=== PATIENT | female | born 1985 | race Caucasian/White ===

== ENCOUNTER → 2016-11-29 | Outpatient (CLI) | payer OTHER ==
--- NOTE | 2016-11-29 14:08 | CT ---
EXAMINATION TYPE: CT brain wo con DATE OF EXAM: 11/29/2016 COMPARISON: NONE HISTORY: Memory loss CT DLP: 943.9 mGycm. Automated Exposure Control for Dose Reduction was Utilized. TECHNIQUE: CT scan of the head is performed without contrast. FINDINGS: There is no acute intracranial hemorrhage, mass effect, or midline shift identified. The ventricles and sulci are within normal limits in size. The globes are intact and the visualized sin uses are clear. There is subcutaneous calcifications. No midline shift. Calvarium intact. Changes of chronic sinusitis. IMPRESSION: 1. No acute intracranial hemorrhage, mass effect, or midline shift is seen. If symptoms persist consi michael MRI.
== END | disposition home or self-care (01) ==
LOC: EEVIPCON 13:00 → RADCTMAIN 13:05
PROVIDERS: ATTEND Internal Medicine
DX: R41.3 Other amnesia (principal)
CPT/HCPCS: 70450

== ENCOUNTER 2018-02-15 05:50 | Inpatient (IN) | payer OTHER ==
[2018-02-15] MEDS ORDERED: SODIUM CHLORIDE 0.9% 2,000 ML IV STA (06:12)
--- NOTE | 2018-02-15 06:13 | ED ---
General Adult HPI - General Chief complaint: Recheck/Abnormal Lab/Rx Stated complaint: Abnormal Labs Time Seen by Provider: 02/15/18 06:11 Source: patient, EMS Mode of arrival: EMS Limitations: altered mental status - History of Present Illness Initial comments: Radha is a pleasant 32-year-old female with a history of stroke and memory impairment. She has brought to the ED today via EMS from a longterm facility where she currently resides. Outpatient labs revealed significant lab abnormalities. Patient has no history of kidney disease, her most recent labs in our computer system was in November 2017. Patient had labs drawn yesterday which revealed with critical abnormalities including a BUN of greater than 130 and a creatinine of greater than 13. Patient reports she is feeling okay, she was sleeping comfortably when she was woken from her sleep and transferred to the emergency department for evaluation. Patient reports that she wears a diaper she's had multiple wet diapers throughout the day and she still making plenty of urine. believe she's been eating and drinking okay that she can't really recall anything she ate or drink in the past day she states that she has had her meals at her facility so she is certain she is getting plenty of food and water. - Related Data Home Medications Medication Instructions Recorded Confirmed HYDROcodone/APAP 10-325MG [[place] 1 tab PO Q4H PRN 10/18/14 02/15/18 10-325] Acetaminophen Tab [Tylenol] 650 mg PO Q6H 02/15/18 02/15/18 Clopidogrel [Plavix] 75 mg PO DAILY 02/15/18 02/15/18 Ergocalciferol (Vitamin D2) 50,000 unit PO Q28H 02/15/18 02/15/18 [Drisdol] FLUoxetine HCL [PROzac] 20 mg PO HS PRN 02/15/18 02/15/18 Ibuprofen [Motrin Ib] 400 mg PO Q12HR PRN 02/15/18 02/15/18 Levothyroxine Sodium [Synthroid] 25 mcg PO DAILY 02/15/18 02/15/18 Loperamide [Imodium] 2 mg PO Q8HR PRN 02/15/18 02/15/18 Loperamide [Imodium] 4 mg PO DAILY PRN 02/15/18 02/15/18 Magnesium Hydroxide [Milk of 2,400 mg PO Q72H PRN 02/15/18 02/15/18 Magnesia] Melatonin 5 mg PO HS PRN 02/15/18 02/15/18 Midodrine HCl 5 mg PO TID@0800,1200,1900 02/15/18 02/15/18 Multivitamins, Thera [Multivitamin 1 tab PO DAILY 02/15/18 02/15/18 (formulary)] Sennosides [Senokot] 8.6 mg PO BID 02/15/18 02/15/18 clonazePAM [KlonoPIN] 0.5 mg PO BID PRN 02/15/18 02/15/18 clonazePAM [KlonoPIN] 1.5 mg PO HS PRN 02/15/18 02/15/18 Allergies Allergy/AdvReac Type Severity Reaction Status Date / Time aspirin Allergy Unknown Verified 02/15/18 07:56 gabapentin [From Neurontin] Allergy Unknown Verified 02/15/18 07:56 ibuprofen [From Motrin] Allergy Unknown Verified 02/15/18 07:56 sertraline HCl [From Zoloft] Allergy Unknown Verified 02/15/18 07:56 zolpidem tartrate Allergy Unknown Verified 02/15/18 07:56 [From Ambien] Review of Systems ROS Statement: Those systems with pertinent positive or pertinent negative responses have been documented in the HPI. ROS Other: All systems not noted in ROS Statement are negative. Past Medical History Past Medical History: Liver Disease Additional Past Medical History / Comment(s): morbid obesity, pancreatitis, History of Any Multi-Drug Resistant Organisms: None Reported Past Surgical History: Cholecystectomy Past Psychological History: Anxiety, Depression, Panic Disorder Smoking Status: Never smoker Past Alcohol Use History: Heavy Past Drug Use History: None Reported - Past Family History Father History Unknown: Yes Family Medical History: Cancer Additional Family Medical History / Comment(s): lung General Exam - General Exam Comments Initial Comments: Physical Exam GENERAL: Patient is well-developed and well-nourished. Patient is nontoxic and well- hydrated and is in no distress. HENT: Normocephalic, Atraumatic. EYES: PERRL, EOMI PULMONARY: Unlabored respirations. No audible rales rhonchi or wheezing was noted. CARDIOVASCULAR: There is a regular rate and rhythm without any murmurs gallops or rubs. ABDOMEN: Soft and nontender with normal bowel sounds. SKIN: Skin is clear with no lesions or rashes and otherwise unremarkable. : Deferred NEUROLOGIC: Alert and oriented to person and able to identify that she is in the hospital, able to identify where she was somewhat confused about date MUSCULOSKELETAL: Normal extremities with adequate strength and full range of motion. No lower extremity swelling or edema. No calf tenderness. PSYCHIATRIC: As only confused with poor every denies suicidal homicidal ideation Limitations: no limitations Limitations: altered mental status Course Vital Signs 02/15/18 02/15/18 06:02 06:33 Temperature 98.0 F Pulse Rate 114 H 115 H Respiratory 16 96 H Rate Blood Pressure 133/81 O2 Sat by Pulse 98 Oximetry EKG Findings - EKG Comments: EKG Findings:: EKG obtained at 6:38 AM, rate is 111 rhythm is sinus tachycardia versus normal axis normal intervals no acute ST elevations or depressions no evidence of acute ischemia or infarction. No significant T-wave abnormalities are peaking of T waves to suggest hyperkalemia. Medical Decision Making - Medical Decision Making The patient was seen and evaluated, history was obtained from the patient and EMS as well as review of medical record Review of outpatient labs do reveal patient has acute kidney failure with a BUN greater than 150 and a creatinine of 13 Repeat labs and IV fluids were ordered EKG with no EKG changes concerning for hyperkalemia Labs do again results with critical acute renal failure as well as hyperkalemia IV fluids continue to infuse next line patient care was discussed with nephrology on-call Dr. Bravo who recommends need IV fluids, hyperkalemia protocol, renal ultrasound, Rosado catheterization and urinalysis Patient care was discussed with patient's primary care physician Dr. Knight who accepts the admission with a consult to nephrology for acute renal failure - Lab Data Result diagrams: 02/15/18 06:26 02/15/18 06:26 Lab Results 02/15/18 02/15/18 02/15/18 Range/Units 06:26 06:26 06:26 WBC 13.3 H (3.8-10.6) k/uL RBC 3.74 L (3.80-5.40) m/uL Hgb 10.7 L (11.4-16.0) gm/dL Hct 34.8 (34.0-46.0) % MCV 93.2 (80.0-100.0) fL MCH 28.6 (25.0-35.0) pg MCHC 30.7 L (31.0-37.0) g/dL RDW 14.7 (11.5-15.5) % Plt Count 324 (150-450) k/uL Neutrophils % 85 % Lymphocytes % 9 % Monocytes % 3 % Eosinophils % 1 % Basophils % 0 % Neutrophils # 11.3 H (1.3-7.7) k/uL Lymphocytes # 1.2 (1.0-4.8) k/uL Monocytes # 0.4 (0-1.0) k/uL Eosinophils # 0.1 (0-0.7) k/uL Basophils # 0.0 (0-0.2) k/uL Hypochromasia Slight PT 9.8 (9.0-12.0) sec INR 0.9 (<1.2) APTT 23.7 (22.0-30.0) sec Sodium 139 (137-145) mmol/L Potassium 7.0 H* (3.5-5.1) mmol/L Chloride 109 H (98-107) mmol/L Carbon Dioxide 10 L (22-30) mmol/L Anion Gap 20 mmol/L BUN 150 H* (7-17) mg/dL Creatinine 15.42 H* (0.52-1.04) mg/dL Est GFR (CKD-EPI)AfAm 3 (>60 ml/min/1.73 sqM) Est GFR (CKD-EPI)NonAf 3 (>60 ml/min/1.73 sqM) Glucose 104 H (74-99) mg/dL Calcium 8.4 (8.4-10.2) mg/dL Total Bilirubin 0.5 (0.2-1.3) mg/dL AST 8 L (14-36) U/L ALT 18 (9-52) U/L Alkaline Phosphatase 99 (38-126) U/L Total Protein 6.8 (6.3-8.2) g/dL Albumin 3.2 L (3.5-5.0) g/dL Disposition Clinical Impression: Acute renal failure, Hyperkalemia Disposition: ADMITTED IP TO THIS HOSP Condition: Serious Is patient prescribed a controlled substance at d/c from ED?: No Referrals: Roberto Knight MD [Primary Care Provider] - 1-2 days
[2018-02-15 06:34] LABS: Basophils % (A) 0 %; Eosinophils # (A) 0.1 k/uL (0-0.7); Eosinophils % (A) 1 %; HCT 34.8 % (34.0-46.0); HGB 10.7 gm/dL (11.4-16.0); Hypochromasia Slight; Lymphocytes # (A) 1.2 k/uL (1.0-4.8); Lymphocytes % (A) 9 %; MCH 28.6 pg (25.0-35.0); MCHC 30.7 g/dL (31.0-37.0); MCV 93.2 fL (80.0-100.0); Mean Platelet Volume 7.4; Monocytes # (A) 0.4 k/uL (0-1.0); Monocytes % (A) 3 %; Neutrophils # (A) 11.3 k/uL (1.3-7.7); Neutrophils % (A) 85 %; Platelet Count 324 k/uL (150-450); RBC 3.74 m/uL (3.80-5.40); RDW 14.7 % (11.5-15.5); WBC 13.3 k/uL (3.8-10.6)
[2018-02-15 06:45] LABS: INR 0.9 (<1.2); Partial Thromboplastin Time 23.7 sec (22.0-30.0); Prothrombin Time 9.8 sec (9.0-12.0)
[2018-02-15 06:51] LABS: Albumin 3.2 g/dL (3.5-5.0); Calcium 8.4 mg/dL (8.4-10.2); Total Bilirubin 0.5 mg/dL (0.2-1.3); Total Protein 6.8 g/dL (6.3-8.2)
[2018-02-15] MEDS ORDERED: DEXTROSE 50%-WATER 50 ML SYRINGE IVP ONE (07:10)
[2018-02-15] MEDS ORDERED: ALBUTEROL NEB (CONC) 2.5 MG/0.5 ML INHALATION ONE (07:10)
[2018-02-15] MEDS ORDERED: SODIUM BICARB 8.4% 50 ML SYR (1 MEQ/ML) IV ONE (07:10)
[2018-02-15] MEDS ORDERED: INSULIN REGULAR 100 UNIT/ML VIAL IV ONE (07:10)
[2018-02-15 08:23] LABS: Appearance,Urine Turbid (Clear); Bacteria,Urine Occasional /hpf; Bilirubin,Urine Negative (Negative); Blood,Urine Large (Negative); Color,Urine Light Yellow; Glucose,Urine (UA) Negative (Negative); Ketones,Urine Trace (Negative); Leukocyte Esterase,Urine Large (Negative); Nitrite,Urine Negative (Negative); PH, Urine 6.5 (5.0-8.0); Protein,Urine 1+ (Negative); RBC,Urine 81 /hpf (0-5); Squamous Epithelial Cell,Urine 3 /hpf (0-4); Urobilinogen,Urine <2.0 mg/dL (<2.0); WBC,Urine >182 /hpf (0-5)
[2018-02-15] MEDS: LORazepam 2 MG/ML INJ IV PRN (08:52)
--- NOTE | 2018-02-15 11:34 | US ---
EXAMINATION TYPE: US renals and bladder DATE OF EXAM: 02/15/2018 COMPARISON: CT CLINICAL HISTORY: Pain. EC patient with abnormal labs per order; patient stated recently was in a com a, but does not know duration; prior left renal stone(s) per CT; HT 5'4", WT 251lbs. US exam is limited to rt renal and bladder assessment as patient asked Sliding Joint Maker to stop pressing f or left renal US due to pain with probe pressure. Pain also noted by patient when scanning right williamn ey. EXAM MEASUREMENTS: Right Kidney: 8.0 x 5.2 x 3.7 cm Left Kidney: unable to measure; exam stopped per patient request Post Void Residual Volume: not assessed as Rosado Catheter is noted within bladder. Right Kidney: multiple shadowing stones seen in upper and mid pole with largest stone area in upper t o mid pole =1.8 x 1.8 x 1.0cm. Left Kidney: limitedly seen due to rib interference and patient request to stop US due to pain. Bladder: Rosado Catheter is seen within bladder IMPRESSION: MARKEDLY LIMITED EXAMINATION DEMONSTRATING RIGHT-SIDED NEPHROLITHIASIS.
[2018-02-15] MEDS: SODIUM POLYSTYRENE SULFONATE 15 GM/60 ML BOTTLE PO SCH ×3 (12:15→21:48)
--- NOTE | 2018-02-15 12:25 | P.NPCON ---
History of Present Illness - Reason for Consult Consult date: 02/15/18 acute renal failure - Chief Complaint Acute kidney injury, chronic kidney disease - History of Present Illness This is a 32-year-old female seen in consultation because of acute kidney injury with an admission creatinine of 13 and a potassium of 7. She is a custodial resident and was brought in because of the abnormal lab. She was interviewed in the emergency room in the presence of her mom. Supposedly she is a custodial after having been sick in 2015 approximately. She suffered from lifelong agoraphobia supposedly and never left home. This is according to her mother. She was fairly sick and had multiple taps and requiring dialysis she was admitted to [facility] at the time. She had recurrent ascites. At the time there was question off alcohol-induced cirrhosis. Supposedly at this time she was on dialysis for a month but came off of it. The cause of this ascites and cirrhosis is not clear though. Her hepatitis panels are negative. Her medications from the custodial include nonsteroidals but I'm not sure whether she received any. No history of nausea vomiting diarrhea. She does complain of left flank pain but her history is somewhat unreliable. No history of hematuria bladder problems incontinence. No history of taking any herbal medications. Previous workup included CT scans of the abdomen because of a high CEA 125 of 711 in 2015. A [facility] consultation and surgical consultation deemed it to be from possible pancreatitis and not from ovarian cancer is on normal computed tomography scan at the time. Ultrasound of the kidneys at the time were unremarkable. Ultrasound done this morning showed right kidney at 8 cm the left kidney was not visualized but patient was not very cooperative. There are multiple stones seen in the right kidney but no obvious hydronephrosis on either side as mentioned. Is an incomplete ultrasound though. A urinalysis is remarkable for greater than 182 WBCs, RBCs or 81 protein is 1+. Past Medical History Past Medical History: Liver Disease Additional Past Medical History / Comment(s): morbid obesity, pancreatitis, History of Any Multi-Drug Resistant Organisms: None Reported Past Surgical History: Cholecystectomy Past Psychological History: Anxiety, Depression, Panic Disorder Smoking Status: Never smoker Past Alcohol Use History: Heavy Past Drug Use History: None Reported - Past Family History Father History Unknown: Yes Family Medical History: Cancer Additional Family Medical History / Comment(s): lung Medications and Allergies Home Medications Medication Instructions Recorded Confirmed Type HYDROcodone/APAP 10-325MG [[place] 1 tab PO Q4H PRN 10/18/14 02/15/18 History 10-325] Acetaminophen Tab [Tylenol] 650 mg PO Q6H 02/15/18 02/15/18 History Clopidogrel [Plavix] 75 mg PO DAILY 02/15/18 02/15/18 History Ergocalciferol (Vitamin D2) 50,000 unit PO Q28H 02/15/18 02/15/18 History [Drisdol] FLUoxetine HCL [PROzac] 20 mg PO HS PRN 02/15/18 02/15/18 History Ibuprofen [Motrin Ib] 400 mg PO Q12HR PRN 02/15/18 02/15/18 History Levothyroxine Sodium [Synthroid] 25 mcg PO DAILY 02/15/18 02/15/18 History Loperamide [Imodium] 2 mg PO Q8HR PRN 02/15/18 02/15/18 History Loperamide [Imodium] 4 mg PO DAILY PRN 02/15/18 02/15/18 History Magnesium Hydroxide [Milk of 2,400 mg PO Q72H PRN 02/15/18 02/15/18 History Magnesia] Melatonin 5 mg PO HS PRN 02/15/18 02/15/18 History Midodrine HCl 5 mg PO TID@0800,1200,1900 02/15/18 02/15/18 History Multivitamins, Thera [Multivitamin 1 tab PO DAILY 02/15/18 02/15/18 History (formulary)] Sennosides [Senokot] 8.6 mg PO BID 02/15/18 02/15/18 History clonazePAM [KlonoPIN] 0.5 mg PO BID PRN 02/15/18 02/15/18 History clonazePAM [KlonoPIN] 1.5 mg PO HS PRN 02/15/18 02/15/18 History Allergies Allergy/AdvReac Type Severity Reaction Status Date / Time aspirin Allergy Unknown Verified 02/15/18 07:56 gabapentin [From Neurontin] Allergy Unknown Verified 02/15/18 07:56 ibuprofen [From Motrin] Allergy Unknown Verified 02/15/18 07:56 sertraline HCl [From Zoloft] Allergy Unknown Verified 02/15/18 07:56 zolpidem tartrate Allergy Unknown Verified 02/15/18 07:56 [From Beronica] Physical Exam Vitals: Vital Signs Temp Pulse Resp BP Pulse Ox 02/15/18 10:15 111 H 02/15/18 10:07 109 H 02/15/18 09:57 110 H 18 131/82 97 02/15/18 06:33 115 H 96 H 02/15/18 06:02 98.0 F 114 H 16 133/81 98 Intake and Output 02/14/18 02/15/18 02/15/18 22:59 06:59 14:59 Output Total 25 Balance -25 Output: Urine 25 Uretheral (Rosado) 25 Other: Weight 114.124 kg She is awake alert cooperative but has poor memory. HEENT exam no JVP neck is supple no facial asymmetry. Pupils are equal. Neck is supple Lungs are clear to auscultation good air entry bilaterally Heart sounds are unremarkable for any murmur rub gallop but she has tachycardia Abdomen is obese protuberant with a pannus. Nontender. Extremity exam was trace edema Scars of self-inflicted wounds on the right side and left side laterally on her mid thighs with healed scars. Neurologically awake alert. Poor memory. She has some contractures of her hands she has foot drop bilaterally she is fairly weak unable to lift her feet off of her bed. According to her mom her mental status is about baseline. No asterixis is noted. Results - Lab Results Most recent lab results Calcium 8.4 mg/dL (8.4-10.2) 02/15/18 06:26 02/15/18 06:26 02/15/18 09:50 Assessment and Plan Plan: Impression. 1. Acute kidney injury possibly from nonsteroidal. Creatinine is 15.4 to. She has a Rosado catheter draining small amount of urine. Urinalysis suggestive of possible acute interstitial nephritis from nonsteroidals. Ultrasound was in complete exam because of lack of cooperation from the patient there is stones on the right side and a previous computed tomography scan in 2014 stone on the left side. No mention of hydronephrosis though. 2. Chronic kidney disease Baseline creatinine is about 1.3 dated 10/15/2017. Etiology is possibly nephrosclerosis from the acute kidney injury that required dialysis possibly in 2014 and did not recover completely. Her creatinine has been 1.2 on 06/14/2016. Prior creatinine to that office 2 years previously on 10/24/2014 and was 0.6. Multiple stones also could cause chronic kidney disease 3. [facility] resident, mentally handicapped, generalized weakness bedridden. 4. Multiple kidney stones possibly causing amount of chronic kidney disease 5. Obesity. 6. Previous history of alcohol is him for probably one year and there is demonstration of ascites on multiple CT scans and ultrasounds in 2015 and mention of cirrhosis. 7. High CEA 125, was 711 in 2015 with normal computed tomography scan was seen by gynecology and was deemed to be from possible pancreatitis. Recommendation. 1. Will continue to hydrate her with normal saline and see how she responds. 2. Avoid any nephrotoxic medication. 3. Check urine eosinophils 4. Start prednisone 20 mg twice a day with resumption of acute interstitial nephritis. 5. We'll try to get another ultrasound or computed tomography scan when she is more calm her to ensure there is no hydronephrosis. 6. Urine culture and cover with Cipro 500 daily until culture results are known. Thank you for this consultation and will continue to follow closely
[2018-02-15 13:11] VITALS: BMI 39.7
[2018-02-15] MEDS: SODIUM CHLORIDE 0.9% 1,000 ML IV SCH ×3 (14:10→21:48)
[2018-02-15] MEDS: predniSONE 20 MG TAB PO SCH ×2 (14:12→21:48)
--- NOTE | 2018-02-15 14:52 | P.HPIM ---
History of Present Illness H&P Date: 02/15/18 Radha Christensen is a 32 -year-old female resident of skilled nursing who was sent to [facility] emergency room due to significantly abnormal labs, patient stated that she had some episodes of vomiting in the last week or so she had a blood test at the skilled nursing that revealed elevated creatinine of 13 and elevated BUN at 150 she was transferred to emergency room repeat labs in the emergency room revealed evidence of a BUN of 150 creatinine 15.4 and potassium level of 7.0 patient was admitted to telemetry floor nephrology consult was requested. Patient has a known history of previous history of stroke with residual left sided weakness she resides at a skilled nursing she has mild chronic renal failure with baseline creatinine of 1.4 There is also history of liver cirrhosis with ascites requiring previous episodes of paracentesis. Past Medical History Past Medical History: CVA/TIA, Myocardial Infarction ([place]) Additional Past Medical History / Comment(s): morbid obesity, pancreatitis, history of coma - 10/24/14 - until end of december after suffering from a stroke. Last Myocardial Infarction Date:: 10/2014 History of Any Multi-Drug Resistant Organisms: None Reported Past Surgical History: Cholecystectomy Past Anesthesia/Blood Transfusion Reactions: No Reported Reaction Past Psychological History: Anxiety, Depression, Panic Disorder Smoking Status: Never smoker Past Alcohol Use History: Heavy Additional Past Alcohol Use History / Comment(s): patient smoked in high school Past Drug Use History: None Reported - Past Family History Father History Unknown: Yes Family Medical History: Cancer Additional Family Medical History / Comment(s): lung Medications and Allergies Home Medications Medication Instructions Recorded Confirmed Type HYDROcodone/APAP 10-325MG [[place] 1 tab PO Q4H PRN 10/18/14 02/15/18 History 10-325] Acetaminophen Tab [Tylenol] 650 mg PO Q6H 02/15/18 02/15/18 History Clopidogrel [Plavix] 75 mg PO DAILY 02/15/18 02/15/18 History Ergocalciferol (Vitamin D2) 50,000 unit PO Q28H 02/15/18 02/15/18 History [Drisdol] FLUoxetine HCL [PROzac] 20 mg PO HS PRN 02/15/18 02/15/18 History Ibuprofen [Motrin Ib] 400 mg PO Q12HR PRN 02/15/18 02/15/18 History Levothyroxine Sodium [Synthroid] 25 mcg PO DAILY 02/15/18 02/15/18 History Loperamide [Imodium] 2 mg PO Q8HR PRN 02/15/18 02/15/18 History Loperamide [Imodium] 4 mg PO DAILY PRN 02/15/18 02/15/18 History Magnesium Hydroxide [Milk of 2,400 mg PO Q72H PRN 02/15/18 02/15/18 History Magnesia] Melatonin 5 mg PO HS PRN 02/15/18 02/15/18 History Midodrine HCl 5 mg PO TID@0800,1200,1900 02/15/18 02/15/18 History Multivitamins, Thera [Multivitamin 1 tab PO DAILY 02/15/18 02/15/18 History (formulary)] Sennosides [Senokot] 8.6 mg PO BID 02/15/18 02/15/18 History clonazePAM [KlonoPIN] 0.5 mg PO BID PRN 02/15/18 02/15/18 History clonazePAM [KlonoPIN] 1.5 mg PO HS PRN 02/15/18 02/15/18 History Allergies Allergy/AdvReac Type Severity Reaction Status Date / Time aspirin Allergy Unknown Verified 02/15/18 07:56 ibuprofen [From Motrin] Allergy Unknown Verified 02/15/18 07:56 sertraline HCl [From Zoloft] Allergy Unknown Verified 02/15/18 07:56 zolpidem tartrate Allergy Unknown Verified 02/15/18 07:56 [From Ambien] gabapentin [From Neurontin] AdvReac Severe Unknown Verified 02/15/18 13:13 Physical Exam Vitals: Vital Signs Temp Pulse Pulse Resp BP BP Pulse Ox 02/15/18 12:53 98.5 F 128 H 18 125/81 93 L 02/15/18 12:21 97.9 F 120 H 18 115/81 95 02/15/18 10:15 111 H 02/15/18 10:07 109 H 02/15/18 09:57 110 H 18 131/82 97 02/15/18 06:33 115 H 96 H 02/15/18 06:02 98.0 F 114 H 16 133/81 98 Intake and Output 02/14/18 02/15/18 02/15/18 22:59 06:59 14:59 Intake Total 2000 Output Total 150 Balance 1850 Intake: Intake, IV Titration 2000 Amount Sodium Chloride 0.9% 2, 2000 000 ml @ 999 mls/hr IV . Q2H1M STA Rx#:[id number] Oral 0 Tube Feeding 0 Blood Product 0 Other 0 Output: Urine 150 Uretheral (Rosado) 25 Other: Weight 114.124 kg 105 kg HEENT head normocephalic and atraumatic Neck is supple no JVD no goiter no lymphadenopathy Chest exam reveals a few scattered rhonchi no wheezing Cardiac exam reveals regular heart sounds S1 and S2 no gallops no murmurs there is tachycardia Abdomen is soft nontender no organomegaly with normal bowel sounds Extremity exam reveals no edema no cyanosis or clubbing Neurological examination reveals left-sided weakness with contracture the left hand and left foot Results CBC & Chem 7: 02/15/18 06:26 02/15/18 09:50 Labs: Abnormal Lab Results - Last 24 Hours (Table) 02/15/18 02/15/18 02/15/18 Range/Units 06:26 06:26 07:25 WBC 13.3 H (3.8-10.6) k/uL RBC 3.74 L (3.80-5.40) m/uL Hgb 10.7 L (11.4-16.0) gm/dL MCHC 30.7 L (31.0-37.0) g/dL Neutrophils # 11.3 H (1.3-7.7) k/uL Potassium 7.0 H* (3.5-5.1) mmol/L Chloride 109 H (98-107) mmol/L Carbon Dioxide 10 L (22-30) mmol/L BUN 150 H* (7-17) mg/dL Creatinine 15.42 H* (0.52-1.04) mg/dL Glucose 104 H (74-99) mg/dL AST 8 L (14-36) U/L Albumin 3.2 L (3.5-5.0) g/dL Urine Appearance Turbid H (Clear) Urine Protein 1+ H (Negative) Urine Ketones Trace H (Negative) Urine Blood Large H (Negative) Ur Leukocyte Esterase Large H (Negative) Urine RBC 81 H (0-5) /hpf Urine WBC >182 H (0-5) /hpf Urine WBC Clumps Many H (None) /hpf Urine Bacteria Occasional H (None) /hpf 02/15/18 Range/Units 09:50 WBC (3.8-10.6) k/uL RBC (3.80-5.40) m/uL Hgb (11.4-16.0) gm/dL MCHC (31.0-37.0) g/dL Neutrophils # (1.3-7.7) k/uL Potassium 5.7 H (3.5-5.1) mmol/L Chloride (98-107) mmol/L Carbon Dioxide (22-30) mmol/L BUN (7-17) mg/dL Creatinine (0.52-1.04) mg/dL Glucose (74-99) mg/dL AST (14-36) U/L Albumin (3.5-5.0) g/dL Urine Appearance (Clear) Urine Protein (Negative) Urine Ketones (Negative) Urine Blood (Negative) Ur Leukocyte Esterase (Negative) Urine RBC (0-5) /hpf Urine WBC (0-5) /hpf Urine WBC Clumps (None) /hpf Urine Bacteria (None) /hpf Thrombosis Risk Factor Assmnt - Choose All That Apply Any of the Below Risk Factors Present?: Yes Each Factor Represents 1 point: Obesity (BMI >25) Other Risk Factors: Yes Each Risk Factor Represents 2 Points: Patient confined to bed Thrombosis Risk Factor Assessment Total Risk Factor Score: 3 Thrombosis Risk Factor Assessment Level: Moderate Risk Assessment and Plan Plan: #1 acute renal failure #2 previous history of stroke #3 previous history of liver cirrhosis #4 anxiety disorder #5 underlying history of hypothyroidism #6 evidence of urinary tract infection on presentation #7 evidence of kidney stones on the right kidney on ultrasound done today however ultrasound was very limited it was stopped due to patient request due to pain there was no clear evidence of hydronephrosis At this time patient is admitted to telemetry floor she is receiving IV fluid She is also receiving Kayexalate for management of hyperkalemia Nephrology consult following we will recheck labs in a.m. Patient was started on empirically on oral prednisone she was also started on Cipro for management of urinary tract infection Will follow closely prognosis is guarded
[2018-02-15] MEDS: CIPROFLOXACIN HCL 500 MG TAB PO SCH (16:18)
[2018-02-15] MEDS: HYDROmorphone 0.5 MG/0.5 ML SYRINGE IVP PRN (16:37)
[2018-02-16] MEDS: HYDROcodone/APAP 10-325MG 1 EACH TAB PO PRN ×3 (02:03→18:11)
[2018-02-16] MEDS: SODIUM CHLORIDE 0.9% 1,000 ML IV SCH ×4 (04:55→21:46)
[2018-02-16] MEDS: predniSONE 20 MG TAB PO SCH ×2 (07:38→21:46)
[2018-02-16] MEDS: CIPROFLOXACIN HCL 500 MG TAB PO SCH (07:38)
[2018-02-16 08:49] LABS: Calcium 7.6 mg/dL (8.4-10.2)
[2018-02-16 08:58] LABS: HCT 30.3 % (34.0-46.0); Hypochromasia Marked; MCH 29.3 pg (25.0-35.0); MCHC 30.3 g/dL (31.0-37.0); MCV 96.7 fL (80.0-100.0); Mean Platelet Volume 7.3; Platelet Count 249 k/uL (150-450); RBC 3.14 m/uL (3.80-5.40); RDW 14.7 % (11.5-15.5); WBC 7.7 k/uL (3.8-10.6)
[2018-02-16] MEDS ORDERED: ENOXAPARIN 40 MG/0.4 ML SYRINGE SQ SCH (09:00)
[2018-02-16 09:07] LABS: HGB 9.2 gm/dL (11.4-16.0)
--- NOTE | 2018-02-16 09:17 | P.PN ---
Subjective Progress Note Date: 02/16/18 Principal diagnosis: This is a 32-year-old female seen in consultation because of acute kidney injury with an admission creatinine of 15 and a potassium of 7. She is a intermediate resident and was brought in because of the abnormal lab. Her acute kidney injury is deemed to be possibly from nonsteroidal use and or acute interstitial nephritis. Workup showed an Ultrasound done showed right kidney at 8 cm the left kidney was not visualized but patient was not very cooperative. There are multiple stones seen in the right kidney but no obvious hydronephrosis on either side as mentioned. Is an incomplete ultrasound though. A urinalysis is remarkable for greater than 182 WBCs, RBCs or 81 protein is 1+. She was started on IV fluids and prednisone 20 mg twice a day by mouth. This morning she is awake alert but has mild asterixis. She is able to tell me this is 2017 so she is off by year. Unable to tell me where she is. Her baseline mental has his somewhat unpredictable and she has had lifelong problems. History of present illness; She was interviewed in the emergency room in the presence of her mom. Supposedly she is a intermediate after having been sick in 2015 approximately. She suffered from lifelong agoraphobia supposedly and never left home. This is according to her mother. She was fairly sick and had multiple taps and requiring dialysis she was admitted to [facility] at the time. She had recurrent ascites. At the time there was question off alcohol-induced cirrhosis. Supposedly at this time she was on dialysis for a month but came off of it. The cause of this ascites and cirrhosis is not clear though. Her hepatitis panels were negative. Her medications from the intermediate include nonsteroidals but I'm not sure whether she received any. No history of nausea vomiting diarrhea. She does complain of left flank pain but her history is somewhat unreliable. No history of hematuria bladder problems incontinence. No history of taking any herbal medications. Previous workup included CT scans of the abdomen because of a high CEA 125 of 711 in 2014. A [employer] consultation and surgical consultation deemed it to be from possible pancreatitis and not from ovarian cancer is on normal computed tomography scan at the time. Ultrasound of the kidneys at the time were unremarkable. Objective - Vital Signs Vital signs: Vital Signs Temp 97.7 F 02/16/18 07:36 Pulse 80 02/16/18 07:36 Resp 18 02/16/18 07:46 BP 118/75 02/16/18 07:36 Pulse Ox 95 02/16/18 07:36 Intake & Output 02/15/18 02/16/18 02/16/18 18:59 06:59 18:59 Intake Total 2222 450 120 Output Total 150 325 Balance 2072 125 120 Weight 105 kg 105.5 kg Intake: Intake, IV Titration 2000 450 Amount Sodium Chloride 0.9% 1, 450 000 ml @ 150 mls/hr IV . Q6H40M WILDER Rx#:[id number] Sodium Chloride 0.9% 2, 2000 000 ml @ 999 mls/hr IV . Q2H1M STA Rx#:[id number] Oral 222 120 Tube Feeding 0 Blood Product 0 Other 0 Output: Urine 150 325 Uretheral (Rosado) 25 Other: Voiding Method Indwelling Catheter Indwelling Catheter Indwelling Catheter On examination she is arousable, responds. She is disoriented. HEENT exam no JVP neck is supple no facial asymmetry Heart sounds are unremarkable for any murmur rub gallop. Lungs are clear to auscultation fair air entry bilaterally Abdomen soft nontender obese. Extremity exam was no edema Neurologically was sleepy this morning but arousable and was able to talk but she is disoriented and has mild asterixis. - Labs CBC & Chem 7: 02/16/18 06:57 02/15/18 09:50 Labs: Abnormal Lab Results - Last 24 Hours (Table) 02/15/18 02/16/18 Range/Units 09:50 06:57 RBC 3.14 L (3.80-5.40) m/uL Hgb 9.2 L D (11.4-16.0) gm/dL Hct 30.3 L (34.0-46.0) % MCHC 30.3 L (31.0-37.0) g/dL Potassium 5.7 H (3.5-5.1) mmol/L Microbiology - Last 24 Hours (Table) 02/15/18 13:51 Urine Culture - Preliminary Urine,Catheterized Assessment and Plan Plan: Impression. 1. Acute kidney injury possibly from nonsteroidal. Creatinine is 15.4 . She has a Rosado catheter draining small amount of urine. Urinalysis suggestive of possible acute interstitial nephritis from nonsteroidals. Ultrasound was in complete exam because of lack of cooperation from the patient there is stones on the right side and a previous computed tomography scan in 2015 stone on the left side. No mention of hydronephrosis though. 2. Chronic kidney disease Baseline creatinine is about 1.3 dated 10/15/2017. Etiology is possibly nephrosclerosis from the acute kidney injury that required dialysis possibly in 2014 and did not recover completely. Her creatinine has been 1.2 on 06/14/2016. Prior creatinine to that office 2 years previously on 10/24/2014 and was 0.6. Multiple stones also could cause chronic kidney disease 3. detention resident, mentally handicapped, generalized weakness bedridden. 4. Multiple kidney stones possibly causing amount of chronic kidney disease 5. Obesity. 6. Previous history of alcohol is him for probably one year and there is demonstration of ascites on multiple CT scans and ultrasounds in 2015 and mention of cirrhosis. 7. High CEA 125, was 711 in 2015 with normal computed tomography scan was seen by gynecology and was deemed to be from possible pancreatitis. Recommendation. 1. She may require dialysis today. I'm waiting for the labs and this morning. It there is a trend towards improvement I will hold it off. In the meantime Will continue to hydrate her with normal saline and see how she responds. 2. Avoid any nephrotoxic medication. 3. Check urine eosinophils 4. Continue prednisone 20 mg twice a day 5. We'll try to get another ultrasound or computed tomography scan when she is more calm her to ensure there is no hydronephrosis. 6. Continue Cipro until results of urine cultures are available 7. Urine protein creatinine ratio Thank you for this consultation and will continue to follow closely
[2018-02-16] MEDS ORDERED: SODIUM BICARB 8.4% 50 ML SYR (1 MEQ/ML) IV ONE (09:50)
--- NOTE | 2018-02-16 10:37 | CT ---
EXAMINATION TYPE: CT abdomen pelvis wo con DATE OF EXAM: 02/16/2018 COMPARISON: Previous study dated 10/18/2014 HISTORY: Acute renal failure CT DLP: 1406 mGycm Automated exposure control for dose reduction was used. FINDINGS: There is atelectatic change at the lung bases. There is a tiny left pleural effusion. There is no pericardial fluid identified. The heart is mildly enlarged. Within the abdomen, the patient's ascites has resolved. The liver is mildly prominent measuring 19 cm . The spleen is upper limits of normal in size measuring 13 cm. The gallbladder has been removed. Both adrenal glands appear normal. There are innumerable bilateral nonobstructing renal calculi. The right kidney is small measuring 7.1 cm. The left kidney measures 9.6 cm in length. There is mild hydronephrosis on the left. There is a 1.2 x 0.8 cm calculus in the proximal left ureter. The pancreas is poorly visualized. There is no significant retroperitoneal, iliac or inguinal adenopathy. Both the uterus and ovaries are normal. There is a Rosado catheter within the bladder. There is no significant diverticular change and there is no radiographic evidence of diverticulitis. The appendix is normal. Small bowel loops are of normal caliber. There is no free fluid and no free air. No osseous lesion is seen. IMPRESSION: 1. 1.2 X 0.8 CM PROXIMAL LEFT URETERIC CALCULUS CAUSING MILD TO MODERATE HYDRONEPHROSIS ON THE LEFT. 2. ATROPHY OF THE RIGHT KIDNEY. 3. INNUMERABLE NONOBSTRUCTING CALCULI. 4. TINY LEFT PLEURAL EFFUSION. 5. TINY LEFT PLEURAL EFFUSION. 6. MILD CARDIOMEGALY. 7. HEPATOMEGALY AND BORDERLINE SPLENOMEGALY.
[2018-02-16 11:11] LABS: Glucose,Whole Blood 160 mg/dL (75-99)
[2018-02-16] MEDS: INSULIN ASPART 100 UNIT/ML 1 ML 10 ML VIAL SQ SCH ×3 (11:30→21:46)
[2018-02-16] MEDS: HYDROmorphone 0.5 MG/0.5 ML SYRINGE IVP PRN (13:49)
--- NOTE | 2018-02-16 13:57 | P.PN ---
Subjective Progress Note Date: 02/16/18 Radha Christensen is a 32 -year-old female resident of care home who was sent to [facility] emergency room due to significantly abnormal labs, patient stated that she had some episodes of vomiting in the last week or so she had a blood test at the care home that revealed elevated creatinine of 13 and elevated BUN at 150 she was transferred to emergency room repeat labs in the emergency room revealed evidence of a BUN of 150 creatinine 15.4 and potassium level of 7.0 patient was admitted to telemetry floor nephrology consult was requested. Patient has a known history of previous history of stroke with residual left sided weakness she resides at a care home she has mild chronic renal failure with baseline creatinine of 1.4 There is also history of liver cirrhosis with ascites requiring previous episodes of paracentesis. On 02/16/2018 patient is alert and oriented 3 in no apparent distress computed tomography scan of the abdomen and pelvis was done and revealed a proximal left ureteric calculus causing left sided hydronephrosis with evidence of atrophy of the right kidney. Urology consultation was requested Dr. Charles aware, at this time trying to obtain consent from legal guardian to proceed with cystoscopy and left ureteral stent placement, clinically patient is stable and she is alert and oriented in no apparent distress she is complaining of abdominal discomfort otherwise no complaints at this time Objective - Vital Signs Vital signs: Vital Signs Temp 97.7 F 02/16/18 07:36 Pulse 80 02/16/18 07:36 Resp 18 02/16/18 07:46 BP 118/75 02/16/18 07:36 Pulse Ox 95 02/16/18 07:36 Intake & Output 02/15/18 02/16/18 02/16/18 18:59 06:59 18:59 Intake Total 2222 450 2480 Output Total 150 325 375 Balance 2072 125 2105 Weight 105 kg 105.5 kg Intake: Intake, IV Titration 1999 450 2100 Amount Sodium Chloride 0.9% 1, 450 2100 000 ml @ 150 mls/hr IV . Q6H40M WILDER Rx#:[id number] Sodium Chloride 0.9% 2, 1999 000 ml @ 999 mls/hr IV . Q2H1M STA Rx#:[id number] Oral 222 380 Tube Feeding 0 Blood Product 0 Other 0 Output: Urine 150 325 375 Uretheral (Rosado) 25 Other: Voiding Method Indwelling Catheter Indwelling Catheter Indwelling Catheter - Exam HEENT head normocephalic and atraumatic Neck is supple no JVD no goiter no lymphadenopathy Chest exam reveals a few scattered rhonchi no wheezing Cardiac exam reveals regular heart sounds S1 and S2 no gallops no murmurs there is tachycardia Abdomen is soft nontender no organomegaly with normal bowel sounds Extremity exam reveals no edema no cyanosis or clubbing Neurological examination reveals left-sided weakness with contracture the left hand and left foot - Labs CBC & Chem 7: 02/16/18 06:57 02/16/18 06:57 Labs: Abnormal Lab Results - Last 24 Hours (Table) 02/16/18 02/16/18 02/16/18 Range/Units 06:57 06:57 06:57 RBC 3.14 L (3.80-5.40) m/uL Hgb 9.2 L D (11.4-16.0) gm/dL Hct 30.3 L (34.0-46.0) % MCHC 30.3 L (31.0-37.0) g/dL Potassium 6.0 H (3.5-5.1) mmol/L Chloride 114 H (98-107) mmol/L Carbon Dioxide 11 L (22-30) mmol/L BUN 139 H* (7-17) mg/dL Creatinine 13.35 H* (0.52-1.04) mg/dL Glucose 215 H (74-99) mg/dL POC Glucose (mg/dL) (75-99) mg/dL Calcium 7.6 L (8.4-10.2) mg/dL Phosphorus 8.8 H (2.5-4.5) mg/dL U Random Total Protein (<12) mg/dL 02/16/18 02/16/18 Range/Units 09:45 11:09 RBC (3.80-5.40) m/uL Hgb (11.4-16.0) gm/dL Hct (34.0-46.0) % MCHC (31.0-37.0) g/dL Potassium (3.5-5.1) mmol/L Chloride (98-107) mmol/L Carbon Dioxide (22-30) mmol/L BUN (7-17) mg/dL Creatinine (0.52-1.04) mg/dL Glucose (74-99) mg/dL POC Glucose (mg/dL) 160 H (75-99) mg/dL Calcium (8.4-10.2) mg/dL Phosphorus (2.5-4.5) mg/dL U Random Total Protein 106 H (<12) mg/dL Microbiology - Last 24 Hours (Table) 02/15/18 13:51 Urine Culture - Preliminary Urine,Catheterized Assessment and Plan Plan: #1 acute renal failure, with minimal improvement since yesterday, creatinine still elevated at 13.35 computed tomography scan of abdomen and pelvis reveals evidence of large left ureteral calculus with hydronephrosis urology consult requested Dr Charles is aware, at this time trying to locate patient legal guardian to obtain consent for cystoscopy with left ureteral stent placement #2 previous history of stroke #3 previous history of liver cirrhosis #4 anxiety disorder #5 underlying history of hypothyroidism #6 evidence of urinary tract infection on presentation #7 evidence of kidney stones on the right kidney on ultrasound done today however ultrasound was very limited it was stopped due to patient request due to pain there was no clear evidence of hydronephrosis At this time patient is admitted to telemetry floor she is receiving IV fluid She is also receiving Kayexalate for management of hyperkalemia Nephrology consult following we will recheck labs in a.m. Patient was started on empirically on oral prednisone she was also started on Cipro for management of urinary tract infection Will follow closely prognosis is guarded
[2018-02-16] MEDS: SODIUM BICARBONATE TAB 650 MG TAB PO SCH ×3 (14:40→21:46)
[2018-02-16 16:30] LABS: Glucose,Whole Blood 158 mg/dL (75-99)
[2018-02-16 16:36] LABS: Calcium 7.5 mg/dL (8.4-10.2)
[2018-02-16 16:45] LABS: Phosphorus 9.2 mg/dL (2.5-4.5)
[2018-02-16 16:46] LABS: Potassium 6.4 mmol/L (3.5-5.1)
[2018-02-16] MEDS ORDERED: DEXTROSE 50%-WATER 50 ML SYRINGE IVP STA (17:16)
[2018-02-16] MEDS ORDERED: FUROSEMIDE 10 MG/ML 10 ML VIAL IV STA (17:16)
[2018-02-16] MEDS ORDERED: INSULIN REGULAR 100 UNIT/ML VIAL IV ONE (17:17)
--- NOTE | 2018-02-16 19:29 | P.GSCN ---
History of Present Illness Consult date: 02/16/18 Reason for Consult: Left Hydronephrosis Requesting physician: Roberto Knight History of present illness: 32 yo WFwith no prior history of urolithiasis, admitted with renal failure. She was in renal failure several years ago, requiring dialysis. She was drowsy when I saw her earlier today and the history is thus somewhat incomplete. She also reportedly has a history of cirrhosis, for which she has undergone paracentesis. Review of Systems - Constitutional Denies chills, Denies fever - Gastrointestinal Denies nausea, Denies vomiting - Genitourinary Genitourinary: Reports flank pain Past Medical History Past Medical History: CVA/TIA, Myocardial Infarction ([place]) Additional Past Medical History / Comment(s): morbid obesity, pancreatitis, history of coma - 10/24/14 - until end of december after suffering from a stroke. Last Myocardial Infarction Date:: 10/2014 History of Any Multi-Drug Resistant Organisms: None Reported Past Surgical History: Cholecystectomy Past Anesthesia/Blood Transfusion Reactions: No Reported Reaction Past Psychological History: Anxiety, Depression, Panic Disorder Smoking Status: Never smoker Past Alcohol Use History: Heavy Additional Past Alcohol Use History / Comment(s): patient smoked in high school Past Drug Use History: None Reported - Past Family History Father History Unknown: Yes Family Medical History: Cancer Additional Family Medical History / Comment(s): lung Medications and Allergies Home Medications Medication Instructions Recorded Confirmed Type HYDROcodone/APAP 10-325MG [Keenes 1 tab PO Q4H PRN 10/18/14 02/15/18 History 10-325] Acetaminophen Tab [Tylenol] 650 mg PO Q6H 02/15/18 02/15/18 History Clopidogrel [Plavix] 75 mg PO DAILY 02/15/18 02/15/18 History Ergocalciferol (Vitamin D2) 50,000 unit PO Q28H 02/15/18 02/15/18 History [Drisdol] FLUoxetine HCL [PROzac] 20 mg PO HS PRN 02/15/18 02/15/18 History Ibuprofen [Motrin Ib] 400 mg PO Q12HR PRN 02/15/18 02/15/18 History Levothyroxine Sodium [Synthroid] 25 mcg PO DAILY 02/15/18 02/15/18 History Loperamide [Imodium] 2 mg PO Q8HR PRN 02/15/18 02/15/18 History Loperamide [Imodium] 4 mg PO DAILY PRN 02/15/18 02/15/18 History Magnesium Hydroxide [Milk of 2,400 mg PO Q72H PRN 02/15/18 02/15/18 History Magnesia] Melatonin 5 mg PO HS PRN 02/15/18 02/15/18 History Midodrine HCl 5 mg PO TID@0800,1200,1900 02/15/18 02/15/18 History Multivitamins, Thera [Multivitamin 1 tab PO DAILY 02/15/18 02/15/18 History (formulary)] Sennosides [Senokot] 8.6 mg PO BID 02/15/18 02/15/18 History clonazePAM [KlonoPIN] 0.5 mg PO BID PRN 02/15/18 02/15/18 History clonazePAM [KlonoPIN] 1.5 mg PO HS PRN 02/15/18 02/15/18 History Allergies Allergy/AdvReac Type Severity Reaction Status Date / Time aspirin Allergy Unknown Verified 02/15/18 07:56 ibuprofen [From Motrin] Allergy Unknown Verified 02/15/18 07:56 sertraline HCl [From Zoloft] Allergy Unknown Verified 02/15/18 07:56 zolpidem tartrate Allergy Unknown Verified 02/15/18 07:56 [From Ambien] gabapentin [From Neurontin] AdvReac Severe Unknown Verified 02/15/18 13:13 Surgical - Exam Vital Signs Temp Pulse Resp BP Pulse Ox 98.0 F 114 H 16 133/81 98 02/15/18 06:02 02/15/18 06:02 02/15/18 06:02 02/15/18 06:02 02/15/18 06:02 - General well developed, well nourished, no distress - Respiratory normal respiratory effort - Abdomen Abdomen: soft, non tender, no guarding, no rigid, no rebound - Psychiatric oriented to time, oriented to person, oriented to place, speech is normal, memory intact Results - Labs 02/16/18 06:57 02/16/18 15:39 Abnormal Lab Results - Last 24 Hours (Table) 02/16/18 02/16/18 02/16/18 Range/Units 06:57 06:57 06:57 RBC 3.14 L (3.80-5.40) m/uL Hgb 9.2 L D (11.4-16.0) gm/dL Hct 30.3 L (34.0-46.0) % MCHC 30.3 L (31.0-37.0) g/dL Potassium 6.0 H (3.5-5.1) mmol/L Chloride 114 H (98-107) mmol/L Carbon Dioxide 11 L (22-30) mmol/L BUN 139 H* (7-17) mg/dL Creatinine 13.35 H* (0.52-1.04) mg/dL Glucose 215 H (74-99) mg/dL POC Glucose (mg/dL) (75-99) mg/dL Calcium 7.6 L (8.4-10.2) mg/dL Phosphorus 8.8 H (2.5-4.5) mg/dL U Random Total Protein (<12) mg/dL 02/16/18 02/16/18 02/16/18 Range/Units 09:45 11:09 15:39 RBC (3.80-5.40) m/uL Hgb (11.4-16.0) gm/dL Hct (34.0-46.0) % MCHC (31.0-37.0) g/dL Potassium 6.4 H* (3.5-5.1) mmol/L Chloride 115 H (98-107) mmol/L Carbon Dioxide 13 L (22-30) mmol/L BUN 138 H* (7-17) mg/dL Creatinine 12.28 H* (0.52-1.04) mg/dL Glucose 158 H (74-99) mg/dL POC Glucose (mg/dL) 160 H (75-99) mg/dL Calcium 7.5 L (8.4-10.2) mg/dL Phosphorus 9.2 H* (2.5-4.5) mg/dL U Random Total Protein 106 H (<12) mg/dL 02/16/18 Range/Units 16:22 RBC (3.80-5.40) m/uL Hgb (11.4-16.0) gm/dL Hct (34.0-46.0) % MCHC (31.0-37.0) g/dL Potassium (3.5-5.1) mmol/L Chloride (98-107) mmol/L Carbon Dioxide (22-30) mmol/L BUN (7-17) mg/dL Creatinine (0.52-1.04) mg/dL Glucose (74-99) mg/dL POC Glucose (mg/dL) 158 H (75-99) mg/dL Calcium (8.4-10.2) mg/dL Phosphorus (2.5-4.5) mg/dL U Random Total Protein (<12) mg/dL Microbiology - Last 24 Hours (Table) 02/15/18 13:51 Urine Culture - Preliminary Urine,Catheterized Diabetes panel 02/16/18 02/16/18 Range/Units 06:57 15:39 Sodium 141 142 (137-145) mmol/L Potassium 6.0 H 6.4 H* (3.5-5.1) mmol/L Chloride 114 H 115 H (98-107) mmol/L Carbon Dioxide 11 L 13 L (22-30) mmol/L BUN 139 H* 138 H* (7-17) mg/dL Creatinine 13.35 H* 12.28 H* (0.52-1.04) mg/dL Glucose 215 H 158 H (74-99) mg/dL Calcium 7.6 L 7.5 L (8.4-10.2) mg/dL Calcium panel 02/16/18 02/16/18 02/16/18 Range/Units 06:57 06:57 15:39 Calcium 7.6 L 7.5 L (8.4-10.2) mg/dL Phosphorus 8.8 H 9.2 H* (2.5-4.5) mg/dL Pituitary panel 02/16/18 02/16/18 Range/Units 06:57 15:39 Sodium 141 142 (137-145) mmol/L Potassium 6.0 H 6.4 H* (3.5-5.1) mmol/L Chloride 114 H 115 H (98-107) mmol/L Carbon Dioxide 11 L 13 L (22-30) mmol/L BUN 139 H* 138 H* (7-17) mg/dL Creatinine 13.35 H* 12.28 H* (0.52-1.04) mg/dL Glucose 215 H 158 H (74-99) mg/dL Calcium 7.6 L 7.5 L (8.4-10.2) mg/dL Adrenal panel 02/16/18 02/16/18 Range/Units 06:57 15:39 Sodium 141 142 (137-145) mmol/L Potassium 6.0 H 6.4 H* (3.5-5.1) mmol/L Chloride 114 H 115 H (98-107) mmol/L Carbon Dioxide 11 L 13 L (22-30) mmol/L BUN 139 H* 138 H* (7-17) mg/dL Creatinine 13.35 H* 12.28 H* (0.52-1.04) mg/dL Glucose 215 H 158 H (74-99) mg/dL Calcium 7.6 L 7.5 L (8.4-10.2) mg/dL - Imaging CT scan - abdomen: report reviewed, image reviewed Assessment and Plan (1) Calculus of ureter Current Visit: Yes Status: Acute Code(s): N20.1 - CALCULUS OF URETER SNOMED Code(s): 14694824 (2) Hydronephrosis with renal and ureteral calculus obstruction Current Visit: Yes Status: Acute Code(s): N13.2 - HYDRONEPHROSIS WITH RENAL AND URETERAL CALCULOUS OBSTRUCTION SNOMED Code(s): 229897487 (3) UTI (urinary tract infection) Current Visit: Yes Status: Acute Code(s): N39.0 - URINARY TRACT INFECTION, SITE NOT SPECIFIED SNOMED Code(s): 25472189 Plan: The patient's right kidney is atrophic. Her left kidney is obstructed by a 12x8 mm calculus at the left UPJ. I was unable to reach her mother (guardian) earlier today for stent placement consent. I was finally able to reach her and discuss with her the rationale for left ureteral stent insertion. The obstructing calculus is likely at least partially responsible for the renal failure, though her baseline renal function is unknown. Additionally, she has hyperkalemia and a urine culture shows gram negative bacilli. I reviewed with her mother potential risks associated with stent insertion, including anesthesia , ureteral injury, and inability to successfully place a stent. I also explained that she will require elective removal of her calculus at a later date , once her infection has cleared and her condition has stabilized. Time with Patient: Greater than 30
[2018-02-16 20:00] LABS: Glucose,Whole Blood 201 mg/dL (75-99)
[2018-02-16] MEDS ORDERED: ONDANSETRON 4 MG/2 ML VIAL ONE (20:12)
[2018-02-16] MEDS ORDERED: MIDAZOLAM 2 MG/2 ML VIAL ONE (20:12)
[2018-02-16] MEDS ORDERED: GLYCOPYRROLATE 0.2 MG/ML 2 ML VIAL ONE (20:12)
[2018-02-16] MEDS ORDERED: LIDOCAINE 1% INJ 10MG/ML (20 ML MDV) ONE (20:12)
[2018-02-16] MEDS ORDERED: NEOSTIGMINE 1 MG/ML 10 ML VIAL ONE (20:12)
[2018-02-16] MEDS ORDERED: ROCURONIUM BROMIDE 10 MG/ML 10 ML VIAL IV ONE (20:12)
[2018-02-16] MEDS ORDERED: PROPOFOL 10 MG/ML 20 ML VIAL IV ONE (20:12)
[2018-02-16] MEDS ORDERED: fentaNYL (PF) 50 MCG/ML 2 ML AMP ONE (20:12)
[2018-02-16] MEDS ORDERED: SODIUM CHLORIDE 0.9% 1,000 ML IV ONE (20:15)
[2018-02-16 20:29] LABS: Calcium 7.7 mg/dL (8.4-10.2); Phosphorus 8.7 mg/dL (2.5-4.5); Potassium 5.6 mmol/L (3.5-5.1)
--- NOTE | 2018-02-16 20:49 | P.OP ---
Date of Procedure: 02/16/18 Preoperative Diagnosis: Left hydronephrosis secondary to left UPJ calculus Postoperative Diagnosis: Same, left pyonephrosis Procedure(s) Performed: Cystoscopy, left ureteral stent insertion Anesthesia: GUIA Surgeon: Mac Charles Estimated Blood Loss (ml): 0 IV fluids (ml): 300 Pathology: none sent Condition: stable Disposition: PACU Indications for Procedure: The patient is a 32-year-old white female with a complicated medical history. Her right kidney is atrophic. Her left kidney is obstructed by a 12x8 mm calculus at the left UPJ. The obstructing calculus is likely at least partially responsible for the renal failure, though her baseline renal function is unknown. Additionally, she has hyperkalemia and a urine culture shows gram negative bacilli. She now comes for left ureteral stent placement. Operative Findings: Several tiny calculi are seen on the bladder. The left UPJ calculus is not seen on fluoroscopy. Purulent urine drains from the left renal pelvis. Description of Procedure: The patient was taken to the operating room and placed in the dorsolithotomy position, with legs supported in Rocky stirrups. The external genitalia was prepped and draped sterilely. The 30 lens was used to introduce the 22-Martiniquais Stortz cystoscopic sheath through the urethra and into the bladder under direct vision. The bladder was examined in its entirety. Both ureteral orifices were of normal anatomic location and configuration. No tumors or foreign bodies were seen. There is evidence of patchy erythema, consistent with cystitis. An angle-tip 0.035 inch Glidewire was passed through the cystoscope. The left ureteral orifice was cannulated, and the Glidewire was slowly advanced beyond the calculus and into the renal pelvis. A 24 cm, 6-Martiniquais double-J ureteral stent was placed over the wire. Proper stent positioning was verified fluoroscopically and endoscopically. Purulent urine drained through the stent. With the beak of the cystoscope immediately adjacent to the distal end of the stent, was sent for culture and sensitivity. The cystoscope was removed, and the Rosado catheter was replaced. The patient tolerated the procedure well was taken to the recovery room in stable condition.
[2018-02-16 21:25] LABS: Glucose,Whole Blood 141 mg/dL (75-99)
[2018-02-17] MEDS: HYDROcodone/APAP 10-325MG 1 EACH TAB PO PRN ×5 (02:14→23:30)
[2018-02-17] MEDS: LORazepam 2 MG/ML INJ IV PRN (03:52)
[2018-02-17 05:43] LABS: Glucose,Whole Blood 225 mg/dL (75-99)
[2018-02-17] MEDS: SODIUM CHLORIDE 0.9% 1,000 ML IV SCH (06:27)
[2018-02-17 06:42] LABS: Basophils % (A) 0 %; Eosinophils % (A) 0 %; HCT 30.4 % (34.0-46.0); HGB 9.2 gm/dL (11.4-16.0); Hypochromasia Marked; Lymphocytes # (A) 0.4 k/uL (1.0-4.8); Lymphocytes % (A) 4 %; MCH 28.9 pg (25.0-35.0); MCHC 30.3 g/dL (31.0-37.0); MCV 95.4 fL (80.0-100.0); Mean Platelet Volume 7.2; Monocytes # (A) 0.2 k/uL (0-1.0); Monocytes % (A) 3 %; Neutrophils # (A) 8.1 k/uL (1.3-7.7); Neutrophils % (A) 92 %; Platelet Count 290 k/uL (150-450); RBC 3.19 m/uL (3.80-5.40); WBC 8.7 k/uL (3.8-10.6)
[2018-02-17] MEDS: INSULIN ASPART 100 UNIT/ML 1 ML 10 ML VIAL SQ SCH ×4 (06:50→23:25)
[2018-02-17 06:56] LABS: Albumin 2.7 g/dL (3.5-5.0); Calcium 7.4 mg/dL (8.4-10.2); Potassium 5.7 mmol/L (3.5-5.1); Total Bilirubin 0.4 mg/dL (0.2-1.3)
--- NOTE | 2018-02-17 08:26 | FL ---
Fluoroscopy HISTORY: Stent placement 30 seconds fluoroscopy time supplied to the referring clinician. 1 intraoperative C-arm image docume nts the procedure. See dictated report from urology.
--- NOTE | 2018-02-17 09:29 | P.PN ---
Progress Note - Text Progress Note Date: 02/17/18 Miss Christensen has no complaints this morning. She is awake and alert. She was tachycardic following the stent placement, but remains normotensive and afebrile She has had significant urine output overnight. The urine drained from the kidney at the time of stent placement was grossly purulent, and the urine remains cloudy. The preliminary urine culture results shows gram- negative bacilli. The serum creatinine level has improved to 9.8. She is currently receiving ciprofloxacin, but in antibiotic change may be required once the urine culture is completed.
[2018-02-17] MEDS: predniSONE 20 MG TAB PO SCH ×2 (10:05→21:22)
[2018-02-17] MEDS: CIPROFLOXACIN HCL 500 MG TAB PO SCH (10:05)
[2018-02-17] MEDS: ENOXAPARIN 30 MG/0.3 ML SYRINGE SQ SCH (10:05)
[2018-02-17] MEDS: SODIUM BICARBONATE TAB 650 MG TAB PO SCH ×4 (10:05→21:22)
[2018-02-17 11:20] LABS: Glucose,Whole Blood 246 mg/dL (75-99)
--- NOTE | 2018-02-17 11:34 | P.PN ---
Subjective Progress Note Date: 02/17/18 Radha Christensen is a 32 -year-old female resident of senior living who was sent to [facility] emergency room due to significantly abnormal labs, patient stated that she had some episodes of vomiting in the last week or so she had a blood test at the senior living that revealed elevated creatinine of 13 and elevated BUN at 150 she was transferred to emergency room repeat labs in the emergency room revealed evidence of a BUN of 150 creatinine 15.4 and potassium level of 7.0 patient was admitted to telemetry floor nephrology consult was requested. Patient has a known history of previous history of stroke with residual left sided weakness she resides at a senior living she has mild chronic renal failure with baseline creatinine of 1.4 There is also history of liver cirrhosis with ascites requiring previous episodes of paracentesis. On 02/16/2018 patient is alert and oriented 3 in no apparent distress computed tomography scan of the abdomen and pelvis was done and revealed a proximal left ureteric calculus causing left sided hydronephrosis with evidence of atrophy of the right kidney. Urology consultation was requested Dr. Charles aware, at this time trying to obtain consent from legal guardian to proceed with cystoscopy and left ureteral stent placement, clinically patient is stable and she is alert and oriented in no apparent distress she is complaining of abdominal discomfort otherwise no complaints at this time On 02/17/2018 patient is alert and oriented. Patient resting comfortably in bed with no complaints. Patient underwent cystoscopy with left ureteral stent insertion yesterday with Dr. Willson. Urine is currently growing gram- negative bacilli. Patient currently on Cipro. Creatinine 9.80, bun 119 and potassium 5.7 cm nephrology services are following. At this time patient denies chest pain or shortness of breath. Patient denies nausea vomiting or diarrhea. Patient does have Rosado catheter in place. Objective - Vital Signs Vital signs: Vital Signs Temp 97.9 F 02/17/18 08:20 Pulse 78 02/17/18 08:20 Resp 18 02/17/18 08:20 BP 113/74 02/17/18 08:20 Pulse Ox 95 02/17/18 08:20 Intake & Output 02/16/18 02/17/18 02/17/18 18:59 06:59 18:59 Intake Total 3230 400 240 Output Total 1125 3150 Balance 2105 -2750 240 Weight 109.5 kg Intake: IV 400 Intake, IV Titration 2850 Amount Sodium Chloride 0.9% 1, 2850 000 ml @ 150 mls/hr IV . Q6H40M [facility] Rx#:[id number] Oral 380 240 Output: Urine 1125 3150 Other: Voiding Method Indwelling Catheter Indwelling Catheter Indwelling Catheter - Exam HEENT head normocephalic and atraumatic Neck is supple no JVD no goiter no lymphadenopathy Chest exam reveals a few scattered rhonchi no wheezing Cardiac exam reveals regular heart sounds S1 and S2 no gallops no murmurs there is tachycardia Abdomen is soft nontender no organomegaly with normal bowel sounds Extremity exam reveals no edema no cyanosis or clubbing Neurological examination reveals left-sided weakness with contracture the left hand and left foot - Labs CBC & Chem 7: 02/17/18 06:08 02/17/18 06:08 Labs: Abnormal Lab Results - Last 24 Hours (Table) 02/16/18 02/16/18 02/16/18 Range/Units 15:39 16:22 19:46 RBC (3.80-5.40) m/uL Hgb (11.4-16.0) gm/dL Hct (34.0-46.0) % MCHC (31.0-37.0) g/dL Neutrophils # (1.3-7.7) k/uL Lymphocytes # (1.0-4.8) k/uL Potassium 6.4 H* 5.6 H (3.5-5.1) mmol/L Chloride 115 H 113 H (98-107) mmol/L Carbon Dioxide 13 L 13 L (22-30) mmol/L BUN 138 H* 139 H* (7-17) mg/dL Creatinine 12.28 H* 11.83 H* (0.52-1.04) mg/dL Glucose 158 H 192 H (74-99) mg/dL POC Glucose (mg/dL) 158 H (75-99) mg/dL Calcium 7.5 L 7.7 L (8.4-10.2) mg/dL Phosphorus 9.2 H* 8.7 H (2.5-4.5) mg/dL AST (14-36) U/L Total Protein (6.3-8.2) g/dL Albumin (3.5-5.0) g/dL 02/16/18 02/16/18 02/17/18 Range/Units 19:56 21:23 05:39 RBC (3.80-5.40) m/uL Hgb (11.4-16.0) gm/dL Hct (34.0-46.0) % MCHC (31.0-37.0) g/dL Neutrophils # (1.3-7.7) k/uL Lymphocytes # (1.0-4.8) k/uL Potassium (3.5-5.1) mmol/L Chloride (98-107) mmol/L Carbon Dioxide (22-30) mmol/L BUN (7-17) mg/dL Creatinine (0.52-1.04) mg/dL Glucose (74-99) mg/dL POC Glucose (mg/dL) 201 H 141 H 225 H (75-99) mg/dL Calcium (8.4-10.2) mg/dL Phosphorus (2.5-4.5) mg/dL AST (14-36) U/L Total Protein (6.3-8.2) g/dL Albumin (3.5-5.0) g/dL 02/17/18 02/17/18 02/17/18 Range/Units 06:08 06:08 11:17 RBC 3.19 L (3.80-5.40) m/uL Hgb 9.2 L (11.4-16.0) gm/dL Hct 30.4 L (34.0-46.0) % MCHC 30.3 L (31.0-37.0) g/dL Neutrophils # 8.1 H (1.3-7.7) k/uL Lymphocytes # 0.4 L (1.0-4.8) k/uL Potassium 5.7 H (3.5-5.1) mmol/L Chloride 116 H (98-107) mmol/L Carbon Dioxide 13 L (22-30) mmol/L BUN 119 H* (7-17) mg/dL Creatinine 9.80 H* (0.52-1.04) mg/dL Glucose 235 H (74-99) mg/dL POC Glucose (mg/dL) 246 H (75-99) mg/dL Calcium 7.4 L (8.4-10.2) mg/dL Phosphorus (2.5-4.5) mg/dL AST 7 L (14-36) U/L Total Protein 6.0 L (6.3-8.2) g/dL Albumin 2.7 L (3.5-5.0) g/dL Microbiology - Last 24 Hours (Table) 02/15/18 13:51 Urine Culture - Preliminary Urine,Catheterized Gram Neg Bacilli Assessment and Plan Assessment: #1 acute renal failure, with minimal improvement since yesterday, creatinine still elevated at 13.35 computed tomography scan of abdomen and pelvis reveals evidence of large left ureteral calculus with hydronephrosis. Patient is currently status post cystoscopy with left ureteral stent insertion with Dr. Reddy yesterday at 02/16/2018. Nephrology services are following. Creatinine 9.80 and bun 119 #2 previous history of stroke #3 previous history of liver cirrhosis #4 anxiety disorder #5 underlying history of hypothyroidism #6 evidence of urinary tract infection on presentation #7 evidence of kidney stones on the right kidney on ultrasound done today however ultrasound was very limited it was stopped due to patient request due to pain there was no clear evidence of hydronephrosis #8. Hyperglycemia due to steroids. Will order hemoglobin A1c. Patient currently on sliding scale coverage DVT prophylaxis Lovenox. GI prophylaxis Pepcid I performed an examination of the patient and discussed their management with the Nurse Practitioner. I have reviewed the Nurse Practitioner's notes and agree with the documented findings and plan of care
[2018-02-17 11:37] LABS: Hemoglobin A1C 6.2 % (4.0-6.0)
[2018-02-17] MEDS: DEXTROSE 5% IN WATER 1,000 ML with SODIUM BICARB (1 MEQ/ML) 150 ML IV SCH ×2 (12:27→17:43)
[2018-02-17] MEDS ORDERED: FLUoxetine HCL 20 MG CAP PO PRN (13:37)
[2018-02-17] MEDS ORDERED: SODIUM POLYSTYRENE SULFONATE 15 GM/60 ML BOTTLE PO STA (13:49)
[2018-02-17] MEDS: ACETAMINOPHEN TAB 325 MG TAB PO SCH ×2 (14:33→21:13)
--- NOTE | 2018-02-17 15:40 | P.CNOR ---
History of Present Illness - [facility] Consult date: 02/17/18 History of present illness: Patient reports left middle finger stiffness/contracture. Patient states that she was in a coma for 1 year and when she woke up she had a left middle finger contracture. There is no known injury. The patient is right-hand dominant. Review of Systems Constitutional: Reports as per HPI Past Medical History Past Medical History: CVA/TIA, Myocardial Infarction (VT) Additional Past Medical History / Comment(s): morbid obesity, pancreatitis, history of coma - 10/24/14 - until end of december after suffering from a stroke. Last Myocardial Infarction Date:: 10/2014 History of Any Multi-Drug Resistant Organisms: None Reported Past Surgical History: Cholecystectomy Past Anesthesia/Blood Transfusion Reactions: No Reported Reaction Past Psychological History: Anxiety, Depression, Panic Disorder Smoking Status: Never smoker Past Alcohol Use History: Heavy Additional Past Alcohol Use History / Comment(s): patient smoked in high school Past Drug Use History: None Reported - Past Family History Father History Unknown: Yes Family Medical History: Cancer Additional Family Medical History / Comment(s): lung Medications and Allergies Home Medications Medication Instructions Recorded Confirmed Type HYDROcodone/APAP 10-325MG [[place] 1 tab PO Q4H PRN 10/18/14 02/15/18 History 10-325] Acetaminophen Tab [Tylenol] 650 mg PO Q6H 02/15/18 02/15/18 History Clopidogrel [Plavix] 75 mg PO DAILY 02/15/18 02/15/18 History Ergocalciferol (Vitamin D2) 50,000 unit PO Q28H 02/15/18 02/15/18 History [Drisdol] FLUoxetine HCL [PROzac] 20 mg PO HS PRN 02/15/18 02/15/18 History Ibuprofen [Motrin Ib] 400 mg PO Q12HR PRN 02/15/18 02/15/18 History Levothyroxine Sodium [Synthroid] 25 mcg PO DAILY 02/15/18 02/15/18 History Loperamide [Imodium] 2 mg PO Q8HR PRN 02/15/18 02/15/18 History Loperamide [Imodium] 4 mg PO DAILY PRN 02/15/18 02/15/18 History Magnesium Hydroxide [Milk of 2,400 mg PO Q72H PRN 02/15/18 02/15/18 History Magnesia] Melatonin 5 mg PO HS PRN 02/15/18 02/15/18 History Midodrine HCl 5 mg PO TID@0800,1200,1900 02/15/18 02/15/18 History Multivitamins, Thera [Multivitamin 1 tab PO DAILY 02/15/18 02/15/18 History (formulary)] Sennosides [Senokot] 8.6 mg PO BID 02/15/18 02/15/18 History clonazePAM [KlonoPIN] 0.5 mg PO BID PRN 02/15/18 02/15/18 History clonazePAM [KlonoPIN] 1.5 mg PO HS PRN 02/15/18 02/15/18 History Allergies Allergy/AdvReac Type Severity Reaction Status Date / Time aspirin Allergy Unknown Verified 02/15/18 07:56 ibuprofen [From Motrin] Allergy Unknown Verified 02/15/18 07:56 sertraline HCl [From Zoloft] Allergy Unknown Verified 02/15/18 07:56 zolpidem tartrate Allergy Unknown Verified 02/15/18 07:56 [From Ambien] gabapentin [From Neurontin] AdvReac Severe Unknown Verified 02/15/18 13:13 Physical Examination Osteopathic Statement: *. No significant issues noted on an osteopathic structural exam other than those noted in the History and Physical/Consult. There is a fixed boutonniere contracture involving the left middle finger. There is a rigid flexion contracture at the PIP joint as well as a extensor contracture at the DIP joint. I am unable to forcibly extend the PIP joint. She is able to make a full fist and has good medical photographer strength. The distal neurovascular exam appears intact all digits. There is no ecchymosis or evidence for acute process. Results - Labs Labs: Abnormal Lab Results - Last 24 Hours (Table) 02/16/18 02/16/18 02/16/18 Range/Units 06:57 15:39 16:22 RBC (3.80-5.40) m/uL Hgb (11.4-16.0) gm/dL Hct (34.0-46.0) % MCHC (31.0-37.0) g/dL Neutrophils # (1.3-7.7) k/uL Lymphocytes # (1.0-4.8) k/uL Potassium 6.4 H* (3.5-5.1) mmol/L Chloride 115 H (98-107) mmol/L Carbon Dioxide 13 L (22-30) mmol/L BUN 138 H* (7-17) mg/dL Creatinine 12.28 H* (0.52-1.04) mg/dL Glucose 158 H (74-99) mg/dL POC Glucose (mg/dL) 158 H (75-99) mg/dL Hemoglobin A1c 6.2 H (4.0-6.0) % Calcium 7.5 L (8.4-10.2) mg/dL Phosphorus 9.2 H* (2.5-4.5) mg/dL AST (14-36) U/L Total Protein (6.3-8.2) g/dL Albumin (3.5-5.0) g/dL 02/16/18 02/16/18 02/16/18 Range/Units 19:46 19:56 21:23 RBC (3.80-5.40) m/uL Hgb (11.4-16.0) gm/dL Hct (34.0-46.0) % MCHC (31.0-37.0) g/dL Neutrophils # (1.3-7.7) k/uL Lymphocytes # (1.0-4.8) k/uL Potassium 5.6 H (3.5-5.1) mmol/L Chloride 113 H (98-107) mmol/L Carbon Dioxide 13 L (22-30) mmol/L BUN 139 H* (7-17) mg/dL Creatinine 11.83 H* (0.52-1.04) mg/dL Glucose 192 H (74-99) mg/dL POC Glucose (mg/dL) 201 H 141 H (75-99) mg/dL Hemoglobin A1c (4.0-6.0) % Calcium 7.7 L (8.4-10.2) mg/dL Phosphorus 8.7 H (2.5-4.5) mg/dL AST (14-36) U/L Total Protein (6.3-8.2) g/dL Albumin (3.5-5.0) g/dL 02/17/18 02/17/18 02/17/18 Range/Units 05:39 06:08 06:08 RBC 3.19 L (3.80-5.40) m/uL Hgb 9.2 L (11.4-16.0) gm/dL Hct 30.4 L (34.0-46.0) % MCHC 30.3 L (31.0-37.0) g/dL Neutrophils # 8.1 H (1.3-7.7) k/uL Lymphocytes # 0.4 L (1.0-4.8) k/uL Potassium 5.7 H (3.5-5.1) mmol/L Chloride 116 H (98-107) mmol/L Carbon Dioxide 13 L (22-30) mmol/L BUN 119 H* (7-17) mg/dL Creatinine 9.80 H* (0.52-1.04) mg/dL Glucose 235 H (74-99) mg/dL POC Glucose (mg/dL) 225 H (75-99) mg/dL Hemoglobin A1c (4.0-6.0) % Calcium 7.4 L (8.4-10.2) mg/dL Phosphorus (2.5-4.5) mg/dL AST 7 L (14-36) U/L Total Protein 6.0 L (6.3-8.2) g/dL Albumin 2.7 L (3.5-5.0) g/dL 02/17/18 Range/Units 11:17 RBC (3.80-5.40) m/uL Hgb (11.4-16.0) gm/dL Hct (34.0-46.0) % MCHC (31.0-37.0) g/dL Neutrophils # (1.3-7.7) k/uL Lymphocytes # (1.0-4.8) k/uL Potassium (3.5-5.1) mmol/L Chloride (98-107) mmol/L Carbon Dioxide (22-30) mmol/L BUN (7-17) mg/dL Creatinine (0.52-1.04) mg/dL Glucose (74-99) mg/dL POC Glucose (mg/dL) 246 H (75-99) mg/dL Hemoglobin A1c (4.0-6.0) % Calcium (8.4-10.2) mg/dL Phosphorus (2.5-4.5) mg/dL AST (14-36) U/L Total Protein (6.3-8.2) g/dL Albumin (3.5-5.0) g/dL Microbiology - Last 24 Hours (Table) 02/16/18 20:37 Urine Culture - Preliminary Urine,Suprapubic 02/15/18 13:51 Urine Culture - Preliminary Urine,Catheterized Gram Neg Bacilli H & H 02/15/18 02/16/18 02/17/18 Range/Units 06:26 06:57 06:08 Hgb 10.7 L 9.2 L D 9.2 L (11.4-16.0) gm/dL Hct 34.8 30.3 L 30.4 L (34.0-46.0) % Coagulation 02/15/18 Range/Units 06:26 INR 0.9 (<1.2) Result Diagrams: 02/17/18 06:08 02/17/18 06:08 Assessment and Plan Assessment: Left middle finger chronic boutonniere deformity Plan: 1. No acute surgical intervention is indicated 2. If patient wishes to pursue treatment I would recommend a follow-up with the hand surgeon on an outpatient basis Time with Patient: Less than 30
[2018-02-17 16:37] LABS: Glucose,Whole Blood 252 mg/dL (75-99)
--- NOTE | 2018-02-17 17:19 | PN ---
PROGRESS NOTE Patient is seen for followup for acute kidney injury. Her renal function has been improving slowly. Serum creatinine was as high as 15.42 on initial admission. It is down to 9.8. Patient has an indwelling Rosado catheter. [id number] urine output is documented at 4.2 L. She is maintained on IV fluids as well. Patient remains acidotic; therefore the fluids will be changed to IV bicarb. On examination this morning, blood pressure was 113/74, heart rate 78 per minute. Patient is afebrile. EXAMINATION OF THE HEART: S1, S2. EXAMINATION OF LUNGS: Bilateral breath sounds are heard. ABDOMEN: Soft, non-tender. Examination of lower extremities shows wasted lower extremities. No edema is noted. Patient has contracture in the middle finger on the left hand. She is moving her right upper extremity fairly well. Labs show sodium 143, potassium 5.7, chloride 116. CO2 is 13, BUN 119, serum creatinine 9.8, hemoglobin 9.2 g/dL. ASSESSMENT: 1. Acute kidney injury secondary to obstructive uropathy secondary to calculus, status post stent placement with good urine output and improving renal function. Patient has solitary functioning kidney. Her right kidney is atrophic. 2. Urinary tract infection with urine culture growing gram-negative bacilli. 3. Severe metabolic acidosis secondary to advanced renal failure. I will switch to IV bicarb. May continue with oral sodium bicarb as well. 4. Hyperkalemia associated with obstructive uropathy, advanced renal failure and acidosis. Expect improvement with initiation of IV bicarb. I will repeat another serum potassium this afternoon. 5. Hyperglycemia secondary to steroid, maintained on sliding scale. PLAN: Start the IV bicarb. Repeat potassium this evening. Continue IV fluids. Continue to avoid nephrotoxic agents. Monitor urine output. Repeat labs in a.m. MMODL / IJN: [id number] /
[2018-02-17 21:29] LABS: Glucose,Whole Blood 265 mg/dL (75-99)
[2018-02-17] MEDS: clonazePAM 0.5 MG TAB PO PRN (22:24)
[2018-02-18] MEDS: ACETAMINOPHEN TAB 325 MG TAB PO SCH ×4 (03:12→21:18)
[2018-02-18] MEDS: LEVOTHYROXINE 25 MCG TAB PO SCH (06:03)
[2018-02-18] MEDS: DEXTROSE 5% IN WATER 1,000 ML with SODIUM BICARB (1 MEQ/ML) 150 ML IV SCH ×3 (06:03→21:35)
[2018-02-18 06:24] LABS: Glucose,Whole Blood 238 mg/dL (75-99)
[2018-02-18] MEDS: INSULIN ASPART 100 UNIT/ML 1 ML 10 ML VIAL SQ SCH ×4 (06:47→21:17)
[2018-02-18 06:59] LABS: Basophils % (A) 0 %; Eosinophils % (A) 0 %; HCT 29.1 % (34.0-46.0); HGB 9.5 gm/dL (11.4-16.0); Lymphocytes # (A) 0.7 k/uL (1.0-4.8); Lymphocytes % (A) 12 %; MCH 29.6 pg (25.0-35.0); MCHC 32.7 g/dL (31.0-37.0); Mean Platelet Volume 6.9; Monocytes # (A) 0.3 k/uL (0-1.0); Monocytes % (A) 5 %; Neutrophils # (A) 4.8 k/uL (1.3-7.7); Neutrophils % (A) 82 %; Platelet Count 271 k/uL (150-450); RBC 3.22 m/uL (3.80-5.40); RDW 14.9 % (11.5-15.5); WBC 5.8 k/uL (3.8-10.6)
[2018-02-18 07:11] LABS: Calcium 7.1 mg/dL (8.4-10.2); Potassium 4.2 mmol/L (3.5-5.1); Total Bilirubin 0.4 mg/dL (0.2-1.3); Total Protein 6.1 g/dL (6.3-8.2)
[2018-02-18 07:14] LABS: MCV 90.4 fL (80.0-100.0)
[2018-02-18] MEDS: ENOXAPARIN 30 MG/0.3 ML SYRINGE SQ SCH (08:44)
[2018-02-18] MEDS: FAMOTIDINE 20 MG TAB PO SCH (08:44)
[2018-02-18] MEDS: CIPROFLOXACIN HCL 500 MG TAB PO SCH (08:44)
[2018-02-18] MEDS: predniSONE 20 MG TAB PO SCH ×2 (08:44→21:18)
[2018-02-18] MEDS: SODIUM BICARBONATE TAB 650 MG TAB PO SCH ×4 (08:44→21:18)
[2018-02-18] MEDS: CLOPIDOGREL 75 MG TAB PO SCH (08:44)
[2018-02-18 11:38] LABS: Glucose,Whole Blood 180 mg/dL (75-99)
--- NOTE | 2018-02-18 12:26 | P.PN ---
Subjective Progress Note Date: 02/18/18 Radha Christensen is a 32 -year-old female resident of [facility] who was sent to [facility] emergency room due to significantly abnormal labs, patient stated that she had some episodes of vomiting in the last week or so she had a blood test at the [facility] that revealed elevated creatinine of 13 and elevated BUN at 150 she was transferred to emergency room repeat labs in the emergency room revealed evidence of a BUN of 150 creatinine 15.4 and potassium level of 7.0 patient was admitted to telemetry floor nephrology consult was requested. Patient has a known history of previous history of stroke with residual left sided weakness she resides at a [facility] she has mild chronic renal failure with baseline creatinine of 1.4 There is also history of liver cirrhosis with ascites requiring previous episodes of paracentesis. On 02/16/2018 patient is alert and oriented 3 in no apparent distress computed tomography scan of the abdomen and pelvis was done and revealed a proximal left ureteric calculus causing left sided hydronephrosis with evidence of atrophy of the right kidney. Urology consultation was requested Dr. Charles aware, at this time trying to obtain consent from legal guardian to proceed with cystoscopy and left ureteral stent placement, clinically patient is stable and she is alert and oriented in no apparent distress she is complaining of abdominal discomfort otherwise no complaints at this time On 02/17/2018 patient is alert and oriented. Patient resting comfortably in bed with no complaints. Patient underwent cystoscopy with left ureteral stent insertion yesterday with Dr. Willson. Urine is currently growing gram- negative bacilli. Patient currently on Cipro. Creatinine 9.80, bun 119 and potassium 5.7 cm nephrology services are following. At this time patient denies chest pain or shortness of breath. Patient denies nausea vomiting or diarrhea. Patient does have Rosado catheter in place. On 02/18/2018 patient is currently resting in bed. Patient's creatinine improving to 5.10. Potassium also improving to 4.2. Patient remains on Cipro. Patient has good urine output the indwelling catheter. Patient denies chest pain or shortness of breath. Patient denies nausea vomiting or diarrhea. Patient denies any urinary burning or frequency. Objective - Vital Signs Vital signs: Vital Signs Temp 97.9 F 02/18/18 00:01 Pulse 60 02/18/18 03:43 Resp 16 02/18/18 03:43 BP 156/89 02/18/18 03:43 Pulse Ox 95 02/18/18 03:43 Intake & Output 02/17/18 02/18/18 02/18/18 18:59 06:59 18:59 Intake Total 1357 1050 Output Total 1999 4249 Balance -643 -3200 Weight 108 kg Intake: Intake, IV Titration 775 1050 Amount Dextrose 5% in Water 1, 75 1050 000 ml @ 150 mls/hr IV . Q7H40M [facility] with Sodium Bicarb (1 Meq/ml) 150 ml Rx#:[id number] Sodium Chloride 0.9% 1, 700 000 ml @ 150 mls/hr IV . Q6H40M [facility] Rx#:[id number] Oral 582 Output: Urine 1999 4249 Other: Voiding Method Indwelling Catheter Indwelling Catheter - Exam HEENT head normocephalic and atraumatic Neck is supple no JVD no goiter no lymphadenopathy Chest exam reveals a few scattered rhonchi no wheezing Cardiac exam reveals regular heart sounds S1 and S2 no gallops no murmurs there is tachycardia Abdomen is soft nontender no organomegaly with normal bowel sounds Extremity exam reveals no edema no cyanosis or clubbing Neurological examination reveals left-sided weakness with contracture the left hand and left foot - Labs CBC & Chem 7: 02/18/18 06:03 02/18/18 06:03 Labs: Abnormal Lab Results - Last 24 Hours (Table) 02/17/18 02/17/18 02/18/18 Range/Units 16:32 21:27 06:03 RBC 3.22 L (3.80-5.40) m/uL Hgb 9.5 L (11.4-16.0) gm/dL Hct 29.1 L (34.0-46.0) % Lymphocytes # 0.7 L (1.0-4.8) k/uL Chloride (98-107) mmol/L BUN (7-17) mg/dL Creatinine (0.52-1.04) mg/dL Glucose (74-99) mg/dL POC Glucose (mg/dL) 252 H 265 H (75-99) mg/dL Calcium (8.4-10.2) mg/dL AST (14-36) U/L Total Protein (6.3-8.2) g/dL Albumin (3.5-5.0) g/dL 02/18/18 02/18/18 02/18/18 Range/Units 06:03 06:23 11:37 RBC (3.80-5.40) m/uL Hgb (11.4-16.0) gm/dL Hct (34.0-46.0) % Lymphocytes # (1.0-4.8) k/uL Chloride 109 H (98-107) mmol/L BUN 88 H (7-17) mg/dL Creatinine 5.10 H (0.52-1.04) mg/dL Glucose 233 H (74-99) mg/dL POC Glucose (mg/dL) 238 H 180 H (75-99) mg/dL Calcium 7.1 L (8.4-10.2) mg/dL AST 6 L (14-36) U/L Total Protein 6.1 L (6.3-8.2) g/dL Albumin 3.0 L (3.5-5.0) g/dL Microbiology - Last 24 Hours (Table) 02/15/18 13:51 Urine Culture - Final Urine,Catheterized Proteus mirabilis 02/16/18 20:37 Urine Culture - Preliminary Urine,Suprapubic Assessment and Plan Assessment: #1 acute renal failure, with minimal improvement since yesterday, creatinine still elevated at 13.35 computed tomography scan of abdomen and pelvis reveals evidence of large left ureteral calculus with hydronephrosis. Patient is currently status post cystoscopy with left ureteral stent insertion with Dr. Charles yesterday at 02/16/2018. Nephrology services are following. Creatinine 5.10 and bun 88 #2 previous history of stroke #3 previous history of liver cirrhosis #4 anxiety disorder #5 underlying history of hypothyroidism. Synthroid resumed. TSH 0.907 #6 evidence of urinary tract infection on presentation #7 evidence of kidney stones on the right kidney on ultrasound done today however ultrasound was very limited it was stopped due to patient request due to pain there was no clear evidence of hydronephrosis #8. Hyperglycemia due to steroids. Patient currently on sliding scale coverage. Hemoglobin A1c 6.2 #9 left middle finger stiffness contracture. Patient seen by orthopedic services. No acute surgical intervention is indicated patient if she wishes to follow up with hand surgeon outpatient DVT prophylaxis Lovenox. GI prophylaxis Pepcid I performed an examination of the patient and discussed their management with the Nurse Practitioner. I have reviewed the Nurse Practitioner's notes and agree with the documented findings and plan of care
--- NOTE | 2018-02-18 14:03 | PN ---
PROGRESS NOTE Patient is seen for followup for acute kidney injury secondary to obstructive uropathy. She has an atrophic right kidney. Patient is status post stent in the left kidney for a calculus. She is currently doing much better. Serum creatinine is down to about 5.1 from 15.4 on initial admission. Patient was acidotic and she is currently maintained on IV bicarb. CO2 has improved to 23 today. Patient is eating fairly well. PHYSICAL EXAMINATION: Blood pressure was 156/89, heart rate 60 per minute. She is afebrile. Examination of the heart, S1, S2. Examination of the lungs, bilateral breath sounds are heard. Abdomen is soft, nontender. Examination of the lower extremities shows wasting of the lower extremities. There is significant weakness in the legs. The patient is moving her right upper extremity fairly well. She has contracture in the middle finger on the left hand. LABS: Show sodium 142, potassium 4.2, chloride 109, BUN 88, serum creatinine 5.1, hemoglobin 9.5 g/dL. ASSESSMENT: 1. Acute kidney injury secondary to obstructive uropathy, currently significantly improved. 2. Left ureteral calculus, status post stent placement. 3. Atrophic right kidney. 4. Urinary tract infection with urine culture growing gram-negative bacilli. 5. Severe metabolic acidosis secondary to renal failure, maintained on IV bicarb, currently improved. I will discontinue the IV bicarb tomorrow. 6. Hyperkalemia associated with advanced renal failure and obstructive uropathy, currently improved. PLAN: Continue IV bicarb for 1 more day. Repeat labs in a.m. Continue to avoid nephrotoxic agents. MMODL / IJN: [id number] /
[2018-02-18 16:51] LABS: Glucose,Whole Blood 322 mg/dL (75-99)
[2018-02-18] MEDS: HYDROcodone/APAP 10-325MG 1 EACH TAB PO PRN (17:11)
[2018-02-18 21:05] LABS: Glucose,Whole Blood 299 mg/dL (75-99)
[2018-02-19] MEDS ORDERED: HYDROcodone/APAP 10-325MG 1 EACH TAB ONE (00:30)
[2018-02-19 05:41] LABS: Glucose,Whole Blood 291 mg/dL (75-99)
[2018-02-19] MEDS: DEXTROSE 5% IN WATER 1,000 ML with SODIUM BICARB (1 MEQ/ML) 150 ML IV SCH ×2 (06:09→09:12)
[2018-02-19] MEDS: ACETAMINOPHEN TAB 325 MG TAB PO SCH ×4 (06:09→13:21)
[2018-02-19] MEDS: INSULIN ASPART 100 UNIT/ML 1 ML 10 ML VIAL SQ SCH ×4 (06:39→22:10)
[2018-02-19] MEDS: LEVOTHYROXINE 25 MCG TAB PO SCH (06:39)
[2018-02-19 07:39] LABS: Calcium 6.6 mg/dL (8.4-10.2); Potassium 3.2 mmol/L (3.5-5.1); Total Bilirubin 0.4 mg/dL (0.2-1.3)
--- NOTE | 2018-02-19 07:47 | P.PN ---
Progress Note - Text Progress Note Date: 02/19/18 Ms. Christensen's condition has improved significantly. Her Rosado catheter is draining clear yellow urine, and from my standpoint can be removed when no longer medically needed. Her serum creatinine level has decreased to 2.89 this morning. Her urine culture has shown a Proteus UTI. This raises the possibility that her calculi are infected. It would be my recommendation that she be discharged home on antibiotics when she is felt to be medically ready for discharge, and follow-up with me in 2 weeks. Once that has been documented that her infection is cleared, she will be scheduled to undergo cystoscopy, left ureteral stent removal, left ureteroscopy with holmium laser lithotripsy. However, if her calculi are infected, residual calculus fragments may result in a persistent infection in which case she may require a percutaneous procedure.
[2018-02-19 07:53] LABS: Basophils % (A) 0 %; Eosinophils % (A) 1 %; HCT 29.3 % (34.0-46.0); HGB 9.5 gm/dL (11.4-16.0); Lymphocytes # (A) 0.9 k/uL (1.0-4.8); Lymphocytes % (A) 18 %; MCH 29.3 pg (25.0-35.0); MCHC 32.5 g/dL (31.0-37.0); MCV 90.3 fL (80.0-100.0); Mean Platelet Volume 6.9; Monocytes # (A) 0.3 k/uL (0-1.0); Monocytes % (A) 5 %; Neutrophils # (A) 3.8 k/uL (1.3-7.7); Neutrophils % (A) 74 %; Platelet Count 263 k/uL (150-450); RBC 3.24 m/uL (3.80-5.40); RDW 14.9 % (11.5-15.5); WBC 5.1 k/uL (3.8-10.6)
[2018-02-19] MEDS ORDERED: POTASSIUM CHLORIDE ER 20 MEQ TAB.ER PO STA (08:59)
[2018-02-19] MEDS: HYDROcodone/APAP 10-325MG 1 EACH TAB PO PRN ×2 (09:00→16:00)
[2018-02-19] MEDS: CLOPIDOGREL 75 MG TAB PO SCH (09:00)
[2018-02-19] MEDS: CIPROFLOXACIN HCL 500 MG TAB PO SCH (09:01)
[2018-02-19] MEDS: ENOXAPARIN 30 MG/0.3 ML SYRINGE SQ SCH (09:01)
[2018-02-19] MEDS: predniSONE 20 MG TAB PO SCH (09:01)
[2018-02-19] MEDS: SODIUM BICARBONATE TAB 650 MG TAB PO SCH (09:01)
[2018-02-19] MEDS: clonazePAM 0.5 MG TAB PO PRN (09:01)
[2018-02-19] MEDS: FAMOTIDINE 20 MG TAB PO SCH (09:01)
[2018-02-19] MEDS: SODIUM CHLORIDE 0.9% 1,000 ML IV SCH ×2 (09:10→13:21)
--- NOTE | 2018-02-19 09:59 | P.PN ---
Subjective Progress Note Date: 02/19/18 Radha Christensen is a 32 -year-old female resident of [facility] who was sent to [facility] emergency room due to significantly abnormal labs, patient stated that she had some episodes of vomiting in the last week or so she had a blood test at the [facility] that revealed elevated creatinine of 13 and elevated BUN at 150 she was transferred to emergency room repeat labs in the emergency room revealed evidence of a BUN of 150 creatinine 15.4 and potassium level of 7.0 patient was admitted to telemetry floor nephrology consult was requested. Patient has a known history of previous history of stroke with residual left sided weakness she resides at a [facility] she has mild chronic renal failure with baseline creatinine of 1.4 There is also history of liver cirrhosis with ascites requiring previous episodes of paracentesis. On 02/16/2018 patient is alert and oriented 3 in no apparent distress computed tomography scan of the abdomen and pelvis was done and revealed a proximal left ureteric calculus causing left sided hydronephrosis with evidence of atrophy of the right kidney. Urology consultation was requested Dr. Charles aware, at this time trying to obtain consent from legal guardian to proceed with cystoscopy and left ureteral stent placement, clinically patient is stable and she is alert and oriented in no apparent distress she is complaining of abdominal discomfort otherwise no complaints at this time On 02/17/2018 patient is alert and oriented. Patient resting comfortably in bed with no complaints. Patient underwent cystoscopy with left ureteral stent insertion yesterday with Dr. Willson. Urine is currently growing gram- negative bacilli. Patient currently on Cipro. Creatinine 9.80, bun 119 and potassium 5.7 cm nephrology services are following. At this time patient denies chest pain or shortness of breath. Patient denies nausea vomiting or diarrhea. Patient does have Rosado catheter in place. On 02/18/2018 patient is currently resting in bed. Patient's creatinine improving to 5.10. Potassium also improving to 4.2. Patient remains on Cipro. Patient has good urine output the indwelling catheter. Patient denies chest pain or shortness of breath. Patient denies nausea vomiting or diarrhea. Patient denies any urinary burning or frequency. On 02/19/2018 patient was seen and examined on the telemetry floor she is alert and oriented 3 in no apparent distress kidney function improved significantly with BUN down to 62 and creatinine down to 2.89 potassium is low at 3.2 patient is feeling well and denies any complaints at this time she will be transferred off the telemetry floor to the general medical floor. Objective - Vital Signs Vital signs: Vital Signs Temp 98.1 F 02/19/18 08:00 Pulse 61 02/19/18 08:00 Resp 18 02/19/18 08:00 BP 128/80 02/19/18 08:00 Pulse Ox 93 L 02/19/18 08:00 Intake & Output 02/18/18 02/19/18 02/19/18 18:59 06:59 18:59 Intake Total 780 Output Total 1800 2300 1700 Balance -1020 -2300 -1700 Weight 106.5 kg Intake: Oral 780 Tube Feeding 0 Output: Urine 1800 2300 1700 Uretheral (Rosado) 2300 1700 Other: Voiding Method Indwelling Catheter Indwelling Catheter Indwelling Catheter - Exam HEENT head normocephalic and atraumatic Neck is supple no JVD no goiter no lymphadenopathy Chest exam reveals a few scattered rhonchi no wheezing Cardiac exam reveals regular heart sounds S1 and S2 no gallops no murmurs there is tachycardia Abdomen is soft nontender no organomegaly with normal bowel sounds Extremity exam reveals no edema no cyanosis or clubbing Neurological examination reveals left-sided weakness with contracture the left hand and left foot which is chronic - Labs CBC & Chem 7: 02/19/18 06:33 02/19/18 06:32 Labs: Abnormal Lab Results - Last 24 Hours (Table) 02/18/18 02/18/18 02/18/18 Range/Units 11:37 16:48 21:02 RBC (3.80-5.40) m/uL Hgb (11.4-16.0) gm/dL Hct (34.0-46.0) % Lymphocytes # (1.0-4.8) k/uL Potassium (3.5-5.1) mmol/L Carbon Dioxide (22-30) mmol/L BUN (7-17) mg/dL Creatinine (0.52-1.04) mg/dL Glucose (74-99) mg/dL POC Glucose (mg/dL) 180 H 322 H 299 H (75-99) mg/dL Calcium (8.4-10.2) mg/dL AST (14-36) U/L Total Protein (6.3-8.2) g/dL Albumin (3.5-5.0) g/dL 02/19/18 02/19/18 02/19/18 Range/Units 05:40 06:32 06:33 RBC 3.24 L (3.80-5.40) m/uL Hgb 9.5 L (11.4-16.0) gm/dL Hct 29.3 L (34.0-46.0) % Lymphocytes # 0.9 L (1.0-4.8) k/uL Potassium 3.2 L (3.5-5.1) mmol/L Carbon Dioxide 31 H (22-30) mmol/L BUN 62 H (7-17) mg/dL Creatinine 2.89 H (0.52-1.04) mg/dL Glucose 267 H (74-99) mg/dL POC Glucose (mg/dL) 291 H (75-99) mg/dL Calcium 6.6 L (8.4-10.2) mg/dL AST 8 L (14-36) U/L Total Protein 6.0 L (6.3-8.2) g/dL Albumin 3.0 L (3.5-5.0) g/dL Microbiology - Last 24 Hours (Table) 02/16/18 20:37 Urine Culture - Preliminary Urine,Suprapubic Gram Neg Bacilli Assessment and Plan Plan: #1 acute renal failure, with minimal improvement since yesterday, creatinine still elevated at 13.35 computed tomography scan of abdomen and pelvis reveals evidence of large left ureteral calculus with hydronephrosis. Patient is currently status post cystoscopy with left ureteral stent insertion with Dr. Charles yesterday at 02/16/2018. Nephrology services are following. Creatinine 2.89 and bun 62. Input from urology Dr. Charles reviewed #2 previous history of stroke #3 previous history of liver cirrhosis #4 anxiety disorder #5 underlying history of hypothyroidism. Synthroid resumed. TSH 0.907 #6 evidence of urinary tract infection on presentation #7 evidence of kidney stones on the right kidney on ultrasound done today however ultrasound was very limited it was stopped due to patient request due to pain there was no clear evidence of hydronephrosis #8. Hyperglycemia due to steroids. Patient currently on sliding scale coverage. Hemoglobin A1c 6.2 #9 left middle finger stiffness contracture. Patient seen by orthopedic services. No acute surgical intervention is indicated patient if she wishes to follow up with hand surgeon outpatient DVT prophylaxis Lovenox. GI prophylaxis Pepcid
[2018-02-19 11:38] LABS: Glucose,Whole Blood 184 mg/dL (75-99)
--- NOTE | 2018-02-19 12:22 | PN ---
PROGRESS NOTE Patient is seen for followup for acute kidney injury. Her renal function continues to improve significantly. Currently, the creatinine is down to 2.89 from 15.42 on admission. Patient has right atrophic kidney. She had slight hydronephrosis, some calculus and was seen by Urology and has had a ureteral stent placed. This morning, patient is complaining of some dizziness. She denies any nausea, vomiting or abdominal pain. PHYSICAL EXAMINATION: Blood pressure was 128/80, heart rate 61 per minute. She is afebrile. Examination of the heart, S1, S2. Examination of the lungs, bilateral breath sounds are heard. Abdomen is soft, nontender. Examination of the lower extremities shows no evidence of edema. Seeing loss of muscles noted in the lower extremities. The patient is also weak in her lower extremities as well as the left upper extremity. LABS: Show sodium 143, potassium 3.2, chloride 104, BUN 62, serum creatinine 2.89, hemoglobin 9.5 g/dL. ASSESSMENT: 1. Acute kidney injury, obstructive uropathy with solitary functioning kidney, status post left ureteral stent placement, currently significantly improved. 2. Metabolic acidosis secondary to advanced renal failure, now improved. 3. Hypokalemia associated with post obstructive diuresis and decreased oral intake as well as some degree of metabolic alkalosis. We will replace. 4. Volume depletion, currently improved. 5. Hypothyroidism, maintained on supplementation. PLAN: DC sodium bicarb, replace potassium. I will also discontinue the prednisone. MMODL / IJN: [id number] /
--- NOTE | 2018-02-19 15:57 | CDI ---
Documentation Clarification Form Date: 02/19/2018 3:48:12 PM From: Michelle Short RN, CCDS Admit Date: 02/15/2018 7:28:00 AM Patient Name: Radha Christensen Visit Number: [id number] ATTENTION: The Clinical Documentation Specialists (CDI) and [facility] Coding Staff appreciate your assistance in clarifying documentation. Please respond to the clarification below the line at the bottom and electronically sign. The CDI & [facility] Coding staff will review the response and follow-up if needed. Please note: Queries are made part of the Legal Health Record. If you have any questions, please contact the author of this message via ITS. Dr. Roberto Weber declining Hgb and Hct have been noted since admission and lacks specificity to accurately reflect your patients severity of condition and clarification is needed. History/Risk Factors: Acute renal failure secondary to obstructive uropathy this admission, hx of liver cirrhosis and ETOH, Clinical indicators: Hemoglobin:10.7/9.2/9.5 Hematocrit: 34.8/30.3/32.5 Treatment: Monitoring labs daily Plavix 75 mg Po QD Vitamin D2 50,000 units Q 28 hrs IVF Bolus 2L, followed by 150 cc/hr, followed by 75 cc/hr In order to capture the severity of condition, please identify thee significance of the noted low Hgb and Hct and etiology if known: Acute blood loss anemia Acute on chronic blood loss anemia Chronic blood loss anemia Iron deficiency anemia Drug induced anemia Nutritional anemia Anemia of chronic kidney disease Anemia of chronic disease Unable to determine Other, please specify (Last Revision: November 2016) unable to determine MTDD
[2018-02-19 17:12] LABS: Glucose,Whole Blood 175 mg/dL (75-99)
[2018-02-19 20:51] LABS: Glucose,Whole Blood 138 mg/dL (75-99)
[2018-02-20] MEDS: ACETAMINOPHEN TAB 325 MG TAB PO SCH ×4 (00:26→17:49)
[2018-02-20] MEDS: clonazePAM 0.5 MG TAB PO PRN ×3 (00:30→20:24)
[2018-02-20] MEDS: HYDROcodone/APAP 10-325MG 1 EACH TAB PO PRN ×2 (04:30→14:26)
[2018-02-20] MEDS: LEVOTHYROXINE 25 MCG TAB PO SCH (05:36)
[2018-02-20 07:36] LABS: Glucose,Whole Blood 133 mg/dL (75-99)
[2018-02-20 07:57] VITALS: RESP 18
[2018-02-20] MEDS: CLOPIDOGREL 75 MG TAB PO SCH (08:08)
[2018-02-20] MEDS: CIPROFLOXACIN HCL 500 MG TAB PO SCH (08:08)
[2018-02-20] MEDS: FAMOTIDINE 20 MG TAB PO SCH (08:08)
[2018-02-20] MEDS: ENOXAPARIN 30 MG/0.3 ML SYRINGE SQ SCH (08:09)
[2018-02-20] MEDS: INSULIN ASPART 100 UNIT/ML 1 ML 10 ML VIAL SQ SCH ×4 (08:09→20:51)
[2018-02-20 09:23] LABS: Basophils % (A) 0 %; Eosinophils # (A) 0.1 k/uL (0-0.7); Eosinophils % (A) 2 %; HCT 31.3 % (34.0-46.0); HGB 9.9 gm/dL (11.4-16.0); Hypochromasia Slight; Lymphocytes # (A) 1.9 k/uL (1.0-4.8); Lymphocytes % (A) 28 %; MCH 29.2 pg (25.0-35.0); MCHC 31.7 g/dL (31.0-37.0); MCV 92.2 fL (80.0-100.0); Monocytes # (A) 0.3 k/uL (0-1.0); Monocytes % (A) 4 %; Neutrophils # (A) 4.3 k/uL (1.3-7.7); Neutrophils % (A) 65 %; Platelet Count 245 k/uL (150-450); RBC 3.39 m/uL (3.80-5.40); RDW 14.7 % (11.5-15.5); WBC 6.6 k/uL (3.8-10.6)
[2018-02-20 09:44] LABS: Albumin 3.2 g/dL (3.5-5.0); Potassium 2.9 mmol/L (3.5-5.1); Total Bilirubin 0.4 mg/dL (0.2-1.3); Total Protein 6.2 g/dL (6.3-8.2)
[2018-02-20] MEDS: SODIUM CHLORIDE 0.9% 1,000 ML IV SCH (11:43)
[2018-02-20 12:26] LABS: Glucose,Whole Blood 138 mg/dL (75-99)
[2018-02-20] MEDS ORDERED: POTASSIUM CHLORIDE ER 20 MEQ TAB.ER PO STA (12:26)
[2018-02-20] MEDS ORDERED: POTASSIUM CHLORIDE 20 MEQ in WATER FOR INJECTION 1 100ML.BAG IVPB STA (12:26)
--- NOTE | 2018-02-20 13:28 | PN ---
PROGRESS NOTE The patient is seen for followup for acute kidney injury. Renal function continues to improve. Serum creatinine is down to 2.0 from 15.4 on initial admission. The patient's potassium is on the lower side. She has an indwelling Rosado catheter with good urine output. The patient had a left ureteral stent placed. PHYSICAL EXAMINATION: On examination this morning, blood pressure was 127/62, heart rate was 63 per minute. She is afebrile. EXAMINATION OF THE HEART: S1, S2. EXAMINATION OF THE LUNGS: Bilateral breath sounds are heard. Abdomen is soft, nontender. Examination of the lower extremities shows wasting of the muscles in lower extremities. There is no edema noted. LABS: Labs show sodium 145 and potassium 2.9, chloride 110, BUN 40, serum creatinine 2.0, hemoglobin 9.9 g/dL. ASSESSMENT: 1. Acute kidney injury, obstructive uropathy with atrophic right kidney and left ureteral stone, status post ureteral stent placement with improved renal function. 2. Hypokalemia, will replace aggressively and check a magnesium level as well. 3. Severe metabolic acidosis, now resolved, status post IV bicarb. PLAN: Replace potassium, continue with normal saline and repeat labs in a.m. Patient is stable for discharge from Nephrology standpoint. MMODL / IJN: [id number] /
--- NOTE | 2018-02-20 14:48 | P.PN ---
Subjective Progress Note Date: 02/20/18 Radha Christensen is a 32 -year-old female resident of [facility] who was sent to [facility] emergency room due to significantly abnormal labs, patient stated that she had some episodes of vomiting in the last week or so she had a blood test at the [facility] that revealed elevated creatinine of 13 and elevated BUN at 150 she was transferred to emergency room repeat labs in the emergency room revealed evidence of a BUN of 150 creatinine 15.4 and potassium level of 7.0 patient was admitted to telemetry floor nephrology consult was requested. Patient has a known history of previous history of stroke with residual left sided weakness she resides at a [facility] she has mild chronic renal failure with baseline creatinine of 1.4 There is also history of liver cirrhosis with ascites requiring previous episodes of paracentesis. On 02/16/2018 patient is alert and oriented 3 in no apparent distress computed tomography scan of the abdomen and pelvis was done and revealed a proximal left ureteric calculus causing left sided hydronephrosis with evidence of atrophy of the right kidney. Urology consultation was requested Dr. Charles aware, at this time trying to obtain consent from legal guardian to proceed with cystoscopy and left ureteral stent placement, clinically patient is stable and she is alert and oriented in no apparent distress she is complaining of abdominal discomfort otherwise no complaints at this time On 02/17/2018 patient is alert and oriented. Patient resting comfortably in bed with no complaints. Patient underwent cystoscopy with left ureteral stent insertion yesterday with Dr. Willson. Urine is currently growing gram- negative bacilli. Patient currently on Cipro. Creatinine 9.80, bun 119 and potassium 5.7 cm nephrology services are following. At this time patient denies chest pain or shortness of breath. Patient denies nausea vomiting or diarrhea. Patient does have Rosado catheter in place. On 02/18/2018 patient is currently resting in bed. Patient's creatinine improving to 5.10. Potassium also improving to 4.2. Patient remains on Cipro. Patient has good urine output the indwelling catheter. Patient denies chest pain or shortness of breath. Patient denies nausea vomiting or diarrhea. Patient denies any urinary burning or frequency. On 02/19/2018 patient was seen and examined on the telemetry floor she is alert and oriented 3 in no apparent distress kidney function improved significantly with BUN down to 62 and creatinine down to 2.89 potassium is low at 3.2 patient is feeling well and denies any complaints at this time she will be transferred off the telemetry floor to the general medical floor. On 02/20/2018 Patient is alert and oriented in no distress, she is afebrile there is no headache or dizziness no chest pain or shortness of breath no cough no nausea or vomiting no abdominal pain no burning was urination no frequency or urgency and no hematuria Objective - Vital Signs Vital signs: Vital Signs Temp 96.9 F L 02/20/18 07:00 Pulse 63 02/20/18 07:00 Resp 18 02/20/18 07:00 BP 127/62 02/20/18 07:00 Pulse Ox 96 02/20/18 07:00 Intake & Output 02/19/18 02/20/18 02/20/18 18:59 06:59 18:59 Output Total 6300 4700 Balance -6300 -4700 Weight 117 kg Output: Urine 6300 4700 Uretheral (Rosado) 5100 3400 Other: Voiding Method Indwelling Catheter Indwelling Catheter Indwelling Catheter # Bowel Movements 1 - Exam HEENT head normocephalic and atraumatic Neck is supple no JVD no goiter no lymphadenopathy Chest exam reveals a few scattered rhonchi no wheezing Cardiac exam reveals regular heart sounds S1 and S2 no gallops no murmurs there is tachycardia Abdomen is soft nontender no organomegaly with normal bowel sounds Extremity exam reveals no edema no cyanosis or clubbing Neurological examination reveals left-sided weakness with contracture the left hand and left foot which is chronic - Labs CBC & Chem 7: 02/20/18 08:46 02/20/18 08:46 Labs: Abnormal Lab Results - Last 24 Hours (Table) 02/19/18 02/19/18 02/20/18 Range/Units 17:04 20:45 07:30 RBC (3.80-5.40) m/uL Hgb (11.4-16.0) gm/dL Hct (34.0-46.0) % Potassium (3.5-5.1) mmol/L Chloride (98-107) mmol/L BUN (7-17) mg/dL Creatinine (0.52-1.04) mg/dL Glucose (74-99) mg/dL POC Glucose (mg/dL) 175 H 138 H 133 H (75-99) mg/dL Calcium (8.4-10.2) mg/dL Total Protein (6.3-8.2) g/dL Albumin (3.5-5.0) g/dL 02/20/18 02/20/18 02/20/18 Range/Units 08:46 08:46 12:24 RBC 3.39 L (3.80-5.40) m/uL Hgb 9.9 L (11.4-16.0) gm/dL Hct 31.3 L (34.0-46.0) % Potassium 2.9 L (3.5-5.1) mmol/L Chloride 110 H (98-107) mmol/L BUN 40 H (7-17) mg/dL Creatinine 2.04 H (0.52-1.04) mg/dL Glucose 120 H (74-99) mg/dL POC Glucose (mg/dL) 138 H (75-99) mg/dL Calcium 7.0 L (8.4-10.2) mg/dL Total Protein 6.2 L (6.3-8.2) g/dL Albumin 3.2 L (3.5-5.0) g/dL Microbiology - Last 24 Hours (Table) 02/16/18 20:37 Urine Culture - Final Urine,Suprapubic Providencia stuartii Escherichia coli Providencia stuartii#2 Proteus Species Assessment and Plan Plan: #1 acute renal failure, with minimal improvement since yesterday, creatinine still elevated at 13.35 computed tomography scan of abdomen and pelvis reveals evidence of large left ureteral calculus with hydronephrosis. Patient is currently status post cystoscopy with left ureteral stent insertion with Dr. Charles yesterday at 02/16/2018. Nephrology services are following. Creatinine 2.89 and bun 62. Input from urology Dr. Charles reviewed #2 previous history of stroke #3 previous history of liver cirrhosis #4 anxiety disorder #5 underlying history of hypothyroidism. Synthroid resumed. TSH 0.907 #6 evidence of urinary tract infection on presentation #7 evidence of kidney stones on the right kidney on ultrasound done today however ultrasound was very limited it was stopped due to patient request due to pain there was no clear evidence of hydronephrosis #8. Hyperglycemia due to steroids. Patient currently on sliding scale coverage. Hemoglobin A1c 6.2 #9 left middle finger stiffness contracture. Patient seen by orthopedic services. No acute surgical intervention is indicated patient if she wishes to follow up with hand surgeon outpatient. #10 hypokalemia correcting #11 Patient improving possible tranfer to [facility] tomorrow DVT prophylaxis Lovenox. GI prophylaxis Pepcid
[2018-02-20 17:04] LABS: Glucose,Whole Blood 132 mg/dL (75-99)
[2018-02-20 20:47] LABS: Glucose,Whole Blood 111 mg/dL (75-99)
[2018-02-21] MEDS: SODIUM CHLORIDE 0.9% 1,000 ML IV SCH ×2 (00:43→13:43)
[2018-02-21] MEDS: HYDROcodone/APAP 10-325MG 1 EACH TAB PO PRN ×2 (00:43→13:59)
[2018-02-21] MEDS: ACETAMINOPHEN TAB 325 MG TAB PO SCH ×4 (00:48→16:56)
[2018-02-21] MEDS: LEVOTHYROXINE 25 MCG TAB PO SCH (05:21)
[2018-02-21 07:13] LABS: Glucose,Whole Blood 106 mg/dL (75-99)
[2018-02-21] MEDS: INSULIN ASPART 100 UNIT/ML 1 ML 10 ML VIAL SQ SCH ×4 (07:16→21:10)
[2018-02-21] MEDS: ENOXAPARIN 30 MG/0.3 ML SYRINGE SQ SCH (08:24)
[2018-02-21] MEDS: CIPROFLOXACIN HCL 500 MG TAB PO SCH (08:24)
[2018-02-21] MEDS: FAMOTIDINE 20 MG TAB PO SCH (08:24)
[2018-02-21] MEDS: CLOPIDOGREL 75 MG TAB PO SCH (08:24)
[2018-02-21 08:36] LABS: Basophils % (A) 0 %; Eosinophils # (A) 0.2 k/uL (0-0.7); Eosinophils % (A) 2 %; HCT 30.6 % (34.0-46.0); HGB 9.7 gm/dL (11.4-16.0); Hypochromasia Slight; Lymphocytes # (A) 1.5 k/uL (1.0-4.8); Lymphocytes % (A) 18 %; MCH 29.4 pg (25.0-35.0); MCHC 31.7 g/dL (31.0-37.0); MCV 92.7 fL (80.0-100.0); Mean Platelet Volume 6.5; Monocytes # (A) 0.4 k/uL (0-1.0); Monocytes % (A) 4 %; Neutrophils # (A) 6.4 k/uL (1.3-7.7); Neutrophils % (A) 75 %; Platelet Count 244 k/uL (150-450); RDW 15.5 % (11.5-15.5); WBC 8.6 k/uL (3.8-10.6)
[2018-02-21 09:01] LABS: Albumin 3.1 g/dL (3.5-5.0); Calcium 7.1 mg/dL (8.4-10.2); Potassium 3.7 mmol/L (3.5-5.1); Total Bilirubin 0.7 mg/dL (0.2-1.3)
[2018-02-21 11:36] LABS: Glucose,Whole Blood 189 mg/dL (75-99)
--- NOTE | 2018-02-21 13:57 | P.PN ---
Subjective Progress Note Date: 02/21/18 Radha Christensen is a 32 -year-old female resident [facility] who was sent to [facility] emergency room due to significantly abnormal labs, patient stated that she had some episodes of vomiting in the last week or so she had a blood test [facility] that revealed elevated creatinine of 13 and elevated BUN at 150 she was transferred to emergency room repeat labs in the emergency room revealed evidence of a BUN of 150 creatinine 15.4 and potassium level of 7.0 patient was admitted to telemetry floor nephrology consult was requested. Patient has a known history of previous history of stroke with residual left sided weakness she resides at a [facility] she has mild chronic renal failure with baseline creatinine of 1.4 There is also history of liver cirrhosis with ascites requiring previous episodes of paracentesis. On 02/16/2018 patient is alert and oriented 3 in no apparent distress computed tomography scan of the abdomen and pelvis was done and revealed a proximal left ureteric calculus causing left sided hydronephrosis with evidence of atrophy of the right kidney. Urology consultation was requested Dr. Charles aware, at this time trying to obtain consent from legal guardian to proceed with cystoscopy and left ureteral stent placement, clinically patient is stable and she is alert and oriented in no apparent distress she is complaining of abdominal discomfort otherwise no complaints at this time On 02/17/2018 patient is alert and oriented. Patient resting comfortably in bed with no complaints. Patient underwent cystoscopy with left ureteral stent insertion yesterday with Dr. Willson. Urine is currently growing gram- negative bacilli. Patient currently on Cipro. Creatinine 9.80, bun 119 and potassium 5.7 cm nephrology services are following. At this time patient denies chest pain or shortness of breath. Patient denies nausea vomiting or diarrhea. Patient does have Rosado catheter in place. On 02/18/2018 patient is currently resting in bed. Patient's creatinine improving to 5.10. Potassium also improving to 4.2. Patient remains on Cipro. Patient has good urine output the indwelling catheter. Patient denies chest pain or shortness of breath. Patient denies nausea vomiting or diarrhea. Patient denies any urinary burning or frequency. On 02/19/2018 patient was seen and examined on the telemetry floor she is alert and oriented 3 in no apparent distress kidney function improved significantly with BUN down to 62 and creatinine down to 2.89 potassium is low at 3.2 patient is feeling well and denies any complaints at this time she will be transferred off the telemetry floor to the general medical floor. On 02/20/2018 Patient is alert and oriented in no distress, she is afebrile there is no headache or dizziness no chest pain or shortness of breath no cough no nausea or vomiting no abdominal pain no burning was urination no frequency or urgency and no hematuria On 02/21/2018 patient is alert and oriented. Per nursing staff patient is having increased diarrhea. C. diff sample has been ordered. Creatinine improving to 1.74. Rosado catheter remains in place. At this time patient denies chest pain or shortness of breath. Patient denies any nausea or vomiting. Patient denies any urinary burning or frequency Objective - Vital Signs Vital signs: Vital Signs Temp 96.6 F L 02/21/18 06:15 Pulse 80 02/21/18 06:15 Resp 18 02/21/18 06:15 BP 133/72 02/21/18 06:15 Pulse Ox 95 02/21/18 06:15 Intake & Output 02/20/18 02/21/18 02/21/18 18:59 06:59 18:59 Intake Total 700 600 Output Total 1550 Balance 700 -1550 600 Intake: IV 700 600 Potassium Chloride 20 meq 100 In Water For Injection 1 100ml.bag @ 50 mls/hr IVPB ONCE STA Rx#: [id number] Sodium Chloride 0.9% 1, 600 600 000 ml @ 75 mls/hr IV . [id number] [facility] Rx#:[id number] Output: Urine 1550 Other: Voiding Method Indwelling Catheter Indwelling Catheter Indwelling Catheter - Exam HEENT head normocephalic and atraumatic Neck is supple no JVD no goiter no lymphadenopathy Chest exam reveals a few scattered rhonchi no wheezing Cardiac exam reveals regular heart sounds S1 and S2 no gallops no murmurs there is tachycardia Abdomen is soft nontender no organomegaly with normal bowel sounds Extremity exam reveals no edema no cyanosis or clubbing Neurological examination reveals left-sided weakness with contracture the left hand and left foot - Labs CBC & Chem 7: 02/21/18 07:59 02/21/18 07:50 Labs: Abnormal Lab Results - Last 24 Hours (Table) 02/20/18 02/20/1819 Range/Units 16:59 20:46 07:10 RBC (3.80-5.40) m/uL Hgb (11.4-16.0) gm/dL Hct (34.0-46.0) % Chloride (98-107) mmol/L BUN (7-17) mg/dL Creatinine (0.52-1.04) mg/dL Glucose (74-99) mg/dL POC Glucose (mg/dL) 132 H 111 H 106 H (75-99) mg/dL Calcium (8.4-10.2) mg/dL Total Protein (6.3-8.2) g/dL Albumin (3.5-5.0) g/dL 02/21/18 02/21/18 02/21/18 Range/Units 07:50 07:59 11:34 RBC 3.30 L (3.80-5.40) m/uL Hgb 9.7 L (11.4-16.0) gm/dL Hct 30.6 L (34.0-46.0) % Chloride 113 H (98-107) mmol/L BUN 28 H (7-17) mg/dL Creatinine 1.74 H (0.52-1.04) mg/dL Glucose 113 H (74-99) mg/dL POC Glucose (mg/dL) 189 H (75-99) mg/dL Calcium 7.1 L (8.4-10.2) mg/dL Total Protein 6.0 L (6.3-8.2) g/dL Albumin 3.1 L (3.5-5.0) g/dL Assessment and Plan Assessment: #1 acute renal failure, with minimal improvement since yesterday, creatinine still elevated at 13.35 computed tomography scan of abdomen and pelvis reveals evidence of large left ureteral calculus with hydronephrosis. Patient is currently status post cystoscopy with left ureteral stent insertion with Dr. Charles yesterday at 02/16/2018. Nephrology services are following. Creatinine improving to 1.74 and bun 28. #2 previous history of stroke #3 previous history of liver cirrhosis #4 anxiety disorder #5 underlying history of hypothyroidism. Synthroid resumed. TSH 0.907 #6 evidence of urinary tract infection on presentation #7 evidence of kidney stones on the right kidney on ultrasound done today however ultrasound was very limited it was stopped due to patient request due to pain there was no clear evidence of hydronephrosis #8. Hyperglycemia due to steroids. Patient currently on sliding scale coverage. Hemoglobin A1c 6.2 #9 left middle finger stiffness contracture. Patient seen by orthopedic services. No acute surgical intervention is indicated patient if she wishes to follow up with hand surgeon outpatient #10 hypokalemia. Resolved. Potassium 3.7 #11 diarrhea. C. diff sample has been ordered DVT prophylaxis Lovenox. GI prophylaxis Pepcid Awaiting on stool sample for C. diff. Patient will most likely be discharged to medical [facility] in the next 24- 48 hours I performed an examination of the patient and discussed their management with the Nurse Practitioner. I have reviewed the Nurse Practitioner's notes and agree with the documented findings and plan of care
[2018-02-21 17:06] LABS: Glucose,Whole Blood 133 mg/dL (75-99)
--- NOTE | 2018-02-21 17:29 | PN ---
PROGRESS NOTE Patient is seen for followup for acute kidney injury. Her renal function has improved significantly, with creatinine down from about 15 to 1.74 today. The patient has atrophic right kidney and she had obstructive uropathy with a calculus and is status post left ureteral stent placement. She also had urine retention and currently has an indwelling Rosado catheter. PHYSICAL EXAMINATION: On examination today, patient is doing well. Her blood pressure was 133/72, heart rate 80 per minute. She is afebrile. EXAMINATION OF THE HEART: S1, S2. EXAMINATION OF LUNGS: Bilateral breath sounds are heard. ABDOMEN: Soft, non-tender. Examination of lower extremities shows wasting of the muscles in the lower extremities. No significant edema is noted. Patient does not move her lower extremities much. LABS: Sodium 143, potassium 3.7, chloride 113, BUN 28, serum creatinine 1.74, hemoglobin 9.7 g/dL. ASSESSMENT: 1. Acute kidney injury, mainly obstructive uropathy, with atrophic right kidney, status post left ureteral stent, currently significantly improved. 2. Urine retention with indwelling Rosado catheter. Patient is being followed by Urology. 3. Metabolic acidosis secondary to renal failure, currently resolved. 4. Hypokalemia, status post replacement. 5. Urinary tract infection with urine cultures growing providencia, Escherichia coli and proteus from suprapubic collection; however, catheterized specimen only grew proteus. Patient is maintained on antibiotics and doing well. PLAN: No changes from nephrology standpoint. Continue to encourage increased oral intake. Encourage increased oral intake. May decrease IV fluids if patient is eating well. MMODL / IJN: [id number] /
[2018-02-21 20:32] LABS: Glucose,Whole Blood 128 mg/dL (75-99)
[2018-02-22] MEDS: SODIUM CHLORIDE 0.9% 1,000 ML IV SCH (00:49)
[2018-02-22] MEDS: ACETAMINOPHEN TAB 325 MG TAB PO SCH ×3 (00:51→11:49)
[2018-02-22 01:02] VITALS: TEMP 98.4
[2018-02-22] MEDS: HYDROcodone/APAP 10-325MG 1 EACH TAB PO PRN ×2 (04:02→12:10)
[2018-02-22] MEDS: LEVOTHYROXINE 25 MCG TAB PO SCH (05:41)
[2018-02-22 07:16] LABS: Glucose,Whole Blood 115 mg/dL (75-99)
[2018-02-22 07:58] VITALS: BP 120/62; PULSE 68
[2018-02-22] MEDS: INSULIN ASPART 100 UNIT/ML 1 ML 10 ML VIAL SQ SCH ×2 (08:14→11:48)
[2018-02-22] MEDS: CLOPIDOGREL 75 MG TAB PO SCH (08:16)
[2018-02-22] MEDS: CIPROFLOXACIN HCL 500 MG TAB PO SCH (08:16)
[2018-02-22] MEDS: FAMOTIDINE 20 MG TAB PO SCH (08:16)
[2018-02-22 08:46] LABS: Calcium 7.1 mg/dL (8.4-10.2); Potassium 3.3 mmol/L (3.5-5.1); Total Bilirubin 0.6 mg/dL (0.2-1.3)
[2018-02-22 08:53] LABS: Anisocytosis Slight; Basophils % (A) 0 %; Eosinophils # (A) 0.2 k/uL (0-0.7); Eosinophils % (A) 2 %; HCT 31.9 % (34.0-46.0); HGB 9.7 gm/dL (11.4-16.0); Hypochromasia Slight; Lymphocytes # (A) 1.5 k/uL (1.0-4.8); Lymphocytes % (A) 18 %; MCH 28.7 pg (25.0-35.0); MCHC 30.4 g/dL (31.0-37.0); MCV 94.4 fL (80.0-100.0); Mean Platelet Volume 6.6; Monocytes # (A) 0.3 k/uL (0-1.0); Monocytes % (A) 3 %; Neutrophils # (A) 6.2 k/uL (1.3-7.7); Neutrophils % (A) 76 %; Platelet Count 206 k/uL (150-450); RBC 3.39 m/uL (3.80-5.40); RDW 16.1 % (11.5-15.5); WBC 8.2 k/uL (3.8-10.6)
[2018-02-22] MEDS ORDERED: ENOXAPARIN 40 MG/0.4 ML SYRINGE SQ SCH (09:00)
[2018-02-22] MEDS ORDERED: POTASSIUM CHLORIDE ER 20 MEQ TAB.ER PO STA (09:33)
--- NOTE | 2018-02-22 09:35 | P.PN ---
Subjective Patient is seen in follow for acute kidney injury. Patient was noted to have left-sided hydronephrosis and had a stent placed on admission. Creatinine down to 1.68 today. Admits to good urine output. Oral intake is good. No vomiting or diarrhea. Vital signs are stable. General: The patient appeared well nourished and normally developed. HEENT: Head exam is unremarkable. Neck is without jugular venous distension. LUNGS: Lungs are clear to auscultation and percussion. Breath sounds decreased. HEART: Rate and Rhythm are regular. First and second heart sounds normal. No murmurs, rubs or gallops. ABDOMEN: Abdominal exam reveals normal bowel sounds. Non-tender and non- distended. No evidence of peritonitis. EXTREMITITES: No clubbing, cyanosis, or edema. Objective - Vital Signs Vital signs: Vital Signs Temp 98.4 F 02/22/18 07:00 Pulse 68 02/22/18 07:00 Resp 18 02/22/18 07:00 BP 120/62 02/22/18 07:00 Pulse Ox 100 02/22/18 07:00 Intake & Output 02/21/18 02/22/18 02/22/18 18:59 06:59 18:59 Intake Total 600 550 Output Total 1100 Balance -500 550 Weight 117 kg Intake: IV 600 Sodium Chloride 0.9% 1, 600 000 ml @ 75 mls/hr IV . [id number] [facility] Rx#:[id number] Oral 550 Output: Urine 1100 Other: Voiding Method Incontinent Incontinent Incontinent # Voids 1 2 # Bowel Movements 1 - Labs CBC & Chem 7: 02/22/18 08:06 02/22/18 08:06 Labs: Abnormal Lab Results - Last 24 Hours (Table) 02/21/18 02/21/18 02/21/18 Range/Units 11:34 17:04 20:19 RBC (3.80-5.40) m/uL Hgb (11.4-16.0) gm/dL Hct (34.0-46.0) % MCHC (31.0-37.0) g/dL RDW (11.5-15.5) % Potassium (3.5-5.1) mmol/L Chloride (98-107) mmol/L Carbon Dioxide (22-30) mmol/L BUN (7-17) mg/dL Creatinine (0.52-1.04) mg/dL Glucose (74-99) mg/dL POC Glucose (mg/dL) 189 H 133 H 128 H (75-99) mg/dL Calcium (8.4-10.2) mg/dL Total Protein (6.3-8.2) g/dL Albumin (3.5-5.0) g/dL 02/22/18 02/22/18 02/22/18 Range/Units 07:13 08:06 08:06 RBC 3.39 L (3.80-5.40) m/uL Hgb 9.7 L (11.4-16.0) gm/dL Hct 31.9 L (34.0-46.0) % MCHC 30.4 L (31.0-37.0) g/dL RDW 16.1 H (11.5-15.5) % Potassium 3.3 L (3.5-5.1) mmol/L Chloride 113 H (98-107) mmol/L Carbon Dioxide 21 L (22-30) mmol/L BUN 20 H (7-17) mg/dL Creatinine 1.68 H (0.52-1.04) mg/dL Glucose 111 H (74-99) mg/dL POC Glucose (mg/dL) 115 H (75-99) mg/dL Calcium 7.1 L (8.4-10.2) mg/dL Total Protein 6.0 L (6.3-8.2) g/dL Albumin 3.0 L (3.5-5.0) g/dL Assessment and Plan Plan: Assessment: 1. Nonoliguric acute kidney injury secondary to obstructive uropathy. Creatinine down to 1.68 today. 2. Obstructive uropathy status post left ureteral stent placement. 3. Hypokalemia from poor oral intake and postobstructive diuresis. 4. Right renal atrophy. 5. UTI. Culture positive for Providencia, Proteus, and E. coli. Maintained on antibiotics. 5. Metabolic acidosis secondary to IV fluids and acute kidney injury. Plan: Maintain normal saline at 75 mL an hour. Replace potassium. 40 mEq today. Check magnesium level. Encouraged oral intake.
[2018-02-22] MEDS ORDERED: Potassium Replacement Protocol 1 EACH MISC MISCELLANE PRN (10:20)
[2018-02-22] MEDS ORDERED: POTASSIUM CHLORIDE ER 20 MEQ TAB.ER PO SCH (11:00)
--- NOTE | 2018-02-22 11:04 | P.DS ---
Providers Date of admission: 02/15/18 07:28 Expected date of discharge: 02/22/18 Attending physician: Roberto Knight Consults: 02/15/18 08:21 Consult Physician Stat Consulting Provider: Derrick Bravo Consult Reason/Comments: arf Do you want consulting provider notified?: Already Contacted 02/16/18 11:18 Consult Physician Urgent Consulting Provider: Mac Charles Consult Reason/Comments: left hydronephrosis Do you want consulting provider notified?: Yes 02/17/18 13:42 Consult Physician Routine Consulting Provider: Yonathan Tripp Consult Reason/Comments: left finger deformity Do you want consulting provider notified?: Yes Primary care physician: Robertoalex Knight [facility] Course: Discharge diagnosis #1 acute renal failure, with minimal improvement since yesterday, creatinine still elevated at 13.35 computed tomography scan of abdomen and pelvis reveals evidence of large left ureteral calculus with hydronephrosis. Patient is currently status post cystoscopy with left ureteral stent insertion with Dr. Charles yesterday at 02/16/2018. Creatinine 1.68 and bun 20. Patient stable for discharge from nephrology standpoint. Repeat CMP will be ordered for Saturday along with magnesium level. Patient will be DC'd on 7 more days and will follow-up with urology services in 2 weeks #2 previous history of stroke #3 previous history of liver cirrhosis #4 anxiety disorder #5 underlying history of hypothyroidism. Synthroid resumed. TSH 0.907 #6 evidence of urinary tract infection on presentation #7 evidence of kidney stones on the right kidney on ultrasound done today however ultrasound was very limited it was stopped due to patient request due to pain there was no clear evidence of hydronephrosis #8. Hyperglycemia due to steroids. Patient currently on sliding scale coverage. Hemoglobin A1c 6.2 #9 left middle finger stiffness contracture. Patient seen by orthopedic services. No acute surgical intervention is indicated patient if she wishes to follow up with hand surgeon outpatient #10 hypokalemia. Resolved. Potassium 3.3. Magnesium will be checked. Patient CMP will be checked on Saturday #11 diarrhea. C. diff sample has been ordered. C. diff negative Hospital course Radha Christensen is a 32 -year-old female resident of care home who was sent to [facility] emergency room due to significantly abnormal labs, patient stated that she had some episodes of vomiting in the last week or so she had a blood test at the care home that revealed elevated creatinine of 13 and elevated BUN at 150 she was transferred to emergency room repeat labs in the emergency room revealed evidence of a BUN of 150 creatinine 15.4 and potassium level of 7.0 patient was admitted to telemetry floor nephrology consult was requested. Patient has a known history of previous history of stroke with residual left sided weakness she resides at a care home she has mild chronic renal failure with baseline creatinine of 1.4 There is also history of liver cirrhosis with ascites requiring previous episodes of paracentesis. On 02/16/2018 patient is alert and oriented 3 in no apparent distress computed tomography scan of the abdomen and pelvis was done and revealed a proximal left ureteric calculus causing left sided hydronephrosis with evidence of atrophy of the right kidney. Urology consultation was requested Dr. Charles aware, at this time trying to obtain consent from legal guardian to proceed with cystoscopy and left ureteral stent placement, clinically patient is stable and she is alert and oriented in no apparent distress she is complaining of abdominal discomfort otherwise no complaints at this time On 02/17/2018 patient is alert and oriented. Patient resting comfortably in bed with no complaints. Patient underwent cystoscopy with left ureteral stent insertion yesterday with Dr. Willson. Urine is currently growing gram- negative bacilli. Patient currently on Cipro. Creatinine 9.80, bun 119 and potassium 5.7 cm nephrology services are following. At this time patient denies chest pain or shortness of breath. Patient denies nausea vomiting or diarrhea. Patient does have Rosado catheter in place. On 02/18/2018 patient is currently resting in bed. Patient's creatinine improving to 5.10. Potassium also improving to 4.2. Patient remains on Cipro. Patient has good urine output the indwelling catheter. Patient denies chest pain or shortness of breath. Patient denies nausea vomiting or diarrhea. Patient denies any urinary burning or frequency. On 02/19/2018 patient was seen and examined on the telemetry floor she is alert and oriented 3 in no apparent distress kidney function improved significantly with BUN down to 62 and creatinine down to 2.89 potassium is low at 3.2 patient is feeling well and denies any complaints at this time she will be transferred off the telemetry floor to the general medical floor. On 02/20/2018 Patient is alert and oriented in no distress, she is afebrile there is no headache or dizziness no chest pain or shortness of breath no cough no nausea or vomiting no abdominal pain no burning was urination no frequency or urgency and no hematuria On 02/21/2018 patient is alert and oriented. Per nursing staff patient is having increased diarrhea. C. diff sample has been ordered. Creatinine improving to 1.74. Rosado catheter remains in place. At this time patient denies chest pain or shortness of breath. Patient denies any nausea or vomiting. Patient denies any urinary burning or frequency On 02/22/2018 patient is alert and oriented. She has been cleared from consulting providers to be discharged back to [facility]. C. diff sample negative. Creatinine continuing to improve. Blood catheter has been removed. Neurology orders. Patient will be DC'd on Cipro for 10 more days. Patient will follow-up with urology services in 2 weeks. CMP, CBC and magnesium level ordered for 2 days. At this time patient denies chest pain or shortness breath. Patient denies nausea vomiting or diarrhea. Denies any urinary burning or frequency. I performed an examination of the patient and discussed their management with the Nurse Practitioner. I have reviewed the Nurse Practitioner's notes and agree with the documented findings and plan of care Patient Condition at Discharge: Stable Plan - Discharge Summary Discharge Rx Participant: No New Discharge Prescriptions: New Ciprofloxacin HCl [Cipro] 500 mg PO DAILY #20 tab Continue Magnesium Hydroxide [Milk of Magnesia] 2,400 mg PO Q72H PRN PRN Reason: Constipation Melatonin 5 mg PO HS PRN PRN Reason: Insomnia Loperamide [Imodium] 4 mg PO DAILY PRN PRN Reason: first loose stool Loperamide [Imodium] 2 mg PO Q8HR PRN PRN Reason: Diarrhea Sennosides [Senokot] 8.6 mg PO BID clonazePAM [KlonoPIN] 0.5 mg PO BID PRN PRN Reason: Anxiety FLUoxetine HCL [PROzac] 20 mg PO HS PRN PRN Reason: depression Multivitamins, Thera [Multivitamin (formulary)] 1 tab PO DAILY Levothyroxine Sodium [Synthroid] 25 mcg PO DAILY clonazePAM [KlonoPIN] 1.5 mg PO HS PRN PRN Reason: Anxiety Ergocalciferol (Vitamin D2) [Drisdol] 50,000 unit PO Q28H Clopidogrel [Plavix] 75 mg PO DAILY Acetaminophen Tab [Tylenol] 650 mg PO Q6H HYDROcodone/APAP 10-325MG [Acme 10-325] 1 tab PO Q4H PRN #18 tab PRN Reason: Pain Discontinued Ibuprofen [Motrin Ib] 400 mg PO Q12HR PRN PRN Reason: Pain Midodrine HCl 5 mg PO TID@0800,1200,1900 Discharge Medication List Acetaminophen Tab [Tylenol] 650 mg PO Q6H 02/15/18 [History] Clopidogrel [Plavix] 75 mg PO DAILY 02/15/18 [History] Ergocalciferol (Vitamin D2) [Drisdol] 50,000 unit PO Q28H 02/15/18 [History] FLUoxetine HCL [PROzac] 20 mg PO HS PRN 02/15/18 [History] Levothyroxine Sodium [Synthroid] 25 mcg PO DAILY 02/15/18 [History] Loperamide [Imodium] 2 mg PO Q8HR PRN 02/15/18 [History] Loperamide [Imodium] 4 mg PO DAILY PRN 02/15/18 [History] Magnesium Hydroxide [Milk of Magnesia] 2,400 mg PO Q72H PRN 02/15/18 [History] Melatonin 5 mg PO HS PRN 02/15/18 [History] Multivitamins, Thera [Multivitamin (formulary)] 1 tab PO DAILY 02/15/18 [History ] Sennosides [Senokot] 8.6 mg PO BID 02/15/18 [History] clonazePAM [KlonoPIN] 0.5 mg PO BID PRN 02/15/18 [History] clonazePAM [KlonoPIN] 1.5 mg PO HS PRN 02/15/18 [History] Ciprofloxacin HCl [Cipro] 500 mg PO DAILY #20 tab 02/22/18 [Rx] HYDROcodone/APAP 10-325MG [Acme 10-325] 1 tab PO Q4H PRN #18 tab 02/22/18 [Rx] Follow up Appointment(s)/Referral(s): Mac Charles MD [STAFF PHYSICIAN] - 1 Week Roberto Knight MD [Primary Care Provider] - 1-2 days Ambulatory/Diagnostic Orders: Complete Blood Count w/diff [LAB.AMB] Time Frame: 2 Days, Location: None Selected Comprehensive Metabolic Panel [LAB.AMB] Time Frame: 2 Days, Location: None Selected Magnesium [LAB.AMB] Time Frame: 2 Days, Location: None Selected Activity/Diet/Wound Care/Special Instructions: ECF She will be transferred back to [facility] where she is a long-term resident. Patient will be followed by Dr. Dr. Knight Diet renal Activity as tolerated BMP, CBC and magnesium level ordered for 02/24/2018 Patient will be DC'd on Cipro antibiotic for 2 more days Per urology services patient will be scheduled for an outpatient cystoscopy with left ureteral stent removal left ureteroscopy and Candida M laser lithotripsy. Patient to follow-up in 2 weeks with urology services Discharge Disposition: TRANSFER TO SNF/ECF
[2018-02-22 12:03] LABS: Glucose,Whole Blood 124 mg/dL (75-99)
[2018-03-07] MEDS ORDERED: ERGOCALCIFEROL 50,000 UNIT CAP PO SCH (12:00)
== END 2018-02-22 14:27 | DRG 660 ==
LOC: EC 05:50 → 3SCARD 07:28 → 4MS4W 02-19 19:32
PROVIDERS: ADMIT Internal Medicine; ATTEND Internal Medicine
PROC: 0T778DZ Dilation of Left Ureter with Intraluminal Device, Via Natural or Artificial Opening Endoscopic (ICD-10-PCS; principal; 2018-02-16 19:15)
DX: N13.6 Pyonephrosis (principal); E87.2 Acidosis; I69.354 Hemiplegia and hemiparesis following cerebral infarction affecting left non-dominant side; N17.9 Acute kidney failure, unspecified; B96.20 Unspecified Escherichia coli [E. coli] as the cause of diseases classified elsewhere; B96.4 Proteus (mirabilis) (morganii) as the cause of diseases classified elsewhere; E03.9 Hypothyroidism, unspecified; E86.9 Volume depletion, unspecified; E87.5 Hyperkalemia; E87.6 Hypokalemia; F32.9 Major depressive disorder, single episode, unspecified; F40.00 Agoraphobia, unspecified; F41.0 Panic disorder [episodic paroxysmal anxiety]; I25.2 Old myocardial infarction; M20.029 Boutonniere deformity of unspecified finger(s); M20.022 Boutonniere deformity of left finger(s); N18.2 Chronic kidney disease, stage 2 (mild); N26.1 Atrophy of kidney (terminal); T38.0X5A Adverse effect of glucocorticoids and synthetic analogues, initial encounter; R73.9 Hyperglycemia, unspecified; E66.01 Morbid (severe) obesity due to excess calories; R19.7 Diarrhea, unspecified; R27.8 Other lack of coordination; T39.395A Adverse effect of other nonsteroidal anti-inflammatory drugs [NSAID], initial encounter; T50.995A Adverse effect of other drugs, medicaments and biological substances, initial encounter; T50.2X5A Adverse effect of carbonic-anhydrase inhibitors, benzothiadiazides and other diuretics, initial encounter; B96.89 Other specified bacterial agents as the cause of diseases classified elsewhere; Z79.02 Long term (current) use of antithrombotics/antiplatelets; Z79.890 Hormone replacement therapy; Z79.899 Other long term (current) drug therapy; Z87.891 Personal history of nicotine dependence; Z90.49 Acquired absence of other specified parts of digestive tract; Z88.6 Allergy status to analgesic agent; Z88.8 Allergy status to other drugs, medicaments and biological substances; Z87.442 Personal history of urinary calculi; Z80.1 Family history of malignant neoplasm of trachea, bronchus and lung
CPT/HCPCS: 36415; 51702; 74176; 76770; 80048; 80053; 81001; 82570; 83036; 84100; 84132; 84156; 84443; 85025; 85027; 85610; 85730; 86304; 87077; 87086; 87186; 87205; 87324; 93005; 96361; 96374; 96375; 99285

== ENCOUNTER 2018-07-15 15:00 | Inpatient (IN) | payer OTHER ==
[2018-07-15] MEDS ORDERED: SODIUM CHLORIDE 0.9% 500 ML 500 ML IV STA (16:39)
--- NOTE | 2018-07-15 16:58 | ED ---
General Adult HPI - General Chief complaint: Recheck/Abnormal Lab/Rx Time Seen by Provider: 07/15/18 15:30 Source: EMS, RN notes reviewed Mode of arrival: EMS - History of Present Illness Initial comments: This is a 33-year-old female who presents to the emergency department from [facility]. Patient was sent in because her potassium and creatinine were elevated and according to the report the patient was weak. 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 Patient does not know any of her medical problems. Patient is aware that it's July 2018 but has no self awareness. No one is with the patient to give any further history at this time we have no further history I will be repeating labs. Patient currently has no complaints whatsoever. Patient denied chest pain. Patient denied a headache. Patient denies any numbness weakness. Patient denies any shortness of breath or difficulty breathing. Patient denies abdominal pain. - Related Data Home Medications Medication Instructions Recorded Confirmed Acetaminophen Tab [Tylenol] 650 mg PO Q6H PRN 02/15/18 07/15/18 Clopidogrel [Plavix] 75 mg PO DAILY 02/15/18 07/15/18 Ergocalciferol (Vitamin D2) 50,000 unit PO Q30D 02/15/18 07/15/18 [Drisdol] FLUoxetine HCL [PROzac] 20 mg PO DAILY 02/15/18 07/15/18 Levothyroxine Sodium [Synthroid] 25 mcg PO DAILY 02/15/18 07/15/18 Magnesium Hydroxide [Milk of 2,400 mg PO Q72H PRN 02/15/18 07/15/18 Magnesia] Melatonin 5 mg PO HS 02/15/18 07/15/18 Multivitamins, Thera [Multivitamin 1 tab PO DAILY 02/15/18 07/15/18 (formulary)] Sennosides [Senokot] 8.6 mg PO BID 02/15/18 07/15/18 Magnesium Oxide [Mag-Ox] 400 mg PO BID@0800,1600 07/15/18 07/15/18 Previous Rx's Medication Instructions Recorded Ertapenem [INVanz] 0.5 gm IVPB DAILY 7 Days #7 vial 07/22/18 HYDROcodone/APAP 7.5-325MG [[place] 1 tab PO Q8H PRN 14 Days #42 tab 07/22/18 7.5-325] clonazePAM [KlonoPIN] 0.5 mg PO HS 14 Days #14 tablet 07/22/18 Allergies Allergy/AdvReac Type Severity Reaction Status Date / Time aspirin Allergy Unknown Verified 07/17/18 10:32 ibuprofen [From Motrin] Allergy Unknown Verified 07/17/18 10:32 sertraline HCl [From Zoloft] Allergy Unknown Verified 07/17/18 10:32 zolpidem tartrate Allergy Unknown Verified 07/17/18 10:32 [From Ambien] gabapentin [From Neurontin] AdvReac Severe Unknown Verified 07/17/18 10:32 Review of Systems ROS Statement: Those systems with pertinent positive or pertinent negative responses have been documented in the HPI. ROS Other: All systems not noted in ROS Statement are negative. Past Medical History Past Medical History: CVA/TIA, Myocardial Infarction ([place]) Additional Past Medical History / Comment(s): morbid obesity, pancreatitis, history of coma - 10/24/14 - until end of december after suffering from a stroke. Last Myocardial Infarction Date:: 10/2014 History of Any Multi-Drug Resistant Organisms: ESBL Date of last positivie culture/infection: 02/16/17 MDRO Source:: urine Past Surgical History: Cholecystectomy Past Anesthesia/Blood Transfusion Reactions: No Reported Reaction Past Psychological History: Anxiety, Depression, Panic Disorder Smoking Status: Never smoker Past Alcohol Use History: Heavy Past Drug Use History: None Reported - Past Family History Father History Unknown: Yes Family Medical History: Cancer Additional Family Medical History / Comment(s): lung General Exam - General Exam Comments Initial Comments: GENERAL: Patient is well-developed and well-nourished. Patient is nontoxic and well- hydrated and is in no acute distress. ENT: Neck is soft and supple. No significant lymphadenopathy is noted. Oropharynx is clear. Moist mucous membranes. Neck has full range of motion without eliciting any pain. EYES: The sclera were anicteric and conjunctiva were pink and moist. Extraocular movements were intact and pupils were equal round and reactive to light. Eyelids were unremarkable. PULMONARY: Unlabored respirations. Good breath sounds bilaterally. No audible rales rhonchi or wheezing was noted. CARDIOVASCULAR: There is a regular rate and rhythm without any murmurs gallops or rubs. ABDOMEN: Soft and nontender with normal bowel sounds. No palpable organomegaly was noted. There is no palpable pulsatile mass. SKIN: Skin is clear with no lesions or rashes and otherwise unremarkable. NEUROLOGIC: Patient is alert and oriented x3 but is not oriented to her situational why she is here currently.. Cranial nerves II through XII are grossly intact. Normal speech, volume and content. Symmetrical smile. Bilateral manager department are normal however leg strength is weak with lifting the leg and plantar and dorsiflexion but equally bilaterally MUSCULOSKELETAL: Normal extremities with adequate strength and full range of motion. No lower extremity swelling or edema. No calf tenderness. LYMPHATICS: No significant lymphadenopathy is noted Course Vital Signs 07/15/18 07/15/18 07/15/18 16:37 17:41 19:00 Temperature 98.6 F Pulse Rate 97 103 H 103 H Respiratory 18 18 18 Rate Blood Pressure 162/111 152/103 138/93 O2 Sat by Pulse 96 97 97 Oximetry 07/15/18 07/15/18 19:27 21:53 Temperature Pulse Rate 100 64 Respiratory 18 18 Rate Blood Pressure 138/93 135/86 O2 Sat by Pulse 97 98 Oximetry Medical Decision Making - Medical Decision Making EKG shows normal sinus rhythm at 97 bpm MS interval is 190 QRS is 94 QT interval 36 QTC is 490. Patient's EKG shows no ST segment elevation or depression or T wave abnormalities are noted. Patient's potassium was 7.8 slightly give the patient calcium chloride, D50 1 amp, insulin regular 10 units, 2 A of bicarb, and Kayexalate. I spoke with Dr. Smith he wanted the patient started on the bicarb drip and have potassium repeated 3 hours. I wrote these orders. I consulted Dr. Bennett because it was placed the patient in ICU he accepted the patient. I spoke with Dr. Knight he agreed to admit the patient. I wrote admitting orders. I continue the bicarb on the floor. - Lab Data Result diagrams: 07/23/18 09:43 07/23/18 09:43 Lab Results 07/15/18 07/15/18 07/15/18 Range/Units 15:28 15:28 15:28 WBC 8.8 (3.8-10.6) k/uL RBC 4.09 (3.80-5.40) m/uL Hgb 11.3 L (11.4-16.0) gm/dL Hct 35.3 (34.0-46.0) % MCV 86.2 D (80.0-100.0) fL MCH 27.7 (25.0-35.0) pg MCHC 32.2 (31.0-37.0) g/dL RDW 15.8 H (11.5-15.5) % Plt Count 233 (150-450) k/uL Neutrophils % 82 % Lymphocytes % 11 % Monocytes % 5 % Eosinophils % 1 % Basophils % 0 % Neutrophils # 7.2 (1.3-7.7) k/uL Lymphocytes # 0.9 L (1.0-4.8) k/uL Monocytes # 0.4 (0-1.0) k/uL Eosinophils # 0.1 (0-0.7) k/uL Basophils # 0.0 (0-0.2) k/uL Hypochromasia Slight PT (9.0-12.0) sec INR (<1.2) APTT (22.0-30.0) sec Sodium 135 L (137-145) mmol/L Potassium 7.8 H* (3.5-5.1) mmol/L Chloride 101 (98-107) mmol/L Carbon Dioxide 14 L (22-30) mmol/L Anion Gap 20 mmol/L BUN 198 H* (7-17) mg/dL Creatinine 17.72 H* (0.52-1.04) mg/dL Est GFR (CKD-EPI)AfAm 3 (>60 ml/min/1.73 sqM) Est GFR (CKD-EPI)NonAf 2 (>60 ml/min/1.73 sqM) Glucose 121 H (74-99) mg/dL POC Glucose (mg/dL) (75-99) mg/dL POC Glu Complex Care Nurse ID Plasma Lactic Acid Montrell 0.5 L (0.7-2.0) mmol/L Calcium 7.7 L (8.4-10.2) mg/dL Total Bilirubin 0.4 (0.2-1.3) mg/dL AST 8 L (14-36) U/L ALT <6 L (9-52) U/L Alkaline Phosphatase 103 (38-126) U/L Troponin I (0.000-0.034) ng/mL Total Protein 7.1 (6.3-8.2) g/dL Albumin 3.3 L (3.5-5.0) g/dL 07/15/18 07/15/18 07/15/18 Range/Units 15:28 15:28 18:04 WBC (3.8-10.6) k/uL RBC (3.80-5.40) m/uL Hgb (11.4-16.0) gm/dL Hct (34.0-46.0) % MCV (80.0-100.0) fL MCH (25.0-35.0) pg MCHC (31.0-37.0) g/dL RDW (11.5-15.5) % Plt Count (150-450) k/uL Neutrophils % % Lymphocytes % % Monocytes % % Eosinophils % % Basophils % % Neutrophils # (1.3-7.7) k/uL Lymphocytes # (1.0-4.8) k/uL Monocytes # (0-1.0) k/uL Eosinophils # (0-0.7) k/uL Basophils # (0-0.2) k/uL Hypochromasia PT 11.0 (9.0-12.0) sec INR 1.0 (<1.2) APTT 31.5 H (22.0-30.0) sec Sodium (137-145) mmol/L Potassium (3.5-5.1) mmol/L Chloride (98-107) mmol/L Carbon Dioxide (22-30) mmol/L Anion Gap mmol/L BUN (7-17) mg/dL Creatinine (0.52-1.04) mg/dL Est GFR (CKD-EPI)AfAm (>60 ml/min/1.73 sqM) Est GFR (CKD-EPI)NonAf (>60 ml/min/1.73 sqM) Glucose (74-99) mg/dL POC Glucose (mg/dL) 124 H (75-99) mg/dL POC Glu Complex Care Nurse ID Duron, Marisela, A Plasma Lactic Acid Montrell (0.7-2.0) mmol/L Calcium (8.4-10.2) mg/dL Total Bilirubin (0.2-1.3) mg/dL AST (14-36) U/L ALT (9-52) U/L Alkaline Phosphatase (38-126) U/L Troponin I 0.014 (0.000-0.034) ng/mL Total Protein (6.3-8.2) g/dL Albumin (3.5-5.0) g/dL Critical Care Time Critical Care Time: Yes Total Critical Care Time: 35 Disposition Clinical Impression: Hyperkalemia, Acute renal failure, Urinary tract infection Disposition: ADMITTED IP TO THIS HOSP Condition: Stable Time of Disposition: 18:51
[2018-07-15 17:05] LABS: Basophils % (A) 0 %; Eosinophils # (A) 0.1 k/uL (0-0.7); Eosinophils % (A) 1 %; HCT 35.3 % (34.0-46.0); HGB 11.3 gm/dL (11.4-16.0); Hypochromasia Slight; Lymphocytes # (A) 0.9 k/uL (1.0-4.8); Lymphocytes % (A) 11 %; MCH 27.7 pg (25.0-35.0); MCHC 32.2 g/dL (31.0-37.0); Mean Platelet Volume 7.2; Monocytes # (A) 0.4 k/uL (0-1.0); Monocytes % (A) 5 %; Neutrophils # (A) 7.2 k/uL (1.3-7.7); Neutrophils % (A) 82 %; Platelet Count 233 k/uL (150-450); RBC 4.09 m/uL (3.80-5.40); RDW 15.8 % (11.5-15.5); WBC 8.8 k/uL (3.8-10.6)
[2018-07-15 17:06] LABS: ALT <6 U/L (9-52); AST 8 U/L (14-36); Albumin 3.3 g/dL (3.5-5.0); Alkaline Phosphatase 103 U/L (38-126); Anion Gap 20 mmol/L; Calcium 7.7 mg/dL (8.4-10.2); Carbon Dioxide 14 mmol/L (22-30); Chloride 101 mmol/L (98-107); Glucose 121 mg/dL (74-99); Sodium 135 mmol/L (137-145); Total Bilirubin 0.4 mg/dL (0.2-1.3); Total Protein 7.1 g/dL (6.3-8.2)
[2018-07-15 17:08] LABS: Partial Thromboplastin Time 31.5 sec (22.0-30.0)
[2018-07-15 17:09] LABS: MCV 86.2 fL (80.0-100.0)
--- NOTE | 2018-07-15 17:10 | XR ---
EXAMINATION: XR chest 2V DATE AND TIME: 07/15/2018 4:56 PM CLINICAL INDICATION: PHH; Weakness TECHNIQUE: Departmental protocol COMPARISON: 10/18/2014 FINDINGS: The overlying soft tissues are prominent, limiting visualization. Also limiting visualization of the fact that the hemidiaphragms are both elevated, particularly on the right, consistent with relatively low lung inflation at the moment of x-ray inflation on both the frontal and the lateral radiographs. The visualized inflated lungs are clear. The pleural spaces are negative. The cardiac silhouette is not enlarged. The remainder of the mediastinal silhouette is unremarkable. The skeletal structures and soft tissues are negative for acute findings. IMPRESSION: Negative as seen, but limited evaluation.
[2018-07-15 17:12] LABS: African American GFR (CKD) 3 (>60 ml/min/1.73 sqM)
[2018-07-15 17:19] LABS: Potassium 7.8 mmol/L (3.5-5.1)
[2018-07-15 17:20] LABS: Blood Urea Nitrogen 198 mg/dL (7-17)
[2018-07-15] MEDS ORDERED: CALCIUM CHLORIDE 100 MG/ML 10 ML SYRINGE IVP STA (17:23)
[2018-07-15] MEDS ORDERED: SODIUM BICARB 8.4% 50 ML SYR (1 MEQ/ML) IV STA ×4 (17:23→21:09)
[2018-07-15] MEDS ORDERED: INSULIN REGULAR 100 UNIT/ML VIAL IV ONE ×2 (17:23→21:02)
[2018-07-15] MEDS ORDERED: DEXTROSE 50% SYRINGE 50 ML IVP STA ×2 (17:24→21:02)
[2018-07-15] MEDS ORDERED: SODIUM POLYSTYRENE SULFONATE 15 GM/60 ML BOTTLE PO STA (17:24)
[2018-07-15] MEDS ORDERED: IPRATROPIUM-ALBUTEROL 3 ML NEB INHALATION STA (17:24)
[2018-07-15] MEDS ORDERED: SODIUM CHLORIDE 0.9% 1,000 ML IV ONE (17:44)
[2018-07-15 18:07] LABS: Glucose,Whole Blood 124 mg/dL (75-99)
[2018-07-15] MEDS ORDERED: CALCIUM GLUCONATE 1 GM in SODIUM CHLORIDE 0.9% 100 ML IVPB ONE ×2 (18:45→21:30)
[2018-07-15] MEDS ORDERED: NALOXONE 0.4 MG/ML 1 ML VIAL IV PRN (19:00)
[2018-07-15 19:23] LABS: Appearance,Urine Turbid (Clear); Bacteria,Urine Few /hpf; Bilirubin,Urine Negative (Negative); Blood,Urine Moderate (Negative); Budding Yeast,Urine Many /hpf; Color,Urine Yellow; Glucose,Urine (UA) 2+ (Negative); Ketones,Urine Trace (Negative); Leukocyte Esterase,Urine Large (Negative); Nitrite,Urine Negative (Negative); Protein,Urine 3+ (Negative); RBC,Urine >182 /hpf (0-5); Specific Gravity,Urine 1.022 (1.001-1.035); Urobilinogen,Urine <2.0 mg/dL (<2.0); WBC,Urine >182 /hpf (0-5)
[2018-07-15 19:33] LABS: Glucose,Whole Blood 168 mg/dL (75-99)
[2018-07-15] MEDS: DEXTROSE 5% IN WATER 1,000 ML with SODIUM BICARB (1 MEQ/ML) 150 ML IV SCH (19:53)
[2018-07-16] MEDS: DEXTROSE 5% IN WATER 1,000 ML with SODIUM BICARB (1 MEQ/ML) 150 ML IV SCH (02:59)
[2018-07-16 06:06] LABS: Anisocytosis Slight; Basophils % (A) 0 %; Eosinophils % (A) 0 %; Lymphocytes # (A) 0.6 k/uL (1.0-4.8); Lymphocytes % (A) 8 %; MCH 27.1 pg (25.0-35.0); MCHC 31.9 g/dL (31.0-37.0); MCV 85.1 fL (80.0-100.0); Mean Platelet Volume 7.6; Monocytes # (A) 0.3 k/uL (0-1.0); Monocytes % (A) 5 %; Neutrophils # (A) 5.7 k/uL (1.3-7.7); Neutrophils % (A) 85 %; Platelet Count 156 k/uL (150-450); RBC 3.18 m/uL (3.80-5.40); RDW 16.2 % (11.5-15.5); WBC 6.7 k/uL (3.8-10.6)
[2018-07-16 06:17] LABS: HGB 8.6 gm/dL (11.4-16.0)
--- NOTE | 2018-07-16 06:39 | CONS ---
CONSULTATION PULMONARY CRITICAL CARE CONSULTATION: DATE OF CONSULTATION: 07/15/2018 This is a 33-year-old female who presents to the emergency department from one of the local nursing homes. She apparently was sent in because her potassium and creatinine were elevated and she was apparently very weak. The patient was evaluated in emergency room by Dr. Bradford. The patient was apparently found to have significant electrolyte disturbances. This included hyperkalemia and renal failure. The patient is resting down in the emergency room. She was a bit tearful when we first came to see her. She was wanting something for pain. The patient really other than pain had no other major complaints. She denied any shortness of breath, cough, wheezing, phlegm production, abdominal pain, nausea, vomiting, diarrhea, etc. The patient was apparently evaluated by Dr. Felder. The patient was given D50 and some insulin for her hyperkalemia along with a D5W IV with 3 amps of sodium bicarbonate at 125 mL an hour. She was also given some IV Rocephin. She received 1.5 L of saline in the emergency room and she is currently just on room air. The patient appears not to have any major distress other than complaining of back pain. HOME MEDICATIONS: Her home medications or medications in the long term include Tylenol, Plavix, vitamin D2, Prozac, Synthroid, milk of magnesia, melatonin, multivitamins, Senokot, Hines, Mag-Ox, and Klonopin. ALLERGIES: Her allergies include ASPIRIN, IBUPROFEN, ZOLOFT, AMBIEN, and GABAPENTIN. MEDICAL HISTORY: Her medical history includes CVA and apparently myocardial infarction. She also has a history of morbid obesity, pancreatitis, previous history of coma back in 2014. Her myocardial infarction was in 2015 as well. She also apparently has a previous history of extended-spectrum beta-lactamase producing organisms. This apparently was found in the urine back in 2018. SURGICAL HISTORY: Surgical history includes cholecystectomy. She also apparently suffers from anxiety, depression, and panic disorder. SOCIAL HISTORY: Social history is negative for tobacco. She apparently is a heavy drinker and does not use illicit drugs. FAMILY HISTORY: Family history is positive for lung cancer. REVIEW OF SYSTEMS: CONSTITUTIONAL: Negative. NEUROLOGIC: Negative. HEENT: Negative. CARDIOVASCULAR: Negative. PULMONARY: Negative GI: Negative. : Negative. RHEUMATOLOGIC: Back pain. IMMUNOLOGIC: Negative. ENDOCRINOLOGIC: Negative. DERMATOLOGIC: Negative. PHYSICAL EXAMINATION: VITAL SIGNS: Current vital signs are reviewed. Temperature 98.6, heart rate 100, respiratory rate 18, blood pressure 138/93. Mean 108 and room air saturation 97%. GENERAL: She appears in no acute distress. She was complaining of some back pain. HEENT: Examination is grossly unremarkable. There is no supplemental oxygen. NECK: Supple. Full range of motion. No adenopathy or thyromegaly. Neck veins are flat. CARDIOVASCULAR: Examination reveals mild tachycardia. Heart rate about 100. S1, S2 normal. There is no murmur. LUNGS: Clear. Breath sounds equal. ABDOMEN: Obese. Bowel sounds are heard. EXTREMITIES: Are intact. Minimal edema. SKIN: Without rash. NEUROLOGIC: Examination seems to be relatively normal. She does move all 4 extremities. She is alert and awake and able to answer questions. LAB DATA: Lab data is reviewed. White count 8.8, hemoglobin 11.3, hematocrit 35.3, and platelet count 233,000. PT/INR normal. PTT is 31.5. Sodium 135, potassium 7.8, chloride 101, carbon dioxide 14. Anion gap is 20. BUN and creatinine were and 198 and 17.72. Her glucose was 168. Lactic acid 0.5. Calcium 7.7. AST 8, ALT less than 6. Albumin 3.3. Urine is turbid with 3+ protein and 2+ glucose. There is moderate blood in her urine. Her leukocyte esterase was large positive. There was greater than 182 RBCs and greater than 182 WBCs. There was few bacteria and many WBC clumps. There was many budding yeast as well. Her repeat potassium was 6.8. An EKG was done. It did not show any acute abnormalities. X-RAY: Chest x-ray was done. It showed no acute abnormalities. MEDICATIONS: Medications are reviewed. Currently, she has received calcium gluconate, Rocephin, the dextrose IV with sodium bicarbonate, multiple IV pushes of dextrose and insulin, updrafts, Narcan, and Kayexalate. ASSESSMENT: 1. Acute renal failure with profound hyperkalemia. 2. Anion gap metabolic acidosis. 3. Previous history of cerebrovascular accident/transient ischemic attack. 4. History of myocardial infarction. 5. Morbid obesity. 6. Pancreatitis. 7. Previous history of coma. 8. Previous history of urinary tract infection with extended-spectrum beta-lactamase producing organisms. 9. Rule out acute cystitis. 10.History of cholecystitis. 11.Mild anemia. 12.Hypoalbuminemia. PLAN: The patient will be admitted to the ICU for monitoring. Hemodialysis catheter will be placed by Vascular Surgery. They may do emergent hemodialysis according to Dr. Felder. The patient's labs are reviewed. We will continue to monitor her renal function and her potassium level. It is coming down from 7.8 to 6.8. The renal failure may be acute. Additional recommendations and suggestions are forthcoming. She is being treated for urinary tract infection with Rocephin. Additional recommendations and suggestions are forthcoming. Prognosis is guarded. MMODL / IJN: [id number] /
[2018-07-16 06:48] LABS: Glucose,Whole Blood 173 mg/dL (75-99)
[2018-07-16 06:59] LABS: Calcium 6.9 mg/dL (8.4-10.2); Phosphorus 4.6 mg/dL (2.5-4.5); Potassium 4.4 mmol/L (3.5-5.1)
[2018-07-16] MEDS: HYDROcodone/APAP 7.5-325MG 1 EACH TAB PO PRN ×3 (08:28→18:08)
[2018-07-16] MEDS: LEVOTHYROXINE 25 MCG TAB PO SCH (08:31)
[2018-07-16] MEDS: FLUoxetine HCL 20 MG CAP PO SCH (08:31)
--- NOTE | 2018-07-16 09:18 | PN ---
PROGRESS NOTE DATE OF SERVICE: 07/16/2018 This is a 33-year-old female who I saw last night in the emergency department. She resides in one of the local nursing homes. She apparently was sent in because potassium and creatinine were elevated on lab draw. She also was complaining of weakness and pain. She was evaluated initially in the emergency room by Dr. Bradford and he called me because he noted that her potassium was quite high and also that her creatinine was very high. For that reason, she was admitted to the ICU for further monitoring. Dr. Eason was consulted last night. Hemodialysis catheter was placed and she had emergent hemodialysis last night. Currently, she is resting comfortably. She is on room air. Her IV is a 0.9 at KVO. She is also getting D5W with 3 amps of sodium bicarbonate at 125 mL an hour. Nephrology was obviously consulted last night. Dr. Felder gave her multiple rounds of dextrose and insulin for her hyperkalemia. This morning, she is not complaining of any pain. She was placed back on her Casa which she was taking at the alf. She has had a previous CVA. She has a very poor memory. She does not even remember who she sees there. PHYSICAL EXAMINATION: VITAL SIGNS: Current vital signs are reviewed. Temperature is 98.6, heart rate 85, respiratory rate 18, blood pressure 140/64, mean 89 and room air saturations are 96%. GENERAL: She appears in no acute distress. HEENT: Examination is grossly unremarkable. NECK: Supple. Full range of motion. No adenopathy or thyromegaly. Neck veins are flat. CARDIOVASCULAR: Examination reveals regular rhythm and rate. S1, S2 normal. No S3, S4, or murmur. LUNGS: Are clear. Breath sounds equal. ABDOMEN: Soft. Bowel sounds are heard. EXTREMITIES: Are intact. No cyanosis, clubbing, or edema. SKIN: Without rash. NEUROLOGIC: Examination is brief but nonfocal. She does move all 4 extremities well. LABS: Labs are reviewed. White count 6.7, hemoglobin 8.6, hematocrit 27.0, platelet count 156,000. Sodium 136, potassium 4.4 down from 6.8, chloride 99, CO2 is 25. Anion gap is 12. BUN and creatinine were 110 and 9.68. The rest of the labs look okay. X-RAY: No chest x-ray from today. MEDICATIONS: Medications are reviewed. Active medications include Rocephin for what appears to be a urinary tract infection, her dextrose IV with sodium bicarbonate, Casa, and Narcan. ASSESSMENT: 1. Acute renal failure with profound hyperkalemia. 2. Anion gap metabolic acidosis, improved. 3. Previous history of cerebrovascular accident/transient ischemic attack with poor memory. 4. History of myocardial infarction. 5. Morbid obesity. 6. History of pancreatitis. 7. Previous history of coma. 8. Previous history of urinary tract infection with extended spectrum beta lactamase producing organisms. 9. Probable acute urinary tract infection. 10.History of cholecystitis. 11.Mild anemia. 12.Hypoalbuminemia. PLAN: The patient seems to be much more stable. She is on Rocephin for possible urinary tract infection. Her anion gap is now normal. Her potassium is 4.4. She was dialyzed last night. She remains on dextrose with sodium bicarbonate. She is not requiring any supplemental oxygen. Additional recommendations and suggestions are forthcoming. Later today, she can be transferred out of the ICU. Additional recommendations are for forthcoming. MMODL / IJN: [id number] /
--- NOTE | 2018-07-16 10:00 | PCN ---
PROCEDURE NOTE PREOPERATIVE DIAGNOSIS: Acute chronic renal failure with high potassium and creatinine. PROCEDURE: Ultrasound-guided triple-lumen dialysis catheter placed in the right femoral approach. Patient was seen in the intensive care unit. Right groin was prepped and draped in a sterile manner. 1% lidocaine was infiltrated, ultrasound-guided micropuncture introduced in the right common femoral vein, micropuncture guidewire was passed and 4- Bengali dilator was advanced on top of the guidewire. Then we passed a regular guidewire and then dilator advanced on the top of the guidewire, then we placed a triple-lumen dialysis catheter on top of the guidewire. The guidewire was removed. There was no resistance noted. Flushed with heparin saline and hep-locked and secured with 3-0 nylon. Dressing applied. Patient tolerated the procedure well. MMODL / IJN: [id number] /
--- NOTE | 2018-07-16 10:15 | CONS ---
CONSULTATION The patient came to the emergency room with history of high potassium, potassium is 7.8, and is 198 and is 17.72. I was consulted for urgently placement of dialysis catheter. MEDICAL HISTORY: The patient's medical history is history of obesity, history of ND in the past. PHYSICAL EXAMINATION: On examination, patient was seen in the intensive care unit. Neck is supple. Chest is clear. Abdomen is protuberant. Vascular Examination: Femoral pulses are present. PLAN: Placement of the dialysis catheter. Risks and complications discussed. MMODL / IJN: [id number] /
[2018-07-16 12:11] LABS: Glucose,Whole Blood 130 mg/dL (75-99)
[2018-07-16 12:34] LABS: Hepatitis B Core IgM Non-Reactive (Non-Reactive); Hepatitis B Surface AB- Quant 3.5 mIU/mL
--- NOTE | 2018-07-16 12:53 | P.HPIM ---
History of Present Illness H&P Date: 07/16/18 This is a 33-year-old patient who presented to the hospital with abnormal lab values. Patient's creatinine elevated at 17.72 and bun 198. Potassium also elevated at 6.8. Patient is currently a resident at [facility] due to previous history of stroke. Patient also was admitted back in February for similar occurrence in which was found to have hydronephrosis. Patient underwent cystoscopy and left ureteral stent placement. Patient has been noncompliant with follow-up appointments to nephrology and urology services. Patient denies any specific complaints. Patient denies any recent illness. Patient denies nausea vomiting. Did discuss with [facility] staff patient has not been febrile. Per [facility] staff does not believe that patient had any signs of decreased urine output. Additional medical history includes CVA in which she was on life-support in 2014, myocardial infarction, anxiety, depression, panic disorder and previous EtOH. Emergent hemodialysis catheter was placed per vascular surgery. Patient received emergent hemodialysis. Creatinine improving to 9.68 and bun 110. Potassium also improved to 4.4. Patient admitted to the intensive care unit. At this time patient remains alert and oriented 3. Patient does have poor memory. Patient denies any abdominal pain. Vitals remained stable. Nephrology, critical care and urology consult placed. At this time patient denies any chest pain or shortness of breath. Patient denies nausea vomiting or diarrhea. Patient denies any urinary burning or frequency. Rosado catheter is in place. Review of Systems Reviewed in electronic record Past Medical History Past Medical History: CVA/TIA, Myocardial Infarction ([place]) Additional Past Medical History / Comment(s): morbid obesity, pancreatitis, history of coma - 10/24/14 - until end of december after suffering from a stroke. Last Myocardial Infarction Date:: 10/2014 History of Any Multi-Drug Resistant Organisms: ESBL Date of last positivie culture/infection: 02/16/17 MDRO Source:: urine Past Surgical History: Cholecystectomy Past Anesthesia/Blood Transfusion Reactions: No Reported Reaction Past Psychological History: Anxiety, Depression, Panic Disorder Smoking Status: Never smoker Past Alcohol Use History: Heavy Additional Past Alcohol Use History / Comment(s): patient smoked in high school Past Drug Use History: None Reported - Past Family History Father History Unknown: Yes Family Medical History: Cancer Additional Family Medical History / Comment(s): lung Medications and Allergies Home Medications Medication Instructions Recorded Confirmed Type Acetaminophen Tab [Tylenol] 650 mg PO Q6H PRN 02/15/18 07/15/18 History Clopidogrel [Plavix] 75 mg PO DAILY 02/15/18 07/15/18 History Ergocalciferol (Vitamin D2) 50,000 unit PO Q30D 02/15/18 07/15/18 History [Drisdol] FLUoxetine HCL [PROzac] 20 mg PO DAILY 02/15/18 07/15/18 History Levothyroxine Sodium [Synthroid] 25 mcg PO DAILY 02/15/18 07/15/18 History Magnesium Hydroxide [Milk of 2,400 mg PO Q72H PRN 02/15/18 07/15/18 History Magnesia] Melatonin 5 mg PO HS 02/15/18 07/15/18 History Multivitamins, Thera [Multivitamin 1 tab PO DAILY 02/15/18 07/15/18 History (formulary)] Sennosides [Senokot] 8.6 mg PO BID 02/15/18 07/15/18 History HYDROcodone/APAP 7.5-325MG [Gregory 1 tab PO Q8H PRN 07/15/18 07/15/18 History 7.5-325] Magnesium Oxide [Mag-Ox] 400 mg PO BID@0800,1600 07/15/18 07/15/18 History clonazePAM [KlonoPIN] 0.5 mg PO HS 07/15/18 07/15/18 History Allergies Allergy/AdvReac Type Severity Reaction Status Date / Time aspirin Allergy Unknown Verified 07/15/18 16:46 ibuprofen [From Motrin] Allergy Unknown Verified 07/15/18 16:46 sertraline HCl [From Zoloft] Allergy Unknown Verified 07/15/18 16:46 zolpidem tartrate Allergy Unknown Verified 07/15/18 16:46 [From Ambien] gabapentin [From Neurontin] AdvReac Severe Unknown Verified 07/15/18 16:46 Physical Exam Vitals: Vital Signs Temp Pulse Resp BP Pulse Ox 07/16/18 07:01 85 18 140/64 96 07/16/18 06:00 98 15 138/92 97 07/16/18 05:00 115 H 15 117/76 99 07/16/18 04:00 98.6 F 95 17 127/67 94 L 07/16/18 03:00 93 14 88/43 07/16/18 02:30 108 H 20 85/49 07/16/18 02:00 103 H 14 93/65 93 L 07/16/18 01:30 103 H 15 118/74 94 L 07/16/18 01:00 101 H 10 L 97/46 93 L 07/16/18 00:30 106 H 16 117/84 95 07/16/18 00:00 98.4 F 110 H 22 138/90 94 L 07/15/18 23:44 110 H 15 144/84 95 07/15/18 23:30 105 H 14 140/86 07/15/18 23:00 99 15 126/72 07/15/18 22:38 130/101 07/15/18 21:53 64 18 135/86 98 07/15/18 19:27 100 18 138/93 97 07/15/18 19:00 103 H 18 138/93 97 07/15/18 17:41 103 H 18 152/103 97 07/15/18 16:37 98.6 F 97 18 162/111 96 Intake and Output 07/15/18 07/16/18 07/16/18 22:59 06:59 14:59 Intake Total 300 1250 145 Output Total 100 250 Balance 200 1000 145 Intake: IV 300 1250 145 0.9 75 375 20 Calcium Gluconate 1 gm In 100 Sodium Chloride 0.9% 100 ml @ 100 mls/hr IVPB ONCE ONE Rx#:[id number] Dextrose 5% in Water 1, 125 875 125 000 ml @ 125 mls/hr IV . Q9H12M WILDER with Sodium Bicarb (1 Meq/ml) 150 ml Rx#:[id number] Output: Urine 100 250 Uretheral (Rosado) 100 200 Other: Voiding Method Indwelling Catheter Weight 113.398 kg 110.4 kg Head normocephalic Neck supple Lungs clear to auscultation bilaterally no wheezing or crackles Heart regular rate and rhythm S1-S2, no rub or gallop Abdomen is soft nontender nondistended positive bowel sounds no hepatosplenomegaly Extremities no edema Neuro alert and orientated to 3. Memory impairment Results CBC & Chem 7: 07/16/18 05:50 07/16/18 05:50 Labs: Abnormal Lab Results - Last 24 Hours (Table) 07/15/18 07/15/18 07/15/18 Range/Units 15:28 15:28 15:28 RBC (3.80-5.40) m/uL Hgb 11.3 L (11.4-16.0) gm/dL Hct (34.0-46.0) % RDW 15.8 H (11.5-15.5) % Lymphocytes # 0.9 L (1.0-4.8) k/uL APTT (22.0-30.0) sec Sodium 135 L (137-145) mmol/L Potassium 7.8 H* (3.5-5.1) mmol/L Carbon Dioxide 14 L (22-30) mmol/L BUN 198 H* (7-17) mg/dL Creatinine 17.72 H* (0.52-1.04) mg/dL Glucose 121 H (74-99) mg/dL POC Glucose (mg/dL) (75-99) mg/dL Plasma Lactic Acid Montrell 0.5 L (0.7-2.0) mmol/L Calcium 7.7 L (8.4-10.2) mg/dL Phosphorus (2.5-4.5) mg/dL Magnesium (1.6-2.3) mg/dL AST 8 L (14-36) U/L ALT <6 L (9-52) U/L Albumin 3.3 L (3.5-5.0) g/dL Urine Appearance (Clear) Urine Protein (Negative) Urine Glucose (UA) (Negative) Urine Ketones (Negative) Urine Blood (Negative) Ur Leukocyte Esterase (Negative) Urine RBC (0-5) /hpf Urine WBC (0-5) /hpf Urine WBC Clumps (None) /hpf Urine Bacteria (None) /hpf Urine Yeast (Budding) (None) /hpf 07/15/18 07/15/18 07/15/18 Range/Units 15:28 18:04 19:08 RBC (3.80-5.40) m/uL Hgb (11.4-16.0) gm/dL Hct (34.0-46.0) % RDW (11.5-15.5) % Lymphocytes # (1.0-4.8) k/uL APTT 31.5 H (22.0-30.0) sec Sodium (137-145) mmol/L Potassium (3.5-5.1) mmol/L Carbon Dioxide (22-30) mmol/L BUN (7-17) mg/dL Creatinine (0.52-1.04) mg/dL Glucose (74-99) mg/dL POC Glucose (mg/dL) 124 H (75-99) mg/dL Plasma Lactic Acid Montrell (0.7-2.0) mmol/L Calcium (8.4-10.2) mg/dL Phosphorus (2.5-4.5) mg/dL Magnesium (1.6-2.3) mg/dL AST (14-36) U/L ALT (9-52) U/L Albumin (3.5-5.0) g/dL Urine Appearance Turbid H (Clear) Urine Protein 3+ H (Negative) Urine Glucose (UA) 2+ H (Negative) Urine Ketones Trace H (Negative) Urine Blood Moderate H (Negative) Ur Leukocyte Esterase Large H (Negative) Urine RBC >182 H (0-5) /hpf Urine WBC >182 H (0-5) /hpf Urine WBC Clumps Many H (None) /hpf Urine Bacteria Few H (None) /hpf Urine Yeast (Budding) Many H (None) /hpf 07/15/18 07/15/18 07/16/18 Range/Units 19:25 19:40 05:50 RBC 3.18 L (3.80-5.40) m/uL Hgb 8.6 L D (11.4-16.0) gm/dL Hct 27.0 L (34.0-46.0) % RDW 16.2 H (11.5-15.5) % Lymphocytes # 0.6 L (1.0-4.8) k/uL APTT (22.0-30.0) sec Sodium (137-145) mmol/L Potassium 6.8 H* (3.5-5.1) mmol/L Carbon Dioxide (22-30) mmol/L BUN (7-17) mg/dL Creatinine (0.52-1.04) mg/dL Glucose (74-99) mg/dL POC Glucose (mg/dL) 168 H (75-99) mg/dL Plasma Lactic Acid Montrell (0.7-2.0) mmol/L Calcium (8.4-10.2) mg/dL Phosphorus (2.5-4.5) mg/dL Magnesium (1.6-2.3) mg/dL AST (14-36) U/L ALT (9-52) U/L Albumin (3.5-5.0) g/dL Urine Appearance (Clear) Urine Protein (Negative) Urine Glucose (UA) (Negative) Urine Ketones (Negative) Urine Blood (Negative) Ur Leukocyte Esterase (Negative) Urine RBC (0-5) /hpf Urine WBC (0-5) /hpf Urine WBC Clumps (None) /hpf Urine Bacteria (None) /hpf Urine Yeast (Budding) (None) /hpf 07/16/18 07/16/18 07/16/18 Range/Units 05:50 06:47 12:09 RBC (3.80-5.40) m/uL Hgb (11.4-16.0) gm/dL Hct (34.0-46.0) % RDW (11.5-15.5) % Lymphocytes # (1.0-4.8) k/uL APTT (22.0-30.0) sec Sodium 136 L (137-145) mmol/L Potassium (3.5-5.1) mmol/L Carbon Dioxide (22-30) mmol/L BUN 110 H* (7-17) mg/dL Creatinine 9.68 H* (0.52-1.04) mg/dL Glucose 177 H (74-99) mg/dL POC Glucose (mg/dL) 173 H 130 H (75-99) mg/dL Plasma Lactic Acid Montrell (0.7-2.0) mmol/L Calcium 6.9 L (8.4-10.2) mg/dL Phosphorus 4.6 H (2.5-4.5) mg/dL Magnesium 4.0 H (1.6-2.3) mg/dL AST (14-36) U/L ALT (9-52) U/L Albumin (3.5-5.0) g/dL Urine Appearance (Clear) Urine Protein (Negative) Urine Glucose (UA) (Negative) Urine Ketones (Negative) Urine Blood (Negative) Ur Leukocyte Esterase (Negative) Urine RBC (0-5) /hpf Urine WBC (0-5) /hpf Urine WBC Clumps (None) /hpf Urine Bacteria (None) /hpf Urine Yeast (Budding) (None) /hpf Assessment and Plan Assessment: 1. Acute kidney injury with hyperkalemia. Emergent hemodialysis performed. Nephrology services have been consulted. Creatinine improving to 9.68 and bun 110. Potassium 4.4. 2. Previous history of hydronephrosis with cystoscopy and stent placement. Patient has been noncompliant with follow-up appointments. Urology services have been consulted 3. Anemia likely secondary to kidney disease. We'll continue to monitor nephrology services are following 4. Urinary tract infection. Urine culture ordered. Patient on Rocephin 5. Metabolic acidosis. Patient remains on dextrose with sodium bicarb 6. History of CVA with poor memory 7. History of myocardial infarction 8. History of pancreatitis 9. History of chronic pain. Patient maintained on Gregory 10. History of anxiety depression and panic disorder DVT prophylaxis SCDs. GI prophylaxis Protonix. Patient currently admitted to the intensive care unit Emergent dialysis performed labs are improving Critical care, nephrology neurology service is consulted Time with Patient: Greater than 30 (Greater than 60% of the total time spent in counseling and coordination of care. I performed an examination of the patient and discussed their management with the Nurse Practitioner. I have reviewed the Nurse Practitioner's notes and agree with the documented findings and plan of care)
--- NOTE | 2018-07-16 13:03 | P.GSCN ---
History of Present Illness Consult date: 07/16/18 Reason for Consult: Acute renal failure History of present illness: The patient is a 33-year-old female who was noted to have a potassium of over 7 and a creatinine over 17 on a routine blood study performed yesterday. She was taken to the emergency room where she was noted to have a BUN of 198, creatinine of 17.72, bicarb 14 and potassium of 6.8. Emergency hemodialysis was performed last night. BUN/creatinine this morning were 110/9.18. Bicarb is 25 and potassium is 4.4. The patient is making urine which is grossly purulent. She h as been afebrile. The patient has an extremely poor memory and is unable to divide any pertinent history. She denied any fever or chills prior to being admitted and has remained afebrile since admission. She does complain of some low back pain and minimal left flank pain. She has had diarrhea and apparently this is somewhat chronic. The patient has a history of acute renal failure which occurred in 02/2018. She was discovered to have left hydronephrosis secondary to an obstructive calculus present within the left kidney. The right kidney was atrophic. She was seen by Dr. Charles at that time and a left double-J catheter was placed. She has not been seen back in follow-up since then but does have an appointment to see him next week. Creatinine was 1.76 on 06/17/2018. Urine culture in 03/01 grew Providencia stuartii, E. coli and Proteus mirabilis. No other cultures have been performed since then. Review of Systems - Constitutional Denies chills, Denies fever - Gastrointestinal Reports diarrhea, Denies abdominal pain - Genitourinary Genitourinary: Reports dysuria, Denies hematuria Past Medical History Past Medical History: CVA/TIA, Myocardial Infarction ([place]) Additional Past Medical History / Comment(s): morbid obesity, pancreatitis, history of coma - 10/24/14 - until end of december after suffering from a stroke. Left renal calculus Last Myocardial Infarction Date:: 10/2014 History of Any Multi-Drug Resistant Organisms: ESBL Year Discovered:: 02/16/17 MDRO Source:: urine Past Surgical History: Cholecystectomy Additional Past Surgical History / Comment(s): Cystoscopy with placement of left double-J catheter 02/16/2018 Past Anesthesia/Blood Transfusion Reactions: No Reported Reaction Past Psychological History: Anxiety, Depression, Panic Disorder Smoking Status: Never smoker Past Alcohol Use History: Heavy Additional Past Alcohol Use History / Comment(s): patient smoked in high school Past Drug Use History: None Reported - Past Family History Father History Unknown: Yes Family Medical History: Cancer Additional Family Medical History / Comment(s): lung Medications and Allergies Home Medications Medication Instructions Recorded Confirmed Type Acetaminophen Tab [Tylenol] 650 mg PO Q6H PRN 02/15/18 07/15/18 History Clopidogrel [Plavix] 75 mg PO DAILY 02/15/18 07/15/18 History Ergocalciferol (Vitamin D2) 50,000 unit PO Q30D 02/15/18 07/15/18 History [Drisdol] FLUoxetine HCL [PROzac] 20 mg PO DAILY 02/15/18 07/15/18 History Levothyroxine Sodium [Synthroid] 25 mcg PO DAILY 02/15/18 07/15/18 History Magnesium Hydroxide [Milk of 2,400 mg PO Q72H PRN 02/15/18 07/15/18 History Magnesia] Melatonin 5 mg PO HS 02/15/18 07/15/18 History Multivitamins, Thera [Multivitamin 1 tab PO DAILY 02/15/18 07/15/18 History (formulary)] Sennosides [Senokot] 8.6 mg PO BID 02/15/18 07/15/18 History HYDROcodone/APAP 7.5-325MG [[place] 1 tab PO Q8H PRN 07/15/18 07/15/18 History 7.5-325] Magnesium Oxide [Mag-Ox] 400 mg PO BID@0800,1600 07/15/18 07/15/18 History clonazePAM [KlonoPIN] 0.5 mg PO HS 07/15/18 07/15/18 History Allergies Allergy/AdvReac Type Severity Reaction Status Date / Time aspirin Allergy Unknown Verified 07/15/18 16:46 ibuprofen [From Motrin] Allergy Unknown Verified 07/15/18 16:46 sertraline HCl [From Zoloft] Allergy Unknown Verified 07/15/18 16:46 zolpidem tartrate Allergy Unknown Verified 07/15/18 16:46 [From Ambien] gabapentin [From Neurontin] AdvReac Severe Unknown Verified 07/15/18 16:46 Surgical - Exam Vital Signs Temp Pulse Resp BP Pulse Ox 98.6 F 97 18 162/111 96 07/15/18 16:37 07/15/18 16:37 07/15/18 16:37 07/15/18 16:37 07/15/18 16:37 - General well developed, no distress, obese - ENT no hearing loss - Neck no masses, no lymphadectomy - Respiratory normal respiratory effort - Abdomen Abdomen: soft, tender (Minimal tenderness left flank), no organomegaly - Genitourinary other (Rosado catheter is draining grossly purulent urine) Results - Labs 07/16/18 05:50 07/16/18 05:50 Abnormal Lab Results - Last 24 Hours (Table) 07/15/18 07/15/18 07/15/18 Range/Units 15:28 15:28 15:28 RBC (3.80-5.40) m/uL Hgb 11.3 L (11.4-16.0) gm/dL Hct (34.0-46.0) % RDW 15.8 H (11.5-15.5) % Lymphocytes # 0.9 L (1.0-4.8) k/uL APTT (22.0-30.0) sec Sodium 135 L (137-145) mmol/L Potassium 7.8 H* (3.5-5.1) mmol/L Carbon Dioxide 14 L (22-30) mmol/L BUN 198 H* (7-17) mg/dL Creatinine 17.72 H* (0.52-1.04) mg/dL Glucose 121 H (74-99) mg/dL POC Glucose (mg/dL) (75-99) mg/dL Plasma Lactic Acid [place] 0.5 L (0.7-2.0) mmol/L Calcium 7.7 L (8.4-10.2) mg/dL Phosphorus (2.5-4.5) mg/dL Magnesium (1.6-2.3) mg/dL AST 8 L (14-36) U/L ALT <6 L (9-52) U/L Albumin 3.3 L (3.5-5.0) g/dL Urine Appearance (Clear) Urine Protein (Negative) Urine Glucose (UA) (Negative) Urine Ketones (Negative) Urine Blood (Negative) Ur Leukocyte Esterase (Negative) Urine RBC (0-5) /hpf Urine WBC (0-5) /hpf Urine WBC Clumps (None) /hpf Urine Bacteria (None) /hpf Urine Yeast (Budding) (None) /hpf 07/15/18 07/15/18 07/15/18 Range/Units 15:28 18:04 19:08 RBC (3.80-5.40) m/uL Hgb (11.4-16.0) gm/dL Hct (34.0-46.0) % RDW (11.5-15.5) % Lymphocytes # (1.0-4.8) k/uL APTT 31.5 H (22.0-30.0) sec Sodium (137-145) mmol/L Potassium (3.5-5.1) mmol/L Carbon Dioxide (22-30) mmol/L BUN (7-17) mg/dL Creatinine (0.52-1.04) mg/dL Glucose (74-99) mg/dL POC Glucose (mg/dL) 124 H (75-99) mg/dL Plasma Lactic Acid [place] (0.7-2.0) mmol/L Calcium (8.4-10.2) mg/dL Phosphorus (2.5-4.5) mg/dL Magnesium (1.6-2.3) mg/dL AST (14-36) U/L ALT (9-52) U/L Albumin (3.5-5.0) g/dL Urine Appearance Turbid H (Clear) Urine Protein 3+ H (Negative) Urine Glucose (UA) 2+ H (Negative) Urine Ketones Trace H (Negative) Urine Blood Moderate H (Negative) Ur Leukocyte Esterase Large H (Negative) Urine RBC >182 H (0-5) /hpf Urine WBC >182 H (0-5) /hpf Urine WBC Clumps Many H (None) /hpf Urine Bacteria Few H (None) /hpf Urine Yeast (Budding) Many H (None) /hpf 07/15/18 07/15/18 07/16/18 Range/Units 19:25 19:40 05:50 RBC 3.18 L (3.80-5.40) m/uL Hgb 8.6 L D (11.4-16.0) gm/dL Hct 27.0 L (34.0-46.0) % RDW 16.2 H (11.5-15.5) % Lymphocytes # 0.6 L (1.0-4.8) k/uL APTT (22.0-30.0) sec Sodium (137-145) mmol/L Potassium 6.8 H* (3.5-5.1) mmol/L Carbon Dioxide (22-30) mmol/L BUN (7-17) mg/dL Creatinine (0.52-1.04) mg/dL Glucose (74-99) mg/dL POC Glucose (mg/dL) 168 H (75-99) mg/dL Plasma Lactic Acid [place] (0.7-2.0) mmol/L Calcium (8.4-10.2) mg/dL Phosphorus (2.5-4.5) mg/dL Magnesium (1.6-2.3) mg/dL AST (14-36) U/L ALT (9-52) U/L Albumin (3.5-5.0) g/dL Urine Appearance (Clear) Urine Protein (Negative) Urine Glucose (UA) (Negative) Urine Ketones (Negative) Urine Blood (Negative) Ur Leukocyte Esterase (Negative) Urine RBC (0-5) /hpf Urine WBC (0-5) /hpf Urine WBC Clumps (None) /hpf Urine Bacteria (None) /hpf Urine Yeast (Budding) (None) /hpf 07/16/18 07/16/18 07/16/18 Range/Units 05:50 06:47 12:09 RBC (3.80-5.40) m/uL Hgb (11.4-16.0) gm/dL Hct (34.0-46.0) % RDW (11.5-15.5) % Lymphocytes # (1.0-4.8) k/uL APTT (22.0-30.0) sec Sodium 136 L (137-145) mmol/L Potassium (3.5-5.1) mmol/L Carbon Dioxide (22-30) mmol/L BUN 110 H* (7-17) mg/dL Creatinine 9.68 H* (0.52-1.04) mg/dL Glucose 177 H (74-99) mg/dL POC Glucose (mg/dL) 173 H 130 H (75-99) mg/dL Plasma Lactic Acid [place] (0.7-2.0) mmol/L Calcium 6.9 L (8.4-10.2) mg/dL Phosphorus 4.6 H (2.5-4.5) mg/dL Magnesium 4.0 H (1.6-2.3) mg/dL AST (14-36) U/L ALT (9-52) U/L Albumin (3.5-5.0) g/dL Urine Appearance (Clear) Urine Protein (Negative) Urine Glucose (UA) (Negative) Urine Ketones (Negative) Urine Blood (Negative) Ur Leukocyte Esterase (Negative) Urine RBC (0-5) /hpf Urine WBC (0-5) /hpf Urine WBC Clumps (None) /hpf Urine Bacteria (None) /hpf Urine Yeast (Budding) (None) /hpf Diabetes panel 07/15/18 07/15/18 07/16/18 Range/Units 15:28 19:40 05:50 Sodium 135 L 136 L (137-145) mmol/L Potassium 7.8 H* 6.8 H* 4.4 (3.5-5.1) mmol/L Chloride 101 99 (98-107) mmol/L Carbon Dioxide 14 L 25 (22-30) mmol/L BUN 198 H* 110 H* (7-17) mg/dL Creatinine 17.72 H* 9.68 H* (0.52-1.04) mg/dL Glucose 121 H 177 H (74-99) mg/dL Calcium 7.7 L 6.9 L (8.4-10.2) mg/dL AST 8 L (14-36) U/L ALT <6 L (9-52) U/L Alkaline Phosphatase 103 (38-126) U/L Total Protein 7.1 (6.3-8.2) g/dL Albumin 3.3 L (3.5-5.0) g/dL Calcium panel 07/15/18 07/16/18 Range/Units 15:28 05:50 Calcium 7.7 L 6.9 L (8.4-10.2) mg/dL Phosphorus 4.6 H (2.5-4.5) mg/dL Albumin 3.3 L (3.5-5.0) g/dL Pituitary panel 07/15/18 07/15/1807/16/19 Range/Units 15:28 19:40 05:50 Sodium 135 L 136 L (137-145) mmol/L Potassium 7.8 H* 6.8 H* 4.4 (3.5-5.1) mmol/L Chloride 101 99 (98-107) mmol/L Carbon Dioxide 14 L 25 (22-30) mmol/L BUN 198 H* 110 H* (7-17) mg/dL Creatinine 17.72 H* 9.68 H* (0.52-1.04) mg/dL Glucose 121 H 177 H (74-99) mg/dL Calcium 7.7 L 6.9 L (8.4-10.2) mg/dL Adrenal panel 07/15/18 07/15/18 07/16/18 Range/Units 15:28 19:40 05:50 Sodium 135 L 136 L (137-145) mmol/L Potassium 7.8 H* 6.8 H* 4.4 (3.5-5.1) mmol/L Chloride 101 99 (98-107) mmol/L Carbon Dioxide 14 L 25 (22-30) mmol/L BUN 198 H* 110 H* (7-17) mg/dL Creatinine 17.72 H* 9.68 H* (0.52-1.04) mg/dL Glucose 121 H 177 H (74-99) mg/dL Calcium 7.7 L 6.9 L (8.4-10.2) mg/dL Total Bilirubin 0.4 (0.2-1.3) mg/dL AST 8 L (14-36) U/L ALT <6 L (9-52) U/L Alkaline Phosphatase 103 (38-126) U/L Total Protein 7.1 (6.3-8.2) g/dL Albumin 3.3 L (3.5-5.0) g/dL Assessment and Plan (1) Acute renal failure Narrative/Plan: The source of the patient's acute renal failure is not clear. It is possible that a portion of this is prerenal and related to her current diarrhea. The patient has a left double-J catheter which has been present since February and it is also possible that the double-J catheter has become occluded. The patient is making urine at this time. She is no longer hyperkalemic and her metabolic acidosis has been corrected. Computed tomography scan of the abdomen and pelvis without IV contrast will be obtained. If there is left hydronephrosis present then exchange of the left double-J catheter will be set up for tomorrow to be performed by . She is currently on ceftriaxone which will be continued pending results of a urine culture. Current Visit: Yes Status: Acute Code(s): N17.9 - ACUTE KIDNEY FAILURE, UNSP ECIFIED SNOMED Code(s): 94202698
--- NOTE | 2018-07-16 14:53 | CT ---
EXAMINATION TYPE: CT abdomen pelvis wo con DATE OF EXAM: 07/16/2018 HISTORY: acute renal failure. Left renal calculus. CT DLP: 1363.4 mGycm. Automated Exposure Control for Dose Reduction was Utilized. TECHNIQUE: CT scan of the abdomen and pelvis is performed without oral or IV contrast. COMPARISON: CT abdomen and pelvis February 16, 2018 FINDINGS: Within the limitations of a non-contrast study, the following observations are made. Exam noted suboptimal due to patient's large body habitus. LUNG BASES: There is patchy bibasilar linear atelectasis. LIVER/GB: Cholecystectomy clips are redemonstrated. PANCREAS: No significant abnormality is seen. SPLEEN: No significant abnormality is seen. ADRENALS: No significant abnormality is seen. KIDNEYS: Left kidney shows new double J ureter stent. There are innumerable hyperdense calculi centra lly in the left kidney collecting system with progression from prior CT felt present. Right kidney is asymmetrically atrophic similar to prior with innumerable central calculi. There is poor cortical me dullary differentiation the left kidney fairly similar to prior. Difficult to assess for hydronephros is without contrast. Rosado catheter is seen within decompressed bladder which is suboptimally evaluat ed. No significant left-sided hydroureter is seen. No calculi along course of left ureter stent ident ified. No right-sided hydronephrosis or obstructing ureter calculi. BOWEL: No suspicious bowel dilatation. GENITAL ORGANS: Anteverted uterus extends to the right of midline. LYMPH NODES: No greater than 1cm abdominal or pelvic lymph nodes are appreciated. OSSEOUS STRUCTURES: Facet arthropathy lower lumbar spine. OTHER: No significant additional abnormality is seen. IMPRESSION: New left double-J ureter stent presumed preventing left-sided hydronephrosis. No ureter c alculi along course of stent clearly seen. Innumerable bilateral renal calculi with right renal atrop hy redemonstrated.
--- NOTE | 2018-07-16 19:09 | CONS ---
CONSULTATION REASON FOR CONSULTATION: Renal failure. HISTORY OF PRESENT ILLNESS: Patient is a 33-year-old female who has an atrophic right kidney, and she has had a previous history of acute kidney injury from obstructive uropathy with serum creatinine as high as 15 mg/dL in February of 2018. At that time, a double-J catheter was placed by Urology and renal function had improved, with serum creatinine going down to 1.4 to 1.7 mg/dL in April and June of 2018. At this time patient was readmitted with a serum creatinine of 17.72. She had a potassium of 7.8 on admission. Patient received dialysis yesterday. Her potassium has improved to 4.4. Creatinine is down 9.6. Patient states that she did not use any new medications prior to this admission. She feels she may have been voiding but is not sure. Blood pressure has not been significantly low. Urology consult is in place. Urine output was about 100 mL for the last 3 hours. PAST MEDICAL HISTORY: 1. History of nephrolithiasis and obstructive uropathy with a solitary functioning kidney with right renal atrophy. 2. Previous history of UTI. 3. History of CVA/TIA. 4. History of ME. 5. Anxiety. 6. Depression. PAST SURGICAL HISTORY: 1. Cholecystectomy. 2. Cystoscopy. 3. Double-J catheter placement. SOCIAL HISTORY: Negative for smoking. Patient does have a history of significant alcohol use. No other drug abuse. MEDICATIONS: Medications prior to admission include: 1. Tylenol. 2. Plavix. 3. Vitamin D2. 4. Prozac. 5. Synthroid. 6. Milk of Magnesia. 7. [place]. 8. Mag-Ox. 9. Klonopin. 10.Senokot. ALLERGIES: ALLERGIES include: 1. IBUPROFEN. 2. ASPIRIN. 3. ZOLOFT. 4. AMBIEN. 5. GABAPENTIN. PHYSICAL EXAMINATION: Patient is currently comfortable, awake. She is not in any acute distress. Blood pressure was this morning 127/52, heart rate 89 per minute. She is afebrile. EXAMINATION OF THE HEART: S1 and S2. EXAMINATION OF LUNGS: Bilateral breath sounds are heard. ABDOMEN: Soft, obese, non-tender. Examination of lower extremities shows no significant edema. EVENT HOST exam shows patient is able to move all 4 extremities. LABS: Sodium 136, potassium 4.4 this morning, chloride 99, BUN 110, serum creatinine 9.68, phosphorus 4.6, magnesium 4.0, hemoglobin 8.6 g/dL. ASSESSMENT: 1. Acute kidney injury; appears to be obstructive uropathy, status post one treatment of hemodialysis yesterday. Potassium is improved. Patient also has had an increase in urine output. I will hold off on dialysis today. We will consult Urology and obtain imaging of the abdomen. Patient may need urological surgery or exchange of the catheter. If her potassium is elevated again and if the renal function does not improve, patient will need urological intervention. 2. Hyperkalemia associated with severe acute kidney injury and possibly obstructive uropathy, currently improved post dialysis. 3. History of urinary tract infection. 4. Nephrolithiasis. 5. Hypothyroidism. 6. Morbid obesity. 7. Anemia. No active bleeding noted. Check iron studies. PLAN: Continue IV fluids. Hold hemodialysis today. Repeat labs in a.m. If there is no improvement in renal function or if the urine output remains low, patient will need to proceed with urological intervention. Thank you for this consultation. Will continue to follow the patient with you during her hospitalization. MMODL / IJN: [id number] /
[2018-07-16] MEDS: SODIUM CHLORIDE 0.9% 1,000 ML IV SCH (20:05)
[2018-07-16 22:53] LABS: Iron Saturation 26.92 (12.00-45.00)
[2018-07-16] MEDS: ACETAMINOPHEN TAB 325 MG TAB PO PRN (22:54)
[2018-07-17] MEDS: SENNOSIDES 8.6 MG TAB PO SCH ×3 (00:10→21:26)
[2018-07-17] MEDS: MELATONIN 5 MG TABLET PO SCH ×3 (00:10→21:26)
[2018-07-17] MEDS: clonazePAM 0.5 MG TAB PO SCH ×2 (00:46→21:26)
[2018-07-17] MEDS: HYDROcodone/APAP 7.5-325MG 1 EACH TAB PO PRN ×3 (01:45→21:26)
[2018-07-17] MEDS: ACETAMINOPHEN TAB 325 MG TAB PO PRN (05:21)
[2018-07-17] MEDS: LEVOTHYROXINE 25 MCG TAB PO SCH (05:21)
[2018-07-17] MEDS: SODIUM CHLORIDE 0.9% 1,000 ML IV SCH ×3 (05:22→17:45)
[2018-07-17 05:59] LABS: Anisocytosis Slight; Basophils % (A) 0 %; Eosinophils # (A) 0.1 k/uL (0-0.7); Eosinophils % (A) 1 %; HCT 27.8 % (34.0-46.0); Hypochromasia Slight; Lymphocytes # (A) 0.9 k/uL (1.0-4.8); Lymphocytes % (A) 14 %; MCH 27.4 pg (25.0-35.0); MCHC 32.3 g/dL (31.0-37.0); Mean Platelet Volume 7.4; Monocytes # (A) 0.4 k/uL (0-1.0); Monocytes % (A) 6 %; Neutrophils # (A) 4.9 k/uL (1.3-7.7); Neutrophils % (A) 75 %; Platelet Count 171 k/uL (150-450); RBC 3.26 m/uL (3.80-5.40); RDW 16.2 % (11.5-15.5); WBC 6.5 k/uL (3.8-10.6)
[2018-07-17 06:21] LABS: Potassium 4.8 mmol/L (3.5-5.1)
[2018-07-17 06:22] LABS: Calcium 6.7 mg/dL (8.4-10.2); Magnesium 3.7 mg/dL (1.6-2.3)
[2018-07-17 07:05] LABS: Glucose,Whole Blood 105 mg/dL (75-99)
--- NOTE | 2018-07-17 08:35 | XR ---
EXAMINATION TYPE: XR chest 1V portable DATE OF EXAM: 07/17/2018 COMPARISON: 07/15/2018 HISTORY: Pain TECHNIQUE: Single frontal view of the chest is obtained. FINDINGS: Limited inspiration demonstrates no focal air space opacity, pleural effusion, or pneumoth orax seen. The cardiac silhouette size is within normal limits. The osseous structures are intact. IMPRESSION: No acute process.
[2018-07-17] MEDS ORDERED: LACTATED RINGERS 1,000 ML IV ONE (09:38)
--- NOTE | 2018-07-17 10:20 | PN ---
PROGRESS NOTE DATE OF SERVICE: 07/17/2018 This is a 33-year-old female seen in the emergency room 2 nights ago. She comes in from one of the nursing homes locally. She was sent in because of abnormal labs. She had a very high potassium and creatinine. She was complaining of weakness and pain. She was seen by Dr. Bradford. She did have a hemodialysis catheter placed. She underwent one round of hemodialysis. She is bed-bound. She is not receiving any supplemental oxygen. Her IV is saline at 125. I have asked the nurses to turn it down to 75 mL an hour. She has been seen by Dr. Eason and Dr. Felder in Nephrology as well as more recently Urology. Currently, the patient seemed relatively stable. Respiratory status is stable. Hemodynamically, she has been stable. The patient was seen by Urology. The patient has a left double-J catheter, which has been present since February and it is possible that the double-J catheter is occluded. The patient apparently will be seen by Dr. Charles today. I believe he inserted the catheter. At this point, no procedures are planned as the patient does not appear to have any hydronephrosis. Microbiologic studies are thus far pending or negative. PHYSICAL EXAMINATION: VITAL SIGNS: Current vital signs are reviewed. Temperature 97.7, heart rate 97, respiratory rate 17, blood pressure 108/60, mean 76, room air saturation 98%. GENERAL: Appears in no acute distress. HEENT: Examination is grossly unremarkable. Mucous membranes are moist. No oral lesions. NECK: Supple. Full range of motion. No adenopathy or thyromegaly. Neck veins are flat. CARDIOVASCULAR: Examination reveals regular rhythm and rate. S1, S2 normal. No S3, S4, or murmur. LUNGS: Reveal mostly clear breath sounds. She does not really take deep breaths. No wheezes, rhonchi, or crackles appreciated. ABDOMEN: Soft. Bowel sounds are intact. Abdomen is obese. EXTREMITIES: Are intact. She does have footdrop bilaterally. Lower extremity musculature is somewhat atrophied. No cyanosis, clubbing, or significant edema. SKIN: Without rash. NEUROLOGIC: Examination is nonfocal, although she does have significant weakness of her extremities, lower greater than upper. LABORATORY DATA: Laboratory data is reviewed. White count 6.5, hemoglobin 9, hematocrit 27.8, platelet count 171,000. Sodium, potassium, chloride, CO2 all normal. Anion gap is 13. BUN and creatinine were 108 and 9.90 compared to 110 and 9.68 yesterday. Rest of the labs are reviewed. X-RAY: The patient had a chest x-ray. Chest x-ray showed small lung volumes, probably from not taking a deep breath and lying mostly flat in bed, but I do not see anything acute going on in the chest. MEDICATIONS: Medications are reviewed. She is currently on Tylenol, Rocephin, Klonopin, Prozac, [place], levothyroxine, melatonin, Narcan, Protonix, Senokot, and IV of saline which has been turned down from 125 to 75. ASSESSMENT: 1. Acute renal failure with profound hyperkalemia, improved, status post one round of hemodialysis. 2. Anion gap metabolic acidosis, improved. 3. Previous history of cerebrovascular accident/transient ischemic attack with poor memory. 4. History of myocardial infarction. 5. Morbid obesity. 6. History of pancreatitis. 7. Previous history of coma. 8. Previous history of urinary tract infection with ESBL producing organism. 9. Probable acute urinary tract infection although microbiology thus far has been negative. 10.History of cholecystitis. 11.Mild anemia. 12.Hypoalbuminemia. 13.Profound muscle weakness more lower than upper extremity with general medical debility. PLAN: The patient will be seen by Dr. Charles today. From my perspective, she is stable. She can be moved out to the floor. No additional recommendations are made. Hemodynamic status and respiratory status is stable. Microbiologic studies are thus far negative. We will continue to follow. Overall prognosis is very guarded. She is bed bound. She is at high risk for all sorts of different complications. MMODL / IJN: [id number] /
[2018-07-17] MEDS: PANTOPRAZOLE 40 MG TABLET PO SCH (10:29)
[2018-07-17] MEDS: FLUoxetine HCL 20 MG CAP PO SCH (10:29)
[2018-07-17] MEDS ORDERED: ONDANSETRON 4 MG/2 ML VIAL IVP ONE (11:17)
[2018-07-17] MEDS ORDERED: MIDAZOLAM (PF) 2 MG/2 ML VIAL IVP ONE (11:18)
[2018-07-17] MEDS ORDERED: DEXAMETHASONE SOD PHOSPHATE 10 MG/ML 1 ML VIAL IV ONE (11:18)
[2018-07-17] MEDS ORDERED: PROPOFOL 10 MG/ML 20 ML VIAL IV ONE (11:50)
[2018-07-17] MEDS ORDERED: MIDAZOLAM 2 MG/2 ML VIAL ONE (11:50)
[2018-07-17] MEDS ORDERED: fentaNYL (PF) 50 MCG/ML 2 ML AMP ONE (11:50)
[2018-07-17] MEDS ORDERED: KETAMINE 10 MG/ML 20 ML VIAL ONE (11:50)
--- NOTE | 2018-07-17 12:40 | P.OP ---
Date of Procedure: 07/17/18 Preoperative Diagnosis: Renal failure, possible left hydronephrosis Postoperative Diagnosis: Same Procedure(s) Performed: Cystoscopy, left ureteral stent change Anesthesia: MAC Surgeon: Mac Charles Estimated Blood Loss (ml): 0 IV fluids (ml): 500 Pathology: none sent Condition: stable Disposition: PACU Indications for Procedure: The patient is a 33-year-old white female with a complicated medical history. Her right kidney is atrophic. She was hospitalized in February 2018, and a computed tomography scan showed that the left kidney was obstructed by a 12x8 mm calculus at the left UPJ. The obstructing calculus was felt to be at least partially responsible for the renal failure. She underwent left ureteral stent insertion, and her renal function improved. She is now admitted with renal failure. Operative Findings: Occluded left ureteral stent Description of Procedure: The patient was taken to the operating room and placed in the dorsolithotomy position, with legs supported in [place] stirrups. The external genitalia was prepped and draped sterilely. The 30 lens was used to introduce the 22-Lithuanian Stortz cystoscopic sheath through the urethra and into the bladder under direct vision. The bladder was examined suboptimally, as the bladder capacity appeared to be very small. No tumors or foreign bodies were seen. The distal end of the left ureteral stent was grasped with grasping forceps and removed along with the cystoscope. An attempt was made to pass the 0.035 inch Glidewire through the stent, but it was occluded. Therefore, the cystoscope was replaced into the bladder. The stent was removed, allowing visualization of the left ureteral orifice, and a 0.035 inch Glidewire was passed through the cystoscope. The left ureteral orifice was cannulated, and the Glidewire was slowly advanced up to the renal pelvis. A 24 cm, 6-Lithuanian double-J ureteral stent was placed over the wire. Proper stent positioning was verified fluoroscopically and endoscopically. The cystoscope was removed, and a Rosado catheter was replaced into the bladder. The patient tolerated the procedure well was taken to the recovery room in stable condition.
[2018-07-17] MEDS: HYDROmorphone 1 MG/ML 1 ML SYRINGE IVP ONE ×2 (13:03→13:16)
--- NOTE | 2018-07-17 13:56 | FL ---
EXAMINATION TYPE: FL guidance operating room DATE OF EXAM: 07/17/2018 HISTORY: Flouroscopy time 6 seconds of fluoroscopy provided. IMPRESSION: 1. Fluoroscopy time.
--- NOTE | 2018-07-17 14:29 | P.PN ---
Subjective Patient is seen in follow-up for acute kidney injury. On admission her creatinine was 17.7 and potassium level of 7.8. Patient was emergently hemo dialyzed on July 15. Patient has history of atrophic right kidney. Patient had developed obstructive uropathy in February 2018 and at that time a double-J catheter was placed on the left. Patient underwent exchange of the catheter this morning. She has good urine output. She is awake and alert. Denies chest pain or shortness of breath. Vital signs are stable. General: The patient appeared well nourished and normally developed. HEENT: Head exam is unremarkable. Neck is without jugular venous distension. LUNGS: Lungs are clear to auscultation and percussion. Breath sounds decreased. HEART: Rate and Rhythm are regular. First and second heart sounds normal. No murmurs, rubs or gallops. ABDOMEN: Abdominal exam reveals normal bowel sounds. Non-tender and non- distended. No evidence of peritonitis. EXTREMITITES: No clubbing, cyanosis, or edema. Objective - Vital Signs Vital signs: Vital Signs Temp 97.8 F 07/17/18 12:47 Pulse 84 07/17/18 13:17 Resp 18 07/17/18 13:17 BP 146/89 07/17/18 13:17 Pulse Ox 100 07/17/18 13:17 Intake & Output 07/16/18 07/17/18 07/17/18 18:59 06:59 18:59 Intake Total 1520 1500 900 Output Total 665 845 170 Balance 855 655 730 Weight 111.9 kg Intake: IV 1520 1500 900 0.9 1145 1500 150 Dextrose 5% in Water 1, 375 000 ml @ 125 mls/hr IV . Q9H12M WILDER with Sodium Bicarb (1 Meq/ml) 150 ml Rx#:[id number] Output: Urine 665 845 170 Uretheral (Rosado) 300 300 Other: Voiding Method Indwelling Catheter Indwelling Catheter Indwelling Catheter - Labs CBC & Chem 7: 07/17/18 05:47 07/17/18 05:47 Labs: Abnormal Lab Results - Last 24 Hours (Table) 07/15/18 07/15/18 07/17/18 Range/Units 19:40 19:40 05:47 RBC 3.26 L (3.80-5.40) m/uL Hgb 9.0 L (11.4-16.0) gm/dL Hct 27.8 L (34.0-46.0) % RDW 16.2 H (11.5-15.5) % Lymphocytes # 0.9 L (1.0-4.8) k/uL BUN (7-17) mg/dL Creatinine (0.52-1.04) mg/dL Glucose (74-99) mg/dL POC Glucose (mg/dL) (75-99) mg/dL Calcium (8.4-10.2) mg/dL Phosphorus (2.5-4.5) mg/dL Magnesium (1.6-2.3) mg/dL Iron 35 L 37 L (50-170) ug/dL TIBC 130 L (228-460) ug/dL 07/17/18 07/17/18 Range/Units 05:47 07:01 RBC (3.80-5.40) m/uL Hgb (11.4-16.0) gm/dL Hct (34.0-46.0) % RDW (11.5-15.5) % Lymphocytes # (1.0-4.8) k/uL BUN 108 H* (7-17) mg/dL Creatinine 9.90 H* (0.52-1.04) mg/dL Glucose 100 H (74-99) mg/dL POC Glucose (mg/dL) 105 H (75-99) mg/dL Calcium 6.7 L (8.4-10.2) mg/dL Phosphorus 6.0 H (2.5-4.5) mg/dL Magnesium 3.7 H (1.6-2.3) mg/dL Iron (50-170) ug/dL TIBC (228-460) ug/dL Assessment and Plan Plan: Assessment: 1. Acute kidney injury secondary to obstructive uropathy status post 1 treatment of hemodialysis on July 15. Creatinine was over 17 on admission. It is 9.9 today. 2. Status post exchange of left ureteral stent this morning. 3. Hyperkalemia secondary to acute kidney injury and metabolic acidosis. Improved. 4. Atrophic right kidney. 5. Anemia. Rule out iron deficiency. 6. Pyuria. 7. Morbid obesity. Plan: I will decrease the rate of normal saline to 75 mL an hour. Encouraged oral intake. Check urine culture. Continue to monitor renal function and urine output. Hold off on hemodialysis today. Will continue to assess on day-to-day basis. Check iron studies.
--- NOTE | 2018-07-17 16:05 | P.PN ---
Subjective Progress Note Date: 07/17/18 This is a 33-year-old patient who presented to the hospital with abnormal lab values. Patient's creatinine elevated at 17.72 and bun 198. Potassium also elevated at 6.8. Patient is currently a resident at [facility] due to previous history of stroke. Patient also was admitted back in February for similar occurrence in which was found to have hydronephrosis. Patient underwent cystoscopy and left ureteral stent placement. Patient has been noncompliant with follow-up appointments to nephrology and urology services. Patient denies any specific complaints. Patient denies any recent illness. Patient denies nausea vomiting. Did discuss with longterm staff patient has not been feb rile. Per longterm staff does not believe that patient had any signs of decreased urine output. Additional medical history includes CVA in which she was on life-support in 2014, myocardial infarction, anxiety, depression, panic disorder and previous EtOH. Emergent hemodialysis catheter was placed per vascular surgery. Patient received emergent hemodialysis. Creatinine improving to 9.68 and bun 110. Potassium also improved to 4.4. Patient admitted to the intensive care unit. At this time patient remains alert and oriented 3. Patient does have poor memory. Patient denies any abdominal pain. Vitals remained stable. Nephrology, critical care and urology consult placed. At this time patient denies any chest pain or shortness of breath. Patient denies nausea vomiting or diarrhea. Patient denies any urinary burning or frequency. Rosado catheter is in place. On 07/17/2018 patient has been moved out of the intensive care unit. Patient is alert and oriented 3. Patient is status post cystoscopy with left ureteral stent change per urology services. At this time patient is resting comfortably in bed. Patient denies any significant pain. Patient denies chest pain or s hortness of breath. Patient denies nausea vomiting or diarrhea. Denies any urinary burning or frequency. Rosado catheter noted to have bloody urine output continue to monito.r Objective - Vital Signs Vital signs: Vital Signs Temp 97.6 F 07/17/18 13:37 Pulse 69 07/17/18 13:37 Resp 15 07/17/18 13:37 BP 140/94 07/17/18 14:25 Pulse Ox 96 07/17/18 13:37 Intake & Output 07/16/18 07/17/18 07/17/18 18:59 06:59 18:59 Intake Total 1520 1500 900 Output Total 665 845 170 Balance 855 655 730 Weight 111.9 kg Intake: IV 1520 1500 900 0.9 1145 1500 150 Dextrose 5% in Water 1, 375 000 ml @ 125 mls/hr IV . Q9H12M WILDER with Sodium Bicarb (1 Meq/ml) 150 ml Rx#:[id number] Output: Urine 665 845 170 Uretheral (Rosado) 300 300 Other: Voiding Method Indwelling Catheter Indwelling Catheter Indwelling Catheter - Exam Head normocephalic Neck supple Lungs clear to auscultation bilaterally no wheezing or crackles Heart regular rate and rhythm S1-S2, no rub or gallop Abdomen is soft nontender nondistended positive bowel sounds no hepatosplenomegaly Extremities no edema Neuro alert and orientated to 3 - Labs CBC & Chem 7: 07/17/18 05:47 07/17/18 05:47 Labs: Abnormal Lab Results - Last 24 Hours (Table) 07/15/18 07/15/18 07/17/18 Range/Units 19:40 19:40 05:47 RBC 3.26 L (3.80-5.40) m/uL Hgb 9.0 L (11.4-16.0) gm/dL Hct 27.8 L (34.0-46.0) % RDW 16.2 H (11.5-15.5) % Lymphocytes # 0.9 L (1.0-4.8) k/uL BUN (7-17) mg/dL Creatinine (0.52-1.04) mg/dL Glucose (74-99) mg/dL POC Glucose (mg/dL) (75-99) mg/dL Calcium (8.4-10.2) mg/dL Phosphorus (2.5-4.5) mg/dL Magnesium (1.6-2.3) mg/dL Iron 35 L 37 L (50-170) ug/dL TIBC 130 L (228-460) ug/dL 07/17/18 07/17/18 Range/Units 05:47 07:01 RBC (3.80-5.40) m/uL Hgb (11.4-16.0) gm/dL Hct (34.0-46.0) % RDW (11.5-15.5) % Lymphocytes # (1.0-4.8) k/uL BUN 108 H* (7-17) mg/dL Creatinine 9.90 H* (0.52-1.04) mg/dL Glucose 100 H (74-99) mg/dL POC Glucose (mg/dL) 105 H (75-99) mg/dL Calcium 6.7 L (8.4-10.2) mg/dL Phosphorus 6.0 H (2.5-4.5) mg/dL Magnesium 3.7 H (1.6-2.3) mg/dL Iron (50-170) ug/dL TIBC (228-460) ug/dL Assessment and Plan Assessment: 1. Acute on chronic kidney disease with hyperkalemia. Emergent hemodialysis performed. Nephrology services have been consulted. Creatinine improving to 9.68 and bun 110. Potassium 4.4. 2. Hydronephrosis due to occluded left ureteral stent. Status post cystoscopy with left ureteral stent change per urology services. 3. Anemia likely secondary to chronic kidney disease stage stage III. We'll continue to monitor nephrology services are following 4. Urinary tract infection. Urine culture ordered. Patient on Rocephin 5. Metabolic acidosis. Patient remains on dextrose with sodium bicarb 6. History of CVA with poor memory 7. History of myocardial infarction 8. History of pancreatitis 9. History of chronic pain. Patient maintained on [place] 10. History of anxiety depression and panic disorder DVT prophylaxis heparin. GI prophylaxis Protonix. I performed an examination of the patient and discussed their management with the Nurse Practitioner. I have reviewed the Nurse Practitioner's notes and agree with the documented findings and plan of care
[2018-07-17 17:18] LABS: Glucose,Whole Blood 154 mg/dL (75-99)
[2018-07-17 19:12] LABS: Iron Saturation 26.85 (12.00-45.00)
[2018-07-17 20:19] LABS: Glucose,Whole Blood 160 mg/dL (75-99)
[2018-07-18] MEDS: HYDROmorphone 0.5 MG/0.5 ML SYRINGE IVP PRN ×2 (04:23→10:15)
[2018-07-18] MEDS: LEVOTHYROXINE 25 MCG TAB PO SCH (05:41)
[2018-07-18] MEDS: HEPARIN SODIUM,PORCINE 5,000 UNIT/ML 1 ML VIAL SQ SCH ×2 (07:22→21:48)
[2018-07-18] MEDS: FLUoxetine HCL 20 MG CAP PO SCH (07:22)
[2018-07-18] MEDS: PANTOPRAZOLE 40 MG TABLET PO SCH (07:22)
[2018-07-18] MEDS: SENNOSIDES 8.6 MG TAB PO SCH ×2 (07:23→22:10)
[2018-07-18] MEDS: SODIUM CHLORIDE 0.9% 1,000 ML IV SCH ×2 (07:25→21:50)
[2018-07-18] MEDS: HYDROcodone/APAP 7.5-325MG 1 EACH TAB PO PRN ×2 (07:27→15:49)
[2018-07-18 07:37] LABS: Glucose,Whole Blood 218 mg/dL (75-99)
--- NOTE | 2018-07-18 09:41 | P.PN ---
Subjective Patient is seen in follow-up for acute kidney injury. On admission her creatinine was 17.7 and potassium level of 7.8. Patient was emergently hemo dialyzed on July 15. Patient has history of atrophic right kidney. Patient had developed obstructive uropathy in February 2018 and at that time a double-J catheter was placed on the left. Patient underwent exchange of the catheter on July 17. She has good urine output. She is awake and alert. Denies chest pain or shortness of breath. Vital signs are stable. General: The patient appeared well nourished and normally developed. HEENT: Head exam is unremarkable. Neck is without jugular venous distension. LUNGS: Lungs are clear to auscultation and percussion. Breath sounds decreased. HEART: Rate and Rhythm are regular. First and second heart sounds normal. No murmurs, rubs or gallops. ABDOMEN: Abdominal exam reveals normal bowel sounds. Non-tender and non- distended. No evidence of peritonitis. EXTREMITITES: No clubbing, cyanosis, or edema. Objective - Vital Signs Vital signs: Vital Signs Temp 98.2 F 07/18/18 06:05 Pulse 66 07/18/18 06:05 Resp 18 07/18/18 06:05 BP 127/76 07/18/18 06:05 Pulse Ox 98 07/18/18 06:05 Intake & Output 07/17/18 07/18/18 07/18/18 18:59 06:59 18:59 Intake Total 900 250 Output Total 670 2300 Balance 230 -2050 Intake: IV 900 0.9 150 Oral 250 Output: Urine 670 2300 Other: Voiding Method Indwelling Catheter Indwelling Catheter Indwelling Catheter # Bowel Movements 1 - Labs CBC & Chem 7: 07/17/18 05:47 07/17/18 05:47 Labs: Abnormal Lab Results - Last 24 Hours (Table) 07/17/18 07/17/18 07/17/18 Range/Units 05:47 17:16 20:17 POC Glucose (mg/dL) 154 H 160 H (75-99) mg/dL Iron 40 L (50-170) ug/dL TIBC 149 L (228-460) ug/dL Ferritin 619.6 H (10.0-291.0) ng/mL 07/18/18 Range/Units 07:03 POC Glucose (mg/dL) 218 H (75-99) mg/dL Iron (50-170) ug/dL TIBC (228-460) ug/dL Ferritin (10.0-291.0) ng/mL Microbiology - Last 24 Hours (Table) 07/17/18 15:47 Urine Culture - Preliminary Urine,Catheterized Assessment and Plan Plan: Assessment: 1. Acute kidney injury secondary to obstructive uropathy status post 1 treatment of hemodialysis on July 15. Creatinine was over 17 on admission. 2. Status post exchange of left ureteral stent on July 17. 3. Hyperkalemia secondary to acute kidney injury and metabolic acidosis. Improved. 4. Atrophic right kidney. 5. Pyuria. Urine culture pending. 6. Morbid obesity. Plan: Maintain normal saline at 75 mL an hour. Encouraged oral intake. Follow-up urine culture. Continue to monitor renal function and urine output. Hold off on hemodialysis today. Will continue to assess on day-to-day basis. Morning labs pending.
[2018-07-18 11:26] LABS: Basophils % (A) 0 %; Eosinophils % (A) 1 %; HCT 28.4 % (34.0-46.0); HGB 8.8 gm/dL (11.4-16.0); Hypochromasia Slight; Lymphocytes # (A) 0.9 k/uL (1.0-4.8); Lymphocytes % (A) 16 %; MCH 26.9 pg (25.0-35.0); MCHC 31.1 g/dL (31.0-37.0); MCV 86.4 fL (80.0-100.0); Mean Platelet Volume 7.3; Monocytes # (A) 0.4 k/uL (0-1.0); Monocytes % (A) 6 %; Neutrophils # (A) 4.3 k/uL (1.3-7.7); Neutrophils % (A) 76 %; Platelet Count 208 k/uL (150-450); RBC 3.29 m/uL (3.80-5.40); WBC 5.7 k/uL (3.8-10.6)
[2018-07-18 11:43] LABS: Calcium 7.2 mg/dL (8.4-10.2); Phosphorus 5.9 mg/dL (2.5-4.5); Potassium 4.1 mmol/L (3.5-5.1)
[2018-07-18 12:03] LABS: Glucose,Whole Blood 172 mg/dL (75-99)
--- NOTE | 2018-07-18 12:03 | P.PN ---
Subjective Progress Note Date: 07/18/18 This is a 33-year-old patient who presented to the hospital with abnormal lab values. Patient's creatinine elevated at 17.72 and bun 198. Potassium also elevated at 6.8. Patient is currently a resident at [facility] due to previous history of stroke. Patient also was admitted back in February for similar occurrence in which was found to have hydronephrosis. Patient underwent cystoscopy and left ureteral stent placement. Patient has been noncompliant with follow-up appointments to nephrology and urology services. Patient denies any specific complaints. Patient denies any recent illness. Patient denies nausea vomiting. Did discuss with [facility] staff patient has not been feb rile. Per [facility] staff does not believe that patient had any signs of decreased urine output. Additional medical history includes CVA in which she was on life-support in 2014, myocardial infarction, anxiety, depression, panic disorder and previous EtOH. Emergent hemodialysis catheter was placed per vascular surgery. Patient received emergent hemodialysis. Creatinine improving to 9.68 and bun 110. Potassium also improved to 4.4. Patient admitted to the intensive care unit. At this time patient remains alert and oriented 3. Patient does have poor memory. Patient denies any abdominal pain. Vitals remained stable. Nephrology, critical care and urology consult placed. At this time patient denies any chest pain or shortness of breath. Patient denies nausea vomiting or diarrhea. Patient denies any urinary burning or frequency. Rosado catheter is in place. On 07/17/2018 patient has been moved out of the intensive care unit. Patient is alert and oriented 3. Patient is status post cystoscopy with left ureteral stent change per urology services. At this time patient is resting comfortably in bed. Patient denies any significant pain. Patient denies chest pain or s hortness of breath. Patient denies nausea vomiting or diarrhea. Denies any urinary burning or frequency. Rosado catheter noted to have bloody urine output continue to monito. On 07/18/2018 patient is currently resting comfortably bed. Patient is alert and oriented 3. Creatinine is continuing to trend down. hemodialysis currently on hold. Per nephrology will continue to assess on a day-to-day basis. Urine output has significantly improved. At this time patient denies chest pain or shortness of breath. Patient denies nausea vomiting or diarrhea. Patient denies any urinary burning or frequency. Objective - Vital Signs Vital signs: Vital Signs Temp 98.2 F 07/18/18 06:05 Pulse 66 07/18/18 06:05 Resp 18 07/18/18 06:05 BP 127/76 07/18/18 06:05 Pulse Ox 98 07/18/18 06:05 Intake & Output 07/17/18 07/18/18 07/18/18 18:59 06:59 18:59 Intake Total 900 250 Output Total 670 2300 2100 Balance Intake: IV 900 0.9 150 Oral 250 Output: Urine 670 2300 2100 Other: Voiding Method Indwelling Catheter Indwelling Catheter Indwelling Catheter # Bowel Movements 1 - Exam Head normocephalic Neck supple Lungs clear to auscultation bilaterally no wheezing or crackles Heart regular rate and rhythm S1-S2, no rub or gallop Abdomen is soft nontender nondistended positive bowel sounds no hepatosplen omegaly Extremities no edema Neuro alert and orientated to 3 - Labs CBC & Chem 7: 07/18/18 10:52 07/18/18 10:52 Labs: Abnormal Lab Results - Last 24 Hours (Table) 07/17/18 07/17/18 07/17/18 Range/Units 05:47 17:16 20:17 RBC (3.80-5.40) m/uL Hgb (11.4-16.0) gm/dL Hct (34.0-46.0) % RDW (11.5-15.5) % Lymphocytes # (1.0-4.8) k/uL BUN (7-17) mg/dL Creatinine (0.52-1.04) mg/dL Glucose (74-99) mg/dL POC Glucose (mg/dL) 154 H 160 H (75-99) mg/dL Calcium (8.4-10.2) mg/dL Phosphorus (2.5-4.5) mg/dL Magnesium (1.6-2.3) mg/dL Iron 40 L (50-170) ug/dL TIBC 149 L (228-460) ug/dL Ferritin 619.6 H (10.0-291.0) ng/mL 07/18/18 07/18/18 07/18/18 Range/Units 07:03 10:52 10:52 RBC 3.29 L (3.80-5.40) m/uL Hgb 8.8 L (11.4-16.0) gm/dL Hct 28.4 L (34.0-46.0) % RDW 16.0 H (11.5-15.5) % Lymphocytes # 0.9 L (1.0-4.8) k/uL BUN 95 H (7-17) mg/dL Creatinine 7.89 H* (0.52-1.04) mg/dL Glucose 200 H (74-99) mg/dL POC Glucose (mg/dL) 218 H (75-99) mg/dL Calcium 7.2 L (8.4-10.2) mg/dL Phosphorus 5.9 H (2.5-4.5) mg/dL Magnesium 3.0 H (1.6-2.3) mg/dL Iron (50-170) ug/dL TIBC (228-460) ug/dL Ferritin (10.0-291.0) ng/mL Microbiology - Last 24 Hours (Table) 07/17/18 15:47 Urine Culture - Preliminary Urine,Catheterized Assessment and Plan Assessment: 1. Acute on chronic kidney disease with hyperkalemia secondary to obstructive uropathy. Emergent hemodialysis performed. Nephrology services have been consulted. Creatinine improving. per nephrology continue to monitor renal function and hold off on hemodialysis. Continue to assess on a day-to-day basis 2. Status post cystoscopy with left ureteral stent change per urology services. 3. Anemia likely secondary to chronic kidney disease stage stage III. We'll continue to monitor nephrology services are following 4. Urinary tract infection. Urine culture ordered. Patient on Rocephin 5. Metabolic acidosis. Resolved 6. History of CVA with poor memory 7. History of myocardial infarction 8. History of pancreatitis 9. History of chronic pain. Patient maintained on [place] 10. History of anxiety depression and panic disorder 11. Atrophic right kidney 12. Elevated blood sugars. Patient started on sliding scale insulin. Hemoglobin A1c. Patient may require medications upon discharge. DVT prophylaxis heparin. GI prophylaxis Protonix. I performed an examination of the patient and discussed their management with the Nurse Practitioner. I have reviewed the Nurse Practitioner's notes and agree with the documented findings and plan of care
[2018-07-18] MEDS: INSULIN ASPART (NovoLOG) 100 UNIT/ML VIAL SQ SCH ×3 (12:05→21:49)
[2018-07-18 13:14] LABS: Hepatitis B Virus DNA DETECTED (Not detected); Hepatitis B Virus DNA, Quant 120 IU/mL (<10); Log HBV IU/mL 2.08 (<1.00)
[2018-07-18 16:58] LABS: Glucose,Whole Blood 132 mg/dL (75-99)
[2018-07-18 18:46] LABS: Hemoglobin A1C 6.8 % (4.0-6.0)
[2018-07-18] MEDS: clonazePAM 0.5 MG TAB PO SCH (21:48)
[2018-07-18] MEDS: MELATONIN 5 MG TABLET PO SCH (21:49)
[2018-07-18 21:59] LABS: Glucose,Whole Blood 148 mg/dL (75-99)
[2018-07-19] MEDS: HYDROcodone/APAP 7.5-325MG 1 EACH TAB PO PRN ×3 (02:23→20:36)
[2018-07-19] MEDS: LEVOTHYROXINE 25 MCG TAB PO SCH (06:11)
[2018-07-19 06:53] LABS: Anisocytosis Slight; Basophils % (A) 0 %; Eosinophils # (A) 0.1 k/uL (0-0.7); Eosinophils % (A) 2 %; HCT 25.5 % (34.0-46.0); HGB 8.1 gm/dL (11.4-16.0); Hypochromasia Moderate; Lymphocytes # (A) 1.3 k/uL (1.0-4.8); Lymphocytes % (A) 25 %; MCHC 31.9 g/dL (31.0-37.0); MCV 87.7 fL (80.0-100.0); Mean Platelet Volume 7.4; Monocytes # (A) 0.4 k/uL (0-1.0); Monocytes % (A) 7 %; Neutrophils # (A) 3.3 k/uL (1.3-7.7); Neutrophils % (A) 62 %; Platelet Count 167 k/uL (150-450); RBC 2.91 m/uL (3.80-5.40); RDW 16.4 % (11.5-15.5); WBC 5.3 k/uL (3.8-10.6)
[2018-07-19 07:07] LABS: Magnesium 2.5 mg/dL (1.6-2.3); Phosphorus 5.2 mg/dL (2.5-4.5); Potassium 3.9 mmol/L (3.5-5.1)
[2018-07-19 07:20] LABS: Glucose,Whole Blood 101 mg/dL (75-99)
[2018-07-19] MEDS: INSULIN ASPART (NovoLOG) 100 UNIT/ML VIAL SQ SCH ×4 (07:24→20:38)
[2018-07-19] MEDS: SENNOSIDES 8.6 MG TAB PO SCH ×2 (07:24→20:37)
[2018-07-19] MEDS: CLOPIDOGREL 75 MG TAB PO SCH (07:36)
[2018-07-19] MEDS: HEPARIN SODIUM,PORCINE 5,000 UNIT/ML 1 ML VIAL SQ SCH ×2 (07:36→20:38)
[2018-07-19] MEDS: FLUoxetine HCL 20 MG CAP PO SCH (07:36)
[2018-07-19] MEDS: PANTOPRAZOLE 40 MG TABLET PO SCH (07:36)
[2018-07-19] MEDS: SODIUM CHLORIDE 0.9% 1,000 ML IV SCH ×2 (07:37→23:07)
--- NOTE | 2018-07-19 09:21 | P.PN ---
Progress Note - Text Progress Note Date: 07/19/18 Radha is resting comfortably. She denies pain. Her serum creatinine level has decreased to 6.38. Once she is stable, I would like to perform cystoscopy, left ureteral stent removal, left ureteroscopy with laser lithotripsy to reduce the risk of her failing to follow up and end up with stent related complications.
--- NOTE | 2018-07-19 10:37 | P.PN ---
Subjective Patient is seen in follow-up for acute kidney injury. On admission her creatinine was 17.7 and potassium level of 7.8. Patient was emergently hemo dialyzed on July 15. Patient has history of atrophic right kidney. Patient had developed obstructive uropathy in February 2018 and at that time a double-J catheter was placed on the left. Patient underwent exchange of the catheter on July 17. She has good urine output. She is awake and alert. Denies chest pain or shortness of breath. Renal function is gradually improving. Creatinine 6.3 today. Patient has no active complaints at this time. Vital signs are stable. General: The patient appeared well nourished and normally developed. HEENT: Head exam is unremarkable. Neck is without jugular venous distension. LUNGS: Lungs are clear to auscultation and percussion. Breath sounds decreased. HEART: Rate and Rhythm are regular. First and second heart sounds normal. No murmurs, rubs or gallops. ABDOMEN: Abdominal exam reveals normal bowel sounds. Non-tender and non- distended. Obese. EXTREMITITES: No clubbing, cyanosis, or edema. Objective - Vital Signs Vital signs: Vital Signs Temp 98.8 F 07/19/18 07:00 Pulse 85 07/19/18 07:00 Resp 16 07/19/18 07:00 BP 119/73 07/19/18 07:00 Pulse Ox 93 L 07/19/18 07:00 Intake & Output 07/18/18 07/19/18 07/19/18 18:59 06:59 18:59 Intake Total 800 320 Output Total 3550 3602 Balance -3550 -2802 320 Intake: Intake, IV Titration 600 Amount Sodium [place]lor[place] 0.9% 1, 600 000 ml @ 75 mls/hr IV . [id number] [facility] Rx#:[id number] Oral 200 320 Output: Urine 3550 3600 Uretheral (Rosado) 3600 Stool 2 Other: Voiding Method Indwelling Catheter Indwelling Catheter Indwelling Catheter - Labs CBC & Chem 7: 07/19/18 05:56 07/19/18 05:56 Labs: Abnormal Lab Results - Last 24 Hours (Table) 07/16/18 07/18/18 07/18/18 Range/Units 05:50 10:52 10:52 RBC 3.29 L (3.80-5.40) m/uL Hgb 8.8 L (11.4-16.0) gm/dL Hct 28.4 L (34.0-46.0) % RDW 16.0 H (11.5-15.5) % Lymphocytes # 0.9 L (1.0-4.8) k/uL Ch[place] (98-107) mmol/L Carbon Dioxide (22-30) mmol/L BUN 95 H (7-17) mg/dL Creatinine 7.89 H* (0.52-1.04) mg/dL Glucose 200 H (74-99) mg/dL POC Glucose (mg/dL) (75-99) mg/dL Hemoglobin A1c (4.0-6.0) % Calcium 7.2 L (8.4-10.2) mg/dL Phosphorus 5.9 H (2.5-4.5) mg/dL Magnesium 3.0 H (1.6-2.3) mg/dL Hepatitis B DNA, Quant 120 H (<10) IU/mL Hep B DNA Qnt log IU/mL 2.08 H (<1.00) Hep B DNA Interpret DETECTED H (Not detected) 07/18/18 07/18/18 07/18/18 Range/Units 10:52 11:55 16:56 RBC (3.80-5.40) m/uL Hgb (11.4-16.0) gm/dL Hct (34.0-46.0) % RDW (11.5-15.5) % Lymphocytes # (1.0-4.8) k/uL [place] (98-107) mmol/L Carbon Dioxide (22-30) mmol/L BUN (7-17) mg/dL Creatinine (0.52-1.04) mg/dL Glucose (74-99) mg/dL POC Glucose (mg/dL) 172 H 132 H (75-99) mg/dL Hemoglobin A1c 6.8 H (4.0-6.0) % Calcium (8.4-10.2) mg/dL Phosphorus (2.5-4.5) mg/dL Magnesium (1.6-2.3) mg/dL Hepatitis B DNA, Quant (<10) IU/mL Hep B DNA Qnt log IU/mL (<1.00) Hep B DNA Interpret (Not detected) 07/18/18 07/19/18 07/19/18 Range/Units 21:49 05:56 05:56 RBC 2.91 L (3.80-5.40) m/uL Hgb 8.1 L (11.4-16.0) gm/dL Hct 25.5 L (34.0-46.0) % RDW 16.4 H (11.5-15.5) % Lymphocytes # (1.0-4.8) k/uL Ch[place] 110 H (98-107) mmol/L Carbon Dioxide 21 L (22-30) mmol/L BUN 77 H (7-17) mg/dL Creatinine 6.38 H (0.52-1.04) mg/dL Glucose 107 H (74-99) mg/dL POC Glucose (mg/dL) 148 H (75-99) mg/dL Hemoglobin A1c (4.0-6.0) % Calcium 7.0 L (8.4-10.2) mg/dL Phosphorus 5.2 H (2.5-4.5) mg/dL Magnesium 2.5 H (1.6-2.3) mg/dL Hepatitis B DNA, Quant (<10) IU/mL Hep B DNA Qnt log IU/mL (<1.00) Hep B DNA Interpret (Not detected) 07/19/18 Range/Units 07:16 RBC (3.80-5.40) m/uL Hgb (11.4-16.0) gm/dL Hct (34.0-46.0) % RDW (11.5-15.5) % Lymphocytes # (1.0-4.8) k/uL [place] (98-107) mmol/L Carbon Dioxide (22-30) mmol/L BUN (7-17) mg/dL Creatinine (0.52-1.04) mg/dL Glucose (74-99) mg/dL POC Glucose (mg/dL) 101 H (75-99) mg/dL Hemoglobin A1c (4.0-6.0) % Calcium (8.4-10.2) mg/dL Phosphorus (2.5-4.5) mg/dL Magnesium (1.6-2.3) mg/dL Hepatitis B DNA, Quant (<10) IU/mL Hep B DNA Qnt log IU/mL (<1.00) Hep B DNA Interpret (Not detected) Microbiology - Last 24 Hours (Table) 07/17/18 15:47 Urine Culture - Preliminary Urine,Catheterized Gram Neg Bacilli Assessment and Plan Plan: Assessment: 1. Acute kidney injury secondary to obstructive uropathy status post 1 treatme nt of hemodialysis on July 15. Creatinine was over 17 on admission. Renal function is slowly improving. Creatinine 6.3 today. Urine output over 7 L which is due to postobstructive diuresis. 2. Status post exchange of left ureteral stent on July 17. 3. Hyperkalemia secondary to acute kidney injury and metabolic acidosis. Improved. 4. Atrophic right kidney. 5. UTI. Urine culture positive for gram-negative bacilli. Maintained on antibiotics. 6. Morbid obesity. 7. Hyperphosphatemia secondary to acute kidney injury. Improving. Plan: Maintain normal saline at 75 mL an hour. Encouraged oral intake. Follow-up urine culture. Continue to monitor renal function and urine output. Hold off on hemodialysis today. Will continue to assess on day-to-day basis. Repeat electrolytes in the morning.
[2018-07-19 11:53] LABS: Glucose,Whole Blood 222 mg/dL (75-99)
--- NOTE | 2018-07-19 15:34 | P.PN ---
Subjective Progress Note Date: 07/19/18 This is a 33-year-old patient who presented to the hospital with abnormal lab values. Patient's creatinine elevated at 17.72 and bun 198. Potassium also elevated at 6.8. Patient is currently a resident at [facility] due to previous history of stroke. Patient also was admitted back in February for similar occurrence in which was found to have hydronephrosis. Patient underwent cystoscopy and left ureteral stent placement. Patient has been noncompliant with follow-up appointments to nephrology and urology services. Patient denies any specific complaints. Patient denies any recent illness. Patient denies nausea vomiting. Did discuss with [facility] staff patient has not been feb rile. Per [facility] staff does not believe that patient had any signs of decreased urine output. Additional medical history includes CVA in which she was on life-support in 2014, myocardial infarction, anxiety, depression, panic disorder and previous EtOH. Emergent hemodialysis catheter was placed per vascular surgery. Patient received emergent hemodialysis. Creatinine improving to 9.68 and bun 110. Potassium also improved to 4.4. Patient admitted to the intensive care unit. At this time patient remains alert and oriented 3. Patient does have poor memory. Patient denies any abdominal pain. Vitals remained stable. Nephrology, critical care and urology consult placed. At this time patient denies any chest pain or shortness of breath. Patient denies nausea vomiting or diarrhea. Patient denies any urinary burning or frequency. Rosado catheter is in place. On 07/17/2018 patient has been moved out of the intensive care unit. Patient is alert and oriented 3. Patient is status post cystoscopy with left ureteral stent change per urology services. At this time patient is resting comfortably in bed. Patient denies any significant pain. Patient denies chest pain or s hortness of breath. Patient denies nausea vomiting or diarrhea. Denies any urinary burning or frequency. Rosado catheter noted to have bloody urine output continue to monito. On 07/18/2018 patient is currently resting comfortably bed. Patient is alert and oriented 3. Creatinine is continuing to trend down. hemodialysis currently on hold. Per nephrology will continue to assess on a day-to-day basis. Urine output has significantly improved. At this time patient denies chest pain or shortness of breath. Patient denies nausea vomiting or diarrhea. Patient denies any urinary burning or frequency. On 07/19/2018 patient was seen and examined on the medical floor she is alert and oriented 3 she is feeling anxious otherwise she denies any complaints there is no fever or chills no headache or dizziness no chest pain no shortness of breath no cough no nausea or vomiting no abdominal pain no diarrhea and no urinary symptoms, hemoglobin is down to 8.1 creatinine improving currently at 6.38 patient is off dialysis at this time Objective - Vital Signs Vital signs: Vital Signs Temp 98.8 F 07/19/18 07:00 Pulse 85 07/19/18 07:00 Resp 16 07/19/18 07:00 BP 119/73 07/19/18 07:00 Pulse Ox 93 L 07/19/18 07:00 Intake & Output 07/18/18 07/19/18 07/19/18 18:59 06:59 18:59 Intake Total 800 520 Output Total 3550 3602 1800 Balance -3550 -2802 -1280 Intake: Intake, IV Titration 600 Amount Sodium Chloride 0.9% 1, 600 000 ml @ 75 mls/hr IV . [id number] [facility] Rx#:[id number] Oral 200 520 Output: Urine 3550 3600 1800 Uretheral (Rosado) 3600 Stool 2 Other: Voiding Method Indwelling Catheter Indwelling Catheter Indwelling Catheter - Exam In general patient is alert and oriented 3 in no apparent distress Head normocephalic and atraumatic Neck supple no JVD no goiter Lungs clear to auscultation bilaterally no wheezing or crackles Heart regular rate and rhythm S1-S2, no rub or gallop Abdomen is soft nontender nondistended positive bowel sounds no hepatosplenomegaly Extremities no edema no cyanosis or clubbing - Labs CBC & Chem 7: 07/19/18 05:56 07/19/18 05:56 Labs: Abnormal Lab Results - Last 24 Hours (Table) 07/18/18 07/18/18 07/18/18 Range/Units 10:52 16:56 21:49 RBC (3.80-5.40) m/uL Hgb (11.4-16.0) gm/dL Hct (34.0-46.0) % RDW (11.5-15.5) % Chloride (98-107) mmol/L Carbon Dioxide (22-30) mmol/L BUN (7-17) mg/dL Creatinine (0.52-1.04) mg/dL Glucose (74-99) mg/dL POC Glucose (mg/dL) 132 H 148 H (75-99) mg/dL Hemoglobin A1c 6.8 H (4.0-6.0) % Calcium (8.4-10.2) mg/dL Phosphorus (2.5-4.5) mg/dL Magnesium (1.6-2.3) mg/dL 07/19/18 07/19/18 07/19/18 Range/Units 05:56 05:56 07:16 RBC 2.91 L (3.80-5.40) m/uL Hgb 8.1 L (11.4-16.0) gm/dL Hct 25.5 L (34.0-46.0) % RDW 16.4 H (11.5-15.5) % Chloride 110 H (98-107) mmol/L Carbon Dioxide 21 L (22-30) mmol/L BUN 77 H (7-17) mg/dL Creatinine 6.38 H (0.52-1.04) mg/dL Glucose 107 H (74-99) mg/dL POC Glucose (mg/dL) 101 H (75-99) mg/dL Hemoglobin A1c (4.0-6.0) % Calcium 7.0 L (8.4-10.2) mg/dL Phosphorus 5.2 H (2.5-4.5) mg/dL Magnesium 2.5 H (1.6-2.3) mg/dL 07/19/18 Range/Units 11:47 RBC (3.80-5.40) m/uL Hgb (11.4-16.0) gm/dL Hct (34.0-46.0) % RDW (11.5-15.5) % Chloride (98-107) mmol/L Carbon Dioxide (22-30) mmol/L BUN (7-17) mg/dL Creatinine (0.52-1.04) mg/dL Glucose (74-99) mg/dL POC Glucose (mg/dL) 222 H (75-99) mg/dL Hemoglobin A1c (4.0-6.0) % Calcium (8.4-10.2) mg/dL Phosphorus (2.5-4.5) mg/dL Magnesium (1.6-2.3) mg/dL Microbiology - Last 24 Hours (Table) 07/17/18 15:47 Urine Culture - Preliminary Urine,Catheterized Gram Neg Bacilli Assessment and Plan Plan: 1. Acute on chronic kidney disease with hyperkalemia secondary to obstructive uropathy. Emergent hemodialysis performed. Nephrology services have been consulted. Creatinine improving. per nephrology continue to monitor renal function and hold off on hemodialysis. Continue to assess on a day-to-day basis 2. Status post cystoscopy with left ureteral stent change per urology services. 3. Anemia likely secondary to chronic kidney disease stage stage III. We'll continue to monitor nephrology services are following 4. Urinary tract infection. Urine culture ordered. Patient on Rocephin 5. Metabolic acidosis. Resolved 6. History of CVA with poor memory 7. History of myocardial infarction 8. History of pancreatitis 9. History of chronic pain. Patient maintained on [place] 10. History of anxiety depression and panic disorder 11. Atrophic right kidney 12. Elevated blood sugars. Patient started on sliding scale insulin. Hemoglobin A1c. Patient may require medications upon discharge. DVT prophylaxis heparin. GI prophylaxis Protonix.
[2018-07-19 17:32] LABS: Glucose,Whole Blood 126 mg/dL (75-99)
[2018-07-19 19:58] LABS: Glucose,Whole Blood 159 mg/dL (75-99)
[2018-07-19] MEDS: clonazePAM 0.5 MG TAB PO SCH (20:36)
[2018-07-19] MEDS: MELATONIN 5 MG TABLET PO SCH (20:36)
[2018-07-20] MEDS: LEVOTHYROXINE 25 MCG TAB PO SCH (04:56)
[2018-07-20] MEDS: HYDROcodone/APAP 7.5-325MG 1 EACH TAB PO PRN ×2 (04:56→13:38)
[2018-07-20 07:29] LABS: Glucose,Whole Blood 111 mg/dL (75-99)
[2018-07-20] MEDS: HYDROmorphone 0.5 MG/0.5 ML SYRINGE IVP PRN ×2 (07:37→14:55)
[2018-07-20] MEDS: INSULIN ASPART (NovoLOG) 100 UNIT/ML VIAL SQ SCH ×4 (07:43→20:54)
[2018-07-20] MEDS: PANTOPRAZOLE 40 MG TABLET PO SCH (07:43)
[2018-07-20] MEDS: CLOPIDOGREL 75 MG TAB PO SCH (07:43)
[2018-07-20] MEDS: FLUoxetine HCL 20 MG CAP PO SCH (07:43)
[2018-07-20] MEDS: SENNOSIDES 8.6 MG TAB PO SCH ×2 (07:43→20:55)
[2018-07-20] MEDS: HEPARIN SODIUM,PORCINE 5,000 UNIT/ML 1 ML VIAL SQ SCH ×2 (07:43→20:55)
--- NOTE | 2018-07-20 08:29 | P.PN ---
Subjective Patient is seen in follow-up for acute kidney injury. On admission her creatinine was 17.7 and potassium level of 7.8. Patient was emergently hemo dialyzed on July 15. Patient has history of atrophic right kidney. Patient had developed obstructive uropathy in February 2018 and at that time a double-J catheter was placed on the left. Patient underwent exchange of the catheter on July 17. She has good urine output. She is awake and alert. Denies chest pain or shortness of breath. Renal function is gradually improving. Creatinine 6.38 as of yesterday. Patient has no active complaints at this time. Vital signs are stable. General: The patient appeared well nourished and normally developed. HEENT: Head exam is unremarkable. Neck is without jugular venous distension. LUNGS: Lungs are clear to auscultation and percussion. Breath sounds decreased. HEART: Rate and Rhythm are regular. First and second heart sounds normal. No murmurs, rubs or gallops. ABDOMEN: Abdominal exam reveals normal bowel sounds. Non-tender and non- distended. Obese. EXTREMITITES: No clubbing, cyanosis, or edema. Objective - Vital Signs Vital signs: Vital Signs Temp 98.3 F 07/20/18 07:00 Pulse 79 07/20/18 07:00 Resp 16 07/20/18 07:00 BP 122/82 07/20/18 07:00 Pulse Ox 98 07/20/18 07:00 Intake & Output 07/19/18 07/20/18 07/20/18 18:59 06:59 18:59 Intake Total 520 900 Output Total 1800 3500 Balance -1280 -2600 Intake: Intake, IV Titration 650 Amount Sodium Chloride 0.9% 1, 600 000 ml @ 75 mls/hr IV . [id number] [facility] Rx#:[id number] cefTRIAXone 2 gm In 50 Sodium Chloride 0.9% 50 ml @ 100 mls/hr IVPB HS [facility] Rx#:[id number] Oral 520 250 Output: Urine 1800 3500 Other: Voiding Method Indwelling Catheter Indwelling Catheter Indwelling Catheter - Labs CBC & Chem 7: 07/19/18 05:56 07/19/18 05:56 Labs: Abnormal Lab Results - Last 24 Hours (Table) 07/19/18 07/19/18 07/19/18 Range/Units 11:47 17:30 19:57 POC Glucose (mg/dL) 222 H 126 H 159 H (75-99) mg/dL 07/20/18 Range/Units 07:28 POC Glucose (mg/dL) 111 H (75-99) mg/dL Microbiology - Last 24 Hours (Table) 07/17/18 15:47 Urine Culture - Preliminary Urine,Catheterized Escherichia coli Assessment and Plan Plan: Assessment: 1. Acute kidney injury secondary to obstructive uropathy status post 1 treatment of hemodialysis on July 15. Creatinine was over 17 on admission. Renal function is slowly improving. Creatinine 6.38 as of yesterday. 2. Status post exchange of left ureteral stent on July 17. 3. Hyperkalemia secondary to acute kidney injury and metabolic acidosis. Improved. 4. Atrophic right kidney. 5. UTI. Urine culture positive for E. coli. Maintained on antibiotics. 6. Morbid obesity. 7. Hyperphosphatemia secondary to acute kidney injury. Improving. Plan: Maintain normal saline at 75 mL an hour. Encouraged oral intake. Continue to monitor renal function and urine output. Hold off on hemodialysis today. Will continue to assess on day-to-day basis. Repeat electrolytes in the morning.
[2018-07-20 08:35] LABS: Calcium 7.4 mg/dL (8.4-10.2); Potassium 4.2 mmol/L (3.5-5.1); Total Bilirubin 0.2 mg/dL (0.2-1.3); Total Protein 6.3 g/dL (6.3-8.2)
[2018-07-20] MEDS ORDERED: ERTAPENEM 1 GM in SODIUM CHLORIDE 0.9% 50 ML IVPB SCH (11:15)
[2018-07-20 11:28] LABS: Glucose,Whole Blood 223 mg/dL (75-99)
[2018-07-20] MEDS: SODIUM CHLORIDE 0.9% 1,000 ML IV SCH (11:48)
--- NOTE | 2018-07-20 13:09 | P.PN ---
Subjective Progress Note Date: 07/20/18 This is a 33-year-old patient who presented to the hospital with abnormal lab values. Patient's creatinine elevated at 17.72 and bun 198. Potassium also elevated at 6.8. Patient is currently a resident at [facility] due to previous history of stroke. Patient also was admitted back in February for similar occurrence in which was found to have hydronephrosis. Patient underwent cystoscopy and left ureteral stent placement. Patient has been noncompliant with follow-up appointments to nephrology and urology services. Patient denies any specific complaints. Patient denies any recent illness. Patient denies nausea vomiting. Did discuss with group home staff patient has not been feb rile. Per group home staff does not believe that patient had any signs of decreased urine output. Additional medical history includes CVA in which she was on life-support in 2014, myocardial infarction, anxiety, depression, panic disorder and previous EtOH. Emergent hemodialysis catheter was placed per vascular surgery. Patient received emergent hemodialysis. Creatinine improving to 9.68 and bun 110. Potassium also improved to 4.4. Patient admitted to the intensive care unit. At this time patient remains alert and oriented 3. Patient does have poor memory. Patient denies any abdominal pain. Vitals remained stable. Nephrology, critical care and urology consult placed. At this time patient denies any chest pain or shortness of breath. Patient denies nausea vomiting or diarrhea. Patient denies any urinary burning or frequency. Rosado catheter is in place. On 07/17/2018 patient has been moved out of the intensive care unit. Patient is alert and oriented 3. Patient is status post cystoscopy with left ureteral stent change per urology services. At this time patient is resting comfortably in bed. Patient denies any significant pain. Patient denies chest pain or s hortness of breath. Patient denies nausea vomiting or diarrhea. Denies any urinary burning or frequency. Rosado catheter noted to have bloody urine output continue to monito. On 07/18/2018 patient is currently resting comfortably bed. Patient is alert and oriented 3. Creatinine is continuing to trend down. hemodialysis currently on hold. Per nephrology will continue to assess on a day-to-day basis. Urine output has significantly improved. At this time patient denies chest pain or shortness of breath. Patient denies nausea vomiting or diarrhea. Patient denies any urinary burning or frequency. On 07/19/2018 patient was seen and examined on the medical floor she is alert and oriented 3 she is feeling anxious otherwise she denies any complaints there is no fever or chills no headache or dizziness no chest pain no shortness of breath no cough no nausea or vomiting no abdominal pain no diarrhea and no urinary symptoms, hemoglobin is down to 8.1 creatinine improving currently at 6.38 patient is off dialysis at this time On 07/20/2018 patient is alert and oriented 3 in no apparent distress, she is complaining of anxiety otherwise no complaints, lab results are improving BUN is down to 59 creatinine down to 4.74, urine culture positive for E. coli more than 100,000 colonies ESBL. Rocephin is discontinued and patient was started on ertapenem Objective - Vital Signs Vital signs: Vital Signs Temp 98.3 F 07/20/18 07:00 Pulse 79 07/20/18 07:00 Resp 16 07/20/18 07:00 BP 122/82 07/20/18 07:00 Pulse Ox 98 07/20/18 07:00 Intake & Output 07/19/18 07/20/18 07/20/18 18:59 06:59 18:59 Intake Total 520 900 Output Total 1800 3500 1000 Balance -1280 -2600 -1000 Intake: Intake, IV Titration 650 Amount Sodium Chloride 0.9% 1, 600 000 ml @ 75 mls/hr IV . [id number] [facility] Rx#:[id number] cefTRIAXone 2 gm In 50 Sodium Chloride 0.9% 50 ml @ 100 mls/hr IVPB HS [facility] Rx#:[id number] Oral 520 250 Output: Urine 1800 3500 1000 Other: Voiding Method Indwelling Catheter Indwelling Catheter Indwelling Catheter - Exam In general patient is alert and oriented 3 in no apparent distress Head normocephalic and atraumatic Neck supple no JVD no goiter Lungs clear to auscultation bilaterally no wheezing or crackles Heart regular rate and rhythm S1-S2, no rub or gallop Abdomen is soft nontender nondistended positive bowel sounds no hepatosplenomegaly Extremities no edema no cyanosis or clubbing - Labs CBC & Chem 7: 07/19/18 05:56 07/20/18 07:41 Labs: Abnormal Lab Results - Last 24 Hours (Table) 07/19/18 07/19/18 07/19/18 Range/Units 11:47 17:30 19:57 Chloride (98-107) mmol/L Carbon Dioxide (22-30) mmol/L BUN (7-17) mg/dL Creatinine (0.52-1.04) mg/dL Glucose (74-99) mg/dL POC Glucose (mg/dL) 222 H 126 H 159 H (75-99) mg/dL Calcium (8.4-10.2) mg/dL AST (14-36) U/L Albumin (3.5-5.0) g/dL 07/20/18 07/20/18 Range/Units 07:28 07:41 Chloride 113 H (98-107) mmol/L Carbon Dioxide 21 L (22-30) mmol/L BUN 59 H (7-17) mg/dL Creatinine 4.74 H (0.52-1.04) mg/dL Glucose 113 H (74-99) mg/dL POC Glucose (mg/dL) 111 H (75-99) mg/dL Calcium 7.4 L (8.4-10.2) mg/dL AST 10 L (14-36) U/L Albumin 3.0 L (3.5-5.0) g/dL Microbiology - Last 24 Hours (Table) 07/17/18 15:47 Urine Culture - Preliminary Urine,Catheterized Escherichia coli Assessment and Plan Plan: 1. Acute on chronic kidney disease with hyperkalemia secondary to obstructive uropathy. Emergent hemodialysis performed. Nephrology services have been consulted. Creatinine improving. per nephrology continue to monitor renal function and hold off on hemodialysis. Continue to assess on a day-to-day basis 2. Status post cystoscopy with left ureteral stent change per urology services. 3. Anemia likely secondary to chronic kidney disease stage stage III. We'll continue to monitor nephrology services are following 4. Urinary tract infection. Urine culture ordered. Patient on Rocephin 5. Metabolic acidosis. Resolved 6. History of CVA with poor memory 7. History of myocardial infarction 8. History of pancreatitis 9. History of chronic pain. Patient maintained on [place] 10. History of anxiety depression and panic disorder 11. Atrophic right kidney 12. Elevated blood sugars. Patient started on sliding scale insulin. Hemoglobin A1c. Patient may require medications upon discharge. DVT prophylaxis heparin. GI prophylaxis Protonix.
[2018-07-20 17:04] LABS: Glucose,Whole Blood 172 mg/dL (75-99)
[2018-07-20 20:10] LABS: Glucose,Whole Blood 144 mg/dL (75-99)
[2018-07-20] MEDS: MELATONIN 5 MG TABLET PO SCH (20:55)
[2018-07-20] MEDS: clonazePAM 0.5 MG TAB PO SCH (20:55)
[2018-07-21] MEDS: SODIUM CHLORIDE 0.9% 1,000 ML IV SCH ×2 (00:33→13:41)
[2018-07-21] MEDS: LEVOTHYROXINE 25 MCG TAB PO SCH (05:54)
[2018-07-21] MEDS: HYDROcodone/APAP 7.5-325MG 1 EACH TAB PO PRN ×3 (05:54→21:05)
[2018-07-21] MEDS: FLUoxetine HCL 20 MG CAP PO SCH (07:23)
[2018-07-21] MEDS: INSULIN ASPART (NovoLOG) 100 UNIT/ML VIAL SQ SCH ×4 (07:23→21:05)
[2018-07-21] MEDS: HEPARIN SODIUM,PORCINE 5,000 UNIT/ML 1 ML VIAL SQ SCH ×2 (07:24→20:30)
[2018-07-21] MEDS: CLOPIDOGREL 75 MG TAB PO SCH (07:24)
[2018-07-21] MEDS: ERTAPENEM 0.5 GM in SODIUM CHLORIDE 0.9% 50 ML IVPB SCH (07:24)
[2018-07-21] MEDS: PANTOPRAZOLE 40 MG TABLET PO SCH (07:24)
[2018-07-21] MEDS: SENNOSIDES 8.6 MG TAB PO SCH ×3 (07:24→20:30)
[2018-07-21 07:30] LABS: Glucose,Whole Blood 130 mg/dL (75-99)
[2018-07-21 08:47] LABS: Basophils % (A) 0 %; Eosinophils # (A) 0.2 k/uL (0-0.7); Eosinophils % (A) 3 %; HCT 27.5 % (34.0-46.0); HGB 8.5 gm/dL (11.4-16.0); Hypochromasia Moderate; Lymphocytes # (A) 1.4 k/uL (1.0-4.8); Lymphocytes % (A) 22 %; MCH 27.3 pg (25.0-35.0); Mean Platelet Volume 6.6; Monocytes # (A) 0.3 k/uL (0-1.0); Monocytes % (A) 5 %; Neutrophils # (A) 4.3 k/uL (1.3-7.7); Neutrophils % (A) 69 %; Platelet Count 175 k/uL (150-450); RBC 3.13 m/uL (3.80-5.40); RDW 15.9 % (11.5-15.5); WBC 6.3 k/uL (3.8-10.6)
[2018-07-21 08:55] LABS: Calcium 8.2 mg/dL (8.4-10.2); Magnesium 1.8 mg/dL (1.6-2.3); Potassium 4.4 mmol/L (3.5-5.1); Total Bilirubin 0.2 mg/dL (0.2-1.3); Total Protein 6.6 g/dL (6.3-8.2)
--- NOTE | 2018-07-21 11:15 | P.PN ---
Subjective Progress Note Date: 07/21/18 This is a 33-year-old patient who presented to the hospital with abnormal lab values. Patient's creatinine elevated at 17.72 and bun 198. Potassium also elevated at 6.8. Patient is currently a resident at [facility] due to previous history of stroke. Patient also was admitted back in February for similar occurrence in which was found to have hydronephrosis. Patient underwent cystoscopy and left ureteral stent placement. Patient has been noncompliant with follow-up appointments to nephrology and urology services. Patient denies any specific complaints. Patient denies any recent illness. Patient denies nausea vomiting. Did discuss with [facility] staff patient has not been feb rile. Per [facility] staff does not believe that patient had any signs of decreased urine output. Additional medical history includes CVA in which she was on life-support in 2014, myocardial infarction, anxiety, depression, panic disorder and previous EtOH. Emergent hemodialysis catheter was placed per vascular surgery. Patient received emergent hemodialysis. Creatinine improving to 9.68 and bun 110. Potassium also improved to 4.4. Patient admitted to the intensive care unit. At this time patient remains alert and oriented 3. Patient does have poor memory. Patient denies any abdominal pain. Vitals remained stable. Nephrology, critical care and urology consult placed. At this time patient denies any chest pain or shortness of breath. Patient denies nausea vomiting or diarrhea. Patient denies any urinary burning or frequency. Rosado catheter is in place. On 07/17/2018 patient has been moved out of the intensive care unit. Patient is alert and oriented 3. Patient is status post cystoscopy with left ureteral stent change per urology services. At this time patient is resting comfortably in bed. Patient denies any significant pain. Patient denies chest pain or s hortness of breath. Patient denies nausea vomiting or diarrhea. Denies any urinary burning or frequency. Rosado catheter noted to have bloody urine output continue to monito. On 07/18/2018 patient is currently resting comfortably bed. Patient is alert and oriented 3. Creatinine is continuing to trend down. hemodialysis currently on hold. Per nephrology will continue to assess on a day-to-day basis. Urine output has significantly improved. At this time patient denies chest pain or shortness of breath. Patient denies nausea vomiting or diarrhea. Patient denies any urinary burning or frequency. On 07/19/2018 patient was seen and examined on the medical floor she is alert and oriented 3 she is feeling anxious otherwise she denies any complaints there is no fever or chills no headache or dizziness no chest pain no shortness of breath no cough no nausea or vomiting no abdominal pain no diarrhea and no urinary symptoms, hemoglobin is down to 8.1 creatinine improving currently at 6.38 patient is off dialysis at this time On 07/20/2018 patient is alert and oriented 3 in no apparent distress, she is complaining of anxiety otherwise no complaints, lab results are improving BUN is down to 59 creatinine down to 4.74, urine culture positive for E. coli more than 100,000 colonies ESBL. Rocephin is discontinued and patient was started on ertapenem On 07/21/2018 patient's alert and oriented 3. Creatinine better continue to trend down. Patient remains on Invanz for antibiotic. This time patient denies any chest pain or shortness breath. Patient denies nausea vomiting or diarrhea. Patient denies any urinary burning or frequency Objective - Vital Signs Vital signs: Vital Signs Temp 98.7 F 07/21/18 05:00 Pulse 83 07/21/18 05:00 Resp 20 07/21/18 05:00 BP 115/75 07/21/18 05:00 Pulse Ox 96 07/21/18 05:00 Intake & Output 07/20/18 07/21/18 07/21/18 18:59 06:59 18:59 Intake Total 740 300 Output Total 2400 3800 Balance -1660 -3500 Intake: Oral 740 300 Output: Urine 2400 3800 Uretheral (Rosado) 2400 Other: Voiding Method Indwelling Catheter Indwelling Catheter Indwelling Catheter # Bowel Movements 1 - Exam Head normocephalic Neck supple Lungs clear to auscultation bilaterally no wheezing or crackles Heart regular rate and rhythm S1-S2, no rub or gallop Abdomen is soft nontender nondistended positive bowel sounds no hepatosplenomegaly Extremities no edema Neuro alert and orientated to 3 - Labs CBC & Chem 7: 07/21/18 07:50 07/21/18 07:50 Labs: Abnormal Lab Results - Last 24 Hours (Table) 07/20/18 07/20/18 07/20/18 Range/Units 11:21 16:54 20:00 RBC (3.80-5.40) m/uL Hgb (11.4-16.0) gm/dL Hct (34.0-46.0) % RDW (11.5-15.5) % Chloride (98-107) mmol/L Carbon Dioxide (22-30) mmol/L BUN (7-17) mg/dL Creatinine (0.52-1.04) mg/dL Glucose (74-99) mg/dL POC Glucose (mg/dL) 223 H 172 H 144 H (75-99) mg/dL Calcium (8.4-10.2) mg/dL AST (14-36) U/L ALT (9-52) U/L Albumin (3.5-5.0) g/dL 07/21/18 07/21/18 07/21/18 Range/Units 07:20 07:50 07:50 RBC 3.13 L (3.80-5.40) m/uL Hgb 8.5 L (11.4-16.0) gm/dL Hct 27.5 L (34.0-46.0) % RDW 15.9 H (11.5-15.5) % Chloride 115 H (98-107) mmol/L Carbon Dioxide 19 L (22-30) mmol/L BUN 50 H (7-17) mg/dL Creatinine 3.59 H (0.52-1.04) mg/dL Glucose 129 H (74-99) mg/dL POC Glucose (mg/dL) 130 H (75-99) mg/dL Calcium 8.2 L (8.4-10.2) mg/dL AST 12 L (14-36) U/L ALT 8 L (9-52) U/L Albumin 3.0 L (3.5-5.0) g/dL Microbiology - Last 24 Hours (Table) 07/17/18 15:47 Urine Culture - Final Urine,Catheterized Escherichia coli Proteus mirabilis Assessment and Plan Assessment: 1. Acute on chronic kidney disease with hyperkalemia secondary to obstructive uropathy. Emergent hemodialysis performed. Nephrology services have been consulted. Creatinine improving. per nephrology continue to monitor renal function and hold off on hemodialysis. Creatinine improving to 3.59 and bun 50 2. Status post cystoscopy with left ureteral stent change per urology services. 3. Anemia likely secondary to chronic kidney disease stage stage III. We'll continue to monitor nephrology services are following 4. Urinary tract infection. Urine positive for ESBL. Patient currently maintained on Invanz 5. Metabolic acidosis. Resolved 6. History of CVA with poor memory 7. History of myocardial infarction 8. History of pancreatitis 9. History of chronic pain. Patient maintained on [place] 10. History of anxiety depression and panic disorder 11. Atrophic right kidney 12. Elevated blood sugars. Patient started on sliding scale insulin. A1c 6.8 DVT prophylaxis heparin. GI prophylaxis Protonix. I performed an examination of the patient and discussed their management with the Nurse Practitioner. I have reviewed the Nurse Practitioner's notes and agree with the documented findings and plan of care
[2018-07-21 12:30] LABS: Glucose,Whole Blood 126 mg/dL (75-99)
--- NOTE | 2018-07-21 16:11 | PN ---
PROGRESS NOTE Patient is seen for followup for acute kidney injury, which is mainly obstructive uropathy. Renal function continues to improve. She is status post left ureteral stent change for left hydronephrosis. The patient has had good urine output. She denies any significant complaints. PHYSICAL EXAMINATION: This morning, blood pressure is 115/75, heart rate of 83 per minute. She is afebrile. Examination of the heart S1, S2. Examination of the lungs, bilateral breath sounds are heard. Abdomen is soft, nontender. Morbidly obese. Examination of lower extremities shows no evidence of edema. Patient not able to move her lower extremities. LAB: Show sodium 143, showed potassium 4.4, BUN 50, serum creatinine 3.59, hemoglobin 8.5 g/dL. ASSESSMENT: 1. Acute kidney injury, obstructive uropathy, currently improving, status post left ureteral stent change. 2. Right renal atrophy. 3. Chronic kidney disease with baseline creatinine as low as 1.5 mg/dL in April of 2018 secondary to obstructive uropathy and solitary functioning kidney. 4. Severe metabolic acidosis on initial admission associated with advanced renal failure, currently improving. 5. Urinary tract infection with urine culture growing Escherichia coli and Proteus. The patient is maintained on antibiotics in the form of Ertapenem. PLAN: Continue antibiotics. Encourage increased oral intake. The patient is stable for discharge from Nephrology standpoint. Needs to follow up with Urology as outpatient. MMODL / IJN: [id number] /
[2018-07-21 16:56] LABS: Glucose,Whole Blood 174 mg/dL (75-99)
[2018-07-21] MEDS: MELATONIN 5 MG TABLET PO SCH (20:30)
[2018-07-21] MEDS: clonazePAM 0.5 MG TAB PO SCH (20:30)
[2018-07-21 20:43] LABS: Glucose,Whole Blood 136 mg/dL (75-99)
[2018-07-22] MEDS: SODIUM CHLORIDE 0.9% 1,000 ML IV SCH ×2 (03:40→17:35)
[2018-07-22] MEDS: LEVOTHYROXINE 25 MCG TAB PO SCH (06:08)
[2018-07-22] MEDS: HYDROcodone/APAP 7.5-325MG 1 EACH TAB PO PRN ×2 (06:08→15:00)
[2018-07-22 07:18] LABS: Glucose,Whole Blood 118 mg/dL (75-99)
[2018-07-22] MEDS: HEPARIN SODIUM,PORCINE 5,000 UNIT/ML 1 ML VIAL SQ SCH ×2 (07:18→19:55)
[2018-07-22] MEDS: ERTAPENEM 0.5 GM in SODIUM CHLORIDE 0.9% 50 ML IVPB SCH (07:18)
[2018-07-22] MEDS: CLOPIDOGREL 75 MG TAB PO SCH (07:19)
[2018-07-22] MEDS: FLUoxetine HCL 20 MG CAP PO SCH (07:19)
[2018-07-22] MEDS: PANTOPRAZOLE 40 MG TABLET PO SCH (07:19)
[2018-07-22] MEDS: SENNOSIDES 8.6 MG TAB PO SCH ×2 (07:19→19:55)
[2018-07-22] MEDS: INSULIN ASPART (NovoLOG) 100 UNIT/ML VIAL SQ SCH ×4 (07:21→21:56)
[2018-07-22 09:40] VITALS: BMI 42.3
[2018-07-22 11:23] LABS: Anisocytosis Slight; Basophils % (A) 1 %; Eosinophils # (A) 0.2 k/uL (0-0.7); Eosinophils % (A) 4 %; HCT 26.7 % (34.0-46.0); HGB 8.4 gm/dL (11.4-16.0); Hypochromasia Marked; Lymphocytes # (A) 1.7 k/uL (1.0-4.8); Lymphocytes % (A) 29 %; MCH 27.9 pg (25.0-35.0); MCHC 31.4 g/dL (31.0-37.0); MCV 88.8 fL (80.0-100.0); Mean Platelet Volume 7.3; Monocytes # (A) 0.2 k/uL (0-1.0); Monocytes % (A) 4 %; Neutrophils # (A) 3.5 k/uL (1.3-7.7); Neutrophils % (A) 61 %; Platelet Count 146 k/uL (150-450); RBC 3.01 m/uL (3.80-5.40); WBC 5.8 k/uL (3.8-10.6)
[2018-07-22 11:49] LABS: Albumin 3.1 g/dL (3.5-5.0); Calcium 8.2 mg/dL (8.4-10.2); Potassium 4.3 mmol/L (3.5-5.1); Total Bilirubin 0.2 mg/dL (0.2-1.3); Total Protein 6.4 g/dL (6.3-8.2)
[2018-07-22 11:59] LABS: Glucose,Whole Blood 146 mg/dL (75-99)
--- NOTE | 2018-07-22 13:29 | P.DS ---
Providers Date of admission: 07/15/18 19:00 Expected date of discharge: 07/22/18 Attending physician: Roberto Knight Consults: 07/15/18 19:00 Consult Physician Urgent Consulting Provider: Ray Solano Consult Reason/Comments: Critical care management Do you want consulting provider notified?: Yes Consult Physician Urgent Consulting Provider: Donnie Felder Consult Reason/Comments: Renal failure Do you want consulting provider notified?: Yes 07/15/18 20:54 Consult Physician Stat Consulting Provider: Antonio Eason Consult Reason/Comments: Vascular access for dialysis Do you want consulting provider notified?: Yes 07/16/18 08:51 Consult Physician Urgent Consulting Provider: Gordon Rod Consult Reason/Comments: EVETTE previous history of Hydronephrosis Do you want consulting provider notified?: Yes Primary care physician: Roberto Knight [facility] Course: Discharge diagnosis 1. Acute on chronic kidney disease with hyperkalemia secondary to obstructive uropathy. Emergent hemodialysis performed. Nephrology services have been consulted. Creatinine improving. per nephrology continue to monitor renal function and hold off on hemodialysis. Creatinine improving to 3.11 and bun 40. Per nephrology services she is stable for discharge from nephrology standpoint. Patient to follow-up outpatient with urology services 2. Status post cystoscopy with left ureteral stent change per urology services. 3. Anemia likely secondary to chronic kidney disease stage stage III. We'll continue to monitor nephrology services are following 4. Urinary tract infection. Urine positive for ESBL. Patient currently maintained on Invanz. Line in place. Patient will be DC'd with Invanz for 1 week 5. Metabolic acidosis. Resolved 6. History of CVA with poor memory 7. History of myocardial infarction 8. History of pancreatitis 9. History of chronic pain. Patient maintained on [place] 10. History of anxiety depression and panic disorder 11. Atrophic right kidney 12. Elevated blood sugars. Patient started on sliding scale insulin. A1c 6.8 Hospital course This is a 33-year-old patient who presented to the hospital with abnormal lab values. Patient's creatinine elevated at 17.72 and bun 198. Potassium also elevated at 6.8. Patient is currently a resident at [facility] due to previous history of stroke. Patient also was admitted back in February for similar occurrence in which was found to have hydronephrosis. Patient underwent cystoscopy and left ureteral stent placement. Patient has been noncompliant with follow-up appointments to nephrology and urology services. Patient denies any specific complaints. Patient denies any recent illness. Patient denies nausea vomiting. Did discuss with senior living staff patient has not been febrile. Per senior living staff does not believe that patient had any signs of decreased urine output. Additional medical history includes CVA in which she was on life-support in 2014, myocardial infarction, anxiety, depression, panic disorder and previous EtOH. Emergent hemodialysis catheter was placed per vascular surgery. Patient received emergent hemodialysis. Creatinine improving to 9.68 and bun 110. Potassium also improved to 4.4. Patient admitted to the intensive care unit. At this time patient remains alert and oriented 3. Patient does have poor memory. Patient denies any abdominal pain. Vitals remained stable. Nephrology, critical care and urology consult placed. At this time patient denies any chest pain or shortness of breath. Patient denies nausea vomiting or diarrhea. Patient denies any urinary burning or frequency. Rosado catheter is in place. On 07/17/2018 patient has been moved out of the intensive care unit. Patient is alert and oriented 3. Patient is status post cystoscopy with left ureteral stent change per urology services. At this time patient is resting comfortably in bed. Patient denies any significant pain. Patient denies chest pain or shortness of breath. Patient denies nausea vomiting or diarrhea. Denies any urinary burning or frequency. Rosado catheter noted to have bloody urine output continue to monito. On 07/18/2018 patient is currently resting comfortably bed. Patient is alert and oriented 3. Creatinine is continuing to trend down. hemodialysis currently on hold. Per nephrology will continue to assess on a day-to-day basis. Urine output has significantly improved. At this time patient denies chest pain or shortness of breath. Patient denies nausea vomiting or diarrhea. Patient denies any urinary burning or frequency. On 07/19/2018 patient was seen and examined on the medical floor she is alert and oriented 3 she is feeling anxious otherwise she denies any complaints there is no fever or chills no headache or dizziness no chest pain no shortness of breath no cough no nausea or vomiting no abdominal pain no diarrhea and no urinary symptoms, hemoglobin is down to 8.1 creatinine improving currently at 6.38 patient is off dialysis at this time On 07/20/2018 patient is alert and oriented 3 in no apparent distress, she is complaining of anxiety otherwise no complaints, lab results are improving BUN is down to 59 creatinine down to 4.74, urine culture positive for E. coli more than 100,000 colonies ESBL. Rocephin is discontinued and patient was started on ertapenem On 07/21/2018 patient's alert and oriented 3. Creatinine better continue to trend down. Patient remains on Invanz for antibiotic. This time patient denies any chest pain or shortness breath. Patient denies nausea vomiting or diarrhea. Patient denies any urinary burning or frequency On 07/22/2018 patient's alert and oriented 3. Creatinine continued to trend down. Patient has been cleared for discharge from nephrology standpoint. Rosado catheter has been removed. Dr. Eason to remove hemodialysis catheter prior to discharge. Patient will be discharged on Invanz for [address] in [address]. Patient returning to [facility] in which she resides. CMP to be drawn on 07/23/2018. Patient to follow-up outpatient with urology services. At this time patient denies chest pain or shortness of breath. Patient denies nausea vomiting or diarrhea. Patient denies any urinary burning or frequency I performed an examination of the patient and discussed their management with the Nurse Practitioner. I have reviewed the Nurse Practitioner's notes and agree with the documented findings and plan of care Patient Condition at Discharge: Stable Plan - Discharge Summary New Discharge Prescriptions: New Ertapenem [INVanz] 0.5 gm IVPB DAILY 7 Days #7 vial Continue Magnesium Hydroxide [Milk of Magnesia] 2,400 mg PO Q72H PRN PRN Reason: Constipation Melatonin 5 mg PO HS Sennosides [Senokot] 8.6 mg PO BID FLUoxetine HCL [PROzac] 20 mg PO DAILY Multivitamins, Thera [Multivitamin (formulary)] 1 tab PO DAILY Levothyroxine Sodium [Synthroid] 25 mcg PO DAILY Ergocalciferol (Vitamin D2) [Drisdol] 50,000 unit PO Q30D Clopidogrel [Plavix] 75 mg PO DAILY Acetaminophen Tab [Tylenol] 650 mg PO Q6H PRN PRN Reason: Pain Magnesium Oxide [Mag-Ox] 400 mg PO BID@0800,1600 clonazePAM [KlonoPIN] 0.5 mg PO HS 14 Days #14 tablet HYDROcodone/APAP 7.5-325MG [[place] 7.5-325] 1 tab PO Q8H PRN 14 Days #42 tab PRN Reason: Pain Discharge Medication List Acetaminophen Tab [Tylenol] 650 mg PO Q6H PRN 02/15/18 [History] Clopidogrel [Plavix] 75 mg PO DAILY 02/15/18 [History] Ergocalciferol (Vitamin D2) [Drisdol] 50,000 unit PO Q30D 02/15/18 [History] FLUoxetine HCL [PROzac] 20 mg PO DAILY 02/15/18 [History] Levothyroxine Sodium [Synthroid] 25 mcg PO DAILY 02/15/18 [History] Magnesium Hydroxide [Milk of Magnesia] 2,400 mg PO Q72H PRN 02/15/18 [History] Melatonin 5 mg PO HS 02/15/18 [History] Multivitamins, Thera [Multivitamin (formulary)] 1 tab PO DAILY 02/15/18 [History] Sennosides [Senokot] 8.6 mg PO BID 02/15/18 [History] Magnesium Oxide [Mag-Ox] 400 mg PO BID@0800,1600 07/15/18 [History] Ertapenem [INVanz] 0.5 gm IVPB DAILY 7 Days #7 vial 07/22/18 [Rx] HYDROcodone/APAP 7.5-325MG [[place] 7.5-325] 1 tab PO Q8H PRN 14 Days #42 tab 07/22/18 [Rx] clonazePAM [KlonoPIN] 0.5 mg PO HS 14 Days #14 tablet 07/22/18 [Rx] Follow up Appointment(s)/Referral(s): Mac Charles MD [STAFF PHYSICIAN] - 1 Week Roberto Knight MD [Primary Care Provider] - 1-2 days Melony Overton MD [STAFF PHYSICIAN] - 1 Week Activity/Diet/Wound Care/Special Instructions: CMP and CBC within 2 days of arrival been a [place] CMP weekly Activity as tolerated Diet renal low potassium and low phosphorus Discharge Disposition: TRANSFER TO SNF/ECF
[2018-07-22 14:46] VITALS: RESP 16
--- NOTE | 2018-07-22 16:44 | PN ---
PROGRESS NOTE Patient is seen for followup for acute kidney injury obstructive uropathy. She is status post left ureteral stent change and her creatinine continues to improve. Patient denies any significant complaints. She is maintained on IV fluids, which can be discontinued, as she has had good oral intake. On examination this morning, blood pressure is 106/67, heart rate 70 per minute. She is afebrile. LOWER EXTREMITIES: Examination shows no evidence of edema in bilateral lower extremities. ABDOMEN: Soft, nontender. HEART: Heart sounds are heard. LUNGS: No crackles or wheezing. 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 She has some wasting in the legs. Strength in upper extremities is normal. Labs show sodium 142, potassium 4.3, chloride 114, CO2 is 19, BUN 40, creatinine 3.11, hemoglobin 8.4 g/dL. ASSESSMENT: 1. Acute kidney injury, obstructive uropathy; continues to improve. 2. Urinary tract infection with Escherichia coli, maintained on antibiotics. 3. Severe metabolic acidosis on initial admission, currently improved. 4. Right renal atrophy. PLAN: Follow up with Urology. Discontinue IV fluids. Patient is stable for discharge from nephrology standpoint. MMODL / IJN: [id number] /
[2018-07-22 17:14] LABS: Glucose,Whole Blood 164 mg/dL (75-99)
[2018-07-22] MEDS: MELATONIN 5 MG TABLET PO SCH (19:55)
[2018-07-22] MEDS: clonazePAM 0.5 MG TAB PO SCH (19:55)
[2018-07-22 20:45] LABS: Glucose,Whole Blood 160 mg/dL (75-99)
[2018-07-23] MEDS: LEVOTHYROXINE 25 MCG TAB PO SCH (05:01)
[2018-07-23] MEDS: HYDROcodone/APAP 7.5-325MG 1 EACH TAB PO PRN (05:02)
[2018-07-23 06:20] VITALS: BP 103/56; PULSE 79; TEMP 97.5
[2018-07-23 07:23] LABS: Glucose,Whole Blood 130 mg/dL (75-99)
[2018-07-23] MEDS: PANTOPRAZOLE 40 MG TABLET PO SCH (07:28)
[2018-07-23] MEDS: FLUoxetine HCL 20 MG CAP PO SCH (07:28)
[2018-07-23] MEDS: CLOPIDOGREL 75 MG TAB PO SCH (07:28)
[2018-07-23] MEDS: SENNOSIDES 8.6 MG TAB PO SCH (07:28)
[2018-07-23] MEDS: ERTAPENEM 0.5 GM in SODIUM CHLORIDE 0.9% 50 ML IVPB SCH (07:29)
[2018-07-23] MEDS: INSULIN ASPART (NovoLOG) 100 UNIT/ML VIAL SQ SCH (07:29)
[2018-07-23] MEDS: HEPARIN SODIUM,PORCINE 5,000 UNIT/ML 1 ML VIAL SQ SCH (07:29)
[2018-07-23] MEDS: SODIUM CHLORIDE 0.9% 1,000 ML IV SCH (07:30)
[2018-07-23 10:09] LABS: Anisocytosis Slight; Basophils % (A) 0 %; Eosinophils # (A) 0.2 k/uL (0-0.7); Eosinophils % (A) 4 %; HGB 7.9 gm/dL (11.4-16.0); Hypochromasia Moderate; Lymphocytes # (A) 1.5 k/uL (1.0-4.8); Lymphocytes % (A) 28 %; MCH 27.5 pg (25.0-35.0); MCHC 30.6 g/dL (31.0-37.0); Mean Platelet Volume 7.3; Monocytes # (A) 0.2 k/uL (0-1.0); Monocytes % (A) 4 %; Neutrophils # (A) 3.3 k/uL (1.3-7.7); Neutrophils % (A) 62 %; Platelet Count 139 k/uL (150-450); RBC 2.89 m/uL (3.80-5.40); WBC 5.4 k/uL (3.8-10.6)
[2018-07-23 10:20] LABS: Albumin 3.1 g/dL (3.5-5.0); Calcium 8.2 mg/dL (8.4-10.2); Potassium 4.5 mmol/L (3.5-5.1); Total Bilirubin 0.4 mg/dL (0.2-1.3); Total Protein 6.3 g/dL (6.3-8.2)
[2018-07-23] MEDS ORDERED: SODIUM FERRIC GLUCONAT-SUCROSE 125 MG in SODIUM CHLORIDE 0.9% 100 ML IVPB ONE (11:00)
== END 2018-07-23 11:28 | DRG 660 ==
LOC: EC 15:00 → 2SICU 19:00 → 4MS4W 07-17 10:38 → 4SSUR 07-18 14:32 → 4MS4W 07-20 07:05
PROVIDERS: ADMIT Internal Medicine; ATTEND Internal Medicine
PROC: 06HM33Z Insertion of Infusion Device into Right Femoral Vein, Percutaneous Approach (ICD-10-PCS; 2018-07-15)
PROC: 5A1D70Z Performance of Urinary Filtration, Intermittent, Less than 6 Hours Per Day (ICD-10-PCS; 2018-07-15)
PROC: 0T778DZ Dilation of Left Ureter with Intraluminal Device, Via Natural or Artificial Opening Endoscopic (ICD-10-PCS; 2018-07-17)
PROC: 0TP98DZ Removal of Intraluminal Device from Ureter, Via Natural or Artificial Opening Endoscopic (ICD-10-PCS; principal; 2018-07-17 12:00)
DX: N17.9 Acute kidney failure, unspecified (principal); Z68.41 Body mass index [BMI] 40.0-44.9, adult; E87.2 Acidosis; B96.20 Unspecified Escherichia coli [E. coli] as the cause of diseases classified elsewhere; D63.1 Anemia in chronic kidney disease; E03.9 Hypothyroidism, unspecified; E66.01 Morbid (severe) obesity due to excess calories; E83.39 Other disorders of phosphorus metabolism; E87.5 Hyperkalemia; E88.09 Other disorders of plasma-protein metabolism, not elsewhere classified; F32.9 Major depressive disorder, single episode, unspecified; F41.0 Panic disorder [episodic paroxysmal anxiety]; I25.2 Old myocardial infarction; N13.6 Pyonephrosis; N18.3 Chronic kidney disease, stage 3 (moderate); N26.1 Atrophy of kidney (terminal); Z74.01 Bed confinement status; Z79.02 Long term (current) use of antithrombotics/antiplatelets; Z79.890 Hormone replacement therapy; Z79.899 Other long term (current) drug therapy; Z80.1 Family history of malignant neoplasm of trachea, bronchus and lung; Z86.73 Personal history of transient ischemic attack (TIA), and cerebral infarction without residual deficits; Z87.440 Personal history of urinary (tract) infections; Z87.442 Personal history of urinary calculi; Z87.891 Personal history of nicotine dependence; Z90.49 Acquired absence of other specified parts of digestive tract; Z91.19 Patient's noncompliance with other medical treatment and regimen; Z79.891 Long term (current) use of opiate analgesic; Z88.6 Allergy status to analgesic agent; Z88.8 Allergy status to other drugs, medicaments and biological substances; G89.29 Other chronic pain; R73.9 Hyperglycemia, unspecified; Z16.12 Extended spectrum beta lactamase (ESBL) resistance
CPT/HCPCS: 36410; 36415; 51702; 71045; 71046; 74176; 76937; 80048; 80053; 81001; 81025; 82728; 83036; 83540; 83550; 83605; 83735; 84100; 84132; 84484; 84703; 85025; 85610; 85730; 86704; 86705; 86706; 87077; 87086; 87186; 87340; 87517; 93005; 96361; 96365; 96367; 96375; 96376; 99291

== ENCOUNTER 2018-12-18 13:53 | Inpatient (IN) | payer OTHER ==
[2018-12-18] MEDS ORDERED: SODIUM CHLORIDE 0.9% 500 ML 500 ML IV STA (14:40)
--- NOTE | 2018-12-18 14:46 | ED ---
Recheck HPI - General Chief Complaint: Recheck/Abnormal Lab/Rx Stated Complaint: Abnormal Labs Time Seen by Provider: 12/18/18 14:00 Source: patient, EMS Mode of arrival: EMS Limitations: physical limitation - History of Present Illness Initial Comments: Patient is a 33-year-old female presenting to emergency Department via EMS due to abnormal labs. Patient's physician is Dr. Knihgt and told her to come in because of her renal function. Patient currently lives at [facility]. Patient has chronic renal failure which has gotten worse in the last week. Patient is not currently on dialysis. She has some mild low back pain and took a [place] prior to arriving to the ER today and states her back feels better. Patient has no other complaints right now. Patient denies fever, chills, chest pain, shortness of breath, abdominal pain, vomiting, diarrhea, urinary complaints. Upon arrival to the ER, vital signs are stable. - Related Data Home Medications Medication Instructions Recorded Confirmed Clopidogrel [Plavix] 75 mg PO DAILY 02/15/18 12/18/18 Ergocalciferol (Vitamin D2) 50,000 unit PO Q30D 02/15/18 12/18/18 [Drisdol] FLUoxetine HCL [PROzac] 20 mg PO DAILY 02/15/18 12/18/18 Levothyroxine Sodium [Synthroid] 25 mcg PO DAILY 02/15/18 12/18/18 Melatonin 5 mg PO HS 02/15/18 12/18/18 Multivitamins, Thera [Multivitamin 1 tab PO DAILY 02/15/18 12/18/18 (formulary)] Sennosides [Senokot] 8.6 mg PO BID 02/15/18 12/18/18 Magnesium Oxide [Mag-Ox] 400 mg PO BID 07/15/18 12/18/18 Acetaminophen Tab [Tylenol Tab] 650 mg PO Q6H PRN 09/03/18 12/18/18 HYDROcodone/APAP 7.5-325MG [[place] 1 tab PO Q8HR PRN 09/03/18 12/18/18 7.5-325] Magnesium Hydroxide [Milk of 30 ml PO DAILY PRN 09/03/18 12/18/18 Magnesia] Miconazole Nitrate [Miconazole 1 applic TOPICAL BID PRN 09/03/18 12/18/18 Nitrate 2%] Polyethylene Glycol 3350 [Miralax] 17 gm PO DAILY PRN 09/03/18 12/18/18 Potassium Citrate [Urocit-K] 15 meq PO TID@0800,1200,1800 09/22/18 12/18/18 clonazePAM [KlonoPIN] 0.5 mg PO HS@2100 12/18/18 12/18/18 guaiFENesin [guaiFENesin Oral 200 mg PO Q6H PRN 12/18/18 12/18/18 Solution] Allergies Allergy/AdvReac Type Severity Reaction Status Date / Time aspirin Allergy Unknown Verified 12/18/18 18:26 ibuprofen [From Motrin] Allergy Unknown Verified 12/18/18 18:26 sertraline HCl [From Zoloft] Allergy Unknown Verified 12/18/18 18:26 zolpidem tartrate Allergy Unknown Verified 12/18/18 18:26 [From Ambien] gabapentin [From Neurontin] AdvReac Severe SEVERE Verified 12/18/18 18:26 AGITATION Review of Systems ROS Statement: Those systems with pertinent positive or pertinent negative responses have been documented in the HPI. ROS Other: All systems not noted in ROS Statement are negative. Past Medical History Past Medical History: CVA/TIA, Myocardial Infarction ([place]) Additional Past Medical History / Comment(s): morbid obesity, pancreatitis, history of coma - 10/24/14 - until end december after suffering from a stroke. Last Myocardial Infarction Date:: 10/2014 History of Any Multi-Drug Resistant Organisms: ESBL Date of last positivie culture/infection: 09/05/18 ESBL E.coli MDRO Source:: Urine Past Surgical History: Cholecystectomy Additional Past Surgical History / Comment(s): Cystoscopy with placement of left double-J catheter 02/16/2018 Past Anesthesia/Blood Transfusion Reactions: No Reported Reaction Past Psychological History: Anxiety, Depression, Panic Disorder Smoking Status: Never smoker Past Alcohol Use History: Heavy Past Drug Use History: None Reported - Past Family History Father History Unknown: Yes Family Medical History: Cancer Additional Family Medical History / Comment(s): lung General Exam - General Exam Comments Initial Comments: GENERAL: Well-appearing, well-nourished and in no acute distress. Obese. HEAD: Atraumatic, normocephalic. EYES: Pupils equal round and reactive to light, extraocular movements intact, sclera anicteric, conjunctiva are normal. ENT: Nares patent, oropharynx clear without exudates. Moist mucous membranes. NECK: Normal range of motion, supple without lymphadenopathy or JVD. LUNGS: Breath sounds clear to auscultation bilaterally and equal. No wheezes rales or rhonchi. HEART: Regular rate and rhythm without murmurs, rubs or gallops. ABDOMEN: Soft, nontender, normoactive bowel sounds. No guarding, no rebound. No masses appreciated. EXTREMITIES: Patient has a brace on left hand as well as left ankle. No pitting or edema. No clubbing or cyanosis. NEUROLOGICAL: Cranial nerves II through XII grossly intact. Normal speech PSYCH: Normal mood, normal affect. SKIN: Warm, Dry, normal turgor, no rashes or lesions noted. Limitations: physical limitation Course Vital Signs 12/18/18 12/18/18 12/18/18 13:59 16:00 18:00 Temperature 98.7 F Pulse Rate 87 88 91 Respiratory 18 16 16 Rate Blood Pressure 119/76 121/75 125/80 O2 Sat by Pulse 98 98 98 Oximetry Medical Decision Making - Medical Decision Making Patient is a 33-year-old female presenting with acute on chronic renal failure. Patient was sent to ER by Dr. Knight. Patient currently has no complaints. Patient's vital signs are stable. Exam is unremarkable. Labs reveal hemoglobin 9.3, potassium 5.4, BUN/creatinine are 51/4.26. This is slightly elevated from her norm. Glucose is normal. UA shows 2+ protein, trace glucose trace blood, large amount of wbc's. Urine culture is pending at this time. Patient will be started on fluids and antibiotic for UTI. Patient will be admitted for acute on chronic renal failure. Case is discussed with Dr. Gustafson who spoke with Dr. Knight and he will be accepting. Patient is agreement with this plan of care. - Lab Data Result diagrams: 12/18/18 15:00 12/18/18 15:00 Lab Results 12/18/18 12/18/18 12/18/18 Range/Units 15:00 15:00 15:53 WBC 7.0 (3.8-10.6) k/uL RBC 3.44 L (3.80-5.40) m/uL Hgb 9.3 L D (11.4-16.0) gm/dL Hct 29.4 L (34.0-46.0) % MCV 85.4 D (80.0-100.0) fL MCH 27.0 (25.0-35.0) pg MCHC 31.7 (31.0-37.0) g/dL RDW 14.1 (11.5-15.5) % Plt Count 310 (150-450) k/uL Neutrophils % 73 % Lymphocytes % 17 % Monocytes % 6 % Eosinophils % 2 % Basophils % 0 % Neutrophils # 5.1 (1.3-7.7) k/uL Lymphocytes # 1.2 (1.0-4.8) k/uL Monocytes # 0.5 (0-1.0) k/uL Eosinophils # 0.2 (0-0.7) k/uL Basophils # 0.0 (0-0.2) k/uL Hypochromasia Moderate Sodium 139 (137-145) mmol/L Potassium 5.4 H (3.5-5.1) mmol/L Chloride 103 (98-107) mmol/L Carbon Dioxide 27 (22-30) mmol/L Anion Gap 9 mmol/L BUN 51 H (7-17) mg/dL Creatinine 4.26 H (0.52-1.04) mg/dL Est GFR (CKD-EPI)AfAm 15 (>60 ml/min/1.73 sqM) Est GFR (CKD-EPI)NonAf 13 (>60 ml/min/1.73 sqM) Glucose 116 H (74-99) mg/dL Calcium 8.4 (8.4-10.2) mg/dL Total Bilirubin 0.2 (0.2-1.3) mg/dL AST 10 L (14-36) U/L ALT 6 L (9-52) U/L Alkaline Phosphatase 73 (38-126) U/L Total Protein 7.2 (6.3-8.2) g/dL Albumin 3.5 (3.5-5.0) g/dL Urine Color Light Yellow Urine Appearance Cloudy H (Clear) Urine pH 8.0 (5.0-8.0) Ur Specific [place] 1.009 (1.001-1.035) Urine Protein 2+ H (Negative) Urine Glucose (UA) Trace H (Negative) Urine Ketones Negative (Negative) Urine Blood Trace H (Negative) Urine Nitrite Negative (Negative) Urine Bilirubin Negative (Negative) Urine Urobilinogen <2.0 (<2.0) mg/dL Ur Leukocyte Esterase Large H (Negative) Urine RBC 3 (0-5) /hpf Urine WBC 163 H (0-5) /hpf Urine WBC Clumps Few H (None) /hpf Ur Squamous Epith Cells 1 (0-4) /hpf Urine Bacteria Rare H (None) /hpf Disposition Clinical Impression: Acute renal failure, Hyperkalemia, UTI (urinary tract infection) Disposition: ADMITTED IP TO THIS HOSP Is patient prescribed a controlled substance at d/c from ED?: No Decision Date: 12/18/18 Decision Time: 17:21
[2018-12-18 15:28] LABS: Albumin 3.5 g/dL (3.5-5.0); Basophils % (A) 0 %; Calcium 8.4 mg/dL (8.4-10.2); Eosinophils # (A) 0.2 k/uL (0-0.7); Eosinophils % (A) 2 %; HCT 29.4 % (34.0-46.0); Hypochromasia Moderate; Lymphocytes # (A) 1.2 k/uL (1.0-4.8); Lymphocytes % (A) 17 %; MCHC 31.7 g/dL (31.0-37.0); Mean Platelet Volume 5.4; Monocytes # (A) 0.5 k/uL (0-1.0); Monocytes % (A) 6 %; Neutrophils # (A) 5.1 k/uL (1.3-7.7); Neutrophils % (A) 73 %; Platelet Count 310 k/uL (150-450); Potassium 5.4 mmol/L (3.5-5.1); RBC 3.44 m/uL (3.80-5.40); RDW 14.1 % (11.5-15.5); Total Bilirubin 0.2 mg/dL (0.2-1.3); Total Protein 7.2 g/dL (6.3-8.2)
[2018-12-18 15:33] LABS: HGB 9.3 gm/dL (11.4-16.0); MCV 85.4 fL (80.0-100.0)
[2018-12-18 16:09] LABS: Appearance,Urine Cloudy (Clear); Bacteria,Urine Rare /hpf; Bilirubin,Urine Negative (Negative); Blood,Urine Trace (Negative); Color,Urine Light Yellow; Glucose,Urine (UA) Trace (Negative); Ketones,Urine Negative (Negative); Leukocyte Esterase,Urine Large (Negative); Nitrite,Urine Negative (Negative); Protein,Urine 2+ (Negative); RBC,Urine 3 /hpf (0-5); Specific Gravity,Urine 1.009 (1.001-1.035); Squamous Epithelial Cell,Urine 1 /hpf (0-4); Urobilinogen,Urine <2.0 mg/dL (<2.0)
[2018-12-18] MEDS ORDERED: NALOXONE 0.4 MG/ML 1 ML VIAL IV PRN (17:21)
[2018-12-18] MEDS ORDERED: HYDROcodone/APAP 5-325MG 1 EACH TAB PO PRN (17:21)
[2018-12-18] MEDS: SODIUM CHLORIDE 0.9% 1,000 ML IV SCH (19:48)
[2018-12-18] MEDS ORDERED: MICONAZOLE NITRATE 2% CREAM 14 GM TUBE TOPICAL PRN (21:06)
[2018-12-18] MEDS ORDERED: ACETAMINOPHEN TAB 325 MG TAB PO PRN (21:06)
[2018-12-18] MEDS ORDERED: guaiFENesin SYRUP 100MG/5ML 200 MG/10 ML CUP PO PRN (21:06)
[2018-12-18] MEDS ORDERED: MAGNESIUM HYDROXIDE 2,400 MG/10 ML CUP PO PRN (21:06)
[2018-12-18] MEDS ORDERED: POLYETHYLENE GLYCOL 3350 17 GM POWD.PACK PO PRN (21:06)
[2018-12-18] MEDS: MELATONIN 5 MG TABLET PO SCH (21:25)
[2018-12-18] MEDS: clonazePAM 0.5 MG TAB PO SCH (21:25)
[2018-12-19] MEDS: HYDROcodone/APAP 7.5-325MG 1 EACH TAB PO PRN ×4 (01:46→23:20)
[2018-12-19] MEDS: LEVOTHYROXINE 25 MCG TAB PO SCH (05:59)
[2018-12-19 07:53] LABS: Basophils % (A) 0 %; Eosinophils # (A) 0.1 k/uL (0-0.7); Eosinophils % (A) 2 %; HCT 28.6 % (34.0-46.0); HGB 8.8 gm/dL (11.4-16.0); Hypochromasia Marked; Lymphocytes # (A) 1.5 k/uL (1.0-4.8); Lymphocytes % (A) 23 %; MCH 26.6 pg (25.0-35.0); MCHC 30.8 g/dL (31.0-37.0); MCV 86.4 fL (80.0-100.0); Mean Platelet Volume 5.6; Monocytes # (A) 0.4 k/uL (0-1.0); Monocytes % (A) 6 %; Neutrophils # (A) 4.3 k/uL (1.3-7.7); Neutrophils % (A) 66 %; Platelet Count 282 k/uL (150-450); RBC 3.31 m/uL (3.80-5.40); WBC 6.5 k/uL (3.8-10.6)
[2018-12-19 08:02] LABS: Magnesium 3.2 mg/dL (1.6-2.3); Potassium 5.2 mmol/L (3.5-5.1)
[2018-12-19] MEDS: SENNOSIDES 8.6 MG TAB PO SCH ×2 (08:37→20:25)
[2018-12-19] MEDS: MULTIVITAMINS, THERA 1 EACH TAB PO SCH (08:39)
[2018-12-19] MEDS: CLOPIDOGREL 75 MG TAB PO SCH (08:39)
[2018-12-19] MEDS: FLUoxetine HCL 20 MG CAP PO SCH (08:39)
[2018-12-19 08:45] LABS: Albumin 3.2 g/dL (3.5-5.0); Calcium 8.3 mg/dL (8.4-10.2); Potassium 5.2 mmol/L (3.5-5.1); Total Bilirubin 0.3 mg/dL (0.2-1.3)
--- NOTE | 2018-12-19 10:39 | P.HPIM ---
History of Present Illness H&P Date: 12/19/18 This is a 33-year-old female patient well-known to my services presented to the ER with abnormal kidney enzymes. Patient's creatinine at arrival 4.26 bun 51. Patient has known past medical history of chronic kidney disease secondary to obstructive uropathy with frequent acute episodes. Patient has also history of left ureteral stent placement and atrophic right kidney. Patient reports that she has been feeling well with no complaints. Patient reports that she has been urinating regularly. Patient denies any burning with urination. Patient denies any nausea vomiting or diarrhea. Patient denies any fevers. UA positive for urinary tract infection. Urine culture ordered patient started on Rocephin. Additional medical history includes CVA, myocardial infarction, pancreatitis, chronic pain, anemia of chronic disease, anxiety and depression. At this time urology and nephrology service is consulted. Patient maintained on normal saline at 60. Creatinine is trending down. Patient denies chest pain or shortness of breath. Patient denies nausea vomiting or diarrhea. Patient de nies any urinary burning or frequency Review of Systems Please refer to HPI otherwise unremarkable Past Medical History Past Medical History: CVA/TIA, Myocardial Infarction ([place]) Additional Past Medical History / Comment(s): morbid obesity, pancreatitis, history of coma - 10/24/14 - until end of december after suffering from a stroke. Last Myocardial Infarction Date:: 10/2014 History of Any Multi-Drug Resistant Organisms: ESBL Date of last positivie culture/infection: 09/05/18 ESBL E.coli MDRO Source:: Urine Past Surgical History: Cholecystectomy Additional Past Surgical History / Comment(s): Cystoscopy with placement of left double-J catheter 02/16/2018 Past Anesthesia/Blood Transfusion Reactions: No Reported Reaction Past Psychological History: Anxiety, Depression, Panic Disorder Smoking Status: Never smoker Past Alcohol Use History: Heavy Past Drug Use History: None Reported - Past Family History Father History Unknown: Yes Family Medical History: Cancer Additional Family Medical History / Comment(s): lung Medications and Allergies Home Medications Medication Instructions Recorded Confirmed Type Clopidogrel [Plavix] 75 mg PO DAILY 02/15/18 12/18/18 History Ergocalciferol (Vitamin D2) 50,000 unit PO Q30D 02/15/18 12/18/18 History [Drisdol] FLUoxetine HCL [PROzac] 20 mg PO DAILY 02/15/18 12/18/18 History Levothyroxine Sodium [Synthroid] 25 mcg PO DAILY 02/15/18 12/18/18 History Melatonin 5 mg PO HS 02/15/18 12/18/18 History Multivitamins, Thera [Multivitamin 1 tab PO DAILY 02/15/18 12/18/18 History (formulary)] Sennosides [Senokot] 8.6 mg PO BID 02/15/18 12/18/18 History Magnesium Oxide [Mag-Ox] 400 mg PO BID 07/15/18 12/18/18 History Acetaminophen Tab [Tylenol Tab] 650 mg PO Q6H PRN 09/03/18 12/18/18 History HYDROcodone/APAP 7.5-325MG [[place] 1 tab PO Q8HR PRN 09/03/18 12/18/18 History 7.5-325] Magnesium Hydroxide [Milk of 30 ml PO DAILY PRN 09/03/18 12/18/18 History Magnesia] Miconazole Nitrate [Miconazole 1 applic TOPICAL BID PRN 09/03/18 12/18/18 History Nitrate 2%] Polyethylene Glycol 3350 [Miralax] 17 gm PO DAILY PRN 09/03/18 12/18/18 History Potassium Citrate [Urocit-K] 15 meq PO TID@0800,1200,1800 09/22/18 12/18/18 History clonazePAM [KlonoPIN] 0.5 mg PO HS@2100 12/18/18 12/18/18 History guaiFENesin [guaiFENesin Oral 200 mg PO Q6H PRN 12/18/18 12/18/18 History Solution] Allergies Allergy/AdvReac Type Severity Reaction Status Date / Time aspirin Allergy Unknown Verified 12/18/18 18:26 ibuprofen [From Motrin] Allergy Unknown Verified 12/18/18 18:26 sertraline HCl [From Zoloft] Allergy Unknown Verified 12/18/18 18:26 zolpidem tartrate Allergy Unknown Verified 12/18/18 18:26 [From Ambien] gabapentin [From Neurontin] AdvReac Severe SEVERE Verified 12/18/18 18:26 AGITATION Physical Exam Vitals: Vital Signs Temp Pulse Pulse Resp BP BP Pulse Ox 12/19/18 07:00 98.6 F 80 17 116/76 80 L 12/19/18 01:14 98.4 F 92 15 118/70 95 12/18/18 19:40 98.8 F 97 14 121/84 98 12/18/18 18:00 91 16 125/80 98 12/18/18 16:00 88 16 121/75 98 12/18/18 13:59 98.7 F 87 18 119/76 98 Intake and Output 12/18/18 12/19/18 12/19/18 22:59 06:59 14:59 Intake Total 180 750 Balance 180 750 Intake: Intake, IV Titration 180 600 Amount Sodium Chloride 0.9% 1, 180 600 000 ml @ 60 mls/hr IV . [id number] [facility] Rx#:[id number] Oral 150 Other: Voiding Method Diaper Diaper Incontinent Incontinent # Voids 1 1 Head normocephalic Neck supple Lungs clear to auscultation bilaterally no wheezing or crackles Heart regular rate and rhythm S1-S2, no rub or gallop Abdomen is soft nontender nondistended positive bowel sounds no hepatosplenomeg corrie Extremities no edema. Patient flaccid to bilateral lower extremities. Neuro alert and orientated to 3 Results CBC & Chem 7: 12/19/18 06:37 12/19/18 06:37 Labs: Abnormal Lab Results - Last 24 Hours (Table) 12/18/18 12/18/18 12/18/18 Range/Units 15:00 15:00 15:53 RBC 3.44 L (3.80-5.40) m/uL Hgb 9.3 L D (11.4-16.0) gm/dL Hct 29.4 L (34.0-46.0) % MCHC (31.0-37.0) g/dL Potassium 5.4 H (3.5-5.1) mmol/L BUN 51 H (7-17) mg/dL Creatinine 4.26 H (0.52-1.04) mg/dL Glucose 116 H (74-99) mg/dL Calcium (8.4-10.2) mg/dL Magnesium (1.6-2.3) mg/dL AST 10 L (14-36) U/L ALT 6 L (9-52) U/L Albumin (3.5-5.0) g/dL Urine Appearance Cloudy H (Clear) Urine Protein 2+ H (Negative) Urine Glucose (UA) Trace H (Negative) Urine Blood Trace H (Negative) Ur Leukocyte Esterase Large H (Negative) Urine WBC 163 H (0-5) /hpf Urine WBC Clumps Few H (None) /hpf Urine Bacteria Rare H (None) /hpf 12/19/18 12/19/18 12/19/18 Range/Units 06:37 06:37 06:37 RBC 3.31 L (3.80-5.40) m/uL Hgb 8.8 L (11.4-16.0) gm/dL Hct 28.6 L (34.0-46.0) % MCHC 30.8 L (31.0-37.0) g/dL Potassium 5.2 H 5.2 H (3.5-5.1) mmol/L BUN 49 H (7-17) mg/dL Creatinine 4.10 H (0.52-1.04) mg/dL Glucose 114 H (74-99) mg/dL Calcium 8.3 L (8.4-10.2) mg/dL Magnesium 3.2 H (1.6-2.3) mg/dL AST 12 L (14-36) U/L ALT (9-52) U/L Albumin 3.2 L (3.5-5.0) g/dL Urine Appearance (Clear) Urine Protein (Negative) Urine Glucose (UA) (Negative) Urine Blood (Negative) Ur Leukocyte Esterase (Negative) Urine WBC (0-5) /hpf Urine WBC Clumps (None) /hpf Urine Bacteria (None) /hpf Microbiology - Last 24 Hours (Table) 12/18/18 15:53 Urine Culture - Preliminary Urine,Voided Thrombosis Risk Factor Assmnt - Choose All That Apply Any of the Below Risk Factors Present?: Yes Each Factor Represents 1 point: Obesity (BMI >25) Other Risk Factors: Yes Each Risk Factor Represents 2 Points: Patient confined to bed Other congenital or acquired thrombophilia - If yes, enter type in comment: No Thrombosis Risk Factor Assessment Total Risk Factor Score: 3 Thrombosis Risk Factor Assessment Level: Moderate Risk Assessment and Plan Assessment: 1. Acute on chronic kidney disease with hyperkalemia. Creatinine elevated at 4.26 and bun 51. Potassium 5.2. Nephrology services have been consulted. Normal saline at 60 2. History of obstructive uropathy status post cystoscopy with left. O bstructive placement. Neurology services have been consulted 3. Urinary tract infection. Patient started on Rocephin. Urine culture ordered 4. History of CVA with memory impairment 5. Anemia likely secondary to chronic kidney disease stage III 6. History of myocardial infarction 7. History of pancreatitis 8. History of chronic pain maintained on [place] 9. History of anxiety depression and panic disorder 10. Atrophic right kidney DVT prophylaxis heparin. GI prophylaxis Pepcid Time with Patient: Greater than 30 (Greater than 60% of the total time spent in counseling and coordination of care. I performed an examination of the patient and discussed their management with the Nurse Practitioner. I have reviewed the Nurse Practitioner's notes and agree with the documented findings and plan of care)
[2018-12-19] MEDS: SODIUM CHLORIDE 0.9% 1,000 ML IV SCH (12:17)
--- NOTE | 2018-12-19 19:41 | P.GSCN ---
History of Present Illness Consult date: 12/19/18 Reason for Consult: Hydronephrosis History of present illness: The patient is a 33-year-old female with chronic kidney disease who was directed to come to the emergency room for admission due to abnormal renal function studies. When seen in the emergency room on 12/18 her BUN/creatinine was 51/4.26. Her bicarbonate was 27. Potassium was 5.2. BUN/creatinine this morning was 49/4.10. The patient is unable to provide any pertinent history due to impaired memory. Her history is from review of her previous admissions and our office records. She was originally discovered to have acute renal failure in February of this year. Creatinine at that time was 15.42. She has an atrophic right kidney and her left kidney was hydronephrotic secondary to an obstructive 8x12 mm calculus. She underwent placement of a left double-J catheter performed by . Renal function improved and her creatinine was 1.45 later in February. She apparently did not follow up with and was admitted in 07/30 due to acute renal failure with a creatinine of 17.72. She was treated with emergency hemodialysis and underwent replacement of the double-J catheter on 07/17. Her creatinine fell to 1.45 later in July. It was intended that left ureteroscopy and lithotripsy be performed for removal of the calculus and this was scheduled once in early September and again in late September but both surgeries were eventually canceled. The patient refused to come to the office on 10/09 for a follow-up visit. Her guardian was appraised of the risks of wors ening of her renal failure including the need for dialysis if the obstructive calculus was not removed and the stent remained in place over a long period of time. Her creatinine has varied since then and was as high as 4.99 on 11/30. She apparently has had no recent gross hematuria. She denies abdominal pain but does have low back pain. Review of Systems - Constitutional Denies chills, Denies fever - Gastrointestinal Reports as per HPI - Genitourinary Genitourinary: Denies dysuria, Denies hematuria - Neurological Reports memory loss Past Medical History Past Medical History: CVA/TIA, Myocardial Infarction ([place]) Additional Past Medical History / Comment(s): morbid obesity, pancreatitis, history of coma - 10/24/14 - until end of december after suffering from a stroke. Last Myocardial Infarction Date:: 10/2014 History of Any Multi-Drug Resistant Organisms: ESBL Year Discovered:: 09/05/18 ESBL E.coli MDRO Source:: Urine Past Surgical History: Cholecystectomy Additional Past Surgical History / Comment(s): Cystoscopy with placement of left double-J catheter 02/16/2018, Exchange of left double 07/17/2018 Past Anesthesia/Blood Transfusion Reactions: No Reported Reaction Past Psychological History: Anxiety, Depression, Panic Disorder Smoking Status: Never smoker Past Alcohol Use History: Heavy Past Drug Use History: None Reported - Past Family History Father History Unknown: Yes Family Medical History: Cancer Additional Family Medical History / Comment(s): lung Medications and Allergies Home Medications Medication Instructions Recorded Confirmed Type Clopidogrel [Plavix] 75 mg PO DAILY 02/15/18 12/18/18 History Ergocalciferol (Vitamin D2) 50,000 unit PO Q30D 02/15/18 12/18/18 History [Drisdol] FLUoxetine HCL [PROzac] 20 mg PO DAILY 02/15/18 12/18/18 History Levothyroxine Sodium [Synthroid] 25 mcg PO DAILY 02/15/18 12/18/18 History Melatonin 5 mg PO HS 02/15/18 12/18/18 History Multivitamins, Thera [Multivitamin 1 tab PO DAILY 02/15/18 12/18/18 History (formulary)] Sennosides [Senokot] 8.6 mg PO BID 02/15/18 12/18/18 History Magnesium Oxide [Mag-Ox] 400 mg PO BID 07/15/18 12/18/18 History Acetaminophen Tab [Tylenol Tab] 650 mg PO Q6H PRN 09/03/18 12/18/18 History HYDROcodone/APAP 7.5-325MG [[place] 1 tab PO Q8HR PRN 09/03/18 12/18/18 History 7.5-325] Magnesium Hydroxide [Milk of 30 ml PO DAILY PRN 09/03/18 12/18/18 History Magnesia] Miconazole Nitrate [Miconazole 1 applic TOPICAL BID PRN 09/03/18 12/18/18 History Nitrate 2%] Polyethylene Glycol 3350 [Miralax] 17 gm PO DAILY PRN 09/03/18 12/18/18 History Potassium Citrate [Urocit-K] 15 meq PO TID@0800,1200,1800 09/22/18 12/18/18 History clonazePAM [KlonoPIN] 0.5 mg PO HS@2100 12/18/18 12/18/18 History guaiFENesin [guaiFENesin Oral 200 mg PO Q6H PRN 12/18/18 12/18/18 History Solution] Allergies Allergy/AdvReac Type Severity Reaction Status Date / Time aspirin Allergy Unknown Verified 12/18/18 18:26 ibuprofen [From Motrin] Allergy Unknown Verified 12/18/18 18:26 sertraline HCl [From Zoloft] Allergy Unknown Verified 12/18/18 18:26 zolpidem tartrate Allergy Unknown Verified 12/18/18 18:26 [From Ambien] gabapentin [From Neurontin] AdvReac Severe SEVERE Verified 12/18/18 18:26 AGITATION Surgical - Exam Vital Signs Temp Pulse Resp BP Pulse Ox 98.7 F 87 18 119/76 98 12/18/18 13:59 12/18/18 13:59 12/18/18 13:59 12/18/18 13:59 12/18/18 13:59 - General well developed, no distress, obese - Neck no masses, no lymphadectomy - Respiratory normal respiratory effort - Abdomen Abdomen: soft, non tender, no organomegaly Results - Labs 12/19/18 06:37 12/19/18 06:37 Abnormal Lab Results - Last 24 Hours (Table) 12/19/18 12/19/18 12/19/18 Range/Units 06:37 06:37 06:37 RBC 3.31 L (3.80-5.40) m/uL Hgb 8.8 L (11.4-16.0) gm/dL Hct 28.6 L (34.0-46.0) % MCHC 30.8 L (31.0-37.0) g/dL Potassium 5.2 H 5.2 H (3.5-5.1) mmol/L BUN 49 H (7-17) mg/dL Creatinine 4.10 H (0.52-1.04) mg/dL Glucose 114 H (74-99) mg/dL Calcium 8.3 L (8.4-10.2) mg/dL Magnesium 3.2 H (1.6-2.3) mg/dL AST 12 L (14-36) U/L Albumin 3.2 L (3.5-5.0) g/dL Microbiology - Last 24 Hours (Table) 12/18/18 15:53 Urine Culture - Preliminary Urine,Voided Diabetes panel 12/19/18 12/19/18 Range/Units 06:37 06:37 Sodium 140 (137-145) mmol/L Potassium 5.2 H 5.2 H (3.5-5.1) mmol/L Chloride 105 (98-107) mmol/L Carbon Dioxide 22 (22-30) mmol/L BUN 49 H (7-17) mg/dL Creatinine 4.10 H (0.52-1.04) mg/dL Glucose 114 H (74-99) mg/dL Calcium 8.3 L (8.4-10.2) mg/dL AST 12 L (14-36) U/L ALT 10 (9-52) U/L Alkaline Phosphatase 68 (38-126) U/L Total Protein 7.0 (6.3-8.2) g/dL Albumin 3.2 L (3.5-5.0) g/dL Thyroid panel 12/19/18 Range/Units 06:37 TSH 0.575 (0.465-4.680) mIU/L Calcium panel 12/19/18 Range/Units 06:37 Calcium 8.3 L (8.4-10.2) mg/dL Albumin 3.2 L (3.5-5.0) g/dL Pituitary panel 12/19/18 12/19/18 Range/Units 06:37 06:37 Sodium 140 (137-145) mmol/L Potassium 5.2 H 5.2 H (3.5-5.1) mmol/L Chloride 105 (98-107) mmol/L Carbon Dioxide 22 (22-30) mmol/L BUN 49 H (7-17) mg/dL Creatinine 4.10 H (0.52-1.04) mg/dL Glucose 114 H (74-99) mg/dL Calcium 8.3 L (8.4-10.2) mg/dL TSH 0.575 (0.465-4.680) mIU/L Adrenal panel 12/19/18 12/19/18 Range/Units 06:37 06:37 Sodium 140 (137-145) mmol/L Potassium 5.2 H 5.2 H (3.5-5.1) mmol/L Chloride 105 (98-107) mmol/L Carbon Dioxide 22 (22-30) mmol/L BUN 49 H (7-17) mg/dL Creatinine 4.10 H (0.52-1.04) mg/dL Glucose 114 H (74-99) mg/dL Calcium 8.3 L (8.4-10.2) mg/dL Total Bilirubin 0.3 (0.2-1.3) mg/dL AST 12 L (14-36) U/L ALT 10 (9-52) U/L Alkaline Phosphatase 68 (38-126) U/L Total Protein 7.0 (6.3-8.2) g/dL Albumin 3.2 L (3.5-5.0) g/dL
[2018-12-19] MEDS: HEPARIN SODIUM,PORCINE 5,000 UNIT/ML 1 ML VIAL SQ SCH (20:25)
[2018-12-19] MEDS: ACETAMINOPHEN TAB 325 MG TAB PO PRN (20:25)
[2018-12-19] MEDS: MELATONIN 5 MG TABLET PO SCH (20:25)
[2018-12-19] MEDS: clonazePAM 0.5 MG TAB PO SCH (20:25)
--- NOTE | 2018-12-19 20:59 | CONS ---
CONSULTATION REASON FOR CONSULT: Renal failure. HISTORY OF PRESENT ILLNESS: Patient is a 33-year-old female with history of chronic kidney disease and solitary functioning kidney with previous history of obstructive uropathy and need for left ureteral stent on her last admission. The patient has an atrophic left kidney. She was admitted to the hospital with worsening labs. The patient is not sure if she had any urinary symptoms. Her blood pressure is not significantly low, systolic around 116- 120 mmHg. Patient's serum creatinine was 4.2 mg/dL on admission. It was at 5 on 12/16/2018, and we have a previous creatinine at 2.4 on 11/25/2018. The patient is not sure if she had any further intervention done after July of 2018 on her left kidney. She does follow up with Urology. Currently patient is maintained on IV fluids. Her UA is suggestive of underlying UTI and patient is maintained on antibiotics. She is incontinent. PAST MEDICAL HISTORY: 1. Chronic kidney disease, stage IV, with previous creatinine at 2.4 on 11/25/2018 with a solitary functioning kidney and right renal atrophy with previous history of obstructive uropathy and left ureteral stent placement. We will check imaging of the kidneys and consult Urology. 2. Urinary tract infection. Culture is pending. Maintained on empiric antibiotics. 3. Acute kidney injury, rule out obstructive uropathy. 4. Hyperkalemia associated with acute kidney injury, somewhat improved. 5. Anemia of chronic disease, rule out iron deficiency. PLAN: Check ultrasound of the kidneys. Continue IV fluids. Continue empiric antibiotics. Check postvoid residual. Based on the findings of renal imaging, we will consult Urology if needed. Thank you for this consultation. We will continue to follow the patient with you during her hospitalization. MMODL / IJN: [id number] /
--- NOTE | 2018-12-19 22:14 | US ---
EXAMINATION TYPE: US kidneys/renal and bladder DATE OF EXAM: 12/19/2018 COMPARISON: CT, US CLINICAL HISTORY: Rf. LUQ pain per patient; renal stones; atrophic right kidney EXAM MEASUREMENTS: US exam is technically limited due to overlying bowel gas, and patient's limited r camilo of body positions. Right Kidney: 8.9 x 4.6 x 4.5 cm Left Kidney: 10.3 x 6.6 x 6.4 cm Post Void Residual Volume: not assessed on patient with limited mobility Right Kidney: smaller sized kidney and limitedly seen for above reasons Left Kidney: multiple renal stones noted Bladder: multiple shadowing stones noted within bladder Bilateral Jets seen: no jets were seen as bladder is not fully distended and patient c/o pain here with probe pressure. IMPRESSION: There is right renal atrophy. Left kidney shows multiple nonobstructing calculi. There ar e multiple shadowing areas in the urinary bladder consistent with bladder calculi or debris. We could not demonstrate ureteral jets..
[2018-12-20] MEDS: LEVOTHYROXINE 25 MCG TAB PO SCH (05:20)
[2018-12-20] MEDS: SODIUM CHLORIDE 0.9% 1,000 ML IV SCH ×2 (05:22→20:06)
[2018-12-20 07:52] LABS: Basophils % (A) 0 %; Eosinophils # (A) 0.1 k/uL (0-0.7); Eosinophils % (A) 3 %; HCT 28.3 % (34.0-46.0); HGB 8.8 gm/dL (11.4-16.0); Hypochromasia Slight; Lymphocytes # (A) 1.3 k/uL (1.0-4.8); Lymphocytes % (A) 28 %; MCH 26.7 pg (25.0-35.0); MCHC 31.3 g/dL (31.0-37.0); MCV 85.5 fL (80.0-100.0); Mean Platelet Volume 6.3; Monocytes # (A) 0.3 k/uL (0-1.0); Monocytes % (A) 6 %; Neutrophils % (A) 62 %; Platelet Count 253 k/uL (150-450); RDW 14.5 % (11.5-15.5); WBC 4.8 k/uL (3.8-10.6)
[2018-12-20 08:04] LABS: Albumin 3.3 g/dL (3.5-5.0); Calcium 8.6 mg/dL (8.4-10.2); Potassium 4.4 mmol/L (3.5-5.1); Total Bilirubin 0.1 mg/dL (0.2-1.3)
[2018-12-20] MEDS: CLOPIDOGREL 75 MG TAB PO SCH (08:40)
[2018-12-20] MEDS: FAMOTIDINE 20 MG TAB PO SCH (08:40)
[2018-12-20] MEDS: HYDROcodone/APAP 7.5-325MG 1 EACH TAB PO PRN ×3 (08:40→23:46)
[2018-12-20] MEDS: FLUoxetine HCL 20 MG CAP PO SCH (08:40)
[2018-12-20] MEDS: HEPARIN SODIUM,PORCINE 5,000 UNIT/ML 1 ML VIAL SQ SCH ×2 (08:40→20:04)
[2018-12-20] MEDS: SENNOSIDES 8.6 MG TAB PO SCH ×2 (08:40→20:04)
[2018-12-20] MEDS: MULTIVITAMINS, THERA 1 EACH TAB PO SCH (08:40)
--- NOTE | 2018-12-20 09:59 | P.CONS ---
History of Present Illness - Reason for Consult Consult date: 12/19/18 Urinary tract infection Requesting physician: Roberto Knight - Chief Complaint Abnormal labs - History of Present Illness Patient is a 33-year-old female with complicated renal history in this patient who did have a admission to hospital February 2018 patient did have renal failure she did have elevated creatinine of 15 and she was noticed to have a atrophic right kidney and left-sided hydronephrosis secondary to acalculous patient did have a left double-J catheter placement with apparent improvement in her kidney function unfortunately the patient seems to be not following up with urology as scheduled and did have another admission in July 2018 with acute re nal failure patient did have emergent hemodialysis and did have replacement of the double-J catheter with subsequent improvement her kidney function she was supposed to follow-up with urology for lithotripsy however the patient has not Had appointment patient now has been admitted to the hospital by the primary care physician as she was noticed to have elevated BUN/creatinine on the outpatient testing, patient noticed to have a BUN of 51 and creatinine 4.26 the patient white count has been normal at 7.0 and the patient is afebrile, the patient did have a positive UA which was cloudy with large leukocyte estrace 160 WBC the patient was started on Rocephin infection was consulted for further r ecommendation regarding antibiotic therapy, when asked specifically for the patient and his symptoms the patient says she did not recall however denies any headache denies having any URI symptoms no nausea no vomiting she did complain of some pain in her left flank area to be more frontal aching pain about 45-10 and no radiation but denies any burning or frequency of urine overall the patient not a good historian so most of patient has been obtained from review of chart Review of Systems Positive point has been mentioned in the HPI rest of the systems are negative Past Medical History Past Medical History: CVA/TIA, Myocardial Infarction ([place]) Additional Past Medical History / Comment(s): morbid obesity, pancreatitis, history of coma - 10/24/14 - until end december after suffering from a stroke. Last Myocardial Infarction Date:: 10/2014 History of Any Multi-Drug Resistant Organisms: ESBL Year Discovered:: 09/05/18 ESBL E.coli MDRO Source:: Urine Past Surgical History: Cholecystectomy Additional Past Surgical History / Comment(s): Cystoscopy with placement of left double-J catheter 02/16/2018 Past Anesthesia/Blood Transfusion Reactions: No Reported Reaction Past Psychological History: Anxiety, Depression, Panic Disorder Smoking Status: Never smoker Past Alcohol Use History: Heavy Past Drug Use History: None Reported - Past Family History Father History Unknown: Yes Family Medical History: Cancer Additional Family Medical History / Comment(s): lung Medications and Allergies Home Medications Medication Instructions Recorded Confirmed Type Clopidogrel [Plavix] 75 mg PO DAILY 02/15/18 12/18/18 History Ergocalciferol (Vitamin D2) 50,000 unit PO Q30D 02/15/18 12/18/18 History [Drisdol] FLUoxetine HCL [PROzac] 20 mg PO DAILY 02/15/18 12/18/18 History Levothyroxine Sodium [Synthroid] 25 mcg PO DAILY 02/15/18 12/18/18 History Melatonin 5 mg PO HS 02/15/18 12/18/18 History Multivitamins, Thera [Multivitamin 1 tab PO DAILY 02/15/18 12/18/18 History (formulary)] Sennosides [Senokot] 8.6 mg PO BID 02/15/18 12/18/18 History Magnesium Oxide [Mag-Ox] 400 mg PO BID 07/15/18 12/18/18 History Acetaminophen Tab [Tylenol Tab] 650 mg PO Q6H PRN 09/03/18 12/18/18 History HYDROcodone/APAP 7.5-325MG [[place] 1 tab PO Q8HR PRN 09/03/18 12/18/18 History 7.5-325] Magnesium Hydroxide [Milk of 30 ml PO DAILY PRN 09/03/18 12/18/18 History Magnesia] Miconazole Nitrate [Miconazole 1 applic TOPICAL BID PRN 09/03/18 12/18/18 His tory Nitrate 2%] Polyethylene Glycol 3350 [Miralax] 17 gm PO DAILY PRN 09/03/18 12/18/18 History Potassium Citrate [Urocit-K] 15 meq PO TID@0800,1200,1800 09/22/18 12/18/18 History clonazePAM [KlonoPIN] 0.5 mg PO HS@2100 12/18/18 12/18/18 History guaiFENesin [guaiFENesin Oral 200 mg PO Q6H PRN 12/18/18 12/18/18 History Solution] Allergies Allergy/AdvReac Type Severity Reaction Status Date / Time aspirin Allergy Unknown Verified 12/18/18 18:26 ibuprofen [From Motrin] Allergy Unknown Verified 12/18/18 18:26 sertraline HCl [From Zoloft] Allergy Unknown Verified 12/18/18 18:26 zolpidem tartrate Allergy Unknown Verified 12/18/18 18:26 [From Ambien] gabapentin [From Neurontin] AdvReac Severe SEVERE Verified 12/18/18 18:26 AGITATION Physical Exam Vitals: Vital Signs Temp Pulse Pulse Resp BP BP Pulse Ox 12/19/18 14:56 98.0 F 84 18 120/81 94 L 12/19/18 07:00 98.6 F 80 17 116/76 80 L 12/19/18 01:14 98.4 F 92 15 118/70 95 12/18/18 19:40 98.8 F 97 14 121/84 98 12/18/18 18:00 91 16 125/80 98 12/18/18 16:00 88 16 121/75 98 Intake and Output 12/19/18 12/19/18 12/19/18 06:59 14:59 22:59 Intake Total 750 Balance 750 Intake: Intake, IV Titration 600 Amount Sodium Chloride 0.9% 1, 600 000 ml @ 60 mls/hr IV . [id number] [facility] Rx#:[id number] Oral 150 Other: Voiding Method Diaper Diaper Incontinent Incontinent # Voids 1 GENERAL DESCRIPTION: Middle-aged female lying in bed, no distress. No tachypnea or accessory muscle of respiration use. HEENT: Shows Pallor , no scleral icterus. Oral mucous membrane is dry. No pharyngeal erythema or thrush NECK: Trachea central, no thyromegaly. LUNGS: Unlabored breathing. Clear to auscultation anteriorly. No wheeze or crackle. HEART: S1, S2, regular rate and rhythm. No loud murmur ABDOMEN: Soft, no tenderness , guarding or rigidity, no organomegaly EXTREMITIES: No edema of feet. SKIN: No rash, no masses palpable. NEUROLOGICAL: The patient is awake, alert, oriented x3, mood and affect normal. Results CBC & Chem 7: 12/20/18 07:02 12/20/18 07:10 Labs: Abnormal Lab Results - Last 24 Hours (Table) 12/18/18 12/18/18 12/18/18 Range/Units 15:00 15:00 15:53 RBC 3.44 L (3.80-5.40) m/uL Hgb 9.3 L D (11.4-16.0) gm/dL Hct 29.4 L (34.0-46.0) % MCHC (31.0-37.0) g/dL Potassium 5.4 H (3.5-5.1) mmol/L BUN 51 H (7-17) mg/dL Creatinine 4.26 H (0.52-1.04) mg/dL Glucose 116 H (74-99) mg/dL Calcium (8.4-10.2) mg/dL Magnesium (1.6-2.3) mg/dL AST 10 L (14-36) U/L ALT 6 L (9-52) U/L Albumin (3.5-5.0) g/dL Urine Appearance Cloudy H (Clear) Urine Protein 2+ H (Negative) Urine Glucose (UA) Trace H (Negative) Urine Blood Trace H (Negative) Ur Leukocyte Esterase Large H (Negative) Urine WBC 163 H (0-5) /hpf Urine WBC Clumps Few H (None) /hpf Urine Bacteria Rare H (None) /hpf 12/19/18 12/19/18 12/19/18 Range/Units 06:37 06:37 06:37 RBC 3.31 L (3.80-5.40) m/uL Hgb 8.8 L (11.4-16.0) gm/dL Hct 28.6 L (34.0-46.0) % MCHC 30.8 L (31.0-37.0) g/dL Potassium 5.2 H 5.2 H (3.5-5.1) mmol/L BUN 49 H (7-17) mg/dL Creatinine 4.10 H (0.52-1.04) mg/dL Glucose 114 H (74-99) mg/dL Calcium 8.3 L (8.4-10.2) mg/dL Magnesium 3.2 H (1.6-2.3) mg/dL AST 12 L (14-36) U/L ALT (9-52) U/L Albumin 3.2 L (3.5-5.0) g/dL Urine Appearance (Clear) Urine Protein (Negative) Urine Glucose (UA) (Negative) Urine Blood (Negative) Ur Leukocyte Esterase (Negative) Urine WBC (0-5) /hpf Urine WBC Clumps (None) /hpf Urine Bacteria (None) /hpf Microbiology - Last 24 Hours (Table) 12/18/18 15:53 Urine Culture - Preliminary Urine,Voided Assessment and Plan Assessment: 1-patient admitted hospital with abnormal lab in this patient did have a complicated renal history with left hydronephrosis secondary to large left ureteropelvic junction stone and left double-J catheter placement 2 last one was in July 2018 did have a positive UA but no significant urine symptoms or any systemic symptoms only concerning factor will be the obstructed kidney with left double-J catheter in place (1) UTI (urinary tract infection) Current Visit: Yes Status: Acute Code(s): N39.0 - URINARY TRACT INFECTION, SITE NOT SPECIFIED SNOMED Code(s): 50862731 Plan: 1-Rocephin 1 g IV daily while waiting for the culture finalized 2-gentle IV fluid We will follow on clinical condition and cultures to further adjust medication if needed Thank you for this consultation will follow this patient with you Time with Patient: Greater than 30
--- NOTE | 2018-12-20 10:05 | P.PN ---
Progress Note - Text Progress Note Date: 12/20/18 The patient is afebrile. Her main complaint is low back pain which has been chronic. She denies any dysuria. Urine culture is growing a gram-negative demetrius which could reflect simple cystitis. Potassium is 4.4. Bicarb is 23. BUN/creatinine continue to improve with hydration and are 43/4.04. Renal ultrasound showed an atrophic right kidney which is chronic. It also described calculi in the left kidney and bladder but this could be a reflections from her double-J catheter. No gross hydronephrosis was noted. At least at this time there is no urgent need to proceed with left ureteroscopy with lithotripsy. If the patient does have a urinary tract infection this would need to be treated prior to considering surgery.
[2018-12-20] MEDS: ERTAPENEM 1 GM in SODIUM CHLORIDE 0.9% 50 ML IVPB SCH (12:35)
--- NOTE | 2018-12-20 13:41 | PN ---
PROGRESS NOTE DATE OF SERVICE: 12/20/2018 REASON FOR FOLLOWUP: Complicated urinary tract infection. INTERVAL HISTORY: The patient is currently afebrile. Patient is breathing comfortably. The patient denies having any chest pain. No shortness of breath or cough. No nausea, vomiting. Left-sided abdominal pain has improved and no diarrhea. PHYSICAL EXAMINATION: Blood pressure 145/87 with a pulse of 76, temperature 97.9. She is 100% on room air. General description is a middle-aged female lying in bed in no distress. Respiratory system: Unlabored breathing, clear to auscultation anteriorly. Heart S1, S2. Regular rate and rhythm. Abdomen soft, no tenderness. Extremities: No edema of the feet. LABS: Hemoglobin 8.8, white count 4.8 with a BUN of 43, creatinine 4.04. Urine showing gram- negative bacilli. DIAGNOSTIC IMPRESSION AND PLAN: Patient admitted to hospital with elevated creatinine in this patient who did have a previous history of complicated UTI with ureteral stent placement and multiple renal stones. Review of the microbiological today shows previous infection with ESBL. Discontinue Rocephin and start the patient on Invanz while waiting for the culture to finalize and continue supportive care. MMODL / IJN: [id number] /
--- NOTE | 2018-12-20 13:56 | P.PN ---
Subjective Progress Note Date: 12/20/18 This is a 33-year-old female patient well-known to my services presented to the ER with abnormal kidney enzymes. Patient's creatinine at arrival 4.26 bun 51. Patient has known past medical history of chronic kidney disease secondary to obstructive uropathy with frequent acute episodes. Patient has also history of left ureteral stent placement and atrophic right kidney. Patient reports that she has been feeling well with no complaints. Patient reports that she has been urinating regularly. Patient denies any burning with urination. Patient denies any nausea vomiting or diarrhea. Patient denies any fevers. UA positive for urinary tract infection. Urine culture ordered patient started on Rocephin. Additional medical history includes CVA, myocardial infarction, pancreatitis, chronic pain, anemia of chronic disease, anxiety and depression. At this time urology and nephrology service is consulted. Patient maintained on normal saline at 60. Creatinine is trending down. Patient denies chest pain or shortness of breath. Patient denies nausea vomiting or diarrhea. Patient denies any urinary burning or frequency On 12/20/2018 patient was seen and examined on the medical floor she is alert and oriented 3 in no apparent distress she is still complaining of some pain in her lower back mostly to the left side otherwise she denies any pain there is no fever or chills no headache or dizziness no chest pain no shortness of breath no cough no nausea or vomiting no abdominal pain no diarrhea no burning with urination no frequency or urgency and no hematuria Objective - Vital Signs Vital signs: Vital Signs Temp 97.9 F 12/20/18 07:00 Pulse 76 12/20/18 07:00 Resp 16 12/20/18 07:00 BP 145/87 12/20/18 07:00 Pulse Ox 100 12/20/18 07:00 Intake & Output 12/19/18 12/20/18 12/20/18 18:59 06:59 18:59 Intake Total 222 1300 1080 Balance 222 1300 1080 Intake: Intake, IV Titration 760 Amount Sodium Chloride 0.9% 1, 760 000 ml @ 60 mls/hr IV . [id number] [facility] Rx#:[id number] Oral 286 [id number] Other: Voiding Method Diaper Incontinent # Voids 3 - Exam In general patient is alert and oriented 3 in no apparent distress HEENT head normocephalic and atraumatic Neck is supple no JVD no goiter no lymphadenopathy Lungs clear to auscultation bilaterally no wheezing or crackles Heart regular rate and rhythm S1-S2, no rub or gallop Abdomen is soft nontender nondistended positive bowel sounds no hepatosplenomegaly Extremities no edema. Patient flaccid to bilateral lower extremities. Neuro no gross focal neurological deficit - Labs CBC & Chem 7: 12/20/18 07:02 12/20/18 07:10 Labs: Abnormal Lab Results - Last 24 Hours (Table) 12/20/18 12/20/18 Range/Units 07:02 07:10 RBC 3.30 L (3.80-5.40) m/uL Hgb 8.8 L (11.4-16.0) gm/dL Hct 28.3 L (34.0-46.0) % Chloride 108 H (98-107) mmol/L BUN 43 H (7-17) mg/dL Creatinine 4.04 H (0.52-1.04) mg/dL Glucose 124 H (74-99) mg/dL Total Bilirubin 0.1 L (0.2-1.3) mg/dL AST 9 L (14-36) U/L Albumin 3.3 L (3.5-5.0) g/dL Microbiology - Last 24 Hours (Table) 12/18/18 15:53 Urine Culture - Preliminary Urine,Voided Gram Neg Bacilli Assessment and Plan Plan: 1. Acute on chronic kidney disease with hyperkalemia. Creatinine elevated at 4.26 and bun 51. Potassium 5.2. Nephrology services have been consulted. Normal saline at 60 2. History of obstructive uropathy status post cystoscopy with left. Obstructive placement. Neurology services have been consulted 3. Urinary tract infection. Patient started on Rocephin. Urine culture ordered 4. History of CVA with memory impairment 5. Anemia likely secondary to chronic kidney disease stage III 6. History of myocardial infarction 7. History of pancreatitis 8. History of chronic pain maintained on [place] 9. History of anxiety depression and panic disorder 10. Atrophic right kidney DVT prophylaxis heparin. GI prophylaxis Pepcid Input from Dr. Rod reviewed continue IV antibiotics Recheck labs and follow-up in a.m.
--- NOTE | 2018-12-20 17:17 | PN ---
PROGRESS NOTE The patient is seen for followup for acute kidney injury. The patient has a solitary functioning kidney which is the left kidney and has had a history of previous obstructive uropathy with left ureteral stone, status post left ureteral stent placement in July of this year. The patient did not follow up with Urology as outpatient. She was supposed to have the ureteral stent exchanged. She is admitted with a creatinine of about 4.2. It had been lowest at about 1.8 mg/dL all the way back in September of 2018. Admission creatinine was about 5.0, it is at 4.0 now. The patient has an underlying urinary tract infection and she is maintained on antibiotics. No significant complaints today. PHYSICAL EXAMINATION: Blood pressure was 145/87, heart rate 76 per minute, patient is afebrile. Examination of the heart S1, S2. Examination of the lungs, bilateral breath sounds are heard. Abdomen is soft, non-tender and obese. Examination of lower extremities shows no significant edema. LABS: Show sodium 141, potassium 4.4, BUN 43, serum creatinine 4.04, hemoglobin 8.8 g/dL. ASSESSMENT: 1. Acute kidney injury associated with underlying urine infection maintained on IV fluids and IV antibiotics. Renal function has not changed much although creatinine is down slightly. The patient remains nonoliguric. There was no evidence of hydronephrosis on the ultrasound. At this time urology would like to wait for treatment of underlying urinary tract infection before stent exchange. 2. History of obstructive uropathy on the left side. 3. Right renal atrophy. 4. History of nephrolithiasis. 5. Urinary tract infection with urine culture growing gram-negative bacilli, maintained on antibiotics. 6. Anemia of chronic disease. We will start patient on Aranesp. No active bleeding noted at this time. 7. Chronic kidney disease mineral bone disorder maintained on PhosLo and Rocaltrol. PLAN: Add Aranesp. Check phosphorus levels. Continue with the Rocaltrol. Continue antibiotics. Repeat labs in a.m. MMODL / IJN: [id number] /
[2018-12-20] MEDS: ACETAMINOPHEN TAB 325 MG TAB PO PRN (20:04)
[2018-12-20] MEDS: MELATONIN 5 MG TABLET PO SCH (20:04)
[2018-12-20] MEDS: clonazePAM 0.5 MG TAB PO SCH (20:04)
[2018-12-21] MEDS: LEVOTHYROXINE 25 MCG TAB PO SCH (05:18)
[2018-12-21] MEDS: HEPARIN SODIUM,PORCINE 5,000 UNIT/ML 1 ML VIAL SQ SCH ×2 (06:55→20:10)
[2018-12-21] MEDS: FLUoxetine HCL 20 MG CAP PO SCH (06:55)
[2018-12-21] MEDS: FAMOTIDINE 20 MG TAB PO SCH (06:55)
[2018-12-21] MEDS: SENNOSIDES 8.6 MG TAB PO SCH ×2 (06:55→20:09)
[2018-12-21] MEDS: MULTIVITAMINS, THERA 1 EACH TAB PO SCH (06:55)
[2018-12-21] MEDS: CLOPIDOGREL 75 MG TAB PO SCH (06:55)
[2018-12-21] MEDS: ERTAPENEM 1 GM in SODIUM CHLORIDE 0.9% 50 ML IVPB SCH (06:55)
[2018-12-21 07:28] LABS: Basophils % (A) 0 %; Eosinophils # (A) 0.1 k/uL (0-0.7); Eosinophils % (A) 3 %; HCT 26.1 % (34.0-46.0); HGB 8.1 gm/dL (11.4-16.0); Hypochromasia Slight; Lymphocytes # (A) 1.2 k/uL (1.0-4.8); Lymphocytes % (A) 26 %; MCH 26.6 pg (25.0-35.0); MCHC 31.2 g/dL (31.0-37.0); MCV 85.2 fL (80.0-100.0); Mean Platelet Volume 6.1; Monocytes # (A) 0.3 k/uL (0-1.0); Monocytes % (A) 6 %; Neutrophils # (A) 2.9 k/uL (1.3-7.7); Neutrophils % (A) 63 %; Platelet Count 239 k/uL (150-450); RBC 3.06 m/uL (3.80-5.40); RDW 14.7 % (11.5-15.5); WBC 4.6 k/uL (3.8-10.6)
[2018-12-21 07:43] LABS: Albumin 2.9 g/dL (3.5-5.0); Calcium 8.3 mg/dL (8.4-10.2); Potassium 4.5 mmol/L (3.5-5.1); Total Bilirubin 0.2 mg/dL (0.2-1.3); Total Protein 6.3 g/dL (6.3-8.2)
--- NOTE | 2018-12-21 09:09 | P.PN ---
Progress Note - Text Progress Note Date: 12/21/18 The patient is afebrile. She denies any complaint other than her chronic low back pain. She has no dysuria. BUN/creatinine continued to improve and are 40/3.75. Urine culture is growing Providencia stuartii which was resistant to a variety of antibiotics. The patient's urinary tract infection should be treated prior to consideration of left ureteroscopy with lithotripsy. This will most likely need to be set up as an outpatient by .
--- NOTE | 2018-12-21 10:33 | PN ---
PROGRESS NOTE The patient is seen for followup for acute kidney injury on top of chronic kidney disease. She has an underlying urinary tract infection. Patient is maintained on IV fluids. Serum creatinine is slowly improving. It is down to 3.75 from 5.0 on 12/16/2018. The patient will need left ureteral stent exchange down the road. PHYSICAL EXAMINATION: Blood pressure is 148/72, heart rate 64 per minute. She is afebrile. Examination of the heart S1, S2. Examination of the lungs, decreased breath sounds bases. ABDOMEN: Soft, obese, nontender. Examination of lower extremities shows no evidence of edema. LABS: Show sodium 141, potassium 4.5, chloride 110, BUN of 40, creatinine 3.75, calcium 8.3. UA shows 2+ protein. ASSESSMENT: 1. Acute kidney injury associated with underlying infection currently improving continue with IV fluids. 2. Chronic kidney disease with solitary functioning kidney with right renal atrophy and history of left obstructive uropathy with left ureteral stent which needs to be changed. 3. Urinary tract infection with urine culture growing Providencia stuartii, maintained on Ertapenem. PLAN: Continue IV fluids. Continue antibiotics. Follow up with Urology post discharge. MMODL / IJN: [id number] /
[2018-12-21] MEDS: HYDROcodone/APAP 7.5-325MG 1 EACH TAB PO PRN ×2 (11:30→20:09)
--- NOTE | 2018-12-21 11:47 | P.PN ---
Subjective Progress Note Date: 12/21/18 This is a 33-year-old female patient well-known to my services presented to the ER with abnormal kidney enzymes. Patient's creatinine at arrival 4.26 bun 51. Patient has known past medical history of chronic kidney disease secondary to obstructive uropathy with frequent acute episodes. Patient has also history of left ureteral stent placement and atrophic right kidney. Patient reports that she has been feeling well with no complaints. Patient reports that she has been urinating regularly. Patient denies any burning with urination. Patient denies any nausea vomiting or diarrhea. Patient denies any fevers. UA positive for urinary tract infection. Urine culture ordered patient started on Rocephin. Additional medical history includes CVA, myocardial infarction, pancreatitis, chronic pain, anemia of chronic disease, anxiety and depression. At this time urology and nephrology service is consulted. Patient maintained on normal saline at 60. Creatinine is trending down. Patient denies chest pain or shortness of breath. Patient denies nausea vomiting or diarrhea. Patient denies any urinary burning or frequency On 12/20/2018 patient was seen and examined on the medical floor she is alert and oriented 3 in no apparent distress she is still complaining of some pain in her lower back mostly to the left side otherwise she denies any pain there is no fever or chills no headache or dizziness no chest pain no shortness of breath no cough no nausea or vomiting no abdominal pain no diarrhea no burning with urination no frequency or urgency and no hematuria On 12/21/2018 patient was seen and examined on the medical floor she is alert and oriented 3 she is complaining of mild lower back pain otherwise she denies any complaints at this time, there is no fever or chills no headache or dizziness no chest pain no shortness of breath no cough no nausea or vomiting no abdominal pain no diarrhea no burning was urination no frequency or urgency and no hematuria. Telemetry findings reviewed patient in normal sinus rhythm without any arrhythmia telemetry monitoring discontinued. Urine culture is now available, and is positive forProvidencia Stuartii antibiotics were switched to Ertapenem. Objective - Vital Signs Vital signs: Vital Signs Temp 97.8 F 12/21/18 07:00 Pulse 64 12/21/18 07:00 Resp 16 12/21/18 07:00 BP 106/71 12/21/18 07:00 Pulse Ox 96 12/21/18 07:00 Intake & Output 12/20/18 12/21/18 12/21/18 18:59 06:59 18:59 Intake Total 1080 720 540 Output Total 750 1800 Balance 1756 -94 -7234 Intake: Intake, IV Titration 180 Amount Sodium Chloride 0.9% 1, 180 000 ml @ 60 mls/hr IV . [id number] [facility] Rx#:[id number] Oral 1080 540 540 Output: Urine 750 1800 Other: # Voids 3 - Exam In general patient is alert and oriented 3 in no apparent distress HEENT head normocephalic and atraumatic Neck is supple no JVD no goiter no lymphadenopathy Lungs clear to auscultation bilaterally no wheezing or crackles Heart regular rate and rhythm S1-S2, no rub or gallop Abdomen is soft nontender nondistended positive bowel sounds no hepatosplenomegaly Extremities no edema. Patient flaccid to bilateral lower extremities. Neuro no gross focal neurological deficit - Labs CBC & Chem 7: 12/21/18 06:47 12/21/18 06:47 Labs: Abnormal Lab Results - Last 24 Hours (Table) 12/21/18 12/21/18 Range/Units 06:47 06:47 RBC 3.06 L (3.80-5.40) m/uL Hgb 8.1 L (11.4-16.0) gm/dL Hct 26.1 L (34.0-46.0) % Chloride 110 H (98-107) mmol/L BUN 40 H (7-17) mg/dL Creatinine 3.75 H (0.52-1.04) mg/dL Glucose 118 H (74-99) mg/dL Calcium 8.3 L (8.4-10.2) mg/dL AST 8 L (14-36) U/L ALT 6 L (9-52) U/L Albumin 2.9 L (3.5-5.0) g/dL Microbiology - Last 24 Hours (Table) 12/18/18 15:53 Urine Culture - Final Urine,Voided Providencia stuartii Assessment and Plan Plan: 1. Acute on chronic kidney disease with hyperkalemia. Creatinine elevated at 3.75 and bun 40. Potassium 4.5. Nephrology services have been consulted. Normal saline at 60 2. History of obstructive uropathy status post cystoscopy with left. Obstructive placement. Neurology services have been consulted 3. Urinary tract infection. Patient started on Rocephin. Urine culture was positive for providencia stuarti, antibiotics were switched to ertapenem 4. History of CVA with memory impairment 5. Anemia likely secondary to chronic kidney disease stage III 6. History of myocardial infarction 7. History of pancreatitis 8. History of chronic pain maintained on [place] 9. History of anxiety depression and panic disorder 10. Atrophic right kidney 11. Telemetry findings reviewed so far patient has been in normal sinus rhythm without any arrhythmia will discontinue telemetry monitoring at this time. DVT prophylaxis heparin. GI prophylaxis Pepcid Input from Dr. Rod reviewed continue IV antibiotics Recheck labs and follow-up in a.m.
[2018-12-21] MEDS: SODIUM CHLORIDE 0.9% 1,000 ML IV SCH (13:41)
--- NOTE | 2018-12-21 18:54 | PN ---
PROGRESS NOTE DATE OF SERVICE: 12/21/2018 REASON FOR FOLLOWUP: Urinary tract infection. INTERVAL HISTORY: The patient is currently afebrile. The patient is breathing comfortably. The patient denies having any chest pain. No cough. The patient's left flank pain seems to have slightly improved. No nausea, no vomiting and no diarrhea. PHYSICAL EXAMINATION: Blood pressure 136/71 with a pulse of 64, temperature 97.8. She is 96% on room air. General description is a middle-aged female lying in bed in no distress. Respiratory system: Unlabored breathing, clear to auscultation anteriorly. Heart S1, S2. Regular rate and rhythm. Abdomen soft, no tenderness. LABS: Hemoglobin 8.1, white count 4.6, BUN of 40, and creatinine 3.75. Urine with multidrug resistant Providencia sensitive to Fortaz and ( ) as well as Zosyn. DIAGNOSTIC IMPRESSION AND PLAN: Patient with multidrug resistant urinary tract infection with organism did show multi- drug resistant pattern. She has clinically responded to Invanz which will be continued, however, dose will be adjusted down to 5 mg daily. The patient will need a med line for continuation of IV antibiotic in the outpatient setting. Continue supportive care. MMODL / IJN: [id number] /
[2018-12-21] MEDS: clonazePAM 0.5 MG TAB PO SCH (20:09)
[2018-12-21] MEDS: MELATONIN 5 MG TABLET PO SCH (20:09)
[2018-12-21] MEDS: ACETAMINOPHEN TAB 325 MG TAB PO PRN (22:42)
[2018-12-22] MEDS: HYDROcodone/APAP 7.5-325MG 1 EACH TAB PO PRN ×3 (03:15→19:09)
[2018-12-22] MEDS: LEVOTHYROXINE 25 MCG TAB PO SCH (03:16)
[2018-12-22] MEDS: SODIUM CHLORIDE 0.9% 1,000 ML IV SCH (03:17)
[2018-12-22 06:53] LABS: Basophils % (A) 0 %; Eosinophils # (A) 0.2 k/uL (0-0.7); Eosinophils % (A) 3 %; HCT 27.3 % (34.0-46.0); HGB 8.4 gm/dL (11.4-16.0); Hypochromasia Slight; Lymphocytes # (A) 1.4 k/uL (1.0-4.8); Lymphocytes % (A) 28 %; MCH 26.2 pg (25.0-35.0); MCHC 30.9 g/dL (31.0-37.0); MCV 84.8 fL (80.0-100.0); Mean Platelet Volume 6.1; Monocytes # (A) 0.2 k/uL (0-1.0); Monocytes % (A) 5 %; Neutrophils # (A) 3.1 k/uL (1.3-7.7); Neutrophils % (A) 63 %; Platelet Count 245 k/uL (150-450); RBC 3.22 m/uL (3.80-5.40); RDW 14.9 % (11.5-15.5)
[2018-12-22 07:08] LABS: Albumin 3.1 g/dL (3.5-5.0); Calcium 8.6 mg/dL (8.4-10.2); Potassium 4.7 mmol/L (3.5-5.1); Total Bilirubin 0.2 mg/dL (0.2-1.3); Total Protein 6.5 g/dL (6.3-8.2)
[2018-12-22] MEDS: SENNOSIDES 8.6 MG TAB PO SCH ×2 (07:56→20:01)
[2018-12-22] MEDS: FAMOTIDINE 20 MG TAB PO SCH (07:56)
[2018-12-22] MEDS: FLUoxetine HCL 20 MG CAP PO SCH (07:56)
[2018-12-22] MEDS: ERTAPENEM 0.5 GM in SODIUM CHLORIDE 0.9% 50 ML IVPB SCH (07:56)
[2018-12-22] MEDS: HEPARIN SODIUM,PORCINE 5,000 UNIT/ML 1 ML VIAL SQ SCH ×2 (07:56→19:56)
[2018-12-22] MEDS: CLOPIDOGREL 75 MG TAB PO SCH (07:56)
[2018-12-22] MEDS: MULTIVITAMINS, THERA 1 EACH TAB PO SCH (07:56)
--- NOTE | 2018-12-22 10:54 | P.PN ---
<Eula Rader P - Last Filed: 12/22/18 10:49> Subjective Progress Note Date: 12/22/18 his is a 33-year-old female patient well-known to my services presented to the ER with abnormal kidney enzymes. Patient's creatinine at arrival 4.26 bun 51. Patient has known past medical history of chronic kidney disease secondary to obstructive uropathy with frequent acute episodes. Patient has also history of left ureteral stent placement and atrophic right kidney. Patient reports that she has been feeling well with no complaints. Patient reports that she has been urinating regularly. Patient denies any burning with urination. Patient denies any nausea vomiting or diarrhea. Patient denies any fevers. UA positive for urinary tract infection. Urine culture ordered patient started on Rocephin. Additional medical history includes CVA, myocardial infarction, pancreatitis, chronic pain, anemia of chronic disease, anxiety and depression. At this time urology and nephrology service is consulted. Patient maintained on normal saline at 60. Creatinine is trending down. Patient denies chest pain or shortness of breath. Patient denies nausea vomiting or diarrhea. Patient denies any urinary burning or frequency On 12/20/2018 patient was seen and examined on the medical floor she is alert and oriented 3 in no apparent distress she is still complaining of some pain in her lower back mostly to the left side otherwise she denies any pain there is no fever or chills no headache or dizziness no chest pain no shortness of breath no cough no nausea or vomiting no abdominal pain no diarrhea no burning with urination no frequency or urgency and no hematuria On 12/21/2018 patient was seen and examined on the medical floor she is alert and oriented 3 she is complaining of mild lower back pain otherwise she denies any complaints at this time, there is no fever or chills no headache or dizziness no chest pain no shortness of breath no cough no nausea or vomiting no abdominal pain no diarrhea no burning was urination no frequency or urgency and no hematuria. Telemetry findings reviewed patient in normal sinus rhythm without any arrhythmia telemetry monitoring discontinued. Urine culture is now available, and is positive forProvidencia Stuartii antibiotics were switched to Ertapenem. On 12/22/2018 patient is alert and oriented 3. Patient will likely need IV antibiotics upon discharge per ID. Patient remains on Invanz. Patient denies chest pain or shortness of breath. Patient denies nausea vomiting or diarrhea. Patient denies any urinary burning or frequency creatinine is trending down to 3.44. Objective - Vital Signs Vital signs: Vital Signs Temp 97.9 F 12/22/18 07:00 Pulse 74 12/22/18 07:00 Resp 17 12/22/18 07:00 BP 138/85 12/22/18 07:00 Pulse Ox 97 12/22/18 02:20 Intake & Output 12/21/18 12/22/18 12/22/18 18:59 06:59 18:59 Intake Total 540 1080 Output Total 2700 1500 Balance -2160 -420 Intake: Oral 540 1080 Output: Urine 2700 1500 - Exam In general patient is alert and oriented 3 in no apparent distress HEENT head normocephalic and atraumatic Neck is supple no JVD no goiter no lymphadenopathy Lungs clear to auscultation bilaterally no wheezing or crackles Heart regular rate and rhythm S1-S2, no rub or gallop Abdomen is soft nontender nondistended positive bowel sounds no hepatosplenomegaly Extremities no edema. Patient flaccid to bilateral lower extremities. Neuro no gross focal neurological deficit - Labs CBC & Chem 7: 12/22/18 06:39 12/22/18 06:39 Labs: Abnormal Lab Results - Last 24 Hours (Table) 12/22/18 12/22/18 Range/Units 06:39 06:39 RBC 3.22 L (3.80-5.40) m/uL Hgb 8.4 L (11.4-16.0) gm/dL Hct 27.3 L (34.0-46.0) % MCHC 30.9 L (31.0-37.0) g/dL Chloride 108 H (98-107) mmol/L Carbon Dioxide 21 L (22-30) mmol/L BUN 44 H (7-17) mg/dL Creatinine 3.55 H (0.52-1.04) mg/dL Glucose 190 H (74-99) mg/dL AST 9 L (14-36) U/L ALT 6 L (9-52) U/L Albumin 3.1 L (3.5-5.0) g/dL Assessment and Plan Assessment: 1. Acute on chronic kidney disease with hyperkalemia. Creatinine elevated at 3.75 and bun 40. Potassium 4.5. Nephrology services have been consulted. Normal saline at 60 2. History of obstructive uropathy status post cystoscopy with left ureteral stent placement. Per urology services the patient's urinary tract infection should be treated prior to consideration of left ureterscopy with lithotripsy. This will likely need to be arranged outpatient 3. Urinary tract infection. Patient started on Rocephin. Urine culture was positive for providencia stuarti, antibiotics were switched to ertapenem 4. History of CVA with memory impairment 5. Anemia likely secondary to chronic kidney disease stage III 6. History of myocardial infarction 7. History of pancreatitis 8. History of chronic pain maintained on [place] 9. History of anxiety depression and panic disorder 10. Atrophic right kidney 11. Telemetry findings reviewed so far patient has been in normal sinus rhythm without any arrhythmia will discontinue telemetry monitoring at this time. DVT prophylaxis heparin. GI prophylaxis Pepcid Input from Dr. Rod reviewed continue IV antibiotics Recheck labs and follow-up in a.m. I performed an examination of the patient and discussed their management with the Nurse Practitioner. I have reviewed the Nurse Practitioner's notes and agree with the documented findings and plan of care <Roberto Knight - Last Filed: 12/25/18 10:01> Objective - Vital Signs Vital signs: Vital Signs Temp 98.2 F 12/25/18 07:13 Pulse 61 12/25/18 07:45 Resp 18 12/25/18 07:45 BP 102/65 12/25/18 07:13 Pulse Ox 96 12/25/18 07:13 Intake & Output 12/24/18 12/25/18 12/25/18 18:59 06:59 18:59 Intake Total 450 1340 Output Total 650 2200 1800 Balance -200 -860 -1800 Intake: Intake, IV Titration 50 900 Amount Ertapenem 0.5 gm In 50 Sodium Chloride 0.9% 50 ml @ 100 mls/hr IVPB DAILY [facility] Rx#:[id number] Sodium Chloride 0.9% 1, 900 000 ml @ 75 mls/hr IV . [id number] [facility] Rx#:[id number] Oral 400 440 Output: Urine 650 2200 1800 Other: Voiding Method Diaper Incontinent Incontinent Incontinent # Voids 2 2 - Labs CBC & Chem 7: 12/25/18 06:57 12/25/18 06:57 Labs: Abnormal Lab Results - Last 24 Hours (Table) 12/24/18 12/24/18 12/24/18 Range/Units 11:59 16:50 20:07 RBC (3.80-5.40) m/uL Hgb (11.4-16.0) gm/dL Hct (34.0-46.0) % MCHC (31.0-37.0) g/dL Chloride (98-107) mmol/L Carbon Dioxide (22-30) mmol/L BUN (7-17) mg/dL Creatinine (0.52-1.04) mg/dL Glucose (74-99) mg/dL POC Glucose (mg/dL) 139 H 100 H 136 H (75-99) mg/dL AST (14-36) U/L Albumin (3.5-5.0) g/dL 12/25/18 12/25/18 12/25/18 Range/Units 06:54 06:57 06:57 RBC 3.32 L (3.80-5.40) m/uL Hgb 8.5 L (11.4-16.0) gm/dL Hct 28.3 L (34.0-46.0) % MCHC 30.1 L (31.0-37.0) g/dL Chloride 111 H (98-107) mmol/L Carbon Dioxide 19 L (22-30) mmol/L BUN 50 H (7-17) mg/dL Creatinine 3.24 H (0.52-1.04) mg/dL Glucose 144 H (74-99) mg/dL POC Glucose (mg/dL) 156 H (75-99) mg/dL AST 13 L (14-36) U/L Albumin 3.2 L (3.5-5.0) g/dL
--- NOTE | 2018-12-22 14:17 | PN ---
PROGRESS NOTE Patient is seen for followup for acute kidney injury which is mainly associated with underlying UTI and a prerenal component. Patient has a solitary functioning kidney, which is her left kidney. She has right renal atrophy. Patient has had left ureteral stone and left ureteral stents placed previously. Currently she is being treated for UTI and is maintained on IV fluids, renal function has been improving. PHYSICAL EXAMINATION: Blood pressure is 138/85, heart rate 74 per minute, she is afebrile. Examination of the heart S1, S2. Examination of the lungs, decreased breath sounds at bases. Abdomen is soft, nontender, obese. Examination of the lower extremities showed no evidence of edema. [employer] exam grossly intact. LABS: Show sodium 139, potassium 4.7, BUN 44, creatinine 3.5, hemoglobin 8.4 g/dL. ASSESSMENT: 1. Acute kidney injury associated with underlying urinary tract infection as well as mild volume depletion currently improved, patient is maintained on IV fluids, which can be discontinued. 2. Urinary tract infection with urine culture growing Providencia stuartii, maintained on antibiotics. 3. History of left ureteral stone, obstructive uropathy, status post stent placement in July of 2018. Patient did not follow up for a stent exchange since then and she will need her left ureteral stent exchange down the road once the infection is treated. 4. History of right renal atrophy. 5. Hypothyroidism maintained on supplementation. PLAN: Discontinue IV fluids, encourage increased oral intake. Continue to avoid nephrotoxic agents. MMODL / IJN: [id number] /
[2018-12-22 17:47] LABS: Hemoglobin A1C 6.9 % (4.0-6.0)
--- NOTE | 2018-12-22 18:12 | P.PN ---
Progress Note - Text Progress Note Date: 12/22/18 Ms. Christensen is afebrile. She denies any pain. Her WBC count is normal. The urine culture shows a Providencia UTI, sensitive only to IV antibiotics. Given that she is asymptomatic, this would not normally require treatment. However, she is now agreeable to undergoing removal of her left ureteral stent along with ureteroscopy and laser lithotripsy of any left renal calculi. I will attempt to schedule this while she is receiving IV antibiotics.
[2018-12-22] MEDS: clonazePAM 0.5 MG TAB PO SCH (20:01)
[2018-12-22] MEDS: MELATONIN 5 MG TABLET PO SCH (20:01)
--- NOTE | 2018-12-22 22:19 | PN ---
PROGRESS NOTE DATE OF SERVICE: 12/22/2018 REASON FOR FOLLOWUP: Complicated urinary tract infection. INTERVAL HISTORY: The patient is currently afebrile. The patient is breathing comfortably. The patient denies having any chest pain or cough. No nausea, no vomiting, no abdominal pain or pain to the left flank area. No diarrhea. PHYSICAL EXAMINATION: Blood pressure 127/85 with a pulse of 76, temperature 97.6. She is 97% on room air. General description is a middle-aged female lying in bed in no distress. RESPIRATORY SYSTEM: Unlabored breathing. Clear to auscultation anteriorly. HEART: S1, S2. Regular rate and rhythm. ABDOMEN: Soft. No tenderness. EXTREMITIES: No edema of the feet. LABS: Hemoglobin 8.4, white count 5.0, BUN of 44, creatinine 3.55. DIAGNOSTIC IMPRESSION AND PLAN: Patient with [id number] providencia urinary tract infection with multi-drug resistance. Patient is currently covered with Invanz; to continue. She will get a midline to finish her antibiotic therapy. Continue with supportive care. MMODL / IJN: [id number] /
[2018-12-23] MEDS: HYDROcodone/APAP 7.5-325MG 1 EACH TAB PO PRN ×3 (02:18→19:40)
[2018-12-23] MEDS: LEVOTHYROXINE 25 MCG TAB PO SCH (05:52)
[2018-12-23 06:57] LABS: Albumin 3.4 g/dL (3.5-5.0); Calcium 8.9 mg/dL (8.4-10.2); Total Bilirubin 0.2 mg/dL (0.2-1.3)
[2018-12-23 07:06] LABS: Basophils % (A) 1 %; Eosinophils # (A) 0.2 k/uL (0-0.7); Eosinophils % (A) 3 %; HCT 27.5 % (34.0-46.0); HGB 8.9 gm/dL (11.4-16.0); Hypochromasia Marked; Lymphocytes # (A) 1.3 k/uL (1.0-4.8); Lymphocytes % (A) 26 %; MCH 27.7 pg (25.0-35.0); MCHC 32.4 g/dL (31.0-37.0); MCV 85.5 fL (80.0-100.0); Mean Platelet Volume 5.7; Monocytes # (A) 0.3 k/uL (0-1.0); Monocytes % (A) 5 %; Neutrophils # (A) 3.2 k/uL (1.3-7.7); Neutrophils % (A) 63 %; Platelet Count 261 k/uL (150-450); RBC 3.22 m/uL (3.80-5.40); RDW 14.5 % (11.5-15.5)
[2018-12-23] MEDS: ERTAPENEM 0.5 GM in SODIUM CHLORIDE 0.9% 50 ML IVPB SCH (08:02)
[2018-12-23] MEDS: MULTIVITAMINS, THERA 1 EACH TAB PO SCH (08:03)
[2018-12-23] MEDS: FAMOTIDINE 20 MG TAB PO SCH (08:03)
[2018-12-23] MEDS: HEPARIN SODIUM,PORCINE 5,000 UNIT/ML 1 ML VIAL SQ SCH ×2 (08:03→19:41)
[2018-12-23] MEDS: CLOPIDOGREL 75 MG TAB PO SCH (08:03)
[2018-12-23] MEDS: FLUoxetine HCL 20 MG CAP PO SCH (08:03)
[2018-12-23] MEDS: SENNOSIDES 8.6 MG TAB PO SCH ×2 (08:03→19:40)
[2018-12-23] MEDS: ACETAMINOPHEN TAB 325 MG TAB PO PRN (08:04)
--- NOTE | 2018-12-23 09:37 | P.PN ---
<Eula Rader P - Last Filed: 12/23/18 09:34> Subjective Progress Note Date: 12/23/18 his is a 33-year-old female patient well-known to my services presented to the ER with abnormal kidney enzymes. Patient's creatinine at arrival 4.26 bun 51. Patient has known past medical history of chronic kidney disease secondary to obstructive uropathy with frequent acute episodes. Patient has also history of left ureteral stent placement and atrophic right kidney. Patient reports that she has been feeling well with no complaints. Patient reports that she has been urinating regularly. Patient denies any burning with urination. Patient denies any nausea vomiting or diarrhea. Patient denies any fevers. UA positive for urinary tract infection. Urine culture ordered patient started on Rocephin. Additional medical history includes CVA, myocardial infarction, pancreatitis, chronic pain, anemia of chronic disease, anxiety and depression. At this time urology and nephrology service is consulted. Patient maintained on normal saline at 60. Creatinine is trending down. Patient denies chest pain or shortness of breath. Patient denies nausea vomiting or diarrhea. Patient denies any urinary burning or frequency On 12/20/2018 patient was seen and examined on the medical floor she is alert and oriented 3 in no apparent distress she is still complaining of some pain in her lower back mostly to the left side otherwise she denies any pain there is no fever or chills no headache or dizziness no chest pain no shortness of breath no cough no nausea or vomiting no abdominal pain no diarrhea no burning with urination no frequency or urgency and no hematuria On 12/21/2018 patient was seen and examined on the medical floor she is alert and oriented 3 she is complaining of mild lower back pain otherwise she denies any complaints at this time, there is no fever or chills no headache or dizziness no chest pain no shortness of breath no cough no nausea or vomiting no abdominal pain no diarrhea no burning was urination no frequency or urgency and no hematuria. Telemetry findings reviewed patient in normal sinus rhythm without any arrhythmia telemetry monitoring discontinued. Urine culture is now available, and is positive forProvidencia Stuartii antibiotics were switched to Ertapenem. On 12/22/2018 patient is alert and oriented 3. Patient will likely need IV antibiotics upon discharge per ID. Patient remains on Invanz. Patient denies chest pain or shortness of breath. Patient denies nausea vomiting or diarrhea. Patient denies any urinary burning or frequency creatinine is trending down to 3.44. On 12/23/2018 patient is alert and oriented 3. Midline has been ordered for IV antibiotics. At this time patient denies chest pain or shortness of breath. Patient denies nausea vomiting or diarrhea. Patient denies any urinary burning or frequency. Per urology possible inpatient procedure. Objective - Vital Signs Vital signs: Vital Signs Temp 97.7 F 12/23/18 07:00 Pulse 61 12/23/18 07:00 Resp 17 12/23/18 07:00 BP 93/59 12/23/18 07:00 Pulse Ox 96 12/23/18 07:00 Intake & Output 12/22/18 12/23/18 12/23/18 18:59 06:59 18:59 Intake Total 1360 960 Output Total 2250 1200 Balance -890 -240 Intake: Intake, IV Titration 480 Amount Sodium Chloride 0.9% 1, 480 000 ml @ 60 mls/hr IV . [id number] [facility] Rx#:[id number] Oral 880 960 Output: Urine 2250 1200 Other: Voiding Method Diaper Diaper Incontinent Incontinent # Voids 3 1 - Exam In general patient is alert and oriented 3 in no apparent distress HEENT head normocephalic and atraumatic Neck is supple no JVD no goiter no lymphadenopathy Lungs clear to auscultation bilaterally no wheezing or crackles Heart regular rate and rhythm S1-S2, no rub or gallop Abdomen is soft nontender nondistended positive bowel sounds no hepatosplenomegaly Extremities no edema. Patient flaccid to bilateral lower extremities. Neuro no gross focal neurological deficit - Labs CBC & Chem 7: 12/23/18 06:25 12/23/18 06:25 Labs: Abnormal Lab Results - Last 24 Hours (Table) 12/22/18 12/23/18 12/23/18 Range/Units 06:39 06:25 06:25 RBC 3.22 L (3.80-5.40) m/uL Hgb 8.9 L (11.4-16.0) gm/dL Hct 27.5 L (34.0-46.0) % Chloride 109 H (98-107) mmol/L Carbon Dioxide 20 L (22-30) mmol/L BUN 44 H (7-17) mg/dL Creatinine 3.58 H (0.52-1.04) mg/dL Glucose 139 H (74-99) mg/dL Hemoglobin A1c 6.9 H (4.0-6.0) % AST 12 L (14-36) U/L ALT 8 L (9-52) U/L Albumin 3.4 L (3.5-5.0) g/dL Assessment and Plan Assessment: 1. Acute on chronic kidney disease with hyperkalemia. Creatinine elevated at 3.75 and bun 40. Potassium 4.5. Nephrology services have been consulted 2. History of obstructive uropathy status post cystoscopy with left ureteral stent placement. Per urology services the patient's urinary tract infection should be treated prior to consideration of left ureterscopy with lithotripsy. T 3. Urinary tract infection. Patient started on Rocephin. Urine culture was positive for providencia stuarti, antibiotics were switched to ertapenem. Midline to be placed for ID recommendation 4. History of CVA with memory impairment 5. Anemia likely secondary to chronic kidney disease stage III 6. History of myocardial infarction 7. History of pancreatitis 8. History of chronic pain maintained on [place] 9. History of anxiety depression and panic disorder 10. Atrophic right kidney 11. Telemetry findings reviewed so far patient has been in normal sinus rhythm without any arrhythmia will discontinue telemetry monitoring at this time. DVT prophylaxis heparin. GI prophylaxis Pepcid Input from Dr. Rod reviewed continue IV antibiotics Recheck labs and follow-up in a.m. I performed an examination of the patient and discussed their management with the Nurse Practitioner. I have reviewed the Nurse Practitioner's notes and agree with the documented findings and plan of care <Roberto Knight - Last Filed: 12/25/18 09:46> Objective - Vital Signs Vital signs: Vital Signs Temp 98.2 F 12/25/18 07:13 Pulse 61 12/25/18 07:45 Resp 18 12/25/18 07:45 BP 102/65 12/25/18 07:13 Pulse Ox 96 12/25/18 07:13 Intake & Output 12/24/18 12/25/18 12/25/18 18:59 06:59 18:59 Intake Total 450 1340 Output Total 650 2200 1800 Balance -200 -860 -1800 Intake: Intake, IV Titration 50 900 Amount Ertapenem 0.5 gm In 50 Sodium Chloride 0.9% 50 ml @ 100 mls/hr IVPB DAILY [facility] Rx#:[id number] Sodium Chloride 0.9% 1, 900 000 ml @ 75 mls/hr IV . [id number] [facility] Rx#:[id number] Oral 400 440 Output: Urine 650 2200 1800 Other: Voiding Method Diaper Incontinent Incontinent Incontinent # Voids 2 2 - Labs CBC & Chem 7: 12/25/18 06:57 12/25/18 06:57 Labs: Abnormal Lab Results - Last 24 Hours (Table) 12/24/18 12/24/18 12/24/18 Range/Units 11:59 16:50 20:07 RBC (3.80-5.40) m/uL Hgb (11.4-16.0) gm/dL Hct (34.0-46.0) % MCHC (31.0-37.0) g/dL Chloride (98-107) mmol/L Carbon Dioxide (22-30) mmol/L BUN (7-17) mg/dL Creatinine (0.52-1.04) mg/dL Glucose (74-99) mg/dL POC Glucose (mg/dL) 139 H 100 H 136 H (75-99) mg/dL AST (14-36) U/L Albumin (3.5-5.0) g/dL 12/25/18 12/25/18 12/25/18 Range/Units 06:54 06:57 06:57 RBC 3.32 L (3.80-5.40) m/uL Hgb 8.5 L (11.4-16.0) gm/dL Hct 28.3 L (34.0-46.0) % MCHC 30.1 L (31.0-37.0) g/dL Chloride 111 H (98-107) mmol/L Carbon Dioxide 19 L (22-30) mmol/L BUN 50 H (7-17) mg/dL Creatinine 3.24 H (0.52-1.04) mg/dL Glucose 144 H (74-99) mg/dL POC Glucose (mg/dL) 156 H (75-99) mg/dL AST 13 L (14-36) U/L Albumin 3.2 L (3.5-5.0) g/dL Assessment and Plan Assessment: patient is resting comfortably in bed with no complaints
--- NOTE | 2018-12-23 13:59 | PN ---
PROGRESS NOTE Patient is seen for followup for acute kidney injury and chronic kidney disease. She is currently being treated for urinary tract infection. Renal function has improved. Serum creatinine is down from about 5 to 3.5 mg/dL. IV fluids were discontinued. Patient has good oral intake. She is being treated for UTI and there are plans for left ureteral stent exchange down the road, possibly as outpatient. PHYSICAL EXAMINATION: On examination today, blood pressure is 105/70 and then 93/59 later on this morning, heart rate 61 per minute. She is afebrile. Examination of the heart S1, S2. Examination of the lungs, bilateral breath sounds are heard. Abdomen is soft, obese. Examination of the lower extremities shows no evidence of edema. Patient has contractures in the left hand. LABS: Show sodium 140, potassium 5.0, BUN 44, creatinine 2.5, hemoglobin 8.9 g/dL. ASSESSMENT: 1. Acute kidney injury associated with underlying infection and volume depletion, currently improved. 2. History of obstructive uropathy on the left side, status post left ureteral stent placements which needs to be removed. The patient is being followed by Urology. 3. Chronic kidney disease with atrophic right kidney and history of left nephrolithiasis, NKF stage IV with previous creatinine at 2.4 mg/dL on 11/25/2018. 4. A solitary functioning kidney with atrophic right kidney. 5. History of nephrolithiasis. PLAN: Encourage increased oral intake. Patient will need followup as outpatient. MMODL / IJN: [id number] /
[2018-12-23] MEDS: MELATONIN 5 MG TABLET PO SCH (19:40)
[2018-12-23] MEDS: clonazePAM 0.5 MG TAB PO SCH (19:41)
--- NOTE | 2018-12-23 23:38 | PN ---
PROGRESS NOTE DATE OF SERVICE: 12/23/2018 REASON FOR FOLLOWUP: Complicated urinary tract infection. INTERVAL HISTORY: The patient is currently afebrile. The patient is breathing comfortably. The patient denies having any chest pain or cough. No nausea, no vomiting, no abdominal pain or any diarrhea. PHYSICAL EXAMINATION: Blood pressure is 119/81 with a pulse of 87, temperature 98.6. She is 97% on room air. General description is a middle-aged female lying in bed in no distress. RESPIRATORY SYSTEM: Unlabored breathing. Clear to auscultation anteriorly. HEART: S1, S2. Regular rate and rhythm. ABDOMEN: Soft. No tenderness. LABS: White count is currently normal. Creatinine is slightly improved. DIAGNOSTIC IMPRESSION AND PLAN: Patient with a complicated urinary tract infection in this patient who did have a left ureteral stent. The patient's urine cultures have shown providencia, which is a resistant bacteria. Patient is currently covered with Invanz; to continue. Waiting for removal of the left ureteral stent while the patient is on antibiotics. Continue with supportive care. MMODL / IJN: [id number] /
[2018-12-24] MEDS: HYDROcodone/APAP 7.5-325MG 1 EACH TAB PO PRN ×3 (03:17→17:39)
[2018-12-24] MEDS: LEVOTHYROXINE 25 MCG TAB PO SCH (06:04)
[2018-12-24 07:23] LABS: Basophils % (A) 0 %; Eosinophils # (A) 0.2 k/uL (0-0.7); Eosinophils % (A) 3 %; HCT 29.5 % (34.0-46.0); Hypochromasia Slight; Lymphocytes # (A) 1.8 k/uL (1.0-4.8); Lymphocytes % (A) 29 %; MCH 25.8 pg (25.0-35.0); MCHC 30.5 g/dL (31.0-37.0); MCV 84.8 fL (80.0-100.0); Mean Platelet Volume 6.8; Monocytes # (A) 0.3 k/uL (0-1.0); Monocytes % (A) 5 %; Neutrophils # (A) 3.9 k/uL (1.3-7.7); Neutrophils % (A) 62 %; Platelet Count 258 k/uL (150-450); RBC 3.48 m/uL (3.80-5.40); RDW 15.2 % (11.5-15.5); WBC 6.3 k/uL (3.8-10.6)
[2018-12-24 07:39] LABS: Albumin 3.4 g/dL (3.5-5.0); Calcium 8.8 mg/dL (8.4-10.2); Potassium 4.6 mmol/L (3.5-5.1); Total Bilirubin 0.2 mg/dL (0.2-1.3); Total Protein 7.1 g/dL (6.3-8.2)
[2018-12-24] MEDS: MULTIVITAMINS, THERA 1 EACH TAB PO SCH (09:01)
[2018-12-24] MEDS: FAMOTIDINE 20 MG TAB PO SCH (09:01)
[2018-12-24] MEDS: CLOPIDOGREL 75 MG TAB PO SCH (09:01)
[2018-12-24] MEDS: ERTAPENEM 0.5 GM in SODIUM CHLORIDE 0.9% 50 ML IVPB SCH (09:01)
[2018-12-24] MEDS: SENNOSIDES 8.6 MG TAB PO SCH ×2 (09:01→20:13)
[2018-12-24] MEDS: FLUoxetine HCL 20 MG CAP PO SCH (09:01)
[2018-12-24] MEDS: HEPARIN SODIUM,PORCINE 5,000 UNIT/ML 1 ML VIAL SQ SCH ×2 (09:02→20:13)
--- NOTE | 2018-12-24 10:22 | P.PN ---
<Eula Rader P - Last Filed: 12/24/18 10:18> Subjective Progress Note Date: 12/24/18 his is a 33-year-old female patient well-known to my services presented to the ER with abnormal kidney enzymes. Patient's creatinine at arrival 4.26 bun 51. Patient has known past medical history of chronic kidney disease secondary to obstructive uropathy with frequent acute episodes. Patient has also history of left ureteral stent placement and atrophic right kidney. Patient reports that she has been feeling well with no complaints. Patient reports that she has been urinating regularly. Patient denies any burning with urination. Patient denies any nausea vomiting or diarrhea. Patient denies any fevers. UA positive for urinary tract infection. Urine culture ordered patient started on Rocephin. Additional medical history includes CVA, myocardial infarction, pancreatitis, chronic pain, anemia of chronic disease, anxiety and depression. At this time urology and nephrology service is consulted. Patient maintained on normal saline at 60. Creatinine is trending down. Patient denies chest pain or shortness of breath. Patient denies nausea vomiting or diarrhea. Patient denies any urinary burning or frequency On 12/20/2018 patient was seen and examined on the medical floor she is alert and oriented 3 in no apparent distress she is still complaining of some pain in her lower back mostly to the left side otherwise she denies any pain there is no fever or chills no headache or dizziness no chest pain no shortness of breath no cough no nausea or vomiting no abdominal pain no diarrhea no burning with urination no frequency or urgency and no hematuria On 12/21/2018 patient was seen and examined on the medical floor she is alert and oriented 3 she is complaining of mild lower back pain otherwise she denies any complaints at this time, there is no fever or chills no headache or dizziness no chest pain no shortness of breath no cough no nausea or vomiting no abdominal pain no diarrhea no burning was urination no frequency or urgency and no hematuria. Telemetry findings reviewed patient in normal sinus rhythm without any arrhythmia telemetry monitoring discontinued. Urine culture is now available, and is positive forProvidencia Stuartii antibiotics were switched to Ertapenem. On 12/22/2018 patient is alert and oriented 3. Patient will likely need IV antibiotics upon discharge per ID. Patient remains on Invanz. Patient denies chest pain or shortness of breath. Patient denies nausea vomiting or diarrhea. Patient denies any urinary burning or frequency creatinine is trending down to 3.44. On 12/23/2018 patient is alert and oriented 3. Midline has been ordered for IV antibiotics. At this time patient denies chest pain or shortness of breath. Patient denies nausea vomiting or diarrhea. Patient denies any urinary burning or frequency. Per urology possible inpatient procedure. On 12/25/2018 patient alert and oriented 3. Midline placed for IV antibiotics. Creatinine increasing to 3.6-147 awaiting urology decision in regards to possible procedure. Patient denies chest pain or shortness of breath. Patient denies nausea vomiting or diarrhea. Patient currently on senna for constipation. Objective - Vital Signs Vital signs: Vital Signs Temp 98.2 F 12/24/18 07:00 Pulse 72 12/24/18 08:05 Resp 17 12/24/18 08:05 BP 102/69 12/24/18 07:00 Pulse Ox 96 12/24/18 07:00 Intake & Output 12/23/18 12/24/18 12/24/18 18:59 06:59 18:59 Intake Total 236 Output Total 1000 Balance 236 -1000 Intake: Oral 236 Output: Urine 1000 Other: Voiding Method Diaper Diaper Incontinent Incontinent # Voids 2 2 - Exam In general patient is alert and oriented 3 in no apparent distress HEENT head normocephalic and atraumatic Neck is supple no JVD no goiter no lymphadenopathy Lungs clear to auscultation bilaterally no wheezing or crackles Heart regular rate and rhythm S1-S2, no rub or gallop Abdomen is soft nontender nondistended positive bowel sounds no hepatosplenomegaly Extremities no edema. Patient flaccid to bilateral lower extremities. Neuro no gross focal neurological deficit - Labs CBC & Chem 7: 12/24/18 07:02 12/24/18 07:02 Labs: Abnormal Lab Results - Last 24 Hours (Table) 12/24/18 12/24/18 Range/Units 07:02 07:02 RBC 3.48 L (3.80-5.40) m/uL Hgb 9.0 L (11.4-16.0) gm/dL Hct 29.5 L (34.0-46.0) % MCHC 30.5 L (31.0-37.0) g/dL Chloride 108 H (98-107) mmol/L BUN 47 H (7-17) mg/dL Creatinine 3.62 H (0.52-1.04) mg/dL Glucose 139 H (74-99) mg/dL AST 13 L (14-36) U/L Albumin 3.4 L (3.5-5.0) g/dL Assessment and Plan Assessment: 1. Acute on chronic kidney disease with hyperkalemia. Creatinine elevated at 3.75 and bun 40. Potassium 4.5. Nephrology services following 2. History of obstructive uropathy status post cystoscopy with left ureteral stent placement. Per urology services the patient's urinary tract infection should be treated prior to consideration of left ureterscopy with lithotripsy. Per urology services possible left ureteral stent removal along with ureterscopy and laser lithotripsy of any left renal calcui inpatient 3. Urinary tract infection. Patient started on Rocephin. Urine culture was positive for providencia stuarti, antibiotics were switched to ertapenem. Midline placed for IV antibiotics 4. History of CVA with memory impairment 5. Anemia likely secondary to chronic kidney disease stage III 6. History of myocardial infarction 7. History of pancreatitis 8. History of chronic pain maintained on [place] 9. History of anxiety depression and panic disorder 10. Atrophic right kidney 11. Telemetry findings reviewed so far patient has been in normal sinus rhythm without any arrhythmia will discontinue telemetry monitoring at this time. DVT prophylaxis heparin. GI prophylaxis Pepcid Input from Dr. Rod reviewed continue IV antibiotics Recheck labs and follow-up in a.m. I performed an examination of the patient and discussed their management with the Nurse Practitioner. I have reviewed the Nurse Practitioner's notes and ag ree with the documented findings and plan of care <Roberto Knight - Last Filed: 12/25/18 09:32> Objective - Vital Signs Vital signs: Vital Signs Temp 98.2 F 12/25/18 07:13 Pulse 61 12/25/18 07:13 Resp 18 12/25/18 07:13 BP 102/65 12/25/18 07:13 Pulse Ox 96 12/25/18 07:13 Intake & Output 12/24/18 12/25/18 12/25/18 18:59 06:59 18:59 Intake Total 450 1340 Output Total 650 2200 Balance -200 -860 Intake: Intake, IV Titration 50 900 Amount Ertapenem 0.5 gm In 50 Sodium Chloride 0.9% 50 ml @ 100 mls/hr IVPB DAILY [facility] Rx#:[id number] Sodium Chloride 0.9% 1, 900 000 ml @ 75 mls/hr IV . [id number] [facility] Rx#:[id number] Oral 400 440 Output: Urine 650 2200 Other: Voiding Method Diaper Incontinent Incontinent # Voids 2 - Labs CBC & Chem 7: 12/25/18 06:57 12/25/18 06:57 Labs: Abnormal Lab Results - Last 24 Hours (Table) 12/24/18 12/24/18 12/24/18 Range/Units 11:59 16:50 20:07 RBC (3.80-5.40) m/uL Hgb (11.4-16.0) gm/dL Hct (34.0-46.0) % MCHC (31.0-37.0) g/dL Chloride (98-107) mmol/L Carbon Dioxide (22-30) mmol/L BUN (7-17) mg/dL Creatinine (0.52-1.04) mg/dL Glucose (74-99) mg/dL POC Glucose (mg/dL) 139 H 100 H 136 H (75-99) mg/dL AST (14-36) U/L Albumin (3.5-5.0) g/dL 12/25/18 12/25/18 12/25/18 Range/Units 06:54 06:57 06:57 RBC 3.32 L (3.80-5.40) m/uL Hgb 8.5 L (11.4-16.0) gm/dL Hct 28.3 L (34.0-46.0) % MCHC 30.1 L (31.0-37.0) g/dL Chloride 111 H (98-107) mmol/L Carbon Dioxide 19 L (22-30) mmol/L BUN 50 H (7-17) mg/dL Creatinine 3.24 H (0.52-1.04) mg/dL Glucose 144 H (74-99) mg/dL POC Glucose (mg/dL) 156 H (75-99) mg/dL AST 13 L (14-36) U/L Albumin 3.2 L (3.5-5.0) g/dL Assessment and Plan Assessment: Patient having pain to left index finger due to chronic contracture. Baclofen to be added
[2018-12-24] MEDS: INSULIN ASPART (NovoLOG) 100 UNIT/ML VIAL SQ SCH ×3 (11:59→20:12)
[2018-12-24 12:02] LABS: Glucose,Whole Blood 139 mg/dL (75-99)
--- NOTE | 2018-12-24 14:57 | PN ---
PROGRESS NOTE DATE OF SERVICE: 12/24/2018 REASON FOR FOLLOWUP: Complicated urinary tract infection. INTERVAL HISTORY: The patient is currently afebrile. The patient is breathing comfortably. The patient denies having any chest pain or cough. No nausea, no vomiting, no abdominal pain, no diarrhea. PHYSICAL EXAMINATION: Blood pressure 132/69 with a pulse of 72, temperature 98.2. She is 93% on room air. General description is a middle-aged female lying in bed in no distress. RESPIRATORY SYSTEM: Unlabored breathing. Clear to auscultation anteriorly. HEART: S1, S2. Regular rate and rhythm. ABDOMEN: Soft. No tenderness. LABS: White count is 6.3. Creatinine is 3.62. DIAGNOSTIC IMPRESSION AND PLAN: Patient with positive urine cultures with Providencia. This patient did have underlying complicated UTI with stent to the left kidney, possible exchange of the same during this admission. Continue with Invanz. Monitor clinical course closely. Continue supportive care. MMODL / IJN: [id number] /
--- NOTE | 2018-12-24 15:12 | PN ---
PROGRESS NOTE Patient is seen for followup for acute kidney injury on top of chronic kidney disease. Currently patient is being treated for underlying urinary tract infection. She has improved renal function staying stable with creatinine 3.5-3.6 mg/dL, which is down from about 5.0 on 12/16/2018. IV fluids have been discontinued. The patient has had good oral intake. She needs a left ureteral stent exchange, which will be done by Urology possibly as outpatient. PHYSICAL EXAMINATION: On examination today, blood pressure is 102/69, heart rate is 72 per minute she is afebrile examination of the heart S1, S2. Examination of the lungs, decreased breath sounds at the bases. Abdomen is soft. Morbidly obese. Examination of the lower extremities shows no significant edema. LABS: Show odium of 140, potassium 4.6, chloride 108, BUN 47, creatinine 3.6, hemoglobin 9.0 g/dL. ASSESSMENT: 1. Acute kidney injury, prerenal and secondary to underlying urinary tract infection, currently improved. 2. Solitary kidney with atrophic left kidney. 3. Urinary tract infection. Urine culture growing procidentia stuartii. 4. History of obstructive uropathy with left ureteral stent being followed by Urology for stent exchange. PLAN: Continue to encourage increased oral intake. Follow up as outpatient for CKD. MMODL / IJN: [id number] /
[2018-12-24 16:52] LABS: Glucose,Whole Blood 100 mg/dL (75-99)
[2018-12-24] MEDS: BACLOFEN 10 MG TAB PO PRN (17:39)
[2018-12-24] MEDS: SODIUM CHLORIDE 0.9% 1,000 ML IV SCH ×2 (17:39→20:14)
[2018-12-24 20:08] LABS: Glucose,Whole Blood 136 mg/dL (75-99)
[2018-12-24] MEDS: clonazePAM 0.5 MG TAB PO SCH (20:13)
[2018-12-24] MEDS: MELATONIN 5 MG TABLET PO SCH (20:13)
[2018-12-25] MEDS: HYDROcodone/APAP 7.5-325MG 1 EACH TAB PO PRN ×3 (03:03→18:25)
[2018-12-25] MEDS: BACLOFEN 10 MG TAB PO PRN ×2 (03:03→15:42)
[2018-12-25] MEDS: SODIUM CHLORIDE 0.9% 1,000 ML IV SCH (05:58)
[2018-12-25] MEDS: LEVOTHYROXINE 25 MCG TAB PO SCH (05:58)
[2018-12-25 06:57] LABS: Glucose,Whole Blood 156 mg/dL (75-99)
[2018-12-25 07:27] LABS: Basophils % (A) 1 %; Eosinophils # (A) 0.2 k/uL (0-0.7); Eosinophils % (A) 3 %; HCT 28.3 % (34.0-46.0); HGB 8.5 gm/dL (11.4-16.0); Hypochromasia Slight; Lymphocytes # (A) 1.7 k/uL (1.0-4.8); Lymphocytes % (A) 29 %; MCH 25.6 pg (25.0-35.0); MCHC 30.1 g/dL (31.0-37.0); MCV 85.2 fL (80.0-100.0); Mean Platelet Volume 6.2; Monocytes # (A) 0.3 k/uL (0-1.0); Monocytes % (A) 4 %; Neutrophils # (A) 3.7 k/uL (1.3-7.7); Neutrophils % (A) 62 %; Platelet Count 235 k/uL (150-450); RBC 3.32 m/uL (3.80-5.40); RDW 15.5 % (11.5-15.5); WBC 5.9 k/uL (3.8-10.6)
[2018-12-25 07:39] LABS: Albumin 3.2 g/dL (3.5-5.0); Calcium 8.5 mg/dL (8.4-10.2); Potassium 4.5 mmol/L (3.5-5.1); Total Bilirubin 0.2 mg/dL (0.2-1.3); Total Protein 6.7 g/dL (6.3-8.2)
[2018-12-25] MEDS: INSULIN ASPART (NovoLOG) 100 UNIT/ML VIAL SQ SCH ×4 (09:01→20:29)
[2018-12-25] MEDS: MULTIVITAMINS, THERA 1 EACH TAB PO SCH (09:04)
[2018-12-25] MEDS: HEPARIN SODIUM,PORCINE 5,000 UNIT/ML 1 ML VIAL SQ SCH ×2 (09:04→20:29)
[2018-12-25] MEDS: FAMOTIDINE 20 MG TAB PO SCH (09:04)
[2018-12-25] MEDS: SENNOSIDES 8.6 MG TAB PO SCH ×2 (09:04→20:29)
[2018-12-25] MEDS: FLUoxetine HCL 20 MG CAP PO SCH (09:05)
[2018-12-25] MEDS: ERTAPENEM 0.5 GM in SODIUM CHLORIDE 0.9% 50 ML IVPB SCH (10:06)
--- NOTE | 2018-12-25 10:25 | P.PN ---
Subjective Progress Note Date: 12/25/18 his is a 33-year-old female patient well-known to my services presented to the ER with abnormal kidney enzymes. Patient's creatinine at arrival 4.26 bun 51. Patient has known past medical history of chronic kidney disease secondary to obstructive uropathy with frequent acute episodes. Patient has also history of left ureteral stent placement and atrophic right kidney. Patient reports that she has been feeling well with no complaints. Patient reports that she has been urinating regularly. Patient denies any burning with urination. Patient denies any nausea vomiting or diarrhea. Patient denies any fevers. UA positive for urinary tract infection. Urine culture ordered patient started on Rocephin. Additional medical history includes CVA, myocardial infarction, pancreatitis, chronic pain, anemia of chronic disease, anxiety and depression. At this time urology and nephrology service is consulted. Patient maintained on normal saline at 60. Creatinine is trending down. Patient denies chest pain or shortness of breath. Patient denies nausea vomiting or diarrhea. Patient denies any urinary burning or frequency On 12/20/2018 patient was seen and examined on the medical floor she is alert and oriented 3 in no apparent distress she is still complaining of some pain in her lower back mostly to the left side otherwise she denies any pain there is no fever or chills no headache or dizziness no chest pain no shortness of breath no cough no nausea or vomiting no abdominal pain no diarrhea no burning with urination no frequency or urgency and no hematuria On 12/21/2018 patient was seen and examined on the medical floor she is alert and oriented 3 she is complaining of mild lower back pain otherwise she denies any complaints at this time, there is no fever or chills no headache or dizziness no chest pain no shortness of breath no cough no nausea or vomiting no abdominal pain no diarrhea no burning was urination no frequency or urgency and no hematuria. Telemetry findings reviewed patient in normal sinus rhythm without any arrhythmia telemetry monitoring discontinued. Urine culture is now available, and is positive forProvidencia Stuartii antibiotics were switched to Ertapenem. On 12/22/2018 patient is alert and oriented 3. Patient will likely need IV antibiotics upon discharge per ID. Patient remains on Invanz. Patient denies chest pain or shortness of breath. Patient denies nausea vomiting or diarrhea. Patient denies any urinary burning or frequency creatinine is trending down to 3.44. On 12/23/2018 patient is alert and oriented 3. Midline has been ordered for IV antibiotics. At this time patient denies chest pain or shortness of breath. Patient denies nausea vomiting or diarrhea. Patient denies any urinary burning or frequency. Per urology possible inpatient procedure. On 12/24/2018 patient alert and oriented 3. Midline placed for IV antibiotics. Creatinine increasing to 3.6-147 awaiting urology decision in regards to possible procedure. Patient denies chest pain or shortness of breath. Patient denies nausea vomiting or diarrhea. Patient currently on senna for constipation. On 12/25/2018 patient is alert and oriented 3. Antibiotics continued via midline. Creatinine 2.24 from 3.62, per nursing staff patient is boarded for procedure at 1500 tomorrow. Plavix has been held since 12/24/18. Patient is pain or shortness of breath. Patient is diarrhea. Remains on senna for constipation. No bowel movement reported. Objective - Vital Signs Vital signs: Vital Signs Temp 98.2 F 12/25/18 07:13 Pulse 61 12/25/18 07:45 Resp 18 12/25/18 07:45 BP 102/65 12/25/18 07:13 Pulse Ox 96 12/25/18 07:13 Intake & Output 12/24/18 12/25/18 12/25/18 18:59 06:59 18:59 Intake Total 450 1340 Output Total 650 2200 1800 Balance -200 -860 -1800 Intake: Intake, IV Titration 50 900 Amount Ertapenem 0.5 gm In 50 Sodium Chloride 0.9% 50 ml @ 100 mls/hr IVPB DAILY [facility] Rx#:[id number] Sodium Chloride 0.9% 1, 900 000 ml @ 75 mls/hr IV . [id number] [facility] Rx#:[id number] Oral 400 440 Output: Urine 650 2200 1800 Other: Voiding Method Diaper Incontinent Incontinent Incontinent # Voids 2 2 - Exam In general patient is alert and oriented 3 in no apparent distress HEENT head normocephalic and atraumatic Neck is supple no JVD no goiter no lymphadenopathy Lungs clear to auscultation bilaterally no wheezing or crackles Heart regular rate and rhythm S1-S2, no rub or gallop Abdomen is soft nontender nondistended positive bowel sounds no hepatosplenomegaly Extremities no edema. Patient flaccid to bilateral lower extremities. Neuro no gross focal neurological deficit - Labs CBC & Chem 7: 12/25/18 06:57 12/25/18 06:57 Labs: Abnormal Lab Results - Last 24 Hours (Table) 12/24/18 12/24/18 12/24/18 Range/Units 11:59 16:50 20:07 RBC (3.80-5.40) m/uL Hgb (11.4-16.0) gm/dL Hct (34.0-46.0) % MCHC (31.0-37.0) g/dL Chloride (98-107) mmol/L Carbon Dioxide (22-30) mmol/L BUN (7-17) mg/dL Creatinine (0.52-1.04) mg/dL Glucose (74-99) mg/dL POC Glucose (mg/dL) 139 H 100 H 136 H (75-99) mg/dL AST (14-36) U/L Albumin (3.5-5.0) g/dL 12/25/18 12/25/18 12/25/18 Range/Units 06:54 06:57 06:57 RBC 3.32 L (3.80-5.40) m/uL Hgb 8.5 L (11.4-16.0) gm/dL Hct 28.3 L (34.0-46.0) % MCHC 30.1 L (31.0-37.0) g/dL Chloride 111 H (98-107) mmol/L Carbon Dioxide 19 L (22-30) mmol/L BUN 50 H (7-17) mg/dL Creatinine 3.24 H (0.52-1.04) mg/dL Glucose 144 H (74-99) mg/dL POC Glucose (mg/dL) 156 H (75-99) mg/dL AST 13 L (14-36) U/L Albumin 3.2 L (3.5-5.0) g/dL Assessment and Plan Assessment: 1. Acute on chronic kidney disease with hyperkalemia. Creatinine elevated at 3.75 and bun 40. Potassium 4.5. Creatinine trending down 3.24, though, BUN 50. Normal saline at 75 mL. Nephrology services following 2. History of obstructive uropathy status post cystoscopy with left ureteral stent placement. Per urology services the patient's urinary tract infection should be treated prior to consideration of left ureterscopy with lithotripsy. Per urology services possible left ureteral stent removal along with ureterscopy and laser lithotripsy of any left renal calcui inpatient. Per nursing staff patient is boarded for procedure tomorrow at 1500. Plavix has been held since yesterday 3. Urinary tract infection. Patient started on Rocephin. Urine culture was positive for providencia stuarti, antibiotics were switched to ertapenem. Midline placed for IV antibiotics 4. History of CVA with memory impairment 5. Anemia likely secondary to chronic kidney disease stage III 6. History of myocardial infarction 7. History of pancreatitis 8. History of chronic pain maintained on [place] 9. History of anxiety depression and panic disorder 10. Atrophic right kidney 11. Telemetry findings reviewed so far patient has been in normal sinus rhythm without any arrhythmia will discontinue telemetry monitoring at this time. 12. 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 There is a rigid flexion contracture at the PIP joint as well as a extensor contracture at the DIP joint. This was evaluated by Ortho, in February 2018, who was unable to forcibly extend the PIP joint. Recommended following up with a hand surgeon outpatient, however patient is not interested at this time. Patient does complain of extensive pain in her finger. Baclofen was added. Patient reports some improvement with pain. DVT prophylaxis heparin. GI prophylaxis Pepcid Input from Dr. Rod reviewed continue IV antibiotics Recheck labs and follow-up in a.m. I performed an examination of the patient and discussed their management with the Nurse Practitioner. I have reviewed the Nurse Practitioner's notes and agree with the documented findings and plan of care
--- NOTE | 2018-12-25 10:44 | P.PN ---
Progress Note - Text Progress Note Date: 12/25/18 The patient's serum creatinine level today is 3.24. She remains afebrile. She is receiving ertapenem for her UTI. She is scheduled to undergo surgery tomorrow, consisting of cystoscopy, left ureteral stent removal, left ureteroscopy with laser lithotripsy. The ureteral stent will be replaced if necessary, though I am hopeful he can remain out. Potential risks include anesthesia, bleeding, infection, and ureteral injury.
[2018-12-25 11:30] LABS: Glucose,Whole Blood 100 mg/dL (75-99)
[2018-12-25] MEDS: ACETAMINOPHEN TAB 325 MG TAB PO PRN (15:43)
[2018-12-25 16:45] LABS: Glucose,Whole Blood 138 mg/dL (75-99)
--- NOTE | 2018-12-25 17:26 | PN ---
PROGRESS NOTE Patient is seen for followup for CKD and acute kidney injury. Her renal function has improved. Creatinine is down to 3.24. Patient was maintained on IV fluids. She is currently being treated for urinary tract infection. Patient is scheduled for cystoscopy and left ureteral stent removal tomorrow. She has atrophic right kidney with history of obstructive uropathy involving the left kidney and is currently due for stent exchange. PHYSICAL EXAMINATION: On examination today, blood pressure was 102/65, heart rate 61 per minute. Patient is afebrile. EXAMINATION OF THE HEART: S1 and S2. EXAMINATION OF LUNGS: Bilateral breath sounds are heard. ABDOMEN: Soft, non-tender. Abdomen is obese. Examination of lower extremities shows no significant edema. LABS: Sodium 141, potassium 4.5, chloride 111, BUN 50, creatinine 3.24, hemoglobin 8.5 g/dL. ASSESSMENT: 1. Acute kidney injury associated with underlying infection and prerenal state with some degree of volume depletion, currently improved post IV fluids. IV fluids are discontinued. Patient is scheduled for stent exchange tomorrow. She has history of obstructive uropathy and left ureteral stent placement on her last admission in July. No significant hydronephrosis noted on the current ultrasound. 2. Urinary tract infection with urine culture growing Providencia stuartii, status post antibiotics. PLAN: Discontinue IV fluids after the cystoscopy. Continue to encourage increased oral intake. Repeat labs in a.m. MMODL / IJN: [id number] /
[2018-12-25 20:06] LABS: Glucose,Whole Blood 155 mg/dL (75-99)
[2018-12-25] MEDS: MELATONIN 5 MG TABLET PO SCH (20:29)
[2018-12-25] MEDS: clonazePAM 0.5 MG TAB PO SCH (20:29)
--- NOTE | 2018-12-25 23:55 | PN ---
PROGRESS NOTE DATE OF SERVICE: 12/25/2018 REASON FOR FOLLOWUP: Complicated urinary tract infection. INTERVAL HISTORY: The patient is currently afebrile. The patient is breathing comfortably. The patient denies having any chest pain or cough. No nausea, no vomiting, no abdominal pain or diarrhea. PHYSICAL EXAMINATION: Blood pressure 125/70 with a pulse of 61, temperature 98.4. She is 93% on room air. General description is a middle-aged female lying in bed in no distress. RESPIRATORY SYSTEM: Unlabored breathing. Clear to auscultation anteriorly. HEART: S1, S2. Regular rate and rhythm. ABDOMEN: Soft. No tenderness. LABS: Hemoglobin 8.5, white count of 5.9, BUN of 50, creatinine 3.24. DIAGNOSTIC IMPRESSION AND PLAN: Patient with providencia-positive urine culture in this patient who did have a complicated urinary history with a left ureteral stent. The patient would benefit from a change of the stent while the patient is on antibiotic therapy. The patient is currently on Invanz; to continue while monitoring clinical course closely. Continue with supportive care. MMODL / IJN: [id number] /
[2018-12-26] MEDS: HYDROcodone/APAP 7.5-325MG 1 EACH TAB PO PRN ×3 (05:55→22:13)
[2018-12-26] MEDS: LEVOTHYROXINE 25 MCG TAB PO SCH (05:56)
--- NOTE | 2018-12-26 06:20 | CONS ---
CONSULTATION DATE OF SERVICE: 12/19/2018 This is re-dictation of the consult as it was not complete. The patient is a 33-year-old female with history of chronic kidney disease and solitary functioning kidney with previous obstructive uropathy and need for left ureteral stent on her last admission in July of 2018. Patient has an atrophic left kidney. She was admitted to the hospital with worsening labs. Patient is not sure if she had any significant symptoms. Blood pressure was not significantly low. The patient's serum creatinine was 4.2 mg/dL on admission. She was scheduled to have stents exchanged. However, the patient did not follow up as outpatient. She is currently maintained on antibiotics. Her UA is suggestive of UTI. She remains incontinent. PAST MEDICAL HISTORY: Significant for CKD, history of UTIs, obstructive uropathy with atrophic right kidney, left hydronephrosis, history of CVA, history of AL, morbid obesity. PAST SURGICAL HISTORY: Cholecystectomy, cystoscopy with left ureteral stent placement in July of 2018 as well as February of 2018. history of prolonged hospitalization and coma in 2014. SOCIAL HISTORY: Negative for smoking, drug abuse or alcohol abuse. MEDICATIONS: Medications at home prior to admission included Plavix, vitamin D2, Prozac, Synthroid, melatonin, Senokot, Mag-Ox, [place], magnesium, potassium, Klonopin. ALLERGIES: Allergies include IBUPROFEN, ASPIRIN, ZOLOFT, AMBIEN, NEURONTIN. PHYSICAL EXAMINATION: On examination, patient is comfortable, awake. She is not in any acute distress. The patient is not able to give a detailed history. Blood pressure was 120/81, heart rate about 70 per minute. Patient is afebrile. EXAMINATION OF THE HEART: S1 and S2. EXAMINATION OF THE LUNGS: Bilateral breath sounds are heard. Abdomen is soft, nontender. Examination of lower extremities shows no significant edema. Contracture is noted in the left upper extremity, mainly in the hand. LABS: Labs show sodium 140, potassium 5.2, BUN 49, creatinine 4.1 mg/dL, hemoglobin 8.8 g/dL. UA shows 2+ protein, trace glucose, large leukocyte esterase, WBCs 163, WBC clumps were noted. ASSESSMENT: 1. Acute kidney injury, rule out obstructive uropathy with previous history of ureteral stent placement July of 2018. Previous creatinine 2.4 on 11/25/2018. The patient has a solitary kidney with right renal atrophy. We will check imaging of the kidneys and consult Urology. 2. Urinary tract infection. Culture is pending. Patient is maintained on empiric antibiotics. 3. Hyperkalemia associated with acute kidney injury. 4. Anemia of chronic disease, rule out iron deficiency. PLAN: Check ultrasound of the kidneys. Continue IV fluids. Continue empiric antibiotics. Consult Urology. Check post-void residual and repeat labs in a.m. Continue to avoid nephrotoxic agents. MMODL / IJN: [id number] /
[2018-12-26 07:02] LABS: Glucose,Whole Blood 237 mg/dL (75-99)
[2018-12-26] MEDS: INSULIN ASPART (NovoLOG) 100 UNIT/ML VIAL SQ SCH ×4 (08:03→21:49)
[2018-12-26 08:41] LABS: Basophils # (A) 0.1 k/uL (0-0.2); Basophils % (A) 1 %; Eosinophils # (A) 0.2 k/uL (0-0.7); Eosinophils % (A) 3 %; HCT 27.5 % (34.0-46.0); HGB 8.4 gm/dL (11.4-16.0); Hypochromasia Slight; Lymphocytes # (A) 1.3 k/uL (1.0-4.8); Lymphocytes % (A) 24 %; MCH 26.3 pg (25.0-35.0); MCHC 30.7 g/dL (31.0-37.0); MCV 85.8 fL (80.0-100.0); Mean Platelet Volume 6.6; Monocytes # (A) 0.2 k/uL (0-1.0); Monocytes % (A) 4 %; Neutrophils # (A) 3.7 k/uL (1.3-7.7); Neutrophils % (A) 67 %; Platelet Count 233 k/uL (150-450); RDW 15.8 % (11.5-15.5); WBC 5.6 k/uL (3.8-10.6)
[2018-12-26] MEDS: FAMOTIDINE 20 MG TAB PO SCH (08:53)
[2018-12-26] MEDS: SENNOSIDES 8.6 MG TAB PO SCH ×2 (08:53→21:49)
[2018-12-26] MEDS: MULTIVITAMINS, THERA 1 EACH TAB PO SCH (08:53)
[2018-12-26] MEDS: HEPARIN SODIUM,PORCINE 5,000 UNIT/ML 1 ML VIAL SQ SCH ×2 (08:53→21:49)
[2018-12-26 08:56] LABS: Albumin 3.1 g/dL (3.5-5.0); Calcium 8.2 mg/dL (8.4-10.2); Potassium 4.1 mmol/L (3.5-5.1); Total Bilirubin 0.1 mg/dL (0.2-1.3); Total Protein 6.5 g/dL (6.3-8.2)
[2018-12-26] MEDS ORDERED: ERGOCALCIFEROL 50,000 UNIT CAP PO SCH (09:00)
[2018-12-26] MEDS ORDERED: LACTULOSE 20 GM/30 ML CUP PO ONE (09:49)
[2018-12-26] MEDS: FLUoxetine HCL 20 MG CAP PO SCH (09:50)
[2018-12-26] MEDS: SODIUM CHLORIDE 0.9% 1,000 ML IV SCH ×2 (09:51→17:59)
[2018-12-26] MEDS: ERTAPENEM 0.5 GM in SODIUM CHLORIDE 0.9% 50 ML IVPB SCH (09:52)
--- NOTE | 2018-12-26 09:54 | P.PN ---
Subjective Progress Note Date: 12/26/18 his is a 33-year-old female patient well-known to my services presented to the ER with abnormal kidney enzymes. Patient's creatinine at arrival 4.26 bun 51. Patient has known past medical history of chronic kidney disease secondary to obstructive uropathy with frequent acute episodes. Patient has also history of left ureteral stent placement and atrophic right kidney. Patient reports that she has been feeling well with no complaints. Patient reports that she has been urinating regularly. Patient denies any burning with urination. Patient denies any nausea vomiting or diarrhea. Patient denies any fevers. UA positive for urinary tract infection. Urine culture ordered patient started on Rocephin. Additional medical history includes CVA, myocardial infarction, pancreatitis, chronic pain, anemia of chronic disease, anxiety and depression. At this time urology and nephrology service is consulted. Patient maintained on normal saline at 60. Creatinine is trending down. Patient denies chest pain or shortness of breath. Patient denies nausea vomiting or diarrhea. Patient denies any urinary burning or frequency On 12/20/2018 patient was seen and examined on the medical floor she is alert and oriented 3 in no apparent distress she is still complaining of some pain in her lower back mostly to the left side otherwise she denies any pain there is no fever or chills no headache or dizziness no chest pain no shortness of breath no cough no nausea or vomiting no abdominal pain no diarrhea no burning with urination no frequency or urgency and no hematuria On 12/21/2018 patient was seen and examined on the medical floor she is alert and oriented 3 she is complaining of mild lower back pain otherwise she denies any complaints at this time, there is no fever or chills no headache or dizziness no chest pain no shortness of breath no cough no nausea or vomiting no abdominal pain no diarrhea no burning was urination no frequency or urgency and no hematuria. Telemetry findings reviewed patient in normal sinus rhythm without any arrhythmia telemetry monitoring discontinued. Urine culture is now available, and is positive forProvidencia Stuartii antibiotics were switched to Ertapenem. On 12/22/2018 patient is alert and oriented 3. Patient will likely need IV antibiotics upon discharge per ID. Patient remains on Invanz. Patient denies chest pain or shortness of breath. Patient denies nausea vomiting or diarrhea. Patient denies any urinary burning or frequency creatinine is trending down to 3.44. On 12/23/2018 patient is alert and oriented 3. Midline has been ordered for IV antibiotics. At this time patient denies chest pain or shortness of breath. Patient denies nausea vomiting or diarrhea. Patient denies any urinary burning or frequency. Per urology possible inpatient procedure. On 12/24/2018 patient alert and oriented 3. Midline placed for IV antibiotics. Creatinine increasing to 3.6-147 awaiting urology decision in regards to possible procedure. Patient denies chest pain or shortness of breath. Patient denies nausea vomiting or diarrhea. Patient currently on senna for constipation. On 12/25/2018 patient is alert and oriented 3. Antibiotics continued via midline. Creatinine 3.24 from 3.62, per nursing staff patient is boarded for procedure at 1500 tomorrow. Plavix has been held since 12/24/18. Patient is pain or shortness of breath. Patient is diarrhea. Remains on senna for constipation. No bowel movement reported. On 12/26/2018 patient's alert and oriented 3. Creatinine improving to 3.00 and bun 44. Patient remains on IV fluids. Plans for cystoscopy with left ureteral stent removal today per Dr. Willson. Lactulose has been ordered for patient's constipation. Patient denies chest pain or shortness breath. Patient denies nausea vomiting or diarrhea patient denies any urinary burning or frequency Objective - Vital Signs Vital signs: Vital Signs Temp 98.1 F 12/26/18 07:32 Pulse 72 12/26/18 07:32 Resp 18 12/26/18 07:32 BP 100/67 12/26/18 07:32 Pulse Ox 96 12/26/18 07:32 Intake & Output 12/25/18 12/26/18 12/26/18 18:59 06:59 18:59 Intake Total 200 Output Total 4349 2074 Balance -4349 Intake: Oral 200 Output: Urine 4349 2074 Other: Voiding Method Incontinent Incontinent Incontinent # Voids 2 - Exam In general patient is alert and oriented 3 in no apparent distress HEENT head normocephalic and atraumatic Neck is supple no JVD no goiter no lymphadenopathy Lungs clear to auscultation bilaterally no wheezing or crackles Heart regular rate and rhythm S1-S2, no rub or gallop Abdomen is soft nontender nondistended positive bowel sounds no hepatosplenomegaly Extremities no edema. Patient flaccid to bilateral lower extremities. Neuro no gross focal neurological deficit - Labs CBC & Chem 7: 12/26/18 07:18 12/26/18 07:18 Labs: Abnormal Lab Results - Last 24 Hours (Table) 12/25/18 12/25/18 12/25/18 Range/Units 11:28 16:44 20:04 RBC (3.80-5.40) m/uL Hgb (11.4-16.0) gm/dL Hct (34.0-46.0) % MCHC (31.0-37.0) g/dL RDW (11.5-15.5) % Chloride (98-107) mmol/L Carbon Dioxide (22-30) mmol/L BUN (7-17) mg/dL Creatinine (0.52-1.04) mg/dL Glucose (74-99) mg/dL POC Glucose (mg/dL) 100 H 138 H 155 H (75-99) mg/dL Calcium (8.4-10.2) mg/dL Total Bilirubin (0.2-1.3) mg/dL Albumin (3.5-5.0) g/dL 12/26/18 12/26/18 12/26/18 Range/Units 06:57 07:18 07:18 RBC 3.20 L (3.80-5.40) m/uL Hgb 8.4 L (11.4-16.0) gm/dL Hct 27.5 L (34.0-46.0) % MCHC 30.7 L (31.0-37.0) g/dL RDW 15.8 H (11.5-15.5) % Chloride 112 H (98-107) mmol/L Carbon Dioxide 18 L (22-30) mmol/L BUN 44 H (7-17) mg/dL Creatinine 3.00 H (0.52-1.04) mg/dL Glucose 227 H (74-99) mg/dL POC Glucose (mg/dL) 237 H (75-99) mg/dL Calcium 8.2 L (8.4-10.2) mg/dL Total Bilirubin 0.1 L (0.2-1.3) mg/dL Albumin 3.1 L (3.5-5.0) g/dL Assessment and Plan Assessment: 1. Acute on chronic kidney disease with hyperkalemia. Creatinine elevated at 3.75 and bun 40. Potassium 4.5. Creatinine trending down 3.24, though, BUN 50. Normal saline at 75 mL. Nephrology services following 2. History of obstructive uropathy status post cystoscopy with left ureteral stent placement. Per urology services the patient's urinary tract infection s hould be treated prior to consideration of left ureterscopy with lithotripsy. Per urology services possible left ureteral stent removal along with ureterscopy and laser lithotripsy of any left renal calcui inpatient. Plavix has been held since yesterday. Plans for cystoscopy with left ureteral stent removal today 12/26/[address] Willson. 3. Urinary tract infection. Patient started on Rocephin. Urine culture was positive for providencia stuarti, antibiotics were switched to ertapenem. Midline placed for IV antibiotics 4. History of CVA with memory impairment 5. Anemia likely secondary to chronic kidney disease stage III 6. History of myocardial infarction 7. History of pancreatitis 8. History of chronic pain maintained on Unity 9. History of anxiety depression and panic disorder 10. Atrophic right kidney 11. Telemetry findings reviewed so far patient has been in normal sinus rhythm without any arrhythmia will discontinue telemetry monitoring at this time. 12. 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 There is a rigid flexion contracture at the PIP joint as well as a extensor contracture at the DIP joint. This was evaluated by Ortho, in February 2018, who was unable to forcibly extend the PIP joint. Recommended following up with a hand surgeon outpatient, however patient is not interested at this time. Patient does com plain of extensive pain in her finger. Baclofen was added. Patient reports some improvement with pain. 13. Constipation. Patient remains on Senna. Lactulose added DVT prophylaxis heparin. GI prophylaxis Pepcid I performed an examination of the patient and discussed their management with jose beaulieu Nurse Practitioner. I have reviewed the Nurse Practitioner's notes and agree with the documented findings and plan of care
--- NOTE | 2018-12-26 11:12 | P.PN ---
Subjective Patient is seen in follow-up for acute kidney injury on chronic kidney disease. Renal function has been gradually improving. Creatinine 3.0 today. She is maintained on normal saline at 75 mL an hour. She is currently being treated for urinary tract infection. She is scheduled for cystoscopy, left ureteroscopy and stent removal today. She has been voiding. Vital signs are stable. General: The patient appeared well nourished and normally developed. HEENT: Head exam is unremarkable. Neck is without jugular venous distension. LUNGS: Lungs are clear to auscultation and percussion. Breath sounds decreased. HEART: Rate and Rhythm are regular. First and second heart sounds normal. No murmurs, rubs or gallops. ABDOMEN: Abdominal exam reveals normal bowel sounds. Non-tender and non- distended. No evidence of peritonitis. EXTREMITITES: No clubbing, cyanosis, or edema. Objective - Vital Signs Vital signs: Vital Signs Temp 98.1 F 12/26/18 07:32 Pulse 72 12/26/18 07:32 Resp 18 12/26/18 07:32 BP 100/67 12/26/18 07:32 Pulse Ox 96 12/26/18 07:32 Intake & Output 12/25/18 12/26/18 12/26/18 18:59 06:59 18:59 Intake Total 200 Output Total 4350 2075 150 Balance -4350 -1875 -150 Intake: Oral 200 Output: Urine 4350 2075 150 Other: Voiding Method Incontinent Incontinent Incontinent # Voids 2 - Labs CBC & Chem 7: 12/26/18 07:18 12/26/18 07:18 Labs: Abnormal Lab Results - Last 24 Hours (Table) 12/25/18 12/25/18 12/25/18 Range/Units 11:28 16:44 20:04 RBC (3.80-5.40) m/uL Hgb (11.4-16.0) gm/dL Hct (34.0-46.0) % MCHC (31.0-37.0) g/dL RDW (11.5-15.5) % Chloride (98-107) mmol/L Carbon Dioxide (22-30) mmol/L BUN (7-17) mg/dL Creatinine (0.52-1.04) mg/dL Glucose (74-99) mg/dL POC Glucose (mg/dL) 100 H 138 H 155 H (75-99) mg/dL Calcium (8.4-10.2) mg/dL Total Bilirubin (0.2-1.3) mg/dL Albumin (3.5-5.0) g/dL 12/26/18 12/26/18 12/26/18 Range/Units 06:57 07:18 07:18 RBC 3.20 L (3.80-5.40) m/uL Hgb 8.4 L (11.4-16.0) gm/dL Hct 27.5 L (34.0-46.0) % MCHC 30.7 L (31.0-37.0) g/dL RDW 15.8 H (11.5-15.5) % Chloride 112 H (98-107) mmol/L Carbon Dioxide 18 L (22-30) mmol/L BUN 44 H (7-17) mg/dL Creatinine 3.00 H (0.52-1.04) mg/dL Glucose 227 H (74-99) mg/dL POC Glucose (mg/dL) 237 H (75-99) mg/dL Calcium 8.2 L (8.4-10.2) mg/dL Total Bilirubin 0.1 L (0.2-1.3) mg/dL Albumin 3.1 L (3.5-5.0) g/dL Assessment and Plan Plan: Assessment: 1. Acute kidney injury mostly prerenal secondary to infection. Improving with IV hydration. Creatinine 3.0 today. 2. Chronic kidney disease stage III with baseline creatinine near 2 secondary to obstructive uropathy and solitary functioning kidney. 3. Right renal atrophy. 4. UTI urine culture positive for Providencia. Maintained on IV antibiotics. 5. Metabolic acidosis secondary to acute kidney injury and IV fluids. 6. Anemia of chronic kidney disease. Rule out iron deficiency. 7. History of obstructive uropathy with left ureteral stent. Scheduled for cystoscopy today. Plan: Maintain normal saline at 75 mL an hour. Check iron studies. Add oral sodium bicarbonate. Repeat electrolytes in the morning.
[2018-12-26 11:51] LABS: Glucose,Whole Blood 112 mg/dL (75-99)
--- NOTE | 2018-12-26 13:59 | PN ---
PROGRESS NOTE DATE OF SERVICE: 12/26/2018 REASON FOR FOLLOWUP VISIT: Complicated urinary tract infection. INTERVAL HISTORY: The patient is currently afebrile. The patient is breathing comfortably. Denies having any chest pain. No cough. No nausea, vomiting, abdominal pain, or any diarrhea. She is scheduled for a stent replacement this afternoon. PHYSICAL EXAMINATION: Blood pressure 100/57, pulse of 72, temperature 98.1, she is 96% on room air. General description is a middle-aged female, lying in bed in no distress. RESPIRATORY SYSTEM: Unlabored breathing, clear to auscultation anteriorly. HEART: S1, S2. Regular rate and rhythm. ABDOMEN: Soft, no tenderness. LABS: Hemoglobin 8.4, white count of 5.3, BUN of 44, creatinine 3.0. DIAGNOSTIC IMPRESSION AND PLAN: Patient with a complicated urinary tract infection with Providencia, resistant pathogen and this patient did have a stent placement today. Will continue perioperatively with Invanz and monitor clinical course closely. Continue supportive care. MMODL / IJN: [id number] /
[2018-12-26 14:28] VITALS: BMI 42.9
[2018-12-26] MEDS ORDERED: IV FLUID CONTINUATION 1,000 ML IV ONE (14:40)
[2018-12-26 15:03] LABS: Glucose,Whole Blood 100 mg/dL (75-99)
[2018-12-26] MEDS ORDERED: MIDAZOLAM 2 MG/2 ML VIAL ONE (15:28)
[2018-12-26] MEDS ORDERED: GLYCOPYRROLATE 0.2 MG/ML 2 ML VIAL ONE (15:28)
[2018-12-26] MEDS ORDERED: fentaNYL (PF) 50 MCG/ML 2 ML AMP ONE (15:28)
[2018-12-26] MEDS ORDERED: PROPOFOL 10 MG/ML 20 ML VIAL IV ONE (15:28)
[2018-12-26] MEDS ORDERED: NEOSTIGMINE 1 MG/ML 10 ML VIAL ONE (15:28)
[2018-12-26] MEDS ORDERED: ROCURONIUM BROMIDE 10 MG/ML 10 ML VIAL IV ONE (15:28)
[2018-12-26 16:11] LABS: % Iron Saturation 23.24 (12.00-45.00); Ferritin 179.7 ng/mL (10.0-291.0)
--- NOTE | 2018-12-26 16:49 | P.OP ---
Date of Procedure: 12/26/18 Preoperative Diagnosis: Left renal calculi Postoperative Diagnosis: Same Procedure(s) Performed: Cystoscopy, left ureteroscopy, left ureteral stent change Anesthesia: GUIA Surgeon: Mac Charles Estimated Blood Loss (ml): 5 IV fluids (ml): 400 Pathology: none sent Condition: stable Disposition: PACU Indications for Procedure: The patient is a 33-year-old female with chronic kidney disease. She was originally discovered to have acute renal failure in February 2018. Creatinine at that time was 15.42. She has an atrophic right kidney and her left kidney was hydronephrotic secondary to an obstructive 8x12 mm calculus. She underwent placement of a left double-J catheter. Renal function improved and her creatinine was 1.45 later in February. She did not follow up and was admitted in July 2018 due to acute renal failure with a creatinine of 17.72. She was treated with emergency hemodialysis and underwent replacement of the double-J catheter on 07/17/18. Her creatinine fell to 1.45 later in July. It was intended that left ureteroscopy and lithotripsy be performed for removal of the calculus and this was scheduled once in early September and again in late September but both surgeries were eventually canceled. The patient refused to come to the office on 10/09 for a follow-up visit. She was recently admitted with renal failure. Operative Findings: Occluded left ureteral stent. Left pyonephrosis. Description of Procedure: The patient was taken to the operating room and placed in the dorsolithotomy position, with legs supported in Rocky stirrups. The external genitalia was prepped and draped sterilely. The 30 lens was used to introduce the 22-Togolese Stortz cystoscopic sheath through the urethra and into the bladder under direct vision. The bladder was examined in its entirety. No tumors or foreign bodies were seen. The distal end of the left ureteral stent was grasped and removed along with the cystoscope. A 0.038 inch Glidewire was passed through the stent, but this met resistance within the midportion of the stent due to occlusion. The cystoscope was reinserted into the bladder, and the Glidewire was passed through the left ureteral orifice alongside the stent and up to the left renal pelvis. The stent was removed, and an 11/13-Togolese ureteral access catheter was passed over the wire, up to the proximal ureter. Purulent urine was noted to drain through the ureteral access catheter sheath. The Olympus flexible ureteroscope was passed through the ureteral access catheter sheath, but visualization was poor due to fluffy debris within the left renal pelvis. No calculi were seen. The ureteroscope was removed. The Glidewire was passed through the ureteral access catheter sheath, which was removed, and the Glidewire was backloaded into the cystoscope, which was passed into the bladder. A 24 cm, 6-Togolese double-J ureteral stent was placed over the wire. Proper stent positioning was verified fluoroscopically and endoscopically. The bladder was emptied and the cystoscope removed. The patient tolerated the procedure well was taken to the recovery room in stable condition.
[2018-12-26] MEDS: SODIUM BICARBONATE TAB 650 MG TAB PO SCH ×2 (17:34→21:49)
[2018-12-26 18:12] LABS: Glucose,Whole Blood 108 mg/dL (75-99)
[2018-12-26 21:27] LABS: Glucose,Whole Blood 134 mg/dL (75-99)
[2018-12-26] MEDS: clonazePAM 0.5 MG TAB PO SCH (21:49)
[2018-12-26] MEDS: MELATONIN 5 MG TABLET PO SCH (21:49)
[2018-12-26] MEDS: BACLOFEN 10 MG TAB PO PRN (21:50)
[2018-12-27] MEDS: BACLOFEN 10 MG TAB PO PRN ×2 (04:50→22:19)
[2018-12-27] MEDS: SODIUM CHLORIDE 0.9% 1,000 ML IV SCH (04:52)
[2018-12-27] MEDS: LEVOTHYROXINE 25 MCG TAB PO SCH (06:01)
[2018-12-27] MEDS: HYDROcodone/APAP 7.5-325MG 1 EACH TAB PO PRN ×3 (06:01→21:02)
[2018-12-27 07:00] LABS: Glucose,Whole Blood 186 mg/dL (75-99)
[2018-12-27 07:36] LABS: Anisocytosis Slight; Basophils % (A) 1 %; Eosinophils # (A) 0.1 k/uL (0-0.7); Eosinophils % (A) 2 %; HCT 28.1 % (34.0-46.0); HGB 8.5 gm/dL (11.4-16.0); Hypochromasia Moderate; Lymphocytes # (A) 1.6 k/uL (1.0-4.8); Lymphocytes % (A) 28 %; MCH 26.3 pg (25.0-35.0); MCHC 30.2 g/dL (31.0-37.0); MCV 86.9 fL (80.0-100.0); Mean Platelet Volume 6.4; Monocytes # (A) 0.3 k/uL (0-1.0); Monocytes % (A) 5 %; Neutrophils # (A) 3.7 k/uL (1.3-7.7); Neutrophils % (A) 64 %; Platelet Count 228 k/uL (150-450); RBC 3.23 m/uL (3.80-5.40); RDW 16.3 % (11.5-15.5); WBC 5.8 k/uL (3.8-10.6)
[2018-12-27 08:02] LABS: Albumin 3.1 g/dL (3.5-5.0); Calcium 8.4 mg/dL (8.4-10.2); Magnesium 2.2 mg/dL (1.6-2.3); Potassium 4.1 mmol/L (3.5-5.1); Total Bilirubin 0.2 mg/dL (0.2-1.3); Total Protein 6.5 g/dL (6.3-8.2)
[2018-12-27] MEDS: ERTAPENEM 0.5 GM in SODIUM CHLORIDE 0.9% 50 ML IVPB SCH (08:21)
[2018-12-27] MEDS: MULTIVITAMINS, THERA 1 EACH TAB PO SCH (08:21)
[2018-12-27] MEDS: HEPARIN SODIUM,PORCINE 5,000 UNIT/ML 1 ML VIAL SQ SCH ×2 (08:21→21:03)
[2018-12-27] MEDS: SENNOSIDES 8.6 MG TAB PO SCH ×2 (08:21→21:02)
[2018-12-27] MEDS: SODIUM BICARBONATE TAB 650 MG TAB PO SCH ×2 (08:21→21:02)
[2018-12-27] MEDS: FAMOTIDINE 20 MG TAB PO SCH (08:21)
[2018-12-27] MEDS: FLUoxetine HCL 20 MG CAP PO SCH (08:21)
[2018-12-27] MEDS: INSULIN ASPART (NovoLOG) 100 UNIT/ML VIAL SQ SCH ×4 (08:22→21:03)
--- NOTE | 2018-12-27 09:11 | P.PN ---
Subjective Progress Note Date: 12/27/18 Principal diagnosis: This is a 33-year-old female, seen in consultation because of acute kidney injury and chronic kidney disease. She is known with coma supposedly for. Of 1 year in 2014 and mostly bedridden. Additionally she has had obstructive nephropathy with the left kidney hydronephrosis with an obstructive calculus but she has not followed up except for having stents placed and has not had lithotripsy done in the past. This was in February 2018. She had transient h emodialysis in the past. She has had in the past acute kidney injury with creatinine of 17 had emergency hemodialysis and then underwent double-J catheter placement on 07/17/2018 creatinine came down to 1.45 in July 2018. She was supposed to have ureteroscopy and lithotripsy for removal of catheter in September but did not keep her appointments multiple times She has an atrophic right kidney at 8.9 cm by a ultrasound and a 10.3 cm left kidney with multiple nonobstructive kidney stones currently. This admission was 4 acute renal failure. On 12/26/2018 yesterday she underwent surgery and cystoscopy left ureteroscopy and left ureteral stent change. No stone was noted presumably she has passed the stone Currently she is feeling fairly well denies any complaints at all. She is eating well no nausea vomiting diarrhea abdominal pain fever chills cough abdominal pain. No back pain. Objective - Vital Signs Vital signs: Vital Signs Temp 97.6 F 12/27/18 07:00 Pulse 60 12/27/18 07:00 Resp 12 12/27/18 07:00 BP 116/75 12/27/18 07:00 Pulse Ox 95 12/27/18 07:00 Intake & Output 12/26/18 12/27/18 12/27/18 18:59 06:59 18:59 Intake Total 500 400 Output Total 580 1050 Balance -80 -650 Weight 113.398 kg Intake: IV 500 Intake, IV Titration 150 Amount Sodium Chloride 0.9% 1, 150 000 ml @ 75 mls/hr IV . [id number] WILDER Rx#:[id number] Oral 250 Output: Urine 575 1050 Estimated Blood Loss 5 Other: Voiding Method Incontinent # Voids 1 On examination she is an obese female of stated age She is comfortable lying in bed HEENT exam no JVP neck is supple no facial asymmetry Lungs are clear to auscultation good air entry bilaterally Heart sounds are unremarkable for any murmur rub gallop Abdomen soft nontender Extremity examination no edema She has bilateral foot drops. Neurologically awake alert oriented but has generalized weakness in all her muscles - Labs CBC & Chem 7: 12/27/18 06:40 12/27/18 06:40 Labs: Abnormal Lab Results - Last 24 Hours (Table) 12/26/18 12/26/18 12/26/18 Range/Units 07:18 07:18 11:35 RBC (3.80-5.40) m/uL Hgb (11.4-16.0) gm/dL Hct (34.0-46.0) % MCHC (31.0-37.0) g/dL RDW (11.5-15.5) % Chloride 112 H (98-107) mmol/L Carbon Dioxide 18 L (22-30) mmol/L BUN 44 H (7-17) mg/dL Creatinine 3.00 H (0.52-1.04) mg/dL Glucose 227 H (74-99) mg/dL POC Glucose (mg/dL) 112 H (75-99) mg/dL Calcium 8.2 L (8.4-10.2) mg/dL Iron 43 L (50-170) ug/dL TIBC 185 L (228-460) ug/dL Total Bilirubin 0.1 L (0.2-1.3) mg/dL Albumin 3.1 L (3.5-5.0) g/dL 12/26/18 12/26/18 12/26/18 Range/Units 14:57 18:11 21:16 RBC (3.80-5.40) m/uL Hgb (11.4-16.0) gm/dL Hct (34.0-46.0) % MCHC (31.0-37.0) g/dL RDW (11.5-15.5) % Chloride (98-107) mmol/L Carbon Dioxide (22-30) mmol/L BUN (7-17) mg/dL Creatinine (0.52-1.04) mg/dL Glucose (74-99) mg/dL POC Glucose (mg/dL) 100 H 108 H 134 H (75-99) mg/dL Calcium (8.4-10.2) mg/dL Iron (50-170) ug/dL TIBC (228-460) ug/dL Total Bilirubin (0.2-1.3) mg/dL Albumin (3.5-5.0) g/dL 12/27/18 12/27/18 12/27/18 Range/Units 06:40 06:40 06:58 RBC 3.23 L (3.80-5.40) m/uL Hgb 8.5 L (11.4-16.0) gm/dL Hct 28.1 L (34.0-46.0) % MCHC 30.2 L (31.0-37.0) g/dL RDW 16.3 H (11.5-15.5) % Chloride 114 H (98-107) mmol/L Carbon Dioxide 18 L (22-30) mmol/L BUN 37 H (7-17) mg/dL Creatinine 2.95 H (0.52-1.04) mg/dL Glucose 172 H (74-99) mg/dL POC Glucose (mg/dL) 186 H (75-99) mg/dL Calcium (8.4-10.2) mg/dL Iron (50-170) ug/dL TIBC (228-460) ug/dL Total Bilirubin (0.2-1.3) mg/dL Albumin 3.1 L (3.5-5.0) g/dL Assessment and Plan Assessment: 1. Acute kidney injury secondary to combination volume depletion, urinary tract infection. Creatinine peaked at 5.07 dated 12/16/2018 has improved to 2.95 this morning. She is on IV fluids and antibiotics. 2. Chronic kidney disease secondary to an atrophied right kidney, possibly from previous stones and left hydronephrosis in the past but none during this admission. Baseline creatinine is fluctuating, at its best it is is 1.98 as of 08/26/2018. 3. History of frequent hydronephrosis and status post placement of multiple stents in the left kidney. Last stent was on 12/26/2018 yesterday. In the past has had obstructive nephropathy and has not followed up might have resulted in chronic kidney disease. 4. Urine tract infection with probable dementia on Invanz 5. Metabolic acidosis secondary to acute kidney injury and chronic kidney disea se on sodium bicarb orally) 18 stable. 6. Anemia of chronic kidney disease with hemoglobin 8.5 stable. Iron saturation is 23% dated 12/26/2018. 7. History of CVA and prolonged coma for 1 year in 2015 Recommendation 1. Maintain IV fluids for another 24 hours. 2. Maintain oral bicarbonate expected to slowly improve. 3. Maintain IV antibiotics per infectious disease 4. Start darbepoetin 40 g darbepoetin 40 g every 7 days
[2018-12-27] MEDS ORDERED: DARBEPOETIN ALFA 40 MCG/0.4 ML SYRINGE SQ SCH (09:15)
--- NOTE | 2018-12-27 11:00 | P.PN ---
Progress Note - Text Progress Note Date: 12/27/18 Ms. Christensen reports minimal discomfort. She states that her condition is essentially unchanged. I explained to her that her ureteral stent was noted to be occluded, and that purulence was seen within the left renal pelvis. Therefore, the planned procedure (laser lithotripsy) could not be performed. I hope to reschedule the procedure within the next month, as I am confident in that timeframe that the stent will be functioning well. I explained to her that it will be necessary to obtain a preoperative urine culture, and that outpatient IV antibiotics may be required to sterilize the urine preoperatively. Please notify me if I can be of any further assistance during this hospitalization.
[2018-12-27 11:49] LABS: Glucose,Whole Blood 148 mg/dL (75-99)
--- NOTE | 2018-12-27 14:03 | P.PN ---
Subjective Progress Note Date: 12/27/18 This is a 33-year-old female patient well-known to my services presented to the ER with abnormal kidney enzymes. Patient's creatinine at arrival 4.26 bun 51. Patient has known past medical history of chronic kidney disease secondary to obstructive uropathy with frequent acute episodes. Patient has also history of left ureteral stent placement and atrophic right kidney. Patient reports that she has been feeling well with no complaints. Patient reports that she has been urinating regularly. Patient denies any burning with urination. Patient denies any nausea vomiting or diarrhea. Patient denies any fevers. UA positive for urinary tract infection. Urine culture ordered patient started on Rocephin. Additional medical history includes CVA, myocardial infarction, pancreatitis, chronic pain, anemia of chronic disease, anxiety and depression. At this time urology and nephrology service is consulted. Patient maintained on normal saline at 60. Creatinine is trending down. Patient denies chest pain or shortness of breath. Patient denies nausea vomiting or diarrhea. Patient denies any urinary burning or frequency On 12/20/2018 patient was seen and examined on the medical floor she is alert and oriented 3 in no apparent distress she is still complaining of some pain in her lower back mostly to the left side otherwise she denies any pain there is no fever or chills no headache or dizziness no chest pain no shortness of breath no cough no nausea or vomiting no abdominal pain no diarrhea no burning with urination no frequency or urgency and no hematuria On 12/21/2018 patient was seen and examined on the medical floor she is alert and oriented 3 she is complaining of mild lower back pain otherwise she denies any complaints at this time, there is no fever or chills no headache or dizziness no chest pain no shortness of breath no cough no nausea or vomiting no abdominal pain no diarrhea no burning was urination no frequency or urgency and no hematuria. Telemetry findings reviewed patient in normal sinus rhythm without any arrhythmia telemetry monitoring discontinued. Urine culture is now available, and is positive forProvidencia Stuartii antibiotics were switched to Ertapenem. On 12/22/2018 patient is alert and oriented 3. Patient will likely need IV antibiotics upon discharge per ID. Patient remains on Invanz. Patient denies chest pain or shortness of breath. Patient denies nausea vomiting or diarrhea. Patient denies any urinary burning or frequency creatinine is trending down to 3.44. On 12/23/2018 patient is alert and oriented 3. Midline has been ordered for IV antibiotics. At this time patient denies chest pain or shortness of breath. Patient denies nausea vomiting or diarrhea. Patient denies any urinary burning or frequency. Per urology possible inpatient procedure. On 12/24/2018 patient alert and oriented 3. Midline placed for IV antibiotics. Creatinine increasing to 3.6-147 awaiting urology decision in regards to possib le procedure. Patient denies chest pain or shortness of breath. Patient denies nausea vomiting or diarrhea. Patient currently on senna for constipation. On 12/25/2018 patient is alert and oriented 3. Antibiotics continued via midline. Creatinine 3.24 from 3.62, per nursing staff patient is boarded for procedure at 1500 tomorrow. Plavix has been held since 12/24/18. Patient is pain or shortness of breath. Patient is diarrhea. Remains on senna for constipation. No bowel movement reported. On 12/26/2018 patient's alert and oriented 3. Creatinine improving to 3.00 and bun 44. Patient remains on IV fluids. Plans for cystoscopy with left ureteral stent removal today per Dr. Willson. Lactulose has been ordered for patient's constipation. Patient denies chest pain or shortness breath. Patient denies nausea vomiting or diarrhea patient denies any urinary burning or frequency On 12/27/2018 patient was seen and examined on the medical floor she is alert and oriented 3 in no apparent distress she is complaining of some discomfort in her lower back otherwise she denies any complaints, creatinine is down to 2.95 today. There is no fever or chills no headache or dizziness no chest pain no shortness of breath no cough no nausea or vomiting no abdominal pain no diarrhea no burning was urination no frequency or urgency no hematuria Objective - Vital Signs Vital signs: Vital Signs Temp 97.6 F 12/27/18 07:00 Pulse 60 12/27/18 07:00 Resp 12 12/27/18 07:00 BP 116/75 12/27/18 07:00 Pulse Ox 95 12/27/18 07:00 Intake & Output 12/26/18 12/27/18 12/27/18 18:59 06:59 18:59 Intake Total 500 400 240 Output Total 580 1050 1200 Balance -80 -650 -960 Weight 113.398 kg Intake: IV 500 Intake, IV Titration 150 Amount Sodium Chloride 0.9% 1, 150 000 ml @ 75 mls/hr IV . [id number] COUNTS INCLUDE 234 BEDS AT THE [facility] Rx#:[id number] Oral 250 240 Output: Urine 575 1050 1200 Estimated Blood Loss 5 Other: Voiding Method Incontinent Incontinent # Voids 1 - Exam In general patient is alert and oriented 3 in no apparent distress HEENT head normocephalic and atraumatic Neck is supple no JVD no goiter no lymphadenopathy Lungs clear to auscultation bilaterally no wheezing or crackles Heart regular rate and rhythm S1-S2, no rub or gallop Abdomen is soft nontender nondistended positive bowel sounds no hepatosplenomegaly Extremities no edema. Patient flaccid to bilateral lower extremities. Neuro no gross focal neurological deficit - Labs CBC & Chem 7: 12/27/18 06:40 12/27/18 06:40 Labs: Abnormal Lab Results - Last 24 Hours (Table) 12/26/18 12/26/18 12/26/18 Range/Units 07:18 14:57 18:11 RBC (3.80-5.40) m/uL Hgb (11.4-16.0) gm/dL Hct (34.0-46.0) % MCHC (31.0-37.0) g/dL RDW (11.5-15.5) % Chloride (98-107) mmol/L Carbon Dioxide (22-30) mmol/L BUN (7-17) mg/dL Creatinine (0.52-1.04) mg/dL Glucose (74-99) mg/dL POC Glucose (mg/dL) 100 H 108 H (75-99) mg/dL Iron 43 L (50-170) ug/dL TIBC 185 L (228-460) ug/dL Albumin (3.5-5.0) g/dL 12/26/18 12/27/18 12/27/18 Range/Units 21:16 06:40 06:40 RBC 3.23 L (3.80-5.40) m/uL Hgb 8.5 L (11.4-16.0) gm/dL Hct 28.1 L (34.0-46.0) % MCHC 30.2 L (31.0-37.0) g/dL RDW 16.3 H (11.5-15.5) % Chloride 114 H (98-107) mmol/L Carbon Dioxide 18 L (22-30) mmol/L BUN 37 H (7-17) mg/dL Creatinine 2.95 H (0.52-1.04) mg/dL Glucose 172 H (74-99) mg/dL POC Glucose (mg/dL) 134 H (75-99) mg/dL Iron (50-170) ug/dL TIBC (228-460) ug/dL Albumin 3.1 L (3.5-5.0) g/dL 12/27/18 12/27/18 Range/Units 06:58 11:47 RBC (3.80-5.40) m/uL Hgb (11.4-16.0) gm/dL Hct (34.0-46.0) % MCHC (31.0-37.0) g/dL RDW (11.5-15.5) % Chloride (98-107) mmol/L Carbon Dioxide (22-30) mmol/L BUN (7-17) mg/dL Creatinine (0.52-1.04) mg/dL Glucose (74-99) mg/dL POC Glucose (mg/dL) 186 H 148 H (75-99) mg/dL Iron (50-170) ug/dL TIBC (228-460) ug/dL Albumin (3.5-5.0) g/dL Assessment and Plan Plan: 1. Acute on chronic kidney disease with hyperkalemia. Creatinine elevated at 3.75 and bun 40. Potassium 4.5. Creatinine trending down 3.24, though, BUN 50. Normal saline at 75 mL. Nephrology services following 2. History of obstructive uropathy status post cystoscopy with left ureteral stent placement. Per urology services the patient's urinary tract infection sh ould be treated prior to consideration of left ureterscopy with lithotripsy. Per urology services possible left ureteral stent removal along with ureterscopy and laser lithotripsy of any left renal calcui inpatient. Plavix has been held since yesterday. Patient underwent cystoscopy with left ureteral stent removal on 12/26/[address] Willson. 3. Urinary tract infection. Patient started on Rocephin. Urine culture was positive for providencia stuarti, antibiotics were switched to ertapenem. Midline placed for IV antibiotics 4. History of CVA with memory impairment 5. Anemia likely secondary to chronic kidney disease stage III 6. History of myocardial infarction 7. History of pancreatitis 8. History of chronic pain maintained on [place] 9. History of anxiety depression and panic disorder 10. Atrophic right kidney 11. Telemetry findings reviewed so far patient has been in normal sinus rhythm without any arrhythmia will discontinue telemetry monitoring at this time. 12. 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 There is a rigid flexion contracture at the PIP joint as well as a extensor contracture at the DIP joint. This was evaluated by Ortho, in February 2018, who was unable to forcibly extend the PIP joint. Recommended following up with a hand surgeon outpatient, however patient is not interested at this time. Patient does complain of extensive pain in her finger. Baclofen was added. Patient reports some improvement with pain. 13. Constipation. Patient remains on Senna. Lactulose added DVT prophylaxis heparin. GI prophylaxis Pepcid
--- NOTE | 2018-12-27 15:14 | FL ---
EXAMINATION TYPE: FL guidance operating room DATE OF EXAM: 12/26/2018 CLINICAL HISTORY: Ureteral stent placement TECHNIQUE: Fluoroscopy. COMPARISON: None. FINDINGS: Fluoroscopic guidance was provided during pain relief procedure performed by Dr. Charles. A total of 38 seconds of fluoroscopic time was utilized during the procedure and 1 spot images are ac quired. Images acquired shows ureteral stent placed. IMPRESSION: As Above.
[2018-12-27 16:59] LABS: Glucose,Whole Blood 124 mg/dL (75-99)
[2018-12-27 20:23] LABS: Glucose,Whole Blood 169 mg/dL (75-99)
[2018-12-27] MEDS: MELATONIN 5 MG TABLET PO SCH (21:02)
[2018-12-27] MEDS: clonazePAM 0.5 MG TAB PO SCH (21:02)
[2018-12-28] MEDS: SODIUM CHLORIDE 0.9% 1,000 ML IV SCH ×3 (05:37→20:22)
[2018-12-28] MEDS: BACLOFEN 10 MG TAB PO PRN ×3 (05:59→20:23)
[2018-12-28] MEDS: LEVOTHYROXINE 25 MCG TAB PO SCH (05:59)
[2018-12-28 06:22] LABS: Anisocytosis Slight; Basophils % (A) 0 %; Eosinophils # (A) 0.1 k/uL (0-0.7); Eosinophils % (A) 3 %; HCT 28.5 % (34.0-46.0); HGB 8.9 gm/dL (11.4-16.0); Hypochromasia Slight; Lymphocytes # (A) 1.4 k/uL (1.0-4.8); Lymphocytes % (A) 27 %; MCH 26.9 pg (25.0-35.0); MCHC 31.2 g/dL (31.0-37.0); Mean Platelet Volume 6.3; Monocytes # (A) 0.3 k/uL (0-1.0); Monocytes % (A) 5 %; Neutrophils # (A) 3.4 k/uL (1.3-7.7); Neutrophils % (A) 64 %; Platelet Count 208 k/uL (150-450); RBC 3.31 m/uL (3.80-5.40); RDW 16.9 % (11.5-15.5); WBC 5.3 k/uL (3.8-10.6)
[2018-12-28 06:31] LABS: ALT 15 U/L (9-52); AST 14 U/L (14-36); African American GFR (CKD) 26 (>60 ml/min/1.73 sqM); Albumin 3.2 g/dL (3.5-5.0); Alkaline Phosphatase 56 U/L (38-126); Anion Gap 7 mmol/L; Blood Urea Nitrogen 40 mg/dL (7-17); Calcium 8.4 mg/dL (8.4-10.2); Carbon Dioxide 19 mmol/L (22-30); Chloride 115 mmol/L (98-107); Glucose 134 mg/dL (74-99); Potassium 4.4 mmol/L (3.5-5.1); Sodium 141 mmol/L (137-145); Total Bilirubin <0.1 mg/dL (0.2-1.3); Total Protein 6.5 g/dL (6.3-8.2)
[2018-12-28 07:01] LABS: Glucose,Whole Blood 149 mg/dL (75-99)
[2018-12-28] MEDS: FAMOTIDINE 20 MG TAB PO SCH (08:09)
[2018-12-28] MEDS: SENNOSIDES 8.6 MG TAB PO SCH ×2 (08:09→20:24)
[2018-12-28] MEDS: FLUoxetine HCL 20 MG CAP PO SCH (08:09)
[2018-12-28] MEDS: SODIUM BICARBONATE TAB 650 MG TAB PO SCH ×2 (08:09→20:50)
[2018-12-28] MEDS: INSULIN ASPART (NovoLOG) 100 UNIT/ML VIAL SQ SCH ×4 (08:10→20:23)
[2018-12-28] MEDS: ERTAPENEM 0.5 GM in SODIUM CHLORIDE 0.9% 50 ML IVPB SCH (08:10)
[2018-12-28] MEDS: HEPARIN SODIUM,PORCINE 5,000 UNIT/ML 1 ML VIAL SQ SCH ×2 (08:10→20:23)
[2018-12-28] MEDS: HYDROcodone/APAP 7.5-325MG 1 EACH TAB PO PRN ×3 (08:11→23:08)
[2018-12-28] MEDS: MULTIVITAMINS, THERA 1 EACH TAB PO SCH (08:11)
--- NOTE | 2018-12-28 08:48 | P.PN ---
Subjective Progress Note Date: 12/28/18 Principal diagnosis: This is a 33-year-old female, seen in consultation because of acute kidney injury and chronic kidney disease. Acute kidney injury secondary to combination volume depletion, urinary tract infection. Creatinine peaked at 5.07 dated 12/16/2018 has improved to 2. 72 this morning. She is on IV fluids and antibiotics. She is known with coma supposedly for 1 year in 2014 and mostly bedridden. Additionally more recently in February 2018, she has had obstructive nephropathy with the left kidney hydronephrosis with an obstructive calculus but she has not followed up except for having stents placed and has not had lithotripsy done. She has had in the past acute kidney injury with creatinine of 17 had emergency hemodialysis and then underwent double-J catheter placement on 07/17/2018 creatinine came down to 1.45 in July 2018. She was supposed to have ureteroscopy and lithotripsy for removal of catheter in September but did not keep her appointments multiple times She has an atrophic right kidney at 8.9 cm by a ultrasound and a 10.3 cm left kidney with multiple nonobstructive kidney stones currently. This admission was for acute renal failure. On 12/26/2018 she underwent surgery and cystoscopy left ureteroscopy and left ureteral stent change. No stone was noted presumably she has passed the stone Currently she complains of pain in her left hand and she is wearing a splint. Otherwise is feeling fairly well denies any complaints at all. She is eating well no nausea vomiting diarrhea abdominal pain fever chills cough abdominal pain. No back pain. Objective - Vital Signs Vital signs: Vital Signs Temp 97.6 F 12/28/18 07:00 Pulse 72 12/28/18 07:00 Resp 12 12/28/18 07:00 BP 112/68 12/28/18 07:00 Pulse Ox 97 12/28/18 07:00 Intake & Output 12/27/18 12/28/18 12/28/18 18:59 06:59 18:59 Intake Total 240 1800 Output Total 2400 1900 Balance -2160 -100 Intake: Oral 240 1800 Output: Urine 2400 1900 Other: Voiding Method Incontinent Incontinent # Voids 500 Examination she is obese, awake alert oriented comfortable lying in bed HEENT exam no JVP neck is supple no facial asymmetry Lungs are clear to auscultation fair air entry bilaterally Heart sounds are unremarkable for any murmur rub gallop Abdomen soft nontender no masses felt Extremity exam was no edema Neuro logically awake alert oriented she has generalized weakness - Labs CBC & Chem 7: 12/28/18 05:59 12/28/18 05:59 Labs: Abnormal Lab Results - Last 24 Hours (Table) 12/27/18 12/27/18 12/27/18 Range/Units 11:47 16:56 20:22 RBC (3.80-5.40) m/uL Hgb (11.4-16.0) gm/dL Hct (34.0-46.0) % RDW (11.5-15.5) % Chloride (98-107) mmol/L Carbon Dioxide (22-30) mmol/L BUN (7-17) mg/dL Creatinine (0.52-1.04) mg/dL Glucose (74-99) mg/dL POC Glucose (mg/dL) 148 H 124 H 169 H (75-99) mg/dL Total Bilirubin (0.2-1.3) mg/dL Albumin (3.5-5.0) g/dL 12/28/18 12/28/18 12/28/18 Range/Units 05:59 05:59 06:59 RBC 3.31 L (3.80-5.40) m/uL Hgb 8.9 L (11.4-16.0) gm/dL Hct 28.5 L (34.0-46.0) % RDW 16.9 H (11.5-15.5) % Chloride 115 H (98-107) mmol/L Carbon Dioxide 19 L (22-30) mmol/L BUN 40 H (7-17) mg/dL Creatinine 2.72 H (0.52-1.04) mg/dL Glucose 134 H (74-99) mg/dL POC Glucose (mg/dL) 149 H (75-99) mg/dL Total Bilirubin <0.1 L (0.2-1.3) mg/dL Albumin 3.2 L (3.5-5.0) g/dL Assessment and Plan Assessment: 1. Acute kidney injury secondary to combination volume depletion, urinary tract infection. Creatinine peaked at 5.07 dated 12/16/2018 has improved to 2.72 this morning. She is on IV fluids and antibiotics. 2. Chronic kidney disease secondary to an atrophied right kidney, possibly from previous stones and left hydronephrosis in the past but none during this admission. Baseline creatinine is fluctuating, at its best it is is 1.98 as of 08/26/2018. 3. History of frequent hydronephrosis and status post placement of multiple stents in the left kidney. Last stent was on 12/26/2018 day before yesterday. In the past has had obstructive nephropathy and has not followed up might have resulted in chronic kidney disease. 4. Urine tract infection with providentia on Invanz 5. Metabolic acidosis secondary to acute kidney injury and chronic kidney disease on sodium bicarb orally) 19 stable. 6. Anemia of chronic kidney disease with hemoglobin 8.5 stable. Iron saturation is 23% dated 12/26/2018. 7. History of CVA and prolonged coma for 1 year in 2015 Recommendation 1. Maintain IV fluids for another 24 hours. 2. Maintain oral bicarbonate expected to slowly improve. 3. Maintain IV antibiotics per infectious disease 4. Continue darbepoetin 40 g every 7 days
--- NOTE | 2018-12-28 10:17 | P.PN ---
Subjective Progress Note Date: 12/28/18 This is a 33-year-old female patient well-known to my services presented to the ER with abnormal kidney enzymes. Patient's creatinine at arrival 4.26 bun 51. Patient has known past medical history of chronic kidney disease secondary to obstructive uropathy with frequent acute episodes. Patient has also history of left ureteral stent placement and atrophic right kidney. Patient reports that she has been feeling well with no complaints. Patient reports that she has been urinating regularly. Patient denies any burning with urination. Patient denies any nausea vomiting or diarrhea. Patient denies any fevers. UA positive for urinary tract infection. Urine culture ordered patient started on Rocephin. Additional medical history includes CVA, myocardial infarction, pancreatitis, chronic pain, anemia of chronic disease, anxiety and depression. At this time urology and nephrology service is consulted. Patient maintained on normal saline at 60. Creatinine is trending down. Patient denies chest pain or shortness of breath. Patient denies nausea vomiting or diarrhea. Patient denies any urinary burning or frequency On 12/20/2018 patient was seen and examined on the medical floor she is alert and oriented 3 in no apparent distress she is still complaining of some pain in her lower back mostly to the left side otherwise she denies any pain there is no fever or chills no headache or dizziness no chest pain no shortness of breath no cough no nausea or vomiting no abdominal pain no diarrhea no burning with urination no frequency or urgency and no hematuria On 12/21/2018 patient was seen and examined on the medical floor she is alert and oriented 3 she is complaining of mild lower back pain otherwise she denies any complaints at this time, there is no fever or chills no headache or dizziness no chest pain no shortness of breath no cough no nausea or vomiting no abdominal pain no diarrhea no burning was urination no frequency or urgency and no hematuria. Telemetry findings reviewed patient in normal sinus rhythm without any arrhythmia telemetry monitoring discontinued. Urine culture is now available, and is positive forProvidencia Stuartii antibiotics were switched to Ertapenem. On 12/22/2018 patient is alert and oriented 3. Patient will likely need IV antibiotics upon discharge per ID. Patient remains on Invanz. Patient denies chest pain or shortness of breath. Patient denies nausea vomiting or diarrhea. Patient denies any urinary burning or frequency creatinine is trending down to 3.44. On 12/23/2018 patient is alert and oriented 3. Midline has been ordered for IV antibiotics. At this time patient denies chest pain or shortness of breath. Patient denies nausea vomiting or diarrhea. Patient denies any urinary burning or frequency. Per urology possible inpatient procedure. On 12/24/2018 patient alert and oriented 3. Midline placed for IV antibiotics. Creatinine increasing to 3.6-147 awaiting urology decision in regards to possib le procedure. Patient denies chest pain or shortness of breath. Patient denies nausea vomiting or diarrhea. Patient currently on senna for constipation. On 12/25/2018 patient is alert and oriented 3. Antibiotics continued via midline. Creatinine 3.24 from 3.62, per nursing staff patient is boarded for procedure at 1500 tomorrow. Plavix has been held since 12/24/18. Patient is pain or shortness of breath. Patient is diarrhea. Remains on senna for constipation. No bowel movement reported. On 12/26/2018 patient's alert and oriented 3. Creatinine improving to 3.00 and bun 44. Patient remains on IV fluids. Plans for cystoscopy with left ureteral stent removal today per Dr. Willson. Lactulose has been ordered for patient's constipation. Patient denies chest pain or shortness breath. Patient denies nausea vomiting or diarrhea patient denies any urinary burning or frequency On 12/27/2018 patient was seen and examined on the medical floor she is alert and oriented 3 in no apparent distress she is complaining of some discomfort in her lower back otherwise she denies any complaints, creatinine is down to 2.95 today. There is no fever or chills no headache or dizziness no chest pain no shortness of breath no cough no nausea or vomiting no abdominal pain no diarrhea no burning was urination no frequency or urgency no hematuria On 12/28/2018 patient is clinically stable she is still complaining of pain in her lower back otherwise she denies any complaints there is no fever or chills no headache or dizziness no chest pain no shortness of breath no cough no nausea or vomiting no abdominal pain no diarrhea no burning was urination no frequency or urgency and no hematuria kidney function is improving gradually. Objective - Vital Signs Vital signs: Vital Signs Temp 97.6 F 12/28/18 07:00 Pulse 72 12/28/18 07:00 Resp 12 12/28/18 07:00 BP 112/68 12/28/18 07:00 Pulse Ox 97 12/28/18 07:00 Intake & Output 12/27/18 12/28/18 12/28/18 18:59 06:59 18:59 Intake Total 240 1800 Output Total 2400 1900 Balance -2160 -100 Intake: Oral 240 1800 Output: Urine 2400 1900 Other: Voiding Method Incontinent Incontinent # Voids 500 - Exam In general patient is alert and oriented 3 in no apparent distress HEENT head normocephalic and atraumatic Neck is supple no JVD no goiter no lymphadenopathy Lungs clear to auscultation bilaterally no wheezing or crackles Heart regular rate and rhythm S1-S2, no rub or gallop Abdomen is soft nontender nondistended positive bowel sounds no hepatosplenomegaly Extremities no edema. Patient flaccid to bilateral lower extremities. Neuro no gross focal neurological deficit - Labs CBC & Chem 7: 12/28/18 05:59 12/28/18 05:59 Labs: Abnormal Lab Results - Last 24 Hours (Table) 12/27/18 12/27/18 12/27/18 Range/Units 11:47 16:56 20:22 RBC (3.80-5.40) m/uL Hgb (11.4-16.0) gm/dL Hct (34.0-46.0) % RDW (11.5-15.5) % Chloride (98-107) mmol/L Carbon Dioxide (22-30) mmol/L BUN (7-17) mg/dL Creatinine (0.52-1.04) mg/dL Glucose (74-99) mg/dL POC Glucose (mg/dL) 148 H 124 H 169 H (75-99) mg/dL Total Bilirubin (0.2-1.3) mg/dL Albumin (3.5-5.0) g/dL 12/28/18 12/28/18 12/28/18 Range/Units 05:59 05:59 06:59 RBC 3.31 L (3.80-5.40) m/uL Hgb 8.9 L (11.4-16.0) gm/dL Hct 28.5 L (34.0-46.0) % RDW 16.9 H (11.5-15.5) % Chloride 115 H (98-107) mmol/L Carbon Dioxide 19 L (22-30) mmol/L BUN 40 H (7-17) mg/dL Creatinine 2.72 H (0.52-1.04) mg/dL Glucose 134 H (74-99) mg/dL POC Glucose (mg/dL) 149 H (75-99) mg/dL Total Bilirubin <0.1 L (0.2-1.3) mg/dL Albumin 3.2 L (3.5-5.0) g/dL Assessment and Plan Plan: 1. Acute on chronic kidney disease with hyperkalemia. Creatinine elevated at 3.75 and bun 40. Potassium 4.5. Creatinine trending down 3.24, though, BUN 50. Normal saline at 75 mL. Nephrology services following 2. History of obstructive uropathy status post cystoscopy with left ureteral stent placement. Per urology services the patient's urinary tract infection should be treated prior to consideration of left ureterscopy with lithotripsy. Per urology services possible left ureteral stent removal along with ureterscopy and laser lithotripsy of any left renal calcui inpatient. Plavix has been held since yesterday. Patient underwent cystoscopy with left ureteral stent removal on 12/26/[address] Willson. 3. Urinary tract infection. Patient started on Rocephin. Urine culture was positive for providencia stuarti, antibiotics were switched to ertapenem. Midline placed for IV antibiotics 4. History of CVA with memory impairment 5. Anemia likely secondary to chronic kidney disease stage III 6. History of myocardial infarction 7. History of pancreatitis 8. History of chronic pain maintained on [place] 9. History of anxiety depression and panic disorder 10. Atrophic right kidney 11. Telemetry findings reviewed so far patient has been in normal sinus rhythm without any arrhythmia will discontinue telemetry monitoring at this time. 12. 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 There is a rigid flexion contracture at the PIP joint as well as a extensor contracture at the DIP joint. This was evaluated by Ortho, in February 2018, who was unable to forcibly extend the PIP joint. Recommended following up with a hand surgeon outpatient, however patient is not interested at this time. Patient does complain of extensive pain in her finger. Baclofen was added. Patient reports some improvement with pain. 13. Constipation. Patient remains on Senna. Lactulose added DVT prophylaxis heparin. GI prophylaxis Pepcid. Patient is clinically stable, kidney function is improving gradually Possible discharge back to care home in a.m. tomorrow
[2018-12-28 11:53] LABS: Glucose,Whole Blood 127 mg/dL (75-99)
[2018-12-28 17:01] LABS: Glucose,Whole Blood 122 mg/dL (75-99)
[2018-12-28] MEDS: MELATONIN 5 MG TABLET PO SCH (20:23)
[2018-12-28] MEDS: clonazePAM 0.5 MG TAB PO SCH (20:24)
[2018-12-28 20:53] LABS: Glucose,Whole Blood 169 mg/dL (75-99)
[2018-12-29] MEDS: LEVOTHYROXINE 25 MCG TAB PO SCH (05:50)
--- NOTE | 2018-12-29 06:13 | PN ---
PROGRESS NOTE DATE OF SERVICE: 12/28/2018 REASON FOR FOLLOWUP: Complicated urinary tract infection. INTERVAL HISTORY: The patient is currently afebrile. Patient is breathing comfortably. The patient is status post successful exchange of left ureteral stent by Urology on Saturday. The patient tolerated the procedure. The patient currently denies having any chest pain, shortness of breath or cough. No abdominal pain. No diarrhea. No urinary symptoms. PHYSICAL EXAMINATION: Blood pressure 124/72 with a pulse of 73, temperature of 98. She is 96% on room air. General description is a middle-aged female lying in bed in no distress. RESPIRATORY SYSTEM: Unlabored breathing, clear to auscultation anteriorly. HEART: S1, S2. Regular rate and rhythm. ABDOMEN: Soft, no tenderness. LABS: Creatinine is down to 2.72, white count is normal. DIAGNOSTIC IMPRESSION AND PLAN: Patient with gram-negative urinary tract infection that is complicated in this patient who did have an underlying stent infected that has been exchanged. We will repeat a UA and cultures. If did show overall improvement and no evidence of any infection, no further antibiotic will be recommended. If still positive, she may need a Midline for outpatient IV antibiotic. MMODL / IJN: [id number] /
[2018-12-29 06:53] LABS: Glucose,Whole Blood 191 mg/dL (75-99)
[2018-12-29] MEDS: SODIUM BICARBONATE TAB 650 MG TAB PO SCH (07:57)
[2018-12-29] MEDS: HYDROcodone/APAP 7.5-325MG 1 EACH TAB PO PRN ×2 (07:57→14:57)
[2018-12-29] MEDS: MULTIVITAMINS, THERA 1 EACH TAB PO SCH (07:57)
[2018-12-29] MEDS: SENNOSIDES 8.6 MG TAB PO SCH (07:57)
[2018-12-29] MEDS: INSULIN ASPART (NovoLOG) 100 UNIT/ML VIAL SQ SCH ×2 (07:58→11:47)
[2018-12-29] MEDS: HEPARIN SODIUM,PORCINE 5,000 UNIT/ML 1 ML VIAL SQ SCH (07:58)
[2018-12-29] MEDS: FAMOTIDINE 20 MG TAB PO SCH (07:58)
[2018-12-29] MEDS: FLUoxetine HCL 20 MG CAP PO SCH (07:58)
[2018-12-29 08:19] VITALS: BP 112/64; PULSE 71; RESP 18; TEMP 97.7
[2018-12-29] MEDS: ERTAPENEM 0.5 GM in SODIUM CHLORIDE 0.9% 50 ML IVPB SCH (09:07)
[2018-12-29 09:42] LABS: Anisocytosis Slight; Basophils % (A) 0 %; Eosinophils # (A) 0.2 k/uL (0-0.7); Eosinophils % (A) 3 %; HCT 28.8 % (34.0-46.0); Hypochromasia Marked; Lymphocytes # (A) 1.4 k/uL (1.0-4.8); Lymphocytes % (A) 23 %; MCH 27.6 pg (25.0-35.0); MCHC 31.1 g/dL (31.0-37.0); MCV 88.6 fL (80.0-100.0); Mean Platelet Volume 5.9; Monocytes # (A) 0.3 k/uL (0-1.0); Monocytes % (A) 5 %; Neutrophils # (A) 4.2 k/uL (1.3-7.7); Neutrophils % (A) 69 %; Platelet Count 197 k/uL (150-450); RBC 3.25 m/uL (3.80-5.40); WBC 6.2 k/uL (3.8-10.6)
[2018-12-29 09:57] LABS: Albumin 3.2 g/dL (3.5-5.0); Calcium 8.4 mg/dL (8.4-10.2); Potassium 4.3 mmol/L (3.5-5.1); Total Bilirubin 0.2 mg/dL (0.2-1.3); Total Protein 6.6 g/dL (6.3-8.2)
[2018-12-29 11:40] LABS: Glucose,Whole Blood 120 mg/dL (75-99)
--- NOTE | 2018-12-29 14:18 | P.DS ---
Providers Date of admission: 12/20/18 15:17 Expected date of discharge: 12/29/18 Attending physician: Roberto Knight Consults: 12/18/18 17:29 Consult Physician Routine Consulting Provider: Melony Overton Consult Reason/Comments: arf Do you want consulting provider notified?: Yes 12/19/18 08:13 Consult Physician Routine Consulting Provider: Gordon Rod Consult Reason/Comments: established patient, history of hydronephrosis Do you want consulting provider notified?: Yes 12/19/18 14:47 Consult Physician Routine Consulting Provider: Bhupendra Cloud Consult Reason/Comments: Reoccurring urinary tract infection Do you want consulting provider notified?: Yes Primary care physician: Roberto Knight [facility] Course: Discharge diagnosis 1. Acute on chronic kidney disease with hyperkalemia. Creatinine elevated at 3.75 and bun 40. Potassium 4.5. Creatinine trending down 3.24, though, BUN 50. Normal saline at 75 mL. Nephrology services following. 2. History of obstructive uropathy status post cystoscopy with left ureteral stent placement. Per urology services the patient's urinary tract infection should be treated prior to consideration of left ureterscopy with lithotripsy. Per urology services possible left ureteral stent removal along with ureterscopy and laser lithotripsy of any left renal calcui inpatient. Plavix has been held since yesterday. Patient underwent cystoscopy with left ureteral stent removal on 12/26/[address] Willson. Per urology services laser lithotripsy cannot be performed planning to reschedule procedure within the next month. 3. Urinary tract infection. Patient started on Rocephin. Urine culture was positive for providencia stuarti, antibiotics were switched to ertapenem. Midline placed for IV antibiotics. Discussed case with Dr. Cloud per infectious disease patient will be DC'd on Invanz for 1 week 4. History of CVA with memory impairment 5. Anemia likely secondary to chronic kidney disease stage III 6. History of myocardial infarction 7. History of pancreatitis 8. History of chronic pain maintained on [place] 9. History of anxiety depression and panic disorder 10. Atrophic right kidney 11. Telemetry findings reviewed so far patient has been in normal sinus rhythm without any arrhythmia will discontinue telemetry monitoring at this time. 12. 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 There is a rigid flexion contracture at the PIP joint as well as a extensor contracture at the DIP joint. This was evaluated by Ortho, in February 2018, who was unable to forcibly extend the PIP joint. Recommended following up with a hand surgeon outpatient, however patient is not interested at this time. Patient does complain of extensive pain in her finger. Baclofen was added. Patient reports some improvement with pain. 13. Constipation. Patient remains on Senna. Lactulose added. Resolved Hospital course This is a 33-year-old female patient well-known to my services presented to the ER with abnormal kidney enzymes. Patient's creatinine at arrival 4.26 bun 51. Patient has known past medical history of chronic kidney disease secondary to obstructive uropathy with frequent acute episodes. Patient has also history of left ureteral stent placement and atrophic right kidney. Patient reports that she has been feeling well with no complaints. Patient reports that she has been urinating regularly. Patient denies any burning with urination. Patient denies any nausea vomiting or diarrhea. Patient denies any fevers. UA positive for urinary tract infection. Urine culture ordered patient started on Rocephin. Additional medical history includes CVA, myocardial infarction, pancreatitis, chronic pain, anemia of chronic disease, anxiety and depression. At this time urology and nephrology service is consulted. Patient maintained on normal saline at 60. Creatinine is trending down. Patient denies chest pain or shortness of breath. Patient denies nausea vomiting or diarrhea. Patient denies any urinary burning or frequency On 12/20/2018 patient was seen and examined on the medical floor she is alert and oriented 3 in no apparent distress she is still complaining of some pain in her lower back mostly to the left side otherwise she denies any pain there is no fever or chills no headache or dizziness no chest pain no shortness of breath no cough no nausea or vomiting no abdominal pain no diarrhea no burning with urination no frequency or urgency and no hematuria On 12/21/2018 patient was seen and examined on the medical floor she is alert and oriented 3 she is complaining of mild lower back pain otherwise she denies any complaints at this time, there is no fever or chills no headache or dizziness no chest pain no shortness of breath no cough no nausea or vomiting no abdominal pain no diarrhea no burning was urination no frequency or urgency and no hematuria. Telemetry findings reviewed patient in normal sinus rhythm without any arrhythmia telemetry monitoring discontinued. Urine culture is now available, and is positive forProvidencia Stuartii antibiotics were switched to Ertapenem. On 12/22/2018 patient is alert and oriented 3. Patient will likely need IV antibiotics upon discharge per ID. Patient remains on Invanz. Patient denies chest pain or shortness of breath. Patient denies nausea vomiting or diarrhea. Patient denies any urinary burning or frequency creatinine is trending down to 3.44. On 12/23/2018 patient is alert and oriented 3. Midline has been ordered for IV antibiotics. At this time patient denies chest pain or shortness of breath. Patient denies nausea vomiting or diarrhea. Patient denies any urinary burning or frequency. Per urology possible inpatient procedure. On 12/24/2018 patient alert and oriented 3. Midline placed for IV antibiotics. Creatinine increasing to 3.6-147 awaiting urology decision in regards to possible procedure. Patient denies chest pain or shortness of breath. Patient denies nausea vomiting or diarrhea. Patient currently on senna for constipation. On 12/25/2018 patient is alert and oriented 3. Antibiotics continued via midline. Creatinine 3.24 from 3.62, per nursing staff patient is boarded for procedure at 1500 tomorrow. Plavix has been held since 12/24/18. Patient is pain or shortness of breath. Patient is diarrhea. Remains on senna for constipation. No bowel movement reported. On 12/26/2018 patient's alert and oriented 3. Creatinine improving to 3.00 and bun 44. Patient remains on IV fluids. Plans for cystoscopy with left ureteral stent removal today per Dr. Willson. Lactulose has been ordered for patient's constipation. Patient denies chest pain or shortness breath. Patient denies nausea vomiting or diarrhea patient denies any urinary burning or frequency On 12/27/2018 patient was seen and examined on the medical floor she is alert and oriented 3 in no apparent distress she is complaining of some discomfort in her lower back otherwise she denies any complaints, creatinine is down to 2.95 today. There is no fever or chills no headache or dizziness no chest pain no shortness of breath no cough no nausea or vomiting no abdominal pain no diarrhea no burning was urination no frequency or urgency no hematuria On 12/28/2018 patient is clinically stable she is still complaining of pain in her lower back otherwise she denies any complaints there is no fever or chills no headache or dizziness no chest pain no shortness of breath no cough no nausea or vomiting no abdominal pain no diarrhea no burning was urination no frequency or urgency and no hematuria kidney function is improving gradually. On 12/29/2018 patient's alert and oriented 3. Patient's creatinine improving to 2.50 and bun 36. Patient will be DC'd back to [facility]. Patient will be DC'd on Invanz for 1 week discussed case [address] Dr[address] Cloud per infectious disease. Patient denies chest pain or shortness of breath. Patient denies nausea vomiting or diarrhea. Patient denies any urinary burning or frequency I performed an examination of the patient and discussed their management with the Nurse Practitioner. I have reviewed the Nurse Practitioner's notes and agree with the documented findings and plan of care Patient Condition at Discharge: Stable Plan - Discharge Summary Discharge Rx Participant: Yes New Discharge Prescriptions: New Ertapenem [INVanz] 0.5 gm IVPB Q24H 7 Days #7 bag Darbepoetin Kurtis [Aranesp] 40 mcg SQ Q7D syringe Baclofen 10 mg PO HS PRN 14 Days #14 tab PRN Reason: Muscle Spasm INSULIN ASPART (NovoLOG) [NovoLOG (formulary)] 0 unit SQ ACHS vial Sodium Bicarbonate Tab 650 mg PO BID tab Continue Melatonin 5 mg PO HS Sennosides [Senokot] 8.6 mg PO BID FLUoxetine HCL [PROzac] 20 mg PO DAILY Multivitamins, Thera [Multivitamin (formulary)] 1 tab PO DAILY Levothyroxine Sodium [Synthroid] 25 mcg PO DAILY Ergocalciferol (Vitamin D2) [Drisdol] 50,000 unit PO Q30D Clopidogrel [Plavix] 75 mg PO DAILY Acetaminophen Tab [Tylenol] 650 mg PO Q6H PRN PRN Reason: Pain Magnesium Hydroxide [Milk of Magnesia] 30 ml PO DAILY PRN PRN Reason: Constipation Polyethylene Glycol 3350 [Miralax] 17 gm PO DAILY PRN PRN Reason: Constipation Miconazole Nitrate [Miconazole Nitrate 2%] 1 applic TOPICAL BID PRN PRN Reason: REDNESS/IRRITATION guaiFENesin [guaiFENesin Oral Solution] 200 mg PO Q6H PRN PRN Reason: Cough clonazePAM [KlonoPIN] 0.5 mg PO HS@2100 14 Days #14 tab HYDROcodone/APAP 7.5-325MG [[place] 7.5-325] 1 tab PO Q8HR PRN 14 Days #42 tab PRN Reason: Pain Discontinued Magnesium Oxide [Mag-Ox] 400 mg PO BID Potassium Citrate [Urocit-K] 15 meq PO TID@0800,1200,1800 Discharge Medication List Clopidogrel [Plavix] 75 mg PO DAILY 02/15/18 [History] Ergocalciferol (Vitamin D2) [Drisdol] 50,000 unit PO Q30D 02/15/18 [History] FLUoxetine HCL [PROzac] 20 mg PO DAILY 02/15/18 [History] Levothyroxine Sodium [Synthroid] 25 mcg PO DAILY 02/15/18 [History] Melatonin 5 mg PO HS 02/15/18 [History] Multivitamins, Thera [Multivitamin (formulary)] 1 tab PO DAILY 02/15/18 [History] Sennosides [Senokot] 8.6 mg PO BID 02/15/18 [History] Acetaminophen Tab [Tylenol] 650 mg PO Q6H PRN 09/03/18 [History] Magnesium Hydroxide [Milk of Magnesia] 30 ml PO DAILY PRN 09/03/18 [History] Miconazole Nitrate [Miconazole Nitrate 2%] 1 applic TOPICAL BID PRN 09/03/18 [History] Polyethylene Glycol 3350 [Miralax] 17 gm PO DAILY PRN 09/03/18 [History] guaiFENesin [guaiFENesin Oral Solution] 200 mg PO Q6H PRN 12/18/18 [History] Baclofen 10 mg PO HS PRN 14 Days #14 tab 12/29/18 [Rx] Darbepoetin Kurtis [Aranesp] 40 mcg SQ Q7D syringe 12/29/18 [Rx] Ertapenem [INVanz] 0.5 gm IVPB Q24H 7 Days #7 bag 12/29/18 [Rx] HYDROcodone/APAP 7.5-325MG [[place] 7.5-325] 1 tab PO Q8HR PRN 14 Days #42 tab 12/29/18 [Rx] INSULIN ASPART (NovoLOG) [NovoLOG (formulary)] 0 unit SQ ACHS vial 12/29/18 [Rx] Sodium Bicarbonate Tab 650 mg PO BID tab 12/29/18 [Rx] clonazePAM [KlonoPIN] 0.5 mg PO HS@2100 14 Days #14 tab 12/29/18 [Rx] Follow up Appointment(s)/Referral(s): Roberto Knight MD [Primary Care Provider] - 1-2 days Mac Charles MD [STAFF PHYSICIAN] - 1 Week Donnie Felder DO [STAFF PHYSICIAN] - 1 Week Activity/Diet/Wound Care/Special Instructions: Activity as tolerated Diet heart healthy Discharge Disposition: TRANSFER TO SNF/ECF
--- NOTE | 2018-12-29 15:58 | PN ---
PROGRESS NOTE DATE OF SERVICE: 12/29/2018 REASON FOR FOLLOWUP: Urinary tract infection, complicated. INTERVAL HISTORY: The patient is currently afebrile. The patient is breathing comfortably. The patient denies having any chest pain or cough. No nausea or vomiting. No abdominal pain or diarrhea. PHYSICAL EXAMINATION: Blood pressure 124/64 with a pulse of 71, temperature 97.7. She is 98% on room air. General description is a middle-aged female lying in bed in no distress. RESPIRATORY SYSTEM: Unlabored breathing. Clear to auscultation anteriorly. HEART: S1, S2. Regular rate and rhythm. ABDOMEN: Soft. No tenderness. LABS: Hemoglobin 9, white count 6.2 with a BUN of 36, creatinine 2.50. DIAGNOSTIC IMPRESSION AND PLAN: Patient with a complicated urinary tract infection in this patient whose urine cultures did show [id number] providencia. Patient is on Invanz, responding to treatment. To continue for about a week. We did request another UA last night, which has not been done. MMODL / IJN: [id number] /
== END 2018-12-29 16:05 | DRG 660 ==
LOC: EC 13:53 → 4SSUR 17:29 → OBSVTOIN 12-20 15:17
PROVIDERS: ADMIT Internal Medicine; ATTEND Internal Medicine
PROC: 05HF33Z Insertion of Infusion Device into Left Cephalic Vein, Percutaneous Approach (ICD-10-PCS; 2018-12-23)
PROC: 0T778DZ Dilation of Left Ureter with Intraluminal Device, Via Natural or Artificial Opening Endoscopic (ICD-10-PCS; principal; 2018-12-26 09:00)
PROC: 0TP98DZ Removal of Intraluminal Device from Ureter, Via Natural or Artificial Opening Endoscopic (ICD-10-PCS; 2018-12-26 09:00)
DX: T83.593A Infection and inflammatory reaction due to other urinary stents, initial encounter (principal); N17.9 Acute kidney failure, unspecified; N39.0 Urinary tract infection, site not specified; Z68.41 Body mass index [BMI] 40.0-44.9, adult; Z16.24 Resistance to multiple antibiotics; E87.2 Acidosis; N13.8 Other obstructive and reflux uropathy; N18.4 Chronic kidney disease, stage 4 (severe); E66.01 Morbid (severe) obesity due to excess calories; E87.5 Hyperkalemia; E83.9 Disorder of mineral metabolism, unspecified; N26.1 Atrophy of kidney (terminal); N20.0 Calculus of kidney; B96.89 Other specified bacterial agents as the cause of diseases classified elsewhere; D63.1 Anemia in chronic kidney disease; I69.311 Memory deficit following cerebral infarction; R40.2142 Coma scale, eyes open, spontaneous, at arrival to emergency department; R40.2252 Coma scale, best verbal response, oriented, at arrival to emergency department; R40.2362 Coma scale, best motor response, obeys commands, at arrival to emergency department; F32.9 Major depressive disorder, single episode, unspecified; F41.0 Panic disorder [episodic paroxysmal anxiety]; F41.9 Anxiety disorder, unspecified; E03.9 Hypothyroidism, unspecified; E86.9 Volume depletion, unspecified; K59.00 Constipation, unspecified; M79.642 Pain in left hand; R19.7 Diarrhea, unspecified; G89.29 Other chronic pain; M54.5 Low back pain; R32 Unspecified urinary incontinence; M20.022 Boutonniere deformity of left finger(s); I25.2 Old myocardial infarction; Z79.02 Long term (current) use of antithrombotics/antiplatelets; Z79.890 Hormone replacement therapy; Z79.899 Other long term (current) drug therapy; Z71.3 Dietary counseling and surveillance; Z87.440 Personal history of urinary (tract) infections; Z87.442 Personal history of urinary calculi; Z86.19 Personal history of other infectious and parasitic diseases; Z87.19 Personal history of other diseases of the digestive system; Z90.49 Acquired absence of other specified parts of digestive tract; Z98.890 Other specified postprocedural states; Z74.01 Bed confinement status; Z88.6 Allergy status to analgesic agent; Z88.8 Allergy status to other drugs, medicaments and biological substances; Z80.1 Family history of malignant neoplasm of trachea, bronchus and lung; Y83.1 Surgical operation with implant of artificial internal device as the cause of abnormal reaction of the patient, or of later complication, without mention of misadventure at the time of the procedure
CPT/HCPCS: 36410; 36415; 76770; 76937; 80053; 81001; 81025; 82728; 83036; 83540; 83550; 83735; 84132; 84443; 85025; 86850; 86900; 86901; 87077; 87086; 87186; 96360; 99284

== ENCOUNTER 2019-01-29 07:30 | Day surgery (SDC) | payer OTHER ==
[2019-01-23 11:21] VITALS: BMI 38.9
--- NOTE | 2019-01-25 17:36 | P.GSHP ---
History of Present Illness H&P Date: 01/25/19 Chief Complaint: Left renal calculi The patient is a 33-year-old female with chronic kidney disease was originally discovered to have acute renal failure in February 2018. Creatinine at that time was 15.42. She has an atrophic right kidney and her left kidney was hydronephro tic secondary to an obstructive 8x12 mm calculus. She underwent placement of a left double-J catheter. Renal function improved and her creatinine decreased to 1.45. She failed to keep her follow-up appointment and was admitted in July 2018 due to acute renal failure with a creatinine of 17.72. She was treated with emergency hemodialysis and underwent replacement of the double-J catheter on 07/17/18. Her creatinine fell to 1.45 later in July. It was intended that left ureteroscopy and lithotripsy be performed for removal of the calculus and this was scheduled once in early September and again in late September but both surgeries were eventually canceled. The patient refused to come to the office on 10/09 for a follow-up visit. Her guardian was appraised of the risks of worsening of her renal failure including the need for dialysis if the obstructive calculus was not removed and the stent remained in place over a long period of time. Her creatinine has varied since then and was as high as 4.99 on 11/30. She underwent left ureteral stent change on 12/26/2018. Ureteroscopy was performed, but lithotripsy was not intended due to the fact that purulence was noted within the left renal pelvis. A recent urine culture has shown Proteus and Pseudomonas, for which she is being treated with meropenem. She now comes for cystoscopy, left ureteral stent removal, left ureteroscopy with Hol mium laser lithotripsy. - Constitutional Constitutional: Denies chills, Denies fever - Genitourinary (Female) Genitourinary: Denies flank pain Past Medical History Past Medical History: CVA/TIA, Diabetes Mellitus, Myocardial Infarction (ND), Renal Disease, Skin Disorder Additional Past Medical History / Comment(s): morbid obesity, pancreatitis, hx of coma - 10/24/14 until 12/2014 after stroke, affected lt side, weakness, contractures. Hx Anemia, Respiratory failure post procedure. Kidney failure, calculus of kidneys, UTI's - starting AB Rx today, nephrosis, Incontinant. Alert, bed bound. c/o pain hands, lower back.Excoriation under breasts occ. Last Myocardial Infarction Date:: 10/2014 History of Any Multi-Drug Resistant Organisms: ESBL, Other MDRO Date of last positivie culture/infection: 09/25/18 ESBL E.coli MDRO Source:: Urine Past Surgical History: Cholecystectomy Additional Past Surgical History / Comment(s): Cystoscopy with placement of left double-J catheter 02/16/2018 Past Anesthesia/Blood Transfusion Reactions: No Reported Reaction Smoking Status: Former smoker - Past Family History Father History Unknown: Yes Family Medical History: Cancer Additional Family Medical History / Comment(s): lung Medications and Allergies Home Medications Medication Instructions Recorded Confirmed Type Clopidogrel [Plavix] 75 mg PO DAILY 02/15/18 01/23/19 History Ergocalciferol (Vitamin D2) 50,000 unit PO Q30D 02/15/18 01/23/19 History [Drisdol] FLUoxetine HCL [PROzac] 20 mg PO DAILY 02/15/18 01/23/19 History Levothyroxine Sodium [Synthroid] 25 mcg PO DAILY 02/15/18 01/23/19 History Melatonin 5 mg PO HS 02/15/18 01/23/19 History Multivitamins, Thera [Multivitamin 1 tab PO DAILY 02/15/18 01/23/19 History (formulary)] Sennosides [Senokot] 8.6 mg PO BID 02/15/18 01/23/19 History Acetaminophen Tab [Tylenol] 650 mg PO Q6H PRN 09/03/18 01/23/19 History Magnesium Hydroxide [Milk of 30 ml PO DAILY PRN 09/03/18 01/23/19 History Magnesia] Miconazole Nitrate [Miconazole 1 applic TOPICAL BID PRN 09/03/18 01/23/19 History Nitrate 2%] Polyethylene Glycol 3350 [Miralax] 17 gm PO DAILY PRN 09/03/18 01/23/19 History guaiFENesin [guaiFENesin Oral 200 mg PO Q6H PRN 12/18/18 01/23/19 History Solution] Baclofen 10 mg PO HS PRN 14 Days #14 tab 12/29/18 01/23/19 Rx Darbepoetin Kurtis [Aranesp] 40 mcg SQ Q7D syringe 12/29/18 01/23/19 Rx HYDROcodone/APAP 7.5-325MG [[place] 1 tab PO Q8HR PRN 14 Days #42 tab 12/29/18 01/23/19 Rx 7.5-325] Sodium Bicarbonate Tab 650 mg PO BID tab 12/29/18 01/23/19 Rx clonazePAM [KlonoPIN] 0.5 mg PO HS@2100 14 Days #14 tab 12/29/18 01/23/19 Rx INSULIN ASPART (NovoLOG) [NovoLOG 3 unit SQ ACHS 01/23/19 01/23/19 History (formulary)] Meropenem [Merrem] 1 gm IVPB Q12H 01/23/19 01/23/19 History Allergies Allergy/AdvReac Type Severity Reaction Status Date / Time aspirin Allergy Unknown Verified 01/23/19 10:56 ibuprofen [From Motrin] Allergy AVOIDS D/T Verified 01/23/19 10:56 KIDNEY FUNCTION sertraline HCl [From Zoloft] Allergy Unknown Verified 01/23/19 10:56 zolpidem tartrate Allergy Unknown Verified 01/23/19 10:56 [From Ambien] gabapentin [From Neurontin] AdvReac Severe SEVERE Verified 01/23/19 10:56 AGITATION Surgical - Exam - General well developed, well nourished, no distress - Respiratory normal respiratory effort - Abdomen Abdomen: soft, non tender, no guarding, no rigid, no rebound Results - Imaging CT scan - abdomen: report reviewed, image reviewed Assessment and Plan (1) Calculus of kidney Status: Acute Code(s): N20.0 - CALCULUS OF KIDNEY SNOMED Code(s): 97065012 Plan: Cystoscopy, left ureteral stent removal, left ureteroscopy with holmium laser lithotripsy. Risks include anesthesia, bleeding, infection, and ureteral injury.
[2019-01-29] MEDS ORDERED: SCOPOLAMINE 1.5MG/72HR PATCH TRANSDERM ONE (08:00)
[2019-01-29] MEDS ORDERED: DEXAMETHASONE SOD PHOSPHATE 10 MG/ML 1 ML VIAL IV ONE (08:00)
[2019-01-29] MEDS ORDERED: MIDAZOLAM 2 MG/2 ML VIAL IV PRN (08:00)
[2019-01-29] MEDS ORDERED: LIDOCAINE 1% 20 ML VIAL (10MG/ML) FOR IV START INTRADERMA PRN (08:00)
[2019-01-29] MEDS ORDERED: ONDANSETRON 4 MG/2 ML VIAL IVP ONE (08:00)
[2019-01-29] MEDS ORDERED: HYDROmorphone 0.5 MG/0.5 ML SYRINGE IVP PRN (08:00)
[2019-01-29] MEDS ORDERED: LACTATED RINGERS 1,000 ML IV SCH (08:00)
--- NOTE | 2019-01-29 08:18 | XR ---
EXAMINATION TYPE: XR KUB DATE OF EXAM: 01/29/2019 7:55 AM CLINICAL HISTORY: Preoperative examination. Left ureteral calculus. TECHNIQUE: Single supine KUB image of the abdomen is obtained. COMPARISON: None. FINDINGS: Left ureteral stent is seen. Exam is slightly suboptimal secondary to patient body habitus. No discrete calculus is seen. Numerous phleboliths in the pelvis. Cholecystectomy clips. No dilated large or small bowel. IMPRESSION: Left ureteral stent. No discrete calculi although the exam is slightly limited by patient body habitus.
[2019-01-29] MEDS ORDERED: fentaNYL (PF) 50 MCG/ML 2 ML AMP ONE (09:31)
[2019-01-29] MEDS ORDERED: MIDAZOLAM 2 MG/2 ML VIAL ONE (09:31)
[2019-01-29] MEDS ORDERED: PROPOFOL 10 MG/ML 20 ML VIAL IV ONE (09:31)
[2019-01-29] MEDS ORDERED: LIDOCAINE 1% INJ 10MG/ML (20 ML MDV) ONE (09:31)
[2019-01-29] MEDS ORDERED: SUCCINYLCHOLINE CHLORIDE 100 MG/5 ML SYR IV ONE (09:31)
[2019-01-29 11:19] VITALS: TEMP 96.8
--- NOTE | 2019-01-29 11:23 | P.OP ---
Date of Procedure: 01/29/19 Preoperative Diagnosis: Left renal calculi Postoperative Diagnosis: Same Procedure(s) Performed: Cystoscopy, left ureteral stent removal, left ureteroscopy with stone basket retrieval Anesthesia: HORTENCIA Surgeon: Mac Charles Estimated Blood Loss (ml): 10 IV fluids (ml): 600 Pathology: other (calculus fragments, sent for chemical analysis.) Condition: stable Disposition: PACU Indications for Procedure: The patient is a 33-year-old female with chronic kidney disease was originally discovered to have acute renal failure in February 2018. Creatinine at that time was 15.42. She has an atrophic right kidney and her left kidney was hydronephrotic secondary to an obstructive 8x12 mm calculus. She underwent placement of a left double-J catheter. Renal function improved and her creatinine decreased to 1.45. She failed to keep her follow-up appointment and was admitted in July 2018 due to acute renal failure with a creatinine of 17.72. She was treated with emergency hemodialysis and underwent replacement of the double-J catheter on 07/17/18. Her creatinine fell to 1.45 later in July. It was intended that left ureteroscopy and lithotripsy be performed for removal of the calculus and this was scheduled once in early September and again in late Sep us but both surgeries were eventually canceled. The patient refused to come to the office on 10/09 for a follow-up visit. Her guardian was appraised of the risks of worsening of her renal failure including the need for dialysis if the obstructive calculus was not removed and the stent remained in place over a long period of time. Her creatinine has varied since then and was as high as 4.99 on 11/30. She underwent left ureteral stent change on 12/26/2018. Ureteroscopy was performed, but lithotripsy was not intended due to the fact that purulence was noted within the left renal pelvis. A recent urine culture has shown Proteus and Pseudomonas, for which she is being treated with meropenem. She now comes for cystoscopy, left ureteral stent removal, left ureteroscopy with removal of renal calculi. Operative Findings: Considerable mucus is seen within a bifid left renal pelvis. Multiple small calculi were removed via stone basketing. Description of Procedure: The patient was taken to the operating room and placed in the dorsolithotomy position, with legs supported in Rocky stirrups. The external genitalia was prepped and draped sterilely. The 30 lens was used to introduce the 22-Yemeni Stortz cystoscopic sheath through the urethra and into the bladder under direct vision. The bladder was examined in its entirety. The right ureteral orifices appeared normal. No tumors or foreign bodies were seen. the left ureteral stent was grasped with grasping forceps and removed along with the cystoscope. A 0.038 inch Glidewire was passed through the stent and up to the left renal pelvis. An 11/13-Yemeni ureteral access catheter was passed over the wire, up to the proximal ureter. The mini flexible ureteroscope was advanced through the ureteral access catheter sheath and into the left renal pelvis. Considerable mucus was seen within the renal pelvis. This was removed via aspiration with a syringe. Visualization was then improved. 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 Within several calyces there were multiple small calculi, which were removed via stone basketing using a 1.9-Yemeni nitinol basket. This was done until there were only a couple tiny residual calculi. In total, at least 15 calculi were removed. Slight mucosal bleeding was seen within several calyces, but there was otherwise no evidence of trauma. The ureteroscope was withdrawn along with the ureteral access catheter sheath. The patient tolerated the procedure well and was taken to the recovery room in stable condition. MUSIC ROCKS Report: Procedure Acuity: Elective Stone Size and Location: Multiple renal calculi, none exceeding 3 mm in size. Ureteral Dilation: No Ureteral Access Sheath Used: Yes Stone Sent for Analysis: Yes All Stones/Fragments Were Removed with a Basket: Yes Complications: No Preoperative Antibiotics Given: Yes Stent Placed: No If Stent Placed, Was String Left Attached: N/A Discharge Medications: None
[2019-01-29 11:33] VITALS: RESP 16
[2019-01-29 11:36] LABS: Glucose,Whole Blood 140 mg/dL (75-99)
--- NOTE | 2019-01-29 11:57 | FL ---
Fluoroscopy HISTORY: Pain 7 seconds fluoroscopy time supplied to the referring clinician. 1 intraoperative C-arm images docume nt the procedure. See dictated report from urology.
[2019-01-29 12:44] VITALS: BP 126/76; PULSE 81
== END 2019-01-29 13:25 ==
LOC: OR 07:30
PROVIDERS: ATTEND Urology
DX: N20.0 Calculus of kidney (principal); N17.9 Acute kidney failure, unspecified; N26.1 Atrophy of kidney (terminal); E11.22 Type 2 diabetes mellitus with diabetic chronic kidney disease; N18.9 Chronic kidney disease, unspecified; I69.351 Hemiplegia and hemiparesis following cerebral infarction affecting right dominant side; I25.2 Old myocardial infarction; E66.01 Morbid (severe) obesity due to excess calories; Z68.38 Body mass index [BMI] 38.0-38.9, adult; K85.90 Acute pancreatitis without necrosis or infection, unspecified; D64.9 Anemia, unspecified; J95.821 Acute postprocedural respiratory failure; N39.0 Urinary tract infection, site not specified; R32 Unspecified urinary incontinence; Z74.01 Bed confinement status; Z98.84 Bariatric surgery status; Z86.19 Personal history of other infectious and parasitic diseases; Z90.49 Acquired absence of other specified parts of digestive tract; Z87.891 Personal history of nicotine dependence; Z79.02 Long term (current) use of antithrombotics/antiplatelets; Z79.890 Hormone replacement therapy; Z79.4 Long term (current) use of insulin; Z79.899 Other long term (current) drug therapy; Z88.6 Allergy status to analgesic agent; Z88.8 Allergy status to other drugs, medicaments and biological substances
CPT/HCPCS: 84703; 82365; 74018; 52310; C1769; J2250; J1100; J0690; J2405; J2001; J3010; J0330; J2704; J1170

== ENCOUNTER 2020-07-24 15:13 | Emergency (ER) | payer OTHER ==
--- NOTE | 2020-07-24 15:32 | ED ---
General Adult HPI - General Chief complaint: Abdominal Pain Stated complaint: generalized edema Time Seen by Provider: 07/24/20 15:28 Source: patient, EMS Mode of arrival: EMS Limitations: no limitations - History of Present Illness Initial comments: Patient [facility] the ED by ambulance [facility] her [facility] for evaluation. Per patient, the [facility] staff has noticed that she has developed left hand and right flank edema over the past week or so, and they wanted her evaluated. Patient admits to having mild pain to her left hand and right flank regions as well. Patient also admits to having bilateral lower leg pain. Patient has an indwelling Rosado catheter, and she is reportedly currently being treated for UTI. Patient denies trauma or injury, fever or chills, headache, focal numbness/weakness/neuro deficit, chest pain or pressure, dyspnea, cough or cold symptoms, palpitations, dizziness, abdominal pain, nausea or vomiting, diarrhea or constipation, bloody or melanotic stool, hematuria, decreased urine output, back pain, or any other symptoms or complaints. - Related Data Home Medications Medication Instructions Recorded Confirmed Clopidogrel [Plavix] 75 mg PO DAILY 02/15/18 01/23/19 Ergocalciferol (Vitamin D2) 50,000 unit PO Q30D 02/15/18 01/23/19 [Drisdol (50,000 Iu)] FLUoxetine HCL [PROzac] 20 mg PO DAILY 02/15/18 01/23/19 Levothyroxine Sodium [Synthroid] 25 mcg PO DAILY 02/15/18 01/23/19 Melatonin 5 mg PO HS 02/15/18 01/23/19 Multivitamins, Thera [Multivitamin 1 tab PO DAILY 02/15/18 01/23/19 (formulary)] Sennosides [Senokot] 8.6 mg PO BID 02/15/18 01/23/19 Acetaminophen Tab [Tylenol] 650 mg PO Q6H PRN 09/03/18 01/23/19 Magnesium Hydroxide [Milk of 30 ml PO DAILY PRN 09/03/18 01/23/19 Magnesia] Miconazole Nitrate [Miconazole 1 applic TOPICAL BID PRN 09/03/18 01/23/19 Nitrate 2%] polyethylene glycoL 3350 [Miralax] 17 gm PO DAILY PRN 09/03/18 01/23/19 guaiFENesin [guaiFENesin Oral 200 mg PO Q6H PRN 12/18/18 01/23/19 Solution] INSULIN ASPART (NovoLOG) [NovoLOG 3 unit SQ ACHS 01/23/19 01/23/19 (formulary)] Meropenem [Merrem] 1 gm IVPB Q12H 01/23/19 01/23/19 Previous Rx's Medication Instructions Recorded Baclofen 10 mg PO HS PRN 14 Days #14 tab 12/29/18 Darbepoetin Kurtis [Aranesp] 40 mcg SQ Q7D syringe 12/29/18 HYDROcodone/APAP 7.5-325MG [[place] 1 tab PO Q8HR PRN 14 Days #42 tab 12/29/18 7.5-325] Sodium Bicarbonate Tab 650 mg PO BID tab 12/29/18 clonazePAM [KlonoPIN] 0.5 mg PO HS@2100 14 Days #14 tab 12/29/18 Allergies Allergy/AdvReac Type Severity Reaction Status Date / Time aspirin Allergy Rash/Hives Verified 07/24/20 15:29 ibuprofen [From Motrin] Allergy AVOIDS D/T Verified 01/29/19 08:15 KIDNEY FUNCTION sertraline HCl [From Zoloft] Allergy Unknown Verified 01/29/19 08:15 zolpidem tartrate Allergy Unknown Verified 01/29/19 08:15 [From Ambien] gabapentin [From Neurontin] AdvReac Severe SEVERE Verified 01/29/19 08:15 AGITATION Review of Systems ROS Statement: Those systems with pertinent positive or pertinent negative responses have been documented in the HPI. ROS Other: All systems not noted in ROS Statement are negative. Past Medical History Past Medical History: CVA/TIA, Deep Vein Thrombosis (DVT), Myocardial Infarction (OR) Additional Past Medical History / Comment(s): morbid obesity, pancreatitis, history of coma - 10/24/14 - until end of december after suffering from a stroke. Last Myocardial Infarction Date:: 10/2014 History of Any Multi-Drug Resistant Organisms: ESBL, Other MDRO Date of last positivie culture/infection: 07/16/20 ESBL E.coli MDRO Source:: Urine-ESBL Past Surgical History: Cholecystectomy Additional Past Surgical History / Comment(s): Cystoscopy with placement of left double-J catheter 02/16/2018, Gastric bypass 2016 Past Anesthesia/Blood Transfusion Reactions: No Reported Reaction Past Psychological History: Anxiety, Depression, Panic Disorder Smoking Status: Never smoker Past Alcohol Use History: Heavy Past Drug Use History: None Reported - Past Family History Father History Unknown: Yes Family Medical History: Cancer Additional Family Medical History / Comment(s): lung General Exam Limitations: no limitations General appearance: alert, in no apparent distress, other (Patient is morbidly obese) Head exam: Present: atraumatic, normocephalic Eye exam: Present: normal appearance, EOMI ENT exam: Present: mucous membranes moist Neck exam: Present: other (Trachea is in midline) Respiratory exam: Present: normal lung sounds bilaterally. Absent: respiratory distress, wheezes, rales, rhonchi, stridor Cardiovascular Exam: Present: regular rate, normal rhythm, normal heart sounds, other (Normal radial pulses bilaterally) GI/Abdominal exam: Present: soft, other (Pitting edema is noted to right flank panniculus; patient is morbidly obese). Absent: tenderness, guarding Extremities exam: Present: other (Right upper arm PICC line is in place; patient is noted to have left hand edema and mild left forearm tenderness; patient has mild bilateral calf tenderness without any lower extremity swelling or edema appreciated) Back exam: Absent: tenderness, CVA tenderness (R), CVA tenderness (L) Neurological exam: Present: alert, oriented X3. Absent: motor sensory deficit Psychiatric exam: Present: normal affect, normal mood Skin exam: Present: warm, dry, intact, normal color Course Vital Signs 07/24/20 15:21 Temperature 98.7 F Pulse Rate 78 Respiratory 18 Rate Blood Pressure 131/81 O2 Sat by Pulse 98 Oximetry - Reevaluation(s) Reevaluation #1: 07/24/20 18:21 Case and lower extremity venous duplex ultrasound reports were discussed with Dr. Etienne (vascular surgery). He states that chronic DVTs do not need to be treated with anticoagulation. 07/24/20 18:27 Patient denies development of any new symptoms while in the ED. Patient remains alert and breathing comfortably in normal room air oxygen saturation. Patient is aware of her test results, and she feels comfortable being discharged [facility] to her [facility] at this time. Patient was counseled about peripheral edema, UTIs, chronic DVTs and chronic renal insufficiency. Patient was clearly explained return and follow-up instructions, she feels comfortable this plan. Patient was instructed to follow up closely with her primary care provider. EKG Findings - EKG Comments: EKG Findings:: Normal sinus rhythm, no ectopy, ventricular rate of 82 bpm, normal HI and QRS intervals, normal QT interval, rightward axis, no ST or T-wave abnormality Medical Decision Making - Medical Decision Making Patient has no evidence of acute DVT or acute finding on her CT abdomen/pelvis. Patient's chest x-ray does not show evidence of heart failure. I suspect that the patient's peripheral edema is likely secondary to her hypoalbuminemia. Patient's UA specimen was obtained from her indwelling Rosado catheter, and it may represent UTI, however, the patient is currently being treated for a bladder infection with IV antibiotics through her PICC line. I do not suspect an emergent medical condition at this time. Will discharge patient back to her [facility] at this time. - Lab Data Result diagrams: 07/24/20 15:51 07/24/20 15:51 Lab Results 07/24/20 07/24/20 07/24/20 Range/Units 15:51 15:51 15:51 WBC 5.4 (3.8-10.6) k/uL RBC 4.93 (3.80-5.40) m/uL Hgb 13.9 (11.4-16.0) gm/dL Hct 45.3 (34.0-46.0) % MCV 91.9 (80.0-100.0) fL MCH 28.3 (25.0-35.0) pg MCHC 30.8 L (31.0-37.0) g/dL RDW 16.4 H (11.5-15.5) % Plt Count 140 L (150-450) k/uL MPV 7.5 Neutrophils % 68 % Lymphocytes % 21 % Monocytes % 6 % Eosinophils % 4 % Basophils % 0 % Neutrophils # 3.7 (1.3-7.7) k/uL Lymphocytes # 1.2 (1.0-4.8) k/uL Monocytes # 0.3 (0-1.0) k/uL Eosinophils # 0.2 (0-0.7) k/uL Basophils # 0.0 (0-0.2) k/uL Hypochromasia Moderate Anisocytosis Slight PT 9.8 (9.0-12.0) sec INR 0.9 (<1.2) APTT 21.0 L (22.0-30.0) sec Sodium (137-145) mmol/L Potassium (3.5-5.1) mmol/L Chloride (98-107) mmol/L Carbon Dioxide (22-30) mmol/L Anion Gap mmol/L BUN (7-17) mg/dL Creatinine (0.52-1.04) mg/dL Est GFR (CKD-EPI)AfAm (>60 ml/min/1.73 sqM) Est GFR (CKD-EPI)NonAf (>60 ml/min/1.73 sqM) Glucose (74-99) mg/dL Calcium (8.4-10.2) mg/dL Magnesium (1.6-2.3) mg/dL Total Bilirubin (0.2-1.3) mg/dL AST (14-36) U/L ALT (4-34) U/L Alkaline Phosphatase (38-126) U/L Troponin I (0.000-0.034) ng/mL Total Protein (6.3-8.2) g/dL Albumin (3.5-5.0) g/dL Amylase (30-110) U/L Lipase (23-300) U/L Urine Color Light Yellow Urine Appearance Clear (Clear) Urine pH 7.0 (5.0-8.0) Ur Specific [place] 1.020 (1.001-1.035) Urine Protein 3+ H (Negative) Urine Glucose (UA) 2+ H (Negative) Urine Ketones Negative (Negative) Urine Blood 2 (Negative) Urine Nitrite Negative (Negative) Urine Bilirubin Negative (Negative) Urine Urobilinogen <0.2 (<2.0) mg/dL Ur Leukocyte Esterase Large (Negative) Urine RBC 22 H (0-5) /hpf Urine WBC 115 H (0-5) /hpf Urine WBC Clumps Moderate H (None) /hpf Ur Squamous Epith Cells 1 (0-4) /hpf Urine Bacteria Rare H (None) /hpf Urine Mucus Rare H (None) /hpf 07/24/20 07/24/20 Range/Units 15:51 15:51 WBC (3.8-10.6) k/uL RBC (3.80-5.40) m/uL Hgb (11.4-16.0) gm/dL Hct (34.0-46.0) % MCV (80.0-100.0) fL MCH (25.0-35.0) pg MCHC (31.0-37.0) g/dL RDW (11.5-15.5) % Plt Count (150-450) k/uL MPV Neutrophils % % Lymphocytes % % Monocytes % % Eosinophils % % Basophils % % Neutrophils # (1.3-7.7) k/uL Lymphocytes # (1.0-4.8) k/uL Monocytes # (0-1.0) k/uL Eosinophils # (0-0.7) k/uL Basophils # (0-0.2) k/uL Hypochromasia Anisocytosis PT (9.0-12.0) sec INR (<1.2) APTT (22.0-30.0) sec Sodium 139 (137-145) mmol/L Potassium 4.2 (3.5-5.1) mmol/L Chloride 107 (98-107) mmol/L Carbon Dioxide 28 (22-30) mmol/L Anion Gap 4 mmol/L BUN 35 H (7-17) mg/dL Creatinine 2.27 H (0.52-1.04) mg/dL Est GFR (CKD-EPI)AfAm 31 (>60 ml/min/1.73 sqM) Est GFR (CKD-EPI)NonAf 27 (>60 ml/min/1.73 sqM) Glucose 138 H (74-99) mg/dL Calcium 8.2 L (8.4-10.2) mg/dL Magnesium 1.9 (1.6-2.3) mg/dL Total Bilirubin 0.2 (0.2-1.3) mg/dL AST 19 (14-36) U/L ALT 26 (4-34) U/L Alkaline Phosphatase 69 (38-126) U/L Troponin I <0.012 (0.000-0.034) ng/mL Total Protein 5.3 L (6.3-8.2) g/dL Albumin 2.7 L (3.5-5.0) g/dL Amylase <30 L (30-110) U/L Lipase 47 (23-300) U/L Urine Color Urine Appearance (Clear) Urine pH (5.0-8.0) Ur Specific [place] (1.001-1.035) Urine Protein (Negative) Urine Glucose (UA) (Negative) Urine Ketones (Negative) Urine Blood (Negative) Urine Nitrite (Negative) Urine Bilirubin (Negative) Urine Urobilinogen (<2.0) mg/dL Ur Leukocyte Esterase (Negative) Urine RBC (0-5) /hpf Urine WBC (0-5) /hpf Urine WBC Clumps (None) /hpf Ur Squamous Epith Cells (0-4) /hpf Urine Bacteria (None) /hpf Urine Mucus (None) /hpf - Radiology Data Radiology results: report reviewed (Chest x-ray: There is possible new small left pleural effusion or infiltrate left lung base compared to old exam, no heart failure) Noncontrast CT abdomen/pelvis: There is some patchy atelectasis at the lung bases without change. There is extensive subcutaneous edema around the abdomen which is new compared to old exam. Right renal atrophy with calcifications and cystic changes. Right renal cysts are increased compared to old exam. Nonobstructing left renal calculi. There is decrease in left renal calculi compared to old exam. Left upper extremity venous duplex ultrasound: No evidence of acute deep venous thrombosis in the left arm. Bilateral lower extremity venous duplex ultrasounds: There is no acute deep vein thrombosis. There is evidence for extensive chronic deep vein thrombosis in both legs. Disposition Clinical Impression: Peripheral edema, Chronic renal insufficiency, Hypoalbuminemia, Chronic deep vein thrombosis of lower extremity Narrative: Possible UTI Disposition: HOME SELF-CARE Condition: Stable Instructions (If sedation given, give patient instructions): Urinary Tract Infection in Women (ED), Chronic Kidney Disease (ED), Edema (ED) Additional Instructions: Return to the ER immediately should you develop new or worsening pain, a fever, chest pain, shortness of breath, feeling dizzy or faint, vomiting, or new or worsening symptoms. Follow up closely with your primary care provider. Is patient prescribed a controlled substance at d/c from ED?: No Referrals: Roberto Knight MD [Primary Care Provider] - 1-2 days Time of Disposition: 18:29
[2020-07-24 16:03] LABS: Anisocytosis Slight; Basophils % (A) 0 %; Eosinophils # (A) 0.2 k/uL (0-0.7); Eosinophils % (A) 4 %; HCT 45.3 % (34.0-46.0); HGB 13.9 gm/dL (11.4-16.0); Hypochromasia Moderate; Lymphocytes # (A) 1.2 k/uL (1.0-4.8); Lymphocytes % (A) 21 %; MCH 28.3 pg (25.0-35.0); MCHC 30.8 g/dL (31.0-37.0); MCV 91.9 fL (80.0-100.0); Mean Platelet Volume 7.5; Monocytes # (A) 0.3 k/uL (0-1.0); Monocytes % (A) 6 %; Neutrophils # (A) 3.7 k/uL (1.3-7.7); Neutrophils % (A) 68 %; Platelet Count 140 k/uL (150-450); RBC 4.93 m/uL (3.80-5.40); RDW 16.4 % (11.5-15.5); WBC 5.4 k/uL (3.8-10.6)
[2020-07-24 16:08] LABS: Color,Urine Light Yellow
[2020-07-24 16:09] LABS: Appearance,Urine Clear (Clear); Bilirubin,Urine Negative (Negative); Blood,Urine 2 (Negative); Glucose,Urine (UA) 2+ (Negative); Ketones,Urine Negative (Negative); Leukocyte Esterase,Urine Large (Negative); Nitrite,Urine Negative (Negative); Protein,Urine 3+ (Negative); Urobilinogen,Urine <0.2 mg/dL (<2.0)
[2020-07-24 16:11] LABS: Bacteria,Urine Rare /hpf; Mucus,Urine Rare /hpf; RBC,Urine 22 /hpf (0-5); Squamous Epithelial Cell,Urine 1 /hpf (0-4); WBC,Urine 115 /hpf (0-5)
[2020-07-24 16:16] LABS: ALT 26 U/L (4-34); AST 19 U/L (14-36); African American GFR (CKD) 31 (>60 ml/min/1.73 sqM); Albumin 2.7 g/dL (3.5-5.0); Alkaline Phosphatase 69 U/L (38-126); Amylase <30 U/L (30-110); Anion Gap 4 mmol/L; Blood Urea Nitrogen 35 mg/dL (7-17); Calcium 8.2 mg/dL (8.4-10.2); Carbon Dioxide 28 mmol/L (22-30); Chloride 107 mmol/L (98-107); Glucose 138 mg/dL (74-99); Lipase 47 U/L (23-300); Magnesium 1.9 mg/dL (1.6-2.3); Non-African American GFR(CKD) 27 (>60 ml/min/1.73 sqM); Potassium 4.2 mmol/L (3.5-5.1); Sodium 139 mmol/L (137-145); Total Bilirubin 0.2 mg/dL (0.2-1.3); Total Protein 5.3 g/dL (6.3-8.2)
[2020-07-24 16:18] LABS: INR 0.9 (<1.2); Prothrombin Time 9.8 sec (9.0-12.0)
--- NOTE | 2020-07-24 16:28 | XR ---
EXAMINATION TYPE: XR chest 1V portable DATE OF EXAM: 07/24/2020 COMPARISON: 07/17/2018 HISTORY: Edema. TECHNIQUE: FINDINGS: There is no heart failure nor confluent pneumonic infiltrate. There appears to be some blun ting left costophrenic angle. Exam limited by patient's size. Bony thorax is intact. IMPRESSION: There is possible new small left pleural effusion or infiltrate left lung base compared t o old exam. No heart failure.
--- NOTE | 2020-07-24 17:27 | CT ---
EXAMINATION TYPE: CT abdomen pelvis wo con DATE OF EXAM: 07/24/2020 COMPARISON: 07/16/2018 HISTORY: Generalized swelling and pain per patient. CT DLP: 2524.2 mGycm Automated exposure control for dose reduction was used. There is some mild linear infiltrate and atelectasis at the lung bases. Heart appears slightly enlarg ed. There is no pericardial effusion. There are clips from cholecystectomy. Liver and spleen are intact. There is no evidence of pancreatic mass. The stomach is intact. There is no adrenal mass. There is small deformed right kidney with cortical thinning and calcificati on. Left kidney shows multiple small calculi up to 2 mm. There is no hydronephrosis. Ureters are not dilated. There is Rosado catheter in the urinary bladder. There is subcutaneous edema around the abdom en. There is no mesenteric edema. There is no ascites or free air. There is no bowel obstruction. Uterus is anteverted. Appendix appears normal. The lumbar vertebra have normal alignment. There is no compre ssion fracture. The bony pelvis is intact. Hip joints are intact. IMPRESSION: There is some patchy atelectasis at the lung bases without change. There is extensive subcutaneous ed margaret around the abdomen which is new compared to old exam. Right renal atrophy with calcifications and cystic changes. Right renal cysts are increased compared to old exam. Nonobstructing left renal calculi. There is decrease in the left renal calculi compared to old exam.
--- NOTE | 2020-07-24 18:01 | US ---
EXAMINATION TYPE: US venous doppler duplex UE LT DATE OF EXAM: 07/24/2020 COMPARISON: NONE CLINICAL HISTORY: left hand edema. SIDE PERFORMED: Left Left Arm: Negative for DVT IMPRESSION: No evidence of deep vein thrombosis in the left arm.
--- NOTE | 2020-07-24 18:02 | US ---
EXAMINATION TYPE: US venous doppler duplex LE DATE OF EXAM: 07/24/2020 5:46 PM COMPARISON: NONE CLINICAL HISTORY: bilateral lower leg pain. SIDE PERFORMED: Bilateral TECHNIQUE: The lower extremity deep venous system is examined utilizing real time linear array sonog caleb with graded compression, doppler sonography and color-flow sonography. VESSELS IMAGED: Common Femoral Vein Deep Femoral Vein Greater Saphenous Vein * Femoral Vein Very limited exam due to body habitus, edema, small caliber veins, and calcified arteries. Right Leg: Positive for chronic appearing DVT Left Leg: Positive for chronic appearing DVT Unable to visualize distal FV or pop veins bilaterally. The vessels imaged in upper leg have small ca liber, thickened fuchs, thready flow , and stranding, all compatible with chronic DVT. IMPRESSION: There is no acute deep vein thrombosis. There is evidence for extensive chronic deep vein thrombosis in both legs.
[2020-07-24] MEDS ORDERED: MORPHINE SULFATE 4 MG/ML SYRINGE IVP STA (18:03)
[2020-07-24 19:02] VITALS: BP 148/88; PULSE 75; RESP 16; TEMP 98.1
== END 2020-07-24 19:18 | disposition home or self-care (01) ==
LOC: EC 15:13
DX: R60.0 Localized edema (principal); N18.9 Chronic kidney disease, unspecified; E88.09 Other disorders of plasma-protein metabolism, not elsewhere classified; I82.503 Chronic embolism and thrombosis of unspecified deep veins of lower extremity, bilateral; E66.01 Morbid (severe) obesity due to excess calories; I25.2 Old myocardial infarction; Z79.02 Long term (current) use of antithrombotics/antiplatelets; Z86.73 Personal history of transient ischemic attack (TIA), and cerebral infarction without residual deficits; Z88.6 Allergy status to analgesic agent; Z88.8 Allergy status to other drugs, medicaments and biological substances; Z98.84 Bariatric surgery status; Z68.42 Body mass index [BMI] 45.0-49.9, adult
CPT/HCPCS: 99285; 96374; 36415; 93005; 80053; 82150; 83690; 83735; 84484; 85025; 85610; 85730; 81001; 87086; 71045; 93970; 93971; 74176; J2270

== ENCOUNTER 2020-07-28 | Inpatient (IN) | payer OTHER | END 2020-07-29 15:26 | DRG 699 | PROVIDERS: ADMIT Internal Medicine | DX: T83.518A Infection and inflammatory reaction due to other urinary catheter, initial encounter (principal); N17.9 Acute kidney failure, unspecified; Z16.12 Extended spectrum beta lactamase (ESBL) resistance; E46 Unspecified protein-calorie malnutrition; E87.2 Acidosis; I69.354 Hemiplegia and hemiparesis following cerebral infarction affecting left non-dominant side; I82.503 Chronic embolism and thrombosis of unspecified deep veins of lower extremity, bilateral; Z68.42 Body mass index [BMI] 45.0-49.9, adult; E66.01 Morbid (severe) obesity due to excess calories; D63.1 Anemia in chronic kidney disease; E11.22 Type 2 diabetes mellitus with diabetic chronic kidney disease; Y84.6 Urinary catheterization as the cause of abnormal reaction of the patient, or of later complication, without mention of misadventure at the time of the procedure; N18.32 Chronic kidney disease, stage 3b; Z74.01 Bed confinement status; B96.20 Unspecified Escherichia coli [E. coli] as the cause of diseases classified elsewhere; E03.9 Hypothyroidism, unspecified; F32.9 Major depressive disorder, single episode, unspecified; F41.0 Panic disorder [episodic paroxysmal anxiety]; I12.9 Hypertensive chronic kidney disease with stage 1 through stage 4 chronic kidney disease, or unspecified chronic kidney disease; I25.2 Old myocardial infarction; Z79.02 Long term (current) use of antithrombotics/antiplatelets; Z79.4 Long term (current) use of insulin; Z20.822 Contact with and (suspected) exposure to COVID-19; Z79.890 Hormone replacement therapy; Z79.899 Other long term (current) drug therapy; Z86.19 Personal history of other infectious and parasitic diseases; Z87.440 Personal history of urinary (tract) infections; Z87.891 Personal history of nicotine dependence; Z98.84 Bariatric surgery status; Z90.49 Acquired absence of other specified parts of digestive tract; Z88.6 Allergy status to analgesic agent; Z88.8 Allergy status to other drugs, medicaments and biological substances; Z80.1 Family history of malignant neoplasm of trachea, bronchus and lung | CPT/HCPCS: 36415; 71045; 71250; 74176; 76770; 80048; 80053; 80061; 81001; 82105; 82150; 82272; 83605; 83690; 83735; 83880; 84443; 84484; 85025; 85610; 85613; 85730; 86146; 86147; 87040; 87086; 87635; 93005; 93306; 93970; 96374; 99285 ==

== ENCOUNTER 2020-09-29 05:27 | Inpatient (IN) | payer OTHER ==
--- NOTE | 2020-09-29 06:32 | ED ---
General Adult HPI - General Source: patient, EMS, RN notes reviewed Mode of arrival: EMS Limitations: no limitations <Zeke Foster - Last Filed: 09/29/20 06:50> <Hill German - Last Filed: 10/02/20 16:35> - General Chief complaint: Recheck/Abnormal Lab/Rx Stated complaint: low hemoglobin Time Seen by Provider: 09/29/20 06:11 - History of Present Illness Initial comments: This is a 35-year-old female presents emergency Department with chief complaint of anemia. Patient was sent in by [facility] for reported hemoglobin of 6.0. Patient does have history of anemia patient had issues with the pain is in the p ast she is currently on Eliquis. Patient states she has no active bleeding but states that she just ended her period and for one month. Nursing staff informed the patient had issues with this causing her anemia in the past. No chest pain or shortness breath no other complaints. (Zeke Foster) - Related Data Home Medications Medication Instructions Recorded Confirmed Ergocalciferol (Vitamin D2) 50,000 unit PO QMONTHLY 02/15/18 09/29/20 [Drisdol (50,000 Iu)] FLUoxetine HCL [PROzac] 20 mg PO DAILY@0800 02/15/18 09/29/20 Levothyroxine Sodium [Synthroid] 25 mcg PO HS@199902/15/18 09/29/20 Melatonin 5 mg PO HS@199902/15/18 09/29/20 Multivitamins, Thera [Multivitamin 1 tab PO DAILY@0800 02/15/18 09/29/20 (formulary)] Acetaminophen Tab [Tylenol] 650 mg PO Q6H PRN 09/03/18 09/29/20 Baclofen 10 mg PO HS@199907/25/20 09/29/20 Carvedilol [Coreg] 3.125 mg PO BID@0800,1600 07/25/20 09/29/20 Insulin Aspart [NovoLOG] See Protocol SQ ACHS@07,11,16,20 07/25/20 09/29/20 Insulin Glargine,Hum.rec.anlog 14 unit SQ HS@199907/25/20 09/29/20 [Lantus Solostar Pen] Sennosides/Docusate Sodium [Senna 2 tab PO HS@199907/25/20 09/29/20 Plus 8.6-50 mg Softgel] amLODIPine [Norvasc] 5 mg PO DAILY@0800 07/25/20 09/29/20 Apixaban [Eliquis] 5 mg PO BID@0800,1600 09/29/20 09/29/20 Atorvastatin [Lipitor] 20 mg PO HS@199909/29/20 09/29/20 Furosemide [Lasix] 20 mg PO DAILY@0800 09/29/20 09/29/20 Sodium Bicarbonate Tab 650 mg PO BID@0800,1600 09/29/20 09/29/20 clonazePAM [KlonoPIN] 0.5 mg PO HS@199909/29/20 09/29/20 Previous Rx's Medication Instructions Recorded HYDROcodone/APAP 7.5-325MG [[place] 1 tab PO Q12HR PRN 3 Days #6 tab 07/29/20 7.5-325] traMADol HCl [Ultram] 50 mg PO TID@0500,1300,2100 3 Days 07/29/20 #9 tab Allergies Allergy/AdvReac Type Severity Reaction Status Date / Time aspirin Allergy Rash/Hives Verified 09/29/20 07:34 sertraline HCl [From Zoloft] Allergy Unknown Verified 09/29/20 07:34 zolpidem tartrate Allergy Unknown Verified 09/29/20 07:34 [From Ambien] gabapentin [From Neurontin] AdvReac Severe SEVERE Verified 09/29/20 07:34 AGITATION ibuprofen [From Motrin] AdvReac AVOIDS D/T Verified 09/29/20 07:34 KIDNEY FUNCTION Review of Systems ROS Other: All systems not noted in ROS Statement are negative. <Zeke Foster - Last Filed: 09/29/20 06:50> ROS Other: All systems not noted in ROS Statement are negative. <Hill German - Last Filed: 10/02/20 16:35> ROS Statement: Those systems with pertinent positive or pertinent negative responses have been documented in the HPI. Past Medical History Past Medical History: CVA/TIA, Deep Vein Thrombosis (DVT), Myocardial Infarction ([place]) Additional Past Medical History / Comment(s): morbid obesity, pancreatitis, history of coma - 10/24/14 - until end december after suffering from a stroke. Last Myocardial Infarction Date:: 10/2014 History of Any Multi-Drug Resistant Organisms: ESBL, Other MDRO Date of last positivie culture/infection: 07/16/20 ESBL E.coli MDRO Source:: Urine-ESBL Past Surgical History: Cholecystectomy Additional Past Surgical History / Comment(s): Cystoscopy with placement of left double-J catheter 02/16/2018, Gastric bypass 2016 Past Anesthesia/Blood Transfusion Reactions: No Reported Reaction Past Psychological History: Anxiety, Depression, Panic Disorder Smoking Status: Never smoker Past Alcohol Use History: None Reported Past Drug Use History: Marijuana - Past Family History Father History Unknown: Yes Family Medical History: Cancer Additional Family Medical History / Comment(s): lung <Zeke Foster - Last Filed: 09/29/20 06:50> General Exam Limitations: no limitations General appearance: alert, in no apparent distress Head exam: Present: atraumatic, normocephalic, normal inspection Neck exam: Present: normal inspection, full ROM. Absent: tenderness, meningism us, lymphadenopathy Respiratory exam: Present: normal lung sounds bilaterally. Absent: respiratory distress, wheezes, rales, rhonchi, stridor Cardiovascular Exam: Present: regular rate, normal rhythm, normal heart sounds. Absent: systolic murmur, diastolic murmur, rubs, gallop, clicks GI/Abdominal exam: Present: soft, normal bowel sounds. Absent: distended, tenderness, guarding, rebound, rigid <Zeke Foster - Last Filed: 09/29/20 06:50> Course Vital Signs 09/29/20 09/29/20 09/29/20 05:29 06:27 07:42 Temperature 98.2 F 98.2 F Pulse Rate 92 88 82 Respiratory 18 18 16 Rate Blood Pressure 136/72 135/82 143/84 O2 Sat by Pulse 90 L 100 100 Oximetry 09/29/20 09/29/20 09/29/20 09:01 09:11 09:41 Temperature 98.2 F 98.5 F 98.3 F Pulse Rate 87 90 91 Respiratory 16 16 16 Rate Blood Pressure 151/82 138/80 108/93 O2 Sat by Pulse 99 100 99 Oximetry 09/29/20 09/29/20 09/29/20 11:43 14:26 15:16 Temperature 98.3 F Pulse Rate 79 87 79 Respiratory 16 18 22 Rate Blood Pressure 128/76 120/75 124/79 O2 Sat by Pulse 100 99 99 Oximetry Medical Decision Making - Lab Data Result diagrams: 09/29/20 06:21 09/29/20 06:21 <Zeke Foster - Last Filed: 09/29/20 06:50> - Lab Data Result diagrams: 10/02/20 09:24 10/02/20 09:24 <Hill German - Last Filed: 10/02/20 16:35> - Medical Decision Making 35-year-old female with chronic anemia hemoglobin 6.6. Patient had excessive bl eeding from and she'll cycle while being on Eliquis. Patient we transfuse 1 unit will be admitted to Dr. Barnes service for further evaluation treatment. (Zeke Foster) I saw this patient in conjunction with the physician assistant professor of education. I performed independent history and physical exam. Agree with case management. (Hill German) - Lab Data Lab Results 09/29/20 09/29/20 09/29/20 Range/Units 06:21 06:21 06:21 WBC 6.1 (3.8-10.6) k/uL RBC 2.39 L (3.80-5.40) m/uL Hgb 6.6 L* D (11.4-16.0) gm/dL Hct 21.1 L (34.0-46.0) % MCV 88.4 (80.0-100.0) fL MCH 27.8 (25.0-35.0) pg MCHC 31.4 (31.0-37.0) g/dL RDW 16.6 H (11.5-15.5) % Plt Count 181 (150-450) k/uL MPV 8.5 Neutrophils % 68 % Lymphocytes % 21 % Monocytes % 6 % Eosinophils % 3 % Basophils % 0 % Neutrophils # 4.1 (1.3-7.7) k/uL Lymphocytes # 1.3 (1.0-4.8) k/uL Monocytes # 0.4 (0-1.0) k/uL Eosinophils # 0.2 (0-0.7) k/uL Basophils # 0.0 (0-0.2) k/uL Hypochromasia Marked Poikilocytosis Moderate Anisocytosis Slight ESR (0-20) mm/hr Retic Count (0.5-2.0) % Haptoglobin (31.2-198.0) mg/dL PT 9.5 (9.0-12.0) sec INR 0.9 (<1.2) APTT 23.9 (22.0-30.0) sec Sodium 133 L (137-145) mmol/L Potassium 4.1 (3.5-5.1) mmol/L Chloride 104 (98-107) mmol/L Carbon Dioxide 23 (22-30) mmol/L Anion Gap 6 mmol/L BUN 25 H (7-17) mg/dL Creatinine 2.04 H (0.52-1.04) mg/dL Est GFR (CKD-EPI)AfAm 36 (>60 ml/min/1.73 sqM) Est GFR (CKD-EPI)NonAf 31 (>60 ml/min/1.73 sqM) Glucose 229 H (74-99) mg/dL Calcium 7.9 L (8.4-10.2) mg/dL Iron (50-170) ug/dL TIBC (228-460) ug/dL % Saturation (12.00-45.00) Ferritin (10.0-291.0) ng/mL Total Bilirubin 0.1 L (0.2-1.3) mg/dL AST 20 (14-36) U/L ALT 7 (4-34) U/L Alkaline Phosphatase 73 (38-126) U/L Lactate Dehydrogenase (313-618) U/L Total Protein 5.7 L (6.3-8.2) g/dL Albumin 2.9 L (3.5-5.0) g/dL Rheumatoid Factor (0-15) IU/mL Blood Type Blood Type Recheck Bld Type Recheck Status Antibody Screen Crossmatch Spec Expiration Date 09/29/20 09/29/20 09/29/20 Range/Units 06:21 06:21 06:21 WBC (3.8-10.6) k/uL RBC (3.80-5.40) m/uL Hgb (11.4-16.0) gm/dL Hct (34.0-46.0) % MCV (80.0-100.0) fL MCH (25.0-35.0) pg MCHC (31.0-37.0) g/dL RDW (11.5-15.5) % Plt Count (150-450) k/uL MPV Neutrophils % % Lymphocytes % % Monocytes % % Eosinophils % % Basophils % % Neutrophils # (1.3-7.7) k/uL Lymphocytes # (1.0-4.8) k/uL Monocytes # (0-1.0) k/uL Eosinophils # (0-0.7) k/uL Basophils # (0-0.2) k/uL Hypochromasia Poikilocytosis Anisocytosis ESR 91 H (0-20) mm/hr Retic Count 3.1 H (0.5-2.0) % Haptoglobin (31.2-198.0) mg/dL PT (9.0-12.0) sec INR (<1.2) APTT (22.0-30.0) sec Sodium (137-145) mmol/L Potassium (3.5-5.1) mmol/L Chloride (98-107) mmol/L Carbon Dioxide (22-30) mmol/L Anion Gap mmol/L BUN (7-17) mg/dL Creatinine (0.52-1.04) mg/dL Est GFR (CKD-EPI)AfAm (>60 ml/min/1.73 sqM) Est GFR (CKD-EPI)NonAf (>60 ml/min/1.73 sqM) Glucose (74-99) mg/dL Calcium (8.4-10.2) mg/dL Iron 17 L (50-170) ug/dL TIBC 306 (228-460) ug/dL % Saturation 5.56 L (12.00-45.00) Ferritin 6.2 L (10.0-291.0) ng/mL Total Bilirubin (0.2-1.3) mg/dL AST (14-36) U/L ALT (4-34) U/L Alkaline Phosphatase (38-126) U/L Lactate Dehydrogenase 345 (313-618) U/L Total Protein (6.3-8.2) g/dL Albumin (3.5-5.0) g/dL Rheumatoid Factor 6 (0-15) IU/mL Blood Type A Positive Blood Type Recheck A Pos Bld Type Recheck Status No Antibody Screen NEGATIVE Crossmatch See Detail Spec Expiration Date 10/02/2020 - 232009/29/20 Range/Units 06:21 WBC (3.8-10.6) k/uL RBC (3.80-5.40) m/uL Hgb (11.4-16.0) gm/dL Hct (34.0-46.0) % MCV (80.0-100.0) fL MCH (25.0-35.0) pg MCHC (31.0-37.0) g/dL RDW (11.5-15.5) % Plt Count (150-450) k/uL MPV Neutrophils % % Lymphocytes % % Monocytes % % Eosinophils % % Basophils % % Neutrophils # (1.3-7.7) k/uL Lymphocytes # (1.0-4.8) k/uL Monocytes # (0-1.0) k/uL Eosinophils # (0-0.7) k/uL Basophils # (0-0.2) k/uL Hypochromasia Poikilocytosis Anisocytosis ESR (0-20) mm/hr Retic Count (0.5-2.0) % Haptoglobin 198.0 (31.2-198.0) mg/dL PT (9.0-12.0) sec INR (<1.2) APTT (22.0-30.0) sec Sodium (137-145) mmol/L Potassium (3.5-5.1) mmol/L Chloride (98-107) mmol/L Carbon Dioxide (22-30) mmol/L Anion Gap mmol/L BUN (7-17) mg/dL Creatinine (0.52-1.04) mg/dL Est GFR (CKD-EPI)AfAm (>60 ml/min/1.73 sqM) Est GFR (CKD-EPI)NonAf (>60 ml/min/1.73 sqM) Glucose (74-99) mg/dL Calcium (8.4-10.2) mg/dL Iron (50-170) ug/dL TIBC (228-460) ug/dL % Saturation (12.00-45.00) Ferritin (10.0-291.0) ng/mL Total Bilirubin (0.2-1.3) mg/dL AST (14-36) U/L ALT (4-34) U/L Alkaline Phosphatase (38-126) U/L Lactate Dehydrogenase (313-618) U/L Total Protein (6.3-8.2) g/dL Albumin (3.5-5.0) g/dL Rheumatoid Factor (0-15) IU/mL Blood Type Blood Type Recheck Bld Type Recheck Status Antibody Screen Crossmatch Spec Expiration Date Critical Care Time Critical Care Time: Yes Total Critical Care Time: 35 <Zeke Foster - Last Filed: 09/29/20 06:50> Disposition <Zeke Foster - Last Filed: 09/29/20 06:50> <Hill German - Last Filed: 10/02/20 16:35> Clinical Impression: Anemia Disposition: ADMITTED IP TO THIS [facility] Condition: Fair
[2020-09-29 06:39] LABS: Anisocytosis Slight; Basophils % (A) 0 %; Eosinophils # (A) 0.2 k/uL (0-0.7); Eosinophils % (A) 3 %; HCT 21.1 % (34.0-46.0); Hypochromasia Marked; Lymphocytes # (A) 1.3 k/uL (1.0-4.8); Lymphocytes % (A) 21 %; MCH 27.8 pg (25.0-35.0); MCHC 31.4 g/dL (31.0-37.0); MCV 88.4 fL (80.0-100.0); Mean Platelet Volume 8.5; Monocytes # (A) 0.4 k/uL (0-1.0); Monocytes % (A) 6 %; Neutrophils # (A) 4.1 k/uL (1.3-7.7); Neutrophils % (A) 68 %; Platelet Count 181 k/uL (150-450); Poikilocytosis Moderate; RBC 2.39 m/uL (3.80-5.40); RDW 16.6 % (11.5-15.5); WBC 6.1 k/uL (3.8-10.6)
[2020-09-29 06:45] LABS: INR 0.9 (<1.2); Partial Thromboplastin Time 23.9 sec (22.0-30.0); Prothrombin Time 9.5 sec (9.0-12.0)
[2020-09-29 06:48] LABS: Albumin 2.9 g/dL (3.5-5.0); Calcium 7.9 mg/dL (8.4-10.2); Potassium 4.1 mmol/L (3.5-5.1); Total Bilirubin 0.1 mg/dL (0.2-1.3); Total Protein 5.7 g/dL (6.3-8.2)
[2020-09-29 06:49] LABS: HGB 6.6 gm/dL (11.4-16.0)
[2020-09-29] MEDS ORDERED: NALOXONE 0.4 MG/ML 1 ML VIAL IV PRN (06:52)
[2020-09-29] MEDS ORDERED: ACETAMINOPHEN TAB 325 MG TAB PO PRN (07:44)
[2020-09-29] MEDS: SODIUM BICARBONATE TAB 650 MG TAB PO SCH ×2 (08:37→17:29)
[2020-09-29] MEDS: FUROSEMIDE 20 MG TAB PO SCH (08:37)
[2020-09-29] MEDS: amLODIPine 5 MG TAB PO SCH (08:38)
[2020-09-29] MEDS: carvediloL 3.125 MG TAB PO SCH ×2 (08:38→17:29)
[2020-09-29] MEDS: FLUoxetine HCL 20 MG CAP PO SCH (08:38)
[2020-09-29] MEDS: MULTIVITAMINS, THERA 1 EACH TAB PO SCH (08:38)
[2020-09-29] MEDS ORDERED: clonazePAM 0.5 MG TAB PO STA (08:41)
[2020-09-29] MEDS: HYDROcodone/APAP 7.5-325MG 1 EACH TAB PO PRN ×2 (08:47→22:46)
[2020-09-29] MEDS: traMADol 50 MG TAB PO SCH ×2 (14:28→20:45)
[2020-09-29] MEDS: ACETAMINOPHEN TAB 325 MG TAB PO PRN (17:31)
--- NOTE | 2020-09-29 17:31 | P.OBCN ---
History of Present Illness Consult date: 09/29/20 Reason for consult: other (Anemia, history of vaginal bleeding) History of present illness: The patient is a 35-year-old 0 para 0 who presented to the hospital [facility] with a diagnosis of anemia. She was found hemoglobin of 6.6. She reportedly has a history of approximately 1 month of heavy vaginal bleeding which has resolved as of admission. Historically she feels as if she's had a history of very irregular cycles have always been somewhat heavy but is a very poor historian. She does carry a diagnosis of previous DVT, [place], and possible stroke and has been on a blood thinner for some time. In the hospital, she has received 1 unit of blood in transfusion which she has tolerated well. Obstetrical history: 0 para 0 with no history of sexual activity since she was a teenager. She is therefore not using any particular form of contraception at this time. Gynecologic history: Unremarkable the patient is a poor historian. She has not seen a tamping machine operator in many years reportedly. She denies any history of infections to include STDs. As noted above, her cycles have been very irregular throughout the course of her menstrual history. Review of Systems Review of systems is Confined to history of present illness. Past Medical History Past Medical History: CVA/TIA, Deep Vein Thrombosis (DVT), Myocardial Infarction ([place]) Additional Past Medical History / Comment(s): morbid obesity, pancreatitis, history of coma - 10/24/14 - until end of december after suffering from a stroke. Last Myocardial Infarction Date:: 10/2014 History of Any Multi-Drug Resistant Organisms: ESBL, Other MDRO Year Discovered:: 07/16/20 ESBL E.coli MDRO Source:: Urine-ESBL Past Surgical History: Cholecystectomy Additional Past Surgical History / Comment(s): Cystoscopy with placement of left double-J catheter 02/16/2018, Gastric bypass 2016 Past Anesthesia/Blood Transfusion Reactions: No Reported Reaction Past Psychological History: Anxiety, Depression, Panic Disorder Smoking Status: Never smoker Past Alcohol Use History: None Reported Past Drug Use History: Marijuana - Past Family History Father History Unknown: Yes Family Medical History: Cancer Additional Family Medical History / Comment(s): lung Medications and Allergies Home Medications Medication Instructions Recorded Confirmed Type Ergocalciferol (Vitamin D2) 50,000 unit PO QMONTHLY 02/15/18 09/29/20 History [Drisdol (50,000 Iu)] FLUoxetine HCL [PROzac] 20 mg PO DAILY@0800 02/15/18 09/29/20 History Levothyroxine Sodium [Synthroid] 25 mcg PO HS@199902/15/18 09/29/20 History Melatonin 5 mg PO HS@199902/15/18 09/29/20 History Multivitamins, Thera [Multivitamin 1 tab PO DAILY@0800 02/15/18 09/29/20 History (formulary)] Acetaminophen Tab [Tylenol] 650 mg PO Q6H PRN 09/03/18 09/29/20 History Baclofen 10 mg PO HS@199907/25/20 09/29/20 History Carvedilol [Coreg] 3.125 mg PO BID@0800,1600 07/25/20 09/29/20 History Insulin Aspart [NovoLOG] See Protocol SQ ACHS@07,11,16,20 07/25/20 09/29/20 History Insulin Glargine,Hum.rec.anlog 14 unit SQ HS@199907/25/20 09/29/20 History [Lantus Solostar] Sennosides/Docusate Sodium [Senna 2 tab PO HS@199907/25/20 09/29/20 History Plus 8.6-50 mg Softgel] amLODIPine [Norvasc] 5 mg PO DAILY@0800 07/25/20 09/29/20 History HYDROcodone/APAP 7.5-325MG [[place] 1 tab PO Q12HR PRN 3 Days #6 tab 07/29/20 09/29/20 Rx 7.5-325] traMADol HCl [Ultram] 50 mg PO TID@0500,1300,2100 3 Days 07/29/20 09/29/20 Rx #9 tab Apixaban [Eliquis] 5 mg PO BID@0800,1600 09/29/20 09/29/20 History Atorvastatin [Lipitor] 20 mg PO HS@199909/29/20 09/29/20 History Furosemide [Lasix] 20 mg PO DAILY@0800 09/29/20 09/29/20 History Sodium Bicarbonate Tab 650 mg PO BID@0800,1600 09/29/20 09/29/20 History clonazePAM [KlonoPIN] 0.5 mg PO HS@199909/29/20 09/29/20 History Allergies Allergy/AdvReac Type Severity Reaction Status Date / Time aspirin Allergy Rash/Hives Verified 09/29/20 07:34 sertraline HCl [From Zoloft] Allergy Unknown Verified 09/29/20 07:34 zolpidem tartrate Allergy Unknown Verified 09/29/20 07:34 [From Ambien] gabapentin [From Neurontin] AdvReac Severe SEVERE Verified 09/29/20 07:34 AGITATION ibuprofen [From Motrin] AdvReac AVOIDS D/T Verified 09/29/20 07:34 KIDNEY FUNCTION Exam Vital Signs Temp Pulse Resp BP Pulse Ox 09/29/20 15:16 79 22 124/79 99 09/29/20 14:26 87 18 120/75 99 09/29/20 11:43 98.3 F 79 16 128/76 100 09/29/20 09:41 98.3 F 91 16 108/93 99 09/29/20 09:11 98.5 F 90 16 138/80 100 09/29/20 09:01 98.2 F 87 16 151/82 99 09/29/20 07:42 98.2 F 82 16 143/84 100 09/29/20 06:27 88 18 135/82 100 09/29/20 05:29 98.2 F 92 18 136/72 90 L Intake and Output 09/29/20 09/29/20 09/29/20 06:59 14:59 22:59 Intake Total 310 Output Total 200 Balance 310 -200 Intake: Blood Product 310 Rc As-1 Unit 310 [id number] Output: Urine 200 Uretheral ([place]) 200 Other: Weight 128.82 kg In general, this is a moderately obese white female in no acute distress. She is alert and oriented but does have some difficulty answering questions regarding history and time lines. Her heart has a regular rhythm and rate without murmur. Her lungs are clear to auscultation bilaterally in all [place]. Her abdomen is obese, soft, nontender, without masses. Her extremities are without any cyanosis, clubbing, or edema and are nontender to palpation bilate rally. Pelvic examination is declined by the patient as is the option of pelvic ultrasound. Results Result Diagrams: 09/29/20 06:21 09/29/20 06:21 Abnormal Lab Results - Last 24 Hours (Table) 09/29/20 09/29/20 09/29/20 Range/Units 06:21 06:21 06:21 RBC 2.39 L (3.80-5.40) m/uL Hgb 6.6 L* D (11.4-16.0) gm/dL Hct 21.1 L (34.0-46.0) % RDW 16.6 H (11.5-15.5) % Sodium 133 L (137-145) mmol/L BUN 25 H (7-17) mg/dL Creatinine 2.04 H (0.52-1.04) mg/dL Glucose 229 H (74-99) mg/dL Calcium 7.9 L (8.4-10.2) mg/dL Total Bilirubin 0.1 L (0.2-1.3) mg/dL Total Protein 5.7 L (6.3-8.2) g/dL Albumin 2.9 L (3.5-5.0) g/dL Crossmatch See Detail Assessment and Plan (1) Anemia Current Visit: Yes Status: Acute Code(s): D64.9 - ANEMIA, UNSPECIFIED SNOMED Code(s): 487132236 Plan: The patient's appearance, habitus, and history are consistent with the diagnosis of polycystic ovarian syndrome. The usual treatment for this would be to use a oral contraceptive pill. This is, however, contraindicated given her history of DVT with stroke and heart attack. She would be a candidate for progestational products potentially to include either a mini pill or a new progestational pill by the name of Slynd which is a cyclic progestational product in nature. She additionally would be a candidate for a progestational IUD. The use of blood thinners under the circumstances is somewhat productive to controlling vaginal bleeding but is clearly necessary. As she is not currently bleeding and declines any examination or ultrasound, I would recommend she follow up as an outpatient or replaced on one of the above products. I will otherwise sign off the case at this time.
[2020-09-29 17:51] LABS: Reticulocyte % 3.1 % (0.5-2.0)
--- NOTE | 2020-09-29 19:00 | P.HPIM ---
History of Present Illness H&P Date: 09/29/20 Radha Christensen, is a 35-year-old female with multiple medical problems [facility], patient was noticed to have a hemoglobin of 6.5, she was sent to emergency room for further evaluation and treatment Patient has a known history of anemia, she had a known history of irregular vaginal bleeding contributing to her anemia, patient also has a known history of DVT, CVA and myocardial infarction, she is maintained on Eliquis 5 mg by mouth [facility] a day [facility]. Patient was evaluated in the emergency room her vital exam revealed a temperature of 98.5 pulse 90 respirations 16 blood pressure 138/80 pulse ox 100% on room air laboratory data revealed a white blood count of 6.1 hemoglobin 6.6 platelet count 181 sodium 133 potassium 4.1 BUN 25 creatinine 2.04 glucose 229 patient was admitted to medical floor 1 unit of red blood cell transfusion was ordered. Eliquis was held consultation for hematology and gynecology were initiated. On review of systems patient is alert and oriented x 3 in no distress, she denies any complaints there is no fever or chills no headache or dizziness no chest pain no shortness of breath no palpitation no cough no nausea or vomiting no abdominal pain no diarrhea no blood in the stools no burning with urination no frequency or urgency and no hematuria, there is no weakness or numbness in any of the extremities no change in vision speech . Past Medical History Past Medical History: CVA/TIA, Deep Vein Thrombosis (DVT), Myocardial Infarction ([place]) Additional Past Medical History / Comment(s): morbid obesity, pancreatitis, history of coma - 10/24/14 - until end of december after suffering from a stroke. Last Myocardial Infarction Date:: 10/2014 History of Any Multi-Drug Resistant Organisms: ESBL, Other MDRO Date of last positivie culture/infection: 07/16/20 ESBL E.coli MDRO Source:: Urine-ESBL Past Surgical History: Cholecystectomy Additional Past Surgical History / Comment(s): Cystoscopy with placement of left double-J catheter 02/16/2018, Gastric bypass 2016 Past Anesthesia/Blood Transfusion Reactions: No Reported Reaction Past Psychological History: Anxiety, Depression, Panic Disorder Smoking Status: Never smoker Past Alcohol Use History: None Reported Past Drug Use History: Marijuana - Past Family History Father History Unknown: Yes Family Medical History: Cancer Additional Family Medical History / Comment(s): lung Medications and Allergies Home Medications Medication Instructions Recorded Confirmed Type Ergocalciferol (Vitamin D2) 50,000 unit PO QMONTHLY 02/15/18 09/29/20 History [Drisdol (50,000 Iu)] FLUoxetine HCL [PROzac] 20 mg PO DAILY@0800 02/15/18 09/29/20 History Levothyroxine Sodium [Synthroid] 25 mcg PO HS@199902/15/18 09/29/20 History Melatonin 5 mg PO HS@199902/15/18 09/29/20 History Multivitamins, Thera [Multivitamin 1 tab PO DAILY@0800 02/15/18 09/29/20 History (formulary)] Acetaminophen Tab [Tylenol] 650 mg PO Q6H PRN 09/03/18 09/29/20 History Baclofen 10 mg PO HS@199907/25/20 09/29/20 History Carvedilol [Coreg] 3.125 mg PO BID@0800,1600 07/25/20 09/29/20 History Insulin Aspart [NovoLOG] See Protocol SQ ACHS@07,11,16,20 07/25/20 09/29/20 History Insulin Glargine,Hum.rec.anlog 14 unit SQ HS@199907/25/20 09/29/20 History [Lantus Solostar] Sennosides/Docusate Sodium [Senna 2 tab PO HS@199907/25/20 09/29/20 History Plus 8.6-50 mg Softgel] amLODIPine [Norvasc] 5 mg PO DAILY@0800 07/25/20 09/29/20 History HYDROcodone/APAP 7.5-325MG [[place] 1 tab PO Q12HR PRN 3 Days #6 tab 07/29/20 09/29/20 Rx 7.5-325] traMADol HCl [Ultram] 50 mg PO TID@0500,1300,2100 3 Days 07/29/20 09/29/20 Rx #9 tab Apixaban [Eliquis] 5 mg PO BID@0800,1600 09/29/20 09/29/20 History Atorvastatin [Lipitor] 20 mg PO HS@199909/29/20 09/29/20 History Furosemide [Lasix] 20 mg PO DAILY@0800 09/29/20 09/29/20 History Sodium Bicarbonate Tab 650 mg PO BID@0800,1600 09/29/20 09/29/20 History clonazePAM [KlonoPIN] 0.5 mg PO HS@2000 09/29/20 09/29/20 History Allergies Allergy/AdvReac Type Severity Reaction Status Date / Time aspirin Allergy Rash/Hives Verified 09/29/20 07:34 sertraline HCl [From Zoloft] Allergy Unknown Verified 09/29/20 07:34 zolpidem tartrate Allergy Unknown Verified 09/29/20 07:34 [From Ambien] gabapentin [From Neurontin] AdvReac Severe SEVERE Verified 09/29/20 07:34 AGITATION ibuprofen [From Motrin] AdvReac AVOIDS D/T Verified 09/29/20 07:34 KIDNEY FUNCTION Physical Exam Vitals: Vital Signs Temp Pulse Resp BP Pulse Ox 09/29/20 09:41 98.3 F 91 16 108/93 99 09/29/20 09:11 98.5 F 90 16 138/80 100 09/29/20 09:01 98.2 F 87 16 151/82 99 09/29/20 07:42 98.2 F 82 16 143/84 100 09/29/20 06:27 88 18 135/82 100 09/29/20 05:29 98.2 F 92 18 136/72 90 L Intake and Output 09/28/20 09/29/20 09/29/20 22:59 06:59 14:59 Intake Total 0 Balance 0 Intake: Blood Product 0 Rc As-1 Unit 0 [id number] Other: Weight 128.82 kg In general patient is alert and oriented x 3 in no distress HEENT head normocephalic and atraumatic Neck is supple no JVD no goiter no lymphadenopathy no carotid bruit Chest examination is clear to auscultation no crackles no wheezing Cardiac exam reveals regular heart sounds S1 and S2 no gallops no murmurs Abdomen is soft nontender no organomegaly with normal bowel sounds Extremity exam reveals no edema no cyanosis or clubbing Neurological examination reveals no gross focal deficits Results CBC & Chem 7: 09/29/20 06:21 09/29/20 06:21 Labs: Abnormal Lab Results - Last 24 Hours (Table) 09/29/20 09/29/20 09/29/20 Range/Units 06:21 06:21 06:21 RBC 2.39 L (3.80-5.40) m/uL Hgb 6.6 L* D (11.4-16.0) gm/dL Hct 21.1 L (34.0-46.0) % RDW 16.6 H (11.5-15.5) % Sodium 133 L (137-145) mmol/L BUN 25 H (7-17) mg/dL Creatinine 2.04 H (0.52-1.04) mg/dL Glucose 229 H (74-99) mg/dL Calcium 7.9 L (8.4-10.2) mg/dL Total Bilirubin 0.1 L (0.2-1.3) mg/dL Total Protein 5.7 L (6.3-8.2) g/dL Albumin 2.9 L (3.5-5.0) g/dL Crossmatch See Detail Assessment and Plan Plan: Severe anemia at this time will give 1 unit of red blood cell transfusion Irregular vaginal bleeding gynecology consultation was requested Underlying history of of DVT Underlying history of CVA and myocardial infarction At this time patient is admitted to medical floor 1 unit of red blood cell was ordered Consultation for hematology to assess anemia and need for anticoagulation was requested Consultation for gynecology to assess irregular vaginal bleeding Will follow closely
[2020-09-29 20:42] LABS: Glucose,Whole Blood 265 mg/dL (75-99)
[2020-09-29] MEDS: BACLOFEN 10 MG TAB PO SCH (20:45)
[2020-09-29] MEDS: SENNOSIDES-DOCUSATE SODIUM 1 EACH TAB PO SCH (20:45)
[2020-09-29] MEDS: ATORVASTATIN 20 MG TAB PO SCH (20:45)
[2020-09-29] MEDS: LEVOTHYROXINE 25 MCG TAB PO SCH (20:45)
[2020-09-29] MEDS: clonazePAM 0.5 MG TAB PO SCH (20:45)
[2020-09-29] MEDS: MELATONIN 5 MG TABLET PO SCH (20:45)
[2020-09-29] MEDS: INSULIN DETEMIR (LEVEMIR) 100 UNIT/ML SYR SQ SCH (20:46)
[2020-09-30] MEDS: traMADol 50 MG TAB PO SCH ×3 (04:07→20:31)
[2020-09-30 07:58] LABS: Basophils % (A) 0 %; Eosinophils # (A) 0.2 k/uL (0-0.7); Eosinophils % (A) 3 %; HCT 26.3 % (34.0-46.0); Hypochromasia Marked; Lymphocytes # (A) 1.3 k/uL (1.0-4.8); Lymphocytes % (A) 22 %; MCH 28.2 pg (25.0-35.0); MCHC 31.5 g/dL (31.0-37.0); MCV 89.5 fL (80.0-100.0); Mean Platelet Volume 8.3; Monocytes # (A) 0.3 k/uL (0-1.0); Monocytes % (A) 5 %; Neutrophils % (A) 68 %; Platelet Count 197 k/uL (150-450); Poikilocytosis Marked; RBC 2.94 m/uL (3.80-5.40); RDW 15.7 % (11.5-15.5); WBC 5.9 k/uL (3.8-10.6)
[2020-09-30 08:06] LABS: HGB 8.3 gm/dL (11.4-16.0)
[2020-09-30 08:12] LABS: ALT 7 U/L (4-34); AST 13 U/L (14-36); African American GFR (CKD) 31 (>60 ml/min/1.73 sqM); Alkaline Phosphatase 69 U/L (38-126); Anion Gap 6 mmol/L; Blood Urea Nitrogen 30 mg/dL (7-17); Carbon Dioxide 26 mmol/L (22-30); Chloride 106 mmol/L (98-107); Glucose 211 mg/dL (74-99); Non-African American GFR(CKD) 27 (>60 ml/min/1.73 sqM); Potassium 4.3 mmol/L (3.5-5.1); Sodium 138 mmol/L (137-145); Total Bilirubin <0.1 mg/dL (0.2-1.3); Total Protein 5.7 g/dL (6.3-8.2)
[2020-09-30] MEDS: FLUoxetine HCL 20 MG CAP PO SCH (08:34)
[2020-09-30] MEDS: MULTIVITAMINS, THERA 1 EACH TAB PO SCH (08:34)
[2020-09-30] MEDS: ACETAMINOPHEN TAB 325 MG TAB PO PRN ×2 (08:34→17:40)
[2020-09-30] MEDS: amLODIPine 5 MG TAB PO SCH (08:34)
[2020-09-30] MEDS: FUROSEMIDE 20 MG TAB PO SCH (08:34)
[2020-09-30] MEDS: carvediloL 3.125 MG TAB PO SCH ×2 (08:34→17:40)
[2020-09-30] MEDS: SODIUM BICARBONATE TAB 650 MG TAB PO SCH ×2 (08:34→17:40)
--- NOTE | 2020-09-30 09:53 | P.PN ---
Subjective Progress Note Date: 09/30/20 Radha Christensen, is a 35-year-old female with multiple medical problems who currently resides [facility] the [facility], patient was noticed to have a hemoglobin of 6.5, she was sent to emergency room for further evaluation and treatment Patient has a known history of anemia, she had a known history of irregular v aginal bleeding contributing to her anemia, patient also has a known history of DVT, CVA and myocardial infarction, she is maintained on Eliquis 5 mg by mouth twice a day at the long term. Patient was evaluated in the emergency room her vital exam revealed a temperature of 98.5 pulse 90 respirations 16 blood pressure 138/80 pulse ox 100% on room air laboratory data revealed a white blood count of 6.1 hemoglobin 6.6 platelet count 181 sodium 133 potassium 4.1 BUN 25 creatinine 2.04 glucose 229 patient was admitted to medical floor 1 unit of red blood cell transfusion was ordered. Eliquis was held consultation for hematology and gynecology were initiated. On review of systems patient is alert and oriented x 3 in no distress, she denies any complaints there is no fever or chills no headache or dizziness no chest pain no shortness of breath no palpitation no cough no nausea or vomiting no abdominal pain no diarrhea no blood in the stools no burning with urination no frequency or urgency and no hematuria, there is no weakness or numbness in any of the extremities no change in vision speech . On 09/30/2020 patient's alert and oriented 3. Hemoglobin 8.3. No further episodes of bleeding. Patient denies any blood in stool. Patient was evaluated by FOOD VENDOR. Per FOOD VENDOR history consistent with diagnosis of polycystic ovarian syndrome and patient may be a candidate for progesterone only product to aid in menstrual cycles. Awaiting hematology input regards to eliquis. This time patient denies chest pain or shortness of breath. Patient denies any urinary burning or frequency. Patient denies any urinary burning or frequency Objective - Vital Signs Vital signs: Vital Signs Temp 98.2 F 09/30/20 08:29 Pulse 75 09/30/20 08:29 Resp 16 09/30/20 08:29 BP 131/85 09/30/20 08:29 Pulse Ox 100 09/30/20 08:29 Intake & Output 09/29/20 09/30/20 09/30/20 18:59 06:59 18:59 Intake Total 310 Output Total 200 2400 Balance 110 -2400 Weight 128.82 kg 127.5 kg Intake: Blood Product 310 Rc As-1 Unit 310 [id number] Output: Urine 200 2400 Uretheral (Rosado) 200 Other: Voiding Method Indwelling Catheter - Exam In general patient is alert and oriented x 3 in no distress HEENT head normocephalic and atraumatic Neck is supple no JVD no goiter no lymphadenopathy no carotid bruit Chest examination is clear to auscultation no crackles no wheezing Cardiac exam reveals regular heart sounds S1 and S2 no gallops no murmurs Abdomen is soft nontender no organomegaly with normal bowel sounds Extremity exam reveals no edema no cyanosis or clubbing Neurological examination reveals no gross focal deficits - Labs CBC & Chem 7: 09/30/20 07:39 09/30/20 07:39 Labs: Abnormal Lab Results - Last 24 Hours (Table) 09/29/20 09/29/20 09/29/20 Range/Units 06:21 06:21 20:39 RBC (3.80-5.40) m/uL Hgb (11.4-16.0) gm/dL Hct (34.0-46.0) % RDW (11.5-15.5) % ESR 91 H (0-20) mm/hr Retic Count 3.1 H (0.5-2.0) % BUN (7-17) mg/dL Creatinine (0.52-1.04) mg/dL Glucose (74-99) mg/dL POC Glucose (mg/dL) 265 H (75-99) mg/dL Calcium (8.4-10.2) mg/dL Total Bilirubin (0.2-1.3) mg/dL AST (14-36) U/L Total Protein (6.3-8.2) g/dL Albumin (3.5-5.0) g/dL Crossmatch See Detail 09/30/20 09/30/20 Range/Units 07:39 07:39 RBC 2.94 L (3.80-5.40) m/uL Hgb 8.3 L D (11.4-16.0) gm/dL Hct 26.3 L (34.0-46.0) % RDW 15.7 H (11.5-15.5) % ESR (0-20) mm/hr Retic Count (0.5-2.0) % BUN 30 H (7-17) mg/dL Creatinine 2.27 H (0.52-1.04) mg/dL Glucose 211 H (74-99) mg/dL POC Glucose (mg/dL) (75-99) mg/dL Calcium 8.0 L (8.4-10.2) mg/dL Total Bilirubin <0.1 L (0.2-1.3) mg/dL AST 13 L (14-36) U/L Total Protein 5.7 L (6.3-8.2) g/dL Albumin 3.0 L (3.5-5.0) g/dL Crossmatch Assessment and Plan Plan: Severe anemia at this time will give 1 unit of red blood cell transfusion Irregular vaginal bleeding gynecology consultation was requested. Per FOOD VENDOR history consistent with diagnosis of polycystic ovarian syndrome and patient may be a candidate for progesterone only product to aid in menstrual cycles. Underlying history of of DVT Underlying history of CVA and myocardial infarction History of diabetes mellitus type 2 History of hypothyroidism Essential hypertension History of anxiety History of hyperlipidemia At this time patient is admitted to medical floor 1 unit of red blood cell was ordered Consultation for hematology to assess anemia and need for anticoagulation was requested Consultation for gynecology to assess irregular vaginal bleeding Will follow closely
[2020-09-30] MEDS: HYDROcodone/APAP 7.5-325MG 1 EACH TAB PO PRN ×2 (10:33→22:34)
[2020-09-30 10:56] LABS: Protein, Total 5.6 g/dL (6.2-8.2)
--- NOTE | 2020-09-30 12:55 | US ---
EXAMINATION TYPE: US venous doppler duplex [place] DATE OF EXAM: 09/30/2020 12:33 PM COMPARISON: US 07/26/2020 CLINICAL HISTORY: clarification on chronic thrombus, last study poor. Pt states history of DVT SIDE PERFORMED: Bilateral TECHNIQUE: The lower extremity deep venous system is examined utilizing real time linear array sonog caleb with graded compression, doppler sonography and color-flow sonography. VESSELS IMAGED: Common Femoral Vein Deep Femoral Vein Greater Saphenous Vein * Femoral Vein Popliteal Vein Small Saphenous Vein * Proximal Calf Veins (* superficial vessels) Very limited exam similar to multiple prior ultrasounds, pt immobile, large body habitus, pt states h/o OR and stroke, veins small in caliber and pt unable to tolerate compressions Right Leg: Visualized portions appear negative for acute thrombus/ veins small in caliber making vis ualization of chronic thrombus difficult/ pt unable to tolerate compressions from mid fem vein to pop liteal veins/ only proximal popliteal vein visualized with color flow Left Leg: Visualized portions appear negative for acute thrombus/ veins small in caliber making visu alization of chronic thrombus difficult/ pt unable to tolerate compression distal fem vein/ pt immobi le, unable to move left leg to visualize popliteal veins IMPRESSION: 1. Markedly limited exam as discussed above. Visualized portions of the venous system demonstrate no diagnostic evidence of DVT. See above.
[2020-09-30 15:25] LABS: % Iron Saturation 5.56 (12.00-45.00); Ferritin 6.2 ng/mL (10.0-291.0)
[2020-09-30 16:46] LABS: Glucose,Whole Blood 325 mg/dL (75-99)
[2020-09-30 20:15] LABS: Glucose,Whole Blood 372 mg/dL (75-99)
[2020-09-30] MEDS: ATORVASTATIN 20 MG TAB PO SCH (20:31)
[2020-09-30] MEDS: MELATONIN 5 MG TABLET PO SCH (20:31)
[2020-09-30] MEDS: INSULIN ASPART (NovoLOG) 100 UNIT/ML VIAL SQ SCH (20:32)
[2020-09-30] MEDS: SENNOSIDES-DOCUSATE SODIUM 1 EACH TAB PO SCH (20:32)
[2020-09-30] MEDS: INSULIN DETEMIR (LEVEMIR) 100 UNIT/ML SYR SQ SCH (20:33)
[2020-09-30] MEDS: BACLOFEN 10 MG TAB PO SCH (20:33)
[2020-09-30] MEDS: LEVOTHYROXINE 25 MCG TAB PO SCH (20:33)
[2020-09-30] MEDS: clonazePAM 0.5 MG TAB PO SCH (20:33)
--- NOTE | 2020-09-30 20:41 | P.CONS ---
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 coli, she was started on IV ertapenem 1 g every 24. Worsening bilateral lower extremity swelling and doppler reveals extensive DVT, although appearing potentially chronic. She admits to having blood clots in 2016, poor historian and does not remember if she has been on blood thinners. She was recently hospitalized for possible dvt, study of venous doppler was suboptimal due to patient tolerance and unable to truly see if thrombus present. CLinically given her whole history and presentation (edema, pain, ?hx dvts) it was felt to continue treatment with anticoagulation, however she now presents with symptomatic anemia. At this time eliquis should be held, TRACK MECHANIC and GI evaluation, repeat venous doppler for attempt of improved study Review of Systems All systems: negative Constitutional: Reports as per HPI Past Medical History Past Medical History: CVA/TIA, Deep Vein Thrombosis (DVT), Myocardial Infarction ([place]) Additional Past Medical History / Comment(s): morbid obesity, pancreatitis, history of coma - 10/24/14 - until end of december after suffering from a stroke. Last Myocardial Infarction Date:: 10/2014 History of Any Multi-Drug Resistant Organisms: ESBL, Other MDRO Year Discovered:: 07/16/20 ESBL E.coli MDRO Source:: Urine-ESBL Past Surgical History: Cholecystectomy Additional Past Surgical History / Comment(s): Cystoscopy with placement of left double-J catheter 02/16/2018, Gastric bypass 2016 Past Anesthesia/Blood Transfusion Reactions: No Reported Reaction Past Psychological History: Anxiety, Depression, Panic Disorder Smoking Status: Never smoker Past Alcohol Use History: None Reported Past Drug Use History: Marijuana - Past Family History Father History Unknown: Yes Family Medical History: Cancer Additional Family Medical History / Comment(s): lung Medications and Allergies Home Medications Medication Instructions Recorded Confirmed Type Ergocalciferol (Vitamin D2) 50,000 unit PO QMONTHLY 02/15/18 09/29/20 History [Drisdol (50,000 Iu)] FLUoxetine HCL [PROzac] 20 mg PO DAILY@0800 02/15/18 09/29/20 History Levothyroxine Sodium [Synthroid] 25 mcg PO HS@199902/15/18 09/29/20 History Melatonin 5 mg PO HS@199902/15/18 09/29/20 History Multivitamins, Thera [Multivitamin 1 tab PO DAILY@0800 02/15/18 09/29/20 History (formulary)] Acetaminophen Tab [Tylenol] 650 mg PO Q6H PRN 09/03/18 09/29/20 History Baclofen 10 mg PO HS@199907/25/20 09/29/20 History Carvedilol [Coreg] 3.125 mg PO BID@0800,1600 07/25/20 09/29/20 History Insulin Aspart [NovoLOG] See Protocol SQ ACHS@07,11,16,20 07/25/20 09/29/20 History Insulin Glargine,Hum.rec.anlog 14 unit SQ HS@199907/25/20 09/29/20 History [Lantus Solostar Pen] Sennosides/Docusate Sodium [Senna 2 tab PO HS@199907/25/20 09/29/20 History Plus 8.6-50 mg Softgel] amLODIPine [Norvasc] 5 mg PO DAILY@0800 07/25/20 09/29/20 History HYDROcodone/APAP 7.5-325MG [[place] 1 tab PO Q12HR PRN 3 Days #6 tab 07/29/20 09/29/20 Rx 7.5-325] traMADol HCl [Ultram] 50 mg PO TID@0500,1300,2100 3 Days 07/29/20 09/29/20 Rx #9 tab Apixaban [Eliquis] 5 mg PO BID@0800,1600 09/29/20 09/29/20 History Atorvastatin [Lipitor] 20 mg PO HS@199909/29/20 09/29/20 History Furosemide [Lasix] 20 mg PO DAILY@0800 09/29/20 09/29/20 History Sodium Bicarbonate Tab 650 mg PO BID@0800,1600 09/29/20 09/29/20 History clonazePAM [KlonoPIN] 0.5 mg PO HS@199909/29/20 09/29/20 History Allergies Allergy/AdvReac Type Severity Reaction Status Date / Time aspirin Allergy Rash/Hives Verified 09/29/20 07:34 sertraline HCl [From Zoloft] Allergy Unknown Verified 09/29/20 07:34 zolpidem tartrate Allergy Unknown Verified 09/29/20 07:34 [From Ambien] gabapentin [From Neurontin] AdvReac Severe SEVERE Verified 09/29/20 07:34 AGITATION ibuprofen [From Motrin] AdvReac AVOIDS D/T Verified 09/29/20 07:34 KIDNEY FUNCTION Physical Exam Vitals: Vital Signs Temp Pulse Resp BP Pulse Ox 09/29/20 15:16 79 22 124/79 99 09/29/20 14:26 87 18 120/75 99 09/29/20 11:43 98.3 F 79 16 128/76 100 09/29/20 09:41 98.3 F 91 16 108/93 99 09/29/20 09:11 98.5 F 90 16 138/80 100 09/29/20 09:01 98.2 F 87 16 151/82 99 09/29/20 07:42 98.2 F 82 16 143/84 100 09/29/20 06:27 88 18 135/82 100 09/29/20 05:29 98.2 F 92 18 136/72 90 L Intake and Output 09/29/20 09/29/20 09/29/20 06:59 14:59 22:59 Intake Total 310 Output Total 200 Balance 310 -200 Intake: Blood Product 310 Rc As-1 Unit 310 [id number] Output: Urine 200 Uretheral ([place]) 200 Other: Weight 128.82 kg Constitutional General appearance: cooperative, morbidly obese - EENT Eyes: Reports anicteric sclerae, Reports normal apperance ENT: Reports normal oropharynx - Neck Neck: Denies lymphadenopathy - Respiratory Respiratory: bilateral: CTA - Cardiovascular Rhythm: regular Heart sounds: normal: S1, S2 leg Peripheral Edema: bilateral: 2+, Pitting - Gastrointestinal obese, large pannus, VERY tender to any palpation, unable to appreciate any masses General gastrointestinal: Reports distended, Reports normal bowel sounds, Reports soft - Integumentary Integumentary: Reports pale - Neurologic Neurologic: CNII-XII intact - Musculoskeletal Musculoskeletal: Reports generalized weakness Results CBC & Chem 7: 09/30/20 07:39 09/30/20 07:39 Labs: Abnormal Lab Results - Last 24 Hours (Table) 09/29/20 09/29/20 09/29/20 Range/Units 06:21 06:21 06:21 RBC 2.39 L (3.80-5.40) m/uL Hgb 6.6 L* D (11.4-16.0) gm/dL Hct 21.1 L (34.0-46.0) % RDW 16.6 H (11.5-15.5) % Sodium 133 L (137-145) mmol/L BUN 25 H (7-17) mg/dL Creatinine 2.04 H (0.52-1.04) mg/dL Glucose 229 H (74-99) mg/dL Calcium 7.9 L (8.4-10.2) mg/dL Total Bilirubin 0.1 L (0.2-1.3) mg/dL Total Protein 5.7 L (6.3-8.2) g/dL Albumin 2.9 L (3.5-5.0) g/dL Crossmatch See Detail Venous US: report reviewed Assessment and Plan Plan: Assessment and Plan (1) UTI (urinary tract infection) Current Visit: Yes Status: Acute Code(s): N39.0 - URINARY TRACT INFECTION, SITE NOT SPECIFIED SNOMED Code(s): 53698522 (2) Chronic deep vein thrombosis of lower extremity in which she was treated with Eliquis at last visit in July Current Visit: No Status: Acute Code(s): I82.509 - CHRONIC EMBOLISM AND THOMBOS UNSP DEEP VN UNSP LOW EXTRM SNOMED Code(s): 124313413732418 (3) Chronic renal insufficiency Current Visit: No Status: Acute Code(s): N18.9 - CHRONIC KIDNEY DISEASE, UNSPECIFIED SNOMED Code(s): 736345168 Plan: - She has not followed up in office to monitor cbc or repeat venous doppler therefore will repeat while inpatient, given last study could not confirm chronic or presence of DVT, she was treated based on clinical presentation, sedetary lifestyle and probable chronic dvt in [place]. However now with acute blood loss anemia, will need to re-evaluate. - Await TRACK MECHANIC and GI evaluations - Await work-up for anemia, additional labs due to CKD (unknown stage) - Hold ELiquis - Transfuse less than 7 physician Attest: I have completed the full history and physical and developed the above impression and plan, agree with dictation, dictated as a scribe
[2020-10-01] MEDS: traMADol 50 MG TAB PO SCH ×3 (04:49→20:46)
[2020-10-01 06:19] LABS: Glucose,Whole Blood 208 mg/dL (75-99)
[2020-10-01] MEDS: INSULIN ASPART (NovoLOG) 100 UNIT/ML VIAL SQ SCH ×4 (06:33→20:47)
[2020-10-01] MEDS: amLODIPine 5 MG TAB PO SCH (09:19)
[2020-10-01] MEDS: carvediloL 3.125 MG TAB PO SCH ×2 (09:19→17:18)
[2020-10-01] MEDS: MULTIVITAMINS, THERA 1 EACH TAB PO SCH (09:19)
[2020-10-01] MEDS: FUROSEMIDE 20 MG TAB PO SCH (09:19)
[2020-10-01] MEDS: SODIUM BICARBONATE TAB 650 MG TAB PO SCH ×2 (09:19→17:18)
[2020-10-01] MEDS: FLUoxetine HCL 20 MG CAP PO SCH (09:20)
[2020-10-01 11:39] LABS: Glucose,Whole Blood 351 mg/dL (75-99)
[2020-10-01 11:54] LABS: Anisocytosis Slight; Basophils % (A) 0 %; Eosinophils # (A) 0.2 k/uL (0-0.7); Eosinophils % (A) 3 %; HCT 25.8 % (34.0-46.0); HGB 8.1 gm/dL (11.4-16.0); Hypochromasia Marked; Lymphocytes # (A) 1.1 k/uL (1.0-4.8); Lymphocytes % (A) 19 %; MCH 28.5 pg (25.0-35.0); MCHC 31.6 g/dL (31.0-37.0); MCV 90.4 fL (80.0-100.0); Mean Platelet Volume 8.1; Monocytes # (A) 0.3 k/uL (0-1.0); Monocytes % (A) 5 %; Neutrophils # (A) 4.2 k/uL (1.3-7.7); Neutrophils % (A) 71 %; Platelet Count 205 k/uL (150-450); Poikilocytosis Marked; RBC 2.85 m/uL (3.80-5.40); RDW 16.1 % (11.5-15.5); WBC 5.9 k/uL (3.8-10.6)
[2020-10-01 12:05] LABS: ALT 6 U/L (4-34); AST 14 U/L (14-36); African American GFR (CKD) 31 (>60 ml/min/1.73 sqM); Albumin 2.8 g/dL (3.5-5.0); Alkaline Phosphatase 65 U/L (38-126); Anion Gap 6 mmol/L; Blood Urea Nitrogen 35 mg/dL (7-17); Calcium 7.8 mg/dL (8.4-10.2); Carbon Dioxide 23 mmol/L (22-30); Chloride 106 mmol/L (98-107); Glucose 348 mg/dL (74-99); Non-African American GFR(CKD) 27 (>60 ml/min/1.73 sqM); Potassium 4.6 mmol/L (3.5-5.1); Sodium 135 mmol/L (137-145); Total Bilirubin <0.1 mg/dL (0.2-1.3); Total Protein 5.4 g/dL (6.3-8.2)
[2020-10-01] MEDS: HYDROcodone/APAP 7.5-325MG 1 EACH TAB PO PRN (15:20)
[2020-10-01 16:34] LABS: Glucose,Whole Blood 205 mg/dL (75-99)
--- NOTE | 2020-10-01 16:54 | P.PN ---
Subjective Progress Note Date: 10/01/20 Radha Christensen, is a 35-year-old female with multiple medical problems who currently resides at the [facility], patient was noticed to have a hemoglobin of 6.5, she was sent to emergency room for further evaluation and treatment Patient has a known history of anemia, she had a known history of irregular v aginal bleeding contributing to her anemia, patient also has a known history of DVT, CVA and myocardial infarction, she is maintained on Eliquis 5 mg by mouth twice a day at the [facility]. Patient was evaluated in the emergency room her vital exam revealed a temperature of 98.5 pulse 90 respirations 16 blood pressure 138/80 pulse ox 100% on room air laboratory data revealed a white blood count of 6.1 hemoglobin 6.6 platelet count 181 sodium 133 potassium 4.1 BUN 25 creatinine 2.04 glucose 229 patient was admitted to medical floor 1 unit of red blood cell transfusion was ordered. Eliquis was held consultation for hematology and gynecology were initiated. On review of systems patient is alert and oriented x 3 in no distress, she denies any complaints there is no fever or chills no headache or dizziness no chest pain no shortness of breath no palpitation no cough no nausea or vomiting no abdominal pain no diarrhea no blood in the stools no burning with urination no frequency or urgency and no hematuria, there is no weakness or numbness in any of the extremities no change in vision speech . On 09/30/2020 patient's alert and oriented 3. Hemoglobin 8.3. No further episodes of bleeding. Patient denies any blood in stool. Patient was evaluated by [facility] SALVAGER. Per [facility]VAG[facility] history consistent with diagnosis of polycystic ovarian syndrome and patient may be a candidate for progesterone only product to aid in menstrual cycles. Awaiting hematology input regards to eliquis. This time patient denies chest pain or shortness of breath. Patient denies any urinary burning or frequency. Patient denies any urinary burning or frequency On 10/01/2020 Patient was seen and examined on the medical floor, he is alert and oriented x 3 in no distress, he denies any complaints there is no fever or chills no headache or dizziness no chest pain no shortness of breath no palpitation no cough no nausea or vomiting no abdominal pain no diarrhea no blood in the stools no burning with urination no frequency or urgency and no hematuria, there is no weakness or numbness in any of the extremities no change in vision speech or gait. At this time we are still awaiting further recommendation from hematology in regard to anemia, also we are waiting for recommendation in regard to anticoagulation. Objective - Vital Signs Vital signs: Vital Signs Temp 98.0 F 10/01/20 09:18 Pulse 88 10/01/20 09:18 Resp 16 10/01/20 09:18 BP 117/78 10/01/20 09:18 Pulse Ox 100 10/01/20 09:18 Intake & Output 09/30/20 10/01/20 10/01/20 18:59 06:59 18:59 Intake Total 480 480 Output Total 750 1050 Balance -270 -1050 480 Weight 129 kg Intake: Oral 480 480 Output: Urine 750 1050 Other: Voiding Method External Catheter # Voids 1 - Exam In general patient is alert and oriented x 3 in no distress HEENT head normocephalic and atraumatic Neck is supple no JVD no goiter no lymphadenopathy no carotid bruit Chest examination is clear to auscultation no crackles no wheezing Cardiac exam reveals regular heart sounds S1 and S2 no gallops no murmurs Abdomen is soft nontender no organomegaly with normal bowel sounds Extremity exam reveals no edema no cyanosis or clubbing Neurological examination reveals no gross focal deficits - Labs CBC & Chem 7: 10/01/20 10:46 10/01/20 10:46 Labs: Abnormal Lab Results - Last 24 Hours (Table) 09/29/20 09/30/20 09/30/20 Range/Units 06:21 16:44 20:13 POC Glucose (mg/dL) 325 H 372 H (75-99) mg/dL Iron 17 L (50-170) ug/dL % Saturation 5.56 L (12.00-45.00) Ferritin 6.2 L (10.0-291.0) ng/mL 10/01/20 Range/Units 06:18 POC Glucose (mg/dL) 208 H (75-99) mg/dL Iron (50-170) ug/dL % Saturation (12.00-45.00) Ferritin (10.0-291.0) ng/mL Assessment and Plan Plan: Severe anemia at this time will give 1 unit of red blood cell transfusion Irregular vaginal bleeding gynecology consultation was requested. Per Y[facility] SALVAGER history consistent with diagnosis of polycystic ovarian syndrome and patient may be a candidate for progesterone only product to aid in menstrual cycles. Underlying history of of DVT Underlying history of CVA and myocardial infarction History of diabetes mellitus type 2 History of hypothyroidism Essential hypertension History of anxiety History of hyperlipidemia At this time patient is admitted to medical floor 1 unit of red blood cell was ordered Consultation for hematology to assess anemia and need for anticoagulation was requested Consultation for gynecology to assess irregular vaginal bleeding Will follow closely
[2020-10-01 20:21] LABS: Glucose,Whole Blood 275 mg/dL (75-99)
[2020-10-01] MEDS: SENNOSIDES-DOCUSATE SODIUM 1 EACH TAB PO SCH (20:42)
[2020-10-01] MEDS: MELATONIN 5 MG TABLET PO SCH (20:46)
[2020-10-01] MEDS: ATORVASTATIN 20 MG TAB PO SCH (20:46)
[2020-10-01] MEDS: BACLOFEN 10 MG TAB PO SCH (20:46)
[2020-10-01] MEDS: clonazePAM 0.5 MG TAB PO SCH (20:46)
[2020-10-01] MEDS: LEVOTHYROXINE 25 MCG TAB PO SCH (20:46)
[2020-10-01] MEDS: INSULIN DETEMIR (LEVEMIR) 100 UNIT/ML SYR SQ SCH (20:47)
[2020-10-02] MEDS: HYDROcodone/APAP 7.5-325MG 1 EACH TAB PO PRN ×2 (03:15→15:54)
[2020-10-02 06:10] LABS: Glucose,Whole Blood 244 mg/dL (75-99)
[2020-10-02] MEDS: INSULIN ASPART (NovoLOG) 100 UNIT/ML VIAL SQ SCH ×4 (06:15→22:16)
[2020-10-02] MEDS: traMADol 50 MG TAB PO SCH ×3 (06:15→21:28)
[2020-10-02] MEDS: carvediloL 3.125 MG TAB PO SCH ×2 (09:29→16:54)
[2020-10-02] MEDS: MULTIVITAMINS, THERA 1 EACH TAB PO SCH (09:29)
[2020-10-02] MEDS: amLODIPine 5 MG TAB PO SCH (09:29)
[2020-10-02] MEDS: FUROSEMIDE 20 MG TAB PO SCH (09:29)
[2020-10-02] MEDS: FLUoxetine HCL 20 MG CAP PO SCH (09:29)
[2020-10-02] MEDS: SODIUM BICARBONATE TAB 650 MG TAB PO SCH ×2 (09:29→16:54)
[2020-10-02 10:16] LABS: Basophils % (A) 0 %; Eosinophils # (A) 0.2 k/uL (0-0.7); Eosinophils % (A) 3 %; HCT 29.4 % (34.0-46.0); Hypochromasia Marked; Lymphocytes # (A) 1.3 k/uL (1.0-4.8); Lymphocytes % (A) 21 %; MCH 27.9 pg (25.0-35.0); MCHC 30.7 g/dL (31.0-37.0); MCV 90.9 fL (80.0-100.0); Mean Platelet Volume 8.4; Monocytes # (A) 0.4 k/uL (0-1.0); Monocytes % (A) 6 %; Neutrophils # (A) 4.3 k/uL (1.3-7.7); Neutrophils % (A) 68 %; Platelet Count 223 k/uL (150-450); Poikilocytosis Moderate; RBC 3.24 m/uL (3.80-5.40); RDW 15.9 % (11.5-15.5); WBC 6.3 k/uL (3.8-10.6)
--- NOTE | 2020-10-02 10:18 | P.PN ---
Subjective Progress Note Date: 10/02/20 Radha Christensen, is a 35-year-old female with multiple medical problems who currently resides at the [facility], patient was noticed to have a hemoglobin of 6.5, she was sent to emergency room for further evaluation and treatment Patient has a known history of anemia, she had a known history of irregular v aginal bleeding contributing to her anemia, patient also has a known history of DVT, CVA and myocardial infarction, she is maintained on Eliquis 5 mg by mouth twice a day at the [facility]. Patient was evaluated in the emergency room her vital exam revealed a temperature of 98.5 pulse 90 respirations 16 blood pressure 138/80 pulse ox 100% on room air laboratory data revealed a white blood count of 6.1 hemoglobin 6.6 platelet count 181 sodium 133 potassium 4.1 BUN 25 creatinine 2.04 glucose 229 patient was admitted to medical floor 1 unit of red blood cell transfusion was ordered. Eliquis was held consultation for hematology and gynecology were initiated. On review of systems patient is alert and oriented x 3 in no distress, she denies any complaints there is no fever or chills no headache or dizziness no chest pain no shortness of breath no palpitation no cough no nausea or vomiting no abdominal pain no diarrhea no blood in the stools no burning with urination no frequency or urgency and no hematuria, there is no weakness or numbness in any of the extremities no change in vision speech . On 09/30/2020 patient's alert and oriented 3. Hemoglobin 8.3. No further episodes of bleeding. Patient denies any blood in stool. Patient was evaluated by BOBBIN HAULER. Per BOBBIN HAULER history consistent with diagnosis of polycystic ovarian syndrome and patient may be a candidate for progesterone only product to aid in menstrual cycles. Awaiting hematology input regards to eliquis. This time patient denies chest pain or shortness of breath. Patient denies any urinary burning or frequency. Patient denies any urinary burning or frequency On 10/01/2020 Patient was seen and examined on the medical floor, he is alert and oriented x 3 in no distress, he denies any complaints there is no fever or chills no headache or dizziness no chest pain no shortness of breath no palpitation no cough no nausea or vomiting no abdominal pain no diarrhea no blood in the stools no burning with urination no frequency or urgency and no hematuria, there is no weakness or numbness in any of the extremities no change in vision speech or gait. At this time we are still awaiting further recommendation from hematology in regard to anemia, also we are waiting for recommendation in regard to anticoagulation. On 10/02/2020 patient's alert and oriented 3. Hemoglobin 9.0. Repeat venous Doppler completed per hematology ordered uric awaiting hematology recommendation in regards to anticoagulation. At this time patient denies chest pain or shortness of breath. Patient denies nausea vomiting or diarrhea. Patient denies any urinary burning or frequency Objective - Vital Signs Vital signs: Vital Signs Temp 98.0 F 10/02/20 08:58 Pulse 93 10/02/20 08:58 Resp 16 10/02/20 08:58 BP 118/77 10/02/20 08:58 Pulse Ox 98 10/02/20 08:58 Intake & Output 10/01/20 10/02/20 10/02/20 18:59 06:59 18:59 Intake Total 1080 120 Output Total 2100 900 Balance -1020 -900 120 Weight 129.5 kg Intake: Oral 1080 120 Output: Urine 2100 900 Other: Voiding Method External Catheter - Exam In general patient is alert and oriented x 3 in no distress HEENT head normocephalic and atraumatic Neck is supple no JVD no goiter no lymphadenopathy no carotid bruit Chest examination is clear to auscultation no crackles no wheezing Cardiac exam reveals regular heart sounds S1 and S2 no gallops no murmurs Abdomen is soft nontender no organomegaly with normal bowel sounds Extremity exam reveals no edema no cyanosis or clubbing Neurological examination reveals no gross focal deficits - Labs CBC & Chem 7: 10/02/20 09:24 10/01/20 10:46 Labs: Abnormal Lab Results - Last 24 Hours (Table) 10/01/20 10/01/20 10/01/20 Range/Units 10:46 10:46 11:37 RBC 2.85 L (3.80-5.40) m/uL Hgb 8.1 L (11.4-16.0) gm/dL Hct 25.8 L (34.0-46.0) % MCHC (31.0-37.0) g/dL RDW 16.1 H (11.5-15.5) % Sodium 135 L (137-145) mmol/L BUN 35 H (7-17) mg/dL Creatinine 2.30 H (0.52-1.04) mg/dL Glucose 348 H (74-99) mg/dL POC Glucose (mg/dL) 351 H (75-99) mg/dL Calcium 7.8 L (8.4-10.2) mg/dL Total Bilirubin <0.1 L (0.2-1.3) mg/dL Total Protein 5.4 L (6.3-8.2) g/dL Albumin 2.8 L (3.5-5.0) g/dL 10/01/20 10/01/20 10/02/20 Range/Units 16:33 20:19 06:00 RBC (3.80-5.40) m/uL Hgb (11.4-16.0) gm/dL Hct (34.0-46.0) % MCHC (31.0-37.0) g/dL RDW (11.5-15.5) % Sodium (137-145) mmol/L BUN (7-17) mg/dL Creatinine (0.52-1.04) mg/dL Glucose (74-99) mg/dL POC Glucose (mg/dL) 205 H 275 H 244 H (75-99) mg/dL Calcium (8.4-10.2) mg/dL Total Bilirubin (0.2-1.3) mg/dL Total Protein (6.3-8.2) g/dL Albumin (3.5-5.0) g/dL 10/02/20 Range/Units 09:24 RBC 3.24 L (3.80-5.40) m/uL Hgb 9.0 L (11.4-16.0) gm/dL Hct 29.4 L (34.0-46.0) % MCHC 30.7 L (31.0-37.0) g/dL RDW 15.9 H (11.5-15.5) % Sodium (137-145) mmol/L BUN (7-17) mg/dL Creatinine (0.52-1.04) mg/dL Glucose (74-99) mg/dL POC Glucose (mg/dL) (75-99) mg/dL Calcium (8.4-10.2) mg/dL Total Bilirubin (0.2-1.3) mg/dL Total Protein (6.3-8.2) g/dL Albumin (3.5-5.0) g/dL Assessment and Plan Plan: Severe anemia at this time will give 1 unit of red blood cell transfusion Irregular vaginal bleeding gynecology consultation was requested. Per BOBBIN HAULER history consistent with diagnosis of polycystic ovarian syndrome and patient may be a candidate for progesterone only product to aid in menstrual cycles. Underlying history of of DVT Underlying history of CVA and myocardial infarction History of diabetes mellitus type 2 History of hypothyroidism Essential hypertension History of anxiety History of hyperlipidemia At this time patient is admitted to medical floor 1 unit of red blood cell was ordered Consultation for hematology to assess anemia and need for anticoagulation was requested Consultation for gynecology to assess irregular vaginal bleeding Will follow closely
[2020-10-02 10:38] LABS: Albumin 3.3 g/dL (3.5-5.0); Calcium 8.3 mg/dL (8.4-10.2); Potassium 4.3 mmol/L (3.5-5.1); Total Bilirubin 0.1 mg/dL (0.2-1.3); Total Protein 6.2 g/dL (6.3-8.2)
[2020-10-02 11:51] LABS: Glucose,Whole Blood 186 mg/dL (75-99)
[2020-10-02 12:58] LABS: Free Kappa Lt Chain Qnt, Serum 7.24 mg/dL (0.33-1.94)
--- NOTE | 2020-10-02 13:52 | P.PN ---
Subjective Progress Note Date: 10/02/20 She states that her vaginal bleeding present at the time of admission had stopped. However she appears to have started her regular menstrual cycle today. She denies any change in bowel habits. No obvious blood in the stool or urine. Generalized weakness persists. Objective - Vital Signs Vital signs: Vital Signs Temp 98.0 F 10/02/20 08:58 Pulse 80 10/02/20 12:02 Resp 16 10/02/20 12:02 BP 126/78 10/02/20 12:02 Pulse Ox 100 10/02/20 12:02 Intake & Output 10/01/20 10/02/20 10/02/20 18:59 06:59 18:59 Intake Total 1080 240 Output Total 2100 900 1200 Balance -1020 900 -960 Weight 129.5 kg Intake: Oral 1080 240 Output: Urine 2100 900 1200 Other: Voiding Method External Catheter - Constitutional General appearance: Present: no acute distress - EENT Eyes: Present: EOMI ENT: Present: hearing grossly normal, normal oropharynx - Respiratory Respiratory: bilateral: CTA - Cardiovascular Rhythm: regular Heart sounds: normal: S1, S2 - Gastrointestinal General gastrointestinal: Present: soft - Integumentary Integumentary: Present: normal - Neurologic Neurologic: Present: CNII-XII intact - Musculoskeletal Musculoskeletal: Present: generalized weakness - Psychiatric Psychiatric: Present: A&O x's 3 - Labs CBC & Chem 7: 10/02/20 09:24 10/02/20 09:24 Labs: Abnormal Lab Results - Last 24 Hours (Table) 09/30/20 10/01/20 10/01/20 Range/Units 07:39 16:33 20:19 RBC (3.80-5.40) m/uL Hgb (11.4-16.0) gm/dL Hct (34.0-46.0) % MCHC (31.0-37.0) g/dL RDW (11.5-15.5) % BUN (7-17) mg/dL Creatinine (0.52-1.04) mg/dL Glucose (74-99) mg/dL POC Glucose (mg/dL) 205 H 275 H (75-99) mg/dL Calcium (8.4-10.2) mg/dL Total Bilirubin (0.2-1.3) mg/dL Total Protein (6.3-8.2) g/dL Albumin (3.5-5.0) g/dL [place] LC, Quant 7.24 H (0.33-1.94) mg/dL Free [place] LC, Quant 4.01 H (0.57-2.63) mg/dL 10/02/20 10/02/20 10/02/20 Range/Units 06:00 09:24 09:24 RBC 3.24 L (3.80-5.40) m/uL Hgb 9.0 L (11.4-16.0) gm/dL Hct 29.4 L (34.0-46.0) % MCHC 30.7 L (31.0-37.0) g/dL RDW 15.9 H (11.5-15.5) % BUN 38 H (7-17) mg/dL Creatinine 2.41 H (0.52-1.04) mg/dL Glucose 218 H (74-99) mg/dL POC Glucose (mg/dL) 244 H (75-99) mg/dL Calcium 8.3 L (8.4-10.2) mg/dL Total Bilirubin 0.1 L (0.2-1.3) mg/dL Total Protein 6.2 L (6.3-8.2) g/dL Albumin 3.3 L (3.5-5.0) g/dL [place] LC, Quant (0.33-1.94) mg/dL Free [place] LC, Quant (0.57-2.63) mg/dL 10/02/20 Range/Units 11:49 RBC (3.80-5.40) m/uL Hgb (11.4-16.0) gm/dL Hct (34.0-46.0) % MCHC (31.0-37.0) g/dL RDW (11.5-15.5) % BUN (7-17) mg/dL Creatinine (0.52-1.04) mg/dL Glucose (74-99) mg/dL POC Glucose (mg/dL) 186 H (75-99) mg/dL Calcium (8.4-10.2) mg/dL Total Bilirubin (0.2-1.3) mg/dL Total Protein (6.3-8.2) g/dL Albumin (3.5-5.0) g/dL [place] LC, Quant (0.33-1.94) mg/dL Free [place] LC, Quant (0.57-2.63) mg/dL Assessment and Plan (1) Anemia Narrative/Plan: The patient has iron deficiency anemia due to blood loss. Hemoglobin remains stable at 9. - At this time the main source of her anemia appears to be most likely dysfunctional uterine bleeding. This is likely exacerbated by the use of an ticoagulation. The patient has been seen by gynecology, and has been recommended hormonal manipulation to try to control her uterine blood loss. However hormonal manipulation even with progestin only formulations still increase her risk of recurrent thrombosis. This is especially given her other ongoing risk factors including markedly decreased mobility and obesity. - At this time hemoglobin is in a safe range. Continue to monitor especially in view of her starting a new menstrual cycle, and transfuse to keep better than 7 - Ongoing monitoring and aggressive iron supplementation as needed - The case was discussed in detail with the admitting service. It was decided to seed with surgical consult for GI workup to rule out any other source of iron deficiency. Giving that is negative, in my opinion the best approach would be to start her on hormonal manipulation, and anticoagulation simultaneously, so that there would counteract each other's possible adverse effects, and lead to good control of the patient's uterine blood loss as well as ensure decrease risk of recurrent thrombosis. 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 These prior events could not be confirmed definitely as they occurred at different outside hospitals, and records are not available. During her recent prior admission Dopplers appeared to show chronic thrombosis in her lower extremities. Anticoagulation had to be placed on hold this admission because of her severe anemia. Repeat Dopplers this admission did not definitely show any thrombosis but are not reliable as they were severely limited because of the patient's body habitus and inability to ensure adequate compression. - In any case, assuming that the patient has had thrombosis in the past, she remains at high risk for recurrence because of her obesity, immobility and need for hormonal manipulation to control her uterine blood losses. Obviously resumption of anticoagulation on its own would place her at high risk for developing recurrent severe anemia. Thus the plan as noted above to utilize hormonal manipulation with the lowest possible risk of thrombosis, in conjunction with anticoagulation. - Risk versus benefit discussed in detail with the patient. - Plan discussed in detail with the admitting service Current Visit: Yes Status: Acute Code(s): Z86.718 - PERSONAL HISTORY OF OTHER VENOUS THROMBOSIS AND EMBOLISM SNOMED Code(s): 905836349
[2020-10-02] MEDS: SODIUM FERRIC GLUCONAT-SUCROSE 125 MG in SODIUM CHLORIDE 0.9% 100 ML IVPB SCH (15:54)
[2020-10-02 16:17] LABS: Glucose,Whole Blood 257 mg/dL (75-99)
[2020-10-02 20:21] LABS: Glucose,Whole Blood 272 mg/dL (75-99)
[2020-10-02] MEDS: ATORVASTATIN 20 MG TAB PO SCH (21:28)
[2020-10-02] MEDS: BACLOFEN 10 MG TAB PO SCH (21:28)
[2020-10-02] MEDS: LEVOTHYROXINE 25 MCG TAB PO SCH (21:28)
[2020-10-02] MEDS: MELATONIN 5 MG TABLET PO SCH (21:28)
[2020-10-02] MEDS: clonazePAM 0.5 MG TAB PO SCH (21:29)
[2020-10-02] MEDS: SENNOSIDES-DOCUSATE SODIUM 1 EACH TAB PO SCH (21:29)
[2020-10-02 21:58] LABS: Glucose,Whole Blood 316 mg/dL (75-99)
[2020-10-02] MEDS: INSULIN DETEMIR (LEVEMIR) 100 UNIT/ML SYR SQ SCH (22:17)
[2020-10-03] MEDS: HYDROcodone/APAP 7.5-325MG 1 EACH TAB PO PRN ×2 (03:42→16:35)
[2020-10-03] MEDS: traMADol 50 MG TAB PO SCH ×3 (05:12→21:06)
[2020-10-03 06:29] LABS: Anisocytosis Slight; Basophils % (A) 0 %; Eosinophils # (A) 0.2 k/uL (0-0.7); Eosinophils % (A) 3 %; HCT 27.1 % (34.0-46.0); HGB 8.6 gm/dL (11.4-16.0); Hypochromasia Marked; Lymphocytes # (A) 1.3 k/uL (1.0-4.8); Lymphocytes % (A) 21 %; MCH 28.2 pg (25.0-35.0); MCHC 31.6 g/dL (31.0-37.0); MCV 89.3 fL (80.0-100.0); Mean Platelet Volume 8.4; Monocytes # (A) 0.3 k/uL (0-1.0); Monocytes % (A) 5 %; Neutrophils # (A) 4.5 k/uL (1.3-7.7); Neutrophils % (A) 70 %; Platelet Count 226 k/uL (150-450); Poikilocytosis Marked; RBC 3.03 m/uL (3.80-5.40); RDW 16.6 % (11.5-15.5); WBC 6.4 k/uL (3.8-10.6)
[2020-10-03 06:48] LABS: ALT 6 U/L (4-34); AST 13 U/L (14-36); African American GFR (CKD) 30 (>60 ml/min/1.73 sqM); Alkaline Phosphatase 68 U/L (38-126); Anion Gap 7 mmol/L; Blood Urea Nitrogen 38 mg/dL (7-17); Calcium 8.1 mg/dL (8.4-10.2); Carbon Dioxide 22 mmol/L (22-30); Chloride 107 mmol/L (98-107); Glucose 276 mg/dL (74-99); Non-African American GFR(CKD) 26 (>60 ml/min/1.73 sqM); Potassium 4.2 mmol/L (3.5-5.1); Sodium 136 mmol/L (137-145); Total Bilirubin <0.1 mg/dL (0.2-1.3); Total Protein 5.7 g/dL (6.3-8.2)
[2020-10-03 07:25] LABS: Glucose,Whole Blood 254 mg/dL (75-99)
[2020-10-03] MEDS: carvediloL 3.125 MG TAB PO SCH ×2 (08:22→18:25)
[2020-10-03] MEDS: ACETAMINOPHEN TAB 325 MG TAB PO PRN (08:22)
[2020-10-03] MEDS: FLUoxetine HCL 20 MG CAP PO SCH (08:22)
[2020-10-03] MEDS: SODIUM BICARBONATE TAB 650 MG TAB PO SCH ×2 (08:22→18:25)
[2020-10-03] MEDS: amLODIPine 5 MG TAB PO SCH (08:22)
[2020-10-03] MEDS: FUROSEMIDE 20 MG TAB PO SCH (08:22)
[2020-10-03] MEDS: INSULIN ASPART (NovoLOG) 100 UNIT/ML VIAL SQ SCH ×4 (08:22→21:08)
[2020-10-03] MEDS: MULTIVITAMINS, THERA 1 EACH TAB PO SCH (08:22)
[2020-10-03] MEDS: SODIUM FERRIC GLUCONAT-SUCROSE 125 MG in SODIUM CHLORIDE 0.9% 100 ML IVPB SCH (10:33)
[2020-10-03 11:34] LABS: Glucose,Whole Blood 178 mg/dL (75-99)
--- NOTE | 2020-10-03 12:09 | P.GSCN ---
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 Patient presented to the hospital with anemia. She had reported hemoglobin of 6.0 outpatient. Patient reports having vaginal bleeding that lasted for one month. She states that this is new for her. Patient has been seen by MANAGER INTERN service and hematology. Patient did require blood transfusion during this admission. On admission hemoglobin was 6.6 and hemoglobin is now 8.6. Iron level has also low at 17. Surgical consult was placed for endoscopy and workup for iron deficiency anemia. Patient denies having any blood in her stools or black stools. She denies any abdominal pain. She denies any family history of colon cancer. Her anticoagulation is currently on hold. PAST MEDICAL HISTORY: See list. PAST SURGICAL HISTORY: See list. MEDICATIONS: See list. ALLERGIES: See list. SOCIAL HISTORY: No illicit drug use. REVIEW OF SYSTEMS: CONSTITUTIONAL: Denies fever or chills. HEENT: Denies blurred vision, vision changes, or eye pain. Denies hemoptysis CARDIOVASCULAR: Denies chest pain or pressure. RESPIRATORY: No shortness of breath. GASTROINTESTINAL: See HPI for pertinent findings HEMATOLOGIC: Denies bleeding disorders. GENITOURINARY: Denies any blood in urine or increased urinary frequency. SKIN: Denies pruitis. Denies rash. PHYSICAL EXAM: VITAL SIGNS: Reviewed GENERAL: Well-developed in no acute distress. HEENT: No sclera icterus. Extraocular movements grossly intact. Moist buccal mucosa. Head is atraumatic, normocephalic. No nasal drainage. ABDOMEN: Soft. Obese. Nondistended. Nontender NEUROLOGIC: Alert and oriented. Cranial nerves II through XII grossly intact. LABORATORY DATA: WBC is 6.4 hemoglobin 8.6 platelets 226 sodium 136 potassium 4.2 creatinine 2.35 Iron 17 TIBC 306 and saturation 5.56 ferritin 6.2 IMAGING: ASSESSMENT: 1. Anemia with iron deficiency 2. Vaginal bleeding seen by MANAGER INTERN service PLAN: -Patient scheduled for EGD and colonoscopy tomorrow 10/04/[address] Velazquez -Fortino Dunbar prep -Patient can have clear liquids today and then nothing by mouth after midnight Thank you for this consultation Physician Surgical Garment Fitter note has been reviewed by physician. Signing provider agrees with the documented findings, assessment, and plan of care. Past Medical History Past Medical History: CVA/TIA, Deep Vein Thrombosis (DVT), Myocardial Infarction ([place]) Additional Past Medical History / Comment(s): morbid obesity, pancreatitis, history of coma - 10/24/14 - until end december after suffering from a stroke. Last Myocardial Infarction Date:: 10/2014 History of Any Multi-Drug Resistant Organisms: ESBL, Other MDRO Year Discovered:: 07/16/20 ESBL E.coli MDRO Source:: Urine-ESBL Past Surgical History: Cholecystectomy Additional Past Surgical History / Comment(s): Cystoscopy with placement of left double-J catheter 02/16/2018, Gastric bypass 2015 Past Anesthesia/Blood Transfusion Reactions: No Reported Reaction Past Psychological History: Anxiety, Depression, Panic Disorder Smoking Status: Never smoker Past Alcohol Use History: None Reported Past Drug Use History: Marijuana - Past Family History Father History Unknown: Yes Family Medical History: Cancer Additional Family Medical History / Comment(s): lung Medications and Allergies Home Medications Medication Instructions Recorded Confirmed Type Ergocalciferol (Vitamin D2) 50,000 unit PO QMONTHLY 02/15/18 09/29/20 History [Drisdol (50,000 Iu)] FLUoxetine HCL [PROzac] 20 mg PO DAILY@0800 02/15/18 09/29/20 History Levothyroxine Sodium [Synthroid] 25 mcg PO HS@199902/15/18 09/29/20 History Melatonin 5 mg PO HS@199902/15/18 09/29/20 History Multivitamins, Thera [Multivitamin 1 tab PO DAILY@0800 02/15/18 09/29/20 History (formulary)] Acetaminophen Tab [Tylenol] 650 mg PO Q6H PRN 09/03/18 09/29/20 History Baclofen 10 mg PO HS@199907/25/20 09/29/20 History Carvedilol [Coreg] 3.125 mg PO BID@0800,1600 07/25/20 09/29/20 History Insulin Aspart [NovoLOG] See Protocol SQ ACHS@07,11,16,20 07/25/20 09/29/20 History Insulin Glargine,Hum.rec.anlog 14 unit SQ HS@199907/25/20 09/29/20 History [Lantus Solostar Pen] Sennosides/Docusate Sodium [Senna 2 tab PO HS@199907/25/20 09/29/20 History Plus 8.6-50 mg Softgel] amLODIPine [Norvasc] 5 mg PO DAILY@0800 07/25/20 09/29/20 History HYDROcodone/APAP 7.5-325MG [[place] 1 tab PO Q12HR PRN 3 Days #6 tab 07/29/20 09/29/20 Rx 7.5-325] traMADol HCl [Ultram] 50 mg PO TID@0500,1300,2100 3 Days 07/29/20 09/29/20 Rx #9 tab Apixaban [Eliquis] 5 mg PO BID@0800,1600 09/29/20 09/29/20 History Atorvastatin [Lipitor] 20 mg PO HS@199909/29/20 09/29/20 History Furosemide [Lasix] 20 mg PO DAILY@0800 09/29/20 09/29/20 History Sodium Bicarbonate Tab 650 mg PO BID@0800,1600 09/29/20 09/29/20 History clonazePAM [KlonoPIN] 0.5 mg PO HS@199909/29/20 09/29/20 History Allergies Allergy/AdvReac Type Severity Reaction Status Date / Time aspirin Allergy Rash/Hives Verified 09/29/20 07:34 sertraline HCl [From Zoloft] Allergy Unknown Verified 09/29/20 07:34 zolpidem tartrate Allergy Unknown Verified 09/29/20 07:34 [From Ambien] gabapentin [From Neurontin] AdvReac Severe SEVERE Verified 09/29/20 07:34 AGITATION ibuprofen [From Motrin] AdvReac AVOIDS D/T Verified 09/29/20 07:34 KIDNEY FUNCTION Surgical - Exam Vital Signs Temp Pulse Resp BP Pulse Ox 98.2 F 92 18 136/72 90 L 09/29/20 05:29 09/29/20 05:29 09/29/20 05:29 09/29/20 05:29 09/29/20 05:29 Results - Labs 10/03/20 06:10 10/03/20 06:10 Abnormal Lab Results - Last 24 Hours (Table) 09/30/20 10/02/20 10/02/20 Range/Units 07:39 16:16 20:20 RBC (3.80-5.40) m/uL Hgb (11.4-16.0) gm/dL Hct (34.0-46.0) % RDW (11.5-15.5) % Sodium (137-145) mmol/L BUN (7-17) mg/dL Creatinine (0.52-1.04) mg/dL Glucose (74-99) mg/dL POC Glucose (mg/dL) 257 H 272 H (75-99) mg/dL Calcium (8.4-10.2) mg/dL Total Bilirubin (0.2-1.3) mg/dL AST (14-36) U/L Total Protein (6.3-8.2) g/dL Albumin (3.5-5.0) g/dL Free [place] LC, Quant 7.24 H (0.33-1.94) mg/dL Free [place] LC, Quant 4.01 H (0.57-2.63) mg/dL 10/02/20 10/03/20 10/03/20 Range/Units 21:57 06:10 06:10 RBC 3.03 L (3.80-5.40) m/uL Hgb 8.6 L (11.4-16.0) gm/dL Hct 27.1 L (34.0-46.0) % RDW 16.6 H (11.5-15.5) % Sodium 136 L (137-145) mmol/L BUN 38 H (7-17) mg/dL Creatinine 2.35 H (0.52-1.04) mg/dL Glucose 276 H (74-99) mg/dL POC Glucose (mg/dL) 316 H (75-99) mg/dL Calcium 8.1 L (8.4-10.2) mg/dL Total Bilirubin <0.1 L (0.2-1.3) mg/dL AST 13 L (14-36) U/L Total Protein 5.7 L (6.3-8.2) g/dL Albumin 3.0 L (3.5-5.0) g/dL Free [place] LC, Quant (0.33-1.94) mg/dL Free Lambda LC, Quant (0.57-2.63) mg/dL 10/03/20 10/03/20 Range/Units 07:24 11:33 RBC (3.80-5.40) m/uL Hgb (11.4-16.0) gm/dL Hct (34.0-46.0) % RDW (11.5-15.5) % Sodium (137-145) mmol/L BUN (7-17) mg/dL Creatinine (0.52-1.04) mg/dL Glucose (74-99) mg/dL POC Glucose (mg/dL) 254 H 178 H (75-99) mg/dL Calcium (8.4-10.2) mg/dL Total Bilirubin (0.2-1.3) mg/dL AST (14-36) U/L Total Protein (6.3-8.2) g/dL Albumin (3.5-5.0) g/dL Free [place] LC, Quant (0.33-1.94) mg/dL Free [place] LC, Quant (0.57-2.63) mg/dL Diabetes panel 10/03/20 Range/Units 06:10 Sodium 136 L (137-145) mmol/L Potassium 4.2 (3.5-5.1) mmol/L Chloride 107 (98-107) mmol/L Carbon Dioxide 22 (22-30) mmol/L BUN 38 H (7-17) mg/dL Creatinine 2.35 H (0.52-1.04) mg/dL Glucose 276 H (74-99) mg/dL Calcium 8.1 L (8.4-10.2) mg/dL AST 13 L (14-36) U/L ALT 6 (4-34) U/L Alkaline Phosphatase 68 (38-126) U/L Total Protein 5.7 L (6.3-8.2) g/dL Albumin 3.0 L (3.5-5.0) g/dL Calcium panel 10/03/20 Range/Units 06:10 Calcium 8.1 L (8.4-10.2) mg/dL Albumin 3.0 L (3.5-5.0) g/dL Pituitary panel 10/03/20 Range/Units 06:10 Sodium 136 L (137-145) mmol/L Potassium 4.2 (3.5-5.1) mmol/L Chloride 107 (98-107) mmol/L Carbon Dioxide 22 (22-30) mmol/L BUN 38 H (7-17) mg/dL Creatinine 2.35 H (0.52-1.04) mg/dL Glucose 276 H (74-99) mg/dL Calcium 8.1 L (8.4-10.2) mg/dL Adrenal panel 10/03/20 Range/Units 06:10 Sodium 136 L (137-145) mmol/L Potassium 4.2 (3.5-5.1) mmol/L Chloride 107 (98-107) mmol/L Carbon Dioxide 22 (22-30) mmol/L BUN 38 H (7-17) mg/dL Creatinine 2.35 H (0.52-1.04) mg/dL Glucose 276 H (74-99) mg/dL Calcium 8.1 L (8.4-10.2) mg/dL Total Bilirubin <0.1 L (0.2-1.3) mg/dL AST 13 L (14-36) U/L ALT 6 (4-34) U/L Alkaline Phosphatase 68 (38-126) U/L Total Protein 5.7 L (6.3-8.2) g/dL Albumin 3.0 L (3.5-5.0) g/dL <Evert Velazquez - Last Filed: 10/03/20 12:13> History of Present Illness History of present illness: As above. We'll proceed with upper and lower endoscopy tomorrow. Surgical - Exam Vital Signs Temp Pulse Resp BP Pulse Ox 98.2 F 92 18 136/72 90 L 09/29/20 05:29 09/29/20 05:29 09/29/20 05:29 09/29/20 05:29 09/29/20 05:29 Results - Labs 10/03/20 06:10 10/03/20 06:10 Abnormal Lab Results - Last 24 Hours (Table) 09/30/20 10/02/20 10/02/20 Range/Units 07:39 16:16 20:20 RBC (3.80-5.40) m/uL Hgb (11.4-16.0) gm/dL Hct (34.0-46.0) % RDW (11.5-15.5) % Sodium (137-145) mmol/L BUN (7-17) mg/dL Creatinine (0.52-1.04) mg/dL Glucose (74-99) mg/dL POC Glucose (mg/dL) 257 H 272 H (75-99) mg/dL Calcium (8.4-10.2) mg/dL Total Bilirubin (0.2-1.3) mg/dL AST (14-36) U/L Total Protein (6.3-8.2) g/dL Albumin (3.5-5.0) g/dL Free [place] LC, Quant 7.24 H (0.33-1.94) mg/dL Free [place] LC, Quant 4.01 H (0.57-2.63) mg/dL 10/02/20 10/03/20 10/03/20 Range/Units 21:57 06:10 06:10 RBC 3.03 L (3.80-5.40) m/uL Hgb 8.6 L (11.4-16.0) gm/dL Hct 27.1 L (34.0-46.0) % RDW 16.6 H (11.5-15.5) % Sodium 136 L (137-145) mmol/L BUN 38 H (7-17) mg/dL Creatinine 2.35 H (0.52-1.04) mg/dL Glucose 276 H (74-99) mg/dL POC Glucose (mg/dL) 316 H (75-99) mg/dL Calcium 8.1 L (8.4-10.2) mg/dL Total Bilirubin <0.1 L (0.2-1.3) mg/dL AST 13 L (14-36) U/L Total Protein 5.7 L (6.3-8.2) g/dL Albumin 3.0 L (3.5-5.0) g/dL Free [place] LC, Quant (0.33-1.94) mg/dL Free [place] LC, Quant (0.57-2.63) mg/dL 10/03/20 10/03/20 Range/Units 07:24 11:33 RBC (3.80-5.40) m/uL Hgb (11.4-16.0) gm/dL Hct (34.0-46.0) % RDW (11.5-15.5) % Sodium (137-145) mmol/L BUN (7-17) mg/dL Creatinine (0.52-1.04) mg/dL Glucose (74-99) mg/dL POC Glucose (mg/dL) 254 H 178 H (75-99) mg/dL Calcium (8.4-10.2) mg/dL Total Bilirubin (0.2-1.3) mg/dL AST (14-36) U/L Total Protein (6.3-8.2) g/dL Albumin (3.5-5.0) g/dL Free [place] LC, Quant (0.33-1.94) mg/dL Free [place]ambda LC, Quant (0.57-2.63) mg/dL Diabetes panel 10/03/20 Range/Units 06:10 Sodium 136 L (137-145) mmol/L Potassium 4.2 (3.5-5.1) mmol/L Chloride 107 (98-107) mmol/L Carbon Dioxide 22 (22-30) mmol/L BUN 38 H (7-17) mg/dL Creatinine 2.35 H (0.52-1.04) mg/dL Glucose 276 H (74-99) mg/dL Calcium 8.1 L (8.4-10.2) mg/dL AST 13 L (14-36) U/L ALT 6 (4-34) U/L Alkaline Phosphatase 68 (38-126) U/L Total Protein 5.7 L (6.3-8.2) g/dL Albumin 3.0 L (3.5-5.0) g/dL Calcium panel 10/03/20 Range/Units 06:10 Calcium 8.1 L (8.4-10.2) mg/dL Albumin 3.0 L (3.5-5.0) g/dL Pituitary panel 10/03/20 Range/Units 06:10 Sodium 136 L (137-145) mmol/L Potassium 4.2 (3.5-5.1) mmol/L Chloride 107 (98-107) mmol/L Carbon Dioxide 22 (22-30) mmol/L BUN 38 H (7-17) mg/dL Creatinine 2.35 H (0.52-1.04) mg/dL Glucose 276 H (74-99) mg/dL Calcium 8.1 L (8.4-10.2) mg/dL Adrenal panel 10/03/20 Range/Units 06:10 Sodium 136 L (137-145) mmol/L Potassium 4.2 (3.5-5.1) mmol/L Chloride 107 (98-107) mmol/L Carbon Dioxide 22 (22-30) mmol/L BUN 38 H (7-17) mg/dL Creatinine 2.35 H (0.52-1.04) mg/dL Glucose 276 H (74-99) mg/dL Calcium 8.1 L (8.4-10.2) mg/dL Total Bilirubin <0.1 L (0.2-1.3) mg/dL AST 13 L (14-36) U/L ALT 6 (4-34) U/L Alkaline Phosphatase 68 (38-126) U/L Total Protein 5.7 L (6.3-8.2) g/dL Albumin 3.0 L (3.5-5.0) g/dL
[2020-10-03] MEDS ORDERED: PEG 3350-NA SULF,BICARB,CL/KCL 4,000 ML BOTTLE PO ONE (12:15)
[2020-10-03 12:40] LABS: Albumin 2.72 g/dL (3.80-4.90)
--- NOTE | 2020-10-03 15:59 | P.PN ---
Subjective Progress Note Date: 10/03/20 Principal diagnosis: DVT, anticoagulation, bleeding In follow-up today patient is receiving iron, she denies any side effects. She denies any current bleeding. She is going to be having endoscopy tomorrow. Objective - Vital Signs Vital signs: Vital Signs Temp 98.2 F 10/03/20 14:00 Pulse 91 10/03/20 14:00 Resp 17 10/03/20 14:00 BP 144/79 10/03/20 14:00 Pulse Ox 100 10/03/20 14:00 Intake & Output 10/02/20 10/03/20 10/03/20 18:59 06:59 18:59 Intake Total 480 250 Output Total 1200 650 Balance -720 250 -650 Weight 125.5 kg Intake: Oral 480 250 Output: Urine 1200 650 Other: Voiding Method External Catheter External Catheter # Voids 4 - Constitutional General appearance: Present: cooperative, morbidly obese, no acute distress - EENT Eyes: Present: anicteric sclerae, EOMI ENT: Present: hearing grossly normal - Respiratory Respiratory: bilateral: CTA - Cardiovascular Rhythm: regular Heart sounds: normal: S1, S2 Abnormal Heart Sounds: Absent: systolic murmur, diastolic murmur, rub, S3 Ga llop, S4 Gallop, click, other - Peripheral edema leg Peripheral Edema: bilateral: Trace - Gastrointestinal General gastrointestinal: Present: normal bowel sounds, soft - Neurologic Neurologic: Present: CNII-XII intact - Musculoskeletal Musculoskeletal: Present: generalized weakness, strength equal bilaterally - Psychiatric Psychiatric: Present: A&O x's 3 - Labs CBC & Chem 7: 10/03/20 06:10 10/03/20 06:10 Labs: Abnormal Lab Results - Last 24 Hours (Table) 09/30/20 10/02/20 10/02/20 Range/Units 07:39 16:16 20:20 RBC (3.80-5.40) m/uL Hgb (11.4-16.0) gm/dL Hct (34.0-46.0) % RDW (11.5-15.5) % Sodium (137-145) mmol/L BUN (7-17) mg/dL Creatinine (0.52-1.04) mg/dL Glucose (74-99) mg/dL POC Glucose (mg/dL) 257 H 272 H (75-99) mg/dL Calcium (8.4-10.2) mg/dL Total Bilirubin (0.2-1.3) mg/dL AST (14-36) U/L Total Protein (6.3-8.2) g/dL Albumin (3.5-5.0) g/dL Albumin (PEP) 2.72 L (3.80-4.90) g/dL 10/02/20 10/03/20 10/03/20 Range/Units 21:57 06:10 06:10 RBC 3.03 L (3.80-5.40) m/uL Hgb 8.6 L (11.4-16.0) gm/dL Hct 27.1 L (34.0-46.0) % RDW 16.6 H (11.5-15.5) % Sodium 136 L (137-145) mmol/L BUN 38 H (7-17) mg/dL Creatinine 2.35 H (0.52-1.04) mg/dL Glucose 276 H (74-99) mg/dL POC Glucose (mg/dL) 316 H (75-99) mg/dL Calcium 8.1 L (8.4-10.2) mg/dL Total Bilirubin <0.1 L (0.2-1.3) mg/dL AST 13 L (14-36) U/L Total Protein 5.7 L (6.3-8.2) g/dL Albumin 3.0 L (3.5-5.0) g/dL Albumin (PEP) (3.80-4.90) g/dL 10/03/20 10/03/20 Range/Units 07:24 11:33 RBC (3.80-5.40) m/uL Hgb (11.4-16.0) gm/dL Hct (34.0-46.0) % RDW (11.5-15.5) % Sodium (137-145) mmol/L BUN (7-17) mg/dL Creatinine (0.52-1.04) mg/dL Glucose (74-99) mg/dL POC Glucose (mg/dL) 254 H 178 H (75-99) mg/dL Calcium (8.4-10.2) mg/dL Total Bilirubin (0.2-1.3) mg/dL AST (14-36) U/L Total Protein (6.3-8.2) g/dL Albumin (3.5-5.0) g/dL Albumin (PEP) (3.80-4.90) g/dL Assessment and Plan (1) Iron deficiency anemia Current Visit: Yes Status: Chronic Priority: Medium Code(s): D50.9 - IRON DEFICIENCY ANEMIA, UNSPECIFIED SNOMED Code(s): 90394486 (2) DVT (deep venous thrombosis) Current Visit: Yes Status: Chronic Priority: Medium Code(s): I82.409 - ACUTE EMBOLISM AND THOMBOS UNSP DEEP VN UNSP LOWER EXTREMITY SNOMED Code(s): 221624740 Plan: Patient has a history of blood clots. She was on eliquis coming into the hospital. This had to be held secondary to bleeding. Patient does have iron d eficient anemia. Patient is receiving parenteral iron without complaints at this time. Continue to completion of scheduled doses Patient is going to have endoscopy upper and lower tomorrow. Pending findings Going to have to work with CUTTING DEPARTMENT SUPERVISOR re treatment. Hormonal therapy-to reduce vaginal bleeding-with anticoagulation-history of DVT, increased risk of DVT on hormonal therapy.
[2020-10-03 16:48] LABS: Glucose,Whole Blood 178 mg/dL (75-99)
[2020-10-03] MEDS ORDERED: SODIUM CHLORIDE 0.9% 1,000 ML IV STA (17:24)
--- NOTE | 2020-10-03 17:27 | P.PN ---
Subjective Progress Note Date: 10/03/20 Radha Christensen, is a 35-year-old female with multiple medical problems who currently resides at the skilled nursing, patient was noticed to have a hemoglobin of 6.5, she was sent to emergency room for further evaluation and treatment Patient has a known history of anemia, she had a known history of irregular v aginal bleeding contributing to her anemia, patient also has a known history of DVT, CVA and myocardial infarction, she is maintained on Eliquis 5 mg by mouth twice a day at the skilled nursing. Patient was evaluated in the emergency room her vital exam revealed a temperature of 98.5 pulse 90 respirations 16 blood pressure 138/80 pulse ox 100% on room air laboratory data revealed a white blood count of 6.1 hemoglobin 6.6 platelet count 181 sodium 133 potassium 4.1 BUN 25 creatinine 2.04 glucose 229 patient was admitted to medical floor 1 unit of red blood cell transfusion was ordered. Eliquis was held consultation for hematology and gynecology were initiated. On review of systems patient is alert and oriented x 3 in no distress, she denies any complaints there is no fever or chills no headache or dizziness no chest pain no shortness of breath no palpitation no cough no nausea or vomiting no abdominal pain no diarrhea no blood in the stools no burning with urination no frequency or urgency and no hematuria, there is no weakness or numbness in any of the extremities no change in vision speech . On 09/30/2020 patient's alert and oriented 3. Hemoglobin 8.3. No further episodes of bleeding. Patient denies any blood in stool. Patient was evaluated by ENGRAVER WOOD. Per ENGRAVER WOOD history consistent with diagnosis of polycystic ovarian syndrome and patient may be a candidate for progesterone only product to aid in menstrual cycles. Awaiting hematology input regards to eliquis. This time patient denies chest pain or shortness of breath. Patient denies any urinary burning or frequency. Patient denies any urinary burning or frequency On 10/01/2020 Patient was seen and examined on the medical floor, he is alert and oriented x 3 in no distress, he denies any complaints there is no fever or chills no headache or dizziness no chest pain no shortness of breath no palpitation no cough no nausea or vomiting no abdominal pain no diarrhea no blood in the stools no burning with urination no frequency or urgency and no hematuria, there is no weakness or numbness in any of the extremities no change in vision speech or gait. At this time we are still awaiting further recommendation from hematology in regard to anemia, also we are waiting for recommendation in regard to anticoagulation. On 10/02/2020 patient's alert and oriented 3. Hemoglobin 9.0. Repeat venous Doppler completed per hematology ordered uric awaiting hematology recommendation in regards to anticoagulation. At this time patient denies chest pain or shortness of breath. Patient denies nausea vomiting or diarrhea. Patient denies any urinary burning or frequency. On 10/03/2020 patient was seen and examined on the medical floor she is alert and oriented 3 in no apparent distress she is complaining of generalized weakness otherwise she denies any complaints he is having some vaginal bleeding recommendation by hematology is to proceed with EGD and colonoscopy which is scheduled for tomorrow. Kidney function has worsened significantly since admission creatinine on presentation was 2.04 it went up to 2.41 yesterday she was started on IV fluid normal saline at 75 mL/h Objective - Vital Signs Vital signs: Vital Signs Temp 98.2 F 10/03/20 14:00 Pulse 91 10/03/20 14:00 Resp 17 10/03/20 14:00 BP 144/79 10/03/20 14:00 Pulse Ox 100 10/03/20 14:00 Intake & Output 10/02/20 10/03/20 10/03/20 18:59 06:59 18:59 Intake Total 480 250 Output Total 1200 1050 Balance -720 250 -1050 Weight 125.5 kg Intake: Oral 480 250 Output: Urine 1200 1050 Other: Voiding Method External Catheter External Catheter # Voids 4 - Exam In general patient is alert and oriented x 3 in no distress HEENT head normocephalic and atraumatic Neck is supple no JVD no goiter no lymphadenopathy no carotid bruit Chest examination is clear to auscultation no crackles no wheezing Cardiac exam reveals regular heart sounds S1 and S2 no gallops no murmurs Abdomen is soft nontender no organomegaly with normal bowel sounds Extremity exam reveals no edema no cyanosis or clubbing Neurological examination reveals no gross focal deficits - Labs CBC & Chem 7: 10/03/20 06:10 10/03/20 06:10 Labs: Abnormal Lab Results - Last 24 Hours (Table) 09/30/20 10/02/20 10/02/20 Range/Units 07:39 20:20 21:57 RBC (3.80-5.40) m/uL Hgb (11.4-16.0) gm/dL Hct (34.0-46.0) % RDW (11.5-15.5) % Sodium (137-145) mmol/L BUN (7-17) mg/dL Creatinine (0.52-1.04) mg/dL Glucose (74-99) mg/dL POC Glucose (mg/dL) 272 H 316 H (75-99) mg/dL Calcium (8.4-10.2) mg/dL Total Bilirubin (0.2-1.3) mg/dL AST (14-36) U/L Total Protein (6.3-8.2) g/dL Albumin (3.5-5.0) g/dL Albumin (PEP) 2.72 L (3.80-4.90) g/dL 10/03/20 10/03/20 10/03/20 Range/Units 06:10 06:10 07:24 RBC 3.03 L (3.80-5.40) m/uL Hgb 8.6 L (11.4-16.0) gm/dL Hct 27.1 L (34.0-46.0) % RDW 16.6 H (11.5-15.5) % Sodium 136 L (137-145) mmol/L BUN 38 H (7-17) mg/dL Creatinine 2.35 H (0.52-1.04) mg/dL Glucose 276 H (74-99) mg/dL POC Glucose (mg/dL) 254 H (75-99) mg/dL Calcium 8.1 L (8.4-10.2) mg/dL Total Bilirubin <0.1 L (0.2-1.3) mg/dL AST 13 L (14-36) U/L Total Protein 5.7 L (6.3-8.2) g/dL Albumin 3.0 L (3.5-5.0) g/dL Albumin (PEP) (3.80-4.90) g/dL 10/03/20 10/03/20 Range/Units 11:33 16:37 RBC (3.80-5.40) m/uL Hgb (11.4-16.0) gm/dL Hct (34.0-46.0) % RDW (11.5-15.5) % Sodium (137-145) mmol/L BUN (7-17) mg/dL Creatinine (0.52-1.04) mg/dL Glucose (74-99) mg/dL POC Glucose (mg/dL) 178 H 178 H (75-99) mg/dL Calcium (8.4-10.2) mg/dL Total Bilirubin (0.2-1.3) mg/dL AST (14-36) U/L Total Protein (6.3-8.2) g/dL Albumin (3.5-5.0) g/dL Albumin (PEP) (3.80-4.90) g/dL Assessment and Plan Plan: Severe anemia at this time will give 1 unit of red blood cell transfusion Irregular vaginal bleeding gynecology consultation was requested. Per ENGRAVER WOOD history consistent with diagnosis of polycystic ovarian syndrome and patient may be a candidate for progesterone only product to aid in menstrual cycles. Underlying history of of DVT Underlying history of CVA and myocardial infarction History of diabetes mellitus type 2 History of hypothyroidism Essential hypertension History of anxiety History of hyperlipidemia Acute kidney injury on top of chronic kidney disease stage III at this time patient is maintained on normal saline at 75 mL an hour At this time patient is admitted to medical floor 1 unit of red blood cell was ordered Consultation for hematology to assess anemia and need for anticoagulation was requested Consultation for gynecology to assess irregular vaginal bleeding Will follow closely
[2020-10-03 20:52] LABS: Glucose,Whole Blood 181 mg/dL (75-99)
[2020-10-03] MEDS: clonazePAM 0.5 MG TAB PO SCH (21:07)
[2020-10-03] MEDS: SENNOSIDES-DOCUSATE SODIUM 1 EACH TAB PO SCH (21:07)
[2020-10-03] MEDS: ATORVASTATIN 20 MG TAB PO SCH (21:07)
[2020-10-03] MEDS: BACLOFEN 10 MG TAB PO SCH (21:07)
[2020-10-03] MEDS: MELATONIN 5 MG TABLET PO SCH (21:07)
[2020-10-03] MEDS: INSULIN DETEMIR (LEVEMIR) 100 UNIT/ML SYR SQ SCH (21:08)
[2020-10-03] MEDS: LEVOTHYROXINE 25 MCG TAB PO SCH (21:08)
[2020-10-04] MEDS: traMADol 50 MG TAB PO SCH ×3 (04:30→21:00)
[2020-10-04 06:52] LABS: Glucose,Whole Blood 122 mg/dL (75-99)
[2020-10-04] MEDS: carvediloL 3.125 MG TAB PO SCH ×2 (07:46→18:12)
[2020-10-04] MEDS: HYDROcodone/APAP 7.5-325MG 1 EACH TAB PO PRN ×2 (07:46→18:42)
[2020-10-04] MEDS: amLODIPine 5 MG TAB PO SCH (07:46)
[2020-10-04 07:49] LABS: Anisocytosis Slight; Basophils % (A) 0 %; Eosinophils # (A) 0.2 k/uL (0-0.7); Eosinophils % (A) 3 %; HCT 25.5 % (34.0-46.0); Hypochromasia Marked; Lymphocytes # (A) 1.1 k/uL (1.0-4.8); Lymphocytes % (A) 19 %; MCHC 31.3 g/dL (31.0-37.0); MCV 89.5 fL (80.0-100.0); Mean Platelet Volume 8.2; Monocytes # (A) 0.3 k/uL (0-1.0); Monocytes % (A) 5 %; Neutrophils # (A) 4.3 k/uL (1.3-7.7); Neutrophils % (A) 72 %; Platelet Count 198 k/uL (150-450); Poikilocytosis Moderate; RBC 2.85 m/uL (3.80-5.40); RDW 16.7 % (11.5-15.5); WBC 5.9 k/uL (3.8-10.6)
[2020-10-04 07:56] LABS: African American GFR (CKD) 35 (>60 ml/min/1.73 sqM); Anion Gap 6 mmol/L; Blood Urea Nitrogen 29 mg/dL (7-17); Calcium 8.3 mg/dL (8.4-10.2); Carbon Dioxide 28 mmol/L (22-30); Chloride 107 mmol/L (98-107); Glucose 122 mg/dL (74-99); Non-African American GFR(CKD) 30 (>60 ml/min/1.73 sqM); Potassium 3.7 mmol/L (3.5-5.1); Sodium 141 mmol/L (137-145)
[2020-10-04] MEDS ORDERED: MAGNESIUM CITRATE 296 ML BOTTLE PO ONE (09:05)
[2020-10-04] MEDS: INSULIN ASPART (NovoLOG) 100 UNIT/ML VIAL SQ SCH ×4 (09:07→21:01)
[2020-10-04] MEDS: FLUoxetine HCL 20 MG CAP PO SCH (09:07)
[2020-10-04] MEDS: FUROSEMIDE 20 MG TAB PO SCH (09:08)
[2020-10-04] MEDS: SODIUM BICARBONATE TAB 650 MG TAB PO SCH ×2 (09:08→18:12)
[2020-10-04] MEDS: MULTIVITAMINS, THERA 1 EACH TAB PO SCH (09:08)
[2020-10-04] MEDS: SODIUM FERRIC GLUCONAT-SUCROSE 125 MG in SODIUM CHLORIDE 0.9% 100 ML IVPB SCH (09:36)
[2020-10-04 11:05] LABS: Glucose,Whole Blood 149 mg/dL (75-99)
--- NOTE | 2020-10-04 13:52 | P.PN ---
<AbbieTosha - Last Filed: 10/04/20 13:47> Subjective Progress Note Date: 10/04/20 CHIEF COMPLAINT: Anemia HISTORY OF PRESENT ILLNESS: Patient initially scheduled for EGD and colonoscopy for further evaluation of her anemia today. Unfortunately patient had poor bowel prep. EGD and colonoscopy was canceled and will be rescheduled for tomorrow. Patient has no rectal bleeding reported. Reports no blood in her sto ols. Her vaginal bleeding has restarted. Per nursing staff she did pass a blood clot vaginally. Patient denies any abdominal pain. Denies any nausea or vomiting. Afebrile. WBC 5.9 hemoglobin 8.0 platelets 198 creatinine 2.07 PHYSICAL EXAM: VITAL SIGNS: Reviewed. GENERAL: Well-developed in no acute distress. HEENT: No sclera icterus. Extraocular movements grossly intact. Moist buccal mucosa. Head is atraumatic, normocephalic. ABDOMEN: Soft. Obese. Nondistended. Minimal lower abdominal tenderness with palpation NEUROLOGIC: Alert and oriented. Cranial nerves II through XII grossly intact. ASSESSMENT: 1. Anemia with iron deficiency 2. Vaginal bleeding seen by SPRING ENCASER service PLAN: -Patient rescheduled for EGD and colonoscopy for tomorrow 10/05/2020 due to poor bowel prep -Patient given a bottle of citrate of mag -Keep patient nothing by mouth after midnight Physician Parts Sales Associate note has been reviewed by physician. Signing provider agrees with the documented findings, assessment, and plan of care. Objective - Vital Signs Vital signs: Vital Signs Temp 97.6 F 10/04/20 07:49 Pulse 100 10/04/20 07:49 Resp 18 10/04/20 07:49 BP 158/95 10/04/20 07:49 Pulse Ox 98 10/04/20 07:49 Intake & Output 10/03/20 10/04/20 10/04/20 18:59 06:59 18:59 Output Total 1050 Balance -1050 Weight 126 kg Output: Urine 1050 Other: Voiding Method External Catheter Diaper Diaper # Voids 3 # Bowel Movements 2 1 - Labs CBC & Chem 7: 10/04/20 07:07 10/04/20 07:07 Labs: Abnormal Lab Results - Last 24 Hours (Table) 10/03/20 10/03/20 10/04/20 Range/Units 16:37 20:50 06:51 RBC (3.80-5.40) m/uL Hgb (11.4-16.0) gm/dL Hct (34.0-46.0) % RDW (11.5-15.5) % BUN (7-17) mg/dL Creatinine (0.52-1.04) mg/dL Glucose (74-99) mg/dL POC Glucose (mg/dL) 178 H 181 H 122 H (75-99) mg/dL Calcium (8.4-10.2) mg/dL 10/04/20 10/04/20 10/04/20 Range/Units 07:07 07:07 11:03 RBC 2.85 L (3.80-5.40) m/uL Hgb 8.0 L (11.4-16.0) gm/dL Hct 25.5 L (34.0-46.0) % RDW 16.7 H (11.5-15.5) % BUN 29 H (7-17) mg/dL Creatinine 2.07 H (0.52-1.04) mg/dL Glucose 122 H (74-99) mg/dL POC Glucose (mg/dL) 149 H (75-99) mg/dL Calcium 8.3 L (8.4-10.2) mg/dL <Evert Velazquez - Last Filed: 10/04/20 16:05> Subjective As above. Patient drank the bowel prep appropriately however still having around stools. Will give additional prep today. Monitor for completeness of prep. Rescheduled for upper and lower endoscopy tomorrow. Spoke with Dr. Davenport. He will be performing the procedure and is agreeable. Patient is also agreeable with that change and plan. Objective - Vital Signs Vital signs: Vital Signs Temp 98 F 10/04/20 14:00 Pulse 98 10/04/20 14:00 Resp 18 10/04/20 14:00 BP 119/72 10/04/20 14:00 Pulse Ox 96 10/04/20 14:00 Intake & Output 10/03/20 10/04/20 10/04/20 18:59 06:59 18:59 Output Total 1050 Balance -1050 Weight 126 kg Output: Urine 1050 Other: Voiding Method External Catheter Diaper Diaper # Voids 3 # Bowel Movements 2 1 - Labs CBC & Chem 7: 10/04/20 07:07 10/04/20 07:07 Labs: Abnormal Lab Results - Last 24 Hours (Table) 10/03/20 10/03/20 10/04/20 Range/Units 16:37 20:50 06:51 RBC (3.80-5.40) m/uL Hgb (11.4-16.0) gm/dL Hct (34.0-46.0) % RDW (11.5-15.5) % BUN (7-17) mg/dL Creatinine (0.52-1.04) mg/dL Glucose (74-99) mg/dL POC Glucose (mg/dL) 178 H 181 H 122 H (75-99) mg/dL Calcium (8.4-10.2) mg/dL 10/04/20 10/04/20 10/04/20 Range/Units 07:07 07:07 11:03 RBC 2.85 L (3.80-5.40) m/uL Hgb 8.0 L (11.4-16.0) gm/dL Hct 25.5 L (34.0-46.0) % RDW 16.7 H (11.5-15.5) % BUN 29 H (7-17) mg/dL Creatinine 2.07 H (0.52-1.04) mg/dL Glucose 122 H (74-99) mg/dL POC Glucose (mg/dL) 149 H (75-99) mg/dL Calcium 8.3 L (8.4-10.2) mg/dL
--- NOTE | 2020-10-04 16:21 | P.PN ---
Subjective Progress Note Date: 10/04/20 Principal diagnosis: Hx of DVT on anticoagulation, bleeding. Hormonal control In follow-up today patient is receiving iron, she denies any side effects. She denies any current bleeding. Poor prep, endoscopy tomorrow. Objective - Vital Signs Vital signs: Vital Signs Temp 98 F 10/04/20 14:00 Pulse 98 10/04/20 14:00 Resp 18 10/04/20 14:00 BP 119/72 10/04/20 14:00 Pulse Ox 96 10/04/20 14:00 Intake & Output 10/03/20 10/04/20 10/04/20 18:59 06:59 18:59 Output Total 1050 Balance -1050 Weight 126 kg Output: Urine 1050 Other: Voiding Method External Catheter Diaper Diaper # Voids 3 # Bowel Movements 2 1 - Constitutional General appearance: Present: cooperative, morbidly obese, no acute distress - EENT Eyes: Present: anicteric sclerae - Respiratory Respiratory: bilateral: CTA - Cardiovascular Rhythm: regular Heart sounds: normal: S1, S2 Abnormal Heart Sounds: Absent: systolic murmur, diastolic murmur, rub, S3 Ga llop, S4 Gallop, click, other - Peripheral edema leg Peripheral Edema: bilateral: None - Gastrointestinal General gastrointestinal: Present: normal bowel sounds, soft - Musculoskeletal Musculoskeletal: Present: generalized weakness - Psychiatric Psychiatric: Present: A&O x's 3 - Labs CBC & Chem 7: 10/04/20 07:07 10/04/20 07:07 Labs: Abnormal Lab Results - Last 24 Hours (Table) 10/03/20 10/03/20 10/04/20 Range/Units 16:37 20:50 06:51 RBC (3.80-5.40) m/uL Hgb (11.4-16.0) gm/dL Hct (34.0-46.0) % RDW (11.5-15.5) % BUN (7-17) mg/dL Creatinine (0.52-1.04) mg/dL Glucose (74-99) mg/dL POC Glucose (mg/dL) 178 H 181 H 122 H (75-99) mg/dL Calcium (8.4-10.2) mg/dL 10/04/20 10/04/20 10/04/20 Range/Units 07:07 07:07 11:03 RBC 2.85 L (3.80-5.40) m/uL Hgb 8.0 L (11.4-16.0) gm/dL Hct 25.5 L (34.0-46.0) % RDW 16.7 H (11.5-15.5) % BUN 29 H (7-17) mg/dL Creatinine 2.07 H (0.52-1.04) mg/dL Glucose 122 H (74-99) mg/dL POC Glucose (mg/dL) 149 H (75-99) mg/dL Calcium 8.3 L (8.4-10.2) mg/dL Assessment and Plan (1) Iron deficiency anemia Current Visit: Yes Status: Chronic Priority: Medium Code(s): D50.9 - IRON DEFICIENCY ANEMIA, UNSPECIFIED SNOMED Code(s): 14114148 (2) DVT (deep venous thrombosis) Current Visit: Yes Status: Chronic Priority: Medium Code(s): I82.409 - ACUTE EMBOLISM AND THOMBOS UNSP DEEP VN UNSP LOWER EXTREMITY SNOMED Code(s): 811331250 Plan: Patient has a history of blood clots. She was on eliquis coming into the hospital. This had to be held secondary to bleeding. Patient has iron deficient anemia. Patient is receiving parenteral iron without complaints at this time. Continue to completion of scheduled doses. Endoscopy upper and lower tomorrow. Pending findings Going to have to work with E LEARNING COORDINATOR re treatment. Hormonal therapy-to reduce vaginal bleeding-with anticoagulation-history of DVT, increased risk of DVT on hormonal therapy.
[2020-10-04 16:49] LABS: Glucose,Whole Blood 168 mg/dL (75-99)
[2020-10-04 20:58] LABS: Glucose,Whole Blood 157 mg/dL (75-99)
[2020-10-04] MEDS: ATORVASTATIN 20 MG TAB PO SCH (20:59)
[2020-10-04] MEDS: LEVOTHYROXINE 25 MCG TAB PO SCH (21:00)
[2020-10-04] MEDS: clonazePAM 0.5 MG TAB PO SCH (21:00)
[2020-10-04] MEDS: INSULIN DETEMIR (LEVEMIR) 100 UNIT/ML SYR SQ SCH (21:01)
[2020-10-04] MEDS: BACLOFEN 10 MG TAB PO SCH (21:01)
[2020-10-04] MEDS: LACTATED RINGERS 1,000 ML IV SCH (21:02)
[2020-10-04] MEDS: SENNOSIDES-DOCUSATE SODIUM 1 EACH TAB PO SCH (21:02)
[2020-10-04] MEDS: MELATONIN 5 MG TABLET PO SCH (21:05)
[2020-10-05] MEDS: traMADol 50 MG TAB PO SCH ×3 (05:40→21:17)
[2020-10-05 06:08] LABS: Anisocytosis Slight; HCT 25.6 % (34.0-46.0); HGB 8.1 gm/dL (11.4-16.0); Hypochromasia Marked; MCH 28.4 pg (25.0-35.0); MCHC 31.5 g/dL (31.0-37.0); Mean Platelet Volume 7.3; Platelet Count 205 k/uL (150-450); Poikilocytosis Moderate; RBC 2.85 m/uL (3.80-5.40); RDW 17.5 % (11.5-15.5); WBC 6.2 k/uL (3.8-10.6)
[2020-10-05 06:34] LABS: African American GFR (CKD) 35 (>60 ml/min/1.73 sqM); Anion Gap 3 mmol/L; Blood Urea Nitrogen 24 mg/dL (7-17); Calcium 8.7 mg/dL (8.4-10.2); Carbon Dioxide 28 mmol/L (22-30); Chloride 107 mmol/L (98-107); Glucose 114 mg/dL (74-99); Non-African American GFR(CKD) 30 (>60 ml/min/1.73 sqM); Potassium 3.6 mmol/L (3.5-5.1); Sodium 138 mmol/L (137-145)
[2020-10-05 06:41] LABS: Glucose,Whole Blood 124 mg/dL (75-99)
[2020-10-05] MEDS: FLUoxetine HCL 20 MG CAP PO SCH (07:15)
[2020-10-05] MEDS: carvediloL 3.125 MG TAB PO SCH ×2 (07:15→15:29)
[2020-10-05] MEDS: HYDROcodone/APAP 7.5-325MG 1 EACH TAB PO PRN ×2 (07:16→19:50)
[2020-10-05] MEDS: INSULIN ASPART (NovoLOG) 100 UNIT/ML VIAL SQ SCH ×4 (07:16→19:56)
[2020-10-05] MEDS: MULTIVITAMINS, THERA 1 EACH TAB PO SCH (07:16)
[2020-10-05] MEDS: FUROSEMIDE 20 MG TAB PO SCH (07:16)
[2020-10-05] MEDS: amLODIPine 5 MG TAB PO SCH (07:16)
[2020-10-05] MEDS: SODIUM BICARBONATE TAB 650 MG TAB PO SCH ×2 (07:16→15:29)
[2020-10-05 11:34] LABS: Glucose,Whole Blood 153 mg/dL (75-99)
[2020-10-05] MEDS: SODIUM FERRIC GLUCONAT-SUCROSE 125 MG in SODIUM CHLORIDE 0.9% 100 ML IVPB SCH (12:11)
--- NOTE | 2020-10-05 12:25 | P.PN ---
Subjective Progress Note Date: 10/05/20 Radha Christensen, is a 35-year-old female with multiple medical problems who currently resides at the [facility], patient was noticed to have a hemoglobin of 6.5, she was sent to emergency room for further evaluation and treatment Patient has a known history of anemia, she had a known history of irregular v aginal bleeding contributing to her anemia, patient also has a known history of DVT, CVA and myocardial infarction, she is maintained on Eliquis 5 mg by mouth twice a day at the half-way. Patient was evaluated in the emergency room her vital exam revealed a temperature of 98.5 pulse 90 respirations 16 blood pressure 138/80 pulse ox 100% on room air laboratory data revealed a white blood count of 6.1 hemoglobin 6.6 platelet count 181 sodium 133 potassium 4.1 BUN 25 creatinine 2.04 glucose 229 patient was admitted to medical floor 1 unit of red blood cell transfusion was ordered. Eliquis was held consultation for hematology and gynecology were initiated. On review of systems patient is alert and oriented x 3 in no distress, she denies any complaints there is no fever or chills no headache or dizziness no chest pain no shortness of breath no palpitation no cough no nausea or vomiting no abdominal pain no diarrhea no blood in the stools no burning with urination no frequency or urgency and no hematuria, there is no weakness or numbness in any of the extremities no change in vision speech . On 09/30/2020 patient's alert and oriented 3. Hemoglobin 8.3. No further episodes of bleeding. Patient denies any blood in stool. Patient was evaluated by INFORMATION TECHNOLOGY ADMINISTRATOR. Per INFORMATION TECHNOLOGY ADMINISTRATOR history consistent with diagnosis of polycystic ovarian syndrome and patient may be a candidate for progesterone only product to aid in menstrual cycles. Awaiting hematology input regards to eliquis. This time patient denies chest pain or shortness of breath. Patient denies any urinary burning or frequency. Patient denies any urinary burning or frequency On 10/01/2020 Patient was seen and examined on the medical floor, he is alert and oriented x 3 in no distress, he denies any complaints there is no fever or chills no headache or dizziness no chest pain no shortness of breath no palpitation no cough no nausea or vomiting no abdominal pain no diarrhea no blood in the stools no burning with urination no frequency or urgency and no hematuria, there is no weakness or numbness in any of the extremities no change in vision speech or gait. At this time we are still awaiting further recommendation from hematology in regard to anemia, also we are waiting for recommendation in regard to anticoagulation. On 10/02/2020 patient's alert and oriented 3. Hemoglobin 9.0. Repeat venous Doppler completed per hematology ordered uric awaiting hematology recommendation in regards to anticoagulation. At this time patient denies chest pain or shortness of breath. Patient denies nausea vomiting or diarrhea. Patient denies any urinary burning or frequency. On 10/03/2020 patient was seen and examined on the medical floor she is alert and oriented 3 in no apparent distress she is complaining of generalized weakness otherwise she denies any complaints he is having some vaginal bleeding recommendation by hematology is to proceed with EGD and colonoscopy which is scheduled for tomorrow. Kidney function has worsened significantly since admission creatinine on presentation was 2.04 it went up to 2.41 yesterday she was started on IV fluid normal saline at 75 mL/h On 10/05/2020 patient's alert and oriented 3. Plans for EGD and colonoscopy today. Creatinine improving to 2.09 bun 24. Hemoglobin 8.1. 3 days of IV iron has been ordered. At this time patient denies chest pain or shortness breath. Denies nausea vomiting or diarrhea. Patient denies any urinary burning or frequency Objective - Vital Signs Vital signs: Vital Signs Temp 98.1 F 10/05/20 06:51 Pulse 90 10/05/20 06:51 Resp 18 10/05/20 06:51 BP 138/71 10/05/20 06:51 Pulse Ox 98 10/05/20 09:39 Intake & Output 10/04/20 10/05/20 10/05/20 18:59 06:59 18:59 Weight 108.5 kg Other: Voiding Method Diaper Diaper Diaper Incontinent Incontinent # Voids 7 4 # Bowel Movements 7 3 - Exam In general patient is alert and oriented x 3 in no distress HEENT head normocephalic and atraumatic Neck is supple no JVD no goiter no lymphadenopathy no carotid bruit Chest examination is clear to auscultation no crackles no wheezing Cardiac exam reveals regular heart sounds S1 and S2 no gallops no murmurs Abdomen is soft nontender no organomegaly with normal bowel sounds Extremity exam reveals no edema no cyanosis or clubbing Neurological examination reveals no gross focal deficits - Labs CBC & Chem 7: 10/05/20 05:46 10/05/20 05:46 Labs: Abnormal Lab Results - Last 24 Hours (Table) 10/04/20 10/04/20 10/05/20 Range/Units 16:48 20:44 05:46 RBC 2.85 L (3.80-5.40) m/uL Hgb 8.1 L (11.4-16.0) gm/dL Hct 25.6 L (34.0-46.0) % RDW 17.5 H (11.5-15.5) % BUN (7-17) mg/dL Creatinine (0.52-1.04) mg/dL Glucose (74-99) mg/dL POC Glucose (mg/dL) 168 H 157 H (75-99) mg/dL 10/05/20 10/05/20 10/05/20 Range/Units 05:46 06:37 11:32 RBC (3.80-5.40) m/uL Hgb (11.4-16.0) gm/dL Hct (34.0-46.0) % RDW (11.5-15.5) % BUN 24 H (7-17) mg/dL Creatinine 2.09 H (0.52-1.04) mg/dL Glucose 114 H (74-99) mg/dL POC Glucose (mg/dL) 124 H 153 H (75-99) mg/dL Assessment and Plan Plan: Severe anemia at this time will give 1 unit of red blood cell transfusion Irregular vaginal bleeding gynecology consultation was requested. Per INFORMATION TECHNOLOGY ADMINISTRATOR history consistent with diagnosis of polycystic ovarian syndrome and patient may be a candidate for progesterone only product to aid in menstrual cycles. Underlying history of of DVT Underlying history of CVA and myocardial infarction History of diabetes mellitus type 2 History of hypothyroidism Essential hypertension History of anxiety History of hyperlipidemia Acute kidney injury on top of chronic kidney disease stage III at this time patient is maintained on normal saline at 75 mL an hour At this time patient is admitted to medical floor 1 unit of red blood cell was ordered Consultation for hematology to assess anemia and need for anticoagulation was requested Consultation for gynecology to assess irregular vaginal bleeding Plans for EGD and colonoscopy today 10/05/2020 3 days of IV iron ordered Will follow closely
[2020-10-05] MEDS: ACETAMINOPHEN TAB 325 MG TAB PO PRN (13:46)
[2020-10-05] MEDS ORDERED: PEG 3350-NA SULF,BICARB,CL/KCL 4,000 ML BOTTLE PO ONE (14:39)
--- NOTE | 2020-10-05 14:39 | P.PN ---
Subjective Progress Note Date: 10/05/20 CHIEF COMPLAINT: Anemia HISTORY OF PRESENT ILLNESS: Patient scheduled for EGD and colonoscopy for further evaluation of her anemia again today. Patient did not complete the citrate mag. Her stools are still not clear. And she has not had a bowel movement today. Patient reports no blood in her stools. Patient denies any abdominal pain. Denies any nausea or vomiting. She is receiving IV iron for h er anemia. Afebrile. WBC 6.2 hemoglobin 8.1 platelets 205 creatinine 2.09 PHYSICAL EXAM: VITAL SIGNS: Reviewed. GENERAL: Well-developed in no acute distress. HEENT: No sclera icterus. Extraocular movements grossly intact. Moist buccal mucosa. Head is atraumatic, normocephalic. ABDOMEN: Soft. Obese. Nondistended. NEUROLOGIC: Alert and oriented. Cranial nerves II through XII grossly intact. ASSESSMENT: 1. Anemia with iron deficiency 2. Vaginal bleeding seen by ORACLE FUSION MIDDLEWARE ARCHITECT service PLAN: -Patient rescheduled again for EGD and colonoscopy for tomorrow 10/06/2020 due to poor bowel prep -Start clear liquid diet -Nothing by mouth after midnight -Give an additional 2 L of [employer] Physician Internet Sales Manager note has been reviewed by physician. Signing provider agrees with the documented findings, assessment, and plan of care. Objective - Vital Signs Vital signs: Vital Signs Temp 98.1 F 10/05/20 06:51 Pulse 90 10/05/20 06:51 Resp 16 10/05/20 12:17 BP 138/71 10/05/20 06:51 Pulse Ox 98 10/05/20 09:39 Intake & Output 10/04/20 10/05/20 10/05/20 18:59 06:59 18:59 Weight 108.5 kg Other: Voiding Method Diaper Diaper Diaper Incontinent Incontinent # Voids 7 4 # Bowel Movements 7 3 - Labs CBC & Chem 7: 10/05/20 05:46 10/05/20 05:46 Labs: Abnormal Lab Results - Last 24 Hours (Table) 10/04/20 10/04/20 10/05/20 Range/Units 16:48 20:44 05:46 RBC 2.85 L (3.80-5.40) m/uL Hgb 8.1 L (11.4-16.0) gm/dL Hct 25.6 L (34.0-46.0) % RDW 17.5 H (11.5-15.5) % BUN (7-17) mg/dL Creatinine (0.52-1.04) mg/dL Glucose (74-99) mg/dL POC Glucose (mg/dL) 168 H 157 H (75-99) mg/dL 10/05/20 10/05/20 10/05/20 Range/Units 05:46 06:37 11:32 RBC (3.80-5.40) m/uL Hgb (11.4-16.0) gm/dL Hct (34.0-46.0) % RDW (11.5-15.5) % BUN 24 H (7-17) mg/dL Creatinine 2.09 H (0.52-1.04) mg/dL Glucose 114 H (74-99) mg/dL POC Glucose (mg/dL) 124 H 153 H (75-99) mg/dL
[2020-10-05] MEDS: LACTATED RINGERS 1,000 ML IV SCH (15:31)
[2020-10-05 16:47] LABS: Glucose,Whole Blood 160 mg/dL (75-99)
[2020-10-05] MEDS: ATORVASTATIN 20 MG TAB PO SCH (19:50)
[2020-10-05] MEDS: LEVOTHYROXINE 25 MCG TAB PO SCH (19:50)
[2020-10-05] MEDS: MELATONIN 5 MG TABLET PO SCH (19:50)
[2020-10-05] MEDS: BACLOFEN 10 MG TAB PO SCH (19:50)
[2020-10-05] MEDS: clonazePAM 0.5 MG TAB PO SCH (19:51)
[2020-10-05] MEDS: SENNOSIDES-DOCUSATE SODIUM 1 EACH TAB PO SCH (19:52)
[2020-10-05 19:53] LABS: Glucose,Whole Blood 208 mg/dL (75-99)
[2020-10-05] MEDS: INSULIN DETEMIR (LEVEMIR) 100 UNIT/ML SYR SQ SCH (19:56)
[2020-10-06] MEDS: traMADol 50 MG TAB PO SCH ×3 (05:00→22:27)
[2020-10-06 06:18] LABS: Anisocytosis Slight; HCT 25.5 % (34.0-46.0); Hypochromasia Marked; MCH 28.3 pg (25.0-35.0); MCHC 31.5 g/dL (31.0-37.0); MCV 89.9 fL (80.0-100.0); Mean Platelet Volume 8.1; Platelet Count 213 k/uL (150-450); Poikilocytosis Marked; RBC 2.84 m/uL (3.80-5.40); RDW 18.1 % (11.5-15.5); WBC 5.6 k/uL (3.8-10.6)
[2020-10-06 06:26] LABS: African American GFR (CKD) 35 (>60 ml/min/1.73 sqM); Anion Gap 7 mmol/L; Blood Urea Nitrogen 20 mg/dL (7-17); Calcium 8.7 mg/dL (8.4-10.2); Carbon Dioxide 27 mmol/L (22-30); Chloride 105 mmol/L (98-107); Glucose 103 mg/dL (74-99); Non-African American GFR(CKD) 30 (>60 ml/min/1.73 sqM); Potassium 3.7 mmol/L (3.5-5.1); Sodium 139 mmol/L (137-145)
--- NOTE | 2020-10-06 06:36 | P.PN ---
Subjective Progress Note Date: 10/04/20 Radha Christensen, is a 35-year-old female with multiple medical problems who [facility], patient was noticed to have a hemoglobin of 6.5, she was sent to emergency room for further evaluation and treatment Patient has a known history of anemia, she had a known history of irregular v aginal bleeding contributing to her anemia, patient also has a known history of DVT, CVA and myocardial infarction, she is maintained on Eliquis 5 mg by mouth twice a day at the senior living. Patient was evaluated in the emergency room her vital exam revealed a temperature of 98.5 pulse 90 respirations 16 blood pressure 138/80 pulse ox 100% on room air laboratory data revealed a white blood count of 6.1 hemoglobin 6.6 platelet count 181 sodium 133 potassium 4.1 BUN 25 creatinine 2.04 glucose 229 patient was admitted to medical floor 1 unit of red blood cell transfusion was ordered. Eliquis was held consultation for hematology and gynecology were initiated. On review of systems patient is alert and oriented x 3 in no distress, she denies any complaints there is no fever or chills no headache or dizziness no chest pain no shortness of breath no palpitation no cough no nausea or vomiting no abdominal pain no diarrhea no blood in the stools no burning with urination no frequency or urgency and no hematuria, there is no weakness or numbness in any of the extremities no change in vision speech . On 09/30/2020 patient's alert and oriented 3. Hemoglobin 8.3. No further episodes of bleeding. Patient denies any blood in stool. Patient was evaluated by INVENTORY MANAGEMENT SPECIALIST. Per INVENTORY MANAGEMENT SPECIALIST history consistent with diagnosis of polycystic ovarian syndrome and patient may be a candidate for progesterone only product to aid in menstrual cycles. Awaiting hematology input regards to eliquis. This time patient denies chest pain or shortness of breath. Patient denies any urinary burning or frequency. Patient denies any urinary burning or frequency On 10/01/2020 Patient was seen and examined on the medical floor, he is alert and oriented x 3 in no distress, he denies any complaints there is no fever or chills no headache or dizziness no chest pain no shortness of breath no palpitation no cough no nausea or vomiting no abdominal pain no diarrhea no blood in the stools no burning with urination no frequency or urgency and no hematuria, there is no weakness or numbness in any of the extremities no change in vision speech or gait. At this time we are still awaiting further recommendation from hematology in regard to anemia, also we are waiting for recommendation in regard to anticoagulation. On 10/02/2020 patient's alert and oriented 3. Hemoglobin 9.0. Repeat venous Doppler completed per hematology ordered uric awaiting hematology recommendation in regards to anticoagulation. At this time patient denies chest pain or shortness of breath. Patient denies nausea vomiting or diarrhea. Patient denies any urinary burning or frequency. On 10/03/2020 patient was seen and examined on the medical floor she is alert and oriented 3 in no apparent distress she is complaining of generalized weakness otherwise she denies any complaints she is having some vaginal bleeding recommendation by hematology is to proceed with EGD and colonoscopy which is scheduled for tomorrow. Kidney function has worsened significantly since admission creatinine on presentation was 2.04 it went up to 2.41 yesterday she was started on IV fluid normal saline at 75 mL/h On 10/04/2020 patient was seen and examined on the medical floor she is alert and oriented 3 in no apparent distress she is complaining of generalized weakness otherwise she denies any complaints she is having some vaginal blee ding. EGD and colonoscopy rescheduled for tomorrow due to poor prep. Objective - Vital Signs Vital signs: Vital Signs Temp 98 F 10/04/20 14:00 Pulse 98 10/04/20 14:00 Resp 18 10/04/20 14:00 BP 119/72 10/04/20 14:00 Pulse Ox 96 10/04/20 14:00 Intake & Output 10/03/20 10/04/20 10/04/20 18:59 06:59 18:59 Output Total 1050 Balance -1050 Weight 126 kg Output: Urine 1050 Other: Voiding Method External Catheter Diaper Diaper # Voids 3 # Bowel Movements 2 1 - Exam In general patient is alert and oriented x 3 in no distress HEENT head normocephalic and atraumatic Neck is supple no JVD no goiter no lymphadenopathy no carotid bruit Chest examination is clear to auscultation no crackles no wheezing Cardiac exam reveals regular heart sounds S1 and S2 no gallops no murmurs Abdomen is soft nontender no organomegaly with normal bowel sounds Extremity exam reveals no edema no cyanosis or clubbing Neurological examination reveals no gross focal deficits - Labs CBC & Chem 7: 10/06/20 05:42 10/06/20 05:42 Labs: Abnormal Lab Results - Last 24 Hours (Table) 10/03/20 10/04/20 10/04/20 Range/Units 20:50 06:51 07:07 RBC 2.85 L (3.80-5.40) m/uL Hgb 8.0 L (11.4-16.0) gm/dL Hct 25.5 L (34.0-46.0) % RDW 16.7 H (11.5-15.5) % BUN (7-17) mg/dL Creatinine (0.52-1.04) mg/dL Glucose (74-99) mg/dL POC Glucose (mg/dL) 181 H 122 H (75-99) mg/dL Calcium (8.4-10.2) mg/dL 10/04/20 10/04/20 10/04/20 Range/Units 07:07 11:03 16:48 RBC (3.80-5.40) m/uL Hgb (11.4-16.0) gm/dL Hct (34.0-46.0) % RDW (11.5-15.5) % BUN 29 H (7-17) mg/dL Creatinine 2.07 H (0.52-1.04) mg/dL Glucose 122 H (74-99) mg/dL POC Glucose (mg/dL) 149 H 168 H (75-99) mg/dL Calcium 8.3 L (8.4-10.2) mg/dL Assessment and Plan Plan: Severe anemia at this time will give 1 unit of red blood cell transfusion Irregular vaginal bleeding gynecology consultation was requested. Per INVENTORY MANAGEMENT SPECIALIST history consistent with diagnosis of polycystic ovarian syndrome and patient may be a candidate for progesterone only product to aid in menstrual cycles. Underlying history of of DVT Underlying history of CVA and myocardial infarction History of diabetes mellitus type 2 History of hypothyroidism Essential hypertension History of anxiety History of hyperlipidemia Acute kidney injury on top of chronic kidney disease stage III at this time patient is maintained on normal saline at 75 mL an hour At this time patient is admitted to medical floor 1 unit of red blood cell was ordered Consultation for hematology to assess anemia and need for anticoagulation was requested Consultation for gynecology to assess irregular vaginal bleeding Will follow closely
[2020-10-06 06:45] LABS: Glucose,Whole Blood 119 mg/dL (75-99)
[2020-10-06] MEDS: SODIUM BICARBONATE TAB 650 MG TAB PO SCH ×2 (07:43→16:01)
[2020-10-06] MEDS: FLUoxetine HCL 20 MG CAP PO SCH (07:43)
[2020-10-06] MEDS: HYDROcodone/APAP 7.5-325MG 1 EACH TAB PO PRN ×2 (07:43→20:11)
[2020-10-06] MEDS: amLODIPine 5 MG TAB PO SCH (07:43)
[2020-10-06] MEDS: carvediloL 3.125 MG TAB PO SCH ×2 (07:45→16:01)
[2020-10-06] MEDS: MULTIVITAMINS, THERA 1 EACH TAB PO SCH (07:46)
[2020-10-06] MEDS: FUROSEMIDE 20 MG TAB PO SCH (07:46)
[2020-10-06] MEDS: SODIUM FERRIC GLUCONAT-SUCROSE 125 MG in SODIUM CHLORIDE 0.9% 100 ML IVPB SCH (09:13)
[2020-10-06] MEDS: INSULIN ASPART (NovoLOG) 100 UNIT/ML VIAL SQ SCH ×4 (10:43→20:11)
[2020-10-06 11:37] LABS: Glucose,Whole Blood 150 mg/dL (75-99)
[2020-10-06] MEDS ORDERED: LIDOCAINE 1% INJ 10MG/ML (20 ML MDV) ONE (12:41)
[2020-10-06] MEDS ORDERED: PROPOFOL 10 MG/ML 20 ML VIAL IV ONE (12:41)
[2020-10-06] MEDS ORDERED: IV FLUID CONTINUATION 300 ML IV ONE (12:47)
--- NOTE | 2020-10-06 13:04 | P.OP ---
Date of Procedure: 10/06/20 Preoperative Diagnosis: Anemia Postoperative Diagnosis: Antral gastritis Procedure(s) Performed: EGD Colonoscopy Anesthesia: MAC Surgeon: Allen Davenport Pathology: other (Antrum) Condition: stable Disposition: PACU Description of Procedure: The patient's placed on the endoscopy table in the lateral position. She received IV sedation. The gastric oropharynx passed in the esophagus into the stomach. Scope was then placed through the pylorus. The first and second portion duodenum appeared normal. Scope was then brought back the antrum this. Mildly inflamed. A biopsies performed. Scope was unretroflexed and remainder stomach appeared normal. There is known 70 blood in the upper GI tract. The GE junction was at 40 cm the distal esophagus appeared normal. The proximal esophagus appeared normal. Scope was withdrawn for patient. Next digital rectal exam was performed there was a large amount liquid stool in the rectum. The flexible colonoscope was then placed patient anus passed with colon. Scope was passed beyond the distal transverse colon. This was withdrawn. Descending and sigmoid colon appeared normal however the mucosa was covered in liquid stool was hard to see any lesions. Scope back the rectum this appeared normal. Scope was brought patient. There is known to any blood in the lower GI tract. It is unclear where source of patient's anemia is. There does not appear to be any evidence of GI bleed.
[2020-10-06 14:48] VITALS: BMI 46.1
[2020-10-06 16:34] LABS: Glucose,Whole Blood 240 mg/dL (75-99)
--- NOTE | 2020-10-06 18:20 | P.PN ---
Subjective Progress Note Date: 10/06/20 Radha Christensen, is a 35-year-old female with multiple medical problems who currently resides at the intermediate, patient was noticed to have a hemoglobin of 6.5, she was sent to emergency room for further evaluation and treatment Patient has a known history of anemia, she had a known history of irregular v aginal bleeding contributing to her anemia, patient also has a known history of DVT, CVA and myocardial infarction, she is maintained on Eliquis 5 mg by mouth twice a day at the intermediate. Patient was evaluated in the emergency room her vital exam revealed a temperature of 98.5 pulse 90 respirations 16 blood pressure 138/80 pulse ox 100% on room air laboratory data revealed a white blood count of 6.1 hemoglobin 6.6 platelet count 181 sodium 133 potassium 4.1 BUN 25 creatinine 2.04 glucose 229 patient was admitted to medical floor 1 unit of red blood cell transfusion was ordered. Eliquis was held consultation for hematology and gynecology were initiated. On review of systems patient is alert and oriented x 3 in no distress, she denies any complaints there is no fever or chills no headache or dizziness no chest pain no shortness of breath no palpitation no cough no nausea or vomiting no abdominal pain no diarrhea no blood in the stools no burning with urination no frequency or urgency and no hematuria, there is no weakness or numbness in any of the extremities no change in vision speech . On 09/30/2020 patient's alert and oriented 3. Hemoglobin 8.3. No further episodes of bleeding. Patient denies any blood in stool. Patient was evaluated by [employer]. Per [employer] history consistent with diagnosis of polycystic ovarian syndrome and patient may be a candidate for progesterone only product to aid in menstrual cycles. Awaiting hematology input regards to eliquis. This time patient denies chest pain or shortness of breath. Patient denies any urinary burning or frequency. Patient denies any urinary burning or frequency On 10/01/2020 Patient was seen and examined on the medical floor, he is alert and oriented x 3 in no distress, he denies any complaints there is no fever or chills no headache or dizziness no chest pain no shortness of breath no palpitation no cough no nausea or vomiting no abdominal pain no diarrhea no blood in the stools no burning with urination no frequency or urgency and no hematuria, there is no weakness or numbness in any of the extremities no change in vision speech or gait. At this time we are still awaiting further recommendation from hematology in regard to anemia, also we are waiting for recommendation in regard to anticoagulation. On 10/02/2020 patient's alert and oriented 3. Hemoglobin 9.0. Repeat venous Doppler completed per hematology ordered uric awaiting hematology recommendation in regards to anticoagulation. At this time patient denies chest pain or shortness of breath. Patient denies nausea vomiting or diarrhea. Patient denies any urinary burning or frequency. On 10/03/2020 patient was seen and examined on the medical floor she is alert and oriented 3 in no apparent distress she is complaining of generalized weakness otherwise she denies any complaints she is having some vaginal bleeding recommendation by hematology is to proceed with EGD and colonoscopy which is scheduled for tomorrow. Kidney function has worsened significantly since admission creatinine on presentation was 2.04 it went up to 2.41 yesterday she was started on IV fluid normal saline at 75 mL/h On 10/04/2020 patient was seen and examined on the medical floor she is alert and oriented 3 in no apparent distress she is complaining of generalized weakness otherwise she denies any complaints she is having some vaginal blee ding. EGD and colonoscopy rescheduled for tomorrow due to poor prep. On 10/05/2020 patient's alert and oriented 3. Plans for EGD and colonoscopy today. Creatinine improving to 2.09 bun 24. Hemoglobin 8.1. 3 days of IV iron has been ordered. At this time patient denies chest pain or shortness breath. Denies nausea vomiting or diarrhea. Patient denies any urinary burning or frequency On 10/06/2020 patient was seen and examined on the medical floor she is scheduled for EGD today, her hemoglobin this morning is 8.0 will continue to monitor Objective - Vital Signs Vital signs: Vital Signs Temp 98.3 F 10/06/20 00:43 Pulse 89 10/06/20 00:43 Resp 18 10/06/20 00:43 BP 112/77 10/06/20 00:43 Pulse Ox 97 10/06/20 00:43 Intake & Output 10/05/20 10/05/20 10/06/20 06:59 18:59 06:59 Weight 108.5 kg 122 kg Other: Voiding Method Diaper Diaper Diaper Incontinent Incontinent Incontinent # Voids 4 2 2 # Bowel Movements 3 1 - Exam In general patient is alert and oriented x 3 in no distress HEENT head normocephalic and atraumatic Neck is supple no JVD no goiter no lymphadenopathy no carotid bruit Chest examination is clear to auscultation no crackles no wheezing Cardiac exam reveals regular heart sounds S1 and S2 no gallops no murmurs Abdomen is soft nontender no organomegaly with normal bowel sounds Extremity exam reveals no edema no cyanosis or clubbing Neurological examination reveals no gross focal deficits - Labs CBC & Chem 7: 10/06/20 05:42 10/06/20 05:42 Labs: Abnormal Lab Results - Last 24 Hours (Table) 10/05/20 10/05/20 10/05/20 Range/Units 11:32 16:44 19:50 RBC (3.80-5.40) m/uL Hgb (11.4-16.0) gm/dL Hct (34.0-46.0) % RDW (11.5-15.5) % BUN (7-17) mg/dL Creatinine (0.52-1.04) mg/dL Glucose (74-99) mg/dL POC Glucose (mg/dL) 153 H 160 H 208 H (75-99) mg/dL 10/06/20 10/06/20 10/06/20 Range/Units 05:42 05:42 06:43 RBC 2.84 L (3.80-5.40) m/uL Hgb 8.0 L (11.4-16.0) gm/dL Hct 25.5 L (34.0-46.0) % RDW 18.1 H (11.5-15.5) % BUN 20 H (7-17) mg/dL Creatinine 2.09 H (0.52-1.04) mg/dL Glucose 103 H (74-99) mg/dL POC Glucose (mg/dL) 119 H (75-99) mg/dL Assessment and Plan Plan: Severe anemia at this time will give 1 unit of red blood cell transfusion Irregular vaginal bleeding gynecology consultation was requested. Per [employer] history consistent with diagnosis of polycystic ovarian syndrome and patient may be a candidate for progesterone only product to aid in menstrual cycles. Underlying history of of DVT Underlying history of CVA and myocardial infarction History of diabetes mellitus type 2 History of hypothyroidism Essential hypertension History of anxiety History of hyperlipidemia Acute kidney injury on top of chronic kidney disease stage III at this time patient is maintained on normal saline at 75 mL an hour At this time patient is admitted to medical floor 1 unit of red blood cell was ordered Consultation for hematology to assess anemia and need for anticoagulation was requested Consultation for gynecology to assess irregular vaginal bleeding Will follow closely
[2020-10-06] MEDS: LACTATED RINGERS 1,000 ML IV SCH (18:32)
[2020-10-06 19:56] LABS: Glucose,Whole Blood 191 mg/dL (75-99)
[2020-10-06] MEDS: SENNOSIDES-DOCUSATE SODIUM 1 EACH TAB PO SCH (20:08)
[2020-10-06] MEDS: clonazePAM 0.5 MG TAB PO SCH (20:11)
[2020-10-06] MEDS: INSULIN DETEMIR (LEVEMIR) 100 UNIT/ML SYR SQ SCH (20:11)
[2020-10-06] MEDS: BACLOFEN 10 MG TAB PO SCH (20:11)
[2020-10-06] MEDS: ATORVASTATIN 20 MG TAB PO SCH (20:11)
[2020-10-06] MEDS: MELATONIN 5 MG TABLET PO SCH (20:11)
[2020-10-06] MEDS: LEVOTHYROXINE 25 MCG TAB PO SCH (20:11)
[2020-10-07] MEDS: ACETAMINOPHEN TAB 325 MG TAB PO PRN (01:27)
[2020-10-07] MEDS: traMADol 50 MG TAB PO SCH ×2 (04:56→12:36)
[2020-10-07 07:10] LABS: Glucose,Whole Blood 236 mg/dL (75-99)
[2020-10-07] MEDS: amLODIPine 5 MG TAB PO SCH (08:07)
[2020-10-07] MEDS: HYDROcodone/APAP 7.5-325MG 1 EACH TAB PO PRN (08:07)
[2020-10-07] MEDS: carvediloL 3.125 MG TAB PO SCH (08:07)
[2020-10-07] MEDS: MULTIVITAMINS, THERA 1 EACH TAB PO SCH (08:08)
[2020-10-07] MEDS: SODIUM BICARBONATE TAB 650 MG TAB PO SCH (08:08)
[2020-10-07] MEDS: FUROSEMIDE 20 MG TAB PO SCH (08:08)
[2020-10-07] MEDS: INSULIN ASPART (NovoLOG) 100 UNIT/ML VIAL SQ SCH ×2 (08:08→12:36)
[2020-10-07] MEDS: FLUoxetine HCL 20 MG CAP PO SCH (08:08)
[2020-10-07 08:26] VITALS: RESP 16
[2020-10-07 09:32] LABS: Anisocytosis Slight; Basophils % (A) 0 %; Eosinophils # (A) 0.1 k/uL (0-0.7); Eosinophils % (A) 2 %; HCT 25.5 % (34.0-46.0); HGB 7.7 gm/dL (11.4-16.0); Hypochromasia Marked; Lymphocytes # (A) 0.8 k/uL (1.0-4.8); Lymphocytes % (A) 17 %; MCH 28.5 pg (25.0-35.0); MCHC 30.4 g/dL (31.0-37.0); MCV 93.8 fL (80.0-100.0); Macrocytosis Slight; Mean Platelet Volume 8.4; Monocytes # (A) 0.3 k/uL (0-1.0); Monocytes % (A) 6 %; Neutrophils # (A) 3.7 k/uL (1.3-7.7); Neutrophils % (A) 73 %; Platelet Count 185 k/uL (150-450); Poikilocytosis Moderate; RBC 2.71 m/uL (3.80-5.40); RDW 18.4 % (11.5-15.5)
[2020-10-07 09:41] LABS: ALT 9 U/L (4-34); AST 18 U/L (14-36); African American GFR (CKD) 31 (>60 ml/min/1.73 sqM); Albumin 2.8 g/dL (3.5-5.0); Albumin/Globulin Ratio 1.2; Alkaline Phosphatase 84 U/L (38-126); Anion Gap 6 mmol/L; Blood Urea Nitrogen 24 mg/dL (7-17); Calcium 8.2 mg/dL (8.4-10.2); Carbon Dioxide 27 mmol/L (22-30); Chloride 104 mmol/L (98-107); Globulin 2.4 g/dL; Glucose 278 mg/dL (74-99); Non-African American GFR(CKD) 27 (>60 ml/min/1.73 sqM); Potassium 3.9 mmol/L (3.5-5.1); Sodium 137 mmol/L (137-145); Total Bilirubin <0.1 mg/dL (0.2-1.3); Total Protein 5.2 g/dL (6.3-8.2)
[2020-10-07] MEDS: SODIUM FERRIC GLUCONAT-SUCROSE 125 MG in SODIUM CHLORIDE 0.9% 100 ML IVPB SCH (10:09)
--- NOTE | 2020-10-07 10:38 | P.DS ---
Providers Date of admission: 10/03/20 11:53 Expected date of discharge: 10/07/20 Attending physician: Roberto Knight Consults: 09/29/20 10:33 Consult Physician Routine Consulting Provider: Atif Fowler Consult Reason/Comments: anemia Do you want consulting provider notified?: Yes Consult Physician Routine Consulting Provider: Regla Merrill Consult Reason/Comments: vaginal bleeding Do you want consulting provider notified?: Yes 10/02/20 13:42 Consult Physician Routine Consulting Provider: Evert Velazquez Consult Reason/Comments: Needs endoscopic w/u for iron def anemia Do you want consulting provider notified?: Yes 10/03/20 10:07 Consult Physician Routine Consulting Provider: Evert Velazquez Consult Reason/Comments: EGD, per hematology recomendation Do you want consulting provider notified?: Yes 10/07/20 09:58 Consult Physician Routine Consulting Provider: Melony Overton Consult Reason/Comments: anemia and Chronic renal disease Do you want consulting provider notified?: Yes Primary care physician: Roberto Knight [facility] Course: Discharge diagnosis Severe anemia at this time will give 1 unit of red blood cell transfusion Irregular vaginal bleeding gynecology consultation was requested. Per COMMUNITY AIDE history consistent with diagnosis of polycystic ovarian syndrome and patient may be a candidate for progesterone only product to aid in menstrual cycles. Underlying history of of DVT Underlying history of CVA and myocardial infarction History of diabetes mellitus type 2 History of hypothyroidism Essential hypertension History of anxiety History of hyperlipidemia Acute kidney injury on top of chronic kidney disease stage III at this time patient is maintained on normal saline at 75 mL an hour Hospital course elizabeth Christensen, is a 35-year-old female with multiple medical problems who currently resides at the halfway, patient was noticed to have a hemoglobin of 6.5, she was sent to emergency room for further evaluation and treatment Patient has a known history of anemia, she had a known history of irregular vaginal bleeding contributing to her anemia, patient also has a known history of DVT, CVA and myocardial infarction, she is maintained on Eliquis 5 mg by mouth twice a day at the halfway. Patient was evaluated in the emergency room her vital exam revealed a temperature of 98.5 pulse 90 respirations 16 blood pressure 138/80 pulse ox 100% on room air laboratory data revealed a white blood count of 6.1 hemoglobin 6.6 platelet count 181 sodium 133 potassium 4.1 BUN 25 creatinine 2.04 glucose 229 patient was admitted to medical floor 1 unit of red blood cell transfusion was ordered. Eliquis was held consultation for hematology and gynecology were initiated. On review of systems patient is alert and oriented x 3 in no distress, she denies any complaints there is no fever or chills no headache or dizziness no chest pain no shortness of breath no palpitation no cough no nausea or vomiting no abdominal pain no diarrhea no blood in the stools no burning with urination no frequency or urgency and no hematuria, there is no weakness or numbness in any of the extremities no change in vision speech . On 09/30/2020 patient's alert and oriented 3. Hemoglobin 8.3. No further episodes of bleeding. Patient denies any blood in stool. Patient was evaluated by COMMUNITY AIDE. Per COMMUNITY AIDE history consistent with diagnosis of polycystic ovarian syndrome and patient may be a candidate for progesterone only product to aid in menstrual cycles. Awaiting hematology input regards to eliquis. This time patient denies chest pain or shortness of breath. Patient denies any urinary burning or frequency. Patient denies any urinary burning or frequency On 10/01/2020 Patient was seen and examined on the medical floor, he is alert and oriented x 3 in no distress, he denies any complaints there is no fever or chills no headache or dizziness no chest pain no shortness of breath no palpitation no cough no nausea or vomiting no abdominal pain no diarrhea no blood in the stools no burning with urination no frequency or urgency and no hematuria, there is no weakness or numbness in any of the extremities no change in vision speech or gait. At this time we are still awaiting further recommendation from hematology in regard to anemia, also we are waiting for recommendation in regard to anticoagulation. On 10/02/2020 patient's alert and oriented 3. Hemoglobin 9.0. Repeat venous Doppler completed per hematology ordered uric awaiting hematology recommendation in regards to anticoagulation. At this time patient denies chest pain or shortness of breath. Patient denies nausea vomiting or diarrhea. Patient denies any urinary burning or frequency. On 10/03/2020 patient was seen and examined on the medical floor she is alert and oriented 3 in no apparent distress she is complaining of generalized weakness otherwise she denies any complaints she is having some vaginal bleeding recommendation by hematology is to proceed with EGD and colonoscopy which is scheduled for tomorrow. Kidney function has worsened significantly since admission creatinine on presentation was 2.04 it went up to 2.41 yesterday she was started on IV fluid normal saline at 75 mL/h On 10/04/2020 patient was seen and examined on the medical floor she is alert and oriented 3 in no apparent distress she is complaining of generalized weakness otherwise she denies any complaints she is having some vaginal bleeding. EGD and colonoscopy rescheduled for tomorrow due to poor prep. On 10/05/2020 patient's alert and oriented 3. Plans for EGD and colonoscopy today. Creatinine improving to 2.09 bun 24. Hemoglobin 8.1. 3 days of IV iron has been ordered. At this time patient denies chest pain or shortness breath. Denies nausea vomiting or diarrhea. Patient denies any urinary burning or frequency On 10/06/2020 patient was seen and examined on the medical floor she is scheduled for EGD today, her hemoglobin this morning is 8.0 will continue to monitor On 10/07/2020 patient's alert and oriented 3. Patient underwent EGD yesterday with findings of no signs of GI bleed. Patient was supposed to also have colonoscopy but patient refused colonoscopy prep so only EGD could be performed. Patient was evaluated by COMMUNITY AIDE and recommendations were made for patient to be started on progesterone only control to help with irregular periods. Patient will be discharged on minipill Genevieve which is a progesterone only control this was discussed with pharmacy in regards to dosing. Patient will need close follow-up with COMMUNITY AIDE services for further plan of care in regards to irregular periods and requirement of anticoagulation history of clots. Patient was evaluated by oncology services in regards to necessity of anticoagulation and was stated by oncology services the recommendation is to continue anticoagulation due to history of DVT and increase risk of developing clots due to immobility. Patient will need close follow-up with oncology services in regards to further evaluation of anticoagulation. Hemoglobin today 7.7. Patient will receive 1 dose of Procrit prior to discharge along with final dose of IV iron. Per nursing staff patient has had no further episodes of vaginal bleeding. So at this time patient will be DC'd on progesterone only control along with restarting eliquis per COMMUNITY AIDE and oncology services recommendation. Again patient will need close follow-up with these consults outpatient and this was discussed with patient. Patient Condition at Discharge: Stable Plan - Discharge Summary Discharge Rx Participant: No New Discharge Prescriptions: New Norethindrone [Chani] 0.35 mg PO DAILY 30 Days #30 tablet Darbepoetin Kurtis [Aranesp] 12.5 mcg SQ Q7D each Continue Melatonin 5 mg PO HS@1999 FLUoxetine HCL [PROzac] 20 mg PO DAILY@0800 Multivitamins, Thera [Multivitamin (formulary)] 1 tab PO DAILY@0800 Levothyroxine Sodium [Synthroid] 25 mcg PO HS@1999 Ergocalciferol (Vitamin D2) [Drisdol (50,000 Iu)] 50,000 unit PO QMONTHLY Acetaminophen Tab [Tylenol] 650 mg PO Q6H PRN PRN Reason: Pain Sennosides/Docusate Sodium [Senna Plus 8.6-50 mg Softgel] 2 tab PO HS@1999 Carvedilol [Coreg] 3.125 mg PO BID@0800,1600 Insulin Glargine,Hum.rec.anlog [Lantus Solostar Pen] 14 unit SQ HS@1999 HYDROcodone/APAP 7.5-325MG [[place] 7.5-325] 1 tab PO Q12HR PRN 3 Days #6 tab PRN Reason: Pain traMADol HCl [Ultram] 50 mg PO TID@0500,1300,2100 3 Days #9 tab Furosemide [Lasix] 20 mg PO DAILY@0800 clonazePAM [KlonoPIN] 0.5 mg PO HS@1999 Apixaban [Eliquis] 5 mg PO BID@0800,1600 Sodium Bicarbonate Tab 650 mg PO BID@0800,1600 Insulin Aspart [NovoLOG] See Protocol SQ ACHS@07,11,16,20 amLODIPine [Norvasc] 5 mg PO DAILY@0800 Baclofen 10 mg PO HS@1999 Atorvastatin [Lipitor] 20 mg PO HS@1999 Discharge Medication List Ergocalciferol (Vitamin D2) [Drisdol (50,000 Iu)] 50,000 unit PO QMONTHLY 02/15/18 [History] FLUoxetine HCL [PROzac] 20 mg PO DAILY@0800 02/15/18 [History] Levothyroxine Sodium [Synthroid] 25 mcg PO HS@199902/15/18 [History] Melatonin 5 mg PO HS@199902/15/18 [History] Multivitamins, Thera [Multivitamin (formulary)] 1 tab PO DAILY@0800 02/15/18 [History] Acetaminophen Tab [Tylenol] 650 mg PO Q6H PRN 09/03/18 [History] Baclofen 10 mg PO HS@199907/25/20 [History] Carvedilol [Coreg] 3.125 mg PO BID@0800,1600 07/25/20 [History] Insulin Aspart [NovoLOG] See Protocol SQ ACHS@07,11,16,20 07/25/20 [History] Insulin Glargine,Hum.rec.anlog [Lantus Solostar Pen] 14 unit SQ HS@199907/25/20 [History] Sennosides/Docusate Sodium [Senna Plus 8.6-50 mg Softgel] 2 tab PO HS@199907/25/20 [History] amLODIPine [Norvasc] 5 mg PO DAILY@0800 07/25/20 [History] HYDROcodone/APAP 7.5-325MG [[place] 7.5-325] 1 tab PO Q12HR PRN 3 Days #6 tab 07/29/20 [Rx] traMADol HCl [Ultram] 50 mg PO TID@0500,1300,2100 3 Days #9 tab 07/29/20 [Rx] Apixaban [Eliquis] 5 mg PO BID@0800,1600 09/29/20 [History] Atorvastatin [Lipitor] 20 mg PO HS@199909/29/20 [History] Furosemide [Lasix] 20 mg PO DAILY@0800 09/29/20 [History] Sodium Bicarbonate Tab 650 mg PO BID@0800,1600 09/29/20 [History] clonazePAM [KlonoPIN] 0.5 mg PO HS@199909/29/20 [History] Darbepoetin Kurtis [Aranesp] 12.5 mcg SQ Q7D each 10/07/20 [Rx] Norethindrone [Chani] 0.35 mg PO DAILY 30 Days #30 tablet 10/07/20 [Rx] Follow up Appointment(s)/Referral(s): Asha Jolly, [NON-STAFF] - As Needed Roberto Knight MD [Primary Care Provider] - 1-2 days Atif Fowler MD [STAFF PHYSICIAN] - 2 Weeks Caleb Beal MD [STAFF PHYSICIAN] - 1 Week Activity/Diet/Wound Care/Special Instructions: Diabetic consistent carb Activity as tolerated Repeat CBC and CMP on monday 10/09 She to follow-up with COMMUNITY AIDE for progesterone only control and abnormal periods Patient to follow-up with hematology services for anticoagulation Discharge Disposition: TRANSFER TO SNF/ECF
--- NOTE | 2020-10-07 10:38 | P.NPCON ---
History of Present Illness - Reason for Consult acute renal failure, chronic renal failure - History of Present Illness Reason for consultation: Acute kidney injury on chronic kidney disease History of present illness: A sign patient is a 35-year-old female seen in renal consultation for acute kidney injury on chronic kidney disease. Patient has chronic kidney disease stage IIIB with baseline creatinine near 2 secondary to nonrecovered ATN and obstructive uropathy. Patient presented to the hospital from extended care facility with anemia. Hemoglobin was 6 and she did receive blood transfusion this admission. She underwent EGD and colonoscopy which revealed no active bleeding. Hemoglobin today was 7.7. She denies use of nonsteroidals. Has been voiding. Currently has hematuria as she is on her menstruation cycle. No chest pain or shortness of breath. No edema. Oral intake is good. No vomiting or diarrhea. She is unsure of family history. She does a history of diabetes. Vital signs are stable. General: The patient appeared well nourished and normally developed. HEENT: Head exam is unremarkable. Neck is without jugular venous distension. LUNGS: Breath sounds decreased. HEART: Rate and Rhythm are regular. ABDOMEN: Soft, obese. EXTREMITITES: No edema. Past Medical History Past Medical History: CVA/TIA, Deep Vein Thrombosis (DVT), Myocardial Infarction ([place]) Additional Past Medical History / Comment(s): morbid obesity, pancreatitis, history of coma - 10/24/14 - until end december after suffering from a stroke. Last Myocardial Infarction Date:: 10/2014 History of Any Multi-Drug Resistant Organisms: ESBL, Other MDRO Date of last positivie culture/infection: 07/16/20 ESBL E.coli MDRO Source:: Urine-ESBL Past Surgical History: Cholecystectomy Additional Past Surgical History / Comment(s): Cystoscopy with placement of left double-J catheter 02/16/2018, Gastric bypass 2016 Past Anesthesia/Blood Transfusion Reactions: No Reported Reaction Past Psychological History: Anxiety, Depression, Panic Disorder Smoking Status: Never smoker Past Alcohol Use History: None Reported Past Drug Use History: Marijuana - Past Family History Father History Unknown: Yes Family Medical History: Cancer Additional Family Medical History / Comment(s): lung Medications and Allergies Home Medications Medication Instructions Recorded Confirmed Type Ergocalciferol (Vitamin D2) 50,000 unit PO QMONTHLY 02/15/18 09/29/20 History [Drisdol (50,000 Iu)] FLUoxetine HCL [PROzac] 20 mg PO DAILY@0800 02/15/18 09/29/20 History Levothyroxine Sodium [Synthroid] 25 mcg PO HS@199902/15/18 09/29/20 History Melatonin 5 mg PO HS@199902/15/18 09/29/20 History Multivitamins, Thera [Multivitamin 1 tab PO DAILY@0800 02/15/18 09/29/20 History (formulary)] Acetaminophen Tab [Tylenol] 650 mg PO Q6H PRN 09/03/18 09/29/20 History Baclofen 10 mg PO HS@199907/25/20 09/29/20 History Carvedilol [Coreg] 3.125 mg PO BID@0800,1600 07/25/20 09/29/20 History Insulin Aspart [NovoLOG] See Protocol SQ ACHS@07,11,16,20 07/25/20 09/29/20 History Insulin Glargine,Hum.rec.anlog 14 unit SQ HS@199907/25/20 09/29/20 History [Lantus Solostar Pen] Sennosides/Docusate Sodium [Senna 2 tab PO HS@199907/25/20 09/29/20 History Plus 8.6-50 mg Softgel] amLODIPine [Norvasc] 5 mg PO DAILY@0800 07/25/20 09/29/20 History HYDROcodone/APAP 7.5-325MG [[place] 1 tab PO Q12HR PRN 3 Days #6 tab 07/29/20 09/29/20 Rx 7.5-325] traMADol HCl [Ultram] 50 mg PO TID@0500,1300,2100 3 Days 07/29/20 09/29/20 Rx #9 tab Apixaban [Eliquis] 5 mg PO BID@0800,1600 09/29/20 09/29/20 History Atorvastatin [Lipitor] 20 mg PO HS@199909/29/20 09/29/20 History Furosemide [Lasix] 20 mg PO DAILY@0800 09/29/20 09/29/20 History Sodium Bicarbonate Tab 650 mg PO BID@0800,1600 09/29/20 09/29/20 History clonazePAM [KlonoPIN] 0.5 mg PO HS@199909/29/20 09/29/20 History Darbepoetin Kurtis [Aranesp] 12.5 mcg SQ Q7D each 10/07/20 Rx Norethindrone [Chani] 0.35 mg PO DAILY 30 Days #30 tablet 10/07/20 Rx Allergies Allergy/AdvReac Type Severity Reaction Status Date / Time aspirin Allergy Rash/Hives Verified 09/29/20 07:34 sertraline HCl [From Zoloft] Allergy Unknown Verified 09/29/20 07:34 zolpidem tartrate Allergy Unknown Verified 09/29/20 07:34 [From Ambien] gabapentin [From Neurontin] AdvReac Severe SEVERE Verified 09/29/20 07:34 AGITATION ibuprofen [From Motrin] AdvReac AVOIDS D/T Verified 09/29/20 07:34 KIDNEY FUNCTION Physical Exam Vitals: Vital Signs Temp Pulse Resp BP Pulse Ox 10/07/20 08:00 97.6 F 94 16 140/80 100 10/07/20 04:00 98.3 F 92 18 133/75 100 10/06/20 19:18 98.3 F 89 17 96/63 100 10/06/20 13:58 98.6 F 97 18 132/84 90 L Intake and Output 10/06/20 10/07/20 10/07/20 22:59 06:59 14:59 Intake Total 236 Balance 236 Intake: Oral 236 Other: # Voids 2 3 # Bowel Movements 1 Weight 121.5 kg Results - Lab Results Most recent lab results Calcium 8.2 mg/dL (8.4-10.2) L 10/07/20 08:52 10/07/20 08:52 10/07/20 08:52 Assessment and Plan Plan: Assessment: 1. Acute kidney injury secondary to ATN secondary to anemia. Creatinine 2.3 today. Rule out obstruction. 2. Chronic kidney disease stage IIIB secondary to nonrecovered ATN and obstructive uropathy with baseline creatinine near 2. Also has component of diabetic kidney disease as has proteinuria. 3. Acute blood loss anemia status post blood transfusion and endoscopy with no active bleeding found. Receiving IV iron. Also on Aranesp. 4. Diabetes mellitus. 5. History of nephrolithiasis with left ureteral stent placement and removal in 2019. 6. Hypertension with chronic kidney disease. Plan: Check urinalysis and renal ultrasound. Check bladder scan to rule out urinary retention. Increase dose of Aranesp. Avoid nephrotoxins. Repeat labs in the morning. Thank you for the consultation. I will continue to follow the patient with you during her hospital stay.
[2020-10-07] MEDS ORDERED: DARBEPOETIN ALFA 40 MCG/0.4 ML SYRINGE SQ SCH (11:00)
[2020-10-07] MEDS ORDERED: DARBEPOETIN ALFA 25 MCG/0.42 ML SYRINGE SQ SCH (11:00)
--- NOTE | 2020-10-07 11:34 | P.PN ---
Subjective Progress Note Date: 10/07/20 CHIEF COMPLAINT: Anemia HISTORY OF PRESENT ILLNESS: Patient is status post EGD and colonoscopy. Results show antral gastritis. Patient had poor bowel prep. No evidence of any active bleeding. Patient denies abdominal pain. Still has some vaginal bleeding. Patient has received IV iron. WBC 5.0 hemoglobin 7.7 creatinine 2.30 PHYSICAL EXAM: VITAL SIGNS: Reviewed. GENERAL: Well-developed in no acute distress. HEENT: No sclera icterus. Extraocular movements grossly intact. Moist buccal mucosa. Head is atraumatic, normocephalic. ABDOMEN: Soft. Obese. Nondistended. NEUROLOGIC: Alert and oriented. Cranial nerves II through XII grossly intact. ASSESSMENT: 1. Anemia with iron deficiency no evidence of source of bleeding on EGD or colonoscopy. Colonoscopy did have poor bowel prep. 2. Vaginal bleeding seen by [employer] OPERATOR service PLAN: -Patient is stable from surgical standpoint for discharge when cleared medically Physician Ginning Operator note has been reviewed by physician. Signing provider agrees with the documented findings, assessment, and plan of care. Objective - Vital Signs Vital signs: Vital Signs Temp 97.6 F 10/07/20 08:00 Pulse 94 10/07/20 08:00 Resp 16 10/07/20 08:00 BP 140/80 10/07/20 08:00 Pulse Ox 100 10/07/20 08:00 Intake & Output 10/06/20 10/07/20 10/07/20 18:59 06:59 18:59 Intake Total 340 236 Balance 340 236 Weight 122 kg 121.5 kg Intake: Intake, IV Titration 340 Amount Lactated Ringers 1,000 ml 240 @ 20 mls/hr IV .Q24H WILDER Rx#:[id number] Sodium Ferric Gluconat- 100 Sucrose 125 mg In Sodium Chloride 0.9% 100 ml @ 100 mls/hr IVPB DAILY WILDER Rx#:[id number] Oral 236 Other: Voiding Method Diaper # Voids 2 3 # Bowel Movements 4 1 - Labs CBC & Chem 7: 10/07/20 08:52 10/07/20 08:52 Labs: Abnormal Lab Results - Last 24 Hours (Table) 10/06/20 10/06/20 10/06/20 Range/Units 11:36 16:32 19:55 RBC (3.80-5.40) m/uL Hgb (11.4-16.0) gm/dL Hct (34.0-46.0) % MCHC (31.0-37.0) g/dL RDW (11.5-15.5) % Lymphocytes # (1.0-4.8) k/uL BUN (7-17) mg/dL Creatinine (0.52-1.04) mg/dL Glucose (74-99) mg/dL POC Glucose (mg/dL) 150 H 240 H 191 H (75-99) mg/dL Calcium (8.4-10.2) mg/dL Total Bilirubin (0.2-1.3) mg/dL Total Protein (6.3-8.2) g/dL Albumin (3.5-5.0) g/dL 10/07/20 10/07/20 10/07/20 Range/Units 07:08 08:52 08:52 RBC 2.71 L (3.80-5.40) m/uL Hgb 7.7 L (11.4-16.0) gm/dL Hct 25.5 L (34.0-46.0) % MCHC 30.4 L (31.0-37.0) g/dL RDW 18.4 H (11.5-15.5) % Lymphocytes # 0.8 L (1.0-4.8) k/uL BUN 24 H (7-17) mg/dL Creatinine 2.30 H (0.52-1.04) mg/dL Glucose 278 H (74-99) mg/dL POC Glucose (mg/dL) 236 H (75-99) mg/dL Calcium 8.2 L (8.4-10.2) mg/dL Total Bilirubin <0.1 L (0.2-1.3) mg/dL Total Protein 5.2 L (6.3-8.2) g/dL Albumin 2.8 L (3.5-5.0) g/dL
--- NOTE | 2020-10-07 11:48 | US ---
EXAMINATION TYPE: US kidneys/renal and bladder DATE OF EXAM: 10/07/2020 COMPARISON: 07/26/2020 CLINICAL HISTORY: ashley. abnormal labs. no pain per patient. Patient states one kidney is under devel oped. External bladder catheter. EXAM MEASUREMENTS: Right Kidney: 7.0 x 4.4 x 4.8 cm- estimated Left Kidney: 9.8 x 4.8 x 4.9 cm Extremely limited exam due to patient body habitus and patient unable to turn RLD or LLD Right Kidney: Very limited visualization. Echogenic in appearance. Possible hypoechoic area upper p ole, prominent column of aguilar vs fluid vs other etiology = 2.1 x 1.2 x1.4 cm Left Kidney: Possible small echogenic foci with out shadowing. Spleen not visualized for comparison. Bladder: anechoic, thickened wall Let Jets seen IMPRESSION: 1. Right kidney atrophic. Correlate for chronic medical renal disease. Bladder wall is thickened elisabeth elate for cystitis. There is a nodular density measuring 1.2 cm within the right kidney which does no t meet the criteria of a simple cyst. Appears to correspond to the findings seen by recent CT scan sherman alexander. 2. Bilateral nonobstructing renal calculi.
[2020-10-07 11:56] LABS: Glucose,Whole Blood 206 mg/dL (75-99)
[2020-10-07 14:14] VITALS: BP 112/68; PULSE 82; TEMP 98.1
[2020-10-07] MEDS ORDERED: APIXABAN 5 MG TAB PO SCH (16:00)
== END 2020-10-07 14:55 | DRG 760 ==
LOC: EC 05:27 → 3SCARD 06:53 → 4SSUR 10-02 21:15 → OBSVTOIN 10-03 11:53
PROVIDERS: ADMIT Internal Medicine; ATTEND Internal Medicine
PROC: 30233N1 Transfusion of Nonautologous Red Blood Cells into Peripheral Vein, Percutaneous Approach (ICD-10-PCS; 2020-10-03)
PROC: 0DJD8ZZ Inspection of Lower Intestinal Tract, Via Natural or Artificial Opening Endoscopic (ICD-10-PCS; principal; 2020-10-06 08:00)
PROC: 0DB78ZX Excision of Stomach, Pylorus, Via Natural or Artificial Opening Endoscopic, Diagnostic (ICD-10-PCS; 2020-10-06 08:00)
DX: E28.2 Polycystic ovarian syndrome (principal); N17.0 Acute kidney failure with tubular necrosis; I82.509 Chronic embolism and thrombosis of unspecified deep veins of unspecified lower extremity; Z68.42 Body mass index [BMI] 45.0-49.9, adult; D62 Acute posthemorrhagic anemia; N39.0 Urinary tract infection, site not specified; K86.1 Other chronic pancreatitis; N93.9 Abnormal uterine and vaginal bleeding, unspecified; D53.9 Nutritional anemia, unspecified; B96.20 Unspecified Escherichia coli [E. coli] as the cause of diseases classified elsewhere; E66.9 Obesity, unspecified; N13.9 Obstructive and reflux uropathy, unspecified; N18.32 Chronic kidney disease, stage 3b; N92.6 Irregular menstruation, unspecified; Z98.84 Bariatric surgery status; E66.01 Morbid (severe) obesity due to excess calories; I25.2 Old myocardial infarction; I12.9 Hypertensive chronic kidney disease with stage 1 through stage 4 chronic kidney disease, or unspecified chronic kidney disease; E11.22 Type 2 diabetes mellitus with diabetic chronic kidney disease; F32.9 Major depressive disorder, single episode, unspecified; E03.9 Hypothyroidism, unspecified; K29.60 Other gastritis without bleeding; E78.5 Hyperlipidemia, unspecified; F41.0 Panic disorder [episodic paroxysmal anxiety]; Z53.20 Procedure and treatment not carried out because of patient's decision for unspecified reasons; Z87.442 Personal history of urinary calculi; Z79.01 Long term (current) use of anticoagulants; Z79.890 Hormone replacement therapy; Z79.899 Other long term (current) drug therapy; Z86.73 Personal history of transient ischemic attack (TIA), and cerebral infarction without residual deficits; Z87.440 Personal history of urinary (tract) infections; Z88.6 Allergy status to analgesic agent; Z88.8 Allergy status to other drugs, medicaments and biological substances; Z90.49 Acquired absence of other specified parts of digestive tract
CPT/HCPCS: 36410; 36415; 43239; 45378; 76770; 76937; 80048; 80053; 81025; 82668; 82728; 82784; 83010; 83540; 83550; 83615; 83883; 84165; 85025; 85027; 85045; 85610; 85652; 85730; 86038; 86334; 86431; 86850; 86900; 86901; 86920; 88305; 93970; 94760; 99285

== ENCOUNTER 2021-01-26 16:06 | Inpatient (IN) | payer OTHER ==
[2021-01-26] MEDS ORDERED: SODIUM CHLORIDE 0.9% 1,000 ML IV STA (16:15)
[2021-01-26] MEDS ORDERED: Kcentra PER PHARMACY 1 EACH MISC MISCELLANE PRN (16:21)
[2021-01-26] MEDS ORDERED: EMPTY BAG 1 BAG with HUMAN PROTHROMBIN COMPLX 2,172 UNIT IV ONE (16:30)
[2021-01-26 16:35] LABS: Anisocytosis Slight; Basophils % (A) 0 %; Eosinophils # (A) 0.2 k/uL (0-0.7); Eosinophils % (A) 3 %; Hypochromasia Marked; Lymphocytes # (A) 1.1 k/uL (1.0-4.8); Lymphocytes % (A) 17 %; MCH 22.8 pg (25.0-35.0); MCHC 28.9 g/dL (31.0-37.0); MCV 79.1 fL (80.0-100.0); Mean Platelet Volume 9.1; Microcytosis Slight; Monocytes # (A) 0.4 k/uL (0-1.0); Monocytes % (A) 5 %; Neutrophils # (A) 4.8 k/uL (1.3-7.7); Neutrophils % (A) 73 %; Platelet Count 178 k/uL (150-450); Poikilocytosis Moderate; RBC 1.86 m/uL (3.80-5.40); RDW 17.3 % (11.5-15.5); WBC 6.6 k/uL (3.8-10.6)
[2021-01-26 16:46] LABS: AST 9 U/L (14-36); African American GFR (CKD) 23 (>60 ml/min/1.73 sqM); Albumin 3.1 g/dL (3.5-5.0); Alkaline Phosphatase 70 U/L (38-126); Blood Urea Nitrogen 28 mg/dL (7-17); Calcium 7.7 mg/dL (8.4-10.2); Carbon Dioxide 27 mmol/L (22-30); Glucose 203 mg/dL (74-99); Non-African American GFR(CKD) 20 (>60 ml/min/1.73 sqM); Total Bilirubin <0.1 mg/dL (0.2-1.3); Total Protein 5.7 g/dL (6.3-8.2)
[2021-01-26 16:48] LABS: HCT 14.7 % (34.0-46.0); HGB 4.2 gm/dL (11.4-16.0)
[2021-01-26] MEDS ORDERED: HYDROmorphone 0.5 MG/0.5 ML SYRINGE IVP STA (16:55)
[2021-01-26] MEDS ORDERED: HUMAN PROTHROMBIN COMPLX 500 UNIT/16 ML VIAL IV ONE (16:55)
--- NOTE | 2021-01-26 17:00 | ED ---
General Adult HPI - General Chief complaint: Recheck/Abnormal Lab/Rx Stated complaint: Low Hemoglobin Time Seen by Provider: 01/26/21 16:15 Source: patient, EMS, RN notes reviewed, old records reviewed Mode of arrival: EMS Limitations: no limitations - History of Present Illness Initial comments: This is a 35-year-old female presents emergency Department because of low hemoglobin. According to the paramedics patient has had vaginal bleeding for 2 months and she has had this occur in the past which she became anemic. Patient is a very poor historian and is not capable of answering most questions. Patient does however deny any pain. Patient states she doesn't even know if she is continuing to have vaginal bleeding however the report we received from EMS as she continues to have vaginal bleeding and has done so for the last 2 months. They also stated that at some point in time she had a D&C or uterine ablation are not sure what they don't know who did it or where it was done. Patient's hemoglobin was reported to be 4.0. Patient herself denies any complaints. Patient is on a blood thinner eliquis but she doesn't know why she is on it. There's been no report of any fever or chills is been no report of any difficulty breathing. - Related Data Home Medications Medication Instructions Recorded Confirmed Ergocalciferol (Vitamin D2) 50,000 unit PO QMONTHLY 02/15/18 01/26/21 [Drisdol (50,000 Iu)] FLUoxetine HCL [PROzac] 20 mg PO DAILY@0800 02/15/18 01/26/21 Levothyroxine Sodium [Synthroid] 25 mcg PO HS@199902/15/18 01/26/21 Multivitamins, Thera [Multivitamin 1 tab PO DAILY@0800 02/15/18 01/26/21 (formulary)] Acetaminophen Tab [Tylenol] 650 mg PO Q6H PRN 09/03/18 01/26/21 Baclofen 10 mg PO HS@199907/25/20 01/26/21 Carvedilol [Coreg] 3.125 mg PO BID@0800,1600 07/25/20 01/26/21 Insulin Aspart [NovoLOG] See Protocol SQ ACHS@07,11,16,20 07/25/20 01/26/21 Insulin Glargine,Hum.rec.anlog 24 unit SQ HS@199907/25/20 01/26/21 [Lantus Solostar Pen] Sennosides/Docusate Sodium [Senna 2 tab PO HS@199907/25/20 01/26/21 Plus 8.6-50 mg Softgel] amLODIPine [Norvasc] 5 mg PO DAILY@0800 07/25/20 01/26/21 Apixaban [Eliquis] 5 mg PO BID@0800,1600 09/29/20 01/26/21 Atorvastatin [Lipitor] 20 mg PO HS@199909/29/20 01/26/21 Furosemide [Lasix] 20 mg PO DAILY@0800 09/29/20 01/26/21 Sodium Bicarbonate Tab 650 mg PO BID@0800,1600 09/29/20 01/26/21 clonazePAM [KlonoPIN] 0.5 mg PO HS@199909/29/20 01/26/21 Darbepoetin Kurtis [Aranesp] 25 mcg SQ MO@2200 01/26/21 01/26/21 Norethindrone [Chani] 0.35 mg PO DAILY@1400 01/26/21 01/26/21 clomiPRAMINE [Anafranil] 50 mg PO HS@199901/26/21 01/26/21 traMADol HCl [Ultram] 50 mg PO Q8H PRN 01/26/21 01/26/21 Previous Rx's Medication Instructions Recorded HYDROcodone/APAP 7.5-325MG [[place] 1 tab PO Q12HR PRN 3 Days #6 tab 07/29/20 7.5-325] traMADol HCl [Ultram] 50 mg PO TID@0500,1300,2100 3 Days 07/29/20 #9 tab Allergies Allergy/AdvReac Type Severity Reaction Status Date / Time aspirin Allergy Rash/Hives Verified 01/26/21 16:54 sertraline HCl [From Zoloft] Allergy Unknown Verified 01/26/21 16:54 zolpidem tartrate Allergy Unknown Verified 01/26/21 16:54 [From Ambien] gabapentin [From Neurontin] AdvReac Severe SEVERE Verified 01/26/21 16:54 AGITATION ibuprofen [From Motrin] AdvReac AVOIDS D/T Verified 01/26/21 16:54 KIDNEY FUNCTION Review of Systems ROS Statement: Those systems with pertinent positive or pertinent negative responses have been documented in the HPI. ROS Other: All systems not noted in ROS Statement are negative. Past Medical History Past Medical History: CVA/TIA, Deep Vein Thrombosis (DVT), Myocardial Infarction ([place]) Additional Past Medical History / Comment(s): morbid obesity, pancreatitis, history of coma - 10/24/14 - until end december after suffering from a stroke. Last Myocardial Infarction Date:: 10/2014 History of Any Multi-Drug Resistant Organisms: ESBL, Other MDRO Date of last positivie culture/infection: 07/16/20 ESBL E.coli MDRO Source:: Urine-ESBL Past Surgical History: Cholecystectomy Additional Past Surgical History / Comment(s): Cystoscopy with placement of left double-J catheter 02/16/2018, Gastric bypass 2015 Past Anesthesia/Blood Transfusion Reactions: No Reported Reaction Past Psychological History: Anxiety, Depression, Panic Disorder Smoking Status: Never smoker Past Alcohol Use History: None Reported Past Drug Use History: Marijuana - Past Family History Father History Unknown: Yes Family Medical History: Cancer Additional Family Medical History / Comment(s): lung General Exam - General Exam Comments Initial Comments: GENERAL: Patient is well-developed and well-nourished. Patient is nontoxic and well- hydrated and is in mild distress. ENT: Neck is soft and supple. No significant lymphadenopathy is noted. Oropharynx is clear. Moist mucous membranes. Neck has full range of motion without eliciting any pain. EYES: The sclera were anicteric and conjunctiva were pink and moist. Extraocular movements were intact and pupils were equal round and reactive to light. Eyelids were unremarkable. PULMONARY: Unlabored respirations. Good breath sounds bilaterally. No audible rales rhonchi or wheezing was noted. CARDIOVASCULAR: There is a regular rate and rhythm without any murmurs gallops or rubs. ABDOMEN: Soft and nontender with normal bowel sounds. SKIN: Patient's skin is very pale NEUROLOGIC: Patient is alert and oriented x3. Cranial nerves II through XII are grossly intact. Motor and sensory are also intact. Normal speech, volume and content. Symmetrical smile. MUSCULOSKELETAL: Normal extremities with adequate strength and full range of motion. LYMPHATICS: No significant lymphadenopathy is noted PSYCHIATRIC: Normal psychiatric evaluation. Limitations: no limitations Course Vital Signs 01/26/21 01/26/2121 16:15 18:29 18:37 Temperature 97 F L 98.2 F 98.1 F Pulse Rate 96 94 95 Respiratory 18 16 17 Rate Blood Pressure 107/67 111/76 125/62 O2 Sat by Pulse 100 100 100 Oximetry 01/26/21 01/26/21 01/26/21 18:39 19:02 19:43 Temperature 98.5 F 98.8 F Pulse Rate 97 95 95 Respiratory 18 17 15 Rate Blood Pressure 112/78 109/78 115/75 O2 Sat by Pulse 100 100 100 Oximetry Medical Decision Making - Medical Decision Making EKG shows normal sinus rhythm at 87 bpm SC interval 190 QRS is 92 QT interval 392 QTC is 471. Patient's EKG shows no ST segment elevation or depression. Patient's hemoglobin is 4.2 cm 2 units of packed red blood cells. I wanted to do a pelvic exam with the patient she absolutely refused. Had a female PA go into the room to ask if she could do the pelvic examination she absolutely refused. I spoke with Dr. Knight he wanted the patient admitted though he did not believe she needs to go to the ICU secondary to the fact that this is a long-standing chronic problem. Dr. Knight did however want SOCIAL WORK SUPERVISOR consult. Patient also received [facility] to reverse her eliquis - Lab Data Result diagrams: 01/26/21 16:23 01/26/21 16:23 Lab Results 01/26/21 01/26/21 01/26/21 Range/Units 16:20 16:23 16:23 WBC 6.6 (3.8-10.6) k/uL RBC 1.86 L (3.80-5.40) m/uL Hgb 4.2 L* (11.4-16.0) gm/dL Hct 14.7 L* (34.0-46.0) % MCV 79.1 L (80.0-100.0) fL MCH 22.8 L (25.0-35.0) pg MCHC 28.9 L (31.0-37.0) g/dL RDW 17.3 H (11.5-15.5) % Plt Count 178 (150-450) k/uL MPV 9.1 Neutrophils % 73 % Lymphocytes % 17 % Monocytes % 5 % Eosinophils % 3 % Basophils % 0 % Neutrophils # 4.8 (1.3-7.7) k/uL Lymphocytes # 1.1 (1.0-4.8) k/uL Monocytes # 0.4 (0-1.0) k/uL Eosinophils # 0.2 (0-0.7) k/uL Basophils # 0.0 (0-0.2) k/uL Hypochromasia Marked Poikilocytosis Moderate Anisocytosis Slight Microcytosis Slight PT 11.1 (9.0-12.0) sec INR 1.0 (<1.2) APTT 22.5 (22.0-30.0) sec Sodium (137-145) mmol/L Potassium (3.5-5.1) mmol/L Chloride (98-107) mmol/L Carbon Dioxide (22-30) mmol/L Anion Gap mmol/L BUN (7-17) mg/dL Creatinine (0.52-1.04) mg/dL Est GFR (CKD-EPI)AfAm (>60 ml/min/1.73 sqM) Est GFR (CKD-EPI)NonAf (>60 ml/min/1.73 sqM) Glucose (74-99) mg/dL Calcium (8.4-10.2) mg/dL Total Bilirubin (0.2-1.3) mg/dL AST (14-36) U/L ALT (4-34) U/L Alkaline Phosphatase (38-126) U/L Troponin I (0.000-0.034) ng/mL Total Protein (6.3-8.2) g/dL Albumin (3.5-5.0) g/dL Blood Type A Positive Blood Type Recheck A Pos Bld Type Recheck Status No Antibody Screen NEGATIVE Crossmatch See Detail Spec Expiration Date 01/29/2021 - 231901/26/21 01/26/21 Range/Units 16:23 16:23 WBC (3.8-10.6) k/uL RBC (3.80-5.40) m/uL Hgb (11.4-16.0) gm/dL Hct (34.0-46.0) % MCV (80.0-100.0) fL MCH (25.0-35.0) pg MCHC (31.0-37.0) g/dL RDW (11.5-15.5) % Plt Count (150-450) k/uL MPV Neutrophils % % Lymphocytes % % Monocytes % % Eosinophils % % Basophils % % Neutrophils # (1.3-7.7) k/uL Lymphocytes # (1.0-4.8) k/uL Monocytes # (0-1.0) k/uL Eosinophils # (0-0.7) k/uL Basophils # (0-0.2) k/uL Hypochromasia Poikilocytosis Anisocytosis Microcytosis PT (9.0-12.0) sec INR (<1.2) APTT (22.0-30.0) sec Sodium 133 L (137-145) mmol/L Potassium 3.5 (3.5-5.1) mmol/L Chloride 100 (98-107) mmol/L Carbon Dioxide 27 (22-30) mmol/L Anion Gap 6 mmol/L BUN 28 H (7-17) mg/dL Creatinine 2.92 H (0.52-1.04) mg/dL Est GFR (CKD-EPI)AfAm 23 (>60 ml/min/1.73 sqM) Est GFR (CKD-EPI)NonAf 20 (>60 ml/min/1.73 sqM) Glucose 203 H (74-99) mg/dL Calcium 7.7 L (8.4-10.2) mg/dL Total Bilirubin <0.1 L (0.2-1.3) mg/dL AST 9 L (14-36) U/L ALT 7 (4-34) U/L Alkaline Phosphatase 70 (38-126) U/L Troponin I <0.012 (0.000-0.034) ng/mL Total Protein 5.7 L (6.3-8.2) g/dL Albumin 3.1 L (3.5-5.0) g/dL Blood Type Blood Type Recheck Bld Type Recheck Status Antibody Screen Crossmatch Spec Expiration Date Critical Care Time Critical Care Time: Yes Total Critical Care Time: 35 Disposition Clinical Impression: Anemia, Vaginal bleeding Disposition: ADMITTED IP TO THIS HOSP Referrals: Moncho Suarez DO [Primary Care Provider] - 1-2 days Time of Disposition: 20:05
[2021-01-26 17:02] LABS: Partial Thromboplastin Time 22.5 sec (22.0-30.0); Prothrombin Time 11.1 sec (9.0-12.0)
[2021-01-26 17:11] LABS: Potassium 3.5 mmol/L (3.5-5.1)
[2021-01-26 17:12] LABS: Anion Gap 6 mmol/L; Chloride 100 mmol/L (98-107); Sodium 133 mmol/L (137-145)
[2021-01-26 17:36] LABS: ALT 7 U/L (4-34)
--- NOTE | 2021-01-26 18:23 | XR ---
EXAMINATION: XR chest 2V DATE AND TIME: 01/26/2021 6:05 PM CLINICAL INDICATION: PHH; Difficulty breathing TECHNIQUE: Departmental protocol COMPARISON: None FINDINGS: Overlying soft tissues are prominent in the upper extremities or in the [id number]. These are limi ting radiographic factors. The lungs appear to be clear. The pleural spaces are negative. The cardiac silhouette is not enlarged. The remainder of the mediastinal silhouette is unremarkable. The skeletal structures and soft tissues are negative for acute findings. IMPRESSION: No definite acute radiographic process.
--- NOTE | 2021-01-26 18:26 | XR ---
PROCEDURE: XR Hip RT and AP Pelvis - 5V DATE AND TIME: 01/26/2021 6:05 PM CLINICAL INDICATION: Pain after fall TECHNIQUE: Department protocol COMPARISON: None FINDINGS: Overlying soft tissues are prominent and a board is also present, limiting visualization. T here is no evident fracture or malalignment. The soft tissues are unremarkable. IMPRESSION: No definite acute radiographic process.
[2021-01-26] MEDS ORDERED: SODIUM CHLORIDE 0.9% 1,000 ML IV ONE (20:08)
[2021-01-27 02:49] LABS: INR 0.9 (<1.2); Partial Thromboplastin Time 22.3 sec (22.0-30.0); Prothrombin Time 9.9 sec (9.0-12.0)
[2021-01-27 02:56] LABS: Anisocytosis Slight; Basophils % (A) 0 %; Eosinophils # (A) 0.2 k/uL (0-0.7); Eosinophils % (A) 3 %; Hypochromasia Marked; Lymphocytes # (A) 1.4 k/uL (1.0-4.8); Lymphocytes % (A) 19 %; MCH 29.8 pg (25.0-35.0); MCHC 35.5 g/dL (31.0-37.0); MCV 84.1 fL (80.0-100.0); Mean Platelet Volume 8.1; Monocytes # (A) 0.4 k/uL (0-1.0); Monocytes % (A) 5 %; Neutrophils # (A) 5.2 k/uL (1.3-7.7); Neutrophils % (A) 70 %; Platelet Count 169 k/uL (150-450); Poikilocytosis Marked; RBC 2.19 m/uL (3.80-5.40); RDW 17.9 % (11.5-15.5); WBC 7.4 k/uL (3.8-10.6)
[2021-01-27 02:59] LABS: HCT 18.5 % (34.0-46.0); HGB 6.5 gm/dL (11.4-16.0)
[2021-01-27 07:51] LABS: Anisocytosis Slight; Basophils % (A) 0 %; Eosinophils # (A) 0.2 k/uL (0-0.7); Eosinophils % (A) 3 %; HCT 21.9 % (34.0-46.0); Hypochromasia Marked; Lymphocytes # (A) 1.1 k/uL (1.0-4.8); Lymphocytes % (A) 18 %; MCH 26.4 pg (25.0-35.0); MCHC 31.1 g/dL (31.0-37.0); MCV 84.9 fL (80.0-100.0); Mean Platelet Volume 9.5; Monocytes # (A) 0.3 k/uL (0-1.0); Monocytes % (A) 5 %; Neutrophils # (A) 4.4 k/uL (1.3-7.7); Neutrophils % (A) 71 %; Platelet Count 183 k/uL (150-450); Poikilocytosis Marked; RBC 2.58 m/uL (3.80-5.40); RDW 17.4 % (11.5-15.5); WBC 6.3 k/uL (3.8-10.6)
[2021-01-27 07:56] LABS: HGB 6.8 gm/dL (11.4-16.0)
[2021-01-27] MEDS ORDERED: HYDROcodone/APAP 7.5-325MG 1 EACH TAB PO STA (08:19)
[2021-01-27] MEDS ORDERED: LORazepam 0.5 MG TAB PO STA (08:20)
[2021-01-27] MEDS ORDERED: clonazePAM 0.5 MG TAB PO STA (08:56)
[2021-01-27 12:01] LABS: Glucose,Whole Blood 225 mg/dL (75-99)
[2021-01-27] MEDS ORDERED: ACETAMINOPHEN TAB 325 MG TAB PO PRN (12:54)
[2021-01-27] MEDS ORDERED: NON FORMULARY DRUG (Norethindrone [Camila] 0.35 MG Tablet) PO SCH (14:00)
--- NOTE | 2021-01-27 14:34 | P.OBCN ---
History of Present Illness Consult date: 01/27/21 Requesting physician: Dennis Stacy Reason for consult: other (Vaginal bleeding and anemia) History of present illness: This is a 35-year-old 0 woman who is admitted from [facility] to the emergency room for vaginal bleeding and severe anemia. She reports a two-month history of ongoing vaginal bleeding and was found on evaluation to have a hemoglobin of 4.2. She has been transfused 2 units of packed red blood cells and her hemoglobin is currently 6.8. The patient states she has "poor memory" but does know she's been having problems with vaginal bleeding for several months. Prior to that she had very irregular if not absent periods. She was admitted in September of this year and at that time was also found to have vaginal bleeding and anemia. She was started on a progesterone only oral contraceptive pill which she has continued throughout this time. She reports she had possibly a D&C procedure at some point in the last year but she does not remember at what hospital or who her physician is. She has a court appointed medical power of contracts attorney. Past medical history is significant for DVT, VA and CVA. She is currently anticoagulated on eliquis. Currently K states that she is feeling fine. She denies headaches, visual changes, lightheadedness, nausea, vomiting, abdominal pain, pelvic pain, recent falls, chronic constipation or diarrhea. She is chronically incontinent. He declines any type of pelvic examination at this time. Inspection of her incontinence garment is saturated with urine as well as blood there are no formed clots noted. Review of Systems Constitutional: Reports as per HPI, Denies fatigue Cardiovascular: Denies chest pain, Denies shortness of breath Respiratory: Denies cough Gastrointestinal: Denies abdominal pain, Denies BRBPR, Denies diarrhea, Denies melena, Denies nausea, Denies vomiting Genitourinary: Reports as per HPI, Reports abnormal vaginal bleeding Menstruation: Reports as per HPI Integumentary: Denies rash Neurological: Denies headaches Psychiatric: Reports anxiety, Reports memory loss Endocrine: Reports high blood sugars Hematologic/Lymphatic: Reports easy bleeding, Reports easy bruising Past Medical History Past Medical History: CVA/TIA, Deep Vein Thrombosis (DVT), Myocardial Infarction ([place]) Additional Past Medical History / Comment(s): morbid obesity, pancreatitis, history of coma - 10/24/14 - until end of december after suffering from a stroke. Last Myocardial Infarction Date:: 10/2014 History of Any Multi-Drug Resistant Organisms: ESBL, Other MDRO Year Discovered:: 07/16/20 ESBL E.coli MDRO Source:: Urine-ESBL Past Surgical History: Cholecystectomy Additional Past Surgical History / Comment(s): Cystoscopy with placement of left double-J catheter 02/16/2018, Gastric bypass 2016 Past Anesthesia/Blood Transfusion Reactions: No Reported Reaction Past Psychological History: Anxiety, Depression, Panic Disorder Smoking Status: Never smoker Past Alcohol Use History: None Reported Past Drug Use History: Marijuana - Past Family History Father History Unknown: Yes Family Medical History: Cancer Additional Family Medical History / Comment(s): lung Medications and Allergies Home Medications Medication Instructions Recorded Confirmed Type Ergocalciferol (Vitamin D2) 50,000 unit PO QMONTHLY 02/15/18 01/26/21 History [Drisdol (50,000 Iu)] FLUoxetine HCL [PROzac] 20 mg PO DAILY@0800 02/15/18 01/26/21 History Levothyroxine Sodium [Synthroid] 25 mcg PO HS@199902/15/18 01/26/21 History Multivitamins, Thera [Multivitamin 1 tab PO DAILY@0800 02/15/18 01/26/21 History (formulary)] Acetaminophen Tab [Tylenol] 650 mg PO Q6H PRN 09/03/18 01/26/21 History Baclofen 10 mg PO HS@199907/25/20 01/26/21 History Carvedilol [Coreg] 3.125 mg PO BID@0800,1600 07/25/20 01/26/21 History Insulin Aspart [NovoLOG] See Protocol SQ ACHS@07,11,16,20 07/25/20 01/26/21 History Insulin Glargine,Hum.rec.anlog 24 unit SQ HS@199907/25/20 01/26/21 History [Lantus Solostar Pen] Sennosides/Docusate Sodium [Senna 2 tab PO HS@199907/25/20 01/26/21 History Plus 8.6-50 mg Softgel] amLODIPine [Norvasc] 5 mg PO DAILY@0800 07/25/20 01/26/21 History HYDROcodone/APAP 7.5-325MG [[place] 1 tab PO Q12HR PRN 3 Days #6 tab 07/29/20 01/26/21 Rx 7.5-325] traMADol HCl [Ultram] 50 mg PO TID@0500,1300,2100 3 Days 07/29/20 01/26/21 Rx #9 tab Apixaban [Eliquis] 5 mg PO BID@0800,1600 09/29/20 01/26/21 History Atorvastatin [Lipitor] 20 mg PO HS@199909/29/20 01/26/21 History Furosemide [Lasix] 20 mg PO DAILY@0800 09/29/20 01/26/21 History Sodium Bicarbonate Tab 650 mg PO BID@0800,1600 09/29/20 01/26/21 History clonazePAM [KlonoPIN] 0.5 mg PO HS@199909/29/20 01/26/21 History Darbepoetin Kurtis [Aranesp] 25 mcg SQ MO@2200 01/26/21 01/26/21 History Norethindrone [Chani] 0.35 mg PO DAILY@1400 01/26/21 01/26/21 History clomiPRAMINE [Anafranil] 50 mg PO HS@199901/26/21 01/26/21 History traMADol HCl [Ultram] 50 mg PO Q8H PRN 01/26/21 01/26/21 History Allergies Allergy/AdvReac Type Severity Reaction Status Date / Time aspirin Allergy Rash/Hives Verified 01/26/21 16:54 sertraline HCl [From Zoloft] Allergy Unknown Verified 01/26/21 16:54 zolpidem tartrate Allergy Unknown Verified 01/26/21 16:54 [From Ambien] gabapentin [From Neurontin] AdvReac Severe SEVERE Verified 01/26/21 16:54 AGITATION ibuprofen [From Motrin] AdvReac AVOIDS D/T Verified 01/26/21 16:54 KIDNEY FUNCTION Exam Vital Signs Temp Pulse Resp BP Pulse Ox 01/27/21 10:25 98.5 F 01/27/21 10:04 91 16 134/69 100 01/27/21 08:41 100 01/27/21 05:59 85 16 110/75 95 01/26/21 23:50 97.9 F 87 16 125/62 100 01/26/21 21:41 87 16 125/62 100 01/26/21 21:32 98.2 F 84 16 128/74 100 01/26/21 19:43 95 15 115/75 100 01/26/21 19:02 98.8 F 95 17 109/78 100 01/26/21 18:39 98.5 F 97 18 112/78 100 01/26/21 18:37 98.1 F 95 17 125/62 100 01/26/21 18:29 98.2 F 94 16 111/76 100 01/26/21 16:15 97 F L 96 18 107/67 100 Intake and Output 01/26/21 01/27/21 01/27/21 22:59 06:59 14:59 Intake Total 310 0 Balance 310 0 Intake: Blood Product 310 0 Rc As-1 Unit 310 [id number] Rc As-1 Unit 0 0 [id number] Other: Weight 117.934 kg Radha declines all physical examination today. She does appear to be in no acute distress and is otherwise cooperative. Results Result Diagrams: 01/27/21 07:23 01/26/21 16:23 Abnormal Lab Results - Last 24 Hours (Table) 01/26/21 01/26/21 01/26/21 Range/Units 16:20 16:23 16:23 RBC 1.86 L (3.80-5.40) m/uL Hgb 4.2 L* (11.4-16.0) gm/dL Hct 14.7 L* (34.0-46.0) % MCV 79.1 L (80.0-100.0) fL MCH 22.8 L (25.0-35.0) pg MCHC 28.9 L (31.0-37.0) g/dL RDW 17.3 H (11.5-15.5) % Sodium 133 L (137-145) mmol/L BUN 28 H (7-17) mg/dL Creatinine 2.92 H (0.52-1.04) mg/dL Glucose 203 H (74-99) mg/dL POC Glucose (mg/dL) (75-99) mg/dL Calcium 7.7 L (8.4-10.2) mg/dL Total Bilirubin <0.1 L (0.2-1.3) mg/dL AST 9 L (14-36) U/L Total Protein 5.7 L (6.3-8.2) g/dL Albumin 3.1 L (3.5-5.0) g/dL Crossmatch See Detail 01/27/21 01/27/21 01/27/21 Range/Units 02:08 07:23 11:59 RBC 2.19 L 2.58 L (3.80-5.40) m/uL Hgb 6.5 L* D 6.8 L* (11.4-16.0) gm/dL Hct 18.5 L* 21.9 L (34.0-46.0) % MCV (80.0-100.0) fL MCH (25.0-35.0) pg MCHC (31.0-37.0) g/dL RDW 17.9 H 17.4 H (11.5-15.5) % Sodium (137-145) mmol/L BUN (7-17) mg/dL Creatinine (0.52-1.04) mg/dL Glucose (74-99) mg/dL POC Glucose (mg/dL) 225 H (75-99) mg/dL Calcium (8.4-10.2) mg/dL Total Bilirubin (0.2-1.3) mg/dL AST (14-36) U/L Total Protein (6.3-8.2) g/dL Albumin (3.5-5.0) g/dL Crossmatch Assessment and Plan Assessment: This is a 35-year-old 0 woman who is admitted with acute anemia and vagi nal bleeding along with multiple comorbidities. She is of course a strain however it sounds as though she's had vaginal bleeding for the past 2 months despite some type of hormone therapy. She is currently on Eliqius for history of DVT, VA and CVA in the past. This is difficult situation. Her vaginal bleeding significantly exacerbated by her anticoagulation. Transexamic acid and estradiol may increase risk for thrombotic events however they can be very effective in the management of acute vaginal bleeding. She is also possible candidate for levonorgestrel IUD or endometrial ablation. The patient describes having a D&C at some point this year however not have any records of this. I recommend a pelvic ultrasound at this time. I would like to obtain records from her long-term care facility regarding exactly what hormonal medication she is on the timing in nature of her gynecologic procedures in this past year. In the meantime I recommend starting progesterone only oral contraceptive pill and discontinuation of anticoagulation at the discretion of the medical team. My clinical assessment is limited by the patient's refusal for pelvic examination however I respect her wishes. (1) Anemia Current Visit: Yes Status: Acute Code(s): D64.9 - ANEMIA, UNSPECIFIED SNOMED Code(s): 069145896 (2) Anticoagulated Current Visit: No Status: Acute Code(s): Z79.01 - RETIREMENT (CURRENT) USE OF ANTICOAGULANTS SNOMED Code(s): 318100466 (3) Vaginal bleeding Current Visit: Yes Status: Acute Code(s): N93.9 - ABNORMAL UTERINE AND VAGINAL BLEEDING, UNSPECIFIED SNOMED Code(s): 517043120
[2021-01-27] MEDS: traMADol 50 MG TAB PO SCH ×2 (15:50→21:06)
[2021-01-27] MEDS: FUROSEMIDE 20 MG TAB PO SCH (15:50)
[2021-01-27] MEDS: SODIUM BICARBONATE TAB 650 MG TAB PO SCH (15:51)
[2021-01-27] MEDS: carvediloL 3.125 MG TAB PO SCH ×2 (15:51)
[2021-01-27 16:57] LABS: Glucose,Whole Blood 262 mg/dL (75-99)
--- NOTE | 2021-01-27 17:15 | P.HPIM ---
History of Present Illness H&P Date: 01/27/21 Chief Complaint: Low hemoglobin This is a pleasant 35-year-old patient who is a resident of [facility]. Patient is a long-term resident. Patient has a known history of irregular vaginal bleeding and she was here in September of this year was diagnosed with polycystic ovarian syndrome.. Patient's had multiple DVTs in the past. Also getting a gastric bypass surgery patient had a stroke and myocardial infarction. This has also resulted in cognitive impairment. Patient has poor short-term memory. Patient is putting much bedbound. She has contracture of the left hand and foot drop on the right leg. Also has history of hyperlipidemia anxiety hypertension hypothyroid diabetes. She is on eliquis. Patient continues to have intermittent bleeding for last 2 months. Hemoglobin the ER was 4.2. Was given 2 units of blood. This morning hemoglobin was 6.8. I did order a unit of blood. Consultation to [facility] was done. Patient denies any respiratory symptoms. Appetite is fair. Patient was givenK-centra in the ER Patient has a legal guardian Chandrika Review of systems: GEN.: None EYES: None HEENT: None NECK: None RESPIRATORY: None CARDIOVASCULAR: None GASTROINTESTINAL: None GENITOURINARY: Vaginal bleeding MUSCULOSKELETAL: Left hand and lower back pain LYMPHATICS: None HEMATOLOGICAL: None PSYCHIATRY: Forgetful NEUROLOGICAL: Contracture of the left hand and right foot drop Past medical history to include: Stroke resulting in decreased memory (contracture, following, in 2015 following surgery, DVT, ND, gastric bypass in 2016, anxiety depression, muscle spasms, irregular menstrual bleeding, hypertension, hypothyroid chronic pain in the hands nor back Social history: Patient is a long-term resident of [facility], no smoking. Did smoke marijuana in high school. Pretty much bedbound. Has a legal guardian Chandrika Family history: Lung cancer Physical examination: VITAL SIGNS: 97, 96, 18, 107/67, 100% on 3 L upon presentation,] GENERAL: BMI 44.6, laying in bed, awake comfortable. EYES: Pupils equal. Conjunctiva palel. HEENT: External appearance of nose and ears normal, oral cavity grossly normal. NECK: JVD unable to assess masses not palpable. HEART: Heart sounds are muffled; no edema. LUNGS: Respiratory rate normal; distant breath sounds. ABDOMEN: Soft, nontender, liver spleen not palpable, no masses palpable. PSYCH: Able to answer simple questions. Has trouble recalling stuff from the past.l. NEUROLOGICAL: [Cranial nerves grossly intact; no facial asymmetry, contracture of the left hand. Foot drop right foot LYMPHATICS: No lymph nodes palpable in the axilla and neck INVESTIGATIONS, reviewed in the clinical context: White count 6.6 hemoglobin 4.2 platelets 178 potassium 3.5 BUN 28 creatinine 2.92 Coronavirus [PCR]: Not detected EKG tracing personally reviewed by me-normal sinus rhythm nonspecific T-wave changes Chest x-ray film personally reviewed by me-cardiomegaly. Lungs clear Previous studies: Ultrasound kidneys [September 2020]: Right kidney atrophic bilateral nonobstructing renal calculi 2-D echocardiogram [July 2020] EF 50-55% Assessment and plan: -Persistent intermittent vaginal bleeding. Patient is on nonethidrone. Consultation to [facility]. -Acute severe blood loss anemia from vaginal bleeding Patient received 2 units of blood yesterday evening. 13 of blood ordered this morning. -Chronic medical debility, patient is not ambulatory -Morbid obesity BMI 44.6 -Chronic left hand contracture -Chronic right foot drop -Chronic multiple DVTs On eliquis 5 mg twice a day. Currently on hold -Hyperlipidemia Lipitor 20 mg daily at bedtime -Muscle spasm Baclofen 10 mg daily at bedtime -Essential hypertension Coreg 3.125 mg twice a day -Diabetes mellitus type 2, chronic low insulin On Lantus,. Follow Accu-Cheks -Chronic pain in the left hand and lower back. Patient on Paris 7.5 every 12 when necessary -Anxiety depression Patient on Klonopin 0.5 mg daily at bedtime Prozac 20 mg daily -Bilateral nonobstructing renal calculi, currently asymptomatic -Chronic kidney disease stage III from obstructive uropathy with a history of left ureteral stent. -Right renal atrophy Patient was seen by Dr. Rojo from [facility]. Pelvic ultrasound was ordered. She'll also review her previous records. Patient has received 3 units of blood. Anticoagulation temporally has been held. Patient will be better served in the long run with the IUD/endometrial ablation. Home medications resumed. Follow Accu-Cheks. Care was discussed with the patient. Past Medical History Past Medical History: CVA/TIA, Deep Vein Thrombosis (DVT), Myocardial Infarction (ND) Additional Past Medical History / Comment(s): morbid obesity, pancreatitis, history of coma - 10/24/14 - until end of december after suffering from a stroke. Last Myocardial Infarction Date:: 10/2014 History of Any Multi-Drug Resistant Organisms: ESBL, Other MDRO Date of last positivie culture/infection: 07/16/20 ESBL E.coli MDRO Source:: Urine-ESBL Past Surgical History: Cholecystectomy Additional Past Surgical History / Comment(s): Cystoscopy with placement of left double-J catheter 02/16/2018, Gastric bypass 2016 Past Anesthesia/Blood Transfusion Reactions: No Reported Reaction Past Psychological History: Anxiety, Depression, Panic Disorder Smoking Status: Never smoker Past Alcohol Use History: None Reported Past Drug Use History: Marijuana - Past Family History Father History Unknown: Yes Family Medical History: Cancer Additional Family Medical History / Comment(s): lung Medications and Allergies Home Medications Medication Instructions Recorded Confirmed Type Ergocalciferol (Vitamin D2) 50,000 unit PO QMONTHLY 02/15/18 01/26/21 History [Drisdol (50,000 Iu)] FLUoxetine HCL [PROzac] 20 mg PO DAILY@0800 02/15/18 01/26/21 History Levothyroxine Sodium [Synthroid] 25 mcg PO HS@199902/15/18 01/26/21 History Multivitamins, Thera [Multivitamin 1 tab PO DAILY@0800 02/15/18 01/26/21 History (formulary)] Acetaminophen Tab [Tylenol] 650 mg PO Q6H PRN 09/03/18 01/26/21 History Baclofen 10 mg PO HS@199907/25/20 01/26/21 History Carvedilol [Coreg] 3.125 mg PO BID@0800,1600 07/25/20 01/26/21 History Insulin Aspart [NovoLOG] See Protocol SQ ACHS@07,11,16,20 07/25/20 01/26/21 History Insulin Glargine,Hum.rec.anlog 24 unit SQ HS@199907/25/20 01/26/21 History [Lantus Solostar Pen] Sennosides/Docusate Sodium [Senna 2 tab PO HS@199907/25/20 01/26/21 History Plus 8.6-50 mg Softgel] amLODIPine [Norvasc] 5 mg PO DAILY@0800 07/25/20 01/26/21 History HYDROcodone/APAP 7.5-325MG [Paris 1 tab PO Q12HR PRN 3 Days #6 tab 07/29/20 01/26/21 Rx 7.5-325] traMADol HCl [Ultram] 50 mg PO TID@0500,1300,2100 3 Days 07/29/20 01/26/21 Rx #9 tab Apixaban [Eliquis] 5 mg PO BID@0800,1600 09/29/20 01/26/21 History Atorvastatin [Lipitor] 20 mg PO HS@199909/29/20 01/26/21 History Furosemide [Lasix] 20 mg PO DAILY@0800 09/29/20 01/26/21 History Sodium Bicarbonate Tab 650 mg PO BID@0800,1600 09/29/20 01/26/21 History clonazePAM [KlonoPIN] 0.5 mg PO HS@199909/29/20 01/26/21 History Darbepoetin Kurtis [Aranesp] 25 mcg SQ MO@2200 01/26/21 01/26/21 History Norethindrone [Chani] 0.35 mg PO DAILY@1400 01/26/21 01/26/21 History clomiPRAMINE [Anafranil] 50 mg PO HS@199901/26/21 01/26/21 History traMADol HCl [Ultram] 50 mg PO Q8H PRN 01/26/21 01/26/21 History Allergies Allergy/AdvReac Type Severity Reaction Status Date / Time aspirin Allergy Rash/Hives Verified 01/26/21 16:54 sertraline HCl [From Zoloft] Allergy Unknown Verified 01/26/21 16:54 zolpidem tartrate Allergy Unknown Verified 01/26/21 16:54 [From Ambien] gabapentin [From Neurontin] AdvReac Severe SEVERE Verified 01/26/21 16:54 AGITATION ibuprofen [From Motrin] AdvReac AVOIDS D/T Verified 01/26/21 16:54 KIDNEY FUNCTION Physical Exam Vitals: Vital Signs Temp Pulse Resp BP Pulse Ox 01/27/21 10:25 98.5 F 01/27/21 10:04 91 16 134/69 100 01/27/21 08:41 100 01/27/21 05:59 85 16 110/75 95 01/26/21 23:50 97.9 F 87 16 125/62 100 01/26/21 21:41 87 16 125/62 100 01/26/21 21:32 98.2 F 84 16 128/74 100 01/26/21 19:43 95 15 115/75 100 01/26/21 19:02 98.8 F 95 17 109/78 100 01/26/21 18:39 98.5 F 97 18 112/78 100 01/26/21 18:37 98.1 F 95 17 125/62 100 01/26/21 18:29 98.2 F 94 16 111/76 100 Intake and Output 01/27/21 01/27/21 01/27/21 06:59 14:59 22:59 Intake Total 0 Balance 0 Intake: Blood Product 0 Rc As-1 Unit 0 [id number] Other: # Voids 2 Results CBC & Chem 7: 01/27/21 07:23 01/26/21 16:23 Labs: Abnormal Lab Results - Last 24 Hours (Table) 01/26/21 01/26/21 01/27/21 Range/Units 16:20 16:23 02:08 RBC 2.19 L (3.80-5.40) m/uL Hgb 6.5 L* D (11.4-16.0) gm/dL Hct 18.5 L* (34.0-46.0) % RDW 17.9 H (11.5-15.5) % Sodium 133 L (137-145) mmol/L BUN 28 H (7-17) mg/dL Creatinine 2.92 H (0.52-1.04) mg/dL Glucose 203 H (74-99) mg/dL POC Glucose (mg/dL) (75-99) mg/dL Calcium 7.7 L (8.4-10.2) mg/dL Total Bilirubin <0.1 L (0.2-1.3) mg/dL AST 9 L (14-36) U/L Total Protein 5.7 L (6.3-8.2) g/dL Albumin 3.1 L (3.5-5.0) g/dL Crossmatch See Detail 01/27/21 01/27/21 Range/Units 07:23 11:59 RBC 2.58 L (3.80-5.40) m/uL Hgb 6.8 L* (11.4-16.0) gm/dL Hct 21.9 L (34.0-46.0) % RDW 17.4 H (11.5-15.5) % Sodium (137-145) mmol/L BUN (7-17) mg/dL Creatinine (0.52-1.04) mg/dL Glucose (74-99) mg/dL POC Glucose (mg/dL) 225 H (75-99) mg/dL Calcium (8.4-10.2) mg/dL Total Bilirubin (0.2-1.3) mg/dL AST (14-36) U/L Total Protein (6.3-8.2) g/dL Albumin (3.5-5.0) g/dL Crossmatch
[2021-01-27] MEDS: clonazePAM 0.5 MG TAB PO SCH (17:44)
[2021-01-27] MEDS: INSULIN ASPART (NovoLOG) 100 UNIT/ML VIAL SQ SCH ×2 (17:44→21:08)
[2021-01-27] MEDS: BACLOFEN 10 MG TAB PO SCH (17:44)
[2021-01-27] MEDS: HYDROcodone/APAP 7.5-325MG 1 EACH TAB PO PRN (19:51)
[2021-01-27 20:26] LABS: Glucose,Whole Blood 227 mg/dL (75-99)
[2021-01-27] MEDS: ATORVASTATIN 20 MG TAB PO SCH (21:05)
[2021-01-27] MEDS: SENNOSIDES-DOCUSATE SODIUM 1 EACH TAB PO SCH (21:06)
[2021-01-27] MEDS: INSULIN DETEMIR (LEVEMIR) 100 UNIT/ML SYR SQ SCH (21:06)
[2021-01-27] MEDS: LEVOTHYROXINE 25 MCG TAB PO SCH (21:06)
[2021-01-28 00:29] LABS: Anisocytosis Slight; HCT 22.9 % (34.0-46.0); HGB 7.3 gm/dL (11.4-16.0); Hypochromasia Marked; MCH 27.5 pg (25.0-35.0); MCHC 31.8 g/dL (31.0-37.0); MCV 86.5 fL (80.0-100.0); Mean Platelet Volume 8.6; Platelet Count 182 k/uL (150-450); Poikilocytosis Moderate; RBC 2.65 m/uL (3.80-5.40); RDW 16.8 % (11.5-15.5); WBC 7.1 k/uL (3.8-10.6)
[2021-01-28] MEDS: traMADol 50 MG TAB PO SCH ×3 (04:23→20:28)
[2021-01-28 06:24] LABS: Glucose,Whole Blood 180 mg/dL (75-99)
[2021-01-28] MEDS: INSULIN ASPART (NovoLOG) 100 UNIT/ML VIAL SQ SCH ×4 (06:30→20:27)
[2021-01-28 07:37] LABS: Anisocytosis Slight; Basophils % (A) 0 %; Eosinophils # (A) 0.2 k/uL (0-0.7); Eosinophils % (A) 3 %; HCT 23.4 % (34.0-46.0); HGB 7.3 gm/dL (11.4-16.0); Hypochromasia Marked; Lymphocytes # (A) 1.1 k/uL (1.0-4.8); Lymphocytes % (A) 16 %; MCHC 31.3 g/dL (31.0-37.0); MCV 86.2 fL (80.0-100.0); Mean Platelet Volume 9.1; Monocytes # (A) 0.4 k/uL (0-1.0); Monocytes % (A) 5 %; Neutrophils # (A) 4.9 k/uL (1.3-7.7); Neutrophils % (A) 74 %; Platelet Count 183 k/uL (150-450); Poikilocytosis Moderate; RBC 2.72 m/uL (3.80-5.40); RDW 17.2 % (11.5-15.5); WBC 6.7 k/uL (3.8-10.6)
[2021-01-28] MEDS: MULTIVITAMINS, THERA 1 EACH TAB PO SCH (08:39)
[2021-01-28] MEDS: carvediloL 3.125 MG TAB PO SCH ×2 (08:39→16:57)
[2021-01-28] MEDS: SODIUM BICARBONATE TAB 650 MG TAB PO SCH ×2 (08:39→16:57)
[2021-01-28] MEDS: FLUoxetine HCL 20 MG CAP PO SCH (08:39)
[2021-01-28] MEDS: HYDROcodone/APAP 7.5-325MG 1 EACH TAB PO PRN ×2 (08:40→19:06)
[2021-01-28] MEDS: FUROSEMIDE 20 MG TAB PO SCH (08:42)
--- NOTE | 2021-01-28 10:35 | P.PN ---
Subjective Progress Note Date: 01/28/21 Principal diagnosis: Vaginal bleeding and anemia The patient reports she slept well overnight. She complains of low back pain and right ankle pain. Per RN report, she has had a small to moderate sized dark clots on her period pad when the patient is moved. Rosado catheter is in place overnight. She received a third unit of packed red blood cells yesterday afternoon. Objective - Vital Signs Vital signs: Vital Signs Temp 98.2 F 01/28/21 04:00 Pulse 75 01/28/21 04:00 Resp 16 01/28/21 04:00 BP 120/71 01/28/21 04:00 Pulse Ox 98 01/28/21 04:00 Intake & Output 01/27/21 01/28/21 01/28/21 18:59 06:59 18:59 Intake Total 180 310 Output Total 1780 Balance 180 -1470 Weight 117.934 kg Intake: Oral 180 Blood Product 0 310 Rc As-1 Unit 0 310 [id number] Output: Urine 1780 Other: Voiding Method Indwelling Catheter # Voids 2 - Exam Patient is resting comfortably in bed. She appears pale. The abdomen is soft with large overhanging pannus. With nurse assistance the patient is moved to allow for better visualization of the perineal area. She does have a approximately home size dark clot at the introitus. There is no active bright red bleeding noted. Her legs have decreased mobility and flexion at the knees. - Labs CBC & Chem 7: 01/28/21 06:57 01/26/21 16:23 Labs: Abnormal Lab Results - Last 24 Hours (Table) 01/26/21 01/27/21 01/27/21 Range/Units 16:20 11:59 16:55 RBC (3.80-5.40) m/uL Hgb (11.4-16.0) gm/dL Hct (34.0-46.0) % RDW (11.5-15.5) % POC Glucose (mg/dL) 225 H 262 H (75-99) mg/dL Crossmatch See Detail 01/27/21 01/28/21 01/28/21 Range/Units 20:25 00:04 06:21 RBC 2.65 L (3.80-5.40) m/uL Hgb 7.3 L (11.4-16.0) gm/dL Hct 22.9 L (34.0-46.0) % RDW 16.8 H (11.5-15.5) % POC Glucose (mg/dL) 227 H 180 H (75-99) mg/dL Crossmatch 01/28/21 Range/Units 06:57 RBC 2.72 L (3.80-5.40) m/uL Hgb 7.3 L (11.4-16.0) gm/dL Hct 23.4 L (34.0-46.0) % RDW 17.2 H (11.5-15.5) % POC Glucose (mg/dL) (75-99) mg/dL Crossmatch Assessment and Plan (1) Anemia Current Visit: Yes Status: Acute Code(s): D64.9 - ANEMIA, UNSPECIFIED SNOMED Code(s): 985390415 (2) Anticoagulated Current Visit: No Status: Acute Code(s): Z79.01 - [facility]FP (CURRENT) USE OF ANTICOAGULANTS SNOMED Code(s): 605473074 (3) Vaginal bleeding Current Visit: Yes Status: Acute Code(s): N93.9 - ABNORMAL UTERINE AND VAGINAL BLEEDING, UNSPECIFIED SNOMED Code(s): 370174239 Plan: Stable hemoglobin status post a total of 3 units packed red blood cells. She has received 2 doses of oral progesterone and her anticoagulation has been held however she continues to pass large clots vaginally. I believe the best course of action is 4 D&C with endometrial ablation. I did review this procedure in detail with daily who does agree to proceed. We discussed the procedure would go, the anticipated improvement in her bleeding and possible risks. Risks reviewed with her include ongoing bleeding, additional transfusion, infection, injury to the uterus or other pelvic organs, injury to the lower extremities with surgical positioning, anesthesia complications. The patient does have a medical power of compliance attorney who has been contacted for consent. The operating room has been contacted regarding the procedure. She is nothing by mouth.
--- NOTE | 2021-01-28 11:16 | HP ---
HISTORY AND PHYSICAL DATE OF PROCEDURE: 01/28/2021. HISTORY: The patient is seen today in rounds. [employer] and [employer] are down preventing electronic medical record charting. Briefly, the patient is a 35-year-old female who was admitted with heavy vaginal bleeding and severe anemia. She was started on Provera 10 mg and has received two doses. Her admission hemoglobin was 4.2. She was transfused two units of packed red blood cells on January 27 which increased her hemoglobin to 6.8. She then received an additional unit yesterday for hemoglobin of 7.3. Labs this morning are stable with an unchanged hemoglobin of 7.3. Her vital signs are stable. She continues, however, to have vaginal bleeding with the passage of palm sized clots. The patient has a Rosado catheter in place and she has no hematuria. The blood appears to be coming from the vagina. Secondary to the patient's mobility issues and body habitus, adequate pelvic examination at the bedside is impossible. Pelvic ultrasound shows uterus measuring 9.0 x 5.2 x 4.4 cm with an endometrial stripe of 6 mm. There is debris and fluid in the endometrium. Right ovary measures 4.1 x 4.4 x 2.8 with a 2.5 cm hemorrhagic cyst. Left ovary is normal. There is no free fluid in the cul-de-sac. The plan at this time is for diagnostic hysteroscopy with dilation and curettage and NovaSure endometrial ablation. The patient is counseled regarding this procedure, potential risks and anticipated improvement in her bleeding. She does have a medical power of deputy county attorney who also will be contacted to discuss risks, benefits, and alternatives to the procedure. Alternatives to the procedure would be to continue to hold her anticoagulation and proceed with 24-48 hours more of ongoing high-dose oral progesterone. The patient herself prefers to have the surgical procedure. I do believe ultimately this is the best long-term solution for her. The risks include bleeding, infection, uterine perforation with injury to other pelvic structures, failure of the ablation with ongoing bleeding in the future. This also may make any future pregnancies complicated and should not be relied upon as a contraceptive method. The operating room has been contacted. She has been n.p.o. since midnight and will proceed once we have a clearance from the medical power of deputy county attorney. MMLEX / ANANDN: [id number] /
[2021-01-28 11:43] LABS: Glucose,Whole Blood 155 mg/dL (75-99)
[2021-01-28] MEDS ORDERED: SODIUM CHLORIDE 0.9% 1,000 ML IV ONE (13:21)
[2021-01-28] MEDS ORDERED: MIDAZOLAM 2 MG/2 ML VIAL ONE (13:49)
[2021-01-28] MEDS ORDERED: fentaNYL (PF) 50 MCG/ML 2 ML AMP ONE (13:49)
[2021-01-28] MEDS ORDERED: ONDANSETRON 4 MG/2 ML VIAL ONE (13:49)
[2021-01-28] MEDS ORDERED: PROPOFOL 10 MG/ML 20 ML VIAL IV ONE (13:49)
[2021-01-28] MEDS ORDERED: SUCCINYLCHOLINE CHLORIDE 100 MG/5 ML SYR IV ONE (13:49)
[2021-01-28] MEDS ORDERED: LIDOCAINE 1% INJ 10MG/ML (20 ML MDV) ONE (13:49)
[2021-01-28 13:50] LABS: Glucose,Whole Blood 147 mg/dL (75-99)
[2021-01-28] MEDS ORDERED: LIDOCAINE 1%-EPI 1:100,000 20 ML VIAL SQ ONE ×3 (14:07→14:18)
--- NOTE | 2021-01-28 14:56 | P.OP ---
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 Diagnostic hysteroscopy Sharp dilation and curette Anesthesia: HORTENCIA Surgeon: Jen Rojo Estimated Blood Loss (ml): 25 IV fluids (ml): 800 Urine output (ml): 400 Pathology: other (Endometrial curettings) Condition: stable Disposition: PACU Indications for Procedure: Ongoing vaginal bleeding with acute blood loss anemia. Operative Findings: On exam under anesthetic the uterus felt bulky and enlarged approximately 8 week size. The cervix appeared grossly normal, free of any obvious cervical lesions. Cervical os with extruding dark clot. Uterus was sounded to only 6 cm, inconsistent with overall findings on bimanual exam. On hysteroscopy it is unclear whether there is a false passage created in the uterus with instrumentation versus an abnormal endometrial cavity consistent with possible Asherman's. fundal area or bilateral tubal ostia not definitively visualized. My impression is an abnormal endometrial metriaL cavity consistent with history of previous endometrial instrumentation creating an Asherman's syndrome. Less likely possibility that the endometrial cavity was not entered and a false passage created with current instrumentation. The vaginal possibility is significant tissue pathology in the uterus such as a malignancy. I therefore did not perform an ablation as the cavity was not normal and there is a possibility for tissue pathology. Description of Procedure: The patient was taken to the operating room where general anesthetic was administered without incident. She was then extremely carefully positioned in the dorsal lithotomy position with attention to contractures of her feet. She was prepped and draped in the usual fashion. Rosado catheter was R Rohan in place. Exam under anesthetic was undertaken and the uterus felt approximately 8 week size bulky and in the midline. There was hard stool palpable in the rectum. Speculum was placed in the vagina and the cervix was visualized. A small amount of organized very dark clot was expressed from the vaginal canal. Cervix was grasped anteriorly with a single-tooth tenaculum and a paracervical block with lidocaine plus epinephrine was placed. The uterus was sounded only to 6 cm and the tissue felt firm. This is inconsistent with fundal height on bimanual examination. The cervical canal was extremely carefully and gently dilated with Hegar dilators to allow for passage of the diagnostic hysteroscope. The hysteroscope was then very slowly inserted and under direct visualization the above findings were noted. It is my impression that I was in the endometrial cavity but there is was either abnormal tissue versus Asherman's syndrome. I did not achieve an adequate fundal or bilateral tubal ostia view. There was no evidence of uterine perforation I felt it was appropriate to proceed with gentle sharp banjo curet in order to obtain a tissue diagnosis. The hysteroscope was then removed and the smallest sharp banjo curet was inserted into the cavity. Circumferential curettage was undertaken and a adequate tissue specimen was obtained. Following instrumentation of the uterus the cervix was observed and no active bleeding was noted. All instruments were then removed from the vagina. The patient was awoken from general anesthetic and carefully repositioned. She was transported to the recovery room in good condition. All counts reported as correct to me by the operating room staff.
[2021-01-28 15:03] LABS: Glucose,Whole Blood 163 mg/dL (75-99)
[2021-01-28 16:31] LABS: Glucose,Whole Blood 185 mg/dL (75-99)
--- NOTE | 2021-01-28 18:13 | P.PN ---
Progress Note - Text Progress Note Date: 01/28/21 Chief Complaint: Low hemoglobin This is a pleasant 35-year-old patient who is a resident of [facility]. Patient is a long-term resident. Patient has a known history of irregular vaginal bleeding and she was here in September of this year was diagnosed with polycystic ovarian syndrome.. Patient's had multiple DVTs in the past. Also getting a gastric bypass surgery patient had a stroke and myocardial infarction. This has also resulted in cognitive impairment. Patient has poor short-term memory. Patient is putting much bedbound. She has contracture of the left hand and foot drop on the right leg. Also has history of hyperlipidemia anxiety hypertension hypothyroid diabetes. She is on eliquis. Patient continues to have intermittent bleeding for last 2 months. Hemoglobin the ER was 4.2. Was given 2 units of blood. This morning hemoglobin was 6.8. I did order a unit of blood. Consultation to SPINNING B[employer] PERSON was done. Patient denies any respiratory symptoms. Appetite is fair. Patient was givenK-centra in the ER Patient has a legal guardian Chandrika January 28: Patient taken to the OR today. Deep D&C was carried out. Possible Asherman syndrome. No abdominal pain. Tired. Hemoglobin 7.3. Review of systems: Was done for constitutional, cardiovascular, GI, pulmonary. relevant finding as above Active Medications Acetaminophen (Acetaminophen Tab 325 Mg Tab) 650 mg PO Q6H PRN PRN Reason: Mild Pain Hydrocodone Bitart/Acetaminophen (Hydrocodone/Apap 7.5-325mg 1 Each Tab) 1 each PO Q12HR PRN PRN Reason: Severe Pain Last Admin: 01/28/21 08:40 Dose: 1 each Documented by: Atorvastatin Calcium (Atorvastatin 20 Mg Tab) 20 mg PO HS@1999 [facility] Last Admin: 01/27/21 21:05 Dose: 20 mg Documented by: Baclofen (Baclofen 10 Mg Tab) 10 mg PO HS@1999 [facility] Last Admin: 01/27/21 17:44 Dose: 10 mg Documented by: Carvedilol (Carvedilol 3.125 Mg Tab) 3.125 mg PO BID@0800,1600 [facility] Last Admin: 01/28/21 16:57 Dose: 3.125 mg Documented by: Clomipramine HCl (Clomipramine 50 Mg Cap) 50 mg PO HS@1999 [facility] Last Admin: 01/27/21 21:59 Dose: 50 mg Documented by: Clonazepam (Clonazepam 0.5 Mg Tab) 0.5 mg PO HS@1999 [facility] Last Admin: 01/27/21 17:44 Dose: 0.5 mg Documented by: Darbepoetin Kurtis (Darbepoetin Kurtis 25 Mcg/0.42 Ml Syringe) 25 mcg SQ MO@2200 [facility] Ergocalciferol (Ergocalciferol 1,250 Mcg (50,000 Iu) Capsule) 1,250 mcg PO QMONTHLY [facility] Fluoxetine HCl (Fluoxetine Hcl 20 Mg Cap) 20 mg PO DAILY@0800 [facility] Last Admin: 01/28/21 08:39 Dose: 20 mg Documented by: Furosemide (Furosemide 20 Mg Tab) 20 mg PO DAILY@0800 [facility] Last Admin: 01/28/21 08:42 Dose: 20 mg Documented by: Insulin Aspart (Insulin Aspart (Novolog) 100 Unit/Ml Vial) 0 unit SQ [facility]; Protocol Last Admin: 01/28/21 16:57 Dose: 3 unit Documented by: Insulin Detemir (Insulin Detemir (Levemir) 100 Unit/Ml Syr) 24 unit SQ HS@1999 [facility] Last Admin: 01/27/21 21:06 Dose: 24 unit Documented by: Levothyroxine Sodium (Levothyroxine 25 Mcg Tab) 25 mcg PO HS@1999 [facility] Last Admin: 01/27/21 21:06 Dose: 25 mcg Documented by: Medroxyprogesterone Acetate (Medroxyprogesterone 2.5 Mg Tab) 10 mg PO BID [facility] Last Admin: 01/28/21 08:41 Dose: 10 mg Documented by: Multivitamins (Multivitamins, Thera 1 Each Tab) 1 each PO DAILY@0800 [facility] Last Admin: 01/28/21 08:39 Dose: 1 each Documented by: Senna/Docusate Sodium (Sennosides-Docusate Sodium 1 Each Tab) 2 each PO HS@1999 [facility] Last Admin: 01/27/21 21:06 Dose: Not Given Documented by: Sodium Bicarbonate (Sodium Bicarbonate Tab 650 Mg Tab) 650 mg PO BID@0800,1600 [facility] Last Admin: 01/28/21 16:57 Dose: 650 mg Documented by: Tramadol HCl (Tramadol 50 Mg Tab) 50 mg PO Q8H PRN PRN Reason: Moderate Breakthrough Pain Tramadol HCl (Tramadol 50 Mg Tab) 50 mg PO TID@0500,1300,2100 [facility] Last Admin: 01/28/21 16:45 Dose: Not Given Documented by: Past medical history to include: Stroke resulting in decreased memory (contracture, following, in 2015 following surgery, DVT, [place], gastric bypass in 2016, anxiety depression, muscle spasms, irregular menstrual bleeding, hypertension, hypothyroid chronic pain in the hands nor back Social history: Patient is a long-term resident of [facility], no smoking. Did smoke marijuana in high school. Pretty much bedbound. Has a legal guardian Chandrika Family history: Lung cancer Physical examination: VITAL SIGNS: 98, 96, 16, 104/70, 92% room air GENERAL: laying in bed, awake comfortable. EYES: Pupils equal. Conjunctiva palel. HEENT: External appearance of nose and ears normal, oral cavity grossly normal. NECK: JVD unable to assess masses not palpable. HEART: Heart sounds are muffled; no edema. LUNGS: Respiratory rate normal; distant breath sounds. ABDOMEN: Soft, nontender, liver spleen not palpable, no masses palpable. PSYCH: Able to answer simple questions. Has trouble recalling stuff from the past.l. NEUROLOGICAL: [Cranial nerves grossly intact; no facial asymmetry, contracture of the left hand. Foot drop right foot LYMPHATICS: No lymph nodes palpable in the axilla and neck INVESTIGATIONS, reviewed in the clinical context: January 28: Hemoglobin 7.3 White count 6.6 hemoglobin 4.2 platelets 178 potassium 3.5 BUN 28 creatinine 2.92 Coronavirus [PCR]: Not detected EKG tracing personally reviewed by me-normal sinus rhythm nonspecific T-wave changes Chest x-ray film personally reviewed by me-cardiomegaly. Lungs clear Previous studies: Ultrasound kidneys [September 2020]: Right kidney atrophic bilateral nonobstructing renal calculi 2-D echocardiogram [July 2020] EF 50-55% Assessment and plan: -Persistent intermittent vaginal bleeding. Patient is on nonethidrone. Deep DNC. Done today. 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 -Chronic medical debility, patient is not ambulatory -Morbid obesity BMI 44.6 -Chronic left hand contracture -Chronic right foot drop -Chronic multiple DVTs On eliquis 5 mg twice a day. Currently on hold -Hyperlipidemia Lipitor 20 mg daily at bedtime -Muscle spasm Baclofen 10 mg daily at bedtime -Essential hypertension Coreg 3.125 mg twice a day -Diabetes mellitus type 2, chronic low insulin On Lantus,. Follow Accu-Cheks -Chronic pain in the left hand and lower back. Patient on [place] 7.5 every 12 when necessary -Anxiety depression Patient on Klonopin 0.5 mg daily at bedtime Prozac 20 mg daily -Bilateral nonobstructing renal calculi, currently asymptomatic -Chronic kidney disease stage III from obstructive uropathy with a history of left ureteral stent. -Right renal atrophy Status post deep DNC today. Hemoglobin stable. Continue current medication treatment plan. Discussed with patient.
[2021-01-28 20:10] LABS: Glucose,Whole Blood 292 mg/dL (75-99)
[2021-01-28] MEDS: BACLOFEN 10 MG TAB PO SCH (20:26)
[2021-01-28] MEDS: ATORVASTATIN 20 MG TAB PO SCH (20:26)
[2021-01-28] MEDS: INSULIN DETEMIR (LEVEMIR) 100 UNIT/ML SYR SQ SCH (20:26)
[2021-01-28] MEDS: clonazePAM 0.5 MG TAB PO SCH (20:26)
[2021-01-28] MEDS: SENNOSIDES-DOCUSATE SODIUM 1 EACH TAB PO SCH (20:27)
[2021-01-28] MEDS: LEVOTHYROXINE 25 MCG TAB PO SCH (20:27)
[2021-01-29 06:14] LABS: Glucose,Whole Blood 189 mg/dL (75-99)
[2021-01-29] MEDS: INSULIN ASPART (NovoLOG) 100 UNIT/ML VIAL SQ SCH ×4 (06:24→21:13)
[2021-01-29] MEDS: traMADol 50 MG TAB PO SCH ×3 (06:24→21:14)
[2021-01-29] MEDS: HYDROcodone/APAP 7.5-325MG 1 EACH TAB PO PRN ×2 (08:43→21:16)
[2021-01-29] MEDS: FUROSEMIDE 20 MG TAB PO SCH (08:44)
[2021-01-29] MEDS: carvediloL 3.125 MG TAB PO SCH ×2 (08:45→17:19)
[2021-01-29] MEDS: MULTIVITAMINS, THERA 1 EACH TAB PO SCH (08:45)
[2021-01-29] MEDS: FLUoxetine HCL 20 MG CAP PO SCH (08:45)
[2021-01-29] MEDS: SODIUM BICARBONATE TAB 650 MG TAB PO SCH ×2 (08:45→17:18)
[2021-01-29 08:48] LABS: Anisocytosis Slight; Basophils % (A) 0 %; Eosinophils # (A) 0.2 k/uL (0-0.7); Eosinophils % (A) 4 %; HCT 22.8 % (34.0-46.0); Hypochromasia Marked; Lymphocytes # (A) 1.2 k/uL (1.0-4.8); Lymphocytes % (A) 18 %; MCH 27.3 pg (25.0-35.0); MCHC 30.3 g/dL (31.0-37.0); MCV 90.1 fL (80.0-100.0); Mean Platelet Volume 9.5; Monocytes # (A) 0.4 k/uL (0-1.0); Monocytes % (A) 5 %; Neutrophils # (A) 4.8 k/uL (1.3-7.7); Neutrophils % (A) 70 %; Platelet Count 188 k/uL (150-450); Poikilocytosis Moderate; RBC 2.53 m/uL (3.80-5.40); RDW 17.5 % (11.5-15.5); WBC 6.8 k/uL (3.8-10.6)
[2021-01-29 08:50] LABS: HGB 6.9 gm/dL (11.4-16.0)
--- NOTE | 2021-01-29 10:59 | P.PN ---
Subjective Progress Note Date: 01/29/21 Principal diagnosis: Vaginal bleeding and anemia Radha is resting comfortably. She reports no pain. Per nursing report she has had no vaginal bleeding since her procedure yesterday. She has not yet been restarted on her anticoagulation. Findings at the time of the procedure were discussed in detail with Radha including that we're unable to perform the ablation secondary to the abnormal shape of her endometrial cavity possibly secondary to history of previous intrauterine procedures creating guarding or Asherman's like findings. Objective - Vital Signs Vital signs: Vital Signs Temp 98.2 F 01/29/21 04:00 Pulse 97 01/29/21 04:00 Resp 18 01/29/21 04:00 BP 127/73 01/29/21 04:00 Pulse Ox 96 01/29/21 04:00 Intake & Output 01/28/21 01/29/21 01/29/21 18:59 06:59 18:59 Intake Total 718 500 480 Output Total 75 1200 575 Balance 643 -700 -95 Weight 117.934 kg 105.6 kg Intake: IV 600 Oral 118 500 480 Output: Urine 50 1200 575 Uretheral (Rosado) 600 Estimated Blood Loss 25 Other: Voiding Method Indwelling Catheter Indwelling Catheter - Exam This is a comfortable-appearing obese female in no acute distress. Targeted physical exam is performed. Her abdomen is soft and obese with pannus, no rebound no guarding or other pain. Examination of her period pad is dry with no bleeding. She is a Rosado catheter in place. - Labs CBC & Chem 7: 01/29/21 08:05 01/26/21 16:23 Labs: Abnormal Lab Results - Last 24 Hours (Table) 01/28/21 01/28/21 01/28/21 Range/Units 11:41 13:49 14:57 RBC (3.80-5.40) m/uL Hgb (11.4-16.0) gm/dL Hct (34.0-46.0) % MCHC (31.0-37.0) g/dL RDW (11.5-15.5) % POC Glucose (mg/dL) 155 H 147 H 163 H (75-99) mg/dL 01/28/21 01/28/21 01/29/21 Range/Units 16:29 20:06 06:12 RBC (3.80-5.40) m/uL Hgb (11.4-16.0) gm/dL Hct (34.0-46.0) % MCHC (31.0-37.0) g/dL RDW (11.5-15.5) % POC Glucose (mg/dL) 185 H 292 H 189 H (75-99) mg/dL 01/29/21 Range/Units 08:05 RBC 2.53 L (3.80-5.40) m/uL Hgb 6.9 L* (11.4-16.0) gm/dL Hct 22.8 L (34.0-46.0) % MCHC 30.3 L (31.0-37.0) g/dL RDW 17.5 H (11.5-15.5) % POC Glucose (mg/dL) (75-99) mg/dL Assessment and Plan (1) Anemia Current Visit: Yes Status: Acute Code(s): D64.9 - ANEMIA, UNSPECIFIED SNOMED Code(s): 888071415 (2) Anticoagulated Current Visit: No Status: Acute Code(s): Z79.01 - SPECIAL EFFECTS ARTIST (CURRENT) USE OF ANTICOAGULANTS SNOMED Code(s): 885569145 (3) Vaginal bleeding Current Visit: Yes Status: Acute Code(s): N93.9 - ABNORMAL UTERINE AND VAGINAL BLEEDING, UNSPECIFIED SNOMED Code(s): 884806586 Plan: This is a 35-year-old 0 woman who is postop day 1 status post diagnostic hysteroscopy and D&C. Hospital day 3 for vaginal bleeding, acute anemia and multiple comorbidities. She's had no further vaginal bleeding since the time of her procedure. Her hemoglobin is stable at 6.9. I will defer to the medical team for restart of her anticoagulation however I strongly encourage conse rvative approach to this is as I believe that that is a significant contributing factor to her vaginal bleeding and severe anemia. She should continue on her oral progesterone in the outpatient setting. She may follow up with me as an outpatient as well as with any significant increase in her vaginal bleeding. I reviewed all this with Bettina in detail today and all questions were answered.
[2021-01-29 11:39] LABS: Glucose,Whole Blood 226 mg/dL (75-99)
[2021-01-29 16:19] LABS: Glucose,Whole Blood 242 mg/dL (75-99)
--- NOTE | 2021-01-29 16:42 | P.PN ---
Progress Note - Text Progress Note Date: 01/29/21 Chief Complaint: Low hemoglobin This is a pleasant 35-year-old patient who is a resident of [facility]. Patient is a long-term resident. Patient has a known history of irregular vaginal bleeding and she was here in September of this year was diagnosed with polycystic ovarian syndrome.. Patient's had multiple DVTs in the past. Also getting a gastric bypass surgery patient had a stroke and myocardial infarction. This has also resulted in cognitive impairment. Patient has poor short-term memory. Patient is putting much bedbound. She has contracture of the left hand and foot drop on the right leg. Also has history of hyperlipidemia anxiety hypertension hypothyroid diabetes. She is on eliquis. Patient continues to have intermittent bleeding for last 2 months. Hemoglobin the ER was 4.2. Was given 2 units of blood. This morning hemoglobin was 6.8. I did order a unit of blood. Consultation to [employer] was done. Patient denies any respiratory symptoms. Appetite is fair. Patient was givenK-centra in the ER Patient has a legal guardian Chandrika January 28: Patient taken to the OR today. Deep D&C was carried out. Possible Asherman syndrome. No abdominal pain. Tired. Hemoglobin 7.3. January 29: Hemoglobin 6.9. 1 unit of blood ordered. Consult hematology opinion in terms of anticoagulation versus persistent vaginal bleeding. Gill filter will only be a temporary solution I think. Review of systems: Was done for constitutional, cardiovascular, GI, pulmonary. relevant finding as above Active Medications Acetaminophen (Acetaminophen Tab 325 Mg Tab) 650 mg PO Q6H PRN PRN Reason: Mild Pain Hydrocodone Bitart/Acetaminophen (Hydrocodone/Apap 7.5-325mg 1 Each Tab) 1 each PO Q12HR PRN PRN Reason: Severe Pain Last Admin: 01/29/21 08:43 Dose: 1 each Documented by: Atorvastatin Calcium (Atorvastatin 20 Mg Tab) 20 mg PO HS@1999 [facility] Last Admin: 01/28/21 20:26 Dose: 20 mg Documented by: Baclofen (Baclofen 10 Mg Tab) 10 mg PO HS@1999 [facility] Last Admin: 01/28/21 20:26 Dose: 10 mg Documented by: Carvedilol (Carvedilol 3.125 Mg Tab) 3.125 mg PO BID@0800,1600 [facility] Last Admin: 01/29/21 08:45 Dose: 3.125 mg Documented by: Clomipramine HCl (Clomipramine 50 Mg Cap) 50 mg PO HS@1999 [facility] Last Admin: 01/28/21 20:26 Dose: 50 mg Documented by: Clonazepam (Clonazepam 0.5 Mg Tab) 0.5 mg PO HS@1999 [facility] Last Admin: 01/28/21 20:26 Dose: 0.5 mg Documented by: Darbepoetin Kurtis (Darbepoetin Kurtis 25 Mcg/0.42 Ml Syringe) 25 mcg SQ MO@2199 [facility] Ergocalciferol (Ergocalciferol 1,250 Mcg (50,000 Iu) Capsule) 1,250 mcg PO QMONTHLY [facility] Fluoxetine HCl (Fluoxetine Hcl 20 Mg Cap) 20 mg PO DAILY@08 [facility] Last Admin: 01/29/21 08:45 Dose: 20 mg Documented by: Furosemide (Furosemide 20 Mg Tab) 20 mg PO DAILY@0800 [facility] Last Admin: 01/29/21 08:44 Dose: 20 mg Documented by: Insulin Aspart (Insulin Aspart (Novolog) 100 Unit/Ml Vial) 0 unit SQ [facility]; Protocol Last Admin: 01/29/21 13:34 Dose: 5 unit Documented by: Insulin Detemir (Insulin Detemir (Levemir) 100 Unit/Ml Syr) 24 unit SQ HS@1999 [facility] Last Admin: 01/28/21 20:26 Dose: 24 unit Documented by: Levothyroxine Sodium (Levothyroxine 25 Mcg Tab) 25 mcg PO HS@1999 [facility] Last Admin: 01/28/21 20:27 Dose: 25 mcg Documented by: Medroxyprogesterone Acetate (Medroxyprogesterone 2.5 Mg Tab) 10 mg PO BID [facility] Last Admin: 01/29/21 10:51 Dose: 10 mg Documented by: Multivitamins (Multivitamins, Thera 1 Each Tab) 1 each PO DAILY@0800 [facility] Last Admin: 01/29/21 08:45 Dose: 1 each Documented by: Senna/Docusate Sodium (Sennosides-Docusate Sodium 1 Each Tab) 2 each PO HS@1999 [facility] Last Admin: 01/28/21 20:27 Dose: 2 each Documented by: Sodium Bicarbonate (Sodium Bicarbonate Tab 650 Mg Tab) 650 mg PO BID@0800,1600 [facility] Last Admin: 01/29/21 08:45 Dose: 650 mg Documented by: Tramadol HCl (Tramadol 50 Mg Tab) 50 mg PO Q8H PRN PRN Reason: Moderate Breakthrough Pain Tramadol HCl (Tramadol 50 Mg Tab) 50 mg PO TID@0500,1300,2100 [facility] Last Admin: 01/29/21 13:34 Dose: 50 mg Documented by: Past medical history to include: Stroke resulting in decreased memory (contracture, following, in 2015 following surgery, DVT, [place], gastric bypass in 2016, anxiety depression, muscle spasms, irregular menstrual bleeding, hypertension, hypothyroid chronic pain in the hands nor back Social history: Patient is a long-term resident of [facility], no smoking. Did smoke marijuana in high school. Pretty much bedbound. Has a legal guardian Chandrika Family history: Lung cancer Physical examination: VITAL SIGNS: 98, 95, 18, 130/72, 100% on 2 L GENERAL: laying in bed, awake comfortable. EYES: Pupils equal. Conjunctiva palel. HEENT: External appearance of nose and ears normal, oral cavity grossly normal. NECK: JVD unable to assess masses not palpable. HEART: Heart sounds are muffled; no edema. LUNGS: Respiratory rate normal; distant breath sounds. ABDOMEN: Soft, nontender, liver spleen not palpable, no masses palpable. PSYCH: Able to answer simple questions. Has trouble recalling stuff from the past.l. NEUROLOGICAL: [Cranial nerves grossly intact; no facial asymmetry, contracture of the left hand. Foot drop right foot INVESTIGATIONS, reviewed in the clinical context: January 29: Hemoglobin 6.9 January 28: Hemoglobin 7.3 White count 6.6 hemoglobin 4.2 platelets 178 potassium 3.5 BUN 28 creatinine 2.92 Coronavirus [PCR]: Not detected EKG tracing personally reviewed by me-normal sinus rhythm nonspecific T-wave changes Chest x-ray film personally reviewed by me-cardiomegaly. Lungs clear Previous studies: Ultrasound kidneys [September 2020]: Right kidney atrophic bilateral nonobstructing renal calculi 2-D echocardiogram [July 2020] EF 50-55% Assessment and plan: -Persistent intermittent vaginal bleeding. Patient is on nonethidrone. Deep DNC. Done today. 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 On another unit of blood ordered today. -Chronic medical debility, patient is not ambulatory -Morbid obesity BMI 44.6 -Chronic left hand contracture -Chronic right foot drop -Chronic multiple DVTs On eliquis 5 mg twice a day. Currently on hold -Hyperlipidemia Lipitor 20 mg daily at bedtime -Muscle spasm Baclofen 10 mg daily at bedtime -Essential hypertension Coreg 3.125 mg twice a day -Diabetes mellitus type 2, chronic low insulin On Lantus,. Follow Accu-Cheks -Chronic pain in the left hand and lower back. Patient on [place] 7.5 every 12 when necessary -Anxiety depression Patient on Klonopin 0.5 mg daily at bedtime Prozac 20 mg daily -Bilateral nonobstructing renal calculi, currently asymptomatic -Chronic kidney disease stage III from obstructive uropathy with a history of left ureteral stent. -Right renal atrophy Hemoglobin 6.9. Transfuse another unit of blood. Consult hematology. Dilemma off holding anticoagulation versus vaginal bleeding. Endometrial ablation not easy given the Asherman syndrome. Other options would be hysterectomy. Gill filter is only a temporary solution.
[2021-01-29] MEDS: traMADol 50 MG TAB PO PRN (17:34)
[2021-01-29 20:34] LABS: Glucose,Whole Blood 256 mg/dL (75-99)
[2021-01-29] MEDS: clonazePAM 0.5 MG TAB PO SCH (21:12)
[2021-01-29] MEDS: ATORVASTATIN 20 MG TAB PO SCH (21:12)
[2021-01-29] MEDS: BACLOFEN 10 MG TAB PO SCH (21:12)
[2021-01-29] MEDS: SENNOSIDES-DOCUSATE SODIUM 1 EACH TAB PO SCH (21:13)
[2021-01-29] MEDS: LEVOTHYROXINE 25 MCG TAB PO SCH (21:13)
[2021-01-29] MEDS: INSULIN DETEMIR (LEVEMIR) 100 UNIT/ML SYR SQ SCH (22:36)
[2021-01-30 06:03] LABS: Glucose,Whole Blood 259 mg/dL (75-99)
[2021-01-30] MEDS: traMADol 50 MG TAB PO SCH ×3 (06:42→20:53)
[2021-01-30] MEDS: INSULIN ASPART (NovoLOG) 100 UNIT/ML VIAL SQ SCH ×4 (06:43→20:52)
[2021-01-30 07:41] LABS: Anisocytosis Slight; Basophils % (A) 0 %; Eosinophils # (A) 0.3 k/uL (0-0.7); Eosinophils % (A) 5 %; HCT 25.3 % (34.0-46.0); HGB 7.7 gm/dL (11.4-16.0); Hypochromasia Marked; Lymphocytes # (A) 1.4 k/uL (1.0-4.8); Lymphocytes % (A) 24 %; MCH 27.4 pg (25.0-35.0); MCHC 30.4 g/dL (31.0-37.0); MCV 90.1 fL (80.0-100.0); Mean Platelet Volume 8.8; Monocytes # (A) 0.3 k/uL (0-1.0); Monocytes % (A) 6 %; Neutrophils # (A) 3.6 k/uL (1.3-7.7); Neutrophils % (A) 62 %; Platelet Count 177 k/uL (150-450); Poikilocytosis Moderate; RBC 2.81 m/uL (3.80-5.40); RDW 17.6 % (11.5-15.5); WBC 5.7 k/uL (3.8-10.6)
[2021-01-30 07:52] LABS: Calcium 7.5 mg/dL (8.4-10.2); Potassium 3.6 mmol/L (3.5-5.1)
[2021-01-30] MEDS: FLUoxetine HCL 20 MG CAP PO SCH (09:18)
[2021-01-30] MEDS: medroxyPROGESTERone 10 MG TABLET PO SCH ×2 (09:18→20:54)
[2021-01-30] MEDS: carvediloL 3.125 MG TAB PO SCH ×2 (09:18→16:53)
[2021-01-30] MEDS: FUROSEMIDE 20 MG TAB PO SCH (09:18)
[2021-01-30] MEDS: MULTIVITAMINS, THERA 1 EACH TAB PO SCH (09:18)
[2021-01-30] MEDS: SODIUM BICARBONATE TAB 650 MG TAB PO SCH ×2 (09:18→16:53)
[2021-01-30 12:09] LABS: Glucose,Whole Blood 258 mg/dL (75-99)
--- NOTE | 2021-01-30 13:03 | P.PN ---
Subjective Progress Note Date: 01/30/21 Principal diagnosis: Vaginal bleeding, anemia Radha reports she is feeling very well overnight. She very much like to be discharged home. She is having no pelvic pain. Per RN report she's had very scant vaginal bleeding on her incontinence garment throughout the night. Objective - Vital Signs Vital signs: Vital Signs Temp 97.8 F 01/30/21 09:15 Pulse 89 01/30/21 09:15 Resp 16 01/30/21 09:15 BP 109/71 01/30/21 09:15 Pulse Ox 97 01/30/21 09:15 Intake & Output 01/29/21 01/30/21 01/30/21 18:59 06:59 18:59 Intake Total 1200 1270 180 Output Total 1775 1750 Balance -575 -480 180 Weight 108.5 kg Intake: Oral 1200 960 180 Blood Product 0 310 Rc As-1 Unit 0 310 [id number] Output: Urine 1775 1750 Uretheral (Rosado) 800 350 Other: Voiding Method Indwelling Catheter Indwelling Catheter Indwelling Catheter - Exam Radha is resting comfortably in bed. Abdomen is soft and nontender. Incontinence garment is completely dry with no evidence of blood. Her Rosado catheter has been removed. - Labs CBC & Chem 7: 01/30/21 06:35 01/30/21 06:35 Labs: Abnormal Lab Results - Last 24 Hours (Table) 01/26/21 01/29/21 01/29/21 Range/Units 16:20 16:17 20:32 RBC (3.80-5.40) m/uL Hgb (11.4-16.0) gm/dL Hct (34.0-46.0) % MCHC (31.0-37.0) g/dL RDW (11.5-15.5) % BUN (7-17) mg/dL Creatinine (0.52-1.04) mg/dL Glucose (74-99) mg/dL POC Glucose (mg/dL) 242 H 256 H (75-99) mg/dL Calcium (8.4-10.2) mg/dL Crossmatch See Detail 01/30/21 01/30/21 01/30/21 Range/Units 06:01 06:35 06:35 RBC 2.81 L (3.80-5.40) m/uL Hgb 7.7 L (11.4-16.0) gm/dL Hct 25.3 L (34.0-46.0) % MCHC 30.4 L (31.0-37.0) g/dL RDW 17.6 H (11.5-15.5) % BUN 25 H (7-17) mg/dL Creatinine 2.72 H (0.52-1.04) mg/dL Glucose 210 H (74-99) mg/dL POC Glucose (mg/dL) 259 H (75-99) mg/dL Calcium 7.5 L (8.4-10.2) mg/dL Crossmatch 01/30/21 Range/Units 12:07 RBC (3.80-5.40) m/uL Hgb (11.4-16.0) gm/dL Hct (34.0-46.0) % MCHC (31.0-37.0) g/dL RDW (11.5-15.5) % BUN (7-17) mg/dL Creatinine (0.52-1.04) mg/dL Glucose (74-99) mg/dL POC Glucose (mg/dL) 258 H (75-99) mg/dL Calcium (8.4-10.2) mg/dL Crossmatch Assessment and Plan (1) Anemia Current Visit: Yes Status: Acute Code(s): D64.9 - ANEMIA, UNSPECIFIED [facility] Code(s): 406878096 (2) Anticoagulated Current Visit: No Status: Acute Code(s): Z79.01 - BUS CLEANER (CURRENT) USE OF ANTICOAGULANTS SNOMED Code(s): 562388287 (3) Vaginal bleeding Current Visit: Yes Status: Acute Code(s): N93.9 - ABNORMAL UTERINE AND VAGINAL BLEEDING, UNSPECIFIED SNOMED Code(s): 821116154 Plan: Postop day 2 status post diagnostic hysteroscopy and D&C. She has had no additional vaginal bleeding. Did receive 1 additional unit packed red blood cells yesterday. Hemoglobin is currently stable at 7.7. Recommend continuing oral Provera while inpatient and resume norethindrone in the outpatient setting.
[2021-01-30] MEDS: ENOXAPARIN 30 MG/0.3 ML SYRINGE SQ SCH (13:44)
[2021-01-30] MEDS: HYDROcodone/APAP 7.5-325MG 1 EACH TAB PO PRN (13:44)
[2021-01-30] MEDS: SODIUM FERRIC GLUCONAT-SUCROSE 125 MG in SODIUM CHLORIDE 0.9% 100 ML IVPB SCH (13:45)
--- NOTE | 2021-01-30 15:19 | P.CONS ---
History of Present Illness - Reason for Consult Consult date: 01/30/21 anticoagulation recs, bleeding Requesting physician: Dennis Stacy - Chief Complaint vaginal bleeding, anemia - History of Present Illness Ms. Christensen is a very pleasant 35 yo female we have been asked to see for recommendations regarding anticoagulation with recurrent bleeding episodes. Pt has Hx DVTs, CVA, also, she is bedbound which further increases her risk for ramon ous thromboembolism. She was seen in consult in July and Nov. Iron deficiency noted, no paraproteinemia. Pt denies any other bleeding. Her vaginal bleeding has stopped since procedure with Deck Worker over the weekend. Review of Systems 10 point ROS is neg except as stated in HPI Past Medical History Past Medical History: CVA/TIA, Deep Vein Thrombosis (DVT), Myocardial Infarction (DE) Additional Past Medical History / Comment(s): morbid obesity, pancreatitis, history of coma - 10/24/14 - until end of december after suffering from a stroke. Last Myocardial Infarction Date:: 10/2014 History of Any Multi-Drug Resistant Organisms: ESBL, Other MDRO Year Discovered:: 07/16/20 ESBL E.coli MDRO Source:: Urine-ESBL Past Surgical History: Cholecystectomy Additional Past Surgical History / Comment(s): Cystoscopy with placement of left double-J catheter 02/16/2018, Gastric bypass 2016 Past Anesthesia/Blood Transfusion Reactions: No Reported Reaction Past Psychological History: Anxiety, Depression, Panic Disorder Smoking Status: Never smoker Past Alcohol Use History: None Reported Additional Past Alcohol Use History / Comment(s): patient smoked in high school Past Drug Use History: Marijuana - Past Family History Father History Unknown: Yes Family Medical History: Cancer Additional Family Medical History / Comment(s): lung Medications and Allergies Home Medications Medication Instructions Recorded Confirmed Type Ergocalciferol (Vitamin D2) 50,000 unit PO QMONTHLY 02/15/18 01/26/21 History [Drisdol (50,000 Iu)] FLUoxetine HCL [PROzac] 20 mg PO DAILY@0800 02/15/18 01/26/21 History Levothyroxine Sodium [Synthroid] 25 mcg PO HS@199902/15/18 01/26/21 History Multivitamins, Thera [Multivitamin 1 tab PO DAILY@0800 02/15/18 01/26/21 History (formulary)] Acetaminophen Tab [Tylenol] 650 mg PO Q6H PRN 09/03/18 01/26/21 History Baclofen 10 mg PO HS@199907/25/20 01/26/21 History Carvedilol [Coreg] 3.125 mg PO BID@0800,1600 07/25/20 01/26/21 History Insulin Aspart [NovoLOG] See Protocol SQ ACHS@07,11,16,20 07/25/20 01/26/21 History Insulin Glargine,Hum.rec.anlog 24 unit SQ HS@199907/25/20 01/26/21 History [Lantus Solostar Pen] Sennosides/Docusate Sodium [Senna 2 tab PO HS@199907/25/20 01/26/21 History Plus 8.6-50 mg Softgel] amLODIPine [Norvasc] 5 mg PO DAILY@0800 07/25/20 01/26/21 History HYDROcodone/APAP 7.5-325MG [[place] 1 tab PO Q12HR PRN 3 Days #6 tab 07/29/20 01/26/21 Rx 7.5-325] traMADol HCl [Ultram] 50 mg PO TID@0500,1300,2100 3 Days 07/29/20 01/26/21 Rx #9 tab Apixaban [Eliquis] 5 mg PO BID@0800,1600 09/29/20 01/26/21 History Atorvastatin [Lipitor] 20 mg PO HS@199909/29/20 01/26/21 History Furosemide [Lasix] 20 mg PO DAILY@0800 09/29/20 01/26/21 History Sodium Bicarbonate Tab 650 mg PO BID@0800,1600 09/29/20 01/26/21 History clonazePAM [KlonoPIN] 0.5 mg PO HS@199909/29/20 01/26/21 History Darbepoetin Kurtis [Aranesp] 25 mcg SQ MO@2200 01/26/21 01/26/21 History Norethindrone [Chani] 0.35 mg PO DAILY@1400 01/26/21 01/26/21 History clomiPRAMINE [Anafranil] 50 mg PO HS@199901/26/21 01/26/21 History traMADol HCl [Ultram] 50 mg PO Q8H PRN 01/26/21 01/26/21 History Allergies Allergy/AdvReac Type Severity Reaction Status Date / Time aspirin Allergy Rash/Hives Verified 01/26/21 16:54 sertraline HCl [From Zoloft] Allergy Unknown Verified 01/26/21 16:54 zolpidem tartrate Allergy Unknown Verified 01/26/21 16:54 [From Ambien] gabapentin [From Neurontin] AdvReac Severe SEVERE Verified 01/26/21 16:54 AGITATION ibuprofen [From Motrin] AdvReac AVOIDS D/T Verified 01/26/21 16:54 KIDNEY FUNCTION Physical Exam Vitals: Vital Signs Temp Pulse Pulse Resp BP BP Pulse Ox 01/30/21 09:15 97.8 F 89 16 109/71 97 01/30/21 07:32 100 01/30/21 04:00 97.8 F 94 18 143/84 98 01/30/21 02:00 94 18 01/30/21 00:00 98.2 F 94 18 122/78 100 01/29/21 20:24 98 128/72 01/29/21 20:00 98.1 F 96 18 137/72 100 01/29/21 18:04 98.2 F 95 18 120/74 01/29/21 17:34 98 F 100 16 138/81 01/29/21 17:24 98 F 100 16 135/72 01/29/21 16:00 98.2 F 84 18 120/70 96 01/29/21 14:00 16 Intake and Output 01/29/21 01/30/21 01/30/21 22:59 06:59 14:59 Intake Total 550 960 180 Output Total 400 1750 Balance 150 -790 180 Intake: Oral 240 960 180 Blood Product 310 Rc As-1 Unit 310 [id number] Output: Urine 400 1750 Uretheral (Rosado) 350 Other: Voiding Method Indwelling Catheter Indwelling Catheter Indwelling Catheter Weight 108.5 kg - Constitutional General appearance: cooperative, morbidly obese, no acute distress - EENT Eyes: anicteric sclerae, EOMI ENT: hearing grossly normal, normal oropharynx - Respiratory Respiratory: bilateral: CTA - Cardiovascular Rhythm: regular Heart sounds: normal: S1, S2 Abnormal Heart Sounds: no systolic murmur, no diastolic murmur, no rub, no S3 Gallop, no S4 Gallop, no click, no other leg Peripheral Edema: bilateral: Trace - Gastrointestinal General gastrointestinal: no absent bowel sounds, no decreased bowel sounds, no distended, no hepatomegaly, no hyperactive bowel sounds, normal bowel sounds, no organomegaly, no rigid, no scaphoid, soft, no splenomegaly, no tenderness, no umbilical hernia, no ventral hernia - Musculoskeletal Musculoskeletal: generalized weakness - Psychiatric Psychiatric: A&O x's 3, appropriate affect Results CBC & Chem 7: 01/30/21 06:35 01/30/21 06:35 Labs: Abnormal Lab Results - Last 24 Hours (Table) 01/26/21 01/29/21 01/29/21 Range/Units 16:20 16:17 20:32 RBC (3.80-5.40) m/uL Hgb (11.4-16.0) gm/dL Hct (34.0-46.0) % MCHC (31.0-37.0) g/dL RDW (11.5-15.5) % BUN (7-17) mg/dL Creatinine (0.52-1.04) mg/dL Glucose (74-99) mg/dL POC Glucose (mg/dL) 242 H 256 H (75-99) mg/dL Calcium (8.4-10.2) mg/dL Crossmatch See Detail 01/30/21 01/30/21 01/30/21 Range/Units 06:01 06:35 06:35 RBC 2.81 L (3.80-5.40) m/uL Hgb 7.7 L (11.4-16.0) gm/dL Hct 25.3 L (34.0-46.0) % MCHC 30.4 L (31.0-37.0) g/dL RDW 17.6 H (11.5-15.5) % BUN 25 H (7-17) mg/dL Creatinine 2.72 H (0.52-1.04) mg/dL Glucose 210 H (74-99) mg/dL POC Glucose (mg/dL) 259 H (75-99) mg/dL Calcium 7.5 L (8.4-10.2) mg/dL Crossmatch 01/30/21 Range/Units 12:07 RBC (3.80-5.40) m/uL Hgb (11.4-16.0) gm/dL Hct (34.0-46.0) % MCHC (31.0-37.0) g/dL RDW (11.5-15.5) % BUN (7-17) mg/dL Creatinine (0.52-1.04) mg/dL Glucose (74-99) mg/dL POC Glucose (mg/dL) 258 H (75-99) mg/dL Calcium (8.4-10.2) mg/dL Crossmatch Assessment and Plan (1) Vaginal bleeding Narrative/Plan: Recurrent. Reviewed Deck Worker notes. Pending pathology. Transfuse for Hgb< 7. Current Visit: Yes Status: Acute Priority: High Code(s): N93.9 - ABNORMAL UTERINE AND VAGINAL BLEEDING, UNSPECIFIED SNOMED Code(s): 111171605 (2) Anticoagulated Narrative/Plan: Eliquis on hold for acute vaginal bleeding. Prophylactic dose of lovenox ordered Current Visit: Yes Status: Chronic Priority: High Code(s): Z79.01 - SENIOR LIVING (CURRENT) USE OF ANTICOAGULANTS SNOMED Code(s): 453308736 (3) DVT (deep venous thrombosis) Current Visit: No Status: Chronic Priority: Medium Code(s): I82.409 - ACUTE EMBOLISM AND THOMBOS UNSP DEEP VN UNSP LOWER EXTREMITY SNOMED Code(s): 711499574 (4) Iron deficiency anemia Narrative/Plan: Recent labs reviewed. Low iron sat and ferritin low normal. IV iron x 4 ordered. Current Visit: No Status: Chronic Priority: Medium Code(s): D50.9 - IRON DEFICIENCY ANEMIA, UNSPECIFIED SNOMED Code(s): 30307024 Plan: Lovenox prophylaxis dose started today as pt denies any vaginal bleeding since behavioral health director intervention. Once biopsy returned will make final rec for anticoagulation. Anemia work up from 01/26 shows iron deficiency-IV iron ordered
[2021-01-30 16:49] LABS: Glucose,Whole Blood 210 mg/dL (75-99)
[2021-01-30 19:59] LABS: Glucose,Whole Blood 306 mg/dL (75-99)
[2021-01-30] MEDS: clonazePAM 0.5 MG TAB PO SCH (20:52)
[2021-01-30] MEDS: SENNOSIDES-DOCUSATE SODIUM 1 EACH TAB PO SCH (20:52)
[2021-01-30] MEDS: ATORVASTATIN 20 MG TAB PO SCH (20:52)
[2021-01-30] MEDS: LEVOTHYROXINE 25 MCG TAB PO SCH (20:52)
[2021-01-30] MEDS: BACLOFEN 10 MG TAB PO SCH (20:53)
[2021-01-30] MEDS: INSULIN DETEMIR (LEVEMIR) 100 UNIT/ML SYR SQ SCH (20:54)
[2021-01-30] MEDS ORDERED: DARBEPOETIN ALFA 25 MCG/0.42 ML SYRINGE SQ SCH (22:00)
[2021-01-30 22:23] VITALS: RESP 18
--- NOTE | 2021-01-30 22:28 | P.PN ---
Subjective Progress Note Date: 01/30/21 01/30/2021 Patient evaluated today resting in bed. She states that the bleeding has stopped. Her main complaints today were lower back pain which is chronic and positional, rating a 4/10 and she gets relief with repositioning, she is also complaining of pain to her left hand which is chronic as well due to contractures. She was evaluated by oncology today who are recommending to wait for biopsy results to determine anticoagulation. Meanwhile, vascular was consulted for possible jumana filter placement if patient is not a candidate for anticoagulation going forward. Labs today WBC 5.7, Hgb 7.7, platelets 17.6, sodium 137, potassium 3.6, BUN 25, creatinine 2.72, glucose in the 200-300 range, calcium 7.5. Vital signs today, afebrile, heart rate 96, blood pressure 131/78, 100% on room air. She is on bag 1 of 4 of IV iron daily. She is also being followed by [facility], endometrium pathology pending. Patient has not had a BM since admission. ROS Constitutional: Denied any fatigue denied any fever. Cardio vascular: denied any chest pain, palpitations Gastrointestinal denied any nausea vomiting Pulmonary: Denied any shortness of breath cough Neurologic denied any new focal deficits All inpatient medications were reviewed and appropriate changes in these medications as dictated in the interval history and assessment and plan. PHYSICAL EXAMINATION: GENERAL: The patient is alert and oriented x3, not in any acute distress. Well developed, well nourished. Obese HEENT: Pupils are round and equally reacting to light. EOMI. No scleral icterus. No conjunctival pallor. Normocephalic, atraumatic. No pharyngeal erythema. No thyromegaly. CARDIOVASCULAR: S1 and S2 present. No murmurs, rubs, or gallops. PULMONARY: Chest is clear to auscultation, no wheezing or crackles. ABDOMEN: Soft, nontender, nondistended, normoactive bowel sounds. No palpable organomegaly. MUSCULOSKELETAL: No joint swelling or deformity. EXTREMITIES: No cyanosis, clubbing, mild peripheral edema NEUROLOGICAL: Gross neurological examination did not reveal any focal deficits. SKIN: No rashes. 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 Iron deficiency anemia Chronic medical debility Morbid Obesity Chronic left hand contracture Chronic right foot drop Chronic DVT; multiple, eliquis currently O/H Hyperlipidemia Muscle Spasm Essential hypertension Diabetes Mellitus type 2, uncontrolled with hyperglycemia Chronic pain; left hand and lower back Anxiety, Depression Chronic kidney disease stage 3 History of obstructive uropathy with left ureteral stent placement Bilateral nonobstructing renal calculi, currently asymptomatic Right renal atrophy GI Prophylaxis; DVT Prophylaxis; eliquis O/H, on lovenox Plan Pathology pending Monitor CBC/platelets, transfuse as needed Vascular consult for possible jumana filter placement Continue oral provera; switch to norethindrone outpatient Continue supportive care AM labs Objective - Vital Signs Vital signs: Vital Signs Temp 97.8 F 01/30/21 12:00 Pulse 87 01/30/21 12:00 Resp 18 01/30/21 12:00 BP 136/73 01/30/21 12:00 Pulse Ox 100 01/30/21 12:00 Intake & Output 01/29/21 01/30/21 01/30/21 18:59 06:59 18:59 Intake Total 1200 1270 420 Output Total 1775 1750 Balance -575 -480 420 Weight 108.5 kg Intake: Oral 1200 960 420 Blood Product 0 310 Rc As-1 Unit 0 310 [id number] Output: Urine 1775 1750 Uretheral (Rosado) 800 350 Other: Voiding Method Indwelling Catheter Indwelling Catheter Indwelling Catheter - Labs CBC & Chem 7: 01/30/21 06:35 01/30/21 06:35 Labs: Abnormal Lab Results - Last 24 Hours (Table) 01/26/21 01/29/21 01/29/21 Range/Units 16:20 16:17 20:32 RBC (3.80-5.40) m/uL Hgb (11.4-16.0) gm/dL Hct (34.0-46.0) % MCHC (31.0-37.0) g/dL RDW (11.5-15.5) % BUN (7-17) mg/dL Creatinine (0.52-1.04) mg/dL Glucose (74-99) mg/dL POC Glucose (mg/dL) 242 H 256 H (75-99) mg/dL Calcium (8.4-10.2) mg/dL Crossmatch See Detail 01/30/21 01/30/21 01/30/21 Range/Units 06:01 06:35 06:35 RBC 2.81 L (3.80-5.40) m/uL Hgb 7.7 L (11.4-16.0) gm/dL Hct 25.3 L (34.0-46.0) % MCHC 30.4 L (31.0-37.0) g/dL RDW 17.6 H (11.5-15.5) % BUN 25 H (7-17) mg/dL Creatinine 2.72 H (0.52-1.04) mg/dL Glucose 210 H (74-99) mg/dL POC Glucose (mg/dL) 259 H (75-99) mg/dL Calcium 7.5 L (8.4-10.2) mg/dL Crossmatch 01/30/21 Range/Units 12:07 RBC (3.80-5.40) m/uL Hgb (11.4-16.0) gm/dL Hct (34.0-46.0) % MCHC (31.0-37.0) g/dL RDW (11.5-15.5) % BUN (7-17) mg/dL Creatinine (0.52-1.04) mg/dL Glucose (74-99) mg/dL POC Glucose (mg/dL) 258 H (75-99) mg/dL Calcium (8.4-10.2) mg/dL Crossmatch
[2021-01-30] MEDS: traMADol 50 MG TAB PO PRN (23:04)
[2021-01-31] MEDS: HYDROcodone/APAP 7.5-325MG 1 EACH TAB PO PRN ×2 (02:31→16:09)
[2021-01-31] MEDS: traMADol 50 MG TAB PO SCH ×2 (04:57→12:18)
[2021-01-31 06:22] LABS: Glucose,Whole Blood 231 mg/dL (75-99)
[2021-01-31] MEDS: INSULIN ASPART (NovoLOG) 100 UNIT/ML VIAL SQ SCH ×6 (06:35→16:58)
[2021-01-31] MEDS: carvediloL 3.125 MG TAB PO SCH ×2 (07:56→16:09)
[2021-01-31] MEDS: medroxyPROGESTERone 10 MG TABLET PO SCH (07:56)
[2021-01-31] MEDS: FUROSEMIDE 20 MG TAB PO SCH (07:56)
[2021-01-31] MEDS: SODIUM BICARBONATE TAB 650 MG TAB PO SCH ×2 (07:56→16:09)
[2021-01-31] MEDS: MULTIVITAMINS, THERA 1 EACH TAB PO SCH (07:56)
[2021-01-31] MEDS: FLUoxetine HCL 20 MG CAP PO SCH (07:56)
[2021-01-31] MEDS: ENOXAPARIN 30 MG/0.3 ML SYRINGE SQ SCH (07:56)
[2021-01-31] MEDS: traMADol 50 MG TAB PO PRN (08:02)
[2021-01-31 08:49] LABS: Anisocytosis Slight; Basophils % (A) 0 %; Eosinophils # (A) 0.4 k/uL (0-0.7); Eosinophils % (A) 6 %; HCT 27.2 % (34.0-46.0); HGB 8.5 gm/dL (11.4-16.0); Hypochromasia Marked; Lymphocytes # (A) 1.5 k/uL (1.0-4.8); Lymphocytes % (A) 25 %; MCH 27.6 pg (25.0-35.0); MCHC 31.3 g/dL (31.0-37.0); MCV 88.3 fL (80.0-100.0); Monocytes # (A) 0.4 k/uL (0-1.0); Monocytes % (A) 6 %; Neutrophils # (A) 3.7 k/uL (1.3-7.7); Neutrophils % (A) 62 %; Platelet Count 194 k/uL (150-450); Poikilocytosis Moderate; RBC 3.08 m/uL (3.80-5.40); RDW 17.5 % (11.5-15.5)
[2021-01-31 09:12] LABS: Calcium 7.6 mg/dL (8.4-10.2); Potassium 3.4 mmol/L (3.5-5.1)
[2021-01-31] MEDS: SODIUM FERRIC GLUCONAT-SUCROSE 125 MG in SODIUM CHLORIDE 0.9% 100 ML IVPB SCH (09:31)
--- NOTE | 2021-01-31 09:34 | P.PN ---
Subjective Progress Note Date: 01/31/21 Principal diagnosis: Vaginal bleeding and anemia Post operative day 3 status post diagnostic hysteroscopy and D&C, hospital day 4. Radha reports no ongoing vaginal bleeding since the time of her procedure. She denies pelvic pain. She has last had a bowel movement 5 days ago. She is complaining of significant pain in her left hand due to chronic contractures. She did receive a single dose of prophylactic Lovenox and continues on Provera. Hemoglobin is improved today Objective - Vital Signs Vital signs: Vital Signs Temp 98.6 F 01/31/21 07:54 Pulse 94 01/31/21 07:54 Resp 18 01/31/21 07:54 BP 131/79 01/31/21 07:54 Pulse Ox 99 01/31/21 07:54 Intake & Output 01/30/21 01/31/21 01/31/21 18:59 06:59 18:59 Intake Total 660 485 128 Balance 660 485 128 Intake: IV 10 Invasive Line 3 10 Intake, IV Titration 485 Amount Sodium Ferric Gluconat- 485 Sucrose 125 mg In Sodium Chloride 0.9% 100 ml @ 100 mls/hr IVPB DAILY [facility] Rx#:[id number] Oral 660 118 Other: Voiding Method Indwelling Catheter Diaper Diaper # Voids 3 1 - Exam Radha is resting comfortably in bed. Sourav obese, soft and nontender. Examination of incontinence garment is negative for any blood. - Labs CBC & Chem 7: 01/31/21 07:46 01/31/21 07:46 Labs: Abnormal Lab Results - Last 24 Hours (Table) 01/30/21 01/30/21 01/30/21 Range/Units 12:07 16:48 19:58 RBC (3.80-5.40) m/uL Hgb (11.4-16.0) gm/dL Hct (34.0-46.0) % RDW (11.5-15.5) % Sodium (137-145) mmol/L Potassium (3.5-5.1) mmol/L BUN (7-17) mg/dL Creatinine (0.52-1.04) mg/dL Glucose (74-99) mg/dL POC Glucose (mg/dL) 258 H 210 H 306 H (75-99) mg/dL Calcium (8.4-10.2) mg/dL 01/31/21 01/31/21 01/31/21 Range/Units 06:21 07:46 07:46 RBC 3.08 L (3.80-5.40) m/uL Hgb 8.5 L (11.4-16.0) gm/dL Hct 27.2 L (34.0-46.0) % RDW 17.5 H (11.5-15.5) % Sodium 136 L (137-145) mmol/L Potassium 3.4 L (3.5-5.1) mmol/L BUN 24 H (7-17) mg/dL Creatinine 2.87 H (0.52-1.04) mg/dL Glucose 183 H (74-99) mg/dL POC Glucose (mg/dL) 231 H (75-99) mg/dL Calcium 7.6 L (8.4-10.2) mg/dL Assessment and Plan (1) Anemia Current Visit: Yes Status: Acute Code(s): D64.9 - ANEMIA, UNSPECIFIED SNOM ED Code(s): 700432041 (2) Anticoagulated Current Visit: Yes Status: Chronic Priority: High Code(s): Z79.01 - GENERAL PRODUCTION MANAGER (CURRENT) USE OF ANTICOAGULANTS SNOMED Code(s): 552486810 (3) Vaginal bleeding Current Visit: Yes Status: Acute Priority: High Code(s): N93.9 - ABNORMAL UTERINE AND VAGINAL BLEEDING, UNSPECIFIED SNOMED Code(s): 749726401 Plan: Postop day 3 status post diagnostic hysteroscopy and D&C, pathology report pending. Cautious resumption of anticoagulation. Continue oral progesterone. Patient may require some bowel management as she has last had a bowel movement 5 days ago. She also requests better pain control for her chronic left hand contractures as well as melatonin for sleep.
[2021-01-31 12:02] LABS: Glucose,Whole Blood 171 mg/dL (75-99)
[2021-01-31] MEDS ORDERED: Potassium Replacement Protocol 1 EACH MISC MISCELLANE PRN (12:27)
--- NOTE | 2021-01-31 12:54 | P.DS ---
Providers Date of admission: 01/26/21 20:08 Attending physician: Dennis Stacy Consults: 01/26/21 20:08 Consult Physician Urgent Consulting Provider: Regla Merrill Consult Reason/Comments: Chronic vaginal bleeding Do you want consulting provider notified?: Yes 01/29/21 16:40 Consult Physician Routine Consulting Provider: Atif Fowler Consult Reason/Comments: Anticoagulation with bleeding risk Do you want consulting provider notified?: Yes 01/30/21 15:32 Consult Physician Routine Consulting Provider: Antonio Eason Consult Reason/Comments: Evaluate for Mccarr filter placement Do you want consulting provider notified?: Yes Primary care physician: [facility] Course: Final Diagnosis Persistent intermittent vaginal bleeding; s/p D&C, pathology pending, currently no bleeding Acute severe blood loss anemia secondary to above, s/p 4 units PRBC - currently hgb 7.7 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 previous instrumentation Iron deficiency anemia Chronic medical debility Morbid Obesity Chronic left hand contracture Chronic right foot drop Chronic DVT; multiple, eliquis currently O/H Hyperlipidemia Muscle Spasm Essential hypertension Diabetes Mellitus type 2, uncontrolled with hyperglycemia Chronic pain; left hand and lower back Anxiety, Depression Chronic kidney disease stage 3 History of obstructive uropathy with left ureteral stent placement Bilateral nonobstructing renal calculi, currently asymptomatic Right renal atrophy Discharge Disposition Patient cleared medically by consultations for discharge today. Eliquis remains on hold, patient will D/C on lovenox and daily and will need to follow up after pathology is finalized for decision on resuming eliquis. Labs in 2 days. Hospital Course This is a pleasant 35 year old female who presents to the hospital from [facility] where she resides with complaints of persistant vaginal bleeding. Hemglobin was found to be 4.2 and patient subsequently received 4 units of PRBCs. Patient is a past medical history significant for CVA/TIA, myocardial infarction, DVT. Patient was also in a coma from October to December 2014 after suffering from a stroke, chronic kidney disease, diabetes mellitus typw2, DVT, hypertension, anxiety, depression. Patient was consulted to [facility] who performed a D&C 01/28/2021 for dysfunctional uterine bleeding and anemia. Procedure revealed abnormal tissue versus Asherman syndrome with no evidence of uterine perforation and biopsies taken. Patient was also consulted to hematology services for anticoagulation recommendations. Patient was noted to be iron deficient in the past and was started on IV sodium ferric gluconate infusions, she received 2 bags and was switched to oral iron BID on discharge. Patient also with complaints of chronic pain her left hand due to muscle contractures as well as lower back which is chronic. Patient was requesting an increase in norco dosing, however she will be DC'd on same tramadal and norco dosing and can follow up with Primary care about this after discharge. Patient had an indwelling catheter placed this admission, and was removed. She has had no difficulties with voiding post removal. Patient has had no more vaginal bleeding post procedure. She is cleared to follow up with consultations and she would also like to be discharged. 01/31/2021 Patient evaluated today she is awake alert and oriented. Lungs are clear, she remains on 2L NC with an oxygen saturation of 99%. Abdomen is soft, nontender, no distended. S1 S2 auscultated. Blood pressure today 133/72, afebrile, heart rate 84. Labs today include a hemoglobin of 8.5, sodium 136, potassium 3.4, BUN 24, creatinine 2.87. Please see medication reconciliation for a list of current medications. Thank you for allowing us to participate in the care of this patient. Patient Condition at Discharge: Fair Plan - Discharge Summary Discharge Rx Participant: No New Discharge Prescriptions: New Enoxaparin [Lovenox] 40 mg SQ DAILY each polyethylene glycoL 3350 [Miralax] 17 gm PO DAILY #30 packet Melatonin 5 mg PO HS tablet Ferrous Sulfate [Feosol] 325 mg PO BID #60 tab Continue FLUoxetine HCL [PROzac] 20 mg PO DAILY@0800 Multivitamins, Thera [Multivitamin (formulary)] 1 tab PO DAILY@0800 Levothyroxine Sodium [Synthroid] 25 mcg PO HS@2000 Ergocalciferol (Vitamin D2) [Drisdol (50,000 Iu)] 50,000 unit PO QMONTHLY Acetaminophen Tab [Tylenol] 650 mg PO Q6H PRN PRN Reason: Pain Sennosides/Docusate Sodium [Senna Plus 8.6-50 mg Softgel] 2 tab PO HS@2000 Carvedilol [Coreg] 3.125 mg PO BID@0800,1600 Insulin Glargine,Hum.rec.anlog [Lantus Solostar Pen] 24 unit SQ HS@2000 Furosemide [Lasix] 20 mg PO DAILY@0800 clonazePAM [KlonoPIN] 0.5 mg PO HS@1999 Sodium Bicarbonate Tab 650 mg PO BID@0800,1600 traMADol HCl [Ultram] 50 mg PO TID@0500,1300,2100 3 Days #9 tab Insulin Aspart [NovoLOG] See Protocol SQ ACHS@07,11,16,20 amLODIPine [Norvasc] 5 mg PO DAILY@0800 Baclofen 10 mg PO HS@1999 Atorvastatin [Lipitor] 20 mg PO HS@1999 Norethindrone [Chani] 0.35 mg PO DAILY@1400 clomiPRAMINE [Anafranil] 50 mg PO HS@1999 Darbepoetin Kurtis [Aranesp] 25 mcg SQ MO@2200 HYDROcodone/APAP 7.5-325MG [[place] 7.5-325] 1 tab PO Q12HR PRN 3 Days #6 tab PRN Reason: Pain Discontinued Apixaban [Eliquis] 5 mg PO BID@0800,1600 traMADol HCl [Ultram] 50 mg PO Q8H PRN PRN Reason: Breakthrough Pain Discharge Medication List Ergocalciferol (Vitamin D2) [Drisdol (50,000 Iu)] 50,000 unit PO QMONTHLY 02/15/18 [History] FLUoxetine HCL [PROzac] 20 mg PO DAILY@0800 02/15/18 [History] Levothyroxine Sodium [Synthroid] 25 mcg PO HS@199902/15/18 [History] Multivitamins, Thera [Multivitamin (formulary)] 1 tab PO DAILY@0800 02/15/18 [History] Acetaminophen Tab [Tylenol] 650 mg PO Q6H PRN 09/03/18 [History] Baclofen 10 mg PO HS@199907/25/20 [History] Carvedilol [Coreg] 3.125 mg PO BID@0800,1600 07/25/20 [History] Insulin Aspart [NovoLOG] See Protocol SQ ACHS@07,11,16,20 07/25/20 [History] Insulin Glargine,Hum.rec.anlog [Lantus Solostar Pen] 24 unit SQ HS@199907/25/20 [History] Sennosides/Docusate Sodium [Senna Plus 8.6-50 mg Softgel] 2 tab PO HS@199907/25/20 [History] amLODIPine [Norvasc] 5 mg PO DAILY@0800 07/25/20 [History] Atorvastatin [Lipitor] 20 mg PO HS@199909/29/20 [History] Furosemide [Lasix] 20 mg PO DAILY@0800 09/29/20 [History] Sodium Bicarbonate Tab 650 mg PO BID@0800,1600 09/29/20 [History] clonazePAM [KlonoPIN] 0.5 mg PO HS@199909/29/20 [History] Darbepoetin Kurtis [Aranesp] 25 mcg SQ MO@2200 01/26/21 [History] Norethindrone [Chani] 0.35 mg PO DAILY@1400 01/26/21 [History] clomiPRAMINE [Anafranil] 50 mg PO HS@199901/26/21 [History] Enoxaparin [Lovenox] 40 mg SQ DAILY each 01/31/21 [Rx] Ferrous Sulfate [Feosol] 325 mg PO BID #60 tab 01/31/21 [Rx] HYDROcodone/APAP 7.5-325MG [[place] 7.5-325] 1 tab PO Q12HR PRN 3 Days #6 tab 01/31/21 [Rx] Melatonin 5 mg PO HS tablet 01/31/21 [Rx] polyethylene glycoL 3350 [Miralax] 17 gm PO DAILY #30 packet 01/31/21 [Rx] traMADol HCl [Ultram] 50 mg PO TID@0500,1300,2100 3 Days #9 tab 01/31/21 [Rx] Follow up Appointment(s)/Referral(s): Jen Rojo MD [STAFF PHYSICIAN] - 1 Week Atif Fowler MD [STAFF PHYSICIAN] - 1 Week Moncho Suarez DO [Primary Care Provider] - 1-2 days Ambulatory/Diagnostic Orders: Basic Metabolic Panel [LAB.AMB] Time Frame: 2 Days, Location: None Selected Complete Blood Count w/diff [LAB.AMB] Time Frame: 2 Days, Location: None Selected Activity/Diet/Wound Care/Special Instructions: Continue on Lovenox daily until pathology is finalized. Follow up with consultations to determine if patient is eligible resume on eliquis Discharge Disposition: TRANSFER TO SNF/ECF
[2021-01-31] MEDS: POTASSIUM CHLORIDE ER 20 MEQ TAB.ER PO SCH ×2 (13:05→13:06)
[2021-01-31 15:49] VITALS: BP 128/78; PULSE 79; TEMP 97.8
[2021-01-31 16:48] LABS: Glucose,Whole Blood 230 mg/dL (75-99)
--- NOTE | 2021-01-31 18:46 | P.PN ---
Subjective Progress Note Date: 01/31/21 Principal diagnosis: anemia In f/u today pt cont to deny any vaginal bleeding, no other bleeding. She feels good and is looking forward to DC. She has been tolerating the IV iron well Objective - Vital Signs Vital signs: Vital Signs Temp 98.6 F 01/31/21 07:54 Pulse 94 01/31/21 07:54 Resp 18 01/31/21 07:54 BP 131/79 01/31/21 07:54 Pulse Ox 99 01/31/21 07:54 Intake & Output 01/30/21 01/31/21 01/31/21 18:59 06:59 18:59 Intake Total 660 485 128 Balance 660 485 128 Intake: IV 10 Invasive Line 3 10 Intake, IV Titration 485 Amount Sodium Ferric Gluconat- 485 Sucrose 125 mg In Sodium Chloride 0.9% 100 ml @ 100 mls/hr IVPB DAILY [facility] Rx#:[id number] Oral 660 118 Other: Voiding Method Indwelling Catheter Diaper Diaper # Voids 3 1 - Constitutional General appearance: Present: cooperative, morbidly obese - EENT Eyes: Present: anicteric sclerae, EOMI ENT: Present: hearing grossly normal - Respiratory Details: resp even and unlabored - Musculoskeletal Musculoskeletal: Present: generalized weakness - Psychiatric Psychiatric: Present: A&O x's 3, appropriate affect, intact judgment & insight - Labs CBC & Chem 7: 01/31/21 07:46 01/31/21 07:46 Labs: Abnormal Lab Results - Last 24 Hours (Table) 01/30/21 01/30/21 01/30/21 Range/Units 12:07 16:48 19:58 RBC (3.80-5.40) m/uL Hgb (11.4-16.0) gm/dL Hct (34.0-46.0) % RDW (11.5-15.5) % Sodium (137-145) mmol/L Potassium (3.5-5.1) mmol/L BUN (7-17) mg/dL Creatinine (0.52-1.04) mg/dL Glucose (74-99) mg/dL POC Glucose (mg/dL) 258 H 210 H 306 H (75-99) mg/dL Calcium (8.4-10.2) mg/dL 01/31/21 01/31/21 01/31/21 Range/Units 06:21 07:46 07:46 RBC 3.08 L (3.80-5.40) m/uL Hgb 8.5 L (11.4-16.0) gm/dL Hct 27.2 L (34.0-46.0) % RDW 17.5 H (11.5-15.5) % Sodium 136 L (137-145) mmol/L Potassium 3.4 L (3.5-5.1) mmol/L BUN 24 H (7-17) mg/dL Creatinine 2.87 H (0.52-1.04) mg/dL Glucose 183 H (74-99) mg/dL POC Glucose (mg/dL) 231 H (75-99) mg/dL Calcium 7.6 L (8.4-10.2) mg/dL Assessment and Plan (1) Vaginal bleeding Narrative/Plan: Recurrent. 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 Pending pathology. Transfuse for Hgb< 7. Status: Acute Priority: High Code(s): N93.9 - ABNORMAL UTERINE AND VAGINAL BLEEDING, UNSPECIFIED SNOMED Code(s): 599023240 (2) Anticoagulated Narrative/Plan: Eliquis on hold for acute vaginal bleeding. Prophylactic dose of lovenox ordered. 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 Low iron sat and ferritin low normal. IV iron x 4 ordered, I think pt received 2 or 3 doses before DC. Status: Chronic Priority: Medium Code(s): D50.9 - IRON DEFICIENCY ANEMIA, UNSPECIFIED SNOMED Code(s): 57250225 Plan: Lovenox prophylaxis dose started yesterday. Dose should be 40mg, changed order today. Briefly discussed with IM-going to discharge on 40mg SQ lovenox for now. Once biopsy returned will make final rec for anticoagulation. Anemia work up from 01/26 showed iron deficiency-IV iron being given
[2021-01-31] MEDS ORDERED: INSULIN DETEMIR (LEVEMIR) 100 UNIT/ML SYR SQ SCH (20:00)
[2021-01-31] MEDS ORDERED: MELATONIN 5 MG TABLET PO SCH (21:00)
[2021-02-01] MEDS ORDERED: ENOXAPARIN 40 MG/0.4 ML SYRINGE SQ SCH (09:00)
[2021-02-10] MEDS ORDERED: ERGOCALCIFEROL 1,250 MCG (50,000 IU) CAPSULE PO SCH (09:00)
== END 2021-01-31 18:36 | DRG 744 ==
LOC: EC 16:06 → 3SCARD 20:08
PROVIDERS: ADMIT Hospitalist; ATTEND Hospitalist
PROC: 30233N1 Transfusion of Nonautologous Red Blood Cells into Peripheral Vein, Percutaneous Approach (ICD-10-PCS; 2021-01-26)
PROC: 0UDB7ZX Extraction of Endometrium, Via Natural or Artificial Opening, Diagnostic (ICD-10-PCS; principal; 2021-01-28 13:00)
PROC: 0UJD8ZZ Inspection of Uterus and Cervix, Via Natural or Artificial Opening Endoscopic (ICD-10-PCS; principal; 2021-01-28 13:00)
DX: N93.8 Other specified abnormal uterine and vaginal bleeding (principal); D62 Acute posthemorrhagic anemia; Z68.41 Body mass index [BMI] 40.0-44.9, adult; E11.22 Type 2 diabetes mellitus with diabetic chronic kidney disease; E11.65 Type 2 diabetes mellitus with hyperglycemia; E66.01 Morbid (severe) obesity due to excess calories; N18.30 Chronic kidney disease, stage 3 unspecified; Z79.4 Long term (current) use of insulin; Z20.822 Contact with and (suspected) exposure to COVID-19; I12.9 Hypertensive chronic kidney disease with stage 1 through stage 4 chronic kidney disease, or unspecified chronic kidney disease; N85.6 Intrauterine synechiae; E28.2 Polycystic ovarian syndrome; M24.542 Contracture, left hand; E03.9 Hypothyroidism, unspecified; M21.371 Foot drop, right foot; E78.5 Hyperlipidemia, unspecified; N20.0 Calculus of kidney; N13.9 Obstructive and reflux uropathy, unspecified; M62.838 Other muscle spasm; M25.571 Pain in right ankle and joints of right foot; M79.642 Pain in left hand; R41.89 Other symptoms and signs involving cognitive functions and awareness; G89.29 Other chronic pain; M54.50 Low back pain, unspecified; F32.A Depression, unspecified; F41.9 Anxiety disorder, unspecified; F41.0 Panic disorder [episodic paroxysmal anxiety]; I25.2 Old myocardial infarction; R32 Unspecified urinary incontinence; Z79.890 Hormone replacement therapy; Z79.3 Long term (current) use of hormonal contraceptives; Z79.899 Other long term (current) drug therapy; Z86.718 Personal history of other venous thrombosis and embolism; Z86.73 Personal history of transient ischemic attack (TIA), and cerebral infarction without residual deficits; Z87.19 Personal history of other diseases of the digestive system; Z90.49 Acquired absence of other specified parts of digestive tract; Z86.19 Personal history of other infectious and parasitic diseases; Z98.84 Bariatric surgery status; Z87.442 Personal history of urinary calculi; Z87.891 Personal history of nicotine dependence; Z74.01 Bed confinement status; Z98.890 Other specified postprocedural states; Z88.6 Allergy status to analgesic agent; Z88.8 Allergy status to other drugs, medicaments and biological substances; Z80.1 Family history of malignant neoplasm of trachea, bronchus and lung
CPT/HCPCS: 36415; 71046; 73502; 80048; 80053; 81025; 84484; 85025; 85027; 85610; 85730; 86850; 86900; 86901; 86920; 87635; 88305; 93005; 94760; 96374; 96375; 99291

== ENCOUNTER 2022-02-05 23:58 | Emergency (ER) | payer OTHER ==
[2022-02-06 00:06] VITALS: RESP 20; TEMP 97.9
[2022-02-06] MEDS ORDERED: KETOROLAC 15 MG/ML 1 ML VIAL IM STA (00:08)
--- NOTE | 2022-02-06 00:53 | XR ---
EXAMINATION TYPE: XR knee limited bilateral DATE OF EXAM: 02/06/2022 COMPARISON: NONE HISTORY: Fall. Pain TECHNIQUE: 2 views each knee FINDINGS: There is some deformity of the lateral tibial condyle the right knee. Lateral tibial platea u fracture is possible. The left knee appears to be anatomic. Exam is limited by only frontal projections. No definite fractu re seen of the left knee. IMPRESSION: There is possible fracture of the lateral tibial plateau of the right knee. Additional vi ews recommended for confirmation. No evidence of a fracture of the left knee. Limited exam.
[2022-02-06] MEDS ORDERED: MORPHINE SULFATE 4 MG/ML SYRINGE IM STA (00:58)
--- NOTE | 2022-02-06 01:51 | CT ---
EXAMINATION TYPE: CT knee RT wo con DATE OF EXAM: 02/06/2022 COMPARISON: None HISTORY: fall CT DLP: 314.2 mGycm Automated exposure control for dose reduction was used. Images obtained from the mid femur to the mid tibia without contrast. There is osteopenia. There is a knee joint effusion. The patella is intact. The distal femur is intac t. The tibial condyles show no displaced fracture. The fibula is intact. No evidence of a soft tissue mass. There is subcutaneous edema around the knee. IMPRESSION: Knee joint effusion and osteopenia. Subcutaneous edema. Exam fails to demonstrate evidence of a knee joint fracture. The tibial condyles show no evidence of depressed fracture.
--- NOTE | 2022-02-06 02:02 | CT ---
EXAMINATION TYPE: CT knee LT wo con DATE OF EXAM: 02/06/2022 COMPARISON: None HISTORY: fall CT DLP: 314.2 mGycm Automated exposure control for dose reduction was used. Images of the left knee were obtained from the mid femur to the mid tibia with no contrast. There is osteopenia. There is evidence of a nondisplaced fracture of the posterior cortex of the dist al femoral metaphysis extending into the intercondylar distal femur. There is mild knee joint effusio n. The proximal tibia and fibula appear intact. The knee joint spaces are slightly narrowed medially. The patella is intact. There is mild subcutaneous edema around the lower thigh. IMPRESSION: Nondisplaced hairline fracture of the distal femur involving the intercondylar distal femur. Knee joint effusion.
--- NOTE | 2022-02-06 02:15 | ED ---
General Adult HPI - General Chief complaint: Fall Stated complaint: Knee Pain Time Seen by Provider: 02/06/22 00:00 Source: patient, EMS Mode of arrival: EMS Limitations: no limitations - History of Present Illness Initial comments: This is a 36-year-old female with an extensive past medical history who is bedbound and is at a nursing facility presents emergency department via EMS after she reportedly rolled off of her bed, landing on the ground. The patient stated that she did not remember what happened and stated that she rolled off the bed, landing on her bilateral knees. The patient stated that she is unable to move her legs and has been like this since 2017 including being bed ridden. The patient cannot tell me why she was like this but stated that she had bilateral knee pain. The patient denied hitting her head and denied losing consciousness. The patient was however resting in bed comfortably however when she moved she was screaming in pain. The patient was redirectable however and denied any other acute pain or trauma. - Related Data Home Medications Medication Instructions Recorded Confirmed Ergocalciferol (Vitamin D2) 50,000 unit PO QMONTHLY 02/15/18 01/26/21 [Drisdol (50,000 Iu)] FLUoxetine HCL [PROzac] 20 mg PO DAILY@0800 02/15/18 01/26/21 Levothyroxine Sodium [Synthroid] 25 mcg PO HS@199902/15/18 01/26/21 Multivitamins, Thera [Multivitamin 1 tab PO DAILY@0800 02/15/18 01/26/21 (formulary)] Acetaminophen Tab [Tylenol] 650 mg PO Q6H PRN 09/03/18 01/26/21 Baclofen 10 mg PO HS@199907/25/20 01/26/21 Insulin Aspart [NovoLOG] See Protocol SQ ACHS@07,11,16,20 07/25/20 01/26/21 Insulin Glargine,Hum.rec.anlog 24 unit SQ HS@199907/25/20 01/26/21 [Lantus Solostar Pen] Sennosides/Docusate Sodium [Senna 2 tab PO HS@199907/25/20 01/26/21 Plus 8.6-50 mg Softgel] amLODIPine [Norvasc] 5 mg PO DAILY@0800 07/25/20 01/26/21 carvediloL [Coreg] 3.125 mg PO BID@0800,1600 07/25/20 01/26/21 Atorvastatin [Lipitor] 20 mg PO HS@199909/29/20 01/26/21 Furosemide [Lasix] 20 mg PO DAILY@0800 09/29/20 01/26/21 Sodium Bicarbonate Tab 650 mg PO BID@0800,1600 09/29/20 01/26/21 clonazePAM [KlonoPIN] 0.5 mg PO HS@199909/29/20 01/26/21 Darbepoetin Kurtis [Aranesp] 25 mcg SQ MO@2200 01/26/21 01/26/21 Norethindrone [Chani] 0.35 mg PO DAILY@1400 01/26/21 01/26/21 clomiPRAMINE [Anafranil] 50 mg PO HS@199901/26/21 01/26/21 Previous Rx's Medication Instructions Recorded Enoxaparin [Lovenox] 40 mg SQ DAILY each 01/31/21 Ferrous Sulfate [Feosol] 325 mg PO BID #60 tab 01/31/21 HYDROcodone/APAP 7.5-325MG [[place] 1 tab PO Q12HR PRN 3 Days #6 tab 01/31/21 7.5-325] Melatonin 5 mg PO HS tablet 01/31/21 polyethylene glycoL 3350 [Miralax] 17 gm PO DAILY #30 packet 01/31/21 traMADol HCl [Ultram] 50 mg PO TID@0500,1300,2100 3 Days 01/31/21 #9 tab Allergies Allergy/AdvReac Type Severity Reaction Status Date / Time aspirin Allergy Rash/Hives Verified 01/26/21 16:54 sertraline HCl [From Zoloft] Allergy Unknown Verified 01/26/21 16:54 zolpidem tartrate Allergy Unknown Verified 01/26/21 16:54 [From Ambien] gabapentin [From Neurontin] AdvReac Severe SEVERE Verified 01/26/21 16:54 AGITATION ibuprofen [From Motrin] AdvReac AVOIDS D/T Verified 01/26/21 16:54 KIDNEY FUNCTION Review of Systems ROS Statement: Those systems with pertinent positive or pertinent negative responses have been documented in the HPI. ROS Other: All systems not noted in ROS Statement are negative. Past Medical History Past Medical History: CVA/TIA, Deep Vein Thrombosis (DVT), Myocardial Infarction ([place]) Additional Past Medical History / Comment(s): morbid obesity, pancreatitis, history of coma - 10/24/14 - until end december after suffering from a stroke. Last Myocardial Infarction Date:: 10/2014 History of Any Multi-Drug Resistant Organisms: ESBL, Other MDRO Date of last positivie culture/infection: 07/16/20 ESBL E.coli MDRO Source:: Urine-ESBL Past Surgical History: Cholecystectomy Additional Past Surgical History / Comment(s): Cystoscopy with placement of left double-J catheter 02/16/2018, Gastric bypass 2016 Past Anesthesia/Blood Transfusion Reactions: No Reported Reaction Past Psychological History: Anxiety, Depression, Panic Disorder Smoking Status: Never smoker Past Alcohol Use History: None Reported Additional Past Alcohol Use History / Comment(s): patient smoked in high school Past Drug Use History: Marijuana - Past Family History Father History Unknown: Yes Family Medical History: Cancer Additional Family Medical History / Comment(s): lung General Exam Limitations: no limitations, physical limitation General appearance: alert, in no apparent distress Head exam: Present: atraumatic, normocephalic, normal inspection Eye exam: Present: normal appearance, PERRL Pupils: Present: normal accommodation ENT exam: Present: normal exam, normal oropharynx, mucous membranes moist Neck exam: Present: normal inspection, full ROM Respiratory exam: Present: normal lung sounds bilaterally Cardiovascular Exam: Present: regular rate, normal rhythm, normal heart sounds GI/Abdominal exam: Present: soft, normal bowel sounds Extremities exam: Present: normal inspection, full ROM, tenderness (Bilateral superficial anterior knee pain), normal capillary refill Back exam: Present: normal inspection, full ROM Neurological exam: Present: alert, oriented X3, CN II-XII intact Psychiatric exam: Present: normal affect, normal mood Skin exam: Present: warm, dry Course Vital Signs 02/06/22 02/06/22 02/06/22 00:03 01:39 03:01 Temperature 97.9 F Pulse Rate 120 H 112 H 111 H Respiratory 20 20 20 Rate Blood Pressure 122/76 112/79 105/81 O2 Sat by Pulse 92 L 100 100 Oximetry Medical Decision Making - Medical Decision Making Was pt. sent in by a medical professional or institution? @ -Sent by [facility] Did you speak to anyone other than the patient for history? @ -EMS Did you review nursing and triage notes? @ -Nursing notes were reviewed. Were old charts reviewed? @ -Previous admissions and nursing notes were reviewed Differential Diagnosis? @ -Lower extremity fractures, contusions, strain EKG interpreted by me (3pts min.)? @ -[none] X-rays interpreted by me (1pt min.)? @ -An x-ray of the bilateral knees were obtained and were interpreted by myself showing a possible fracture of the lateral tibial plateau the right knee. Additional views recommended however the patient could not move her legs at all secondary to her baseline since 2017. There is no evidence of a fracture of the left knee. Due to the limited exam and the possible setting of a fracture, CT scans were obtained. CT interpreted by me (1pt min.)? @ -Computed tomography scan of the right knee was obtained and was interpreted by myself showing knee joint effusion and osteopenia. There was no fracture noted. The tibial condyles show no evidence of depressed fracture. CT of the left knee was obtained and was interpreted by myself and showed a nondisplaced hairline fracture of the distal femur involving the intercondylar distal femur. U/S interpreted by me (1pt. min.)? @ -[none] What testing was considered but not performed? (CT, X-rays, U/S, labs)? Why? @None What meds were considered but not given? Why? @ -[none] Did you discuss the management of the patient with other professionals? @ -No Did you reconcile home meds? @ -[none] Was smoking cessation discussed for >3mins.? @ -[none] Was critical care preformed (if so, how long)? @ -[none] Were there social determinants of health that impacted care today? How? (Homelessness, low income, unemployed, alcoholism, drug addiction, transportation, low edu. Level, literacy, decrease access to med. care, usp, rehab)? @ -Patient is bed bound, extensive past medical history Was there de-escalation of care discussed even if they declined? (Discuss DNR or withdrawal of care, Hospice)? @ -No What co-morbidities impacted this encounter? (DM, HTN, Smoking, COPD, CAD, Cance r, CVA, Hep., AIDS, mental health diagnosis, sleep apnea, morbid obesity)? @ -Patient is bed bound, extensive past medical history including decreased range of motion of the bilateral lower extremities Was patient admitted / discharged? @ -The patient was seen and evaluated emergency department. Physical exam, the patient was resting in bed without any acute distress. Vital signs admission were stable. Anytime the patient was moved however she did have bilateral knee pain. X-rays were obtained and were questionable for fractures and were limited in the evaluation. CT scans of the bilateral knees were obtained and did show a distal fracture of the left femur and because the patient was bed bound and did not move her legs at baseline, the patient was placed in a knee immobilize of the left leg. The patient received 1 dose of pain medications and remained stable. The patient was deemed stable for discharge back to the facility. The patient was advised to follow-up with the with exertion. The patient was also advised report back to the emergency department if her pain became acutely worse. The patient was agreeable to this and was discharged back to the nursing facility in stable condition. Undiagnosed new problem with uncertain prognosis? @ -[none] Drug Therapy requiring intensive monitoring for toxicity (Heparin, Nitro, Insulin, Cardizem)? @ -[none] Were any procedures done? @ -[none] Diagnosis/symptom? @ -Right distal femur hairline fracture Acute, or Chronic, or Acute on Chronic? @ -Acute Uncomplicated (without systemic symptoms) or Complicated (systemic symptoms)? @ -Uncomplicated Side effects of treatment? @ -[none] Exacerbation, Progression, or Severe Exacerbation] @ -[no] Poses a threat to life or bodily function? @ -[no] Disposition Clinical Impression: Femoral distal fracture Disposition: HOME SELF-CARE Condition: Stable Instructions (If sedation given, give patient instructions): Leg Fracture (ED) Is patient prescribed a controlled substance at d/c from ED?: No Referrals: Moncho Suarez DO [Primary Care Provider] - 1-2 days Archana Osorio DO [Doctor of Osteopathic Medicine] - 1-2 days Time of Disposition: 02:10
[2022-02-06 03:02] VITALS: BP 105/81; PULSE 111
== END 2022-02-06 03:01 | disposition home or self-care (01) ==
LOC: EC 23:58
DX: S72.492A Other fracture of lower end of left femur, initial encounter for closed fracture (principal); Z86.73 Personal history of transient ischemic attack (TIA), and cerebral infarction without residual deficits; Z86.718 Personal history of other venous thrombosis and embolism; I25.2 Old myocardial infarction; F41.9 Anxiety disorder, unspecified; F32.A Depression, unspecified; F12.90 Cannabis use, unspecified, uncomplicated; Z88.6 Allergy status to analgesic agent; Z88.2 Allergy status to sulfonamides; Z88.8 Allergy status to other drugs, medicaments and biological substances; Z79.4 Long term (current) use of insulin; Z79.899 Other long term (current) drug therapy; W06.XXXA Fall from bed, initial encounter
CPT/HCPCS: 73560; 73700 ×2; 99285; 96372 ×2; L1830; J2270; J1885

== ENCOUNTER 2022-02-06 08:49 | Inpatient (IN) | payer OTHER ==
[2022-02-06] MEDS ORDERED: SODIUM CHLORIDE 0.9% 500 ML 500 ML IV ONE (09:26)
--- NOTE | 2022-02-06 09:44 | ED ---
Altered Mental Status HPI - General Chief Complaint: Altered Mental Status Stated Complaint: AMS,Fall Time Seen by Provider: 02/06/22 09:05 Source: EMS, old records reviewed Mode of arrival: EMS - History of Present Illness Initial Comments: 36-year-old female past medical history of stroke with right sided deificits, cognitive delay, gastric bypass, DVT on anticoagulation who presents to the emergency room for altered mental status. Patient had a fall from bed at her extended care facility yesterday where she landed on her bilateral knees. She denied hitting her head. She had an x-ray and CT done of her knee which demonstrated nondisplaced hairline fracture of the distal femur involving the intercondylar distal femur. She was placed in a knee immobilizer, given 30 mg IM Toradol and 4 mg IM morphine at 1 AM. She was then transferred back to her facility. Nurse's morning states that it was difficult to arouse her. I reviewed the patient's medical record which demonstrated that she got 5 mg of baclofen at 5 AM, 5 mg of baclofen at 1 PM, and 10 mg of baclofen at 8 PM. Patient was not discharged back on any medications. Nurse reports that the patient did hit her head when she fell. Patient's is delayed in her answering however does answer questions appropriately. No reported fevers. Patient wears oxygen - 2L at all times since she had covid. No other alleviating, precipitating or modifying factors - Related Data Home Medications Medication Instructions Recorded Confirmed FLUoxetine HCL [PROzac] 20 mg PO DAILY 02/15/18 02/06/22 Levothyroxine Sodium [Synthroid] 25 mcg PO HS@199902/15/18 02/06/22 Multivitamins, Thera [Multivitamin 1 tab PO DAILY 02/15/18 02/06/22 (formulary)] Acetaminophen Tab [Tylenol] 650 mg PO Q6H PRN 09/03/18 02/06/22 Baclofen 10 mg PO HS@199907/25/20 02/06/22 Insulin Glargine,Hum.rec.anlog 27 unit SQ HS@199907/25/20 02/06/22 [Lantus Solostar Pen] Sennosides/Docusate Sodium [Senna 2 cap PO HS@199907/25/20 02/06/22 Plus 8.6-50 mg Softgel] amLODIPine [Norvasc] 5 mg PO DAILY 07/25/20 02/06/22 carvediloL [Coreg] 3.125 mg PO BID 07/25/20 02/06/22 Atorvastatin [Lipitor] 20 mg PO HS@199909/29/20 02/06/22 clonazePAM [KlonoPIN] 0.5 mg PO HS@199909/29/20 02/06/22 Darbepoetin Kurtis [Aranesp] 25 mcg SQ MO@2200 01/26/21 02/06/22 Norethindrone [Chani] 0.35 mg PO DAILY 01/26/21 02/06/22 clomiPRAMINE [Anafranil] 50 mg PO HS 01/26/21 02/06/22 Acetaminophen Tab [Tylenol Tab] 500 mg PO TID@0800,1200,1800 02/06/22 02/06/22 Apixaban [Eliquis] 5 mg PO BID 02/06/22 02/06/22 Baclofen 5 mg PO BID@0500,1300 02/06/22 02/06/22 Ergocalciferol [Vitamin D2 (1250 1,250 mcg PO Q14D 02/06/22 02/06/22 Mcg = 97875 Iu)] HYDROcodone/APAP 7.5-325MG [[place] 1 tab PO Q8H PRN 02/06/22 02/06/22 7.5-325] Magnesium Hydroxide [Milk of 2,400 mg PO Q72H PRN 02/06/22 02/06/22 Magnesia] Melatonin 5 mg PO HS@199902/06/22 02/06/22 Na Phos,M-B/Na Phos,Di-Ba [Fleet 133 ml RECTAL DAILY PRN 02/06/22 02/06/22 Adult] Sodium Bicarbonate 650 mg PO BID 02/06/22 02/06/22 bisacodyL [Dulcolax] 10 mg RECTAL DAILY PRN 02/06/22 02/06/22 glipiZIDE XL [Glucotrol XL] 2.5 mg PO DAILY@0700 02/06/22 02/06/22 polyethylene glycoL 3350 [Miralax] 17 gm PO DAILY 02/06/22 02/06/22 Previous Rx's Medication Instructions Recorded Ferrous Sulfate [Feosol] 325 mg PO BID #60 tab 01/31/21 Allergies Allergy/AdvReac Type Severity Reaction Status Date / Time aspirin Allergy Rash/Hives Verified 02/06/22 10:50 sertraline HCl [From Zoloft] Allergy Unknown Verified 02/06/22 10:50 zolpidem tartrate Allergy Unknown Verified 02/06/22 10:50 [From Ambien] gabapentin [From Neurontin] AdvReac Severe SEVERE Verified 02/06/22 10:50 AGITATION ibuprofen [From Motrin] AdvReac AVOIDS D/T Verified 02/06/22 10:50 KIDNEY FUNCTION Review of Systems ROS Statement: Those systems with pertinent positive or pertinent negative responses have been documented in the HPI. ROS Other: All systems not noted in ROS Statement are negative. Past Medical History Past Medical History: CVA/TIA, Deep Vein Thrombosis (DVT), Myocardial Infarction ([place]) Additional Past Medical History / Comment(s): morbid obesity, pancreatitis, history of coma - 10/24/14 - until end december after suffering from a stroke. Last Myocardial Infarction Date:: 10/2014 History of Any Multi-Drug Resistant Organisms: ESBL, Other MDRO Date of last positivie culture/infection: 07/16/20 ESBL E.coli MDRO Source:: Urine-ESBL Past Surgical History: Cholecystectomy Additional Past Surgical History / Comment(s): Cystoscopy with placement of left double-J catheter 02/16/2018, Gastric bypass 2016 Past Anesthesia/Blood Transfusion Reactions: No Reported Reaction Past Psychological History: Anxiety, Depression, Panic Disorder Smoking Status: Never smoker Past Alcohol Use History: None Reported Past Drug Use History: Marijuana - Past Family History Father History Unknown: Yes Family Medical History: Cancer Additional Family Medical History / Comment(s): lung General Exam Limitations: altered mental status General appearance: in no apparent distress, lethargic Head exam: Present: atraumatic, normocephalic, normal inspection Eye exam: Present: normal appearance, PERRL, EOMI. Absent: scleral icterus, conjunctival injection, periorbital swelling ENT exam: Present: mucous membranes dry Respiratory exam: Present: normal lung sounds bilaterally. Absent: respiratory distress, wheezes, rales, rhonchi, stridor Cardiovascular Exam: Present: regular rate, normal rhythm, normal heart sounds. Absent: systolic murmur, diastolic murmur, rubs, gallop, clicks GI/Abdominal exam: Present: soft, normal bowel sounds. Absent: distended, tenderness, guarding, rebound, rigid Extremities exam: Present: other (knee immobilizer left knee) Neurological exam: Present: altered, CN II-XII intact Skin exam: Present: warm, dry, intact, normal color. Absent: rash Course Vital Signs 02/06/22 02/06/22 02/06/22 09:00 12:25 15:00 Temperature 98.2 F 98.3 F Pulse Rate 83 85 Pulse Rate [ 110 H Pulse Oximetery ] Respiratory 16 18 20 Rate Blood Pressure 107/76 105/72 Blood Pressure 107/72 [Right Arm] O2 Sat by Pulse 98 100 Oximetry 02/06/22 02/06/22 15:07 16:59 Temperature Pulse Rate 96 110 H Pulse Rate [ Pulse Oximetery ] Respiratory 18 18 Rate Blood Pressure 128/70 122/82 Blood Pressure [Right Arm] O2 Sat by Pulse 100 97 Oximetry Procedures - ABG Interpretation Ph: 7.29 PCO2: 53 PO2: 104 Bicarbonate: 25.8 Interpretation: metabolic acidosis Medical Decision Making - Medical Decision Making Upon arrival patient was placed into room 19. A thorough history and physical exam was performed. She is able to answer most questions appropriately however appears fatigued. IV access is established and laboratory studies are conducted. I did send the patient for a CT of her head as it is reported the patient did hit her head yesterday. Laboratory studies are reviewed. Hemoglobin 7.9. Creatinine 3.47. He urine does demonstrate positive nitrites a nd many bacteria. This is a straight cath specimen. I did review the patient's previous microbiology which demonstrates ESBL UTI. Patient is sensitive to Zosyn and therefore blood cultures were obtained and Zosyn is initiated. CT demonstrates no acute process. Recommended admission due to multifactorial encephalopathy for which the patient was agreeable. Spoke with Dr. Rosen who agreed to admit the patient - Lab Data Result diagrams: 02/14/22 10:37 02/14/22 10:37 Lab Results 02/06/22 02/06/22 02/06/22 Range/Units 09:52 09:52 09:52 WBC 8.8 (3.8-10.6) k/uL RBC 2.92 L (3.80-5.40) m/uL Hgb 7.9 L (11.4-16.0) gm/dL Hct 26.0 L (34.0-46.0) % MCV 89.2 (80.0-100.0) fL MCH 26.9 (25.0-35.0) pg MCHC 30.2 L (31.0-37.0) g/dL RDW 15.5 (11.5-15.5) % Plt Count 373 (150-450) k/uL Plt Count Comment MPV 8.1 Immature Gran % (Auto) % Absolute Nucleated RBC (0.00-0.00) X 10*3/uL Neutrophils % 84 % Lymphocytes % 10 % Monocytes % 5 % Eosinophils % 1 % Basophils % 0 % Immature Gran # (0.00-0.04) X 10*3/uL Neutrophils # 7.3 (1.3-7.7) k/uL Lymphocytes # 0.9 L (1.0-4.8) k/uL Monocytes # 0.4 (0-1.0) k/uL Eosinophils # 0.0 (0-0.7) k/uL Basophils # 0.0 (0-0.2) k/uL NRBC/100 WBC Diff (0.0-0.0) /100 WBCS Hypochromasia Marked Poikilocytosis Slight PT 10.4 (9.0-12.0) sec INR 1.0 (<1.2) APTT 30.4 H (22.0-30.0) sec D-Dimer (<0.60) mg/L FEU Sample Site ABG pH (7.35-7.45) ABG pCO2 (35-45) mmHg ABG pO2 (83-108) mmHg ABG HCO3 (21-25) mmol/L ABG Total CO2 (19-24) mmol/L ABG O2 Saturation (94-97) % ABG Base Excess mmol/L Rocky Test VBG pH (7.31-7.41) VBG pCO2 (37-51) mmHg VBG HCO3 (24-28) mmol/L FiO2 % Sodium 136 L (137-145) mmol/L Potassium 4.5 (3.5-5.1) mmol/L Chloride 103 (98-107) mmol/L Carbon Dioxide 26 (22-30) mmol/L Anion Gap 7 mmol/L BUN 39 H (7-17) mg/dL Creatinine 3.47 H (0.52-1.04) mg/dL Est GFR (CKD-EPI)AfAm 19 (>60 ml/min/1.73 sqM) Est GFR (CKD-EPI)NonAf 16 (>60 ml/min/1.73 sqM) BUN/Creatinine Ratio (12.00-20.00) Ratio Glucose 191 H (74-99) mg/dL POC Glucose (mg/dL) (70-110) mg/dL POC Glu Tractor Crane Engineer ID Calcium 8.0 L (8.4-10.2) mg/dL Magnesium (1.5-2.4) mg/dL Total Bilirubin 0.1 L (0.2-1.3) mg/dL AST 15 (14-36) U/L ALT 18 (4-34) U/L Alkaline Phosphatase 114 (38-126) U/L Ammonia (<30) umol/L Troponin I (0.000-0.034) ng/mL NT-Pro-B Natriuret Pep pg/mL Total Protein 6.2 L (6.3-8.2) g/dL Albumin 2.8 L (3.5-5.0) g/dL Globulin (1.6-3.3) g/dL Albumin/Globulin Ratio (1.60-3.17) g/dL Procalcitonin (0.02-0.09) ng/mL Urine Color Urine Appearance (Clear) Urine pH (5.0-8.0) Ur Specific [place] (1.001-1.035) Urine Protein (Negative) Urine Glucose (UA) (Negative) Urine Ketones (Negative) Urine Blood (Negative) Urine Nitrite (Negative) Urine Bilirubin (Negative) Urine Urobilinogen (<2.0) mg/dL Ur Leukocyte Esterase (Negative) Urine RBC (0-5) /hpf Urine WBC (0-5) /hpf Urine WBC Clumps (None) /hpf Ur Squamous Epith Cells (0-4) /hpf Urine Bacteria (None) /hpf Urine Mucus (None) /hpf Influenza Type A (PCR) (Not Detectd) Influenza Type B (PCR) (Not Detectd) RSV (PCR) (Not Detectd) SARS-CoV-2 (PCR) (Not Detectd) Blood Type Blood Type Recheck Bld Type Recheck Status Antibody Screen Crossmatch Spec Expiration Date 02/06/22 02/06/22 02/06/22 Range/Units 09:52 09:52 09:52 WBC (3.8-10.6) k/uL RBC (3.80-5.40) m/uL Hgb (11.4-16.0) gm/dL Hct (34.0-46.0) % MCV (80.0-100.0) fL MCH (25.0-35.0) pg MCHC (31.0-37.0) g/dL RDW (11.5-15.5) % Plt Count (150-450) k/uL Plt Count Comment MPV Immature Gran % (Auto) % Absolute Nucleated RBC (0.00-0.00) X 10*3/uL Neutrophils % % Lymphocytes % % Monocytes % % Eosinophils % % Basophils % % Immature Gran # (0.00-0.04) X 10*3/uL Neutrophils # (1.3-7.7) k/uL Lymphocytes # (1.0-4.8) k/uL Monocytes # (0-1.0) k/uL Eosinophils # (0-0.7) k/uL Basophils # (0-0.2) k/uL NRBC/100 WBC Diff (0.0-0.0) /100 WBCS Hypochromasia Poikilocytosis PT (9.0-12.0) sec INR (<1.2) APTT (22.0-30.0) sec D-Dimer (<0.60) mg/L FEU Sample Site ABG pH (7.35-7.45) ABG pCO2 (35-45) mmHg ABG pO2 (83-108) mmHg ABG HCO3 (21-25) mmol/L ABG Total CO2 (19-24) mmol/L ABG O2 Saturation (94-97) % ABG Base Excess mmol/L Rocky Test VBG pH 7.24 L (7.31-7.41) VBG pCO2 62 H (37-51) mmHg VBG HCO3 25 (24-28) mmol/L FiO2 % Sodium (137-145) mmol/L Potassium (3.5-5.1) mmol/L Chloride (98-107) mmol/L Carbon Dioxide (22-30) mmol/L Anion Gap mmol/L BUN (7-17) mg/dL Creatinine (0.52-1.04) mg/dL Est GFR (CKD-EPI)AfAm (>60 ml/min/1.73 sqM) Est GFR (CKD-EPI)NonAf (>60 ml/min/1.73 sqM) BUN/Creatinine Ratio (12.00-20.00) Ratio Glucose (74-99) mg/dL POC Glucose (mg/dL) (70-110) mg/dL POC Glu Tractor Crane Engineer ID Calcium (8.4-10.2) mg/dL Magnesium (1.5-2.4) mg/dL Total Bilirubin (0.2-1.3) mg/dL AST (14-36) U/L ALT (4-34) U/L Alkaline Phosphatase (38-126) U/L Ammonia <9 (<30) umol/L Troponin I <0.012 (0.000-0.034) ng/mL NT-Pro-B Natriuret Pep pg/mL Total Protein (6.3-8.2) g/dL Albumin (3.5-5.0) g/dL Globulin (1.6-3.3) g/dL Albumin/Globulin Ratio (1.60-3.17) g/dL Procalcitonin (0.02-0.09) ng/mL Urine Color Urine Appearance (Clear) Urine pH (5.0-8.0) Ur Specific [place] (1.001-1.035) Urine Protein (Negative) Urine Glucose (UA) (Negative) Urine Ketones (Negative) Urine Blood (Negative) Urine Nitrite (Negative) Urine Bilirubin (Negative) Urine Urobilinogen (<2.0) mg/dL Ur Leukocyte Esterase (Negative) Urine RBC (0-5) /hpf Urine WBC (0-5) /hpf Urine WBC Clumps (None) /hpf Ur Squamous Epith Cells (0-4) /hpf Urine Bacteria (None) /hpf Urine Mucus (None) /hpf Influenza Type A (PCR) (Not Detectd) Influenza Type B (PCR) (Not Detectd) RSV (PCR) (Not Detectd) SARS-CoV-2 (PCR) (Not Detectd) Blood Type Blood Type Recheck Bld Type Recheck Status Antibody Screen Crossmatch Spec Expiration Date 02/06/22 02/06/22 02/06/22 Range/Units 11:29 11:51 12:39 WBC (3.8-10.6) k/uL RBC (3.80-5.40) m/uL Hgb (11.4-16.0) gm/dL Hct (34.0-46.0) % MCV (80.0-100.0) fL MCH (25.0-35.0) pg MCHC (31.0-37.0) g/dL RDW (11.5-15.5) % Plt Count (150-450) k/uL Plt Count Comment MPV Immature Gran % (Auto) % Absolute Nucleated RBC (0.00-0.00) X 10*3/uL Neutrophils % % Lymphocytes % % Monocytes % % Eosinophils % % Basophils % % Immature Gran # (0.00-0.04) X 10*3/uL Neutrophils # (1.3-7.7) k/uL Lymphocytes # (1.0-4.8) k/uL Monocytes # (0-1.0) k/uL Eosinophils # (0-0.7) k/uL Basophils # (0-0.2) k/uL NRBC/100 WBC Diff (0.0-0.0) /100 WBCS Hypochromasia Poikilocytosis PT (9.0-12.0) sec INR (<1.2) APTT (22.0-30.0) sec D-Dimer (<0.60) mg/L FEU Sample Site Right Radial ABG pH 7.30 L (7.35-7.45) ABG pCO2 53 H (35-45) mmHg ABG pO2 104 (83-108) mmHg ABG HCO3 26 H (21-25) mmol/L ABG Total CO2 27 H (19-24) mmol/L ABG O2 Saturation 98.9 H (94-97) % ABG Base Excess -0.7 mmol/L Rocky Test Yes VBG pH (7.31-7.41) VBG pCO2 (37-51) mmHg VBG HCO3 (24-28) mmol/L FiO2 28 % Sodium (137-145) mmol/L Potassium (3.5-5.1) mmol/L Chloride (98-107) mmol/L Carbon Dioxide (22-30) mmol/L Anion Gap mmol/L BUN (7-17) mg/dL Creatinine (0.52-1.04) mg/dL Est GFR (CKD-EPI)AfAm (>60 ml/min/1.73 sqM) Est GFR (CKD-EPI)NonAf (>60 ml/min/1.73 sqM) BUN/Creatinine Ratio (12.00-20.00) Ratio Glucose (74-99) mg/dL POC Glucose (mg/dL) 156 H (70-110) mg/dL POC Glu Tractor Crane Engineer ID Rubens Mahajan Calcium (8.4-10.2) mg/dL Magnesium (1.5-2.4) mg/dL Total Bilirubin (0.2-1.3) mg/dL AST (14-36) U/L ALT (4-34) U/L Alkaline Phosphatase (38-126) U/L Ammonia (<30) umol/L Troponin I (0.000-0.034) ng/mL NT-Pro-B Natriuret Pep pg/mL Total Protein (6.3-8.2) g/dL Albumin (3.5-5.0) g/dL Globulin (1.6-3.3) g/dL Albumin/Globulin Ratio (1.60-3.17) g/dL Procalcitonin (0.02-0.09) ng/mL Urine Color Light Yellow Urine Appearance Cloudy H (Clear) Urine pH 6.0 (5.0-8.0) Ur Specific [place] 1.014 (1.001-1.035) Urine Protein 2+ H (Negative) Urine Glucose (UA) Trace H (Negative) Urine Ketones Negative (Negative) Urine Blood Small H (Negative) Urine Nitrite Positive H (Negative) Urine Bilirubin Negative (Negative) Urine Urobilinogen <2.0 (<2.0) mg/dL Ur Leukocyte Esterase Large H (Negative) Urine RBC 1 (0-5) /hpf Urine WBC 25 H (0-5) /hpf Urine WBC Clumps Few H (None) /hpf Ur Squamous Epith Cells 1 (0-4) /hpf Urine Bacteria Many H (None) /hpf Urine Mucus Rare H (None) /hpf Influenza Type A (PCR) (Not Detectd) Influenza Type B (PCR) (Not Detectd) RSV (PCR) (Not Detectd) SARS-CoV-2 (PCR) (Not Detectd) Blood Type Blood Type Recheck Bld Type Recheck Status Antibody Screen Crossmatch Spec Expiration Date 02/06/22 02/07/22 02/07/22 Range/Units 20:16 06:16 06:16 WBC 9.98 (3.8-10.6) k/uL RBC 2.59 L (3.80-5.40) m/uL Hgb 6.8 L* (11.4-16.0) gm/dL Hct 23.1 L (34.0-46.0) % MCV 89.2 (80.0-100.0) fL MCH 26.3 L (25.0-35.0) pg MCHC 29.4 L (31.0-37.0) g/dL RDW 15.2 H (11.5-15.5) % Plt Count 316 (150-450) k/uL Plt Count Comment Adequate MPV 9.3 L Immature Gran % (Auto) 0.9 % Absolute Nucleated RBC 0 (0.00-0.00) X 10*3/uL Neutrophils % 77.9 % Lymphocytes % 10.8 % Monocytes % 7.1 % Eosinophils % 3.0 % Basophils % 0.3 % Immature Gran # 0.09 H (0.00-0.04) X 10*3/uL Neutrophils # 7.77 H (1.3-7.7) k/uL Lymphocytes # 1.08 (1.0-4.8) k/uL Monocytes # 0.71 (0-1.0) k/uL Eosinophils # 0.30 (0-0.7) k/uL Basophils # 0.03 (0-0.2) k/uL NRBC/100 WBC Diff 0 (0.0-0.0) /100 WBCS Hypochromasia Poikilocytosis PT (9.0-12.0) sec INR (<1.2) APTT (22.0-30.0) sec D-Dimer (<0.60) mg/L FEU Sample Site ABG pH (7.35-7.45) ABG pCO2 (35-45) mmHg ABG pO2 (83-108) mmHg ABG HCO3 (21-25) mmol/L ABG Total CO2 (19-24) mmol/L ABG O2 Saturation (94-97) % ABG Base Excess mmol/L Rocky Test VBG pH (7.31-7.41) VBG pCO2 (37-51) mmHg VBG HCO3 (24-28) mmol/L FiO2 % Sodium 136 (137-145) mmol/L Potassium 4.1 (3.5-5.1) mmol/L Chloride 104 (98-107) mmol/L Carbon Dioxide 19.3 L (22-30) mmol/L Anion Gap 12.20 mmol/L BUN 37.2 H (7-17) mg/dL Creatinine 3.2 H (0.52-1.04) mg/dL Est GFR (CKD-EPI)AfAm 20.6 L (>60 ml/min/1.73 sqM) Est GFR (CKD-EPI)NonAf 17.8 L (>60 ml/min/1.73 sqM) BUN/Creatinine Ratio 11.63 L (12.00-20.00) Ratio Glucose 104 (74-99) mg/dL POC Glucose (mg/dL) 114 H (70-110) mg/dL POC Glu Tractor Crane Engineer ID Demetria Vela Calcium 7.9 L (8.4-10.2) mg/dL Magnesium (1.5-2.4) mg/dL Total Bilirubin (0.2-1.3) mg/dL AST (14-36) U/L ALT (4-34) U/L Alkaline Phosphatase (38-126) U/L Ammonia (<30) umol/L Troponin I (0.000-0.034) ng/mL NT-Pro-B Natriuret Pep pg/mL Total Protein (6.3-8.2) g/dL Albumin (3.5-5.0) g/dL Globulin (1.6-3.3) g/dL Albumin/Globulin Ratio (1.60-3.17) g/dL Procalcitonin (0.02-0.09) ng/mL Urine Color Urine Appearance (Clear) Urine pH (5.0-8.0) Ur Specific [place] (1.001-1.035) Urine Protein (Negative) Urine Glucose (UA) (Negative) Urine Ketones (Negative) Urine Blood (Negative) Urine Nitrite (Negative) Urine Bilirubin (Negative) Urine Urobilinogen (<2.0) mg/dL Ur Leukocyte Esterase (Negative) Urine RBC (0-5) /hpf Urine WBC (0-5) /hpf Urine WBC Clumps (None) /hpf Ur Squamous Epith Cells (0-4) /hpf Urine Bacteria (None) /hpf Urine Mucus (None) /hpf Influenza Type A (PCR) (Not Detectd) Influenza Type B (PCR) (Not Detectd) RSV (PCR) (Not Detectd) SARS-CoV-2 (PCR) (Not Detectd) Blood Type Blood Type Recheck Bld Type Recheck Status Antibody Screen Crossmatch Spec Expiration Date 02/07/22 02/07/22 02/07/22 Range/Units 07:32 12:19 12:38 WBC (3.8-10.6) k/uL RBC (3.80-5.40) m/uL Hgb (11.4-16.0) gm/dL Hct (34.0-46.0) % MCV (80.0-100.0) fL MCH (25.0-35.0) pg MCHC (31.0-37.0) g/dL RDW (11.5-15.5) % Plt Count (150-450) k/uL Plt Count Comment MPV Immature Gran % (Auto) % Absolute Nucleated RBC (0.00-0.00) X 10*3/uL Neutrophils % % Lymphocytes % % Monocytes % % Eosinophils % % Basophils % % Immature Gran # (0.00-0.04) X 10*3/uL Neutrophils # (1.3-7.7) k/uL Lymphocytes # (1.0-4.8) k/uL Monocytes # (0-1.0) k/uL Eosinophils # (0-0.7) k/uL Basophils # (0-0.2) k/uL NRBC/100 WBC Diff (0.0-0.0) /100 WBCS Hypochromasia Poikilocytosis PT (9.0-12.0) sec INR (<1.2) APTT (22.0-30.0) sec D-Dimer (<0.60) mg/L FEU Sample Site ABG pH (7.35-7.45) ABG pCO2 (35-45) mmHg ABG pO2 (83-108) mmHg ABG HCO3 (21-25) mmol/L ABG Total CO2 (19-24) mmol/L ABG O2 Saturation (94-97) % ABG Base Excess mmol/L Rocky Test VBG pH (7.31-7.41) VBG pCO2 (37-51) mmHg VBG HCO3 (24-28) mmol/L FiO2 % Sodium (137-145) mmol/L Potassium (3.5-5.1) mmol/L Chloride (98-107) mmol/L Carbon Dioxide (22-30) mmol/L Anion Gap mmol/L BUN (7-17) mg/dL Creatinine (0.52-1.04) mg/dL Est GFR (CKD-EPI)AfAm (>60 ml/min/1.73 sqM) Est GFR (CKD-EPI)NonAf (>60 ml/min/1.73 sqM) BUN/Creatinine Ratio (12.00-20.00) Ratio Glucose (74-99) mg/dL POC Glucose (mg/dL) 106 209 H (70-110) mg/dL POC Glu Tractor Crane Engineer ID MartygavinoDomingodiallo Domingo Dotydiallo Calcium (8.4-10.2) mg/dL Magnesium (1.5-2.4) mg/dL Total Bilirubin (0.2-1.3) mg/dL AST (14-36) U/L ALT (4-34) U/L Alkaline Phosphatase (38-126) U/L Ammonia (<30) umol/L Troponin I (0.000-0.034) ng/mL NT-Pro-B Natriuret Pep pg/mL Total Protein (6.3-8.2) g/dL Albumin (3.5-5.0) g/dL Globulin (1.6-3.3) g/dL Albumin/Globulin Ratio (1.60-3.17) g/dL Procalcitonin (0.02-0.09) ng/mL Urine Color Urine Appearance (Clear) Urine pH (5.0-8.0) Ur Specific [place] (1.001-1.035) Urine Protein (Negative) Urine Glucose (UA) (Negative) Urine Ketones (Negative) Urine Blood (Negative) Urine Nitrite (Negative) Urine Bilirubin (Negative) Urine Urobilinogen (<2.0) mg/dL Ur Leukocyte Esterase (Negative) Urine RBC (0-5) /hpf Urine WBC (0-5) /hpf Urine WBC Clumps (None) /hpf Ur Squamous Epith Cells (0-4) /hpf Urine Bacteria (None) /hpf Urine Mucus (None) /hpf Influenza Type A (PCR) (Not Detectd) Influenza Type B (PCR) (Not Detectd) RSV (PCR) (Not Detectd) SARS-CoV-2 (PCR) (Not Detectd) Blood Type A Positive Blood Type Recheck A Pos Bld Type Recheck Status No Antibody Screen NEGATIVE Crossmatch See Detail Spec Expiration Date 02/10/2022 - 233702/07/22 02/07/22 02/07/22 Range/Units 16:52 20:10 20:14 WBC 9.3 (3.8-10.6) k/uL RBC 3.02 L (3.80-5.40) m/uL Hgb 8.3 L (11.4-16.0) gm/dL Hct 27.0 L (34.0-46.0) % MCV 89.4 (80.0-100.0) fL MCH 27.4 (25.0-35.0) pg MCHC 30.6 L (31.0-37.0) g/dL RDW 15.4 (11.5-15.5) % Plt Count 351 (150-450) k/uL Plt Count Comment MPV 7.8 Immature Gran % (Auto) % Absolute Nucleated RBC (0.00-0.00) X 10*3/uL Neutrophils % 83 % Lymphocytes % 9 % Monocytes % 5 % Eosinophils % 3 % Basophils % 0 % Immature Gran # (0.00-0.04) X 10*3/uL Neutrophils # 7.7 (1.3-7.7) k/uL Lymphocytes # 0.8 L (1.0-4.8) k/uL Monocytes # 0.5 (0-1.0) k/uL Eosinophils # 0.2 (0-0.7) k/uL Basophils # 0.0 (0-0.2) k/uL NRBC/100 WBC Diff (0.0-0.0) /100 WBCS Hypochromasia Marked Poikilocytosis Moderate PT (9.0-12.0) sec INR (<1.2) APTT (22.0-30.0) sec D-Dimer (<0.60) mg/L FEU Sample Site ABG pH (7.35-7.45) ABG pCO2 (35-45) mmHg ABG pO2 (83-108) mmHg ABG HCO3 (21-25) mmol/L ABG Total CO2 (19-24) mmol/L ABG O2 Saturation (94-97) % ABG Base Excess mmol/L Rocky Test VBG pH (7.31-7.41) VBG pCO2 (37-51) mmHg VBG HCO3 (24-28) mmol/L FiO2 % Sodium (137-145) mmol/L Potassium (3.5-5.1) mmol/L Chloride (98-107) mmol/L Carbon Dioxide (22-30) mmol/L Anion Gap mmol/L BUN (7-17) mg/dL Creatinine (0.52-1.04) mg/dL Est GFR (CKD-EPI)AfAm (>60 ml/min/1.73 sqM) Est GFR (CKD-EPI)NonAf (>60 ml/min/1.73 sqM) BUN/Creatinine Ratio (12.00-20.00) Ratio Glucose (74-99) mg/dL POC Glucose (mg/dL) 182 H 226 H (70-110) mg/dL POC Glu [employer] ELSIE Fergusongavino BunnyDemetria Badillo Calcium (8.4-10.2) mg/dL Magnesium (1.5-2.4) mg/dL Total Bilirubin (0.2-1.3) mg/dL AST (14-36) U/L ALT (4-34) U/L Alkaline Phosphatase (38-126) U/L Ammonia (<30) umol/L Troponin I (0.000-0.034) ng/mL NT-Pro-B Natriuret Pep pg/mL Total Protein (6.3-8.2) g/dL Albumin (3.5-5.0) g/dL Globulin (1.6-3.3) g/dL Albumin/Globulin Ratio (1.60-3.17) g/dL Procalcitonin (0.02-0.09) ng/mL Urine Color Urine Appearance (Clear) Urine pH (5.0-8.0) Ur Specific [place] (1.001-1.035) Urine Protein (Negative) Urine Glucose (UA) (Negative) Urine Ketones (Negative) Urine Blood (Negative) Urine Nitrite (Negative) Urine Bilirubin (Negative) Urine Urobilinogen (<2.0) mg/dL Ur Leukocyte Esterase (Negative) Urine RBC (0-5) /hpf Urine WBC (0-5) /hpf Urine WBC Clumps (None) /hpf Ur Squamous Epith Cells (0-4) /hpf Urine Bacteria (None) /hpf Urine Mucus (None) /hpf Influenza Type A (PCR) (Not Detectd) Influenza Type B (PCR) (Not Detectd) RSV (PCR) (Not Detectd) SARS-CoV-2 (PCR) (Not Detectd) Blood Type Blood Type Recheck Bld Type Recheck Status Antibody Screen Crossmatch Spec Expiration Date 02/08/22 02/08/22 02/08/22 Range/Units 06:38 07:30 08:02 WBC (3.8-10.6) k/uL RBC (3.80-5.40) m/uL Hgb (11.4-16.0) gm/dL Hct (34.0-46.0) % MCV (80.0-100.0) fL MCH (25.0-35.0) pg MCHC (31.0-37.0) g/dL RDW (11.5-15.5) % Plt Count (150-450) k/uL Plt Count Comment MPV Immature Gran % (Auto) % Absolute Nucleated RBC (0.00-0.00) X 10*3/uL Neutrophils % % Lymphocytes % % Monocytes % % Eosinophils % % Basophils % % Immature Gran # (0.00-0.04) X 10*3/uL Neutrophils # (1.3-7.7) k/uL Lymphocytes # (1.0-4.8) k/uL Monocytes # (0-1.0) k/uL Eosinophils # (0-0.7) k/uL Basophils # (0-0.2) k/uL NRBC/100 WBC Diff (0.0-0.0) /100 WBCS Hypochromasia Poikilocytosis PT (9.0-12.0) sec INR (<1.2) APTT (22.0-30.0) sec D-Dimer 3.37 H (<0.60) mg/L FEU Sample Site ABG pH (7.35-7.45) ABG pCO2 (35-45) mmHg ABG pO2 (83-108) mmHg ABG HCO3 (21-25) mmol/L ABG Total CO2 (19-24) mmol/L ABG O2 Saturation (94-97) % ABG Base Excess mmol/L Rocky Test VBG pH (7.31-7.41) VBG pCO2 (37-51) mmHg VBG HCO3 (24-28) mmol/L FiO2 % Sodium (137-145) mmol/L Potassium (3.5-5.1) mmol/L Chloride (98-107) mmol/L Carbon Dioxide (22-30) mmol/L Anion Gap mmol/L BUN (7-17) mg/dL Creatinine (0.52-1.04) mg/dL Est GFR (CKD-EPI)AfAm (>60 ml/min/1.73 sqM) Est GFR (CKD-EPI)NonAf (>60 ml/min/1.73 sqM) BUN/Creatinine Ratio (12.00-20.00) Ratio Glucose (74-99) mg/dL POC Glucose (mg/dL) 152 H 148 H (70-110) mg/dL POC Glu Tractor Crane Engineer ID Demetria Vela [place] Calcium (8.4-10.2) mg/dL Magnesium (1.5-2.4) mg/dL Total Bilirubin (0.2-1.3) mg/dL AST (14-36) U/L ALT (4-34) U/L Alkaline Phosphatase (38-126) U/L Ammonia (<30) umol/L Troponin I (0.000-0.034) ng/mL NT-Pro-B Natriuret Pep pg/mL Total Protein (6.3-8.2) g/dL Albumin (3.5-5.0) g/dL Globulin (1.6-3.3) g/dL Albumin/Globulin Ratio (1.60-3.17) g/dL Procalcitonin (0.02-0.09) ng/mL Urine Color Urine Appearance (Clear) Urine pH (5.0-8.0) Ur Specific [place] (1.001-1.035) Urine Protein (Negative) Urine Glucose (UA) (Negative) Urine Ketones (Negative) Urine Blood (Negative) Urine Nitrite (Negative) Urine Bilirubin (Negative) Urine Urobilinogen (<2.0) mg/dL Ur Leukocyte Esterase (Negative) Urine RBC (0-5) /hpf Urine WBC (0-5) /hpf Urine WBC Clumps (None) /hpf Ur Squamous Epith Cells (0-4) /hpf Urine Bacteria (None) /hpf Urine Mucus (None) /hpf Influenza Type A (PCR) (Not Detectd) Influenza Type B (PCR) (Not Detectd) RSV (PCR) (Not Detectd) SARS-CoV-2 (PCR) (Not Detectd) Blood Type Blood Type Recheck Bld Type Recheck Status Antibody Screen Crossmatch Spec Expiration Date 02/08/22 02/08/22 02/08/22 Range/Units 08:02 08:02 08:47 WBC 9.0 (3.8-10.6) k/uL RBC 2.96 L (3.80-5.40) m/uL Hgb 8.1 L (11.4-16.0) gm/dL Hct 26.3 L (34.0-46.0) % MCV 88.8 (80.0-100.0) fL MCH 27.2 (25.0-35.0) pg MCHC 30.7 L (31.0-37.0) g/dL RDW 15.7 H (11.5-15.5) % Plt Count 349 (150-450) k/uL Plt Count Comment MPV 8.1 Immature Gran % (Auto) % Absolute Nucleated RBC (0.00-0.00) X 10*3/uL Neutrophils % 84 % Lymphocytes % 7 % Monocytes % 5 % Eosinophils % 2 % Basophils % 0 % Immature Gran # (0.00-0.04) X 10*3/uL Neutrophils # 7.6 (1.3-7.7) k/uL Lymphocytes # 0.7 L (1.0-4.8) k/uL Monocytes # 0.5 (0-1.0) k/uL Eosinophils # 0.2 (0-0.7) k/uL Basophils # 0.0 (0-0.2) k/uL NRBC/100 WBC Diff (0.0-0.0) /100 WBCS Hypochromasia Marked Poikilocytosis Moderate PT (9.0-12.0) sec INR (<1.2) APTT (22.0-30.0) sec D-Dimer (<0.60) mg/L FEU Sample Site ABG pH (7.35-7.45) ABG pCO2 (35-45) mmHg ABG pO2 (83-108) mmHg ABG HCO3 (21-25) mmol/L ABG Total CO2 (19-24) mmol/L ABG O2 Saturation (94-97) % ABG Base Excess mmol/L Rocky Test VBG pH (7.31-7.41) VBG pCO2 (37-51) mmHg VBG HCO3 (24-28) mmol/L FiO2 % Sodium 137 (137-145) mmol/L Potassium 4.2 (3.5-5.1) mmol/L Chloride 111 H (98-107) mmol/L Carbon Dioxide 19 L (22-30) mmol/L Anion Gap 7 mmol/L BUN 36 H (7-17) mg/dL Creatinine 3.19 H (0.52-1.04) mg/dL Est GFR (CKD-EPI)AfAm 21 (>60 ml/min/1.73 sqM) Est GFR (CKD-EPI)NonAf 18 (>60 ml/min/1.73 sqM) BUN/Creatinine Ratio (12.00-20.00) Ratio Glucose 145 H (74-99) mg/dL POC Glucose (mg/dL) (70-110) mg/dL POC Glu Tractor Crane Engineer ID Calcium 7.8 L (8.4-10.2) mg/dL Magnesium (1.5-2.4) mg/dL Total Bilirubin (0.2-1.3) mg/dL AST (14-36) U/L ALT (4-34) U/L Alkaline Phosphatase (38-126) U/L Ammonia (<30) umol/L Troponin I (0.000-0.034) ng/mL NT-Pro-B Natriuret Pep pg/mL Total Protein (6.3-8.2) g/dL Albumin (3.5-5.0) g/dL Globulin (1.6-3.3) g/dL Albumin/Globulin Ratio (1.60-3.17) g/dL Procalcitonin (0.02-0.09) ng/mL Urine Color Urine Appearance (Clear) Urine pH (5.0-8.0) Ur Specific [place] (1.001-1.035) Urine Protein (Negative) Urine Glucose (UA) (Negative) Urine Ketones (Negative) Urine Blood (Negative) Urine Nitrite (Negative) Urine Bilirubin (Negative) Urine Urobilinogen (<2.0) mg/dL Ur Leukocyte Esterase (Negative) Urine RBC (0-5) /hpf Urine WBC (0-5) /hpf Urine WBC Clumps (None) /hpf Ur Squamous Epith Cells (0-4) /hpf Urine Bacteria (None) /hpf Urine Mucus (None) /hpf Influenza Type A (PCR) Not Detected (Not Detectd) Influenza Type B (PCR) Not Detected (Not Detectd) RSV (PCR) Not Detected (Not Detectd) SARS-CoV-2 (PCR) Not Detected (Not Detectd) Blood Type Blood Type Recheck Bld Type Recheck Status Antibody Screen Crossmatch Spec Expiration Date 02/08/22 02/08/22 02/08/22 Range/Units 11:28 11:28 12:03 WBC (3.8-10.6) k/uL RBC (3.80-5.40) m/uL Hgb (11.4-16.0) gm/dL Hct (34.0-46.0) % MCV (80.0-100.0) fL MCH (25.0-35.0) pg MCHC (31.0-37.0) g/dL RDW (11.5-15.5) % Plt Count (150-450) k/uL Plt Count Comment MPV Immature Gran % (Auto) % Absolute Nucleated RBC (0.00-0.00) X 10*3/uL Neutrophils % % Lymphocytes % % Monocytes % % Eosinophils % % Basophils % % Immature Gran # (0.00-0.04) X 10*3/uL Neutrophils # (1.3-7.7) k/uL Lymphocytes # (1.0-4.8) k/uL Monocytes # (0-1.0) k/uL Eosinophils # (0-0.7) k/uL Basophils # (0-0.2) k/uL NRBC/100 WBC Diff (0.0-0.0) /100 WBCS Hypochromasia Poikilocytosis PT (9.0-12.0) sec INR (<1.2) APTT (22.0-30.0) sec D-Dimer (<0.60) mg/L FEU Sample Site ABG pH (7.35-7.45) ABG pCO2 (35-45) mmHg ABG pO2 (83-108) mmHg ABG HCO3 (21-25) mmol/L ABG Total CO2 (19-24) mmol/L ABG O2 Saturation (94-97) % ABG Base Excess mmol/L Rocky Test VBG pH (7.31-7.41) VBG pCO2 (37-51) mmHg VBG HCO3 (24-28) mmol/L FiO2 % Sodium (137-145) mmol/L Potassium (3.5-5.1) mmol/L Chloride (98-107) mmol/L Carbon Dioxide (22-30) mmol/L Anion Gap mmol/L BUN (7-17) mg/dL Creatinine (0.52-1.04) mg/dL Est GFR (CKD-EPI)AfAm (>60 ml/min/1.73 sqM) Est GFR (CKD-EPI)NonAf (>60 ml/min/1.73 sqM) BUN/Creatinine Ratio (12.00-20.00) Ratio Glucose (74-99) mg/dL POC Glucose (mg/dL) 182 H (70-110) mg/dL POC Glu Tractor Crane Engineer ID Sophia Doty Calcium (8.4-10.2) mg/dL Magnesium (1.5-2.4) mg/dL Total Bilirubin (0.2-1.3) mg/dL AST (14-36) U/L ALT (4-34) U/L Alkaline Phosphatase (38-126) U/L Ammonia (<30) umol/L Troponin I (0.000-0.034) ng/mL NT-Pro-B Natriuret Pep 4190 pg/mL Total Protein (6.3-8.2) g/dL Albumin (3.5-5.0) g/dL Globulin (1.6-3.3) g/dL Albumin/Globulin Ratio (1.60-3.17) g/dL Procalcitonin 1.02 H (0.02-0.09) ng/mL Urine Color Urine Appearance (Clear) Urine pH (5.0-8.0) Ur Specific [place] (1.001-1.035) Urine Protein (Negative) Urine Glucose (UA) (Negative) Urine Ketones (Negative) Urine Blood (Negative) Urine Nitrite (Negative) Urine Bilirubin (Negative) Urine Urobilinogen (<2.0) mg/dL Ur Leukocyte Esterase (Negative) Urine RBC (0-5) /hpf Urine WBC (0-5) /hpf Urine WBC Clumps (None) /hpf Ur Squamous Epith Cells (0-4) /hpf Urine Bacteria (None) /hpf Urine Mucus (None) /hpf Influenza Type A (PCR) (Not Detectd) Influenza Type B (PCR) (Not Detectd) RSV (PCR) (Not Detectd) SARS-CoV-2 (PCR) (Not Detectd) Blood Type Blood Type Recheck Bld Type Recheck Status Antibody Screen Crossmatch Spec Expiration Date 02/08/22 02/08/22 02/09/22 Range/Units 17:14 19:26 04:44 WBC 8.59 (3.8-10.6) k/uL RBC 2.58 L (3.80-5.40) m/uL Hgb 7.0 L (11.4-16.0) gm/dL Hct 22.6 L (34.0-46.0) % MCV 87.6 (80.0-100.0) fL MCH 27.1 (25.0-35.0) pg MCHC 31.0 L (31.0-37.0) g/dL RDW 15.5 H (11.5-15.5) % Plt Count 296 (150-450) k/uL Plt Count Comment MPV 9.5 Immature Gran % (Auto) 1.6 % Absolute Nucleated RBC 0.02 H (0.00-0.00) X 10*3/uL Neutrophils % 72.7 % Lymphocytes % 12.8 % Monocytes % 8.6 % Eosinophils % 4.0 % Basophils % 0.3 % Immature Gran # 0.14 H (0.00-0.04) X 10*3/uL Neutrophils # 6.24 (1.3-7.7) k/uL Lymphocytes # 1.10 (1.0-4.8) k/uL Monocytes # 0.74 (0-1.0) k/uL Eosinophils # 0.34 (0-0.7) k/uL Basophils # 0.03 (0-0.2) k/uL NRBC/100 WBC Diff 0.2 H (0.0-0.0) /100 WBCS Hypochromasia Poikilocytosis PT (9.0-12.0) sec INR (<1.2) APTT (22.0-30.0) sec D-Dimer (<0.60) mg/L FEU Sample Site ABG pH (7.35-7.45) ABG pCO2 (35-45) mmHg ABG pO2 (83-108) mmHg ABG HCO3 (21-25) mmol/L ABG Total CO2 (19-24) mmol/L ABG O2 Saturation (94-97) % ABG Base Excess mmol/L Rocky Test VBG pH (7.31-7.41) VBG pCO2 (37-51) mmHg VBG HCO3 (24-28) mmol/L FiO2 % Sodium (137-145) mmol/L Potassium (3.5-5.1) mmol/L Chloride (98-107) mmol/L Carbon Dioxide (22-30) mmol/L Anion Gap mmol/L BUN (7-17) mg/dL Creatinine (0.52-1.04) mg/dL Est GFR (CKD-EPI)AfAm (>60 ml/min/1.73 sqM) Est GFR (CKD-EPI)NonAf (>60 ml/min/1.73 sqM) BUN/Creatinine Ratio (12.00-20.00) Ratio Glucose (74-99) mg/dL POC Glucose (mg/dL) 178 H 210 H (70-110) mg/dL POC Glu Tractor Crane Engineer ID Sophia Doty [place] Calcium (8.4-10.2) mg/dL Magnesium (1.5-2.4) mg/dL Total Bilirubin (0.2-1.3) mg/dL AST (14-36) U/L ALT (4-34) U/L Alkaline Phosphatase (38-126) U/L Ammonia (<30) umol/L Troponin I (0.000-0.034) ng/mL NT-Pro-B Natriuret Pep pg/mL Total Protein (6.3-8.2) g/dL Albumin (3.5-5.0) g/dL Globulin (1.6-3.3) g/dL Albumin/Globulin Ratio (1.60-3.17) g/dL Procalcitonin (0.02-0.09) ng/mL Urine Color Urine Appearance (Clear) Urine pH (5.0-8.0) Ur Specific [place] (1.001-1.035) Urine Protein (Negative) Urine Glucose (UA) (Negative) Urine Ketones (Negative) Urine Blood (Negative) Urine Nitrite (Negative) Urine Bilirubin (Negative) Urine Urobilinogen (<2.0) mg/dL Ur Leukocyte Esterase (Negative) Urine RBC (0-5) /hpf Urine WBC (0-5) /hpf Urine WBC Clumps (None) /hpf Ur Squamous Epith Cells (0-4) /hpf Urine Bacteria (None) /hpf Urine Mucus (None) /hpf Influenza Type A (PCR) (Not Detectd) Influenza Type B (PCR) (Not Detectd) RSV (PCR) (Not Detectd) SARS-CoV-2 (PCR) (Not Detectd) Blood Type Blood Type Recheck Bld Type Recheck Status Antibody Screen Crossmatch Spec Expiration Date 02/09/22 02/09/22 Range/Units 04:44 06:11 WBC (3.8-10.6) k/uL RBC (3.80-5.40) m/uL Hgb (11.4-16.0) gm/dL Hct (34.0-46.0) % MCV (80.0-100.0) fL MCH (25.0-35.0) pg MCHC (31.0-37.0) g/dL RDW (11.5-15.5) % Plt Count (150-450) k/uL Plt Count Comment MPV Immature Gran % (Auto) % Absolute Nucleated RBC (0.00-0.00) X 10*3/uL Neutrophils % % Lymphocytes % % Monocytes % % Eosinophils % % Basophils % % Immature Gran # (0.00-0.04) X 10*3/uL Neutrophils # (1.3-7.7) k/uL Lymphocytes # (1.0-4.8) k/uL Monocytes # (0-1.0) k/uL Eosinophils # (0-0.7) k/uL Basophils # (0-0.2) k/uL NRBC/100 WBC Diff (0.0-0.0) /100 WBCS Hypochromasia Poikilocytosis PT (9.0-12.0) sec INR (<1.2) APTT (22.0-30.0) sec D-Dimer (<0.60) mg/L FEU Sample Site ABG pH (7.35-7.45) ABG pCO2 (35-45) mmHg ABG pO2 (83-108) mmHg ABG HCO3 (21-25) mmol/L ABG Total CO2 (19-24) mmol/L ABG O2 Saturation (94-97) % ABG Base Excess mmol/L Rocky Test VBG pH (7.31-7.41) VBG pCO2 (37-51) mmHg VBG HCO3 (24-28) mmol/L FiO2 % Sodium 139 (137-145) mmol/L Potassium 4.4 (3.5-5.1) mmol/L Chloride 106 (98-107) mmol/L Carbon Dioxide 20.8 (22-30) mmol/L Anion Gap 12.20 mmol/L BUN 37.9 H (7-17) mg/dL Creatinine 3.5 H (0.52-1.04) mg/dL Est GFR (CKD-EPI)AfAm 18.5 L (>60 ml/min/1.73 sqM) Est GFR (CKD-EPI)NonAf 15.9 L (>60 ml/min/1.73 sqM) BUN/Creatinine Ratio 10.83 L (12.00-20.00) Ratio Glucose 138 H (74-99) mg/dL POC Glucose (mg/dL) 133 H (70-110) mg/dL POC Glu Tractor Crane Engineer ID Gianna Heart Calcium 8.1 L (8.4-10.2) mg/dL Magnesium 1.9 (1.5-2.4) mg/dL Total Bilirubin <0.15 L (0.2-1.3) mg/dL AST 13 (14-36) U/L ALT 15 (4-34) U/L Alkaline Phosphatase 93 (38-126) U/L Ammonia (<30) umol/L Troponin I (0.000-0.034) ng/mL NT-Pro-B Natriuret Pep pg/mL Total Protein 5.6 L (6.3-8.2) g/dL Albumin 2.5 L (3.5-5.0) g/dL Globulin 3.1 (1.6-3.3) g/dL Albumin/Globulin Ratio 0.81 L (1.60-3.17) g/dL Procalcitonin (0.02-0.09) ng/mL Urine Color Urine Appearance (Clear) Urine pH (5.0-8.0) Ur Specific [place] (1.001-1.035) Urine Protein (Negative) Urine Glucose (UA) (Negative) Urine Ketones (Negative) Urine Blood (Negative) Urine Nitrite (Negative) Urine Bilirubin (Negative) Urine Urobilinogen (<2.0) mg/dL Ur Leukocyte Esterase (Negative) Urine RBC (0-5) /hpf Urine WBC (0-5) /hpf Urine WBC Clumps (None) /hpf Ur Squamous Epith Cells (0-4) /hpf Urine Bacteria (None) /hpf Urine Mucus (None) /hpf Influenza Type A (PCR) (Not Detectd) Influenza Type B (PCR) (Not Detectd) RSV (PCR) (Not Detectd) SARS-CoV-2 (PCR) (Not Detectd) Blood Type Blood Type Recheck Bld Type Recheck Status Antibody Screen Crossmatch Spec Expiration Date - EKG Data EKG Comments: EKG interpreted by myself. Demonstrates a sinus rhythm with a rate of 91. AK interval 191. QRS 88. QTC of 434. No acute ST segment elevations or depressions Disposition Clinical Impression: CKD (chronic kidney disease), Encephalopathy acute Disposition: ADMITTED IP TO THIS HOSP Condition: Stable Is patient prescribed a controlled substance at d/c from ED?: No Time of Disposition: 12:27 Decision to Admit Reason: Admit from EC Decision Date: 02/06/22 Decision Time: 12:27
[2022-02-06 10:01] LABS: VBG PH 7.24 (7.31-7.41)
[2022-02-06 10:11] LABS: Basophils % (A) 0 %; Eosinophils % (A) 1 %; HGB 7.9 gm/dL (11.4-16.0); Hypochromasia Marked; Lymphocytes # (A) 0.9 k/uL (1.0-4.8); Lymphocytes % (A) 10 %; MCH 26.9 pg (25.0-35.0); MCHC 30.2 g/dL (31.0-37.0); MCV 89.2 fL (80.0-100.0); Mean Platelet Volume 8.1; Monocytes # (A) 0.4 k/uL (0-1.0); Monocytes % (A) 5 %; Neutrophils # (A) 7.3 k/uL (1.3-7.7); Neutrophils % (A) 84 %; Platelet Count 373 k/uL (150-450); Poikilocytosis Slight; RBC 2.92 m/uL (3.80-5.40); RDW 15.5 % (11.5-15.5); WBC 8.8 k/uL (3.8-10.6)
[2022-02-06 10:14] LABS: Prothrombin Time 10.4 sec (9.0-12.0)
[2022-02-06 10:15] LABS: Partial Thromboplastin Time 30.4 sec (22.0-30.0)
[2022-02-06 10:17] LABS: Albumin 2.8 g/dL (3.5-5.0); Potassium 4.5 mmol/L (3.5-5.1); Total Bilirubin 0.1 mg/dL (0.2-1.3); Total Protein 6.2 g/dL (6.3-8.2)
--- NOTE | 2022-02-06 11:11 | XR ---
EXAMINATION TYPE: XR chest 2V DATE OF EXAM: 02/06/2022 11:08 AM COMPARISON: Chest radiographs from 01/26/2021 TECHNIQUE: XR chest 2V Frontal and lateral views of the chest. CLINICAL INDICATION:Female, 36 years old with history of altered mental status; FINDINGS: Lungs/Pleura: Low lung volumes. There is no evidence of pleural effusion, focal consolidation, or pne umothorax. Pulmonary vascularity: Unremarkable. Heart/mediastinum: Cardiomediastinal silhouette is enlarged and stable. Musculoskeletal: No acute osseous pathology. IMPRESSION: Low lung volumes with persistent cardiomegaly. No acute process.
--- NOTE | 2022-02-06 11:14 | CT ---
EXAMINATION TYPE: CT brain wo con CT DLP: 1157.9 mGycm, Automated exposure control for dose reduction was used. DATE OF EXAM: 02/06/2022 11:07 AM COMPARISON: Prior CT Brain from 11/29/2016. CLINICAL INDICATION:Female, 36 years old with history of Altered mental status, fall on anticoagulati on, Altered mental status, fell on anticoagulants TECHNIQUE: Brain: Multiple axial CT images of the brain were obtained without IV contrast. Coronal and sagittal reformats reviewed. FINDINGS: Brain: Extra-axial spaces: No abnormal extra-axial fluid collections. Ventricular system: Within normal limits Cerebral parenchyma: No acute intraparenchymal hemorrhage or mass effect. The jiménez-white junction is well differentiated. Cerebellum: Unremarkable. Mass effect: No evidence of midline shift. Intracranial vasculature: unremarkable Soft tissues: Nodularity demonstrated within the vertex soft tissues likely representing epidermal in clusion cysts. Calvarium/osseous structures: No depressed skull fracture. Paranasal sinuses and mastoid air cells: Mild scattered paranasal sinus disease. Visualized orbits: Orbital contents are intact. IMPRESSION: No acute intracranial process. No significant change from prior examination.
[2022-02-06 11:39] LABS: Glucose,Whole Blood 156 mg/dL (70-110)
[2022-02-06] MEDS ORDERED: NALOXONE 0.4 MG/ML 1 ML VIAL IV PRN (12:28)
[2022-02-06 12:31] LABS: Appearance,Urine Cloudy (Clear); Bacteria,Urine Many /hpf; Bilirubin,Urine Negative (Negative); Blood,Urine Small (Negative); Color,Urine Light Yellow; Glucose,Urine (UA) Trace (Negative); Ketones,Urine Negative (Negative); Leukocyte Esterase,Urine Large (Negative); Mucus,Urine Rare /hpf; Nitrite,Urine Positive (Negative); Protein,Urine 2+ (Negative); RBC,Urine 1 /hpf (0-5); Specific Gravity,Urine 1.014 (1.001-1.035); Squamous Epithelial Cell,Urine 1 /hpf (0-4); Urobilinogen,Urine <2.0 mg/dL (<2.0); WBC,Urine 25 /hpf (0-5)
[2022-02-06 12:44] LABS: ABG Base Excess -0.7 mmol/L; ABG HCO3 26 mmol/L (21-25); ABG Oxygen Saturation 98.9 % (94-97); ABG PCO2 53 mmHg (35-45); ABG PO2 104 mmHg (83-108); ABG TCO2 27 mmol/L (19-24); Allen Test Performed? Yes
[2022-02-06] MEDS ORDERED: PIPERACILLIN-TAZOBACTAM 3.375 GM in SODIUM CHLORIDE 0.9% 100 ML IVPB STA (12:55)
[2022-02-06] MEDS: SODIUM CHLORIDE 0.9% 1,000 ML IV SCH (13:15)
[2022-02-06] MEDS: carvediloL 3.125 MG TAB PO SCH (16:58)
[2022-02-06] MEDS: HYDROcodone/APAP 5-325MG 1 EACH TAB PO PRN (18:06)
[2022-02-06 20:16] LABS: Glucose,Whole Blood 114 mg/dL (70-110)
[2022-02-06] MEDS: clonazePAM 0.5 MG TAB PO SCH (20:17)
[2022-02-06] MEDS: LEVOTHYROXINE 25 MCG TAB PO SCH (20:17)
[2022-02-06] MEDS: APIXABAN 5 MG TAB PO SCH (20:17)
[2022-02-06] MEDS: SODIUM BICARBONATE TAB 650 MG TAB PO SCH (20:17)
[2022-02-06] MEDS: INSULIN DETEMIR (LEVEMIR) 100 UNIT/ML SYR SQ SCH (21:53)
--- NOTE | 2022-02-06 23:02 | P.HPIM ---
History of Present Illness H&P Date: 02/06/22 Chief Complaint: Altered mental status Patient is a 36-year-old female with a known history of CVA with right-sided weakness, cognitive impairment, history of gastric bypass surgery, history of DVT on anticoagulation was sent to ER from [facility] due to altered mental status. Patient had a fall from bed at [facility] yesterday and landed on her bilateral knees. Denied any hitting her head. Patient had x-ray and knee CT done in the ER yesterday showed nondisplaced hairline fracture of the distal femur involving the intercondylar distal femur. She was placed on knee immobilizer and was given Toradol and morphine at 1 AM and was sent back to [facility]. Today morning patient was found to be nonresponsive and difficult to arouse. Patient also received baclofen 5 mg at 5 AM and another 5 mg at 1 PM and also 10 mg at 8 PM. Patient was not discharged back on any medications. Patient has been very lethargic and delayed in answering questions appropriately. Otherwise patient did not have any fever. Patient has been on oxygen at 2 L via nasal cannula since her COVID infection. Does have history of ESBL urinary tract infection. Patient does have CKD with baseline creatinine level around 3.0. Laboratory test showed WBC 8.8 hemoglobin 7.9 and platelets 373 ABG showed pH 7.3 PCO2 53 and PO2 104 Sodium 136 potassium 4.5 chloride 103 bicarb is 26 BUN 39 and creatinine 3.47 Blood sugar is 191 Liver enzymes are not elevated. Albumin 2.8 and troponin x1 negative ammonia level is less than 9 Urinalysis showed cloudy with 2+ protein trace glucose nitrite positive and large leukocyte esterase and elevated WBCs. Review of Systems Review of systems could not be obtained from the patient. ROS unobtainable: due to mental status Past Medical History Past Medical History: CVA/TIA, Deep Vein Thrombosis (DVT), Myocardial Infarction ([place]) Additional Past Medical History / Comment(s): morbid obesity, pancreatitis, history of coma - 10/24/14 - until end of december after suffering from a stroke. Last Myocardial Infarction Date:: 10/2014 History of Any Multi-Drug Resistant Organisms: ESBL, Other MDRO Date of last positivie culture/infection: 07/16/20 ESBL E.coli MDRO Source:: Urine-ESBL Past Surgical History: Cholecystectomy Additional Past Surgical History / Comment(s): Cystoscopy with placement of left double-J catheter 02/16/2018, Gastric bypass 2016 Past Anesthesia/Blood Transfusion Reactions: No Reported Reaction Past Psychological History: Anxiety, Depression, Panic Disorder Smoking Status: Never smoker Past Alcohol Use History: None Reported Additional Past Alcohol Use History / Comment(s): patient smoked in high school Past Drug Use History: Marijuana - Past Family History Father History Unknown: Yes Family Medical History: Cancer Additional Family Medical History / Comment(s): lung Medications and Allergies Home Medications Medication Instructions Recorded Confirmed Type FLUoxetine HCL [PROzac] 20 mg PO DAILY 02/15/18 02/06/22 History Levothyroxine Sodium [Synthroid] 25 mcg PO HS@199902/15/18 02/06/22 History Multivitamins, Thera [Multivitamin 1 tab PO DAILY 02/15/18 02/06/22 History (formulary)] Acetaminophen Tab [Tylenol] 650 mg PO Q6H PRN 09/03/18 02/06/22 History Baclofen 10 mg PO HS@199907/25/20 02/06/22 History Insulin Glargine,Hum.rec.anlog 27 unit SQ HS@199907/25/20 02/06/22 History [Lantus Solostar Pen] Sennosides/Docusate Sodium [Senna 2 cap PO HS@199907/25/20 02/06/22 History Plus 8.6-50 mg Softgel] amLODIPine [Norvasc] 5 mg PO DAILY 07/25/20 02/06/22 History carvediloL [Coreg] 3.125 mg PO BID 07/25/20 02/06/22 History Atorvastatin [Lipitor] 20 mg PO HS@199909/29/20 02/06/22 History clonazePAM [KlonoPIN] 0.5 mg PO HS@199909/29/20 02/06/22 History Darbepoetin Kurtis [Aranesp] 25 mcg SQ MO@219901/26/21 02/06/22 History Norethindrone [Chani] 0.35 mg PO DAILY 01/26/21 02/06/22 History clomiPRAMINE [Anafranil] 50 mg PO HS 01/26/21 02/06/22 History Ferrous Sulfate [Feosol] 325 mg PO BID #60 tab 01/31/21 02/06/22 Rx Acetaminophen Tab [Tylenol Tab] 500 mg PO TID@0800,1200,1800 02/06/22 02/06/22 History Apixaban [Eliquis] 5 mg PO BID 02/06/22 02/06/22 History Baclofen 5 mg PO BID@0500,1300 02/06/22 02/06/22 History Ergocalciferol [Vitamin D2 (1250 1,250 mcg PO Q14D 02/06/22 02/06/22 History Mcg = 63228 Iu)] HYDROcodone/APAP 7.5-325MG [[place] 1 tab PO Q8H PRN 02/06/22 02/06/22 History 7.5-325] Magnesium Hydroxide [Milk of 2,400 mg PO Q72H PRN 02/06/22 02/06/22 History Magnesia] Melatonin 5 mg PO HS@2000 02/06/22 02/06/22 History Na Phos,M-B/Na Phos,Di-Ba [Fleet 133 ml RECTAL DAILY PRN 02/06/22 02/06/22 History Adult] Sodium Bicarbonate 650 mg PO BID 02/06/22 02/06/22 History bisacodyL [Dulcolax] 10 mg RECTAL DAILY PRN 02/06/22 02/06/22 History glipiZIDE XL [Glucotrol XL] 2.5 mg PO DAILY@0700 02/06/22 02/06/22 History polyethylene glycoL 3350 [Miralax] 17 gm PO DAILY 02/06/22 02/06/22 History Allergies Allergy/AdvReac Type Severity Reaction Status Date / Time aspirin Allergy Rash/Hives Verified 02/06/22 10:50 sertraline HCl [From Zoloft] Allergy Unknown Verified 02/06/22 10:50 zolpidem tartrate Allergy Unknown Verified 02/06/22 10:50 [From Ambien] gabapentin [From Neurontin] AdvReac Severe SEVERE Verified 02/06/22 10:50 AGITATION ibuprofen [From Motrin] AdvReac AVOIDS D/T Verified 02/06/22 10:50 KIDNEY FUNCTION Physical Exam Vitals: Vital Signs Temp Pulse Pulse Resp BP BP Pulse Ox 02/06/22 20:08 98.1 F 110 H 18 137/76 93 L 02/06/22 16:59 110 H 18 122/82 97 02/06/22 15:07 96 18 128/70 100 02/06/22 15:00 98.3 F 110 H 20 107/72 02/06/22 12:25 85 18 105/72 100 02/06/22 09:00 98.2 F 83 16 107/76 98 Intake and Output 02/06/22 02/06/22 02/06/22 06:59 14:59 22:59 Other: Weight 110.495 kg 110.495 kg PHYSICAL EXAMINATION: Patient is lying in the bed comfortably, patient is unarousable. obese. HEENT: Normocephalic. Neck is supple. Pupils reactive. Nostrils clear. Oral cavity is moist. Neck reveals no JVD, carotid bruits, or thyromegaly. CHEST EXAMINATION: Trachea is central. Symmetrical expansion. Bibasilar dim inished sounds. No wheezing or rhonchi.. CARDIAC: Normal S1, S2 with no gallops. No murmurs ABDOMEN: Soft. Bowel sounds present. Nontender. No organomegaly. No abdominal bruits. Extremities: reveal no edema. No clubbing or cyanosis Neurologically awake, alert, oriented x0. skin: No rash or skin lesions. Psychiatric: Could not be assessed. Musculoskeletal: No joint swelling or deformity. Left knee immobilizer in place. Results CBC & Chem 7: 02/06/22 09:52 02/06/22 09:52 Labs: Abnormal Lab Results - Last 24 Hours (Table) 02/06/22 02/06/22 02/06/22 Range/Units 09:52 09:52 09:52 RBC 2.92 L (3.80-5.40) m/uL Hgb 7.9 L (11.4-16.0) gm/dL Hct 26.0 L (34.0-46.0) % MCHC 30.2 L (31.0-37.0) g/dL Lymphocytes # 0.9 L (1.0-4.8) k/uL APTT 30.4 H (22.0-30.0) sec ABG pH (7.35-7.45) ABG pCO2 (35-45) mmHg ABG HCO3 (21-25) mmol/L ABG Total CO2 (19-24) mmol/L ABG O2 Saturation (94-97) % VBG pH (7.31-7.41) VBG pCO2 (37-51) mmHg Sodium 136 L (137-145) mmol/L BUN 39 H (7-17) mg/dL Creatinine 3.47 H (0.52-1.04) mg/dL Glucose 191 H (74-99) mg/dL POC Glucose (mg/dL) (70-110) mg/dL Calcium 8.0 L (8.4-10.2) mg/dL Total Bilirubin 0.1 L (0.2-1.3) mg/dL Total Protein 6.2 L (6.3-8.2) g/dL Albumin 2.8 L (3.5-5.0) g/dL Urine Appearance (Clear) Urine Protein (Negative) Urine Glucose (UA) (Negative) Urine Blood (Negative) Urine Nitrite (Negative) Ur Leukocyte Esterase (Negative) Urine WBC (0-5) /hpf Urine WBC Clumps (None) /hpf Urine Bacteria (None) /hpf Urine Mucus (None) /hpf 02/06/22 02/06/22 02/06/22 Range/Units 09:52 11:29 11:51 RBC (3.80-5.40) m/uL Hgb (11.4-16.0) gm/dL Hct (34.0-46.0) % MCHC (31.0-37.0) g/dL Lymphocytes # (1.0-4.8) k/uL APTT (22.0-30.0) sec ABG pH (7.35-7.45) ABG pCO2 (35-45) mmHg ABG HCO3 (21-25) mmol/L ABG Total CO2 (19-24) mmol/L ABG O2 Saturation (94-97) % VBG pH 7.24 L (7.31-7.41) VBG pCO2 62 H (37-51) mmHg Sodium (137-145) mmol/L BUN (7-17) mg/dL Creatinine (0.52-1.04) mg/dL Glucose (74-99) mg/dL POC Glucose (mg/dL) 156 H (70-110) mg/dL Calcium (8.4-10.2) mg/dL Total Bilirubin (0.2-1.3) mg/dL Total Protein (6.3-8.2) g/dL Albumin (3.5-5.0) g/dL Urine Appearance Cloudy H (Clear) Urine Protein 2+ H (Negative) Urine Glucose (UA) Trace H (Negative) Urine Blood Small H (Negative) Urine Nitrite Positive H (Negative) Ur Leukocyte Esterase Large H (Negative) Urine WBC 25 H (0-5) /hpf Urine WBC Clumps Few H (None) /hpf Urine Bacteria Many H (None) /hpf Urine Mucus Rare H (None) /hpf 02/06/22 02/06/22 Range/Units 12:39 20:16 RBC (3.80-5.40) m/uL Hgb (11.4-16.0) gm/dL Hct (34.0-46.0) % MCHC (31.0-37.0) g/dL Lymphocytes # (1.0-4.8) k/uL APTT (22.0-30.0) sec ABG pH 7.30 L (7.35-7.45) ABG pCO2 53 H (35-45) mmHg ABG HCO3 26 H (21-25) mmol/L ABG Total CO2 27 H (19-24) mmol/L ABG O2 Saturation 98.9 H (94-97) % VBG pH (7.31-7.41) VBG pCO2 (37-51) mmHg Sodium (137-145) mmol/L BUN (7-17) mg/dL Creatinine (0.52-1.04) mg/dL Glucose (74-99) mg/dL POC Glucose (mg/dL) 114 H (70-110) mg/dL Calcium (8.4-10.2) mg/dL Total Bilirubin (0.2-1.3) mg/dL Total Protein (6.3-8.2) g/dL Albumin (3.5-5.0) g/dL Urine Appearance (Clear) Urine Protein (Negative) Urine Glucose (UA) (Negative) Urine Blood (Negative) Urine Nitrite (Negative) Ur Leukocyte Esterase (Negative) Urine WBC (0-5) /hpf Urine WBC Clumps (None) /hpf Urine Bacteria (None) /hpf Urine Mucus (None) /hpf Microbiology - Last 24 Hours (Table) 02/06/22 11:51 Urine Culture - Preliminary Urine,Catheterized Thrombosis Risk Factor Assmnt - Choose All That Apply Each Factor Represents 1 point: Medical pt on bed rest, Obesity (BMI >25) Other congenital or acquired thrombophilia - If yes, enter type in comment: No Thrombosis Risk Factor Assessment Total Risk Factor Score: 2 Thrombosis Risk Factor Assessment Level: Low Risk Assessment and Plan Assessment: Altered mental status possible metabolic and toxic neuropathy.Patient received multiple dose of baclofen and morphine 4 mg x 1 Acute urinary tract infection with prior history of ESBL Nondisplaced hairline fracture of the distal femur involving the intracondylar distal femur. Status post fall from her bed and landed on her knees. Status post knee immobilizer.Was seen in the ER and sent back to [facility] Morbid obesity History of CVA with right-sided weakness Gastric bypass surgery in 2016 Anxiety/depression and panic disorder History of DVT on anticoagulation with Eliquis Normocytic anemia/anemia of chronic disease with hemoglobin 7.9 Acute on CKD stage IV with baseline creatinine around 3.0 DVT prophylaxis patient is already on Eliquis Plan: Patient will be continued on IV hydration with normal saline and limit narcotic pain medications. Patient was given a dose of Zosyn in the ER. Follow-up urine culture report and continue with ceftriaxone and ID consultation due to prior history of ESBL. Continue with home medications and follow-up closely. Time with Patient: Greater than 30
[2022-02-07] MEDS: HYDROcodone/APAP 5-325MG 1 EACH TAB PO PRN ×3 (00:19→12:42)
[2022-02-07] MEDS: ACETAMINOPHEN TAB 325 MG TAB PO PRN (03:35)
[2022-02-07] MEDS: SODIUM CHLORIDE 0.9% 1,000 ML IV SCH ×2 (05:00→17:29)
[2022-02-07] MEDS: carvediloL 3.125 MG TAB PO SCH ×2 (06:29→17:26)
[2022-02-07 07:33] LABS: Glucose,Whole Blood 106 mg/dL (70-110)
[2022-02-07] MEDS: SODIUM BICARBONATE TAB 650 MG TAB PO SCH ×2 (08:43→20:12)
[2022-02-07] MEDS: amLODIPine 5 MG TAB PO SCH (08:44)
[2022-02-07] MEDS: APIXABAN 5 MG TAB PO SCH ×2 (08:44→20:12)
[2022-02-07 09:25] LABS: African American GFR (CKD) 20.6 (60.0-200.0); Anion Gap 12.2 mmol/L (10.00-18.00); BUN/Creat Ratio 11.63 Ratio (12.00-20.00); Blood Urea Nitrogen 37.2 mg/dL (9.0-27.0); Calcium 7.9 mg/dL (8.7-10.3); Carbon Dioxide 19.3 mmol/L (20.0-27.5); Non-African American GFR(CKD) 17.8 (60.0-200.0); Potassium 4.1 mmol/L (3.5-5.5)
[2022-02-07 11:55] LABS: Basophils # (A) 0.03 X 10*3/uL (0.00-0.10); Basophils % (A) 0.3 %; HCT 23.1 % (37.2-46.3); HGB 6.8 g/dL (12.0-15.0); Immature Grans, Automated 0.9 %; Lymphocytes # (A) 1.08 X 10*3/uL (0.90-5.00); Lymphocytes % (A) 10.8 %; MCH 26.3 pg (27.0-32.0); MCHC 29.4 g/dL (32.0-37.0); MCV 89.2 fL (80.0-97.0); Mean Platelet Volume 9.3 fL (9.5-12.2); Monocytes # (A) 0.71 X 10*3/uL (0.20-1.00); Monocytes % (A) 7.1 %; NRBC Per 100 WBC 0 /100 WBCS (0.0-0.0); Neutrophils # (A) 7.77 X 10*3/uL (1.80-7.70); Neutrophils % (A) 77.9 %; Platelet Count 316 X 10*3/uL (140-440); RBC 2.59 X 10*6/uL (4.10-5.20); RDW 15.2 % (11.5-14.5); WBC 9.98 X 10*3/uL (4.50-10.00)
[2022-02-07 12:21] LABS: Glucose,Whole Blood 209 mg/dL (70-110)
[2022-02-07] MEDS ORDERED: ERTAPENEM 1 GM in SODIUM CHLORIDE 0.9% 50 ML IVPB SCH (15:45)
[2022-02-07 16:54] LABS: Glucose,Whole Blood 182 mg/dL (70-110)
[2022-02-07] MEDS: BACLOFEN 10 MG TAB PO SCH ×2 (17:26→20:12)
[2022-02-07] MEDS: INSULIN ASPART (NovoLOG) 100 UNIT/ML VIAL SQ SCH ×2 (17:30→20:39)
[2022-02-07] MEDS: ERTAPENEM 0.5 GM in SODIUM CHLORIDE 0.9% 50 ML IVPB SCH (17:30)
[2022-02-07] MEDS: HYDROcodone/APAP 7.5-325MG 1 EACH TAB PO PRN (18:52)
[2022-02-07] MEDS: INSULIN DETEMIR (LEVEMIR) 100 UNIT/ML SYR SQ SCH (20:11)
[2022-02-07 20:12] LABS: Glucose,Whole Blood 226 mg/dL (70-110)
[2022-02-07] MEDS: clonazePAM 0.5 MG TAB PO SCH (20:12)
[2022-02-07] MEDS: LEVOTHYROXINE 25 MCG TAB PO SCH (20:12)
[2022-02-07] MEDS: ATORVASTATIN 20 MG TAB PO SCH (20:12)
[2022-02-07 20:30] LABS: Basophils % (A) 0 %; Eosinophils # (A) 0.2 k/uL (0-0.7); Eosinophils % (A) 3 %; HGB 8.3 gm/dL (11.4-16.0); Hypochromasia Marked; Lymphocytes # (A) 0.8 k/uL (1.0-4.8); Lymphocytes % (A) 9 %; MCH 27.4 pg (25.0-35.0); MCHC 30.6 g/dL (31.0-37.0); MCV 89.4 fL (80.0-100.0); Mean Platelet Volume 7.8; Monocytes # (A) 0.5 k/uL (0-1.0); Monocytes % (A) 5 %; Neutrophils # (A) 7.7 k/uL (1.3-7.7); Neutrophils % (A) 83 %; Platelet Count 351 k/uL (150-450); Poikilocytosis Moderate; RBC 3.02 m/uL (3.80-5.40); RDW 15.4 % (11.5-15.5); WBC 9.3 k/uL (3.8-10.6)
--- NOTE | 2022-02-07 23:16 | P.CONS ---
History of Present Illness - Reason for Consult Consult date: 02/07/22 History of ESBL, UTI Requesting physician: Selina Rosen - Chief Complaint mental status changes and fall x 1 day - History of Present Illness Patient is a 36-year-old female with a past medical history significant for cognitive impairment CVA with right-sided weakness and a history of gastric bypass surgery patient was sent to the ER from the [facility] for evaluation of mental status changes apparently the patient did have a fall landed on her bilateral knee area patient has been complaining of pain especially to the left lower extremity area patient did have x-rays and CT done in the ER with evidence of nondisplaced hairline fracture of the distal femur involving the condylar distal femur patient on presentation to the hospital was afebrile and no fever has been recorded subsequently patient did have a low hemoglobin normal white count did have elevated BUN and creatinine and a positive UA with concerning for possible UTI and history of ESBL E. coli UTI in the past patient was started on Rocephin infectious disease was consulted for further management of antibiotic therapy patient did have a chest x-ray low lung volumes no acute process patient has been complaining of some difficulty urination and decreased urine output but no suprapubic or flank pain nausea but no vomiting Review of Systems Positive point has been mentioned in the HPI rest of the systems are negative Past Medical History Past Medical History: CVA/TIA, Deep Vein Thrombosis (DVT), Myocardial Infarction ([place]) Additional Past Medical History / Comment(s): morbid obesity, pancreatitis, history of coma - 10/24/14 - until end december after suffering from a stroke. Last Myocardial Infarction Date:: 10/2014 History of Any Multi-Drug Resistant Organisms: ESBL, Other MDRO Year Discovered:: 07/16/20 ESBL E.coli MDRO Source:: Urine-ESBL Past Surgical History: Cholecystectomy Additional Past Surgical History / Comment(s): Cystoscopy with placement of left double-J catheter 02/16/2018, Gastric bypass 2016 Past Anesthesia/Blood Transfusion Reactions: No Reported Reaction Past Psychological History: Anxiety, Depression, Panic Disorder Smoking Status: Never smoker Past Alcohol Use History: None Reported Additional Past Alcohol Use History / Comment(s): patient smoked in high school Past Drug Use History: Marijuana - Past Family History Father History Unknown: Yes Family Medical History: Cancer Additional Family Medical History / Comment(s): lung Medications and Allergies Home Medications Medication Instructions Recorded Confirmed Type FLUoxetine HCL [PROzac] 20 mg PO DAILY 02/15/18 02/06/22 History Levothyroxine Sodium [Synthroid] 25 mcg PO HS@199902/15/18 02/06/22 History Multivitamins, Thera [Multivitamin 1 tab PO DAILY 02/15/18 02/06/22 History (formulary)] Acetaminophen Tab [Tylenol] 650 mg PO Q6H PRN 09/03/18 02/06/22 History Baclofen 10 mg PO HS@199907/25/20 02/06/22 History Insulin Glargine,Hum.rec.anlog 27 unit SQ HS@199907/25/20 02/06/22 History [Lantus Solostar Pen] Sennosides/Docusate Sodium [Senna 2 cap PO HS@199907/25/20 02/06/22 History Plus 8.6-50 mg Softgel] amLODIPine [Norvasc] 5 mg PO DAILY 07/25/20 02/06/22 History carvediloL [Coreg] 3.125 mg PO BID 07/25/20 02/06/22 History Atorvastatin [Lipitor] 20 mg PO HS@199909/29/20 02/06/22 History clonazePAM [KlonoPIN] 0.5 mg PO HS@199909/29/20 02/06/22 History Darbepoetin Kurtis [Aranesp] 25 mcg SQ MO@2200 01/26/21 02/06/22 History Norethindrone [Chani] 0.35 mg PO DAILY 01/26/21 02/06/22 History clomiPRAMINE [Anafranil] 50 mg PO HS 01/26/21 02/06/22 History Ferrous Sulfate [Feosol] 325 mg PO BID #60 tab 01/31/21 02/06/22 Rx Acetaminophen Tab [Tylenol Tab] 500 mg PO TID@0800,1200,1800 02/06/22 02/06/22 History Apixaban [Eliquis] 5 mg PO BID 02/06/22 02/06/22 History Baclofen 5 mg PO BID@0500,1300 02/06/22 02/06/22 History Ergocalciferol [Vitamin D2 (1250 1,250 mcg PO Q14D 02/06/22 02/06/22 History Mcg = 45405 Iu)] HYDROcodone/APAP 7.5-325MG [[place] 1 tab PO Q8H PRN 02/06/22 02/06/22 History 7.5-325] Magnesium Hydroxide [Milk of 2,400 mg PO Q72H PRN 02/06/22 02/06/22 History Magnesia] Melatonin 5 mg PO HS@199902/06/22 02/06/22 History Na Phos,M-B/Na Phos,Di-Ba [Fleet 133 ml RECTAL DAILY PRN 02/06/22 02/06/22 History Adult] Sodium Bicarbonate 650 mg PO BID 02/06/22 02/06/22 History bisacodyL [Dulcolax] 10 mg RECTAL DAILY PRN 02/06/22 02/06/22 History glipiZIDE XL [Glucotrol XL] 2.5 mg PO DAILY@0700 02/06/22 02/06/22 History polyethylene glycoL 3350 [Miralax] 17 gm PO DAILY 02/06/22 02/06/22 History Allergies Allergy/AdvReac Type Severity Reaction Status Date / Time aspirin Allergy Rash/Hives Verified 02/06/22 10:50 sertraline HCl [From Zoloft] Allergy Unknown Verified 02/06/22 10:50 zolpidem tartrate Allergy Unknown Verified 02/06/22 10:50 [From Ambien] gabapentin [From Neurontin] AdvReac Severe SEVERE Verified 02/06/22 10:50 AGITATION ibuprofen [From Motrin] AdvReac AVOIDS D/T Verified 02/06/22 10:50 KIDNEY FUNCTION Physical Exam Vitals: Vital Signs Temp Pulse Pulse Resp BP BP Pulse Ox 02/07/22 07:34 96 02/07/22 06:58 99 F 112 H 19 111/74 97 02/07/22 06:32 98.1 F 111 H 16 109/67 96 02/07/22 02:00 18 02/07/22 01:23 98.2 F 125 H 19 123/68 92 L 02/06/22 20:08 98.1 F 110 H 18 137/76 93 L 02/06/22 20:00 110 H 02/06/22 16:59 110 H 18 122/82 97 02/06/22 15:07 96 18 128/70 100 02/06/22 15:00 98.3 F 110 H 20 107/72 02/06/22 12:25 85 18 105/72 100 Intake and Output 02/06/22 02/07/22 02/07/22 22:59 06:59 14:59 Intake Total 180 Output Total 300 Balance -300 180 Intake: Oral 180 Output: Urine 300 Other: Voiding Method External Catheter External Catheter External Catheter # Voids 2 # Bowel Movements 1 Weight 110.495 kg GENERAL DESCRIPTION: Middle-aged female lying in bed, no distress. No tachypnea or accessory muscle of respiration use. HEENT: Shows Pallor , no scleral icterus. Oral mucous membrane is dry. No pharyngeal erythema or thrush NECK: Trachea central, no thyromegaly. LUNGS: Unlabored breathing. Clear to auscultation anteriorly. No wheeze or crackle. HEART: S1, S2, regular rate and rhythm. No loud murmur ABDOMEN: Soft, no tenderness , guarding or rigidity, no organomegaly EXTREMITIES: No edema of feet. SKIN: No rash, no masses palpable. NEUROLOGICAL: The patient is awake, alert, oriented x3, mood and affect normal. Results CBC & Chem 7: 02/16/22 06:35 02/16/22 06:35 Labs: Abnormal Lab Results - Last 24 Hours (Table) 02/06/22 02/06/22 02/06/22 Range/Units 11:29 11:51 12:39 ABG pH 7.30 L (7.35-7.45) ABG pCO2 53 H (35-45) mmHg ABG HCO3 26 H (21-25) mmol/L ABG Total CO2 27 H (19-24) mmol/L ABG O2 Saturation 98.9 H (94-97) % Carbon Dioxide (20.0-27.5) mmol/L BUN (9.0-27.0) mg/dL Creatinine (0.6-1.5) mg/dL Est GFR (CKD-EPI)AfAm (60.0-200.0) Est GFR (CKD-EPI)NonAf (60.0-200.0) BUN/Creatinine Ratio (12.00-20.00) Ratio POC Glucose (mg/dL) 156 H (70-110) mg/dL Calcium (8.7-10.3) mg/dL Urine Appearance Cloudy H (Clear) Urine Protein 2+ H (Negative) Urine Glucose (UA) Trace H (Negative) Urine Blood Small H (Negative) Urine Nitrite Positive H (Negative) Ur Leukocyte Esterase Large H (Negative) Urine WBC 25 H (0-5) /hpf Urine WBC Clumps Few H (None) /hpf Urine Bacteria Many H (None) /hpf Urine Mucus Rare H (None) /hpf 02/06/22 02/07/22 Range/Units 20:16 06:16 ABG pH (7.35-7.45) ABG pCO2 (35-45) mmHg ABG HCO3 (21-25) mmol/L ABG Total CO2 (19-24) mmol/L ABG O2 Saturation (94-97) % Carbon Dioxide 19.3 L (20.0-27.5) mmol/L BUN 37.2 H (9.0-27.0) mg/dL Creatinine 3.2 H (0.6-1.5) mg/dL Est GFR (CKD-EPI)AfAm 20.6 L (60.0-200.0) Est GFR (CKD-EPI)NonAf 17.8 L (60.0-200.0) BUN/Creatinine Ratio 11.63 L (12.00-20.00) Ratio POC Glucose (mg/dL) 114 H (70-110) mg/dL Calcium 7.9 L (8.7-10.3) mg/dL Urine Appearance (Clear) Urine Protein (Negative) Urine Glucose (UA) (Negative) Urine Blood (Negative) Urine Nitrite (Negative) Ur Leukocyte Esterase (Negative) Urine WBC (0-5) /hpf Urine WBC Clumps (None) /hpf Urine Bacteria (None) /hpf Urine Mucus (None) /hpf Microbiology - Last 24 Hours (Table) 02/06/22 11:51 Urine Culture - Preliminary Urine,Catheterized Assessment and Plan (1) UTI (urinary tract infection) Current Visit: No Status: Acute Code(s): N39.0 - URINARY TRACT INFECTION, SITE NOT SPECIFIED SNOMED Code(s): 37568342 Plan: 1patient is in the hospital with mental status changes weakness and a fall which is likely multifactorial in this patient who did have a positive UA some urinary symptoms concerning for symptomatic UTI likely from enteric gram- negative pathogen however the patient do have a history of ESBL E. coli infec tion and will need to cover for ESBL until the cultures are finalized. 2patient did have elevated BUN and creatinine rule out obstructive uropathy. 3discontinue Rocephin. 4we will start the patient on Invanz while waiting for the culture to finalize. 5check ultrasound of the kidneys and bladder area to rule out obstructive uropathy. We will follow on clinical condition and cultures to further adjust medication if needed Thank you for this consultation will follow this patient along with you Time with Patient: Greater than 30
[2022-02-08] MEDS: HYDROcodone/APAP 7.5-325MG 1 EACH TAB PO PRN ×3 (03:04→20:12)
[2022-02-08] MEDS: BACLOFEN 10 MG TAB PO SCH ×4 (06:37→20:12)
[2022-02-08 06:40] LABS: Glucose,Whole Blood 152 mg/dL (70-110)
[2022-02-08] MEDS: carvediloL 3.125 MG TAB PO SCH ×2 (07:07→18:14)
[2022-02-08] MEDS: INSULIN ASPART (NovoLOG) 100 UNIT/ML VIAL SQ SCH ×4 (07:11→20:11)
[2022-02-08 07:32] LABS: Glucose,Whole Blood 148 mg/dL (70-110)
[2022-02-08] MEDS: SODIUM CHLORIDE 0.9% 1,000 ML IV SCH (08:23)
--- NOTE | 2022-02-08 08:36 | P.PN ---
Subjective Progress Note Date: 02/07/22 Patient is a 36-year-old female with a known history of CVA with right-sided weakness, cognitive impairment, history of gastric bypass surgery, history of DVT on anticoagulation was sent to ER from [facility] due to altered mental status. Patient had a fall from bed at [facility] yesterday and landed on her bilateral knees. Denied any hitting her head. Patient had x-ray and knee CT done in the ER yesterday showed nondisplaced hairline fracture of the distal femur involving the intercondylar distal femur. She was placed on knee immobilizer and was given Toradol and morphine at 1 AM and was sent back to [facility]. Today morning patient was found to be nonresponsive and difficult to arouse. Patient also received baclofen 5 mg at 5 AM and another 5 mg at 1 PM and also 10 mg at 8 PM. Patient was not discharged back on any medications. Patient has been very lethargic and delayed in answering questions appropriately. Otherwise patient did not have any fever. Patient has been on oxygen at 2 L via nasal cannula since her COVID infection. Does have history of ESBL urinary tract infection. Patient does have CKD with baseline creatinine level around 3.0. Laboratory test showed WBC 8.8 hemoglobin 7.9 and platelets 373 ABG showed pH 7.3 PCO2 53 and PO2 104 Sodium 136 potassium 4.5 chloride 103 bicarb is 26 BUN 39 and creatinine 3.47 Blood sugar is 191 Liver enzymes are not elevated. Albumin 2.8 and troponin x1 negative ammonia level is less than 9 Urinalysis showed cloudy with 2+ protein trace glucose nitrite positive and large leukocyte esterase and elevated WBCs. 02/07/2022 Patient is currently lying alert. Awake alert and oriented. Otherwise patient is screaming with pain. Requesting her [place] and baclofen to be restarted. No complaints of nausea or vomiting. Tolerating oral diet. Antibiotics changed to Invanz due to prior history of ESBL urinary tract infection. Patient is also on left lower extremity immobilizer due to HiLINE fracture. Patient has been afebrile. But tachycardic. Pulse ox 93% on 2 L oxygen via nasal cannula. Laboratory data showed WBC 9.3 hemoglobin 8.3 and platelets 351 and blood sugar is 226 ID is on board. Current medications reviewed. Objective - Vital Signs Vital signs: Vital Signs Temp 98.2 F 02/08/22 07:07 Pulse 128 H 02/08/22 07:07 Resp 24 02/08/22 07:07 BP 125/77 02/08/22 07:07 Pulse Ox 100 02/08/22 07:07 FiO2 Intake & Output 02/07/22 02/08/22 02/08/22 18:59 06:59 18:59 Intake Total 670 500 Output Total 500 900 350 Balance 170 -400 -350 Intake: Oral 360 500 Blood Product 310 Rc As-1 Unit 310 [id number] Output: Urine 500 900 350 Other: Voiding Method External Catheter External Catheter # Bowel Movements 2 - Exam PHYSICAL EXAMINATION: Patient is lying in the bed comfortably, no acute distress, awake alert and oriented.. Screaming with pain. HEENT: Normocephalic. Neck is supple. Pupils reactive. Nostrils clear. Oral cavity is moist. Neck reveals no JVD, carotid bruits, or thyromegaly. CHEST EXAMINATION: Trachea is central. Symmetrical expansion. Lung guadalupe clear to auscultation and percussion. CARDIAC: Normal S1, S2 with no gallops. No murmurs ABDOMEN: Soft. Bowel sounds present. Nontender. No organomegaly. No abdominal bruits. Extremities: reveal no edema. Left lower extremity immobilizer in place. Right foot drop. No clubbing or cyanosis Neurologically awake, alert, oriented x3 . Right-sided weakness.: No rash or skin lesions. Psychiatric: Coperative. Musculoskeletal: No joint swelling or deformity. - Labs CBC & Chem 7: 02/07/22 20:14 02/07/22 06:16 Labs: Abnormal Lab Results - Last 24 Hours (Table) 02/07/22 02/07/22 02/07/22 Range/Units 06:16 06:16 12:19 RBC 2.59 L (4.10-5.20) X 10*6/uL Hgb 6.8 L* (12.0-15.0) g/dL Hct 23.1 L (37.2-46.3) % MCH 26.3 L (27.0-32.0) pg MCHC 29.4 L (32.0-37.0) g/dL RDW 15.2 H (11.5-14.5) % MPV 9.3 L (9.5-12.2) fL Immature Gran # 0.09 H (0.00-0.04) X 10*3/uL Neutrophils # 7.77 H (1.80-7.70) X 10*3/uL Lymphocytes # (1.0-4.8) k/uL Carbon Dioxide 19.3 L (20.0-27.5) mmol/L BUN 37.2 H (9.0-27.0) mg/dL Creatinine 3.2 H (0.6-1.5) mg/dL Est GFR (CKD-EPI)AfAm 20.6 L (60.0-200.0) Est GFR (CKD-EPI)NonAf 17.8 L (60.0-200.0) BUN/Creatinine Ratio 11.63 L (12.00-20.00) Ratio POC Glucose (mg/dL) 209 H (70-110) mg/dL Calcium 7.9 L (8.7-10.3) mg/dL Crossmatch 02/07/22 02/07/22 02/07/22 Range/Units 12:38 16:52 20:10 RBC (4.10-5.20) X 10*6/uL Hgb (12.0-15.0) g/dL Hct (37.2-46.3) % MCH (27.0-32.0) pg MCHC (32.0-37.0) g/dL RDW (11.5-14.5) % MPV (9.5-12.2) fL Immature Gran # (0.00-0.04) X 10*3/uL Neutrophils # (1.80-7.70) X 10*3/uL Lymphocytes # (1.0-4.8) k/uL Carbon Dioxide (20.0-27.5) mmol/L BUN (9.0-27.0) mg/dL Creatinine (0.6-1.5) mg/dL Est GFR (CKD-EPI)AfAm (60.0-200.0) Est GFR (CKD-EPI)NonAf (60.0-200.0) BUN/Creatinine Ratio (12.00-20.00) Ratio POC Glucose (mg/dL) 182 H 226 H (70-110) mg/dL Calcium (8.7-10.3) mg/dL Crossmatch See Detail 02/07/22 02/08/22 02/08/22 Range/Units 20:14 06:38 07:30 RBC 3.02 L (4.10-5.20) X 10*6/uL Hgb 8.3 L (12.0-15.0) g/dL Hct 27.0 L (37.2-46.3) % MCH (27.0-32.0) pg MCHC 30.6 L (32.0-37.0) g/dL RDW (11.5-14.5) % MPV (9.5-12.2) fL Immature Gran # (0.00-0.04) X 10*3/uL Neutrophils # (1.80-7.70) X 10*3/uL Lymphocytes # 0.8 L (1.0-4.8) k/uL Carbon Dioxide (20.0-27.5) mmol/L BUN (9.0-27.0) mg/dL Creatinine (0.6-1.5) mg/dL Est GFR (CKD-EPI)AfAm (60.0-200.0) Est GFR (CKD-EPI)NonAf (60.0-200.0) BUN/Creatinine Ratio (12.00-20.00) Ratio POC Glucose (mg/dL) 152 H 148 H (70-110) mg/dL Calcium (8.7-10.3) mg/dL Crossmatch Microbiology - Last 24 Hours (Table) 02/06/22 11:51 Urine Culture - Preliminary Urine,Catheterized Gram Neg Bacilli 02/06/22 13:00 Blood Culture - Preliminary Blood No Growth after 24 hours Assessment and Plan Assessment: Altered mental status possible metabolic and toxic neuropathy.Patient received multiple dose of baclofen and morphine 4 mg x 1. improved, Acute urinary tract infection with prior history of ESBL Nondisplaced hairline fracture of the distal femur involving the intracondylar distal femur. Status post fall from her bed and landed on her knees. Status post knee immobilizer.Was seen in the ER and sent back to [facility] Morbid obesity History of CVA with right-sided weakness Gastric bypass surgery in 2016 Anxiety/depression and panic disorder History of DVT on anticoagulation with Eliquis Normocytic anemia/anemia of chronic disease with hemoglobin 7.9 Acute on CKD stage IV with baseline creatinine around 3.0 DVT prophylaxis patient is already on Eliquis Plan: Patient will be continued on IV hydration with normal saline and limit narcotic pain medications. Patient was given a dose of Zosyn in the ER. Patient was started on Invanz due to prior history of ESBL E. coli. ID is on board. With [place] and baclofen as per her home regimen. Avoid IV pain medications.. Continue with home medications and follow-up closely. Time with Patient: Greater than 30
--- NOTE | 2022-02-08 08:51 | US ---
EXAMINATION TYPE: US kidneys/renal and bladder DATE OF EXAM: 02/08/2022 COMPARISON: NONE CLINICAL HISTORY: uti and bacteremia. uti exam limited due to body habitus and unable to roll. Patien t states right kidney isn't functioning. EXAM MEASUREMENTS: Right Kidney: limited 9.1 x 6.3 x 4.9 cm Left Kidney: Atrophic limited 6.1 x 2.3 x 3.5 cm Right Kidney: No hydronephrosis or masses seen Left Kidney: No hydronephrosis or masses seen Bladder: Anechoic Bilateral Jets seen: Left only IMPRESSION: 1. Left kidney appears small and atrophic. Left ureteral jet is identified. 2. Limited evaluation of the right kidney. No obvious abnormality. 3. Evaluation is limited due to body habitus and patient's physical condition.
[2022-02-08] MEDS: ACETAMINOPHEN TAB 325 MG TAB PO PRN (08:56)
[2022-02-08] MEDS: amLODIPine 5 MG TAB PO SCH (08:56)
[2022-02-08] MEDS: APIXABAN 5 MG TAB PO SCH ×2 (08:56→20:12)
[2022-02-08] MEDS: SODIUM BICARBONATE TAB 650 MG TAB PO SCH ×2 (08:56→20:12)
--- NOTE | 2022-02-08 09:18 | XR ---
EXAMINATION TYPE: XR chest 1V DATE OF EXAM: 02/08/2022 COMPARISON: 02/06/2022 INDICATION: Short of breath TECHNIQUE: Single frontal view of the chest is obtained. FINDINGS: The heart size is mildly prominent. The pulmonary vasculature is normal. Diffuse increased lung markings are present, worsening over the interval. Correlate for pulmonary jaky ma. Pneumonia could be considered. Degree of inspiration is limited. IMPRESSION: 1. Worsening diffuse bilateral lung infiltrates. Correlate for pulmonary edema and pneumonia.
[2022-02-08 09:50] LABS: Basophils % (A) 0 %; Eosinophils # (A) 0.2 k/uL (0-0.7); Eosinophils % (A) 2 %; HCT 26.3 % (34.0-46.0); HGB 8.1 gm/dL (11.4-16.0); Hypochromasia Marked; Lymphocytes # (A) 0.7 k/uL (1.0-4.8); Lymphocytes % (A) 7 %; MCH 27.2 pg (25.0-35.0); MCHC 30.7 g/dL (31.0-37.0); MCV 88.8 fL (80.0-100.0); Mean Platelet Volume 8.1; Monocytes # (A) 0.5 k/uL (0-1.0); Monocytes % (A) 5 %; Neutrophils # (A) 7.6 k/uL (1.3-7.7); Neutrophils % (A) 84 %; Platelet Count 349 k/uL (150-450); Poikilocytosis Moderate; RBC 2.96 m/uL (3.80-5.40); RDW 15.7 % (11.5-15.5)
[2022-02-08 10:01] LABS: African American GFR (CKD) 21 (>60 ml/min/1.73 sqM); Anion Gap 7 mmol/L; Blood Urea Nitrogen 36 mg/dL (7-17); Calcium 7.8 mg/dL (8.4-10.2); Carbon Dioxide 19 mmol/L (22-30); Chloride 111 mmol/L (98-107); Glucose 145 mg/dL (74-99); Non-African American GFR(CKD) 18 (>60 ml/min/1.73 sqM); Potassium 4.2 mmol/L (3.5-5.1); Sodium 137 mmol/L (137-145)
[2022-02-08 12:05] LABS: Glucose,Whole Blood 182 mg/dL (70-110)
--- NOTE | 2022-02-08 15:23 | P.CNPUL ---
History of Present Illness Consult date: 02/08/22 Requesting physician: Selina Rosen Reason for consult: dyspnea, hypoxemia, pneumonia, abnormal CXR/CT Chief complaint: Shortness of breath. History of present illness: Pulmonary consult dated 02/08/2022. 6-year-old female initially seen in the emergency department on February 06, for following, and mental status changes. The patient has a previous history of CVA, right-sided deficits, cognitive delay, gastric bypass, and DVT. The [facility] a local [facility], and she has been there since 2017. She apparently fell, and had an x-ray and computed tomography scan done, of her right knee, which showed a nondisplaced hairline fracture of the distal femur involving the intercondylar distal femur. She was placed in a knee immobilizer, given Toradol and morphine. She was then transferred back to the facility. She apparently was found to be poorly responsive by the nurse at the facility, and for that reason was transported back. We are asked to see her, because appare ntly she developed shortness of breath, and required oxygen therapy, and a higher rate than she normally getting. She's usually getting 2 L at the [facility], and currently she is on 6 L high flow oxygen, with excellent saturations. The patient is on saline at 75 mL an hour. She is seen today in room 628. White count 9, hemoglobin 8.1, hematocrit 26.3, and platelet count normal. D- dimer was 3.37. Sodium 137, potassium 4.2, chlorides 111, CO2 19, BUN 36, and creatinine 3.19. Interestingly, her N-terminal proBNP is 4190. Testing for an infection such as influenza, respiratory syncytial virus, and coronavirus, all negative. Arterial blood gases, at the day of admission, show pO2 of 104, pCO2 of 53 and pH of 7.3. In addition, she has gram-negative bacilli in her urine, and is currently on ertapenem. Initial chest x-ray on the , shows cardiomegaly, and low lung volumes, without an acute process. Follow-up chest x-ray shows diffuse bilateral infiltrates, which could be consistent with pneumonia or fluid overload. Review of Systems REVIEW OF SYSTEMS: CONSTITUTIONAL: [Negative.] NEUROLOGIC: [ Negative.] HEENT: [ Negative.] CARDIAC: Shortness of breath. PULMONARY: Shortness of breath. GI: [Negative.] : [Negative.] RHEUMATOLOGIC: [ Negative.] IMMUNOLOGIC: [ Negative.] ENDOCRINE: [Negative. ] DERMATOLOGIC: [Negative.] Past Medical History Past Medical History: CVA/TIA, Deep Vein Thrombosis (DVT), Myocardial Infarction ([place]) Additional Past Medical History / Comment(s): morbid obesity, pancreatitis, history of coma - 10/24/14 - until end december after suffering from a stroke. Last Myocardial Infarction Date:: 10/2014 History of Any Multi-Drug Resistant Organisms: ESBL, Other MDRO Date of last positivie culture/infection: 07/16/20 ESBL E.coli MDRO Source:: Urine-ESBL Past Surgical History: Cholecystectomy Additional Past Surgical History / Comment(s): Cystoscopy with placement of left double-J catheter 02/16/2018, Gastric bypass 2015 Past Anesthesia/Blood Transfusion Reactions: No Reported Reaction Past Psychological History: Anxiety, Depression, Panic Disorder Smoking Status: Never smoker Past Alcohol Use History: None Reported Additional Past Alcohol Use History / Comment(s): patient smoked in high school Past Drug Use History: Marijuana - Past Family History Father History Unknown: Yes Family Medical History: Cancer Additional Family Medical History / Comment(s): lung Medications and Allergies Home Medications Medication Instructions Recorded Confirmed Type FLUoxetine HCL [PROzac] 20 mg PO DAILY 02/15/18 02/06/22 History Levothyroxine Sodium [Synthroid] 25 mcg PO HS@199902/15/18 02/06/22 History Multivitamins, Thera [Multivitamin 1 tab PO DAILY 02/15/18 02/06/22 History (formulary)] Acetaminophen Tab [Tylenol] 650 mg PO Q6H PRN 09/03/18 02/06/22 History Baclofen 10 mg PO HS@199907/25/20 02/06/22 History Insulin Glargine,Hum.rec.anlog 27 unit SQ HS@199907/25/20 02/06/22 History [Lantus Solostar Pen] Sennosides/Docusate Sodium [Senna 2 cap PO HS@199907/25/20 02/06/22 History Plus 8.6-50 mg Softgel] amLODIPine [Norvasc] 5 mg PO DAILY 07/25/20 02/06/22 History carvediloL [Coreg] 3.125 mg PO BID 07/25/20 02/06/22 History Atorvastatin [Lipitor] 20 mg PO HS@199909/29/20 02/06/22 History clonazePAM [KlonoPIN] 0.5 mg PO HS@199909/29/20 02/06/22 History Darbepoetin Kurtis [Aranesp] 25 mcg SQ MO@2200 01/26/21 02/06/22 History Norethindrone [Chani] 0.35 mg PO DAILY 01/26/21 02/06/22 History clomiPRAMINE [Anafranil] 50 mg PO HS 01/26/21 02/06/22 History Ferrous Sulfate [Feosol] 325 mg PO BID #60 tab 01/31/21 02/06/22 Rx Acetaminophen Tab [Tylenol Tab] 500 mg PO TID@0800,1200,1800 02/06/22 02/06/22 History Apixaban [Eliquis] 5 mg PO BID 02/06/22 02/06/22 History Baclofen 5 mg PO BID@0500,1300 02/06/22 02/06/22 History Ergocalciferol [Vitamin D2 (1250 1,250 mcg PO Q14D 02/06/22 02/06/22 History Mcg = 25713 Iu)] HYDROcodone/APAP 7.5-325MG [[place] 1 tab PO Q8H PRN 02/06/22 02/06/22 History 7.5-325] Magnesium Hydroxide [Milk of 2,400 mg PO Q72H PRN 02/06/22 02/06/22 History Magnesia] Melatonin 5 mg PO HS@199902/06/22 02/06/22 History Na Phos,M-B/Na Phos,Di-Ba [Fleet 133 ml RECTAL DAILY PRN 02/06/22 02/06/22 History Adult] Sodium Bicarbonate 650 mg PO BID 02/06/22 02/06/22 History bisacodyL [Dulcolax] 10 mg RECTAL DAILY PRN 02/06/22 02/06/22 History glipiZIDE XL [Glucotrol XL] 2.5 mg PO DAILY@0700 02/06/22 02/06/22 History polyethylene glycoL 3350 [Miralax] 17 gm PO DAILY 02/06/22 02/06/22 History Allergies Allergy/AdvReac Type Severity Reaction Status Date / Time aspirin Allergy Rash/Hives Verified 02/06/22 10:50 sertraline HCl [From Zoloft] Allergy Unknown Verified 02/06/22 10:50 zolpidem tartrate Allergy Unknown Verified 02/06/22 10:50 [From Ambien] gabapentin [From Neurontin] AdvReac Severe SEVERE Verified 02/06/22 10:50 AGITATION ibuprofen [From Motrin] AdvReac AVOIDS D/T Verified 02/06/22 10:50 KIDNEY FUNCTION Physical Exam Osteopathic Statement: *. No significant issues noted on an osteopathic structural exam other than those noted in the History and Physical/Consult. Vitals: Vital Signs Temp Pulse Pulse Resp BP BP Pulse Ox 02/08/22 08:38 128 H 24 02/08/22 07:07 98.2 F 128 H 24 125/77 100 02/08/22 07:02 98 02/08/22 06:59 130 H 30 H 100 02/08/22 06:46 127 H 32 H 117/69 02/08/22 02:40 97.5 F L 76 17 150/85 98 02/08/22 01:41 16 02/07/22 20:00 16 02/07/22 19:35 99.2 F 81 18 142/82 98 02/07/22 17:34 98.1 F 123 H 16 154/80 96 Intake and Output 02/08/22 02/08/22 02/08/22 06:59 14:59 22:59 Intake Total 180 Output Total 900 350 Balance -900 -170 Intake: Oral 180 Output: Urine 900 350 Other: Voiding Method External Catheter External Catheter # Bowel Movements 2 No acute distress, oriented 3. No conversational dyspnea or use of accessory muscles. Currently on 6 L of oxygen. HEENT examination is grossly unremarkable. Neck supple. Full range of motion. No adenopathy thyromegaly or neck vein dist ention. Cardiovascular examination reveals regular rhythm rate. S1-S2 normal. No S3 or S4. No discernible murmur noted. Heart rate 105 bpm. Lungs reveal scattered bilateral rhonchi. No wheezes. No crackles. Breath sounds are equal bilaterally. 6 L saturation is 100%. Abdomen soft bowel sounds are heard. No masses or tenderness. Extremities are intact. No cyanosis clubbing or edema. Skin is without rash or lesion. Neurologic examination is brief but nonfocal. Results - Laboratory Findings CBC and BMP: 02/08/22 08:02 02/08/22 08:02 ABG ABG pH 7.30 (7.35-7.45) L 02/06/22 12:39 ABG pCO2 53 mmHg (35-45) H 02/06/22 12:39 ABG pO2 104 mmHg (83-108) 02/06/22 12:39 ABG O2 Saturation 98.9 % (94-97) H 02/06/22 12:39 PT/INR, D-dimer PT 10.4 sec (9.0-12.0) 02/06/22 09:52 INR 1.0 (<1.2) 02/06/22 09:52 D-Dimer 3.37 mg/L FEU (<0.60) H 02/08/22 08:02 Abnormal lab findings: Abnormal Labs 02/06/22 02/06/22 02/06/22 09:52 09:52 09:52 RBC 2.92 L Hgb 7.9 L Hct 26.0 L MCH MCHC 30.2 L RDW MPV Immature Gran # Neutrophils # Lymphocytes # 0.9 L APTT 30.4 H D-Dimer ABG pH ABG pCO2 ABG HCO3 ABG Total CO2 ABG O2 Saturation VBG pH VBG pCO2 Sodium 136 L Chloride Carbon Dioxide BUN 39 H Creatinine 3.47 H Est GFR (CKD-EPI)AfAm Est GFR (CKD-EPI)NonAf BUN/Creatinine Ratio Glucose 191 H POC Glucose (mg/dL) Calcium 8.0 L Total Bilirubin 0.1 L Total Protein 6.2 L Albumin 2.8 L Urine Appearance Urine Protein Urine Glucose (UA) Urine Blood Urine Nitrite Ur Leukocyte Esterase Urine WBC Urine WBC Clumps Urine Bacteria Urine Mucus Crossmatch 02/06/22 02/06/22 02/06/22 09:52 11:29 11:51 RBC Hgb Hct MCH MCHC RDW MPV Immature Gran # Neutrophils # Lymphocytes # APTT D-Dimer ABG pH ABG pCO2 ABG HCO3 ABG Total CO2 ABG O2 Saturation VBG pH 7.24 L VBG pCO2 62 H Sodium Chloride Carbon Dioxide BUN Creatinine Est GFR (CKD-EPI)AfAm Est GFR (CKD-EPI)NonAf BUN/Creatinine Ratio Glucose POC Glucose (mg/dL) 156 H Calcium Total Bilirubin Total Protein Albumin Urine Appearance Cloudy H Urine Protein 2+ H Urine Glucose (UA) Trace H Urine Blood Small H Urine Nitrite Positive H Ur Leukocyte Esterase Large H Urine WBC 25 H Urine WBC Clumps Few H Urine Bacteria Many H Urine Mucus Rare H Crossmatch 02/06/22 02/06/22 02/07/22 12:39 20:16 06:16 RBC 2.59 L Hgb 6.8 L* Hct 23.1 L MCH 26.3 L MCHC 29.4 L RDW 15.2 H MPV 9.3 L Immature Gran # 0.09 H Neutrophils # 7.77 H Lymphocytes # APTT D-Dimer ABG pH 7.30 L ABG pCO2 53 H ABG HCO3 26 H ABG Total CO2 27 H ABG O2 Saturation 98.9 H VBG pH VBG pCO2 Sodium Chloride Carbon Dioxide BUN Creatinine Est GFR (CKD-EPI)AfAm Est GFR (CKD-EPI)NonAf BUN/Creatinine Ratio Glucose POC Glucose (mg/dL) 114 H Calcium Total Bilirubin Total Protein Albumin Urine Appearance Urine Protein Urine Glucose (UA) Urine Blood Urine Nitrite Ur Leukocyte Esterase Urine WBC Urine WBC Clumps Urine Bacteria Urine Mucus Crossmatch 02/07/22 02/07/22 02/07/22 06:16 12:19 12:38 RBC Hgb Hct MCH MCHC RDW MPV Immature Gran # Neutrophils # Lymphocytes # APTT D-Dimer ABG pH ABG pCO2 ABG HCO3 ABG Total CO2 ABG O2 Saturation VBG pH VBG pCO2 Sodium Chloride Carbon Dioxide 19.3 L BUN 37.2 H Creatinine 3.2 H Est GFR (CKD-EPI)AfAm 20.6 L Est GFR (CKD-EPI)NonAf 17.8 L BUN/Creatinine Ratio 11.63 L Glucose POC Glucose (mg/dL) 209 H Calcium 7.9 L Total Bilirubin Total Protein Albumin Urine Appearance Urine Protein Urine Glucose (UA) Urine Blood Urine Nitrite Ur Leukocyte Esterase Urine WBC Urine WBC Clumps Urine Bacteria Urine Mucus Crossmatch See Detail 02/07/22 02/07/22 02/07/22 16:52 20:10 20:14 RBC 3.02 L Hgb 8.3 L Hct 27.0 L MCH MCHC 30.6 L RDW MPV Immature Gran # Neutrophils # Lymphocytes # 0.8 L APTT D-Dimer ABG pH ABG pCO2 ABG HCO3 ABG Total CO2 ABG O2 Saturation VBG pH VBG pCO2 Sodium Chloride Carbon Dioxide BUN Creatinine Est GFR (CKD-EPI)AfAm Est GFR (CKD-EPI)NonAf BUN/Creatinine Ratio Glucose POC Glucose (mg/dL) 182 H 226 H Calcium Total Bilirubin Total Protein Albumin Urine Appearance Urine Protein Urine Glucose (UA) Urine Blood Urine Nitrite Ur Leukocyte Esterase Urine WBC Urine WBC Clumps Urine Bacteria Urine Mucus Crossmatch 02/08/22 02/08/22 02/08/22 06:38 07:30 08:02 RBC Hgb Hct MCH MCHC RDW MPV Immature Gran # Neutrophils # Lymphocytes # APTT D-Dimer 3.37 H ABG pH ABG pCO2 ABG HCO3 ABG Total CO2 ABG O2 Saturation VBG pH VBG pCO2 Sodium Chloride Carbon Dioxide BUN Creatinine Est GFR (CKD-EPI)AfAm Est GFR (CKD-EPI)NonAf BUN/Creatinine Ratio Glucose POC Glucose (mg/dL) 152 H 148 H Calcium Total Bilirubin Total Protein Albumin Urine Appearance Urine Protein Urine Glucose (UA) Urine Blood Urine Nitrite Ur Leukocyte Esterase Urine WBC Urine WBC Clumps Urine Bacteria Urine Mucus Crossmatch 02/08/22 02/08/22 02/08/22 08:02 08:02 12:03 RBC 2.96 L Hgb 8.1 L Hct 26.3 L MCH MCHC 30.7 L RDW 15.7 H MPV Immature Gran # Neutrophils # Lymphocytes # 0.7 L APTT D-Dimer ABG pH ABG pCO2 ABG HCO3 ABG Total CO2 ABG O2 Saturation VBG pH VBG pCO2 Sodium Chloride 111 H Carbon Dioxide 19 L BUN 36 H Creatinine 3.19 H Est GFR (CKD-EPI)AfAm Est GFR (CKD-EPI)NonAf BUN/Creatinine Ratio Glucose 145 H POC Glucose (mg/dL) 182 H Calcium 7.8 L Total Bilirubin Total Protein Albumin Urine Appearance Urine Protein Urine Glucose (UA) Urine Blood Urine Nitrite Ur Leukocyte Esterase Urine WBC Urine WBC Clumps Urine Bacteria Urine Mucus Crossmatch - Diagnostic Findings Chest x-ray: image reviewed Assessment and Plan Assessment: Acute hypoxemic respiratory failure, likely on the basis of either pneumonia, and/or CHF. Alveolar hypoventilation, likely secondary to narcotics. History of CVA. History of deep vein thromboses. Prior history of myocardial infarction. S/P gastric bypass, 2016. History of pancreatitis. Prior history of urinary tract infections with extended spectrum beta-lactamase producing Escherichia coli. History of anxiety/depression. History of hypothyroidism. History of diabetes mellitus. Multiple other medical problems and comorbidities. Plan: Plan dated 02/08/2022. The patient continues on ertapenem for a gram-negative bacilli in her urine. She does have a prior history of multiple drug resistant organisms, including extended spectrum beta-lactamase producing E. coli. The patient's getting mark ine at 75 mL an hour, and oxygen at 6 L, with high flow nasal cannula. Labs, x- rays, and medications are all reviewed. The N-terminal proBNP that we ordered today was elevated at 4190. The pro-calcitonin level is pending. We will continue to follow make recommendations along the way. The patient appears to be relatively stable at this time. Time with Patient: Greater than 30
--- NOTE | 2022-02-08 15:53 | P.PN ---
Subjective Progress Note Date: 02/08/22 Principal diagnosis: fall and sob When seen this afternoon patient stated that she is feeling better. Denied having pain except in the left leg. No fevers, no chest pain or shortness of breath. The last night she was hypoxic on 2 L, was switched to 6 L nasal cannula. Objective - Vital Signs Vital signs: Vital Signs Temp 98.2 F 02/08/22 07:07 Pulse 128 H 02/08/22 08:38 Resp 24 02/08/22 08:38 BP 125/77 02/08/22 07:07 Pulse Ox 100 02/08/22 07:07 FiO2 Intake & Output 02/07/22 02/08/22 02/08/22 18:59 06:59 18:59 Intake Total 670 500 180 Output Total 500 900 350 Balance 170 -400 -170 Intake: Oral 360 500 180 Blood Product 310 Rc As-1 Unit 310 [id number] Output: Urine 500 900 350 Other: Voiding Method External Catheter External Catheter External Catheter # Bowel Movements 2 - Exam Constitutional: No acute distress, conversant, pleasant Eyes:Anicteric sclerae, moist conjunctiva, no lid-lag, PERRLA, ENMT: Oropharynx clear, no erythema, exudates Neck: Supple, FROM, no masses, or JVD, No carotid bruits, No thyromegaly Lungs: Clear to auscultation, Clear to percussion, Normal respiratory effort, no accessory muscle use Cardiovascular: Heart regular in rate and rhythm, No murmurs, gallops, or rubs, No peripheral edema Abdominal: Soft, Nontender, no guarding, rebound or rigidity, Normoactive bowel sounds, No hepatomegaly, No splenomegaly, No palpable mass Skin: Normal temperature, tone, texture, turgor, no induration, No subcutaneous nodules, No rash, lesions, No ulcers Extremities: No digital cyanosis, No clubbing, Pedal pulses intact and symmetrical, Radial pulses intact and symmetrical, No calf tenderness Psychiatric: Alert and oriented to person, place and time, appropriate affect, intact judgement Neuro: Gen. weakness - Labs CBC & Chem 7: 02/08/22 08:02 02/08/22 08:02 Labs: Abnormal Lab Results - Last 24 Hours (Table) 02/07/22 02/07/22 02/07/22 Range/Units 12:38 16:52 20:10 RBC (3.80-5.40) m/uL Hgb (11.4-16.0) gm/dL Hct (34.0-46.0) % MCHC (31.0-37.0) g/dL RDW (11.5-15.5) % Lymphocytes # (1.0-4.8) k/uL D-Dimer (<0.60) mg/L FEU Chloride (98-107) mmol/L Carbon Dioxide (22-30) mmol/L BUN (7-17) mg/dL Creatinine (0.52-1.04) mg/dL Glucose (74-99) mg/dL POC Glucose (mg/dL) 182 H 226 H (70-110) mg/dL Calcium (8.4-10.2) mg/dL Crossmatch See Detail 02/07/22 02/08/22 02/08/22 Range/Units 20:14 06:38 07:30 RBC 3.02 L (3.80-5.40) m/uL Hgb 8.3 L (11.4-16.0) gm/dL Hct 27.0 L (34.0-46.0) % MCHC 30.6 L (31.0-37.0) g/dL RDW (11.5-15.5) % Lymphocytes # 0.8 L (1.0-4.8) k/uL D-Dimer (<0.60) mg/L FEU Chloride (98-107) mmol/L Carbon Dioxide (22-30) mmol/L BUN (7-17) mg/dL Creatinine (0.52-1.04) mg/dL Glucose (74-99) mg/dL POC Glucose (mg/dL) 152 H 148 H (70-110) mg/dL Calcium (8.4-10.2) mg/dL Crossmatch 02/08/22 02/08/22 02/08/22 Range/Units 08:02 08:02 08:02 RBC 2.96 L (3.80-5.40) m/uL Hgb 8.1 L (11.4-16.0) gm/dL Hct 26.3 L (34.0-46.0) % MCHC 30.7 L (31.0-37.0) g/dL RDW 15.7 H (11.5-15.5) % Lymphocytes # 0.7 L (1.0-4.8) k/uL D-Dimer 3.37 H (<0.60) mg/L FEU Chloride 111 H (98-107) mmol/L Carbon Dioxide 19 L (22-30) mmol/L BUN 36 H (7-17) mg/dL Creatinine 3.19 H (0.52-1.04) mg/dL Glucose 145 H (74-99) mg/dL POC Glucose (mg/dL) (70-110) mg/dL Calcium 7.8 L (8.4-10.2) mg/dL Crossmatch 02/08/22 Range/Units 12:03 RBC (3.80-5.40) m/uL Hgb (11.4-16.0) gm/dL Hct (34.0-46.0) % MCHC (31.0-37.0) g/dL RDW (11.5-15.5) % Lymphocytes # (1.0-4.8) k/uL D-Dimer (<0.60) mg/L FEU Chloride (98-107) mmol/L Carbon Dioxide (22-30) mmol/L BUN (7-17) mg/dL Creatinine (0.52-1.04) mg/dL Glucose (74-99) mg/dL POC Glucose (mg/dL) 182 H (70-110) mg/dL Calcium (8.4-10.2) mg/dL Crossmatch Microbiology - Last 24 Hours (Table) 02/06/22 13:00 Blood Culture - Preliminary Blood No Growth after 48 hours 02/06/22 11:51 Urine Culture - Preliminary Urine,Catheterized Gram Neg Bacilli Assessment and Plan Plan: Unresponsiveness likely metabolic and toxic encephalopathy versus hypoxia Continue to monitor Improved, mental status back to baseline Patient received multiple dose of baclofen and morphine 4 mg x 1. Acute urinary tract infection with prior history of ESBL Continue ertapenem Follow-up urine cultures Acute hypoxemic respiratory failure, likely on the basis of either pneumonia, and/or CHF. Alveolar hypoventilation, likely secondary to narcotics. Patient was seen by pulmonary service, pulmonary embolism unlikely due to treatment with anti-coagulation Continue O2 Discontinue IV fluids as BNP is high Check pro calcitonin Acute on chronic anemia She is status post 1 unit packed cells on 02/07 Follow-up hemoglobin Nondisplaced hairline fracture of the distal femur involving the intracondylar distal femur. Status post fall from her bed and landed on her knees. Status post knee immobilizer. Morbid obesity History of CVA with right-sided weakness Gastric bypass surgery in 2016 Anxiety/depression and panic disorder History of DVT on anticoagulation with Eliquis Normocytic anemia/anemia of chronic disease with hemoglobin 7.9 Acute on CKD stage IV with baseline creatinine around 3.0 DVT prophylaxis patient is already on Eliquis All stable Resume meds
[2022-02-08] MEDS: ERTAPENEM 0.5 GM in SODIUM CHLORIDE 0.9% 50 ML IVPB SCH (16:05)
[2022-02-08 17:15] LABS: Glucose,Whole Blood 178 mg/dL (70-110)
[2022-02-08 19:28] LABS: Glucose,Whole Blood 210 mg/dL (70-110)
[2022-02-08] MEDS: INSULIN DETEMIR (LEVEMIR) 100 UNIT/ML SYR SQ SCH (20:11)
[2022-02-08] MEDS: clonazePAM 0.5 MG TAB PO SCH (20:12)
[2022-02-08] MEDS: LEVOTHYROXINE 25 MCG TAB PO SCH (20:12)
[2022-02-08] MEDS: ATORVASTATIN 20 MG TAB PO SCH (20:12)
--- NOTE | 2022-02-08 20:39 | P.PN ---
Subjective Progress Note Date: 02/08/22 Principal diagnosis: Urinary tract infection Patient is a 36-year-old female with a past medical history significant for cognitive impairment CVA with right-sided weakness and a history of gastric bypass surgery patient was sent to the ER from the [facility] for evaluation of mental status changes, patient did have a positive UA concerning for possible symptomatic urinary tract infection with a previous history of ESBL E. coli. On today's evaluation her that is 02/08/2022, the patient denies having any fever or chills, patient is complaining of pain to the left lower extremity and wants more pain medication no chest pain shortness breath or cough no abdominal pain or diarrhea Objective - Vital Signs Vital signs: Vital Signs Temp 98.2 F 02/08/22 07:07 Pulse 128 H 02/08/22 08:38 Resp 24 02/08/22 08:38 BP 125/77 02/08/22 07:07 Pulse Ox 100 02/08/22 07:07 FiO2 Intake & Output 02/07/22 02/08/22 02/08/22 18:59 06:59 18:59 Intake Total 670 500 180 Output Total 500 900 350 Balance 170 -400 -170 Intake: Oral 360 500 180 Blood Product 310 Rc As-1 Unit 310 [id number] Output: Urine 500 900 350 Other: Voiding Method External Catheter External Catheter External Catheter # Bowel Movements 2 - Exam GENERAL DESCRIPTION: A middle-age female lying in bed in no distress RESPIRATORY SYSTEM: Unlabored breathing , decreased breath sounds at bases HEART: S1 S2 regular rate and rhythm , ABDOMEN: Soft , no tenderness EXTREMITIES: No edema feet - Labs CBC & Chem 7: 02/08/22 08:02 02/08/22 08:02 Labs: Abnormal Lab Results - Last 24 Hours (Table) 02/07/22 02/07/22 02/07/22 Range/Units 06:16 12:19 12:38 RBC 2.59 L (4.10-5.20) X 10*6/uL Hgb 6.8 L* (12.0-15.0) g/dL Hct 23.1 L (37.2-46.3) % MCH 26.3 L (27.0-32.0) pg MCHC 29.4 L (32.0-37.0) g/dL RDW 15.2 H (11.5-14.5) % MPV 9.3 L (9.5-12.2) fL Immature Gran # 0.09 H (0.00-0.04) X 10*3/uL Neutrophils # 7.77 H (1.80-7.70) X 10*3/uL Lymphocytes # (1.0-4.8) k/uL D-Dimer (<0.60) mg/L FEU Chloride (98-107) mmol/L Carbon Dioxide (22-30) mmol/L BUN (7-17) mg/dL Creatinine (0.52-1.04) mg/dL Glucose (74-99) mg/dL POC Glucose (mg/dL) 209 H (70-110) mg/dL Calcium (8.4-10.2) mg/dL Crossmatch See Detail 02/07/22 02/07/22 02/07/22 Range/Units 16:52 20:10 20:14 RBC 3.02 L (4.10-5.20) X 10*6/uL Hgb 8.3 L (12.0-15.0) g/dL Hct 27.0 L (37.2-46.3) % MCH (27.0-32.0) pg MCHC 30.6 L (32.0-37.0) g/dL RDW (11.5-14.5) % MPV (9.5-12.2) fL Immature Gran # (0.00-0.04) X 10*3/uL Neutrophils # (1.80-7.70) X 10*3/uL Lymphocytes # 0.8 L (1.0-4.8) k/uL D-Dimer (<0.60) mg/L FEU Chloride (98-107) mmol/L Carbon Dioxide (22-30) mmol/L BUN (7-17) mg/dL Creatinine (0.52-1.04) mg/dL Glucose (74-99) mg/dL POC Glucose (mg/dL) 182 H 226 H (70-110) mg/dL Calcium (8.4-10.2) mg/dL Crossmatch 02/08/22 02/08/22 02/08/22 Range/Units 06:38 07:30 08:02 RBC (4.10-5.20) X 10*6/uL Hgb (12.0-15.0) g/dL Hct (37.2-46.3) % MCH (27.0-32.0) pg MCHC (32.0-37.0) g/dL RDW (11.5-14.5) % MPV (9.5-12.2) fL Immature Gran # (0.00-0.04) X 10*3/uL Neutrophils # (1.80-7.70) X 10*3/uL Lymphocytes # (1.0-4.8) k/uL D-Dimer 3.37 H (<0.60) mg/L FEU Chloride (98-107) mmol/L Carbon Dioxide (22-30) mmol/L BUN (7-17) mg/dL Creatinine (0.52-1.04) mg/dL Glucose (74-99) mg/dL POC Glucose (mg/dL) 152 H 148 H (70-110) mg/dL Calcium (8.4-10.2) mg/dL Crossmatch 02/08/22 02/08/22 Range/Units 08:02 08:02 RBC 2.96 L (4.10-5.20) X 10*6/uL Hgb 8.1 L (12.0-15.0) g/dL Hct 26.3 L (37.2-46.3) % MCH (27.0-32.0) pg MCHC 30.7 L (32.0-37.0) g/dL RDW 15.7 H (11.5-14.5) % MPV (9.5-12.2) fL Immature Gran # (0.00-0.04) X 10*3/uL Neutrophils # (1.80-7.70) X 10*3/uL Lymphocytes # 0.7 L (1.0-4.8) k/uL D-Dimer (<0.60) mg/L FEU Chloride 111 H (98-107) mmol/L Carbon Dioxide 19 L (22-30) mmol/L BUN 36 H (7-17) mg/dL Creatinine 3.19 H (0.52-1.04) mg/dL Glucose 145 H (74-99) mg/dL POC Glucose (mg/dL) (70-110) mg/dL Calcium 7.8 L (8.4-10.2) mg/dL Crossmatch Microbiology - Last 24 Hours (Table) 02/06/22 11:51 Urine Culture - Preliminary Urine,Catheterized Gram Neg Bacilli 02/06/22 13:00 Blood Culture - Preliminary Blood No Growth after 24 hours Assessment and Plan (1) UTI (urinary tract infection) Current Visit: No Status: Acute Code(s): N39.0 - URINARY TRACT INFECTION, SITE NOT SPECIFIED SNOMED Code(s): 21522701 Plan: 1patient is in the hospital with mental status changes weakness and a fall which is likely multifactorial in this patient who did have a positive UA some urinary symptoms concerning for symptomatic UTI likely from enteric gram- negative pathogen however the patient do have a history of ESBL E. coli infection and will need to cover for ESBL until the cultures are finalized. 2patient did have elevated BUN and creatinine ultrasound didn't show any obstructive uropathy. 3patient to continue with Invanz while waiting for the culture to finalize. Time with Patient: Less than 30
[2022-02-09] MEDS: ACETAMINOPHEN TAB 325 MG TAB PO PRN ×2 (00:33→16:27)
[2022-02-09] MEDS: BACLOFEN 10 MG TAB PO SCH ×3 (04:06→20:57)
[2022-02-09] MEDS: HYDROcodone/APAP 7.5-325MG 1 EACH TAB PO PRN ×3 (04:06→18:13)
[2022-02-09 06:13] LABS: Glucose,Whole Blood 133 mg/dL (70-110)
[2022-02-09] MEDS: INSULIN ASPART (NovoLOG) 100 UNIT/ML VIAL SQ SCH ×4 (06:37→20:56)
[2022-02-09] MEDS: carvediloL 3.125 MG TAB PO SCH (06:58)
[2022-02-09 08:30] LABS: Basophils # (A) 0.03 X 10*3/uL (0.00-0.10); Basophils % (A) 0.3 %; Eosinophils # (A) 0.34 X 10*3/uL (0.04-0.35); HCT 22.6 % (37.2-46.3); Immature Grans, Automated 1.6 %; Lymphocytes % (A) 12.8 %; MCH 27.1 pg (27.0-32.0); MCV 87.6 fL (80.0-97.0); Mean Platelet Volume 9.5 fL (9.5-12.2); Monocytes # (A) 0.74 X 10*3/uL (0.20-1.00); Monocytes % (A) 8.6 %; NRBC Per 100 WBC 0.2 /100 WBCS (0.0-0.0); Neutrophils # (A) 6.24 X 10*3/uL (1.80-7.70); Neutrophils % (A) 72.7 %; Platelet Count 296 X 10*3/uL (140-440); RBC 2.58 X 10*6/uL (4.10-5.20); RDW 15.5 % (11.5-14.5); WBC 8.59 X 10*3/uL (4.50-10.00)
[2022-02-09] MEDS: APIXABAN 5 MG TAB PO SCH ×2 (08:32→20:57)
[2022-02-09] MEDS: amLODIPine 5 MG TAB PO SCH (08:32)
[2022-02-09] MEDS: SODIUM BICARBONATE TAB 650 MG TAB PO SCH ×2 (08:33→20:57)
[2022-02-09 08:54] LABS: ALT 15 U/L (8-44); AST 13 U/L (13-35); African American GFR (CKD) 18.5 (60.0-200.0); Albumin 2.5 g/dL (3.8-4.9); Albumin/Globulin Ratio 0.81 (1.60-3.17); Alkaline Phosphatase 93 U/L (41-126); BUN/Creat Ratio 10.83 Ratio (12.00-20.00); Blood Urea Nitrogen 37.9 mg/dL (9.0-27.0); Calcium 8.1 mg/dL (8.7-10.3); Carbon Dioxide 20.8 mmol/L (20.0-27.5); Chloride 106 mmol/L (96-109); Globulin 3.1 g/dL (1.6-3.3); Glucose 138 mg/dL (70-110); Magnesium 1.9 mg/dL (1.5-2.4); Non-African American GFR(CKD) 15.9 (60.0-200.0); Potassium 4.4 mmol/L (3.5-5.5); Sodium 139 mmol/L (135-145); Total Bilirubin <0.15 mg/dL (0.30-1.20); Total Protein 5.6 g/dL (6.2-8.2)
[2022-02-09] MEDS ORDERED: MORPHINE SULFATE 2 MG/ML SYRINGE IVP STA (10:02)
--- NOTE | 2022-02-09 10:47 | P.CRDCN ---
History of Present Illness Consult date: 02/09/22 History of present illness: History of Present Illness: The patient is a 36-year-old female with known history of CVA with left-sided weakness, chronic kidney disease, diabetes, hypertension and gastric bypass with questionable myocardial infarction at the same time a CVA who presented to the hospital for a fall and a fractured the left lower extremity subsequently was transferred back to her facilities and was brought back because of change of mental status. Cardiology consultation was requested secondary to elevation of her NT proBNP. The patient had mild dyspnea earlier, resolved, she is supine without dyspnea. She denies any chest discomfort today, she had mild respirophasic chest pain earlier. She denies any dizziness, palpitations or syncope. She has issues with short-term memory and cannot recall all the events. She has a prior history of chronic peripheral edema, unchanged. Her mentation is much better. On February 06 after a fall she had hairline nondisplaced fracture of the left distal femur and she was placed in a knee immobilizer. She is in sinus mechanism with no evidence of atrial fibrillation. She has a prior elevated NT proBNP. Her echocardiogram in July 2020 showed an ejection fraction of 50-55% with mild mitral and tricuspid regurgitation and no evidence of pulmonary hypertension. Her chest x-ray showed bilateral lung infiltrate. The patient has no history of malignant arrhythmia or recent anginal pain. Her coronary risk factors are positive for diabetes, hypertension, hyperlipidemia. She has been anticoagulated because of a history of DVT. Medications: Glucotrol, Klonopin, Coreg 3.125 mg twice a day, Norvasc 5 mg daily, insulin, Lipitor 20 g daily, Prozac, [place],Eliquis 5 mg twice a day Review of Systems: Respiratory: She has mild dyspnea on exertion but no recent wheezing GI: No nausea or vomiting . No history of peptic ulcer disease. No recent GI bleed. : No hematuria or dysuria, she has a history of chronic kidney disease. Nervous System: She has a prior history of stroke with left-sided weakness. Physical Examination: 36-year-old female, alert, in no apparent distress, supine no dyspnea ,Blood pressure 129/70, Heart rate 105, afebrile Head: Normocephalic. Eyes: Sclerae nonicteric. Neck: Good carotid upstroke, no bruit, no jugular venous distention. Lungs: Clear to auscultation, anteriorly. Heart: Regular rate and rhythm, S1-S2, no S3, no rub. No murmur. Abdomen: Soft nontender, positive bowel sounds no organomegaly. Extremities: 1+ edema, intact distal pulses, left-sided weakness, left leg in a brace. Labs: Hemoglobin 7.9, white blood cell 8.8, BUN 39, creatinine 3.47. Troponin less than 0.012. Her hemoglobin on the was 6.8 up to 7 today. Her BUN and creatinine are 37 and 3.5 today. Her NT proBNP is 4190 with Procalcitonin of 1.02. EKG: Sinus mechanism with no acute ST segment changes Impression: 1. Change in mental status, improved probably secondary to narcotics 2. Acute hypoxemia, improving probable pneumonia. The elevation of her NT proBNP could be related to her chronic kidney disease, on her lung examination and clinically she does not appear to be in acute CHF. 3. History of CVA with residual weakness 4. Prior history of DVT 5. History of diabetes 6. History of hypertension 7. History of hyperlipidemia 8. Status post gastric bypass 9. Severe anemia 10. Chronic kidney disease Plan: 1. I don't see indications for diuresis at this time 2. Obtain an echocardiogram with Doppler 3. Transfusion as clinically indicated 4. Obtain an echocardiogram with Doppler 5. Follow her renal functions 6. Depending on her progress further recommendations will be made. Thank you for this consult we will follow with you. Past Medical History Past Medical History: CVA/TIA, Deep Vein Thrombosis (DVT), Myocardial Infarction ([place]) Additional Past Medical History / Comment(s): morbid obesity, pancreatitis, history of coma - 10/24/14 - until end of december after suffering from a stroke. Last Myocardial Infarction Date:: 10/2014 History of Any Multi-Drug Resistant Organisms: ESBL, Other MDRO Date of last positivie culture/infection: 07/16/20 ESBL E.coli MDRO Source:: Urine-ESBL Past Surgical History: Cholecystectomy Additional Past Surgical History / Comment(s): Cystoscopy with placement of left double-J catheter 02/16/2018, Gastric bypass 2016 Past Anesthesia/Blood Transfusion Reactions: No Reported Reaction Past Psychological History: Anxiety, Depression, Panic Disorder Smoking Status: Never smoker Past Alcohol Use History: None Reported Additional Past Alcohol Use History / Comment(s): patient smoked in high school Past Drug Use History: Marijuana - Past Family History Father History Unknown: Yes Family Medical History: Cancer Additional Family Medical History / Comment(s): lung Medications and Allergies Home Medications Medication Instructions Recorded Confirmed Type FLUoxetine HCL [PROzac] 20 mg PO DAILY 02/15/18 02/06/22 History Levothyroxine Sodium [Synthroid] 25 mcg PO HS@199902/15/18 02/06/22 History Multivitamins, Thera [Multivitamin 1 tab PO DAILY 02/15/18 02/06/22 History (formulary)] Acetaminophen Tab [Tylenol] 650 mg PO Q6H PRN 09/03/18 02/06/22 History Baclofen 10 mg PO HS@199907/25/20 02/06/22 History Insulin Glargine,Hum.rec.anlog 27 unit SQ HS@199907/25/20 02/06/22 History [Lantus Solostar Pen] Sennosides/Docusate Sodium [Senna 2 cap PO HS@199907/25/20 02/06/22 History Plus 8.6-50 mg Softgel] amLODIPine [Norvasc] 5 mg PO DAILY 07/25/20 02/06/22 History carvediloL [Coreg] 3.125 mg PO BID 07/25/20 02/06/22 History Atorvastatin [Lipitor] 20 mg PO HS@199909/29/20 02/06/22 History clonazePAM [KlonoPIN] 0.5 mg PO HS@199909/29/20 02/06/22 History Darbepoetin Kurtis [Aranesp] 25 mcg SQ MO@2200 01/26/21 02/06/22 History Norethindrone [Chani] 0.35 mg PO DAILY 01/26/21 02/06/22 History clomiPRAMINE [Anafranil] 50 mg PO HS 01/26/21 02/06/22 History Ferrous Sulfate [Feosol] 325 mg PO BID #60 tab 01/31/21 02/06/22 Rx Acetaminophen Tab [Tylenol Tab] 500 mg PO TID@0800,1200,1800 02/06/22 02/06/22 History Apixaban [Eliquis] 5 mg PO BID 02/06/22 02/06/22 History Baclofen 5 mg PO BID@0500,1300 02/06/22 02/06/22 History Ergocalciferol [Vitamin D2 (1250 1,250 mcg PO Q14D 02/06/22 02/06/22 History Mcg = 33652 Iu)] HYDROcodone/APAP 7.5-325MG [[place] 1 tab PO Q8H PRN 02/06/22 02/06/22 History 7.5-325] Magnesium Hydroxide [Milk of 2,400 mg PO Q72H PRN 02/06/22 02/06/22 History Magnesia] Melatonin 5 mg PO HS@2000 02/06/22 02/06/22 History Na Phos,M-B/Na Phos,Di-Ba [Fleet 133 ml RECTAL DAILY PRN 02/06/22 02/06/22 History Adult] Sodium Bicarbonate 650 mg PO BID 02/06/22 02/06/22 History bisacodyL [Dulcolax] 10 mg RECTAL DAILY PRN 02/06/22 02/06/22 History glipiZIDE XL [Glucotrol XL] 2.5 mg PO DAILY@0700 02/06/22 02/06/22 History polyethylene glycoL 3350 [Miralax] 17 gm PO DAILY 02/06/22 02/06/22 History Allergies Allergy/AdvReac Type Severity Reaction Status Date / Time aspirin Allergy Rash/Hives Verified 02/06/22 10:50 sertraline HCl [From Zoloft] Allergy Unknown Verified 02/06/22 10:50 zolpidem tartrate Allergy Unknown Verified 02/06/22 10:50 [From Ambien] gabapentin [From Neurontin] AdvReac Severe SEVERE Verified 02/06/22 10:50 AGITATION ibuprofen [From Motrin] AdvReac AVOIDS D/T Verified 02/06/22 10:50 KIDNEY FUNCTION Physical Exam Vitals: Vital Signs Temp Pulse Resp BP Pulse Ox 02/09/22 09:00 100 02/09/22 06:45 98.0 F 115 H 16 129/78 97 02/09/22 02:00 98.3 F 121 H 18 123/86 97 02/08/22 20:00 116 H 19 02/08/22 19:31 98.4 F 116 H 19 154/74 99 02/08/22 18:14 112 H 131/81 02/08/22 14:00 112 H 20 02/08/22 13:41 98.1 F 112 H 20 108/71 100 Intake and Output 02/08/22 02/09/22 02/09/22 22:59 06:59 14:59 Intake Total 180 50 Output Total 600 500 Balance -420 -500 50 Intake: Oral 180 50 Output: Urine 600 500 Other: Voiding Method External Catheter # Bowel Movements 1 Results 02/09/22 04:44 02/09/22 04:44 Cardiac Enzymes 02/09/22 Range/Units 04:44 AST 13 (13-35) U/L CBC 02/09/22 Range/Units 04:44 WBC 8.59 (4.50-10.00) X 10*3/uL RBC 2.58 L (4.10-5.20) X 10*6/uL Hgb 7.0 L (12.0-15.0) g/dL Hct 22.6 L (37.2-46.3) % Plt Count 296 (140-440) X 10*3/uL Comprehensive Metabolic Panel 02/09/22 Range/Units 04:44 Sodium 139 (135-145) mmol/L Potassium 4.4 (3.5-5.5) mmol/L Chloride 106 (96-109) mmol/L Carbon Dioxide 20.8 (20.0-27.5) mmol/L BUN 37.9 H (9.0-27.0) mg/dL Creatinine 3.5 H (0.6-1.5) mg/dL Glucose 138 H (70-110) mg/dL Calcium 8.1 L (8.7-10.3) mg/dL AST 13 (13-35) U/L ALT 15 (8-44) U/L Alkaline Phosphatase 93 (41-126) U/L Total Protein 5.6 L (6.2-8.2) g/dL Albumin 2.5 L (3.8-4.9) g/dL Current Medications Generic Name Dose Route Start Last Admin Trade Name Freq PRN Reason Stop Dose Admin Acetaminophen 650 mg 02/07/22 03:27 02/09/22 00:33 Acetaminophen Tab 325 Mg Tab PO 650 mg Q6HR PRN Administration Fever and/ or Pain Hydrocodone Bitart/Acetaminophen 1 each 02/07/22 16:22 02/09/22 04:06 Hydrocodone/Apap 7.5-325mg 1 Each Tab PO 1 each Q8H PRN Administration Pain Amlodipine Besylate 5 mg 02/07/22 09:00 02/09/22 08:32 Amlodipine 5 Mg Tab PO 5 mg DAILY WILDER Administration Apixaban 5 mg 02/06/22 21:00 02/09/22 08:32 Apixaban 5 Mg Tab PO 5 mg BID WILDER Administration Protocol Atorvastatin Calcium 20 mg 02/07/22 20:00 02/08/22 20:12 Atorvastatin 20 Mg Tab PO 20 mg HS@1999 WILDER Administration Baclofen 5 mg 02/08/22 05:00 02/09/22 04:06 Baclofen 10 Mg Tab PO 5 mg BID@0500,1300 WILDER Administration Baclofen 10 mg 02/07/22 20:00 02/08/22 20:12 Baclofen 10 Mg Tab PO 10 mg HS@1999 WILDER Administration Carvedilol 3.125 mg 02/06/22 17:30 02/09/22 06:58 Carvedilol 3.125 Mg Tab PO 3.125 mg BID-W/MEALS WILDER Administration Clonazepam 0.5 mg 02/06/22 20:00 02/08/22 20:12 Clonazepam 0.5 Mg Tab PO 0.5 mg HS@1999 WILDER Administration Ertapenem 0.5 gm/ Sodium 50 mls @ 100 mls/hr 02/07/22 16:00 02/08/22 16:05 Chloride IVPB 100 mls/hr Q24H WILDER Administration Insulin Aspart 0 unit 02/07/22 17:30 02/09/22 06:37 Insulin Aspart (Novolog) 100 Unit/Ml Vial SQ Not Given ACHS [facility] Protocol Insulin Detemir 27 unit 02/06/22 20:00 02/08/22 20:11 Insulin Detemir (Levemir) 100 Unit/Ml Syr SQ 27 unit HS@1999 WILDER Administration Levothyroxine Sodium 25 mcg 02/06/22 20:00 02/08/22 20:12 Levothyroxine 25 Mcg Tab PO 25 mcg HS@1999 WILDER Administration Naloxone HCl 0.2 mg 02/06/22 12:28 Naloxone 0.4 Mg/Ml 1 Ml Vial IV Q2M PRN Opioid Reversal Sodium Bicarbonate 650 mg 02/06/22 21:00 02/09/22 08:33 Sodium Bicarbonate Tab 650 Mg Tab PO 650 mg BID WILDER Administration Intake and Output 02/08/22 02/09/22 02/09/22 22:59 06:59 14:59 Intake Total 180 50 Output Total 600 500 Balance -420 -500 50 Intake: Oral 180 50 Output: Urine 600 500 Other: Voiding Method External Catheter # Bowel Movements 1 02/09/22 04:44 02/09/22 04:44
[2022-02-09] MEDS ORDERED: MORPHINE SULFATE 2 MG/ML SYRINGE ONE (10:49)
--- NOTE | 2022-02-09 11:02 | P.PN ---
Subjective Progress Note Date: 02/09/22 Principal diagnosis: fall and sob Patient continues to have severe pain in both her legs left side more than right. Any movement of her legs will trigger pain. She denied having shortness of breath or chest pain. She still hypoxic however requiring 6 L of nasal cannula. No fevers or chills. No nausea or vomiting. Objective - Vital Signs Vital signs: Vital Signs Temp 98.0 F 02/09/22 06:45 Pulse 115 H 02/09/22 06:45 Resp 16 02/09/22 06:45 BP 129/78 02/09/22 06:45 Pulse Ox 100 02/09/22 09:00 FiO2 Intake & Output 02/08/22 02/09/22 02/09/22 18:59 06:59 18:59 Intake Total 540 50 Output Total 350 1100 Balance 190 -1100 50 Intake: Oral 540 50 Output: Urine 350 1100 Other: Voiding Method External Catheter External Catheter # Bowel Movements 1 - Exam Constitutional: No acute distress, conversant, pleasant Eyes:Anicteric sclerae, moist conjunctiva, no lid-lag, PERRLA, ENMT: Oropharynx clear, no erythema, exudates Neck: Supple, FROM, no masses, or JVD, No carotid bruits, No thyromegaly Lungs: Clear to auscultation, Clear to percussion, Normal respiratory effort, no accessory muscle use Cardiovascular: Heart regular in rate and rhythm, No murmurs, gallops, or rubs, No peripheral edema Abdominal: Soft, Nontender, no guarding, rebound or rigidity, Normoactive bowel sounds, No hepatomegaly, No splenomegaly, No palpable mass Skin: Normal temperature, tone, texture, turgor, no induration, No subcutaneous nodules, No rash, lesions, No ulcers Extremities: Severe pain with range of motion of the lower extremities. No digital cyanosis, No clubbing, Pedal pulses intact and symmetrical, Radial pulses intact and symmetrical, No calf tenderness Psychiatric: Alert and oriented to person, place and time, appropriate affect, intact judgement Neuro: Gen. weakness - Labs CBC & Chem 7: 02/09/22 04:44 02/09/22 04:44 Labs: Abnormal Lab Results - Last 24 Hours (Table) 02/07/22 02/08/22 02/08/22 Range/Units 12:38 11:28 12:03 RBC (4.10-5.20) X 10*6/uL Hgb (12.0-15.0) g/dL Hct (37.2-46.3) % MCHC (32.0-37.0) g/dL RDW (11.5-14.5) % Absolute Nucleated RBC (0.00-0.00) X 10*3/uL Immature Gran # (0.00-0.04) X 10*3/uL NRBC/100 WBC Diff (0.0-0.0) /100 WBCS BUN (9.0-27.0) mg/dL Creatinine (0.6-1.5) mg/dL Est GFR (CKD-EPI)AfAm (60.0-200.0) Est GFR (CKD-EPI)NonAf (60.0-200.0) BUN/Creatinine Ratio (12.00-20.00) Ratio Glucose (70-110) mg/dL POC Glucose (mg/dL) 182 H (70-110) mg/dL Calcium (8.7-10.3) mg/dL Total Bilirubin (0.30-1.20) mg/dL Total Protein (6.2-8.2) g/dL Albumin (3.8-4.9) g/dL Albumin/Globulin Ratio (1.60-3.17) g/dL Procalcitonin 1.02 H (0.02-0.09) ng/mL Crossmatch See Detail 02/08/22 02/08/22 02/09/22 Range/Units 17:14 19:26 04:44 RBC 2.58 L (4.10-5.20) X 10*6/uL Hgb 7.0 L (12.0-15.0) g/dL Hct 22.6 L (37.2-46.3) % MCHC 31.0 L (32.0-37.0) g/dL RDW 15.5 H (11.5-14.5) % Absolute Nucleated RBC 0.02 H (0.00-0.00) X 10*3/uL Immature Gran # 0.14 H (0.00-0.04) X 10*3/uL NRBC/100 WBC Diff 0.2 H (0.0-0.0) /100 WBCS BUN (9.0-27.0) mg/dL Creatinine (0.6-1.5) mg/dL Est GFR (CKD-EPI)AfAm (60.0-200.0) Est GFR (CKD-EPI)NonAf (60.0-200.0) BUN/Creatinine Ratio (12.00-20.00) Ratio Glucose (70-110) mg/dL POC Glucose (mg/dL) 178 H 210 H (70-110) mg/dL Calcium (8.7-10.3) mg/dL Total Bilirubin (0.30-1.20) mg/dL Total Protein (6.2-8.2) g/dL Albumin (3.8-4.9) g/dL Albumin/Globulin Ratio (1.60-3.17) g/dL Procalcitonin (0.02-0.09) ng/mL Crossmatch 02/09/22 02/09/22 Range/Units 04:44 06:11 RBC (4.10-5.20) X 10*6/uL Hgb (12.0-15.0) g/dL Hct (37.2-46.3) % MCHC (32.0-37.0) g/dL RDW (11.5-14.5) % Absolute Nucleated RBC (0.00-0.00) X 10*3/uL Immature Gran # (0.00-0.04) X 10*3/uL NRBC/100 WBC Diff (0.0-0.0) /100 WBCS BUN 37.9 H (9.0-27.0) mg/dL Creatinine 3.5 H (0.6-1.5) mg/dL Est GFR (CKD-EPI)AfAm 18.5 L (60.0-200.0) Est GFR (CKD-EPI)NonAf 15.9 L (60.0-200.0) BUN/Creatinine Ratio 10.83 L (12.00-20.00) Ratio Glucose 138 H (70-110) mg/dL POC Glucose (mg/dL) 133 H (70-110) mg/dL Calcium 8.1 L (8.7-10.3) mg/dL Total Bilirubin <0.15 L (0.30-1.20) mg/dL Total Protein 5.6 L (6.2-8.2) g/dL Albumin 2.5 L (3.8-4.9) g/dL Albumin/Globulin Ratio 0.81 L (1.60-3.17) g/dL Procalcitonin (0.02-0.09) ng/mL Crossmatch Microbiology - Last 24 Hours (Table) 02/06/22 11:51 Urine Culture - Final Urine,Catheterized Escherichia coli 02/06/22 13:00 Blood Culture - Preliminary Blood No Growth after 48 hours Assessment and Plan Plan: Unresponsiveness likely metabolic and toxic encephalopathy versus hypoxia Continue to monitor Improved, mental status back to baseline Patient received multiple dose of baclofen and morphine 4 mg x 1. Acute urinary tract infection with prior history of ESBL Continue ertapenem Urine cultures growing E. coli ESBL Acute hypoxemic respiratory failure, likely on the basis of either pneumonia, and/or CHF. Alveolar hypoventilation, likely secondary to narcotics. Patient was seen by pulmonary service, pulmonary embolism unlikely due to treatment with anti-coagulation Continue O2 Discontinue IV fluids as BNP is high Pro calcitonin elevated, she is covered with ertapenem Acute on chronic anemia She is status post 1 unit packed cells on 02/07 Hemoglobin continues to decline, will order CT of the left lower extremity to r/ u internal bleeding. Nondisplaced hairline fracture of the distal femur involving the intracondylar distal femur. Status post fall from her bed and landed on her knees. Status post knee immobilizer. Consult ortho Check X rays of bilateral lower extremities to r/u other fractures Morbid obesity History of CVA with right-sided weakness Gastric bypass surgery in 2016 Anxiety/depression and panic disorder History of DVT on anticoagulation with Eliquis Normocytic anemia/anemia of chronic disease with hemoglobin 7.9 Acute on CKD stage IV with baseline creatinine around 3.0 DVT prophylaxis patient is already on Eliquis All stable Resume meds
[2022-02-09 12:08] LABS: Glucose,Whole Blood 157 mg/dL (70-110)
--- NOTE | 2022-02-09 14:30 | P.PN ---
Subjective Progress Note Date: 02/09/22 Principal diagnosis: Dyspnea, hypoxemia, pneumonia, ESBL UTI 36-year-old female initially seen in the emergency department on February 06, for following, and mental status changes. The patient has a previous history of CVA, right-sided deficits, cognitive delay, gastric bypass, and DVT. The patient resides at a local [facility], and she has been there since 2017. She apparently fell, and had an x-ray and computed tomography scan done, of her right knee, which showed a nondisplaced hairline fracture of the distal femur involving the intercondylar distal femur. She was placed in a knee immobilizer, given Toradol and morphine. She was then transferred back to the facility. She apparently was found to be poorly responsive by the nurse at the facility, and for that reason was transported back. We are asked to see her, because apparently she developed shortness of breath, and required oxygen therapy, and a higher rate than she normally getting. She's usually getting 2 L at the f[facility], and currently she is on 6 L high flow oxygen, with excellent saturations. The patient is on saline at 75 mL an hour. She is seen today in room 628. White count 9, hemoglobin 8.1, hematocrit 26.3, and platelet count normal. D- dimer was 3.37. Sodium 137, potassium 4.2, chlorides 111, CO2 19, BUN 36, and creatinine 3.19. Interestingly, her N-terminal proBNP is 4190. Testing for an infection such as influenza, respiratory syncytial virus, and coronavirus, all negative. Arterial blood gases, at the day of admission, show pO2 of 104, pCO2 of 53 and pH of 7.3. In addition, she has gram-negative bacilli in her urine, and is currently on ertapenem. Initial chest x-ray on the , shows cardiomegaly, and low lung volumes, without an acute process. Follow-up chest x-ray shows diffuse bilateral infiltrates, which could be consistent with pneumonia or fluid overload. I'm reevaluating this patient today on 02/09/2022 on a general medical floor. She is currently sitting up in bed, on 4 L nasal cannula, in no acute distress. Patient is telling me that she is less short of breath this morning. Denies any cough, fever, orthopnea, chest pain. Vital signs remain stable, however, patient is slightly tachycardic this morning it 115 bpm. Heart rhythm is regular. Urine sample was positive for ESBL on 02/06/2022. She is covered with ertapenem, and infectious disease is following. Procalcitonin yesterday was elevated at 1.02. CBC from today is stable showing some anemia with a hemoglobin of 7, hematocrit 22.6, WBC count 8.6, platelets 296,000. She did receive a unit of PRBCs on 02/07/2022, and there are no overt signs of bleeding. Chest x-ray from yesterday 02/08/2022 shows worsening diffuse bilateral lung infiltrates. Her BNP from yesterday was 4190. Fluid balance over the last 24 hours is -900 ml. Objective - Vital Signs Vital signs: Vital Signs Temp 98.0 F 02/09/22 06:45 Pulse 115 H 02/09/22 08:00 Resp 16 02/09/22 06:45 BP 129/78 02/09/22 06:45 Pulse Ox 100 02/09/22 09:00 FiO2 Intake & Output 02/08/22 02/09/22 02/09/22 18:59 06:59 18:59 Intake Total 540 168 Output Total 350 1100 Balance 190 -1100 168 Intake: Oral 540 168 Output: Urine 350 1100 Other: Voiding Method External Catheter External Catheter External Catheter # Bowel Movements 1 - Exam No acute distress, oriented 3. No conversational dyspnea or use of accessory muscles. Currently on 4 L of oxygen. HEENT examination is grossly unremarkable. Neck supple. Full range of motion. No adenopathy thyromegaly or neck vein distention. Cardiovascular examination reveals regular rhythm rate. S1-S2 normal. No S3 or S4. No discernible murmur noted. Heart rate 115 bpm. Lungs reveal scattered bilateral rhonchi. No wheezes. No crackles. Breath sounds are equal bilaterally. . Abdomen soft bowel sounds are heard. No masses or tenderness. Extremities are intact. No cyanosis clubbing or edema. Skin is without rash or lesion. Neurologic examination is brief but nonfocal. - Labs CBC & Chem 7: 02/09/22 04:44 02/09/22 04:44 Labs: Abnormal Lab Results - Last 24 Hours (Table) 02/08/22 02/08/22 02/08/22 Range/Units 11:28 17:14 19:26 RBC (4.10-5.20) X 10*6/uL Hgb (12.0-15.0) g/dL Hct (37.2-46.3) % MCHC (32.0-37.0) g/dL RDW (11.5-14.5) % Absolute Nucleated RBC (0.00-0.00) X 10*3/uL Immature Gran # (0.00-0.04) X 10*3/uL NRBC/100 WBC Diff (0.0-0.0) /100 WBCS BUN (9.0-27.0) mg/dL Creatinine (0.6-1.5) mg/dL Est GFR (CKD-EPI)AfAm (60.0-200.0) Est GFR (CKD-EPI)NonAf (60.0-200.0) BUN/Creatinine Ratio (12.00-20.00) Ratio Glucose (70-110) mg/dL POC Glucose (mg/dL) 178 H 210 H (70-110) mg/dL Calcium (8.7-10.3) mg/dL Total Bilirubin (0.30-1.20) mg/dL Total Protein (6.2-8.2) g/dL Albumin (3.8-4.9) g/dL Albumin/Globulin Ratio (1.60-3.17) g/dL Procalcitonin 1.02 H (0.02-0.09) ng/mL 02/09/22 02/09/22 02/09/22 Range/Units 04:44 04:44 06:11 RBC 2.58 L (4.10-5.20) X 10*6/uL Hgb 7.0 L (12.0-15.0) g/dL Hct 22.6 L (37.2-46.3) % MCHC 31.0 L (32.0-37.0) g/dL RDW 15.5 H (11.5-14.5) % Absolute Nucleated RBC 0.02 H (0.00-0.00) X 10*3/uL Immature Gran # 0.14 H (0.00-0.04) X 10*3/uL NRBC/100 WBC Diff 0.2 H (0.0-0.0) /100 WBCS BUN 37.9 H (9.0-27.0) mg/dL Creatinine 3.5 H (0.6-1.5) mg/dL Est GFR (CKD-EPI)AfAm 18.5 L (60.0-200.0) Est GFR (CKD-EPI)NonAf 15.9 L (60.0-200.0) BUN/Creatinine Ratio 10.83 L (12.00-20.00) Ratio Glucose 138 H (70-110) mg/dL POC Glucose (mg/dL) 133 H (70-110) mg/dL Calcium 8.1 L (8.7-10.3) mg/dL Total Bilirubin <0.15 L (0.30-1.20) mg/dL Total Protein 5.6 L (6.2-8.2) g/dL Albumin 2.5 L (3.8-4.9) g/dL Albumin/Globulin Ratio 0.81 L (1.60-3.17) g/dL Procalcitonin (0.02-0.09) ng/mL 02/09/22 Range/Units 12:06 RBC (4.10-5.20) X 10*6/uL Hgb (12.0-15.0) g/dL Hct (37.2-46.3) % MCHC (32.0-37.0) g/dL RDW (11.5-14.5) % Absolute Nucleated RBC (0.00-0.00) X 10*3/uL Immature Gran # (0.00-0.04) X 10*3/uL NRBC/100 WBC Diff (0.0-0.0) /100 WBCS BUN (9.0-27.0) mg/dL Creatinine (0.6-1.5) mg/dL Est GFR (CKD-EPI)AfAm (60.0-200.0) Est GFR (CKD-EPI)NonAf (60.0-200.0) BUN/Creatinine Ratio (12.00-20.00) Ratio Glucose (70-110) mg/dL POC Glucose (mg/dL) 157 H (70-110) mg/dL Calcium (8.7-10.3) mg/dL Total Bilirubin (0.30-1.20) mg/dL Total Protein (6.2-8.2) g/dL Albumin (3.8-4.9) g/dL Albumin/Globulin Ratio (1.60-3.17) g/dL Procalcitonin (0.02-0.09) ng/mL Microbiology - Last 24 Hours (Table) 02/06/22 11:51 Urine Culture - Final Urine,Catheterized Escherichia coli 02/06/22 13:00 Blood Culture - Preliminary Blood No Growth after 48 hours Assessment and Plan Assessment: Acute hypoxemic respiratory failure, likely on the basis of either pneumonia, and/or CHF. Alveolar hypoventilation, likely secondary to narcotics. Urinary tract infection with ESBL. Covered on ertapenem Chronic anemia status post- PRBC transfusion History of CVA. History of deep vein thromboses. Prior history of myocardial infarction. S/P gastric bypass, 2016. History of pancreatitis. History of anxiety/depression. History of hypothyroidism. History of diabetes mellitus. Multiple other medical problems and comorbidities. Plan: Patient's medications, labs, x-ray were reviewed. Continue ertapenem for ESBL coverage Continue supplemental oxygen to maintain oxygen saturation 92% or greater BMP was elevated we'll consult cardiology for suspected heart failure. We will continue to follow I have personally seen and examined the patient, performed the documentation and the assessment and plan as written. Number of minutes spent on the visit: 10. Time with Patient: Less than 30
[2022-02-09] MEDS: ERTAPENEM 0.5 GM in SODIUM CHLORIDE 0.9% 50 ML IVPB SCH (15:53)
--- NOTE | 2022-02-09 16:15 | P.PN ---
Subjective Progress Note Date: 02/09/22 Principal diagnosis: Urinary tract infection Patient is a 36-year-old female with a past medical history significant for cognitive impairment CVA with right-sided weakness and a history of gastric bypass surgery patient was sent to the ER from the [facility] for evaluation of mental status changes, patient did have a positive UA concerning for possible symptomatic urinary tract infection with a previous history of ESBL E. coli. On today's evaluation her that is 02/09/2022, the patient remains to be afebrile, patient is still complaining of pain to the left lower extremity: Patient denies chest pain shortness breath or cough no abdominal pain or diarr hea Objective - Vital Signs Vital signs: Vital Signs Temp 98.0 F 02/09/22 06:45 Pulse 115 H 02/09/22 08:00 Resp 16 02/09/22 06:45 BP 129/78 02/09/22 06:45 Pulse Ox 100 02/09/22 09:00 FiO2 Intake & Output 02/08/22 02/09/22 02/09/22 18:59 06:59 18:59 Intake Total 540 50 Output Total 350 1100 Balance 190 -1100 50 Intake: Oral 540 50 Output: Urine 350 1100 Other: Voiding Method External Catheter External Catheter External Catheter # Bowel Movements 1 - Exam GENERAL DESCRIPTION: A middle-age female lying in bed in no distress RESPIRATORY SYSTEM: Unlabored breathing , decreased breath sounds at bases HEART: S1 S2 regular rate and rhythm , ABDOMEN: Soft , no tenderness EXTREMITIES: No edema feet - Labs CBC & Chem 7: 02/09/22 04:44 02/09/22 04:44 Labs: Abnormal Lab Results - Last 24 Hours (Table) 02/07/22 02/08/22 02/08/22 Range/Units 12:38 11:28 12:03 RBC (4.10-5.20) X 10*6/uL Hgb (12.0-15.0) g/dL Hct (37.2-46.3) % MCHC (32.0-37.0) g/dL RDW (11.5-14.5) % Absolute Nucleated RBC (0.00-0.00) X 10*3/uL Immature Gran # (0.00-0.04) X 10*3/uL NRBC/100 WBC Diff (0.0-0.0) /100 WBCS BUN (9.0-27.0) mg/dL Creatinine (0.6-1.5) mg/dL Est GFR (CKD-EPI)AfAm (60.0-200.0) Est GFR (CKD-EPI)NonAf (60.0-200.0) BUN/Creatinine Ratio (12.00-20.00) Ratio Glucose (70-110) mg/dL POC Glucose (mg/dL) 182 H (70-110) mg/dL Calcium (8.7-10.3) mg/dL Total Bilirubin (0.30-1.20) mg/dL Total Protein (6.2-8.2) g/dL Albumin (3.8-4.9) g/dL Albumin/Globulin Ratio (1.60-3.17) g/dL Procalcitonin 1.02 H (0.02-0.09) ng/mL Crossmatch See Detail 02/08/22 02/08/22 02/09/22 Range/Units 17:14 19:26 04:44 RBC 2.58 L (4.10-5.20) X 10*6/uL Hgb 7.0 L (12.0-15.0) g/dL Hct 22.6 L (37.2-46.3) % MCHC 31.0 L (32.0-37.0) g/dL RDW 15.5 H (11.5-14.5) % Absolute Nucleated RBC 0.02 H (0.00-0.00) X 10*3/uL Immature Gran # 0.14 H (0.00-0.04) X 10*3/uL NRBC/100 WBC Diff 0.2 H (0.0-0.0) /100 WBCS BUN (9.0-27.0) mg/dL Creatinine (0.6-1.5) mg/dL Est GFR (CKD-EPI)AfAm (60.0-200.0) Est GFR (CKD-EPI)NonAf (60.0-200.0) BUN/Creatinine Ratio (12.00-20.00) Ratio Glucose (70-110) mg/dL POC Glucose (mg/dL) 178 H 210 H (70-110) mg/dL Calcium (8.7-10.3) mg/dL Total Bilirubin (0.30-1.20) mg/dL Total Protein (6.2-8.2) g/dL Albumin (3.8-4.9) g/dL Albumin/Globulin Ratio (1.60-3.17) g/dL Procalcitonin (0.02-0.09) ng/mL Crossmatch 02/09/22 02/09/22 Range/Units 04:44 06:11 RBC (4.10-5.20) X 10*6/uL Hgb (12.0-15.0) g/dL Hct (37.2-46.3) % MCHC (32.0-37.0) g/dL RDW (11.5-14.5) % Absolute Nucleated RBC (0.00-0.00) X 10*3/uL Immature Gran # (0.00-0.04) X 10*3/uL NRBC/100 WBC Diff (0.0-0.0) /100 WBCS BUN 37.9 H (9.0-27.0) mg/dL Creatinine 3.5 H (0.6-1.5) mg/dL Est GFR (CKD-EPI)AfAm 18.5 L (60.0-200.0) Est GFR (CKD-EPI)NonAf 15.9 L (60.0-200.0) BUN/Creatinine Ratio 10.83 L (12.00-20.00) Ratio Glucose 138 H (70-110) mg/dL POC Glucose (mg/dL) 133 H (70-110) mg/dL Calcium 8.1 L (8.7-10.3) mg/dL Total Bilirubin <0.15 L (0.30-1.20) mg/dL Total Protein 5.6 L (6.2-8.2) g/dL Albumin 2.5 L (3.8-4.9) g/dL Albumin/Globulin Ratio 0.81 L (1.60-3.17) g/dL Procalcitonin (0.02-0.09) ng/mL Crossmatch Microbiology - Last 24 Hours (Table) 02/06/22 11:51 Urine Culture - Final Urine,Catheterized Escherichia coli 02/06/22 13:00 Blood Culture - Preliminary Blood No Growth after 48 hours Assessment and Plan (1) UTI (urinary tract infection) Current Visit: No Status: Acute Code(s): N39.0 - URINARY TRACT INFECTION, SITE NOT SPECIFIED SNOMED Code(s): 80722160 Plan: 1patient is in the hospital with mental status changes weakness and a fall which is likely multifactorial in this patient who did have a positive UA some urinary symptoms concerning for symptomatic UTI likely from enteric gram- negative pathogen however the patient do have a history of ESBL E. coli infection and will need to cover for ESBL until the cultures are finalized. 2patient did have elevated BUN and creatinine ultrasound didn't show any obstructive uropathy. 3patient urine has been finalized with ESBL E. coli patient is covered with Invanz and monitor clinical course closely Time with Patient: Less than 30
[2022-02-09 17:15] LABS: Glucose,Whole Blood 250 mg/dL (70-110)
[2022-02-09] MEDS: carvediloL 6.25 MG TAB PO SCH (17:33)
--- NOTE | 2022-02-09 17:33 | CA ---
Transthoracic Echo Report Name: Radha Chrsitensen Age: 36 Gender: F : 1985 Exam Date: 02/09/2022 13:26 Exam Location: [facility] Ht (in): 68 Wt (lb): 243 Ordering Physician: Boom Cruz DO Attending/Referring Phys: Graphic Editor Latoya Solano RDCS Procedure CPT: Indications: HTN Cardiac Hx: Technical Quality: Very technically difficult study Contrast 1: Lumason Total Dose (mL): 4 Contrast 2: Total Dose (mL): MEASUREMENTS (Male / Female) Normal Values 2D ECHO LV Diastolic Diameter PLAX 5.0 cm 4.2 - 5.9 / 3.9 - 5.3 cm LV Systolic Diameter PLAX 4.4 cm IVS Diastolic Thickness 1.2 cm 0.6 - 1.0 / 0.6 - 0.9 cm LVPW Diastolic Thickness 1.5 cm 0.6 - 1.0 / 0.6 - 0.9 cm LV Relative Wall Thickness 0.5 RV Internal Dim ED PLAX 3.5 cm M-MODE Aortic Root Diameter MM 2.8 cm LA Systolic Diameter MM 3.1 cm LA Ao Ratio MM 1.1 MV E Point Septal Separation 1.0 cm AV Cusp Separation MM 2.2 cm FINDINGS Left Ventricle Mild LVH. Left ventricular cavity size normal. Left ventricular ejection fraction is estimated at 50-55 %. Right Ventricle Normal right ventricular size and function. Right ventricular systolic pressure within normal limits. Right Atrium Normal right atrial size. Left Atrium Normal left atrial size. Mitral Valve Mitral valve thickened. Mild mitral regurgitation. Aortic Valve Trileaflet aortic valve. Tricuspid Valve Structurally normal tricuspid valve. Mild tricuspid regurgitation. Pulmonic Valve Pulmonic valve not well visualized. Pericardium Normal pericardium. Aorta Normal size aortic root and proximal ascending aorta. CONCLUSIONS Lumason ECHO contrast used for improved visualization of the endocardial borders (inadequate visualization of two or more contiguous segments). 1. The ventricle systolic function borderline normal 2. Mild mitral and tricuspid regurgitation Previewed by: Dr. Robert Joseph MD (Electronically Signed) Final Date: 09 February 2022 17:32
[2022-02-09 20:05] LABS: Glucose,Whole Blood 249 mg/dL (70-110)
[2022-02-09] MEDS: INSULIN DETEMIR (LEVEMIR) 100 UNIT/ML SYR SQ SCH (20:55)
[2022-02-09] MEDS: ATORVASTATIN 20 MG TAB PO SCH (20:56)
[2022-02-09] MEDS: clonazePAM 0.5 MG TAB PO SCH (20:56)
[2022-02-09] MEDS: LEVOTHYROXINE 25 MCG TAB PO SCH (20:57)
[2022-02-10] MEDS: HYDROcodone/APAP 7.5-325MG 1 EACH TAB PO PRN ×5 (00:07→23:01)
[2022-02-10] MEDS: BACLOFEN 10 MG TAB PO SCH ×3 (05:56→20:59)
[2022-02-10 06:31] LABS: African American GFR (CKD) 20 (>60 ml/min/1.73 sqM); Anion Gap 5 mmol/L; Blood Urea Nitrogen 40 mg/dL (7-17); Calcium 7.9 mg/dL (8.4-10.2); Carbon Dioxide 24 mmol/L (22-30); Chloride 110 mmol/L (98-107); Glucose 156 mg/dL (74-99); Magnesium 1.9 mg/dL (1.6-2.3); Non-African American GFR(CKD) 18 (>60 ml/min/1.73 sqM); Potassium 4.4 mmol/L (3.5-5.1); Sodium 139 mmol/L (137-145)
--- NOTE | 2022-02-10 07:36 | P.CNOR ---
History of Present Illness - HPI Consult date: 02/09/22 Consult reason: other (Hairline fracture of the left distal femur) History of present illness: History of Presenting Illness Patient is a pleasant 36-year-old female who presented to the ER from her facility for altered mental status change. Patient was seen on 02/05/2022 in the ER for a recent fall at her facility. Patient states that her left ankle had given out and she had fallen onto her bilateral knees. She had an x-ray and CT done at that visit of her left knee which demonstrated a nondisplaced hairline fracture of the left distal femur involving the intercondylar distal femur. Patient was provided a knee immobilizer to the left lower extremity, and returned to [facility]. Patient does have a history of a stroke. As a result of this patient has short-term memory loss. Our services were consulted during this hospital visit for the nondisplaced hairline fracture of the left distal femur. Patient denies any numbness tingling to bilateral lower extremities. She does report 4/10 pain at this time. Patient states she has had generalized pain since the fall. She has been working with physical therapy, nonweightbearing on left lower extremity. She states that she has been tolerating that activity the best she can. TTP over the left knee and ankle. There is slight bruising over the right knee. CT of the right knee during last ER visit was negative for fracture or displacement. Overall patient states she has noticed improvement in her pain and activity since the fall. Patient reports that her pain is managed on current regimen. She does state she has very sensitive sensation to her skin and was anxious during physical assessment. Patient has been afebrile, denies nausea/vomiting, or chest pain. Review of Systems Pertinent positives and negatives as discussed in HPI, a complete review of sy stems was performed and all other systems are negative. Physical Examination General: The patient is awake and alert, in no acute distress Skin: Skin is warm and dry with no obvious rashes or lesions. Hairy patches absent, no dorsal skin dimples, no cafe au lait spots, and no surgical incisions. Eye: Pupils are equal, round and reactive to light, extra-ocular movements are intact; there is normal conjunctiva bilaterally. Neck: The neck is supple, there is no tenderness and ROM intact. Cardiovascular: There is a regular rate and rhythm. No murmur, rub or gallop is appreciated. Respiratory: Lungs are clear to auscultation, respirations are non-labored, breath sounds are equal. Gastrointestinal: Soft, non-distended, non-tender abdomen. Back: There is no tenderness to palpation in the midline, paralumbar, parathoracic or buttocks region. There is no obvious deformity. Musculoskeletal: ROM limited secondary to pain and stiffness from surgical procedure. Shoulder abduction 5/5, elbow flexors 5/5, wrist dorsiflexors 5/5. finger abductor 5/5, funds development director 5/5, hip flexor 4/5, knee flexor 4/5, ankle dorsiflexor 4/5, ankle plantarflexion 4/5 and extensor hallucis 4/5. Neurological: CN 2-12 intact. There are no obvious motor or sensory deficits. Movement and coordination equal and intact. Sensory exam to light touch intact C5-T1 and intact from L2-S1. Reflexes 2/4 in bilateral upper and lower extremities. Negative Hoffmans, babinski, and clonus signs. Psychiatric: Cooperative, appropriate mood & affect, Short-term memory loss. Assessment and Plan Patient is a 36 neutral female who presents with a nondisplaced healing fracture left distal femur involving the intercondylar distal femur. There is no emergent need further surgical intervention at this time. Patient is to continue with knee immobilizer to the left lower extremity. Continue to work with physical therapy, NWB of the left lower extremity. We will continue to follow. 1. Nondisplaced hairline fracture of the left distal femur involving the intercondylar distal femur 2. Right Knee pain -No surgical intervention at this time -Continue with knee immobilizer to LLE -PT/OT- NWB on the LLE -Pain management -Ice and Elevate I reviewed and discussed this case with my attending Dr. Trevino, whom has reviewed this chart and films and is in agreement with assessment and plan of care as outlined above. I have personally seen and examined the patient, performed the documentation and the assessment and plan as written. Number of minutes spent on the visit: 20m. Past Medical History Past Medical History: CVA/TIA, Deep Vein Thrombosis (DVT), Myocardial Infarction ([place]) Additional Past Medical History / Comment(s): morbid obesity, pancreatitis, history of coma - 10/24/14 - until end of december after suffering from a stroke. Last Myocardial Infarction Date:: 10/2014 History of Any Multi-Drug Resistant Organisms: ESBL, Other MDRO Year Discovered:: 07/16/20 ESBL E.coli MDRO Source:: Urine-ESBL Past Surgical History: Cholecystectomy Additional Past Surgical History / Comment(s): Cystoscopy with placement of left double-J catheter 02/16/2018, Gastric bypass 2016 Past Anesthesia/Blood Transfusion Reactions: No Reported Reaction Past Psychological History: Anxiety, Depression, Panic Disorder Smoking Status: Never smoker Past Alcohol Use History: None Reported Additional Past Alcohol Use History / Comment(s): patient smoked in high school Past Drug Use History: Marijuana - Past Family History Father History Unknown: Yes Family Medical History: Cancer Additional Family Medical History / Comment(s): lung Medications and Allergies Home Medications Medication Instructions Recorded Confirmed Type FLUoxetine HCL [PROzac] 20 mg PO DAILY 02/15/18 02/06/22 History Levothyroxine Sodium [Synthroid] 25 mcg PO HS@199902/15/18 02/06/22 History Multivitamins, Thera [Multivitamin 1 tab PO DAILY 02/15/18 02/06/22 History (formulary)] Acetaminophen Tab [Tylenol] 650 mg PO Q6H PRN 09/03/18 02/06/22 History Baclofen 10 mg PO HS@199907/25/20 02/06/22 History Insulin Glargine,Hum.rec.anlog 27 unit SQ HS@199907/25/20 02/06/22 History [Lantus Solostar Pen] Sennosides/Docusate Sodium [Senna 2 cap PO HS@199907/25/20 02/06/22 History Plus 8.6-50 mg Softgel] amLODIPine [Norvasc] 5 mg PO DAILY 07/25/20 02/06/22 History carvediloL [Coreg] 3.125 mg PO BID 07/25/20 02/06/22 History Atorvastatin [Lipitor] 20 mg PO HS@199909/29/20 02/06/22 History clonazePAM [KlonoPIN] 0.5 mg PO HS@199909/29/20 02/06/22 History Darbepoetin Kurtis [Aranesp] 25 mcg SQ MO@2200 01/26/21 02/06/22 History Norethindrone [Chani] 0.35 mg PO DAILY 01/26/21 02/06/22 History clomiPRAMINE [Anafranil] 50 mg PO HS 01/26/21 02/06/22 History Ferrous Sulfate [Feosol] 325 mg PO BID #60 tab 01/31/21 02/06/22 Rx Acetaminophen Tab [Tylenol Tab] 500 mg PO TID@0800,1200,1800 02/06/22 02/06/22 History Apixaban [Eliquis] 5 mg PO BID 02/06/22 02/06/22 History Baclofen 5 mg PO BID@0500,1300 02/06/22 02/06/22 History Ergocalciferol [Vitamin D2 (1250 1,250 mcg PO Q14D 02/06/22 02/06/22 History Mcg = 36506 Iu)] HYDROcodone/APAP 7.5-325MG [[place] 1 tab PO Q8H PRN 02/06/22 02/06/22 History 7.5-325] Magnesium Hydroxide [Milk of 2,400 mg PO Q72H PRN 02/06/22 02/06/22 History Magnesia] Melatonin 5 mg PO HS@2000 02/06/22 02/06/22 History Na Phos,M-B/Na Phos,Di-Ba [Fleet 133 ml RECTAL DAILY PRN 02/06/22 02/06/22 History Adult] Sodium Bicarbonate 650 mg PO BID 02/06/22 02/06/22 History bisacodyL [Dulcolax] 10 mg RECTAL DAILY PRN 02/06/22 02/06/22 History glipiZIDE XL [Glucotrol XL] 2.5 mg PO DAILY@0700 02/06/22 02/06/22 History polyethylene glycoL 3350 [Miralax] 17 gm PO DAILY 02/06/22 02/06/22 History Allergies Allergy/AdvReac Type Severity Reaction Status Date / Time aspirin Allergy Rash/Hives Verified 02/06/22 10:50 sertraline HCl [From Zoloft] Allergy Unknown Verified 02/06/22 10:50 zolpidem tartrate Allergy Unknown Verified 02/06/22 10:50 [From Ambien] gabapentin [From Neurontin] AdvReac Severe SEVERE Verified 02/06/22 10:50 AGITATION ibuprofen [From Motrin] AdvReac AVOIDS D/T Verified 02/06/22 10:50 KIDNEY FUNCTION Results - Labs Labs: Abnormal Lab Results - Last 24 Hours (Table) 02/08/22 02/08/22 02/09/22 Range/Units 11:28 19:26 04:44 RBC 2.58 L (4.10-5.20) X 10*6/uL Hgb 7.0 L (12.0-15.0) g/dL Hct 22.6 L (37.2-46.3) % MCHC 31.0 L (32.0-37.0) g/dL RDW 15.5 H (11.5-14.5) % Absolute Nucleated RBC 0.02 H (0.00-0.00) X 10*3/uL Immature Gran # 0.14 H (0.00-0.04) X 10*3/uL NRBC/100 WBC Diff 0.2 H (0.0-0.0) /100 WBCS BUN (9.0-27.0) mg/dL Creatinine (0.6-1.5) mg/dL Est GFR (CKD-EPI)AfAm (60.0-200.0) Est GFR (CKD-EPI)NonAf (60.0-200.0) BUN/Creatinine Ratio (12.00-20.00) Ratio Glucose (70-110) mg/dL POC Glucose (mg/dL) 210 H (70-110) mg/dL Calcium (8.7-10.3) mg/dL Total Bilirubin (0.30-1.20) mg/dL Total Protein (6.2-8.2) g/dL Albumin (3.8-4.9) g/dL Albumin/Globulin Ratio (1.60-3.17) g/dL Procalcitonin 1.02 H (0.02-0.09) ng/mL 02/09/22 02/09/22 02/09/22 Range/Units 04:44 06:11 12:06 RBC (4.10-5.20) X 10*6/uL Hgb (12.0-15.0) g/dL Hct (37.2-46.3) % MCHC (32.0-37.0) g/dL RDW (11.5-14.5) % Absolute Nucleated RBC (0.00-0.00) X 10*3/uL Immature Gran # (0.00-0.04) X 10*3/uL NRBC/100 WBC Diff (0.0-0.0) /100 WBCS BUN 37.9 H (9.0-27.0) mg/dL Creatinine 3.5 H (0.6-1.5) mg/dL Est GFR (CKD-EPI)AfAm 18.5 L (60.0-200.0) Est GFR (CKD-EPI)NonAf 15.9 L (60.0-200.0) BUN/Creatinine Ratio 10.83 L (12.00-20.00) Ratio Glucose 138 H (70-110) mg/dL POC Glucose (mg/dL) 133 H 157 H (70-110) mg/dL Calcium 8.1 L (8.7-10.3) mg/dL Total Bilirubin <0.15 L (0.30-1.20) mg/dL Total Protein 5.6 L (6.2-8.2) g/dL Albumin 2.5 L (3.8-4.9) g/dL Albumin/Globulin Ratio 0.81 L (1.60-3.17) g/dL Procalcitonin (0.02-0.09) ng/mL 02/09/22 Range/Units 17:06 RBC (4.10-5.20) X 10*6/uL Hgb (12.0-15.0) g/dL Hct (37.2-46.3) % MCHC (32.0-37.0) g/dL RDW (11.5-14.5) % Absolute Nucleated RBC (0.00-0.00) X 10*3/uL Immature Gran # (0.00-0.04) X 10*3/uL NRBC/100 WBC Diff (0.0-0.0) /100 WBCS BUN (9.0-27.0) mg/dL Creatinine (0.6-1.5) mg/dL Est GFR (CKD-EPI)AfAm (60.0-200.0) Est GFR (CKD-EPI)NonAf (60.0-200.0) BUN/Creatinine Ratio (12.00-20.00) Ratio Glucose (70-110) mg/dL POC Glucose (mg/dL) 250 H (70-110) mg/dL Calcium (8.7-10.3) mg/dL Total Bilirubin (0.30-1.20) mg/dL Total Protein (6.2-8.2) g/dL Albumin (3.8-4.9) g/dL Albumin/Globulin Ratio (1.60-3.17) g/dL Procalcitonin (0.02-0.09) ng/mL Microbiology - Last 24 Hours (Table) 02/06/22 13:00 Blood Culture - Preliminary Blood No Growth after 72 hours 02/06/22 11:51 Urine Culture - Final Urine,Catheterized Escherichia coli H & H 02/06/22 02/07/22 02/07/22 Range/Units 09:52 06:16 20:14 Hgb 7.9 L 6.8 L* 8.3 L (11.4-16.0) gm/dL Hct 26.0 L 23.1 L 27.0 L (34.0-46.0) % 02/08/22 02/09/22 Range/Units 08:02 04:44 Hgb 8.1 L 7.0 L (11.4-16.0) gm/dL Hct 26.3 L 22.6 L (34.0-46.0) % Coagulation 02/06/22 Range/Units 09:52 INR 1.0 (<1.2) Result Diagrams: 02/09/22 04:44 02/10/22 06:02
[2022-02-10 07:53] LABS: Glucose,Whole Blood 180 mg/dL (70-110)
[2022-02-10] MEDS: INSULIN ASPART (NovoLOG) 100 UNIT/ML VIAL SQ SCH ×4 (08:38→20:59)
[2022-02-10] MEDS: APIXABAN 5 MG TAB PO SCH (08:38)
[2022-02-10] MEDS: SODIUM BICARBONATE TAB 650 MG TAB PO SCH ×2 (08:38→20:59)
[2022-02-10] MEDS: carvediloL 6.25 MG TAB PO SCH ×2 (08:38→16:57)
--- NOTE | 2022-02-10 08:57 | P.PN ---
Subjective Progress Note Date: 02/10/22 Principal diagnosis: Change in mental status The patient is an unfortunate 36-year-old female patient with a past medical history significant for history of stroke with residual weakness as well as history of DVT as well as diabetes and hypertension and dyslipidemia as well as multiple comorbid conditions was admitted to the hospital with change in mental status and she was diagnosed was possibly pneumonia. We consulted to see the patient mainly because of elevated NT proBNP. We felt that the patient was not in failure. We performed an echocardiogram and that showed preserved the front of the systolic function was no significant valvular abnormalities. February 102021 The patient was seen this morning. She remains asymptomatic in terms of chest pain. She remains he was medically stable besides sinus tachycardia which she has been experiencing pain in both legs. I am going to monitor the heart rate for additional 24 hours and consider increasing the dose of carvedilol if she remains tachycardic. Objective - Vital Signs Vital signs: Vital Signs Temp 97.9 F 02/10/22 07:11 Pulse 125 H 02/10/22 07:11 Resp 16 02/10/22 07:11 BP 112/70 02/10/22 07:11 Pulse Ox 94 L 02/10/22 07:11 FiO2 Intake & Output 02/09/22 02/10/22 02/10/22 18:59 06:59 18:59 Intake Total 288 500 Output Total 500 300 Balance -212 200 Intake: Oral 288 500 Output: Urine 500 300 Other: Voiding Method External Catheter External Catheter - Constitutional General appearance: Present: no acute distress - Respiratory Respiratory: bilateral: CTA - Cardiovascular Rhythm: regular - Labs CBC & Chem 7: 02/09/22 04:44 02/10/22 06:02 Labs: Abnormal Lab Results - Last 24 Hours (Table) 02/09/22 02/09/22 02/09/22 Range/Units 12:06 17:06 20:04 Chloride (98-107) mmol/L BUN (7-17) mg/dL Creatinine (0.52-1.04) mg/dL Glucose (74-99) mg/dL POC Glucose (mg/dL) 157 H 250 H 249 H (70-110) mg/dL Calcium (8.4-10.2) mg/dL 02/10/22 02/10/22 Range/Units 06:02 07:33 Chloride 110 H (98-107) mmol/L BUN 40 H (7-17) mg/dL Creatinine 3.21 H (0.52-1.04) mg/dL Glucose 156 H (74-99) mg/dL POC Glucose (mg/dL) 180 H (70-110) mg/dL Calcium 7.9 L (8.4-10.2) mg/dL Microbiology - Last 24 Hours (Table) 02/06/22 13:00 Blood Culture - Preliminary Blood No Growth after 72 hours Assessment and Plan Assessment: Assessment Change in mental status History of stroke Multiple comorbid conditions Chronic pain Elevated NT proBNP Plan Continue the current medical regimen Consider increasing the dose of carvedilol if she remains tachycardic
--- NOTE | 2022-02-10 09:39 | XR ---
EXAMINATION TYPE: XR chest 1V portable DATE OF EXAM: 02/10/2022 9:27 AM COMPARISON: Chest radiographs from 01/30/2022 TECHNIQUE: XR chest 1V portable Frontal view of the chest. CLINICAL INDICATION:Female, 36 years old with history of hypoxia; FINDINGS: Lungs/Pleura: Diffuse hazy appearance of lung are mildly improved from prior. There is no evidence of pleural effusion, focal consolidation, or pneumothorax. Pulmonary vascularity: Unremarkable. Heart/mediastinum: Cardiomediastinal silhouette is enlarged and stable. Musculoskeletal: No acute osseous pathology. IMPRESSION: Similar airspace opacities. Findings suggestive of pulmonary edema versus diffuse atypical pneumonia disease.
[2022-02-10 10:03] LABS: Basophils # (A) 0.03 X 10*3/uL (0.00-0.10); Basophils % (A) 0.3 %; Eosinophils # (A) 0.26 X 10*3/uL (0.04-0.35); Eosinophils % (A) 2.6 %; HGB 6.9 g/dL (12.0-15.0); Immature Grans, Automated 1.6 %; Lymphocytes # (A) 0.95 X 10*3/uL (0.90-5.00); Lymphocytes % (A) 9.4 %; MCH 26.6 pg (27.0-32.0); MCV 88.8 fL (80.0-97.0); Mean Platelet Volume 9.3 fL (9.5-12.2); Monocytes # (A) 0.74 X 10*3/uL (0.20-1.00); Monocytes % (A) 7.3 %; NRBC Per 100 WBC 0.2 /100 WBCS (0.0-0.0); Neutrophils # (A) 8.01 X 10*3/uL (1.80-7.70); Neutrophils % (A) 78.8 %; Platelet Count 291 X 10*3/uL (140-440); RBC 2.59 X 10*6/uL (4.10-5.20); RDW 15.8 % (11.5-14.5); WBC 10.15 X 10*3/uL (4.50-10.00)
--- NOTE | 2022-02-10 10:44 | P.PN ---
Subjective Progress Note Date: 02/10/22 Principal diagnosis: Fall from standing Bilateral lower extremity weakness Hairline fracture of the left distal femur Patient seen and examined this morning. Patient is resting in bed. Immobilizer is present to the left lower extremity. Patient denies any numbness tingling to bilateral lower extremities. She states her pain is managed on current regimen. Patient is to continue with physical therapy, nonweightbearing on left lower extremity. She denies any fevers/chills, nausea/vomiting, or chest pain. Objective - Vital Signs Vital signs: Vital Signs Temp 99.4 F 02/10/22 02:00 Pulse 127 H 02/10/22 02:00 Resp 16 02/10/22 02:00 BP 134/81 02/10/22 02:00 Pulse Ox 94 L 02/10/22 02:00 FiO2 Intake & Output 02/09/22 02/10/22 02/10/22 18:59 06:59 18:59 Intake Total 288 500 Output Total 500 300 Balance -212 200 Intake: Oral 288 500 Output: Urine 500 300 Other: Voiding Method External Catheter External Catheter - Exam Physical Examination General: The patient is awake and alert, in no acute distress Skin: Skin is warm and dry with no obvious rashes or lesions. Slight bruising to right knee. Eye: Pupils are equal, round and reactive to light, extra-ocular movements are intact; there is normal conjunctiva bilaterally. Neck: The neck is supple, there is no tenderness and ROM intact. Cardiovascular: There is a regular rate and rhythm. No murmur, rub or gallop is appreciated. Respiratory: Lungs are clear to auscultation, respirations are non-labored, breath sounds are equal. Gastrointestinal: Soft, non-distended, non-tender abdomen. Back: There is no tenderness to palpation in the midline, paralumbar, parathoracic or buttocks region. There is no obvious deformity . Musculoskeletal: ROM limited secondary to pain and stiffness from surgical procedure. Muscle strength in all major muscle groups of bilateral upper extremi ties 5/5, bilateral lower extremities 4/5. Neurological: CN 2-12 intact. There are no obvious motor or sensory deficits. Movement and coordination equal and intact. Sensory exam to light touch intact C5-T1 and intact from L2-S1. Reflexes 2/4 in bilateral upper and lower extremities. Negative Hoffmans, babinski, and clonus signs. Psychiatric: Cooperative, appropriate mood & affect, normal judgment. - Labs CBC & Chem 7: 02/10/22 06:02 02/10/22 06:02 Labs: Abnormal Lab Results - Last 24 Hours (Table) 02/09/22 02/09/22 02/09/22 Range/Units 04:44 04:44 12:06 RBC 2.58 L (4.10-5.20) X 10*6/uL Hgb 7.0 L (12.0-15.0) g/dL Hct 22.6 L (37.2-46.3) % MCHC 31.0 L (32.0-37.0) g/dL RDW 15.5 H (11.5-14.5) % Absolute Nucleated RBC 0.02 H (0.00-0.00) X 10*3/uL Immature Gran # 0.14 H (0.00-0.04) X 10*3/uL NRBC/100 WBC Diff 0.2 H (0.0-0.0) /100 WBCS Chloride (98-107) mmol/L BUN 37.9 H (9.0-27.0) mg/dL Creatinine 3.5 H (0.6-1.5) mg/dL Est GFR (CKD-EPI)AfAm 18.5 L (60.0-200.0) Est GFR (CKD-EPI)NonAf 15.9 L (60.0-200.0) BUN/Creatinine Ratio 10.83 L (12.00-20.00) Ratio Glucose 138 H (70-110) mg/dL POC Glucose (mg/dL) 157 H (70-110) mg/dL Calcium 8.1 L (8.7-10.3) mg/dL Total Bilirubin <0.15 L (0.30-1.20) mg/dL Total Protein 5.6 L (6.2-8.2) g/dL Albumin 2.5 L (3.8-4.9) g/dL Albumin/Globulin Ratio 0.81 L (1.60-3.17) g/dL 02/09/22 02/09/22 02/10/22 Range/Units 17:06 20:04 06:02 RBC (4.10-5.20) X 10*6/uL Hgb (12.0-15.0) g/dL Hct (37.2-46.3) % MCHC (32.0-37.0) g/dL RDW (11.5-14.5) % Absolute Nucleated RBC (0.00-0.00) X 10*3/uL Immature Gran # (0.00-0.04) X 10*3/uL NRBC/100 WBC Diff (0.0-0.0) /100 WBCS Chloride 110 H (98-107) mmol/L BUN 40 H (9.0-27.0) mg/dL Creatinine 3.21 H (0.6-1.5) mg/dL Est GFR (CKD-EPI)AfAm (60.0-200.0) Est GFR (CKD-EPI)NonAf (60.0-200.0) BUN/Creatinine Ratio (12.00-20.00) Ratio Glucose 156 H (70-110) mg/dL POC Glucose (mg/dL) 250 H 249 H (70-110) mg/dL Calcium 7.9 L (8.7-10.3) mg/dL Total Bilirubin (0.30-1.20) mg/dL Total Protein (6.2-8.2) g/dL Albumin (3.8-4.9) g/dL Albumin/Globulin Ratio (1.60-3.17) g/dL Microbiology - Last 24 Hours (Table) 02/06/22 13:00 Blood Culture - Preliminary Blood No Growth after 72 hours Assessment and Plan Assessment: 1. Nondisplaced hairline fracture of the left distal femur involving the intercondylar distal femur 2. Bilateral knee pain 3. Bilateral lower extremity weakness Plan: -No surgical intervention at this time -Continue with knee immobilizer to LLE -PT/OT- NWB on the LLE -Pain management -Ice and Elevate I reviewed and discussed this case with my attending Dr. Trevino, whom has r eviewed this chart and films and is in agreement with assessment and plan of care as outlined above. I have personally seen and examined the patient, performed the documentation and the assessment and plan as written. Number of minutes spent on the visit: 20m.
[2022-02-10 11:26] LABS: Glucose,Whole Blood 114 mg/dL (70-110)
--- NOTE | 2022-02-10 11:46 | P.PN ---
Subjective Progress Note Date: 02/10/22 Principal diagnosis: Shortness of breath. 36-year-old female initially seen in the emergency department on February 06, for following, and mental status changes. The patient has a previous history of CVA, right-sided deficits, cognitive delay, gastric bypass, and DVT. The eric ent resides at a local [facility], and she has been there since 2017. She apparently fell, and had an x-ray and computed tomography scan done, of her right knee, which showed a nondisplaced hairline fracture of the distal femur involving the intercondylar distal femur. She was placed in a knee immobilizer, given Toradol and morphine. She was then transferred back to the facility. She apparently was found to be poorly responsive by the nurse at the facility, and for that reason was transported back. We are asked to see her, because apparently she developed shortness of breath, and required oxygen therapy, and a higher rate than she normally getting. She's usually getting 2 L at the [facility], and currently she is on 6 L high flow oxygen, with excellent saturations. The patient is on saline at 75 mL an hour. She is seen today in room 628. White count 9, hemoglobin 8.1, hematocrit 26.3, and platelet count normal. D- dimer was 3.37. Sodium 137, potassium 4.2, chlorides 111, CO2 19, BUN 36, and creatinine 3.19. Interestingly, her N-terminal proBNP is 4190. Testing for an infection such as influenza, respiratory syncytial virus, and coronavirus, all negative. Arterial blood gases, at the day of admission, show pO2 of 104, pCO2 of 53 and pH of 7.3. In addition, she has gram-negative bacilli in her urine, and is currently on ertapenem. Initial chest x-ray on the , shows cardiomegaly, and low lung volumes, without an acute process. Follow-up chest x-ray shows diffuse bilateral infiltrates, which could be consistent with pneumonia or fluid overload. I'm reevaluating this patient today on 02/09/2022 on a general medical floor. She is currently sitting up in bed, on 4 L nasal cannula, in no acute distress. Patient is telling me that she is less short of breath this morning. Denies any cough, fever, orthopnea, chest pain. Vital signs remain stable, however, patient is slightly tachycardic this morning it 115 bpm. Heart rhythm is regular. Urine sample was positive for ESBL on 02/06/2022. She is covered with ertapenem, and infectious disease is following. Procalcitonin yesterday was elevated at 1.02. CBC from today is stable showing some anemia with a hemoglobin of 7, hematocrit 22.6, WBC count 8.6, platelets 296,000. She did receive a unit of PRBCs on 02/07/2022, and there are no overt signs of bleeding. Chest x-ray from yesterday 02/08/2022 shows worsening diffuse bilateral lung infiltrates. Her BNP from yesterday was 4190. Fluid balance over the last 24 hours is -900 ml. Progress note dated 02/10/2022. The patient is seen today in room 527. The patient appears very stable, from the respiratory standpoint. She's on 4 L of oxygen. She's getting saline at 75 mL an hour. We did order a chest x-ray for the morning. White count 10.2, hemoglobin 6.9, hematocrit 23, and platelet count 291,000. Sodium 139, potassium 4.4, chlorides 110, CO2 24, BUN 40, and creatinine 3.21. Urine was positive for ESBL Escherichia coli. Objective - Vital Signs Vital signs: Vital Signs Temp 97.9 F 02/10/22 07:11 Pulse 125 H 02/10/22 07:11 Resp 16 02/10/22 07:11 BP 112/70 02/10/22 07:11 Pulse Ox 94 L 02/10/22 07:11 FiO2 Intake & Output 02/09/22 02/10/22 02/10/22 18:59 06:59 18:59 Intake Total 288 500 Output Total 500 300 Balance -212 200 Intake: Oral 288 500 Output: Urine 500 300 Other: Voiding Method External Catheter External Catheter External Catheter - Exam No acute distress, oriented 3. No respiratory distress. No audible wheezing or use of accessory muscles. HEENT examination is grossly unremarkable. Neck supple. Full range of motion. No adenopathy thyromegaly or neck vein distention. Cardiovascular examination reveals regular rhythm rate. S1-S2 normal. No S3 or S4. No discernible murmur noted. Heart rate 90 bpm. Lungs reveal mostly clear breath sounds. Scattered rhonchi are noted. A few scattered crackles are appreciated. Breath sounds are equal bilaterally. 4 L saturation is 94%. Abdomen soft bowel sounds are heard. No masses or tenderness. Extremities are intact. No cyanosis clubbing or edema. Skin is without rash or lesion. Neurologic examination is brief but nonfocal. - Labs CBC & Chem 7: 02/10/22 06:02 02/10/22 06:02 Labs: Abnormal Lab Results - Last 24 Hours (Table) 02/09/22 02/09/22 02/09/22 Range/Units 12:06 17:06 20:04 WBC (4.50-10.00) X 10*3/uL RBC (4.10-5.20) X 10*6/uL Hgb (12.0-15.0) g/dL Hct (37.2-46.3) % MCH (27.0-32.0) pg MCHC (32.0-37.0) g/dL RDW (11.5-14.5) % MPV (9.5-12.2) fL Absolute Nucleated RBC (0.00-0.00) X 10*3/uL Immature Gran # (0.00-0.04) X 10*3/uL Neutrophils # (1.80-7.70) X 10*3/uL NRBC/100 WBC Diff (0.0-0.0) /100 WBCS Chloride (98-107) mmol/L BUN (7-17) mg/dL Creatinine (0.52-1.04) mg/dL Glucose (74-99) mg/dL POC Glucose (mg/dL) 157 H 250 H 249 H (70-110) mg/dL Calcium (8.4-10.2) mg/dL 02/10/22 02/10/22 02/10/22 Range/Units 06:02 06:02 07:33 WBC 10.15 H (4.50-10.00) X 10*3/uL RBC 2.59 L (4.10-5.20) X 10*6/uL Hgb 6.9 L* (12.0-15.0) g/dL Hct 23.0 L (37.2-46.3) % MCH 26.6 L (27.0-32.0) pg MCHC 30.0 L (32.0-37.0) g/dL RDW 15.8 H (11.5-14.5) % MPV 9.3 L (9.5-12.2) fL Absolute Nucleated RBC 0.02 H (0.00-0.00) X 10*3/uL Immature Gran # 0.16 H (0.00-0.04) X 10*3/uL Neutrophils # 8.01 H (1.80-7.70) X 10*3/uL NRBC/100 WBC Diff 0.2 H (0.0-0.0) /100 WBCS Chloride 110 H (98-107) mmol/L BUN 40 H (7-17) mg/dL Creatinine 3.21 H (0.52-1.04) mg/dL Glucose 156 H (74-99) mg/dL POC Glucose (mg/dL) 180 H (70-110) mg/dL Calcium 7.9 L (8.4-10.2) mg/dL 02/10/22 Range/Units 11:23 WBC (4.50-10.00) X 10*3/uL RBC (4.10-5.20) X 10*6/uL Hgb (12.0-15.0) g/dL Hct (37.2-46.3) % MCH (27.0-32.0) pg MCHC (32.0-37.0) g/dL RDW (11.5-14.5) % MPV (9.5-12.2) fL Absolute Nucleated RBC (0.00-0.00) X 10*3/uL Immature Gran # (0.00-0.04) X 10*3/uL Neutrophils # (1.80-7.70) X 10*3/uL NRBC/100 WBC Diff (0.0-0.0) /100 WBCS Chloride (98-107) mmol/L BUN (7-17) mg/dL Creatinine (0.52-1.04) mg/dL Glucose (74-99) mg/dL POC Glucose (mg/dL) 114 H (70-110) mg/dL Calcium (8.4-10.2) mg/dL Microbiology - Last 24 Hours (Table) 02/06/22 13:00 Blood Culture - Preliminary Blood No Growth after 72 hours Assessment and Plan Assessment: Acute hypoxemic respiratory failure, likely on the basis of either pneumonia, and/or CHF. Alveolar hypoventilation, likely secondary to narcotics. History of CVA. History of deep vein thromboses. Prior history of myocardial infarction. S/P gastric bypass, 2016. History of pancreatitis. Prior history of urinary tract infections with extended spectrum beta-lactamase producing Escherichia coli. History of anxiety/depression. History of hypothyroidism. History of diabetes mellitus. Multiple other medical problems and comorbidities. Plan: Plan dated 02/08/2022. The patient continues on ertapenem for a gram-negative bacilli in her urine. She does have a prior history of multiple drug resistant organisms, including extended spectrum beta-lactamase producing E. coli. The patient's getting saline at 75 mL an hour, and oxygen at 6 L, with high flow nasal cannula. Labs, x-rays, and medications are all reviewed. The N-terminal proBNP that we ordered today was elevated at 4190. The pro-calcitonin level is pending. We will continue to follow make recommendations along the way. The patient appears to be relatively stable at this time. Plan dated 02/10/2022. We have ordered a chest x-ray for the morning. The patient's respiratory status seems to be stable. She did have evidence of Escherichia coli in the urine, and for that she is on ertapenem. We will continue to follow make recommendations where appropriate. Labs, x-rays, and medications are reviewed. Prognosis is guarded. Time with Patient: Less than 30
--- NOTE | 2022-02-10 11:53 | P.PN ---
Subjective Progress Note Date: 02/10/22 Principal diagnosis: fall and sob Patient is still having severe pain in the left lower extremity. She declined doing x-rays of the left and right lower extremities to rule out other fractures. Her rationale was that she was in severe pain and is scared to do any movements to the lower extremities. Breathing is still the same. She is down to 4 L currently. No fevers or chills. No nausea or vomiting. Objective - Vital Signs Vital signs: Vital Signs Temp 97.9 F 02/10/22 07:11 Pulse 125 H 02/10/22 07:11 Resp 16 02/10/22 07:11 BP 112/70 02/10/22 07:11 Pulse Ox 94 L 02/10/22 07:11 FiO2 Intake & Output 02/09/22 02/10/22 02/10/22 18:59 06:59 18:59 Intake Total 288 500 Output Total 500 300 Balance -212 200 Intake: Oral 288 500 Output: Urine 500 300 Other: Voiding Method External Catheter External Catheter External Catheter - Exam Constitutional: No acute distress, conversant, pleasant Eyes:Anicteric sclerae, moist conjunctiva, no lid-lag, PERRLA, ENMT: Oropharynx clear, no erythema, exudates Neck: Supple, FROM, no masses, or JVD, No carotid bruits, No thyromegaly Lungs: Clear to auscultation, Clear to percussion, Normal respiratory effort, no accessory muscle use Cardiovascular: Heart regular in rate and rhythm, No murmurs, gallops, or rubs, No peripheral edema Abdominal: Soft, Nontender, no guarding, rebound or rigidity, Normoactive bowel sounds, No hepatomegaly, No splenomegaly, No palpable mass Skin: Normal temperature, tone, texture, turgor, no induration, No subcutaneous nodules, No rash, lesions, No ulcers Extremities: Severe pain with range of motion of the lower extremities. No digital cyanosis, No clubbing, Pedal pulses intact and symmetrical, Radial pulses intact and symmetrical, No calf tenderness Psychiatric: Alert and oriented to person, place and time, appropriate affect, intact judgement Neuro: Gen. weakness - Labs CBC & Chem 7: 02/10/22 06:02 02/10/22 06:02 Labs: Abnormal Lab Results - Last 24 Hours (Table) 02/07/22 02/09/22 02/09/22 Range/Units 12:38 12:06 17:06 WBC (4.50-10.00) X 10*3/uL RBC (4.10-5.20) X 10*6/uL Hgb (12.0-15.0) g/dL Hct (37.2-46.3) % MCH (27.0-32.0) pg MCHC (32.0-37.0) g/dL RDW (11.5-14.5) % MPV (9.5-12.2) fL Absolute Nucleated RBC (0.00-0.00) X 10*3/uL Immature Gran # (0.00-0.04) X 10*3/uL Neutrophils # (1.80-7.70) X 10*3/uL NRBC/100 WBC Diff (0.0-0.0) /100 WBCS Chloride (98-107) mmol/L BUN (7-17) mg/dL Creatinine (0.52-1.04) mg/dL Glucose (74-99) mg/dL POC Glucose (mg/dL) 157 H 250 H (70-110) mg/dL Calcium (8.4-10.2) mg/dL Crossmatch See Detail 02/09/22 02/10/22 02/10/22 Range/Units 20:04 06:02 06:02 WBC 10.15 H (4.50-10.00) X 10*3/uL RBC 2.59 L (4.10-5.20) X 10*6/uL Hgb 6.9 L* (12.0-15.0) g/dL Hct 23.0 L (37.2-46.3) % MCH 26.6 L (27.0-32.0) pg MCHC 30.0 L (32.0-37.0) g/dL RDW 15.8 H (11.5-14.5) % MPV 9.3 L (9.5-12.2) fL Absolute Nucleated RBC 0.02 H (0.00-0.00) X 10*3/uL Immature Gran # 0.16 H (0.00-0.04) X 10*3/uL Neutrophils # 8.01 H (1.80-7.70) X 10*3/uL NRBC/100 WBC Diff 0.2 H (0.0-0.0) /100 WBCS Chloride 110 H (98-107) mmol/L BUN 40 H (7-17) mg/dL Creatinine 3.21 H (0.52-1.04) mg/dL Glucose 156 H (74-99) mg/dL POC Glucose (mg/dL) 249 H (70-110) mg/dL Calcium 7.9 L (8.4-10.2) mg/dL Crossmatch 02/10/22 02/10/22 Range/Units 07:33 11:23 WBC (4.50-10.00) X 10*3/uL RBC (4.10-5.20) X 10*6/uL Hgb (12.0-15.0) g/dL Hct (37.2-46.3) % MCH (27.0-32.0) pg MCHC (32.0-37.0) g/dL RDW (11.5-14.5) % MPV (9.5-12.2) fL Absolute Nucleated RBC (0.00-0.00) X 10*3/uL Immature Gran # (0.00-0.04) X 10*3/uL Neutrophils # (1.80-7.70) X 10*3/uL NRBC/100 WBC Diff (0.0-0.0) /100 WBCS Chloride (98-107) mmol/L BUN (7-17) mg/dL Creatinine (0.52-1.04) mg/dL Glucose (74-99) mg/dL POC Glucose (mg/dL) 180 H 114 H (70-110) mg/dL Calcium (8.4-10.2) mg/dL Crossmatch Microbiology - Last 24 Hours (Table) 02/06/22 13:00 Blood Culture - Preliminary Blood No Growth after 72 hours Assessment and Plan Plan: Unresponsiveness likely metabolic and toxic encephalopathy versus hypoxia Continue to monitor Improved, mental status back to baseline Patient received multiple dose of baclofen and morphine 4 mg x 1. Acute urinary tract infection with prior history of ESBL Continue ertapenem Urine cultures growing E. coli ESBL Acute hypoxemic respiratory failure, likely on the basis of either pneumonia, and/or CHF. Alveolar hypoventilation, likely secondary to narcotics. Patient was seen by pulmonary service, pulmonary embolism unlikely because she was on anti-coagulation Continue O2 Discontinue IV fluids as BNP is high Pro calcitonin elevated, she is covered with ertapenem Acute on chronic anemia Hold eliquis She is status post 1 unit packed cells on 02/07, will transfuse another unit on 02/10 Hemoglobin continues to decline, CT of the left lower extremity to r/u internal bleeding ordered but she declined it. Nondisplaced hairline fracture of the distal femur involving the intracondylar distal femur. Status post fall from her bed and landed on her knees. Status post knee immobilizer. Ortho following X rays of bilateral lower extremities to r/u other fractures ordered but she declined. Morbid obesity History of CVA with right-sided weakness Gastric bypass surgery in 2016 Anxiety/depression and panic disorder History of DVT on anticoagulation with Eliquis Normocytic anemia/anemia of chronic disease with hemoglobin 7.9 Acute on CKD stage IV with baseline creatinine around 3.0 DVT prophylaxis patient is already on Eliquis All stable Resume meds Patient continues to be severely apprehensive in regards to ambulation of the lower extremities, she was encouraged to accept some level of pain. She is currently on narcotics for pain control.
--- NOTE | 2022-02-10 13:44 | P.PN ---
Subjective Progress Note Date: 02/10/22 Principal diagnosis: Urinary tract infection Patient is a 36-year-old female with a past medical history significant for cognitive impairment CVA with right-sided weakness and a history of gastric bypass surgery patient was sent to the ER from the [facility] for evaluation of mental status changes, patient did have a positive UA concerning for possible symptomatic urinary tract infection with a previous history of ESBL E. coli. On today's evaluation her that is 02/10/2022, the patient denies any fever or chills, patient is breathing comfortably on nasal oxygen denies any chest pain shortness without cough no abdominal pain pain to the left leg is currently controlled Objective - Vital Signs Vital signs: Vital Signs Temp 98.4 F 02/10/22 12:20 Pulse 71 02/10/22 12:20 Resp 16 02/10/22 12:20 BP 120/77 02/10/22 12:20 Pulse Ox 95 02/10/22 12:20 FiO2 Intake & Output 02/09/22 02/10/22 02/10/22 18:59 06:59 18:59 Intake Total 288 500 Output Total 500 300 Balance -212 200 Intake: Oral 288 500 Output: Urine 500 300 Other: Voiding Method External Catheter External Catheter External Catheter - Exam GENERAL DESCRIPTION: A middle-age female lying in bed in no distress RESPIRATORY SYSTEM: Unlabored breathing , decreased breath sounds at bases HEART: S1 S2 regular rate and rhythm , ABDOMEN: Soft , no tenderness EXTREMITIES: No edema feet - Labs CBC & Chem 7: 02/10/22 06:02 02/10/22 06:02 Labs: Abnormal Lab Results - Last 24 Hours (Table) 02/07/22 02/09/22 02/09/22 Range/Units 12:38 17:06 20:04 WBC (4.50-10.00) X 10*3/uL RBC (4.10-5.20) X 10*6/uL Hgb (12.0-15.0) g/dL Hct (37.2-46.3) % MCH (27.0-32.0) pg MCHC (32.0-37.0) g/dL RDW (11.5-14.5) % MPV (9.5-12.2) fL Absolute Nucleated RBC (0.00-0.00) X 10*3/uL Immature Gran # (0.00-0.04) X 10*3/uL Neutrophils # (1.80-7.70) X 10*3/uL NRBC/100 WBC Diff (0.0-0.0) /100 WBCS Chloride (98-107) mmol/L BUN (7-17) mg/dL Creatinine (0.52-1.04) mg/dL Glucose (74-99) mg/dL POC Glucose (mg/dL) 250 H 249 H (70-110) mg/dL Calcium (8.4-10.2) mg/dL Crossmatch See Detail 02/10/22 02/10/22 02/10/22 Range/Units 06:02 06:02 07:33 WBC 10.15 H (4.50-10.00) X 10*3/uL RBC 2.59 L (4.10-5.20) X 10*6/uL Hgb 6.9 L* (12.0-15.0) g/dL Hct 23.0 L (37.2-46.3) % MCH 26.6 L (27.0-32.0) pg MCHC 30.0 L (32.0-37.0) g/dL RDW 15.8 H (11.5-14.5) % MPV 9.3 L (9.5-12.2) fL Absolute Nucleated RBC 0.02 H (0.00-0.00) X 10*3/uL Immature Gran # 0.16 H (0.00-0.04) X 10*3/uL Neutrophils # 8.01 H (1.80-7.70) X 10*3/uL NRBC/100 WBC Diff 0.2 H (0.0-0.0) /100 WBCS Chloride 110 H (98-107) mmol/L BUN 40 H (7-17) mg/dL Creatinine 3.21 H (0.52-1.04) mg/dL Glucose 156 H (74-99) mg/dL POC Glucose (mg/dL) 180 H (70-110) mg/dL Calcium 7.9 L (8.4-10.2) mg/dL Crossmatch 02/10/22 Range/Units 11:23 WBC (4.50-10.00) X 10*3/uL RBC (4.10-5.20) X 10*6/uL Hgb (12.0-15.0) g/dL Hct (37.2-46.3) % MCH (27.0-32.0) pg MCHC (32.0-37.0) g/dL RDW (11.5-14.5) % MPV (9.5-12.2) fL Absolute Nucleated RBC (0.00-0.00) X 10*3/uL Immature Gran # (0.00-0.04) X 10*3/uL Neutrophils # (1.80-7.70) X 10*3/uL NRBC/100 WBC Diff (0.0-0.0) /100 WBCS Chloride (98-107) mmol/L BUN (7-17) mg/dL Creatinine (0.52-1.04) mg/dL Glucose (74-99) mg/dL POC Glucose (mg/dL) 114 H (70-110) mg/dL Calcium (8.4-10.2) mg/dL Crossmatch Microbiology - Last 24 Hours (Table) 02/06/22 13:00 Blood Culture - Preliminary Blood No Growth after 72 hours Assessment and Plan (1) UTI (urinary tract infection) Current Visit: No Status: Acute Code(s): N39.0 - URINARY TRACT INFECTION, SITE NOT SPECIFIED SNOMED Code(s): 24031404 Plan: 1patient is in the hospital with mental status changes weakness and a fall which is likely multifactorial in this patient who did have a positive UA some urinary symptoms concerning for symptomatic UTI likely from enteric gram- negative pathogen however the patient do have a history of ESBL E. coli infection and will need to cover for ESBL until the cultures are finalized. 2patient did have elevated BUN and creatinine ultrasound didn't show any obstructive uropathy. 3patient urine has been finalized with ESBL E. coli patient currently being treated with Invanz 500 mg daily the dose adjusted to the kidney function and continue supportive care Time with Patient: Less than 30
[2022-02-10] MEDS ORDERED: FUROSEMIDE 10 MG/ML 2 ML VIAL IV ONE (15:10)
[2022-02-10] MEDS: ERTAPENEM 0.5 GM in SODIUM CHLORIDE 0.9% 50 ML IVPB SCH (16:57)
[2022-02-10 17:38] LABS: Glucose,Whole Blood 212 mg/dL (70-110)
[2022-02-10 20:50] LABS: Glucose,Whole Blood 221 mg/dL (70-110)
[2022-02-10] MEDS: clonazePAM 0.5 MG TAB PO SCH (20:59)
[2022-02-10] MEDS: ATORVASTATIN 20 MG TAB PO SCH (20:59)
[2022-02-10] MEDS: INSULIN DETEMIR (LEVEMIR) 100 UNIT/ML SYR SQ SCH (20:59)
[2022-02-10] MEDS: LEVOTHYROXINE 25 MCG TAB PO SCH (21:01)
[2022-02-11] MEDS: MELATONIN 5 MG TABLET PO PRN ×2 (01:06→21:03)
[2022-02-11] MEDS: BACLOFEN 10 MG TAB PO SCH ×3 (05:02→20:55)
[2022-02-11] MEDS: HYDROcodone/APAP 7.5-325MG 1 EACH TAB PO PRN ×4 (05:02→23:03)
--- NOTE | 2022-02-11 07:57 | XR ---
EXAMINATION TYPE: XR chest 1V portable DATE OF EXAM: 02/11/2022 7:03 AM COMPARISON: Chest radiograph from one day prior. TECHNIQUE: XR chest 1V portable Portable AP radiograph of the chest. CLINICAL INDICATION:Female, 36 years old with history of Dyspnea, hypoxemia; FINDINGS: Lungs/Pleura: Improved aeration of lungs on today's exam with persistent airspace opacities scattered throughout the lungs. No evidence of pneumothorax or large pleural effusion. Pulmonary vascularity: Unremarkable. Heart/mediastinum: Cardiomediastinal silhouette is unremarkable. Musculoskeletal: No acute osseous pathology. IMPRESSION: Improved aeration of the lungs with persistent multifocal airspace opacities.
[2022-02-11 08:01] LABS: Anisocytosis Slight; Basophils % (A) 0 %; Eosinophils # (A) 0.3 k/uL (0-0.7); Eosinophils % (A) 4 %; HGB 8.2 gm/dL (11.4-16.0); Hypochromasia Marked; Lymphocytes # (A) 0.8 k/uL (1.0-4.8); Lymphocytes % (A) 10 %; MCH 27.9 pg (25.0-35.0); MCHC 31.4 g/dL (31.0-37.0); MCV 88.9 fL (80.0-100.0); Mean Platelet Volume 7.9; Monocytes # (A) 0.4 k/uL (0-1.0); Monocytes % (A) 5 %; Neutrophils # (A) 6.6 k/uL (1.3-7.7); Neutrophils % (A) 79 %; Platelet Count 337 k/uL (150-450); Poikilocytosis Moderate; RBC 2.93 m/uL (3.80-5.40); RDW 16.5 % (11.5-15.5); WBC 8.3 k/uL (3.8-10.6)
[2022-02-11 08:14] LABS: African American GFR (CKD) 21 (>60 ml/min/1.73 sqM); Anion Gap 6 mmol/L; Blood Urea Nitrogen 41 mg/dL (7-17); Calcium 7.9 mg/dL (8.4-10.2); Carbon Dioxide 24 mmol/L (22-30); Chloride 109 mmol/L (98-107); Glucose 175 mg/dL (74-99); Magnesium 1.8 mg/dL (1.6-2.3); Non-African American GFR(CKD) 18 (>60 ml/min/1.73 sqM); Potassium 4.5 mmol/L (3.5-5.1); Sodium 139 mmol/L (137-145)
[2022-02-11 08:18] LABS: Glucose,Whole Blood 184 mg/dL (70-110)
[2022-02-11] MEDS: SODIUM BICARBONATE TAB 650 MG TAB PO SCH ×2 (08:38→20:55)
[2022-02-11] MEDS: carvediloL 6.25 MG TAB PO SCH (08:38)
[2022-02-11] MEDS: INSULIN ASPART (NovoLOG) 100 UNIT/ML VIAL SQ SCH ×4 (08:38→21:03)
--- NOTE | 2022-02-11 10:37 | P.PN ---
Subjective Progress Note Date: 02/11/22 Principal diagnosis: Change in mental status The patient is an unfortunate 36-year-old female patient with a past medical history significant for history of stroke with residual weakness as well as history of DVT as well as diabetes and hypertension and dyslipidemia as well as multiple comorbid conditions was admitted to the hospital with change in mental status and she was diagnosed was possibly pneumonia. We consulted to see the patient mainly because of elevated NT proBNP. We felt that the patient was not in failure. We performed an echocardiogram and that showed preserved the front of the systolic function was no significant valvular abnormalities. February 102021 The patient was seen this morning. She remains asymptomatic in terms of chest pain. She remains he was medically stable besides sinus tachycardia which she has been experiencing pain in both legs. I am going to monitor the heart rate for additional 24 hours and consider increasing the dose of carvedilol if she remains tachycardic. 02/11/2022 The patient was seen and evaluated this morning. She remains tachycardic with a resting heart rate above 100 bpm. I'm going to increase the dose of carvedilol. Continue monitor the blood pressure. Follow-up with the patient and continue adjusting the dose of beta maurice if needs to Objective - Vital Signs Vital signs: Vital Signs Temp 98.3 F 02/11/22 09:00 Pulse 119 H 02/11/22 09:00 Resp 20 02/11/22 09:00 BP 120/77 02/11/22 09:00 Pulse Ox 95 02/11/22 09:00 FiO2 Intake & Output 02/10/22 02/11/22 02/11/22 18:59 06:59 18:59 Intake Total 310 Output Total 800 600 700 Balance -490 -600 -700 Intake: Blood Product 310 Rc As-1 Unit 310 [id number] Output: Urine 800 600 700 Other: Voiding Method External Catheter External Catheter - Constitutional General appearance: Present: no acute distress - Respiratory Respiratory: bilateral: diminished - Cardiovascular Rhythm: regular - Labs CBC & Chem 7: 02/11/22 07:17 02/11/22 07:17 Labs: Abnormal Lab Results - Last 24 Hours (Table) 02/07/22 02/10/22 02/10/22 Range/Units 12:38 06:02 11:23 WBC 10.15 H (4.50-10.00) X 10*3/uL RBC 2.59 L (4.10-5.20) X 10*6/uL Hgb 6.9 L* (12.0-15.0) g/dL Hct 23.0 L (37.2-46.3) % MCH 26.6 L (27.0-32.0) pg MCHC 30.0 L (32.0-37.0) g/dL RDW 15.8 H (11.5-14.5) % MPV 9.3 L (9.5-12.2) fL Absolute Nucleated RBC 0.02 H (0.00-0.00) X 10*3/uL Immature Gran # 0.16 H (0.00-0.04) X 10*3/uL Neutrophils # 8.01 H (1.80-7.70) X 10*3/uL Lymphocytes # (1.0-4.8) k/uL NRBC/100 WBC Diff 0.2 H (0.0-0.0) /100 WBCS Chloride (98-107) mmol/L BUN (7-17) mg/dL Creatinine (0.52-1.04) mg/dL Glucose (74-99) mg/dL POC Glucose (mg/dL) 114 H (70-110) mg/dL Calcium (8.4-10.2) mg/dL Crossmatch See Detail 02/10/22 02/10/22 02/11/22 Range/Units 17:19 20:45 07:17 WBC (4.50-10.00) X 10*3/uL RBC 2.93 L (4.10-5.20) X 10*6/uL Hgb 8.2 L (12.0-15.0) g/dL Hct 26.0 L (37.2-46.3) % MCH (27.0-32.0) pg MCHC (32.0-37.0) g/dL RDW 16.5 H (11.5-14.5) % MPV (9.5-12.2) fL Absolute Nucleated RBC (0.00-0.00) X 10*3/uL Immature Gran # (0.00-0.04) X 10*3/uL Neutrophils # (1.80-7.70) X 10*3/uL Lymphocytes # 0.8 L (1.0-4.8) k/uL NRBC/100 WBC Diff (0.0-0.0) /100 WBCS Chloride (98-107) mmol/L BUN (7-17) mg/dL Creatinine (0.52-1.04) mg/dL Glucose (74-99) mg/dL POC Glucose (mg/dL) 212 H 221 H (70-110) mg/dL Calcium (8.4-10.2) mg/dL Crossmatch 02/11/22 02/11/22 Range/Units 07:17 08:16 WBC (4.50-10.00) X 10*3/uL RBC (4.10-5.20) X 10*6/uL Hgb (12.0-15.0) g/dL Hct (37.2-46.3) % MCH (27.0-32.0) pg MCHC (32.0-37.0) g/dL RDW (11.5-14.5) % MPV (9.5-12.2) fL Absolute Nucleated RBC (0.00-0.00) X 10*3/uL Immature Gran # (0.00-0.04) X 10*3/uL Neutrophils # (1.80-7.70) X 10*3/uL Lymphocytes # (1.0-4.8) k/uL NRBC/100 WBC Diff (0.0-0.0) /100 WBCS Chloride 109 H (98-107) mmol/L BUN 41 H (7-17) mg/dL Creatinine 3.18 H (0.52-1.04) mg/dL Glucose 175 H (74-99) mg/dL POC Glucose (mg/dL) 184 H (70-110) mg/dL Calcium 7.9 L (8.4-10.2) mg/dL Crossmatch Microbiology - Last 24 Hours (Table) 02/06/22 13:00 Blood Culture - Preliminary Blood No Growth after 96 hours Assessment and Plan Assessment: Assessment Change in mental status History of stroke Multiple comorbid conditions Chronic pain Elevated NT proBNP Plan Continue the current medical regimen Increase the dose of carvedilol
--- NOTE | 2022-02-11 10:59 | P.PN ---
Subjective Progress Note Date: 02/11/22 Principal diagnosis: Shortness of breath. 36-year-old female initially seen in the emergency department on February 06, for following, and mental status changes. The patient has a previous history of CVA, right-sided deficits, cognitive delay, gastric bypass, and DVT. The eric ent resides at a local care home, and she has been there since 2017. She apparently fell, and had an x-ray and computed tomography scan done, of her right knee, which showed a nondisplaced hairline fracture of the distal femur involving the intercondylar distal femur. She was placed in a knee immobilizer, given Toradol and morphine. She was then transferred back to the facility. She apparently was found to be poorly responsive by the nurse at the facility, and for that reason was transported back. We are asked to see her, because apparently she developed shortness of breath, and required oxygen therapy, and a higher rate than she normally getting. She's usually getting 2 L at the care home, and currently she is on 6 L high flow oxygen, with excellent saturations. The patient is on saline at 75 mL an hour. She is seen today in room 628. White count 9, hemoglobin 8.1, hematocrit 26.3, and platelet count normal. D- dimer was 3.37. Sodium 137, potassium 4.2, chlorides 111, CO2 19, BUN 36, and creatinine 3.19. Interestingly, her N-terminal proBNP is 4190. Testing for an infection such as influenza, respiratory syncytial virus, and coronavirus, all negative. Arterial blood gases, at the day of admission, show pO2 of 104, pCO2 of 53 and pH of 7.3. In addition, she has gram-negative bacilli in her urine, and is currently on ertapenem. Initial chest x-ray on the , shows cardiomegaly, and low lung volumes, without an acute process. Follow-up chest x-ray shows diffuse bilateral infiltrates, which could be consistent with pneumonia or fluid overload. I'm reevaluating this patient today on 02/09/2022 on a general medical floor. She is currently sitting up in bed, on 4 L nasal cannula, in no acute distress. Patient is telling me that she is less short of breath this morning. Denies any cough, fever, orthopnea, chest pain. Vital signs remain stable, however, patient is slightly tachycardic this morning it 115 bpm. Heart rhythm is regular. Urine sample was positive for ESBL on 02/06/2022. She is covered with ertapenem, and infectious disease is following. Procalcitonin yesterday was elevated at 1.02. CBC from today is stable showing some anemia with a hemoglobin of 7, hematocrit 22.6, WBC count 8.6, platelets 296,000. She did receive a unit of PRBCs on 02/07/2022, and there are no overt signs of bleeding. Chest x-ray from yesterday 02/08/2022 shows worsening diffuse bilateral lung infiltrates. Her BNP from yesterday was 4190. Fluid balance over the last 24 hours is -900 ml. Progress note dated 02/10/2022. The patient is seen today in room 527. The patient appears very stable, from the respiratory standpoint. She's on 4 L of oxygen. She's getting saline at 75 mL an hour. We did order a chest x-ray for the morning. White count 10.2, hemoglobin 6.9, hematocrit 23, and platelet count 291,000. Sodium 139, potassium 4.4, chlorides 110, CO2 24, BUN 40, and creatinine 3.21. Urine was positive for ESBL Escherichia coli. Progress note dated 02/11/2022. The patient is seen again today in room 27. She's currently on 5 L of oxygen. She feels very comfortable. She is on saline at 20 mL an hour. Her only complaint today is that her shins hurt. She's not having any respiratory complaints, including wheezing, cough, phlegm production, or shortness of breath. She continues on ertapenem, ESBL E. coli urinary tract infection. White count 8.3, hemoglobin 8.2, hematocrit 26, and platelet count 337,000. Sodium 139, potassium 4.5, chlorides 109, CO2 24, BUN 41, creatinine 3.18. Chest x-ray shows improved findings, as it relates to her airspace opacities. Objective - Vital Signs Vital signs: Vital Signs Temp 98.3 F 02/11/22 09:00 Pulse 119 H 02/11/22 09:00 Resp 20 02/11/22 09:00 BP 120/77 02/11/22 09:00 Pulse Ox 97 02/11/22 10:51 FiO2 Intake & Output 02/10/22 02/11/22 02/11/22 18:59 06:59 18:59 Intake Total 310 Output Total 800 600 700 Balance -490 -600 -700 Intake: Blood Product 310 Rc As-1 Unit 310 [id number] Output: Urine 800 600 700 Other: Voiding Method External Catheter External Catheter External Catheter - Exam No acute distress, oriented 3. No respiratory distress. No audible wheezing or use of accessory muscles. HEENT examination is grossly unremarkable. Neck supple. Full range of motion. No adenopathy thyromegaly or neck vein distention. Cardiovascular examination reveals regular rhythm rate. S1-S2 normal. No S3 or S4. No discernible murmur noted. Heart rate 88 bpm. Lungs reveal mostly clear breath sounds. Scattered rhonchi are noted. A few scattered crackles are appreciated. Breath sounds are equal bilaterally. 5 L saturation is 97 %. Abdomen soft bowel sounds are heard. No masses or tenderness. Extremities are intact. No cyanosis clubbing or edema. Skin is without rash or lesion. Neurologic examination is brief but nonfocal. - Labs CBC & Chem 7: 02/11/22 07:17 02/11/22 07:17 Labs: Abnormal Lab Results - Last 24 Hours (Table) 02/07/22 02/10/22 02/10/22 Range/Units 12:38 11:23 17:19 RBC (3.80-5.40) m/uL Hgb (11.4-16.0) gm/dL Hct (34.0-46.0) % RDW (11.5-15.5) % Lymphocytes # (1.0-4.8) k/uL Chloride (98-107) mmol/L BUN (7-17) mg/dL Creatinine (0.52-1.04) mg/dL Glucose (74-99) mg/dL POC Glucose (mg/dL) 114 H 212 H (70-110) mg/dL Calcium (8.4-10.2) mg/dL Crossmatch See Detail 02/10/22 02/11/22 02/11/22 Range/Units 20:45 07:17 07:17 RBC 2.93 L (3.80-5.40) m/uL Hgb 8.2 L (11.4-16.0) gm/dL Hct 26.0 L (34.0-46.0) % RDW 16.5 H (11.5-15.5) % Lymphocytes # 0.8 L (1.0-4.8) k/uL Chloride 109 H (98-107) mmol/L BUN 41 H (7-17) mg/dL Creatinine 3.18 H (0.52-1.04) mg/dL Glucose 175 H (74-99) mg/dL POC Glucose (mg/dL) 221 H (70-110) mg/dL Calcium 7.9 L (8.4-10.2) mg/dL Crossmatch 02/11/22 Range/Units 08:16 RBC (3.80-5.40) m/uL Hgb (11.4-16.0) gm/dL Hct (34.0-46.0) % RDW (11.5-15.5) % Lymphocytes # (1.0-4.8) k/uL Chloride (98-107) mmol/L BUN (7-17) mg/dL Creatinine (0.52-1.04) mg/dL Glucose (74-99) mg/dL POC Glucose (mg/dL) 184 H (70-110) mg/dL Calcium (8.4-10.2) mg/dL Crossmatch Microbiology - Last 24 Hours (Table) 02/06/22 13:00 Blood Culture - Preliminary Blood No Growth after 96 hours Assessment and Plan Assessment: Acute hypoxemic respiratory failure, likely on the basis of either pneumonia, and/or CHF. Alveolar hypoventilation, likely secondary to narcotics. History of CVA. History of deep vein thromboses. Prior history of myocardial infarction. S/P gastric bypass, 2016. History of pancreatitis. Prior history of urinary tract infections with extended spectrum beta-lactamase producing Escherichia coli. History of anxiety/depression. History of hypothyroidism. History of diabetes mellitus. Multiple other medical problems and comorbidities. Plan: Plan dated 02/08/2022. The patient continues on ertapenem for a gram-negative bacilli in her urine. She does have a prior history of multiple drug resistant organisms, including extended spectrum beta-lactamase producing E. coli. The patient's getting saline at 75 mL an hour, and oxygen at 6 L, with high flow nasal cannula. Labs, x-rays, and medications are all reviewed. The N-terminal proBNP that we ordered today was elevated at 4190. The pro-calcitonin level is pending. We will continue to follow make recommendations along the way. The patient appears to be relatively stable at this time. Plan dated 02/10/2022. We have ordered a chest x-ray for the morning. The patient's respiratory status seems to be stable. She did have evidence of Escherichia coli in the urine, and for that she is on ertapenem. We will continue to follow make recommendations where appropriate. Labs, x-rays, and medications are reviewed. Prognosis is guarded. Plan dated 02/11/2022. The patient appears to be doing relatively well. She is on 5 L. Saturations are excellent, and her oxygen can be titrated down. Labs, x-rays, and medications are reviewed. The patient denies any respiratory issues whatsoever. Her only complaint today is at her shins hurt. She was seen by cardiology today, and they recommended her current medical regimen, and increasing the dose of Coreg. We will continue to follow and make recommendations along the way. Prognosis is guarded. Time with Patient: Less than 30
[2022-02-11 12:19] LABS: Glucose,Whole Blood 193 mg/dL (70-110)
--- NOTE | 2022-02-11 13:26 | P.PN ---
Subjective Progress Note Date: 02/11/22 Principal diagnosis: Urinary tract infection Patient is a 36-year-old female with a past medical history significant for cognitive impairment CVA with right-sided weakness and a history of gastric bypass surgery patient was sent to the ER from the [facility] for evaluation of mental status changes, patient did have a positive UA concerning for possible symptomatic urinary tract infection with a previous history of ESBL E. coli. On today's evaluation her that is 02/11/2022, the patient remains to be afebrile, patient is breathing comfortably on 5 L nasal oxygen, the patient denies any chest pain shortness of breath did have a occasional dry cough, no abdominal pain , patient is complaining of pain to bilateral knee area today Objective - Vital Signs Vital signs: Vital Signs Temp 98.3 F 02/11/22 09:00 Pulse 119 H 02/11/22 09:00 Resp 20 02/11/22 09:00 BP 120/77 02/11/22 09:00 Pulse Ox 97 02/11/22 10:51 FiO2 Intake & Output 02/10/22 02/11/22 02/11/22 18:59 06:59 18:59 Intake Total 310 Output Total 800 600 700 Balance -490 -600 -700 Intake: Blood Product 310 Rc As-1 Unit 310 [id number] Output: Urine 800 600 700 Other: Voiding Method External Catheter External Catheter External Catheter - Exam GENERAL DESCRIPTION: A middle-age female lying in bed in no distress RESPIRATORY SYSTEM: Unlabored breathing , decreased breath sounds at bases HEART: S1 S2 regular rate and rhythm , ABDOMEN: Soft , no tenderness EXTREMITIES: No edema feet - Labs CBC & Chem 7: 02/11/22 07:17 02/11/22 07:17 Labs: Abnormal Lab Results - Last 24 Hours (Table) 02/07/22 02/10/22 02/10/22 Range/Units 12:38 17:19 20:45 RBC (3.80-5.40) m/uL Hgb (11.4-16.0) gm/dL Hct (34.0-46.0) % RDW (11.5-15.5) % Lymphocytes # (1.0-4.8) k/uL Chloride (98-107) mmol/L BUN (7-17) mg/dL Creatinine (0.52-1.04) mg/dL Glucose (74-99) mg/dL POC Glucose (mg/dL) 212 H 221 H (70-110) mg/dL Calcium (8.4-10.2) mg/dL Crossmatch See Detail 02/11/22 02/11/22 02/11/22 Range/Units 07:17 07:17 08:16 RBC 2.93 L (3.80-5.40) m/uL Hgb 8.2 L (11.4-16.0) gm/dL Hct 26.0 L (34.0-46.0) % RDW 16.5 H (11.5-15.5) % Lymphocytes # 0.8 L (1.0-4.8) k/uL Chloride 109 H (98-107) mmol/L BUN 41 H (7-17) mg/dL Creatinine 3.18 H (0.52-1.04) mg/dL Glucose 175 H (74-99) mg/dL POC Glucose (mg/dL) 184 H (70-110) mg/dL Calcium 7.9 L (8.4-10.2) mg/dL Crossmatch 02/11/22 Range/Units 12:18 RBC (3.80-5.40) m/uL Hgb (11.4-16.0) gm/dL Hct (34.0-46.0) % RDW (11.5-15.5) % Lymphocytes # (1.0-4.8) k/uL Chloride (98-107) mmol/L BUN (7-17) mg/dL Creatinine (0.52-1.04) mg/dL Glucose (74-99) mg/dL POC Glucose (mg/dL) 193 H (70-110) mg/dL Calcium (8.4-10.2) mg/dL Crossmatch Microbiology - Last 24 Hours (Table) 02/06/22 13:00 Blood Culture - Preliminary Blood No Growth after 96 hours Assessment and Plan (1) UTI (urinary tract infection) Current Visit: No Status: Acute Code(s): N39.0 - URINARY TRACT INFECTION, SITE NOT SPECIFIED SNOMED Code(s): 94204332 Plan: 1patient is in the hospital with mental status changes weakness and a fall which is likely multifactorial in this patient who did have a positive UA some urinary symptoms concerning for symptomatic UTI likely from enteric gram-negat umesh pathogen however the patient do have a history of ESBL E. coli infection and will need to cover for ESBL until the cultures are finalized. 2patient did have elevated BUN and creatinine ultrasound didn't show any obstructive uropathy. 3patient urine has been finalized with ESBL E. coli patient currently being treated with Invanz 500 mg daily the dose adjusted to the kidney function 4-patient also have evidence of hypoxemia need for supplemental oxygen with bilateral opacities questionable fluid related versus component of pneumonia as pro calcitonin was mildly elevated, try to obtain a sputum if possible Time with Patient: Less than 30
--- NOTE | 2022-02-11 14:42 | P.PN ---
Subjective Progress Note Date: 02/11/22 Principal diagnosis: fall and sob Patient is still having severe pain in the left lower extremity. She was prescribed some chest tightness morning. Denies shortness of breath. No fevers or chills. No nausea or vomiting. Has history of severe anxieties and depression, this is currently worse. Objective - Vital Signs Vital signs: Vital Signs Temp 98.3 F 02/11/22 09:00 Pulse 119 H 02/11/22 09:00 Resp 20 02/11/22 09:00 BP 120/77 02/11/22 09:00 Pulse Ox 97 02/11/22 10:51 FiO2 Intake & Output 02/10/22 02/11/22 02/11/22 18:59 06:59 18:59 Intake Total 310 Output Total 800 600 700 Balance -490 -600 -700 Intake: Blood Product 310 Rc As-1 Unit 310 [id number] Output: Urine 800 600 700 Other: Voiding Method External Catheter External Catheter External Catheter - Exam Constitutional: No acute distress, conversant, pleasant Eyes:Anicteric sclerae, moist conjunctiva, no lid-lag, PERRLA, ENMT: Oropharynx clear, no erythema, exudates Neck: Supple, FROM, no masses, or JVD, No carotid bruits, No thyromegaly Lungs: Clear to auscultation, Clear to percussion, Normal respiratory effort, no accessory muscle use Cardiovascular: Heart regular in rate and rhythm, No murmurs, gallops, or rubs, No peripheral edema Abdominal: Soft, Nontender, no guarding, rebound or rigidity, Normoactive bowel sounds, No hepatomegaly, No splenomegaly, No palpable mass Skin: Normal temperature, tone, texture, turgor, no induration, No subcutaneous nodules, No rash, lesions, No ulcers Extremities: Severe pain with range of motion of the lower extremities. No digital cyanosis, No clubbing, Pedal pulses intact and symmetrical, Radial pulses intact and symmetrical, No calf tenderness Psychiatric: Alert and oriented to person, place and time, appropriate affect, intact judgement Neuro: Gen. weakness - Labs CBC & Chem 7: 02/11/22 07:17 02/11/22 07:17 Labs: Abnormal Lab Results - Last 24 Hours (Table) 02/07/22 02/10/22 02/10/22 Range/Units 12:38 17:19 20:45 RBC (3.80-5.40) m/uL Hgb (11.4-16.0) gm/dL Hct (34.0-46.0) % RDW (11.5-15.5) % Lymphocytes # (1.0-4.8) k/uL Chloride (98-107) mmol/L BUN (7-17) mg/dL Creatinine (0.52-1.04) mg/dL Glucose (74-99) mg/dL POC Glucose (mg/dL) 212 H 221 H (70-110) mg/dL Calcium (8.4-10.2) mg/dL Crossmatch See Detail 02/11/22 02/11/22 02/11/22 Range/Units 07:17 07:17 08:16 RBC 2.93 L (3.80-5.40) m/uL Hgb 8.2 L (11.4-16.0) gm/dL Hct 26.0 L (34.0-46.0) % RDW 16.5 H (11.5-15.5) % Lymphocytes # 0.8 L (1.0-4.8) k/uL Chloride 109 H (98-107) mmol/L BUN 41 H (7-17) mg/dL Creatinine 3.18 H (0.52-1.04) mg/dL Glucose 175 H (74-99) mg/dL POC Glucose (mg/dL) 184 H (70-110) mg/dL Calcium 7.9 L (8.4-10.2) mg/dL Crossmatch 02/11/22 Range/Units 12:18 RBC (3.80-5.40) m/uL Hgb (11.4-16.0) gm/dL Hct (34.0-46.0) % RDW (11.5-15.5) % Lymphocytes # (1.0-4.8) k/uL Chloride (98-107) mmol/L BUN (7-17) mg/dL Creatinine (0.52-1.04) mg/dL Glucose (74-99) mg/dL POC Glucose (mg/dL) 193 H (70-110) mg/dL Calcium (8.4-10.2) mg/dL Crossmatch Microbiology - Last 24 Hours (Table) 02/06/22 13:00 Blood Culture - Preliminary Blood No Growth after 96 hours Assessment and Plan Plan: Unresponsiveness likely metabolic and toxic encephalopathy versus hypoxia Continue to monitor Improved, mental status back to baseline Patient received multiple dose of baclofen and morphine 4 mg x 1. Acute urinary tract infection with prior history of ESBL Continue ertapenem Urine cultures growing E. coli ESBL Acute hypoxemic respiratory failure, likely on the basis of either pneumonia, and/or CHF. Alveolar hypoventilation, likely secondary to narcotics. Patient was seen by pulmonary service, pulmonary embolism unlikely because she was on anti-coagulation Continue O2 Discontinue IV fluids as BNP is high Pro calcitonin elevated, she is covered with ertapenem ID following Acute on chronic anemia could be secondary to internal bleeding from the fracture, declined computed tomography scan Hold eliquis She is status post 1 unit packed cells on 02/07, another unit on 02/10 Hemoglobin stabilized Nondisplaced hairline fracture of the distal femur involving the intracondylar d istal femur. Status post fall from her bed and landed on her knees. Status post knee immobilizer. Ortho following X rays of bilateral lower extremities to r/u other fractures ordered but she declined. Add Lyrica for pain control, continues to be on [place] and baclofen. Morbid obesity History of CVA with right-sided weakness Gastric bypass surgery in 2016 Anxiety/depression and panic disorder History of DVT on anticoagulation with Eliquis Normocytic anemia/anemia of chronic disease with hemoglobin 7.9 Acute on CKD stage IV with baseline creatinine around 3.0 DVT prophylaxis hold AC due to anemia, lower extremities too painful for SCDs All stable Resume meds
[2022-02-11] MEDS: ERTAPENEM 0.5 GM in SODIUM CHLORIDE 0.9% 50 ML IVPB SCH (16:17)
[2022-02-11 17:58] LABS: Glucose,Whole Blood 176 mg/dL (70-110)
[2022-02-11] MEDS: carvediloL 12.5 MG TAB PO SCH (17:59)
[2022-02-11 20:17] LABS: Glucose,Whole Blood 194 mg/dL (70-110)
[2022-02-11] MEDS: clonazePAM 0.5 MG TAB PO SCH (20:55)
[2022-02-11] MEDS: ATORVASTATIN 20 MG TAB PO SCH (20:55)
[2022-02-11] MEDS: PREGABALIN 50 MG CAP PO SCH (20:55)
[2022-02-11] MEDS: LEVOTHYROXINE 25 MCG TAB PO SCH (20:55)
[2022-02-11] MEDS: INSULIN DETEMIR (LEVEMIR) 100 UNIT/ML SYR SQ SCH (21:03)
[2022-02-12] MEDS: HYDROcodone/APAP 7.5-325MG 1 EACH TAB PO PRN ×3 (06:14→18:25)
[2022-02-12] MEDS: BACLOFEN 10 MG TAB PO SCH ×3 (06:14→21:30)
[2022-02-12 06:34] LABS: Anisocytosis Slight; Basophils % (A) 1 %; Eosinophils # (A) 0.2 k/uL (0-0.7); Eosinophils % (A) 3 %; HCT 28.2 % (34.0-46.0); HGB 8.3 gm/dL (11.4-16.0); Hypochromasia Marked; Lymphocytes # (A) 0.7 k/uL (1.0-4.8); Lymphocytes % (A) 9 %; MCH 27.5 pg (25.0-35.0); MCHC 29.5 g/dL (31.0-37.0); MCV 93.3 fL (80.0-100.0); Mean Platelet Volume 8.1; Monocytes # (A) 0.4 k/uL (0-1.0); Monocytes % (A) 5 %; Neutrophils # (A) 6.5 k/uL (1.3-7.7); Neutrophils % (A) 80 %; Platelet Count 321 k/uL (150-450); Poikilocytosis Moderate; RBC 3.02 m/uL (3.80-5.40); RDW 16.2 % (11.5-15.5); WBC 8.1 k/uL (3.8-10.6)
[2022-02-12 06:49] LABS: Glucose,Whole Blood 185 mg/dL (70-110)
[2022-02-12] MEDS: INSULIN ASPART (NovoLOG) 100 UNIT/ML VIAL SQ SCH ×4 (08:24→21:31)
[2022-02-12] MEDS: SODIUM BICARBONATE TAB 650 MG TAB PO SCH ×2 (08:24→21:31)
[2022-02-12] MEDS: PREGABALIN 50 MG CAP PO SCH ×2 (08:24→21:31)
--- NOTE | 2022-02-12 09:18 | P.PN ---
Subjective Progress Note Date: 02/12/22 HISTORY OF PRESENT ILLNESS: The patient is an unfortunate 36-year-old female patient with a past medical history significant for history of stroke with residual weakness as well as history of DVT as well as diabetes and hypertension and dyslipidemia as well as multiple comorbid conditions was admitted to the hospital with change in mental status and she was diagnosed was possibly pneumonia. We consulted to see the patient mainly because of elevated NT proBNP. We felt that the patient was not in failure. We performed an echocardiogram and that showed preserved the front of the systolic function was no significant valvular abnormalities. February 102021 The patient was seen this morning. She remains asymptomatic in terms of chest pain. She remains he was medically stable besides sinus tachycardia which she has been experiencing pain in both legs. I am going to monitor the heart rate for additional 24 hours and consider increasing the dose of carvedilol if she remains tachycardic. 02/11/2022 The patient was seen and evaluated this morning. She remains tachycardic with a resting heart rate above 100 bpm. I'm going to increase the dose of carvedilol. Continue monitor the blood pressure. Follow-up with the patient and continue adjusting the dose of beta maurice if needs to 02/12/2022 Patient examined this morning at the bedside. Patient is lethargic this morning. Appears comfortable. Denies chest pain or pressure. Denies SOB. Blood pressure and heart rate remain elevated. PHYSICAL EXAM: VITAL SIGNS: Reviewed. GENERAL: Well-developed in no acute distress. NECK: Supple. No JVD or thyromegaly LUNGS: Respirations even and unlabored. Lungs essentially clear to auscultation bilaterally. HEART: Regular rate and rhythm. S1 and S2 heard. EXTREMITIES: Normal range of motion. No clubbing or cyanosis. Peripheral pul ses intact. No lower extremity edema ASSESSMENT: Change in mental status History of stroke Multiple comorbid conditions Chronic pain Elevated NT proBNP PLAN: Discontinue Coreg Begin metoprolol succinate 50mg daily Continue to monitor blood pressure and heart rate We will follow on an as needed basis Please call with questions or concerns Nurse practitioner note has been reviewed by physician. Signing provider agrees with the documented findings, assessment, and plan of care. Objective - Vital Signs Vital signs: Vital Signs Temp 98.2 F 02/12/22 07:21 Pulse 120 H 02/12/22 07:21 Resp 23 02/12/22 07:21 BP 162/52 02/12/22 07:21 Pulse Ox 93 L 02/12/22 07:21 FiO2 Intake & Output 02/11/22 02/12/22 02/12/22 18:59 06:59 18:59 Intake Total 50 Output Total 700 900 Balance -650 -900 Intake: Intake, IV Titration 50 Amount Ertapenem 0.5 gm In 50 Sodium Chloride 0.9% 50 ml @ 100 mls/hr IVPB Q24H [facility] Rx#:[id number] Output: Urine 700 900 Other: Voiding Method External Catheter External Catheter - Labs CBC & Chem 7: 02/12/22 05:56 02/11/22 07:17 Labs: Abnormal Lab Results - Last 24 Hours (Table) 02/11/22 02/11/22 02/11/22 Range/Units 07:17 07:17 08:16 RBC 2.93 L (3.80-5.40) m/uL Hgb 8.2 L (11.4-16.0) gm/dL Hct 26.0 L (34.0-46.0) % MCHC (31.0-37.0) g/dL RDW 16.5 H (11.5-15.5) % Lymphocytes # 0.8 L (1.0-4.8) k/uL Chloride 109 H (98-107) mmol/L BUN 41 H (7-17) mg/dL Creatinine 3.18 H (0.52-1.04) mg/dL Glucose 175 H (74-99) mg/dL POC Glucose (mg/dL) 184 H (70-110) mg/dL Calcium 7.9 L (8.4-10.2) mg/dL 02/11/22 02/11/22 02/11/22 Range/Units 12:18 17:56 20:14 RBC (3.80-5.40) m/uL Hgb (11.4-16.0) gm/dL Hct (34.0-46.0) % MCHC (31.0-37.0) g/dL RDW (11.5-15.5) % Lymphocytes # (1.0-4.8) k/uL Chloride (98-107) mmol/L BUN (7-17) mg/dL Creatinine (0.52-1.04) mg/dL Glucose (74-99) mg/dL POC Glucose (mg/dL) 193 H 176 H 194 H (70-110) mg/dL Calcium (8.4-10.2) mg/dL 02/12/22 02/12/22 Range/Units 05:56 06:47 RBC 3.02 L (3.80-5.40) m/uL Hgb 8.3 L (11.4-16.0) gm/dL Hct 28.2 L (34.0-46.0) % MCHC 29.5 L (31.0-37.0) g/dL RDW 16.2 H (11.5-15.5) % Lymphocytes # 0.7 L (1.0-4.8) k/uL Chloride (98-107) mmol/L BUN (7-17) mg/dL Creatinine (0.52-1.04) mg/dL Glucose (74-99) mg/dL POC Glucose (mg/dL) 185 H (70-110) mg/dL Calcium (8.4-10.2) mg/dL Microbiology - Last 24 Hours (Table) 02/06/22 13:00 Blood Culture - Preliminary Blood No Growth after 120 hours
--- NOTE | 2022-02-12 09:29 | P.PN ---
Subjective Progress Note Date: 02/12/22 Principal diagnosis: Left intercondylar distal femur fracture, nondisplaced. Patient seen and examined at bedside today. She is resting comfortably in bed with her knee immobilizer intact. She is less awake and alert today than prior encounters. She opens her eyes to verbal stimulus but will not answer any of my questions. Objective - Vital Signs Vital signs: Vital Signs Temp 98.2 F 02/12/22 07:21 Pulse 120 H 02/12/22 07:21 Resp 23 02/12/22 07:21 BP 162/52 02/12/22 07:21 Pulse Ox 93 L 02/12/22 07:21 FiO2 Intake & Output 02/11/22 02/12/22 02/12/22 18:59 06:59 18:59 Intake Total 50 Output Total 700 900 Balance -650 -900 Intake: Intake, IV Titration 50 Amount Ertapenem 0.5 gm In 50 Sodium Chloride 0.9% 50 ml @ 100 mls/hr IVPB Q24H [facility] Rx#:[id number] Output: Urine 700 900 Other: Voiding Method External Catheter External Catheter - Exam Left lower extremity: 2+/ 4 DP and PT pulses. Cap refill is less than 3 seconds. No bruising or erythema present around the knee. Compartments are soft and compressible. Knee immobilizer is intact. Remainder of physical exam limited due to patients mental status - Labs CBC & Chem 7: 02/12/22 05:56 02/11/22 07:17 Labs: Abnormal Lab Results - Last 24 Hours (Table) 02/11/22 02/11/22 02/11/22 Range/Units 12:18 17:56 20:14 RBC (3.80-5.40) m/uL Hgb (11.4-16.0) gm/dL Hct (34.0-46.0) % MCHC (31.0-37.0) g/dL RDW (11.5-15.5) % Lymphocytes # (1.0-4.8) k/uL POC Glucose (mg/dL) 193 H 176 H 194 H (70-110) mg/dL 02/12/22 02/12/22 Range/Units 05:56 06:47 RBC 3.02 L (3.80-5.40) m/uL Hgb 8.3 L (11.4-16.0) gm/dL Hct 28.2 L (34.0-46.0) % MCHC 29.5 L (31.0-37.0) g/dL RDW 16.2 H (11.5-15.5) % Lymphocytes # 0.7 L (1.0-4.8) k/uL POC Glucose (mg/dL) 185 H (70-110) mg/dL Microbiology - Last 24 Hours (Table) 02/06/22 13:00 Blood Culture - Preliminary Blood No Growth after 120 hours Assessment and Plan Assessment: 1.) Left non displaced unicortical intercondylar distal femur fracture 2.) Multiple medical comorbidities Plan: 1.) Non-weight bearing left lower extremity with knee immobilizer 2.) PT/OT. Okay to move foot/ankle in knee immobilizer 3.) Ice and elevate lower extremity 4.) Currently DVT PPX is being held per IM due to a Hgb of 8.2. Strongly recommend resuming DVT prophylaxis if no other medical contraindactions are pr esent due to patients history of prior DVT, current femur fracture, and patients overall immobility. 5.) Ortho stable for DC, F/U outpatient in 2 weeks. -Parveen Trevino DO Orthopedic Surgeon Time with Patient: Less than 30
[2022-02-12] MEDS: METOPROLOL SUCCINATE (ER) 50 MG TAB.ER.24H PO SCH (09:32)
[2022-02-12 09:57] LABS: African American GFR (CKD) 19.1 (60.0-200.0); Albumin 2.6 g/dL (3.8-4.9); Albumin/Globulin Ratio 0.87 (1.60-3.17); Anion Gap 10.1 mmol/L (10.00-18.00); BUN/Creat Ratio 12.74 Ratio (12.00-20.00); Blood Urea Nitrogen 43.3 mg/dL (9.0-27.0); Calcium 8.5 mg/dL (8.7-10.3); Carbon Dioxide 21.9 mmol/L (20.0-27.5); Magnesium 1.9 mg/dL (1.5-2.4); Non-African American GFR(CKD) 16.5 (60.0-200.0); Potassium 4.9 mmol/L (3.5-5.5); Total Bilirubin 0.2 mg/dL (0.30-1.20); Total Protein 5.6 g/dL (6.2-8.2)
[2022-02-12] MEDS: carvediloL 12.5 MG TAB PO SCH (10:48)
[2022-02-12 11:19] LABS: Glucose,Whole Blood 159 mg/dL (70-110)
[2022-02-12] MEDS: SODIUM CHLORIDE 0.9% 1,000 ML IV SCH (12:58)
--- NOTE | 2022-02-12 13:19 | P.PN ---
Subjective Progress Note Date: 02/12/22 Principal diagnosis: Dyspnea, hypoxemia, pneumonia, ESBL UTI 36-year-old female initially seen in the emergency department on February 06, for following, and mental status changes. The patient has a previous history of CVA, right-sided deficits, cognitive delay, gastric bypass, and DVT. The [facility] a [facility], and she has been there since 2017. She apparently fell, and had an x-ray and computed tomography scan done, of her right knee, which showed a nondisplaced hairline fracture of the distal femur involving the intercondylar distal femur. She was placed in a knee immobilizer, given Toradol and morphine. She was then transferred back to the facility. She apparently was found to be poorly responsive by the nurse at the facility, and for that reason was transported back. We are asked to see her, because apparently she developed shortness of breath, and required oxygen therapy, and a higher rate than she normally getting. She's usually getting 2 L at the [facility], and currently she is on 6 L high flow oxygen, with excellent saturations. The patient is on saline at 75 mL an hour. She is seen today in room 628. White count 9, hemoglobin 8.1, hematocrit 26.3, and platelet count normal. D- dimer was 3.37. Sodium 137, potassium 4.2, chlorides 111, CO2 19, BUN 36, and creatinine 3.19. Interestingly, her N-terminal proBNP is 4190. Testing for an infection such as influenza, respiratory syncytial virus, and coronavirus, all negative. Arterial blood gases, at the day of admission, show pO2 of 104, pCO2 of 53 and pH of 7.3. In addition, she has gram-negative bacilli in her urine, and is currently on ertapenem. Initial chest x-ray on the , shows cardiomegaly, and low lung volumes, without an acute process. Follow-up chest x-ray shows diffuse bilateral infiltrates, which could be consistent with pneumonia or fluid overload. I'm reevaluating this patient today on 02/09/2022 on a general medical floor. She is currently sitting up in bed, on 4 L nasal cannula, in no acute distress. Patient is telling me that she is less short of breath this morning. Denies any cough, fever, orthopnea, chest pain. Vital signs remain stable, however, patient is slightly tachycardic this morning it 115 bpm. Heart rhythm is regular. Urine sample was positive for ESBL on 02/06/2022. She is covered with ertapenem, and infectious disease is following. Procalcitonin yesterday was elevated at 1.02. CBC from today is stable showing some anemia with a hemoglobin of 7, hematocrit 22.6, WBC count 8.6, platelets 296,000. She did receive a unit of PRBCs on 02/07/2022, and there are no overt signs of bleeding. Chest x-ray from yesterday 02/08/2022 shows worsening diffuse bilateral lung infiltrates. Her BNP from yesterday was 4190. Fluid balance over the last 24 hours is -900 ml. Progress note dated 02/10/2022. The patient is seen today in room 527. The patient appears very stable, from the respiratory standpoint. She's on 4 L of oxygen. She's getting saline at 75 mL an hour. We did order a chest x-ray for the morning. White count 10.2, hemoglobin 6.9, hematocrit 23, and platelet count 291,000. Sodium 139, potassium 4.4, chlorides 110, CO2 24, BUN 40, and creatinine 3.21. Urine was positive for ESBL Escherichia coli. Progress note dated 02/11/2022. The patient is seen again today in room 27. She's currently on 5 L of oxygen. She feels very comfortable. She is on saline at 20 mL an hour. Her only complaint today is that her shins hurt. She's not having any respiratory complaints, including wheezing, cough, phlegm production, or shortness of breath. She continues on ertapenem, ESBL E. coli urinary tract infection. White count 8.3, hemoglobin 8.2, hematocrit 26, and platelet count 337,000. Sodium 139, potassium 4.5, chlorides 109, CO2 24, BUN 41, creatinine 3.18. Chest x-ray shows improved findings, as it relates to her airspace opacities. I'm reevaluating this patient today on 04/02/2022 on a general medical floor. She appears fairly comfortable resting in bed, on 5 L nasal cannula. denies any significant shortness of breath, cough, chest pain, fevers.most recent chest x- ray from 02/11/2022 showed improved aeration of the lungs with some persistent multifocal airspace opacities. she is tachycardic with a heart rate of 120 bpm, heart rhythm is regular. blood pressures remains stable and has not required any vasopressors or fluid boluses. CBC from today did show some anemia that he see count 8.1, hemoglobin 8.3, hematocrit 28, platelets 321,000. she has received 2 PRBC transfusions this admission, with the most recent transfusion on 02/10/2022. no overt signs of bleeding. she remains on ertapenem for ESBL coverage in the urine. she remains afebrile. she is not receiving any IV fluids. Objective - Vital Signs Vital signs: Vital Signs Temp 98.2 F 02/12/22 07:21 Pulse 120 H 02/12/22 08:00 Resp 23 02/12/22 08:00 BP 162/52 02/12/22 07:21 Pulse Ox 97 02/12/22 12:20 FiO2 5 02/12/22 12:20 Intake & Output 02/11/22 02/12/22 02/12/22 18:59 06:59 18:59 Intake Total 50 25 Output Total 700 900 Balance -650 -900 25 Intake: Intake, IV Titration 50 Amount Ertapenem 0.5 gm In 50 Sodium Chloride 0.9% 50 ml @ 100 mls/hr IVPB Q24H [facility] Rx#:[id number] Oral 25 Output: Urine 700 900 Other: Voiding Method External Catheter External Catheter External Catheter - Exam No acute distress, oriented 3. No conversational dyspnea or use of accessory muscles. Currently on 5 L of oxygen. HEENT examination is grossly unremarkable. Neck supple. Full range of motion. No adenopathy thyromegaly or neck vein distention. Cardiovascular examination reveals regular rhythm rate. S1-S2 normal. No S3 or S4. No discernible murmur noted. Heart rate 120 bpm. Lungs reveal scattered bilateral rhonchi. No wheezes. No crackles. Breath tony nds are equal bilaterally. . Abdomen soft bowel sounds are heard. No masses or tenderness. Extremities are intact. No cyanosis clubbing or edema. Skin is without rash or lesion. Neurologic examination is brief but nonfocal. - Labs CBC & Chem 7: 02/12/22 05:56 02/12/22 05:56 Labs: Abnormal Lab Results - Last 24 Hours (Table) 02/11/22 02/11/22 02/12/22 Range/Units 17:56 20:14 05:56 RBC (3.80-5.40) m/uL Hgb (11.4-16.0) gm/dL Hct (34.0-46.0) % MCHC (31.0-37.0) g/dL RDW (11.5-15.5) % Lymphocytes # (1.0-4.8) k/uL BUN (9.0-27.0) mg/dL Creatinine (0.6-1.5) mg/dL Est GFR (CKD-EPI)AfAm (60.0-200.0) Est GFR (CKD-EPI)NonAf (60.0-200.0) Glucose (70-110) mg/dL POC Glucose (mg/dL) 176 H 194 H (70-110) mg/dL Calcium (8.7-10.3) mg/dL Total Bilirubin (0.30-1.20) mg/dL Total Protein (6.2-8.2) g/dL Albumin (3.8-4.9) g/dL Albumin/Globulin Ratio (1.60-3.17) g/dL Procalcitonin 0.54 H (0.02-0.09) ng/mL 02/12/22 02/12/22 02/12/22 Range/Units 05:56 05:56 06:47 RBC 3.02 L (3.80-5.40) m/uL Hgb 8.3 L (11.4-16.0) gm/dL Hct 28.2 L (34.0-46.0) % MCHC 29.5 L (31.0-37.0) g/dL RDW 16.2 H (11.5-15.5) % Lymphocytes # 0.7 L (1.0-4.8) k/uL BUN 43.3 H (9.0-27.0) mg/dL Creatinine 3.4 H (0.6-1.5) mg/dL Est GFR (CKD-EPI)AfAm 19.1 L (60.0-200.0) Est GFR (CKD-EPI)NonAf 16.5 L (60.0-200.0) Glucose 175 H (70-110) mg/dL POC Glucose (mg/dL) 185 H (70-110) mg/dL Calcium 8.5 L (8.7-10.3) mg/dL Total Bilirubin 0.20 L (0.30-1.20) mg/dL Total Protein 5.6 L (6.2-8.2) g/dL Albumin 2.6 L (3.8-4.9) g/dL Albumin/Globulin Ratio 0.87 L (1.60-3.17) g/dL Procalcitonin (0.02-0.09) ng/mL 02/12/22 Range/Units 11:17 RBC (3.80-5.40) m/uL Hgb (11.4-16.0) gm/dL Hct (34.0-46.0) % MCHC (31.0-37.0) g/dL RDW (11.5-15.5) % Lymphocytes # (1.0-4.8) k/uL BUN (9.0-27.0) mg/dL Creatinine (0.6-1.5) mg/dL Est GFR (CKD-EPI)AfAm (60.0-200.0) Est GFR (CKD-EPI)NonAf (60.0-200.0) Glucose (70-110) mg/dL POC Glucose (mg/dL) 159 H (70-110) mg/dL Calcium (8.7-10.3) mg/dL Total Bilirubin (0.30-1.20) mg/dL Total Protein (6.2-8.2) g/dL Albumin (3.8-4.9) g/dL Albumin/Globulin Ratio (1.60-3.17) g/dL Procalcitonin (0.02-0.09) ng/mL Microbiology - Last 24 Hours (Table) 02/06/22 13:00 Blood Culture - Preliminary Blood No Growth after 120 hours Assessment and Plan Assessment: Acute hypoxemic respiratory failure, likely on the basis of either pneumonia, and/or CHF. Alveolar hypoventilation, likely secondary to narcotics. Urinary tract infection with ESBL. Covered on ertapenem Chronic anemia status post- PRBC transfusion History of CVA. History of deep vein thromboses. Prior history of myocardial infarction. S/P gastric bypass, 2016. History of pancreatitis. History of anxiety/depression. History of hypothyroidism. History of diabetes mellitus. Multiple other medical problems and comorbidities. Plan: Patient's medications, labs, x-ray were reviewed. Continue ertapenem for ESBL coverage Continue supplemental oxygen to maintain oxygen saturation 92% or greater Increase his activity as tolerated We will continue to follow I have personally seen and examined the patient, performed the documentation and the assessment and plan as written. Number of minutes spent on the visit: 10.
[2022-02-12 15:01] LABS: Amorphous Sediment,Urine Rare /hpf; Appearance,Urine Cloudy (Clear); Bilirubin,Urine Negative (Negative); Blood,Urine Small (Negative); Color,Urine Light Yellow; Glucose,Urine (UA) 1+ (Negative); Ketones,Urine Negative (Negative); Leukocyte Esterase,Urine Large (Negative); Nitrite,Urine Negative (Negative); Protein,Urine 2+ (Negative); RBC,Urine 8 /hpf (0-5); Specific Gravity,Urine 1.015 (1.001-1.035); Squamous Epithelial Cell,Urine 1 /hpf (0-4); Urobilinogen,Urine <2.0 mg/dL (<2.0); WBC,Urine >182 /hpf (0-5)
--- NOTE | 2022-02-12 15:04 | P.PN ---
Subjective Progress Note Date: 02/12/22 Principal diagnosis: Urinary tract infection Patient is a 36-year-old female with a past medical history significant for cognitive impairment CVA with right-sided weakness and a history of gastric bypass surgery patient was sent to the ER from the [facility] for evaluation of mental status changes, patient did have a positive UA concerning for possible symptomatic urinary tract infection with a previous history of ESBL E. coli. On today's evaluation her that is 02/12/2022, the patient continues to be afebrile, patient is breathing comfortably on 5 L nasal oxygen, the patient denies any chest pain shortness of breath, occasional dry cough no nausea no vomiting no abdominal pain that he has been completing a pain to the left lower extremity Objective - Vital Signs Vital signs: Vital Signs Temp 98.6 F 02/12/22 13:45 Pulse 111 H 02/12/22 13:45 Resp 23 02/12/22 13:45 BP 112/73 02/12/22 13:45 Pulse Ox 93 L 02/12/22 13:45 FiO2 5 02/12/22 12:20 Intake & Output 02/11/22 02/12/22 02/12/22 18:59 06:59 18:59 Intake Total 50 25 Output Total 700 900 150 Balance -650 -900 -125 Intake: Intake, IV Titration 50 Amount Ertapenem 0.5 gm In 50 Sodium Chloride 0.9% 50 ml @ 100 mls/hr IVPB Q24H [facility] Rx#:[id number] Oral 25 Output: Urine 700 900 150 Other: Voiding Method External Catheter External Catheter External Catheter - Exam GENERAL DESCRIPTION: A middle-age female lying in bed in no distress RESPIRATORY SYSTEM: Unlabored breathing , decreased breath sounds at bases HEART: S1 S2 regular rate and rhythm , ABDOMEN: Soft , no tenderness EXTREMITIES: No edema feet - Labs CBC & Chem 7: 02/12/22 05:56 02/12/22 05:56 Labs: Abnormal Lab Results - Last 24 Hours (Table) 02/11/22 02/11/22 02/12/22 Range/Units 17:56 20:14 05:56 RBC (3.80-5.40) m/uL Hgb (11.4-16.0) gm/dL Hct (34.0-46.0) % MCHC (31.0-37.0) g/dL RDW (11.5-15.5) % Lymphocytes # (1.0-4.8) k/uL BUN (9.0-27.0) mg/dL Creatinine (0.6-1.5) mg/dL Est GFR (CKD-EPI)AfAm (60.0-200.0) Est GFR (CKD-EPI)NonAf (60.0-200.0) Glucose (70-110) mg/dL POC Glucose (mg/dL) 176 H 194 H (70-110) mg/dL Calcium (8.7-10.3) mg/dL Total Bilirubin (0.30-1.20) mg/dL Total Protein (6.2-8.2) g/dL Albumin (3.8-4.9) g/dL Albumin/Globulin Ratio (1.60-3.17) g/dL Procalcitonin 0.54 H (0.02-0.09) ng/mL Urine Appearance (Clear) Urine Protein (Negative) Urine Glucose (UA) (Negative) Urine Blood (Negative) Ur Leukocyte Esterase (Negative) Urine RBC (0-5) /hpf Urine WBC (0-5) /hpf Urine WBC Clumps (None) /hpf Amorphous Sediment (None) /hpf 02/12/22 02/12/22 02/12/22 Range/Units 05:56 05:56 06:47 RBC 3.02 L (3.80-5.40) m/uL Hgb 8.3 L (11.4-16.0) gm/dL Hct 28.2 L (34.0-46.0) % MCHC 29.5 L (31.0-37.0) g/dL RDW 16.2 H (11.5-15.5) % Lymphocytes # 0.7 L (1.0-4.8) k/uL BUN 43.3 H (9.0-27.0) mg/dL Creatinine 3.4 H (0.6-1.5) mg/dL Est GFR (CKD-EPI)AfAm 19.1 L (60.0-200.0) Est GFR (CKD-EPI)NonAf 16.5 L (60.0-200.0) Glucose 175 H (70-110) mg/dL POC Glucose (mg/dL) 185 H (70-110) mg/dL Calcium 8.5 L (8.7-10.3) mg/dL Total Bilirubin 0.20 L (0.30-1.20) mg/dL Total Protein 5.6 L (6.2-8.2) g/dL Albumin 2.6 L (3.8-4.9) g/dL Albumin/Globulin Ratio 0.87 L (1.60-3.17) g/dL Procalcitonin (0.02-0.09) ng/mL Urine Appearance (Clear) Urine Protein (Negative) Urine Glucose (UA) (Negative) Urine Blood (Negative) Ur Leukocyte Esterase (Negative) Urine RBC (0-5) /hpf Urine WBC (0-5) /hpf Urine WBC Clumps (None) /hpf Amorphous Sediment (None) /hpf 02/12/22 02/12/22 Range/Units 11:17 14:35 RBC (3.80-5.40) m/uL Hgb (11.4-16.0) gm/dL Hct (34.0-46.0) % MCHC (31.0-37.0) g/dL RDW (11.5-15.5) % Lymphocytes # (1.0-4.8) k/uL BUN (9.0-27.0) mg/dL Creatinine (0.6-1.5) mg/dL Est GFR (CKD-EPI)AfAm (60.0-200.0) Est GFR (CKD-EPI)NonAf (60.0-200.0) Glucose (70-110) mg/dL POC Glucose (mg/dL) 159 H (70-110) mg/dL Calcium (8.7-10.3) mg/dL Total Bilirubin (0.30-1.20) mg/dL Total Protein (6.2-8.2) g/dL Albumin (3.8-4.9) g/dL Albumin/Globulin Ratio (1.60-3.17) g/dL Procalcitonin (0.02-0.09) ng/mL Urine Appearance Cloudy H (Clear) Urine Protein 2+ H (Negative) Urine Glucose (UA) 1+ H (Negative) Urine Blood Small H (Negative) Ur Leukocyte Esterase Large H (Negative) Urine RBC 8 H (0-5) /hpf Urine WBC >182 H (0-5) /hpf Urine WBC Clumps Moderate H (None) /hpf Amorphous Sediment Rare H (None) /hpf Microbiology - Last 24 Hours (Table) 02/06/22 13:00 Blood Culture - Preliminary Blood No Growth after 120 hours Assessment and Plan (1) UTI (urinary tract infection) Current Visit: No Status: Acute Code(s): N39.0 - URINARY TRACT INFECTION, SITE NOT SPECIFIED SNOMED Code(s): 45938306 Plan: 1patient is in the hospital with mental status changes weakness and a fall which is likely multifactorial in this patient who did have a positive UA some urinary symptoms concerning for symptomatic UTI likely from enteric gram- negative pathogen however the patient do have a history of ESBL E. coli infection and will need to cover for ESBL until the cultures are finalized. 2patient did have elevated BUN and creatinine ultrasound didn't show any obstructive uropathy. 3patient urine has been finalized with ESBL E. coli patient repeat UA still positive we will continue with the Invanz may need IV antibiotic on discharge Time with Patient: Less than 30
[2022-02-12] MEDS: ERTAPENEM 0.5 GM in SODIUM CHLORIDE 0.9% 50 ML IVPB SCH (15:34)
[2022-02-12 17:10] LABS: Glucose,Whole Blood 209 mg/dL (70-110)
[2022-02-12 20:12] LABS: Glucose,Whole Blood 241 mg/dL (70-110)
[2022-02-12] MEDS: ATORVASTATIN 20 MG TAB PO SCH (21:30)
[2022-02-12] MEDS: LEVOTHYROXINE 25 MCG TAB PO SCH (21:31)
[2022-02-12] MEDS: clonazePAM 0.5 MG TAB PO SCH (21:31)
[2022-02-12] MEDS: MELATONIN 5 MG TABLET PO PRN (21:31)
[2022-02-12] MEDS: INSULIN DETEMIR (LEVEMIR) 100 UNIT/ML SYR SQ SCH (21:31)
--- NOTE | 2022-02-12 21:45 | P.PN ---
Progress Note - Text Progress Note Date: 02/12/22 Patient is a 36-year-old female with a known history of CVA with right-sided weakness, cognitive impairment, history of gastric bypass surgery, history of DVT on anticoagulation was sent to ER from [facility] due to altered mental status. Patient had a fall from bed at [facility] yesterday and landed on her bilateral knees. Denied any hitting her head. Patient had x-ray and knee CT done in the ER yesterday showed nondisplaced hairline fracture of the distal femur involving the intercondylar distal femur. She was placed on knee immobilizer and was given Toradol and morphine at 1 AM and was sent back to [facility]. Today morning patient was found to be nonresponsive and difficult to arouse. Patient also received baclofen 5 mg at 5 AM and another 5 mg at 1 PM and also 10 mg at 8 PM. Patient was not discharged back on any medications. Patient has been very lethargic and delayed in answering questions appropriately. Otherwise patient did not have any fever. Patient has been on oxygen at 2 L via nasal cannula since her COVID infection. Does have history of ESBL urinary tract infection. Patient does have CKD with baseline creatinine level around 3.0. Laboratory test showed WBC 8.8 hemoglobin 7.9 and platelets 373 ABG showed pH 7.3 PCO2 53 and PO2 104 Sodium 136 potassium 4.5 chloride 103 bicarb is 26 BUN 39 and creatinine 3.47 Blood sugar is 191 Liver enzymes are not elevated. Albumin 2.8 and troponin x1 negative ammonia level is less than 9 Urinalysis showed cloudy with 2+ protein trace glucose nitrite positive and large leukocyte esterase and elevated WBCs. 02/07/2022 Patient is currently lying alert. Awake alert and oriented. Otherwise patient is screaming with pain. Requesting her [place] and baclofen to be restarted. No complaints of nausea or vomiting. Tolerating oral diet. Antibiotics changed to Invanz due to prior history of ESBL urinary tract infection. Patient is also on left lower extremity immobilizer due to HiLINE fracture. Patient has been afebrile. But tachycardic. Pulse ox 93% on 2 L oxygen via nasal cannula. Laboratory data showed WBC 9.3 hemoglobin 8.3 and platelets 351 and blood sugar is 226 ID is on board. February 08 through 02/11/2022 patient covered by [facility]. 02/12/2022: I assumed care of the patient today. [36-year-old patient who is a resident of [facility] - long- term resident. known history of irregular vaginal bleeding - polycystic ovarian syndrome.. multiple DVTs in the past. Following gastric bypass surgery patient had a stroke and myocardial infarction. - resulted in cognitive impairment. poor short-term memory. - bedbound. contracture of the left hand and foot drop on the right leg. history of hyperlipidemia anxiety hypertension hypothyroid diabetes. Patient has a legal guardian Chandrika] Patient on 5 L of nasal cannula which is her baseline. Lethargic but does awaken to answer questions appropriately. Did lose her IV. Midline ordered. Encouraged to take oral fluids. On IV ertapenem. Because of somnolence. Discontinue Daytime baclofen. Resume home dose of Prozac. Also Lyrica that was started in the setting of renal failure were discontinued the same for now Active Medications Acetaminophen (Acetaminophen Tab 325 Mg Tab) 650 mg PO Q6HR PRN PRN Reason: Fever and/ or MILD Pain Last Admin: 02/09/22 16:27 Dose: 650 mg Hydrocodone Bitart/Acetaminophen (Hydrocodone/Apap 7.5-325mg 1 Each Tab) 1 each PO Q6HR PRN PRN Reason: MODERATE TO SEVERE Pain Last Admin: 02/12/22 18:25 Dose: 1 each Atorvastatin Calcium (Atorvastatin 20 Mg Tab) 20 mg PO HS@1999 [facility] Last Admin: 02/11/22 20:55 Dose: 20 mg Baclofen (Baclofen 10 Mg Tab) 5 mg PO BID@0500,1300 [facility] Last Admin: 02/12/22 12:57 Dose: 5 mg Baclofen (Baclofen 10 Mg Tab) 10 mg PO HS@1999 [facility] Last Admin: 02/11/22 20:55 Dose: 10 mg Clonazepam (Clonazepam 0.5 Mg Tab) 0.5 mg PO HS@1999 [facility] Last Admin: 02/11/22 20:55 Dose: 0.5 mg Ertapenem 0.5 gm/ Sodium (Chloride) 50 mls @ 100 mls/hr IVPB Q24H [facility] Last Admin: 02/12/22 15:34 Dose: 100 mls/hr Sodium Chloride (Saline 0.9%) 1,000 mls @ 75 mls/hr IV .[id number] [facility] Last Admin: 02/12/22 12:58 Dose: 75 mls/hr Insulin Aspart (Insulin Aspart (Novolog) 100 Unit/Ml Vial) 0 unit SQ [facility]; Protocol Last Admin: 02/12/22 17:49 Dose: 4 unit Insulin Detemir (Insulin Detemir (Levemir) 100 Unit/Ml Syr) 27 unit SQ HS@1999 [facility] Last Admin: 02/11/22 21:03 Dose: 27 unit Levothyroxine Sodium (Levothyroxine 25 Mcg Tab) 25 mcg PO HS@1999 [facility] Last Admin: 02/11/22 20:55 Dose: 25 mcg Melatonin (Melatonin 5 Mg Tablet) 5 mg PO HS PRN PRN Reason: Insomnia Last Admin: 02/11/22 21:03 Dose: 5 mg Metoprolol Succinate (Metoprolol Succinate (Er) 50 Mg Tab.Er.24h) 50 mg PO DAILY [facility] Last Admin: 02/12/22 09:32 Dose: 50 mg Naloxone HCl (Naloxone 0.4 Mg/Ml 1 Ml Vial) 0.2 mg IV Q2M PRN PRN Reason: Opioid Reversal Pregabalin (Pregabalin 50 Mg Cap) 50 mg PO BID [facility] Last Admin: 02/12/22 08:24 Dose: 50 mg Sodium Bicarbonate (Sodium Bicarbonate Tab 650 Mg Tab) 650 mg PO BID [facility] Last Admin: 02/12/22 08:24 Dose: 650 mg Past medical history to include: Stroke resulting in decreased memory (contracture, following, in 2015 following surgery, DVT, [place], gastric bypass in 2016, anxiety depression, muscle spasms, irregular menstrual bleeding, hypertension, hypothyroid chronic pain in the hands nor back Social history: Patient is a long-term resident of [facility], no smoking. Did smoke marijuana in high school. Pretty much bedbound. Has a legal guardian Chandrika Physical examination: VITAL SIGNS: 98.6, 111, 23, 112/73, 93% on 5 L GENERAL: laying in bed, lethargic but arousable EYES: Pupils equal. Conjunctiva pale. HEENT: External appearance of nose and ears normal, oral cavity grossly normal. NECK: JVD unable to assess masses not palpable. HEART: Heart sounds are muffled; no edema. LUNGS: Respiratory rate normal; distant breath sounds. ABDOMEN: Soft, nontender, liver spleen not palpable, no masses palpable. PSYCH: Able to answer simple questions. Poor recall. NEUROLOGICAL: [Cranial nerves grossly intact; no facial asymmetry, contracture of the left hand. 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 We'll stop daytime dose of baclofen. Also discontinued Lyrica in the setting of chronic kidney disease-this was started last night.. -Acute UTI with cystitis from ESBL IV ertapenem -Chronic hypoxic respiratory failure from obesity ventilation syndrome. Patient is on 5 L oxygen at home. -Chronic medical debility, patient is not ambulatory - obesity BMI 37 -Chronic left hand contracture, right foot drop -Chronic multiple DVTs Outpatient eliquis 5 mg twice a day. -Hyperlipidemia Lipitor 20 mg daily at bedtime -Muscle spasm Baclofen 10 mg daily at bedtime and 5 mg twice a day -Essential hypertension Toprol-XL -Diabetes mellitus type 2, chronic low insulin On Lantus,. Follow Accu-Cheks -Chronic pain in the left hand and lower back. [place] 7.5 every 12 when necessary -Anxiety depression Patient on Klonopin 0.5 mg daily at bedtime Prozac 20 mg daily-outpatient -Bilateral nonobstructing renal calculi,-asymptomatic -Chronic kidney disease stage 4 from obstructive uropathy with a history of left ureteral stent. Follow renal function -Right renal atrophy IV hydration, midline placement. DC daytime dose of baclofen and DC Lyrica. Discussed with the nurse.
[2022-02-13] MEDS: HYDROcodone/APAP 7.5-325MG 1 EACH TAB PO PRN ×4 (00:08→19:25)
[2022-02-13 07:20] LABS: Glucose,Whole Blood 211 mg/dL (70-110)
[2022-02-13] MEDS: INSULIN ASPART (NovoLOG) 100 UNIT/ML VIAL SQ SCH ×3 (08:08→19:19)
[2022-02-13] MEDS: SODIUM BICARBONATE TAB 650 MG TAB PO SCH ×2 (08:09→20:37)
[2022-02-13] MEDS: METOPROLOL SUCCINATE (ER) 50 MG TAB.ER.24H PO SCH (08:09)
[2022-02-13] MEDS: FLUoxetine HCL 20 MG CAP PO SCH (08:09)
--- NOTE | 2022-02-13 08:58 | P.PN ---
Subjective Progress Note Date: 02/13/22 36-year-old female initially seen in the emergency department on February 06, for following, and mental status changes. The patient has a previous history of CVA, right-sided deficits, cognitive delay, gastric bypass, and DVT. The patient [facility] at a local detention, and she has been there since 2016. She apparently fell, and had an x-ray and computed tomography scan done, of her right knee, which showed a nondisplaced hairline fracture of the distal femur involving the intercondylar distal femur. She was placed in a knee immobilizer, given Toradol and morphine. She was then transferred back to the facility. She apparently was found to be poorly responsive by the nurse at the facility, and for that reason was transported back. We are asked to see her, because apparently she developed shortness of breath, and required oxygen therapy, and a higher rate than she normally getting. She's usually getting 2 L at the detention, and currently she is on 6 L high flow oxygen, with excellent saturations. The patient is on saline at 75 mL an hour. She is seen today in room 628. White count 9, hemoglobin 8.1, hematocrit 26.3, and platelet count normal. D- dimer was 3.37. Sodium 137, potassium 4.2, chlorides 111, CO2 19, BUN 36, and creatinine 3.19. Interestingly, her N-terminal proBNP is 4190. Testing for an infection such as influenza, respiratory syncytial virus, and coronavirus, all negative. Arterial blood gases, at the day of admission, show pO2 of 104, pCO2 of 53 and pH of 7.3. In addition, she has gram-negative bacilli in her urine, and is currently on ertapenem. Initial chest x-ray on the , shows cardiomegaly, and low lung volumes, without an acute process. Follow-up chest x-ray shows diffuse bilateral infiltrates, which could be consistent with pneumonia or fluid overload. I'm reevaluating this patient today on 02/09/2022 on a general medical floor. She is currently sitting up in bed, on 4 L nasal cannula, in no acute distress. Patient is telling me that she is less short of breath this morning. Denies any cough, fever, orthopnea, chest pain. Vital signs remain stable, however, patient is slightly tachycardic this morning it 115 bpm. Heart rhythm is regular. Urine sample was positive for ESBL on 02/06/2022. She is covered with ertapenem, and infectious disease is following. Procalcitonin yesterday was elevated at 1.02. CBC from today is stable showing some anemia with a hemoglobin of 7, hematocrit 22.6, WBC count 8.6, platelets 296,000. She did receive a unit of PRBCs on 02/07/2022, and there are no overt signs of bleeding. Chest x-ray from yesterday 02/08/2022 shows worsening diffuse bilateral lung infiltrates. Her BNP from yesterday was 4190. Fluid balance over the last 24 hours is -900 ml. Progress note dated 02/10/2022. The patient is seen today in room 527. The patient appears very stable, from the respiratory standpoint. She's on 4 L of oxygen. She's getting saline at 75 mL an hour. We did order a chest x-ray for the morning. White count 10.2, hemoglobin 6.9, hematocrit 23, and platelet count 291,000. Sodium 139, potassium 4.4, chlorides 110, CO2 24, BUN 40, and creatinine 3.21. Urine was positive for ESBL Escherichia coli. Progress note dated 02/11/2022. The patient is seen again today in room 27. She's currently on 5 L of oxygen. She feels very comfortable. She is on saline at 20 mL an hour. Her only complaint today is that her shins hurt. She's not having any respiratory complaints, including wheezing, cough, phlegm production, or shortness of breath. She continues on ertapenem, ESBL E. coli urinary tract infection. White count 8.3, hemoglobin 8.2, hematocrit 26, and platelet count 337,000. Sodium 139, potassium 4.5, chlorides 109, CO2 24, BUN 41, creatinine 3.18. Ches t x-ray shows improved findings, as it relates to her airspace opacities. I'm reevaluating this patient today on 04/02/2022 on a general medical floor. She appears fairly comfortable resting in bed, on 5 L nasal cannula. denies any significant shortness of breath, cough, chest pain, fevers.most recent chest x- ray from 02/11/2022 showed improved aeration of the lungs with some persistent multifocal airspace opacities. she is tachycardic with a heart rate of 120 bpm, heart rhythm is regular. blood pressures remains stable and has not required any vasopressors or fluid boluses. CBC from today did show some anemia that he see count 8.1, hemoglobin 8.3, hematocrit 28, platelets 321,000. she has received 2 PRBC transfusions this admission, with the most recent transfusion on 02/10/2022. no overt signs of bleeding. she remains on ertapenem for ESBL coverage in the urine. she remains afebrile. she is not receiving any IV fluids. The patient is seen today 02/13/2022 in follow-up on the regular medical floor. She is currently sitting up in bed. Awake and alert in no acute distress. She is maintaining good O2 saturations in the 90s on 5 L/m per nasal cannula. She has normal saline at 75 ML's per hour. She denies any shortness of breath, cough or congestion. No pulmonary complaints. She is still having some ongoing issues with lower extremity discomfort. She remains on ertapenem for ESBL UTI. Blood sugar 211. Objective - Vital Signs Vital signs: Vital Signs Temp 97.4 F L 02/13/22 07:13 Pulse 109 H 02/13/22 08:14 Resp 20 02/13/22 07:13 BP 122/81 02/13/22 08:14 Pulse Ox 93 L 02/13/22 07:13 FiO2 5 02/12/22 12:20 Intake & Output 02/12/22 02/13/22 02/13/22 18:59 06:59 18:59 Intake Total 205 1200 Output Total 325 Balance -120 1200 Intake: Oral 205 1200 Output: Urine 325 Other: Voiding Method External Catheter External Catheter # Voids 1 1 - Exam Alert, pleasant 36-year-old female. No acute distress, oriented 3. No conversational dyspnea or use of accessory muscles. Currently on 5 L of oxygen. HEENT examination is grossly unremarkable. Neck supple. Full range of motion. No adenopathy thyromegaly or neck vein distention. Cardiovascular examination reveals regular rhythm rate. S1-S2 normal. No S3 or S4. No discernible murmur noted. Lungs reveal few scattered bilateral rhonchi. No wheezes. No crackles. Breath sounds are equal bilaterally. . Abdomen soft bowel sounds are heard. No masses or tenderness. Extremities are intact. No cyanosis clubbing or edema. Skin is without rash or lesion. Neurologic examination is brief but nonfocal. - Labs CBC & Chem 7: 02/12/22 05:56 02/12/22 05:56 Labs: Abnormal Lab Results - Last 24 Hours (Table) 02/12/22 02/12/22 02/12/22 Range/Units 05:56 05:56 11:17 BUN 43.3 H (9.0-27.0) mg/dL Creatinine 3.4 H (0.6-1.5) mg/dL Est GFR (CKD-EPI)AfAm 19.1 L (60.0-200.0) Est GFR (CKD-EPI)NonAf 16.5 L (60.0-200.0) Glucose 175 H (70-110) mg/dL POC Glucose (mg/dL) 159 H (70-110) mg/dL Calcium 8.5 L (8.7-10.3) mg/dL Total Bilirubin 0.20 L (0.30-1.20) mg/dL Total Protein 5.6 L (6.2-8.2) g/dL Albumin 2.6 L (3.8-4.9) g/dL Albumin/Globulin Ratio 0.87 L (1.60-3.17) g/dL Procalcitonin 0.54 H (0.02-0.09) ng/mL Urine Appearance (Clear) Urine Protein (Negative) Urine Glucose (UA) (Negative) Urine Blood (Negative) Ur Leukocyte Esterase (Negative) Urine RBC (0-5) /hpf Urine WBC (0-5) /hpf Urine WBC Clumps (None) /hpf Amorphous Sediment (None) /hpf 02/12/22 02/12/22 02/12/22 Range/Units 14:35 17:08 20:10 BUN (9.0-27.0) mg/dL Creatinine (0.6-1.5) mg/dL Est GFR (CKD-EPI)AfAm (60.0-200.0) Est GFR (CKD-EPI)NonAf (60.0-200.0) Glucose (70-110) mg/dL POC Glucose (mg/dL) 209 H 241 H (70-110) mg/dL Calcium (8.7-10.3) mg/dL Total Bilirubin (0.30-1.20) mg/dL Total Protein (6.2-8.2) g/dL Albumin (3.8-4.9) g/dL Albumin/Globulin Ratio (1.60-3.17) g/dL Procalcitonin (0.02-0.09) ng/mL Urine Appearance Cloudy H (Clear) Urine Protein 2+ H (Negative) Urine Glucose (UA) 1+ H (Negative) Urine Blood Small H (Negative) Ur Leukocyte Esterase Large H (Negative) Urine RBC 8 H (0-5) /hpf Urine WBC >182 H (0-5) /hpf Urine WBC Clumps Moderate H (None) /hpf Amorphous Sediment Rare H (None) /hpf 02/13/22 Range/Units 07:18 BUN (9.0-27.0) mg/dL Creatinine (0.6-1.5) mg/dL Est GFR (CKD-EPI)AfAm (60.0-200.0) Est GFR (CKD-EPI)NonAf (60.0-200.0) Glucose (70-110) mg/dL POC Glucose (mg/dL) 211 H (70-110) mg/dL Calcium (8.7-10.3) mg/dL Total Bilirubin (0.30-1.20) mg/dL Total Protein (6.2-8.2) g/dL Albumin (3.8-4.9) g/dL Albumin/Globulin Ratio (1.60-3.17) g/dL Procalcitonin (0.02-0.09) ng/mL Urine Appearance (Clear) Urine Protein (Negative) Urine Glucose (UA) (Negative) Urine Blood (Negative) Ur Leukocyte Esterase (Negative) Urine RBC (0-5) /hpf Urine WBC (0-5) /hpf Urine WBC Clumps (None) /hpf Amorphous Sediment (None) /hpf Microbiology - Last 24 Hours (Table) 02/12/22 14:35 Urine Culture - Preliminary Urine,Voided 02/06/22 13:00 Blood Culture - Final Blood No Growth after 144 hours Assessment and Plan Assessment: Acute hypoxemic respiratory failure, likely on the basis of either pneumonia, and/or CHF. Pro-calcitonin 1.02. ProBNP 4190. Alveolar hypoventilation, likely secondary to narcotics. Urinary tract infection with ESBL. Covered on ertapenem Chronic anemia status post- PRBC transfusion. Most recent hemoglobin 8.3 History of CVA. History of deep vein thromboses. Prior history of myocardial infarction. S/P gastric bypass, 2016. History of pancreatitis. History of anxiety/depression. History of hypothyroidism. History of diabetes mellitus. Multiple other medical problems and comorbidities. Plan: The patient was seen and evaluated Currently stable and on 5 L nasal cannula Titrate the FiO2 as tolerated Cleared for discharge from the pulmonary standpoint I have personally seen and examined the patient, performed the documentation and the assessment and plan as written. Number of minutes spent on the visit: 10.
[2022-02-13 11:23] LABS: Glucose,Whole Blood 191 mg/dL (70-110)
[2022-02-13] MEDS: SODIUM CHLORIDE 0.9% 1,000 ML IV SCH ×2 (12:46→16:59)
[2022-02-13] MEDS: ERTAPENEM 0.5 GM in SODIUM CHLORIDE 0.9% 50 ML IVPB SCH (16:56)
[2022-02-13 17:30] LABS: Glucose,Whole Blood 227 mg/dL (70-110)
--- NOTE | 2022-02-13 18:08 | P.PN ---
Progress Note - Text Progress Note Date: 02/13/22 Patient is a 36-year-old female with a known history of CVA with right-sided weakness, cognitive impairment, history of gastric bypass surgery, history of DVT on anticoagulation was sent to ER from [facility] due to altered mental status. Patient had a fall from bed at [facility] yesterday and landed on her bilateral knees. Denied any hitting her head. Patient had x-ray and knee CT done in the ER yesterday showed nondisplaced hairline fracture of the distal femur involving the intercondylar distal femur. She was placed on knee immobilizer and was given Toradol and morphine at 1 AM and was sent back to [facility]. Today morning patient was found to be nonresponsive and difficult to arouse. Patient also received baclofen 5 mg at 5 AM and another 5 mg at 1 PM and also 10 mg at 8 PM. Patient was not discharged back on any medications. Patient has been very lethargic and delayed in answering questions appropriately. Otherwise patient did not have any fever. Patient has been on oxygen at 2 L via nasal cannula since her COVID infection. Does have history of ESBL urinary tract infection. Patient does have CKD with baseline creatinine level around 3.0. Laboratory test showed WBC 8.8 hemoglobin 7.9 and platelets 373 ABG showed pH 7.3 PCO2 53 and PO2 104 Sodium 136 potassium 4.5 chloride 103 bicarb is 26 BUN 39 and creatinine 3.47 Blood sugar is 191 Liver enzymes are not elevated. Albumin 2.8 and troponin x1 negative ammonia level is less than 9 Urinalysis showed cloudy with 2+ protein trace glucose nitrite positive and large leukocyte esterase and elevated WBCs. 02/07/2022 Patient is currently lying alert. Awake alert and oriented. Otherwise patient is screaming with pain. Requesting her [place] and baclofen to be restarted. No complaints of nausea or vomiting. Tolerating oral diet. Antibiotics changed to Invanz due to prior history of ESBL urinary tract infection. Patient is also on left lower extremity immobilizer due to HiLINE fracture. Patient has been afebrile. But tachycardic. Pulse ox 93% on 2 L oxygen via nasal cannula. Laboratory data showed WBC 9.3 hemoglobin 8.3 and platelets 351 and blood sugar is 226 ID is on board. February 08 through 02/11/2022 patient covered by [facility]. 02/12/2022: I assumed care of the patient today. [36-year-old patient who is a resident of [facility], [facility] - long- term resident. known history of irregular vaginal bleeding - polycystic ovarian syndrome.. multiple DVTs in the past. Following gastric bypass surgery patient had a stroke and myocardial infarction. - resulted in cognitive impairment. poor short-term memory. - bedbound. contracture of the left hand and foot drop on the right leg. history of hyperlipidemia anxiety hypertension hypothyroid diabetes. Patient has a legal guardian Chandrika] Patient on 5 L of nasal cannula which is her baseline. Lethargic but does awaken to answer questions appropriately. Did lose her IV. Midline ordered. Encouraged to take oral fluids. On IV ertapenem. Because of somnolence. Discontinue Daytime baclofen. Resume home dose of Prozac. Also Lyrica that was started in the setting of renal failure were discontinued the same for now 02/13/2022: Patient responded really well to yesterday's medication changes. Fully awake. Able to on a full conversation. Discussed with the patient between pain management and drowsiness. She understands. Patient be going home with 7 days of ertapenem. Oral intake improved Active Medications Acetaminophen (Acetaminophen Tab 325 Mg Tab) 650 mg PO Q6HR PRN PRN Reason: Fever and/ or MILD Pain Last Admin: 02/09/22 16:27 Dose: 650 mg Hydrocodone Bitart/Acetaminophen (Hydrocodone/Apap 7.5-325mg 1 Each Tab) 1 each PO Q6HR PRN PRN Reason: MODERATE TO SEVERE Pain Last Admin: 02/13/22 13:12 Dose: 1 each Atorvastatin Calcium (Atorvastatin 20 Mg Tab) 20 mg PO HS@1999 [facility] Last Admin: 02/12/22 21:30 Dose: 20 mg Baclofen (Baclofen 10 Mg Tab) 10 mg PO HS@1999 [facility] Last Admin: 02/12/22 21:30 Dose: 10 mg Clonazepam (Clonazepam 0.5 Mg Tab) 0.5 mg PO HS@1999 [facility] Last Admin: 02/12/22 21:31 Dose: 0.5 mg Fluoxetine HCl (Fluoxetine Hcl 20 Mg Cap) 20 mg PO DAILY [facility] Last Admin: 02/13/22 08:09 Dose: 20 mg Ertapenem 0.5 gm/ Sodium (Chloride) 50 mls @ 100 mls/hr IVPB Q24H [facility] Last Admin: 02/13/22 16:56 Dose: 100 mls/hr Sodium Chloride (Saline 0.9%) 1,000 mls @ 75 mls/hr IV .[id number] [facility] Last Admin: 02/13/22 16:59 Dose: Not Given Insulin Aspart (Insulin Aspart (Novolog) 100 Unit/Ml Vial) 0 unit SQ ACHS [facility]; Protocol Last Admin: 02/13/22 12:43 Dose: 2 unit Insulin Detemir (Insulin Detemir (Levemir) 100 Unit/Ml Syr) 27 unit SQ HS@1999 [facility] Last Admin: 02/12/22 21:31 Dose: 27 unit Levothyroxine Sodium (Levothyroxine 25 Mcg Tab) 25 mcg PO HS@1999 [facility] Last Admin: 02/12/22 21:31 Dose: 25 mcg Melatonin (Melatonin 5 Mg Tablet) 5 mg PO HS PRN PRN Reason: Insomnia Last Admin: 02/12/22 21:31 Dose: 5 mg Metoprolol Succinate (Metoprolol Succinate (Er) 50 Mg Tab.Er.24h) 50 mg PO DAILY [facility] Last Admin: 02/13/22 08:09 Dose: 50 mg Naloxone HCl (Naloxone 0.4 Mg/Ml 1 Ml Vial) 0.2 mg IV Q2M PRN PRN Reason: Opioid Reversal Sodium Bicarbonate (Sodium Bicarbonate Tab 650 Mg Tab) 650 mg PO BID [facility] Last Admin: 02/13/22 08:09 Dose: 650 mg Past medical history to include: Stroke resulting in decreased memory (contracture, following, in 2015 following surgery, DVT, [place], gastric bypass in 2016, anxiety depression, muscle spasms, irregular menstrual bleeding, hypertension, hypothyroid chronic pain in the hands nor back Social history: Patient is a long-term resident of [facility] on, no smoking. Did smoke marijuana in high school. Pretty much bedbound. Has a legal guardian Chandrika Physical examination: VITAL SIGNS: 97.9, 109, 20, 107/73, 94% on 5 L GENERAL: Propped up in bed, awake, conversing EYES: Pupils equal. Conjunctiva pale. HEENT: External appearance of nose and ears normal, oral cavity grossly normal. NECK: JVD unable to assess masses not palpable. HEART: Heart sounds are muffled; no edema. LUNGS: Respiratory rate normal; distant breath sounds. ABDOMEN: Soft, nontender, liver spleen not palpable, no masses palpable. PSYCH: Answering questions appropriately. NEUROLOGICAL: [Cranial nerves grossly intact; no facial asymmetry, contracture of the left hand. Foot drop right foot Assessment plan: -Altered mental status change-metabolic and toxic neuropathy.mainly drug- induced: Improved Daytime dose of baclofen discontinued. Lyrica that was started in discontinued. -Acute UTI with cystitis from ESBL IV ertapenem for 7 days -Chronic hypoxic respiratory failure from obesity ventilation syndrome. Patient is on 5 L oxygen at home. -Chronic medical debility, patient is not ambulatory - obesity BMI 37 -Chronic left hand contracture, right foot drop -Chronic multiple DVTs Outpatient eliquis 5 mg twice a day. -Hyperlipidemia Lipitor 20 mg daily at bedtime -Muscle spasm Baclofen 10 mg daily at bedtime and 5 mg twice a day -Essential hypertension Toprol-XL -Diabetes mellitus type 2, chronic low insulin On Lantus,. Follow Accu-Cheks -Chronic pain in the left hand and lower back. [place] 7.5 every 12 when necessary -Anxiety depression Patient on Klonopin 0.5 mg daily at bedtime Prozac 20 mg daily-outpatient -Bilateral nonobstructing renal calculi,-asymptomatic -Chronic kidney disease stage 4 from obstructive uropathy with a history of left ureteral stent. Follow renal function -Right renal atrophy Pending PICC line. 7 days of ertapenem on discharge. Discussed with the patient at length. Discussed with ID.
[2022-02-13 20:06] LABS: Glucose,Whole Blood 241 mg/dL (70-110)
[2022-02-13] MEDS: BACLOFEN 10 MG TAB PO SCH (20:37)
[2022-02-13] MEDS: LEVOTHYROXINE 25 MCG TAB PO SCH (20:37)
[2022-02-13] MEDS: ATORVASTATIN 20 MG TAB PO SCH (20:37)
[2022-02-13] MEDS: INSULIN DETEMIR (LEVEMIR) 100 UNIT/ML SYR SQ SCH (20:37)
[2022-02-13] MEDS: clonazePAM 0.5 MG TAB PO SCH (20:37)
[2022-02-13] MEDS: MELATONIN 5 MG TABLET PO PRN (23:11)
[2022-02-14 00:06] LABS: Glucose,Whole Blood 204 mg/dL (70-110)
[2022-02-14] MEDS: INSULIN ASPART (NovoLOG) 100 UNIT/ML VIAL SQ SCH ×5 (00:32→21:15)
[2022-02-14] MEDS: HYDROcodone/APAP 7.5-325MG 1 EACH TAB PO PRN ×3 (00:33→21:04)
[2022-02-14] MEDS: SODIUM CHLORIDE 0.9% 1,000 ML IV SCH (05:23)
[2022-02-14 07:17] LABS: Glucose,Whole Blood 180 mg/dL (70-110)
[2022-02-14] MEDS: METOPROLOL SUCCINATE (ER) 50 MG TAB.ER.24H PO SCH (08:34)
[2022-02-14] MEDS: SODIUM BICARBONATE TAB 650 MG TAB PO SCH ×2 (08:34→21:14)
[2022-02-14] MEDS: FLUoxetine HCL 20 MG CAP PO SCH (08:34)
[2022-02-14] MEDS: ACETAMINOPHEN TAB 325 MG TAB PO PRN (08:37)
[2022-02-14 10:01] LABS: Glucose,Whole Blood 196 mg/dL (70-110)
[2022-02-14 11:05] LABS: African American GFR (CKD) 19 (>60 ml/min/1.73 sqM); Anion Gap 7 mmol/L; Blood Urea Nitrogen 50 mg/dL (7-17); Calcium 8.5 mg/dL (8.4-10.2); Carbon Dioxide 23 mmol/L (22-30); Chloride 113 mmol/L (98-107); Glucose 169 mg/dL (74-99); Non-African American GFR(CKD) 17 (>60 ml/min/1.73 sqM); Potassium 5.5 mmol/L (3.5-5.1); Sodium 143 mmol/L (137-145)
[2022-02-14 11:25] LABS: INR 0.9 (<1.2); Partial Thromboplastin Time 27.1 sec (22.0-30.0); Prothrombin Time 9.8 sec (9.0-12.0)
[2022-02-14 11:39] LABS: Glucose,Whole Blood 177 mg/dL (70-110)
--- NOTE | 2022-02-14 12:01 | XR ---
EXAMINATION TYPE: XR chest 1V portable DATE OF EXAM: 02/14/2022 Comparison: 02/11/2022 Clinical History: 36-year-old female SOB Findings: Low lung volumes. Heart mildly enlarged. Patchy and confluent bilateral airspace opacity, progressed from 02/11/2022. No sizable pleural effusion. Impression: Hypoventilatory changes, cardiomegaly, and worsening diffuse bilateral airspace disease. Correlated a s to etiology including possible pulmonary edema.
[2022-02-14 12:11] LABS: Anisocytosis Slight; Basophils # (A) 0.1 k/uL (0-0.2); Basophils % (A) 1 %; Eosinophils # (A) 0.2 k/uL (0-0.7); Eosinophils % (A) 2 %; HCT 31.3 % (34.0-46.0); HGB 9.3 gm/dL (11.4-16.0); Hypochromasia Marked; Lymphocytes % (A) 9 %; MCH 28.2 pg (25.0-35.0); MCHC 29.6 g/dL (31.0-37.0); MCV 95.1 fL (80.0-100.0); Mean Platelet Volume 8.7; Monocytes # (A) 0.4 k/uL (0-1.0); Monocytes % (A) 4 %; Neutrophils # (A) 8.9 k/uL (1.3-7.7); Neutrophils % (A) 84 %; Platelet Count 373 k/uL (150-450); Poikilocytosis Slight; RDW 16.4 % (11.5-15.5); WBC 10.6 k/uL (3.8-10.6)
[2022-02-14 12:27] LABS: Glucose,Whole Blood 173 mg/dL (70-110)
[2022-02-14 13:00] VITALS: BMI 37.0
--- NOTE | 2022-02-14 13:53 | P.PN ---
Subjective Progress Note Date: 02/14/22 36-year-old female initially seen in the emergency department on February 06, for following, and mental status changes. The patient has a previous history of CVA, right-sided deficits, cognitive delay, gastric bypass, and DVT. The patient resides at a local fdc, and she has been there since 2016. She apparently fell, and had an x-ray and computed tomography scan done, of her right knee, which showed a nondisplaced hairline fracture of the distal femur involving the intercondylar distal femur. She was placed in a knee immobilizer, given Toradol and morphine. She was then transferred back to the facility. She apparently was found to be poorly responsive by the nurse at the facility, and for that reason was transported back. We are asked to see her, because apparently she developed shortness of breath, and required oxygen therapy, and a higher rate than she normally getting. She's usually getting 2 L at the fdc, and currently she is on 6 L high flow oxygen, with excellent saturations. The patient is on saline at 75 mL an hour. She is seen today in room 628. White count 9, hemoglobin 8.1, hematocrit 26.3, and platelet count normal. D- dimer was 3.37. Sodium 137, potassium 4.2, chlorides 111, CO2 19, BUN 36, and creatinine 3.19. Interestingly, her N-terminal proBNP is 4190. Testing for an infection such as influenza, respiratory syncytial virus, and coronavirus, all negative. Arterial blood gases, at the day of admission, show pO2 of 104, pCO2 of 53 and pH of 7.3. In addition, she has gram-negative bacilli in her urine, and is currently on ertapenem. Initial chest x-ray on the , shows cardiomegaly, and low lung volumes, without an acute process. Follow-up chest x-ray shows diffuse bilateral infiltrates, which could be consistent with pneumo sandra or fluid overload. I'm reevaluating this patient today on 02/09/2022 on a general medical floor. She is currently sitting up in bed, on 4 L nasal cannula, in no acute distress. Patient is telling me that she is less short of breath this morning. Denies any cough, fever, orthopnea, chest pain. Vital signs remain stable, however, patient is slightly tachycardic this morning it 115 bpm. Heart rhythm is regular. Urine sample was positive for ESBL on 02/06/2022. She is covered with ertapenem, and infectious disease is following. Procalcitonin yesterday was elevated at 1.02. CBC from today is stable showing some anemia with a hemoglobin of 7, hematocrit 22.6, WBC count 8.6, platelets 296,000. She did receive a unit of PRBCs on 02/07/2022, and there are no overt signs of bleeding. Chest x-ray from yesterday 02/08/2022 shows worsening diffuse bilateral lung infiltrates. Her BNP from yesterday was 4190. Fluid balance over the last 24 hours is -900 ml. Progress note dated 02/10/2022. The patient is seen today in room 527. The patient appears very stable, from the respiratory standpoint. She's on 4 L of oxygen. She's getting saline at 75 mL an hour. We did order a chest x-ray for the morning. White count 10.2, hemoglobin 6.9, hematocrit 23, and platelet count 291,000. Sodium 139, potassium 4.4, chlorides 110, CO2 24, BUN 40, and creatinine 3.21. Urine was positive for ESBL Escherichia coli. Progress note dated 02/11/2022. The patient is seen again today in room 27. She's currently on 5 L of oxygen. She feels very comfortable. She is on saline at 20 mL an hour. Her only complaint today is that her shins hurt. She's not having any respiratory compla ints, including wheezing, cough, phlegm production, or shortness of breath. She continues on ertapenem, ESBL E. coli urinary tract infection. White count 8.3, hemoglobin 8.2, hematocrit 26, and platelet count 337,000. Sodium 139, potassium 4.5, chlorides 109, CO2 24, BUN 41, creatinine 3.18. Chest x-ray shows improved findings, as it relates to her airspace opacities. I'm reevaluating this patient today on 04/02/2022 on a general medical floor. She appears fairly comfortable resting in bed, on 5 L nasal cannula. denies any significant shortness of breath, cough, chest pain, fevers.most recent chest x- ray from 02/11/2022 showed improved aeration of the lungs with some persistent multifocal airspace opacities. she is tachycardic with a heart rate of 120 bpm, heart rhythm is regular. blood pressures remains stable and has not required any vasopressors or fluid boluses. CBC from today did show some anemia that he see count 8.1, hemoglobin 8.3, hematocrit 28, platelets 321,000. she has received 2 PRBC transfusions this admission, with the most recent transfusion on 02/10/2022. no overt signs of bleeding. she remains on ertapenem for ESBL coverage in the urine. she remains afebrile. she is not receiving any IV fluids. The patient is seen today 02/13/2022 in follow-up on the regular medical floor. She is currently sitting up in bed. Awake and alert in no acute distress. She is maintaining good O2 saturations in the 90s on 5 L/m per nasal cannula. She has normal saline at 75 ML's per hour. She denies any shortness of breath, cough or congestion. No pulmonary complaints. She is still having some ongoing issues with lower extremity discomfort. She remains on ertapenem for ESBL UTI. Blood sugar 211. On 02/14/2022, I'm seeing this patient for a follow-up. The patient got A team ed twice a day and ultimately the patient got transferred to the intensive care unit because of hypoxic respiratory failure. Currently she is on 100% nonrebreather facemask and her pulse ox is around 96%. Chest x-ray showing smaller lung volumes and evidence of pulmonary edema and diffuse but the pulmonary infiltrates. Note that this 36-year-old female patient has multiple medical problems and comorbidities. She has been in a fdc since 2017. She apparently had a fall and the CAT scan of the lower extremity was done and it showed a nondisplaced hairline fracture of the distal femur involving the intercondylar distal femur on the left and the patient was given a knee immobilizer. The patient was also given a combination of Toradol and morphine for pain control. She presented to us because of altered mentation. Her proBNP level was elevated at time of admission. The vital screening including influenza, RSV and Covid 19 were all negative. She did have a component of hypercapnic respiratory failure at the time of admission the patient was also diagnosed having a gram-negative UTI which ultimately turned out to be E. coli and this was an ESBL producing organism and the patient was started on IV Invanz. She was on 4 L of O2 by nasal cannula and she decompensated earlier today. The patient's echocardiogram from a recent evaluation showed a preserved LV function and ejection fraction was 50-55%. This is an echocardiogram that was done on 02/09/2022. As far the blood work, the patient's d-dimer is elevated at 5.4 and this could be nonspecific finding and it could be related to infection/sepsis. The BUN is at 50 with a creatinine of 3.3 as the patient has evidence of chronic kidney disease and this is consistent with a component of mild acute on top of chronic kidney failure. WBC count of 10.6 with a hemoglobin of 9.3 and a platelet count of 373. In terms of treatment, the patient is on IV fluids and currently this is running at 75 mL an hour of normal saline. The patient is also on IV Invanz. The patient is on her routine outpa tient medications including oral bicarb. Objective - Vital Signs Vital signs: Vital Signs Temp 98.2 F 02/14/22 12:30 Pulse 110 H 02/14/22 12:45 Resp 24 02/14/22 12:45 BP 113/68 02/14/22 12:45 Pulse Ox 99 02/14/22 12:45 FiO2 50 02/14/22 10:23 Intake & Output 02/13/22 02/14/22 02/14/22 18:59 06:59 18:59 Intake Total 950 Output Total 1000 500 Balance -50 -500 Weight 110.495 kg Intake: Intake, IV Titration 950 Amount Ertapenem 0.5 gm In 50 Sodium Chloride 0.9% 50 ml @ 100 mls/hr IVPB Q24H [facility] Rx#:[id number] Sodium Chloride 0.9% 1, 900 000 ml @ 75 mls/hr IV . [id number] [facility] Rx#:[id number] Output: Urine 1000 500 Other: Voiding Method External Catheter External Catheter External Catheter # Voids 1 - Exam Alert, pleasant 36-year-old female. No acute distress, oriented 1. No conversational dyspnea or use of accessory muscles. Currently on 100 NRB . HEENT examination is grossly unremarkable. Neck supple. Full range of motion. No adenopathy thyromegaly or neck vein distention. Cardiovascular examination reveals regular rhythm rate. S1-S2 normal. No S3 or S4. No discernible murmur noted. Lungs reveal few scattered bilateral rhonchi. No wheezes. No crackles. Breath sounds are equal bilaterally. . Abdomen soft bowel sounds are heard. No masses or tenderness. Extremities are intact. No cyanosis clubbing or edema.the patient has evidence of foot drop bilaterally along with muscle atrophy, increased edema in the left lower extremity is placed in a immobilizer Skin is without rash or lesion. Neurologic examination is brief but nonfocal. - Labs CBC & Chem 7: 02/14/22 10:37 02/14/22 10:37 Labs: Abnormal Lab Results - Last 24 Hours (Table) 02/13/22 02/13/22 02/14/22 Range/Units 17:28 20:05 00:03 RBC (3.80-5.40) m/uL Hgb (11.4-16.0) gm/dL Hct (34.0-46.0) % MCHC (31.0-37.0) g/dL RDW (11.5-15.5) % Neutrophils # (1.3-7.7) k/uL D-Dimer (<0.60) mg/L FEU Potassium (3.5-5.1) mmol/L Chloride (98-107) mmol/L BUN (7-17) mg/dL Creatinine (0.52-1.04) mg/dL Glucose (74-99) mg/dL POC Glucose (mg/dL) 227 H 241 H 204 H (70-110) mg/dL 02/14/22 02/14/22 02/14/22 Range/Units 07:10 09:59 10:37 RBC 3.30 L (3.80-5.40) m/uL Hgb 9.3 L (11.4-16.0) gm/dL Hct 31.3 L (34.0-46.0) % MCHC 29.6 L (31.0-37.0) g/dL RDW 16.4 H (11.5-15.5) % Neutrophils # 8.9 H (1.3-7.7) k/uL D-Dimer (<0.60) mg/L FEU Potassium (3.5-5.1) mmol/L Chloride (98-107) mmol/L BUN (7-17) mg/dL Creatinine (0.52-1.04) mg/dL Glucose (74-99) mg/dL POC Glucose (mg/dL) 180 H 196 H (70-110) mg/dL 02/14/22 02/14/22 02/14/22 Range/Units 10:37 10:37 11:19 RBC (3.80-5.40) m/uL Hgb (11.4-16.0) gm/dL Hct (34.0-46.0) % MCHC (31.0-37.0) g/dL RDW (11.5-15.5) % Neutrophils # (1.3-7.7) k/uL D-Dimer 5.40 H (<0.60) mg/L FEU Potassium 5.5 H (3.5-5.1) mmol/L Chloride 113 H (98-107) mmol/L BUN 50 H (7-17) mg/dL Creatinine 3.35 H (0.52-1.04) mg/dL Glucose 169 H (74-99) mg/dL POC Glucose (mg/dL) 177 H (70-110) mg/dL 02/14/22 Range/Units 12:25 RBC (3.80-5.40) m/uL Hgb (11.4-16.0) gm/dL Hct (34.0-46.0) % MCHC (31.0-37.0) g/dL RDW (11.5-15.5) % Neutrophils # (1.3-7.7) k/uL D-Dimer (<0.60) mg/L FEU Potassium (3.5-5.1) mmol/L Chloride (98-107) mmol/L BUN (7-17) mg/dL Creatinine (0.52-1.04) mg/dL Glucose (74-99) mg/dL POC Glucose (mg/dL) 173 H (70-110) mg/dL Microbiology - Last 24 Hours (Table) 02/12/22 14:35 Urine Culture - Final Urine,Voided Assessment and Plan Plan: Acute hypoxemic respiratory failure, likely on the basis of either pneumonia, and/or CHF. Pro-calcitonin 1.02. ProBNP 4190.the patient had an acute decompensation and the patient is currently on 100% nonrebreather facemask and the patient is showing diffuse bilateral pulmonary infiltrates consistent with pulmonary edema although noncardiogenic causes cannot be completely ruled out including ARDS. Pulmonary embolism cannot be completely ruled out as the patient was taken anticoagulation on outpatient basis and this was stopped . no signs of any GI bleeding at this point in time. Urinary tract infection with ESBL. Covered on ertapenem Chronic anemia status post- PRBC transfusion. Most recent hemoglobin 8.3 History of CVA. History of deep vein thromboses. Prior history of myocardial infarction. S/P gastric bypass, 2016. History of pancreatitis. History of anxiety/depression. History of hypothyroidism. History of diabetes mellitus. Multiple other medical problems and comorbidities. Plan: Start the patient on Lasix 80 mg IV every 12 hours and change IV fluids to KVO Check Doppler of the lower extremity Restart anticoagulation with Eliquis 2.5 mg twice a day Wean down FiO2 as tolerated to maintain a saturation above 90% Obtain a blood gas Full CODE STATUS
[2022-02-14 14:28] LABS: ABG HCO3 25 mmol/L (21-25); ABG Oxygen Saturation 98.4 % (94-97); ABG PCO2 68 mmHg (35-45); ABG PO2 111 mmHg (83-108); ABG TCO2 27 mmol/L (19-24); Allen Test Performed? Yes
[2022-02-14 14:30] LABS: ABG PH 7.17 (7.35-7.45)
[2022-02-14] MEDS: APIXABAN 2.5 MG TABLET PO SCH ×2 (14:34→23:42)
--- NOTE | 2022-02-14 14:44 | P.PN ---
Progress Note - Text Progress Note Date: 02/14/22 Patient is a 36-year-old female with a known history of CVA with right-sided weakness, cognitive impairment, history of gastric bypass surgery, history of DVT on anticoagulation was sent to ER from [facility] due to altered mental status. Patient had a fall from bed at [facility] yesterday and landed on her bilateral knees. Denied any hitting her head. Patient had x-ray and knee CT done in the ER yesterday showed nondisplaced hairline fracture of the distal femur involving the intercondylar distal femur. She was placed on knee immobilizer and was given Toradol and morphine at 1 AM and was sent back to [facility]. Today morning patient was found to be nonresponsive and difficult to arouse. Patient also received baclofen 5 mg at 5 AM and another 5 mg at 1 PM and also 10 mg at 8 PM. Patient was not discharged back on any medications. Patient has been very lethargic and delayed in answering questions appropriately. Otherwise patient did not have any fever. Patient has been on oxygen at 2 L via nasal cannula since her COVID infection. Does have history of ESBL urinary tract infection. Patient does have CKD with baseline creatinine level around 3.0. Laboratory test showed WBC 8.8 hemoglobin 7.9 and platelets 373 ABG showed pH 7.3 PCO2 53 and PO2 104 Sodium 136 potassium 4.5 chloride 103 bicarb is 26 BUN 39 and creatinine 3.47 Blood sugar is 191 Liver enzymes are not elevated. Albumin 2.8 and troponin x1 negative ammonia level is less than 9 Urinalysis showed cloudy with 2+ protein trace glucose nitrite positive and large leukocyte esterase and elevated WBCs. 02/07/2022 Patient is currently lying alert. Awake alert and oriented. Otherwise patient is screaming with pain. Requesting her [place] and baclofen to be restarted. No complaints of nausea or vomiting. Tolerating oral diet. Antibiotics changed to Invanz due to prior history of ESBL urinary tract infection. Patient is also on left lower extremity immobilizer due to HiLINE fracture. Patient has been afebrile. But tachycardic. Pulse ox 93% on 2 L oxygen via nasal cannula. Laboratory data showed WBC 9.3 hemoglobin 8.3 and platelets 351 and blood sugar is 226 ID is on board. February 08 through 02/11/2022 patient covered by [place] [facility] physicians. 02/12/2022: I assumed care of the patient today. [36-year-old patient who is a resident of [facility], [facility] - long- term resident. known history of irregular vaginal bleeding - polycystic ovarian syndrome.. multiple DVTs in the past. Following gastric bypass surgery patient had a stroke and myocardial infarction. - resulted in cognitive impairment. poor short-term memory. - bedbound. contracture of the left hand and foot drop on the right leg. history of hyperlipidemia anxiety hypertension hypothyroid diabetes. Patient has a legal guardian Chandrika] Patient on 5 L of nasal cannula which is her baseline. Lethargic but does awaken to answer questions appropriately. Did lose her IV. Midline ordered. Encouraged to take oral fluids. On IV ertapenem. Because of somnolence. Discontinue Daytime baclofen. Resume home dose of Prozac. Also Lyrica that was started in the setting of renal failure were discontinued the same for now 02/13/2022: Patient responded really well to yesterday's medication changes. Fully awake. Able to on a full conversation. Discussed with the patient between pain management and drowsiness. She understands. Patient be going home with 7 days of ertapenem. Oral intake improved 02/14/2022: This morning patient episode of desaturating palpitations anxiety. Don't eat a breakfast. Patient's pulse ox was 96% made the patient breathing to a bag. Anxiety settled down. Patient was on 6 L of nasal cannula. Late in the afternoon patient again desaturated. Was moved to ICU. Active Medications Acetaminophen (Acetaminophen Tab 325 Mg Tab) 650 mg PO Q6HR PRN PRN Reason: Fever and/ or MILD Pain Last Admin: 02/14/22 08:37 Dose: 650 mg Hydrocodone Bitart/Acetaminophen (Hydrocodone/Apap 7.5-325mg 1 Each Tab) 1 each PO Q6HR PRN PRN Reason: MODERATE TO SEVERE Pain Last Admin: 02/14/22 06:29 Dose: 1 each Apixaban (Apixaban 2.5 Mg Tablet) 2.5 mg PO BID [facility]; Protocol Last Admin: 02/14/22 14:34 Dose: 2.5 mg Atorvastatin Calcium (Atorvastatin 20 Mg Tab) 20 mg PO HS@2000 [facility] Last Admin: 02/13/22 20:37 Dose: 20 mg Baclofen (Baclofen 10 Mg Tab) 10 mg PO HS@1999 [facility] Last Admin: 02/13/22 20:37 Dose: 10 mg Clonazepam (Clonazepam 0.5 Mg Tab) 0.5 mg PO HS@1999 [facility] Last Admin: 02/13/22 20:37 Dose: 0.5 mg Fluoxetine HCl (Fluoxetine Hcl 20 Mg Cap) 20 mg PO DAILY [facility] Last Admin: 02/14/22 08:34 Dose: 20 mg Furosemide (Furosemide 10 Mg/Ml 10 Ml Vial) 80 mg IV Q12HR [facility] Ertapenem 0.5 gm/ Sodium (Chloride) 50 mls @ 100 mls/hr IVPB Q24H [facility] Last Admin: 02/13/22 16:56 Dose: 100 mls/hr Insulin Aspart (Insulin Aspart (Novolog) 100 Unit/Ml Vial) 0 unit SQ [facility]; Protocol Last Admin: 02/14/22 13:54 Dose: 2 unit Insulin Detemir (Insulin Detemir (Levemir) 100 Unit/Ml Syr) 27 unit SQ HS@1999 [facility] Last Admin: 02/13/22 20:37 Dose: 27 unit Levothyroxine Sodium (Levothyroxine 25 Mcg Tab) 25 mcg PO HS@1999 [facility] Last Admin: 02/13/22 20:37 Dose: 25 mcg Melatonin (Melatonin 5 Mg Tablet) 5 mg PO HS PRN PRN Reason: Insomnia Last Admin: 02/13/22 23:11 Dose: 5 mg Metoprolol Succinate (Metoprolol Succinate (Er) 50 Mg Tab.Er.24h) 50 mg PO DAILY [facility] Last Admin: 02/14/22 08:34 Dose: 50 mg Naloxone HCl (Naloxone 0.4 Mg/Ml 1 Ml Vial) 0.2 mg IV Q2M PRN PRN Reason: Opioid Reversal Sodium Bicarbonate (Sodium Bicarbonate Tab 650 Mg Tab) 650 mg PO BID [facility] Last Admin: 02/14/22 08:34 Dose: 650 mg Past medical history to include: Stroke resulting in decreased memory (contracture, following, in 2015 following surgery, DVT, MD, gastric bypass in 2016, anxiety depression, muscle spasms, irregular menstrual bleeding, hypertension, hypothyroid chronic pain in the hands nor back Social history: Patient is a long-term resident of [facility], no smoking. Did smoke marijuana in high school. Pretty much bedbound. Has a legal guardian Chandrika Physical examination: VITAL SIGNS: 98.2, 108, 20, 122/80, 92% on 6 L GENERAL: Propped up in bed, awake, anxious EYES: Pupils equal. Conjunctiva pale. HEENT: External appearance of nose and ears normal, oral cavity grossly normal. NECK: JVD unable to assess masses not palpable. HEART: Heart sounds are muffled; no edema. LUNGS: Respiratory rate increased; distant breath sounds. ABDOMEN: Soft, nontender, liver spleen not palpable, no masses palpable. PSYCH: Answering questions appropriately. NEUROLOGICAL: [Cranial nerves grossly intact; no facial asymmetry, contracture of the left hand. Foot drop right foot Assessment plan: -Altered mental status change-metabolic and toxic neuropathy.mainly drug- induced: Improved Daytime dose of baclofen discontinued. Lyrica that was started in discontinued. -Acute UTI with cystitis from ESBL IV ertapenem for 7 days -Chronic hypoxic respiratory failure from obesity ventilation syndrome. Patient is on 5 L oxygen at home. -Chronic medical debility, patient is not ambulatory - obesity BMI 37 -Chronic left hand contracture, right foot drop -Chronic multiple DVTs Outpatient eliquis 5 mg twice a day. -Hyperlipidemia Lipitor 20 mg daily at bedtime -Muscle spasm Baclofen 10 mg daily at bedtime and 5 mg twice a day -Essential hypertension Toprol-XL -Diabetes mellitus type 2, chronic low insulin On Lantus,. Follow Accu-Cheks -Chronic pain in the left hand and lower back. [place] 7.5 every 12 when necessary -Anxiety depression Patient on Klonopin 0.5 mg daily at bedtime Prozac 20 mg daily-outpatient -Bilateral nonobstructing renal calculi,-asymptomatic -Chronic kidney disease stage 4 from obstructive uropathy with a history of left ureteral stent. Follow renal function -Right renal atrophy Patient had an episode of acute respiratory distress this afternoon. Moved to ICU. Being followed by Dr. Ortiz. Other medications to continue.
[2022-02-14] MEDS: ERTAPENEM 0.5 GM in SODIUM CHLORIDE 0.9% 50 ML IVPB SCH (15:29)
--- NOTE | 2022-02-14 16:06 | US ---
EXAMINATION TYPE: US venous doppler duplex LE BI DATE OF EXAM: 02/14/2022 3:43 PM COMPARISON: 09/30/2020 CLINICAL HISTORY: rule/out DVT. edema SIDE PERFORMED: Bilateral TECHNIQUE: The lower extremity deep venous system is examined utilizing real time linear array sonog caleb with graded compression, doppler sonography and color-flow sonography. VESSELS IMAGED: Common Femoral Vein Deep Femoral Vein Greater Saphenous Vein * Femoral Vein Popliteal Vein Small Saphenous Vein * Proximal Calf Veins (* superficial vessels) Extremely limited exam, similar to prior exams. Patient immobile, large body habitus. Veins small i n caliber and patient unable to tolerate compressions Right Leg: Small veins, making it difficult to exclude chronic thrombosis as on prior exams. Patient unable to tolerate compressions femoral vein mid/distal. Only popliteal vein proximal/mid visualized with color flow Left Leg: Small veins, making it difficult to exclude chronic thrombosis as on prior exams. Patient unable to tolerate compressions femoral vein mid/distal. Unable to evaluate popliteal vein, patient i mmobile and unable to move into adequate position IMPRESSION: 1. Limited examination. 2. No definite acute lower extremity deep venous thrombosis. 3. Vasculature appears small caliber, chronic thrombosis is not entirely excluded.
[2022-02-14] MEDS ORDERED: FUROSEMIDE 10 MG/ML 10 ML VIAL IV STA (16:59)
[2022-02-14] MEDS: DEXMEDETOMIDINE/0.9% NACL(PMX) 400 MCG in EMPTY BAG 1 BAG IV SCH ×2 (17:30→22:46)
[2022-02-14 17:41] LABS: Glucose,Whole Blood 138 mg/dL (70-110)
[2022-02-14] MEDS ORDERED: HALOPERIDOL LACTATE 5 MG/ML 1 ML VIAL ONE (19:17)
[2022-02-14] MEDS ORDERED: HALOPERIDOL LACTATE 5 MG/ML 1 ML VIAL IVP STA (19:36)
[2022-02-14 20:15] LABS: Glucose,Whole Blood 152 mg/dL (70-110)
[2022-02-14] MEDS: INSULIN DETEMIR (LEVEMIR) 100 UNIT/ML SYR SQ SCH (20:54)
[2022-02-14] MEDS: FUROSEMIDE 10 MG/ML 10 ML VIAL IV SCH (20:54)
[2022-02-14] MEDS: BACLOFEN 10 MG TAB PO SCH (20:55)
[2022-02-14] MEDS: clonazePAM 0.5 MG TAB PO SCH (21:13)
[2022-02-14] MEDS: LEVOTHYROXINE 25 MCG TAB PO SCH (21:14)
[2022-02-14] MEDS: MELATONIN 5 MG TABLET PO PRN (21:14)
[2022-02-14] MEDS: ATORVASTATIN 20 MG TAB PO SCH (21:14)
[2022-02-14] MEDS: NOREPINEPHRINE 4 MG in SODIUM CHLORIDE 0.9% 250 ML IV SCH (22:40)
[2022-02-15] MEDS: DEXMEDETOMIDINE/0.9% NACL(PMX) 400 MCG in EMPTY BAG 1 BAG IV SCH ×6 (04:26→22:26)
[2022-02-15 06:19] LABS: Anisocytosis Slight; Basophils % (A) 0 %; Eosinophils # (A) 0.1 k/uL (0-0.7); Eosinophils % (A) 2 %; HCT 26.4 % (34.0-46.0); Hypochromasia Marked; Lymphocytes # (A) 0.9 k/uL (1.0-4.8); Lymphocytes % (A) 13 %; MCH 27.3 pg (25.0-35.0); MCHC 29.6 g/dL (31.0-37.0); MCV 92.4 fL (80.0-100.0); Mean Platelet Volume 8.2; Monocytes # (A) 0.4 k/uL (0-1.0); Monocytes % (A) 5 %; Neutrophils # (A) 5.6 k/uL (1.3-7.7); Neutrophils % (A) 78 %; Platelet Count 310 k/uL (150-450); Poikilocytosis Moderate; RBC 2.86 m/uL (3.80-5.40); RDW 16.5 % (11.5-15.5); WBC 7.2 k/uL (3.8-10.6)
[2022-02-15 06:31] LABS: HGB 7.8 gm/dL (11.4-16.0)
[2022-02-15 07:03] LABS: Calcium 8.3 mg/dL (8.4-10.2); Potassium 4.9 mmol/L (3.5-5.1)
[2022-02-15 07:37] LABS: ABG Base Excess -2.9 mmol/L; ABG HCO3 24 mmol/L (21-25); ABG Oxygen Saturation 97.4 % (94-97); ABG PCO2 51 mmHg (35-45); ABG PH 7.28 (7.35-7.45); ABG PO2 81 mmHg (83-108); ABG TCO2 25 mmol/L (19-24)
--- NOTE | 2022-02-15 07:44 | P.PN ---
Subjective Progress Note Date: 02/15/22 36-year-old female initially seen in the emergency department on February 06, for following, and mental status changes. The patient has a previous history of CVA, right-sided deficits, cognitive delay, gastric bypass, and DVT. The patient resides at a local intermediate, and she has been there since 2016. She apparently fell, and had an x-ray and computed tomography scan done, of her right knee, which showed a nondisplaced hairline fracture of the distal femur involving the intercondylar distal femur. She was placed in a knee immobilizer, given Toradol and morphine. She was then transferred back to the facility. She apparently was found to be poorly responsive by the nurse at the facility, and for that reason was transported back. We are asked to see her, because apparently she developed shortness of breath, and required oxygen therapy, and a higher rate than she normally getting. She's usually getting 2 L at the intermediate, and currently she is on 6 L high flow oxygen, with excellent saturations. The patient is on saline at 75 mL an hour. She is seen today in room 628. White count 9, hemoglobin 8.1, hematocrit 26.3, and platelet count normal. D- dimer was 3.37. Sodium 137, potassium 4.2, chlorides 111, CO2 19, BUN 36, and creatinine 3.19. Interestingly, her N-terminal proBNP is 4190. Testing for an infection such as influenza, respiratory syncytial virus, and coronavirus, all negative. Arterial blood gases, at the day of admission, show pO2 of 104, pCO2 of 53 and pH of 7.3. In addition, she has gram-negative bacilli in her urine, and is currently on ertapenem. Initial chest x-ray on the , shows cardiomegaly, and low lung volumes, without an acute process. Follow-up chest x-ray shows diffuse bilateral infiltrates, which could be consistent with pneumo sandra or fluid overload. I'm reevaluating this patient today on 02/09/2022 on a general medical floor. She is currently sitting up in bed, on 4 L nasal cannula, in no acute distress. Patient is telling me that she is less short of breath this morning. Denies any cough, fever, orthopnea, chest pain. Vital signs remain stable, however, patient is slightly tachycardic this morning it 115 bpm. Heart rhythm is regular. Urine sample was positive for ESBL on 02/06/2022. She is covered with ertapenem, and infectious disease is following. Procalcitonin yesterday was elevated at 1.02. CBC from today is stable showing some anemia with a hemoglobin of 7, hematocrit 22.6, WBC count 8.6, platelets 296,000. She did receive a unit of PRBCs on 02/07/2022, and there are no overt signs of bleeding. Chest x-ray from yesterday 02/08/2022 shows worsening diffuse bilateral lung infiltrates. Her BNP from yesterday was 4190. Fluid balance over the last 24 hours is -900 ml. Progress note dated 02/10/2022. The patient is seen today in room 527. The patient appears very stable, from the respiratory standpoint. She's on 4 L of oxygen. She's getting saline at 75 mL an hour. We did order a chest x-ray for the morning. White count 10.2, hemoglobin 6.9, hematocrit 23, and platelet count 291,000. Sodium 139, potassium 4.4, chlorides 110, CO2 24, BUN 40, and creatinine 3.21. Urine was positive for ESBL Escherichia coli. Progress note dated 02/11/2022. The patient is seen again today in room 27. She's currently on 5 L of oxygen. She feels very comfortable. She is on saline at 20 mL an hour. Her only complaint today is that her shins hurt. She's not having any respiratory compla ints, including wheezing, cough, phlegm production, or shortness of breath. She continues on ertapenem, ESBL E. coli urinary tract infection. White count 8.3, hemoglobin 8.2, hematocrit 26, and platelet count 337,000. Sodium 139, potassium 4.5, chlorides 109, CO2 24, BUN 41, creatinine 3.18. Chest x-ray shows improved findings, as it relates to her airspace opacities. I'm reevaluating this patient today on 04/02/2022 on a general medical floor. She appears fairly comfortable resting in bed, on 5 L nasal cannula. denies any significant shortness of breath, cough, chest pain, fevers.most recent chest x- ray from 02/11/2022 showed improved aeration of the lungs with some persistent multifocal airspace opacities. she is tachycardic with a heart rate of 120 bpm, heart rhythm is regular. blood pressures remains stable and has not required any vasopressors or fluid boluses. CBC from today did show some anemia that he see count 8.1, hemoglobin 8.3, hematocrit 28, platelets 321,000. she has received 2 PRBC transfusions this admission, with the most recent transfusion on 02/10/2022. no overt signs of bleeding. she remains on ertapenem for ESBL coverage in the urine. she remains afebrile. she is not receiving any IV fluids. The patient is seen today 02/13/2022 in follow-up on the regular medical floor. She is currently sitting up in bed. Awake and alert in no acute distress. She is maintaining good O2 saturations in the 90s on 5 L/m per nasal cannula. She has normal saline at 75 ML's per hour. She denies any shortness of breath, cough or congestion. No pulmonary complaints. She is still having some ongoing issues with lower extremity discomfort. She remains on ertapenem for ESBL UTI. Blood sugar 211. On 02/14/2022, I'm seeing this patient for a follow-up. The patient got A team ed twice a day and ultimately the patient got transferred to the intensive care unit because of hypoxic respiratory failure. Currently she is on 100% nonrebreather facemask and her pulse ox is around 96%. Chest x-ray showing smaller lung volumes and evidence of pulmonary edema and diffuse but the pulmonary infiltrates. Note that this 36-year-old female patient has multiple medical problems and comorbidities. She has been in a intermediate since 2017. She apparently had a fall and the CAT scan of the lower extremity was done and it showed a nondisplaced hairline fracture of the distal femur involving the intercondylar distal femur on the left and the patient was given a knee immobilizer. The patient was also given a combination of Toradol and morphine for pain control. She presented to us because of altered mentation. Her proBNP level was elevated at time of admission. The vital screening including influenza, RSV and Covid 19 were all negative. She did have a component of hypercapnic respiratory failure at the time of admission the patient was also diagnosed having a gram-negative UTI which ultimately turned out to be E. coli and this was an ESBL producing organism and the patient was started on IV Invanz. She was on 4 L of O2 by nasal cannula and she decompensated earlier today. The patient's echocardiogram from a recent evaluation showed a preserved LV function and ejection fraction was 50-55%. This is an echocardiogram that was done on 02/09/2022. As far the blood work, the patient's d-dimer is elevated at 5.4 and this could be nonspecific finding and it could be related to infection/sepsis. The BUN is at 50 with a creatinine of 3.3 as the patient has evidence of chronic kidney disease and this is consistent with a component of mild acute on top of chronic kidney failure. WBC count of 10.6 with a hemoglobin of 9.3 and a platelet count of 373. In terms of treatment, the patient is on IV fluids and currently this is running at 75 mL an hour of normal saline. The patient is also on IV Invanz. The patient is on her routine outpa tient medications including oral bicarb. On 02/15/2022, I'm seeing the patient for a follow-up. Patient got transferred to the intensive care unit because of an acute on top of chronic hypoxic/hyper capnic respiratory failure. She was severely acidotic with a pH of 7.1. Her chest x-ray showed evidence of diffuse bilateral pulmonary infiltrates along with smaller lung volumes. At that point, the patient was kept on antibiotics and she was started on diuretics with Lasix 80 mg IV every 12 hours. Rosado catheter was also inserted. She is producing adequate amount of urine output in order of 50-70 mL an hour. Currently she is also on Precedex. Noted the patient was requiring BiPAP and she got very agitated while on BiPAP and she was unable to tolerate. BiPAP was switched to high flow oxygen which is currently running at 60 L with an FiO2 of 55%. As far as her agitation, she was offered Precedex which is running at 0.0 0.7 mcg/kg/m. I also wanted to give her Haldol and she received a total of 2 mg IV push. On today's evaluation, she is calm and comfortable. She is resting comfortably in bed with a pulse ox of 93%. Repeat blood gas from this morning shows improvement in her acid base status. PH is at 7.27 with a pCO2 of 51 and pO2 of 80. There is also interval improvement in her chest x-ray findings some limited improvement in her diffuse bilateral pulmonary infiltrates. She is awake and she is following simple commands. The echoes at 7.2 with a hemoglobin 7.8 and a platelet count of 310. Serum bicarb is at 22 with a sodium level of 143 with a potassium level of 4.9. Cultures are negative except for E. coli in the urine and this was an ESBL producing E. coli and the patient is still on IV Invanz. Still has an immobilizer in the left lower extremity. She was restarted on Eliquis and Doppler of the lower extremities were done yesterday and was inconclusive for an acute DVT. Possibility of chronic ecchymosis cannot be completely excluded in the left lower extremity. The patient was unable to tolerate compression of the femoral vein and unable to evaluate the popliteal vein. Examination of the right eye was also difficult. Objective - Vital Signs Vital signs: Vital Signs Temp 982 F H 02/15/22 04:00 Pulse 71 02/15/22 07:15 Resp 18 02/15/22 07:15 BP 101/52 02/15/22 07:15 Pulse Ox 96 02/15/22 07:37 FiO2 50 02/15/22 07:37 Intake & Output 02/14/22 02/15/22 02/15/22 18:59 06:59 18:59 Intake Total 80.497 903.899 10 Output Total 600 1165 50 Balance -519.503 -261.101 -40 Weight 110.495 kg 120.6 kg Intake: IV 130 10 Sodium Chloride 0.9% 1, 130 10 000 ml @ 75 mls/hr IV . [id number] [facility] Rx#:[id number] Intake, IV Titration 80.497 323.899 Amount Dexmedetomidine/0.9% NaCl 10.497 165.327 (Pmx) 400 mcg In Empty Bag 1 bag @ 0.2 MCG/KG/HR 5.525 mls/hr IV .[id number] [facility] Rx#:[id number] Norepinephrine 4 mg In 158.572 Sodium Chloride 0.9% 250 ml @ 0.03 MCG/KG/MIN 12. 63 mls/hr IV .[id number] [facility] Rx#:[id number] Sodium Chloride 0.9% 1, 70 000 ml @ 75 mls/hr IV . [id number] [facility] Rx#:[id number] Oral 450 Output: Urine 600 1165 50 Other: Voiding Method Indwelling Catheter Indwelling Catheter - Exam Alert, pleasant 36-year-old female. No acute distress, oriented 1. No conversational dyspnea or use of accessory muscles. Currently on Airvo 60, fio2 55% HEENT examination is grossly unremarkable. Neck supple. Full range of motion. No adenopathy thyromegaly or neck vein distention. Cardiovascular examination reveals regular rhythm rate. S1-S2 normal. No S3 or S4. No discernible murmur noted. Lungs reveal few scattered bilateral rhonchi. No wheezes. No crackles. Breath sounds are equal bilaterally. . Abdomen soft bowel sounds are heard. No masses or tenderness. Extremities are intact. No cyanosis clubbing or edema.the patient has evidence of foot drop bilaterally along with muscle atrophy, increased edema in the left lower extremity is placed in a immobilizer Skin is without rash or lesion. Neurologic examination is brief but nonfocal. - Labs CBC & Chem 7: 02/15/22 05:49 02/15/22 05:49 Labs: Abnormal Lab Results - Last 24 Hours (Table) 02/14/22 02/14/22 02/14/22 Range/Units 09:59 10:37 10:37 RBC 3.30 L (3.80-5.40) m/uL Hgb 9.3 L (11.4-16.0) gm/dL Hct 31.3 L (34.0-46.0) % MCHC 29.6 L (31.0-37.0) g/dL RDW 16.4 H (11.5-15.5) % Neutrophils # 8.9 H (1.3-7.7) k/uL Lymphocytes # (1.0-4.8) k/uL D-Dimer (<0.60) mg/L FEU ABG pH (7.35-7.45) ABG pCO2 (35-45) mmHg ABG pO2 (83-108) mmHg ABG Total CO2 (19-24) mmol/L ABG O2 Saturation (94-97) % Potassium 5.5 H (3.5-5.1) mmol/L Chloride 113 H (98-107) mmol/L BUN 50 H (7-17) mg/dL Creatinine 3.35 H (0.52-1.04) mg/dL Glucose 169 H (74-99) mg/dL POC Glucose (mg/dL) 196 H (70-110) mg/dL Calcium (8.4-10.2) mg/dL 02/14/22 02/14/22 02/14/22 Range/Units 10:37 11:19 12:25 RBC (3.80-5.40) m/uL Hgb (11.4-16.0) gm/dL Hct (34.0-46.0) % MCHC (31.0-37.0) g/dL RDW (11.5-15.5) % Neutrophils # (1.3-7.7) k/uL Lymphocytes # (1.0-4.8) k/uL D-Dimer 5.40 H (<0.60) mg/L FEU ABG pH (7.35-7.45) ABG pCO2 (35-45) mmHg ABG pO2 (83-108) mmHg ABG Total CO2 (19-24) mmol/L ABG O2 Saturation (94-97) % Potassium (3.5-5.1) mmol/L Chloride (98-107) mmol/L BUN (7-17) mg/dL Creatinine (0.52-1.04) mg/dL Glucose (74-99) mg/dL POC Glucose (mg/dL) 177 H 173 H (70-110) mg/dL Calcium (8.4-10.2) mg/dL 02/14/22 02/14/22 02/14/22 Range/Units 14:26 17:40 20:13 RBC (3.80-5.40) m/uL Hgb (11.4-16.0) gm/dL Hct (34.0-46.0) % MCHC (31.0-37.0) g/dL RDW (11.5-15.5) % Neutrophils # (1.3-7.7) k/uL Lymphocytes # (1.0-4.8) k/uL D-Dimer (<0.60) mg/L FEU ABG pH 7.17 L* (7.35-7.45) ABG pCO2 68 H (35-45) mmHg ABG pO2 111 H (83-108) mmHg ABG Total CO2 27 H (19-24) mmol/L ABG O2 Saturation 98.4 H (94-97) % Potassium (3.5-5.1) mmol/L Chloride (98-107) mmol/L BUN (7-17) mg/dL Creatinine (0.52-1.04) mg/dL Glucose (74-99) mg/dL POC Glucose (mg/dL) 138 H 152 H (70-110) mg/dL Calcium (8.4-10.2) mg/dL 02/15/22 02/15/22 Range/Units 05:49 05:49 RBC 2.86 L (3.80-5.40) m/uL Hgb 7.8 L D (11.4-16.0) gm/dL Hct 26.4 L (34.0-46.0) % MCHC 29.6 L (31.0-37.0) g/dL RDW 16.5 H (11.5-15.5) % Neutrophils # (1.3-7.7) k/uL Lymphocytes # 0.9 L (1.0-4.8) k/uL D-Dimer (<0.60) mg/L FEU ABG pH (7.35-7.45) ABG pCO2 (35-45) mmHg ABG pO2 (83-108) mmHg ABG Total CO2 (19-24) mmol/L ABG O2 Saturation (94-97) % Potassium (3.5-5.1) mmol/L Chloride 110 H (98-107) mmol/L BUN 54 H (7-17) mg/dL Creatinine 3.51 H (0.52-1.04) mg/dL Glucose 145 H (74-99) mg/dL POC Glucose (mg/dL) (70-110) mg/dL Calcium 8.3 L (8.4-10.2) mg/dL Assessment and Plan Plan: Acute hypoxemic respiratory failure, likely on the basis of either pneumonia, and/or CHF. Pro-calcitonin 1.02. ProBNP 4190.the patient had an acute decompensation and the patient is currently on 100% nonrebreather facemask and the patient is showing diffuse bilateral pulmonary infiltrates consistent with pulmonary edema although noncardiogenic causes cannot be completely ruled out including ARDS. Pulmonary embolism cannot be completely ruled out as the patient was taken anticoagulation on outpatient basis and this was stopped . The patient was initially placed on a BiPAP as the patient was found to have an acute on top of chronic hypoxic and hypercapnic respiratory failure with severe aspirate acidosis. She was unable to tolerate the BiPAP despite putting him on Precedex pH she was switched to Airvo and currently she is at 60 L with an FiO2 of 55. There is interval improvement in the chest x-ray finding in the blood gas from today. No significant agitation. 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 Covered on ertapenem Chronic anemia status post- PRBC transfusion. Most recent hemoglobin 7.8 History of CVA. History of deep vein thromboses. Prior history of myocardial infarction. S/P gastric bypass, 2016. History of pancreatitis. History of anxiety/depression. History of hypothyroidism. History of diabetes mellitus. Multiple other medical problems and comorbidities. Plan: Continue the patient on Lasix 80 mg IV every 12 hours and change IV fluids to K VO Check Doppler of the lower extremity was noted and the patient was restarted back on anticoagulation with Eliquis Keep the Rosado catheter in place Wean down the oxygen flow Wean down Precedex Continue IV Invanz We'll continue to follow. Condition is critical. Code status is full
--- NOTE | 2022-02-15 07:52 | P.PN ---
Subjective Progress Note Date: 02/13/22 Principal diagnosis: Urinary tract infection Patient is a 36-year-old female with a past medical history significant for cognitive impairment CVA with right-sided weakness and a history of gastric bypass surgery patient was sent to the ER from the [facility] for evaluation of mental status changes, patient did have a positive UA concerning for possible symptomatic urinary tract infection with a previous history of ESBL E. coli. On today's evaluation her that is 02/13/2022, the patient remains to be afebrile, patient is breathing comfortably on 5 L nasal oxygen, the patient denies any chest pain or shortness of breath, the patient did have occasional dry cough no nausea no vomiting no abdominal pain that he has been completing a pain to the left lower extremity Objective - Vital Signs Vital signs: Vital Signs Temp 97.4 F L 02/13/22 07:13 Pulse 109 H 02/13/22 08:14 Resp 20 02/13/22 07:13 BP 122/81 02/13/22 08:14 Pulse Ox 93 L 02/13/22 07:13 FiO2 5 02/12/22 12:20 Intake & Output 02/12/22 02/13/22 02/13/22 18:59 06:59 18:59 Intake Total 205 1200 Output Total 325 Balance -120 1200 Intake: Oral 205 1200 Output: Urine 325 Other: Voiding Method External Catheter External Catheter External Catheter # Voids 1 1 - Exam GENERAL DESCRIPTION: A middle-age female lying in bed in no distress RESPIRATORY SYSTEM: Unlabored breathing , decreased breath sounds at bases HEART: S1 S2 regular rate and rhythm , ABDOMEN: Soft , no tenderness EXTREMITIES: No edema feet - Labs CBC & Chem 7: 02/15/22 05:49 02/15/22 05:49 Labs: Abnormal Lab Results - Last 24 Hours (Table) 02/12/22 02/12/22 02/12/22 Range/Units 11:17 14:35 17:08 POC Glucose (mg/dL) 159 H 209 H (70-110) mg/dL Urine Appearance Cloudy H (Clear) Urine Protein 2+ H (Negative) Urine Glucose (UA) 1+ H (Negative) Urine Blood Small H (Negative) Ur Leukocyte Esterase Large H (Negative) Urine RBC 8 H (0-5) /hpf Urine WBC >182 H (0-5) /hpf Urine WBC Clumps Moderate H (None) /hpf Amorphous Sediment Rare H (None) /hpf 02/12/22 02/13/22 Range/Units 20:10 07:18 POC Glucose (mg/dL) 241 H 211 H (70-110) mg/dL Urine Appearance (Clear) Urine Protein (Negative) Urine Glucose (UA) (Negative) Urine Blood (Negative) Ur Leukocyte Esterase (Negative) Urine RBC (0-5) /hpf Urine WBC (0-5) /hpf Urine WBC Clumps (None) /hpf Amorphous Sediment (None) /hpf Microbiology - Last 24 Hours (Table) 02/12/22 14:35 Urine Culture - Preliminary Urine,Voided 02/06/22 13:00 Blood Culture - Final Blood No Growth after 144 hours Assessment and Plan (1) UTI (urinary tract infection) Current Visit: No Status: Acute Code(s): N39.0 - URINARY TRACT INFECTION, SITE NOT SPECIFIED SNOMED Code(s): 99405544 Plan: 1patient is in the hospital with mental status changes weakness and a fall which is likely multifactorial in this patient who did have a positive UA some urinary symptoms concerning for symptomatic UTI likely from enteric gram- negative pathogen however the patient do have a history of ESBL E. coli infection and will need to cover for ESBL until the cultures are finalized. 2patient did have elevated BUN and creatinine ultrasound didn't show any obstructive uropathy. 3patient urine has been finalized with ESBL E. coli patient repeat UA still positive 4-patient to continue with the Invanz 7 days on discharge this was discussed with the admitting physician Time with Patient: Less than 30
--- NOTE | 2022-02-15 07:58 | P.PN ---
Subjective Progress Note Date: 02/14/22 Principal diagnosis: Urinary tract infection Patient is a 36-year-old female with a past medical history significant for cognitive impairment CVA with right-sided weakness and a history of gastric bypass surgery patient was sent to the ER from the [facility] for evaluation of mental status changes, patient did have a positive UA concerning for possible symptomatic urinary tract infection with a previous history of ESBL E. coli. On today's evaluation her that is 02/14/2022, the patient continues to be afebrile, patient did have worsening of respiratory status and is requiring more supplemental oxygen patient however denies any chest pain or shortness of breath occasional cough no nausea no vomiting no abdominal pain that he has been complaining of pain to the left lower extremity and wants more pain medication Objective - Vital Signs Vital signs: Vital Signs Temp 98.2 F 02/14/22 12:30 Pulse 110 H 02/14/22 12:45 Resp 24 02/14/22 12:45 BP 113/68 02/14/22 12:45 Pulse Ox 99 02/14/22 12:45 FiO2 100 02/14/22 14:33 Intake & Output 02/13/22 02/14/22 02/14/22 18:59 06:59 18:59 Intake Total 950 Output Total 1000 500 Balance -50 -500 Weight 110.495 kg Intake: Intake, IV Titration 950 Amount Ertapenem 0.5 gm In 50 Sodium Chloride 0.9% 50 ml @ 100 mls/hr IVPB Q24H [facility] Rx#:[id number] Sodium Chloride 0.9% 1, 900 000 ml @ 75 mls/hr IV . [id number] [facility] Rx#:[id number] Output: Urine 1000 500 Other: Voiding Method External Catheter External Catheter External Catheter # Voids 1 - Exam GENERAL DESCRIPTION: A middle-age female lying in bed in no distress RESPIRATORY SYSTEM: Unlabored breathing , decreased breath sounds at bases HEART: S1 S2 regular rate and rhythm , ABDOMEN: Soft , no tenderness EXTREMITIES: No edema feet - Labs CBC & Chem 7: 02/15/22 05:49 02/15/22 05:49 Labs: Abnormal Lab Results - Last 24 Hours (Table) 02/13/22 02/13/22 02/14/22 Range/Units 17:28 20:05 00:03 RBC (3.80-5.40) m/uL Hgb (11.4-16.0) gm/dL Hct (34.0-46.0) % MCHC (31.0-37.0) g/dL RDW (11.5-15.5) % Neutrophils # (1.3-7.7) k/uL D-Dimer (<0.60) mg/L FEU ABG pH (7.35-7.45) ABG pCO2 (35-45) mmHg ABG pO2 (83-108) mmHg ABG Total CO2 (19-24) mmol/L ABG O2 Saturation (94-97) % Potassium (3.5-5.1) mmol/L Chloride (98-107) mmol/L BUN (7-17) mg/dL Creatinine (0.52-1.04) mg/dL Glucose (74-99) mg/dL POC Glucose (mg/dL) 227 H 241 H 204 H (70-110) mg/dL 02/14/22 02/14/22 02/14/22 Range/Units 07:10 09:59 10:37 RBC 3.30 L (3.80-5.40) m/uL Hgb 9.3 L (11.4-16.0) gm/dL Hct 31.3 L (34.0-46.0) % MCHC 29.6 L (31.0-37.0) g/dL RDW 16.4 H (11.5-15.5) % Neutrophils # 8.9 H (1.3-7.7) k/uL D-Dimer (<0.60) mg/L FEU ABG pH (7.35-7.45) ABG pCO2 (35-45) mmHg ABG pO2 (83-108) mmHg ABG Total CO2 (19-24) mmol/L ABG O2 Saturation (94-97) % Potassium (3.5-5.1) mmol/L Chloride (98-107) mmol/L BUN (7-17) mg/dL Creatinine (0.52-1.04) mg/dL Glucose (74-99) mg/dL POC Glucose (mg/dL) 180 H 196 H (70-110) mg/dL 02/14/22 02/14/22 02/14/22 Range/Units 10:37 10:37 11:19 RBC (3.80-5.40) m/uL Hgb (11.4-16.0) gm/dL Hct (34.0-46.0) % MCHC (31.0-37.0) g/dL RDW (11.5-15.5) % Neutrophils # (1.3-7.7) k/uL D-Dimer 5.40 H (<0.60) mg/L FEU ABG pH (7.35-7.45) ABG pCO2 (35-45) mmHg ABG pO2 (83-108) mmHg ABG Total CO2 (19-24) mmol/L ABG O2 Saturation (94-97) % Potassium 5.5 H (3.5-5.1) mmol/L Chloride 113 H (98-107) mmol/L BUN 50 H (7-17) mg/dL Creatinine 3.35 H (0.52-1.04) mg/dL Glucose 169 H (74-99) mg/dL POC Glucose (mg/dL) 177 H (70-110) mg/dL 02/14/22 02/14/22 Range/Units 12:25 14:26 RBC (3.80-5.40) m/uL Hgb (11.4-16.0) gm/dL Hct (34.0-46.0) % MCHC (31.0-37.0) g/dL RDW (11.5-15.5) % Neutrophils # (1.3-7.7) k/uL D-Dimer (<0.60) mg/L FEU ABG pH 7.17 L* (7.35-7.45) ABG pCO2 68 H (35-45) mmHg ABG pO2 111 H (83-108) mmHg ABG Total CO2 27 H (19-24) mmol/L ABG O2 Saturation 98.4 H (94-97) % Potassium (3.5-5.1) mmol/L Chloride (98-107) mmol/L BUN (7-17) mg/dL Creatinine (0.52-1.04) mg/dL Glucose (74-99) mg/dL POC Glucose (mg/dL) 173 H (70-110) mg/dL Microbiology - Last 24 Hours (Table) 02/12/22 14:35 Urine Culture - Final Urine,Voided Assessment and Plan (1) UTI (urinary tract infection) Current Visit: No Status: Acute Code(s): N39.0 - URINARY TRACT INFECTION, SITE NOT SPECIFIED SNOMED Code(s): 60065230 Plan: 1patient is in the hospital with mental status changes weakness and a fall which is likely multifactorial in this patient who did have a positive UA some urinary symptoms concerning for symptomatic UTI likely from enteric gram-neg ative pathogen however the patient do have a history of ESBL E. coli infection and will need to cover for ESBL until the cultures are finalized. 2patient did have elevated BUN and creatinine ultrasound didn't show any obstructive uropathy. 3patient urine has been finalized with ESBL E. coli patient repeat UA still positive , patient is currently covered with a Invanz and will be continued 4-patient with worsening of respiratory status questionable fluid related, clinically not behaving as pneumonia this patient significant cough, no fever no white count and procalcitonin was 052 on 02/12/2022, pulmonary service is following the patient closely Time with Patient: Less than 30
[2022-02-15] MEDS: NOREPINEPHRINE 4 MG in SODIUM CHLORIDE 0.9% 250 ML IV SCH (08:00)
[2022-02-15 08:07] LABS: Glucose,Whole Blood 157 mg/dL (70-110)
[2022-02-15] MEDS: METOPROLOL SUCCINATE (ER) 50 MG TAB.ER.24H PO SCH (08:58)
[2022-02-15] MEDS: FLUoxetine HCL 20 MG CAP PO SCH (08:58)
[2022-02-15] MEDS: APIXABAN 2.5 MG TABLET PO SCH ×2 (08:58→20:47)
[2022-02-15] MEDS: SODIUM BICARBONATE TAB 650 MG TAB PO SCH ×2 (08:59→20:47)
[2022-02-15] MEDS: HYDROcodone/APAP 7.5-325MG 1 EACH TAB PO PRN ×3 (08:59→20:46)
[2022-02-15] MEDS: INSULIN ASPART (NovoLOG) 100 UNIT/ML VIAL SQ SCH ×4 (08:59→20:47)
[2022-02-15] MEDS: FUROSEMIDE 10 MG/ML 10 ML VIAL IV SCH ×2 (09:00→20:52)
--- NOTE | 2022-02-15 09:32 | XR ---
EXAMINATION TYPE: XR chest 1V portable DATE OF EXAM: 02/15/2022 COMPARISON: 02/14/2022 HISTORY: Shortness of breath TECHNIQUE: Single frontal view of the chest is obtained. FINDINGS: Reduced inspiration with cardiomegaly but no pneumothorax. Tiny pleural effusion suggested . Surgical clips in the abdomen there remains diffuse interstitial mixed alveolar pattern bilaterally . IMPRESSION: 1. Diffuse bilateral airspace disease. Differential diagnosis would include diffuse pneumonia or pulm onary edema.
[2022-02-15] MEDS: HALOPERIDOL LACTATE 5 MG/ML 1 ML VIAL IVP PRN (10:00)
[2022-02-15 11:24] LABS: Glucose,Whole Blood 178 mg/dL (70-110)
--- NOTE | 2022-02-15 14:15 | P.PN ---
Progress Note - Text Progress Note Date: 02/15/22 Patient is a 36-year-old female with a known history of CVA with right-sided weakness, cognitive impairment, history of gastric bypass surgery, history of DVT on anticoagulation was sent to ER from [facility] due to altered mental status. Patient had a fall from bed at [facility] yesterday and landed on her bilateral knees. Denied any hitting her head. Patient had x-ray and knee CT done in the ER yesterday showed nondisplaced hairline fracture of the distal femur involving the intercondylar distal femur. She was placed on knee immobilizer and was given Toradol and morphine at 1 AM and was sent back to [facility]. Today morning patient was found to be nonresponsive and difficult to arouse. Patient also received baclofen 5 mg at 5 AM and another 5 mg at 1 PM and also 10 mg at 8 PM. Patient was not discharged back on any medications. Patient has been very lethargic and delayed in answering questions appropriately. Otherwise patient did not have any fever. Patient has been on oxygen at 2 L via nasal cannula since her COVID infection. Does have history of ESBL urinary tract infection. Patient does have CKD with baseline creatinine level around 3.0. Laboratory test showed WBC 8.8 hemoglobin 7.9 and platelets 373 ABG showed pH 7.3 PCO2 53 and PO2 104 Sodium 136 potassium 4.5 chloride 103 bicarb is 26 BUN 39 and creatinine 3.47 Blood sugar is 191 Liver enzymes are not elevated. Albumin 2.8 and troponin x1 negative ammonia level is less than 9 Urinalysis showed cloudy with 2+ protein trace glucose nitrite positive and large leukocyte esterase and elevated WBCs. 02/07/2022 Patient is currently lying alert. Awake alert and oriented. Otherwise patient is screaming with pain. Requesting her Shields and baclofen to be restarted. No complaints of nausea or vomiting. Tolerating oral diet. Antibiotics changed to Invanz due to prior history of ESBL urinary tract infection. Patient is also on left lower extremity immobilizer due to HiLINE fracture. Patient has been afebrile. But tachycardic. Pulse ox 93% on 2 L oxygen via nasal cannula. Laboratory data showed WBC 9.3 hemoglobin 8.3 and platelets 351 and blood sugar is 226 ID is on board. February 08 through 02/11/2022 patient covered by [facility]. 02/12/2022: I assumed care of the patient today. [36-year-old patient who is a resident of [facility], [facility] - long- term resident. known history of irregular vaginal bleeding - polycystic ovarian syndrome.. multiple DVTs in the past. Following gastric bypass surgery patient had a stroke and myocardial infarction. - resulted in cognitive impairment. poor short-term memory. - bedbound. contracture of the left hand and foot drop on the right leg. history of hyperlipidemia anxiety hypertension hypothyroid diabetes. Patient has a legal guardian Chandrika] Patient on 5 L of nasal cannula which is her baseline. Lethargic but does awaken to answer questions appropriately. Did lose her IV. Midline ordered. Encouraged to take oral fluids. On IV ertapenem. Because of somnolence. Discontinue Daytime baclofen. Resume home dose of Prozac. Also Lyrica that was started in the setting of renal failure were discontinued the same for now 02/13/2022: Patient responded really well to yesterday's medication changes. Fully awake. Able to on a full conversation. Discussed with the patient between pain management and drowsiness. She understands. Patient be going home with 7 days of ertapenem. Oral intake improved 02/14/2022: This morning patient episode of desaturating palpitations anxiety. Don't eat a breakfast. Patient's pulse ox was 96% made the patient breathing to a bag. Anxiety settled down. Patient was on 6 L of nasal cannula. Late in the afternoon patient again desaturated. Was moved to ICU. 02/15/2022: ICU: Patient currently on AIRVO. 45/50. Short of breath. [place] to have CHF versus infiltrate. On IV Lasix. IV Norepinephrine and IV Precedex. Also on IV ertapenem. Active Medications Acetaminophen (Acetaminophen Tab 325 Mg Tab) 650 mg PO Q6HR PRN PRN Reason: Fever and/ or MILD Pain Last Admin: 02/14/22 08:37 Dose: 650 mg Hydrocodone Bitart/Acetaminophen (Hydrocodone/Apap 7.5-325mg 1 Each Tab) 1 each PO Q6HR PRN PRN Reason: MODERATE TO SEVERE Pain Last Admin: 02/15/22 08:59 Dose: 1 each Apixaban (Apixaban 2.5 Mg Tablet) 2.5 mg PO BID [facility]; Protocol Last Admin: 02/15/22 08:58 Dose: 2.5 mg Atorvastatin Calcium (Atorvastatin 20 Mg Tab) 20 mg PO HS@1999 [facility] Last Admin: 02/14/22 21:14 Dose: 20 mg Baclofen (Baclofen 10 Mg Tab) 10 mg PO HS@1999 [facility] Last Admin: 02/14/22 20:55 Dose: 10 mg Clonazepam (Clonazepam 0.5 Mg Tab) 0.5 mg PO HS@1999 [facility] Last Admin: 02/14/22 21:13 Dose: 0.5 mg Fluoxetine HCl (Fluoxetine Hcl 20 Mg Cap) 20 mg PO DAILY [facility] Last Admin: 02/15/22 08:58 Dose: 20 mg Furosemide (Furosemide 10 Mg/Ml 10 Ml Vial) 80 mg IV Q12HR [facility] Last Admin: 02/15/22 09:00 Dose: 80 mg Haloperidol Lactate (Haloperidol Lactate 5 Mg/Ml 1 Ml Vial) 1 mg IVP Q8HR PRN PRN Reason: Agitation or Acute Psychosis Last Admin: 02/15/22 10:00 Dose: 1 mg Ertapenem 0.5 gm/ Sodium (Chloride) 50 mls @ 100 mls/hr IVPB Q24H [facility] Last Admin: 02/14/22 15:29 Dose: 100 mls/hr Dexmedetomidine HCl 400 mcg/ (IV Solution) 100 mls @ 5.525 mls/hr IV .Q18H6M [facility]; Protocol Last Admin: 02/15/22 13:53 Dose: 1 mcg/kg/hr, 27.624 mls/hr Norepinephrine Bitartrate 4 mg (/ Sodium Chloride) 254 mls @ 12.63 mls/hr IV .Q20H7M [facility]; Protocol Last Titration: 02/15/22 12:00 Dose: 0 mcg/kg/min, 0 mls/hr Insulin Aspart (Insulin Aspart (Novolog) 100 Unit/Ml Vial) 0 unit SQ [facility]; Protocol Last Admin: 02/15/22 12:00 Dose: 2 unit Insulin Detemir (Insulin Detemir (Levemir) 100 Unit/Ml Syr) 27 unit SQ @1999 [facility] Last Admin: 02/14/22 20:54 Dose: 27 unit Levothyroxine Sodium (Levothyroxine 25 Mcg Tab) 25 mcg PO HS@1999 [facility] Last Admin: 02/14/22 21:14 Dose: 25 mcg Melatonin (Melatonin 5 Mg Tablet) 5 mg PO HS PRN PRN Reason: Insomnia Last Admin: 02/14/22 21:14 Dose: 5 mg Metoprolol Succinate (Metoprolol Succinate (Er) 50 Mg Tab.Er.24h) 50 mg PO DAILY [facility] Last Admin: 02/15/22 08:58 Dose: 50 mg Naloxone HCl (Naloxone 0.4 Mg/Ml 1 Ml Vial) 0.2 mg IV Q2M PRN PRN Reason: Opioid Reversal Sodium Bicarbonate (Sodium Bicarbonate Tab 650 Mg Tab) 650 mg PO BID [facility] Last Admin: 02/15/22 08:59 Dose: 650 mg Past medical history to include: Stroke resulting in decreased memory (contracture, following, in 2015 following surgery, DVT, [place], gastric bypass in 2016, anxiety depression, muscle spasms, irregular menstrual bleeding, hypertension, hypothyroid chronic pain in the hands nor back Social history: Patient is a long-term resident of [facility], no smoking. Did smoke marijuana in high school. Pretty much bedbound. Has a legal guardian Chandrika Physical examination: VITAL SIGNS: 98.3, 78, 19, 108/47, 91% on AIRVO GENERAL: Propped up in bed, awake, anxious EYES: Pupils equal. Conjunctiva pale. HEENT: External appearance of nose and ears normal, oral cavity grossly normal. NECK: JVD unable to assess masses not palpable. HEART: Heart sounds are muffled; no edema. LUNGS: Respiratory rate increased; distant breath sounds. ABDOMEN: Soft, nontender, liver spleen not palpable, no masses palpable. PSYCH: Answering questions appropriately. NEUROLOGICAL: [Cranial nerves grossly intact; no facial asymmetry, contracture of the left hand. Foot drop right foot INVESTIGATIONS, reviewed in the clinical context: Chest x-ray film personally reviewed by me-venous prominence 02/15/2022: White count 7.2 hemoglobin 7.8 platelets 310. Potassium 4.9 BUN 54 creatinine 3.51 Venous Doppler: Negative for DVT Assessment plan: -Acute hypoxic respiratory failure from pulmonary edema versus pneumonia Currently on AIRVO 45/50 -Probable pneumonia Continue antibiotic -Altered mental status change-metabolic and toxic neuropathy.mainly drug- induced: Improved Daytime dose of baclofen discontinued. Lyrica that was started in the hospital discontinued. -Acute UTI with cystitis from ESBL IV ertapenem for 7 days -Chronic hypoxic respiratory failure from obesity ventilation syndrome. Patient is on 5 L oxygen at home. -Chronic medical debility, patient is not ambulatory - obesity BMI 37 -Chronic left hand contracture, right foot drop -Chronic multiple DVTs Outpatient eliquis 5 mg twice a day. -Hyperlipidemia Lipitor 20 mg daily at bedtime -Muscle spasm Baclofen 10 mg daily at bedtime and 5 mg twice a day -Essential hypertension Toprol-XL -Diabetes mellitus type 2, chronic low insulin On Lantus,. Follow Accu-Cheks -Chronic pain in the left hand and lower back. Shields 7.5 every 12 when necessary -Anxiety depression Patient on Klonopin 0.5 mg daily at bedtime Prozac 20 mg daily-outpatient -Bilateral nonobstructing renal calculi,-asymptomatic -Chronic kidney disease stage 4 from obstructive uropathy with a history of left ureteral stent. Follow renal function -Right renal atrophy ICU. AIRVO. IV ertapenem. IV levo fed. IV Lasix. Follow labs closely. Procalcitonin.
--- NOTE | 2022-02-15 15:13 | P.PN ---
Subjective Progress Note Date: 02/15/22 Principal diagnosis: Urinary tract infection Patient is a 36-year-old female with a past medical history significant for cognitive impairment CVA with right-sided weakness and a history of gastric bypass surgery patient was sent to the ER from the [facility] for evaluation of mental status changes, patient did have a positive UA concerning for possible symptomatic urinary tract infection with a previous history of ESBL E. coli. On today's evaluation her that is 02/15/2022, the patient denies any fever or chills, patient did have worsening of respiratory status and is requiring more supplemental oxygen for the patient has been transferred to the ICU patient was not able to tolerate BiPAP currently on high flow nasal cannula oxygen patient denies having any chest pain or any worsening cough no nausea no vomiting no abdominal pain or diarrhea Objective - Vital Signs Vital signs: Vital Signs Temp 98.0 F 02/15/22 08:00 Pulse 76 02/15/22 10:15 Resp 22 02/15/22 10:15 BP 109/57 02/15/22 10:15 Pulse Ox 91 L 02/15/22 10:15 FiO2 50 02/15/22 10:36 Intake & Output 02/14/22 02/15/22 02/15/22 18:59 06:59 18:59 Intake Total 80.497 903.899 447.083 Output Total 600 1165 750 Balance -519.503 -261.101 -302.917 Weight 110.495 kg 120.6 kg Intake: IV 130 60 Invasive Line 5 10 Sodium Chloride 0.9% 1, 130 50 000 ml @ 75 mls/hr IV . [id number] [facility] Rx#:[id number] Intake, IV Titration 80.497 323.899 147.083 Amount Dexmedetomidine/0.9% NaCl 10.497 165.327 121.823 (Pmx) 400 mcg In Empty Bag 1 bag @ 0.2 MCG/KG/HR 5.525 mls/hr IV .Q18H6M [facility] Rx#:[id number] Norepinephrine 4 mg In 158.572 25.26 Sodium Chloride 0.9% 250 ml @ 0.03 MCG/KG/MIN 12. 63 mls/hr IV .Q20H7M [facility] Rx#:[id number] Sodium Chloride 0.9% 1, 70 000 ml @ 75 mls/hr IV . [id number] [facility] Rx#:[id number] Oral 450 240 Output: Urine 600 1165 750 Other: Voiding Method Indwelling Catheter Indwelling Catheter Indwelling Catheter - Exam GENERAL DESCRIPTION: A middle-age female lying in bed in no distress RESPIRATORY SYSTEM: Unlabored breathing , decreased breath sounds at bases HEART: S1 S2 regular rate and rhythm , ABDOMEN: Soft , no tenderness EXTREMITIES: No edema feet - Labs CBC & Chem 7: 02/15/22 05:49 02/15/22 05:49 Labs: Abnormal Lab Results - Last 24 Hours (Table) 02/14/22 02/14/22 02/14/22 Range/Units 14:26 17:40 20:13 RBC (3.80-5.40) m/uL Hgb (11.4-16.0) gm/dL Hct (34.0-46.0) % MCHC (31.0-37.0) g/dL RDW (11.5-15.5) % Lymphocytes # (1.0-4.8) k/uL ABG pH 7.17 L* (7.35-7.45) ABG pCO2 68 H (35-45) mmHg ABG pO2 111 H (83-108) mmHg ABG Total CO2 27 H (19-24) mmol/L ABG O2 Saturation 98.4 H (94-97) % Chloride (98-107) mmol/L BUN (7-17) mg/dL Creatinine (0.52-1.04) mg/dL Glucose (74-99) mg/dL POC Glucose (mg/dL) 138 H 152 H (70-110) mg/dL Calcium (8.4-10.2) mg/dL 02/15/22 02/15/22 02/15/22 Range/Units 05:49 05:49 07:33 RBC 2.86 L (3.80-5.40) m/uL Hgb 7.8 L D (11.4-16.0) gm/dL Hct 26.4 L (34.0-46.0) % MCHC 29.6 L (31.0-37.0) g/dL RDW 16.5 H (11.5-15.5) % Lymphocytes # 0.9 L (1.0-4.8) k/uL ABG pH 7.28 L (7.35-7.45) ABG pCO2 51 H (35-45) mmHg ABG pO2 81 L (83-108) mmHg ABG Total CO2 25 H (19-24) mmol/L ABG O2 Saturation 97.4 H (94-97) % Chloride 110 H (98-107) mmol/L BUN 54 H (7-17) mg/dL Creatinine 3.51 H (0.52-1.04) mg/dL Glucose 145 H (74-99) mg/dL POC Glucose (mg/dL) (70-110) mg/dL Calcium 8.3 L (8.4-10.2) mg/dL 02/15/22 02/15/22 Range/Units 08:05 11:22 RBC (3.80-5.40) m/uL Hgb (11.4-16.0) gm/dL Hct (34.0-46.0) % MCHC (31.0-37.0) g/dL RDW (11.5-15.5) % Lymphocytes # (1.0-4.8) k/uL ABG pH (7.35-7.45) ABG pCO2 (35-45) mmHg ABG pO2 (83-108) mmHg ABG Total CO2 (19-24) mmol/L ABG O2 Saturation (94-97) % Chloride (98-107) mmol/L BUN (7-17) mg/dL Creatinine (0.52-1.04) mg/dL Glucose (74-99) mg/dL POC Glucose (mg/dL) 157 H 178 H (70-110) mg/dL Calcium (8.4-10.2) mg/dL Assessment and Plan (1) UTI (urinary tract infection) Current Visit: No Status: Acute Code(s): N39.0 - URINARY TRACT INFECTION, SITE NOT SPECIFIED SNOMED Code(s): 67902731 Plan: 1patient is in the hospital with mental status changes weakness and a fall which is likely multifactorial in this patient who did have a positive UA some urinary symptoms concerning for symptomatic UTI likely from enteric gram- negative pathogen however the patient do have a history of ESBL E. coli infec tion and will need to cover for ESBL until the cultures are finalized. 2patient did have elevated BUN and creatinine ultrasound didn't show any obstructive uropathy. 3patient urine has been finalized with ESBL E. coli patient repeat UA still positive , patient is currently covered with a Invanz and will be continued and monitor clinical course closely 4-patient with worsening of respiratory status questionable fluid related, patient is closely being monitored by pulmonary services we will repeat her inflammatory markers with a.m. lab Time with Patient: Less than 30
[2022-02-15] MEDS: ERTAPENEM 0.5 GM in SODIUM CHLORIDE 0.9% 50 ML IVPB SCH (15:49)
[2022-02-15 16:49] LABS: Glucose,Whole Blood 204 mg/dL (70-110)
[2022-02-15] MEDS: LEVOTHYROXINE 25 MCG TAB PO SCH (19:54)
[2022-02-15] MEDS: BACLOFEN 10 MG TAB PO SCH (19:54)
[2022-02-15] MEDS: ATORVASTATIN 20 MG TAB PO SCH (19:54)
[2022-02-15] MEDS: clonazePAM 0.5 MG TAB PO SCH (19:55)
[2022-02-15] MEDS: INSULIN DETEMIR (LEVEMIR) 100 UNIT/ML SYR SQ SCH (19:59)
[2022-02-15 20:44] LABS: Glucose,Whole Blood 190 mg/dL (70-110)
[2022-02-15] MEDS: MELATONIN 5 MG TABLET PO PRN (20:47)
[2022-02-15] MEDS: ACETAMINOPHEN TAB 325 MG TAB PO PRN (22:25)
[2022-02-16] MEDS: HALOPERIDOL LACTATE 5 MG/ML 1 ML VIAL IVP PRN ×2 (01:22→08:53)
[2022-02-16] MEDS: DEXMEDETOMIDINE/0.9% NACL(PMX) 400 MCG in EMPTY BAG 1 BAG IV SCH ×5 (01:38→21:47)
[2022-02-16] MEDS: HYDROcodone/APAP 7.5-325MG 1 EACH TAB PO PRN ×3 (02:19→17:16)
[2022-02-16 06:26] LABS: Glucose,Whole Blood 164 mg/dL (70-110)
[2022-02-16] MEDS: INSULIN ASPART (NovoLOG) 100 UNIT/ML VIAL SQ SCH ×4 (07:07→19:55)
[2022-02-16 07:15] LABS: Calcium 7.7 mg/dL (8.4-10.2); Potassium 4.3 mmol/L (3.5-5.1)
[2022-02-16 07:20] LABS: Anisocytosis Slight; Basophils % (A) 0 %; Eosinophils # (A) 0.2 k/uL (0-0.7); Eosinophils % (A) 3 %; HCT 22.8 % (34.0-46.0); Hypochromasia Marked; Lymphocytes % (A) 17 %; MCH 27.4 pg (25.0-35.0); MCV 91.4 fL (80.0-100.0); Mean Platelet Volume 8.4; Monocytes # (A) 0.4 k/uL (0-1.0); Monocytes % (A) 6 %; Neutrophils # (A) 4.5 k/uL (1.3-7.7); Neutrophils % (A) 73 %; Platelet Count 272 k/uL (150-450); Poikilocytosis Moderate; RDW 16.7 % (11.5-15.5); WBC 6.2 k/uL (3.8-10.6)
[2022-02-16 07:34] LABS: HGB 6.8 gm/dL (11.4-16.0)
--- NOTE | 2022-02-16 08:21 | P.PN ---
Subjective Progress Note Date: 02/16/22 36-year-old female initially seen in the emergency department on February 06, for following, and mental status changes. The patient has a previous history of CVA, right-sided deficits, cognitive delay, gastric bypass, and DVT. The patient resides at a local senior care, and she has been there since 2016. She apparently fell, and had an x-ray and computed tomography scan done, of her right knee, which showed a nondisplaced hairline fracture of the distal femur involving the intercondylar distal femur. She was placed in a knee immobilizer, given Toradol and morphine. She was then transferred back to the facility. She apparently was found to be poorly responsive by the nurse at the facility, and for that reason was transported back. We are asked to see her, because apparently she developed shortness of breath, and required oxygen therapy, and a higher rate than she normally getting. She's usually getting 2 L at the senior care, and currently she is on 6 L high flow oxygen, with excellent saturations. The patient is on saline at 75 mL an hour. She is seen today in room 628. White count 9, hemoglobin 8.1, hematocrit 26.3, and platelet count normal. D- dimer was 3.37. Sodium 137, potassium 4.2, chlorides 111, CO2 19, BUN 36, and creatinine 3.19. Interestingly, her N-terminal proBNP is 4190. Testing for an infection such as influenza, respiratory syncytial virus, and coronavirus, all negative. Arterial blood gases, at the day of admission, show pO2 of 104, pCO2 of 53 and pH of 7.3. In addition, she has gram-negative bacilli in her urine, and is currently on ertapenem. Initial chest x-ray on the , shows cardiomegaly, and low lung volumes, without an acute process. Follow-up chest x-ray shows diffuse bilateral infiltrates, which could be consistent with pneumo sandra or fluid overload. I'm reevaluating this patient today on 02/09/2022 on a general medical floor. She is currently sitting up in bed, on 4 L nasal cannula, in no acute distress. Patient is telling me that she is less short of breath this morning. Denies any cough, fever, orthopnea, chest pain. Vital signs remain stable, however, patient is slightly tachycardic this morning it 115 bpm. Heart rhythm is regular. Urine sample was positive for ESBL on 02/06/2022. She is covered with ertapenem, and infectious disease is following. Procalcitonin yesterday was elevated at 1.02. CBC from today is stable showing some anemia with a hemoglobin of 7, hematocrit 22.6, WBC count 8.6, platelets 296,000. She did receive a unit of PRBCs on 02/07/2022, and there are no overt signs of bleeding. Chest x-ray from yesterday 02/08/2022 shows worsening diffuse bilateral lung infiltrates. Her BNP from yesterday was 4190. Fluid balance over the last 24 hours is -900 ml. Progress note dated 02/10/2022. The patient is seen today in room 527. The patient appears very stable, from the respiratory standpoint. She's on 4 L of oxygen. She's getting saline at 75 mL an hour. We did order a chest x-ray for the morning. White count 10.2, hemoglobin 6.9, hematocrit 23, and platelet count 291,000. Sodium 139, potassium 4.4, chlorides 110, CO2 24, BUN 40, and creatinine 3.21. Urine was positive for ESBL Escherichia coli. Progress note dated 02/11/2022. The patient is seen again today in room 27. She's currently on 5 L of oxygen. She feels very comfortable. She is on saline at 20 mL an hour. Her only complaint today is that her shins hurt. She's not having any respiratory compla ints, including wheezing, cough, phlegm production, or shortness of breath. She continues on ertapenem, ESBL E. coli urinary tract infection. White count 8.3, hemoglobin 8.2, hematocrit 26, and platelet count 337,000. Sodium 139, potassium 4.5, chlorides 109, CO2 24, BUN 41, creatinine 3.18. Chest x-ray shows improved findings, as it relates to her airspace opacities. I'm reevaluating this patient today on 04/02/2022 on a general medical floor. She appears fairly comfortable resting in bed, on 5 L nasal cannula. denies any significant shortness of breath, cough, chest pain, fevers.most recent chest x- ray from 02/11/2022 showed improved aeration of the lungs with some persistent multifocal airspace opacities. she is tachycardic with a heart rate of 120 bpm, heart rhythm is regular. blood pressures remains stable and has not required any vasopressors or fluid boluses. CBC from today did show some anemia that he see count 8.1, hemoglobin 8.3, hematocrit 28, platelets 321,000. she has received 2 PRBC transfusions this admission, with the most recent transfusion on 02/10/2022. no overt signs of bleeding. she remains on ertapenem for ESBL coverage in the urine. she remains afebrile. she is not receiving any IV fluids. The patient is seen today 02/13/2022 in follow-up on the regular medical floor. She is currently sitting up in bed. Awake and alert in no acute distress. She is maintaining good O2 saturations in the 90s on 5 L/m per nasal cannula. She has normal saline at 75 ML's per hour. She denies any shortness of breath, cough or congestion. No pulmonary complaints. She is still having some ongoing issues with lower extremity discomfort. She remains on ertapenem for ESBL UTI. Blood sugar 211. On 02/14/2022, I'm seeing this patient for a follow-up. The patient got A team ed twice a day and ultimately the patient got transferred to the intensive care unit because of hypoxic respiratory failure. Currently she is on 100% nonrebreather facemask and her pulse ox is around 96%. Chest x-ray showing smaller lung volumes and evidence of pulmonary edema and diffuse but the pulmonary infiltrates. Note that this 36-year-old female patient has multiple medical problems and comorbidities. She has been in a senior care since 2017. She apparently had a fall and the CAT scan of the lower extremity was done and it showed a nondisplaced hairline fracture of the distal femur involving the intercondylar distal femur on the left and the patient was given a knee immobilizer. The patient was also given a combination of Toradol and morphine for pain control. She presented to us because of altered mentation. Her proBNP level was elevated at time of admission. The vital screening including influenza, RSV and Covid 19 were all negative. She did have a component of hypercapnic respiratory failure at the time of admission the patient was also diagnosed having a gram-negative UTI which ultimately turned out to be E. coli and this was an ESBL producing organism and the patient was started on IV Invanz. She was on 4 L of O2 by nasal cannula and she decompensated earlier today. The patient's echocardiogram from a recent evaluation showed a preserved LV function and ejection fraction was 50-55%. This is an echocardiogram that was done on 02/09/2022. As far the blood work, the patient's d-dimer is elevated at 5.4 and this could be nonspecific finding and it could be related to infection/sepsis. The BUN is at 50 with a creatinine of 3.3 as the patient has evidence of chronic kidney disease and this is consistent with a component of mild acute on top of chronic kidney failure. WBC count of 10.6 with a hemoglobin of 9.3 and a platelet count of 373. In terms of treatment, the patient is on IV fluids and currently this is running at 75 mL an hour of normal saline. The patient is also on IV Invanz. The patient is on her routine outpa tient medications including oral bicarb. On 02/15/2022, I'm seeing the patient for a follow-up. Patient got transferred to the intensive care unit because of an acute on top of chronic hypoxic/hyper capnic respiratory failure. She was severely acidotic with a pH of 7.1. Her chest x-ray showed evidence of diffuse bilateral pulmonary infiltrates along with smaller lung volumes. At that point, the patient was kept on antibiotics and she was started on diuretics with Lasix 80 mg IV every 12 hours. Rosado catheter was also inserted. She is producing adequate amount of urine output in order of 50-70 mL an hour. Currently she is also on Precedex. Noted the patient was requiring BiPAP and she got very agitated while on BiPAP and she was unable to tolerate. BiPAP was switched to high flow oxygen which is currently running at 60 L with an FiO2 of 55%. As far as her agitation, she was offered Precedex which is running at 0.0 0.7 mcg/kg/m. I also wanted to give her Haldol and she received a total of 2 mg IV push. On today's evaluation, she is calm and comfortable. She is resting comfortably in bed with a pulse ox of 93%. Repeat blood gas from this morning shows improvement in her acid base status. PH is at 7.27 with a pCO2 of 51 and pO2 of 80. There is also interval improvement in her chest x-ray findings some limited improvement in her diffuse bilateral pulmonary infiltrates. She is awake and she is following simple commands. The echoes at 7.2 with a hemoglobin 7.8 and a platelet count of 310. Serum bicarb is at 22 with a sodium level of 143 with a potassium level of 4.9. Cultures are negative except for E. coli in the urine and this was an ESBL producing E. coli and the patient is still on IV Invanz. Still has an immobilizer in the left lower extremity. She was restarted on Eliquis and Doppler of the lower extremities were done yesterday and was inconclusive for an acute DVT. Possibility of chronic ecchymosis cannot be completely excluded in the left lower extremity. The patient was unable to tolerate compression of the femoral vein and unable to evaluate the popliteal vein. Examination of the right eye was also difficult. 02/16/2022, the patient remains in the intensive care unit. This morning, she is, comfortable in following commands and answering questions. She remains on high flow oxygen. This morning, she is on a flow of 40 L with an FiO2 of 50%. Her current pulse ox is around 93%. She is diuresing adequately with Lasix and she is receiving 80 mg of IV Lasix every 12 hours. Her fluids balance is negative in the order of 1.5 L. Meanwhile, the patient's creatinine remained stable. Today's creatinine is at 3.4 with a BUN of 60 and a sodium level is at 138. Rosado catheter is in place and the patient is producing adequate amount of urine output. At the same time, there was a concern for lower extremity clots, DVTs, chronic DVTs, and the patient was restarted back on anticoagulation with Eliquis and she is receiving Eliquis at a dose of 2.5 mg by mouth twice a day. Nevertheless, there has been ongoing drop in hemoglobin. We have not witnessed any GI bleed. Hemoglobin is been fluctuating and her hemoglobin was as high as 9.3 on 02/14/2022 and this morning is down to 6.8. We have not witnessed any signs of GI bleeding. At the same time, the patient remains on IV Invanz regarding an ESBL producing E. coli urinary tract infection. She remains on Precedex which is running at 0.8 mcg/kg/m. Note that the patient has had previous issues with iron deficiency and she was being given oral iron and aranesp on outpatient basis. Objective - Vital Signs Vital signs: Vital Signs Temp 97.8 F 02/16/22 04:00 Pulse 64 02/16/22 06:30 Resp 21 02/16/22 05:00 BP 106/68 02/16/22 07:00 Pulse Ox 94 L 02/16/22 07:00 FiO2 52 02/16/22 02:48 Intake & Output 02/15/22 02/16/22 02/16/22 18:59 06:59 18:59 Intake Total 1813.654 506.959 Output Total 1899 2049 Balance -86.346 -1543.041 Weight 121 kg Intake: IV 150 160 .9 10 60 130 Invasive Line 5 10 Invasive Line 6 20 30 Sodium Chloride 0.9% 1, 60 000 ml @ 75 mls/hr IV . [id number] [facility]ILDER Rx#:[id number] Intake, IV Titration 343.654 346.959 Amount Dexmedetomidine/0.9% NaCl 284.714 346.959 (Pmx) 400 mcg In Empty Bag 1 bag @ 0.2 MCG/KG/HR 5.525 mls/hr IV .[id number] [facility]IL[facility] Rx#:[id number] Norepinephrine 4 mg In 58.94 Sodium Chloride 0.9% 250 ml @ 0.03 MCG/KG/MIN 12. 63 mls/hr IV .[id number] [facility] Rx#:[id number] Oral 1320 Output: Urine 1899 2049 Other: Voiding Method Indwelling Catheter Indwelling Catheter - Exam Alert, pleasant 36-year-old female. No acute distress, oriented 1. No conversational dyspnea or use of accessory muscles. Currently on Airvo 40, fio2 50% HEENT examination is grossly unremarkable. Neck supple. Full range of motion. No adenopathy thyromegaly or neck vein distention. Cardiovascular examination reveals regular rhythm rate. S1-S2 normal. No S3 or S4. No discernible murmur noted. Lungs reveal few scattered bilateral rhonchi. No wheezes. No crackles. Breath sounds are equal bilaterally. . Abdomen soft bowel sounds are heard. No masses or tenderness. Extremities are intact. No cyanosis clubbing or edema.the patient has evidence of foot drop bilaterally along with muscle atrophy, increased edema in the left lower extremity is placed in a immobilizer Skin is without rash or lesion. Neurologic examination is brief but nonfocal. - Labs CBC & Chem 7: 02/16/22 06:35 02/16/22 06:35 Labs: Abnormal Lab Results - Last 24 Hours (Table) 02/15/22 02/15/22 02/15/22 Range/Units 08:05 11:22 16:47 RBC (3.80-5.40) m/uL Hgb (11.4-16.0) gm/dL Hct (34.0-46.0) % MCHC (31.0-37.0) g/dL RDW (11.5-15.5) % BUN (7-17) mg/dL Creatinine (0.52-1.04) mg/dL Glucose (74-99) mg/dL POC Glucose (mg/dL) 157 H 178 H 204 H (70-110) mg/dL Calcium (8.4-10.2) mg/dL 02/15/22 02/16/22 02/16/22 Range/Units 20:42 06:24 06:35 RBC 2.50 L (3.80-5.40) m/uL Hgb 6.8 L* (11.4-16.0) gm/dL Hct 22.8 L (34.0-46.0) % MCHC 30.0 L (31.0-37.0) g/dL RDW 16.7 H (11.5-15.5) % BUN (7-17) mg/dL Creatinine (0.52-1.04) mg/dL Glucose (74-99) mg/dL POC Glucose (mg/dL) 190 H 164 H (70-110) mg/dL Calcium (8.4-10.2) mg/dL 02/16/22 Range/Units 06:35 RBC (3.80-5.40) m/uL Hgb (11.4-16.0) gm/dL Hct (34.0-46.0) % MCHC (31.0-37.0) g/dL RDW (11.5-15.5) % BUN 60 H (7-17) mg/dL Creatinine 3.40 H (0.52-1.04) mg/dL Glucose 144 H (74-99) mg/dL POC Glucose (mg/dL) (70-110) mg/dL Calcium 7.7 L (8.4-10.2) mg/dL Assessment and Plan Plan: Acute hypoxemic respiratory failure, likely on the basis of either pneumonia, and/or CHF. Pro-calcitonin 1.02. ProBNP 4190.the patient had an acute decompensation and the patient is currently on 100% nonrebreather facemask and the patient is showing diffuse bilateral pulmonary infiltrates consistent with pulmonary edema although noncardiogenic causes cannot be completely ruled out including ARDS. Pulmonary embolism cannot be completely ruled out as the patient was taken anticoagulation on outpatient basis and this was stopped . The patient is currently off the BiPAP and the patient is on high flow oxygen which is being gradually weaned off and currently she is on 40 L with an FiO2 of 50%. She is responding nicely to diuretics. She was also restarted back on Eliquis. 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 Covered on ertapenem Chronic anemia status post- PRBC transfusion. Most recent hemoglobin 6.8 History of CVA. History of deep vein thromboses. Prior history of myocardial infarction. S/P gastric bypass, 2016. History of pancreatitis. History of anxiety/depression. History of hypothyroidism. History of diabetes mellitus. Multiple other medical problems and comorbidities. Acute on chronic anemia/iron deficiency Plan: Continue the patient on Lasix 80 mg IV every 12 hours IV fluids to KVO CONTINUE anticoagulation with Eliquis Keep the Rosado catheter in place Wean down the oxygen flow Wean down Precedex Continue IV Invanz IV iron/Venofer 110 mg 3 doses Monitor hemoglobin and repeat another level at around noontime and meanwhile continue anticoagulation. We'll transfuse if needed Restart Klonopin 0.5 mg twice a day and restart her CHLORimipramine at usual doses , and obtain a psychiatric evaluation/consultation for any further adjustments of her medication. The goal is to wean off the Precedex as the patient is still having some occasional anger outbursts. We'll continue to follow. Condition is critical. Code status is full
[2022-02-16] MEDS: FLUoxetine HCL 20 MG CAP PO SCH (08:52)
[2022-02-16] MEDS: SODIUM BICARBONATE TAB 650 MG TAB PO SCH ×2 (08:52→19:38)
[2022-02-16] MEDS: APIXABAN 2.5 MG TABLET PO SCH ×2 (08:53→19:38)
[2022-02-16] MEDS: FUROSEMIDE 10 MG/ML 10 ML VIAL IV SCH ×2 (08:53→19:39)
[2022-02-16] MEDS ORDERED: clonazePAM 0.5 MG TAB PO SCH (09:00)
[2022-02-16] MEDS ORDERED: IRON DEXTRAN 100 MG/2 ML VIAL IV SCH (09:00)
[2022-02-16] MEDS: METOPROLOL SUCCINATE (ER) 50 MG TAB.ER.24H PO SCH (09:03)
[2022-02-16] MEDS: SODIUM FERRIC GLUCONAT-SUCROSE 125 MG in SODIUM CHLORIDE 0.9% 100 ML IVPB SCH (10:00)
[2022-02-16] MEDS: NOREPINEPHRINE 4 MG in SODIUM CHLORIDE 0.9% 250 ML IV SCH (10:41)
[2022-02-16 11:48] LABS: Glucose,Whole Blood 158 mg/dL (70-110)
[2022-02-16 12:17] LABS: Anisocytosis Slight; HCT 24.6 % (34.0-46.0); HGB 7.6 gm/dL (11.4-16.0); Hypochromasia Marked; MCHC 30.9 g/dL (31.0-37.0); MCV 90.5 fL (80.0-100.0); Mean Platelet Volume 8.4; Platelet Count 318 k/uL (150-450); Poikilocytosis Moderate; RBC 2.72 m/uL (3.80-5.40); RDW 16.9 % (11.5-15.5); WBC 7.4 k/uL (3.8-10.6)
[2022-02-16] MEDS ORDERED: HYDROmorphone 1 MG/ML 1 ML SYRINGE IVP STA (13:21)
[2022-02-16] MEDS: BACLOFEN 10 MG TAB PO SCH (13:28)
[2022-02-16 16:47] LABS: Glucose,Whole Blood 178 mg/dL (70-110)
[2022-02-16] MEDS: ERTAPENEM 0.5 GM in SODIUM CHLORIDE 0.9% 50 ML IVPB SCH (17:00)
[2022-02-16] MEDS ORDERED: LACTULOSE 20 GM/30 ML CUP PO ONE (17:00)
--- NOTE | 2022-02-16 17:15 | P.PN ---
Progress Note - Text Progress Note Date: 02/16/22 Patient is a 36-year-old female with a known history of CVA with right-sided weakness, cognitive impairment, history of gastric bypass surgery, history of DVT on anticoagulation was sent to ER from [facility] due to altered mental status. Patient had a fall from bed at [facility] yesterday and landed on her bilateral knees. Denied any hitting her head. Patient had x-ray and knee CT done in the ER yesterday showed nondisplaced hairline fracture of the distal femur involving the intercondylar distal femur. She was placed on knee immobilizer and was given Toradol and morphine at 1 AM and was sent back to [facility]. Today morning patient was found to be nonresponsive and difficult to arouse. Patient also received baclofen 5 mg at 5 AM and another 5 mg at 1 PM and also 10 mg at 8 PM. Patient was not discharged back on any medications. Patient has been very lethargic and delayed in answering questions appropriately. Otherwise patient did not have any fever. Patient has been on oxygen at 2 L via nasal cannula since her COVID infection. Does have history of ESBL urinary tract infection. Patient does have CKD with baseline creatinine level around 3.0. Laboratory test showed WBC 8.8 hemoglobin 7.9 and platelets 373 ABG showed pH 7.3 PCO2 53 and PO2 104 Sodium 136 potassium 4.5 chloride 103 bicarb is 26 BUN 39 and creatinine 3.47 Blood sugar is 191 Liver enzymes are not elevated. Albumin 2.8 and troponin x1 negative ammonia level is less than 9 Urinalysis showed cloudy with 2+ protein trace glucose nitrite positive and large leukocyte esterase and elevated WBCs. 02/07/2022 Patient is currently lying alert. Awake alert and oriented. Otherwise patient is screaming with pain. Requesting her [place] and baclofen to be restarted. No complaints of nausea or vomiting. Tolerating oral diet. Antibiotics changed to Invanz due to prior history of ESBL urinary tract infection. Patient is also on left lower extremity immobilizer due to HiLINE fracture. Patient has been afebrile. But tachycardic. Pulse ox 93% on 2 L oxygen via nasal cannula. Laboratory data showed WBC 9.3 hemoglobin 8.3 and platelets 351 and blood sugar is 226 ID is on board. February 08 through 02/11/2022 patient covered by [facility]. 02/12/2022: I assumed care of the patient today. [36-year-old patient who is a resident of [facility], [facility] - long- term resident. known history of irregular vaginal bleeding - polycystic ovarian syndrome.. multiple DVTs in the past. Following gastric bypass surgery patient had a stroke and myocardial infarction. - resulted in cognitive impairment. poor short-term memory. - bedbound. contracture of the left hand and foot drop on the right leg. history of hyperlipidemia anxiety hypertension hypothyroid diabetes. Patient has a legal guardian Chandrika] Patient on 5 L of nasal cannula which is her baseline. Lethargic but does awaken to answer questions appropriately. Did lose her IV. Midline ordered. Encouraged to take oral fluids. On IV ertapenem. Because of somnolence. Discontinue Daytime baclofen. Resume home dose of Prozac. Also Lyrica that was started in the setting of renal failure were discontinued the same for now 02/13/2022: Patient responded really well to yesterday's medication changes. Fully awake. Able to on a full conversation. Discussed with the patient between pain management and drowsiness. She understands. Patient be going home with 7 days of ertapenem. Oral intake improved 02/14/2022: This morning patient episode of desaturating palpitations anxiety. Don't eat a breakfast. Patient's pulse ox was 96% made the patient breathing to a bag. Anxiety settled down. Patient was on 6 L of nasal cannula. Late in the afternoon patient again desaturated. Was moved to ICU. 02/15/2022: ICU: Patient currently on AIRVO. 45/50. Short of breath. [place] to have CHF versus infiltrate. On IV Lasix. IV Norepinephrine and IV Precedex. Also on IV ertapenem. 02/16/2022: ICU. Remains on AIRVO. 40 L and 45%. Given lactulose. Because of episodes of agitation being put on Precedex. Does sit up in a chair for 2-1/2 hours. Psych was consulted. Remains on IV ertapenem and IV Lasix. Breathing a bit better. Active Medications Acetaminophen (Acetaminophen Tab 325 Mg Tab) 650 mg PO Q6HR PRN PRN Reason: Fever and/ or MILD Pain Last Admin: 02/15/22 22:25 Dose: 650 mg Hydrocodone Bitart/Acetaminophen (Hydrocodone/Apap 7.5-325mg 1 Each Tab) 1 each PO Q6HR PRN PRN Reason: MODERATE TO SEVERE Pain Last Admin: 02/16/22 08:53 Dose: 1 each Apixaban (Apixaban 2.5 Mg Tablet) 2.5 mg PO BID [facility]; Protocol Last Admin: 02/16/22 08:53 Dose: 2.5 mg Atorvastatin Calcium (Atorvastatin 20 Mg Tab) 20 mg PO HS@1999 [facility] Last Admin: 02/15/22 19:54 Dose: 20 mg Baclofen (Baclofen 10 Mg Tab) 10 mg PO HS@1999 [facility] Last Admin: 02/16/22 13:28 Dose: 10 mg Clomipramine HCl (Clomipramine 50 Mg Cap) 50 mg PO [facility] Last Admin: 02/16/22 09:03 Dose: 50 mg Clonazepam (Clonazepam 0.5 Mg Tab) 0.5 mg PO BID [facility] Last Admin: 02/16/22 08:52 Dose: 0.5 mg Fluoxetine HCl (Fluoxetine Hcl 20 Mg Cap) 20 mg PO DAILY [facility] Last Admin: 02/16/22 08:52 Dose: 20 mg Furosemide (Furosemide 10 Mg/Ml 10 Ml Vial) 80 mg IV Q12HR [facility] Last Admin: 02/16/22 08:53 Dose: 80 mg Haloperidol Lactate (Haloperidol Lactate 5 Mg/Ml 1 Ml Vial) 1 mg IVP Q8HR PRN PRN Reason: Agitation or Acute Psychosis Last Admin: 02/16/22 08:53 Dose: 1 mg Ertapenem 0.5 gm/ Sodium (Chloride) 50 mls @ 100 mls/hr IVPB Q24H [facility] Last Admin: 02/15/22 15:49 Dose: 100 mls/hr Dexmedetomidine HCl 400 mcg/ (IV Solution) 100 mls @ 5.525 mls/hr IV .Q18H6M [facility]; Protocol Last Admin: 02/16/22 16:38 Dose: 0.1 mcg/kg/hr, 2.762 mls/hr Ferric Sodium Gluconate 125 mg (/ Sodium Chloride) 110 mls @ 100 mls/hr IVPB DAILY [facility] Stop: 02/18/22 10:05 Last Admin: 02/16/22 10:00 Dose: 100 mls/hr Insulin Aspart (Insulin Aspart (Novolog) 100 Unit/Ml Vial) 0 unit SQ ACHS [facility]; Protocol Last Admin: 02/16/22 12:00 Dose: 2 unit Insulin Detemir (Insulin Detemir (Levemir) 100 Unit/Ml Syr) 27 unit SQ HS@1999 [facility] Last Admin: 02/15/22 19:59 Dose: 27 unit Levothyroxine Sodium (Levothyroxine 25 Mcg Tab) 25 mcg PO HS@1999 [facility] Last Admin: 02/15/22 19:54 Dose: 25 mcg Melatonin (Melatonin 5 Mg Tablet) 5 mg PO HS PRN PRN Reason: Insomnia Last Admin: 02/15/22 20:47 Dose: 5 mg Metoprolol Succinate (Metoprolol Succinate (Er) 50 Mg Tab.Er.24h) 50 mg PO DAILY [facility] Last Admin: 02/16/22 09:03 Dose: 50 mg Naloxone HCl (Naloxone 0.4 Mg/Ml 1 Ml Vial) 0.2 mg IV Q2M PRN PRN Reason: Opioid Reversal Sodium Bicarbonate (Sodium Bicarbonate Tab 650 Mg Tab) 650 mg PO BID [facility] Last Admin: 02/16/22 08:52 Dose: 650 mg Past medical history to include: Stroke resulting in decreased memory (contracture, following, in 2015 following surgery, DVT, [place], gastric bypass in 2016, anxiety depression, muscle spasms, irregular menstrual bleeding, hypertension, hypothyroid chronic pain in the hands nor back Social history: Patient is a long-term resident of [facility], no smoking. Did smoke marijuana in high school. Pretty much bedbound. Has a legal guardian Chandrika Physical examination: VITAL SIGNS: 98.7, 116, 17, 120/75, 93% on AIRVO GENERAL: Propped up in bed, awake, anxious EYES: Pupils equal. Conjunctiva pale. HEENT: External appearance of nose and ears normal, oral cavity grossly normal. NECK: JVD unable to assess masses not palpable. HEART: Heart sounds are muffled; no edema. LUNGS: Respiratory rate increased; distant breath sounds. ABDOMEN: Soft, nontender, liver spleen not palpable, no masses palpable. PSYCH: Answering questions appropriately. NEUROLOGICAL: [Cranial nerves grossly intact; no facial asymmetry, contracture of the left hand. Right Foot drop INVESTIGATIONS, reviewed in the clinical context: 02/16/2022: White count 7.4 hemoglobin 7.6 potassium 4.3 BUN 60 creatinine 3.40 Chest x-ray film personally reviewed by -venous prominence 02/15/2022: White count 7.2 hemoglobin 7.8 platelets 310. Potassium 4.9 BUN 54 creatinine 3.51 Venous Doppler: Negative for DVT Assessment plan: -Acute hypoxic respiratory failure from pulmonary edema versus pneumonia: Slow to respond Currently on AIRVO 40/45 -Probable pneumonia, suspected gram-negative organism IV ertapenem -Altered mental status change-metabolic and toxic neuropathy.mainly drug- induced: Improved Daytime dose of baclofen discontinued. Lyrica that was started in the hospital discontinued. -Acute UTI with cystitis from ESBL IV ertapenem -Chronic hypoxic respiratory failure from obesity ventilation syndrome. Patient is on 5 L oxygen at home. -Chronic medical debility, patient is not ambulatory - obesity BMI 37 -Chronic left hand contracture, right foot drop -Chronic multiple DVTs Outpatient eliquis 5 mg twice a day. -Hyperlipidemia Lipitor 20 mg daily at bedtime -Muscle spasm Baclofen 10 mg daily at bedtime -Essential hypertension Toprol-XL -Diabetes mellitus type 2, chronic low insulin On Lantus,. Follow Accu-Cheks -Chronic pain in the left hand and lower back. [place] 7.5 every 12 when necessary -Anxiety depression Patient on Klonopin 0.5 mg daily at bedtime Prozac 20 mg daily-outpatient -Bilateral nonobstructing renal calculi,-asymptomatic -Chronic kidney disease stage 4 from obstructive uropathy with a history of left ureteral stent. Follow renal function -Right renal atrophy ICU. AIRVO. IV ertapenem. IV Precedex IV Lasix. Psychiatry consulted. Encourage oral intake.
[2022-02-16] MEDS: HALOPERIDOL LACTATE 5 MG/ML 1 ML VIAL IVP SCH (19:38)
[2022-02-16] MEDS: ATORVASTATIN 20 MG TAB PO SCH (19:38)
[2022-02-16] MEDS: LEVOTHYROXINE 25 MCG TAB PO SCH (19:38)
[2022-02-16] MEDS: clonazePAM 0.5 MG TAB PO SCH (19:39)
[2022-02-16 19:55] LABS: Glucose,Whole Blood 151 mg/dL (70-110)
[2022-02-16] MEDS: INSULIN DETEMIR (LEVEMIR) 100 UNIT/ML SYR SQ SCH (19:55)
--- NOTE | 2022-02-16 20:49 | P.PN ---
Subjective Progress Note Date: 02/16/22 Principal diagnosis: Urinary tract infection Patient is a 36-year-old female with a past medical history significant for cognitive impairment CVA with right-sided weakness and a history of gastric bypass surgery patient was sent to the ER from the [facility] for evaluation of mental status changes, patient did have a positive UA concerning for possible symptomatic urinary tract infection with a previous history of ESBL E. coli. On today's evaluation her that is 02/16/2022, the patient remains to be afebrile, patient is a previously comfortably and his daughter 45% FiO2, patient denies having any chest pain or any worsening cough and no sputum production no nausea no vomiting no abdominal pain or diarrhea Objective - Vital Signs Vital signs: Vital Signs Temp 98.7 F 02/16/22 12:00 Pulse 101 H 02/16/22 12:30 Resp 25 H 02/16/22 12:30 BP 116/75 02/16/22 12:30 Pulse Ox 94 L 02/16/22 12:39 FiO2 45 02/16/22 12:39 Intake & Output 02/15/22 02/16/22 02/16/22 18:59 06:59 18:59 Intake Total 1813.654 082.360 0998.518 Output Total 1900 2050 1125 Balance -86.346 -1543.041 163.518 Weight 121 kg Intake: IV 150 160 150 .9 10 60 130 30 Invasive Line 5 10 Invasive Line 6 20 30 20 Sodium Chloride 0.9% 1, 60 000 ml @ 75 mls/hr IV . [id number] [facility] Rx#:[id number] Sodium Ferric Gluconat- 100 Sucrose 125 mg In Sodium Chloride 0.9% 100 ml @ 100 mls/hr IVPB DAILY [facility] Rx#:[id number] Intake, IV Titration 343.654 346.959 58.518 Amount Dexmedetomidine/0.9% NaCl 284.714 346.959 58.518 (Pmx) 400 mcg In Empty Bag 1 bag @ 0.2 MCG/KG/HR 5.525 mls/hr IV .Q18H6M [facility] Rx#:[id number] Norepinephrine 4 mg In 58.94 Sodium Chloride 0.9% 250 ml @ 0.03 MCG/KG/MIN 12. 63 mls/hr IV .Q20H7M [facility] Rx#:[id number] Oral 1320 1080 Output: Urine 1900 2049 1125 Other: Voiding Method Indwelling Catheter Indwelling Catheter Indwelling Catheter - Exam GENERAL DESCRIPTION: A middle-age female lying in bed in no distress RESPIRATORY SYSTEM: Unlabored breathing , decreased breath sounds at bases HEART: S1 S2 regular rate and rhythm , ABDOMEN: Soft , no tenderness EXTREMITIES: No edema feet - Labs CBC & Chem 7: 02/16/22 11:59 02/16/22 06:35 Labs: Abnormal Lab Results - Last 24 Hours (Table) 02/15/22 02/15/22 02/16/22 Range/Units 16:47 20:42 06:24 RBC (3.80-5.40) m/uL Hgb (11.4-16.0) gm/dL Hct (34.0-46.0) % MCHC (31.0-37.0) g/dL RDW (11.5-15.5) % BUN (7-17) mg/dL Creatinine (0.52-1.04) mg/dL Glucose (74-99) mg/dL POC Glucose (mg/dL) 204 H 190 H 164 H (70-110) mg/dL Calcium (8.4-10.2) mg/dL 02/16/22 02/16/22 02/16/22 Range/Units 06:35 06:35 11:46 RBC 2.50 L (3.80-5.40) m/uL Hgb 6.8 L* (11.4-16.0) gm/dL Hct 22.8 L (34.0-46.0) % MCHC 30.0 L (31.0-37.0) g/dL RDW 16.7 H (11.5-15.5) % BUN 60 H (7-17) mg/dL Creatinine 3.40 H (0.52-1.04) mg/dL Glucose 144 H (74-99) mg/dL POC Glucose (mg/dL) 158 H (70-110) mg/dL Calcium 7.7 L (8.4-10.2) mg/dL 02/16/22 Range/Units 11:59 RBC 2.72 L (3.80-5.40) m/uL Hgb 7.6 L (11.4-16.0) gm/dL Hct 24.6 L (34.0-46.0) % MCHC 30.9 L (31.0-37.0) g/dL RDW 16.9 H (11.5-15.5) % BUN (7-17) mg/dL Creatinine (0.52-1.04) mg/dL Glucose (74-99) mg/dL POC Glucose (mg/dL) (70-110) mg/dL Calcium (8.4-10.2) mg/dL Assessment and Plan (1) UTI (urinary tract infection) Current Visit: No Status: Acute Code(s): N39.0 - URINARY TRACT INFECTION, SITE NOT SPECIFIED SNOMED Code(s): 81281377 Plan: 1patient is in the hospital with mental status changes weakness and a fall which is likely multifactorial in this patient who did have a positive UA some urinary symptoms concerning for symptomatic UTI likely from enteric gram- negative pathogen however the patient do have a history of ESBL E. coli infection and will need to cover for ESBL until the cultures are finalized. 2patient did have elevated BUN and creatinine ultrasound didn't show any obstructive uropathy. 3patient urine has been finalized with ESBL E. coli patient repeat UA still positive , patient to continue with a Invanz and will be continued and monitor clinical course closely 4-patient with worsening of respiratory status questionable fluid related, seems to be responding to IV Lasix being managed by pulmonary services , pro- calcitonin was mildly elevated 0.39 Time with Patient: Less than 30
[2022-02-17] MEDS: HALOPERIDOL LACTATE 5 MG/ML 1 ML VIAL IVP SCH ×6 (00:19→20:29)
[2022-02-17] MEDS: DEXMEDETOMIDINE/0.9% NACL(PMX) 400 MCG in EMPTY BAG 1 BAG IV SCH ×3 (00:51→09:53)
[2022-02-17] MEDS: HYDROcodone/APAP 7.5-325MG 1 EACH TAB PO PRN ×3 (02:58→17:54)
[2022-02-17] MEDS: MELATONIN 5 MG TABLET PO PRN (02:59)
[2022-02-17] MEDS: ACETAMINOPHEN TAB 325 MG TAB PO PRN ×3 (05:38→20:36)
[2022-02-17] MEDS: INSULIN ASPART (NovoLOG) 100 UNIT/ML VIAL SQ SCH ×4 (06:46→20:06)
[2022-02-17 06:47] LABS: Glucose,Whole Blood 137 mg/dL (70-110)
--- NOTE | 2022-02-17 08:35 | P.PN ---
Subjective Progress Note Date: 02/17/22 36-year-old female initially seen in the emergency department on February 06, for following, and mental status changes. The patient has a previous history of CVA, right-sided deficits, cognitive delay, gastric bypass, and DVT. The patient resides at a local intermediate, and she has been there since 2016. She apparently fell, and had an x-ray and computed tomography scan done, of her right knee, which showed a nondisplaced hairline fracture of the distal femur involving the intercondylar distal femur. She was placed in a knee immobilizer, given Toradol and morphine. She was then transferred back to the facility. She apparently was found to be poorly responsive by the nurse at the facility, and for that reason was transported back. We are asked to see her, because apparently she developed shortness of breath, and required oxygen therapy, and a higher rate than she normally getting. She's usually getting 2 L at the intermediate, and currently she is on 6 L high flow oxygen, with excellent saturations. The patient is on saline at 75 mL an hour. She is seen today in room 628. White count 9, hemoglobin 8.1, hematocrit 26.3, and platelet count normal. D- dimer was 3.37. Sodium 137, potassium 4.2, chlorides 111, CO2 19, BUN 36, and creatinine 3.19. Interestingly, her N-terminal proBNP is 4190. Testing for an infection such as influenza, respiratory syncytial virus, and coronavirus, all negative. Arterial blood gases, at the day of admission, show pO2 of 104, pCO2 of 53 and pH of 7.3. In addition, she has gram-negative bacilli in her urine, and is currently on ertapenem. Initial chest x-ray on the , shows cardiomegaly, and low lung volumes, without an acute process. Follow-up chest x-ray shows diffuse bilateral infiltrates, which could be consistent with pneumo sandra or fluid overload. I'm reevaluating this patient today on 02/09/2022 on a general medical floor. She is currently sitting up in bed, on 4 L nasal cannula, in no acute distress. Patient is telling me that she is less short of breath this morning. Denies any cough, fever, orthopnea, chest pain. Vital signs remain stable, however, patient is slightly tachycardic this morning it 115 bpm. Heart rhythm is regular. Urine sample was positive for ESBL on 02/06/2022. She is covered with ertapenem, and infectious disease is following. Procalcitonin yesterday was elevated at 1.02. CBC from today is stable showing some anemia with a hemoglobin of 7, hematocrit 22.6, WBC count 8.6, platelets 296,000. She did receive a unit of PRBCs on 02/07/2022, and there are no overt signs of bleeding. Chest x-ray from yesterday 02/08/2022 shows worsening diffuse bilateral lung infiltrates. Her BNP from yesterday was 4190. Fluid balance over the last 24 hours is -900 ml. Progress note dated 02/10/2022. The patient is seen today in room 527. The patient appears very stable, from the respiratory standpoint. She's on 4 L of oxygen. She's getting saline at 75 mL an hour. We did order a chest x-ray for the morning. White count 10.2, hemoglobin 6.9, hematocrit 23, and platelet count 291,000. Sodium 139, potassium 4.4, chlorides 110, CO2 24, BUN 40, and creatinine 3.21. Urine was positive for ESBL Escherichia coli. Progress note dated 02/11/2022. The patient is seen again today in room 27. She's currently on 5 L of oxygen. She feels very comfortable. She is on saline at 20 mL an hour. Her only complaint today is that her shins hurt. She's not having any respiratory compla ints, including wheezing, cough, phlegm production, or shortness of breath. She continues on ertapenem, ESBL E. coli urinary tract infection. White count 8.3, hemoglobin 8.2, hematocrit 26, and platelet count 337,000. Sodium 139, potassium 4.5, chlorides 109, CO2 24, BUN 41, creatinine 3.18. Chest x-ray shows improved findings, as it relates to her airspace opacities. I'm reevaluating this patient today on 04/02/2022 on a general medical floor. She appears fairly comfortable resting in bed, on 5 L nasal cannula. denies any significant shortness of breath, cough, chest pain, fevers.most recent chest x- ray from 02/11/2022 showed improved aeration of the lungs with some persistent multifocal airspace opacities. she is tachycardic with a heart rate of 120 bpm, heart rhythm is regular. blood pressures remains stable and has not required any vasopressors or fluid boluses. CBC from today did show some anemia that he see count 8.1, hemoglobin 8.3, hematocrit 28, platelets 321,000. she has received 2 PRBC transfusions this admission, with the most recent transfusion on 02/10/2022. no overt signs of bleeding. she remains on ertapenem for ESBL coverage in the urine. she remains afebrile. she is not receiving any IV fluids. The patient is seen today 02/13/2022 in follow-up on the regular medical floor. She is currently sitting up in bed. Awake and alert in no acute distress. She is maintaining good O2 saturations in the 90s on 5 L/m per nasal cannula. She has normal saline at 75 ML's per hour. She denies any shortness of breath, cough or congestion. No pulmonary complaints. She is still having some ongoing issues with lower extremity discomfort. She remains on ertapenem for ESBL UTI. Blood sugar 211. On 02/14/2022, I'm seeing this patient for a follow-up. The patient got A team ed twice a day and ultimately the patient got transferred to the intensive care unit because of hypoxic respiratory failure. Currently she is on 100% nonrebreather facemask and her pulse ox is around 96%. Chest x-ray showing smaller lung volumes and evidence of pulmonary edema and diffuse but the pulmonary infiltrates. Note that this 36-year-old female patient has multiple medical problems and comorbidities. She has been in a intermediate since 2017. She apparently had a fall and the CAT scan of the lower extremity was done and it showed a nondisplaced hairline fracture of the distal femur involving the intercondylar distal femur on the left and the patient was given a knee immobilizer. The patient was also given a combination of Toradol and morphine for pain control. She presented to us because of altered mentation. Her proBNP level was elevated at time of admission. The vital screening including influenza, RSV and Covid 19 were all negative. She did have a component of hypercapnic respiratory failure at the time of admission the patient was also diagnosed having a gram-negative UTI which ultimately turned out to be E. coli and this was an ESBL producing organism and the patient was started on IV Invanz. She was on 4 L of O2 by nasal cannula and she decompensated earlier today. The patient's echocardiogram from a recent evaluation showed a preserved LV function and ejection fraction was 50-55%. This is an echocardiogram that was done on 02/09/2022. As far the blood work, the patient's d-dimer is elevated at 5.4 and this could be nonspecific finding and it could be related to infection/sepsis. The BUN is at 50 with a creatinine of 3.3 as the patient has evidence of chronic kidney disease and this is consistent with a component of mild acute on top of chronic kidney failure. WBC count of 10.6 with a hemoglobin of 9.3 and a platelet count of 373. In terms of treatment, the patient is on IV fluids and currently this is running at 75 mL an hour of normal saline. The patient is also on IV Invanz. The patient is on her routine outpa tient medications including oral bicarb. On 02/15/2022, I'm seeing the patient for a follow-up. Patient got transferred to the intensive care unit because of an acute on top of chronic hypoxic/hyper capnic respiratory failure. She was severely acidotic with a pH of 7.1. Her chest x-ray showed evidence of diffuse bilateral pulmonary infiltrates along with smaller lung volumes. At that point, the patient was kept on antibiotics and she was started on diuretics with Lasix 80 mg IV every 12 hours. Rosado catheter was also inserted. She is producing adequate amount of urine output in order of 50-70 mL an hour. Currently she is also on Precedex. Noted the patient was requiring BiPAP and she got very agitated while on BiPAP and she was unable to tolerate. BiPAP was switched to high flow oxygen which is currently running at 60 L with an FiO2 of 55%. As far as her agitation, she was offered Precedex which is running at 0.0 0.7 mcg/kg/m. I also wanted to give her Haldol and she received a total of 2 mg IV push. On today's evaluation, she is calm and comfortable. She is resting comfortably in bed with a pulse ox of 93%. Repeat blood gas from this morning shows improvement in her acid base status. PH is at 7.27 with a pCO2 of 51 and pO2 of 80. There is also interval improvement in her chest x-ray findings some limited improvement in her diffuse bilateral pulmonary infiltrates. She is awake and she is following simple commands. The echoes at 7.2 with a hemoglobin 7.8 and a platelet count of 310. Serum bicarb is at 22 with a sodium level of 143 with a potassium level of 4.9. Cultures are negative except for E. coli in the urine and this was an ESBL producing E. coli and the patient is still on IV Invanz. Still has an immobilizer in the left lower extremity. She was restarted on Eliquis and Doppler of the lower extremities were done yesterday and was inconclusive for an acute DVT. Possibility of chronic ecchymosis cannot be completely excluded in the left lower extremity. The patient was unable to tolerate compression of the femoral vein and unable to evaluate the popliteal vein. Examination of the right eye was also difficult. 02/16/2022, the patient remains in the intensive care unit. This morning, she is, comfortable in following commands and answering questions. She remains on high flow oxygen. This morning, she is on a flow of 40 L with an FiO2 of 50%. Her current pulse ox is around 93%. She is diuresing adequately with Lasix and she is receiving 80 mg of IV Lasix every 12 hours. Her fluids balance is negative in the order of 1.5 L. Meanwhile, the patient's creatinine remained stable. Today's creatinine is at 3.4 with a BUN of 60 and a sodium level is at 138. Rosado catheter is in place and the patient is producing adequate amount of urine output. At the same time, there was a concern for lower extremity clots, DVTs, chronic DVTs, and the patient was restarted back on anticoagulation with Eliquis and she is receiving Eliquis at a dose of 2.5 mg by mouth twice a day. Nevertheless, there has been ongoing drop in hemoglobin. We have not witnessed any GI bleed. Hemoglobin is been fluctuating and her hemoglobin was as high as 9.3 on 02/14/2022 and this morning is down to 6.8. We have not witnessed any signs of GI bleeding. At the same time, the patient remains on IV Invanz regarding an ESBL producing E. coli urinary tract infection. She remains on Precedex which is running at 0.8 mcg/kg/m. Note that the patient has had previous issues with iron deficiency and she was being given oral iron and aranesp on outpatient basis. and , the patient is calm and comfortable and she is currently on Precedex at 0.6 mcg/kg/m. The patient is comfortable but she is having some agitation spurs. She was seen by psychiatric yesterday and there advised was essentially to continue what we are already doing with this patient and she was On a combination of Haldol and Klonopin and when necessary imipramine. We are in the process of trying to cut down the Precedex on this patient. Meanwhile, she is diuresing adequately. She continues to have extensive edema in all 4 extremities. She is in negative fluid balance. She is receiving Lasix at a dose of 80 mg IV every 12 hours. The blood work from today is still pending. Blood work from yesterday was noted and the patient had a creatinine of 3.4 which was improving and the BUN was 60 and a sodium level was at 138. She remains on high flow oxygen with 40 L an FiO2 of 45%. The fluid balance is -1.4 L over the past 24 hours pH remains on IV Invanz regarding her E. coli tract infection. She wants to watch [facility]. We are going to facilitate that for her. Objective - Vital Signs Vital signs: Vital Signs Temp 98.5 F 02/17/22 04:00 Pulse 60 02/17/22 07:00 Resp 17 02/17/22 07:00 BP 100/58 02/17/22 07:00 Pulse Ox 95 02/17/22 07:00 FiO2 45 02/17/22 07:26 Intake & Output 02/16/22 02/17/22 02/17/22 18:59 06:59 18:59 Intake Total 1668.528 589.470 20 Output Total 2285 1450 40 Balance -616.472 -860.530 -20 Weight 123.6 kg Intake: IV 250 270 20 .9 10 70 240 20 Ertapenem 0.5 gm In 50 Sodium Chloride 0.9% 50 ml @ 100 mls/hr IVPB Q24H [facility] Rx#:[id number] Invasive Line 6 30 30 Sodium Ferric Gluconat- 100 Sucrose 125 mg In Sodium Chloride 0.9% 100 ml @ 100 mls/hr IVPB DAILY [facility] Rx#:[id number] Intake, IV Titration 98.528 319.470 Amount Dexmedetomidine/0.9% NaCl 98.528 319.470 (Pmx) 400 mcg In Empty Bag 1 bag @ 0.2 MCG/KG/HR 5.525 mls/hr IV .Q18H6M [facility] Rx#:[id number] Oral 1320 Output: Urine 2285 1450 40 Other: Voiding Method Indwelling Catheter Indwelling Catheter - Exam Alert, pleasant 36-year-old female. No acute distress, oriented 1. No conversational dyspnea or use of accessory muscles. Currently on Airvo 40, fio2 45% HEENT examination is grossly unremarkable. Neck supple. Full range of motion. No adenopathy thyromegaly or neck vein distention. Cardiovascular examination reveals regular rhythm rate. S1-S2 normal. No S3 or S4. No discernible murmur noted. Lungs reveal few scattered bilateral rhonchi. No wheezes. No crackles. Breath sounds are equal bilaterally. . Abdomen soft bowel sounds are heard. No masses or tenderness. Extremities are intact. No cyanosis clubbing or edema.the patient has evidence of foot drop bilaterally along with muscle atrophy, increased edema in the left lower extremity is placed in a immobilizer Skin is without rash or lesion. Neurologic examination is brief but nonfocal. - Labs CBC & Chem 7: 02/16/22 11:59 02/16/22 06:35 Labs: Abnormal Lab Results - Last 24 Hours (Table) 02/16/22 02/16/22 02/16/22 Range/Units 06:35 11:46 11:59 RBC 2.72 L (3.80-5.40) m/uL Hgb 7.6 L (11.4-16.0) gm/dL Hct 24.6 L (34.0-46.0) % MCHC 30.9 L (31.0-37.0) g/dL RDW 16.9 H (11.5-15.5) % POC Glucose (mg/dL) 158 H (70-110) mg/dL Procalcitonin 0.39 H (0.02-0.09) ng/mL 02/16/22 02/16/22 02/17/22 Range/Units 16:45 19:54 06:45 RBC (3.80-5.40) m/uL Hgb (11.4-16.0) gm/dL Hct (34.0-46.0) % MCHC (31.0-37.0) g/dL RDW (11.5-15.5) % POC Glucose (mg/dL) 178 H 151 H 137 H (70-110) mg/dL Procalcitonin (0.02-0.09) ng/mL Assessment and Plan Plan: Acute hypoxemic respiratory failure, likely on the basis of either pneumonia, and/or CHF. Pro-calcitonin 1.02. ProBNP 4190.the patient had an acute decompensation and the patient is currently on 100% nonrebreather facemask and the patient is showing diffuse bilateral pulmonary infiltrates consistent with pulmonary edema although noncardiogenic causes cannot be completely ruled out including ARDS. Pulmonary embolism cannot be completely ruled out as the patient was taken anticoagulation on outpatient basis and this was stopped . The patient is currently off the BiPAP and the patient is on high flow oxygen which is being gradually weaned off and currently she is on 40 L with an FiO2 of 45%. She is responding nicely to diuretics. She was also restarted back on Eliquis. Awaiting labs from today. Overall fluid balance is negative. FiO2 is being gradually weaned off. She is going to be provided incentive spirometer. 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 The patient is also on a combination of Klonopin, and imipramine. Psychiatric evaluation was also done. Urinary tract infection with ESBL. Covered on ertapenem Chronic anemia status post- PRBC transfusion. Most recent hemoglobin 7.6 History of CVA. History of deep vein thromboses. Prior history of myocardial infarction. S/P gastric bypass, 2016. History of pancreatitis. History of anxiety/depression. History of hypothyroidism. History of diabetes mellitus. Multiple other medical problems and comorbidities. Acute on chronic anemia/iron deficiency Plan: Continue the patient on Lasix 80 mg IV every 12 hours IV fluids to KVO CONTINUE anticoagulation with Eliquis Keep the Rosado catheter in place Wean down the oxygen flow Wean down Precedex Continue IV Invanz continue IV iron/Venofer 110 mg 3 doses , awaiting follow-up hemoglobin Monitor hemoglobin and repeat another level at around noontime and meanwhile continue anticoagulation. We'll transfuse if needed continue Klonopin 0.25 mg twice a day and restart her CHLORimipramine 50mg , and psychiatric consultation is really appreciated The goal is to wean off the Precedex as the patient is still having some occasional anger outbursts. We'll continue to follow. Condition is critical. Code status is full
[2022-02-17] MEDS: APIXABAN 2.5 MG TABLET PO SCH ×2 (09:51→20:29)
[2022-02-17] MEDS: SODIUM BICARBONATE TAB 650 MG TAB PO SCH ×2 (09:51→20:29)
[2022-02-17] MEDS: FUROSEMIDE 10 MG/ML 10 ML VIAL IV SCH ×2 (09:51→20:28)
[2022-02-17] MEDS: FLUoxetine HCL 20 MG CAP PO SCH (09:51)
[2022-02-17] MEDS: clonazePAM 0.5 MG TAB PO SCH ×2 (09:51→20:29)
[2022-02-17] MEDS: METOPROLOL SUCCINATE (ER) 50 MG TAB.ER.24H PO SCH (09:52)
[2022-02-17] MEDS: SODIUM FERRIC GLUCONAT-SUCROSE 125 MG in SODIUM CHLORIDE 0.9% 100 ML IVPB SCH (10:44)
[2022-02-17 11:36] LABS: Glucose,Whole Blood 121 mg/dL (70-110)
[2022-02-17 11:57] LABS: Anisocytosis Slight; Basophils % (A) 0 %; Eosinophils # (A) 0.2 k/uL (0-0.7); Eosinophils % (A) 4 %; HCT 24.1 % (34.0-46.0); HGB 7.7 gm/dL (11.4-16.0); Hypochromasia Marked; Lymphocytes # (A) 0.7 k/uL (1.0-4.8); Lymphocytes % (A) 14 %; MCH 29.2 pg (25.0-35.0); MCHC 32.1 g/dL (31.0-37.0); MCV 90.9 fL (80.0-100.0); Mean Platelet Volume 8.3; Monocytes # (A) 0.3 k/uL (0-1.0); Monocytes % (A) 5 %; Neutrophils # (A) 3.8 k/uL (1.3-7.7); Neutrophils % (A) 76 %; Platelet Count 257 k/uL (150-450); Poikilocytosis Moderate; RBC 2.66 m/uL (3.80-5.40); RDW 16.8 % (11.5-15.5); WBC 5.1 k/uL (3.8-10.6)
[2022-02-17 12:13] LABS: Calcium 7.8 mg/dL (8.4-10.2); Magnesium 1.8 mg/dL (1.6-2.3)
[2022-02-17] MEDS ORDERED: Magnesium Replacement Protocol 1 EACH MISC MISCELLANE PRN (12:17)
--- NOTE | 2022-02-17 13:52 | P.PN ---
Progress Note - Text Progress Note Date: 02/17/22 Patient is a 36-year-old female with a known history of CVA with right-sided weakness, cognitive impairment, history of gastric bypass surgery, history of DVT on anticoagulation was sent to ER from [facility] due to altered mental status. Patient had a fall from bed at [facility] yesterday and landed on her bilateral knees. Denied any hitting her head. Patient had x-ray and knee CT done in the ER yesterday showed nondisplaced hairline fracture of the distal femur involving the intercondylar distal femur. She was placed on knee immobilizer and was given Toradol and morphine at 1 AM and was sent back to [facility]. Today morning patient was found to be nonresponsive and difficult to arouse. Patient also received baclofen 5 mg at 5 AM and another 5 mg at 1 PM and also 10 mg at 8 PM. Patient was not discharged back on any medications. Patient has been very lethargic and delayed in answering questions appropriately. Otherwise patient did not have any fever. Patient has been on oxygen at 2 L via nasal cannula since her COVID infection. Does have history of ESBL urinary tract infection. Patient does have CKD with baseline creatinine level around 3.0. Laboratory test showed WBC 8.8 hemoglobin 7.9 and platelets 373 ABG showed pH 7.3 PCO2 53 and PO2 104 Sodium 136 potassium 4.5 chloride 103 bicarb is 26 BUN 39 and creatinine 3.47 Blood sugar is 191 Liver enzymes are not elevated. Albumin 2.8 and troponin x1 negative ammonia level is less than 9 Urinalysis showed cloudy with 2+ protein trace glucose nitrite positive and large leukocyte esterase and elevated WBCs. 02/07/2022 Patient is currently lying alert. Awake alert and oriented. Otherwise patient is screaming with pain. Requesting her [place] and baclofen to be restarted. No complaints of nausea or vomiting. Tolerating oral diet. Antibiotics changed to Invanz due to prior history of ESBL urinary tract infection. Patient is also on left lower extremity immobilizer due to HiLINE fracture. Patient has been afebrile. But tachycardic. Pulse ox 93% on 2 L oxygen via nasal cannula. Laboratory data showed WBC 9.3 hemoglobin 8.3 and platelets 351 and blood sugar is 226 ID is on board. February 08 through 02/11/2022 patient covered by [facility]. 02/12/2022: I assumed care of the patient today. [36-year-old patient who is a resident of [facility], [facility] - long- term resident. known history of irregular vaginal bleeding - polycystic ovarian syndrome.. multiple DVTs in the past. Following gastric bypass surgery patient had a stroke and myocardial infarction. - resulted in cognitive impairment. poor short-term memory. - bedbound. contracture of the left hand and foot drop on the right leg. history of hyperlipidemia anxiety hypertension hypothyroid diabetes. Patient has a legal guardian Chandrika] Patient on 5 L of nasal cannula which is her baseline. Lethargic but does awaken to answer questions appropriately. Did lose her IV. Midline ordered. Encouraged to take oral fluids. On IV ertapenem. Because of somnolence. Discontinue Daytime baclofen. Resume home dose of Prozac. Also Lyrica that was started in the setting of renal failure were discontinued the same for now 02/13/2022: Patient responded really well to yesterday's medication changes. Fully awake. Able to on a full conversation. Discussed with the patient between pain management and drowsiness. She understands. Patient be going home with 7 days of ertapenem. Oral intake improved 02/14/2022: This morning patient episode of desaturating palpitations anxiety. Don't eat a breakfast. Patient's pulse ox was 96% made the patient breathing to a bag. Anxiety settled down. Patient was on 6 L of nasal cannula. Late in the afternoon patient again desaturated. Was moved to ICU. 02/15/2022: ICU: Patient currently on AIRVO. 45/50. Short of breath. [place] to have CHF versus infiltrate. On IV Lasix. IV Norepinephrine and IV Precedex. Also on IV ertapenem. 02/16/2022: ICU. Remains on AIRVO. 40 L and 45%. Given lactulose. Because of episodes of agitation being put on Precedex. Does sit up in a chair for 2-1/2 hours. Psych was consulted. Remains on IV ertapenem and IV Lasix. Breathing a bit better. 02/17/2022: ICU. Patient is off Precedex. Psychiatry-started the patient H aldol. On 15 L nasal cannula. Mouth breathing. Did eat well. Complaining of a chronic pain. Counseled. Active Medications Acetaminophen (Acetaminophen Tab 325 Mg Tab) 650 mg PO Q6HR PRN PRN Reason: Fever and/ or MILD Pain Last Admin: 02/17/22 11:58 Dose: 650 mg Hydrocodone Bitart/Acetaminophen (Hydrocodone/Apap 7.5-325mg 1 Each Tab) 1 each PO Q6HR PRN PRN Reason: MODERATE TO SEVERE Pain Last Admin: 02/17/22 10:43 Dose: 1 each Apixaban (Apixaban 2.5 Mg Tablet) 2.5 mg PO BID [facility]; Protocol Last Admin: 02/17/22 09:51 Dose: 2.5 mg Atorvastatin Calcium (Atorvastatin 20 Mg Tab) 20 mg PO HS@1999 [facility] Last Admin: 02/16/22 19:38 Dose: 20 mg Baclofen (Baclofen 10 Mg Tab) 10 mg PO HS@1999 [facility] Last Admin: 02/16/22 13:28 Dose: 10 mg Clomipramine HCl (Clomipramine 50 Mg Cap) 50 mg PO [facility] Last Admin: 02/16/22 09:03 Dose: 50 mg Clonazepam (Clonazepam 0.5 Mg Tab) 0.25 mg PO BID [facility] Last Admin: 02/17/22 09:51 Dose: 0.25 mg Fluoxetine HCl (Fluoxetine Hcl 20 Mg Cap) 20 mg PO DAILY [facility] Last Admin: 02/17/22 09:51 Dose: 20 mg Furosemide (Furosemide 10 Mg/Ml 10 Ml Vial) 80 mg IV Q12HR [facility] Last Admin: 02/17/22 09:51 Dose: 80 mg Haloperidol Lactate (Haloperidol Lactate 5 Mg/Ml 1 Ml Vial) 1 mg IVP Q4HR [facility] Stop: 02/17/22 20:01 Last Admin: 02/17/22 11:59 Dose: 1 mg Haloperidol Lactate (Haloperidol Lactate 5 Mg/Ml 1 Ml Vial) 1 mg IVP Q4HR PRN PRN Reason: Agitation or Acute Psychosis Ertapenem 0.5 gm/ Sodium (Chloride) 50 mls @ 100 mls/hr IVPB Q24H [facility] Last Admin: 02/16/22 17:00 Dose: 100 mls/hr Dexmedetomidine HCl 400 mcg/ (IV Solution) 100 mls @ 5.525 mls/hr IV .Q18H6M [facility]; Protocol Last Titration: 02/17/22 11:00 Dose: 0 mcg/kg/hr, 0 mls/hr Ferric Sodium Gluconate 125 mg (/ Sodium Chloride) 110 mls @ 100 mls/hr IVPB DAILY [facility] Stop: 02/18/22 10:05 Last Admin: 02/17/22 10:44 Dose: 100 mls/hr Magnesium Sulfate/Dextrose 1 (gm/ IV Solution) 100 mls @ 100 mls/hr IVPB Q1H [facility] Stop: 02/17/22 14:29 Insulin Aspart (Insulin Aspart (Novolog) 100 Unit/Ml Vial) 0 unit SQ ACHS [facility]; Protocol Last Admin: 02/17/22 11:53 Dose: Not Given Insulin Detemir (Insulin Detemir (Levemir) 100 Unit/Ml Syr) 27 unit SQ HS@1999 [facility] Last Admin: 02/16/22 19:55 Dose: 27 unit Levothyroxine Sodium (Levothyroxine 25 Mcg Tab) 25 mcg PO HS@1999 [facility] Last Admin: 02/16/22 19:38 Dose: 25 mcg Melatonin (Melatonin 5 Mg Tablet) 5 mg PO HS PRN PRN Reason: Insomnia Last Admin: 02/17/22 02:59 Dose: 5 mg Metoprolol Succinate (Metoprolol Succinate (Er) 50 Mg Tab.Er.24h) 50 mg PO DAILY [facility] Last Admin: 02/17/22 09:52 Dose: 50 mg Miscellaneous Information (Magnesium Replacement Protocol 1 Each Misc) 1 each MISCELLANE DAILY PRN; Protocol PRN Reason: Per Protocol Naloxone HCl (Naloxone 0.4 Mg/Ml 1 Ml Vial) 0.2 mg IV Q2M PRN PRN Reason: Opioid Reversal Sodium Bicarbonate (Sodium Bicarbonate Tab 650 Mg Tab) 650 mg PO BID [facility] Last Admin: 02/17/22 09:51 Dose: 650 mg Past medical history to include: Stroke resulting in decreased memory (contracture, following, in 2015 following surgery, DVT, [place], gastric bypass in 2016, anxiety depression, muscle spasms, irregular menstrual bleeding, hypertension, hypothyroid chronic pain in the hands nor back Social history: Patient is a long-term resident of [facility], no smoking. Did smoke marijuana in high school. Pretty much bedbound. Has a legal guardian Chandrika Physical examination: VITAL SIGNS: 97.9, 89, 23, 109/55, 100% on 15 L GENERAL: Propped up in bed, awake, anxious EYES: Pupils equal. Conjunctiva pale. HEENT: External appearance of nose and ears normal, oral cavity grossly normal. NECK: JVD unable to assess masses not palpable. HEART: Heart sounds are muffled; no edema. LUNGS: Respiratory rate increased; distant breath sounds. ABDOMEN: Soft, nontender, liver spleen not palpable, no masses palpable. PSYCH: Answering questions appropriately. Anxious NEUROLOGICAL: [Cranial nerves grossly intact; no facial asymmetry, contracture of the left hand. Right Foot drop INVESTIGATIONS, reviewed in the clinical context: 02/17/2022: White count 5.1 hemoglobin 7.7 potassium 4. 59 creatinine 3.43 02/16/2022: White count 7.4 hemoglobin 7.6 potassium 4.3 BUN 60 creatinine 3.40 Chest x-ray film personally reviewed by me-venous prominence 02/15/2022: White count 7.2 hemoglobin 7.8 platelets 310. Potassium 4.9 BUN 54 creatinine 3.51 Venous Doppler: Negative for DVT Assessment plan: -Acute hypoxic respiratory failure from pulmonary edema versus pneumonia: Slow to respond Currently on 15 L high flow oxygen -Probable pneumonia, suspected gram-negative organism IV ertapenem -Altered mental status change-metabolic and toxic neuropathy.mainly drug- induced: Improved Daytime dose of baclofen discontinued. Lyrica that was started in the hospital discontinued. -Acute UTI with cystitis from ESBL IV ertapenem -Chronic hypoxic respiratory failure from obesity ventilation syndrome. Patient is on 5 L oxygen at baseline -Chronic medical debility, patient is not ambulatory - obesity BMI 37 -Chronic left hand contracture, right foot drop -Chronic multiple DVTs Outpatient eliquis 5 mg twice a day. -Hyperlipidemia Lipitor 20 mg daily at bedtime -Muscle spasm Baclofen 10 mg daily at bedtime -Essential hypertension Toprol-XL -Diabetes mellitus type 2, chronic low insulin On Lantus,. Follow Accu-Cheks -Chronic pain in the left hand and lower back. [place] 7.5 every 12 when necessary -Anxiety depression Patient on Klonopin 0.5 mg daily at bedtime Prozac 20 mg daily-outpatient -Bilateral nonobstructing renal calculi,-asymptomatic -Chronic kidney disease stage 4 from obstructive uropathy with a history of left ureteral stent. Follow renal function -Right renal atrophy ICU. 15 L oxygen. IV ertapenem. Patient is off Precedex , IV Lasix. Psychiatrist added Haldol. Patient reassured. Not go and need further pain medications. Patient really easily becomes encephalopathic.
--- NOTE | 2022-02-17 14:11 | P.PN ---
Subjective Progress Note Date: 02/17/22 Principal diagnosis: Urinary tract infection Patient is a 36-year-old female with a past medical history significant for cognitive impairment CVA with right-sided weakness and a history of gastric bypass surgery patient was sent to the ER from the [facility] for evaluation of mental status changes, patient did have a positive UA concerning for possible symptomatic urinary tract infection with a previous history of ESBL E. coli. On today's evaluation her that is 02/17/2022, the patient continues to be afebrile, patient is breathing comfortably and is down to 8 L high flow oxygen denies any chest pain or worsening cough no abdominal pain has been complaining of pain to the lower extremity and wants more pain medication Objective - Vital Signs Vital signs: Vital Signs Temp 97.9 F 02/17/22 12:00 Pulse 89 02/17/22 12:00 Resp 16 02/17/22 12:13 BP 109/55 02/17/22 12:00 Pulse Ox 90 L 02/17/22 12:13 FiO2 38 02/17/22 11:00 Intake & Output 02/16/22 02/17/22 02/17/22 18:59 06:59 18:59 Intake Total 1668.528 589.470 209.612 Output Total 2285 1450 810 Balance -616.472 -860.530 -600.388 Weight 123.6 kg Intake: IV 250 270 140 .9 10 70 240 120 Ertapenem 0.5 gm In 50 Sodium Chloride 0.9% 50 ml @ 100 mls/hr IVPB Q24H [facility] Rx#:[id number] Invasive Line 6 30 30 20 Sodium Ferric Gluconat- 100 Sucrose 125 mg In Sodium Chloride 0.9% 100 ml @ 100 mls/hr IVPB DAILY [facility] Rx#:[id number] Intake, IV Titration 98.528 319.470 69.612 Amount Dexmedetomidine/0.9% NaCl 98.528 319.470 69.612 (Pmx) 400 mcg In Empty Bag 1 bag @ 0.2 MCG/KG/HR 5.525 mls/hr IV .Q18H6M [facility] Rx#:[id number] Oral 1320 Output: Urine 2285 1450 810 Other: Voiding Method Indwelling Catheter Indwelling Catheter Indwelling Catheter - Exam GENERAL DESCRIPTION: A middle-age female lying in bed in no distress RESPIRATORY SYSTEM: Unlabored breathing , decreased breath sounds at bases HEART: S1 S2 regular rate and rhythm , ABDOMEN: Soft , no tenderness EXTREMITIES: No edema feet - Labs CBC & Chem 7: 02/17/22 11:42 02/17/22 11:42 Labs: Abnormal Lab Results - Last 24 Hours (Table) 02/16/22 02/16/22 02/16/22 Range/Units 06:35 16:45 19:54 RBC (3.80-5.40) m/uL Hgb (11.4-16.0) gm/dL Hct (34.0-46.0) % RDW (11.5-15.5) % Lymphocytes # (1.0-4.8) k/uL BUN (7-17) mg/dL Creatinine (0.52-1.04) mg/dL Glucose (74-99) mg/dL POC Glucose (mg/dL) 178 H 151 H (70-110) mg/dL Calcium (8.4-10.2) mg/dL Procalcitonin 0.39 H (0.02-0.09) ng/mL 02/17/22 02/17/22 02/17/22 Range/Units 06:45 11:32 11:42 RBC 2.66 L (3.80-5.40) m/uL Hgb 7.7 L (11.4-16.0) gm/dL Hct 24.1 L (34.0-46.0) % RDW 16.8 H (11.5-15.5) % Lymphocytes # 0.7 L (1.0-4.8) k/uL BUN (7-17) mg/dL Creatinine (0.52-1.04) mg/dL Glucose (74-99) mg/dL POC Glucose (mg/dL) 137 H 121 H (70-110) mg/dL Calcium (8.4-10.2) mg/dL Procalcitonin (0.02-0.09) ng/mL 02/17/22 Range/Units 11:42 RBC (3.80-5.40) m/uL Hgb (11.4-16.0) gm/dL Hct (34.0-46.0) % RDW (11.5-15.5) % Lymphocytes # (1.0-4.8) k/uL BUN 59 H (7-17) mg/dL Creatinine 3.43 H (0.52-1.04) mg/dL Glucose 110 H (74-99) mg/dL POC Glucose (mg/dL) (70-110) mg/dL Calcium 7.8 L (8.4-10.2) mg/dL Procalcitonin (0.02-0.09) ng/mL Assessment and Plan (1) UTI (urinary tract infection) Current Visit: No Status: Acute Code(s): N39.0 - URINARY TRACT INFECTION, SITE NOT SPECIFIED SNOMED Code(s): 33527376 Plan: 1patient is in the hospital with mental status changes weakness and a fall which is likely multifactorial in this patient who did have a positive UA some urinary symptoms concerning for symptomatic UTI likely from enteric gram- negative pathogen however the patient do have a history of ESBL E. coli infection and will need to cover for ESBL until the cultures are finalized. 2patient did have elevated BUN and creatinine ultrasound didn't show any obstructive uropathy. 3patient urine has been finalized with ESBL E. coli patient repeat UA still positive , patient to continue with a Invanz and monitor clinical course closely 4-patient with worsening of respiratory status questionable fluid related, patient seems to be responding to IV Lasix which will be continued and managed by pulmonary services , pro-calcitonin was mildly elevated 0.39 Time with Patient: Less than 30
[2022-02-17] MEDS: MAGNESIUM SULFATE-D5W PMX 1 GM in DEXTROSE/WATER 1 100ML.BAG IVPB SCH ×2 (15:47→16:47)
[2022-02-17] MEDS ORDERED: SODIUM CHLORIDE 0.65% NASAL SPRAY 44 ML BTL NASAL PRN (15:56)
[2022-02-17] MEDS ORDERED: LACTULOSE 20 GM/30 ML CUP PO ONE (15:57)
[2022-02-17 16:27] LABS: Glucose,Whole Blood 173 mg/dL (70-110)
[2022-02-17] MEDS: ERTAPENEM 0.5 GM in SODIUM CHLORIDE 0.9% 50 ML IVPB SCH (16:32)
[2022-02-17 20:01] LABS: Glucose,Whole Blood 135 mg/dL (70-110)
[2022-02-17] MEDS: ATORVASTATIN 20 MG TAB PO SCH (20:29)
[2022-02-17] MEDS: BACLOFEN 10 MG TAB PO SCH (20:29)
[2022-02-17] MEDS: LEVOTHYROXINE 25 MCG TAB PO SCH (20:30)
--- NOTE | 2022-02-17 20:32 | P.CN ---
Psychiatric Consult - . Consult date: 02/16/22 Consult:: IDENTIFYING DATA: This patient is a 36 year old female with multiple medical comorobidities (acute hypoxic respiratory failure, probable pneumonia, UTI, obesity hypoventilation syndrome, obesity, HTN, DM2, chronic pain, CKD) who is admitted to the ICU and currrently in the ICU on high flow oxygen due to hypoxic respiratory failure. REASON FOR REFERRAL: Psychiatry was consulted for anger/agitation. HISTORY OF PRESENT ILLNESS: The patient presented to the hospital on 02/06/22 for altered mental status, and is currently in the ICU with acute hypoxic respiratory failure from probable pneumonia. I evaluated patient on 02/16/2022 and she was found in her ICU bed with soft restraints to prevent her from removing her lines and high flow oxygen. She is currently delirious and oriented to person only. She reports she is at "[employer]" and believes the day is , the year is "" and the month is "January". She appears childlike in her demeanor and is often attention seeking from the nurses. She is not currently agitated, but her nurse reports patient has been agitated at several times and required Haldol 1mg IV x 2 in the past 24 hours. At this time patient denies any suicidal or homicidal ideations, intent or plan. Patient denies any auditory, visual hallucinations and denies any paranoia or delusions. History is limited due to patient's altered mental status. Per chart, she does not smoke tobacco, but has a history of using marijuana. PAST PSYCHIATRIC HISTORY: Unable to obtain history due to altered mental status. Per chart, has a history of anxiety and depression, is on Prozac and klonopin 0.5 mg BID. PAST MEDICAL HISTORY: Past Medical History: CVA/TIA, Deep Vein Thrombosis (DVT), Myocardial Infarction ([place]) Additional Past Medical History / Comment(s): morbid obesity, pancreatitis, history of coma - 10/24/14 - until end of december after suffering from a stroke. Last Myocardial Infarction Date:: 10/2014 History of Any Multi-Drug Resistant Organisms: ESBL, Other MDRO Date of last positivie culture/infection: 07/16/20 ESBL E.coli MDRO Source:: Urine-ESBL Past Surgical History: Cholecystectomy Additional Past Surgical History / Comment(s): Cystoscopy with placement of left double-J catheter 02/16/2018, Gastric bypass 2016 Past Anesthesia/Blood Transfusion Reactions: No Reported Reaction Past Psychological History: Anxiety, Depression, Panic Disorder Smoking Status: Never smoker Past Alcohol Use History: None Reported Additional Past Alcohol Use History / Comment(s): patient smoked in high school Past Drug Use History: Marijuana ALLERGIES: as per EMR. CHEMICAL DEPENDENCY HISTORY: as per HPI. FAMILY PSYCHIATRIC/SUBSTANCE USE HISTORY: Unable to obtain history due to altered mental status. SOCIAL HISTORY: From [employer] Unable to obtain history due to altered mental status. MENTAL STATUS EXAM: General Appearance: Patient appears to be stated age, morbidly obese, disheveled, laying in ICU bed with soft restraints and high flow oxygen. Behavior: Patient is calmly lying in bed without any agitated behavior at time of assessment, but is confused and childlike. Speech: Patient's speech is fluent and non-pressured. Mood/Affect: Patient reports their mood is "good", affect is anxious. Suicidality/Homicidality: Patient denies having any suicidal or homicidal ideation intent or plan. Perceptions: Patient denies any visual hallucinations and denies any auditory hallucinations Though content/process: There is no evidence of any delusional thought content and thought process is linear. Memory and concentration: AOX1 person only, not oriented to place or time. Judgment and insight: Poor IMPRESSIONS: Delirium, multifactorial (multiple medical comorbidities) Unspecified anxiety disorder Unspecified depressive disorder Rule out intellectual disability PLAN: -At this time patient DOES NOT meet criteria for inpatient psychiatric admission. -Patient DOES NOT have decision making capacity at this time and is unable to reason through and communicate/appreciate the risks, benefits and alternatives to treatment. -Delirium precautions recommended with patient including - avoiding use of narcotics and PIEROGI [employer]ER sedatives, limit anticholinergic medications when possible, frequent re-orientation, minimize use of restraints, open window shades during the day and close them at night -Would recommend the following medication changes/additions: Decrease Klonopin to 0.25 mg BID for anxiety due to altered mental status. Increase Haldol to 1 mg Q4H scheduled for the next 12 hours and then change to Haldol 1 mg Q4H PRN for agitation/psychosis starting tomorrow morning. Monitor for EPS, respiratory depression, and hold if appears oversedated. -Continue to monitor safety and initiate 1:1 sitter if safety concerns arise. -Cannot leave AMA at this time. Patient will need a petition and certification if attempting to leave AMA. -Communicated plan to patient's nurse on 02/16/2022. -Will continue to follow along. -Please contact with any questions. 02/16/22 19:14 02/16/22 19:22
[2022-02-17] MEDS: INSULIN DETEMIR (LEVEMIR) 100 UNIT/ML SYR SQ SCH (20:43)
[2022-02-18] MEDS: HALOPERIDOL LACTATE 5 MG/ML 1 ML VIAL IVP PRN ×3 (00:06→14:44)
[2022-02-18] MEDS: HYDROcodone/APAP 7.5-325MG 1 EACH TAB PO PRN ×4 (00:06→21:09)
[2022-02-18] MEDS: MELATONIN 5 MG TABLET PO PRN ×2 (00:06→21:09)
[2022-02-18] MEDS: DEXMEDETOMIDINE/0.9% NACL(PMX) 400 MCG in EMPTY BAG 1 BAG IV SCH (01:47)
[2022-02-18 06:14] LABS: Glucose,Whole Blood 86 mg/dL (70-110)
[2022-02-18 06:20] LABS: Calcium 7.8 mg/dL (8.4-10.2); Potassium 3.9 mmol/L (3.5-5.1)
[2022-02-18] MEDS: INSULIN ASPART (NovoLOG) 100 UNIT/ML VIAL SQ SCH ×4 (06:37→21:08)
[2022-02-18 06:43] LABS: Anisocytosis Slight; HCT 22.1 % (34.0-46.0); Hypochromasia Marked; MCHC 30.6 g/dL (31.0-37.0); MCV 91.5 fL (80.0-100.0); Mean Platelet Volume 8.6; Platelet Count 267 k/uL (150-450); Poikilocytosis Moderate; RBC 2.42 m/uL (3.80-5.40); RDW 17.8 % (11.5-15.5); WBC 5.9 k/uL (3.8-10.6)
[2022-02-18 06:51] LABS: HGB 6.8 gm/dL (11.4-16.0)
[2022-02-18] MEDS: SODIUM FERRIC GLUCONAT-SUCROSE 125 MG in SODIUM CHLORIDE 0.9% 100 ML IVPB SCH (08:37)
[2022-02-18] MEDS: FLUoxetine HCL 20 MG CAP PO SCH (08:41)
[2022-02-18] MEDS: APIXABAN 2.5 MG TABLET PO SCH ×2 (08:41→21:09)
[2022-02-18] MEDS: SODIUM BICARBONATE TAB 650 MG TAB PO SCH ×2 (08:41→21:09)
[2022-02-18] MEDS: clonazePAM 0.5 MG TAB PO SCH ×2 (08:41→21:09)
[2022-02-18] MEDS: METOPROLOL SUCCINATE (ER) 50 MG TAB.ER.24H PO SCH (08:41)
[2022-02-18] MEDS: FUROSEMIDE 10 MG/ML 10 ML VIAL IV SCH ×2 (08:42→21:08)
--- NOTE | 2022-02-18 08:59 | P.PN ---
Subjective Progress Note Date: 02/18/22 36-year-old female initially seen in the emergency department on February 06, for following, and mental status changes. The patient has a previous history of CVA, right-sided deficits, cognitive delay, gastric bypass, and DVT. The patient resides at a local [facility], and she has been there since 2016. She apparently fell, and had an x-ray and computed tomography scan done, of her right knee, which showed a nondisplaced hairline fracture of the distal femur involving the intercondylar distal femur. She was placed in a knee immobilizer, given Toradol and morphine. She was then transferred back to the facility. She apparently was found to be poorly responsive by the nurse at the facility, and for that reason was transported back. We are asked to see her, because apparently she developed shortness of breath, and required oxygen therapy, and a higher rate than she normally getting. She's usually getting 2 L at the fci, and currently she is on 6 L high flow oxygen, with excellent saturations. The patient is on saline at 75 mL an hour. She is seen today in room 628. White count 9, hemoglobin 8.1, hematocrit 26.3, and platelet count normal. D- dimer was 3.37. Sodium 137, potassium 4.2, chlorides 111, CO2 19, BUN 36, and creatinine 3.19. Interestingly, her N-terminal proBNP is 4190. Testing for an infection such as influenza, respiratory syncytial virus, and coronavirus, all negative. Arterial blood gases, at the day of admission, show pO2 of 104, pCO2 of 53 and pH of 7.3. In addition, she has gram-negative bacilli in her urine, and is currently on ertapenem. Initial chest x-ray on the , shows cardiomegaly, and low lung volumes, without an acute process. Follow-up chest x-ray shows diffuse bilateral infiltrates, which could be consistent with pneumo sandra or fluid overload. I'm reevaluating this patient today on 02/09/2022 on a general medical floor. She is currently sitting up in bed, on 4 L nasal cannula, in no acute distress. Patient is telling me that she is less short of breath this morning. Denies any cough, fever, orthopnea, chest pain. Vital signs remain stable, however, patient is slightly tachycardic this morning it 115 bpm. Heart rhythm is regular. Urine sample was positive for ESBL on 02/06/2022. She is covered with ertapenem, and infectious disease is following. Procalcitonin yesterday was elevated at 1.02. CBC from today is stable showing some anemia with a hemoglobin of 7, hematocrit 22.6, WBC count 8.6, platelets 296,000. She did receive a unit of PRBCs on 02/07/2022, and there are no overt signs of bleeding. Chest x-ray from yesterday 02/08/2022 shows worsening diffuse bilateral lung infiltrates. Her BNP from yesterday was 4190. Fluid balance over the last 24 hours is -900 ml. Progress note dated 02/10/2022. The patient is seen today in room 527. The patient appears very stable, from the respiratory standpoint. She's on 4 L of oxygen. She's getting saline at 75 mL an hour. We did order a chest x-ray for the morning. White count 10.2, hemoglobin 6.9, hematocrit 23, and platelet count 291,000. Sodium 139, potassium 4.4, chlorides 110, CO2 24, BUN 40, and creatinine 3.21. Urine was positive for ESBL Escherichia coli. Progress note dated 02/11/2022. The patient is seen again today in room 27. She's currently on 5 L of oxygen. She feels very comfortable. She is on saline at 20 mL an hour. Her only complaint today is that her shins hurt. She's not having any respiratory compla ints, including wheezing, cough, phlegm production, or shortness of breath. She continues on ertapenem, ESBL E. coli urinary tract infection. White count 8.3, hemoglobin 8.2, hematocrit 26, and platelet count 337,000. Sodium 139, potassium 4.5, chlorides 109, CO2 24, BUN 41, creatinine 3.18. Chest x-ray shows improved findings, as it relates to her airspace opacities. I'm reevaluating this patient today on 04/02/2022 on a general medical floor. She appears fairly comfortable resting in bed, on 5 L nasal cannula. denies any significant shortness of breath, cough, chest pain, fevers.most recent chest x- ray from 02/11/2022 showed improved aeration of the lungs with some persistent multifocal airspace opacities. she is tachycardic with a heart rate of 120 bpm, heart rhythm is regular. blood pressures remains stable and has not required any vasopressors or fluid boluses. CBC from today did show some anemia that he see count 8.1, hemoglobin 8.3, hematocrit 28, platelets 321,000. she has received 2 PRBC transfusions this admission, with the most recent transfusion on 02/10/2022. no overt signs of bleeding. she remains on ertapenem for ESBL coverage in the urine. she remains afebrile. she is not receiving any IV fluids. The patient is seen today 02/13/2022 in follow-up on the regular medical floor. She is currently sitting up in bed. Awake and alert in no acute distress. She is maintaining good O2 saturations in the 90s on 5 L/m per nasal cannula. She has normal saline at 75 ML's per hour. She denies any shortness of breath, cough or congestion. No pulmonary complaints. She is still having some ongoing issues with lower extremity discomfort. She remains on ertapenem for ESBL UTI. Blood sugar 211. On 02/14/2022, I'm seeing this patient for a follow-up. The patient got A team ed twice a day and ultimately the patient got transferred to the intensive care unit because of hypoxic respiratory failure. Currently she is on 100% nonrebreather facemask and her pulse ox is around 96%. Chest x-ray showing smaller lung volumes and evidence of pulmonary edema and diffuse but the pulmonary infiltrates. Note that this 36-year-old female patient has multiple medical problems and comorbidities. She has been in a fci since 2017. She apparently had a fall and the CAT scan of the lower extremity was done and it showed a nondisplaced hairline fracture of the distal femur involving the intercondylar distal femur on the left and the patient was given a knee immobilizer. The patient was also given a combination of Toradol and morphine for pain control. She presented to us because of altered mentation. Her proBNP level was elevated at time of admission. The vital screening including influenza, RSV and Covid 19 were all negative. She did have a component of hypercapnic respiratory failure at the time of admission the patient was also diagnosed having a gram-negative UTI which ultimately turned out to be E. coli and this was an ESBL producing organism and the patient was started on IV Invanz. She was on 4 L of O2 by nasal cannula and she decompensated earlier today. The patient's echocardiogram from a recent evaluation showed a preserved LV function and ejection fraction was 50-55%. This is an echocardiogram that was done on 02/09/2022. As far the blood work, the patient's d-dimer is elevated at 5.4 and this could be nonspecific finding and it could be related to infection/sepsis. The BUN is at 50 with a creatinine of 3.3 as the patient has evidence of chronic kidney disease and this is consistent with a component of mild acute on top of chronic kidney failure. WBC count of 10.6 with a hemoglobin of 9.3 and a platelet count of 373. In terms of treatment, the patient is on IV fluids and currently this is running at 75 mL an hour of normal saline. The patient is also on IV Invanz. The patient is on her routine outpa tient medications including oral bicarb. On 02/15/2022, I'm seeing the patient for a follow-up. Patient got transferred to the intensive care unit because of an acute on top of chronic hypoxic/hyper capnic respiratory failure. She was severely acidotic with a pH of 7.1. Her chest x-ray showed evidence of diffuse bilateral pulmonary infiltrates along with smaller lung volumes. At that point, the patient was kept on antibiotics and she was started on diuretics with Lasix 80 mg IV every 12 hours. Rosado catheter was also inserted. She is producing adequate amount of urine output in order of 50-70 mL an hour. Currently she is also on Precedex. Noted the patient was requiring BiPAP and she got very agitated while on BiPAP and she was unable to tolerate. BiPAP was switched to high flow oxygen which is currently running at 60 L with an FiO2 of 55%. As far as her agitation, she was offered Precedex which is running at 0.0 0.7 mcg/kg/m. I also wanted to give her Haldol and she received a total of 2 mg IV push. On today's evaluation, she is calm and comfortable. She is resting comfortably in bed with a pulse ox of 93%. Repeat blood gas from this morning shows improvement in her acid base status. PH is at 7.27 with a pCO2 of 51 and pO2 of 80. There is also interval improvement in her chest x-ray findings some limited improvement in her diffuse bilateral pulmonary infiltrates. She is awake and she is following simple commands. The echoes at 7.2 with a hemoglobin 7.8 and a platelet count of 310. Serum bicarb is at 22 with a sodium level of 143 with a potassium level of 4.9. Cultures are negative except for E. coli in the urine and this was an ESBL producing E. coli and the patient is still on IV Invanz. Still has an immobilizer in the left lower extremity. She was restarted on Eliquis and Doppler of the lower extremities were done yesterday and was inconclusive for an acute DVT. Possibility of chronic ecchymosis cannot be completely excluded in the left lower extremity. The patient was unable to tolerate compression of the femoral vein and unable to evaluate the popliteal vein. Examination of the right eye was also difficult. 02/16/2022, the patient remains in the intensive care unit. This morning, she is, comfortable in following commands and answering questions. She remains on high flow oxygen. This morning, she is on a flow of 40 L with an FiO2 of 50%. Her current pulse ox is around 93%. She is diuresing adequately with Lasix and she is receiving 80 mg of IV Lasix every 12 hours. Her fluids balance is negative in the order of 1.5 L. Meanwhile, the patient's creatinine remained stable. Today's creatinine is at 3.4 with a BUN of 60 and a sodium level is at 138. Rosado catheter is in place and the patient is producing adequate amount of urine output. At the same time, there was a concern for lower extremity clots, DVTs, chronic DVTs, and the patient was restarted back on anticoagulation with Eliquis and she is receiving Eliquis at a dose of 2.5 mg by mouth twice a day. Nevertheless, there has been ongoing drop in hemoglobin. We have not witnessed any GI bleed. Hemoglobin is been fluctuating and her hemoglobin was as high as 9.3 on 02/14/2022 and this morning is down to 6.8. We have not witnessed any signs of GI bleeding. At the same time, the patient remains on IV Invanz regarding an ESBL producing E. coli urinary tract infection. She remains on Precedex which is running at 0.8 mcg/kg/m. Note that the patient has had previous issues with iron deficiency and she was being given oral iron and aranesp on outpatient basis. and , the patient is calm and comfortable and she is currently on Precedex at 0.6 mcg/kg/m. The patient is comfortable but she is having some agitation spurs. She was seen by psychiatric yesterday and there advised was essentially to continue what we are already doing with this patient and she was On a combination of Haldol and Klonopin and when necessary imipramine. We are in the process of trying to cut down the Precedex on this patient. Meanwhile, she is diuresing adequately. She continues to have extensive edema in all 4 extremities. She is in negative fluid balance. She is receiving Lasix at a dose of 80 mg IV every 12 hours. The blood work from today is still pending. Blood work from yesterday was noted and the patient had a creatinine of 3.4 which was improving and the BUN was 60 and a sodium level was at 138. She remains on high flow oxygen with 40 L an FiO2 of 45%. The fluid balance is -1.4 L over the past 24 hours pH remains on IV Invanz regarding her E. coli tract infection. She wants to watch [employer]. We are going to facilitate that for her. 02/17/2022, the patient is oxygenating adequately and the patient is currently on 5 L nasal cannula and she was taken off the high flow oxygen. She is doing well. At times she is still getting agitated. Overnight, the patient became restless and agitated. She was started back on Precedex and earlier this morning she was taken off the Precedex and she seems to be calm and comfortable for now. She remains on a combination of Haldol as needed, Klonopin and imipr amine. Breathing is nonlabored and the patient is calm and comfortable. She continues to have edema lower extremities bilaterally. Her BUN is at 56 and a creatinine of 3.5 and a sodium level is at 141. She remains on IV Lasix and the patient is receiving Lasix at a dose of 80 mg every 12 hours. Overall fluid balance has been negative over the past few days. No chest pain. No labored breathing. No other new complaints otherwise for now. On a separate note, the hemoglobin has dropped down to 6.8. No evidence of any GI bleeding. The patient continues to be on IV iron. Hemoglobin is going to be repeated and will decide accordingly packed RBC transfusion is needed. The patient remains on IV Invanz. Objective - Vital Signs Vital signs: Vital Signs Temp 98.0 F 02/18/22 08:00 Pulse 90 02/18/22 08:00 Resp 25 H 02/18/22 08:00 BP 112/57 02/18/22 08:00 Pulse Ox 97 02/18/22 08:00 FiO2 38 02/17/22 11:00 Intake & Output 02/17/22 02/18/22 02/18/22 18:59 06:59 18:59 Intake Total 979.612 380.543 398.656 Output Total 2110 1855 150 Balance -1130.388 -1474.457 248.656 Weight 122 kg Intake: IV 470 270 150 .9 10 240 240 40 Invasive Line 6 30 30 10 Magnesium Sulfate-D5w Pmx 200 1 gm In Dextrose/Water 1 100ml.bag @ 100 mls/hr IVPB Q1H [facility] Rx#: [id number] Sodium Ferric Gluconat- 100 Sucrose 125 mg In Sodium Chloride 0.9% 100 ml @ 100 mls/hr IVPB DAILY [facility] Rx#:[id number] Intake, IV Titration 69.612 110.543 8.656 Amount Dexmedetomidine/0.9% NaCl 69.612 110.543 8.656 (Pmx) 400 mcg In Empty Bag 1 bag @ 0.2 MCG/KG/HR 5.525 mls/hr IV .[id number] [facility] Rx#:[id number] Oral 440 240 Output: Urine 2110 1855 150 Other: Voiding Method Indwelling Catheter Indwelling Catheter - Exam Alert, pleasant 36-year-old female. No acute distress, oriented 3. No conve rsational dyspnea or use of accessory muscles. Currently on AOx3 , 5 L NC HEENT examination is grossly unremarkable. Neck supple. Full range of motion. No adenopathy thyromegaly or neck vein dist ention. Cardiovascular examination reveals regular rhythm rate. S1-S2 normal. No S3 or S4. No discernible murmur noted. Lungs reveal few scattered bilateral rhonchi. No wheezes. No crackles. Breath sounds are equal bilaterally. . Abdomen soft bowel sounds are heard. No masses or tenderness. Extremities are intact. No cyanosis clubbing or edema.the patient has evidence of foot drop bilaterally along with muscle atrophy, increased edema in the left lower extremity is placed in a immobilizer Skin is without rash or lesion. Neurologic examination is brief but nonfocal. - Labs CBC & Chem 7: 02/18/22 05:25 02/18/22 05:25 Labs: Abnormal Lab Results - Last 24 Hours (Table) 02/17/22 02/17/22 02/17/22 Range/Units 11:32 11:42 11:42 RBC 2.66 L (3.80-5.40) m/uL Hgb 7.7 L (11.4-16.0) gm/dL Hct 24.1 L (34.0-46.0) % MCHC (31.0-37.0) g/dL RDW 16.8 H (11.5-15.5) % Lymphocytes # 0.7 L (1.0-4.8) k/uL BUN 59 H (7-17) mg/dL Creatinine 3.43 H (0.52-1.04) mg/dL Glucose 110 H (74-99) mg/dL POC Glucose (mg/dL) 121 H (70-110) mg/dL Calcium 7.8 L (8.4-10.2) mg/dL Magnesium (1.6-2.3) mg/dL 02/17/22 02/17/22 02/17/22 Range/Units 16:18 18:54 20:00 RBC (3.80-5.40) m/uL Hgb (11.4-16.0) gm/dL Hct (34.0-46.0) % MCHC (31.0-37.0) g/dL RDW (11.5-15.5) % Lymphocytes # (1.0-4.8) k/uL BUN (7-17) mg/dL Creatinine (0.52-1.04) mg/dL Glucose (74-99) mg/dL POC Glucose (mg/dL) 173 H 135 H (70-110) mg/dL Calcium (8.4-10.2) mg/dL Magnesium 2.4 H (1.6-2.3) mg/dL 02/18/22 02/18/22 Range/Units 05:25 05:25 RBC 2.42 L (3.80-5.40) m/uL Hgb 6.8 L* (11.4-16.0) gm/dL Hct 22.1 L (34.0-46.0) % MCHC 30.6 L (31.0-37.0) g/dL RDW 17.8 H (11.5-15.5) % Lymphocytes # (1.0-4.8) k/uL BUN 56 H (7-17) mg/dL Creatinine 3.53 H (0.52-1.04) mg/dL Glucose (74-99) mg/dL POC Glucose (mg/dL) (70-110) mg/dL Calcium 7.8 L (8.4-10.2) mg/dL Magnesium (1.6-2.3) mg/dL Assessment and Plan Plan: Acute hypoxemic respiratory failure, likely on the basis of either pneumonia, and/or CHF. Pro-calcitonin 1.02. ProBNP 4190.the patient had an acute decompensation and the patient is currently on 100% nonrebreather facemask and the patient is showing diffuse bilateral pulmonary infiltrates consistent with pulmonary edema although noncardiogenic causes cannot be completely ruled out including ARDS. Pulmonary embolism cannot be completely ruled out as the pa tient was taken anticoagulation on outpatient basis and this was stopped . After going through BiPAP and high flow oxygen, the patient has been weaned down to 5 L of oxygen by nasal cannula. She remains on IV Lasix 80 mg every 12 hours. Follow-up chest x-ray is pending. Overall respiratory status is improved. 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 Covered on ertapenem Chronic anemia status post- PRBC transfusion. Most recent hemoglobin 6.8 and needs to be repeated History of CVA. History of deep vein thromboses. Prior history of myocardial infarction. S/P gastric bypass, 2016. History of pancreatitis. History of anxiety/depression. History of hypothyroidism. History of diabetes mellitus. Multiple other medical problems and comorbidities. Acute on chronic anemia/iron deficiency Plan: Continue the patient on Lasix 80 mg IV every 12 hours IV fluids to KVO CONTINUE anticoagulation with Eliquis Repeat hemoglobin and transfuse as needed Keep the Rosado catheter in place Wean down the oxygen flow Discontinue Precedex Continue IV Invanz continue IV iron/Venofer 110 mg 3 doses Monitor hemoglobin and repeat another level at around noontime and meanwhile continue anticoagulation. We'll transfuse if needed continue Klonopin 0.25 mg twice a day and restart her CHLORimipramine 50mg , and psychiatric consultation is really appreciated The goal is to wean off the Precedex as the patient is still having some occasional anger outbursts. We'll continue to follow. Condition is critical. Code status is full
--- NOTE | 2022-02-18 09:09 | XR ---
EXAMINATION TYPE: XR chest 1V portable DATE OF EXAM: 02/18/2022 9:02 AM COMPARISON: Chest radiograph from 3 days prior. TECHNIQUE: XR chest 1V portable Portable AP radiograph of the chest. CLINICAL INDICATION:Female, 36 years old with history of SOB; FINDINGS: Lungs/Pleura: Similar multifocal airspace opacities. No evidence of pneumothorax or pleural effusion. Pulmonary vascularity: Unremarkable. Heart/mediastinum: Cardiomediastinal silhouette is prominent in size. Musculoskeletal: No acute osseous pathology. IMPRESSION: Similar multifocal airspace opacities. Correlate for pulmonary vascular congestion and/or diffuse air space disease.
[2022-02-18] MEDS ORDERED: bisacodyL 10 MG SUPP RECTAL PRN (10:04)
[2022-02-18 11:35] LABS: Glucose,Whole Blood 133 mg/dL (70-110)
[2022-02-18 12:27] LABS: Anisocytosis Slight; HCT 23.6 % (34.0-46.0); HGB 7.3 gm/dL (11.4-16.0); Hypochromasia Marked; MCH 27.9 pg (25.0-35.0); MCHC 30.8 g/dL (31.0-37.0); MCV 90.7 fL (80.0-100.0); Mean Platelet Volume 8.7; Platelet Count 290 k/uL (150-450); Poikilocytosis Moderate; RBC 2.61 m/uL (3.80-5.40); RDW 17.8 % (11.5-15.5)
[2022-02-18 17:22] LABS: Glucose,Whole Blood 172 mg/dL (70-110)
[2022-02-18] MEDS: ERTAPENEM 0.5 GM in SODIUM CHLORIDE 0.9% 50 ML IVPB SCH (17:24)
--- NOTE | 2022-02-18 18:58 | P.PN ---
Progress Note - Text Progress Note Date: 02/18/22 Patient is a 36-year-old female with a known history of CVA with right-sided weakness, cognitive impairment, history of gastric bypass surgery, history of DVT on anticoagulation was sent to ER from [facility] due to altered mental status. Patient had a fall from bed at [facility] yesterday and landed on her bilateral knees. Denied any hitting her head. Patient had x-ray and knee CT done in the ER yesterday showed nondisplaced hairline fracture of the distal femur involving the intercondylar distal femur. She was placed on knee immobilizer and was given Toradol and morphine at 1 AM and was sent back to [facility]. Today morning patient was found to be nonresponsive and difficult to arouse. Patient also received baclofen 5 mg at 5 AM and another 5 mg at 1 PM and also 10 mg at 8 PM. Patient was not discharged back on any medications. Patient has been very lethargic and delayed in answering questions appropriately. Otherwise patient did not have any fever. Patient has been on oxygen at 2 L via nasal cannula since her COVID infection. Does have history of ESBL urinary tract infection. Patient does have CKD with baseline creatinine level around 3.0. Laboratory test showed WBC 8.8 hemoglobin 7.9 and platelets 373 ABG showed pH 7.3 PCO2 53 and PO2 104 Sodium 136 potassium 4.5 chloride 103 bicarb is 26 BUN 39 and creatinine 3.47 Blood sugar is 191 Liver enzymes are not elevated. Albumin 2.8 and troponin x1 negative ammonia level is less than 9 Urinalysis showed cloudy with 2+ protein trace glucose nitrite positive and large leukocyte esterase and elevated WBCs. 02/07/2022 Patient is currently lying alert. Awake alert and oriented. Otherwise patient is screaming with pain. Requesting her Charlton and baclofen to be restarted. No complaints of nausea or vomiting. Tolerating oral diet. Antibiotics changed to Invanz due to prior history of ESBL urinary tract infection. Patient is also on left lower extremity immobilizer due to HiLINE fracture. Patient has been afebrile. But tachycardic. Pulse ox 93% on 2 L oxygen via nasal cannula. Laboratory data showed WBC 9.3 hemoglobin 8.3 and platelets 351 and blood sugar is 226 ID is on board. February 08 through 02/11/2022 patient covered by [facility] physicians. 02/12/2022: I assumed care of the patient today. [36-year-old patient who is a resident of [facility], [facility] - long- term resident. known history of irregular vaginal bleeding - polycystic ovarian syndrome.. multiple DVTs in the past. Following gastric bypass surgery patient had a stroke and myocardial infarction. - resulted in cognitive impairment. poor short-term memory. - bedbound. contracture of the left hand and foot drop on the right leg. history of hyperlipidemia anxiety hypertension hypothyroid diabetes. Patient has a legal guardian Chandrika] Patient on 5 L of nasal cannula which is her baseline. Lethargic but does awaken to answer questions appropriately. Did lose her IV. Midline ordered. Encouraged to take oral fluids. On IV ertapenem. Because of somnolence. Discontinue Daytime baclofen. Resume home dose of Prozac. Also Lyrica that was started in the setting of renal failure were discontinued the same for now 02/13/2022: Patient responded really well to yesterday's medication changes. Fully awake. Able to on a full conversation. Discussed with the patient between pain management and drowsiness. She understands. Patient be going home with 7 days of ertapenem. Oral intake improved 02/14/2022: This morning patient episode of desaturating palpitations anxiety. Don't eat a breakfast. Patient's pulse ox was 96% made the patient breathing to a bag. Anxiety settled down. Patient was on 6 L of nasal cannula. Late in the afternoon patient again desaturated. Was moved to ICU. 02/15/2022: ICU: Patient currently on AIRVO. 45/50. Short of breath. [place] to have CHF versus infiltrate. On IV Lasix. IV Norepinephrine and IV Precedex. Also on IV ertapenem. 02/16/2022: ICU. Remains on AIRVO. 40 L and 45%. Given lactulose. Because of episodes of agitation being put on Precedex. Does sit up in a chair for 2-1/2 hours. Psych was consulted. Remains on IV ertapenem and IV Lasix. Breathing a bit better. 02/17/2022: ICU. Patient is off Precedex. Psychiatry-started the patient H aldol. On 15 L nasal cannula. Mouth breathing. Did eat well. Complaining of a chronic pain. Counseled. 02/18/2022: ICU. Looking well. Sitting on bed. Eating. On 5 L nasal cannula. Chronic pain. More cheerful. IV ertapenem. On IV Lasix 80 mg every 12. Had a good BM yesterday Active Medications Acetaminophen (Acetaminophen Tab 325 Mg Tab) 650 mg PO Q6HR PRN PRN Reason: Fever and/ or MILD Pain Last Admin: 02/17/22 20:36 Dose: 650 mg Hydrocodone Bitart/Acetaminophen (Hydrocodone/Apap 7.5-325mg 1 Each Tab) 1 each PO Q6HR PRN PRN Reason: MODERATE TO SEVERE Pain Last Admin: 02/18/22 14:44 Dose: 1 each Apixaban (Apixaban 2.5 Mg Tablet) 2.5 mg PO BID [facility]; Protocol Last Admin: 02/18/22 08:41 Dose: 2.5 mg Atorvastatin Calcium (Atorvastatin 20 Mg Tab) 20 mg PO HS@1999 [facility] Last Admin: 02/17/22 20:29 Dose: 20 mg Baclofen (Baclofen 10 Mg Tab) 10 mg PO HS@1999 [facility] Last Admin: 02/17/22 20:29 Dose: 10 mg Bisacodyl (Bisacodyl 10 Mg Supp) 10 mg RECTAL DAILY PRN PRN Reason: Constipation Clomipramine HCl (Clomipramine 50 Mg Cap) 50 mg PO [facility] Last Admin: 02/17/22 20:30 Dose: 50 mg Clonazepam (Clonazepam 0.5 Mg Tab) 0.25 mg PO BID [facility] Last Admin: 02/18/22 08:41 Dose: 0.25 mg Darbepoetin Kurtis (Darbepoetin Ukrtis 25 Mcg/0.42 Ml Syringe) 25 mcg SQ Q7D [facility] Fluoxetine HCl (Fluoxetine Hcl 20 Mg Cap) 20 mg PO DAILY [facility] Last Admin: 02/18/22 08:41 Dose: 20 mg Furosemide (Furosemide 10 Mg/Ml 10 Ml Vial) 80 mg IV Q12HR [facility] Last Admin: 02/18/22 08:42 Dose: 80 mg Haloperidol Lactate (Haloperidol Lactate 5 Mg/Ml 1 Ml Vial) 1 mg IVP Q4HR PRN PRN Reason: Agitation or Acute Psychosis Last Admin: 02/18/22 14:44 Dose: 1 mg Ertapenem 0.5 gm/ Sodium (Chloride) 50 mls @ 100 mls/hr IVPB Q24H [facility] Last Admin: 02/18/22 17:24 Dose: 100 mls/hr Insulin Aspart (Insulin Aspart (Novolog) 100 Unit/Ml Vial) 0 unit SQ ACHS [facility]; Protocol Last Admin: 02/18/22 17:30 Dose: 2 unit Insulin Detemir (Insulin Detemir (Levemir) 100 Unit/Ml Syr) 27 unit SQ HS@1999 [facility] Last Admin: 02/17/22 20:43 Dose: 27 unit Levothyroxine Sodium (Levothyroxine 25 Mcg Tab) 25 mcg PO HS@1999 [facility] Last Admin: 02/17/22 20:30 Dose: 25 mcg Melatonin (Melatonin 5 Mg Tablet) 5 mg PO HS PRN PRN Reason: Insomnia Last Admin: 02/18/22 00:06 Dose: 5 mg Metoprolol Succinate (Metoprolol Succinate (Er) 50 Mg Tab.Er.24h) 50 mg PO DAILY [facility] Last Admin: 02/18/22 08:41 Dose: 50 mg Miscellaneous Information (Magnesium Replacement Protocol 1 Each Misc) 1 each MISCELLANE DAILY PRN; Protocol PRN Reason: Per Protocol Naloxone HCl (Naloxone 0.4 Mg/Ml 1 Ml Vial) 0.2 mg IV Q2M PRN PRN Reason: Opioid Reversal Sodium Bicarbonate (Sodium Bicarbonate Tab 650 Mg Tab) 650 mg PO BID [facility] Last Admin: 02/18/22 08:41 Dose: 650 mg Sodium Chloride (Sodium Chloride 0.65% Nasal [place] 44 Ml Btl) 2 spray NASAL QID PRN PRN Reason: Dry Nasal Passages Last Admin: 02/17/22 18:02 Dose: 2 spray Past medical history to include: Stroke resulting in decreased memory (contracture, following, in 2015 following surgery, DVT, CT, gastric bypass in 2016, anxiety depression, muscle spasms, irregular menstrual bleeding, hypertension, hypothyroid chronic pain in the hands nor back Social history: Patient is a long-term resident of [facility] on, no smoking. Did smoke marijuana in high school. Pretty much bedbound. Has a legal guardian Chandrika Physical examination: VITAL SIGNS: 98.7, 89, 13, 100 x 69, 95% on 5 L GENERAL: Propped up in bed, eating, more comfortable EYES: Pupils equal. Conjunctiva pale. HEENT: External appearance of nose and ears normal, oral cavity grossly normal. NECK: JVD unable to assess masses not palpable. HEART: Heart sounds are muffled; no edema. LUNGS: Respiratory rate normal; distant breath sounds. ABDOMEN: Soft, nontender, liver spleen not palpable, no masses palpable. PSYCH: Answering questions appropriately. Anxiety better NEUROLOGICAL: [Cranial nerves grossly intact; no facial asymmetry, contracture of the left hand. Right Foot drop INVESTIGATIONS, reviewed in the clinical context: 02/18/2022: White count 7 hemoglobin 7.3 platelets 290 potassium 3.9. 56 creatinine 3.53 02/17/2022: White count 5.1 hemoglobin 7.7 potassium 4. 59 creatinine 3.43 02/16/2022: White count 7.4 hemoglobin 7.6 potassium 4.3 BUN 60 creatinine 3.40 Chest x-ray film personally reviewed by me-venous prominence 02/15/2022: White count 7.2 hemoglobin 7.8 platelets 310. Potassium 4.9 BUN 54 creatinine 3.51 Venous Doppler: Negative for DVT Assessment plan: -Acute hypoxic respiratory failure from pulmonary edema versus pneumonia: Better Down to 5 L nasal cannula -Probable pneumonia, suspected gram-negative organism IV ertapenem -Acute fluid overload Patient has been receiving IV Lasix -Altered mental status change-metabolic and toxic neuropathy.mainly drug- induced: Improved Daytime dose of baclofen discontinued. Lyrica that was started in the hospital discontinued. -Acute UTI with cystitis from ESBL IV ertapenem -Chronic hypoxic respiratory failure from obesity ventilation syndrome. Patient is on 5 L oxygen at baseline -Chronic medical debility, patient is not ambulatory - obesity BMI 37 -Chronic left hand contracture, right foot drop -Chronic multiple DVTs Outpatient eliquis 5 mg twice a day. -Hyperlipidemia Lipitor 20 mg daily at bedtime -Muscle spasm Baclofen 10 mg daily at bedtime -Essential hypertension Toprol-XL -Diabetes mellitus type 2, chronic low insulin On Lantus,. Follow Accu-Cheks -Chronic pain in the left hand and lower back. Charlton 7.5 every 12 when necessary -Anxiety depression Patient on Klonopin 0.5 mg daily at bedtime Prozac 20 mg daily-outpatient -Bilateral nonobstructing renal calculi,-asymptomatic -Chronic kidney disease stage 4 from obstructive uropathy with a history of left ureteral stent. Follow renal function -Right renal atrophy ICU. 15 L oxygen. IV ertapenem. Patient is off Precedex , IV Lasix. Psychia trist added Haldol. Patient reassured. Not go and need further pain medications. Patient really easily becomes encephalopathic.
[2022-02-18 20:47] LABS: Glucose,Whole Blood 205 mg/dL (70-110)
[2022-02-18] MEDS: INSULIN DETEMIR (LEVEMIR) 100 UNIT/ML SYR SQ SCH (21:08)
[2022-02-18] MEDS: LEVOTHYROXINE 25 MCG TAB PO SCH (21:09)
[2022-02-18] MEDS: BACLOFEN 10 MG TAB PO SCH (21:09)
[2022-02-18] MEDS: ATORVASTATIN 20 MG TAB PO SCH (21:09)
[2022-02-18] MEDS ORDERED: DARBEPOETIN ALFA 25 MCG/0.42 ML SYRINGE SQ SCH (22:00)
--- NOTE | 2022-02-18 23:11 | P.PN ---
Progress Note - Text Progress Note Date: 02/18/22 Psychiatry consult follow-up note: Interval history: Patient was seen resting in her ICU bed today and she appeared to be in pleasant mood, was agreeable to speak with this telegraphic typewriter repairer. Mentation is improved today, she is more alert and oriented to person, place, month/year which is improved from out last assessment. At this time patient denies any suicidal or homicidal ideation, intent or plan. Denies any auditory or visual hallucinations. Patient denies any side effects from the medications and has been compliant with meds. MENTAL STATUS EXAM: General Appearance: Patient appears to be stated age, morbidly obese, disheveled, laying in ICU bed with soft restraints and high flow oxygen. Behavior: Patient is calmly lying in bed without any agitated behavior at time of assessment. Speech: Patient's speech is fluent and non-pressured. Mood/Affect: Patient reports their mood is "good", affect is stable and congruent. Suicidality/Homicidality: Patient denies having any suicidal or homicidal ideation intent or plan. Perceptions: Patient denies any visual hallucinations and denies any auditory hallucinations Though content/process: There is no evidence of any delusional thought content and thought process is linear. Memory and concentration: AOX3, oriented to person, place, month/year. Judgment and insight: Improving mildly IMPRESSIONS: Delirium, multifactorial (multiple medical comorbidities) - improving Unspecified anxiety disorder Unspecified depressive disorder Rule out intellectual disability PLAN: -At this time patient DOES NOT meet criteria for inpatient psychiatric admission. -Patient DOES NOT have decision making capacity at this time and is unable to reason through and communicate/appreciate the risks, benefits and alternatives to treatment. -Delirium precautions recommended with patient including - avoiding use of narcotics and PARACHUTE INSPECTOR sedatives, limit anticholinergic medications when possible, frequent re-orientation, minimize use of restraints, open window shades during the day and close them at night -Would recommend the following medication changes/additions: Continue Klonopin 0.25 mg BID for anxiety. Continue Haldol 1 mg Q4H PRN for agitation/psychosis. Monitor for EPS, respiratory depression, and hold if appears oversedated. -Continue to monitor safety and initiate 1:1 sitter if safety concerns arise. -Psychiatry will sign off. -Please contact with any questions.
[2022-02-19] MEDS: ACETAMINOPHEN TAB 325 MG TAB PO PRN (00:36)
[2022-02-19] MEDS: HYDROcodone/APAP 7.5-325MG 1 EACH TAB PO PRN ×3 (03:18→20:10)
[2022-02-19 06:51] LABS: Glucose,Whole Blood 136 mg/dL (70-110)
[2022-02-19 07:55] LABS: African American GFR (CKD) 20 (>60 ml/min/1.73 sqM); Anion Gap 7 mmol/L; Blood Urea Nitrogen 53 mg/dL (7-17); Calcium 7.1 mg/dL (8.4-10.2); Carbon Dioxide 28 mmol/L (22-30); Chloride 105 mmol/L (98-107); Glucose 125 mg/dL (74-99); Non-African American GFR(CKD) 17 (>60 ml/min/1.73 sqM); Potassium 4.3 mmol/L (3.5-5.1); Sodium 140 mmol/L (137-145)
--- NOTE | 2022-02-19 07:58 | P.CNOR ---
History of Present Illness - [facility] Consult date: 02/19/22 Consult reason: fracture History of present illness: 36 yo female with left distal femur fracture, non displaced. Pt is non ambulatory. Exam is stable from previous consult. Would recommend NWB LLE. Maintain knee immobilizer and write for IROM out pt locked in extension. Pt is stable per ORtho to DC to rehab and follow up in office. Past Medical History Past Medical History: CVA/TIA, Deep Vein Thrombosis (DVT), Myocardial Infarction ([place]) Additional Past Medical History / Comment(s): morbid obesity, pancreatitis, history of coma - 10/24/14 - until end of december after suffering from a stroke. Last Myocardial Infarction Date:: 10/2014 History of Any Multi-Drug Resistant Organisms: ESBL, Other MDRO Year Discovered:: 07/16/20 ESBL E.coli MDRO Source:: Urine-ESBL Past Surgical History: Cholecystectomy Additional Past Surgical History / Comment(s): Cystoscopy with placement of left double-J catheter 02/16/2018, Gastric bypass 2015 Past Anesthesia/Blood Transfusion Reactions: No Reported Reaction Past Psychological History: Anxiety, Depression, Panic Disorder Smoking Status: Never smoker Past Alcohol Use History: None Reported Additional Past Alcohol Use History / Comment(s): patient smoked in high school Past Drug Use History: Marijuana - Past Family History Father History Unknown: Yes Family Medical History: Cancer Additional Family Medical History / Comment(s): lung Medications and Allergies Home Medications Medication Instructions Recorded Confirmed Type FLUoxetine HCL [PROzac] 20 mg PO DAILY 02/15/18 02/06/22 History Levothyroxine Sodium [Synthroid] 25 mcg PO HS@199902/15/18 02/06/22 History Multivitamins, Thera [Multivitamin 1 tab PO DAILY 02/15/18 02/06/22 History (formulary)] Acetaminophen Tab [Tylenol] 650 mg PO Q6H PRN 09/03/18 02/06/22 History Baclofen 10 mg PO HS@199907/25/20 02/06/22 History Insulin Glargine,Hum.rec.anlog 27 unit SQ HS@199907/25/20 02/06/22 History [Lantus Solostar Pen] Sennosides/Docusate Sodium [Senna 2 cap PO HS@199907/25/20 02/06/22 History Plus 8.6-50 mg Softgel] amLODIPine [Norvasc] 5 mg PO DAILY 07/25/20 02/06/22 History carvediloL [Coreg] 3.125 mg PO BID 07/25/20 02/06/22 History Atorvastatin [Lipitor] 20 mg PO HS@199909/29/20 02/06/22 History clonazePAM [KlonoPIN] 0.5 mg PO HS@199909/29/20 02/06/22 History Darbepoetin Kurtis [Aranesp] 25 mcg SQ MO@2200 01/26/21 02/06/22 History Norethindrone [Chani] 0.35 mg PO DAILY 01/26/21 02/06/22 History clomiPRAMINE [Anafranil] 50 mg PO HS 01/26/21 02/06/22 History Ferrous Sulfate [Feosol] 325 mg PO BID #60 tab 01/31/21 02/06/22 Rx Acetaminophen Tab [Tylenol Tab] 500 mg PO TID@0800,1200,1800 02/06/22 02/06/22 History Apixaban [Eliquis] 5 mg PO BID 02/06/22 02/06/22 History Baclofen 5 mg PO BID@0500,1300 02/06/22 02/06/22 History Ergocalciferol [Vitamin D2 (1250 1,250 mcg PO Q14D 02/06/22 02/06/22 History Mcg = 22260 Iu)] HYDROcodone/APAP 7.5-325MG [[place] 1 tab PO Q8H PRN 02/06/22 02/06/22 History 7.5-325] Magnesium Hydroxide [Milk of 2,400 mg PO Q72H PRN 02/06/22 02/06/22 History Magnesia] Melatonin 5 mg PO HS@199902/06/22 02/06/22 History Na Phos,M-B/Na Phos,Di-Ba [[place]leet 133 ml RECTAL DAILY PRN 02/06/22 02/06/22 History Adult] Sodium Bicarbonate 650 mg PO BID 02/06/22 02/06/22 History bisacodyL [Dulcolax] 10 mg RECTAL DAILY PRN 02/06/22 02/06/22 History glipiZIDE XL [Glucotrol XL] 2.5 mg PO DAILY@0700 02/06/22 02/06/22 History polyethylene glycoL 3350 [Miralax] 17 gm PO DAILY 02/06/22 02/06/22 History Allergies Allergy/AdvReac Type Severity Reaction Status Date / Time aspirin Allergy Rash/Hives Verified 02/06/22 10:50 sertraline HCl [From Zoloft] Allergy Unknown Verified 02/06/22 10:50 zolpidem tartrate Allergy Unknown Verified 02/06/22 10:50 [From Ambien] gabapentin [From Neurontin] AdvReac Severe SEVERE Verified 02/06/22 10:50 AGITATION ibuprofen [From Motrin] AdvReac AVOIDS D/T Verified 02/06/22 10:50 KIDNEY FUNCTION Physical Examination Osteopathic Statement: *. No significant issues noted on an osteopathic structural exam other than those noted in the History and Physical/Consult. Results - Labs Labs: Abnormal Lab Results - Last 24 Hours (Table) 02/18/22 02/18/22 02/18/22 Range/Units 08:18 11:33 11:53 RBC 2.61 L (3.80-5.40) m/uL Hgb 7.3 L (11.4-16.0) gm/dL Hct 23.6 L (34.0-46.0) % MCHC 30.8 L (31.0-37.0) g/dL RDW 17.8 H (11.5-15.5) % BUN (7-17) mg/dL Creatinine (0.52-1.04) mg/dL Glucose (74-99) mg/dL POC Glucose (mg/dL) 133 H (70-110) mg/dL Calcium (8.4-10.2) mg/dL Crossmatch See Detail 02/18/22 02/18/22 02/19/22 Range/Units 17:19 20:46 06:22 RBC (3.80-5.40) m/uL Hgb (11.4-16.0) gm/dL Hct (34.0-46.0) % MCHC (31.0-37.0) g/dL RDW (11.5-15.5) % BUN 53 H (7-17) mg/dL Creatinine 3.26 H (0.52-1.04) mg/dL Glucose 125 H (74-99) mg/dL POC Glucose (mg/dL) 172 H 205 H (70-110) mg/dL Calcium 7.1 L (8.4-10.2) mg/dL Crossmatch 02/19/22 Range/Units 06:49 RBC (3.80-5.40) m/uL Hgb (11.4-16.0) gm/dL Hct (34.0-46.0) % MCHC (31.0-37.0) g/dL RDW (11.5-15.5) % BUN (7-17) mg/dL Creatinine (0.52-1.04) mg/dL Glucose (74-99) mg/dL POC Glucose (mg/dL) 136 H (70-110) mg/dL Calcium (8.4-10.2) mg/dL Crossmatch H & H 02/06/22 02/07/22 02/07/22 Range/Units 09:52 06:16 20:14 Hgb 7.9 L 6.8 L* 8.3 L (11.4-16.0) gm/dL Hct 26.0 L 23.1 L 27.0 L (34.0-46.0) % 02/08/22 02/09/22 02/10/22 Range/Units 08:02 04:44 06:02 Hgb 8.1 L 7.0 L 6.9 L* (11.4-16.0) gm/dL Hct 26.3 L 22.6 L 23.0 L (34.0-46.0) % 02/11/22 02/12/22 02/14/22 Range/Units 07:17 05:56 10:37 Hgb 8.2 L 8.3 L 9.3 L (11.4-16.0) gm/dL Hct 26.0 L 28.2 L 31.3 L (34.0-46.0) % 02/15/22 02/16/22 02/16/22 Range/Units 05:49 06:35 11:59 Hgb 7.8 L D 6.8 L* 7.6 L (11.4-16.0) gm/dL Hct 26.4 L 22.8 L 24.6 L (34.0-46.0) % 01/09/0202/18/22 02/18/22 Range/Units 11:42 05:25 11:53 Hgb 7.7 L 6.8 L* 7.3 L (11.4-16.0) gm/dL Hct 24.1 L 22.1 L 23.6 L (34.0-46.0) % Coagulation 02/06/22 02/14/22 Range/Units 09:52 10:37 INR 1.0 0.9 (<1.2) Result Diagrams: 02/18/22 11:53 02/19/22 06:22
--- NOTE | 2022-02-19 08:15 | P.PN ---
Subjective Progress Note Date: 02/18/22 Principal diagnosis: Urinary tract infection Patient is a 36-year-old female with a past medical history significant for cognitive impairment CVA with right-sided weakness and a history of gastric bypass surgery patient was sent to the ER from the [facility] for evaluation of mental status changes, patient did have a positive UA concerning for possible symptomatic urinary tract infection with a previous history of ESBL E. coli. On today's evaluation that is 02/18/2022, the patient remains to be afebrile, patient is breathing comfortably and is down to 5 L high flow oxygen , the patient denies any chest pain or worsening cough no abdominal pain and no diarrhea has been reported Objective - Vital Signs Vital signs: Vital Signs Temp 98.7 F 02/18/22 14:00 Pulse 102 H 02/18/22 14:00 Resp 16 02/18/22 14:00 BP 112/63 02/18/22 14:00 Pulse Ox 96 02/18/22 14:00 FiO2 38 02/17/22 11:00 Intake & Output 02/17/22 02/18/22 02/18/22 18:59 06:59 18:59 Intake Total 979.612 380.543 878.656 Output Total 2110 1855 775 Balance -1130.388 -1474.457 103.656 Weight 122 kg Intake: IV 470 270 390 .9 10 240 240 60 Invasive Line 6 30 30 20 Invasive Line 7 10 Magnesium Sulfate-D5w Pmx 200 1 gm In Dextrose/Water 1 100ml.bag @ 100 mls/hr IVPB Q1H [facility]ILDER Rx#: [id number] Sodium Ferric Gluconat- 300 Sucrose 125 mg In Sodium Chloride 0.9% 100 ml @ 100 mls/hr IVPB DAILY [facility]IL[facility] Rx#:[id number] Intake, IV Titration 69.612 110.543 8.656 Amount Dexmedetomidine/0.9% NaCl 69.612 110.543 8.656 (Pmx) 400 mcg In Empty Bag 1 bag @ 0.2 MCG/KG/HR 5.525 mls/hr IV .Q18H6M [facility]ILDER Rx#:[id number] Oral 440 480 Output: Urine 2110 1855 775 Other: Voiding Method Indwelling Catheter Indwelling Catheter Indwelling Catheter - Exam GENERAL DESCRIPTION: A middle-age female lying in bed in no distress RESPIRATORY SYSTEM: Unlabored breathing , decreased breath sounds at bases HEART: S1 S2 regular rate and rhythm , ABDOMEN: Soft , no tenderness EXTREMITIES: No edema feet - Labs CBC & Chem 7: 02/18/22 11:53 02/19/22 06:22 Labs: Abnormal Lab Results - Last 24 Hours (Table) 02/17/22 02/17/22 02/18/22 Range/Units 18:54 20:00 05:25 RBC 2.42 L (3.80-5.40) m/uL Hgb 6.8 L* (11.4-16.0) gm/dL Hct 22.1 L (34.0-46.0) % MCHC 30.6 L (31.0-37.0) g/dL RDW 17.8 H (11.5-15.5) % BUN (7-17) mg/dL Creatinine (0.52-1.04) mg/dL POC Glucose (mg/dL) 135 H (70-110) mg/dL Calcium (8.4-10.2) mg/dL Magnesium 2.4 H (1.6-2.3) mg/dL Crossmatch 02/18/22 02/18/22 02/18/22 Range/Units 05:25 08:18 11:33 RBC (3.80-5.40) m/uL Hgb (11.4-16.0) gm/dL Hct (34.0-46.0) % MCHC (31.0-37.0) g/dL RDW (11.5-15.5) % BUN 56 H (7-17) mg/dL Creatinine 3.53 H (0.52-1.04) mg/dL POC Glucose (mg/dL) 133 H (70-110) mg/dL Calcium 7.8 L (8.4-10.2) mg/dL Magnesium (1.6-2.3) mg/dL Crossmatch See Detail 02/18/22 02/18/22 Range/Units 11:53 17:19 RBC 2.61 L (3.80-5.40) m/uL Hgb 7.3 L (11.4-16.0) gm/dL Hct 23.6 L (34.0-46.0) % MCHC 30.8 L (31.0-37.0) g/dL RDW 17.8 H (11.5-15.5) % BUN (7-17) mg/dL Creatinine (0.52-1.04) mg/dL POC Glucose (mg/dL) 172 H (70-110) mg/dL Calcium (8.4-10.2) mg/dL Magnesium (1.6-2.3) mg/dL Crossmatch Assessment and Plan (1) UTI (urinary tract infection) Current Visit: No Status: Acute Code(s): N39.0 - URINARY TRACT INFECTION, SITE NOT SPECIFIED SNOMED Code(s): 19244222 Plan: 1patient is in the hospital with mental status changes weakness and a fall which is likely multifactorial in this patient who did have a positive UA some urinary symptoms concerning for symptomatic UTI likely from enteric gram- negative pathogen however the patient do have a history of ESBL E. coli infection and will need to cover for ESBL until the cultures are finalized. 2patient did have elevated BUN and creatinine ultrasound didn't show any obstructive uropathy. 3patient urine has been finalized with ESBL E. coli patient repeat UA still positive , patient is slowly clinically improving and well continue with richard king and monitor clinical course closely Time with Patient: Less than 30
[2022-02-19] MEDS: INSULIN ASPART (NovoLOG) 100 UNIT/ML VIAL SQ SCH ×4 (08:52→21:15)
[2022-02-19] MEDS: APIXABAN 2.5 MG TABLET PO SCH ×2 (08:56→21:13)
[2022-02-19] MEDS: FUROSEMIDE 10 MG/ML 10 ML VIAL IV SCH (08:56)
[2022-02-19] MEDS: METOPROLOL SUCCINATE (ER) 50 MG TAB.ER.24H PO SCH (08:56)
[2022-02-19] MEDS: clonazePAM 0.5 MG TAB PO SCH ×2 (08:56→21:13)
[2022-02-19] MEDS: FLUoxetine HCL 20 MG CAP PO SCH (08:56)
[2022-02-19] MEDS: SODIUM BICARBONATE TAB 650 MG TAB PO SCH ×2 (08:56→21:13)
[2022-02-19 11:38] LABS: Glucose,Whole Blood 129 mg/dL (70-110)
--- NOTE | 2022-02-19 11:42 | P.PN ---
Subjective Progress Note Date: 02/19/22 Principal diagnosis: Dyspnea, hypoxemia, pneumonia, ESBL UTI 36-year-old female initially seen in the emergency department on February 06, for following, and mental status changes. The patient has a previous history of CVA, right-sided deficits, cognitive delay, gastric bypass, and DVT. The patient resides at a local halfway, and she has been there since 2017. She apparently fell, and had an x-ray and computed tomography scan done, of her right knee, which showed a nondisplaced hairline fracture of the distal femur involving the intercondylar distal femur. She was placed in a knee immobilizer, given Toradol and morphine. She was then transferred back to the facility. She apparently was found to be poorly responsive by the nurse at the facility, and for that reason was transported back. We are asked to see her, because apparently she developed shortness of breath, and required oxygen therapy, and a higher rate than she normally getting. She's usually getting 2 L at the halfway, and currently she is on 6 L high flow oxygen, with excellent saturations. The patient is on saline at 75 mL an hour. She is seen today in room 628. White count 9, hemoglobin 8.1, hematocrit 26.3, and platelet count normal. D- dimer was 3.37. Sodium 137, potassium 4.2, chlorides 111, CO2 19, BUN 36, and creatinine 3.19. Interestingly, her N-terminal proBNP is 4190. Testing for an infection such as influenza, respiratory syncytial virus, and coronavirus, all negative. Arterial blood gases, at the day of admission, show pO2 of 104, pCO2 of 53 and pH of 7.3. In addition, she has gram-negative bacilli in her urine, and is currently on ertapenem. Initial chest x-ray on the , shows cardiomegaly, and low lung volumes, without an acute process. Follow-up chest x-ray shows diffuse bilateral infiltrates, which could be consistent with pneumonia or fluid overload. I'm reevaluating this patient today on 02/09/2022 on a general medical floor. She is currently sitting up in bed, on 4 L nasal cannula, in no acute distress. Patient is telling me that she is less short of breath this morning. Denies any cough, fever, orthopnea, chest pain. Vital signs remain stable, however, patient is slightly tachycardic this morning it 115 bpm. Heart rhythm is regular. Urine sample was positive for ESBL on 02/06/2022. She is covered with ertapenem, and infectious disease is following. Procalcitonin yesterday was elevated at 1.02. CBC from today is stable showing some anemia with a hemoglobin of 7, hematocrit 22.6, WBC count 8.6, platelets 296,000. She did receive a unit of PRBCs on 02/07/2022, and there are no overt signs of bleeding. Chest x-ray from yesterday 02/08/2022 shows worsening diffuse bilateral lung infiltrates. Her BNP from yesterday was 4190. Fluid balance over the last 24 hours is -900 ml. Progress note dated 02/10/2022. The patient is seen today in room 527. The patient appears very stable, from the respiratory standpoint. She's on 4 L of oxygen. She's getting saline at 75 mL an hour. We did order a chest x-ray for the morning. White count 10.2, hemoglobin 6.9, hematocrit 23, and platelet count 291,000. Sodium 139, potassium 4.4, chlorides 110, CO2 24, BUN 40, and creatinine 3.21. Urine was positive for ESBL Escherichia coli. Progress note dated 02/11/2022. The patient is seen again today in room 27. She's currently on 5 L of oxygen. She feels very comfortable. She is on saline at 20 mL an hour. Her only complaint today is that her shins hurt. She's not having any respiratory complaints, including wheezing, cough, phlegm production, or shortness of breath. She continues on ertapenem, ESBL E. coli urinary tract infection. White count 8.3, hemoglobin 8.2, hematocrit 26, and platelet count 337,000. Sodium 139, potassium 4.5, chlorides 109, CO2 24, BUN 41, creatinine 3.18. Chest x-ray shows improved findings, as it relates to her airspace opacities. I'm reevaluating this patient today on 02/12/2022 on a general medical floor. She appears fairly comfortable resting in bed, on 5 L nasal cannula. denies any significant shortness of breath, cough, chest pain, fevers.most recent chest x- ray from 02/11/2022 showed improved aeration of the lungs with some persistent multifocal airspace opacities. she is tachycardic with a heart rate of 120 bpm, heart rhythm is regular. blood pressures remains stable and has not required any vasopressors or fluid boluses. CBC from today did show some anemia that he see count 8.1, hemoglobin 8.3, hematocrit 28, platelets 321,000. she has received 2 PRBC transfusions this admission, with the most recent transfusion on 02/10/2022. no overt signs of bleeding. she remains on ertapenem for ESBL coverage in the urine. she remains afebrile. she is not receiving any IV fluids. The patient is seen today 02/13/2022 in follow-up on the regular medical floor. She is currently sitting up in bed. Awake and alert in no acute distress. She is maintaining good O2 saturations in the 90s on 5 L/m per nasal cannula. She has normal saline at 75 ML's per hour. She denies any shortness of breath, cough or congestion. No pulmonary complaints. She is still having some ongoing issues with lower extremity discomfort. She remains on ertapenem for ESBL UTI. Blood sugar 211. On 02/14/2022, I'm seeing this patient for a follow-up. The patient got A team ed twice a day and ultimately the patient got transferred to the intensive care unit because of hypoxic respiratory failure. Currently she is on 100% nonrebreather facemask and her pulse ox is around 96%. Chest x-ray showing smaller lung volumes and evidence of pulmonary edema and diffuse but the pulmonary infiltrates. Note that this 36-year-old female patient has multiple medical problems and comorbidities. She has been in a halfway since 2017. She apparently had a fall and the CAT scan of the lower extremity was done and it showed a nondisplaced hairline fracture of the distal femur involving the intercondylar distal femur on the left and the patient was given a knee immobi lizer. The patient was also given a combination of Toradol and morphine for pain control. She presented to us because of altered mentation. Her proBNP level was elevated at time of admission. The vital screening including influenza, RSV and Covid 19 were all negative. She did have a component of hypercapnic respiratory failure at the time of admission the patient was also diagnosed having a gram-negative UTI which ultimately turned out to be E. coli and this was an ESBL producing organism and the patient was started on IV Invanz. She was on 4 L of O2 by nasal cannula and she decompensated earlier today. The patient's echocardiogram from a recent evaluation showed a preserved LV function and ejection fraction was 50-55%. This is an echocardiogram that was done on 02/09/2022. As far the blood work, the patient's d-dimer is elevated at 5.4 and this could be nonspecific finding and it could be related to infection/sepsis. The BUN is at 50 with a creatinine of 3.3 as the patient has evidence of chronic kidney disease and this is consistent with a component of mild acute on top of chronic kidney failure. WBC count of 10.6 with a hemoglobin of 9.3 and a platelet count of 373. In terms of treatment, the patient is on IV fluids and currently this is running at 75 mL an hour of normal saline. The patient is also on IV Invanz. The patient is on her routine outpatient medications including oral bicarb. On 02/15/2022, I'm seeing the patient for a follow-up. Patient got transferred to the intensive care unit because of an acute on top of chronic hypoxic/hypercapnic respiratory failure. She was severely acidotic with a pH of 7.1. Her chest x-ray showed evidence of diffuse bilateral pulmonary infiltrates along with smaller lung volumes. At that point, the patient was kept on antibiotics and she was started on diuretics with Lasix 80 mg IV every 12 hours. Rosado catheter was also inserted. She is producing adequate amount of urine output in order of 50-70 mL an hour. Currently she is also on Precedex. Noted the patient was requiring BiPAP and she got very agitated while on BiPAP and she was unable to tolerate. BiPAP was switched to high flow oxygen which is currently running at 60 L with an FiO2 of 55%. As far as her agitation, she was offered Precedex which is running at 0.0 0.7 mcg/kg/m. I also wanted to give her Haldol and she received a total of 2 mg IV push. On today's evaluation, she is calm and comfortable. She is resting comfortably in bed with a pulse ox of 93%. Repeat blood gas from this morning shows improvement in her acid base sta tus. PH is at 7.27 with a pCO2 of 51 and pO2 of 80. There is also interval improvement in her chest x-ray findings some limited improvement in her diffuse bilateral pulmonary infiltrates. She is awake and she is following simple commands. The echoes at 7.2 with a hemoglobin 7.8 and a platelet count of 310. Serum bicarb is at 22 with a sodium level of 143 with a potassium level of 4.9. Cultures are negative except for E. coli in the urine and this was an ESBL producing E. coli and the patient is still on IV Invanz. Still has an immobilizer in the left lower extremity. She was restarted on Eliquis and Doppler of the lower extremities were done yesterday and was inconclusive for an acute DVT. Possibility of chronic ecchymosis cannot be completely excluded in the left lower extremity. The patient was unable to tolerate compression of the femoral vein and unable to evaluate the popliteal vein. Examination of the right eye was also difficult. 02/16/2022, the patient remains in the intensive care unit. This morning, she is, comfortable in following commands and answering questions. She remains on high flow oxygen. This morning, she is on a flow of 40 L with an FiO2 of 50%. Her current pulse ox is around 93%. She is diuresing adequately with Lasix and she is receiving 80 mg of IV Lasix every 12 hours. Her fluids balance is negative in the order of 1.5 L. Meanwhile, the patient's creatinine remained stable. Today's creatinine is at 3.4 with a BUN of 60 and a sodium level is at 138. Rosado catheter is in place and the patient is producing adequate amount of urine output. At the same time, there was a concern for lower extremity clots, DVTs, chronic DVTs, and the patient was restarted back on anticoagulation with Eliquis and she is receiving Eliquis at a dose of 2.5 mg by mouth twice a day. Nevertheless, there has been ongoing drop in hemoglobin. We have not witnessed any GI bleed. Hemoglobin is been fluctuating and her hemoglobin was as high as 9.3 on 02/14/2022 and this morning is down to 6.8. We have not witnessed any signs of GI bleeding. At the same time, the patient remains on IV Invanz regarding an ESBL producing E. coli urinary tract infection. She remains on Precedex which is running at 0.8 mcg/kg/m. Note that the patient has had previous issues with iron deficiency and she was being given oral iron and aranesp on outpatient basis. and , the patient is calm and comfortable and she is currently on Precedex at 0.6 mcg/kg/m. The patient is comfortable but she is having some agitation spurs. She was seen by psychiatric yesterday and there advised was essentially to continue what we are already doing with this patient and she was On a combination of Haldol and Klonopin and when necessary imipramine. We are in the process of trying to cut down the Precedex on this patient. Meanwhile, she is diuresing adequately. She continues to have extensive edema in all 4 extremities. She is in negative fluid balance. She is receiving Lasix at a dose of 80 mg IV every 12 hours. The blood work from today is still pending. Blood work from yesterday was noted and the patient had a creatinine of 3.4 which was improving and the BUN was 60 and a sodium level was at 138. She remains on high flow oxygen with 40 L an FiO2 of 45%. The fluid balance is -1.4 L over the past 24 hours pH remains on IV Invanz regarding her E. coli tract infection. She wants to watch [employer]. We are going to facilitate that for her. 02/18/2022, the patient is oxygenating adequately and the patient is currently on 5 L nasal cannula and she was taken off the high flow oxygen. She is doing well. At times she is still getting agitated. Overnight, the patient became restless and agitated. She was started back on Precedex and earlier this morning she was taken off the Precedex and she seems to be calm and comfortable for now. She remains on a combination of Haldol as needed, Klonopin and imipramine. Breathing is nonlabored and the patient is calm and comfortable. She continues to have edema lower extremities bilaterally. Her BUN is at 56 and a creatinine of 3.5 and a sodium level is at 141. She remains on IV Lasix and the patient is receiving Lasix at a dose of 80 mg every 12 hours. Overall fluid balance has been negative over the past few days. No chest pain. No labored breathing. No other new complaints otherwise for now. On a separate note, the hemoglobin has dropped down to 6.8. No evidence of any GI bleeding. The patient continues to be on IV iron. Hemoglobin is going to be repeated and will decide accordingly packed RBC transfusion is needed. The patient remains on IV Invanz. I'm reevaluating this patient today on 02/19/2022 on a general medical floor. She is resting comfortably, up in bed, on 4 L nasal cannula, in no apparent distress. Patient denies any shortness of breath, and there is no conversational dyspnea. Her mentation appears at baseline. She is currently calm and talkative on interview. No emotional outbursts this morning. She is receiving Klonopin and Prozac. Has not received any further doses of haldol in almost 24 hours. Most recent chest x-ray from yesterday shows similar multifocal airspace opacities. Most recent CBC from yesterday shows a WBC count 7, hemoglobin 7.3, hematocrit 23.6, platelet count 290,000. BMP from today shows sodium 140, potassium 4.3, chloride 100, serum CO2 28, BUN 53, creatinine 3.26, glucose 125. Her BNP was 2830. Procalcitonin was mildly elevated at 0.31. She continues to receive ertapenem for a ESBL in the urine. She is also receiving Lasix 80 mg by mouth daily. Her fluid balance is -4 L in the last 24 hours. Patient's vital signs are hemodynamically stable. Objective - Vital Signs Vital signs: Vital Signs Temp 98.0 F 02/19/22 07:12 Pulse 99 02/19/22 07:12 Resp 20 02/19/22 07:12 BP 127/80 02/19/22 07:12 Pulse Ox 96 02/19/22 07:20 FiO2 38 02/17/22 11:00 Intake & Output 02/18/22 02/19/22 02/19/22 18:59 06:59 18:59 Intake Total 878.656 Output Total 775 1800 Balance 103.656 -1800 Intake: IV 390 .9 10 60 Invasive Line 6 20 Invasive Line 7 10 Sodium Ferric Gluconat- 300 Sucrose 125 mg In Sodium Chloride 0.9% 100 ml @ 100 mls/hr IVPB DAILY [facility] Rx#:[id number] Intake, IV Titration 8.656 Amount Dexmedetomidine/0.9% NaCl 8.656 (Pmx) 400 mcg In Empty Bag 1 bag @ 0.2 MCG/KG/HR 5.525 mls/hr IV .[id number] [facility] Rx#:[id number] Oral 480 Output: Urine 775 1800 Other: Voiding Method Indwelling Catheter Diaper Diaper Incontinent Incontinent External Catheter External Catheter # Bowel Movements 1 - Exam No acute distress, oriented 3. HEENT examination is grossly unremarkable. Neck supple. Full range of motion. No adenopathy thyromegaly or neck vein distention. Cardiovascular examination reveals regular rhythm rate. S1-S2 normal. No S3 or S4. No discernible murmur noted. Heart rate 99 bpm. On auscultation of the posterior lung bases there are inspiratory crackles. No wheezes or rhonchi. Breath sounds are equal bilaterally. Currently on 4 L of oxygen. No conversational dyspnea or use of accessory muscles. Abdomen soft bowel sounds are heard. No masses or tenderness. Extremities are intact. patient has evidence of foot drop bilaterally along with muscle atrophy, increased edema in the left lower extremity is placed in a immobilize Skin is without rash or lesion. Neurologic examination is brief but nonfocal. - Labs CBC & Chem 7: 02/18/22 11:53 02/19/22 06:22 Labs: Abnormal Lab Results - Last 24 Hours (Table) 02/18/22 02/18/22 02/18/22 Range/Units 08:18 11:33 11:53 RBC 2.61 L (3.80-5.40) m/uL Hgb 7.3 L (11.4-16.0) gm/dL Hct 23.6 L (34.0-46.0) % MCHC 30.8 L (31.0-37.0) g/dL RDW 17.8 H (11.5-15.5) % BUN (7-17) mg/dL Creatinine (0.52-1.04) mg/dL Glucose (74-99) mg/dL POC Glucose (mg/dL) 133 H (70-110) mg/dL Calcium (8.4-10.2) mg/dL Procalcitonin (0.02-0.09) ng/mL Crossmatch See Detail 02/18/22 02/18/22 02/19/22 Range/Units 17:19 20:46 06:22 RBC (3.80-5.40) m/uL Hgb (11.4-16.0) gm/dL Hct (34.0-46.0) % MCHC (31.0-37.0) g/dL RDW (11.5-15.5) % BUN (7-17) mg/dL Creatinine (0.52-1.04) mg/dL Glucose (74-99) mg/dL POC Glucose (mg/dL) 172 H 205 H (70-110) mg/dL Calcium (8.4-10.2) mg/dL Procalcitonin 0.31 H (0.02-0.09) ng/mL Crossmatch 02/19/22 02/19/22 Range/Units 06:22 06:49 RBC (3.80-5.40) m/uL Hgb (11.4-16.0) gm/dL Hct (34.0-46.0) % MCHC (31.0-37.0) g/dL RDW (11.5-15.5) % BUN 53 H (7-17) mg/dL Creatinine 3.26 H (0.52-1.04) mg/dL Glucose 125 H (74-99) mg/dL POC Glucose (mg/dL) 136 H (70-110) mg/dL Calcium 7.1 L (8.4-10.2) mg/dL Procalcitonin (0.02-0.09) ng/mL Crossmatch Assessment and Plan Assessment: Acute hypoxemic respiratory failure, likely on the basis of either pneumonia, and/or CHF. Pro-calcitonin 1.02. ProBNP 4190.the patient had an acute decompensation and the patient is currently on 100% nonrebreather facemask and the patient is showing diffuse bilateral pulmonary infiltrates consistent with pulmonary edema although noncardiogenic causes cannot be completely ruled out including ARDS. Pulmonary embolism cannot be completely ruled out as the patient was taken anticoagulation on outpatient basis and this was restarted . After going through BiPAP and high flow oxygen, the patient has been weaned down to 4 L of oxygen by nasal cannula. Follow-up chest x-ray noted. 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 Covered on ertapenem Chronic anemia status post- PRBC transfusion. Hemoglobin is stable at 7.3 g/dL History of CVA. History of deep vein thromboses. Prior history of myocardial infarction. S/P gastric bypass, 2016. History of pancreatitis. History of anxiety/depression. History of hypothyroidism. History of diabetes mellitus. Multiple other medical problems and comorbidities. Acute on chronic anemia/iron deficiency Plan: Patient's medications, labs, x-ray were reviewed. Continue ertapenem for ESBL coverage Continue supplemental oxygen to maintain oxygen saturation 92% or greater Continue anticoagulation with Eliquis Patient's mood stabilized maintained on Klonopin and Prozac, with when necessary Haldol for agitation. Psychiatry is following. Increase her activity as tolerated We will continue to follow I have personally seen and examined the patient, performed the documentation and the assessment and plan as written. Number of minutes spent on the visit: 10. Time with Patient: Less than 30
[2022-02-19] MEDS: ERTAPENEM 0.5 GM in SODIUM CHLORIDE 0.9% 50 ML IVPB SCH (16:12)
--- NOTE | 2022-02-19 17:25 | P.PN ---
Progress Note - Text Progress Note Date: 02/19/22 Patient is a 36-year-old female with a known history of CVA with right-sided weakness, cognitive impairment, history of gastric bypass surgery, history of DVT on anticoagulation was sent to ER from [facility] due to altered mental status. Patient had a fall from bed at [facility] yesterday and landed on her bilateral knees. Denied any hitting her head. Patient had x-ray and knee CT done in the ER yesterday showed nondisplaced hairline fracture of the distal femur involving the intercondylar distal femur. She was placed on knee immobilizer and was given Toradol and morphine at 1 AM and was sent back to [facility]. Today morning patient was found to be nonresponsive and difficult to arouse. Patient also received baclofen 5 mg at 5 AM and another 5 mg at 1 PM and also 10 mg at 8 PM. Patient was not discharged back on any medications. Patient has been very lethargic and delayed in answering questions appropriately. Otherwise patient did not have any fever. Patient has been on oxygen at 2 L via nasal cannula since her COVID infection. Does have history of ESBL urinary tract infection. Patient does have CKD with baseline creatinine level around 3.0. Laboratory test showed WBC 8.8 hemoglobin 7.9 and platelets 373 ABG showed pH 7.3 PCO2 53 and PO2 104 Sodium 136 potassium 4.5 chloride 103 bicarb is 26 BUN 39 and creatinine 3.47 Blood sugar is 191 Liver enzymes are not elevated. Albumin 2.8 and troponin x1 negative ammonia level is less than 9 Urinalysis showed cloudy with 2+ protein trace glucose nitrite positive and large leukocyte esterase and elevated WBCs. 02/07/2022 Patient is currently lying alert. Awake alert and oriented. Otherwise patient is screaming with pain. Requesting her [place] and baclofen to be restarted. No complaints of nausea or vomiting. Tolerating oral diet. Antibiotics changed to Invanz due to prior history of ESBL urinary tract infection. Patient is also on left lower extremity immobilizer due to HiLINE fracture. Patient has been afebrile. But tachycardic. Pulse ox 93% on 2 L oxygen via nasal cannula. Laboratory data showed WBC 9.3 hemoglobin 8.3 and platelets 351 and blood sugar is 226 ID is on board. February 08 through 02/11/2022 patient covered by [facility]. 02/12/2022: I assumed care of the patient today. [36-year-old patient who is a resident of [facility], [facility] - long- term resident. known history of irregular vaginal bleeding - polycystic ovarian syndrome.. multiple DVTs in the past. Following gastric bypass surgery patient had a stroke and myocardial infarction. - resulted in cognitive impairment. poor short-term memory. - bedbound. contracture of the left hand and foot drop on the right leg. history of hyperlipidemia anxiety hypertension hypothyroid diabetes. Patient has a legal guardian Chandrika] Patient on 5 L of nasal cannula which is her baseline. Lethargic but does awaken to answer questions appropriately. Did lose her IV. Midline ordered. Encouraged to take oral fluids. On IV ertapenem. Because of somnolence. Discontinue Daytime baclofen. Resume home dose of Prozac. Also Lyrica that was started in the setting of renal failure were discontinued the same for now 02/13/2022: Patient responded really well to yesterday's medication changes. Fully awake. Able to on a full conversation. Discussed with the patient between pain management and drowsiness. She understands. Patient be going home with 7 days of ertapenem. Oral intake improved 02/14/2022: This morning patient episode of desaturating palpitations anxiety. Don't eat a breakfast. Patient's pulse ox was 96% made the patient breathing to a bag. Anxiety settled down. Patient was on 6 L of nasal cannula. Late in the afternoon patient again desaturated. Was moved to ICU. 02/15/2022: ICU: Patient currently on AIRVO. 45/50. Short of breath. [place] to have CHF versus infiltrate. On IV Lasix. IV Norepinephrine and IV Precedex. Also on IV ertapenem. 02/16/2022: ICU. Remains on AIRVO. 40 L and 45%. Given lactulose. Because of episodes of agitation being put on Precedex. Does sit up in a chair for 2-1/2 hours. Psych was consulted. Remains on IV ertapenem and IV Lasix. Breathing a bit better. 02/17/2022: ICU. Patient is off Precedex. Psychiatry-started the patient H aldol. On 15 L nasal cannula. Mouth breathing. Did eat well. Complaining of a chronic pain. Counseled. 02/18/2022: ICU. Looking well. Sitting on bed. Eating. On 5 L nasal cannula. Chronic pain. More cheerful. IV ertapenem. On IV Lasix 80 mg every 12. Had a good BM yesterday 02/19/2022: Moved to the medical floor. Stable. Oral intake fair. 4-5 L nasal cannula. Changed to oral Lasix. Fluid restriction. 2000 mL a day. Will DC Haldol. Spoke with manager case. Active Medications Acetaminophen (Acetaminophen Tab 325 Mg Tab) 650 mg PO Q6HR PRN PRN Reason: Fever and/ or MILD Pain Last Admin: 02/19/22 00:36 Dose: 650 mg Hydrocodone Bitart/Acetaminophen (Hydrocodone/Apap 7.5-325mg 1 Each Tab) 1 each PO Q6HR PRN PRN Reason: MODERATE TO SEVERE Pain Last Admin: 02/19/22 13:48 Dose: 1 each Apixaban (Apixaban 2.5 Mg Tablet) 2.5 mg PO BID [facility]; Protocol Last Admin: 02/19/22 08:56 Dose: 2.5 mg Atorvastatin Calcium (Atorvastatin 20 Mg Tab) 20 mg PO HS@1999 [facility] Last Admin: 02/18/22 21:09 Dose: 20 mg Baclofen (Baclofen 10 Mg Tab) 10 mg PO @1999 [facility] Last Admin: 02/18/22 21:09 Dose: 10 mg Bisacodyl (Bisacodyl 10 Mg Supp) 10 mg RECTAL DAILY PRN PRN Reason: Constipation Clomipramine HCl (Clomipramine 50 Mg Cap) 50 mg PO [facility] Last Admin: 02/18/22 21:11 Dose: 50 mg Clonazepam (Clonazepam 0.5 Mg Tab) 0.25 mg PO BID [facility] Last Admin: 02/19/22 08:56 Dose: 0.25 mg Darbepoetin Kurtis (Darbepoetin Kurtis 25 Mcg/0.42 Ml Syringe) 25 mcg SQ Q7D [facility] Last Admin: 02/18/22 21:50 Dose: 25 mcg Fluoxetine HCl (Fluoxetine Hcl 20 Mg Cap) 20 mg PO DAILY [facility] Last Admin: 02/19/22 08:56 Dose: 20 mg Furosemide (Furosemide 80 Mg Tab) 80 mg PO DAILY [facility] Haloperidol (Haloperidol 2 Mg Tab) 2 mg PO Q6HR PRN PRN Reason: Agitation Ertapenem 0.5 gm/ Sodium (Chloride) 50 mls @ 100 mls/hr IVPB Q24H [facility] Last Admin: 02/19/22 16:12 Dose: 100 mls/hr Insulin Aspart (Insulin Aspart (Novolog) 100 Unit/Ml Vial) 0 unit SQ ACHS [facility]; Protocol Last Admin: 02/19/22 11:50 Dose: Not Given Insulin Detemir (Insulin Detemir (Levemir) 100 Unit/Ml Syr) 27 unit SQ HS@1999 [facility] Last Admin: 02/18/22 21:08 Dose: 27 unit Levothyroxine Sodium (Levothyroxine 25 Mcg Tab) 25 mcg PO HS@1999 [facility] Last Admin: 02/18/22 21:09 Dose: 25 mcg Melatonin (Melatonin 5 Mg Tablet) 5 mg PO HS PRN PRN Reason: Insomnia Last Admin: 02/18/22 21:09 Dose: 5 mg Metoprolol Succinate (Metoprolol Succinate (Er) 50 Mg Tab.Er.24h) 50 mg PO DAILY [facility] Last Admin: 02/19/22 08:56 Dose: 50 mg Miscellaneous Information (Magnesium Replacement Protocol 1 Each Misc) 1 each MISCELLANE DAILY PRN; Protocol PRN Reason: Per Protocol Naloxone HCl (Naloxone 0.4 Mg/Ml 1 Ml Vial) 0.2 mg IV Q2M PRN PRN Reason: Opioid Reversal Sodium Bicarbonate (Sodium Bicarbonate Tab 650 Mg Tab) 650 mg PO BID [facility] Last Admin: 02/19/22 08:56 Dose: 650 mg Sodium Chloride (Sodium Chloride 0.65% Nasal [place] 44 Ml Btl) 2 spray NASAL QID PRN PRN Reason: Dry Nasal Passages Last Admin: 02/17/22 18:02 Dose: 2 spray Past medical history to include: Stroke resulting in decreased memory (contracture, following, in 2015 following surgery, DVT, [place], gastric bypass in 2016, anxiety depression, muscle spasms, irregular menstrual bleeding, hypertension, hypothyroid chronic pain in the hands nor back Social history: Patient is a long-term resident of [facility], no smoking. Did smoke marijuana in high school. Pretty much bedbound. Has a legal guardian Chandrika Physical examination: VITAL SIGNS: 98, 99, 20, 127/80, 96% on 4 L GENERAL: Laying in bed, sleepy, comfortable EYES: Pupils equal. Conjunctiva pale. HEENT: External appearance of nose and ears normal, oral cavity grossly normal. NECK: JVD unable to assess masses not palpable. HEART: Heart sounds are muffled; no edema. LUNGS: Respiratory rate normal; distant breath sounds. ABDOMEN: Soft, nontender, liver spleen not palpable, no masses palpable. PSYCH: Answering questions appropriately. NEUROLOGICAL: [Cranial nerves grossly intact; no facial asymmetry, contracture of the left hand. Right Foot drop INVESTIGATIONS, reviewed in the clinical context: 02/19/2022: Potassium 4.3 creatinine 3.26 procalcitonin 0.31 02/18/2022: White count 7 hemoglobin 7.3 platelets 290 potassium 3.9. 56 creatinine 3.53 02/17/2022: White count 5.1 hemoglobin 7.7 potassium 4. 59 creatinine 3.43 02/16/2022: White count 7.4 hemoglobin 7.6 potassium 4.3 BUN 60 creatinine 3.40 Chest x-ray film personally reviewed by me-venous prominence 02/15/2022: White count 7.2 hemoglobin 7.8 platelets 310. Potassium 4.9 BUN 54 creatinine 3.51 Venous Doppler: Negative for DVT Assessment plan: -Acute hypoxic respiratory failure from pulmonary edema versus pneumonia: Better Down to 5 L nasal cannula - pneumonia, suspected gram-negative organism IV ertapenem -Acute fluid overload Patient has been receiving IV Lasix. Change to Lasix 80 mg daily. Fluid restriction. -Altered mental status change-metabolic and toxic neuropathy.mainly drug- induced: Improved Daytime dose of baclofen discontinued. Lyrica that was started in the hospital discontinued. -Acute UTI with cystitis from ESBL IV ertapenem -Chronic hypoxic respiratory failure from obesity ventilation syndrome. Patient is on 5 L oxygen at baseline -Chronic medical debility, patient is not ambulatory - obesity BMI 37 -Chronic left hand contracture, right foot drop -Chronic multiple DVTs eliquis 2.5 mg twice a day. -Hyperlipidemia Lipitor 20 mg daily at bedtime -Muscle spasm Baclofen 10 mg daily at bedtime -Essential hypertension Toprol-XL -Diabetes mellitus type 2, chronic low insulin On Lantus,. Follow Accu-Cheks -Chronic pain in the left hand and lower back. [place] 7.5 every 12 when necessary -Anxiety depression Patient on Klonopin 0.5 mg daily at bedtime Prozac 20 mg daily-outpatient -Bilateral nonobstructing renal calculi,-asymptomatic -Chronic kidney disease stage 4 from obstructive uropathy with a history of left ureteral stent. Follow renal function -Right renal atrophy DC Haldol if okay with psychiatry. H2 by mouth Lasix. Fluid restriction 2000 mL a day. 3 days of IV ertapenem per ID. Discussed with ID and manager case. Total time spent today about 45 minutes with over 25 minutes of discussion.
[2022-02-19 17:30] LABS: Glucose,Whole Blood 181 mg/dL (70-110)
[2022-02-19 20:02] VITALS: RESP 18
[2022-02-19] MEDS: LEVOTHYROXINE 25 MCG TAB PO SCH (20:10)
[2022-02-19] MEDS: BACLOFEN 10 MG TAB PO SCH (20:10)
[2022-02-19] MEDS: ATORVASTATIN 20 MG TAB PO SCH (20:10)
[2022-02-19 20:14] LABS: Glucose,Whole Blood 305 mg/dL (70-110)
[2022-02-19] MEDS: INSULIN DETEMIR (LEVEMIR) 100 UNIT/ML SYR SQ SCH (21:12)
[2022-02-19] MEDS: MELATONIN 5 MG TABLET PO PRN (21:22)
--- NOTE | 2022-02-19 21:41 | P.PN ---
Subjective Progress Note Date: 02/19/22 Principal diagnosis: Urinary tract infection Patient is a 36-year-old female with a past medical history significant for cognitive impairment CVA with right-sided weakness and a history of gastric bypass surgery patient was sent to the ER from the [facility] for evaluation of mental status changes, patient did have a positive UA concerning for possible symptomatic urinary tract infection with a previous history of ESBL E. coli. On today's evaluation that is 02/19/2022, the patient continues to be afebrile, patient is breathing comfortably on 4L nasal cannula oxygen , the patient denies any chest pain , denies any cough or sputum production no abdominal pain no diarrhea Objective - Vital Signs Vital signs: Vital Signs Temp 98.0 F 02/19/22 07:12 Pulse 99 02/19/22 07:12 Resp 20 02/19/22 07:12 BP 127/80 02/19/22 07:12 Pulse Ox 96 02/19/22 07:20 FiO2 38 02/17/22 11:00 Intake & Output 02/18/22 02/19/22 02/19/22 18:59 06:59 18:59 Intake Total 878.656 Output Total 775 1800 800 Balance 103.656 -1800 -800 Intake: IV 390 .9 10 60 Invasive Line 6 20 Invasive Line 7 10 Sodium Ferric Gluconat- 300 Sucrose 125 mg In Sodium Chloride 0.9% 100 ml @ 100 mls/hr IVPB DAILY [facility] Rx#:[id number] Intake, IV Titration 8.656 Amount Dexmedetomidine/0.9% NaCl 8.656 (Pmx) 400 mcg In Empty Bag 1 bag @ 0.2 MCG/KG/HR 5.525 mls/hr IV .Q18H6M [facility] Rx#:[id number] Oral 480 Output: Urine 775 1800 800 Other: Voiding Method Indwelling Catheter Diaper Diaper Incontinent Incontinent External Catheter External Catheter # Bowel Movements 1 - Exam GENERAL DESCRIPTION: A middle-age female lying in bed in no distress RESPIRATORY SYSTEM: Unlabored breathing , decreased breath sounds at bases HEART: S1 S2 regular rate and rhythm , ABDOMEN: Soft , no tenderness EXTREMITIES: No edema feet - Labs CBC & Chem 7: 02/18/22 11:53 02/19/22 06:22 Labs: Abnormal Lab Results - Last 24 Hours (Table) 02/18/22 02/18/22 02/18/22 Range/Units 11:53 17:19 20:46 RBC 2.61 L (3.80-5.40) m/uL Hgb 7.3 L (11.4-16.0) gm/dL Hct 23.6 L (34.0-46.0) % MCHC 30.8 L (31.0-37.0) g/dL RDW 17.8 H (11.5-15.5) % BUN (7-17) mg/dL Creatinine (0.52-1.04) mg/dL Glucose (74-99) mg/dL POC Glucose (mg/dL) 172 H 205 H (70-110) mg/dL Calcium (8.4-10.2) mg/dL Procalcitonin (0.02-0.09) ng/mL 02/19/22 02/19/22 02/19/22 Range/Units 06:22 06:22 06:49 RBC (3.80-5.40) m/uL Hgb (11.4-16.0) gm/dL Hct (34.0-46.0) % MCHC (31.0-37.0) g/dL RDW (11.5-15.5) % BUN 53 H (7-17) mg/dL Creatinine 3.26 H (0.52-1.04) mg/dL Glucose 125 H (74-99) mg/dL POC Glucose (mg/dL) 136 H (70-110) mg/dL Calcium 7.1 L (8.4-10.2) mg/dL Procalcitonin 0.31 H (0.02-0.09) ng/mL 02/19/22 Range/Units 11:35 RBC (3.80-5.40) m/uL Hgb (11.4-16.0) gm/dL Hct (34.0-46.0) % MCHC (31.0-37.0) g/dL RDW (11.5-15.5) % BUN (7-17) mg/dL Creatinine (0.52-1.04) mg/dL Glucose (74-99) mg/dL POC Glucose (mg/dL) 129 H (70-110) mg/dL Calcium (8.4-10.2) mg/dL Procalcitonin (0.02-0.09) ng/mL Assessment and Plan (1) UTI (urinary tract infection) Current Visit: No Status: Acute Code(s): N39.0 - URINARY TRACT INFECTION, SITE NOT SPECIFIED SNOMED Code(s): 56734291 Plan: 1patient is in the hospital with mental status changes weakness and a fall which is likely multifactorial in this patient who did have a positive UA some urinary symptoms concerning for symptomatic UTI likely from enteric gram- negative pathogen however the patient do have a history of ESBL E. coli infection and will need to cover for ESBL until the cultures are finalized. 2patient did have elevated BUN and creatinine ultrasound didn't show any obstructive uropathy. 3patient urine has been finalized with ESBL E. coli patient repeat UA still positive , patient has shown clinical improvement and received about 10 days of Invanz may consider 3-4 days on discharge discussed with the admitting physician Time with Patient: Less than 30
[2022-02-19] MEDS ORDERED: DARBEPOETIN ALFA 25 MCG/0.42 ML SYRINGE SQ SCH (22:00)
[2022-02-20] MEDS: HYDROcodone/APAP 7.5-325MG 1 EACH TAB PO PRN ×2 (03:43→10:43)
[2022-02-20 07:29] LABS: Glucose,Whole Blood 132 mg/dL (70-110)
[2022-02-20] MEDS: INSULIN ASPART (NovoLOG) 100 UNIT/ML VIAL SQ SCH ×2 (07:55→12:40)
[2022-02-20] MEDS ORDERED: FUROSEMIDE 80 MG TAB PO SCH (09:00)
[2022-02-20] MEDS: APIXABAN 2.5 MG TABLET PO SCH (09:38)
[2022-02-20] MEDS: clonazePAM 0.5 MG TAB PO SCH (09:38)
[2022-02-20] MEDS: METOPROLOL SUCCINATE (ER) 50 MG TAB.ER.24H PO SCH (09:38)
[2022-02-20] MEDS: FLUoxetine HCL 20 MG CAP PO SCH (09:38)
[2022-02-20] MEDS: SODIUM BICARBONATE TAB 650 MG TAB PO SCH (09:38)
[2022-02-20 11:10] LABS: Glucose,Whole Blood 128 mg/dL (70-110)
--- NOTE | 2022-02-20 12:19 | P.PN ---
Subjective Progress Note Date: 02/20/22 Principal diagnosis: Dyspnea, hypoxemia, pneumonia, ESBL UTI 36-year-old female initially seen in the emergency department on February 06, for following, and mental status changes. The patient has a previous history of CVA, right-sided deficits, cognitive delay, gastric bypass, and DVT. The patient resides at a local [facility], and she has been there since 2017. She apparently fell, and had an x-ray and computed tomography scan done, of her right knee, which showed a nondisplaced hairline fracture of the distal femur involving the intercondylar distal femur. She was placed in a knee immobilizer, given Toradol and morphine. She was then transferred back to the facility. She apparently was found to be poorly responsive by the nurse at the facility, and for that reason was transported back. We are asked to see her, because apparently she developed shortness of breath, and required oxygen therapy, and a higher rate than she normally getting. She's usually getting 2 L at the fpc, and currently she is on 6 L high flow oxygen, with excellent saturations. The patient is on saline at 75 mL an hour. She is seen today in room 628. White count 9, hemoglobin 8.1, hematocrit 26.3, and platelet count normal. D- dimer was 3.37. Sodium 137, potassium 4.2, chlorides 111, CO2 19, BUN 36, and creatinine 3.19. Interestingly, her N-terminal proBNP is 4190. Testing for an infection such as influenza, respiratory syncytial virus, and coronavirus, all negative. Arterial blood gases, at the day of admission, show pO2 of 104, pCO2 of 53 and pH of 7.3. In addition, she has gram-negative bacilli in her urine, and is currently on ertapenem. Initial chest x-ray on the , shows cardiomegaly, and low lung volumes, without an acute process. Follow-up chest x-ray shows diffuse bilateral infiltrates, which could be consistent with pneumonia or fluid overload. I'm reevaluating this patient today on 02/09/2022 on a general medical floor. She is currently sitting up in bed, on 4 L nasal cannula, in no acute distress. Patient is telling me that she is less short of breath this morning. Denies any cough, fever, orthopnea, chest pain. Vital signs remain stable, however, patient is slightly tachycardic this morning it 115 bpm. Heart rhythm is regular. Urine sample was positive for ESBL on 02/06/2022. She is covered with ertapenem, and infectious disease is following. Procalcitonin yesterday was elevated at 1.02. CBC from today is stable showing some anemia with a hemoglobin of 7, hematocrit 22.6, WBC count 8.6, platelets 296,000. She did receive a unit of PRBCs on 02/07/2022, and there are no overt signs of bleeding. Chest x-ray from yesterday 02/08/2022 shows worsening diffuse bilateral lung infiltrates. Her BNP from yesterday was 4190. Fluid balance over the last 24 hours is -900 ml. Progress note dated 02/10/2022. The patient is seen today in room 527. The patient appears very stable, from the respiratory standpoint. She's on 4 L of oxygen. She's getting saline at 75 mL an hour. We did order a chest x-ray for the morning. White count 10.2, hemoglobin 6.9, hematocrit 23, and platelet count 291,000. Sodium 139, potassium 4.4, chlorides 110, CO2 24, BUN 40, and creatinine 3.21. Urine was positive for ESBL Escherichia coli. Progress note dated 02/11/2022. The patient is seen again today in room 27. She's currently on 5 L of oxygen. She feels very comfortable. She is on saline at 20 mL an hour. Her only complaint today is that her shins hurt. She's not having any respiratory complaints, including wheezing, cough, phlegm production, or shortness of breath. She continues on ertapenem, ESBL E. coli urinary tract infection. White count 8.3, hemoglobin 8.2, hematocrit 26, and platelet count 337,000. Sodium 139, potassium 4.5, chlorides 109, CO2 24, BUN 41, creatinine 3.18. Chest x-ray shows improved findings, as it relates to her airspace opacities. I'm reevaluating this patient today on 02/12/2022 on a general medical floor. She appears fairly comfortable resting in bed, on 5 L nasal cannula. denies any significant shortness of breath, cough, chest pain, fevers.most recent chest x- ray from 02/11/2022 showed improved aeration of the lungs with some persistent multifocal airspace opacities. she is tachycardic with a heart rate of 120 bpm, heart rhythm is regular. blood pressures remains stable and has not required any vasopressors or fluid boluses. CBC from today did show some anemia that he see count 8.1, hemoglobin 8.3, hematocrit 28, platelets 321,000. she has received 2 PRBC transfusions this admission, with the most recent transfusion on 02/10/2022. no overt signs of bleeding. she remains on ertapenem for ESBL coverage in the urine. she remains afebrile. she is not receiving any IV fluids. The patient is seen today 02/13/2022 in follow-up on the regular medical floor. She is currently sitting up in bed. Awake and alert in no acute distress. She is maintaining good O2 saturations in the 90s on 5 L/m per nasal cannula. She has normal saline at 75 ML's per hour. She denies any shortness of breath, cough or congestion. No pulmonary complaints. She is still having some ongoing issues with lower extremity discomfort. She remains on ertapenem for ESBL UTI. Blood sugar 211. On 02/14/2022, I'm seeing this patient for a follow-up. The patient got A team ed twice a day and ultimately the patient got transferred to the intensive care unit because of hypoxic respiratory failure. Currently she is on 100% nonrebreather facemask and her pulse ox is around 96%. Chest x-ray showing smaller lung volumes and evidence of pulmonary edema and diffuse but the pulmonary infiltrates. Note that this 36-year-old female patient has multiple medical problems and comorbidities. She has been in a [facility]pc since 2017. She apparently had a fall and the CAT scan of the lower extremity was done and it showed a nondisplaced hairline fracture of the distal femur involving the intercondylar distal femur on the left and the patient was given a knee immobi lizer. The patient was also given a combination of Toradol and morphine for pain control. She presented to us because of altered mentation. Her proBNP level was elevated at time of admission. The vital screening including influenza, RSV and Covid 19 were all negative. She did have a component of hypercapnic respiratory failure at the time of admission the patient was also diagnosed having a gram-negative UTI which ultimately turned out to be E. coli and this was an ESBL producing organism and the patient was started on IV Invanz. She was on 4 L of O2 by nasal cannula and she decompensated earlier today. The patient's echocardiogram from a recent evaluation showed a preserved LV function and ejection fraction was 50-55%. This is an echocardiogram that was done on 02/09/2022. As far the blood work, the patient's d-dimer is elevated at 5.4 and this could be nonspecific finding and it could be related to infection/sepsis. The BUN is at 50 with a creatinine of 3.3 as the patient has evidence of chronic kidney disease and this is consistent with a component of mild acute on top of chronic kidney failure. WBC count of 10.6 with a hemoglobin of 9.3 and a platelet count of 373. In terms of treatment, the patient is on IV fluids and currently this is running at 75 mL an hour of normal saline. The patient is also on IV Invanz. The patient is on her routine outpatient medications including oral bicarb. On 02/15/2022, I'm seeing the patient for a follow-up. Patient got transferred to the intensive care unit because of an acute on top of chronic hypoxic/hypercapnic respiratory failure. She was severely acidotic with a pH of 7.1. Her chest x-ray showed evidence of diffuse bilateral pulmonary infiltrates along with smaller lung volumes. At that point, the patient was kept on antibiotics and she was started on diuretics with Lasix 80 mg IV every 12 hours. Rosado catheter was also inserted. She is producing adequate amount of urine output in order of 50-70 mL an hour. Currently she is also on Precedex. Noted the patient was requiring BiPAP and she got very agitated while on BiPAP and she was unable to tolerate. BiPAP was switched to high flow oxygen which is currently running at 60 L with an FiO2 of 55%. As far as her agitation, she was offered Precedex which is running at 0.0 0.7 mcg/kg/m. I also wanted to give her Haldol and she received a total of 2 mg IV push. On today's evaluation, she is calm and comfortable. She is resting comfortably in bed with a pulse ox of 93%. Repeat blood gas from this morning shows improvement in her acid base sta tus. PH is at 7.27 with a pCO2 of 51 and pO2 of 80. There is also interval improvement in her chest x-ray findings some limited improvement in her diffuse bilateral pulmonary infiltrates. She is awake and she is following simple commands. The echoes at 7.2 with a hemoglobin 7.8 and a platelet count of 310. Serum bicarb is at 22 with a sodium level of 143 with a potassium level of 4.9. Cultures are negative except for E. coli in the urine and this was an ESBL producing E. coli and the patient is still on IV Invanz. Still has an immobilizer in the left lower extremity. She was restarted on Eliquis and Doppler of the lower extremities were done yesterday and was inconclusive for an acute DVT. Possibility of chronic ecchymosis cannot be completely excluded in the left lower extremity. The patient was unable to tolerate compression of the femoral vein and unable to evaluate the popliteal vein. Examination of the right eye was also difficult. 02/16/2022, the patient remains in the intensive care unit. This morning, she is, comfortable in following commands and answering questions. She remains on high flow oxygen. This morning, she is on a flow of 40 L with an FiO2 of 50%. Her current pulse ox is around 93%. She is diuresing adequately with Lasix and she is receiving 80 mg of IV Lasix every 12 hours. Her fluids balance is negative in the order of 1.5 L. Meanwhile, the patient's creatinine remained stable. Today's creatinine is at 3.4 with a BUN of 60 and a sodium level is at 138. Rosado catheter is in place and the patient is producing adequate amount of urine output. At the same time, there was a concern for lower extremity clots, DVTs, chronic DVTs, and the patient was restarted back on anticoagulation with Eliquis and she is receiving Eliquis at a dose of 2.5 mg by mouth twice a day. Nevertheless, there has been ongoing drop in hemoglobin. We have not witnessed any GI bleed. Hemoglobin is been fluctuating and her hemoglobin was as high as 9.3 on 02/14/2022 and this morning is down to 6.8. We have not witnessed any signs of GI bleeding. At the same time, the patient remains on IV Invanz regarding an ESBL producing E. coli urinary tract infection. She remains on Precedex which is running at 0.8 mcg/kg/m. Note that the patient has had previous issues with iron deficiency and she was being given oral iron and aranesp on outpatient basis. and , the patient is calm and comfortable and she is currently on Precedex at 0.6 mcg/kg/m. The patient is comfortable but she is having some agitation spurs. She was seen by psychiatric yesterday and there advised was essentially to continue what we are already doing with this patient and she was On a combination of Haldol and Klonopin and when necessary imipramine. We are in the process of trying to cut down the Precedex on this patient. Meanwhile, she is diuresing adequately. She continues to have extensive edema in all 4 extremities. She is in negative fluid balance. She is receiving Lasix at a dose of 80 mg IV every 12 hours. The blood work from today is still pending. Blood work from yesterday was noted and the patient had a creatinine of 3.4 which was improving and the BUN was 60 and a sodium level was at 138. She remains on high flow oxygen with 40 L an FiO2 of 45%. The fluid balance is -1.4 L over the past 24 hours pH remains on IV Invanz regarding her E. coli tract infection. She wants to watch [facility]. We are going to facilitate that for her. 02/18/2022, the patient is oxygenating adequately and the patient is currently on 5 L nasal cannula and she was taken off the high flow oxygen. She is doing well. At times she is still getting agitated. Overnight, the patient became restless and agitated. She was started back on Precedex and earlier this morning she was taken off the Precedex and she seems to be calm and comfortable for now. She remains on a combination of Haldol as needed, Klonopin and imipramine. Breathing is nonlabored and the patient is calm and comfortable. She continues to have edema lower extremities bilaterally. Her BUN is at 56 and a creatinine of 3.5 and a sodium level is at 141. She remains on IV Lasix and the patient is receiving Lasix at a dose of 80 mg every 12 hours. Overall fluid balance has been negative over the past few days. No chest pain. No labored breathing. No other new complaints otherwise for now. On a separate note, the hemoglobin has dropped down to 6.8. No evidence of any GI bleeding. The patient continues to be on IV iron. Hemoglobin is going to be repeated and will decide accordingly packed RBC transfusion is needed. The patient remains on IV Invanz. I'm reevaluating this patient today on 02/19/2022 on a general medical floor. She is resting comfortably, up in bed, on 4 L nasal cannula, in no apparent distress. Patient denies any shortness of breath, and there is no conversational dyspnea. Her mentation appears at baseline. She is currently calm and talkative on interview. No emotional outbursts this morning. She is receiving Klonopin and Prozac. Has not received any further doses of haldol in almost 24 hours. Most recent chest x-ray from yesterday shows similar multifocal airspace opacities. Most recent CBC from yesterday shows a WBC count 7, hemoglobin 7.3, hematocrit 23.6, platelet count 290,000. BMP from today shows sodium 140, potassium 4.3, chloride 100, serum CO2 28, BUN 53, creatinine 3.26, glucose 125. Her BNP was 2830. Procalcitonin was mildly elevated at 0.31. She continues to receive ertapenem for a ESBL in the urine. She is also receiving Lasix 80 mg by mouth daily. Her fluid balance is -4 L in the last 24 hours. Patient's vital signs are hemodynamically stable. I'm reevaluating this patient today on February 20 04/02/2022 on a general medical floor. Patient is resting comfortably, in bed, on 4 L nasal cannula she is in no acute distress. Her oxygen saturation is 100%. She denies any shortness of breath, cough, fever overnight. Patient's mentation is back to baseline, and she is not having any more emotional outbursts. No new chest x- ray to review today. Orthopedics were consulted in regard to her left distal femur fracture that is nondisplaced. No intervention is planned at this time. Repeat urine cultures are negative. She continues to receive ertapenem per infectious disease. She continues receiving diuresis Lasix daily. She is on a 2 L daily fluid restriction. Fluid balance is -2.1 L over the last 24 hours. No new labs to review today. Vital signs remain stable and nasal cannula to be weaned down as tolerated. Objective - Vital Signs Vital signs: Vital Signs Temp 98 F 02/20/22 07:30 Pulse 94 02/20/22 07:30 Resp 18 02/20/22 07:30 BP 132/83 02/20/22 07:30 Pulse Ox 100 02/20/22 07:30 FiO2 38 02/17/22 11:00 Intake & Output 02/19/22 02/20/22 02/20/22 18:59 06:59 18:59 Output Total 1500 650 Balance -1500 -650 Output: Urine 1500 650 Other: Voiding Method Diaper Diaper Diaper Incontinent Incontinent Incontinent External Catheter External Catheter External Catheter # Voids 2 - Exam No acute distress, oriented 3. HEENT examination is grossly unremarkable. Neck supple. Full range of motion. No adenopathy thyromegaly or neck vein distention. Cardiovascular examination reveals regular rhythm rate. S1-S2 normal. No S3 or S4. No discernible murmur noted. Heart rate 99 bpm. On auscultation of the posterior lung bases there are inspiratory crackles. No wheezes or rhonchi. Breath sounds are equal bilaterally. Currently on 4 L of oxygen. No conversational dyspnea or use of accessory muscles. Abdomen soft bowel sounds are heard. No masses or tenderness. Extremities are intact. patient has evidence of foot drop bilaterally along with muscle atrophy, increased edema in the left lower extremity is placed in an immobilizer Skin is without rash or lesion. Neurologic examination is brief but nonfocal. He - Labs CBC & Chem 7: 02/18/22 11:53 02/19/22 06:22 Labs: Abnormal Lab Results - Last 24 Hours (Table) 02/18/22 02/19/22 02/19/22 Range/Units 08:18 17:15 20:13 POC Glucose (mg/dL) 181 H 305 H (70-110) mg/dL Crossmatch See Detail 02/20/22 02/20/22 Range/Units 07:28 11:09 POC Glucose (mg/dL) 132 H 128 H (70-110) mg/dL Crossmatch Assessment and Plan Assessment: Acute hypoxemic respiratory failure, likely on the basis of either pneumonia, and/or CHF. Pro-calcitonin 1.02. ProBNP 4190.the patient had an acute decompensation and the patient is currently on 100% nonrebreather facemask and the patient is showing diffuse bilateral pulmonary infiltrates consistent with pulmonary edema although noncardiogenic causes cannot be completely ruled out including ARDS. Pulmonary embolism cannot be completely ruled out as the patient was taken anticoagulation on outpatient basis and this was restarted . After going through BiPAP and high flow oxygen, the patient has been weaned down to 4 L of oxygen by nasal cannula. Follow-up chest x-ray noted. 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 Covered on ertapenem Chronic anemia status post- PRBC transfusion. Hemoglobin is stable at 7.3 g/dL History of CVA. History of deep vein thromboses. Prior history of myocardial infarction. S/P gastric bypass, 2016. History of pancreatitis. History of anxiety/depression. History of hypothyroidism. History of diabetes mellitus. Multiple other medical problems and comorbidities. Acute on chronic anemia/iron deficiency Plan: Patient's medications, labs, x-ray were reviewed. Continue ertapenem for ESBL coverage per infectious disease Titrate down on supplemental oxygen as tolerated Continue anticoagulation with Eliquis Continue diuresis for now in the form of Lasix 80 mg by mouth daily. Will consider lowering the dose tomorrow. Maintain accurate intake and output continue with 2 L fluid restriction daily Will recheck BMP in the morning Patient's mood stabilized maintained on Klonopin and Prozac, with when necessary Haldol for agitation. Psychiatry is following. Increase her activity as tolerated We will continue to follow I have personally seen and examined the patient, performed the documentation and the assessment and plan as written. Number of minutes spent on the visit: 10. Time with Patient: Less than 30
--- NOTE | 2022-02-20 12:38 | P.DS ---
Providers Date of admission: 02/09/22 11:28 Expected date of discharge: 02/20/22 Attending physician: Dennis Stacy Consults: 02/07/22 10:46 Consult Physician Routine Consulting Provider: Bhupendra Cloud Consult Reason/Comments: history ESBL, UTI Do you want consulting provider notified?: Yes 02/08/22 07:51 Consult Physician Routine Consulting Provider: Rosanna Ortiz Consult Reason/Comments: Respiratory failure Do you want consulting provider notified?: Yes 02/09/22 10:36 Consult Physician Routine Consulting Provider: Parveen Trevino Consult Reason/Comments: fracture Do you want consulting provider notified?: Yes 02/16/22 08:21 Consult Physician Routine Consulting Provider: Moncho Brown Consult Reason/Comments: anger outbrusts; agitation Do you want consulting provider notified?: Yes Primary care physician: [facility] Course: Patient is a 36-year-old female with a known history of CVA with right-sided weakness, cognitive impairment, history of gastric bypass surgery, history of DVT on anticoagulation was sent to ER from [facility] due to altered mental status. Patient had a fall from bed at [facility] yesterday and landed on her bilateral knees. Denied any hitting her head. Patient had x-ray and knee CT done in the ER yesterday showed nondisplaced hairline fracture of the distal femur involving the intercondylar distal femur. She was placed on knee immobilizer and was given Toradol and morphine at 1 AM and was sent back to [facility]. Today morning patient was found to be nonresponsive and difficult to arouse. Patient also received baclofen 5 mg at 5 AM and another 5 mg at 1 PM and also 10 mg at 8 PM. Patient was not discharged back on any medications. Patient has been very lethargic and delayed in answering questions appropriately. Otherwise patient did not have any fever. Patient has been on oxygen at 2 L via nasal cannula since her COVID infection. Does have history of ESBL urinary tract infection. Patient does have CKD with baseline creatinine level around 3.0. Laboratory test showed WBC 8.8 hemoglobin 7.9 and platelets 373 ABG showed pH 7.3 PCO2 53 and PO2 104 Sodium 136 potassium 4.5 chloride 103 bicarb is 26 BUN 39 and creatinine 3.47 Blood sugar is 191 Liver enzymes are not elevated. Albumin 2.8 and troponin x1 negative ammonia level is less than 9 Urinalysis showed cloudy with 2+ protein trace glucose nitrite positive and large leukocyte esterase and elevated WBCs. 02/07/2022 Patient is currently lying alert. Awake alert and oriented. Otherwise patient is screaming with pain. Requesting her Rodessa and baclofen to be restarted. No complaints of nausea or vomiting. Tolerating oral diet. Antibiotics changed to Invanz due to prior history of ESBL urinary tract infection. Patient is also on left lower extremity immobilizer due to HiLINE fracture. Patient has been afebrile. But tachycardic. Pulse ox 93% on 2 L oxygen via nasal cannula. Laboratory data showed WBC 9.3 hemoglobin 8.3 and platelets 351 and blood sugar is 226 ID is on board. February 08 through 02/11/2022 patient covered by [facility] [place] [facility]. 02/12/2022: I assumed care of the patient today. [36-year-old patient who is a resident of [facility], [facility] - long- term resident. known history of irregular vaginal bleeding - polycystic ovarian syndrome.. multiple DVTs in the past. Following gastric bypass surgery patient had a stroke and myocardial infarction. - resulted in cognitive impairment. poor short-term memory. - bedbound. contracture of the left hand and foot drop on the right leg. history of hyperlipidemia anxiety hypertension hypothyroid diabetes. Patient has a legal guardian Chandrika] Patient on 5 L of nasal cannula which is her baseline. Lethargic but does awaken to answer questions appropriately. Did lose her IV. Midline ordered. Encouraged to take oral fluids. On IV ertapenem. Because of somnolence. Discontinue Daytime baclofen. Resume home dose of Prozac. Also Lyrica that was started in the setting of renal failure were discontinued the same for now 02/13/2022: Patient responded really well to yesterday's medication changes. Fully awake. Able to on a full conversation. Discussed with the patient between pain management and drowsiness. She understands. Patient be going home with 7 days of ertapenem. Oral intake improved 02/14/2022: This morning patient episode of desaturating palpitations anxiety. Don't eat a breakfast. Patient's pulse ox was 96% made the patient breathing to a bag. Anxiety settled down. Patient was on 6 L of nasal cannula. Late in the afternoon patient again desaturated. Was moved to ICU. 02/15/2022: ICU: Patient currently on AIRVO. 45/50. Short of breath. [place] to have CHF versus infiltrate. On IV Lasix. IV Norepinephrine and IV Precedex. Also on IV ertapenem. 02/16/2022: ICU. Remains on AIRVO. 40 L and 45%. Given lactulose. Because of episodes of agitation being put on Precedex. Does sit up in a chair for 2-1/2 hours. Psych was consulted. Remains on IV ertapenem and IV Lasix. Breathing a bit better. 02/17/2022: ICU. Patient is off Precedex. Psychiatry-started the patient Haldol. On 15 L nasal cannula. Mouth breathing. Did eat well. Complaining of a chronic pain. Counseled. 02/18/2022: ICU. Looking well. Sitting on bed. Eating. On 5 L nasal cannula. Chronic pain. More cheerful. IV ertapenem. On IV Lasix 80 mg every 12. Had a good BM yesterday 02/19/2022: Moved to the medical floor. Stable. Oral intake fair. 4-5 L nasal cannula. Changed to oral Lasix. Fluid restriction. 2000 mL a day. Will DC Angelica. Spoke with counseling case manager. 02/20/2022: Comfortable. Oral intake good. 4 L nasal cannula. Continue with fluid restriction. Return to rehab today. Special note: Patient always request more pain medications. But if explained she that this leads to her mental status changing and she is finding the same. This should be kept in mind when she asked for pain medications repeatedly. Will need to be given when she is uncomfortable. Once explained she becomes rather comfortable. Past medical history to include: Stroke resulting in decreased memory (contracture, following, in 2015 following surgery, DVT, CT, gastric bypass in 2016, anxiety depression, muscle spasms, irregular menstrual bleeding, hypertension, hypothyroid chronic pain in the hands nor back Social history: Patient is a long-term resident of [facility] on, no smoking. Did smoke marijuana in high school. Pretty much bedbound. Has a legal guardian Chandrika Physical examination: VITAL SIGNS: 98, 94, 18, 132.83, 90% on 4 L GENERAL: Laying in bed,, comfortable EYES: Pupils equal. Conjunctiva pale. HEENT: External appearance of nose and ears normal, oral cavity grossly normal. NECK: JVD unable to assess masses not palpable. HEART: Heart sounds are muffled; no edema. LUNGS: Respiratory rate normal; distant breath sounds. ABDOMEN: Soft, nontender, liver spleen not palpable, no masses palpable. PSYCH: Answering questions appropriately. Mood and affect normal NEUROLOGICAL: [Cranial nerves grossly intact; no facial asymmetry, contracture of the left hand. Right Foot drop INVESTIGATIONS, reviewed in the clinical context: 02/19/2022: Potassium 4.3 creatinine 3.26 procalcitonin 0.31 02/18/2022: White count 7 hemoglobin 7.3 platelets 290 potassium 3.9. 56 creatinine 3.53 02/17/2022: White count 5.1 hemoglobin 7.7 potassium 4. 59 creatinine 3.43 02/16/2022: White count 7.4 hemoglobin 7.6 potassium 4.3 BUN 60 creatinine 3.40 Chest x-ray film personally reviewed by me-venous prominence 02/15/2022: White count 7.2 hemoglobin 7.8 platelets 310. Potassium 4.9 BUN 54 creatinine 3.51 Venous Doppler: Negative for DVT Assessment plan: -Acute hypoxic respiratory failure from pulmonary edema versus pneumonia: Better Down to 5 L nasal cannula - pneumonia, suspected gram-negative organism IV ertapenem: 3 days -Acute fluid overload: Improved Patient has been receiving IV Lasix. Change to Lasix 80 mg daily. Fluid restriction. -Altered mental status change-metabolic and toxic neuropathy.mainly drug- induced: Improved Daytime dose of baclofen discontinued. Lyrica that was started in the hospital discontinued. -Acute UTI with cystitis from ESBL IV ertapenem -Chronic hypoxic respiratory failure from obesity ventilation syndrome. Patient is on 5 L oxygen at baseline -Chronic medical debility, patient is not ambulatory - obesity BMI 37 -Chronic left hand contracture, right foot drop -Chronic multiple DVTs eliquis 2.5 mg twice a day. -Hyperlipidemia Lipitor 20 mg daily at bedtime -Muscle spasm Baclofen 10 mg daily at bedtime -Essential hypertension Toprol-XL -Diabetes mellitus type 2, chronic low insulin On Lantus,. Follow Accu-Cheks -Chronic pain in the left hand and lower back. Rodessa 7.5 every 12 when necessary -Anxiety depression Patient on Klonopin 0.5 mg daily at bedtime Prozac 20 mg daily-outpatient -Bilateral nonobstructing renal calculi,-asymptomatic -Chronic kidney disease stage 4 from obstructive uropathy with a history of left ureteral stent. Follow renal function -Right renal atrophy Disposition: Return to [facility] Plan - Discharge Summary Discharge Rx Participant: Yes New Discharge Prescriptions: New Sodium Chloride 0.65% Nasal [Deep Sea (Saline)] 2 spray NASAL QID PRN ml PRN Reason: Dry Nasal Passages Apixaban [Eliquis] 2.5 mg PO BID tab Metoprolol Succinate (ER) [Toprol XL] 50 mg PO DAILY tab clonazePAM [KlonoPIN] 0.25 mg PO BID #6 tab Furosemide [Lasix] 80 mg PO DAILY tab Ertapenem [INVanz] 0.5 gm IVPB Q24H 3 Days #3 each Continue FLUoxetine HCL [PROzac] 20 mg PO DAILY Multivitamins, Thera [Multivitamin (formulary)] 1 tab PO DAILY Levothyroxine Sodium [Synthroid] 25 mcg PO HS@1999 Acetaminophen Tab [Tylenol] 650 mg PO Q6H PRN PRN Reason: Pain Sennosides/Docusate Sodium [Senna Plus 8.6-50 mg Softgel] 2 cap PO HS@2000 Insulin Glargine,Hum.rec.anlog [Lantus Solostar Pen] 27 unit SQ HS@2000 Na Phos,M-B/Na Phos,Di-Ba [Fleet Adult] 133 ml RECTAL DAILY PRN PRN Reason: Constipation polyethylene glycoL 3350 [Miralax] 17 gm PO DAILY Ergocalciferol [Vitamin D2 (1250 Mcg = 26150 Iu)] 1,250 mcg PO Q14D Baclofen 10 mg PO HS@2000 Atorvastatin [Lipitor] 20 mg PO HS@2000 Norethindrone [Chani] 0.35 mg PO DAILY clomiPRAMINE [Anafranil] 50 mg PO HS Darbepoetin Kurtis [Aranesp] 25 mcg SQ MO@2200 Ferrous Sulfate [Feosol] 325 mg PO BID #60 tab Magnesium Hydroxide [Milk of Magnesia] 2,400 mg PO Q72H PRN PRN Reason: Constipation bisacodyL [Dulcolax] 10 mg RECTAL DAILY PRN PRN Reason: Constipation Melatonin 5 mg PO HS@1999 Sodium Bicarbonate 650 mg PO BID Changed HYDROcodone/APAP 7.5-325MG [Rodessa 7.5-325] 1 tab PO Q8H PRN #9 tab PRN Reason: Pain Discontinued carvediloL [Coreg] 3.125 mg PO BID clonazePAM [KlonoPIN] 0.5 mg PO HS@1999 glipiZIDE XL [Glucotrol XL] 2.5 mg PO DAILY@0700 amLODIPine [Norvasc] 5 mg PO DAILY Acetaminophen Tab [Tylenol Tab] 500 mg PO TID@0800,1200,1800 Apixaban [Eliquis] 5 mg PO BID Baclofen 5 mg PO BID@0500,1300 Discharge Medication List FLUoxetine HCL [PROzac] 20 mg PO DAILY 02/15/18 [History] Levothyroxine Sodium [Synthroid] 25 mcg PO HS@199902/15/18 [History] Multivitamins, Thera [Multivitamin (formulary)] 1 tab PO DAILY 02/15/18 [History] Acetaminophen Tab [Tylenol] 650 mg PO Q6H PRN 09/03/18 [History] Baclofen 10 mg PO HS@199907/25/20 [History] Insulin Glargine,Hum.rec.anlog [Lantus Solostar Pen] 27 unit SQ HS@199907/25/20 [History] Sennosides/Docusate Sodium [Senna Plus 8.6-50 mg Softgel] 2 cap PO HS@199907/25/20 [History] Atorvastatin [Lipitor] 20 mg PO HS@199909/29/20 [History] Darbepoetin Kurtis [Aranesp] 25 mcg SQ MO@2200 01/26/21 [History] Norethindrone [Chani] 0.35 mg PO DAILY 01/26/21 [History] clomiPRAMINE [Anafranil] 50 mg PO HS 01/26/21 [History] Ferrous Sulfate [Feosol] 325 mg PO BID #60 tab 01/31/21 [Rx] Ergocalciferol [Vitamin D2 (1250 Mcg = 38948 Iu)] 1,250 mcg PO Q14D 02/06/22 [History] Magnesium Hydroxide [Milk of Magnesia] 2,400 mg PO Q72H PRN 02/06/22 [History] Melatonin 5 mg PO HS@199902/06/22 [History] Na Phos,M-B/Na Phos,Di-Ba [Fleet Adult] 133 ml RECTAL DAILY PRN 02/06/22 [History] Sodium Bicarbonate 650 mg PO BID 02/06/22 [History] bisacodyL [Dulcolax] 10 mg RECTAL DAILY PRN 02/06/22 [History] polyethylene glycoL 3350 [Miralax] 17 gm PO DAILY 02/06/22 [History] Apixaban [Eliquis] 2.5 mg PO BID tab 02/19/22 [Rx] Ertapenem [INVanz] 0.5 gm IVPB Q24H 3 Days #3 each 02/19/22 [Rx] Furosemide [Lasix] 80 mg PO DAILY tab 02/19/22 [Rx] HYDROcodone/APAP 7.5-325MG [Rodessa 7.5-325] 1 tab PO Q8H PRN #9 tab 02/19/22 [Rx] Metoprolol Succinate (ER) [Toprol XL] 50 mg PO DAILY tab 02/19/22 [Rx] Sodium Chloride 0.65% Nasal [Deep Sea (Saline)] 2 spray NASAL QID PRN ml 02/19/22 [Rx] clonazePAM [KlonoPIN] 0.25 mg PO BID #6 tab 02/19/22 [Rx] Follow up Appointment(s)/Referral(s): Moncho Suarez DO [Primary Care Provider] - 1-2 days Romeo Torres DO [Doctor of Osteopathic Medicine] - 3 Weeks Activity/Diet/Wound Care/Special Instructions: ZAC PICHARDO
[2022-02-20 12:39] VITALS: BP 118/75; PULSE 81; TEMP 98.4
--- NOTE | 2022-02-20 20:11 | P.PN ---
Subjective Progress Note Date: 02/20/22 Principal diagnosis: Urinary tract infection Patient is a 36-year-old female with a past medical history significant for cognitive impairment CVA with right-sided weakness and a history of gastric bypass surgery patient was sent to the ER from [facility] for evaluation of mental status changes, patient did have a positive UA concerning for possible symptomatic urinary tract infection with a previous history of ESBL E. coli. On today's evaluation that is 02/20/2022, the patient denies any fever or any chills, patient is breathing comfortably on 2L nasal cannula oxygen , the patient denies any chest pain , the patient did have occasional dry cough no nausea no vomiting no abdominal pain or diarrhea Objective - Vital Signs Vital signs: Vital Signs Temp 98.4 F 02/20/22 12:27 Pulse 81 02/20/22 12:27 Resp 18 02/20/22 12:27 BP 118/75 02/20/22 12:27 Pulse Ox 98 02/20/22 12:27 FiO2 38 02/17/22 11:00 Intake & Output 02/19/22 02/20/22 02/20/22 18:59 06:59 18:59 Output Total 1500 650 Balance -1500 -650 Output: Urine 1500 650 Other: Voiding Method Diaper Diaper Diaper Incontinent Incontinent Incontinent External Catheter External Catheter External Catheter # Voids 2 - Exam GENERAL DESCRIPTION: A middle-age female lying in bed in no distress RESPIRATORY SYSTEM: Unlabored breathing , decreased breath sounds at bases HEART: S1 S2 regular rate and rhythm , ABDOMEN: Soft , no tenderness EXTREMITIES: No edema feet - Labs CBC & Chem 7: 02/18/22 11:53 02/19/22 06:22 Labs: Abnormal Lab Results - Last 24 Hours (Table) 02/18/22 02/19/22 02/19/22 Range/Units 08:18 17:15 20:13 POC Glucose (mg/dL) 181 H 305 H (70-110) mg/dL Crossmatch See Detail 02/20/22 02/20/22 Range/Units 07:28 11:09 POC Glucose (mg/dL) 132 H 128 H (70-110) mg/dL Crossmatch Assessment and Plan (1) UTI (urinary tract infection) Status: Acute Code(s): N39.0 - URINARY TRACT INFECTION, SITE NOT SPECIFIED SNOMED Code(s): 74289721 Plan: 1patient is in the hospital with mental status changes weakness and a fall which is likely multifactorial in this patient who did have a positive UA some urinary symptoms concerning for symptomatic UTI likely from enteric gram- negative pathogen however the patient do have a history of ESBL E. coli infection and will need to cover for ESBL until the cultures are finalized. 2patient did have elevated BUN and creatinine ultrasound didn't show any obstructive uropathy. 3patient urine has been finalized with ESBL E. coli patient repeat UA still positive , patient has shown clinical improvement and received about 11 days of Invanz while inpatient, will recommend another 3 days on discharge to finish a two-week course of therapy Time with Patient: Less than 30
== END 2022-02-20 15:21 | DRG 91 ==
LOC: EC 08:49 → 6NMEDSUR 12:28 → OBSVTOIN 02-09 11:28 → 5NMEDONC 02-09 23:55 → 2SICU 02-14 12:15 → 5NMEDONC 02-18 16:33
PROVIDERS: ADMIT Hospitalist; ATTEND Hospitalist
PROC: 30233N1 Transfusion of Nonautologous Red Blood Cells into Peripheral Vein, Percutaneous Approach (ICD-10-PCS; principal; 2022-02-07)
DX: G92.8 Other toxic encephalopathy (principal); I26.99 Other pulmonary embolism without acute cor pulmonale; J15.6 Pneumonia due to other Gram-negative bacteria; J96.21 Acute and chronic respiratory failure with hypoxia; S72.492A Other fracture of lower end of left femur, initial encounter for closed fracture; E66.2 Morbid (severe) obesity with alveolar hypoventilation; N30.00 Acute cystitis without hematuria; Z16.12 Extended spectrum beta lactamase (ESBL) resistance; Z68.41 Body mass index [BMI] 40.0-44.9, adult; E87.20 Acidosis, unspecified; F05 Delirium due to known physiological condition; F23 Brief psychotic disorder; I69.351 Hemiplegia and hemiparesis following cerebral infarction affecting right dominant side; I69.354 Hemiplegia and hemiparesis following cerebral infarction affecting left non-dominant side; N18.4 Chronic kidney disease, stage 4 (severe); I82.4Z3 Acute embolism and thrombosis of unspecified deep veins of distal lower extremity, bilateral; N17.9 Acute kidney failure, unspecified; I13.10 Hypertensive heart and chronic kidney disease without heart failure, with stage 1 through stage 4 chronic kidney disease, or unspecified chronic kidney disease; E11.22 Type 2 diabetes mellitus with diabetic chronic kidney disease; I69.311 Memory deficit following cerebral infarction; D63.1 Anemia in chronic kidney disease; I69.398 Other sequelae of cerebral infarction; E03.9 Hypothyroidism, unspecified; F32.A Depression, unspecified; Z99.81 Dependence on supplemental oxygen; D50.9 Iron deficiency anemia, unspecified; I50.9 Heart failure, unspecified; N13.9 Obstructive and reflux uropathy, unspecified; I08.1 Rheumatic disorders of both mitral and tricuspid valves; F41.0 Panic disorder [episodic paroxysmal anxiety]; G89.29 Other chronic pain; I25.2 Old myocardial infarction; B96.20 Unspecified Escherichia coli [E. coli] as the cause of diseases classified elsewhere; N92.6 Irregular menstruation, unspecified; E78.5 Hyperlipidemia, unspecified; T40.605A Adverse effect of unspecified narcotics, initial encounter; Y92.122 Bedroom in nursing home as the place of occurrence of the external cause; E28.2 Polycystic ovarian syndrome; W06.XXXA Fall from bed, initial encounter; R45.1 Restlessness and agitation; M62.838 Other muscle spasm; M24.542 Contracture, left hand; G47.00 Insomnia, unspecified; Z74.01 Bed confinement status; Z20.822 Contact with and (suspected) exposure to COVID-19; K59.00 Constipation, unspecified; M54.50 Low back pain, unspecified; M25.561 Pain in right knee; M21.371 Foot drop, right foot; Z71.89 Other specified counseling; Z86.16 Personal history of COVID-19; T42.8X5A Adverse effect of antiparkinsonism drugs and other central muscle-tone depressants, initial encounter; Z91.81 History of falling; Z87.440 Personal history of urinary (tract) infections; Z78.1 Physical restraint status; Z98.84 Bariatric surgery status; Z86.718 Personal history of other venous thrombosis and embolism; Z79.01 Long term (current) use of anticoagulants; Z79.82 Long term (current) use of aspirin; Z79.890 Hormone replacement therapy; Z79.84 Long term (current) use of oral hypoglycemic drugs; Z79.4 Long term (current) use of insulin; Z88.6 Allergy status to analgesic agent; Z88.8 Allergy status to other drugs, medicaments and biological substances; Z86.19 Personal history of other infectious and parasitic diseases; Z87.891 Personal history of nicotine dependence
CPT/HCPCS: 36415; 36600; 70450; 71045; 71046; 76770; 80048; 80053; 81001; 82140; 82803; 82805; 83735; 83880; 84145; 84484; 85025; 85027; 85379; 85610; 85730; 86850; 86900; 86901; 86920; 87040; 87077; 87086; 87186; 87636; 93005; 93306; 93970; 94660; 94760; 96361; 96365; 99285

== ENCOUNTER 2022-05-21 15:26 | Inpatient (IN) | payer OTHER ==
[2022-05-21] MEDS ORDERED: SODIUM CHLORIDE 0.9% 1,000 ML IV STA (15:43)
[2022-05-21] MEDS ORDERED: ACETAMINOPHEN TAB 325 MG TAB PO STA (15:45)
[2022-05-21] MEDS ORDERED: MORPHINE SULFATE 2 MG/ML SYRINGE IVP STA (15:45)
--- NOTE | 2022-05-21 16:02 | ED ---
Skin/Abscess/FB HPI - General Source: EMS, RN notes reviewed Mode of arrival: EMS Limitations: altered mental status <Alma Delia Cooney - Last Filed: 05/21/22 19:33> - General Limitations: altered mental status, physical limitation - History of Present Illness MD complaint: abscess/boil (History of infection abscess in the lower back area) Tetanus Up to Date: no Consistency: constant Improves with: none Worsens with: none Context: none Associated symptoms: malaise, shortness of breath Treatments Prior to Arrival: none <Uche Gustafson - Last Filed: 05/21/22 21:08> - General Chief complaint: Skin/Abscess/Foreign Body Stated complaint: Mass on Back Time Seen by Provider: 05/21/22 15:36 - History of Present Illness Initial comments: This is a 37-year-old female who presents to the emergency department for an abscess to the back. Believes that this has been present over the last couple of days. She has had masses removed from her back before. Patient is bedbound after suffering a stroke, making the area difficult to adequately evaluate. She does not believe that she had any drainage from the site. States that it is v sumeet painful. Unsure she's had any fevers at home. Denies any nausea or vomiting. Denies any fevers, chills, sore throat, cough, dyspnea, chest pain, palpitations, abdominal pain, nausea, vomiting, diarrhea, or headaches. (Alma Delia Cooney) This is a 37-year-old female DF for evaluation of abscess versus back pain. Severe back pain patient is bed bound due to recent CVA coming in over the severe pain in her back and patient also developed some generalized pain throughout her body as well. (Uche Gustafson) - Related Data Home Medications Medication Instructions Recorded Confirmed FLUoxetine HCL [PROzac] 20 mg PO DAILY 02/15/18 05/21/22 Levothyroxine Sodium [Synthroid] 25 mcg PO HS@199902/15/18 05/21/22 Multivitamins, Thera [Multivitamin 1 tab PO DAILY 02/15/18 05/21/22 (formulary)] Acetaminophen Tab [Tylenol] 650 mg PO Q6H PRN 09/03/18 05/21/22 Baclofen 10 mg PO HS@199907/25/20 05/21/22 Insulin Glargine,Hum.rec.anlog 27 unit SQ HS@199907/25/20 05/21/22 [Lantus Solostar Pen] Sennosides/Docusate Sodium [Senna 2 cap PO HS@199907/25/20 05/21/22 Plus 8.6-50 mg Softgel] Atorvastatin [Lipitor] 20 mg PO HS@199909/29/20 05/21/22 Darbepoetin Kurtis [Aranesp] 25 mcg SQ MO@22001/26/21 05/21/22 Norethindrone [Chani] 0.35 mg PO DAILY 01/26/21 05/21/22 clomiPRAMINE [Anafranil] 50 mg PO HS@199901/26/21 05/21/22 Magnesium Hydroxide [Milk of 2,400 mg PO Q72H PRN 02/06/22 05/21/22 Magnesia] Melatonin 5 mg PO HS@199902/06/22 05/21/22 Sodium Bicarbonate 650 mg PO BID@0800,199902/06/22 05/21/22 polyethylene glycoL 3350 [Miralax] 17 gm PO DAILY 02/06/22 05/21/22 Apixaban [Eliquis] 2.5 mg PO BID@0800,199905/21/22 05/21/22 Cholecalciferol [Vitamin D3 (25 75 mcg PO DAILY 05/21/22 05/21/22 Mcg = 1000 Iu)] Ferrous Sulfate [Feosol] 325 mg PO BID@0800,199905/21/22 05/21/22 clonazePAM [KlonoPIN] 0.25 mg PO BID@0800,199905/21/22 05/21/22 Previous Rx's Medication Instructions Recorded Furosemide [Lasix] 80 mg PO DAILY tab 02/19/22 HYDROcodone/APAP 7.5-325MG [[place] 1 tab PO Q8H PRN #9 tab 02/19/22 7.5-325] Metoprolol Succinate (ER) [Toprol 50 mg PO DAILY tab 02/19/22 XL] Allergies Allergy/AdvReac Type Severity Reaction Status Date / Time aspirin Allergy Rash/Hives Verified 05/21/22 16:14 sertraline HCl [From Zoloft] Allergy Unknown Verified 05/21/22 16:14 zolpidem tartrate Allergy Unknown Verified 05/21/22 16:14 [From Ambien] gabapentin [From Neurontin] AdvReac Severe SEVERE Verified 05/21/22 16:14 AGITATION ibuprofen [From Motrin] AdvReac AVOIDS D/T Verified 05/21/22 16:14 KIDNEY FUNCTION Review of Systems ROS Other: All systems not noted in ROS Statement are negative. <Alma Delia Cooney - Last Filed: 05/21/22 19:33> ROS Other: All systems not noted in ROS Statement are negative. <Uche Gustafson - Last Filed: 05/21/22 21:08> ROS Statement: Those systems with pertinent positive or pertinent negative responses have been documented in the HPI. Past Medical History Past Medical History: CVA/TIA, Deep Vein Thrombosis (DVT), Myocardial Infarction ([place]) Additional Past Medical History / Comment(s): morbid obesity, pancreatitis, history of coma - 10/24/14 - until end december after suffering from a stroke. Last Myocardial Infarction Date:: 10/2014 History of Any Multi-Drug Resistant Organisms: ESBL, Other MDRO Date of last positivie culture/infection: 07/16/20 ESBL E.coli MDRO Source:: Urine-ESBL Past Surgical History: Cholecystectomy Additional Past Surgical History / Comment(s): Cystoscopy with placement of left double-J catheter 02/16/2018, Gastric bypass 2016 Past Anesthesia/Blood Transfusion Reactions: No Reported Reaction Past Psychological History: Anxiety, Depression, Panic Disorder Smoking Status: Never smoker Past Alcohol Use History: None Reported Past Drug Use History: Marijuana - Past Family History Father History Unknown: Yes Family Medical History: Cancer Additional Family Medical History / Comment(s): lung <Alma Delia Cooney - Last Filed: 05/21/22 19:33> General Exam Limitations: physical limitation General appearance: alert, in no apparent distress Head exam: Present: atraumatic, normocephalic, normal inspection Respiratory exam: Present: normal lung sounds bilaterally. Absent: respiratory distress, wheezes, rales, rhonchi, stridor Cardiovascular Exam: Present: regular rate, normal rhythm, normal heart sounds. Absent: systolic murmur, diastolic murmur, rubs, gallop, clicks Back exam: Present: other (Large erythematous area of induration with overlying tenderness on the right flank. There are no punctate lesions) Neurological exam: Present: alert, oriented X3 Psychiatric exam: Present: normal affect, normal mood Skin exam: Present: warm, dry, intact <Alma Delia Cooney - Last Filed: 05/21/22 19:33> Limitations: altered mental status, physical limitation General appearance: alert, in no apparent distress, anxious Head exam: Present: atraumatic, normocephalic, normal inspection Eye exam: Present: normal appearance, PERRL, EOMI. Absent: scleral icterus, conjunctival injection, periorbital swelling ENT exam: Present: normal exam, mucous membranes moist Neck exam: Present: normal inspection. Absent: tenderness, meningismus, lymphadenopathy Respiratory exam: Present: normal lung sounds bilaterally. Absent: respiratory distress, wheezes, rales, rhonchi, stridor Cardiovascular Exam: Present: normal rhythm, tachycardia, normal heart sounds. Absent: systolic murmur, diastolic murmur, rubs, gallop, clicks GI/Abdominal exam: Present: soft, normal bowel sounds. Absent: distended, tenderness, guarding, rebound, rigid Extremities exam: Present: normal inspection, full ROM, normal capillary refill. Absent: tenderness, pedal edema, joint swelling, calf tenderness Back exam: Present: normal inspection Neurological exam: Present: alert, oriented X3, CN II-XII intact Psychiatric exam: Present: normal affect, normal mood Skin exam: Present: warm, dry, intact, normal color. Absent: rash <Uche Gustafson - Last Filed: 05/21/22 21:08> Course <Uche Gustafson - Last Filed: 05/21/22 21:08> Vital Signs 05/21/22 05/21/22 05/21/22 15:33 18:00 19:29 Temperature 100.3 F H 98.8 F Pulse Rate 113 H 97 109 H Respiratory 20 16 28 H Rate Blood Pressure 93/57 110/68 83/49 O2 Sat by Pulse 97 98 100 Oximetry 05/21/22 05/21/22 05/21/22 19:32 19:44 19:47 Temperature Pulse Rate 108 H 112 H 112 H Respiratory 22 28 H 24 Rate Blood Pressure 63/40 132/114 117/99 O2 Sat by Pulse 100 92 L 100 Oximetry - Reevaluation(s) Reevaluation #1: 05/21/22 20:59 Medical record is reviewed (Uche Gustafson) Reevaluation #2: 05/21/22 20:59 Patient informed of results questions answered no change in symptoms here in the ER (Uche Gustafson) Reevaluation #3: 05/21/22 20:59 Patient did have suspected her allegedly cardiac arrest here in the emergency department. Patient was found to be unresponsive by nursing providing care and CPR was initiated with return of spontaneous circulation. Patient became awake alert and oriented during chest compressions. CODE BLUE was paged overhead Patient has labile blood pressure at this time initial hemoglobin was low patient was given a hemoglobin transfusion here in the emergency department While doing patient central line was noted to patient had very low circulating intravascular volume with collapse of the IJ during every breath A she will be volume resuscitated due to low blood pressure and low circulating volume as well as continue of transfusion Patient is transferred to ICU Patient currently awake alert able answer questions without difficulty (Uche Gustafson) Medical Decision Making - Lab Data Result diagrams: 05/21/22 15:55 05/21/22 15:55 - Radiology Data Radiology results: report reviewed, image reviewed <Alma Delia Cooney - Last Filed: 05/21/22 19:33> - Lab Data Result diagrams: 05/21/22 19:25 05/21/22 19:25 - EKG Data -: EKG Interpreted by Me (EKG is sinus tachycardia 108 DC 192 QRS 90 QTC 460 this is EKG after event) - Radiology Data Radiology results: report reviewed (Chest x-ray shows positive CVC placement right IJ), image reviewed <Uche Gustafson - Last Filed: 05/21/22 21:08> - Medical Decision Making This is a 37-year-old female who presents to the emergency department for an abscess to the back. Was pt. sent in by a medical professional or institution? @ -No Did you speak to anyone other than the patient for history? @ -EMS Did you review nursing and triage notes? @ -Yes, and I agree, it is accurate with regards to the patient's symptoms. Were old charts reviewed? @ -No Differential Diagnosis? @ -Not applicable CT interpreted by me (1pt min.)? @ -[none] What testing was considered but not performed? (CT, X-rays, U/S, labs)? Why? @ -None What meds were considered but not given? Why? @ -None Did you discuss the management of the patient with other professionals? @ -Yes, Dr. Stacy, who accepts the patient for admission. Did you reconcile home meds? @ -Yes Was smoking cessation discussed for >3mins.? @ -No Was critical care preformed (if so, how long)? @ -No Were there social determinants of health that impacted care today? How? (Homelessness, low income, unemployed, alcoholism, drug addiction, transportation, low edu. Level, literacy, decrease access to med. care, intermediate, rehab)? @ -No Was there de-escalation of care discussed even if they declined? (Discuss DNR or withdrawal of care, Hospice)? @ -No What co-morbidities impacted this encounter? (DM, HTN, Smoking, COPD, CAD, Cancer, CVA, Hep., AIDS, mental health diagnosis, sleep apnea, morbid obesity)? @ -Morbid obesity, CKD, hx of CVA Was patient admitted / discharged? @ -Admitted. Lab work obtained revealing leukocytosis and significantly elevated inflammatory markers. Computed tomography scan of the abdomen and pelvis obtained. This revealed a mass where the right kidney is expected to be. She previously had an atrophic kidney. Radiology advised consideration of underlying mass. There is also a soft tissue density in the right flank with punctate areas of air. Radiology notes concern for neoplasm such as a sarcoma and states that a hemorrhage may be present. Case discussed with Dr. Stacy, who accepts the patient for admission. He advised ID and general surgery consult and starting the patient on antibiotics with Ceftriaxone. Ceftriaxone administered with blood cultures obtained prior. Undiagnosed new problem with uncertain prognosis? @ -None Drug Therapy requiring intensive monitoring for toxicity (Heparin, Nitro, Insulin, Cardizem)? @ -None Were any procedures done? @ -None Diagnosis/symptom? @ -Right flank mass Acute, or Chronic, or Acute on Chronic? @ -Acute Uncomplicated (without systemic symptoms) or Complicated (systemic symptoms)? @ -Complicated Side effects of treatment? @ -None Exacerbation, Progression, or Severe Exacerbation] @ -Not applicable Poses a threat to life or bodily function? @ -Yes This case was discussed in detail with the attending ED physician, Dr. Gustafson. Presentation, findings, and treatment plan discussed in detail as well. (Alma Delia Cooney) - Lab Data Lab Results 05/21/22 05/21/22 05/21/22 Range/Units 15:55 15:55 15:55 WBC 12.2 H (3.8-10.6) k/uL RBC 2.77 L (3.80-5.40) m/uL Hgb 7.0 L (11.4-16.0) gm/dL Hct 23.1 L (34.0-46.0) % MCV 83.5 (80.0-100.0) fL MCH 25.3 (25.0-35.0) pg MCHC 30.2 L (31.0-37.0) g/dL RDW 18.1 H (11.5-15.5) % Plt Count 426 (150-450) k/uL MPV 7.3 Neutrophils % 85 % Lymphocytes % 7 % Monocytes % 5 % Eosinophils % 1 % Basophils % 0 % Neutrophils # 10.4 H (1.3-7.7) k/uL Lymphocytes # 0.9 L (1.0-4.8) k/uL Monocytes # 0.6 (0-1.0) k/uL Eosinophils # 0.1 (0-0.7) k/uL Basophils # 0.0 (0-0.2) k/uL Hypochromasia Marked Poikilocytosis Slight Anisocytosis Slight Microcytosis Slight ESR >140 H (0-20) mm/hr Sodium 131 L (137-145) mmol/L Potassium 3.8 (3.5-5.1) mmol/L Chloride 97 L (98-107) mmol/L Carbon Dioxide 22 (22-30) mmol/L Anion Gap 12 mmol/L BUN 62 H (7-17) mg/dL Creatinine 3.86 H (0.52-1.04) mg/dL Est GFR (CKD-EPI)AfAm 16 (>60 ml/min/1.73 sqM) Est GFR (CKD-EPI)NonAf 14 (>60 ml/min/1.73 sqM) Glucose 179 H (74-99) mg/dL Plasma Lactic Acid [place] 1.1 (0.7-2.0) mmol/L Calcium 8.8 (8.4-10.2) mg/dL Total Bilirubin 0.3 (0.2-1.3) mg/dL AST 22 (14-36) U/L ALT 23 (4-34) U/L Alkaline Phosphatase 187 H (38-126) U/L C-Reactive Protein 33.0 H (<1.0) mg/dL Total Protein 6.9 (6.3-8.2) g/dL Albumin 2.6 L (3.5-5.0) g/dL Critical Care Time Critical Care Time: Yes Total Critical Care Time: 31 <Uche Gustafson - Last Filed: 05/21/22 21:08> Disposition <Alma Delia Cooney - Last Filed: 05/21/22 19:33> Time of Disposition: 21:05 <Uche Gustfason - Last Filed: 05/21/22 21:08> Clinical Impression: Right flank mass, Cardiopulmonary arrest with successful resuscitation, Hypotension, Anemia, Hematoma of flank, Abscess of flank, Weakness, Syncope, Lactic acidosis Disposition: ADMITTED IP TO THIS HOSP
[2022-05-21 16:06] LABS: Anisocytosis Slight; Basophils % (A) 0 %; Eosinophils # (A) 0.1 k/uL (0-0.7); Eosinophils % (A) 1 %; HCT 23.1 % (34.0-46.0); Hypochromasia Marked; Lymphocytes # (A) 0.9 k/uL (1.0-4.8); Lymphocytes % (A) 7 %; MCH 25.3 pg (25.0-35.0); MCHC 30.2 g/dL (31.0-37.0); MCV 83.5 fL (80.0-100.0); Mean Platelet Volume 7.3; Microcytosis Slight; Monocytes # (A) 0.6 k/uL (0-1.0); Monocytes % (A) 5 %; Neutrophils # (A) 10.4 k/uL (1.3-7.7); Neutrophils % (A) 85 %; Platelet Count 426 k/uL (150-450); Poikilocytosis Slight; RBC 2.77 m/uL (3.80-5.40); RDW 18.1 % (11.5-15.5); WBC 12.2 k/uL (3.8-10.6)
[2022-05-21 16:24] LABS: Albumin 2.6 g/dL (3.5-5.0); Calcium 8.8 mg/dL (8.4-10.2); Potassium 3.8 mmol/L (3.5-5.1); Total Bilirubin 0.3 mg/dL (0.2-1.3); Total Protein 6.9 g/dL (6.3-8.2)
[2022-05-21 17:07] LABS: Erythrocyte Sedimentation Rate >140 mm/hr (0-20)
--- NOTE | 2022-05-21 18:16 | CT ---
EXAMINATION TYPE: CT abdomen pelvis wo con DATE OF EXAM: 05/21/2022 COMPARISON: 07/24/2020 INDICATION: Mass on back GFR 14 Creat 3.86 No contrast DLP: 1536.4 mGycm, Automated exposure control for dose reduction was used. CONTRAST: 0 mL of Isovue 300. Study performed without Oral Contrast TECHNIQUE: Axial images were obtained from above the diaphragm to the pubic rami in the axial plane a t 5 mm thick sections. Reconstructed images are reviewed on the computer in the coronal plane. FINDINGS: Limited CT sections are obtained the lung bases. No suspicious infiltrate is evident.. CT ABDOMEN: Liver: Normal Spleen: Normal Pancreas: Somewhat atrophic Adrenal glands: Left adrenal gland appears normal. Right adrenal gland is not identified. Gallbladder: Surgically absent Kidneys: There is an 8.2 cm mass within the expected region of the right kidney. This was previously an atrophic kidney which has enlarged. Underlying mass should be considered. Perinephric stranding is present. The soft tissue density in the posterior right flank is at the level of this right kidney. A couple o f punctate areas of air are present. Correlate for recent instrumentation. Masses of uncertain etiolo gy. Consider neoplasm, such as sarcoma. Hemorrhage may be present. Left kidney appears small. There are multiple calcifications within the expected region of the right kidney. A couple of punctate calcifications may be present on the left. Aorta: Normal Inferior vena cava: Normal. CT PELVIS: Loops of bowel within the abdomen and pelvis are normal. There may be a large bolus of the level the rectum. This study is a lateral contrast limiting bowel evaluation. Appendix: Normal as visualized. Urinary bladder: Decompressed with limited evaluation. Genitourinary structures: Anteverted uterus. Adnexa appear normal. Osseous structures: No suspicious lytic or sclerotic lesions. IMPRESSIONS: 1. Right kidney appears to have enlarged from the atrophic appearance prior on the current examinati on. Perinephric stranding is present. 2. Soft tissue density in the subcutaneous and deep tissues of the right flank at the level of the en larged kidney. Small amount of air is present within this region. Ecchymosis appears to extend throug h the flank to the thigh. Correlate for hematoma. Other etiologies include sarcoma or other neoplasm.
[2022-05-21] MEDS ORDERED: ONDANSETRON 4 MG/2 ML VIAL IVP PRN (18:43)
[2022-05-21] MEDS ORDERED: NALOXONE 0.4 MG/ML 1 ML VIAL IV PRN (18:43)
[2022-05-21] MEDS ORDERED: cefTRIAXone IN SWFI 1,000 MG/10 ML SYRINGE IVP STA (18:46)
[2022-05-21 19:30] LABS: Glucose,Whole Blood 140 mg/dL (70-110)
--- NOTE | 2022-05-21 19:53 | XR ---
EXAMINATION TYPE: XR chest 1V portable DATE OF EXAM: 05/21/2022 COMPARISON: 02/18/2022 HISTORY: Cardiac arrest TECHNIQUE: Single frontal view of the chest is obtained. FINDINGS: Perihilar infiltrates may reflect pulmonary edema. Infiltrates of other etiology not excluded. Exam i s limited by the degree of inspiration. Cardiomegaly. The osseous structures are intact. IMPRESSION: 1. Perihilar infiltrates may reflect pulmonary edema. Infiltrates of other etiology not excluded.
[2022-05-21 19:54] LABS: Anisocytosis Slight; Hypochromasia Marked; MCH 25.5 pg (25.0-35.0); MCHC 29.4 g/dL (31.0-37.0); MCV 86.8 fL (80.0-100.0); Mean Platelet Volume 7.3; Platelet Count 577 k/uL (150-450); Poikilocytosis Slight; RBC 2.63 m/uL (3.80-5.40); RDW 18.1 % (11.5-15.5); WBC 16.1 k/uL (3.8-10.6)
[2022-05-21] MEDS: NOREPINEPHRINE 8 MG in SODIUM CHLORIDE 0.9% 250 ML IV SCH ×2 (20:00→23:44)
[2022-05-21] MEDS ORDERED: APIXABAN 2.5 MG TABLET PO SCH (20:00)
[2022-05-21 20:01] LABS: HCT 22.8 % (34.0-46.0); HGB 6.7 gm/dL (11.4-16.0)
[2022-05-21 20:14] LABS: ALT 26 U/L (4-34); AST 36 U/L (14-36); African American GFR (CKD) 19 (>60 ml/min/1.73 sqM); Albumin 2.2 g/dL (3.5-5.0); Albumin/Globulin Ratio 0.6; Alkaline Phosphatase 156 U/L (38-126); Anion Gap 12 mmol/L; Blood Urea Nitrogen 57 mg/dL (7-17); Calcium 8.3 mg/dL (8.4-10.2); Carbon Dioxide 19 mmol/L (22-30); Chloride 104 mmol/L (98-107); Glucose 137 mg/dL (74-99); Magnesium 2.3 mg/dL (1.6-2.3); Non-African American GFR(CKD) 16 (>60 ml/min/1.73 sqM); Potassium 3.6 mmol/L (3.5-5.1); Sodium 135 mmol/L (137-145); Total Bilirubin 0.2 mg/dL (0.2-1.3); Total Protein 6.2 g/dL (6.3-8.2)
[2022-05-21] MEDS ORDERED: fentaNYL (PF) 50 MCG/ML 2 ML AMP IVP STA (20:50)
--- NOTE | 2022-05-21 21:18 | XR ---
EXAMINATION TYPE: XR chest 1V confirm line [facility] DATE OF EXAM: 05/21/2022 COMPARISON: 05/21/2022 HISTORY: Chest pain TECHNIQUE: Single frontal view of the chest is obtained. FINDINGS: Right IJ central venous line with distal tip within the right atrium. No evidence for pneumothorax. There is no focal air space opacity, pleural effusion, or pneumothorax seen. The cardiac silhouette size is within normal limits. The osseous structures are intact. IMPRESSION: 1. No acute process.
[2022-05-21 21:31] LABS: Glucose,Whole Blood 146 mg/dL (70-110)
--- NOTE | 2022-05-21 21:47 | P.EN ---
CODE BLUE note Activated at 1917. Arrived at the scene shortly after. The patient was undergoing CPR with PEA. She was given 1 ampule of epinephrine IV push. ROSC subsequently achieved at 1920. The chart was reviewed and the case was discussed in detail with the patient's RN. The patient was admitted for flank pain and sepsis. She was started on IV abxs. The patient had pressed the call button for the nurse who upon arrival noticed that the patient appeared somewhat jiménez. The patient complained of sudden onset of shortness of breath and became unresponsive and lost her pulse. Labs were ordered following ROSC with CXR. The patient began following commands shortly after ROSC and was not intubated. The case was discussed with the stock mixer by the [employer] who accepted the patient. The case was also discussed personally with Dr Stayc (Primary team). Central line to be placed by the ED physician prior to ICU admission. Please refer to code sheet for further details. Total time spent providing critical care for this patient including care coordination: 40 minutes
[2022-05-21] MEDS: HYDROcodone/APAP 7.5-325MG 1 EACH TAB PO PRN (22:30)
[2022-05-21] MEDS: ATORVASTATIN 20 MG TAB PO SCH (23:06)
[2022-05-21] MEDS: LEVOTHYROXINE 25 MCG TAB PO SCH (23:06)
[2022-05-21] MEDS: MELATONIN 5 MG TABLET PO SCH (23:08)
[2022-05-21] MEDS: SENNOSIDES-DOCUSATE SODIUM 1 EACH TAB PO SCH (23:09)
[2022-05-21] MEDS: SODIUM BICARBONATE TAB 650 MG TAB PO SCH (23:09)
[2022-05-22] MEDS: clonazePAM 0.5 MG TAB PO SCH ×3 (00:31→21:26)
[2022-05-22] MEDS: BACLOFEN 10 MG TAB PO SCH ×2 (00:31→21:28)
[2022-05-22] MEDS: FERROUS SULFATE 325 MG TAB PO SCH ×3 (00:31→21:29)
[2022-05-22] MEDS: DARBEPOETIN ALFA 25 MCG/0.42 ML SYRINGE SQ SCH (00:32)
--- NOTE | 2022-05-22 03:55 | P.CNPUL ---
History of Present Illness Consult date: 05/22/22 Requesting physician: Dennis Stacy Reason for consult: other (ICU management) Chief complaint: Right flank pain History of present illness: I'm seeing this patient in new consultation today 05/22/2022 in the intensive care unit after suspected cardiac arrest in the emergency room. Patient is a 37-year-old white female with multiple significant comorbidities including myocardial infarction, diabetes mellitus type 2, chronic kidney disease, hypothyroidism, anemia, frequent urinary tract infections with ESBL producing E. coli, CVA, pancreatitis, cognitive delay, DVT, gastric bypass. Patient does have a public guardian is a poor historian. Patient did have a recent prolonged hospital admission in January, for acute hypoxic respiratory failure related to CHF exacerbation versus pneumonia. Patient was brought in yesterday afternoon for right flank pain. An abdominal and pelvis CT without contrast done yesterday showed an 8.2 cm mass within the region of the right kidney. The previously atrophic kidney was enlarged with perinephric stranding. There was soft tissue density subcutaneous and deep tissues the right flank at the level of enlarged kidney. There was small amount of air present within the region. Ecchymosis extended throughout the right flank to the thigh. Correlation for hematoma was recommended. While in the emergency room, the patient became unresponsive and a CODE BLUE was activated. The presenting rhythm was PEA. Patient was successfully resuscitated after 1 round of CPR and 1 amp of epinephrine with an estimated down time of 3 minutes. She did not require intubation. She was hypotensive and given 1 L normal saline bolus. She did require a norepinephrine infusion, currently running at 0.1 mics per kg per minute, through a right IJ triple-lumen central line catheter. Patient is currently resting comfortably on 4 L nasal cannula, in no acute distress. Patient is oxygenating at near 100%. Post resuscitation chest x-ray showed no acute cardiopulmonary process. The patient's right flank area has extensive soft tissue edema, no obvious bruising or ecchymosis. The area is tender to palpation. A follow-up CBC showed a hemoglobin of 6.7, hematocrit 22.8, WBC 16, platelets 577,000. The patient was transfused 1 unit PRBC. Patient's BMP shows sodium 135, potassium 3.6, chloride 104, serum CO2 19, P1 57, creatinine chronically elevated at 3.46, glucose 137. Patient's lactic acid level was elevated at 2.9. Patient did receive a dose of Rocephin. She has been intermittently febrile with a T-max of 100.3F. Troponin was negative 1. NT proBNP was mildly elevated at 1720. Vital signs are stable. Patient is in the intensive care unit for closer monitoring. Review of Systems REVIEW OF SYSTEMS: CONSTITUTIONAL: Denies any recent significant weight loss or weight gain. EYES: Denies change in vision. EARS, NOSE, MOUTH, THROAT: Denies headaches, denies sore throat. CARDIOVASCULAR: Denies chest pain, palpitations or syncopal episodes. RESPIRATORY: Denies shortness of breath, cough, congestion or hemoptysis. GASTROINTESTINAL: Denies change in appetite, abdominal pain, nausea and vomiting, or diarrhea GENITOURINARY: Denies hematuria, denies infections. Admits right flank pain and urinary frequency MUSKULOSKELETAL: Denies pain, denies swelling. INTEGUMENTARY: Denies rash, denies eczema. NEUROLOGICAL: Denies recent memory loss, no recent seizure activity. PSYCHIATRIC: Denies anxiety, denies depression. HEMATOLOGIC/LYMPHATIC: Denies anemia, denies enlarged lymph node Past Medical History Past Medical History: CVA/TIA, Deep Vein Thrombosis (DVT), Myocardial Infarction (NE) Additional Past Medical History / Comment(s): morbid obesity, pancreatitis, history of coma - 10/24/14 - until end of december after suffering from a stroke. Last Myocardial Infarction Date:: 10/2014 History of Any Multi-Drug Resistant Organisms: ESBL, Other MDRO Date of last positivie culture/infection: 07/16/20 ESBL E.coli MDRO Source:: Urine-ESBL Past Surgical History: Cholecystectomy Additional Past Surgical History / Comment(s): Cystoscopy with placement of left double-J catheter 02/16/2018, Gastric bypass 2016 Past Anesthesia/Blood Transfusion Reactions: No Reported Reaction Past Psychological History: Anxiety, Depression, Panic Disorder Smoking Status: Never smoker Past Alcohol Use History: None Reported Additional Past Alcohol Use History / Comment(s): patient smoked in high school Past Drug Use History: Marijuana - Past Family History Father History Unknown: Yes Family Medical History: Cancer Additional Family Medical History / Comment(s): lung Medications and Allergies Home Medications Medication Instructions Recorded Confirmed Type FLUoxetine HCL [PROzac] 20 mg PO DAILY 02/15/18 05/21/22 History Levothyroxine Sodium [Synthroid] 25 mcg PO HS@199902/15/18 05/21/22 History Multivitamins, Thera [Multivitamin 1 tab PO DAILY 02/15/18 05/21/22 History (formulary)] Acetaminophen Tab [Tylenol] 650 mg PO Q6H PRN 09/03/18 05/21/22 History Baclofen 10 mg PO HS@199907/25/20 05/21/22 History Insulin Glargine,Hum.rec.anlog 27 unit SQ HS@199907/25/20 05/21/22 History [Lantus Solostar Pen] Sennosides/Docusate Sodium [Senna 2 cap PO HS@199907/25/20 05/21/22 History Plus 8.6-50 mg Softgel] Atorvastatin [Lipitor] 20 mg PO HS@199909/29/20 05/21/22 History Darbepoetin Kurtis [Aranesp] 25 mcg SQ MO@219901/26/21 05/21/22 History Norethindrone [Chani] 0.35 mg PO DAILY 01/26/21 05/21/22 History clomiPRAMINE [Anafranil] 50 mg PO HS@199901/26/21 05/21/22 History Magnesium Hydroxide [Milk of 2,400 mg PO Q72H PRN 02/06/22 05/21/22 History Magnesia] Melatonin 5 mg PO HS@199902/06/22 05/21/22 History Sodium Bicarbonate 650 mg PO BID@0800,199902/06/22 05/21/22 History polyethylene glycoL 3350 [Miralax] 17 gm PO DAILY 02/06/22 05/21/22 History Furosemide [Lasix] 80 mg PO DAILY tab 02/19/22 05/21/22 Rx HYDROcodone/APAP 7.5-325MG [Barnard 1 tab PO Q8H PRN #9 tab 02/19/22 05/21/22 Rx 7.5-325] Metoprolol Succinate (ER) [Toprol 50 mg PO DAILY tab 02/19/22 05/21/22 Rx XL] Apixaban [Eliquis] 2.5 mg PO BID@0800,199905/21/22 05/21/22 History Cholecalciferol [Vitamin D3 (25 75 mcg PO DAILY 05/21/22 05/21/22 History Mcg = 1000 Iu)] Ferrous Sulfate [Feosol] 325 mg PO BID@08,199905/21/22 05/21/22 History clonazePAM [KlonoPIN] 0.25 mg PO BID@799,199905/21/22 05/21/22 History Allergies Allergy/AdvReac Type Severity Reaction Status Date / Time aspirin Allergy Rash/Hives Verified 05/21/22 16:14 sertraline HCl [From Zoloft] Allergy Unknown Verified 05/21/22 16:14 zolpidem tartrate Allergy Unknown Verified 05/21/22 16:14 [From Ambien] gabapentin [From Neurontin] AdvReac Severe SEVERE Verified 05/21/22 16:14 AGITATION ibuprofen [From Motrin] AdvReac AVOIDS D/T Verified 05/21/22 16:14 KIDNEY FUNCTION Physical Exam Vitals: Vital Signs Temp Pulse Resp BP Pulse Ox 05/21/22 19:47 112 H 24 117/99 100 05/21/22 19:44 112 H 28 H 132/114 92 L 05/21/22 19:32 108 H 22 63/40 100 05/21/22 19:29 109 H 28 H 83/49 100 05/21/22 18:00 98.8 F 97 16 110/68 98 05/21/22 15:33 100.3 F H 113 H 20 93/57 97 Intake and Output 05/21/22 05/21/22 05/22/22 14:59 22:59 06:59 Intake Total 21.683 90.479 Output Total 0 0 Balance .683 90.479 Intake: IV 10 20 0.9 KVO 10 20 Intake, IV Titration 70.479 Amount Norepinephrine 8 mg In 70.479 Sodium Chloride 0.9% 250 ml @ 0.03 MCG/KG/MIN 5. 609 mls/hr IV .Q24H [facility] Rx#:[id number] Blood Product 0 Unit 0 Output: Urine 0 0 Other: Weight 96.615 kg GENERAL EXAM: Alert, 37-year-old white female, comfortable in no apparent distress. HEAD: Normocephalic and atraumatic EYES: Normal reaction of pupils, equal size. NOSE: Clear with pink turbinates. THROAT: No erythema or exudates. NECK: No masses, no JVD. CHEST: No chest wall deformity. LUNGS: Equal air entry with no crackles, wheeze, rhonchi or dullness. On 4 L n pauline cannula. No conversational dyspnea or accessory muscle use.. CVS: S1 and S2 normal with no audible murmur, regular rhythm. No extra heart sounds ABDOMEN: No hepatosplenomegaly, active bowel sounds, no guarding or rigidity. SPINE: No scoliosis or deformity SKIN: No rashes. There is extensive soft tissue swelling on the right flank area. No bruising or ecchymosis. CENTRAL NERVOUS SYSTEM: No focal deficits, tone is normal in all 4 extremities. EXTREMITIES: There is mild bilateral nonpitting edema of the lower extremities. No clubbing, or cyanosis. Peripheral pulses are intact. Results - Laboratory Findings CBC and BMP: 05/21/22 19:25 05/21/22 19:25 Abnormal lab findings: Abnormal Labs 05/21/22 05/21/22 05/21/22 15:55 15:55 19:11 WBC 12.2 H RBC 2.77 L Hgb 7.0 L Hct 23.1 L MCHC 30.2 L RDW 18.1 H Plt Count Neutrophils # 10.4 H Lymphocytes # 0.9 L ESR >140 H Sodium 131 L Chloride 97 L Carbon Dioxide BUN 62 H Creatinine 3.86 H Glucose 179 H POC Glucose (mg/dL) 140 H Plasma Lactic Acid Montrell Calcium Alkaline Phosphatase 187 H C-Reactive Protein 33.0 H Total Protein Albumin 2.6 L Crossmatch 05/21/22 05/21/22 05/21/22 19:25 19:25 19:25 WBC 16.1 H RBC 2.63 L Hgb 6.7 L* Hct 22.8 L MCHC 29.4 L RDW 18.1 H Plt Count 577 H Neutrophils # Lymphocytes # ESR Sodium 135 L Chloride Carbon Dioxide 19 L BUN 57 H Creatinine 3.46 H Glucose 137 H POC Glucose (mg/dL) Plasma Lactic Acid Montrell 2.9 H* Calcium 8.3 L Alkaline Phosphatase 156 H C-Reactive Protein Total Protein 6.2 L Albumin 2.2 L Crossmatch 05/21/22 05/21/22 19:27 21:29 WBC RBC Hgb Hct MCHC RDW Plt Count Neutrophils # Lymphocytes # ESR Sodium Chloride Carbon Dioxide BUN Creatinine Glucose POC Glucose (mg/dL) 146 H Plasma Lactic Acid Montrell Calcium Alkaline Phosphatase C-Reactive Protein Total Protein Albumin Crossmatch See Detail - Diagnostic Findings Chest x-ray: image reviewed Assessment and Plan Assessment: PEA cardiac arrest witnessed with an estimated 3 minute downtime. Patient did receive CPR and 1 amp of epinephrine. Hypotension was treated with 1 L normal saline bolus, and started on a norepinephrine infusion. Right flank pain currently under investigation. An abdominal and pelvis CT without contrast showed an 8.2 cm mass within the expected region of the right kidney. There was an enlarged right kidney with perinephric stranding. There was soft tissue density in the subcutaneous and did tissues the right flank at the level of the enlarged kidney. Small amount of air was present within this region. Ecchymosis appeared to extend through the flank to the thigh. Hematoma versus developing abscess are within the differential. Patient's anticoagulants currently on hold. Blood cultures are pending. Lactic acidosis secondary to above Anemia with a hemoglobin of 6.7 gm/dl status post transfusion of 1 unit PRBC. Patient does have baseline anemia of chronic disease. Acute on chronic kidney disease creatinine is currently 3.46. Diabetes mellitus type 2 Hypothyroidism History of CVA History of cognitive delay and memory impairment History of gastric bypass Plan: Patient's medications, labs, chest x-ray reviewed Continue supplemental oxygen to maintain oxygen saturation of 92% or greater Continue norepinephrine to maintain a map greater than 65 Repeat chest x-ray in the morning Obtain urine culture Blood cultures pending Check pro calcitonin level Continue empiric antibiotics Infectious disease and surgical consult ordered obtain renal ultrasound Hold anticoagulation for now Recheck labs in the morning including PT/INR Patient's condition is currently critical, and we will continue to monitor in the intensive care unit I have personally seen and examined the patient, performed the documentation and the assessment and plan as written. Number of minutes spent on the visit:20 Time with Patient: Greater than 30
[2022-05-22] MEDS: HYDROcodone/APAP 7.5-325MG 1 EACH TAB PO PRN ×2 (06:15→16:13)
[2022-05-22 06:20] LABS: INR 1.1 (<1.2); Partial Thromboplastin Time 28.9 sec (22.0-30.0); Prothrombin Time 11.6 sec (9.0-12.0)
[2022-05-22 06:22] LABS: Albumin 2.5 g/dL (3.5-5.0); Calcium 8.7 mg/dL (8.4-10.2); Magnesium 2.3 mg/dL (1.6-2.3); Potassium 4.3 mmol/L (3.5-5.1); Total Bilirubin 0.3 mg/dL (0.2-1.3)
[2022-05-22 06:37] LABS: Anisocytosis Slight; Basophils % (A) 0 %; Eosinophils # (A) 0.1 k/uL (0-0.7); Eosinophils % (A) 0 %; HCT 27.6 % (34.0-46.0); Hypochromasia Marked; Lymphocytes # (A) 0.9 k/uL (1.0-4.8); Lymphocytes % (A) 6 %; MCH 25.9 pg (25.0-35.0); MCHC 30.4 g/dL (31.0-37.0); MCV 85.4 fL (80.0-100.0); Mean Platelet Volume 7.9; Monocytes # (A) 0.6 k/uL (0-1.0); Monocytes % (A) 4 %; Neutrophils % (A) 88 %; Platelet Count 474 k/uL (150-450); Poikilocytosis Moderate; RBC 3.23 m/uL (3.80-5.40); RDW 17.7 % (11.5-15.5); WBC 14.8 k/uL (3.8-10.6)
[2022-05-22 06:38] LABS: HGB 8.4 gm/dL (11.4-16.0)
--- NOTE | 2022-05-22 08:21 | US ---
EXAMINATION TYPE: US renals and bladder DATE OF EXAM: 05/22/2022 COMPARISON: CT one day prior. CLINICAL HISTORY: right flank pain. Pain. CT showed right renal mass. ICU patient. EXAM MEASUREMENTS: Right Kidney: 13.1 x 6.5 x 8.0 cm Right Kidney: Possible mass vs renal tissue at lower pole = 8.5 x 7.4 x 6.5. Possible upper pole cir cular lesion with shadowing at upper pole = 1.6 cm. Left Kidney: Obscured by overlying bowel gas, unable to accurately visualize kidney. Per CT, atrophi c. Bladder: distended, anechoic There is no evidence for hydronephrosis at this point in time. No nephrolithiasis is seen. The urin manav bladder is anechoic. Bilateral ureteral jets are seen. Masslike area within the right kidney as seen on prior CT. IMPRESSION: Masslike area within the lower pole of the kidney on the right similar to CT. Further evaluation with renal mass protocol MRI is recommended. While reviewing the CT from one day prior there is circumferential wall thickening of the sigmoid col on, clinical correlate for signs and symptoms of colitis.
[2022-05-22] MEDS: MULTIVITAMINS, THERA 1 EACH TAB PO SCH (08:46)
[2022-05-22] MEDS: PIPERACILLIN-TAZOBACTAM 3.375 GM in SODIUM CHLORIDE 0.9% 100 ML IVPB SCH ×2 (08:46→21:31)
[2022-05-22] MEDS: SODIUM BICARBONATE TAB 650 MG TAB PO SCH ×2 (08:46→21:29)
[2022-05-22] MEDS: FLUoxetine HCL 20 MG CAP PO SCH (08:46)
[2022-05-22] MEDS: CHOLECALCIFEROL 25 MCG (1000 IU) TABLET PO SCH (08:46)
[2022-05-22] MEDS: FUROSEMIDE 80 MG TAB PO SCH (08:46)
[2022-05-22] MEDS: polyethylene glycoL 3350 17 GM POWD.PACK PO SCH (08:47)
[2022-05-22] MEDS: METOPROLOL SUCCINATE (ER) 50 MG TAB.ER.24H PO SCH (08:47)
[2022-05-22] MEDS: NON FORMULARY DRUG (Norethindrone [Camila] 0.35 MG Tablet) PO SCH (08:47)
[2022-05-22] MEDS ORDERED: FAMOTIDINE 20 MG TAB PO SCH (09:00)
--- NOTE | 2022-05-22 09:00 | XR ---
EXAMINATION TYPE: XR chest 1V portable DATE OF EXAM: 05/22/2022 COMPARISON: NONE HISTORY: Shortness of breath TECHNIQUE: Single frontal view of the chest is obtained. FINDINGS: Right-sided central line seen with tip overlying the right atrium. Surgical clips in the a bdomen. Elevated right hemidiaphragm. Heart size enlarged. No overt failure or pneumothorax. No sizab le pleural effusion. IMPRESSION: No acute process.
--- NOTE | 2022-05-22 12:18 | P.GSCN ---
History of Present Illness Consult date: 05/22/22 Reason for Consult: Enlarged kidney, possible mass Requesting physician: Allen Davenport History of present illness: The patient is a 37-year-old female with a history of CVA, DVT, VT, diabetes mellitus, anemia, pancreatitis, atrophic right kidney, recurrent UTIs with ESBL, and kidney stones requiring surgical intervention. The patient also has a history of renal failure due to an obstructed stent. On 05/21/22 she presented to the emergency department for an abscess on her back, that she believes has been present for a couple days. She is bedbound at home and describes the abscess area to be very painful. She denies any fever, chills, chest pain, abdominal pain, nausea, vomiting, headaches. However, the patient is a poor historian and has memory impairment after suffering her stroke and has a public guardian. An abdominal and pelvis CT without contrast done yesterday showed an 8.2 cm mass within the region of the right kidney. The previously atrophic kidney was enlarged with perinephric stranding. There was soft tissue density subcutaneous and deep tissues the right flank at the level of enlarged kidney. There was small amount of air present within the region. Ecchymosis extended throughout the right flank to the thigh. Correlation for hematoma was recommended. While in the emergency room, the patient became unresponsive and a CODE BLUE was activated. The presenting rhythm was PEA. Patient was successfully resuscitated after 1 round of CPR and 1 amp of epinephrine with an estimated la nena n time of 3 minutes. She did not require intubation. CXR showed no acute cardiopulmonary process. A follow-up CBC showed a hemoglobin of 6.7, hematocrit 22.8, WBC 16, platelets 57. The patient was transfused 1 unit PRBC. Serum creatinine 3.86 upon admission. Review of Systems - Constitutional Denies chills, Denies fever - EENT Ears, nose, mouth and throat: Denies headache - Cardiovascular Denies chest pain - Genitourinary Genitourinary: Denies dysuria, Denies hematuria Past Medical History Past Medical History: CVA/TIA, Deep Vein Thrombosis (DVT), Myocardial Infarction (VT) Additional Past Medical History / Comment(s): morbid obesity, pancreatitis, history of coma - 10/24/14 - until end of december after suffering from a stroke. Last Myocardial Infarction Date:: 10/2014 History of Any Multi-Drug Resistant Organisms: ESBL, Other MDRO Year Discovered:: 07/16/20 ESBL E.coli MDRO Source:: Urine-ESBL Past Surgical History: Cholecystectomy Additional Past Surgical History / Comment(s): Cystoscopy with placement of left double-J catheter 02/16/2018, Gastric bypass 2015 Past Anesthesia/Blood Transfusion Reactions: No Reported Reaction Past Psychological History: Anxiety, Depression, Panic Disorder Smoking Status: Never smoker Past Alcohol Use History: None Reported Additional Past Alcohol Use History / Comment(s): patient smoked in high school Past Drug Use History: Marijuana - Past Family History Father History Unknown: Yes Family Medical History: Cancer Additional Family Medical History / Comment(s): lung Medications and Allergies Home Medications Medication Instructions Recorded Confirmed Type FLUoxetine HCL [PROzac] 20 mg PO DAILY 02/15/18 05/21/22 History Levothyroxine Sodium [Synthroid] 25 mcg PO HS@199902/15/18 05/21/22 History Multivitamins, Thera [Multivitamin 1 tab PO DAILY 02/15/18 05/21/22 History (formulary)] Acetaminophen Tab [Tylenol] 650 mg PO Q6H PRN 09/03/18 05/21/22 History Baclofen 10 mg PO HS@199907/25/20 05/21/22 History Insulin Glargine,Hum.rec.anlog 27 unit SQ HS@199907/25/20 05/21/22 History [Lantus Solostar Pen] Sennosides/Docusate Sodium [Senna 2 cap PO HS@199907/25/20 05/21/22 History Plus 8.6-50 mg Softgel] Atorvastatin [Lipitor] 20 mg PO HS@199909/29/20 05/21/22 History Darbepoetin Kurtis [Aranesp] 25 mcg SQ MO@2200 01/26/21 05/21/22 History Norethindrone [Chani] 0.35 mg PO DAILY 01/26/21 05/21/22 History clomiPRAMINE [Anafranil] 50 mg PO HS@199901/26/21 05/21/22 History Magnesium Hydroxide [Milk of 2,400 mg PO Q72H PRN 02/06/22 05/21/22 History Magnesia] Melatonin 5 mg PO HS@199902/06/22 05/21/22 History Sodium Bicarbonate 650 mg PO BID@0800,199902/06/22 05/21/22 History polyethylene glycoL 3350 [Miralax] 17 gm PO DAILY 02/06/22 05/21/22 History Furosemide [Lasix] 80 mg PO DAILY tab 02/19/22 05/21/22 Rx HYDROcodone/APAP 7.5-325MG [Dwight 1 tab PO Q8H PRN #9 tab 02/19/22 05/21/22 Rx 7.5-325] Metoprolol Succinate (ER) [Toprol 50 mg PO DAILY tab 02/19/22 05/21/22 Rx XL] Apixaban [Eliquis] 2.5 mg PO BID@0800,199905/21/22 05/21/22 History Cholecalciferol [Vitamin D3 (25 75 mcg PO DAILY 05/21/22 05/21/22 History Mcg = 1000 Iu)] Ferrous Sulfate [Feosol] 325 mg PO BID@0800,199905/21/22 05/21/22 History clonazePAM [KlonoPIN] 0.25 mg PO BID@0800,199905/21/22 05/21/22 History Allergies Allergy/AdvReac Type Severity Reaction Status Date / Time aspirin Allergy Rash/Hives Verified 05/21/22 16:14 sertraline HCl [From Zoloft] Allergy Unknown Verified 05/21/22 16:14 zolpidem tartrate Allergy Unknown Verified 05/21/22 16:14 [From Ambien] gabapentin [From Neurontin] AdvReac Severe SEVERE Verified 05/21/22 16:14 AGITATION ibuprofen [From Motrin] AdvReac AVOIDS D/T Verified 05/21/22 16:14 KIDNEY FUNCTION Surgical - Exam Vital Signs Temp Pulse Resp BP Pulse Ox 100.3 F H 113 H 20 93/57 97 05/21/22 15:33 05/21/22 15:33 05/21/22 15:33 05/21/22 15:33 05/21/22 15:33 General: Well developed, well nourished. No acute distress. HEENT: Head is atraumatic, normocephalic. Lungs: Respirations even and nonlabored. On 2L NC. Abdomen/GI: Soft, obese, non-distended. No guarding, rigidity, or abdominal tenderness. Right flank with tenderness and edema. Skin: Warm and dry Neurologic: Memory impairment, CN II-XII grossly intact. Paychiatric: Normal affect and mood Results - Labs 05/22/22 05:46 05/22/22 05:46 Abnormal Lab Results - Last 24 Hours (Table) 05/21/22 05/21/22 05/21/22 Range/Units 15:55 15:55 19:11 WBC 12.2 H (3.8-10.6) k/uL RBC 2.77 L (3.80-5.40) m/uL Hgb 7.0 L (11.4-16.0) gm/dL Hct 23.1 L (34.0-46.0) % MCHC 30.2 L (31.0-37.0) g/dL RDW 18.1 H (11.5-15.5) % Plt Count (150-450) k/uL Neutrophils # 10.4 H (1.3-7.7) k/uL Lymphocytes # 0.9 L (1.0-4.8) k/uL ESR >140 H (0-20) mm/hr Sodium 131 L (137-145) mmol/L Chloride 97 L (98-107) mmol/L Carbon Dioxide (22-30) mmol/L BUN 62 H (7-17) mg/dL Creatinine 3.86 H (0.52-1.04) mg/dL Glucose 179 H (74-99) mg/dL POC Glucose (mg/dL) 140 H (70-110) mg/dL Plasma Lactic Acid Montrell (0.7-2.0) mmol/L Calcium (8.4-10.2) mg/dL Alkaline Phosphatase 187 H (38-126) U/L C-Reactive Protein 33.0 H (<1.0) mg/dL Total Protein (6.3-8.2) g/dL Albumin 2.6 L (3.5-5.0) g/dL Procalcitonin (0.02-0.09) ng/mL Crossmatch 05/21/22 05/21/22 05/21/22 Range/Units 19:25 19:25 19:25 WBC 16.1 H (3.8-10.6) k/uL RBC 2.63 L (3.80-5.40) m/uL Hgb 6.7 L* (11.4-16.0) gm/dL Hct 22.8 L (34.0-46.0) % MCHC 29.4 L (31.0-37.0) g/dL RDW 18.1 H (11.5-15.5) % Plt Count 577 H (150-450) k/uL Neutrophils # (1.3-7.7) k/uL Lymphocytes # (1.0-4.8) k/uL ESR (0-20) mm/hr Sodium 135 L (137-145) mmol/L Chloride (98-107) mmol/L Carbon Dioxide 19 L (22-30) mmol/L BUN 57 H (7-17) mg/dL Creatinine 3.46 H (0.52-1.04) mg/dL Glucose 137 H (74-99) mg/dL POC Glucose (mg/dL) (70-110) mg/dL Plasma Lactic Acid Montrell 2.9 H* (0.7-2.0) mmol/L Calcium 8.3 L (8.4-10.2) mg/dL Alkaline Phosphatase 156 H (38-126) U/L C-Reactive Protein (<1.0) mg/dL Total Protein 6.2 L (6.3-8.2) g/dL Albumin 2.2 L (3.5-5.0) g/dL Procalcitonin (0.02-0.09) ng/mL Crossmatch 05/21/22 05/21/22 05/22/22 Range/Units 19:27 21:29 05:46 WBC 14.8 H (3.8-10.6) k/uL RBC 3.23 L (3.80-5.40) m/uL Hgb 8.4 L D (11.4-16.0) gm/dL Hct 27.6 L (34.0-46.0) % MCHC 30.4 L (31.0-37.0) g/dL RDW 17.7 H (11.5-15.5) % Plt Count 474 H (150-450) k/uL Neutrophils # 13.0 H (1.3-7.7) k/uL Lymphocytes # 0.9 L (1.0-4.8) k/uL ESR (0-20) mm/hr Sodium (137-145) mmol/L Chloride (98-107) mmol/L Carbon Dioxide (22-30) mmol/L BUN (7-17) mg/dL Creatinine (0.52-1.04) mg/dL Glucose (74-99) mg/dL POC Glucose (mg/dL) 146 H (70-110) mg/dL Plasma Lactic Acid Montrell (0.7-2.0) mmol/L Calcium (8.4-10.2) mg/dL Alkaline Phosphatase (38-126) U/L C-Reactive Protein (<1.0) mg/dL Total Protein (6.3-8.2) g/dL Albumin (3.5-5.0) g/dL Procalcitonin (0.02-0.09) ng/mL Crossmatch See Detail 05/22/22 05/22/22 Range/Units 05:46 05:46 WBC (3.8-10.6) k/uL RBC (3.80-5.40) m/uL Hgb (11.4-16.0) gm/dL Hct (34.0-46.0) % MCHC (31.0-37.0) g/dL RDW (11.5-15.5) % Plt Count (150-450) k/uL Neutrophils # (1.3-7.7) k/uL Lymphocytes # (1.0-4.8) k/uL ESR (0-20) mm/hr Sodium (137-145) mmol/L Chloride (98-107) mmol/L Carbon Dioxide 19 L (22-30) mmol/L BUN 59 H (7-17) mg/dL Creatinine 3.49 H (0.52-1.04) mg/dL Glucose 149 H (74-99) mg/dL POC Glucose (mg/dL) (70-110) mg/dL Plasma Lactic Acid Montrell (0.7-2.0) mmol/L Calcium (8.4-10.2) mg/dL Alkaline Phosphatase 185 H (38-126) U/L C-Reactive Protein (<1.0) mg/dL Total Protein (6.3-8.2) g/dL Albumin 2.5 L (3.5-5.0) g/dL Procalcitonin 4.15 H (0.02-0.09) ng/mL Crossmatch Diabetes panel 05/21/22 05/21/22 05/22/22 Range/Units 15:55 19:25 05:46 Sodium 131 L 135 L 137 (137-145) mmol/L Potassium 3.8 3.6 4.3 (3.5-5.1) mmol/L Chloride 97 L 104 105 (98-107) mmol/L Carbon Dioxide 22 19 L 19 L (22-30) mmol/L BUN 62 H 57 H 59 H (7-17) mg/dL Creatinine 3.86 H 3.46 H 3.49 H (0.52-1.04) mg/dL Glucose 179 H 137 H 149 H (74-99) mg/dL Calcium 8.8 8.3 L 8.7 (8.4-10.2) mg/dL AST 22 36 33 (14-36) U/L ALT 23 26 28 (4-34) U/L Alkaline Phosphatase 187 H 156 H 185 H (38-126) U/L Total Protein 6.9 6.2 L 7.0 (6.3-8.2) g/dL Albumin 2.6 L 2.2 L 2.5 L (3.5-5.0) g/dL Calcium panel 05/21/22 05/21/22 05/22/22 Range/Units 15:55 19:25 05:46 Calcium 8.8 8.3 L 8.7 (8.4-10.2) mg/dL Albumin 2.6 L 2.2 L 2.5 L (3.5-5.0) g/dL Pituitary panel 05/21/22 05/21/22 05/22/22 Range/Units 15:55 19:25 05:46 Sodium 131 L 135 L 137 (137-145) mmol/L Potassium 3.8 3.6 4.3 (3.5-5.1) mmol/L Chloride 97 L 104 105 (98-107) mmol/L Carbon Dioxide 22 19 L 19 L (22-30) mmol/L BUN 62 H 57 H 59 H (7-17) mg/dL Creatinine 3.86 H 3.46 H 3.49 H (0.52-1.04) mg/dL Glucose 179 H 137 H 149 H (74-99) mg/dL Calcium 8.8 8.3 L 8.7 (8.4-10.2) mg/dL Adrenal panel 05/21/22 05/21/22 05/22/22 Range/Units 15:55 19:25 05:46 Sodium 131 L 135 L 137 (137-145) mmol/L Potassium 3.8 3.6 4.3 (3.5-5.1) mmol/L Chloride 97 L 104 105 (98-107) mmol/L Carbon Dioxide 22 19 L 19 L (22-30) mmol/L BUN 62 H 57 H 59 H (7-17) mg/dL Creatinine 3.86 H 3.46 H 3.49 H (0.52-1.04) mg/dL Glucose 179 H 137 H 149 H (74-99) mg/dL Calcium 8.8 8.3 L 8.7 (8.4-10.2) mg/dL Total Bilirubin 0.3 0.2 0.3 (0.2-1.3) mg/dL AST 22 36 33 (14-36) U/L ALT 23 26 28 (4-34) U/L Alkaline Phosphatase 187 H 156 H 185 H (38-126) U/L Total Protein 6.9 6.2 L 7.0 (6.3-8.2) g/dL Albumin 2.6 L 2.2 L 2.5 L (3.5-5.0) g/dL - Imaging Chest x-ray: report reviewed CT scan - abdomen: report reviewed, image reviewed CT scan - pelvis: report reviewed, image reviewed US - kidney/bladder: report reviewed Assessment and Plan Assessment: The patient is resting in bed. She denies any difficulty urinating, dysuria, or hematuria prior to admission. She does admit to some urinary frequency. No history of renal or bladder cancer. The patient is unsure of any family history. Renal/bladder ultrasound shows a mass like area within the lower pole of the right kidney similar to CT. The patient is afebrile, mildly tachycardic, on 2 L nasal cannula. She is currently off pressors. Leukocytosis present with a WBC of 14.8, down from 16.1 yesterday. Lactic acid 2.9 yesterday, pro- calcitonin 4.15 today. Hemoglobin stable at 8.4 status post transfusion, and serum creatinine 3.49. Blood cultures and urinalysis reflex to culture pending. The CT scan images were compared to the CT scan in July 2020, at which time the right kidney was atrophic. We believe the findings are more likely to represent a perinephric hematoma with perinephric stranding rather than malignancy. A MRI is not recommended due to the risk of damaging her solitary left kidney with contrast. (1) Right flank mass Current Visit: Yes Status: Acute Code(s): R19.00 - INTRA-ABD AND PELVIC SWELLING, MASS AND LUMP, UNSP SITE SNOMED Code(s): 668239724 Plan: - Awaiting blood and urine cultures - Continue antibiotics per IDs recommendation - Monitor CBC - Monitor serum creatinine - Definitive diagnosis would require CT-guided biopsy/aspiration. If the hemoglobin level drops and the size of the perinephric mass increases, this would be consistent with an enlarging hematoma in which case I would recommend referral to a tertiary care center for right renal arterial embolization. Thank you for this consultation Impression and plan of care have been directed as dictated by the signing physician. Danna Bernal nurse practitioner acting as scribe for signing physician. Danna Bernal [facility] Palliative Care/Urology [employer] [phone] Email: [email or web address] I have personally seen and examined the patient, reviewed the documentation and agree with the assessment and plan as written. Number of minutes spent on the visit: 45. Mac Charles MD Time with Patient: Greater than 30
[2022-05-22 12:32] LABS: Appearance,Urine Turbid (Clear); Bacteria,Urine Moderate /hpf; Bilirubin,Urine Negative (Negative); Blood,Urine Moderate (Negative); Color,Urine Yellow; Glucose,Urine (UA) Negative (Negative); Ketones,Urine Negative (Negative); Leukocyte Esterase,Urine Large (Negative); Mucus,Urine Rare /hpf; Nitrite,Urine Negative (Negative); Protein,Urine 1+ (Negative); RBC,Urine 14 /hpf (0-5); Specific Gravity,Urine 1.015 (1.001-1.035); Squamous Epithelial Cell,Urine 6 /hpf (0-4); Urobilinogen,Urine <2.0 mg/dL (<2.0); WBC,Urine >182 /hpf (0-5)
--- NOTE | 2022-05-22 14:10 | P.GSCN ---
History of Present Illness Consult date: 05/22/22 History of present illness: CHIEF COMPLAINT: Right flank pain HISTORY OF PRESENT ILLNESS: This is a 37-year-old female who presents with right flank pain over the last couple days. Patient is bedbound after suffering a stroke. Patient does have ecchymosis along the right flank. She is Eliquis with history of DVT. Patient did have elevated white count on admission with with low-grade fever. Her hemoglobin on admission was 6.7 she did receive 1 unit of blood hemoglobin did come up to 8.4. She had also been hypotensive. Patient did have cardiac arrest in the ER. She did receive chest compressions with return of spontaneous circulation. Patient admitted to the ICU. Patient is awake and alert. Patient is a poor historian. She does have a known history of memory impairment. Computed tomography scan abdomen and pelvis shows a soft tissue density in the subcutaneous and deep tissues of the right flank at the level of the large kidney. Ecchymosis appears to extend through the flank to the thigh correlate for hematoma. Eliquis is on hold. PAST MEDICAL HISTORY: See below PAST SURGICAL HISTORY: See below MEDICATIONS: See below ALLERGIES: See below SOCIAL HISTORY: No illicit drug use. REVIEW OF SYSTEMS: CONSTITUTIONAL: Denies fever or chills. HEENT: Denies blurred vision, vision changes, or eye pain. Denies hemoptysis CARDIOVASCULAR: Denies chest pain or pressure. RESPIRATORY: No shortness of breath. GASTROINTESTINAL: See HPI for pertinent findings HEMATOLOGIC: Denies bleeding disorders. GENITOURINARY: Denies any blood in urine or increased urinary frequency. SKIN: Denies pruitis. Denies rash. PHYSICAL EXAM: VITAL SIGNS: Reviewed GENERAL: Well-developed in no acute distress. HEENT: No sclera icterus. Extraocular movements grossly intact. Moist buccal mucosa. Head is atraumatic, normocephalic. No nasal drainage. ABDOMEN: Soft. Obese. Nondistended. Tenderness with palpation of the right flank. Limited exam unable to roll patient. However there is small amount of ecchymosis noted in the right flank that can be visualized while she is on her back NEUROLOGIC: Alert and oriented. Cranial nerves II through XII grossly intact. LABORATORY DATA: WBC 16.114.8 Hgb 6.7 up to 8.4 platelets 474 INR 1.1 sodium is 137 potassium 4.3 creatinine 3.49 lactic acid 2.9 CRP 33 Procalcitonin 4.15 IMAGING: Computed tomography scan shows right kidney appears to have enlarged from the atrophic appearance prior to the current examination. Perinephric stranding is present. Soft tissue density in the subcutaneous and deep tissues the right flank at the level of the enlarged kidney. Small amount of air is present within this region. Ecchymosis appears to extend through the flank to the thigh. Correlate for hematoma. Other etiologies include sarcoma or other neoplasm. ASSESSMENT: 1. Right flank pain 2. Possible kidney mass, enlarging right kidney noted on computed tomography scan 3. Soft tissue density in the right flank at the level of her kidney, possible hematoma PLAN: -Recommend urology consult for large kidney and possible mass -No surgical intervention planned -Continue supportive care -Continue to monitor hemoglobin Physician Dispatcher [place] note has been reviewed by physician. Signing provider agrees with the documented findings, assessment, and plan of care. Past Medical History Past Medical History: CVA/TIA, Deep Vein Thrombosis (DVT), Myocardial Infarction ([place]) Additional Past Medical History / Comment(s): morbid obesity, pancreatitis, history of coma - 10/24/14 - until end of december after suffering from a stroke. Last Myocardial Infarction Date:: 10/2014 History of Any Multi-Drug Resistant Organisms: ESBL, Other MDRO Year Discovered:: 07/16/20 ESBL E.coli MDRO Source:: Urine-ESBL Past Surgical History: Cholecystectomy Additional Past Surgical History / Comment(s): Cystoscopy with placement of left double-J catheter 02/16/2018, Gastric bypass 2016 Past Anesthesia/Blood Transfusion Reactions: No Reported Reaction Past Psychological History: Anxiety, Depression, Panic Disorder Smoking Status: Never smoker Past Alcohol Use History: None Reported Additional Past Alcohol Use History / Comment(s): patient smoked in high school Past Drug Use History: Marijuana - Past Family History Father History Unknown: Yes Family Medical History: Cancer Additional Family Medical History / Comment(s): lung Medications and Allergies Home Medications Medication Instructions Recorded Confirmed Type FLUoxetine HCL [PROzac] 20 mg PO DAILY 02/15/18 05/21/22 History Levothyroxine Sodium [Synthroid] 25 mcg PO HS@199902/15/18 05/21/22 History Multivitamins, Thera [Multivitamin 1 tab PO DAILY 02/15/18 05/21/22 History (formulary)] Acetaminophen Tab [Tylenol] 650 mg PO Q6H PRN 09/03/18 05/21/22 History Baclofen 10 mg PO HS@199907/25/20 05/21/22 History Insulin Glargine,Hum.rec.anlog 27 unit SQ HS@199907/25/20 05/21/22 History [Lantus Solostar Pen] Sennosides/Docusate Sodium [Senna 2 cap PO HS@199907/25/20 05/21/22 History Plus 8.6-50 mg Softgel] Atorvastatin [Lipitor] 20 mg PO HS@199909/29/20 05/21/22 History Darbepoetin [place] [Aranesp] 25 mcg [place]Q [place]@22001/26/21 05/21/22 History Norethindrone [Chani] 0.35 mg PO DAILY 01/26/21 05/21/22 History clomiPRAMINE [Anafranil] 50 mg PO HS@199901/26/21 05/21/22 History Magnesium Hydroxide [Milk of 2,400 mg PO Q72H PRN 02/06/22 05/21/22 History Magnesia] Melatonin 5 mg PO HS@199902/06/22 05/21/22 History Sodium Bicarbonate 650 mg PO BID@0800,199902/06/22 05/21/22 History polyethylene glycoL 3350 [Miralax] 17 gm PO DAILY 02/06/22 05/21/22 History Furosemide [Lasix] 80 mg PO DAILY tab 02/19/22 05/21/22 Rx HYDROcodone/APAP 7.5-325MG [[place] 1 tab PO Q8H PRN #9 tab 02/19/22 05/21/22 Rx 7.5-325] Metoprolol Succinate (ER) [Toprol 50 mg PO DAILY tab 02/19/22 05/21/22 Rx XL] Apixaban [Eliquis] 2.5 mg PO BID@0800,199905/21/22 05/21/22 History Cholecalciferol [Vitamin D3 (25 75 mcg PO DAILY 05/21/22 05/21/22 History Mcg = 1000 Iu)] Ferrous Sulfate [Feosol] 325 mg PO BID@0800,199905/21/22 05/21/22 History clonazePAM [KlonoPIN] 0.25 mg PO BID@0805/21/22 05/21/22 History Allergies Allergy/AdvReac Type Severity Reaction Status Date / Time aspirin Allergy Rash/Hives Verified 05/21/22 16:14 sertraline HCl [From Zoloft] Allergy Unknown Verified 05/21/22 16:14 zolpidem tartrate Allergy Unknown Verified 05/21/22 16:14 [From Ambien] gabapentin [From Neurontin] AdvReac Severe SEVERE Verified 05/21/22 16:14 AGITATION ibuprofen [From Motrin] AdvReac AVOIDS D/T Verified 05/21/22 16:14 KIDNEY FUNCTION Surgical - Exam Vital Signs Temp Pulse Resp BP Pulse Ox 100.3 F H 113 H 20 93/57 97 05/21/22 15:33 05/21/22 15:33 05/21/22 15:33 05/21/22 15:33 05/21/22 15:33 Results - Labs 05/22/22 05:46 05/22/22 05:46 Abnormal Lab Results - Last 24 Hours (Table) 05/21/22 05/21/22 05/21/22 Range/Units 15:55 15:55 19:11 WBC 12.2 H (3.8-10.6) k/uL RBC 2.77 L (3.80-5.40) m/uL Hgb 7.0 L (11.4-16.0) gm/dL Hct 23.1 L (34.0-46.0) % MCHC 30.2 L (31.0-37.0) g/dL RDW 18.1 H (11.5-15.5) % Plt Count (150-450) k/uL Neutrophils # 10.4 H (1.3-7.7) k/uL Lymphocytes # 0.9 L (1.0-4.8) k/uL ESR >140 H (0-20) mm/hr Sodium 131 L (137-145) mmol/L Chloride 97 L (98-107) mmol/L Carbon Dioxide (22-30) mmol/L BUN 62 H (7-17) mg/dL Creatinine 3.86 H (0.52-1.04) mg/dL Glucose 179 H (74-99) mg/dL POC Glucose (mg/dL) 140 H (70-110) mg/dL Plasma Lactic Acid [place] (0.7-2.0) mmol/L Calcium (8.4-10.2) mg/dL Alkaline Phosphatase 187 H (38-126) U/L C-Reactive Protein 33.0 H (<1.0) mg/dL Total Protein (6.3-8.2) g/dL Albumin 2.6 L (3.5-5.0) g/dL Procalcitonin (0.02-0.09) ng/mL Crossmatch 05/21/22 05/21/22 05/21/22 Range/Units 19:25 19:25 19:25 WBC 16.1 H (3.8-10.6) k/uL RBC 2.63 L (3.80-5.40) m/uL Hgb 6.7 L* (11.4-16.0) gm/dL Hct 22.8 L (34.0-46.0) % MCHC 29.4 L (31.0-37.0) g/dL RDW 18.1 H (11.5-15.5) % Plt Count 577 H (150-450) k/uL Neutrophils # (1.3-7.7) k/uL Lymphocytes # (1.0-4.8) k/uL ESR (0-20) mm/hr Sodium 135 L (137-145) mmol/L Chloride (98-107) mmol/L Carbon Dioxide 19 L (22-30) mmol/L BUN 57 H (7-17) mg/dL Creatinine 3.46 H (0.52-1.04) mg/dL Glucose 137 H (74-99) mg/dL POC Glucose (mg/dL) (70-110) mg/dL Plasma Lactic Acid [place] 2.9 H* (0.7-2.0) mmol/L Calcium 8.3 L (8.4-10.2) mg/dL Alkaline Phosphatase 156 H (38-126) U/L C-Reactive Protein (<1.0) mg/dL Total Protein 6.2 L (6.3-8.2) g/dL Albumin 2.2 L (3.5-5.0) g/dL Procalcitonin (0.02-0.09) ng/mL Crossmatch 04/12/0305/21/22 05/22/22 Range/Units 19:27 21:29 05:46 WBC 14.8 H (3.8-10.6) k/uL RBC 3.23 L (3.80-5.40) m/uL Hgb 8.4 L D (11.4-16.0) gm/dL Hct 27.6 L (34.0-46.0) % MCHC 30.4 L (31.0-37.0) g/dL RDW 17.7 H (11.5-15.5) % Plt Count 474 H (150-450) k/uL Neutrophils # 13.0 H (1.3-7.7) k/uL Lymphocytes # 0.9 L (1.0-4.8) k/uL ESR (0-20) mm/hr Sodium (137-145) mmol/L Chloride (98-107) mmol/L Carbon Dioxide (22-30) mmol/L BUN (7-17) mg/dL Creatinine (0.52-1.04) mg/dL Glucose (74-99) mg/dL POC Glucose (mg/dL) 146 H (70-110) mg/dL Plasma Lactic Acid [place] (0.7-2.0) mmol/L Calcium (8.4-10.2) mg/dL Alkaline Phosphatase (38-126) U/L C-Reactive Protein (<1.0) mg/dL Total Protein (6.3-8.2) g/dL Albumin (3.5-5.0) g/dL Procalcitonin (0.02-0.09) ng/mL Crossmatch See Detail 05/22/22 05/22/22 Range/Units 05:46 05:46 WBC (3.8-10.6) k/uL RBC (3.80-5.40) m/uL Hgb (11.4-16.0) gm/dL Hct (34.0-46.0) % MCHC (31.0-37.0) g/dL RDW (11.5-15.5) % Plt Count (150-450) k/uL Neutrophils # (1.3-7.7) k/uL Lymphocytes # (1.0-4.8) k/uL ESR (0-20) mm/hr Sodium (137-145) mmol/L Chloride (98-107) mmol/L Carbon Dioxide 19 L (22-30) mmol/L BUN 59 H (7-17) mg/dL Creatinine 3.49 H (0.52-1.04) mg/dL Glucose 149 H (74-99) mg/dL POC Glucose (mg/dL) (70-110) mg/dL Plasma Lactic Acid [place] (0.7-2.0) mmol/L Calcium (8.4-10.2) mg/dL Alkaline Phosphatase 185 H (38-126) U/L C-Reactive Protein (<1.0) mg/dL Total Protein (6.3-8.2) g/dL Albumin 2.5 L (3.5-5.0) g/dL Procalcitonin 4.15 H (0.02-0.09) ng/mL Crossmatch Diabetes panel 05/21/22 05/21/22 05/22/22 Range/Units 15:55 19:25 05:46 Sodium 131 L 135 L 137 (137-145) mmol/L Potassium 3.8 3.6 4.3 (3.5-5.1) mmol/L Chloride 97 L 104 105 (98-107) mmol/L Carbon Dioxide 22 19 L 19 L (22-30) mmol/L BUN 62 H 57 H 59 H (7-17) mg/dL Creatinine 3.86 H 3.46 H 3.49 H (0.52-1.04) mg/dL Glucose 179 H 137 H 149 H (74-99) mg/dL Calcium 8.8 8.3 L 8.7 (8.4-10.2) mg/dL AST 22 36 33 (14-36) U/L ALT 23 26 28 (4-34) U/L Alkaline Phosphatase 187 H 156 H 185 H (38-126) U/L Total Protein 6.9 6.2 L 7.0 (6.3-8.2) g/dL Albumin 2.6 L 2.2 L 2.5 L (3.5-5.0) g/dL Calcium panel 05/21/22 05/21/22 05/22/22 Range/Units 15:55 19:25 05:46 Calcium 8.8 8.3 L 8.7 (8.4-10.2) mg/dL Albumin 2.6 L 2.2 L 2.5 L (3.5-5.0) g/dL Pituitary panel 05/21/22 05/21/22 05/22/22 Range/Units 15:55 19:25 05:46 Sodium 131 L 135 L 137 (137-145) mmol/L Potassium 3.8 3.6 4.3 (3.5-5.1) mmol/L Chloride 97 L 104 105 (98-107) mmol/L Carbon Dioxide 22 19 L 19 L (22-30) mmol/L BUN 62 H 57 H 59 H (7-17) mg/dL Creatinine 3.86 H 3.46 H 3.49 H (0.52-1.04) mg/dL Glucose 179 H 137 H 149 H (74-99) mg/dL Calcium 8.8 8.3 L 8.7 (8.4-10.2) mg/dL Adrenal panel 05/21/22 05/21/22 05/22/22 Range/Units 15:55 19:25 05:46 Sodium 131 L 135 L 137 (137-145) mmol/L Potassium 3.8 3.6 4.3 (3.5-5.1) mmol/L Chloride 97 L 104 105 (98-107) mmol/L Carbon Dioxide 22 19 L 19 L (22-30) mmol/L BUN 62 H 57 H 59 H (7-17) mg/dL Creatinine 3.86 H 3.46 H 3.49 H (0.52-1.04) mg/dL Glucose 179 H 137 H 149 H (74-99) mg/dL Calcium 8.8 8.3 L 8.7 (8.4-10.2) mg/dL Total Bilirubin 0.3 0.2 0.3 (0.2-1.3) mg/dL AST 22 36 33 (14-36) U/L ALT 23 26 28 (4-34) U/L Alkaline Phosphatase 187 H 156 H 185 H (38-126) U/L Total Protein 6.9 6.2 L 7.0 (6.3-8.2) g/dL Albumin 2.6 L 2.2 L 2.5 L (3.5-5.0) g/dL
[2022-05-22] MEDS ORDERED: DEXTROSE 50% SYRINGE 50 ML IVP PRN ×2 (18:25)
--- NOTE | 2022-05-22 18:30 | P.HPIM ---
History of Present Illness H&P Date: 05/22/22 Chief Complaint: Right flank pain 37-year-old female with a known history of CVA with right-sided weakness, cognitive impairment, history of gastric bypass surgery, history of DVT on eliquis. oxygen at 2 L via nasal cannula since her COVID infection. CKD with baseline creatinine level around 3.0. resident of [facility] - long-term resident. known history of irregular vaginal bleeding - polycystic ovarian syndrome.. multiple DVTs in the past. Following gastric bypass surgery patient had a stroke and myocardial infarction. - resulted in cognitive impairment. poor short-term memory. - bedbound. contracture of the left hand and foot drop on the right leg. history of hyperlipidemia anxiety hypertension hypothyroid diabetes. Patient has a legal guardian Chandrika Special note: Patient always request more pain medications. But if explained she that this leads to her mental status changing and she is finding the same. This should be kept in mind when she asked for pain medications repeatedly. Will need to be given when she is uncomfortable. Once explained she becomes rather comfortable. Presented to the ER right flank pain and fever. For 2 days. Did have ecchymosis along the right flank. Hemoglobin was noted to be 6.7 did receive 1 unit of blood. In the ER patient had a cardiac arrest felt to be PEA as he suddenly became unresponsive. He received chest compression and spontaneous return of circulation. And moved to the ICU. Has baseline memory impairment. Patient is started on ceftriaxone in the ER. Patient was then put on levo fed drip. Patient overnight was on BiPAP. This morning down to 2 L. Review of systems: GEN.: Fever. EYES: None HEENT: None NECK: None RESPIRATORY: None CARDIOVASCULAR: None GASTROINTESTINAL: Right flank pain] GENITOURINARY: None MUSCULOSKELETAL: None LYMPHATICS: None HEMATOLOGICAL: None PSYCHIATRY: Forgetful NEUROLOGICAL: See above Past medical history to include: Stroke resulting in decreased memory (contracture, following, in 2015 following surgery, DVT, [place], gastric bypass in 2016, anxiety depression, muscle spasms, irregular menstrual bleeding, hypertension, hypothyroid chronic pain in the hands / back. Irregular vaginal bleeding-polycystic ovary syndrome. Multiple DVTs in the past. Following gastric bypass surgery patient had a stroke and myocardial infarction. Resulting in cognitive impairment. Hyperlipidemia, anxiety, hypertension, hypothyroid Social history: long-term resident of [facility] on, no smoking. Did smoke marijuana in high school. Pretty much bedbound. Has a legal guardian Chandrika Physical examination: VITAL SIGNS: 100.3, 113, 20, 93/57, 97% on 2 L upon presentation GENERAL: Reclining in bed,, comfortable EYES: Pupils equal. Conjunctiva pale. HEENT: External appearance of nose and ears normal, oral cavity grossly normal. NECK: JVD unable to assess masses not palpable. HEART: Heart sounds are muffled; no edema. LUNGS: Respiratory rate normal; distant breath sounds. ABDOMEN: Soft, nontender, liver spleen not palpable, no masses palpable. PSYCH: Answering simple. Mood and affect normal. Forgetful NEUROLOGICAL: [Cranial nerves grossly intact; no facial asymmetry, contracture of the left hand. Right Foot drop INVESTIGATIONS, reviewed in the clinical context: 05/22/2022: White count 14.8 hemoglobin 8.4 platelets 474, sodium 137 creatinine 3.49 UA: Leukoesterase large. WBC 182 nitrate negative Admission labs: White count 16.1 hemoglobin 6.7 platelets 577 sodium 135 potassium 3.6 BUN 57 creatinine 3.46 lactic acid 2.[address] abdomen pelvis without contrast: Right adrenal gland not identified. Gallbladder surgically absent. 8.2 cm mass within the expected region of the right kidney. This was previously an atrophic kidney. That was enlarged. Maria Dolores nephric stranding. Soft tissue density in the posterior right flank is a level of this right kidney. Small amount of air is present in the region of the right kidney. Ecchymosis appears to extend to the flank to the thigh. Chest x-ray film personally reviewed by me-infiltrate versus edema possible. EKG tracing personally reviewed by me-heart rate 108. Sinus tachycardia Renal ultrasound: Masslike area within the lower pole of the kidney in the right. Circumferentially wall thickening of the sigmoid colon. Assessment plan: -Suspect infected hematoma secondary to patient being on eliquis in the right renal fossa vein was present atrophic kidney previously. This seems to track down to the thigh. Received IV ceftriaxone in ER. Blood cultures pending. ID consulted. -PEA cardiac arrest witnessed lasting about 3 minutes. Patient did receive 1 amp of epinephrine and CPR. Fluid bolus and levo fed. -Combination of septic shock and hypovolemic shock from bleeding./Hematoma. Fluid resuscitation, IV levo fed. IV antibiotics. -Acute hypoxic respiratory failure from combination of obesity hypoventilation, questionable pneumonia. Initially placed on BiPAP now down to 2 L this morning -Chronic hypoxic respiratory failure On 2 L of nasal cannula at baseline -Chronic medical debility, patient is not ambulatory -Anemia of chronic kidney disease Hemoglobin was 7.3 on February 2022 - obesity BMI 36.7 -Chronic left hand contracture, right foot drop -Chronic multiple DVTs eliquis 2.5 mg held -Hyperlipidemia Lipitor 20 mg daily at bedtime -Muscle spasm Baclofen 10 mg daily at bedtime -Essential hypertension Toprol-XL -Hypothyroid Synthroid 25 g at bedtime -Diabetes mellitus type 2, chronic on insulin On Levaquin Levemir 20 mg daily at bedtime. Follow Accu-Cheks -Chronic pain in the left hand and lower back. [place] 7.5 every 12 when necessary -Anxiety depression Patient on Klonopin 0.5 mg daily at bedtime Prozac 20 mg daily-outpatient -Bilateral nonobstructing renal calculi,-asymptomatic -Chronic kidney disease stage 4 from obstructive uropathy with a history of left ureteral stent. Creatinine 3.26 on 02/19/2022 -Right renal atrophy -Full code Patient ICU. On IV Zosyn and IV daptomycin. Consultants include Gen. surgery, urology, customer liaison, ID. Past Medical History Past Medical History: CVA/TIA, Deep Vein Thrombosis (DVT), Myocardial Infarction ([place]) Additional Past Medical History / Comment(s): morbid obesity, pancreatitis, history of coma - 10/24/14 - until end of december after suffering from a stroke. Last Myocardial Infarction Date:: 10/2014 History of Any Multi-Drug Resistant Organisms: ESBL, Other MDRO Date of last positivie culture/infection: 07/16/20 ESBL E.coli MDRO Source:: Urine-ESBL Past Surgical History: Cholecystectomy Additional Past Surgical History / Comment(s): Cystoscopy with placement of left double-J catheter 02/16/2018, Gastric bypass 2016 Past Anesthesia/Blood Transfusion Reactions: No Reported Reaction Past Psychological History: Anxiety, Depression, Panic Disorder Smoking Status: Never smoker Past Alcohol Use History: None Reported Additional Past Alcohol Use History / Comment(s): patient smoked in high school Past Drug Use History: Marijuana - Past Family History Father History Unknown: Yes Family Medical History: Cancer Additional Family Medical History / Comment(s): lung Medications and Allergies Home Medications Medication Instructions Recorded Confirmed Type FLUoxetine HCL [PROzac] 20 mg PO DAILY 02/15/18 05/21/22 History Levothyroxine Sodium [Synthroid] 25 mcg PO HS@199902/15/18 05/21/22 History Multivitamins, Thera [Multivitamin 1 tab PO DAILY 02/15/18 05/21/22 History (formulary)] Acetaminophen Tab [Tylenol] 650 mg PO Q6H PRN 09/03/18 05/21/22 History Baclofen 10 mg PO HS@199907/25/20 05/21/22 History Insulin Glargine,Hum.rec.anlog 27 unit SQ HS@199907/25/20 05/21/22 History [Lantus Solostar Pen] Sennosides/Docusate Sodium [Senna 2 cap PO HS@199907/25/20 05/21/22 History Plus 8.6-50 mg Softgel] Atorvastatin [Lipitor] 20 mg PO HS@199909/29/20 05/21/22 History Darbepoetin Kurtis [Aranesp] 25 mcg SQ [place]@22001/26/21 05/21/22 History Norethindrone [Chani] 0.35 mg PO DAILY 01/26/21 05/21/22 History clomiPRAMINE [Anafranil] 50 mg PO HS@199901/26/21 05/21/22 History Magnesium Hydroxide [Milk of 2,400 mg PO Q72H PRN 02/06/22 05/21/22 History Magnesia] Melatonin 5 mg PO HS@199902/06/22 05/21/22 History Sodium Bicarbonate 650 mg PO BID@0800,199902/06/22 05/21/22 History polyethylene glycoL 3350 [Miralax] 17 gm PO DAILY 02/06/22 05/21/22 History Furosemide [Lasix] 80 mg PO DAILY tab 02/19/22 05/21/22 Rx HYDROcodone/APAP 7.5-325MG [[place] 1 tab PO Q8H PRN #9 tab 02/19/22 05/21/22 Rx 7.5-325] Metoprolol Succinate (ER) [Toprol 50 mg PO DAILY tab 02/19/22 05/21/22 Rx XL] Apixaban [Eliquis] 2.5 mg PO BID@08,199905/21/22 05/21/22 History Cholecalciferol [Vitamin D3 (25 75 mcg PO DAILY 05/21/22 05/21/22 History Mcg = 1000 Iu)] Ferrous Sulfate [Feosol] 325 mg PO BID@0800,199905/21/22 05/21/22 History clonazePAM [KlonoPIN] 0.25 mg PO BID@0800,199905/21/22 05/21/22 History Allergies Allergy/AdvReac Type Severity Reaction Status Date / Time aspirin Allergy Rash/Hives Verified 05/21/22 16:14 sertraline HCl [From Zoloft] Allergy Unknown Verified 05/21/22 16:14 zolpidem tartrate Allergy Unknown Verified 05/21/22 16:14 [From Ambien] gabapentin [From Neurontin] AdvReac Severe SEVERE Verified 05/21/22 16:14 AGITATION ibuprofen [From Motrin] AdvReac AVOIDS D/T Verified 05/21/22 16:14 KIDNEY FUNCTION Physical Exam Vitals: Vital Signs Temp Pulse Resp BP Pulse Ox 05/22/22 16:00 97.6 F 115 H 27 H 94/60 90 L 05/22/22 15:00 111 H 12 105/56 96 05/22/22 14:00 111 H 20 109/57 97 05/22/22 13:00 110 H 24 99/79 94 L 05/22/22 12:00 98 F 105 H 14 112/76 96 05/22/22 11:30 110 H 21 101/64 94 L 05/22/22 11:00 110 H 22 104/57 95 05/22/22 10:30 105 H 20 90/61 97 05/22/22 10:00 100 18 92/57 96 05/22/22 09:30 111 H 15 88/62 97 05/22/22 09:00 110 H 24 97/72 97 05/22/22 08:30 110 H 10 L 103/64 98 05/22/22 08:03 100 05/22/22 08:00 97.9 F 105 H 14 104/58 100 05/22/22 07:30 105 H 114/68 99 05/22/22 07:00 19 113/70 100 05/22/22 06:30 18 107/65 100 05/22/22 06:00 38 H 114/71 100 05/22/22 05:30 18 118/76 93 L 05/22/22 05:00 15 94/68 100 05/22/22 04:30 14 116/70 100 05/22/22 04:00 97.4 F L 16 129/72 98 05/22/22 03:30 16 120/59 99 05/22/22 03:00 15 105/49 100 05/22/22 02:30 88 14 101/70 100 05/22/22 02:00 85 12 109/69 100 05/22/22 01:55 97.9 F 86 14 111/76 100 05/22/22 01:30 89 12 112/75 100 05/22/22 01:00 87 13 107/70 100 05/22/22 00:30 98.2 F 92 45 H 113/67 99 05/22/22 00:03 103 H 16 111/54 95 05/22/22 00:00 100 33 H 106/68 96 05/21/22 23:43 98.2 F 101 H 17 106/68 98 05/21/22 23:30 105 H 31 H 101/74 96 05/21/22 23:00 103 H 14 110/71 100 05/21/22 22:30 102 H 26 H 120/66 100 05/21/22 22:00 92 49 H 109/70 100 05/21/22 21:30 105 H 21 05/21/22 21:00 99 108/67 100 05/21/22 20:30 100/42 100 05/21/22 20:00 112 H 81/41 100 05/21/22 19:49 117/99 100 05/21/22 19:47 112 H 24 117/99 100 05/21/22 19:44 112 H 28 H 132/114 92 L 05/21/22 19:32 108 H 22 63/40 100 05/21/22 19:29 109 H 28 H 83/49 100 05/21/22 18:00 98.8 F 97 16 110/68 98 Intake and Output 05/22/22 05/22/22 05/22/22 06:59 14:59 22:59 Intake Total 511.362 140 70 Output Total 0 200 1 Balance 511.362 -60 69 Intake: IV 70 140 20 0.9 KVO 70 40 20 Sodium Chloride 0.9% 1, 100 000 ml @ 999 mls/hr IV . Q1H1M STA Rx#:[id number] Intake, IV Titration 131.362 50 Amount DAPTOmycin 450 mg In 50 Sodium Chloride 0.9% 50 ml @ 100 mls/hr IVPB Q48H WILDER Rx#:[id number] Norepinephrine 8 mg In 131.362 Sodium Chloride 0.9% 250 ml @ 0.03 MCG/KG/MIN 5. 609 mls/hr IV .Q24H WILDER Rx#:[id number] Blood Product 310 Rc As-1 Unit 310 [id number] Output: Urine 0 200 Stool 1 Other: Voiding Method External Catheter External Catheter # Voids 1 Weight 97 kg 97 kg Results CBC & Chem 7: 05/22/22 05:46 05/22/22 05:46 Labs: Abnormal Lab Results - Last 24 Hours (Table) 05/21/22 05/21/22 05/21/22 Range/Units 19:11 19:25 19:25 WBC 16.1 H (3.8-10.6) k/uL RBC 2.63 L (3.80-5.40) m/uL Hgb 6.7 L* (11.4-16.0) gm/dL Hct 22.8 L (34.0-46.0) % MCHC 29.4 L (31.0-37.0) g/dL RDW 18.1 H (11.5-15.5) % Plt Count 577 H (150-450) k/uL Neutrophils # (1.3-7.7) k/uL Lymphocytes # (1.0-4.8) k/uL Sodium 135 L (137-145) mmol/L Carbon Dioxide 19 L (22-30) mmol/L BUN 57 H (7-17) mg/dL Creatinine 3.46 H (0.52-1.04) mg/dL Glucose 137 H (74-99) mg/dL POC Glucose (mg/dL) 140 H (70-110) mg/dL Plasma Lactic Acid [place] (0.7-2.0) mmol/L Calcium 8.3 L (8.4-10.2) mg/dL Alkaline Phosphatase 156 H (38-126) U/L Total Protein 6.2 L (6.3-8.2) g/dL Albumin 2.2 L (3.5-5.0) g/dL Procalcitonin (0.02-0.09) ng/mL Urine Appearance (Clear) Urine Protein (Negative) Urine Blood (Negative) Ur Leukocyte Esterase (Negative) Urine RBC (0-5) /hpf Urine WBC (0-5) /hpf Urine WBC Clumps (None) /hpf Ur Squamous Epith Cells (0-4) /hpf Urine Bacteria (None) /hpf Urine Mucus (None) /hpf Crossmatch 05/21/22 05/21/22 05/21/22 Range/Units 19:25 19:27 21:29 WBC (3.8-10.6) k/uL RBC (3.80-5.40) m/uL Hgb (11.4-16.0) gm/dL Hct (34.0-46.0) % MCHC (31.0-37.0) g/dL RDW (11.5-15.5) % Plt Count (150-450) k/uL Neutrophils # (1.3-7.7) k/uL Lymphocytes # (1.0-4.8) k/uL Sodium (137-145) mmol/L Carbon Dioxide (22-30) mmol/L BUN (7-17) mg/dL Creatinine (0.52-1.04) mg/dL Glucose (74-99) mg/dL POC Glucose (mg/dL) 146 H (70-110) mg/dL Plasma Lactic Acid [place] 2.9 H* (0.7-2.0) mmol/L Calcium (8.4-10.2) mg/dL Alkaline Phosphatase (38-126) U/L Total Protein (6.3-8.2) g/dL Albumin (3.5-5.0) g/dL Procalcitonin (0.02-0.09) ng/mL Urine Appearance (Clear) Urine Protein (Negative) Urine Blood (Negative) Ur Leukocyte Esterase (Negative) Urine RBC (0-5) /hpf Urine WBC (0-5) /hpf Urine WBC Clumps (None) /hpf Ur Squamous Epith Cells (0-4) /hpf Urine Bacteria (None) /hpf Urine Mucus (None) /hpf Crossmatch See Detail 05/22/22 05/22/22 05/22/22 Range/Units 05:46 05:46 05:46 WBC 14.8 H (3.8-10.6) k/uL RBC 3.23 L (3.80-5.40) m/uL Hgb 8.4 L D (11.4-16.0) gm/dL Hct 27.6 L (34.0-46.0) % MCHC 30.4 L (31.0-37.0) g/dL RDW 17.7 H (11.5-15.5) % Plt Count 474 H (150-450) k/uL Neutrophils # 13.0 H (1.3-7.7) k/uL Lymphocytes # 0.9 L (1.0-4.8) k/uL Sodium (137-145) mmol/L Carbon Dioxide 19 L (22-30) mmol/L BUN 59 H (7-17) mg/dL Creatinine 3.49 H (0.52-1.04) mg/dL Glucose 149 H (74-99) mg/dL POC Glucose (mg/dL) (70-110) mg/dL Plasma Lactic Acid [place] (0.7-2.0) mmol/L Calcium (8.4-10.2) mg/dL Alkaline Phosphatase 185 H (38-126) U/L Total Protein (6.3-8.2) g/dL Albumin 2.5 L (3.5-5.0) g/dL Procalcitonin 4.15 H (0.02-0.09) ng/mL Urine Appearance (Clear) Urine Protein (Negative) Urine Blood (Negative) Ur Leukocyte Esterase (Negative) Urine RBC (0-5) /hpf Urine WBC (0-5) /hpf Urine WBC Clumps (None) /hpf Ur Squamous Epith Cells (0-4) /hpf Urine Bacteria (None) /hpf Urine Mucus (None) /hpf Crossmatch 05/22/22 Range/Units 11:46 WBC (3.8-10.6) k/uL RBC (3.80-5.40) m/uL Hgb (11.4-16.0) gm/dL Hct (34.0-46.0) % MCHC (31.0-37.0) g/dL RDW (11.5-15.5) % Plt Count (150-450) k/uL Neutrophils # (1.3-7.7) k/uL Lymphocytes # (1.0-4.8) k/uL Sodium (137-145) mmol/L Carbon Dioxide (22-30) mmol/L BUN (7-17) mg/dL Creatinine (0.52-1.04) mg/dL Glucose (74-99) mg/dL POC Glucose (mg/dL) (70-110) mg/dL Plasma Lactic Acid [place] (0.7-2.0) mmol/L Calcium (8.4-10.2) mg/dL Alkaline Phosphatase (38-126) U/L Total Protein (6.3-8.2) g/dL Albumin (3.5-5.0) g/dL Procalcitonin (0.02-0.09) ng/mL Urine Appearance Turbid H (Clear) Urine Protein 1+ H (Negative) Urine Blood Moderate H (Negative) Ur Leukocyte Esterase Large H (Negative) Urine RBC 14 H (0-5) /hpf Urine WBC >182 H (0-5) /hpf Urine WBC Clumps Many H (None) /hpf Ur Squamous Epith Cells 6 H (0-4) /hpf Urine Bacteria Moderate H (None) /hpf Urine Mucus Rare H (None) /hpf Crossmatch Microbiology - Last 24 Hours (Table) 05/21/22 18:40 Blood Culture - Final Blood 05/22/22 11:46 Urine Culture - Preliminary Urine,Voided 05/21/22 18:55 Blood Culture Gram Stain - Preliminary Blood 05/21/22 18:55 Blood Culture - Final Blood Thrombosis Risk Factor Assmnt - Choose All That Apply Each Factor Represents 1 point: Heart failure (<1month), Medical pt on bed rest, Obesity (BMI >25) Each Risk Factor Represents 2 Points: Patient confined to bed Each Risk Factor Represents 5 Points: Multiple trauma (< 1 month) Thrombosis Risk Factor Assessment Total Risk Factor Score: 10 Thrombosis Risk Factor Assessment Level: High Risk
[2022-05-22] MEDS: ACETAMINOPHEN TAB 325 MG TAB PO PRN (21:27)
[2022-05-22] MEDS: LEVOTHYROXINE 25 MCG TAB PO SCH (21:28)
[2022-05-22] MEDS: INSULIN DETEMIR (LEVEMIR) 100 UNIT/ML SYR SQ SCH (21:29)
[2022-05-22] MEDS: ATORVASTATIN 20 MG TAB PO SCH (21:29)
[2022-05-22] MEDS: MELATONIN 5 MG TABLET PO SCH (21:29)
[2022-05-22] MEDS: SENNOSIDES-DOCUSATE SODIUM 1 EACH TAB PO SCH (21:31)
--- NOTE | 2022-05-22 23:46 | P.CONS ---
History of Present Illness - Reason for Consult Consult date: 05/22/22 Right flank mass versus developing abscess Requesting physician: Alma Delia Cooney - Chief Complaint Lower back pain X few days - History of Present Illness Patient is a 37-year-old female with a past medical history significant for CVA TIA DVT morbid obesity history of recurrent UTI patient presenting to the ER with concern for right flank pain apparently the patient been concerned possibly have an abscess been complaining of pain to the lower back flank area that has been getting worse for the last few days denies any history of any trauma. Describes the pain to be sharp and near in intensity with associated nausea but no vomiting denies any diarrhea or constipation on presentation to the hospital she did have a fever 100.3 F patient did have white count 16.1 with left shift did have elevated BUN and creatinine patient did have a CT of abdominal pelvis with tissues right kidney appears to have enlarged from the atrophic appearance perinephric stranding is present solitary density subcutaneous and deep tissue of the right flank concerning for possible hematoma or sarcoma patient was admitted to the floor apparently the patient did coded last night requiring resuscitation and subsequently has been admitted to the ICU patient is currently on Zosyn infectious disease was consulted for further management of antibiotic therapy,, The patient did have blood cultures drawn growing gram-positive cocci Review of Systems Positive points has been mentioned in HPI complete review could not be obtained because of his underlying mental status Past Medical History Past Medical History: CVA/TIA, Deep Vein Thrombosis (DVT), Myocardial Infarction (CA) Additional Past Medical History / Comment(s): morbid obesity, pancreatitis, history of coma - 10/24/14 - until end of december after suffering from a stroke. Last Myocardial Infarction Date:: 10/2014 History of Any Multi-Drug Resistant Organisms: ESBL, Other MDRO Year Discovered:: 07/16/20 ESBL E.coli MDRO Source:: Urine-ESBL Past Surgical History: Cholecystectomy Additional Past Surgical History / Comment(s): Cystoscopy with placement of left double-J catheter 02/16/2018, Gastric bypass 2016 Past Anesthesia/Blood Transfusion Reactions: No Reported Reaction Past Psychological History: Anxiety, Depression, Panic Disorder Smoking Status: Never smoker Past Alcohol Use History: None Reported Additional Past Alcohol Use History / Comment(s): patient smoked in high school Past Drug Use History: Marijuana - Past Family History Father History Unknown: Yes Family Medical History: Cancer Additional Family Medical History / Comment(s): lung Medications and Allergies Home Medications Medication Instructions Recorded Confirmed Type FLUoxetine HCL [PROzac] 20 mg PO DAILY 02/15/18 05/21/22 History Levothyroxine Sodium [Synthroid] 25 mcg PO HS@199902/15/18 05/21/22 History Multivitamins, Thera [Multivitamin 1 tab PO DAILY 02/15/18 05/21/22 History (formulary)] Acetaminophen Tab [Tylenol] 650 mg PO Q6H PRN 09/03/18 05/21/22 History Baclofen 10 mg PO HS@199907/25/20 05/21/22 History Sennosides/Docusate Sodium [Senna 2 cap PO HS@199907/25/20 05/21/22 History Plus 8.6-50 mg Softgel] Atorvastatin [Lipitor] 20 mg PO HS@199909/29/20 05/21/22 History Darbepoetin Kurtis [Aranesp] 25 [place]@[address]001/26/21 05/21/22 History Norethindrone [Chani] 0.35 mg PO DAILY 01/26/21 05/21/22 History Sodium Bicarbonate 650 mg PO BID@0800,199902/06/22 05/21/22 History polyethylene glycoL 3350 [Miralax] 17 gm PO DAILY 02/06/22 05/21/22 History Furosemide [Lasix] 80 mg PO DAILY tab 02/19/22 05/21/22 Rx Metoprolol Succinate (ER) [Toprol 50 mg PO DAILY tab 02/19/22 05/21/22 Rx XL] Apixaban [Eliquis] 2.5 mg PO BID@0800,199905/21/22 05/21/22 History Cholecalciferol [Vitamin D3 (25 75 mcg PO DAILY 05/21/22 05/21/22 History Mcg = 1000 Iu)] Ferrous Sulfate [Feosol] 325 mg PO BID@0800,199905/21/22 05/21/22 History Chlorhexidine Gluconate [Peridex] 15 ml MUCOUS MEM BID ml 06/01/22 Rx Famotidine [Pepcid] 20 mg PO DAILY tab 06/01/22 Rx HYDROcodone/APAP 7.5-325MG [Suffern 1 tab PO Q8H PRN #9 tab 06/01/22 Rx 7.5-325] INSULIN ASPART (NovoLOG) [NovoLOG 0 unit SQ Q6HR each 06/01/22 Rx (formulary)] Insulin Detemir (Levemir) [Levemir] 20 unit SQ HS each 06/01/22 Rx Meropenem [Merrem] 1 gm IVPB Q12H #28 each 06/01/22 Rx Midodrine [ProAmatine] 10 mg PO AC-TID tab 06/01/22 Rx QUEtiapine [SEROquel] 25 mg PO BID PRN tab 06/01/22 Rx QUEtiapine [SEROquel] 50 mg PO HS tab 06/01/22 Rx clonazePAM [KlonoPIN] 0.25 mg PO HS #3 tab 06/01/22 Rx Allergies Allergy/AdvReac Type Severity Reaction Status Date / Time aspirin Allergy Rash/Hives Verified 05/21/22 16:14 sertraline HCl [From Zoloft] Allergy Unknown Verified 05/21/22 16:14 zolpidem tartrate Allergy Unknown Verified 05/21/22 16:14 [From Ambien] gabapentin [From Neurontin] AdvReac Severe SEVERE Verified 05/21/22 16:14 AGITATION ibuprofen [From Motrin] AdvReac AVOIDS D/T Verified 05/21/22 16:14 KIDNEY FUNCTION Physical Exam Vitals: Vital Signs Temp Pulse Resp BP Pulse Ox 05/22/22 09:00 110 H 24 97/72 97 05/22/22 08:30 110 H 10 L 103/64 98 05/22/22 08:03 100 05/22/22 08:00 97.9 F 105 H 14 104/58 100 05/22/22 07:30 105 H 114/68 99 05/22/22 07:00 19 113/70 100 05/22/22 06:30 18 107/65 100 05/22/22 06:00 38 H 114/71 100 05/22/22 05:30 18 118/76 93 L 05/22/22 05:00 15 94/68 100 05/22/22 04:30 14 116/70 100 05/22/22 04:00 97.4 F L 16 129/72 98 05/22/22 03:30 16 120/59 99 05/22/22 03:00 15 105/49 100 05/22/22 02:30 88 14 101/70 100 05/22/22 02:00 85 12 109/69 100 05/22/22 01:55 97.9 F 86 14 111/76 100 05/22/22 01:30 89 12 112/75 100 05/22/22 01:00 87 13 107/70 100 05/22/22 00:30 98.2 F 92 45 H 113/67 99 05/22/22 00:03 103 H 16 111/54 95 05/22/22 00:00 100 33 H 106/68 96 05/21/22 23:43 98.2 F 101 H 17 106/68 98 05/21/22 23:30 105 H 31 H 101/74 96 05/21/22 23:00 103 H 14 110/71 100 05/21/22 22:30 102 H 26 H 120/66 100 05/21/22 22:00 92 49 H 109/70 100 05/21/22 21:30 105 H 21 05/21/22 21:00 99 108/67 100 05/21/22 20:30 100/42 100 05/21/22 20:00 112 H 81/41 100 05/21/22 19:49 117/99 100 05/21/22 19:47 112 H 24 117/99 100 05/21/22 19:44 112 H 28 H 132/114 92 L 05/21/22 19:32 108 H 22 63/40 100 05/21/22 19:29 109 H 28 H 83/49 100 05/21/22 18:00 98.8 F 97 16 110/68 98 05/21/22 15:33 100.3 F H 113 H 20 93/57 97 Intake and Output 05/21/22 05/22/22 05/22/22 22:59 06:59 14:59 Intake Total 21.683 511.362 30 Output Total 0 0 0 Balance 21.683 511.362 30 Intake: IV 10 70 30 0.9 KVO 10 70 30 Intake, IV Titration 11.3 131.362 Amount Norepinephrine 8 mg In 3 131.362 Sodium Chloride 0.9% 250 ml @ 0.03 MCG/KG/MIN 5. 609 mls/hr IV .Q24H [facility] Rx#:[id number] Blood Product 310 Rc As-1 Unit 310 [id number] Output: Urine 0 0 0 Other: Voiding Method Bedpan Weight 96.615 kg 97 kg 97 kg GENERAL DESCRIPTION: Middle-aged female lying in bed in no distress HEENT: Shows Pallor , no scleral icterus. Oral mucous membrane is dry. NECK: Trachea central, no thyromegaly. LUNGS: Unlabored breathing. Decreased intensity of breath sounds HEART: S1, S2, regular rate and rhythm. No loud murmur ABDOMEN: Soft, no tenderness , guarding or rigidity, EXTREMITIES: No edema of feet. SKIN: No rash, no masses palpable. NEUROLOGICAL: The patient is lethargic and not good historian orientation could not be determined Results CBC & Chem 7: 06/01/22 07:26 06/01/22 07:26 Labs: Abnormal Lab Results - Last 24 Hours (Table) 05/21/22 05/21/22 05/21/22 Range/Units 15:55 15:55 19:11 WBC 12.2 H (3.8-10.6) k/uL RBC 2.77 L (3.80-5.40) m/uL Hgb 7.0 L (11.4-16.0) gm/dL Hct 23.1 L (34.0-46.0) % MCHC 30.2 L (31.0-37.0) g/dL RDW 18.1 H (11.5-15.5) % Plt Count (150-450) k/uL Neutrophils # 10.4 H (1.3-7.7) k/uL Lymphocytes # 0.9 L (1.0-4.8) k/uL ESR >140 H (0-20) mm/hr Sodium 131 L (137-145) mmol/L Chloride 97 L (98-107) mmol/L Carbon Dioxide (22-30) mmol/L BUN 62 H (7-17) mg/dL Creatinine 3.86 H (0.52-1.04) mg/dL Glucose 179 H (74-99) mg/dL POC Glucose (mg/dL) 140 H (70-110) mg/dL Plasma Lactic Acid Montrell (0.7-2.0) mmol/L Calcium (8.4-10.2) mg/dL Alkaline Phosphatase 187 H (38-126) U/L C-Reactive Protein 33.0 H (<1.0) mg/dL Total Protein (6.3-8.2) g/dL Albumin 2.6 L (3.5-5.0) g/dL Procalcitonin (0.02-0.09) ng/mL Crossmatch 05/21/22 05/21/22 05/21/22 Range/Units 19:25 19:25 19:25 WBC 16.1 H (3.8-10.6) k/uL RBC 2.63 L (3.80-5.40) m/uL Hgb 6.7 L* (11.4-16.0) gm/dL Hct 22.8 L (34.0-46.0) % MCHC 29.4 L (31.0-37.0) g/dL RDW 18.1 H (11.5-15.5) % Plt Count 577 H (150-450) k/uL Neutrophils # (1.3-7.7) k/uL Lymphocytes # (1.0-4.8) k/uL ESR (0-20) mm/hr Sodium 135 L (137-145) mmol/L Chloride (98-107) mmol/L Carbon Dioxide 19 L (22-30) mmol/L BUN 57 H (7-17) mg/dL Creatinine 3.46 H (0.52-1.04) mg/dL Glucose 137 H (74-99) mg/dL POC Glucose (mg/dL) (70-110) mg/dL Plasma Lactic Acid Montrell 2.9 H* (0.7-2.0) mmol/L Calcium 8.3 L (8.4-10.2) mg/dL Alkaline Phosphatase 156 H (38-126) U/L C-Reactive Protein (<1.0) mg/dL Total Protein 6.2 L (6.3-8.2) g/dL Albumin 2.2 L (3.5-5.0) g/dL Procalcitonin (0.02-0.09) ng/mL Crossmatch 05/21/22 05/21/22 05/22/22 Range/Units 19:27 21:29 05:46 WBC 14.8 H (3.8-10.6) k/uL RBC 3.23 L (3.80-5.40) m/uL Hgb 8.4 L D (11.4-16.0) gm/dL Hct 27.6 L (34.0-46.0) % MCHC 30.4 L (31.0-37.0) g/dL RDW 17.7 H (11.5-15.5) % Plt Count 474 H (150-450) k/uL Neutrophils # 13.0 H (1.3-7.7) k/uL Lymphocytes # 0.9 L (1.0-4.8) k/uL ESR (0-20) mm/hr Sodium (137-145) mmol/L Chloride (98-107) mmol/L Carbon Dioxide (22-30) mmol/L BUN (7-17) mg/dL Creatinine (0.52-1.04) mg/dL Glucose (74-99) mg/dL POC Glucose (mg/dL) 146 H (70-110) mg/dL Plasma Lactic Acid Montrell (0.7-2.0) mmol/L Calcium (8.4-10.2) mg/dL Alkaline Phosphatase (38-126) U/L C-Reactive Protein (<1.0) mg/dL Total Protein (6.3-8.2) g/dL Albumin (3.5-5.0) g/dL Procalcitonin (0.02-0.09) ng/mL Crossmatch See Detail 05/22/22 05/22/22 Range/Units 05:46 05:46 WBC (3.8-10.6) k/uL RBC (3.80-5.40) m/uL Hgb (11.4-16.0) gm/dL Hct (34.0-46.0) % MCHC (31.0-37.0) g/dL RDW (11.5-15.5) % Plt Count (150-450) k/uL Neutrophils # (1.3-7.7) k/uL Lymphocytes # (1.0-4.8) k/uL ESR (0-20) mm/hr Sodium (137-145) mmol/L Chloride (98-107) mmol/L Carbon Dioxide 19 L (22-30) mmol/L BUN 59 H (7-17) mg/dL Creatinine 3.49 H (0.52-1.04) mg/dL Glucose 149 H (74-99) mg/dL POC Glucose (mg/dL) (70-110) mg/dL Plasma Lactic Acid Montrell (0.7-2.0) mmol/L Calcium (8.4-10.2) mg/dL Alkaline Phosphatase 185 H (38-126) U/L C-Reactive Protein (<1.0) mg/dL Total Protein (6.3-8.2) g/dL Albumin 2.5 L (3.5-5.0) g/dL Procalcitonin 4.15 H (0.02-0.09) ng/mL Crossmatch Assessment and Plan (1) Abscess of flank Status: Acute Code(s): L02.211 - CUTANEOUS ABSCESS OF ABDOMINAL WALL SNOMED Code(s): 27410093 Plan: 1patient presented to the hospital with sepsis in this patient who did have a fever elevated white count has been complaining of flank pain with evidence of possible renal abscess/pyelonephritis likely from enteric gram-negative pathogen. 2patient did have a positive blood culture with gram-positive cocci with question of possibly related to her renal abscess/pyelonephritis versus skin contamination if finalized as staph epi. 3patient with renal insufficiency high risk of nephrotoxicity from vancomycin 4-blood cultures will be repeated document clearance of bacteremia 5-patient to continue with the Zosyn we will add daptomycin while waiting for the culture to finalize We will follow on clinical condition and cultures to further adjust medication if needed Thank you for this consultation we will follow the patient along with you Time with Patient: Greater than 30
[2022-05-23] MEDS: HYDROcodone/APAP 7.5-325MG 1 EACH TAB PO PRN ×2 (00:20→09:15)
[2022-05-23 07:03] LABS: Calcium 8.8 mg/dL (8.4-10.2); Potassium 3.5 mmol/L (3.5-5.1)
[2022-05-23 07:04] LABS: Anisocytosis Slight; Basophils % (A) 0 %; Eosinophils # (A) 0.2 k/uL (0-0.7); Eosinophils % (A) 2 %; HCT 28.1 % (34.0-46.0); HGB 8.5 gm/dL (11.4-16.0); Hypochromasia Marked; Lymphocytes # (A) 0.8 k/uL (1.0-4.8); Lymphocytes % (A) 6 %; MCH 25.9 pg (25.0-35.0); MCHC 30.1 g/dL (31.0-37.0); MCV 86.3 fL (80.0-100.0); Mean Platelet Volume 7.3; Monocytes # (A) 0.5 k/uL (0-1.0); Monocytes % (A) 4 %; Neutrophils # (A) 11.6 k/uL (1.3-7.7); Neutrophils % (A) 87 %; Platelet Count 387 k/uL (150-450); Poikilocytosis Moderate; RBC 3.26 m/uL (3.80-5.40); RDW 17.6 % (11.5-15.5); WBC 13.3 k/uL (3.8-10.6)
[2022-05-23] MEDS ORDERED: Potassium Replacement Protocol 1 EACH MISC MISCELLANE PRN (07:48)
[2022-05-23] MEDS: SODIUM BICARBONATE TAB 650 MG TAB PO SCH ×2 (09:01→21:26)
[2022-05-23] MEDS: FLUoxetine HCL 20 MG CAP PO SCH (09:02)
[2022-05-23] MEDS: FAMOTIDINE 20 MG TAB PO SCH (09:02)
[2022-05-23] MEDS: MULTIVITAMINS, THERA 1 EACH TAB PO SCH (09:02)
[2022-05-23] MEDS: FERROUS SULFATE 325 MG TAB PO SCH ×2 (09:02→21:26)
[2022-05-23] MEDS: PIPERACILLIN-TAZOBACTAM 3.375 GM in SODIUM CHLORIDE 0.9% 100 ML IVPB SCH ×2 (09:02→21:26)
[2022-05-23] MEDS: CHOLECALCIFEROL 25 MCG (1000 IU) TABLET PO SCH ×2 (09:03→09:12)
[2022-05-23] MEDS: clonazePAM 0.5 MG TAB PO SCH ×2 (09:06→21:25)
[2022-05-23] MEDS: POTASSIUM CHLORIDE ER 20 MEQ TAB.ER PO SCH ×2 (09:09→10:13)
[2022-05-23] MEDS: polyethylene glycoL 3350 17 GM POWD.PACK PO SCH (10:09)
[2022-05-23] MEDS: NON FORMULARY DRUG (Norethindrone [Camila] 0.35 MG Tablet) PO SCH (10:11)
[2022-05-23] MEDS: METOPROLOL SUCCINATE (ER) 50 MG TAB.ER.24H PO SCH (10:13)
[2022-05-23] MEDS: FUROSEMIDE 80 MG TAB PO SCH (10:13)
--- NOTE | 2022-05-23 10:27 | P.PN ---
Subjective Progress Note Date: 05/23/22 I'm seeing this patient in new consultation today 05/22/2022 in the intensive care unit after suspected cardiac arrest in the emergency room. Patient is a 37-year-old white female with multiple significant comorbidities including myocardial infarction, diabetes mellitus type 2, chronic kidney disease, hy pothyroidism, anemia, frequent urinary tract infections with ESBL producing E. coli, CVA, pancreatitis, cognitive delay, DVT, gastric bypass. Patient does have a public guardian is a poor historian. Patient did have a recent prolonged hospital admission in January, for acute hypoxic respiratory failure related to CHF exacerbation versus pneumonia. Patient was brought in yesterday afternoon for right flank pain. An abdominal and pelvis CT without contrast done yesterday showed an 8.2 cm mass within the region of the right kidney. The previously atrophic kidney was enlarged with perinephric stranding. There was soft tissue density subcutaneous and deep tissues the right flank at the level of enlarged kidney. There was small amount of air present within the region. Ecchymosis extended throughout the right flank to the thigh. Correlation for hematoma was recommended. While in the emergency room, the patient became unresponsive and a CODE BLUE was activated. The presenting rhythm was PEA. Patient was successfully resuscitated after 1 round of CPR and 1 amp of epinephrine with an estimated down time of 3 minutes. She did not require intubation. She was hypotensive and given 1 L normal saline bolus. She did require a norepinephrine infusion, currently running at 0.1 mics per kg per minute, through a right IJ triple-lumen central line catheter. Patient is currently resting comfortably on 4 L nasal cannula, in no acute distress. Patient is oxygenating at near 100%. Post resuscitation chest x-ray showed no acute cardiopulmonary process. The patient's right flank area has extensive soft tissue edema, no obvious bruising or ecchymosis. The area is tender to palpat ion. A follow-up CBC showed a hemoglobin of 6.7, hematocrit 22.8, WBC 16, platelets 577,000. The patient was transfused 1 unit PRBC. Patient's BMP shows sodium 135, potassium 3.6, chloride 104, serum CO2 19, P1 57, creatinine chronically elevated at 3.46, glucose 137. Patient's lactic acid level was elevated at 2.9. Patient did receive a dose of Rocephin. She has been intermittently febrile with a T-max of 100.3F. Troponin was negative 1. NT proBNP was mildly elevated at 1720. Vital signs are stable. Patient is in the intensive care unit for closer monitoring. The patient is seen today 05/23/2022 in follow-up in the intensive care unit. She is currently awake and alert. Resting fairly comfortably in bed. She is maintaining O2 saturations up to 100% on 4 L/m per nasal cannula. No IV fluids currently. She has received 1 unit of packed red blood cells this admission. Current hemoglobin 8.5. Platelets 387. White count 13.3. Sodium 133. Potassium 3.5. Bicarb 19. BUN 60. Creatinine 3.92. Glucose 187. Urine positive for moderate bacteria and many white blood cells. Blood cultures positive for coag-negative staph. Urine culture pending. She is currently on daptomycin and Zosyn. ID service is on the case. She has been seen by urology regarding the right flank mass. Definitive diagnosis would require a CT-guided biopsy/aspiration. They feel they hemoglobin drops in the size of the per P nephrectomy mass increases it would be consistent for enlarging hematoma and may need transfer to a tertiary care center for right renal arterial embolization. Objective - Vital Signs Vital signs: Vital Signs Temp 97.9 F 05/23/22 08:00 Pulse 111 H 05/23/22 09:00 Resp 20 05/23/22 09:00 BP 97/65 05/23/22 09:00 Pulse Ox 98 05/23/22 09:00 FiO2 Intake & Output 05/22/22 05/23/22 05/23/22 18:59 06:59 18:59 Intake Total 240 110 55 Output Total 201 1 1 Balance 39 109 54 Weight 97 kg 102.7 kg Intake: IV 190 110 30 0.9 KVO 90 110 30 Sodium Chloride 0.9% 1, 100 000 ml @ 999 mls/hr IV . Q1H1M [facility] Rx#:[id number] Intake, IV Titration 50 25 Amount DAPTOmycin 450 mg In 50 Sodium Chloride 0.9% 50 ml @ 100 mls/hr IVPB Q48H [facility] Rx#:[id number] Piperacillin-Tazobactam 3 25 .375 gm In Sodium Chloride 0.9% 100 ml @ 25 mls/hr IVPB Q12HR [facility] Rx #:[id number] Output: Urine 200 Stool 1 1 1 Other: Voiding Method External Catheter External Catheter Diaper # Voids 1 1 - Exam GENERAL EXAM: Alert, pale, weak 37-year-old female, comfortable in no apparent distress. HEAD: Normocephalic and atraumatic EYES: Normal reaction of pupils, equal size. NOSE: Clear with pink turbinates. THROAT: No erythema or exudates. NECK: No masses, no JVD. CHEST: No chest wall deformity. LUNGS: Equal air entry with no crackles, wheeze, rhonchi or dullness. On 4 L nasal cannula. No conversational dyspnea or accessory muscle use.. CVS: S1 and S2 normal with no audible murmur, regular rhythm. No extra heart sounds ABDOMEN: No hepatosplenomegaly, active bowel sounds, no guarding or rigidity. SPINE: No scoliosis or deformity SKIN: No rashes. There is extensive soft tissue swelling on the right flank area. No bruising or ecchymosis. CENTRAL NERVOUS SYSTEM: No focal deficits, tone is normal in all 4 extremities. EXTREMITIES: There is mild bilateral nonpitting edema of the lower extremities. No clubbing, or cyanosis. Peripheral pulses are intact. - Labs CBC & Chem 7: 05/23/22 05:57 05/23/22 05:57 Labs: Abnormal Lab Results - Last 24 Hours (Table) 05/22/22 05/23/22 05/23/22 Range/Units 11:46 05:57 05:57 WBC 13.3 H (3.8-10.6) k/uL RBC 3.26 L (3.80-5.40) m/uL Hgb 8.5 L (11.4-16.0) gm/dL Hct 28.1 L (34.0-46.0) % MCHC 30.1 L (31.0-37.0) g/dL RDW 17.6 H (11.5-15.5) % Neutrophils # 11.6 H (1.3-7.7) k/uL Lymphocytes # 0.8 L (1.0-4.8) k/uL Sodium 133 L (137-145) mmol/L Carbon Dioxide 19 L (22-30) mmol/L BUN 60 H (7-17) mg/dL Creatinine 3.92 H (0.52-1.04) mg/dL Glucose 187 H (74-99) mg/dL Urine Appearance Turbid H (Clear) Urine Protein 1+ H (Negative) Urine Blood Moderate H (Negative) Ur Leukocyte Esterase Large H (Negative) Urine RBC 14 H (0-5) /hpf Urine WBC >182 H (0-5) /hpf Urine WBC Clumps Many H (None) /hpf Ur Squamous Epith Cells 6 H (0-4) /hpf Urine Bacteria Moderate H (None) /hpf Urine Mucus Rare H (None) /hpf Microbiology - Last 24 Hours (Table) 05/21/22 18:40 Blood Culture Gram Stain - Preliminary Blood Blood Culture - Preliminary Coagulase Negative Staph 05/21/22 18:55 Blood Culture Gram Stain - Preliminary Blood Blood Culture - Preliminary Coagulase Negative Staph 05/21/22 18:40 Blood Culture - Final Blood 05/22/22 11:46 Urine Culture - Preliminary Urine,Voided 05/21/22 18:55 Blood Culture - Final Blood Assessment and Plan Assessment: PEA cardiac arrest witnessed with an estimated 3 minute downtime. Patient did receive CPR and 1 amp of epinephrine. Hypotension was treated with 1 L normal saline bolus, and started on a norepinephrine infusion. Right flank pain currently under investigation. An abdominal and pelvis CT without contrast showed an 8.2 cm mass within the expected region of the right kidney. There was an enlarged right kidney with perinephric stranding. There was soft tissue density in the subcutaneous and did tissues the right flank at the level of the enlarged kidney. Small amount of air was present within this region. Ecchymosis appeared to extend through the flank to the thigh. Hematoma versus developing abscess are within the differential. Patient's anticoagulants currently on hold. Blood cultures preliminary showing coag-negative staph. Lactic acidosis secondary to above Anemia with a hemoglobin of 6.7 gm/dl status post transfusion of 1 unit PRBC. Current hemoglobin 8.5. Patient does have baseline anemia of chronic disease. Acute on chronic kidney disease creatinine is currently 3.92. Diabetes mellitus type 2 Hypothyroidism History of CVA History of cognitive delay and memory impairment History of gastric bypass Plan: The patient was seen and evaluated Medications and labs reviewed Urology consult appreciated Current hemoglobin stable at 8.2 Currently on Zosyn and daptomycin May be D escalated ID service on the case Titrate the FiO2 as tolerated Could be transferred out of the ICU today We will continue to follow I have personally seen and examined the patient, performed the documentation and the assessment and plan as written. Number of minutes spent on the visit: 10.
[2022-05-23 11:27] LABS: C Reactive Protein 32.5 mg/dL (<1.0)
[2022-05-23 11:52] LABS: Glucose,Whole Blood 159 mg/dL (70-110)
[2022-05-23] MEDS: INSULIN ASPART (NovoLOG) 100 UNIT/ML VIAL SQ SCH ×3 (12:04→21:11)
[2022-05-23] MEDS: ACETAMINOPHEN TAB 325 MG TAB PO PRN ×2 (12:05→21:27)
--- NOTE | 2022-05-23 14:28 | P.PN ---
Subjective Progress Note Date: 05/23/22 Principal diagnosis: Right flank abscess/hematoma and bacteremia Patient is a 37-year-old female with a past medical history significant for CVA TIA DVT morbid obesity history of recurrent UTI patient presenting to the ER with concern for right flank pain, patient did have abnormal CT concerning for increasing mass to the right kidney area and the patient also have a cardiac arrest on the floor requiring transfer to the ICU blood cultures with coagulase negative staph On today's evaluation of that is 05/23/2022, the patient is afebrile patient is hemodynamically stable she is breathing comfortably on the toilet and physical patient has been asking for medication to calm her down so complaining of pain into the lower back and flank area no vomiting or diarrhea has been reported less. Has mentioned in the area of swelling and erythema to the right upper back Objective - Vital Signs Vital signs: Vital Signs Temp 97.9 F 05/23/22 08:00 Pulse 112 H 05/23/22 11:00 Resp 16 05/23/22 11:00 BP 93/54 05/23/22 11:00 Pulse Ox 95 05/23/22 11:00 FiO2 Intake & Output 05/22/22 05/23/22 05/23/22 18:59 06:59 18:59 Intake Total 240 110 90 Output Total 201 1 1 Balance 39 109 89 Weight 97 kg 102.7 kg Intake: IV 190 110 40 0.9 KVO 90 110 40 Sodium Chloride 0.9% 1, 100 000 ml @ 999 mls/hr IV . Q1H1M [facility] Rx#:[id number] Intake, IV Titration 50 50 Amount DAPTOmycin 450 mg In 50 Sodium Chloride 0.9% 50 ml @ 100 mls/hr IVPB Q48H [facility] Rx#:[id number] Piperacillin-Tazobactam 3 50 .375 gm In Sodium Chloride 0.9% 100 ml @ 25 mls/hr IVPB Q12HR [facility] Rx #:[id number] Output: Urine 200 Stool 1 1 1 Other: Voiding Method External Catheter External Catheter Diaper # Voids 1 1 1 # Bowel Movements 1 - Exam GENERAL DESCRIPTION: A middle-aged female lying in bed in no distress RESPIRATORY SYSTEM: Unlabored breathing , decreased breath sounds at bases HEART: S1 S2 regular rate and rhythm , ABDOMEN: Soft , no tenderness - Labs CBC & Chem 7: 05/23/22 05:57 05/23/22 05:57 Labs: Abnormal Lab Results - Last 24 Hours (Table) 05/23/22 05/23/22 05/23/22 Range/Units 05:57 05:57 11:50 WBC 13.3 H (3.8-10.6) k/uL RBC 3.26 L (3.80-5.40) m/uL Hgb 8.5 L (11.4-16.0) gm/dL Hct 28.1 L (34.0-46.0) % MCHC 30.1 L (31.0-37.0) g/dL RDW 17.6 H (11.5-15.5) % Neutrophils # 11.6 H (1.3-7.7) k/uL Lymphocytes # 0.8 L (1.0-4.8) k/uL Sodium 133 L (137-145) mmol/L Carbon Dioxide 19 L (22-30) mmol/L BUN 60 H (7-17) mg/dL Creatinine 3.92 H (0.52-1.04) mg/dL Glucose 187 H (74-99) mg/dL POC Glucose (mg/dL) 159 H (70-110) mg/dL C-Reactive Protein 32.5 H (<1.0) mg/dL Microbiology - Last 24 Hours (Table) 05/22/22 11:46 Urine Culture - Final Urine,Voided 05/21/22 18:40 Blood Culture Gram Stain - Preliminary Blood Blood Culture - Preliminary Coagulase Negative Staph 05/21/22 18:55 Blood Culture Gram Stain - Preliminary Blood Blood Culture - Preliminary Coagulase Negative Staph 05/21/22 18:40 Blood Culture - Final Blood 05/21/22 18:55 Blood Culture - Final Blood Assessment and Plan (1) Positive blood culture Current Visit: Yes Status: Acute Code(s): R78.81 - BACTEREMIA SNOMED Code(s): 296625194 (2) Abscess of flank Current Visit: Yes Status: Acute Code(s): L02.211 - CUTANEOUS ABSCESS OF ABDOMINAL WALL SNOMED Code(s): 74034171 Plan: 1patient presented to the hospital with sepsis in this patient who did have a fever elevated white count has been complaining of flank pain with evidence of possible renal abscess/pyelonephritis likely from enteric gram-negative pathogen. 2patient did have a positive blood culture which has been finalized as coagul ase negative staph with a question of possible skin contamination versus related to the right flank mass 3patient with renal insufficiency high risk of nephrotoxicity from vancomycin 4-blood cultures has been repeated document clearance of bacteremia 5-patient to continue with the Zosyn we will add daptomycin awaiting IR drainage of that area fluid should be sent for the culture Time with Patient: Less than 30
--- NOTE | 2022-05-23 15:34 | P.PN ---
Subjective Progress Note Date: 05/23/22 CHIEF COMPLAINT: Right flank pain HISTORY OF PRESENT ILLNESS: Patient remains in the ICU. She is sleeping comfortably. She has been tachycardic. Blood pressure is on the lower side. Afebrile. WBC is down from 14-13.3 Hgb stable 8.5 plt 387 sodium is 133 creatinine 3.9 to Patient seen and examined with Dr. lo PHYSICAL EXAM: VITAL SIGNS: Reviewed. GENERAL: Well-developed in no acute distress. ABDOMEN: Soft. Nondistended. NEUROLOGIC: Alert and oriented. Cranial nerves II through XII grossly intact. ASSESSMENT: 1. Right flank pain 2. Possible kidney mass, enlarging right kidney noted on computed tomography scan 3. Soft tissue density in the right flank at the level of kidney, possible hematoma vs abscess 4. sepsis PLAN: -No surgical intervention planned -Patient followed by urology and infectious disease. Appreciate recommendations -Continue supportive care Physician Tobacco Drying Machine Operator note has been reviewed by physician. Signing provider agrees with the documented findings, assessment, and plan of care. Objective - Vital Signs Vital signs: Vital Signs Temp 98.3 F 05/23/22 14:00 Pulse 134 H 05/23/22 14:00 Resp 24 05/23/22 14:00 BP 92/29 05/23/22 14:00 Pulse Ox 96 05/23/22 14:00 FiO2 Intake & Output 05/22/22 05/23/22 05/23/22 18:59 06:59 18:59 Intake Total 240 110 90 Output Total 201 1 1 Balance 39 109 89 Weight 97 kg 102.7 kg Intake: IV 190 110 40 0.9 KVO 90 110 40 Sodium Chloride 0.9% 1, 100 000 ml @ 999 mls/hr IV . Q1H1M [facility] Rx#:[id number] Intake, IV Titration 50 50 Amount DAPTOmycin 450 mg In 50 Sodium Chloride 0.9% 50 ml @ 100 mls/hr IVPB Q48H [facility] Rx#:[id number] Piperacillin-Tazobactam 3 50 .375 gm In Sodium Chloride 0.9% 100 ml @ 25 mls/hr IVPB Q12HR [facility] Rx #:[id number] Output: Urine 200 Stool 1 1 1 Other: Voiding Method External Catheter External Catheter Diaper # Voids 1 1 1 # Bowel Movements 1 - Labs CBC & Chem 7: 05/23/22 05:57 05/23/22 05:57 Labs: Abnormal Lab Results - Last 24 Hours (Table) 05/23/22 05/23/22 05/23/22 Range/Units 05:57 05:57 11:50 WBC 13.3 H (3.8-10.6) k/uL RBC 3.26 L (3.80-5.40) m/uL Hgb 8.5 L (11.4-16.0) gm/dL Hct 28.1 L (34.0-46.0) % MCHC 30.1 L (31.0-37.0) g/dL RDW 17.6 H (11.5-15.5) % Neutrophils # 11.6 H (1.3-7.7) k/uL Lymphocytes # 0.8 L (1.0-4.8) k/uL Sodium 133 L (137-145) mmol/L Carbon Dioxide 19 L (22-30) mmol/L BUN 60 H (7-17) mg/dL Creatinine 3.92 H (0.52-1.04) mg/dL Glucose 187 H (74-99) mg/dL POC Glucose (mg/dL) 159 H (70-110) mg/dL C-Reactive Protein 32.5 H (<1.0) mg/dL Microbiology - Last 24 Hours (Table) 05/22/22 11:46 Urine Culture - Final Urine,Voided 05/21/22 18:40 Blood Culture Gram Stain - Preliminary Blood Blood Culture - Preliminary Coagulase Negative Staph 05/21/22 18:55 Blood Culture Gram Stain - Preliminary Blood Blood Culture - Preliminary Coagulase Negative Staph 05/21/22 18:40 Blood Culture - Final Blood 05/21/22 18:55 Blood Culture - Final Blood
[2022-05-23 16:49] LABS: Glucose,Whole Blood 156 mg/dL (70-110)
--- NOTE | 2022-05-23 17:54 | P.PN ---
Subjective Progress Note Date: 05/23/22 Principal diagnosis: Right renal mass, probable perinephric hematoma. The patient was resting comfortably when seen this morning. She had no specific complaints. Objective - Vital Signs Vital signs: Vital Signs Temp 98.3 F 05/23/22 14:00 Pulse 134 H 05/23/22 14:00 Resp 24 05/23/22 14:00 BP 92/29 05/23/22 14:00 Pulse Ox 96 05/23/22 14:00 FiO2 Intake & Output 05/22/22 05/23/22 05/23/22 18:59 06:59 18:59 Intake Total 240 110 90 Output Total 201 1 1 Balance 39 109 89 Weight 97 kg 102.7 kg Intake: IV 190 110 40 0.9 KVO 90 110 40 Sodium Chloride 0.9% 1, 100 000 ml @ 999 mls/hr IV . Q1H1M [facility] Rx#:[id number] Intake, IV Titration 50 50 Amount DAPTOmycin 450 mg In 50 Sodium Chloride 0.9% 50 ml @ 100 mls/hr IVPB Q48H [facility] Rx#:[id number] Piperacillin-Tazobactam 3 50 .375 gm In Sodium Chloride 0.9% 100 ml @ 25 mls/hr IVPB Q12HR [facility] Rx #:[id number] Output: Urine 200 Stool 1 1 1 Other: Voiding Method External Catheter External Catheter Diaper # Voids 1 1 1 # Bowel Movements 1 - Constitutional General appearance: Present: cooperative, no acute distress - Gastrointestinal General gastrointestinal: Present: soft. Absent: distended - Labs CBC & Chem 7: 05/23/22 05:57 05/23/22 05:57 Labs: Abnormal Lab Results - Last 24 Hours (Table) 05/23/22 05/23/22 05/23/22 Range/Units 05:57 05:57 11:50 WBC 13.3 H (3.8-10.6) k/uL RBC 3.26 L (3.80-5.40) m/uL Hgb 8.5 L (11.4-16.0) gm/dL Hct 28.1 L (34.0-46.0) % MCHC 30.1 L (31.0-37.0) g/dL RDW 17.6 H (11.5-15.5) % Neutrophils # 11.6 H (1.3-7.7) k/uL Lymphocytes # 0.8 L (1.0-4.8) k/uL Sodium 133 L (137-145) mmol/L Carbon Dioxide 19 L (22-30) mmol/L BUN 60 H (7-17) mg/dL Creatinine 3.92 H (0.52-1.04) mg/dL Glucose 187 H (74-99) mg/dL POC Glucose (mg/dL) 159 H (70-110) mg/dL C-Reactive Protein 32.5 H (<1.0) mg/dL Microbiology - Last 24 Hours (Table) 05/22/22 11:46 Urine Culture - Final Urine,Voided 05/21/22 18:40 Blood Culture Gram Stain - Preliminary Blood Blood Culture - Preliminary Coagulase Negative Staph 05/21/22 18:55 Blood Culture Gram Stain - Preliminary Blood Blood Culture - Preliminary Coagulase Negative Staph 05/21/22 18:40 Blood Culture - Final Blood 05/21/22 18:55 Blood Culture - Final Blood Assessment and Plan Assessment: The hemoglobin level this morning was 8.5, up from 8.4 yesterday. She remains tachycardic. I suspect that the CT scan findings represent a right perinephric hematoma. Urine culture shows mixed genital kelli. Blood cultures showed coagulase-negative staph, the significance of which is unclear. (1) Right flank mass Current Visit: Yes Status: Acute Code(s): R19.00 - INTRA-ABD AND PELVIC SWELLING, MASS AND LUMP, UNSP SITE SNOMED Code(s): 528939953 Plan: - Continue antibiotics per IDs recommendation - Monitor CBC - Monitor serum creatinine - Definitive diagnosis would require CT-guided biopsy/aspiration. If the hemoglobin level drops and the size of the perinephric mass increases, this would be consistent with an enlarging hematoma in which case I would recommend referral to a tertiary care center for right renal arterial embolization.
[2022-05-23] MEDS ORDERED: INSULIN ASPART (NovoLOG) 100 UNIT/ML VIAL SQ SCH (18:30)
[2022-05-23] MEDS: NOREPINEPHRINE 8 MG in SODIUM CHLORIDE 0.9% 250 ML IV SCH (20:59)
[2022-05-23 21:03] LABS: Glucose,Whole Blood 146 mg/dL (70-110)
[2022-05-23] MEDS: BACLOFEN 10 MG TAB PO SCH (21:25)
[2022-05-23] MEDS: ATORVASTATIN 20 MG TAB PO SCH (21:25)
[2022-05-23] MEDS: MELATONIN 5 MG TABLET PO SCH (21:26)
[2022-05-23] MEDS: SENNOSIDES-DOCUSATE SODIUM 1 EACH TAB PO SCH (21:26)
[2022-05-23] MEDS: LEVOTHYROXINE 25 MCG TAB PO SCH (21:26)
[2022-05-23] MEDS: INSULIN DETEMIR (LEVEMIR) 100 UNIT/ML SYR SQ SCH (21:26)
--- NOTE | 2022-05-23 22:58 | P.PN ---
Progress Note - Text Progress Note Date: 05/23/22 Chief Complaint: Right flank pain 37-year-old female with a known history of CVA with right-sided weakness, cognitive impairment, history of gastric bypass surgery, history of DVT on eliquis. oxygen at 2 L via nasal cannula since her COVID infection. CKD with baseline creatinine level around 3.0. resident [facility] - long-term resident. known history of irregular vaginal bleeding - polycystic ovarian syndrome.. multiple DVTs in the past. Following gastric bypass surgery patient had a stroke and myocardial infarction. - resulted in cognitive impairment. poor short-term memory. - bedbound. contracture of the left hand and foot drop on the right leg. history of hyperlipidemia anxiety hypertension hypothyroid diabetes. Patient has a legal guardian Chandrika Special note: Patient always request more pain medications. But if explained she that this leads to her mental status changing and she is finding the same. This should be kept in mind when she asked for pain medications repeatedly. Will need to be given when she is uncomfortable. Once explained she becomes rather comfortable. Presented to the ER right flank pain and fever. For 2 days. Did have ecchymosis along the right flank. Hemoglobin was noted to be 6.7 did receive 1 unit of blood. In the ER patient had a cardiac arrest felt to be PEA as he suddenly became unresponsive. He received chest compression and spontaneous r eturn of circulation. And moved to the ICU. Has baseline memory impairment. Patient is started on ceftriaxone in the ER. Patient was then put on levo fed drip. Patient overnight was on BiPAP. This morning down to 2 L. 05/23/2022: Patient was seen this morning the ICU. Decreased in ecchymosis on the right flank. Indurated area. Tender. For pain to use K pad. Discussed with the nurse. Explained to the patient about pain. IV daptomycin. Per urology if further decrease in hemoglobin and enlarging right renal fossa that would require renal artery embolization at a tertiary center. Positive blood culture likely contaminant. Had some lunch Past medical history to include: Stroke resulting in decreased memory (contracture, following, in 2014 following surgery, DVT, [place], gastric bypass in 2016, anxiety depression, muscle spasms, irregular menstrual bleeding, hypertension, hypothyroid chronic pain in the hands / back. Irregular vaginal bleeding-polycystic ovary syndrome. Multiple DVTs in the past. Following gastric bypass surgery patient had a stroke and myocardial infarction. Resulting in cognitive impairment. Hyperlipidemia, anxiety, hypertension, hypothyroid Social history: long-term resident of [facility] on, no smoking. Did smoke marijuana in high school. Pretty much bedbound. Has a legal guardian Chandrika Physical examination: VITAL SIGNS: 97.9, 111, 20, 97 x 65, 98% GENERAL: Reclining in bed,, but in distress EYES: Pupils equal. Conjunctiva pale. HEENT: External appearance of nose and ears normal, oral cavity grossly normal. NECK: JVD unable to assess masses not palpable. HEART: Heart sounds are muffled; no edema. LUNGS: Respiratory rate normal; distant breath sounds. ABDOMEN: Soft, Right flank Tenderness of the intubation, liver spleen not palpable, no masses palpable. PSYCH: Answering simple. Mood and affect normal. Forgetful NEUROLOGICAL: [Cranial nerves grossly intact; no facial asymmetry, contracture of the left hand. Right Foot drop INVESTIGATIONS, reviewed in the clinical context: Blood cultures [May 21]. Coagulase-negative Staphylococcus May 23: White count 13.3 hemoglobin 8.5 platelets 327 potassium 3.5. An 60 creatinine 3.9 to 05/22/2022: White count 14.8 hemoglobin 8.4 platelets 474, sodium 137 creatinine 3.49 UA: Leukoesterase large. WBC 182 nitrate negative Admission labs: White count 16.1 hemoglobin 6.7 platelets 577 sodium 135 potassium 3.6 BUN 57 creatinine 3.46 lactic acid 2.[address] abdomen pelvis without contrast: Right adrenal gland not identified. Gallbladder surgically absent. 8.2 cm mass within the expected region of the right kidney. This was previously an atrophic kidney. That was enlarged. Perinephric stranding. Soft tissue density in the posterior right flank is a level of this right kidney. Small amount of air is present in the region of the right kidney. Ecchymosis appears to extend to the flank to the thigh. Chest x-ray film personally reviewed by me-infiltrate versus edema possible. EKG tracing personally reviewed by me-heart rate 108. Sinus tachycardia Renal ultrasound: Masslike area within the lower pole of the kidney in the right. Circumferentially wall thickening of the sigmoid colon. Assessment plan: -Suspect infected hematoma right renal bed secondary to patient being on eliquis - present atrophic kidney previously. This seems to track down to the thigh. IV Zosyn, IV daptomycin. Blood cultures coagulate-negative staph . Follow with ID -PEA cardiac arrest witnessed lasting about 3 minutes. Patient did receive 1 amp of epinephrine and CPR. Fluid bolus and levo fed. Now discontinued -Combination of septic shock and hypovolemic shock from bleeding./Hematoma. Better Fluid resuscitation, IV levo fed-discontinued. IV antibiotics. -Acute hypoxic respiratory failure from combination of obesity hypoventilation, questionable pneumonia. Initially placed on BiPAP now down to 2 L -Chronic hypoxic respiratory failure On 2 L of nasal cannula at baseline -Chronic medical debility, patient is not ambulatory -Anemia of chronic kidney disease Hemoglobin was 7.3 on February 2022 - obesity BMI 36.7 -Chronic left hand contracture, right foot drop -Chronic multiple DVTs eliquis 2.5 mg held -Hyperlipidemia Lipitor 20 mg daily at bedtime -Muscle spasm Baclofen 10 mg daily at bedtime -Essential hypertension Toprol-XL currently held because of low blood pressure -Hypothyroid Synthroid 25 g at bedtime -Diabetes mellitus type 2, chronic on insulin Levemir 20 mg daily at bedtime. Follow Accu-Cheks -Chronic pain in the left hand and lower back. Martinez 7.5 every 12 when necessary -Anxiety depression Patient on Klonopin 0.5 mg daily at bedtime Prozac 20 mg daily-outpatient -Bilateral nonobstructing renal calculi,-asymptomatic -Chronic kidney disease stage 4 from obstructive uropathy with a history of left ureteral stent. Creatinine 3.26 on 02/19/2022 -Chronic Right renal atrophy -Full code Patient ICU. On IV Zosyn , IV daptomycin. Consultants include Gen. surgery, urology, criminal investigative agent, ID. K pad for pain control follow H&H
[2022-05-23 23:25] LABS: Glucose,Whole Blood 143 mg/dL (70-110)
[2022-05-24] MEDS ORDERED: SODIUM CHLORIDE 0.9% 500 ML 500 ML IV ONE (01:57)
[2022-05-24 02:28] LABS: Glucose,Whole Blood 108 mg/dL (70-110)
[2022-05-24 03:12] LABS: Anisocytosis Slight; Basophils % (A) 0 %; Eosinophils # (A) 0.2 k/uL (0-0.7); Eosinophils % (A) 1 %; HCT 25.6 % (34.0-46.0); HGB 7.8 gm/dL (11.4-16.0); Hypochromasia Marked; Lymphocytes # (A) 1.2 k/uL (1.0-4.8); Lymphocytes % (A) 8 %; MCH 26.2 pg (25.0-35.0); MCHC 30.3 g/dL (31.0-37.0); MCV 86.6 fL (80.0-100.0); Mean Platelet Volume 7.7; Monocytes # (A) 0.5 k/uL (0-1.0); Monocytes % (A) 3 %; Neutrophils # (A) 13.1 k/uL (1.3-7.7); Neutrophils % (A) 85 %; Platelet Count 401 k/uL (150-450); Poikilocytosis Moderate; RBC 2.96 m/uL (3.80-5.40); RDW 18.2 % (11.5-15.5); WBC 15.3 k/uL (3.8-10.6)
[2022-05-24 03:54] LABS: Calcium 8.8 mg/dL (8.4-10.2); Potassium 3.9 mmol/L (3.5-5.1)
[2022-05-24] MEDS ORDERED: SODIUM CHLORIDE 0.9% 1,000 ML IV ONE (04:24)
[2022-05-24 06:37] LABS: Anisocytosis Slight; Basophils % (A) 0 %; Eosinophils # (A) 0.1 k/uL (0-0.7); Eosinophils % (A) 1 %; Hypochromasia Marked; Lymphocytes % (A) 7 %; MCH 25.7 pg (25.0-35.0); MCHC 29.7 g/dL (31.0-37.0); MCV 86.7 fL (80.0-100.0); Mean Platelet Volume 7.8; Monocytes # (A) 0.4 k/uL (0-1.0); Monocytes % (A) 2 %; Neutrophils # (A) 13.4 k/uL (1.3-7.7); Neutrophils % (A) 89 %; Platelet Count 386 k/uL (150-450); Poikilocytosis Moderate; RBC 3.11 m/uL (3.80-5.40); RDW 18.2 % (11.5-15.5); WBC 15.1 k/uL (3.8-10.6)
[2022-05-24] MEDS: INSULIN ASPART (NovoLOG) 100 UNIT/ML VIAL SQ SCH ×4 (07:09→20:27)
[2022-05-24 07:10] LABS: Glucose,Whole Blood 66 mg/dL (70-110)
[2022-05-24 08:47] LABS: Glucose,Whole Blood 84 mg/dL (70-110)
[2022-05-24] MEDS: FAMOTIDINE 20 MG TAB PO SCH (08:54)
[2022-05-24] MEDS: SODIUM BICARBONATE TAB 650 MG TAB PO SCH ×2 (08:54→20:10)
[2022-05-24] MEDS: FLUoxetine HCL 20 MG CAP PO SCH (08:54)
[2022-05-24] MEDS: FERROUS SULFATE 325 MG TAB PO SCH ×2 (08:54→20:10)
[2022-05-24] MEDS: MULTIVITAMINS, THERA 1 EACH TAB PO SCH (08:54)
[2022-05-24] MEDS: PIPERACILLIN-TAZOBACTAM 3.375 GM in SODIUM CHLORIDE 0.9% 100 ML IVPB SCH ×2 (08:54→20:26)
[2022-05-24] MEDS: MIDODRINE 5 MG TAB PO SCH ×3 (09:00→17:34)
--- NOTE | 2022-05-24 09:44 | P.PN ---
Subjective Progress Note Date: 05/24/22 I'm seeing this patient in new consultation today 05/22/2022 in the intensive care unit after suspected cardiac arrest in the emergency room. Patient is a 37-year-old white female with multiple significant comorbidities including myocardial infarction, diabetes mellitus type 2, chronic kidney disease, hy pothyroidism, anemia, frequent urinary tract infections with ESBL producing E. coli, CVA, pancreatitis, cognitive delay, DVT, gastric bypass. Patient does have a public guardian is a poor historian. Patient did have a recent prolonged hospital admission in January, for acute hypoxic respiratory failure related to CHF exacerbation versus pneumonia. Patient was brought in yesterday afternoon for right flank pain. An abdominal and pelvis CT without contrast done yesterday showed an 8.2 cm mass within the region of the right kidney. The previously atrophic kidney was enlarged with perinephric stranding. There was soft tissue density subcutaneous and deep tissues the right flank at the level of enlarged kidney. There was small amount of air present within the region. Ecchymosis extended throughout the right flank to the thigh. Correlation for hematoma was recommended. While in the emergency room, the patient became unresponsive and a CODE BLUE was activated. The presenting rhythm was PEA. Patient was successfully resuscitated after 1 round of CPR and 1 amp of epinephrine with an estimated down time of 3 minutes. She did not require intubation. She was hypotensive and given 1 L normal saline bolus. She did require a norepinephrine infusion, currently running at 0.1 mics per kg per minute, through a right IJ triple-lumen central line catheter. Patient is currently resting comfortably on 4 L nasal cannula, in no acute distress. Patient is oxygenating at near 100%. Post resuscitation chest x-ray showed no acute cardiopulmonary process. The patient's right flank area has extensive soft tissue edema, no obvious bruising or ecchymosis. The area is tender to palpat ion. A follow-up CBC showed a hemoglobin of 6.7, hematocrit 22.8, WBC 16, platelets 577,000. The patient was transfused 1 unit PRBC. Patient's BMP shows sodium 135, potassium 3.6, chloride 104, serum CO2 19, P1 57, creatinine chronically elevated at 3.46, glucose 137. Patient's lactic acid level was elevated at 2.9. Patient did receive a dose of Rocephin. She has been intermittently febrile with a T-max of 100.3F. Troponin was negative 1. NT proBNP was mildly elevated at 1720. Vital signs are stable. Patient is in the intensive care unit for closer monitoring. The patient is seen today 05/23/2022 in follow-up in the intensive care unit. She is currently awake and alert. Resting fairly comfortably in bed. She is maintaining O2 saturations up to 100% on 4 L/m per nasal cannula. No IV fluids currently. She has received 1 unit of packed red blood cells this admission. Current hemoglobin 8.5. Platelets 387. White count 13.3. Sodium 133. Potassium 3.5. Bicarb 19. BUN 60. Creatinine 3.92. Glucose 187. Urine positive for moderate bacteria and many white blood cells. Blood cultures positive for coag-negative staph. Urine culture pending. She is currently on daptomycin and Zosyn. ID service is on the case. She has been seen by urology regarding the right flank mass. Definitive diagnosis would require a CT-guided biopsy/aspiration. They feel they hemoglobin drops in the size of the per P nephrectomy mass increases it would be consistent for enlarging hematoma and may need transfer to a tertiary care center for right renal arterial embolization. The patient is seen today 05/24/2022 in follow-up in the intensive care unit. She is currently resting fairly comfortably in bed. Awake and alert. She was transferred out of the ICU yesterday but brought back to the ICU early this morning for hypotension. She is maintaining good O2 saturations in the 90s on 2 L/m per nasal cannula. She has normal saline at KVO. TSH and cortisol levels were within normal limits. Metoprolol is placed on hold. Patient did not require norepinephrine thus far. Initial blood cultures positive for coag- negative staph follow-up blood cultures revealing no growth. Urine culture no growth. White count 15.1. Hemoglobin 8.0. Platelets 386. Sodium 136. Potassium 3.9. Bicarb 18. BUN 62. Creatinine 3.9. TSH 1.68. Cortisol level 30. She remains on Zosyn and daptomycin currently. Objective - Vital Signs Vital signs: Vital Signs Temp 97.5 F L 05/24/22 02:00 Pulse 100 05/24/22 05:07 Resp 20 05/24/22 03:15 BP 82/48 05/24/22 05:43 Pulse Ox 97 04/12/23 20:00 FiO2 Intake & Output 05/23/22 05/24/22 05/24/22 18:59 06:59 18:59 Intake Total 140 420 Output Total 1 200 Balance 139 420 -200 Intake: IV 40 0.9 KVO 40 Intake, IV Titration 100 Amount Piperacillin-Tazobactam 3 100 .375 gm In Sodium Chloride 0.9% 100 ml @ 25 mls/hr IVPB Q12HR [facility] Rx #:[id number] Oral 420 Output: Urine 200 Stool 1 Other: Voiding Method Diaper Diaper # Voids 1 1 # Bowel Movements 1 - Exam GENERAL EXAM: Alert, pale, weak 37-year-old female, on 2 L nasal cannula, comfortable in no apparent distress. HEAD: Normocephalic and atraumatic EYES: Normal reaction of pupils, equal size. NOSE: Clear with pink turbinates. THROAT: No erythema or exudates. NECK: No masses, no JVD. CHEST: No chest wall deformity. LUNGS: Equal air entry with no crackles, wheeze, rhonchi or dullness. No conversational dyspnea or accessory muscle use. CVS: S1 and S2 normal with no audible murmur, regular rhythm. No extra heart sounds ABDOMEN: No hepatosplenomegaly, active bowel sounds, no guarding or rigidity. SPINE: No scoliosis or deformity SKIN: No rashes. There is extensive soft tissue swelling on the right flank area. No bruising or ecchymosis. CENTRAL NERVOUS SYSTEM: No focal deficits, tone is normal in all 4 extremities. EXTREMITIES: There is mild bilateral nonpitting edema of the lower extremities. No clubbing, or cyanosis. Peripheral pulses are intact. - Labs CBC & Chem 7: 05/24/22 05:55 05/24/22 02:26 Labs: Abnormal Lab Results - Last 24 Hours (Table) 05/23/22 05/23/22 05/23/22 Range/Units 05:57 11:50 16:47 WBC (3.8-10.6) k/uL RBC (3.80-5.40) m/uL Hgb (11.4-16.0) gm/dL Hct (34.0-46.0) % MCHC (31.0-37.0) g/dL RDW (11.5-15.5) % Neutrophils # (1.3-7.7) k/uL Sodium (137-145) mmol/L Carbon Dioxide (22-30) mmol/L BUN (7-17) mg/dL Creatinine (0.52-1.04) mg/dL POC Glucose (mg/dL) 159 H 156 H (70-110) mg/dL C-Reactive Protein 32.5 H (<1.0) mg/dL 05/23/22 05/23/22 05/24/22 Range/Units 21:01 23:24 02:26 WBC (3.8-10.6) k/uL RBC (3.80-5.40) m/uL Hgb (11.4-16.0) gm/dL Hct (34.0-46.0) % MCHC (31.0-37.0) g/dL RDW (11.5-15.5) % Neutrophils # (1.3-7.7) k/uL Sodium 136 L (137-145) mmol/L Carbon Dioxide 18 L (22-30) mmol/L BUN 62 H (7-17) mg/dL Creatinine 3.98 H (0.52-1.04) mg/dL POC Glucose (mg/dL) 146 H 143 H (70-110) mg/dL C-Reactive Protein (<1.0) mg/dL 05/24/22 05/24/22 05/24/22 Range/Units 02:26 05:55 07:09 WBC 15.3 H 15.1 H (3.8-10.6) k/uL RBC 2.96 L 3.11 L (3.80-5.40) m/uL Hgb 7.8 L 8.0 L (11.4-16.0) gm/dL Hct 25.6 L 27.0 L (34.0-46.0) % MCHC 30.3 L 29.7 L (31.0-37.0) g/dL RDW 18.2 H 18.2 H (11.5-15.5) % Neutrophils # 13.1 H 13.4 H (1.3-7.7) k/uL Sodium (137-145) mmol/L Carbon Dioxide (22-30) mmol/L BUN (7-17) mg/dL Creatinine (0.52-1.04) mg/dL POC Glucose (mg/dL) 66 L (70-110) mg/dL C-Reactive Protein (<1.0) mg/dL Microbiology - Last 24 Hours (Table) 05/23/22 05:57 Blood Culture - Preliminary Blood No Growth after 24 hours 05/22/22 11:46 Urine Culture - Final Urine,Voided 05/21/22 18:40 Blood Culture Gram Stain - Preliminary Blood Blood Culture - Preliminary Coagulase Negative Staph Assessment and Plan Assessment: PEA cardiac arrest witnessed with an estimated 3 minute downtime. Patient did receive CPR and 1 amp of epinephrine. Hypotension was treated with 1 L normal saline bolus, and started on a norepinephrine infusion. The patient had recovered and was off norepinephrine. Transferred out of the intensive care unit on 05/23/2022. Brought back to the and the intensive care unit activity coordinator 05/24/2022 with hypotension. Did not require any norepinephrine at this point. Add midodrine 10 mg 3 times a day. Hold metoprolol. Cortisol level 30. TSH normal. Right flank pain currently under investigation. An abdominal and pelvis CT without contrast showed an 8.2 cm mass within the expected region of the right k idney. There was an enlarged right kidney with perinephric stranding. There was soft tissue density in the subcutaneous and did tissues the right flank at the level of the enlarged kidney. Small amount of air was present within this region. Ecchymosis appeared to extend through the flank to the thigh. Hematoma versus developing abscess are within the differential. Patient's anticoagulants currently on hold. Blood cultures preliminary showing coag-negative staph. Lactic acidosis secondary to above Anemia with a hemoglobin of 6.7 gm/dl status post transfusion of 1 unit PRBC. Current hemoglobin 8.0. Patient does have baseline anemia of chronic disease. Acute on chronic kidney disease creatinine is currently 3.98. Diabetes mellitus type 2 Hypothyroidism History of CVA History of cognitive delay and memory impairment History of gastric bypass Plan: The patient was seen and evaluated Medications and labs reviewed Continues with hypotensive issues Add midodrine 10 mg 3 times a day Current hemoglobin stable at 8.0 Continue to monitor her here in the ICU We will continue to follow I have personally seen and examined the patient, performed the documentation and the assessment and plan as written. Number of minutes spent on the visit: 10.
[2022-05-24] MEDS: clonazePAM 0.5 MG TAB PO SCH ×2 (10:49→20:10)
[2022-05-24] MEDS: NON FORMULARY DRUG (Norethindrone [Camila] 0.35 MG Tablet) PO SCH (10:50)
[2022-05-24] MEDS: METOPROLOL SUCCINATE (ER) 50 MG TAB.ER.24H PO SCH (10:59)
[2022-05-24] MEDS: FUROSEMIDE 80 MG TAB PO SCH (11:00)
[2022-05-24] MEDS: polyethylene glycoL 3350 17 GM POWD.PACK PO SCH (11:30)
[2022-05-24] MEDS: ACETAMINOPHEN TAB 325 MG TAB PO PRN ×2 (13:37→20:12)
--- NOTE | 2022-05-24 13:46 | P.PN ---
Subjective Progress Note Date: 05/24/22 Principal diagnosis: Right renal mass, probable perinephric hematoma. The patient is somnolent but comfortable. She has no complaints. Objective - Vital Signs Vital signs: Vital Signs Temp 98.5 F 05/24/22 12:30 Pulse 112 H 05/24/22 13:00 Resp 22 05/24/22 13:00 BP 104/58 05/24/22 13:00 Pulse Ox 98 05/24/22 13:00 FiO2 Intake & Output 05/23/22 05/24/22 05/24/22 18:59 06:59 18:59 Intake Total 140 420 110 Output Total 1 450 Balance 139 420 -340 Intake: IV 40 110 0.9 KVO 40 10 Piperacillin-Tazobactam 3 100 .375 gm In Sodium Chloride 0.9% 100 ml @ 25 mls/hr IVPB Q12HR [facility] Rx #:[id number] Intake, IV Titration 100 Amount Piperacillin-Tazobactam 3 100 .375 gm In Sodium Chloride 0.9% 100 ml @ 25 mls/hr IVPB Q12HR [facility] Rx #:[id number] Oral 420 Output: Urine 450 Stool 1 Other: Voiding Method Diaper Diaper # Voids 1 1 # Bowel Movements 1 - Constitutional General appearance: Present: cooperative, no acute distress - Gastrointestinal Gastrointestinal Comment(s): Soft, non-distended, nontender. No visible ecchymosis. - Labs CBC & Chem 7: 05/24/22 05:55 05/24/22 02:26 Labs: Abnormal Lab Results - Last 24 Hours (Table) 05/23/22 05/23/22 05/23/22 Range/Units 16:47 21:01 23:24 WBC (3.8-10.6) k/uL RBC (3.80-5.40) m/uL Hgb (11.4-16.0) gm/dL Hct (34.0-46.0) % MCHC (31.0-37.0) g/dL RDW (11.5-15.5) % Neutrophils # (1.3-7.7) k/uL Sodium (137-145) mmol/L Carbon Dioxide (22-30) mmol/L BUN (7-17) mg/dL Creatinine (0.52-1.04) mg/dL POC Glucose (mg/dL) 156 H 146 H 143 H (70-110) mg/dL 05/24/22 05/24/22 05/24/22 Range/Units 02:26 02:26 05:55 WBC 15.3 H 15.1 H (3.8-10.6) k/uL RBC 2.96 L 3.11 L (3.80-5.40) m/uL Hgb 7.8 L 8.0 L (11.4-16.0) gm/dL Hct 25.6 L 27.0 L (34.0-46.0) % MCHC 30.3 L 29.7 L (31.0-37.0) g/dL RDW 18.2 H 18.2 H (11.5-15.5) % Neutrophils # 13.1 H 13.4 H (1.3-7.7) k/uL Sodium 136 L (137-145) mmol/L Carbon Dioxide 18 L (22-30) mmol/L BUN 62 H (7-17) mg/dL Creatinine 3.98 H (0.52-1.04) mg/dL POC Glucose (mg/dL) (70-110) mg/dL 05/24/22 Range/Units 07:09 WBC (3.8-10.6) k/uL RBC (3.80-5.40) m/uL Hgb (11.4-16.0) gm/dL Hct (34.0-46.0) % MCHC (31.0-37.0) g/dL RDW (11.5-15.5) % Neutrophils # (1.3-7.7) k/uL Sodium (137-145) mmol/L Carbon Dioxide (22-30) mmol/L BUN (7-17) mg/dL Creatinine (0.52-1.04) mg/dL POC Glucose (mg/dL) 66 L (70-110) mg/dL Microbiology - Last 24 Hours (Table) 05/23/22 05:57 Blood Culture - Preliminary Blood No Growth after 24 hours 05/22/22 11:46 Urine Culture - Final Urine,Voided 05/21/22 18:40 Blood Culture Gram Stain - Preliminary Blood Blood Culture - Preliminary Coagulase Negative Staph Assessment and Plan Assessment: The hemoglobin level this morning was 8.0, down from 8.5 yesterday. She remains tachycardic. I suspect that the CT scan findings represent a right perinephric hematoma. (1) Right flank mass Current Visit: Yes Status: Acute Code(s): R19.00 - INTRA-ABD AND PELVIC SWELLING, MASS AND LUMP, UNSP SITE SNOMED Code(s): 667073128 Plan: - Continue antibiotics per IDs recommendation - Monitor CBC - Monitor serum creatinine - Will review repeat CT scan when completed - Definitive diagnosis would require CT-guided biopsy/aspiration. If the hemoglobin level drops and the size of the perinephric mass increases, this would be consistent with an enlarging hematoma in which case I would recommend referral to a tertiary care center for right renal arterial embolization.
--- NOTE | 2022-05-24 14:30 | P.PN ---
Subjective Progress Note Date: 05/24/22 Principal diagnosis: Right flank abscess/hematoma and bacteremia Patient is a 37-year-old female with a past medical history significant for CVA TIA DVT morbid obesity history of recurrent UTI patient presenting to the ER with concern for right flank pain, patient did have abnormal CT concerning for increasing mass to the right kidney area and the patient also have a cardiac arrest on the floor requiring transfer to the ICU blood cultures with coagulase negative staph On today's evaluation of that is 05/24/2022, the patient remains to be afebrile patient is hemodynamically stable and not requiring any pressor support, patient is currently breathing comfortably on 2 L nasal cannula oxygen, denies any chest pain shortness of breath or cough some abdominal discomfort and asking for pain medication, confusion reported by the nursing staff Objective - Vital Signs Vital signs: Vital Signs Temp 98.5 F 05/24/22 12:30 Pulse 112 H 05/24/22 13:00 Resp 22 05/24/22 13:00 BP 104/58 05/24/22 13:00 Pulse Ox 98 05/24/22 13:00 FiO2 Intake & Output 05/23/22 05/24/22 05/24/22 18:59 06:59 18:59 Intake Total 140 420 110 Output Total 1 450 Balance 139 420 -340 Intake: IV 40 110 0.9 KVO 40 10 Piperacillin-Tazobactam 3 100 .375 gm In Sodium Chloride 0.9% 100 ml @ 25 mls/hr IVPB Q12HR [facility] Rx #:[id number] Intake, IV Titration 100 Amount Piperacillin-Tazobactam 3 100 .375 gm In Sodium Chloride 0.9% 100 ml @ 25 mls/hr IVPB Q12HR [facility] Rx #:[id number] Oral 420 Output: Urine 450 Stool 1 Other: Voiding Method Diaper Diaper # Voids 1 1 # Bowel Movements 1 - Exam GENERAL DESCRIPTION: A middle-aged female lying in bed in no distress RESPIRATORY SYSTEM: Unlabored breathing , decreased breath sounds at bases HEART: S1 S2 regular rate and rhythm , ABDOMEN: Soft , no tenderness - Labs CBC & Chem 7: 05/24/22 05:55 05/24/22 02:26 Labs: Abnormal Lab Results - Last 24 Hours (Table) 05/23/22 05/23/22 05/23/22 Range/Units 16:47 21:01 23:24 WBC (3.8-10.6) k/uL RBC (3.80-5.40) m/uL Hgb (11.4-16.0) gm/dL Hct (34.0-46.0) % MCHC (31.0-37.0) g/dL RDW (11.5-15.5) % Neutrophils # (1.3-7.7) k/uL Sodium (137-145) mmol/L Carbon Dioxide (22-30) mmol/L BUN (7-17) mg/dL Creatinine (0.52-1.04) mg/dL POC Glucose (mg/dL) 156 H 146 H 143 H (70-110) mg/dL 05/24/22 05/24/22 05/24/22 Range/Units 02:26 02:26 05:55 WBC 15.3 H 15.1 H (3.8-10.6) k/uL RBC 2.96 L 3.11 L (3.80-5.40) m/uL Hgb 7.8 L 8.0 L (11.4-16.0) gm/dL Hct 25.6 L 27.0 L (34.0-46.0) % MCHC 30.3 L 29.7 L (31.0-37.0) g/dL RDW 18.2 H 18.2 H (11.5-15.5) % Neutrophils # 13.1 H 13.4 H (1.3-7.7) k/uL Sodium 136 L (137-145) mmol/L Carbon Dioxide 18 L (22-30) mmol/L BUN 62 H (7-17) mg/dL Creatinine 3.98 H (0.52-1.04) mg/dL POC Glucose (mg/dL) (70-110) mg/dL 05/24/22 Range/Units 07:09 WBC (3.8-10.6) k/uL RBC (3.80-5.40) m/uL Hgb (11.4-16.0) gm/dL Hct (34.0-46.0) % MCHC (31.0-37.0) g/dL RDW (11.5-15.5) % Neutrophils # (1.3-7.7) k/uL Sodium (137-145) mmol/L Carbon Dioxide (22-30) mmol/L BUN (7-17) mg/dL Creatinine (0.52-1.04) mg/dL POC Glucose (mg/dL) 66 L (70-110) mg/dL Microbiology - Last 24 Hours (Table) 05/23/22 05:57 Blood Culture - Preliminary Blood No Growth after 24 hours 05/22/22 11:46 Urine Culture - Final Urine,Voided Assessment and Plan (1) Positive blood culture Current Visit: Yes Status: Acute Code(s): R78.81 - BACTEREMIA SNOMED Code(s): 517695726 (2) Abscess of flank Current Visit: Yes Status: Acute Code(s): L02.211 - CUTANEOUS ABSCESS OF ABDOMINAL WALL SNOMED Code(s): 97500026 Plan: 1patient presented to the hospital with sepsis in this patient who did have a fever elevated white count has been complaining of flank pain with evidence of p ossible renal abscess/pyelonephritis likely from enteric gram-negative pathogen. 2patient did have a positive blood culture which has been finalized as coagulase negative staph with a question of possible skin contamination versus related to the right flank mass 3patient with renal insufficiency high risk of nephrotoxicity from vancomycin 4-blood cultures repeat has been negative so far 5-patient will benefit from repeat CT for follow-up on the right kidney area and also benefit from IR drainage , discussed with the admitting team, patient to continue with the Zosyn and daptomycin and monitor clinical course closely Time with Patient: Less than 30
--- NOTE | 2022-05-24 15:29 | P.PN ---
Subjective Progress Note Date: 05/24/22 CHIEF COMPLAINT: Right flank pain HISTORY OF PRESENT ILLNESS: Patient remains in the ICU. She is awake and lying in bed. She appears comfortable. She is confused. Medicine service has ordered a computed tomography scan abdomen and pelvis for comparison of the right renal mass or possible hematoma. Afebrile. She does remain tachycardic. Patient has been hypotensive. Last BP did show improvement 104/58 WBC is same at 15.1 hgb staying the same at 8.0 platelets 386 PHYSICAL EXAM: VITAL SIGNS: Reviewed. GENERAL: Well-developed in no acute distress. ABDOMEN: Soft. Obese. Nondistended. NEUROLOGIC: Confused ASSESSMENT: 1. Right flank pain 2. Possible kidney mass, enlarging right kidney noted on computed tomography scan 3. Soft tissue density in the right flank at the level of kidney, possible hematoma vs abscess PLAN: -No surgical intervention planned -Continue management and treatment per urology -Antibiotics per ID service -Surgical service will sign off. Please call with any questions or concerns. Physician Head Sugar Reprocess Operator note has been reviewed by physician. Signing provider agrees with the documented findings, assessment, and plan of care. CHIEF COMPLAINT: Right flank swelling HISTORY OF PRESENT ILLNESS: The patient is a 37-year-old female with chronic renal disease and confusion in the intensive care unit. Patient has right flank swelling. Infectious disease following for questionable abscess versus infected hematoma of the right flank. No recent fevers. ROS: No reports of nausea and vomiting. No fevers or chills. No new chest pain. No productive sputum PHYSICAL EXAM: VITAL SIGNS: Reviewed CONSTITUTIONAL: Well developed and in no acute distress. EYES: Conjuctivae without sclera icterus. Extraocular movements grossly intact. HEAD, EARS, NOSE, THROAT: Moist buccal mucosa. Head is atraumatic, normocephalic. Hears conversational speech. No nasal drainage. RESPIRATORY: Non-labored respirations and equal bilateral excursions. CARDIOVASCULAR: Palpable 2+ radial pulses. ABDOMEN: Obese, no peritonitis MUSCULOSKELETAL: No gross deformity of the lower extremities noted. No clubbing. No cyanosis. SKIN: Good skin turgor. Well perfused. NEUROLOGIC: Cranial nerves II through XII grossly intact. No focal or lateralizing signs. PSYCH: Has confusion CLINICAL LABS: Reviewed. WBC elevated at 15,000. Creatinine elevated over 3.5 STUDIES: CT of the abdomen and pelvis reviewed demonstrates questionable abscess versus infected hematoma of the right flank with extension to the right retroperitoneum and kidney. This is my independent interpretation. ASSESSMENT: 1. Right flank mass versus abscess 2. Stage IV renal disease 3. Morbid obesity excess calories 4. Delirium PLAN: 1. Continue IV antibiotics per infectious disease. 2. Patient pending transfer to outside institution due to complex medical care Objective - Vital Signs Vital signs: Vital Signs Temp 98.5 F 05/24/22 12:30 Pulse 112 H 05/24/22 13:00 Resp 22 05/24/22 13:00 BP 104/58 05/24/22 13:00 Pulse Ox 98 05/24/22 13:00 FiO2 Intake & Output 05/23/22 05/24/22 05/24/22 18:59 06:59 18:59 Intake Total 140 420 110 Output Total 1 450 Balance 139 420 -340 Intake: IV 40 110 0.9 KVO 40 10 Piperacillin-Tazobactam 3 100 .375 gm In Sodium Chloride 0.9% 100 ml @ 25 mls/hr IVPB Q12HR [facility] Rx #:[id number] Intake, IV Titration 100 Amount Piperacillin-Tazobactam 3 100 .375 gm In Sodium Chloride 0.9% 100 ml @ 25 mls/hr IVPB Q12HR [facility] Rx #:[id number] Oral 420 Output: Urine 450 Stool 1 Other: Voiding Method Diaper Diaper # Voids 1 1 # Bowel Movements 1 - Labs CBC & Chem 7: 05/24/22 05:55 05/24/22 02:26 Labs: Abnormal Lab Results - Last 24 Hours (Table) 05/23/22 05/23/22 05/23/22 Range/Units 16:47 21:01 23:24 WBC (3.8-10.6) k/uL RBC (3.80-5.40) m/uL Hgb (11.4-16.0) gm/dL Hct (34.0-46.0) % MCHC (31.0-37.0) g/dL RDW (11.5-15.5) % Neutrophils # (1.3-7.7) k/uL Sodium (137-145) mmol/L Carbon Dioxide (22-30) mmol/L BUN (7-17) mg/dL Creatinine (0.52-1.04) mg/dL POC Glucose (mg/dL) 156 H 146 H 143 H (70-110) mg/dL 05/24/22 05/24/22 05/24/22 Range/Units 02:26 02:26 05:55 WBC 15.3 H 15.1 H (3.8-10.6) k/uL RBC 2.96 L 3.11 L (3.80-5.40) m/uL Hgb 7.8 L 8.0 L (11.4-16.0) gm/dL Hct 25.6 L 27.0 L (34.0-46.0) % MCHC 30.3 L 29.7 L (31.0-37.0) g/dL RDW 18.2 H 18.2 H (11.5-15.5) % Neutrophils # 13.1 H 13.4 H (1.3-7.7) k/uL Sodium 136 L (137-145) mmol/L Carbon Dioxide 18 L (22-30) mmol/L BUN 62 H (7-17) mg/dL Creatinine 3.98 H (0.52-1.04) mg/dL POC Glucose (mg/dL) (70-110) mg/dL 05/24/22 Range/Units 07:09 WBC (3.8-10.6) k/uL RBC (3.80-5.40) m/uL Hgb (11.4-16.0) gm/dL Hct (34.0-46.0) % MCHC (31.0-37.0) g/dL RDW (11.5-15.5) % Neutrophils # (1.3-7.7) k/uL Sodium (137-145) mmol/L Carbon Dioxide (22-30) mmol/L BUN (7-17) mg/dL Creatinine (0.52-1.04) mg/dL POC Glucose (mg/dL) 66 L (70-110) mg/dL Microbiology - Last 24 Hours (Table) 05/23/22 05:57 Blood Culture - Preliminary Blood No Growth after 24 hours 05/22/22 11:46 Urine Culture - Final Urine,Voided
--- NOTE | 2022-05-24 15:43 | CT ---
EXAMINATION TYPE: CT abdomen pelvis wo con DATE OF EXAM: 05/24/2022 COMPARISON: 05/21/2022 HISTORY: Right sided flank pain. CT DLP: 1818.8 mGycm Examination of the solid and hollow viscera is limited given the lack of contrast. FINDINGS: LUNG BASES: No evidence for nodule. No evidence for infiltrate. LIVER/GB: The gallbladder is unremarkable. No space-occupying hepatic lesion. PANCREAS: No pancreatic mass identified. No inflammatory process seen. SPLEEN: No evidence for splenomegaly. No intrasplenic lesions seen. ADRENALS: No adrenal nodules identified. No evidence for thickening. KIDNEYS: Again noted is masslike infiltration of the right kidney. There is perinephric increased den sity seen as well as masslike density in the region of the right subcutaneous flank. This could refle ct hematoma however infiltrative neoplasm such as sarcoma cannot be excluded. Renal mass component me asures 9.5 cm with perinephric soft tissue measuring approximately 7.3 x 3.6 cm. Subcutaneous soft ti ssue component measures 15.2 x 5.5 cm. Left kidney appears stable. Several foci of air are noted. BOWEL: Appendix has a normal appearance. No evidence of bowel obstruction. No inflammatory process. Lymph nodes: No evidence for adenopathy greater than 1 cm. Abdominal aorta: Atheromatous changes seen. No evidence for aneurysm. Genital organs: No significant abnormality. Other: No significant abnormality. IMPRESSION: 1. Right renal mass with perinephric soft tissue component as well as soft tissue in the right subcut aneous flank region. The findings could be posttraumatic in the appropriate clinical setting and refl ect renal edema with perinephric and subcutaneous hematoma however infiltrative mass such as sarcoma or renal cell carcinoma is not excluded.
[2022-05-24 17:40] LABS: Glucose,Whole Blood 116 mg/dL (70-110)
[2022-05-24 20:05] LABS: Glucose,Whole Blood 117 mg/dL (70-110)
[2022-05-24] MEDS: MELATONIN 5 MG TABLET PO SCH (20:09)
[2022-05-24] MEDS: BACLOFEN 10 MG TAB PO SCH (20:09)
[2022-05-24] MEDS: ATORVASTATIN 20 MG TAB PO SCH (20:10)
[2022-05-24] MEDS: LEVOTHYROXINE 25 MCG TAB PO SCH (20:10)
[2022-05-24] MEDS: SENNOSIDES-DOCUSATE SODIUM 1 EACH TAB PO SCH (20:10)
[2022-05-24] MEDS: INSULIN DETEMIR (LEVEMIR) 100 UNIT/ML SYR SQ SCH (20:13)
[2022-05-24] MEDS: HYDROcodone/APAP 7.5-325MG 1 EACH TAB PO PRN (22:49)
[2022-05-25] MEDS: ACETAMINOPHEN TAB 325 MG TAB PO PRN ×2 (04:10→09:54)
[2022-05-25 06:54] LABS: Glucose,Whole Blood 96 mg/dL (70-110)
[2022-05-25] MEDS: HYDROcodone/APAP 7.5-325MG 1 EACH TAB PO PRN ×2 (06:56→18:06)
[2022-05-25] MEDS: MIDODRINE 5 MG TAB PO SCH ×3 (06:56→18:04)
[2022-05-25] MEDS: INSULIN ASPART (NovoLOG) 100 UNIT/ML VIAL SQ SCH ×4 (06:56→21:24)
[2022-05-25 07:04] LABS: Anisocytosis Slight; Basophils % (A) 0 %; Eosinophils # (A) 0.2 k/uL (0-0.7); Eosinophils % (A) 1 %; HCT 26.6 % (34.0-46.0); HGB 7.9 gm/dL (11.4-16.0); Hypochromasia Marked; Lymphocytes % (A) 7 %; MCHC 29.7 g/dL (31.0-37.0); MCV 87.5 fL (80.0-100.0); Mean Platelet Volume 7.6; Monocytes # (A) 0.5 k/uL (0-1.0); Monocytes % (A) 3 %; Neutrophils % (A) 87 %; Platelet Count 434 k/uL (150-450); Poikilocytosis Moderate; RBC 3.04 m/uL (3.80-5.40); RDW 18.2 % (11.5-15.5); WBC 13.8 k/uL (3.8-10.6)
[2022-05-25 07:16] LABS: Potassium 3.8 mmol/L (3.5-5.1)
[2022-05-25] MEDS: MULTIVITAMINS, THERA 1 EACH TAB PO SCH (09:25)
[2022-05-25] MEDS: CHOLECALCIFEROL 25 MCG (1000 IU) TABLET PO SCH (09:25)
[2022-05-25] MEDS: FAMOTIDINE 20 MG TAB PO SCH (09:25)
[2022-05-25] MEDS: FLUoxetine HCL 20 MG CAP PO SCH (09:25)
[2022-05-25] MEDS: SODIUM BICARBONATE TAB 650 MG TAB PO SCH ×2 (09:25→21:20)
--- NOTE | 2022-05-25 09:25 | P.PN ---
Subjective Progress Note Date: 05/25/22 Principal diagnosis: Right renal mass, probable hematoma The patient is a 37-year-old female with a history of CVA, DVT, MT, diabetes mellitus, anemia, pancreatitis, atrophic right kidney, recurrent UTIs with ESBL, and kidney stones requiring surgical intervention. The patient also has a history of renal failure due to an obstructed stent. On 05/21/22 she presented to the emergency department for an abscess on her back, that she believes has been present for a couple days. She is bedbound at home and describes the abscess area to be very painful. She denies any fever, chills, chest pain, abdominal pain, nausea, vomiting, headaches. However, the patient is a poor historian and has memory impairment after suffering her stroke and has a public guardian. An abdominal and pelvis CT without contrast done yesterday showed an 8.2 cm mass within the region of the right kidney. The previously atrophic kidney was enlarged with perinephric stranding. There was soft tissue density subcutaneous and deep tissues the right flank at the level of enlarged kidney. There was small amount of air present within the region. Ecchymosis extended throughout the right flank to the thigh. Correlation for hematoma was recommended. While in the emergency room, the patient became unresponsive and a CODE BLUE was activated. The presenting rhythm was PEA. Patient was successfully resuscitated after 1 round of CPR and 1 amp of epinephrine with an estimated down time of 3 minutes. She did not require intubation. CXR showed no acute cardiopulmonary process. A follow-up CBC showed a hemoglobin of 6.7, hematocrit 22.8, WBC 16, platelets 57. The patient was transfused 1 unit PRBC. Serum creatinine 3.86 upon admission. 05/23 The hemoglobin level this morning was 8.5, up from 8.4 yesterday. She remains tachycardic. I suspect that the CT scan findings represent a right perinephric hematoma. Urine culture shows mixed genital kelli. Blood cultures showed coagulase-negative staph, the significance of which is unclear. Definitive diagnosis would require CT-guided biopsy/aspiration. If the hemoglobin level drops and the size of the perinephric mass increases, this would be consistent with an enlarging hematoma in which case I would recommend referral to a tertiary care center for right renal arterial embolization. 05/24 The hemoglobin level this morning was 8.0, down from 8.5 yesterday. She remains tachycardic. I suspect that the CT scan findings represent a right perinephric hematoma. Objective - Vital Signs Vital signs: Vital Signs Temp 98.2 F 05/25/22 07:00 Pulse 120 H 05/25/22 07:00 Resp 19 05/25/22 07:00 BP 88/58 05/25/22 07:00 Pulse Ox 100 05/25/22 07:00 FiO2 Intake & Output 05/24/22 05/25/22 05/25/22 18:59 06:59 18:59 Intake Total 650 130 Output Total 452 400 Balance 198 -270 Intake: IV 210 130 0.9 KVO 60 130 DAPTOmycin 450 mg In 50 Sodium Chloride 0.9% 50 ml @ 100 mls/hr IVPB Q48H [facility]ILDER Rx#:[id number] Piperacillin-Tazobactam 3 100 .375 gm In Sodium Chloride 0.9% 100 ml @ 25 mls/hr IVPB Q12HR [facility]IL[facility] Rx #:[id number] Oral 440 Output: Urine 450 400 Stool 2 Other: Voiding Method Diaper Diaper - Exam General: Well developed, well nourished. No acute distress. HEENT: Head is atraumatic, normocephalic. Lungs: Respirations even and nonlabored. On 3L NC. Abdomen/GI: Soft, obese, non-distended. Skin: Warm and dry Neurologic: Memory impairment, CN II-XII grossly intact. Psychiatric: Normal affect and mood - Labs CBC & Chem 7: 05/25/22 05:45 05/25/22 05:45 Labs: Abnormal Lab Results - Last 24 Hours (Table) 05/24/22 05/24/22 05/25/22 Range/Units 17:39 20:04 05:45 WBC 13.8 H (3.8-10.6) k/uL RBC 3.04 L (3.80-5.40) m/uL Hgb 7.9 L (11.4-16.0) gm/dL Hct 26.6 L (34.0-46.0) % MCHC 29.7 L (31.0-37.0) g/dL RDW 18.2 H (11.5-15.5) % Neutrophils # 12.0 H (1.3-7.7) k/uL Chloride (98-107) mmol/L Carbon Dioxide (22-30) mmol/L BUN (7-17) mg/dL Creatinine (0.52-1.04) mg/dL POC Glucose (mg/dL) 116 H 117 H (70-110) mg/dL 05/25/22 Range/Units 05:45 WBC (3.8-10.6) k/uL RBC (3.80-5.40) m/uL Hgb (11.4-16.0) gm/dL Hct (34.0-46.0) % MCHC (31.0-37.0) g/dL RDW (11.5-15.5) % Neutrophils # (1.3-7.7) k/uL Chloride 108 H (98-107) mmol/L Carbon Dioxide 18 L (22-30) mmol/L BUN 64 H (7-17) mg/dL Creatinine 3.94 H (0.52-1.04) mg/dL POC Glucose (mg/dL) (70-110) mg/dL Microbiology - Last 24 Hours (Table) 05/23/22 05:57 Blood Culture - Preliminary Blood No Growth after 48 hours Assessment and Plan Assessment: Hemoglobin today stable at 7.9, it was 8.0 yesterday. She is hypotensive and tachycardic. CT abdomen and pelvis reviewed by Dr. Charles and is without any significant changes. If the patient's hemoglobin remains stable, recommend repeat CT in 4-6 weeks. If there is a desire to rule out malignancy, then a CT guided biopsy is needed. (1) Right flank mass Current Visit: Yes Status: Acute Code(s): R19.00 - INTRA-ABD AND PELVIC SWELLING, MASS AND LUMP, UNSP SITE SNOMED Code(s): 211399227 Plan: - Continue antibiotics per IDs recommendation - Monitor CBC - Recommend repeat CT in 4-6 wks if Hgb remains stable Thank you for this consultation Impression and plan of care have been directed as dictated by the signing physician. Danna Bernal nurse practitioner acting as scribe for signing physician. Danna Bernal [facility]- Palliative Care/Urology [facility] [id number] Email: [email or web address] I have personally seen and examined the patient, reviewed the documentation and agree with the assessment and plan as written. Number of minutes spent on the visit: 25. Mac Charles MD
[2022-05-25] MEDS: FUROSEMIDE 80 MG TAB PO SCH (09:26)
[2022-05-25] MEDS: FERROUS SULFATE 325 MG TAB PO SCH ×2 (09:26→21:22)
[2022-05-25] MEDS: polyethylene glycoL 3350 17 GM POWD.PACK PO SCH (09:27)
[2022-05-25] MEDS: clonazePAM 0.5 MG TAB PO SCH ×2 (09:27→21:20)
[2022-05-25] MEDS: NON FORMULARY DRUG (Norethindrone [Camila] 0.35 MG Tablet) PO SCH (09:28)
--- NOTE | 2022-05-25 09:35 | P.PN ---
Progress Note - Text Progress Note Date: 05/24/22 Chief Complaint: Right flank pain 37-year-old female with a known history of CVA with right-sided weakness, cognitive impairment, history of gastric bypass surgery, history of DVT on eliquis. oxygen at 2 L via nasal cannula since her COVID infection. CKD with baseline creatinine level around 3.0. resident of [facility], [facility] - long-term resident. known history of irregular vaginal bleeding - polycystic ovarian syndrome.. multiple DVTs in the past. Following gastric bypass surgery patient had a stroke and myocardial infarction. - resulted in cognitive impairment. poor short-term memory. - bedbound. contracture of the left hand and foot drop on the right leg. history of hyperlipidemia anxiety hypertension hypothyroid diabetes. Patient has a legal guardian Chandrika Special note: Patient always request more pain medications. But if explained she that this leads to her mental status changing and she is finding the same. This should be kept in mind when she asked for pain medications repeatedly. Will need to be given when she is uncomfortable. Once explained she becomes rather comfortable. Presented to the ER right flank pain and fever. For 2 days. Did have ecchymosis along the right flank. Hemoglobin was noted to be 6.7 did receive 1 unit of blood. In the ER patient had a cardiac arrest felt to be PEA as he suddenly became unresponsive. He received chest compression and spontaneous r eturn of circulation. And moved to the ICU. Has baseline memory impairment. Patient is started on ceftriaxone in the ER. Patient was then put on levo fed drip. Patient overnight was on BiPAP. This morning down to 2 L. 05/23/2022: Patient was seen this morning the ICU. Decreased in ecchymosis on the right flank. Indurated area. Tender. For pain to use K pad. Discussed with the nurse. Explained to the patient about pain. IV daptomycin. Per urology if further decrease in hemoglobin and enlarging right renal fossa that would require renal artery embolization at a tertiary center. Positive blood culture likely contaminant. Had some lunch 05/24/2022: ICU. Laying in bed. 2 L nasal cannula. Eating fair. Patient wanted stronger pain medications. K pad. She can have a home dose of Boss. Explained. Discussed with ID-the procedures repeat computed tomography scan to look at the size of the hematoma. On IV daptomycin. Zosyn has been discontinued. Patient was transferred to medical floor yesterday. So now after vacation became less responsive became hypotensive. Brought back to the ICU. With fluid bolus the blood pressure came back up. Current medications reviewed Past medical history to include: Stroke resulting in decreased memory (contracture, following, in 2014 following surgery, DVT, CT, gastric bypass in 2016, anxiety depression, muscle spasms, irregular menstrual bleeding, hypertension, hypothyroid chronic pain in the hands / back. Irregular vaginal bleeding-polycystic ovary syndrome. Multiple DVTs in the past. Following gastric bypass surgery patient had a stroke and myocardial infarction. Resulting in cognitive impairment. Hyperlipidemia, anxiety, hypertension, hypothyroid Social history: long-term resident of [facility] on, no smoking. Did smoke marijuana in high school. Pretty much bedbound. Has a legal guardian Chandrika Physical examination: VITAL SIGNS: 98.5, 117, 20, 100% on 2 L GENERAL: Reclining in bed,, awake EYES: Pupils equal. Conjunctiva pale. HEENT: External appearance of nose and ears normal, oral cavity grossly normal. NECK: JVD unable to assess masses not palpable. HEART: Heart sounds are muffled; no edema. LUNGS: Respiratory rate normal; distant breath sounds. ABDOMEN: Soft, Right flank Tenderness / induration, liver spleen not palpable, no masses palpable. PSYCH: Answering simple. Mood and affect normal. Forgetful NEUROLOGICAL: [Cranial nerves grossly intact; no facial asymmetry, contracture of the left hand. Right Foot drop INVESTIGATIONS, reviewed in the clinical context: May 24: White count 15.1 hemoglobin 8 platelets 386 potassium 3.9 BUN 62 creatinine 3.98 troponin I less than 0.012, TSH 1.6 cortisol 30 Blood cultures [May 21]. Coagulase-negative Staphylococcus May 23: White count 13.3 hemoglobin 8.5 platelets 327 potassium 3.5. An 60 creatinine 3.9 to 05/22/2022: White count 14.8 hemoglobin 8.4 platelets 474, sodium 137 creatinine 3.49 UA: Leukoesterase large. WBC 182 nitrate negative Admission labs: White count 16.1 hemoglobin 6.7 platelets 577 sodium 135 potassium 3.6 BUN 57 creatinine 3.46 lactic acid 2.[address] abdomen pelvis without contrast: Right adrenal gland not identified. Gallbladder surgically absent. 8.2 cm mass within the expected region of the right kidney. This was previously an atrophic kidney. That was enlarged. Perinephric stranding. Soft tissue density in the posterior right flank is a level of this right kidney. Small amount of air is present in the region of the right kidney. Ecchymosis appears to extend to the flank to the thigh. Chest x-ray film personally reviewed by me-infiltrate versus edema possible. EKG tracing personally reviewed by me-heart rate 108. Sinus tachycardia Renal ultrasound: Masslike area within the lower pole of the kidney in the right. Circumferentially wall thickening of the sigmoid colon. Assessment plan: -Suspect infected hematoma right renal bed secondary to patient being on eliquis - present atrophic kidney previously. This seems to track down to the thigh. IV Zosyn-discontinued, IV daptomycin. Blood cultures coagulate-negative staph . Follow with ID. Repeat computed tomography scan abdomen order to compare with the previous computed tomography scan. -PEA cardiac arrest witnessed lasting about 3 minutes. Patient did receive 1 amp of epinephrine and CPR. Fluid bolus and levo fed. - discontinued -Combination of septic shock and hypovolemic shock from bleeding./Hematoma. Better Fluid resuscitation, IV levo fed-discontinued. IV daptomycin -Acute hypoxic respiratory failure from combination of obesity hypoventilation, questionable pneumonia. Initially placed on BiPAP now down to 2 L -Chronic hypoxic respiratory failure On 2 L of nasal cannula at baseline -Chronic medical debility, patient is not ambulatory -Anemia of chronic kidney disease Hemoglobin was 7.3 on February 2022 - obesity BMI 36.7 -Chronic left hand contracture, right foot drop -Chronic multiple DVTs eliquis 2.5 mg held -Hyperlipidemia Lipitor 20 mg daily at bedtime -Muscle spasm Baclofen 10 mg daily at bedtime -Essential hypertension Toprol-XL currently held because of low blood pressure -Hypothyroid Synthroid 25 g at bedtime -Diabetes mellitus type 2, chronic on insulin Levemir 20 mg daily at bedtime. Follow Accu-Cheks -Chronic pain in the left hand and lower back. Boss 7.5 every 12 when necessary -Anxiety depression Patient on Klonopin 0.5 mg daily at bedtime Prozac 20 mg daily-outpatient -Bilateral nonobstructing renal calculi,-asymptomatic -Chronic kidney disease stage 4 from obstructive uropathy with a history of left ureteral stent. Creatinine 3.26 on 02/19/2022 -Chronic Right renal atrophy -Full code , IV daptomycin. Discussed with patient. Discussed with ID. Repeat computed tomography scan.
--- NOTE | 2022-05-25 10:56 | P.PN ---
Subjective Progress Note Date: 05/25/22 I'm seeing this patient in new consultation today 05/22/2022 in the intensive care unit after suspected cardiac arrest in the emergency room. Patient is a 37-year-old white female with multiple significant comorbidities including myocardial infarction, diabetes mellitus type 2, chronic kidney disease, hy pothyroidism, anemia, frequent urinary tract infections with ESBL producing E. coli, CVA, pancreatitis, cognitive delay, DVT, gastric bypass. Patient does have a public guardian is a poor historian. Patient did have a recent prolonged hospital admission in January, for acute hypoxic respiratory failure related to CHF exacerbation versus pneumonia. Patient was brought in yesterday afternoon for right flank pain. An abdominal and pelvis CT without contrast done yesterday showed an 8.2 cm mass within the region of the right kidney. The previously atrophic kidney was enlarged with perinephric stranding. There was soft tissue density subcutaneous and deep tissues the right flank at the level of enlarged kidney. There was small amount of air present within the region. Ecchymosis extended throughout the right flank to the thigh. Correlation for hematoma was recommended. While in the emergency room, the patient became unresponsive and a CODE BLUE was activated. The presenting rhythm was PEA. Patient was successfully resuscitated after 1 round of CPR and 1 amp of epinephrine with an estimated down time of 3 minutes. She did not require intubation. She was hypotensive and given 1 L normal saline bolus. She did require a norepinephrine infusion, currently running at 0.1 mics per kg per minute, through a right IJ triple-lumen central line catheter. Patient is currently resting comfortably on 4 L nasal cannula, in no acute distress. Patient is oxygenating at near 100%. Post resuscitation chest x-ray showed no acute cardiopulmonary process. The patient's right flank area has extensive soft tissue edema, no obvious bruising or ecchymosis. The area is tender to palpat ion. A follow-up CBC showed a hemoglobin of 6.7, hematocrit 22.8, WBC 16, platelets 577,000. The patient was transfused 1 unit PRBC. Patient's BMP shows sodium 135, potassium 3.6, chloride 104, serum CO2 19, P1 57, creatinine chronically elevated at 3.46, glucose 137. Patient's lactic acid level was elevated at 2.9. Patient did receive a dose of Rocephin. She has been intermittently febrile with a T-max of 100.3F. Troponin was negative 1. NT proBNP was mildly elevated at 1720. Vital signs are stable. Patient is in the intensive care unit for closer monitoring. The patient is seen today 05/23/2022 in follow-up in the intensive care unit. She is currently awake and alert. Resting fairly comfortably in bed. She is maintaining O2 saturations up to 100% on 4 L/m per nasal cannula. No IV fluids currently. She has received 1 unit of packed red blood cells this admission. Current hemoglobin 8.5. Platelets 387. White count 13.3. Sodium 133. Potassium 3.5. Bicarb 19. BUN 60. Creatinine 3.92. Glucose 187. Urine positive for moderate bacteria and many white blood cells. Blood cultures positive for coag-negative staph. Urine culture pending. She is currently on daptomycin and Zosyn. ID service is on the case. She has been seen by urology regarding the right flank mass. Definitive diagnosis would require a CT-guided biopsy/aspiration. They feel they hemoglobin drops in the size of the per P nephrectomy mass increases it would be consistent for enlarging hematoma and may need transfer to a tertiary care center for right renal arterial embolization. The patient is seen today 05/24/2022 in follow-up in the intensive care unit. She is currently resting fairly comfortably in bed. Awake and alert. She was transferred out of the ICU yesterday but brought back to the ICU early this morning for hypotension. She is maintaining good O2 saturations in the 90s on 2 L/m per nasal cannula. She has normal saline at KVO. TSH and cortisol levels were within normal limits. Metoprolol is placed on hold. Patient did not require norepinephrine thus far. Initial blood cultures positive for coag- negative staph follow-up blood cultures revealing no growth. Urine culture no growth. White count 15.1. Hemoglobin 8.0. Platelets 386. Sodium 136. Potassium 3.9. Bicarb 18. BUN 62. Creatinine 3.9. TSH 1.68. Cortisol level 30. She remains on Zosyn and daptomycin currently. The patient is seen today 05/25/2022 in follow-up in the intensive care unit. She is currently awake and alert in no acute distress. Continue O2 saturations up to 100% on 3 L/m nasal cannula. Currently down to 2 L. She is denying any worsening shortness of breath, cough or congestion. She is asking to go home. Computed tomography scan of the abdomen reveals a right renal mass with perinephric soft tissue component as well as soft tissue in the right subcutaneous flank region. The findings could be posttraumatic in the appropriate clinical setting and reflect renal edema with perinephric and subcutaneous hematoma versus infiltrative mass such as sarcoma renal cell carcinoma is not excluded. She is status post 1 unit of packed red blood cells this admission. Follow-up blood cultures reveal no growth. Urine culture revealed no growth. White count 13.8. He was 7.9. Platelets 434. Sodium 138. Potassium 3.8. Bicarb 18. BUN 64. Creatinine 3.94. Glucose 89. She is continued on daptomycin. Oral diuretics. Sodium bicarb tablets. Objective - Vital Signs Vital signs: Vital Signs Temp 98.6 F 05/25/22 09:00 Pulse 110 H 05/25/22 09:00 Resp 18 05/25/22 09:00 BP 96/62 05/25/22 09:00 Pulse Ox 100 05/25/22 09:00 FiO2 Intake & Output 05/24/22 05/25/22 05/25/22 18:59 06:59 18:59 Intake Total 650 130 230 Output Total 452 400 500 Balance 198 -270 -270 Intake: IV 210 130 30 0.9 KVO 60 130 30 DAPTOmycin 450 mg In 50 Sodium Chloride 0.9% 50 ml @ 100 mls/hr IVPB Q48H [facility] Rx#:[id number] Piperacillin-Tazobactam 3 100 .375 gm In Sodium Chloride 0.9% 100 ml @ 25 mls/hr IVPB Q12HR [facility] Rx #:[id number] Oral 440 200 Output: Urine 450 400 500 Stool 2 Other: Voiding Method Diaper Diaper External Catheter - Exam GENERAL EXAM: Alert, pale, pleasant 37-year-old female, on 2 L nasal cannula, comfortable in no apparent distress. HEAD: Normocephalic and atraumatic EYES: Normal reaction of pupils, equal size. NOSE: Clear with pink turbinates. THROAT: No erythema or exudates. NECK: No masses, no JVD. CHEST: No chest wall deformity. LUNGS: Equal air entry with no crackles, wheeze, rhonchi or dullness. No conversational dyspnea or accessory muscle use. CVS: S1 and S2 normal with no audible murmur, regular rhythm. No extra heart sounds ABDOMEN: No hepatosplenomegaly, active bowel sounds, no guarding or rigidity. SPINE: No scoliosis or deformity SKIN: No rashes. There is extensive soft tissue swelling on the right flank area. No bruising or ecchymosis. CENTRAL NERVOUS SYSTEM: No focal deficits, tone is normal in all 4 extremities. EXTREMITIES: There is mild bilateral nonpitting edema of the lower extremities. No clubbing, or cyanosis. Peripheral pulses are intact. - Labs CBC & Chem 7: 05/25/22 05:45 05/25/22 05:45 Labs: Abnormal Lab Results - Last 24 Hours (Table) 05/24/22 05/24/22 05/25/22 Range/Units 17:39 20:04 05:45 WBC 13.8 H (3.8-10.6) k/uL RBC 3.04 L (3.80-5.40) m/uL Hgb 7.9 L (11.4-16.0) gm/dL Hct 26.6 L (34.0-46.0) % MCHC 29.7 L (31.0-37.0) g/dL RDW 18.2 H (11.5-15.5) % Neutrophils # 12.0 H (1.3-7.7) k/uL Chloride (98-107) mmol/L Carbon Dioxide (22-30) mmol/L BUN (7-17) mg/dL Creatinine (0.52-1.04) mg/dL POC Glucose (mg/dL) 116 H 117 H (70-110) mg/dL 05/25/22 Range/Units 05:45 WBC (3.8-10.6) k/uL RBC (3.80-5.40) m/uL Hgb (11.4-16.0) gm/dL Hct (34.0-46.0) % MCHC (31.0-37.0) g/dL RDW (11.5-15.5) % Neutrophils # (1.3-7.7) k/uL Chloride 108 H (98-107) mmol/L Carbon Dioxide 18 L (22-30) mmol/L BUN 64 H (7-17) mg/dL Creatinine 3.94 H (0.52-1.04) mg/dL POC Glucose (mg/dL) (70-110) mg/dL Microbiology - Last 24 Hours (Table) 05/23/22 05:57 Blood Culture - Preliminary Blood No Growth after 48 hours Assessment and Plan Assessment: PEA cardiac arrest witnessed with an estimated 3 minute downtime. Patient did receive CPR and 1 amp of epinephrine. Hypotension was treated with 1 L normal saline bolus, and started on a norepinephrine infusion. The patient had recovered and was off norepinephrine. Transferred out of the intensive care unit on 05/23/2022. Brought back to the and the intensive care unit information services tech 05/24/2022 with hypotension. Did not require any norepinephrine at this point. Add midodrine 10 mg 3 times a day. Hold metoprolol. Cortisol level 30. TSH normal. Right flank pain currently under investigation. An abdominal and pelvis CT without contrast showed an 8.2 cm mass within the expected region of the right kidney. There was an enlarged right kidney with perinephric stranding. There was soft tissue density in the subcutaneous and did tissues the right flank at the level of the enlarged kidney. Small amount of air was present within this region. Ecchymosis appeared to extend through the flank to the thigh. Hematoma versus developing abscess are within the differential. Patient's anticoagulants currently on hold. Follow-up computed tomography scan from 05/24/2022 revealed a right renal mass with perinephric soft tissue component as well as soft tissue in the right subcutaneous flank region. The findings could be posttraumatic in the appropriate clinical setting and reflect renal edema with perinephric and subcutaneous hematoma versus infiltrative mass such as sarcoma renal cell carcinoma is not excluded. Lactic acidosis secondary to above Anemia with a hemoglobin of 6.7 gm/dl status post transfusion of 1 unit PRBC. Current hemoglobin 7.9. Patient does have baseline anemia of chronic disease. Acute on chronic kidney disease creatinine is currently 3.94. Diabetes mellitus type 2 Hypothyroidism History of CVA History of cognitive delay and memory impairment History of gastric bypass Plan: The patient was seen and evaluated Computed tomography scan of the abdomen, labs and medications and labs reviewed Blood pressure remains stable Continue midodrine Hemoglobin stable at 7.9 Plan is for follow-up CT in 4-6 weeks per urology Transfer out of the ICU today We will continue to follow I have personally seen and examined the patient, performed the documentation and the assessment and plan as written. Number of minutes spent on the visit: 10.
[2022-05-25] MEDS: METOPROLOL SUCCINATE (ER) 50 MG TAB.ER.24H PO SCH (11:37)
[2022-05-25 13:15] LABS: Glucose,Whole Blood 89 mg/dL (70-110)
[2022-05-25 17:04] LABS: Glucose,Whole Blood 91 mg/dL (70-110)
--- NOTE | 2022-05-25 17:56 | P.PN ---
Progress Note - Text Progress Note Date: 05/25/22 Chief Complaint: Right flank pain 37-year-old female with a known history of CVA with right-sided weakness, cognitive impairment, history of gastric bypass surgery, history of DVT on eliquis. oxygen at 2 L via nasal cannula since her COVID infection. CKD with baseline creatinine level around 3.0. resident of [facility] - long-term resident. known history of irregular vaginal bleeding - polycystic ovarian syndrome.. multiple DVTs in the past. Following gastric bypass surgery patient had a stroke and myocardial infarction. - resulted in cognitive impairment. poor short-term memory. - bedbound. contracture of the left hand and foot drop on the right leg. history of hyperlipidemia anxiety hypertension hypothyroid diabetes. Patient has a legal guardian Chandrika Special note: Patient always request more pain medications. But if explained she that this leads to her mental status changing and she is finding the same. This should be kept in mind when she asked for pain medications repeatedly. Will need to be given when she is uncomfortable. Once explained she becomes rather comfortable. Presented to the ER right flank pain and fever. For 2 days. Did have ecchymosis along the right flank. Hemoglobin was noted to be 6.7 did receive 1 unit of blood. In the ER patient had a cardiac arrest felt to be PEA as he suddenly became unresponsive. He received chest compression and spontaneous r eturn of circulation. And moved to the ICU. Has baseline memory impairment. Patient is started on ceftriaxone in the ER. Patient was then put on levo fed drip. Patient overnight was on BiPAP. This morning down to 2 L. 05/23/2022: Patient was seen this morning the ICU. Decreased in ecchymosis on the right flank. Indurated area. Tender. For pain to use K pad. Discussed with the nurse. Explained to the patient about pain. IV daptomycin. Per urology if further decrease in hemoglobin and enlarging right renal fossa that would require renal artery embolization at a tertiary center. Positive blood culture likely contaminant. Had some lunch 05/24/2022: ICU. Laying in bed. 2 L nasal cannula. Eating fair. Patient wanted stronger pain medications. K pad. She can have a home dose of [place]. Explained. Discussed with ID-the procedures repeat computed tomography scan to look at the size of the hematoma. On IV daptomycin. Zosyn has been discontinued. Patient was transferred to medical floor yesterday. So now after vacation became less responsive became hypotensive. Brought back to the ICU. With fluid bolus the blood pressure came back up. May 25: Patient moved to the medical floor. Has been refusing to eat. IV daptomycin. Active Medications Acetaminophen (Acetaminophen Tab 325 Mg Tab) 650 mg PO Q6HR PRN PRN Reason: Mild Pain or Fever > 100.5 Last Admin: 05/25/22 09:54 Dose: 650 mg Hydrocodone Bitart/Acetaminophen (Hydrocodone/Apap 7.5-325mg 1 Each Tab) 1 each PO Q8H PRN PRN Reason: Pain Last Admin: 05/25/22 06:56 Dose: 1 each Atorvastatin Calcium (Atorvastatin 20 Mg Tab) 20 mg PO HS@1999 [facility] Last Admin: 05/24/22 20:10 Dose: 20 mg Baclofen (Baclofen 10 Mg Tab) 10 mg PO HS@1999 [facility] Last Admin: 05/24/22 20:09 Dose: 10 mg Cholecalciferol (Cholecalciferol 25 Mcg (1000 Iu) Tablet) 75 mcg PO DAILY [facility] Last Admin: 05/25/22 09:25 Dose: 75 mcg Clomipramine HCl (Clomipramine 50 Mg Cap) 50 mg PO HS@1999 [facility] Last Admin: 05/24/22 20:10 Dose: 50 mg Clonazepam (Clonazepam 0.5 Mg Tab) 0.25 mg PO BID@ [facility] Last Admin: 05/25/22 09:27 Dose: 0.25 mg Darbepoetin Kurtis (Darbepoetin Kurtis 25 Mcg/0.42 Ml Syringe) 25 mcg SQ MO@2200 [facility] Last Admin: 05/22/22 00:32 Dose: 25 mcg Dextrose/Water (Dextrose 50% Syringe 50 Ml) 25 ml IVP PER PROTOCOL PRN; Protocol PRN Reason: Hypoglycemia Dextrose/Water (Dextrose 50% Syringe 50 Ml) 50 ml IVP PER PROTOCOL PRN; Protocol PRN Reason: Hypoglycemia Famotidine (Famotidine 20 Mg Tab) 20 mg PO DAILY [facility] Last Admin: 05/25/22 09:25 Dose: 20 mg Ferrous Sulfate (Ferrous Sulfate 325 Mg Tab) 325 mg PO BID@ [facility] Last Admin: 05/25/22 09:26 Dose: 325 mg Fluoxetine HCl (Fluoxetine Hcl 20 Mg Cap) 20 mg PO DAILY [facility] Last Admin: 05/25/22 09:25 Dose: 20 mg Furosemide (Furosemide 80 Mg Tab) 80 mg PO DAILY [facility] Last Admin: 05/25/22 09:26 Dose: 80 mg Daptomycin 450 mg/ Sodium (Chloride) 50 mls @ 100 mls/hr IVPB Q48H [facility]; Protocol Last Admin: 05/24/22 17:34 Dose: 100 mls/hr Insulin Aspart (Insulin Aspart (Novolog) 100 Unit/Ml Vial) 0 unit SQ ACHS [facility]; Protocol Last Admin: 05/25/22 17:14 Dose: Not Given Insulin Detemir (Insulin Detemir (Levemir) 100 Unit/Ml Syr) 20 unit SQ HS [facility] Last Admin: 05/24/22 20:13 Dose: 20 unit Levothyroxine Sodium (Levothyroxine 25 Mcg Tab) 25 mcg PO HS@1999 [facility] Last Admin: 05/24/22 20:10 Dose: 25 mcg Melatonin (Melatonin 5 Mg Tablet) 5 mg PO HS@1999 [facility] Last Admin: 05/24/22 20:09 Dose: 5 mg Metoprolol Succinate (Metoprolol Succinate (Er) 50 Mg Tab.Er.24h) 50 mg PO DAILY [facility] Last Admin: 05/25/22 11:37 Dose: Not Given Midodrine (Midodrine 5 Mg Tab) 10 mg PO AC-TID [facility] Last Admin: 05/25/22 14:12 Dose: 10 mg Miscellaneous Information (Potassium Replacement Protocol 1 Each Misc) 1 each MISCELLANE DAILY PRN; Protocol PRN Reason: Per Protocol Multivitamins (Multivitamins, Thera 1 Each Tab) 1 each PO DAILY [facility] Last Admin: 05/25/22 09:25 Dose: 1 each Naloxone HCl (Naloxone 0.4 Mg/Ml 1 Ml Vial) 0.2 mg IV Q2M PRN PRN Reason: Opioid Reversal Non-Formulary Medication (Norethindrone [Chani]) 0.35 mg PO DAILY [facility] Last Admin: 05/25/22 09:28 Dose: Not Given Ondansetron HCl (Ondansetron 4 Mg/2 Ml Vial) 4 mg IVP Q8HR PRN PRN Reason: Nausea And Vomiting Polyethylene Glycol (Polyethylene Glycol 3350 17 Gm Powd.Pack) 17 gm PO DAILY [facility] Last Admin: 05/25/22 09:27 Dose: Not Given Senna/Docusate Sodium (Sennosides-Docusate Sodium 1 Each Tab) 2 each PO HS@1999 [facility] Last Admin: 05/24/22 20:10 Dose: 2 each Sodium Bicarbonate (Sodium Bicarbonate Tab 650 Mg Tab) 650 mg PO BID@ [facility] Last Admin: 05/25/22 09:25 Dose: 650 mg Past medical history to include: Stroke resulting in decreased memory (contracture, following, in 2014 following surgery, DVT, IA, gastric bypass in 2016, anxiety depression, muscle spasms, irregular menstrual bleeding, hypertension, hypothyroid chronic pain in the hands / back. Irregular vaginal bleeding-polycystic ovary syndrome. Multiple DVTs in the past. Following gastric bypass surgery patient had a stroke and myocardial infarction. Resulting in cognitive impairment. Hyperlipidemia, anxiety, hypertension, hypothyroid Social history: long-term resident of [facility], no smoking. Did smoke marijuana in high school. Pretty much bedbound. Has a legal guardian Chandrika Physical examination: VITAL SIGNS: 96.5, 106, 16, 96/65, 100% on 2 L GENERAL: Reclining in bed,, EYES: Pupils equal. Conjunctiva pale. HEENT: External appearance of nose and ears normal, oral cavity grossly normal. NECK: JVD unable to assess masses not palpable. HEART: Heart sounds are muffled; no edema. LUNGS: Respiratory rate normal; distant breath sounds. ABDOMEN: Soft, Right flank Tenderness / induration, liver spleen not palpable, no masses palpable. PSYCH: Answering simple. Mood and affect normal. Forgetful NEUROLOGICAL: [Cranial nerves grossly intact; no facial asymmetry, contracture of the left hand. Right Foot drop INVESTIGATIONS, reviewed in the clinical context: May 25: White count 13.8 hemoglobin 7.9 platelets 434 potassium 3.8 BUN 64 creatinine 3.94 May 24: White count 15.1 hemoglobin 8 platelets 386 potassium 3.9 BUN 62 creatinine 3.98 troponin I less than 0.012, TSH 1.6 cortisol 30 Blood cultures [May 21]. Staphylococcus hemolyticus. Staphylococcusschleife ri. Repeat blood cultures negative May 23: White count 13.3 hemoglobin 8.5 platelets 327 potassium 3.5. An 60 creatinine 3.9 to 05/22/2022: White count 14.8 hemoglobin 8.4 platelets 474, sodium 137 creatinine 3.49 UA: Leukoesterase large. WBC 182 nitrate negative Admission labs: White count 16.1 hemoglobin 6.7 platelets 577 sodium 135 potassium 3.6 BUN 57 creatinine 3.46 lactic acid 2.[address] abdomen pelvis without contrast: Right adrenal gland not identified. Gallbladder surgically absent. 8.2 cm mass within the expected region of the right kidney. This was previously an atrophic kidney. That was enlarged. Perinephric stranding. Soft tissue density in the posterior right flank is a level of this right kidney. Small amount of air is present in the region of the right kidney. Ecchymosis appears to extend to the flank to the thigh. Chest x-ray film personally reviewed by me-infiltrate versus edema possible. EKG tracing personally reviewed by me-heart rate 108. Sinus tachycardia Renal ultrasound: Masslike area within the lower pole of the kidney in the right. Circumferentially wall thickening of the sigmoid colon. Assessment plan: -Suspect infected hematoma right renal bed secondary to patient being on eliquis - atrophic kidney previously. This seems to track down to the thigh. IV daptomycin. Blood cultures as above . Follow with ID. Repeat computed tomography scan abdomen order to compare with the previous computed tomography scan. -Sepsis, POA from infected hematoma -PEA cardiac arrest witnessed lasting about 3 minutes. Patient did receive 1 amp of epinephrine and CPR. Fluid bolus and levo fed. - discontinued -Combination of septic shock and hypovolemic shock from bleeding./Hematoma. Better Fluid resuscitation, IV levo fed-discontinued. IV daptomycin -Acute hypoxic respiratory failure from combination of obesity hypoventilation, questionable pneumonia. Initially placed on BiPAP now down to 2 L -Chronic hypoxic respiratory failure On 2 L of nasal cannula at baseline -Chronic medical debility, patient is not ambulatory -Anemia of chronic kidney disease Hemoglobin was 7.3 on February 2022 - obesity BMI 36.7 -Chronic left hand contracture, right foot drop -Chronic multiple DVTs eliquis 2.5 mg held -Hyperlipidemia Lipitor 20 mg daily at bedtime -Muscle spasm Baclofen 10 mg daily at bedtime -Essential hypertension Toprol-XL currently held because of low blood pressure -Hypothyroid Synthroid 25 g at bedtime -Diabetes mellitus type 2, chronic on insulin Levemir 20 mg daily at bedtime. Follow Accu-Cheks -Chronic pain in the left hand and lower back. [place] 7.5 every 12 when necessary -Anxiety depression Patient on Klonopin 0.5 mg daily at bedtime Prozac 20 mg daily-outpatient -Bilateral nonobstructing renal calculi,-asymptomatic -Chronic kidney disease stage 4 from obstructive uropathy with a history of left ureteral stent. Creatinine 3.26 on 02/19/2022 -Chronic Right renal atrophy -Full code , IV daptomycin. Other medications to continue. Encourage oral intake.
[2022-05-25 21:00] LABS: Glucose,Whole Blood 105 mg/dL (70-110)
[2022-05-25] MEDS: LEVOTHYROXINE 25 MCG TAB PO SCH (21:20)
[2022-05-25] MEDS: MELATONIN 5 MG TABLET PO SCH (21:20)
[2022-05-25] MEDS: BACLOFEN 10 MG TAB PO SCH (21:21)
[2022-05-25] MEDS: SENNOSIDES-DOCUSATE SODIUM 1 EACH TAB PO SCH (21:21)
[2022-05-25] MEDS: ATORVASTATIN 20 MG TAB PO SCH (21:21)
[2022-05-25] MEDS: INSULIN DETEMIR (LEVEMIR) 100 UNIT/ML SYR SQ SCH (21:31)
[2022-05-26] MEDS: HYDROcodone/APAP 7.5-325MG 1 EACH TAB PO PRN ×2 (06:24→18:13)
[2022-05-26 07:57] LABS: Glucose,Whole Blood 108 mg/dL (70-110)
[2022-05-26] MEDS: INSULIN ASPART (NovoLOG) 100 UNIT/ML VIAL SQ SCH ×4 (08:09→21:30)
--- NOTE | 2022-05-26 08:24 | P.PN ---
Subjective Progress Note Date: 05/26/22 I'm seeing this patient in new consultation today 05/22/2022 in the intensive care unit after suspected cardiac arrest in the emergency room. Patient is a 37-year-old white female with multiple significant comorbidities including myocardial infarction, diabetes mellitus type 2, chronic kidney disease, hy pothyroidism, anemia, frequent urinary tract infections with ESBL producing E. coli, CVA, pancreatitis, cognitive delay, DVT, gastric bypass. Patient does have a public guardian is a poor historian. Patient did have a recent prolonged hospital admission in January, for acute hypoxic respiratory failure related to CHF exacerbation versus pneumonia. Patient was brought in yesterday afternoon for right flank pain. An abdominal and pelvis CT without contrast done yesterday showed an 8.2 cm mass within the region of the right kidney. The previously atrophic kidney was enlarged with perinephric stranding. There was soft tissue density subcutaneous and deep tissues the right flank at the level of enlarged kidney. There was small amount of air present within the region. Ecchymosis extended throughout the right flank to the thigh. Correlation for hematoma was recommended. While in the emergency room, the patient became unresponsive and a CODE BLUE was activated. The presenting rhythm was PEA. Patient was successfully resuscitated after 1 round of CPR and 1 amp of epinephrine with an estimated down time of 3 minutes. She did not require intubation. She was hypotensive and given 1 L normal saline bolus. She did require a norepinephrine infusion, currently running at 0.1 mics per kg per minute, through a right IJ triple-lumen central line catheter. Patient is currently resting comfortably on 4 L nasal cannula, in no acute distress. Patient is oxygenating at near 100%. Post resuscitation chest x-ray showed no acute cardiopulmonary process. The patient's right flank area has extensive soft tissue edema, no obvious bruising or ecchymosis. The area is tender to palpat ion. A follow-up CBC showed a hemoglobin of 6.7, hematocrit 22.8, WBC 16, platelets 577,000. The patient was transfused 1 unit PRBC. Patient's BMP shows sodium 135, potassium 3.6, chloride 104, serum CO2 19, P1 57, creatinine chronically elevated at 3.46, glucose 137. Patient's lactic acid level was elevated at 2.9. Patient did receive a dose of Rocephin. She has been intermittently febrile with a T-max of 100.3F. Troponin was negative 1. NT proBNP was mildly elevated at 1720. Vital signs are stable. Patient is in the intensive care unit for closer monitoring. The patient is seen today 05/23/2022 in follow-up in the intensive care unit. She is currently awake and alert. Resting fairly comfortably in bed. She is maintaining O2 saturations up to 100% on 4 L/m per nasal cannula. No IV fluids currently. She has received 1 unit of packed red blood cells this admission. Current hemoglobin 8.5. Platelets 387. White count 13.3. Sodium 133. Potassium 3.5. Bicarb 19. BUN 60. Creatinine 3.92. Glucose 187. Urine positive for moderate bacteria and many white blood cells. Blood cultures positive for coag-negative staph. Urine culture pending. She is currently on daptomycin and Zosyn. ID service is on the case. She has been seen by urology regarding the right flank mass. Definitive diagnosis would require a CT-guided biopsy/aspiration. They feel they hemoglobin drops in the size of the per P nephrectomy mass increases it would be consistent for enlarging hematoma and may need transfer to a tertiary care center for right renal arterial embolization. The patient is seen today 05/24/2022 in follow-up in the intensive care unit. She is currently resting fairly comfortably in bed. Awake and alert. She was transferred out of the ICU yesterday but brought back to the ICU early this morning for hypotension. She is maintaining good O2 saturations in the 90s on 2 L/m per nasal cannula. She has normal saline at KVO. TSH and cortisol levels were within normal limits. Metoprolol is placed on hold. Patient did not require norepinephrine thus far. Initial blood cultures positive for coag- negative staph follow-up blood cultures revealing no growth. Urine culture no growth. White count 15.1. Hemoglobin 8.0. Platelets 386. Sodium 136. Potassium 3.9. Bicarb 18. BUN 62. Creatinine 3.9. TSH 1.68. Cortisol level 30. She remains on Zosyn and daptomycin currently. The patient is seen today 05/25/2022 in follow-up in the intensive care unit. She is currently awake and alert in no acute distress. Continue O2 saturations up to 100% on 3 L/m nasal cannula. Currently down to 2 L. She is denying any worsening shortness of breath, cough or congestion. She is asking to go home. Computed tomography scan of the abdomen reveals a right renal mass with perinephric soft tissue component as well as soft tissue in the right subcutaneous flank region. The findings could be posttraumatic in the appropriate clinical setting and reflect renal edema with perinephric and subcutaneous hematoma versus infiltrative mass such as sarcoma renal cell carcinoma is not excluded. She is status post 1 unit of packed red blood cells this admission. Follow-up blood cultures reveal no growth. Urine culture revealed no growth. White count 13.8. He was 7.9. Platelets 434. Sodium 138. Potassium 3.8. Bicarb 18. BUN 64. Creatinine 3.94. Glucose 89. She is continued on daptomycin. Oral diuretics. Sodium bicarb tablets. The patient is seen today 05/26/2022 in follow-up on the regular medical floor. She is currently resting comfortably in bed. Awake and alert in no acute distress. Maintaining good O2 saturations in the 90s on room air. She is status post 1 unit of packed red blood cells this admission. Yesterday's hemoglobin was 7.9. Today's hemoglobin is pending. Blood cultures are positive for staph schleiferi SS, Staphylococcus hemolyticus from 05/21/2022. Blood culture from 05/23/2022 revealed no growth. Urine culture revealed no growth. Blood glucose 108. She is currently on daptomycin. Objective - Vital Signs Vital signs: Vital Signs Temp 99.0 F 05/26/22 07:32 Pulse 116 H 05/26/22 07:32 Resp 16 05/26/22 07:32 BP 100/63 05/26/22 07:32 Pulse Ox 90 L 05/26/22 07:32 FiO2 Intake & Output 05/25/22 05/26/22 05/26/22 18:59 06:59 18:59 Intake Total 240 200 Output Total 700 376 Balance -460 -176 Weight 99.5 kg Intake: IV 40 0.9 KVO 40 Oral 200 200 Output: Urine 700 375 Stool 1 Other: Voiding Method External Catheter External Catheter - Exam GENERAL EXAM: Alert, pale, 37-year-old female, on room air, comfortable in no apparent distress. HEAD: Normocephalic and atraumatic EYES: Normal reaction of pupils, equal size. NOSE: Clear with pink turbinates. THROAT: No erythema or exudates. NECK: No masses, no JVD. CHEST: No chest wall deformity. LUNGS: Equal air entry with no crackles, wheeze, rhonchi or dullness. No conversational dyspnea or accessory muscle use. CVS: S1 and S2 normal with no audible murmur, regular rhythm. No extra heart sounds ABDOMEN: No hepatosplenomegaly, active bowel sounds, no guarding or rigidity. SPINE: No scoliosis or deformity SKIN: No rashes. There is extensive soft tissue swelling on the right flank area. No bruising or ecchymosis. CENTRAL NERVOUS SYSTEM: No focal deficits, tone is normal in all 4 extremities. EXTREMITIES: There is mild bilateral nonpitting edema of the lower extremities. No clubbing, or cyanosis. Peripheral pulses are intact. - Labs CBC & Chem 7: 05/25/22 05:45 05/25/22 05:45 Labs: Microbiology - Last 24 Hours (Table) 05/23/22 05:57 Blood Culture - Final Blood 05/21/22 18:55 Blood Culture Gram Stain - Final Blood Blood Culture - Final Staph schleiferi SS coagulans 05/21/22 18:40 Blood Culture Gram Stain - Final Blood Blood Culture - Final Staphylococcus haemolyticus Assessment and Plan Assessment: PEA cardiac arrest witnessed with an estimated 3 minute downtime. Patient did receive CPR and 1 amp of epinephrine. Hypotension was treated with 1 L normal saline bolus, and started on a norepinephrine infusion. The patient had recovered and was off norepinephrine. Transferred out of the intensive care unit on 05/23/2022. Brought back to the and the intensive care unit tuyere fitter 05/24/2022 with hypotension. Did not require any norepinephrine at this point. Add midodrine 10 mg 3 times a day. Hold metoprolol. Cortisol level 30. TSH normal. Right flank pain currently under investigation. An abdominal and pelvis CT without contrast showed an 8.2 cm mass within the expected region of the right kidney. There was an enlarged right kidney with perinephric stranding. There was soft tissue density in the subcutaneous and did tissues the right flank at the level of the enlarged kidney. Small amount of air was present within this region. Ecchymosis appeared to extend through the flank to the thigh. Hematoma versus developing abscess are within the differential. Patient's anticoagulants currently on hold. Follow-up computed tomography scan from 05/24/2022 revealed a right renal mass with perinephric soft tissue component as well as soft tissue in the right subcutaneous flank region. The findings could be posttraumatic in the appropriate clinical setting and reflect renal edema with perinephric and subcutaneous hematoma versus infiltrative mass such as sarcoma renal cell carcinoma is not excluded. Lactic acidosis secondary to above Anemia with a hemoglobin of 6.7 gm/dl status post transfusion of 1 unit PRBC. Current hemoglobin 7.9. Patient does have baseline anemia of chronic disease. Acute on chronic kidney disease creatinine is currently 3.94. Diabetes mellitus type 2 Hypothyroidism History of CVA History of cognitive delay and memory impairment History of gastric bypass Plan: The patient was seen and evaluated Medications and labs reviewed Blood pressure remains stable Continue midodrine Currently on room air Last hemoglobin stable at 7.9 Today's hemoglobin is pending Plan is for follow-up CT in 4-6 weeks per urology Cleared for discharge once cleared by medicine I have personally seen and examined the patient, performed the documentation and the assessment and plan as written. Number of minutes spent on the visit: 10.
[2022-05-26 09:19] LABS: Anisocytosis Slight; Basophils % (A) 0 %; Eosinophils # (A) 0.1 k/uL (0-0.7); Eosinophils % (A) 1 %; HCT 27.1 % (34.0-46.0); HGB 7.9 gm/dL (11.4-16.0); Hypochromasia Marked; Lymphocytes % (A) 9 %; MCH 25.4 pg (25.0-35.0); MCHC 29.4 g/dL (31.0-37.0); MCV 86.4 fL (80.0-100.0); Mean Platelet Volume 7.3; Monocytes # (A) 0.4 k/uL (0-1.0); Monocytes % (A) 3 %; Neutrophils # (A) 9.2 k/uL (1.3-7.7); Neutrophils % (A) 84 %; Platelet Count 453 k/uL (150-450); Poikilocytosis Moderate; RBC 3.13 m/uL (3.80-5.40); RDW 18.6 % (11.5-15.5); WBC 10.9 k/uL (3.8-10.6)
[2022-05-26] MEDS: FAMOTIDINE 20 MG TAB PO SCH (09:26)
[2022-05-26] MEDS: SODIUM BICARBONATE TAB 650 MG TAB PO SCH ×2 (09:26→21:08)
[2022-05-26] MEDS: MULTIVITAMINS, THERA 1 EACH TAB PO SCH (09:26)
[2022-05-26] MEDS: FLUoxetine HCL 20 MG CAP PO SCH (09:27)
[2022-05-26] MEDS: CHOLECALCIFEROL 25 MCG (1000 IU) TABLET PO SCH (09:27)
[2022-05-26] MEDS: FUROSEMIDE 80 MG TAB PO SCH (09:27)
[2022-05-26] MEDS: MIDODRINE 5 MG TAB PO SCH ×3 (09:27→18:00)
[2022-05-26] MEDS: METOPROLOL SUCCINATE (ER) 50 MG TAB.ER.24H PO SCH (09:27)
[2022-05-26] MEDS: clonazePAM 0.5 MG TAB PO SCH ×2 (09:27→21:07)
[2022-05-26] MEDS: FERROUS SULFATE 325 MG TAB PO SCH ×2 (09:27→21:28)
[2022-05-26] MEDS: NON FORMULARY DRUG (Norethindrone [Camila] 0.35 MG Tablet) PO SCH (09:28)
[2022-05-26] MEDS: polyethylene glycoL 3350 17 GM POWD.PACK PO SCH (09:28)
[2022-05-26 09:47] LABS: African American GFR (CKD) 15 (>60 ml/min/1.73 sqM); Anion Gap 13 mmol/L; Blood Urea Nitrogen 67 mg/dL (7-17); Calcium 8.9 mg/dL (8.4-10.2); Carbon Dioxide 17 mmol/L (22-30); Chloride 108 mmol/L (98-107); Glucose 101 mg/dL (74-99); Non-African American GFR(CKD) 13 (>60 ml/min/1.73 sqM); Potassium 3.5 mmol/L (3.5-5.1); Sodium 138 mmol/L (137-145)
[2022-05-26 11:39] LABS: Glucose,Whole Blood 82 mg/dL (70-110)
--- NOTE | 2022-05-26 16:00 | P.PN ---
Subjective Progress Note Date: 05/25/22 Principal diagnosis: Right flank abscess/hematoma and bacteremia Patient is a 37-year-old female with a past medical history significant for CVA TIA DVT morbid obesity history of recurrent UTI patient presenting to the ER with concern for right flank pain, patient did have abnormal CT concerning for increasing mass to the right kidney area and the patient also have a cardiac arrest on the floor requiring transfer to the ICU blood cultures with coagulase negative staph On today's evaluation of that is 05/25/2022, the patient continues to be afebrile patient is hemodynamically stable and not requiring any pressor support, patient has been moved out of the before meals, is currently breathing comfortably on 2 L nasal cannula oxygen, denies any chest pain shortness of breath or cough Objective - Vital Signs Vital signs: Vital Signs Temp 98.6 F 05/25/22 09:00 Pulse 110 H 05/25/22 09:00 Resp 18 05/25/22 09:00 BP 96/62 05/25/22 09:00 Pulse Ox 100 05/25/22 09:00 FiO2 Intake & Output 05/24/22 05/25/22 05/25/22 18:59 06:59 18:59 Intake Total 650 130 240 Output Total 452 400 500 Balance 198 -270 -260 Weight 99.5 kg Intake: IV 210 130 40 0.9 KVO 60 130 40 DAPTOmycin 450 mg In 50 Sodium Chloride 0.9% 50 ml @ 100 mls/hr IVPB Q48H [facility] Rx#:[id number] Piperacillin-Tazobactam 3 100 .375 gm In Sodium Chloride 0.9% 100 ml @ 25 mls/hr IVPB Q12HR [facility] Rx #:[id number] Oral 440 200 Output: Urine 450 400 500 Stool 2 Other: Voiding Method Diaper Diaper External Catheter - Exam GENERAL DESCRIPTION: A middle-aged female lying in bed in no distress RESPIRATORY SYSTEM: Unlabored breathing , decreased breath sounds at bases HEART: S1 S2 regular rate and rhythm , ABDOMEN: Soft , no tenderness - Labs CBC & Chem 7: 05/26/22 08:45 05/26/22 08:45 Labs: Abnormal Lab Results - Last 24 Hours (Table) 05/24/22 05/24/22 05/25/22 Range/Units 17:39 20:04 05:45 WBC 13.8 H (3.8-10.6) k/uL RBC 3.04 L (3.80-5.40) m/uL Hgb 7.9 L (11.4-16.0) gm/dL Hct 26.6 L (34.0-46.0) % MCHC 29.7 L (31.0-37.0) g/dL RDW 18.2 H (11.5-15.5) % Neutrophils # 12.0 H (1.3-7.7) k/uL Chloride (98-107) mmol/L Carbon Dioxide (22-30) mmol/L BUN (7-17) mg/dL Creatinine (0.52-1.04) mg/dL POC Glucose (mg/dL) 116 H 117 H (70-110) mg/dL 05/25/22 Range/Units 05:45 WBC (3.8-10.6) k/uL RBC (3.80-5.40) m/uL Hgb (11.4-16.0) gm/dL Hct (34.0-46.0) % MCHC (31.0-37.0) g/dL RDW (11.5-15.5) % Neutrophils # (1.3-7.7) k/uL Chloride 108 H (98-107) mmol/L Carbon Dioxide 18 L (22-30) mmol/L BUN 64 H (7-17) mg/dL Creatinine 3.94 H (0.52-1.04) mg/dL POC Glucose (mg/dL) (70-110) mg/dL Microbiology - Last 24 Hours (Table) 05/23/22 05:57 Blood Culture - Preliminary Blood No Growth after 48 hours Assessment and Plan (1) Positive blood culture Current Visit: Yes Status: Acute Code(s): R78.81 - BACTEREMIA SNOMED Code(s): 242519438 (2) Abscess of flank Current Visit: Yes Status: Acute Code(s): L02.211 - CUTANEOUS ABSCESS OF ABDOMINAL WALL SNOMED Code(s): 19128107 Plan: 1patient presented to the hospital with sepsis in this patient who did have a fever elevated white count has been complaining of flank pain with evidence of possible renal abscess/pyelonephritis likely from enteric gram-negative pathogen. 2patient did have a positive blood culture which has been finalized as coagulase negative staph with a question of possible skin contamination versus related to the right flank mass 3patient with renal insufficiency high risk of nephrotoxicity from vancomycin 4-blood cultures repeat has been negative so far 5-patient did have a repeat CT apparently did not show any significant change from the previous CAT scan as per recommendation by urology patient to continue with the Zosyn and daptomycin and monitor clinical course closely Time with Patient: Less than 30
--- NOTE | 2022-05-26 16:02 | P.PN ---
Subjective Progress Note Date: 05/26/22 Principal diagnosis: Right flank abscess/hematoma and bacteremia Patient is a 37-year-old female with a past medical history significant for CVA TIA DVT morbid obesity history of recurrent UTI patient presenting to the ER with concern for right flank pain, patient did have abnormal CT concerning for increasing mass to the right kidney area and the patient also have a cardiac arrest on the floor requiring transfer to the ICU blood cultures with coagulase negative staph On today's evaluation of that is 05/26/2022, the patient remains to be afebrile is breathing comfortably on room air, the patient denies any chest pain shortness of breath or cough, no abdominal pain and vomiting or diarrhea has been reported Objective - Vital Signs Vital signs: Vital Signs Temp 98.0 F 05/26/22 13:08 Pulse 104 H 05/26/22 13:08 Resp 18 05/26/22 13:08 BP 102/68 05/26/22 13:08 Pulse Ox 94 L 05/26/22 13:08 FiO2 Intake & Output 05/25/22 05/26/22 05/26/22 18:59 06:59 18:59 Intake Total 240 200 Output Total 700 376 Balance -460 -176 Weight 99.5 kg Intake: IV 40 0.9 KVO 40 Oral 200 200 Output: Urine 700 375 Stool 1 Other: Voiding Method External Catheter External Catheter Incontinent External Catheter - Exam GENERAL DESCRIPTION: A middle-aged female lying in bed in no distress RESPIRATORY SYSTEM: Unlabored breathing , decreased breath sounds at bases HEART: S1 S2 regular rate and rhythm , ABDOMEN: Soft , no tenderness - Labs CBC & Chem 7: 05/26/22 08:45 05/26/22 08:45 Labs: Abnormal Lab Results - Last 24 Hours (Table) 05/26/22 05/26/22 Range/Units 08:45 08:45 WBC 10.9 H (3.8-10.6) k/uL RBC 3.13 L (3.80-5.40) m/uL Hgb 7.9 L (11.4-16.0) gm/dL Hct 27.1 L (34.0-46.0) % MCHC 29.4 L (31.0-37.0) g/dL RDW 18.6 H (11.5-15.5) % Plt Count 453 H (150-450) k/uL Neutrophils # 9.2 H (1.3-7.7) k/uL Chloride 108 H (98-107) mmol/L Carbon Dioxide 17 L (22-30) mmol/L BUN 67 H (7-17) mg/dL Creatinine 4.07 H (0.52-1.04) mg/dL Glucose 101 H (74-99) mg/dL Microbiology - Last 24 Hours (Table) 05/23/22 05:57 Blood Culture Gram Stain - Preliminary Blood 05/23/22 05:57 Blood Culture - Final Blood 05/21/22 18:55 Blood Culture Gram Stain - Final Blood Blood Culture - Final Staph schleiferi SS coagulans 05/21/22 18:40 Blood Culture Gram Stain - Final Blood Blood Culture - Final Staphylococcus haemolyticus Assessment and Plan (1) Positive blood culture Current Visit: Yes Status: Acute Code(s): R78.81 - BACTEREMIA SNOMED Code(s): 677438918 (2) Abscess of flank Current Visit: Yes Status: Acute Code(s): L02.211 - CUTANEOUS ABSCESS OF ABDOMINAL WALL SNOMED Code(s): 29588746 Plan: 1patient presented to the hospital with sepsis in this patient who did have a fever elevated white count has been complaining of flank pain with evidence of possible renal abscess/pyelonephritis likely from enteric gram-negative pathogen. Patient also have a positive blood culture with staph epi has been finalized with staphylococcus hemolyticus, repeat CT did not show any worsening however keeping in mind the persistent bacteremia slightly concerning and could be representing abscess blood cultures will be repeated document clearance of bacteremia 2-we will request for IR drainage of this fluid collection on Saturday 3-discontinue daptomycin. Start The patient on Rocephin 2 g daily Time with Patient: Less than 30
[2022-05-26 17:15] LABS: Glucose,Whole Blood 206 mg/dL (70-110)
--- NOTE | 2022-05-26 20:33 | P.PN ---
Subjective Progress Note Date: 05/26/22 Principal diagnosis: Right renal mass, probable hematoma The patient is a 37-year-old female with a history of CVA, DVT, OR, diabetes mellitus, anemia, pancreatitis, atrophic right kidney, recurrent UTIs with ESBL, and kidney stones requiring surgical intervention. The patient also has a history of renal failure due to an obstructed stent. On 05/21/22 she presented to the emergency department for an abscess on her back, that she believes has been present for a couple days. She is bedbound at home and describes the abscess area to be very painful. She denies any fever, chills, chest pain, abdominal pain, nausea, vomiting, headaches. However, the patient is a poor historian and has memory impairment after suffering her stroke and has a public guardian. An abdominal and pelvis CT without contrast done yesterday showed an 8.2 cm mass within the region of the right kidney. The previously atrophic kidney was enlarged with perinephric stranding. There was soft tissue density subcutaneous and deep tissues the right flank at the level of enlarged kidney. There was small amount of air present within the region. Ecchymosis extended throughout the right flank to the thigh. Correlation for hematoma was recommended. While in the emergency room, the patient became unresponsive and a CODE BLUE was activated. The presenting rhythm was PEA. Patient was successfully resuscitated after 1 round of CPR and 1 amp of epinephrine with an estimated down time of 3 minutes. She did not require intubation. CXR showed no acute cardiopulmonary process. A follow-up CBC showed a hemoglobin of 6.7, hematocrit 22.8, WBC 16, platelets 57. The patient was transfused 1 unit PRBC. Serum creatinine 3.86 upon admission. 05/23 The hemoglobin level this morning was 8.5, up from 8.4 yesterday. She remains tachycardic. I suspect that the CT scan findings represent a right perinephric hematoma. Urine culture shows mixed genital kelli. Blood cultures showed coagulase-negative staph, the significance of which is unclear. Definitive diagnosis would require CT-guided biopsy/aspiration. If the hemoglobin level drops and the size of the perinephric mass increases, this would be consistent with an enlarging hematoma in which case I would recommend referral to a tertiary care center for right renal arterial embolization. 05/24 The hemoglobin level this morning was 8.0, down from 8.5 yesterday. She remains tachycardic. I suspect that the CT scan findings represent a right perinephric hematoma. 05/25 The hemoglobin level this morning was 7.9, which is stable. Objective - Vital Signs Vital signs: Vital Signs Temp 97.7 F 05/26/22 19:56 Pulse 111 H 05/26/22 19:56 Resp 18 05/26/22 19:56 BP 101/67 05/26/22 19:56 Pulse Ox 94 L 05/26/22 19:56 FiO2 Intake & Output 05/26/22 05/26/22 05/27/22 06:59 18:59 06:59 Intake Total 200 Output Total 376 750 Balance -176 -750 Intake: Oral 200 Output: Urine 375 750 Stool 1 Other: Voiding Method External Catheter Incontinent External Catheter - Exam General: Well developed, well nourished. No acute distress. HEENT: Head is atraumatic, normocephalic. Lungs: Respirations even and nonlabored. On 3L NC. Abdomen/GI: Soft, obese, non-distended. Skin: Warm and dry Neurologic: Memory impairment, CN II-XII grossly intact. Psychiatric: Normal affect and mood - Labs CBC & Chem 7: 05/26/22 08:45 05/26/22 08:45 Labs: Abnormal Lab Results - Last 24 Hours (Table) 05/26/22 05/26/22 05/26/22 Range/Units 08:45 08:45 17:13 WBC 10.9 H (3.8-10.6) k/uL RBC 3.13 L (3.80-5.40) m/uL Hgb 7.9 L (11.4-16.0) gm/dL Hct 27.1 L (34.0-46.0) % MCHC 29.4 L (31.0-37.0) g/dL RDW 18.6 H (11.5-15.5) % Plt Count 453 H (150-450) k/uL Neutrophils # 9.2 H (1.3-7.7) k/uL Chloride 108 H (98-107) mmol/L Carbon Dioxide 17 L (22-30) mmol/L BUN 67 H (7-17) mg/dL Creatinine 4.07 H (0.52-1.04) mg/dL Glucose 101 H (74-99) mg/dL POC Glucose (mg/dL) 206 H (70-110) mg/dL Microbiology - Last 24 Hours (Table) 05/23/22 05:57 Blood Culture Gram Stain - Preliminary Blood 05/23/22 05:57 Blood Culture - Final Blood Assessment and Plan Assessment: Hemoglobin today stable at 7.9, as it was yesterday. She remains tachycardic but is clinically stable. (1) Right flank mass Current Visit: Yes Status: Acute Code(s): R19.00 - INTRA-ABD AND PELVIC SWELLING, MASS AND LUMP, UNSP SITE SNOMED Code(s): 132442193 Plan: - Continue antibiotics per IDs recommendation - Monitor CBC - Recommend repeat CT in 4-6 wks if Hgb remains stable
[2022-05-26 20:46] LABS: Glucose,Whole Blood 224 mg/dL (70-110)
[2022-05-26] MEDS: MELATONIN 5 MG TABLET PO SCH (21:08)
[2022-05-26] MEDS: SENNOSIDES-DOCUSATE SODIUM 1 EACH TAB PO SCH (21:09)
[2022-05-26] MEDS: LEVOTHYROXINE 25 MCG TAB PO SCH (21:09)
[2022-05-26] MEDS: BACLOFEN 10 MG TAB PO SCH (21:09)
[2022-05-26] MEDS: ATORVASTATIN 20 MG TAB PO SCH (21:09)
[2022-05-26] MEDS: INSULIN DETEMIR (LEVEMIR) 100 UNIT/ML SYR SQ SCH (21:46)
--- NOTE | 2022-05-26 23:31 | P.PN ---
Progress Note - Text Progress Note Date: 05/26/22 Chief Complaint: Right flank pain 37-year-old female with a known history of CVA with right-sided weakness, cognitive impairment, history of gastric bypass surgery, history of DVT on eliquis. oxygen at 2 L via nasal cannula since her COVID infection. CKD with baseline creatinine level around 3.0. resident of [facility], Former[facility] - long-term resident. known history of irregular vaginal bleeding - polycystic ovarian syndrome.. multiple DVTs in the past. Following gastric bypass surgery patient had a stroke and myocardial infarction. - resulted in cognitive impairment. poor short-term memory. - bedbound. contracture of the left hand and foot drop on the right leg. history of hyperlipidemia anxiety hypertension hypothyroid diabetes. Patient has a legal guardian Chandrika Special note: Patient always request more pain medications. But if explained she that this leads to her mental status changing and she is finding the same. This should be kept in mind when she asked for pain medications repeatedly. Will need to be given when she is uncomfortable. Once explained she becomes rather comfortable. Presented to the ER right flank pain and fever. For 2 days. Did have ecchymosis along the right flank. Hemoglobin was noted to be 6.7 did receive 1 unit of blood. In the ER patient had a cardiac arrest felt to be PEA as he suddenly became unresponsive. He received chest compression and spontaneous r eturn of circulation. And moved to the ICU. Has baseline memory impairment. Patient is started on ceftriaxone in the ER. Patient was then put on levo fed drip. Patient overnight was on BiPAP. This morning down to 2 L. 05/23/2022: Patient was seen this morning the ICU. Decreased in ecchymosis on the right flank. Indurated area. Tender. For pain to use K pad. Discussed with the nurse. Explained to the patient about pain. IV daptomycin. Per urology if further decrease in hemoglobin and enlarging right renal fossa that would require renal artery embolization at a tertiary center. Positive blood culture likely contaminant. Had some lunch 05/24/2022: ICU. Laying in bed. 2 L nasal cannula. Eating fair. Patient wanted stronger pain medications. K pad. She can have a home dose of Harrison. Explained. Discussed with ID-the procedures repeat computed tomography scan to look at the size of the hematoma. On IV daptomycin. Zosyn has been discontinued. Patient was transferred to medical floor yesterday. So now after vacation became less responsive became hypotensive. Brought back to the ICU. With fluid bolus the blood pressure came back up. May 25: Patient moved to the medical floor. Has been refusing to eat. IV daptomycin. May 26: Patient not eating this morning again. Spoke to the nurse to encourage the patient to eat. Done on the lights and opened the drapes Patient is sleepy. We'll make the morning dose of Klonopin when necessary. Discussed with patient. Much improved pain in the right flank. ID is ordered IR to drain the possible infected hematoma on Saturday. Antibiotics being changed to Rocephin 2 g daily Active Medications Acetaminophen (Acetaminophen Tab 325 Mg Tab) 650 mg PO Q6HR PRN PRN Reason: Mild Pain or Fever > 100.5 Last Admin: 05/25/22 09:54 Dose: 650 mg Hydrocodone Bitart/Acetaminophen (Hydrocodone/Apap 7.5-325mg 1 Each Tab) 1 each PO Q8H PRN PRN Reason: Pain Last Admin: 05/26/22 18:13 Dose: 1 each Atorvastatin Calcium (Atorvastatin 20 Mg Tab) 20 mg PO HS@1999 [facility] Last Admin: 05/26/22 21:09 Dose: 20 mg Baclofen (Baclofen 10 Mg Tab) 10 mg PO HS@1999 [facility] Last Admin: 05/26/22 21:09 Dose: 10 mg Cholecalciferol (Cholecalciferol 25 Mcg (1000 Iu) Tablet) 75 mcg PO DAILY [facility] Last Admin: 05/26/22 09:27 Dose: 75 mcg Clomipramine HCl (Clomipramine 50 Mg Cap) 50 mg PO HS@1999 [facility] Last Admin: 05/26/22 21:28 Dose: 50 mg Clonazepam (Clonazepam 0.5 Mg Tab) 0.25 mg PO [facility] Clonazepam (Clonazepam 0.5 Mg Tab) 0.25 mg PO DAILY PRN PRN Reason: Anxiety Darbepoetin Kurtis (Darbepoetin Kurtis 25 Mcg/0.42 Ml Syringe) 25 mcg SQ MO@2200 [facility] Last Admin: 05/22/22 00:32 Dose: 25 mcg Dextrose/Water (Dextrose 50% Syringe 50 Ml) 25 ml IVP PER PROTOCOL PRN; Protocol PRN Reason: Hypoglycemia Dextrose/Water (Dextrose 50% Syringe 50 Ml) 50 ml IVP PER PROTOCOL PRN; Protocol PRN Reason: Hypoglycemia Famotidine (Famotidine 20 Mg Tab) 20 mg PO DAILY [facility] Last Admin: 05/26/22 09:26 Dose: 20 mg Ferrous Sulfate (Ferrous Sulfate 325 Mg Tab) 325 mg PO BID@0800,1999 [facility] Last Admin: 05/26/22 21:28 Dose: 325 mg Fluoxetine HCl (Fluoxetine Hcl 20 Mg Cap) 20 mg PO DAILY [facility] Last Admin: 05/26/22 09:27 Dose: 20 mg Furosemide (Furosemide 80 Mg Tab) 80 mg PO DAILY [facility] Last Admin: 05/26/22 09:27 Dose: 80 mg Ceftriaxone Sodium 2 gm/ (Sodium Chloride) 50 mls @ 100 mls/hr IVPB Q24HR [facility]; Protocol Last Admin: 05/26/22 17:59 Dose: 100 mls/hr Insulin Aspart (Insulin Aspart (Novolog) 100 Unit/Ml Vial) 0 unit SQ [facility]; Protocol Last Admin: 05/26/22 21:30 Dose: 4 unit Insulin Detemir (Insulin Detemir (Levemir) 100 Unit/Ml Syr) 20 unit SQ [facility] Last Admin: 05/26/22 21:46 Dose: 20 unit Levothyroxine Sodium (Levothyroxine 25 Mcg Tab) 25 mcg PO HS@1999 [facility] Last Admin: 05/26/22 21:09 Dose: 25 mcg Melatonin (Melatonin 5 Mg Tablet) 5 mg PO HS@1999 [facility] Last Admin: 05/26/22 21:08 Dose: 5 mg Metoprolol Succinate (Metoprolol Succinate (Er) 50 Mg Tab.Er.24h) 50 mg PO DAILY [facility] Last Admin: 05/26/22 09:27 Dose: 50 mg Midodrine (Midodrine 5 Mg Tab) 10 mg PO AC-TID [facility] Last Admin: 05/26/22 18:00 Dose: 10 mg Miscellaneous Information (Potassium Replacement Protocol 1 Each Misc) 1 each MISCELLANE DAILY PRN; Protocol PRN Reason: Per Protocol Multivitamins (Multivitamins, Thera 1 Each Tab) 1 each PO DAILY [facility] Last Admin: 05/26/22 09:26 Dose: 1 each Naloxone HCl (Naloxone 0.4 Mg/Ml 1 Ml Vial) 0.2 mg IV Q2M PRN PRN Reason: Opioid Reversal Non-Formulary Medication (Norethindrone [Chani]) 0.35 mg PO DAILY [facility] Last Admin: 05/26/22 09:28 Dose: Not Given Ondansetron HCl (Ondansetron 4 Mg/2 Ml Vial) 4 mg IVP Q8HR PRN PRN Reason: Nausea And Vomiting Polyethylene Glycol (Polyethylene Glycol 3350 17 Gm Powd.Pack) 17 gm PO DAILY [facility] Last Admin: 05/26/22 09:28 Dose: 17 gm Senna/Docusate Sodium (Sennosides-Docusate Sodium 1 Each Tab) 2 each PO HS@1999 [facility] Last Admin: 05/26/22 21:09 Dose: 2 each Sodium Bicarbonate (Sodium Bicarbonate Tab 650 Mg Tab) 650 mg PO BID@ [facility] Last Admin: 05/26/22 21:08 Dose: 650 mg Past medical history to include: Stroke resulting in decreased memory (contracture, following, in 2014 following surgery, DVT, [place], gastric bypass in 2016, anxiety depression, muscle spasms, irregular menstrual bleeding, hypertension, hypothyroid chronic pain in the hands / back. Irregular vaginal bleeding-polycystic ovary syndrome. Multiple DVTs in the past. Following gastric bypass surgery patient had a stroke and myocardial infarction. Resulting in cognitive impairment. Hyperlipidemia, anxiety, hypertension, hypothyroid Social history: long-term resident of [facility], no smoking. Did smoke marijuana in high school. Pretty much bedbound. Has a legal guardian Chandrika Physical examination: VITAL SIGNS: 98, 104, 18, 102/68, 94% on room air GENERAL: Reclining in bed,, sleepy EYES: Pupils equal. Conjunctiva pale. HEENT: External appearance of nose and ears normal, oral cavity grossly normal. NECK: JVD unable to assess masses not palpable. HEART: Heart sounds are muffled; no edema. LUNGS: Respiratory rate normal; distant breath sounds. ABDOMEN: Soft, Right flank Tenderness / induration, liver spleen not palpable, no masses palpable. PSYCH: Sleepy Answering simple. Mood and affect normal. Forgetful NEUROLOGICAL: [Cranial nerves grossly intact; no facial asymmetry, contracture of the left hand. Right Foot drop INVESTIGATIONS, reviewed in the clinical context: May 26: WBC 10.9 hemoglobin 7.9 platelets 453 potassium 3.5. 67 creatinine 4.07 May 25: White count 13.8 hemoglobin 7.9 platelets 434 potassium 3.8 BUN 64 creatinine 3.94 May 24: White count 15.1 hemoglobin 8 platelets 386 potassium 3.9 BUN 62 creatinine 3.98 troponin I less than 0.012, TSH 1.6 cortisol 30 Blood cultures [May 21]. Staphylococcus hemolyticus. Staphylococcusschleiferi. Repeat blood cultures negative May 23: White count 13.3 hemoglobin 8.5 platelets 327 potassium 3.5. An 60 creatinine 3.9 to 05/22/2022: White count 14.8 hemoglobin 8.4 platelets 474, sodium 137 creatinine 3.49 UA: Leukoesterase large. WBC 182 nitrate negative Admission labs: White count 16.1 hemoglobin 6.7 platelets 577 sodium 135 potassium 3.6 BUN 57 creatinine 3.46 lactic acid 2.[address] abdomen pelvis without contrast: Right adrenal gland not identified. Gallbladder surgically absent. 8.2 cm mass within the expected region of the right kidney. This was previously an atrophic kidney. That was enlarged. Perinephric stranding. Soft tissue density in the posterior right flank is a level of this right kidney. Small amount of air is present in the region of the right kidney. Ecchymosis appears to extend to the flank to the thigh. Chest x-ray film personally reviewed by me-infiltrate versus edema possible. EKG tracing personally reviewed by me-heart rate 108. Sinus tachycardia Renal ultrasound: Masslike area within the lower pole of the kidney in the right. Circumferentially wall thickening of the sigmoid colon. Assessment plan: -Suspect infected hematoma right renal bed secondary to patient being on eliquis - atrophic kidney previously. This seems to track down to the thigh.: Slow to respond IV daptomycin changed to IV ceftriaxone.. Blood cultures as above . Follow with ID. repeat computed tomography scan noted.. IR to drain infected hematoma on Saturday -Sepsis, POA from infected hematoma -PEA cardiac arrest witnessed lasting about 3 minutes. Patient did receive 1 amp of epinephrine and CPR. Fluid bolus and levo fed. - discontinued -Combination of septic shock and hypovolemic shock from bleeding./Hematoma. Better Fluid resuscitation, IV levo fed-discontinued. IV antibiotics -Acute hypoxic respiratory failure from combination of obesity hypoventilation, questionable pneumonia. Initially placed on BiPAP now down to 2 L -Chronic hypoxic respiratory failure On 2 L of nasal cannula at baseline -Chronic medical debility, patient is not ambulatory -Anemia of chronic kidney disease Hemoglobin was 7.3 on February 2022 - obesity BMI 36.7 -Chronic left hand contracture, right foot drop -Chronic multiple DVTs eliquis 2.5 mg held -Hyperlipidemia Lipitor 20 mg daily at bedtime -Muscle spasm Baclofen 10 mg daily at bedtime -Essential hypertension Toprol-XL currently held because of low blood pressure -Hypothyroid Synthroid 25 g at bedtime -Diabetes mellitus type 2, chronic on insulin Levemir 20 mg daily at bedtime. Follow Accu-Cheks -Chronic pain in the left hand and lower back. Harrison 7.5 every 12 when necessary -Anxiety depression Klonopin 0.5 mg daily at bedtime Prozac 20 mg daily-outpatient -Bilateral nonobstructing renal calculi,-asymptomatic -Chronic kidney disease stage 4 from obstructive uropathy with a history of left ureteral stent. Creatinine 3.26 on 02/19/2022 -Chronic Right renal atrophy -Full code , IV daptomycin changed to cefazolin.. Change morning dose of Klonopin to when necessary. Has patient has been sleeping the morning.. Encourage oral intake. Follow labs
[2022-05-27] MEDS: DEXTROSE 5%-0.45% NACL 1,000 ML IV SCH ×3 (01:00→22:03)
[2022-05-27] MEDS: HYDROcodone/APAP 7.5-325MG 1 EACH TAB PO PRN ×3 (02:49→21:58)
[2022-05-27 07:44] LABS: Glucose,Whole Blood 240 mg/dL (70-110)
--- NOTE | 2022-05-27 08:18 | P.PN ---
Subjective Progress Note Date: 05/27/22 I'm seeing this patient in new consultation today 05/22/2022 in the intensive care unit after suspected cardiac arrest in the emergency room. Patient is a 37-year-old white female with multiple significant comorbidities including myocardial infarction, diabetes mellitus type 2, chronic kidney disease, hy pothyroidism, anemia, frequent urinary tract infections with ESBL producing E. coli, CVA, pancreatitis, cognitive delay, DVT, gastric bypass. Patient does have a public guardian is a poor historian. Patient did have a recent prolonged hospital admission in January, for acute hypoxic respiratory failure related to CHF exacerbation versus pneumonia. Patient was brought in yesterday afternoon for right flank pain. An abdominal and pelvis CT without contrast done yesterday showed an 8.2 cm mass within the region of the right kidney. The previously atrophic kidney was enlarged with perinephric stranding. There was soft tissue density subcutaneous and deep tissues the right flank at the level of enlarged kidney. There was small amount of air present within the region. Ecchymosis extended throughout the right flank to the thigh. Correlation for hematoma was recommended. While in the emergency room, the patient became unresponsive and a CODE BLUE was activated. The presenting rhythm was PEA. Patient was successfully resuscitated after 1 round of CPR and 1 amp of epinephrine with an estimated down time of 3 minutes. She did not require intubation. She was hypotensive and given 1 L normal saline bolus. She did require a norepinephrine infusion, currently running at 0.1 mics per kg per minute, through a right IJ triple-lumen central line catheter. Patient is currently resting comfortably on 4 L nasal cannula, in no acute distress. Patient is oxygenating at near 100%. Post resuscitation chest x-ray showed no acute cardiopulmonary process. The patient's right flank area has extensive soft tissue edema, no obvious bruising or ecchymosis. The area is tender to palpat ion. A follow-up CBC showed a hemoglobin of 6.7, hematocrit 22.8, WBC 16, platelets 577,000. The patient was transfused 1 unit PRBC. Patient's BMP shows sodium 135, potassium 3.6, chloride 104, serum CO2 19, P1 57, creatinine chronically elevated at 3.46, glucose 137. Patient's lactic acid level was elevated at 2.9. Patient did receive a dose of Rocephin. She has been intermittently febrile with a T-max of 100.3F. Troponin was negative 1. NT proBNP was mildly elevated at 1720. Vital signs are stable. Patient is in the intensive care unit for closer monitoring. The patient is seen today 05/23/2022 in follow-up in the intensive care unit. She is currently awake and alert. Resting fairly comfortably in bed. She is maintaining O2 saturations up to 100% on 4 L/m per nasal cannula. No IV fluids currently. She has received 1 unit of packed red blood cells this admission. Current hemoglobin 8.5. Platelets 387. White count 13.3. Sodium 133. Potassium 3.5. Bicarb 19. BUN 60. Creatinine 3.92. Glucose 187. Urine positive for moderate bacteria and many white blood cells. Blood cultures positive for coag-negative staph. Urine culture pending. She is currently on daptomycin and Zosyn. ID service is on the case. She has been seen by urology regarding the right flank mass. Definitive diagnosis would require a CT-guided biopsy/aspiration. They feel they hemoglobin drops in the size of the per P nephrectomy mass increases it would be consistent for enlarging hematoma and may need transfer to a tertiary care center for right renal arterial embolization. The patient is seen today 05/24/2022 in follow-up in the intensive care unit. She is currently resting fairly comfortably in bed. Awake and alert. She was transferred out of the ICU yesterday but brought back to the ICU early this morning for hypotension. She is maintaining good O2 saturations in the 90s on 2 L/m per nasal cannula. She has normal saline at KVO. TSH and cortisol levels were within normal limits. Metoprolol is placed on hold. Patient did not require norepinephrine thus far. Initial blood cultures positive for coag- negative staph follow-up blood cultures revealing no growth. Urine culture no growth. White count 15.1. Hemoglobin 8.0. Platelets 386. Sodium 136. Potassium 3.9. Bicarb 18. BUN 62. Creatinine 3.9. TSH 1.68. Cortisol level 30. She remains on Zosyn and daptomycin currently. The patient is seen today 05/25/2022 in follow-up in the intensive care unit. She is currently awake and alert in no acute distress. Continue O2 saturations up to 100% on 3 L/m nasal cannula. Currently down to 2 L. She is denying any worsening shortness of breath, cough or congestion. She is asking to go home. Computed tomography scan of the abdomen reveals a right renal mass with perinephric soft tissue component as well as soft tissue in the right subcutaneous flank region. The findings could be posttraumatic in the appropriate clinical setting and reflect renal edema with perinephric and subcutaneous hematoma versus infiltrative mass such as sarcoma renal cell carcinoma is not excluded. She is status post 1 unit of packed red blood cells this admission. Follow-up blood cultures reveal no growth. Urine culture revealed no growth. White count 13.8. He was 7.9. Platelets 434. Sodium 138. Potassium 3.8. Bicarb 18. BUN 64. Creatinine 3.94. Glucose 89. She is continued on daptomycin. Oral diuretics. Sodium bicarb tablets. The patient is seen today 05/26/2022 in follow-up on the regular medical floor. She is currently resting comfortably in bed. Awake and alert in no acute distress. Maintaining good O2 saturations in the 90s on room air. She is status post 1 unit of packed red blood cells this admission. Yesterday's hemoglobin was 7.9. Today's hemoglobin is pending. Blood cultures are positive for staph schleiferi SS, Staphylococcus hemolyticus from 05/21/2022. Blood culture from 05/23/2022 revealed no growth. Urine culture revealed no growth. Blood glucose 108. She is currently on daptomycin. The patient is seen today 05/27/2022 in follow-up on the regular medical floor. She is currently resting comfortably in bed. Awake and alert in no acute distress. Continues to maintain O2 saturations in the 90s on room air. She's afebrile. Hemodynamically stable. She is now thinking that she did take a fall while at current medical [place]. Hurting her back. The plan is for follow-up computed tomography scan to evaluate the right kidney mass versus hematoma in 4- 6 weeks. Hemoglobin has remained stable at 7.9. Today's labs are pending. Follow-up blood cultures are revealing no growth. She remains on ceftriaxone per ID services. Continued on sodium bicarb tablets. Most recent bicarb 17. BUN 67. Creatinine 4.07. Blood sugar 101. Objective - Vital Signs Vital signs: Vital Signs Temp 97.5 F L 05/27/22 07:49 Pulse 90 05/27/22 07:49 Resp 18 05/27/22 07:49 BP 97/59 05/27/22 07:49 Pulse Ox 100 05/27/22 07:49 FiO2 Intake & Output 05/26/22 05/27/22 05/27/22 18:59 06:59 18:59 Output Total 750 1 Balance -750 -1 Output: Urine 750 Stool 1 Other: Voiding Method Incontinent Incontinent External Catheter External Catheter # Bowel Movements 1 - Exam GENERAL EXAM: Alert, pale, pleasant, cooperative 37-year-old female, on room air, comfortable in no apparent distress. HEAD: Normocephalic and atraumatic EYES: Normal reaction of pupils, equal size. NOSE: Clear with pink turbinates. THROAT: No erythema or exudates. NECK: No masses, no JVD. CHEST: No chest wall deformity. LUNGS: Equal air entry with no crackles, wheeze, rhonchi or dullness. No conversational dyspnea or accessory muscle use. CVS: S1 and S2 normal with no audible murmur, regular rhythm. No extra heart sounds ABDOMEN: No hepatosplenomegaly, active bowel sounds, no guarding or rigidity. SPINE: No scoliosis or deformity SKIN: No rashes. There is extensive soft tissue swelling on the right flank area. No bruising or ecchymosis. CENTRAL NERVOUS SYSTEM: No focal deficits, tone is normal in all 4 extremities. EXTREMITIES: There is mild bilateral nonpitting edema of the lower extremities. No clubbing, or cyanosis. Peripheral pulses are intact. - Labs CBC & Chem 7: 05/26/22 08:45 05/26/22 08:45 Labs: Abnormal Lab Results - Last 24 Hours (Table) 05/26/22 05/26/22 05/26/22 Range/Units 08:45 08:45 17:13 WBC 10.9 H (3.8-10.6) k/uL RBC 3.13 L (3.80-5.40) m/uL Hgb 7.9 L (11.4-16.0) gm/dL Hct 27.1 L (34.0-46.0) % MCHC 29.4 L (31.0-37.0) g/dL RDW 18.6 H (11.5-15.5) % Plt Count 453 H (150-450) k/uL Neutrophils # 9.2 H (1.3-7.7) k/uL Chloride 108 H (98-107) mmol/L Carbon Dioxide 17 L (22-30) mmol/L BUN 67 H (7-17) mg/dL Creatinine 4.07 H (0.52-1.04) mg/dL Glucose 101 H (74-99) mg/dL POC Glucose (mg/dL) 206 H (70-110) mg/dL 05/26/22 05/27/22 Range/Units 20:45 07:42 WBC (3.8-10.6) k/uL RBC (3.80-5.40) m/uL Hgb (11.4-16.0) gm/dL Hct (34.0-46.0) % MCHC (31.0-37.0) g/dL RDW (11.5-15.5) % Plt Count (150-450) k/uL Neutrophils # (1.3-7.7) k/uL Chloride (98-107) mmol/L Carbon Dioxide (22-30) mmol/L BUN (7-17) mg/dL Creatinine (0.52-1.04) mg/dL Glucose (74-99) mg/dL POC Glucose (mg/dL) 224 H 240 H (70-110) mg/dL Microbiology - Last 24 Hours (Table) 05/23/22 05:57 Blood Culture Gram Stain - Preliminary Blood Assessment and Plan Assessment: PEA cardiac arrest witnessed with an estimated 3 minute downtime. Patient did receive CPR and 1 amp of epinephrine. Hypotension was treated with 1 L normal saline bolus, and started on a norepinephrine infusion. The patient had recovered and was off norepinephrine. Transferred out of the intensive care unit on 05/23/2022. 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 Did not require any norepinephrine at this point. Add midodrine 10 mg 3 times a day. Hold metoprolol. Cortisol level 30. TSH normal. Now seen on the regular medical floor. Hemodynamically stable. Right flank pain currently under investigation. An abdominal and pelvis CT without contrast showed an 8.2 cm mass within the expected region of the right kidney. There was an enlarged right kidney with perinephric stranding. There was soft tissue density in the subcutaneous and did tissues the right flank at the level of the enlarged kidney. Small amount of air was present within this region. Ecchymosis appeared to extend through the flank to the thigh. Hematoma versus developing abscess are within the differential. Patient's anticoagulants currently on hold. Follow-up computed tomography scan from 05/24/2022 revealed a right renal mass with perinephric soft tissue component as well as soft tissue in the right subcutaneous flank region. The findings could be posttraumatic in the appropriate clinical setting and reflect renal edema with perinephric and subcutaneous hematoma versus infiltrative mass such as sarcoma renal cell carcinoma is not excluded. Lactic acidosis secondary to above Anemia with a hemoglobin of 6.7 gm/dl status post transfusion of 1 unit PRBC. Current hemoglobin 7.9. Patient does have baseline anemia of chronic disease. Acute on chronic kidney disease creatinine is currently 4.07. Diabetes mellitus type 2 Hypothyroidism History of CVA History of cognitive delay and memory impairment History of gastric bypass Plan: The patient was seen and evaluated Medications and labs reviewed Blood pressure remains stable Continue midodrine Last hemoglobin stable at 7.9 Today's hemoglobin is pending Plan is for follow-up CT in 4-6 weeks per urology Plan is for discharge back to [facility] I have personally seen and examined the patient, performed the documentation and the assessment and plan as written. Number of minutes spent on the visit: 10.
[2022-05-27 08:52] LABS: Anisocytosis Slight; Basophils % (A) 0 %; Eosinophils # (A) 0.2 k/uL (0-0.7); Eosinophils % (A) 2 %; HCT 26.9 % (34.0-46.0); HGB 7.7 gm/dL (11.4-16.0); Hypochromasia Marked; Lymphocytes # (A) 0.8 k/uL (1.0-4.8); Lymphocytes % (A) 12 %; MCH 25.6 pg (25.0-35.0); MCHC 28.7 g/dL (31.0-37.0); MCV 89.1 fL (80.0-100.0); Mean Platelet Volume 7.6; Monocytes # (A) 0.3 k/uL (0-1.0); Monocytes % (A) 4 %; Neutrophils # (A) 5.7 k/uL (1.3-7.7); Neutrophils % (A) 79 %; Platelet Count 382 k/uL (150-450); Poikilocytosis Moderate; RBC 3.03 m/uL (3.80-5.40); RDW 18.7 % (11.5-15.5); WBC 7.2 k/uL (3.8-10.6)
[2022-05-27 09:07] LABS: ALT 15 U/L (4-34); AST 19 U/L (14-36); African American GFR (CKD) 16 (>60 ml/min/1.73 sqM); Albumin 2.3 g/dL (3.5-5.0); Albumin/Globulin Ratio 0.6; Alkaline Phosphatase 130 U/L (38-126); Anion Gap 16 mmol/L; Blood Urea Nitrogen 67 mg/dL (7-17); Calcium 8.7 mg/dL (8.4-10.2); Carbon Dioxide 13 mmol/L (22-30); Chloride 108 mmol/L (98-107); Globulin 4.1 g/dL; Glucose 193 mg/dL (74-99); Non-African American GFR(CKD) 14 (>60 ml/min/1.73 sqM); Potassium 3.9 mmol/L (3.5-5.1); Sodium 137 mmol/L (137-145); Total Bilirubin 0.2 mg/dL (0.2-1.3); Total Protein 6.4 g/dL (6.3-8.2)
[2022-05-27] MEDS: MIDODRINE 5 MG TAB PO SCH ×3 (09:19→18:00)
[2022-05-27] MEDS: INSULIN ASPART (NovoLOG) 100 UNIT/ML VIAL SQ SCH ×4 (09:19→22:04)
[2022-05-27] MEDS: FLUoxetine HCL 20 MG CAP PO SCH (09:20)
[2022-05-27] MEDS: METOPROLOL SUCCINATE (ER) 50 MG TAB.ER.24H PO SCH (09:20)
[2022-05-27] MEDS: MULTIVITAMINS, THERA 1 EACH TAB PO SCH (09:20)
[2022-05-27] MEDS: CHOLECALCIFEROL 25 MCG (1000 IU) TABLET PO SCH (09:20)
[2022-05-27] MEDS: FAMOTIDINE 20 MG TAB PO SCH (09:20)
[2022-05-27] MEDS: polyethylene glycoL 3350 17 GM POWD.PACK PO SCH (09:20)
[2022-05-27] MEDS: FERROUS SULFATE 325 MG TAB PO SCH ×3 (09:20→22:08)
[2022-05-27] MEDS: SODIUM BICARBONATE TAB 650 MG TAB PO SCH ×2 (09:20→22:02)
[2022-05-27] MEDS: FUROSEMIDE 80 MG TAB PO SCH (09:20)
[2022-05-27] MEDS: NON FORMULARY DRUG (Norethindrone [Camila] 0.35 MG Tablet) PO SCH (09:21)
--- NOTE | 2022-05-27 10:06 | P.PN ---
Subjective Progress Note Date: 05/27/22 Principal diagnosis: Right renal mass, probable hematoma The patient is a 37-year-old female with a history of CVA, DVT, TX, diabetes mellitus, anemia, pancreatitis, atrophic right kidney, recurrent UTIs with ESBL, and kidney stones requiring surgical intervention. The patient also has a history of renal failure due to an obstructed stent. On 05/21/22 she presented to the emergency department for an abscess on her back, that she believes has been present for a couple days. She is bedbound at home and describes the abscess area to be very painful. She denies any fever, chills, chest pain, abdominal pain, nausea, vomiting, headaches. However, the patient is a poor historian and has memory impairment after suffering her stroke and has a public guardian. An abdominal and pelvis CT without contrast done yesterday showed an 8.2 cm mass within the region of the right kidney. The previously atrophic kidney was enlarged with perinephric stranding. There was soft tissue density subcutaneous and deep tissues the right flank at the level of enlarged kidney. There was small amount of air present within the region. Ecchymosis extended throughout the right flank to the thigh. Correlation for hematoma was recommended. While in the emergency room, the patient became unresponsive and a CODE BLUE was activated. The presenting rhythm was PEA. Patient was successfully resuscitated after 1 round of CPR and 1 amp of epinephrine with an estimated down time of 3 minutes. She did not require intubation. CXR showed no acute cardiopulmonary process. A follow-up CBC showed a hemoglobin of 6.7, hematocrit 22.8, WBC 16, platelets 57. The patient was transfused 1 unit PRBC. Serum creatinine 3.86 upon admission. 05/23 The hemoglobin level this morning was 8.5, up from 8.4 yesterday. She remains tachycardic. I suspect that the CT scan findings represent a right perinephric hematoma. Urine culture shows mixed genital kelli. Blood cultures showed coagulase-negative staph, the significance of which is unclear. Definitive diagnosis would require CT-guided biopsy/aspiration. If the hemoglobin level drops and the size of the perinephric mass increases, this would be consistent with an enlarging hematoma in which case I would recommend referral to a tertiary care center for right renal arterial embolization. 05/24 The hemoglobin level this morning was 8.0, down from 8.5 yesterday. She remains tachycardic. I suspect that the CT scan findings represent a right perinephric hematoma. 05/25 The hemoglobin level this morning was 7.9, which is stable. 05/26 The hemoglobin level is stable at 7.9. Patient is symptomatically unchanged. Objective - Vital Signs Vital signs: Vital Signs Temp 97.5 F L 05/27/22 07:49 Pulse 90 05/27/22 07:49 Resp 18 05/27/22 07:49 BP 97/59 05/27/22 07:49 Pulse Ox 100 05/27/22 07:49 FiO2 Intake & Output 05/26/22 05/27/22 05/27/22 18:59 06:59 18:59 Output Total 750 1 Balance -750 -1 Output: Urine 750 Stool 1 Other: Voiding Method Incontinent Incontinent External Catheter External Catheter # Bowel Movements 1 - Exam General: Well developed, well nourished. No acute distress. HEENT: Head is atraumatic, normocephalic. Lungs: Respirations even and nonlabored. On 3L NC. Abdomen/GI: Soft, obese, non-distended. Skin: Warm and dry Neurologic: Memory impairment, CN II-XII grossly intact. Psychiatric: Normal affect and mood - Labs CBC & Chem 7: 05/27/22 07:41 05/27/22 07:41 Labs: Abnormal Lab Results - Last 24 Hours (Table) 05/26/22 05/26/22 05/27/22 Range/Units 17:13 20:45 07:41 RBC 3.03 L (3.80-5.40) m/uL Hgb 7.7 L (11.4-16.0) gm/dL Hct 26.9 L (34.0-46.0) % MCHC 28.7 L (31.0-37.0) g/dL RDW 18.7 H (11.5-15.5) % Lymphocytes # 0.8 L (1.0-4.8) k/uL Chloride (98-107) mmol/L Carbon Dioxide (22-30) mmol/L BUN (7-17) mg/dL Creatinine (0.52-1.04) mg/dL Glucose (74-99) mg/dL POC Glucose (mg/dL) 206 H 224 H (70-110) mg/dL Alkaline Phosphatase (38-126) U/L C-Reactive Protein (<1.0) mg/dL Albumin (3.5-5.0) g/dL 05/27/22 05/27/22 Range/Units 07:41 07:42 RBC (3.80-5.40) m/uL Hgb (11.4-16.0) gm/dL Hct (34.0-46.0) % MCHC (31.0-37.0) g/dL RDW (11.5-15.5) % Lymphocytes # (1.0-4.8) k/uL Chloride 108 H (98-107) mmol/L Carbon Dioxide 13 L (22-30) mmol/L BUN 67 H (7-17) mg/dL Creatinine 3.90 H (0.52-1.04) mg/dL Glucose 193 H (74-99) mg/dL POC Glucose (mg/dL) 240 H (70-110) mg/dL Alkaline Phosphatase 130 H (38-126) U/L C-Reactive Protein 16.0 H (<1.0) mg/dL Albumin 2.3 L (3.5-5.0) g/dL Microbiology - Last 24 Hours (Table) 05/23/22 05:57 Blood Culture Gram Stain - Preliminary Blood Assessment and Plan Assessment: Hemoglobin today stable at 7.7. She remains tachycardic but is clinically stable. (1) Right flank mass Current Visit: Yes Status: Acute Code(s): R19.00 - INTRA-ABD AND PELVIC SWELLING, MASS AND LUMP, UNSP SITE SNOMED Code(s): 085851400 Plan: - ID intends to order aspiration of the right perinephric fluid collection. This will help to determine whether this is tumor, hematoma, or abscess. Will await those findings.
[2022-05-27 11:33] LABS: Glucose,Whole Blood 105 mg/dL (70-110)
--- NOTE | 2022-05-27 17:03 | P.PN ---
Subjective Progress Note Date: 05/27/22 Principal diagnosis: Right flank abscess/hematoma and bacteremia Patient is a 37-year-old female with a past medical history significant for CVA TIA DVT morbid obesity history of recurrent UTI patient presenting to the ER with concern for right flank pain, patient did have abnormal CT concerning for increasing mass to the right kidney area and the patient also have a cardiac arrest on the floor requiring transfer to the ICU blood cultures with coagulase negative staph On today's evaluation of that is 05/27/2022, the patient continues to be afebrile, the patient is is breathing comfortably on room air, the patient denies any chest pain shortness of breath or cough, no abdominal pain and vomiting or diarrhea has been reported Objective - Vital Signs Vital signs: Vital Signs Temp 97.5 F L 05/27/22 07:49 Pulse 90 05/27/22 07:49 Resp 18 05/27/22 07:49 BP 97/59 05/27/22 07:49 Pulse Ox 100 05/27/22 07:49 FiO2 Intake & Output 05/26/22 05/27/22 05/27/22 18:59 06:59 18:59 Output Total 750 1 Balance -750 -1 Output: Urine 750 Stool 1 Other: Voiding Method Incontinent Incontinent Incontinent External Catheter External Catheter External Catheter # Bowel Movements 1 - Exam GENERAL DESCRIPTION: A middle-aged female lying in bed in no distress RESPIRATORY SYSTEM: Unlabored breathing , decreased breath sounds at bases HEART: S1 S2 regular rate and rhythm , ABDOMEN: Soft , no tenderness , patient noticed to have significant purulent drainage from the right side of the back - Labs CBC & Chem 7: 05/27/22 07:41 05/27/22 07:41 Labs: Abnormal Lab Results - Last 24 Hours (Table) 05/26/22 05/26/22 05/27/22 Range/Units 17:13 20:45 07:41 RBC 3.03 L (3.80-5.40) m/uL Hgb 7.7 L (11.4-16.0) gm/dL Hct 26.9 L (34.0-46.0) % MCHC 28.7 L (31.0-37.0) g/dL RDW 18.7 H (11.5-15.5) % Lymphocytes # 0.8 L (1.0-4.8) k/uL Chloride (98-107) mmol/L Carbon Dioxide (22-30) mmol/L BUN (7-17) mg/dL Creatinine (0.52-1.04) mg/dL Glucose (74-99) mg/dL POC Glucose (mg/dL) 206 H 224 H (70-110) mg/dL Alkaline Phosphatase (38-126) U/L C-Reactive Protein (<1.0) mg/dL Albumin (3.5-5.0) g/dL 05/27/22 05/27/22 Range/Units 07:41 07:42 RBC (3.80-5.40) m/uL Hgb (11.4-16.0) gm/dL Hct (34.0-46.0) % MCHC (31.0-37.0) g/dL RDW (11.5-15.5) % Lymphocytes # (1.0-4.8) k/uL Chloride 108 H (98-107) mmol/L Carbon Dioxide 13 L (22-30) mmol/L BUN 67 H (7-17) mg/dL Creatinine 3.90 H (0.52-1.04) mg/dL Glucose 193 H (74-99) mg/dL POC Glucose (mg/dL) 240 H (70-110) mg/dL Alkaline Phosphatase 130 H (38-126) U/L C-Reactive Protein 16.0 H (<1.0) mg/dL Albumin 2.3 L (3.5-5.0) g/dL Microbiology - Last 24 Hours (Table) 05/23/22 05:57 Blood Culture Gram Stain - Final Blood Blood Culture - Final Coagulase Negative Staph Assessment and Plan (1) Positive blood culture Current Visit: Yes Status: Acute Code(s): R78.81 - BACTEREMIA SNOMED Code(s): 847059203 (2) Abscess of flank Current Visit: Yes Status: Acute Code(s): L02.211 - CUTANEOUS ABSCESS OF ABDOMINAL WALL SNOMED Code(s): 87554479 Plan: 1patient presented to the hospital with sepsis in this patient who did have a fever elevated white count has been complaining of flank pain with evidence of possible renal abscess/pyelonephritis likely from enteric gram-negative pathogen. Patient also have a positive blood culture with staph epi has been finalized with staphylococcus hemolyticus, repeat CT did not show any worsening however keeping in mind the persistent bacteremia slightly concerning and could be representing abscess blood cultures will be repeated document clearance of bacteremia 2-patient did have spontaneous drainage of this infected hematoma and will benefit from open drainage discussed with the admitting team as well as patient urologist 3-patient continue Rocephin and monitor clinical course closely Time with Patient: Less than 30
[2022-05-27 17:39] LABS: Glucose,Whole Blood 211 mg/dL (70-110)
[2022-05-27 20:17] LABS: Glucose,Whole Blood 192 mg/dL (70-110)
[2022-05-27] MEDS: BACLOFEN 10 MG TAB PO SCH (21:59)
[2022-05-27] MEDS: clonazePAM 0.5 MG TAB PO SCH (22:00)
[2022-05-27] MEDS: LEVOTHYROXINE 25 MCG TAB PO SCH (22:01)
[2022-05-27] MEDS: ATORVASTATIN 20 MG TAB PO SCH (22:01)
[2022-05-27] MEDS: MELATONIN 5 MG TABLET PO SCH (22:02)
[2022-05-27] MEDS: SENNOSIDES-DOCUSATE SODIUM 1 EACH TAB PO SCH (22:04)
[2022-05-27] MEDS: INSULIN DETEMIR (LEVEMIR) 100 UNIT/ML SYR SQ SCH (22:04)
--- NOTE | 2022-05-27 22:56 | P.PN ---
Progress Note - Text Progress Note Date: 05/27/22 Chief Complaint: Right flank pain 37-year-old female with a known history of CVA with right-sided weakness, cognitive impairment, history of gastric bypass surgery, history of DVT on eliquis. oxygen at 2 L via nasal cannula since her COVID infection. CKD with baseline creatinine level around 3.0. resident of [facility], [facility] - long-term resident. known history of irregular vaginal bleeding - polycystic ovarian syndrome.. multiple DVTs in the past. Following gastric bypass surgery patient had a stroke and myocardial infarction. - resulted in cognitive impairment. poor short-term memory. - bedbound. contracture of the left hand and foot drop on the right leg. history of hyperlipidemia anxiety hypertension hypothyroid diabetes. Patient has a legal guardian Chandrika Special note: Patient always request more pain medications. But if explained she that this leads to her mental status changing and she is finding the same. This should be kept in mind when she asked for pain medications repeatedly. Will need to be given when she is uncomfortable. Once explained she becomes rather comfortable. Presented to the ER right flank pain and fever. For 2 days. Did have ecchymosis along the right flank. Hemoglobin was noted to be 6.7 did receive 1 unit of blood. In the ER patient had a cardiac arrest felt to be PEA as he suddenly became unresponsive. He received chest compression and spontaneous r eturn of circulation. And moved to the ICU. Has baseline memory impairment. Patient is started on ceftriaxone in the ER. Patient was then put on levo fed drip. Patient overnight was on BiPAP. This morning down to 2 L. 05/23/2022: Patient was seen this morning the ICU. Decreased in ecchymosis on the right flank. Indurated area. Tender. For pain to use K pad. Discussed with the nurse. Explained to the patient about pain. IV daptomycin. Per urology if further decrease in hemoglobin and enlarging right renal fossa that would require renal artery embolization at a tertiary center. Positive blood culture likely contaminant. Had some lunch 05/24/2022: ICU. Laying in bed. 2 L nasal cannula. Eating fair. Patient wanted stronger pain medications. K pad. She can have a home dose of [place] [employer]. Explained. Discussed with ID-the procedures repeat computed tomography scan to look at the size of the hematoma. On IV daptomycin. Zosyn has been discontinued. Patient was transferred to medical floor yesterday. So now after vacation became less responsive became hypotensive. Brought back to the ICU. With fluid bolus the blood pressure came back up. May 25: Patient moved to the medical floor. Has been refusing to eat. IV daptomycin. May 26: Patient not eating this morning again. Spoke to the nurse to encourage the patient to eat. Done on the lights and opened the drapes Patient is sleepy. We'll make the morning dose of Klonopin when necessary. Discussed with patient. Much improved pain in the right flank. ID is ordered IR to drain the possible infected hematoma on Saturday. Antibiotics being changed to Rocephin 2 g daily May 27: Patient started draining pus from the right flank area. It is felt that infected hematoma, has come through. Discussed with ID. He contacted Dr. brar for possible further drainage. Await further input. Afebrile. IV ceftriaxone Active Medications Acetaminophen (Acetaminophen Tab 325 Mg Tab) 650 mg PO Q6HR PRN PRN Reason: Mild Pain or Fever > 100.5 Last Admin: 05/25/22 09:54 Dose: 650 mg Hydrocodone Bitart/Acetaminophen (Hydrocodone/Apap 7.5-325mg 1 Each Tab) 1 each PO Q8H PRN PRN Reason: Pain Last Admin: 05/27/22 13:49 Dose: 1 each Atorvastatin Calcium (Atorvastatin 20 Mg Tab) 20 mg PO HS@1999 [facility] Last Admin: 05/26/22 21:09 Dose: 20 mg Baclofen (Baclofen 10 Mg Tab) 10 mg PO HS@1999 [facility] Last Admin: 05/26/22 21:09 Dose: 10 mg Cholecalciferol (Cholecalciferol 25 Mcg (1000 Iu) Tablet) 75 mcg PO DAILY [facility] Last Admin: 05/27/22 09:20 Dose: 75 mcg Clomipramine HCl (Clomipramine 50 Mg Cap) 50 mg PO HS@1999 [facility] Last Admin: 05/26/22 21:28 Dose: 50 mg Clonazepam (Clonazepam 0.5 Mg Tab) 0.25 mg PO [facility] Clonazepam (Clonazepam 0.5 Mg Tab) 0.25 mg PO DAILY PRN PRN Reason: Anxiety Darbepoetin Kurtis (Darbepoetin Kurtis 25 Mcg/0.42 Ml Syringe) 25 mcg SQ MO@2200 [facility] Last Admin: 05/22/22 00:32 Dose: 25 mcg Dextrose/Water (Dextrose 50% Syringe 50 Ml) 25 ml IVP PER PROTOCOL PRN; Protocol PRN Reason: Hypoglycemia Dextrose/Water (Dextrose 50% Syringe 50 Ml) 50 ml IVP PER PROTOCOL PRN; Protocol PRN Reason: Hypoglycemia Famotidine (Famotidine 20 Mg Tab) 20 mg PO DAILY [facility] Last Admin: 05/27/22 09:20 Dose: 20 mg Ferrous Sulfate (Ferrous Sulfate 325 Mg Tab) 325 mg PO BID@799,1999 [facility] Last Admin: 05/27/22 09:20 Dose: 325 mg Fluoxetine HCl (Fluoxetine Hcl 20 Mg Cap) 20 mg PO DAILY [facility] Last Admin: 05/27/22 09:20 Dose: 20 mg Furosemide (Furosemide 80 Mg Tab) 80 mg PO DAILY [facility] Last Admin: 05/27/22 09:20 Dose: 80 mg Ceftriaxone Sodium 2 gm/ (Sodium Chloride) 50 mls @ 100 mls/hr IVPB Q24HR [facility]; Protocol Last Admin: 05/27/22 09:20 Dose: 100 mls/hr Dextrose/Sodium Chloride (Dextrose 5%-1/2ns Iv Soln) 1,000 mls @ 100 mls/hr IV .Q10H [facility] Last Admin: 05/27/22 11:12 Dose: 100 mls/hr Insulin Aspart (Insulin Aspart (Novolog) 100 Unit/Ml Vial) 0 unit SQ [facility]; Protocol Last Admin: 05/27/22 12:29 Dose: Not Given Insulin Detemir (Insulin Detemir (Levemir) 100 Unit/Ml Syr) 20 unit SQ [facility] Last Admin: 05/26/22 21:46 Dose: 20 unit Levothyroxine Sodium (Levothyroxine 25 Mcg Tab) 25 mcg PO HS@1999 [facility] Last Admin: 05/26/22 21:09 Dose: 25 mcg Melatonin (Melatonin 5 Mg Tablet) 5 mg PO HS@1999 [facility] Last Admin: 05/26/22 21:08 Dose: 5 mg Metoprolol Succinate (Metoprolol Succinate (Er) 50 Mg Tab.Er.24h) 50 mg PO DAILY [facility] Last Admin: 05/27/22 09:20 Dose: 50 mg Midodrine (Midodrine 5 Mg Tab) 10 mg PO AC-TID [facility] Last Admin: 05/27/22 13:12 Dose: 10 mg Miscellaneous Information (Potassium Replacement Protocol 1 Each Misc) 1 each MISCELLANE DAILY PRN; Protocol PRN Reason: Per Protocol Multivitamins (Multivitamins, Thera 1 Each Tab) 1 each PO DAILY [facility] Last Admin: 05/27/22 09:20 Dose: 1 each Naloxone HCl (Naloxone 0.4 Mg/Ml 1 Ml Vial) 0.2 mg IV Q2M PRN PRN Reason: Opioid Reversal Non-Formulary Medication (Norethindrone [Chani]) 0.35 mg PO DAILY [facility] Last Admin: 05/27/22 09:21 Dose: Not Given Ondansetron HCl (Ondansetron 4 Mg/2 Ml Vial) 4 mg IVP Q8HR PRN PRN Reason: Nausea And Vomiting Polyethylene Glycol (Polyethylene Glycol 3350 17 Gm Powd.Pack) 17 gm PO DAILY [facility] Last Admin: 05/27/22 09:20 Dose: 17 gm Senna/Docusate Sodium (Sennosides-Docusate Sodium 1 Each Tab) 2 each PO HS@1999 [facility] Last Admin: 05/26/22 21:09 Dose: 2 each Sodium Bicarbonate (Sodium Bicarbonate Tab 650 Mg Tab) 650 mg PO BID@0800,1999 [facility] Last Admin: 05/27/22 09:20 Dose: 650 mg Past medical history to include: Stroke resulting in decreased memory (contracture, following, in 2015 following surgery, DVT, CT, gastric bypass in 2016, anxiety depression, muscle spasms, irregular menstrual bleeding, hypertension, hypothyroid chronic pain in the hands / back. Irregular vaginal bleeding-polycystic ovary syndrome. Multiple DVTs in the past. Following gastric bypass surgery patient had a stroke and myocardial infarction. Resulting in cognitive impairment. Hyperlipidemia, an xiety, hypertension, hypothyroid Social history: long-term resident of [facility] on, no smoking. Did smoke marijuana in high school. Pretty much bedbound. Has a legal guardian Chandrika Physical examination: VITAL SIGNS: 97.7, 115, 18, 108/66, 98% on 2 L GENERAL: Reclining in bed,, tired EYES: Pupils equal. Conjunctiva pale. HEENT: External appearance of nose and ears normal, oral cavity grossly normal. NECK: JVD unable to assess masses not palpable. HEART: Heart sounds are muffled; no edema. LUNGS: Respiratory rate normal; distant breath sounds. ABDOMEN: Soft, Right flank abscess drainage, liver spleen not palpable, no masses palpable. PSYCH: Sleepy Answering simple. Mood and affect normal. Forgetful NEUROLOGICAL: [Cranial nerves grossly intact; no facial asymmetry, contracture of the left hand. Right Foot drop INVESTIGATIONS, reviewed in the clinical context: May 27: White count 7.2 hemoglobin 7.7 potassium 3.9 creatinine 3.9 May 26: WBC 10.9 hemoglobin 7.9 platelets 453 potassium 3.5. 67 creatinine 4.07 May 25: White count 13.8 hemoglobin 7.9 platelets 434 potassium 3.8 BUN 64 creatinine 3.94 May 24: White count 15.1 hemoglobin 8 platelets 386 potassium 3.9 BUN 62 creatinine 3.98 troponin I less than 0.012, TSH 1.6 cortisol 30 Blood cultures [May 21]. Staphylococcus hemolyticus. Staphylococcusschleiferi. Repeat blood cultures negative May 23: White count 13.3 hemoglobin 8.5 platelets 327 potassium 3.5. An 60 creatinine 3.9 to 05/22/2022: White count 14.8 hemoglobin 8.4 platelets 474, sodium 137 creatinine 3.49 UA: Leukoesterase large. WBC 182 nitrate negative Admission labs: White count 16.1 hemoglobin 6.7 platelets 577 sodium 135 potassium 3.6 BUN 57 creatinine 3.46 lactic acid 2.[address] abdomen pelvis without contrast: Right adrenal gland not identified. Gallbladder surgically absent. 8.2 cm mass within the expected region of the right kidney. This was previously an atrophic kidney. That was enlarged. Perinephric stranding. Soft tissue density in the posterior right flank is a level of this right kidney. Small amount of air is present in the region of the right kidney. Ecchymosis appears to extend to the flank to the thigh. Chest x-ray film personally reviewed by me-infiltrate versus edema possible. EKG tracing personally reviewed by me-heart rate 108. Sinus tachycardia Renal ultrasound: Masslike area within the lower pole of the kidney in the right. Circumferentially wall thickening of the sigmoid colon. Assessment plan: -Infected hematoma at right renal bed secondary to patient being on eliquis - atrophic kidney previously. This seems to track down to the thigh.: Has opened outwardly draining. IV ceftriaxone.. Blood cultures Staphylococcus hemolytic this.. Follow with ID.. Patient will need open drainage. Follow with urology. -Sepsis, POA from infected hematoma -PEA cardiac arrest witnessed lasting about 3 minutes. Patient did receive 1 amp of epinephrine and CPR. Fluid bolus and levo fed. - discontinued -Combination of septic shock and hypovolemic shock from bleeding./Hematoma. Better Fluid resuscitation, IV levo fed-discontinued. IV antibiotics -Acute hypoxic respiratory failure from combination of obesity hypoventilation, questionable pneumonia. Initially placed on BiPAP now down to 2 L -Chronic hypoxic respiratory failure On 2 L of nasal cannula at baseline -Chronic medical debility, patient is not ambulatory -Anemia of chronic kidney disease Hemoglobin was 7.3 on February 2022 - obesity BMI 36.7 -Chronic left hand contracture, right foot drop -Chronic multiple DVTs eliquis 2.5 mg held -Hyperlipidemia Lipitor 20 mg daily at bedtime -Muscle spasm Baclofen 10 mg daily at bedtime -Essential hypertension Toprol-XL currently held because of low blood pressure -Hypothyroid Synthroid 25 g at bedtime -Diabetes mellitus type 2, chronic on insulin Levemir 20 mg daily at bedtime. Follow Accu-Cheks -Chronic pain in the left hand and lower back. [place] [employer] [place] 7.5 every 12 when necessary -Anxiety depression Klonopin 0.5 mg daily at bedtime Prozac 20 mg daily-outpatient -Bilateral nonobstructing renal calculi,-asymptomatic -Chronic kidney disease stage 4 from obstructive uropathy with a history of left ureteral stent. Creatinine 3.26 on 02/19/2022 -Chronic Right renal atrophy -Full code IV ceftriaxone. Abscess is opened outwardly. Draining. Patient will need open drainage. Follow up with urology.
[2022-05-28] MEDS: ACETAMINOPHEN TAB 325 MG TAB PO PRN (03:05)
[2022-05-28] MEDS: clonazePAM 0.5 MG TAB PO PRN (03:05)
[2022-05-28] MEDS: DEXTROSE 5%-0.45% NACL 1,000 ML IV SCH ×2 (05:22→14:53)
--- NOTE | 2022-05-28 05:27 | P.PN ---
Subjective Progress Note Date: 05/28/22 Principal diagnosis: Right flank pain I'm seeing this patient in new consultation today 05/22/2022 in the intensive care unit after suspected cardiac arrest in the emergency room. Patient is a 37-year-old white female with multiple significant comorbidities including myocardial infarction, diabetes mellitus type 2, chronic kidney disease, hypothyroidism, anemia, frequent urinary tract infections with ESBL producing E. coli, CVA, pancreatitis, cognitive delay, DVT, gastric bypass. Patient does have a public guardian is a poor historian. Patient did have a recent prolonged hospital admission in January, for acute hypoxic respiratory failure related to CHF exacerbation versus pneumonia. Patient was brought in yesterday afternoon for right flank pain. An abdominal and pelvis CT without contrast done yesterday showed an 8.2 cm mass within the region of the right kidney. The previously atrophic kidney was enlarged with perinephric stranding. There was soft tissue density subcutaneous and deep tissues the right flank at the level of enlarged kidney. There was small amount of air present within the region. Ecchymosis extended throughout the right flank to the thigh. Correlation for hematoma was recommended. While in the emergency room, the patient became unresponsive and a CODE BLUE was activated. The presenting rhythm was PEA. Patient was successfully resuscitated after 1 round of CPR and 1 amp of epinephrine with an estimated down time of 3 minutes. She did not require intubation. She was hypotensive and given 1 L normal saline bolus. She did require a norepinephrine infusion, currently running at 0.1 mics per kg per minute, through a right IJ triple-lumen central line catheter. Patient is currently resting comfortably on 4 L nasal cannula, in no acute distress. Patient is oxygenating at near 100%. Post resuscitation chest x-ray showed no acute cardiopulmonary process. The patient's right flank area has extensive soft tissue edema, no obvious bruising or ecchymosis. The area is tender to palpation. A follow-up CBC showed a hemoglobin of 6.7, hematocrit 22.8, WBC 16, platelets 577,000. The patient was transfused 1 unit PRBC. Patient's BMP shows sodium 135, potassium 3.6, chloride 104, serum CO2 19, P1 57, creatinine chroni tre elevated at 3.46, glucose 137. Patient's lactic acid level was elevated at 2.9. Patient did receive a dose of Rocephin. She has been intermittently febrile with a T-max of 100.3F. Troponin was negative 1. NT proBNP was mildly elevated at 1720. Vital signs are stable. Patient is in the intensive care unit for closer monitoring. The patient is seen today 05/23/2022 in follow-up in the intensive care unit. She is currently awake and alert. Resting fairly comfortably in bed. She is maintaining O2 saturations up to 100% on 4 L/m per nasal cannula. No IV fluids currently. She has received 1 unit of packed red blood cells this admission. Current hemoglobin 8.5. Platelets 387. White count 13.3. Sodium 133. Potassium 3.5. Bicarb 19. BUN 60. Creatinine 3.92. Glucose 187. Urine positive for moderate bacteria and many white blood cells. Blood cultures positive for coag-negative staph. Urine culture pending. She is currently on daptomycin and Zosyn. ID service is on the case. She has been seen by urology regarding the right flank mass. Definitive diagnosis would require a CT-guided biopsy/aspiration. They feel they hemoglobin drops in the size of the per P nephrectomy mass increases it would be consistent for enlarging hematoma and may need transfer to a tertiary care center for right renal arterial embolization. The patient is seen today 05/24/2022 in follow-up in the intensive care unit. She is currently resting fairly comfortably in bed. Awake and alert. She was transferred out of the ICU yesterday but brought back to the ICU early this morning for hypotension. She is maintaining good O2 saturations in the 90s on 2 L/m per nasal cannula. She has normal saline at KVO. TSH and cortisol levels were within normal limits. Metoprolol is placed on hold. Patient did not require norepinephrine thus far. Initial blood cultures positive for coag- negative staph follow-up blood cultures revealing no growth. Urine culture no growth. White count 15.1. Hemoglobin 8.0. Platelets 386. Sodium 136. Potassium 3.9. Bicarb 18. BUN 62. Creatinine 3.9. TSH 1.68. Cortisol level 30. She remains on Zosyn and daptomycin currently. The patient is seen today 05/25/2022 in follow-up in the intensive care unit. She is currently awake and alert in no acute distress. Continue O2 saturations up to 100% on 3 L/m nasal cannula. Currently down to 2 L. She is denying any worsening shortness of breath, cough or congestion. She is asking to go home. Computed tomography scan of the abdomen reveals a right renal mass with perinephric soft tissue component as well as soft tissue in the right subcutaneous flank region. The findings could be posttraumatic in the appropriate clinical setting and reflect renal edema with perinephric and subc utaneous hematoma versus infiltrative mass such as sarcoma renal cell carcinoma is not excluded. She is status post 1 unit of packed red blood cells this admission. Follow-up blood cultures reveal no growth. Urine culture revealed no growth. White count 13.8. He was 7.9. Platelets 434. Sodium 138. Potassium 3.8. Bicarb 18. BUN 64. Creatinine 3.94. Glucose 89. She is continued on daptomycin. Oral diuretics. Sodium bicarb tablets. The patient is seen today 05/26/2022 in follow-up on the regular medical floor. She is currently resting comfortably in bed. Awake and alert in no acute distress. Maintaining good O2 saturations in the 90s on room air. She is status post 1 unit of packed red blood cells this admission. Yesterday's hemoglobin was 7.9. Today's hemoglobin is pending. Blood cultures are positive for staph schleiferi SS, Staphylococcus hemolyticus from 05/21/2022. Blood culture from 05/23/2022 revealed no growth. Urine culture revealed no growth. Blood glucose 108. She is currently on daptomycin. The patient is seen today 05/27/2022 in follow-up on the regular medical floor. She is currently resting comfortably in bed. Awake and alert in no acute dis tress. Continues to maintain O2 saturations in the 90s on room air. She's afebrile. Hemodynamically stable. She is now thinking that she did take a fall while at current medical [place]. Hurting her back. The plan is for follow-up computed tomography scan to evaluate the right kidney mass versus hematoma in 4- 6 weeks. Hemoglobin has remained stable at 7.9. Today's labs are pending. Follow-up blood cultures are revealing no growth. She remains on ceftriaxone per ID services. Continued on sodium bicarb tablets. Most recent bicarb 17. BUN 67. Creatinine 4.07. Blood sugar 101. I am reevaluating this patient today 05/28/2022 in follow-up on the general medical floor. Patient is currently resting in bed, on 2 L nasal cannula, in no acute distress. No significant changes in patient's status. No new labs from today. Labs were repeated yesterday, and the patient's CBC shows a WBC count of 7.2, hemoglobin stable at 7.7, hematocrit 26.9, platelets 382,000. Patient's BMP from yesterday shows sodium 137, potassium 3.9, chloride 108, serum CO2 13, BUN 67, creatinine down to 3.9, glucose 193. D5W with 0.45% saline infusing at 100 mL per hour. Patient is receiving sodium bicarbonate tabs. Patient has remained afebrile. Continues to be covered on Rocephin. Procalcitonin levels pending. Blood pressure stable on the Midodrine. Vital signs are stable. Objective - Vital Signs Vital signs: Vital Signs Temp 97.8 F 05/27/22 19:31 Pulse 102 H 05/27/22 19:31 Resp 16 05/27/22 20:00 BP 103/70 05/27/22 19:31 Pulse Ox 90 L 05/27/22 19:31 FiO2 Intake & Output 05/27/22 05/27/22 05/28/22 06:59 18:59 06:59 Output Total 1 Balance -1 Output: Stool 1 Other: Voiding Method Incontinent Incontinent Incontinent External Catheter External Catheter External Catheter # Voids 2 # Bowel Movements 1 3 - Exam GENERAL EXAM: Alert, obese female, in no acute distress. HEAD: Normocephalic and atraumatic EYES: Normal reaction of pupils, equal size. NOSE: Clear with pink turbinates. THROAT: No erythema or exudates. NECK: No masses, no JVD. CHEST: No chest wall deformity. LUNGS: Equal air entry with no crackles, wheeze, rhonchi or dullness. On 2 L nasal cannula. No conversational dyspnea or accessory muscle use. CVS: S1 and S2 normal with no audible murmur, regular rhythm. No extra heart sounds ABDOMEN: No hepatosplenomegaly, active bowel sounds, no guarding or rigidity. SPINE: No scoliosis or deformity SKIN: No rashes. Generalized pallor. There is extensive soft tissue swelling on the right flank area. No bruising or ecchymosis. CENTRAL NERVOUS SYSTEM: No focal deficits, tone is normal in all 4 extremities. EXTREMITIES: There is mild bilateral nonpitting edema of the lower extremities. No clubbing, or cyanosis. Peripheral pulses are intact. - Labs CBC & Chem 7: 05/27/22 07:41 05/27/22 07:41 Labs: Abnormal Lab Results - Last 24 Hours (Table) 05/27/22 05/27/22 05/27/22 Range/Units 07:41 07:41 07:42 RBC 3.03 L (3.80-5.40) m/uL Hgb 7.7 L (11.4-16.0) gm/dL Hct 26.9 L (34.0-46.0) % MCHC 28.7 L (31.0-37.0) g/dL RDW 18.7 H (11.5-15.5) % Lymphocytes # 0.8 L (1.0-4.8) k/uL Chloride 108 H (98-107) mmol/L Carbon Dioxide 13 L (22-30) mmol/L BUN 67 H (7-17) mg/dL Creatinine 3.90 H (0.52-1.04) mg/dL Glucose 193 H (74-99) mg/dL POC Glucose (mg/dL) 240 H (70-110) mg/dL Alkaline Phosphatase 130 H (38-126) U/L C-Reactive Protein 16.0 H (<1.0) mg/dL Albumin 2.3 L (3.5-5.0) g/dL 05/27/22 05/27/22 Range/Units 17:38 20:16 RBC (3.80-5.40) m/uL Hgb (11.4-16.0) gm/dL Hct (34.0-46.0) % MCHC (31.0-37.0) g/dL RDW (11.5-15.5) % Lymphocytes # (1.0-4.8) k/uL Chloride (98-107) mmol/L Carbon Dioxide (22-30) mmol/L BUN (7-17) mg/dL Creatinine (0.52-1.04) mg/dL Glucose (74-99) mg/dL POC Glucose (mg/dL) 211 H 192 H (70-110) mg/dL Alkaline Phosphatase (38-126) U/L C-Reactive Protein (<1.0) mg/dL Albumin (3.5-5.0) g/dL Microbiology - Last 24 Hours (Table) 05/26/22 19:00 Gram Stain - Preliminary Back Wound Culture - Preliminary 05/26/22 16:43 Blood Culture - Preliminary Blood No Growth after 24 hours 05/26/22 19:00 Anaerobic Culture - Preliminary Back 05/23/22 05:57 Blood Culture Gram Stain - Final Blood Blood Culture - Final Coagulase Negative Staph Assessment and Plan Assessment: PEA cardiac arrest witnessed with an estimated 3 minute downtime. Patient did receive CPR and 1 amp of epinephrine. Hypotension was treated with 1 L normal saline bolus, and started on a norepinephrine infusion. The patient had lindsey chana and was off norepinephrine. Transferred out of the intensive care unit on 05/23/2022. 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 Did not require any norepinephrine at this point. Add midodrine 10 mg 3 times a day. Hold metoprolol. Cortisol level 30. TSH normal. Now seen on the regular medical floor. Hemodynamically stable. Right flank pain currently under investigation. An abdominal and pelvis CT without contrast showed an 8.2 cm mass within the expected region of the right kidney. There was an enlarged right kidney with perinephric stranding. There was soft tissue density in the subcutaneous and did tissues the right flank at the level of the enlarged kidney. Small amount of air was present within this region. Ecchymosis appeared to extend through the flank to the thigh. Hematoma versus developing abscess are within the differential. Patient's anticoagulants currently on hold. Follow-up computed tomography scan from 05/24/2022 revealed a right renal mass with perinephric soft tissue component as well as soft tissue in the right subcutaneous flank region. The findings could be posttraumatic in the appropriate clinical setting and reflect renal edema with perinephric and subcutaneous hematoma versus infiltrative mass such as sarcoma renal cell carcinoma is not excluded. Lactic acidosis secondary to above Anemia with a hemoglobin of 6.7 gm/dl status post transfusion of 1 unit PRBC. Current hemoglobin 7.9. Patient does have baseline anemia of chronic disease. Acute on chronic kidney disease, creatinine is improving and is down to 3.9 Diabetes mellitus type 2 Hypothyroidism History of CVA History of cognitive delay and memory impairment History of gastric bypass Plan: The patient was seen and evaluated Medications and labs reviewed Blood pressure remains stable Continue midodrine Hemoglobin is stable at 7.7 g/dL Plan is for follow-up CT in 4-6 weeks per urology Plan is for discharge back to [facility] I have personally seen and examined the patient, performed the documentation and the assessment and plan as written. Number of minutes spent on the visit: 10. Time with Patient: Less than 30
[2022-05-28 07:10] LABS: Glucose,Whole Blood 217 mg/dL (70-110)
[2022-05-28] MEDS: CHOLECALCIFEROL 25 MCG (1000 IU) TABLET PO SCH (08:48)
[2022-05-28] MEDS: HYDROcodone/APAP 7.5-325MG 1 EACH TAB PO PRN (08:48)
[2022-05-28] MEDS: FAMOTIDINE 20 MG TAB PO SCH (08:48)
[2022-05-28] MEDS: FLUoxetine HCL 20 MG CAP PO SCH (08:48)
[2022-05-28] MEDS: METOPROLOL SUCCINATE (ER) 50 MG TAB.ER.24H PO SCH (08:48)
[2022-05-28] MEDS: MULTIVITAMINS, THERA 1 EACH TAB PO SCH (08:48)
[2022-05-28] MEDS: SODIUM BICARBONATE TAB 650 MG TAB PO SCH ×2 (08:48→20:15)
[2022-05-28] MEDS: MIDODRINE 5 MG TAB PO SCH ×3 (08:49→17:18)
[2022-05-28] MEDS: INSULIN ASPART (NovoLOG) 100 UNIT/ML VIAL SQ SCH ×3 (08:50→17:26)
[2022-05-28] MEDS: NON FORMULARY DRUG (Norethindrone [Camila] 0.35 MG Tablet) PO SCH (08:55)
[2022-05-28] MEDS: polyethylene glycoL 3350 17 GM POWD.PACK PO SCH (08:55)
[2022-05-28] MEDS: FUROSEMIDE 80 MG TAB PO SCH (09:01)
--- NOTE | 2022-05-28 11:11 | P.PN ---
Subjective Progress Note Date: 05/28/22 The patient has been in the hospital perinephric hematoma. Appears as if the hematoma is infected and is draining spontaneously out of the right flank. Objective - Vital Signs Vital signs: Vital Signs Temp 97.5 F L 05/28/22 07:11 Pulse 104 H 05/28/22 07:11 Resp 18 05/28/22 07:11 BP 99/61 05/28/22 07:11 Pulse Ox 99 05/28/22 08:02 FiO2 Intake & Output 05/27/22 05/28/22 05/28/22 18:59 06:59 18:59 Output Total 1 Balance -1 Weight 100 kg Output: Stool 1 Other: Voiding Method Incontinent Incontinent Incontinent External Catheter External Catheter External Catheter # Voids 2 3 1 # Bowel Movements 3 1 - Gastrointestinal Gastrointestinal Comment(s): There is meme purulence draining out of the right flank - Labs CBC & Chem 7: 05/27/22 07:41 05/27/22 07:41 Labs: Abnormal Lab Results - Last 24 Hours (Table) 05/27/22 05/27/22 05/28/22 Range/Units 17:38 20:16 05:47 POC Glucose (mg/dL) 211 H 192 H (70-110) mg/dL Procalcitonin 2.30 H (0.02-0.09) ng/mL 05/28/22 Range/Units 07:09 POC Glucose (mg/dL) 217 H (70-110) mg/dL Procalcitonin (0.02-0.09) ng/mL Microbiology - Last 24 Hours (Table) 05/26/22 19:00 Gram Stain - Preliminary Back Wound Culture - Preliminary Gram Neg Bacilli 05/26/22 16:43 Blood Culture - Preliminary Blood No Growth after 24 hours 05/26/22 19:00 Anaerobic Culture - Preliminary Back 05/23/22 05:57 Blood Culture Gram Stain - Final Blood Blood Culture - Final Coagulase Negative Staph Assessment and Plan Assessment: Right perinephric hematoma, right perinephric abscess, atrophic right kidney, multiple medical illnesses. Plan: This patient is a very uncomfortable and has a significant amount of purulence draining out of the right flank. She needs surgical incision and drainage of this perinephric hematoma/abscess today.
[2022-05-28 11:23] LABS: Glucose,Whole Blood 155 mg/dL (70-110)
[2022-05-28] MEDS: LACTATED RINGERS 1,000 ML IV ONE ×3 (11:56→14:52)
[2022-05-28] MEDS ORDERED: PHENYLEPHRINE-0.9% NACL SYG 1,000 MCG/10 ML SYRINGE ONE (12:07)
[2022-05-28] MEDS ORDERED: fentaNYL (PF) 50 MCG/ML 2 ML AMP ONE (12:07)
[2022-05-28] MEDS ORDERED: PROPOFOL 10 MG/ML 20 ML VIAL IV ONE (12:07)
[2022-05-28] MEDS ORDERED: ONDANSETRON 4 MG/2 ML VIAL ONE (12:07)
[2022-05-28] MEDS ORDERED: ePHEDrine 50 MG/ML 1 ML VIAL ONE (12:07)
[2022-05-28] MEDS ORDERED: LIDOCAINE 2% INJ 20 MG/ML (2 ML VIAL) ONE (12:07)
[2022-05-28] MEDS ORDERED: SUCCINYLCHOLINE CHLORIDE 200 MG/10 ML VIAL IV ONE (12:07)
[2022-05-28] MEDS ORDERED: MIDAZOLAM 2 MG/2 ML VIAL ONE (12:07)
[2022-05-28] MEDS ORDERED: ROCURONIUM 10 MG/ML (5 ML VIAL) IV ONE (12:07)
--- NOTE | 2022-05-28 12:54 | P.OP ---
Date of Procedure: 05/28/22 Preoperative Diagnosis: Right renal abscess Postoperative Diagnosis: Same Procedure(s) Performed: Open exploration with drainage of large right perirenal abscess and debridement of necrotic tissue Anesthesia: HORTENCIA Surgeon: Aubrey Moore Health Advisor #1: Juan Nino Estimated Blood Loss (ml): 50 Pathology: other (Cultures) Condition: critical Disposition: PACU Indications for Procedure: Patient is a 37-year-old female in the hospital with anemia and what was felt to be a right perinephric hematoma. The patient was seen this morning and it was obvious that this is a perinephric abscess as the abscess drained out her right flank. She comes for drainage and incision of this abscess. Description of Procedure: Patient brought operating suite. She is given a general anesthetic. Rosado catheters introduced. She's placed in a flank position. A right flank was exposed and there is necrotic tissue drain meme pus. I excised the necrotic area which was about 4 x 6 cm. I drained out about a liter. Once a. I then irrigate thoroughly the retroperitoneal cavity with half-strength hydrogen peroxide. Control any bleeding with electrocautery. I then packed the wound with a Betadine soaked rolled Kerlix. The patient is transferred to intensive care unit. Her condition is serious.
[2022-05-28 13:20] LABS: Glucose,Whole Blood 131 mg/dL (70-110)
[2022-05-28] MEDS ORDERED: Magnesium Replacement Protocol 1 EACH MISC MISCELLANE PRN (13:51)
[2022-05-28 13:58] LABS: ABG HCO3 16 mmol/L (21-25); ABG PCO2 38 mmHg (35-45); ABG PH 7.24 (7.35-7.45); ABG PO2 226 mmHg (83-108); ABG TCO2 18 mmol/L (19-24); Allen Test Performed? Yes
[2022-05-28] MEDS: LACTATED RINGERS 2,000 ML IV SCH ×3 (14:55→20:18)
[2022-05-28 17:26] LABS: Glucose,Whole Blood 211 mg/dL (70-110)
[2022-05-28] MEDS: MELATONIN 5 MG TABLET PO SCH (20:13)
[2022-05-28] MEDS: clonazePAM 0.5 MG TAB PO SCH (20:14)
[2022-05-28] MEDS: SENNOSIDES-DOCUSATE SODIUM 1 EACH TAB PO SCH (20:14)
[2022-05-28] MEDS: ATORVASTATIN 20 MG TAB PO SCH (20:15)
[2022-05-28] MEDS: BACLOFEN 10 MG TAB PO SCH (20:15)
[2022-05-28] MEDS: FERROUS SULFATE 325 MG TAB PO SCH (20:15)
[2022-05-28] MEDS: CHLORHEXIDINE GLUCONATE 15 ML CUP MUCOUS MEM SCH (20:15)
[2022-05-28] MEDS: LEVOTHYROXINE 25 MCG TAB PO SCH (20:15)
--- NOTE | 2022-05-28 21:16 | P.PN ---
Subjective Progress Note Date: 05/28/22 Principal diagnosis: Right flank abscess/hematoma and bacteremia Patient is a 37-year-old female with a past medical history significant for CVA TIA DVT morbid obesity history of recurrent UTI patient presenting to the ER with concern for right flank pain, patient did have abnormal CT concerning for increasing mass to the right kidney area , patient has been diagnosed with right perinephric abscess and the patient is status post surgical drainage completed on 05/28/2022 On today's evaluation of that is 05/28/2022, the patient remains to be afebrile, the patient is on the ventilator post surgery and admitted to the ICU affect is currently at 30% patient did request some fluid boluses on multiple pressor support for the nursing staff remains to be sedated on the vent Objective - Vital Signs Vital signs: Vital Signs Temp 97.5 F L 05/28/22 07:11 Pulse 104 H 05/28/22 07:11 Resp 18 05/28/22 07:11 BP 99/61 05/28/22 07:11 Pulse Ox 99 05/28/22 08:02 FiO2 Intake & Output 05/27/22 05/28/22 05/28/22 18:59 06:59 18:59 Output Total 1 Balance -1 Weight 100 kg Output: Stool 1 Other: Voiding Method Incontinent Incontinent Incontinent External Catheter External Catheter External Catheter # Voids 2 3 1 # Bowel Movements 3 1 - Labs CBC & Chem 7: 05/27/22 07:41 05/27/22 07:41 Labs: Abnormal Lab Results - Last 24 Hours (Table) 05/27/22 05/27/22 05/28/22 Range/Units 17:38 20:16 05:47 POC Glucose (mg/dL) 211 H 192 H (70-110) mg/dL Procalcitonin 2.30 H (0.02-0.09) ng/mL 05/28/22 05/28/22 Range/Units 07:09 11:22 POC Glucose (mg/dL) 217 H 155 H (70-110) mg/dL Procalcitonin (0.02-0.09) ng/mL Microbiology - Last 24 Hours (Table) 05/26/22 19:00 Gram Stain - Preliminary Back Wound Culture - Preliminary Gram Neg Bacilli 05/26/22 16:43 Blood Culture - Preliminary Blood No Growth after 24 hours 05/26/22 19:00 Anaerobic Culture - Preliminary Back 05/23/22 05:57 Blood Culture Gram Stain - Final Blood Blood Culture - Final Coagulase Negative Staph Assessment and Plan (1) Positive blood culture Current Visit: Yes Status: Acute Code(s): R78.81 - BACTEREMIA SNOMED Code(s): 527583550 (2) Abscess of flank Current Visit: Yes Status: Acute Code(s): L02.211 - CUTANEOUS ABSCESS OF ABDOMINAL WALL SNOMED Code(s): 99333539 Plan: 1patient presented to the hospital with sepsis in this patient who did have a fever elevated white count has been complaining of flank pain with evidence of possible renal abscess/pyelonephritis likely from enteric gram-negative pathogen. Patient also have a positive blood culture with staph epi has been finalized with staphylococcus hemolyticus, repeat CT did not show any worsening however patient did have spontaneous drainage of this infected hematoma and the patient is status post open drainage of the abscess and debridement of necrotic tissue by urology completed on 05/28/2022 cultures. Currently pending 2the patient initial cultures currently growing gram-negative will switch Rocephin to cefepime while waiting for sensitivity to finalize Time with Patient: Less than 30
--- NOTE | 2022-05-28 21:45 | P.PN ---
Progress Note - Text Progress Note Date: 05/28/22 Chief Complaint: Right flank pain 37-year-old female with a known history of CVA with right-sided weakness, cognitive impairment, history of gastric bypass surgery, history of DVT on eliquis. oxygen at 2 L via nasal cannula since her COVID infection. CKD with baseline creatinine level around 3.0. resident of [facility], [facility] - long-term resident. known history of irregular vaginal bleeding - polycystic ovarian syndrome.. multiple DVTs in the past. Following gastric bypass surgery patient had a stroke and myocardial infarction. - resulted in cognitive impairment. poor short-term memory. - bedbound. contracture of the left hand and foot drop on the right leg. history of hyperlipidemia anxiety hypertension hypothyroid diabetes. Patient has a legal guardian Chandrika Special note: Patient always request more pain medications. But if explained she that this leads to her mental status changing and she is finding the same. This should be kept in mind when she asked for pain medications repeatedly. Will need to be given when she is uncomfortable. Once explained she becomes rather comfortable. Presented to the ER right flank pain and fever. For 2 days. Did have ecchymosis along the right flank. Hemoglobin was noted to be 6.7 did receive 1 unit of blood. In the ER patient had a cardiac arrest felt to be PEA as he suddenly became unresponsive. He received chest compression and spontaneous r eturn of circulation. And moved to the ICU. Has baseline memory impairment. Patient is started on ceftriaxone in the ER. Patient was then put on levo fed drip. Patient overnight was on BiPAP. This morning down to 2 L. 05/23/2022: Patient was seen this morning the ICU. Decreased in ecchymosis on the right flank. Indurated area. Tender. For pain to use K pad. Discussed with the nurse. Explained to the patient about pain. IV daptomycin. Per urology if further decrease in hemoglobin and enlarging right renal fossa that would require renal artery embolization at a tertiary center. Positive blood culture likely contaminant. Had some lunch 05/24/2022: ICU. Laying in bed. 2 L nasal cannula. Eating fair. Patient wanted stronger pain medications. K pad. She can have a home dose of Chaplin. Explained. Discussed with ID-the procedures repeat computed tomography scan to look at the size of the hematoma. On IV daptomycin. Zosyn has been discontinued. Patient was transferred to medical floor yesterday. So now after vacation became less responsive became hypotensive. Brought back to the ICU. With fluid bolus the blood pressure came back up. May 25: Patient moved to the medical floor. Has been refusing to eat. IV daptomycin. May 26: Patient not eating this morning again. Spoke to the nurse to encourage the patient to eat. Done on the lights and opened the drapes Patient is sleepy. We'll make the morning dose of Klonopin when necessary. Discussed with patient. Much improved pain in the right flank. ID is ordered IR to drain the possible infected hematoma on Saturday. Antibiotics being changed to Rocephin 2 g daily May 27: Patient started draining pus from the right flank area. It is felt that infected hematoma, has come through. Discussed with ID. He contacted Dr. brar for possible further drainage. Await further input. Afebrile. IV ceftriaxone May 28: So the patient this morning. He to patient to the OR by Dr. Zelaya. Right flank was exposed that was significant necrotic tissue draining meme pus. About a liter was drained. Clean with hydrogen peroxide. Wound was packed with Betadine soaked Kerlix. Sent to ICU Active Medications Acetaminophen (Acetaminophen Tab 325 Mg Tab) 650 mg PO Q6HR PRN PRN Reason: Mild Pain or Fever > 100.5 Last Admin: 05/28/22 03:05 Dose: 650 mg Hydrocodone Bitart/Acetaminophen (Hydrocodone/Apap 7.5-325mg 1 Each Tab) 1 each PO Q8H PRN PRN Reason: Pain Last Admin: 05/28/22 08:48 Dose: 1 each Atorvastatin Calcium (Atorvastatin 20 Mg Tab) 20 mg PO HS@1999 [facility] Last Admin: 05/28/22 20:15 Dose: 20 mg Baclofen (Baclofen 10 Mg Tab) 10 mg PO HS@1999 [facility] Last Admin: 05/28/22 20:15 Dose: 10 mg Chlorhexidine Gluconate (Chlorhexidine Gluconate 15 Ml Cup) 15 ml MUCOUS MEM BID [facility] Last Admin: 05/28/22 20:15 Dose: 15 ml Cholecalciferol (Cholecalciferol 25 Mcg (1000 Iu) Tablet) 75 mcg PO DAILY [facility] Last Admin: 05/28/22 08:48 Dose: 75 mcg Clomipramine HCl (Clomipramine 50 Mg Cap) 50 mg PO HS@1999 [facility] Last Admin: 05/27/22 21:45 Dose: 50 mg Clonazepam (Clonazepam 0.5 Mg Tab) 0.25 mg PO HS [facility] Last Admin: 05/28/22 20:14 Dose: Not Given Clonazepam (Clonazepam 0.5 Mg Tab) 0.25 mg PO DAILY PRN PRN Reason: Anxiety Last Admin: 05/28/22 03:05 Dose: 0.25 mg Darbepoetin Kurtis (Darbepoetin Kurtis 25 Mcg/0.42 Ml Syringe) 25 mcg SQ MO@2200 [facility] Last Admin: 05/22/22 00:32 Dose: 25 mcg Dextrose/Water (Dextrose 50% Syringe 50 Ml) 25 ml IVP PER PROTOCOL PRN; Protocol PRN Reason: Hypoglycemia Dextrose/Water (Dextrose 50% Syringe 50 Ml) 50 ml IVP PER PROTOCOL PRN; Protocol PRN Reason: Hypoglycemia Famotidine (Famotidine 20 Mg Tab) 20 mg PO DAILY [facility] Last Admin: 05/28/22 08:48 Dose: 20 mg Ferrous Sulfate (Ferrous Sulfate 325 Mg Tab) 325 mg PO BID@0800,1999 [facility] Last Admin: 05/28/22 20:15 Dose: 325 mg Fluoxetine HCl (Fluoxetine Hcl 20 Mg Cap) 20 mg PO DAILY [facility] Last Admin: 05/28/22 08:48 Dose: 20 mg Furosemide (Furosemide 80 Mg Tab) 80 mg PO DAILY [facility] Last Admin: 05/28/22 09:01 Dose: 80 mg Dextrose/Sodium Chloride (Dextrose 5%-1/2ns Iv Soln) 1,000 mls @ 100 mls/hr IV .Q10H [facility] Last Admin: 05/28/22 14:53 Dose: 100 mls/hr Propofol 1,000 mg/ IV Solution 100 mls @ 9 mls/hr IV .Q11H7M [facility]; Protocol Last Admin: 05/28/22 17:19 Dose: 30 mcg/kg/min, 18 mls/hr Norepinephrine Bitartrate 4 mg (/ Sodium Chloride) 254 mls @ 11.43 mls/hr IV .[id number] [facility]; Protocol Cefepime HCl 2 gm/ Sodium (Chloride) 100 mls @ 25 mls/hr IVPB Q12HR [facility]; Protocol Insulin Aspart (Insulin Aspart (Novolog) 100 Unit/Ml Vial) 0 unit SQ Q6HR [facility]; Protocol Last Admin: 05/28/22 17:26 Dose: 4 unit Insulin Detemir (Insulin Detemir (Levemir) 100 Unit/Ml Syr) 20 unit SQ [facility] Last Admin: 05/27/22 22:04 Dose: 20 unit Levothyroxine Sodium (Levothyroxine 25 Mcg Tab) 25 mcg PO HS@1999 [facility] Last Admin: 05/28/22 20:15 Dose: 25 mcg Melatonin (Melatonin 5 Mg Tablet) 5 mg PO HS@1999 [facility] Last Admin: 05/28/22 20:13 Dose: Not Given Metoprolol Succinate (Metoprolol Succinate (Er) 50 Mg Tab.Er.24h) 50 mg PO DAILY [facility] Last Admin: 05/28/22 08:48 Dose: 50 mg Midodrine (Midodrine 5 Mg Tab) 10 mg PO AC-TID [facility] Last Admin: 05/28/22 17:18 Dose: 10 mg Miscellaneous Information (Potassium Replacement Protocol 1 Each Misc) 1 each MISCELLANE DAILY PRN; Protocol PRN Reason: Per Protocol Miscellaneous Information (Magnesium Replacement Protocol 1 Each Misc) 1 each MISCELLANE DAILY PRN; Protocol PRN Reason: Per Protocol Multivitamins (Multivitamins, Thera 1 Each Tab) 1 each PO DAILY [facility] Last Admin: 05/28/22 08:48 Dose: 1 each Naloxone HCl (Naloxone 0.4 Mg/Ml 1 Ml Vial) 0.2 mg IV Q2M PRN PRN Reason: Opioid Reversal Non-Formulary Medication (Norethindrone [Chani]) 0.35 mg PO DAILY [facility] Last Admin: 05/28/22 08:55 Dose: Not Given Ondansetron HCl (Ondansetron 4 Mg/2 Ml Vial) 4 mg IVP Q8HR PRN PRN Reason: Nausea And Vomiting Polyethylene Glycol (Polyethylene Glycol 3350 17 Gm Powd.Pack) 17 gm PO DAILY [facility] Last Admin: 05/28/22 08:55 Dose: Not Given Senna/Docusate Sodium (Sennosides-Docusate Sodium 1 Each Tab) 2 each PO HS@1999 [facility] Last Admin: 05/28/22 20:14 Dose: Not Given Sodium Bicarbonate (Sodium Bicarbonate Tab 650 Mg Tab) 650 mg PO BID@ [facility] Last Admin: 05/28/22 20:15 Dose: 650 mg Past medical history to include: Stroke resulting in decreased memory (contracture, following, in 2015 following surgery, DVT, [place], gastric bypass in 2016, anxiety depression, muscle spasms, irregular menstrual bleeding, hypertension, hypothyroid chronic pain in the hands / back. Irregular vaginal bleeding-polycystic ovary syndrome. Multiple DVTs in the past. Following gastric bypass surgery patient had a stroke and myocardial infarction. Resulting in cognitive impairment. Hyperlipidemia, anxiety, hypertension, hypothyroid Social history: long-term resident of [facility] on, no smoking. Did smoke marijuana in high school. Pretty much bedbound. Has a legal guardian Chandrika Physical examination: VITAL SIGNS: 97.5, 104, 18, 99/61, 99% on 2 L GENERAL: Reclining in bed,, tired EYES: Pupils equal. Conjunctiva pale. HEENT: External appearance of nose and ears normal, oral cavity grossly normal. NECK: JVD unable to assess masses not palpable. HEART: Heart sounds are muffled; no edema. LUNGS: Respiratory rate normal; distant breath sounds. ABDOMEN: Soft, Right flank abscess drainage, liver spleen not palpable, no masses palpable. PSYCH: Answering simple. Mood and affect normal. Forgetful NEUROLOGICAL: [Cranial nerves grossly intact; no facial asymmetry, contracture of the left hand. Right Foot drop INVESTIGATIONS, reviewed in the clinical context: May 28: Procalcitonin 2.3 May 27: White count 7.2 hemoglobin 7.7 potassium 3.9 creatinine 3.9 May 26: WBC 10.9 hemoglobin 7.9 platelets 453 potassium 3.5. 67 creatinine 4.07 May 25: White count 13.8 hemoglobin 7.9 platelets 434 potassium 3.8 BUN 64 creatinine 3.94 May 24: White count 15.1 hemoglobin 8 platelets 386 potassium 3.9 BUN 62 creatinine 3.98 troponin I less than 0.012, TSH 1.6 cortisol 30 Blood cultures [May 21]. Staphylococcus hemolyticus. Staphy lococcusschleiferi. Repeat blood cultures negative May 23: White count 13.3 hemoglobin 8.5 platelets 327 potassium 3.5. An 60 creatinine 3.9 to 05/22/2022: White count 14.8 hemoglobin 8.4 platelets 474, sodium 137 creatinine 3.49 UA: Leukoesterase large. WBC 182 nitrate negative Admission labs: White count 16.1 hemoglobin 6.7 platelets 577 sodium 135 potassium 3.6 BUN 57 creatinine 3.46 lactic acid 2.[address] abdomen pelvis without contrast: Right adrenal gland not identified. Gallbladder surgically absent. 8.2 cm mass within the expected region of the right kidney. This was previously an atrophic kidney. That was enlarged. Perinephric stranding. Soft tissue density in the posterior right flank is a level of this right kidney. Small amount of air is present in the region of the right kidney. Ecchymosis appears to extend to the flank to the thigh. Chest x-ray film personally reviewed by me-infiltrate versus edema possible. EKG tracing personally reviewed by me-heart rate 108. Sinus tachycardia Renal ultrasound: Masslike area within the lower pole of the kidney in the right. Circumferentially wall thickening of the sigmoid colon. Assessment plan: -Infected hematoma at right renal bed secondary to patient being on eliquis - atrophic kidney previously. This seems to track down to the thigh.: Has opened outwardly draining. IV ceftriaxone.. Blood cultures Staphylococcus hemolytic this.. Follow with ID.. May 28: Meme pus was drained from the perinephric area. Iodine-soaked gauze was placed. Moved to the ICU post operative -Sepsis, POA from infected hematoma -PEA cardiac arrest witnessed lasting about 3 minutes. Patient did receive 1 amp of epinephrine and CPR. Fluid bolus and levo fed. - discontinued -Combination of septic shock and hypovolemic shock from bleeding./Hematoma. Better Fluid resuscitation, IV levo fed-discontinued. IV antibiotics -Acute hypoxic respiratory failure from combination of obesity hypoventilation, questionable pneumonia. Initially placed on BiPAP now down to 2 L -Chronic hypoxic respiratory failure On 2 L of nasal cannula at baseline -Chronic medical debility, patient is not ambulatory -Anemia of chronic kidney disease Hemoglobin was 7.3 on February 2022 - obesity BMI 36.7 -Chronic left hand contracture, right foot drop -Chronic multiple DVTs eliquis 2.5 mg held -Hyperlipidemia Lipitor 20 mg daily at bedtime -Muscle spasm Baclofen 10 mg daily at bedtime -Essential hypertension Toprol-XL currently held because of low blood pressure -Hypothyroid Synthroid 25 g at bedtime -Diabetes mellitus type 2, chronic on insulin Levemir 20 mg daily at bedtime. Follow Accu-Cheks -Chronic pain in the left hand and lower back. Chaplin 7.5 every 12 when necessary -Anxiety depression Klonopin 0.5 mg daily at bedtime Prozac 20 mg daily-outpatient -Bilateral nonobstructing renal calculi,-asymptomatic -Chronic kidney disease stage 4 from obstructive uropathy with a history of left ureteral stent. Creatinine 3.26 on 02/19/2022 -Chronic Right renal atrophy -Full code IV ceftriaxone. Taken to the OR this afternoon. After admitted to the ICU.
[2022-05-28] MEDS: INSULIN DETEMIR (LEVEMIR) 100 UNIT/ML SYR SQ SCH (22:24)
[2022-05-29] MEDS: IPRATROPIUM-ALBUTEROL 3 ML NEB INHALATION SCH ×6 (00:31→20:14)
[2022-05-29] MEDS: CEFEPIME 2 GM in SODIUM CHLORIDE 0.9% 100 ML IVPB SCH ×2 (00:50→07:49)
[2022-05-29 01:08] LABS: Glucose,Whole Blood 189 mg/dL (70-110)
[2022-05-29] MEDS: DARBEPOETIN ALFA 25 MCG/0.42 ML SYRINGE SQ SCH (01:40)
[2022-05-29] MEDS: INSULIN ASPART (NovoLOG) 100 UNIT/ML VIAL SQ SCH ×4 (01:41→17:45)
[2022-05-29] MEDS: DEXTROSE 5%-0.45% NACL 1,000 ML IV SCH (01:41)
[2022-05-29] MEDS: NOREPINEPHRINE 4 MG in SODIUM CHLORIDE 0.9% 250 ML IV SCH ×2 (01:48→16:07)
[2022-05-29 04:51] LABS: Anisocytosis Slight; Basophils % (A) 0 %; Eosinophils # (A) 0.3 k/uL (0-0.7); Eosinophils % (A) 4 %; HCT 26.4 % (34.0-46.0); Hypochromasia Marked; Lymphocytes # (A) 0.8 k/uL (1.0-4.8); Lymphocytes % (A) 11 %; MCH 25.9 pg (25.0-35.0); MCHC 30.2 g/dL (31.0-37.0); MCV 85.9 fL (80.0-100.0); Mean Platelet Volume 7.7; Monocytes # (A) 0.4 k/uL (0-1.0); Monocytes % (A) 5 %; Neutrophils # (A) 5.6 k/uL (1.3-7.7); Neutrophils % (A) 77 %; Platelet Count 303 k/uL (150-450); Poikilocytosis Moderate; RBC 3.07 m/uL (3.80-5.40); RDW 19.3 % (11.5-15.5); WBC 7.3 k/uL (3.8-10.6)
[2022-05-29 04:56] LABS: Calcium 8.6 mg/dL (8.4-10.2); Potassium 3.4 mmol/L (3.5-5.1)
[2022-05-29 05:59] LABS: Glucose,Whole Blood 202 mg/dL (70-110)
[2022-05-29 06:04] LABS: ABG Base Excess -10.1 mmol/L; ABG HCO3 17 mmol/L (21-25); ABG Oxygen Saturation 98.9 % (94-97); ABG PCO2 39 mmHg (35-45); ABG PH 7.25 (7.35-7.45); ABG PO2 129 mmHg (83-108); ABG TCO2 18 mmol/L (19-24); Allen Test Performed? Yes
[2022-05-29] MEDS: POTASSIUM BICARBONATE/CIT AC 20 MEQ TABLET.EFF NG-TUBE SCH ×2 (06:44→07:36)
[2022-05-29] MEDS: MIDODRINE 5 MG TAB PO SCH ×3 (06:44→16:07)
[2022-05-29] MEDS: FLUoxetine HCL 20 MG CAP PO SCH (07:36)
[2022-05-29] MEDS: FAMOTIDINE 20 MG TAB PO SCH ×2 (07:36→07:37)
[2022-05-29] MEDS: MULTIVITAMINS, THERA 1 EACH TAB PO SCH (07:36)
[2022-05-29] MEDS: CHLORHEXIDINE GLUCONATE 15 ML CUP MUCOUS MEM SCH ×2 (07:36→20:25)
[2022-05-29] MEDS: FUROSEMIDE 80 MG TAB PO SCH (07:36)
[2022-05-29] MEDS: CHOLECALCIFEROL 25 MCG (1000 IU) TABLET PO SCH (07:36)
[2022-05-29] MEDS: HYDROcodone/APAP 7.5-325MG 1 EACH TAB PO PRN ×2 (07:36→16:07)
[2022-05-29] MEDS: FERROUS SULFATE 325 MG TAB PO SCH ×2 (07:48→20:14)
[2022-05-29] MEDS: NON FORMULARY DRUG (Norethindrone [Camila] 0.35 MG Tablet) PO SCH (07:48)
[2022-05-29] MEDS: polyethylene glycoL 3350 17 GM POWD.PACK PO SCH (07:49)
[2022-05-29] MEDS: SODIUM BICARBONATE TAB 650 MG TAB PO SCH ×2 (07:53→20:14)
--- NOTE | 2022-05-29 08:36 | P.PN ---
Subjective Progress Note Date: 05/29/22 The patient is a 37-year-old female with a history of CVA, DVT, MA, diabetes mellitus, anemia, pancreatitis, atrophic right kidney, recurrent UTIs with ESBL, and kidney stones requiring surgical intervention. The patient also has a history of renal failure due to an obstructed stent. On 05/21/22 she presented to the emergency department for an abscess on her back, that she believes has been present for a couple days. She is bedbound at home and describes the abscess area to be very painful. She denies any fever, chills, chest pain, abdominal pain, nausea, vomiting, headaches. However, the patient is a poor historian and has memory impairment after suffering her stroke and has a public guardian. An abdominal and pelvis CT without contrast done yesterday showed an 8.2 cm mass within the region of the right kidney. The previously atrophic kidney was enlarged with perinephric stranding. There was soft tissue density subcutaneous and deep tissues the right flank at the level of enlarged kidney. There was small amount of air present within the region. Ecchymosis extended throughout the right flank to the thigh. Correlation for hematoma was recommended. While in the emergency room, the patient became unresponsive and a CODE BLUE was activated. The presenting rhythm was PEA. Patient was successfully resuscitated after 1 round of CPR and 1 amp of epinephrine with an estimated down time of 3 minutes. She did not require intubation. CXR showed no acute cardiopulmonary process. A follow-up CBC showed a hemoglobin of 6.7, hematocrit 22.8, WBC 16, platelets 57. The patient was transfused 1 unit PRBC. Serum creatinine 3.86 upon admission. 05/23 The hemoglobin level this morning was 8.5, up from 8.4 yesterday. She remains tachycardic. I suspect that the CT scan findings represent a right perinephric hematoma. Urine culture shows mixed genital kelli. Blood cultures showed coagulase-negative staph, the significance of which is unclear. Definitive diagnosis would require CT-guided biopsy/aspiration. If the hemoglobin level drops and the size of the perinephric mass increases, this would be consistent with an enlarging hematoma in which case I would recommend referral to a tertiary care center for right renal arterial embolization. 05/24 The hemoglobin level this morning was 8.0, down from 8.5 yesterday. She remains tachycardic. I suspect that the CT scan findings represent a right perinephric hematoma. 05/25 The hemoglobin level this morning was 7.9, which is stable. 05/26 The hemoglobin level is stable at 7.9. Patient is symptomatically unchanged. 05/27 The patient did have spontaneous drainage of this infected hematoma and will benefit from open drainage. 05/28 This patient is a very uncomfortable and has a significant amount of purulence draining out of the right flank. She went to the OR with Dr. Moore and had an open exploration with drainage of large right perirenal abscess and debridement of necrotic tissue. Wound cultures were sent. The wound was packed with a Betadine soaked rolled Kerlix. The patient is transferred to intensive care unit. She was unable to be extubated. Her condition is serious Objective - Vital Signs Vital signs: Vital Signs Temp 97.7 F 05/29/22 08:00 Pulse 108 H 05/29/22 08:00 Resp 16 05/29/22 08:00 BP 115/56 05/29/22 08:00 Pulse Ox 100 05/29/22 08:00 FiO2 30 05/29/22 08:00 Intake & Output 05/28/22 05/29/22 05/29/22 18:59 06:59 18:59 Intake Total 2845 1388.25 362.294 Output Total 281 1046 300 Balance 2564 342.25 62.294 Weight 107 kg Intake: IV 400 1100 200 Dextrose 5%-0.45% NaCl 1, 1100 200 000 ml @ 100 mls/hr IV . Q10H [facility] Rx#:[id number] Intake, IV Titration 2445 288.25 162.294 Amount Cefepime 2 gm In Sodium 100 Chloride 0.9% 100 ml @ 25 mls/hr IVPB Q12HR [facility] Rx #:[id number] Dextrose 5%-0.45% NaCl 1, 400 100 000 ml @ 100 mls/hr IV . Q10H [facility] Rx#:[id number] Lactated Ringers 1,000 ml 2000 @ 0 mls/hr IV .[facility] Rx#:[id number] Norepinephrine 4 mg In 62.294 Sodium Chloride 0.9% 250 ml @ 0.03 MCG/KG/MIN 11. 43 mls/hr IV .[id number] [facility] Rx#:[id number] propofoL 1,000 mg In 45 188.25 Empty Bag 1 bag @ 15 MCG/ KG/MIN 9 mls/hr IV . Q11H7M [facility] Rx#:[id number] Output: Urine 260 1045 300 Stool 1 1 Estimated Blood Loss 20 Other: Voiding Method Indwelling Catheter Indwelling Catheter Indwelling Catheter External Catheter # Voids 1 - Exam General: Well developed, well nourished. No acute distress. HEENT: Head is atraumatic, normocephalic. Lungs: Mechanically ventilated, FIO2 30%, PEEP 5 Abdomen/GI: Soft, obese, non-distended. : Rosado catheter draining yellow urine with sediment Skin: Right flank incision with large amount of drainage, dressing reinforced Neurologic: sedated - Labs CBC & Chem 7: 05/29/22 03:48 05/29/22 03:48 Labs: Abnormal Lab Results - Last 24 Hours (Table) 05/28/22 05/28/22 05/28/22 Range/Units 05:47 11:22 13:18 RBC (3.80-5.40) m/uL Hgb (11.4-16.0) gm/dL Hct (34.0-46.0) % MCHC (31.0-37.0) g/dL RDW (11.5-15.5) % Lymphocytes # (1.0-4.8) k/uL ABG pH (7.35-7.45) ABG pO2 (83-108) mmHg ABG HCO3 (21-25) mmol/L ABG Total CO2 (19-24) mmol/L ABG O2 Saturation (94-97) % Sodium (137-145) mmol/L Potassium (3.5-5.1) mmol/L Carbon Dioxide (22-30) mmol/L BUN (7-17) mg/dL Creatinine (0.52-1.04) mg/dL Glucose (74-99) mg/dL POC Glucose (mg/dL) 155 H 131 H (70-110) mg/dL Procalcitonin 2.30 H (0.02-0.09) ng/mL 05/28/22 05/28/22 05/29/22 Range/Units 13:56 17:25 01:06 RBC (3.80-5.40) m/uL Hgb (11.4-16.0) gm/dL Hct (34.0-46.0) % MCHC (31.0-37.0) g/dL RDW (11.5-15.5) % Lymphocytes # (1.0-4.8) k/uL ABG pH 7.24 L (7.35-7.45) ABG pO2 226 H (83-108) mmHg ABG HCO3 16 L (21-25) mmol/L ABG Total CO2 18 L (19-24) mmol/L ABG O2 Saturation 100.0 H (94-97) % Sodium (137-145) mmol/L Potassium (3.5-5.1) mmol/L Carbon Dioxide (22-30) mmol/L BUN (7-17) mg/dL Creatinine (0.52-1.04) mg/dL Glucose (74-99) mg/dL POC Glucose (mg/dL) 211 H 189 H (70-110) mg/dL Procalcitonin (0.02-0.09) ng/mL 05/29/22 05/29/22 05/29/22 Range/Units 03:48 03:48 05:57 RBC 3.07 L (3.80-5.40) m/uL Hgb 8.0 L (11.4-16.0) gm/dL Hct 26.4 L (34.0-46.0) % MCHC 30.2 L (31.0-37.0) g/dL RDW 19.3 H (11.5-15.5) % Lymphocytes # 0.8 L (1.0-4.8) k/uL ABG pH (7.35-7.45) ABG pO2 (83-108) mmHg ABG HCO3 (21-25) mmol/L ABG Total CO2 (19-24) mmol/L ABG O2 Saturation (94-97) % Sodium 135 L (137-145) mmol/L Potassium 3.4 L (3.5-5.1) mmol/L Carbon Dioxide 15 L (22-30) mmol/L BUN 61 H (7-17) mg/dL Creatinine 3.59 H (0.52-1.04) mg/dL Glucose 158 H (74-99) mg/dL POC Glucose (mg/dL) 202 H (70-110) mg/dL Procalcitonin (0.02-0.09) ng/mL 05/29/22 Range/Units 05:59 RBC (3.80-5.40) m/uL Hgb (11.4-16.0) gm/dL Hct (34.0-46.0) % MCHC (31.0-37.0) g/dL RDW (11.5-15.5) % Lymphocytes # (1.0-4.8) k/uL ABG pH 7.25 L (7.35-7.45) ABG pO2 129 H (83-108) mmHg ABG HCO3 17 L (21-25) mmol/L ABG Total CO2 18 L (19-24) mmol/L ABG O2 Saturation 98.9 H (94-97) % Sodium (137-145) mmol/L Potassium (3.5-5.1) mmol/L Carbon Dioxide (22-30) mmol/L BUN (7-17) mg/dL Creatinine (0.52-1.04) mg/dL Glucose (74-99) mg/dL POC Glucose (mg/dL) (70-110) mg/dL Procalcitonin (0.02-0.09) ng/mL Microbiology - Last 24 Hours (Table) 05/26/22 16:43 Blood Culture - Preliminary Blood No Growth after 48 hours 05/26/22 19:00 Gram Stain - Preliminary Back Wound Culture - Preliminary Gram Neg Bacilli Assessment and Plan Assessment: The patient was examined in the ICU. She is on the vent and sedated, but able to open her eyes. Per nursing staff, her right flank wound has been draining a large amount of bloody drainage though out the night and the dressing has been reinforced. She is on Levophed. She is afebrile, and tachycardic with a heart rate of 108 bpm. WBC 7.3, creatinine 3.59. Preliminary wound cultures growing gram negative bacilli. Patient also have a positive blood culture with staph epi has been finalized with staphylococcus hemolyticus. Antibiotics per ID. (1) Perinephric abscess Current Visit: Yes Status: Acute Code(s): N15.1 - RENAL AND PERINEPHRIC ABSCESS SNOMED Code(s): 12433196 Plan: - Continue antibiotics per ID's recommendation - Monitor creatinine - Maintain Rosado catheter until hemodynamically stable - Will repack wound tomorrow - Continue supportive care Thank you for this consultation Impression and plan of care have been directed as dictated by the signing physician. Danna Bernal nurse practitioner acting as scribe for signing physician. Danna Bernal [facility] [id number] Email: [email or web address] The patient has been examined by me. THe chart has been reviewed. The abscess has been controlled. She will require extended wound care. I concur with the above mentioned note. Aubrey Moore MD
--- NOTE | 2022-05-29 08:48 | P.PN ---
Subjective Progress Note Date: 05/29/22 I'm seeing this patient in new consultation today 05/22/2022 in the intensive care unit after suspected cardiac arrest in the emergency room. Patient is a 37-year-old white female with multiple significant comorbidities including myocardial infarction, diabetes mellitus type 2, chronic kidney disease, hypothyroidism, anemia, frequent urinary tract infections with ESBL producing E. coli, CVA, pancreatitis, cognitive delay, DVT, gastric bypass. Patient does have a public guardian is a poor historian. Patient did have a recent prolonged hospital admission in January, for acute hypoxic respiratory failure related to CHF exacerbation versus pneumonia. Patient was brought in yesterday afternoon for right flank pain. An abdominal and pelvis CT without contrast done yesterday showed an 8.2 cm mass within the region of the right kidney. The previously atrophic kidney was enlarged with perinephric stranding. There was soft tissue density subcutaneous and deep tissues the right flank at the level of enlarged kidney. There was small amount of air present within the region. Ecchymosis extended throughout the right flank to the thigh. Correlation for hematoma was recommended. While in the emergency room, the patient became unresponsive and a CODE BLUE was activated. The presenting rhythm was PEA. Patient was successfully resuscitated after 1 round of CPR and 1 amp of epinephrine with an estimated down time of 3 minutes. She did not require intubation. She was hypotensive and given 1 L normal saline bolus. She did require a norepinephrine infusion, currently running at 0.1 mics per kg per minute, through a right IJ triple-lumen central line catheter. Patient is currently resting comfortably on 4 L nasal cannula, in no acute distress. Patient is oxygenating at near 100%. Post resuscitation chest x-ray showed no acute cardiopulmonary process. The patient's right flank area has extensive soft tissue edema, no obvious bruising or ecchymosis. The area is tender to palp ation. A follow-up CBC showed a hemoglobin of 6.7, hematocrit 22.8, WBC 16, platelets 577,000. The patient was transfused 1 unit PRBC. Patient's BMP shows sodium 135, potassium 3.6, chloride 104, serum CO2 19, P1 57, creatinine chronically elevated at 3.46, glucose 137. Patient's lactic acid level was elevated at 2.9. Patient did receive a dose of Rocephin. She has been intermittently febrile with a T-max of 100.3F. Troponin was negative 1. NT proBNP was mildly elevated at 1720. Vital signs are stable. Patient is in the intensive care unit for closer monitoring. The patient is seen today 05/23/2022 in follow-up in the intensive care unit. She is currently awake and alert. Resting fairly comfortably in bed. She is maintaining O2 saturations up to 100% on 4 L/m per nasal cannula. No IV fluids currently. She has received 1 unit of packed red blood cells this admission. Current hemoglobin 8.5. Platelets 387. White count 13.3. Sodium 133. Potassium 3.5. Bicarb 19. BUN 60. Creatinine 3.92. Glucose 187. Urine positive for moderate bacteria and many white blood cells. Blood cultures positive for coag-negative staph. Urine culture pending. She is currently on daptomycin and Zosyn. ID service is on the case. She has been seen by urology regarding the right flank mass. Definitive diagnosis would require a CT-guided biopsy/aspiration. They feel they hemoglobin drops in the size of the per P nephrectomy mass increases it would be consistent for enlarging hematoma and may need transfer to a tertiary care center for right renal arterial embolization. The patient is seen today 05/24/2022 in follow-up in the intensive care unit. She is currently resting fairly comfortably in bed. Awake and alert. She was transferred out of the ICU yesterday but brought back to the ICU early this morning for hypotension. She is maintaining good O2 saturations in the 90s on 2 L/m per nasal cannula. She has normal saline at KVO. TSH and cortisol levels were within normal limits. Metoprolol is placed on hold. Patient did not require norepinephrine thus far. Initial blood cultures positive for coag- negative staph follow-up blood cultures revealing no growth. Urine culture no growth. White count 15.1. Hemoglobin 8.0. Platelets 386. Sodium 136. Potas sium 3.9. Bicarb 18. BUN 62. Creatinine 3.9. TSH 1.68. Cortisol level 30. She remains on Zosyn and daptomycin currently. The patient is seen today 05/25/2022 in follow-up in the intensive care unit. She is currently awake and alert in no acute distress. Continue O2 saturations up to 100% on 3 L/m nasal cannula. Currently down to 2 L. She is denying any worsening shortness of breath, cough or congestion. She is asking to go home. Computed tomography scan of the abdomen reveals a right renal mass with perinephric soft tissue component as well as soft tissue in the right subcutaneous flank region. The findings could be posttraumatic in the appropriate clinical setting and reflect renal edema with perinephric and subcutaneous hematoma versus infiltrative mass such as sarcoma renal cell carcinoma is not excluded. She is status post 1 unit of packed red blood cells this admission. Follow-up blood cultures reveal no growth. Urine culture revealed no growth. White count 13.8. He was 7.9. Platelets 434. Sodium 138. Potassium 3.8. Bicarb 18. BUN 64. Creatinine 3.94. Glucose 89. She is continued on daptomycin. Oral diuretics. Sodium bicarb tablets. The patient is seen today 05/26/2022 in follow-up on the regular medical floor. She is currently resting comfortably in bed. Awake and alert in no acute distress. Maintaining good O2 saturations in the 90s on room air. She is status post 1 unit of packed red blood cells this admission. Yesterday's hemoglobin was 7.9. Today's hemoglobin is pending. Blood cultures are positive for staph schleiferi SS, Staphylococcus hemolyticus from 05/21/2022. Blood culture from 05/23/2022 revealed no growth. Urine culture revealed no growth. Blood glucose 108. She is currently on daptomycin. The patient is seen today 05/27/2022 in follow-up on the regular medical floor. She is currently resting comfortably in bed. Awake and alert in no acute distress. Continues to maintain O2 saturations in the 90s on room air. She's afebrile. Hemodynamically stable. She is now thinking that she did take a fall while at current medical [place]. Hurting her back. The plan is for follow-up computed tomography scan to evaluate the right kidney mass versus hematoma in 4- 6 weeks. Hemoglobin has remained stable at 7.9. Today's labs are pending. Follow-up blood cultures are revealing no growth. She remains on ceftriaxone per ID services. Continued on sodium bicarb tablets. Most recent bicarb 17. BUN 67. Creatinine 4.07. Blood sugar 101. I am reevaluating this patient today 05/28/2022 in follow-up on the general medical floor. Patient is currently resting in bed, on 2 L nasal cannula, in no acute distress. No significant changes in patient's status. No new labs from today. Labs were repeated yesterday, and the patient's CBC shows a WBC count of 7.2, hemoglobin stable at 7.7, hematocrit 26.9, platelets 382,000. Patient's BMP from yesterday shows sodium 137, potassium 3.9, chloride 108, serum CO2 13, BUN 67, creatinine down to 3.9, glucose 193. D5W with 0.45% saline infusing at 100 mL per hour. Patient is receiving sodium bicarbonate tabs. Patient has remained afebrile. Continues to be covered on Rocephin. Procalcitonin levels pending. Blood pressure stable on the Midodrine. Vital signs are stable. On 05/29/2022, the patient is being seen for a follow-up. The patient was taken to the operating room yesterday. The patient had a right renal abscess. Open exploration with drainage of the large right perirenal abscess was done along with debridement of the necrotic tissue. As such, the patient is postop day #1. Estimated blood loss was only 50 mL. This woman is currently intubated on a mechanical ventilator. The primary cultures from the abscess is showing gram- negative bacillus and the patient is currently covered with IV cefepime. Noted the patient was septic. Her blood pressures remain soft and currently is on norepinephrine running at 0.02 mcg/kg/m. She remains intubated on a mechanical ventilator. This morning, he is on propofol running at 25 mcg/kg/m. The patient is adequately sedated at this point in time. She is on assist-control mode of mechanical ventilation at the rate of 16, tidal volume of 400, FiO2 of 30% with a PEEP of 5. The blood gases showed pH of 7.25 with a pCO2 of 39 and pO2 of 129. The chest x-ray from this morning shows adequate positioning of the orotracheal tube. The patient also has an orogastric tube in place. The x-rays essentially clear. As such, the blood gas is most consistent with metabolic acidosis. On her blood work, the serum bicarbs of 15 and a sodium level is at 135 and the patient has a non-anion gap metabolic acidosis as a gap is at 13. WBC count at 7.3 with a hemoglobin of 8.0. Note that her white cell count hasn't progressively improving. Her pro calcitonin level was at 4.15 at the time of admission and a drop down to 2.3. IV fluids are currently running in the form of D5 half-normal saline at the rate of 100 mL an hour. Surgical sites over the right flank area is saturated. Extremities are warm and pulses are present in all 4 extremities. Objective - Vital Signs Vital signs: Vital Signs Temp 97.7 F 05/29/22 08:00 Pulse 108 H 05/29/22 08:00 Resp 16 05/29/22 08:00 BP 115/56 05/29/22 08:00 Pulse Ox 100 05/29/22 08:00 FiO2 30 05/29/22 08:00 Intake & Output 05/28/22 05/29/22 05/29/22 18:59 06:59 18:59 Intake Total 2845 1388.25 362.294 Output Total 281 1046 300 Balance 2564 342.25 62.294 Weight 107 kg Intake: IV 400 1100 200 Dextrose 5%-0.45% NaCl 1, 1100 200 000 ml @ 100 mls/hr IV . Q10H [facility] Rx#:[id number] Intake, IV Titration 2445 288.25 162.294 Amount Cefepime 2 gm In Sodium 100 Chloride 0.9% 100 ml @ 25 mls/hr IVPB Q12HR [facility] Rx #:[id number] Dextrose 5%-0.45% NaCl 1, 400 100 000 ml @ 100 mls/hr IV . Q10H [facility] Rx#:[id number] Lactated Ringers 1,000 ml 2000 @ 0 mls/hr IV .[facility] Rx#:[id number] Norepinephrine 4 mg In 62.294 Sodium Chloride 0.9% 250 ml @ 0.03 MCG/KG/MIN 11. 43 mls/hr IV .[id number] [facility] Rx#:[id number] propofoL 1,000 mg In 45 188.25 Empty Bag 1 bag @ 15 MCG/ KG/MIN 9 mls/hr IV . [id number] [facility] Rx#:[id number] Output: Urine 260 1045 300 Stool 1 1 Estimated Blood Loss 20 Other: Voiding Method Indwelling Catheter Indwelling Catheter Indwelling Catheter External Catheter # Voids 1 - Exam GENERAL EXAM: Alert, obese female, currently intubated on a mechanical ramon tilator. Orogastric and oral tracheal tube are both in place. HEAD: Normocephalic and atraumatic EYES: Normal reaction of pupils, equal size. NOSE: Clear with pink turbinates. THROAT: No erythema or exudates. NECK: No masses, no JVD. CHEST: No chest wall deformity. LUNGS: Equal air entry with no crackles, wheeze, rhonchi or dullness. On 2 L nasal cannula. No conversational dyspnea or accessory muscle use. CVS: S1 and S2 normal with no audible murmur, regular rhythm. No extra heart sounds ABDOMEN: No hepatosplenomegaly, active bowel sounds, no guarding or rigidity. The patient has a surgical 1 site and the dressing is quite saturated. Bowel sounds are hypoactive. No direct tenderness or rebound tenderness or guarding SPINE: No scoliosis or deformity SKIN: No rashes. Generalized pallor. There is extensive soft tissue swelling on the right flank area. No bruising or ecchymosis. CENTRAL NERVOUS SYSTEM: No focal deficits, tone is normal in all 4 extremities. The patient is currently sedated on propofol. EXTREMITIES: There is mild bilateral nonpitting edema of the lower extremities. No clubbing, or cyanosis. Peripheral pulses are intact. - Labs CBC & Chem 7: 05/29/22 03:48 05/29/22 03:48 Labs: Abnormal Lab Results - Last 24 Hours (Table) 05/28/22 05/28/22 05/28/22 Range/Units 05:47 11:22 13:18 RBC (3.80-5.40) m/uL Hgb (11.4-16.0) gm/dL Hct (34.0-46.0) % MCHC (31.0-37.0) g/dL RDW (11.5-15.5) % Lymphocytes # (1.0-4.8) k/uL ABG pH (7.35-7.45) ABG pO2 (83-108) mmHg ABG HCO3 (21-25) mmol/L ABG Total CO2 (19-24) mmol/L ABG O2 Saturation (94-97) % Sodium (137-145) mmol/L Potassium (3.5-5.1) mmol/L Carbon Dioxide (22-30) mmol/L BUN (7-17) mg/dL Creatinine (0.52-1.04) mg/dL Glucose (74-99) mg/dL POC Glucose (mg/dL) 155 H 131 H (70-110) mg/dL Procalcitonin 2.30 H (0.02-0.09) ng/mL 05/28/22 05/28/22 05/29/22 Range/Units 13:56 17:25 01:06 RBC (3.80-5.40) m/uL Hgb (11.4-16.0) gm/dL Hct (34.0-46.0) % MCHC (31.0-37.0) g/dL RDW (11.5-15.5) % Lymphocytes # (1.0-4.8) k/uL ABG pH 7.24 L (7.35-7.45) ABG pO2 226 H (83-108) mmHg ABG HCO3 16 L (21-25) mmol/L ABG Total CO2 18 L (19-24) mmol/L ABG O2 Saturation 100.0 H (94-97) % Sodium (137-145) mmol/L Potassium (3.5-5.1) mmol/L Carbon Dioxide (22-30) mmol/L BUN (7-17) mg/dL Creatinine (0.52-1.04) mg/dL Glucose (74-99) mg/dL POC Glucose (mg/dL) 211 H 189 H (70-110) mg/dL Procalcitonin (0.02-0.09) ng/mL 05/29/22 05/29/22 05/29/22 Range/Units 03:48 03:48 05:57 RBC 3.07 L (3.80-5.40) m/uL Hgb 8.0 L (11.4-16.0) gm/dL Hct 26.4 L (34.0-46.0) % MCHC 30.2 L (31.0-37.0) g/dL RDW 19.3 H (11.5-15.5) % Lymphocytes # 0.8 L (1.0-4.8) k/uL ABG pH (7.35-7.45) ABG pO2 (83-108) mmHg ABG HCO3 (21-25) mmol/L ABG Total CO2 (19-24) mmol/L ABG O2 Saturation (94-97) % Sodium 135 L (137-145) mmol/L Potassium 3.4 L (3.5-5.1) mmol/L Carbon Dioxide 15 L (22-30) mmol/L BUN 61 H (7-17) mg/dL Creatinine 3.59 H (0.52-1.04) mg/dL Glucose 158 H (74-99) mg/dL POC Glucose (mg/dL) 202 H (70-110) mg/dL Procalcitonin (0.02-0.09) ng/mL 05/29/22 Range/Units 05:59 RBC (3.80-5.40) m/uL Hgb (11.4-16.0) gm/dL Hct (34.0-46.0) % MCHC (31.0-37.0) g/dL RDW (11.5-15.5) % Lymphocytes # (1.0-4.8) k/uL ABG pH 7.25 L (7.35-7.45) ABG pO2 129 H (83-108) mmHg ABG HCO3 17 L (21-25) mmol/L ABG Total CO2 18 L (19-24) mmol/L ABG O2 Saturation 98.9 H (94-97) % Sodium (137-145) mmol/L Potassium (3.5-5.1) mmol/L Carbon Dioxide (22-30) mmol/L BUN (7-17) mg/dL Creatinine (0.52-1.04) mg/dL Glucose (74-99) mg/dL POC Glucose (mg/dL) (70-110) mg/dL Procalcitonin (0.02-0.09) ng/mL Microbiology - Last 24 Hours (Table) 05/26/22 16:43 Blood Culture - Preliminary Blood No Growth after 48 hours 05/26/22 19:00 Gram Stain - Preliminary Back Wound Culture - Preliminary Gram Neg Bacilli Assessment and Plan Plan: PEA cardiac arrest witnessed with an estimated 3 minute downtime. Patient did receive CPR and 1 amp of epinephrine. Hypotension was treated with 1 L normal saline bolus, and started on a norepinephrine infusion. The patient had recovered and was off norepinephrine. Transferred out of the intensive care unit on 05/23/2022. 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 Did not require any norepinephrine at this point. Add midodrine 10 mg 3 times a day. Hold metoprolol. Cortisol level 30. TSH normal. Now seen on the regular medical floor. Hemodynamically stable. Right perinephric abscess, likely secondary to gram-negative bacteria. The patient underwent open exploration and drainage of the abscess with debridement of the necrotic tissue. The patient had her surgery on 05/28/2022 and the patient is currently postop day #1. The patient remains intubated on a mechanical ventilator. Right flank pain currently under investigation. An abdominal and pelvis CT without contrast showed an 8.2 cm mass within the expected region of the right kidney. There was an enlarged right kidney with perinephric stranding. There was soft tissue density in the subcutaneous and did tissues the right flank at the level of the enlarged kidney. Septic shock secondary to above, currently on low-dose pressors, with diminished level of consciousness postop and the patient was kept intubated on mechanical ventilator following her surgery. Non-anion gap metabolic acidosis, the patient remains intubated on a mechanical ventilator. She is still quite acidotic on today's blood work with a serum bicarb of 15. Lactic acidosis secondary to above Anemia with a hemoglobin of 6.7 gm/dl status post transfusion of 1 unit PRBC. Current hemoglobin 8.0. Patient does have baseline anemia of chronic disease. Acute on chronic kidney disease, creatinine is improving and is down to 3.59 Diabetes mellitus type 2 Hypothyroidism History of CVA History of cognitive delay and memory impairment History of gastric bypass Plan: Keep the patient on a mechanical ventilator Give 2 amp of sodium bicarb IV push and started the patient on a D5 bicarb infusion at the rate of 1 25 mL an hour The patient is still quite acidotic. As such, we'll delay her extubation today. Continue IV cefepime Awaiting further cultures from the surgical once, currently cultures are showing gram-negative bacillus Pro calcitonin level is improving White cell count is improving Creatinine is improving slowly Urology is on the case Repeat another blood gases at around 3 PM today and will consider giving this patient some sedation holiday and weaning trial if there is improvement in her weaning parameters. Wean off pressors and discontinue We'll continue to follow Critical care evaluation that was done in more than 30 minutes. Time with Patient: Greater than 30
[2022-05-29] MEDS ORDERED: SODIUM BICARB 8.4% 50 ML SYR (1 MEQ/ML) IV STA (09:01)
--- NOTE | 2022-05-29 09:21 | XR ---
EXAMINATION TYPE: XR chest 1V DATE OF EXAM: 05/29/2022 COMPARISON: 05/22/2022 HISTORY: Intubated TECHNIQUE: Single frontal view of the chest is obtained. FINDINGS: There is an endotracheal tube terminating approximately 3 cm from the patricia, orogastric tube which e xtends past the diaphragm to terminate within the proximal gastric fundus with side hole likely termi nating at the GE junction, and multiple overlying cardiac leads. The heart size and cardiothymic silh ouette are unchanged. There is redemonstration of slight elevation of the right hemidiaphragm, which is stable when compared to previous examination. There are a few linear opacity of the left lung base , compatible with atelectasis. There are low inspiratory lung volumes. There is no pneumothorax. IMPRESSION: Hypoventilatory changes with minimal left basilar atelectasis.
[2022-05-29] MEDS: METOPROLOL SUCCINATE (ER) 50 MG TAB.ER.24H PO SCH (09:35)
[2022-05-29] MEDS: DEXTROSE 5% IN WATER 1,000 ML with SODIUM BICARB (1 MEQ/ML) 150 ML IV SCH ×2 (09:36→17:43)
[2022-05-29 11:28] LABS: Glucose,Whole Blood 173 mg/dL (70-110)
[2022-05-29] MEDS: MEROPENEM 1 GM in SODIUM CHLORIDE 0.9% 100 ML IVPB SCH ×2 (15:09→20:15)
--- NOTE | 2022-05-29 17:15 | P.PN ---
Progress Note - Text Progress Note Date: 05/29/22 Chief Complaint: Right flank pain 37-year-old female with a known history of CVA with right-sided weakness, cognitive impairment, history of gastric bypass surgery, history of DVT on eliquis. oxygen at 2 L via nasal cannula since her COVID infection. CKD with baseline creatinine level around 3.0. resident of [facility], [facility] - long-term resident. known history of irregular vaginal bleeding - polycystic ovarian syndrome.. multiple DVTs in the past. Following gastric bypass surgery patient had a stroke and myocardial infarction. - resulted in cognitive impairment. poor short-term memory. - bedbound. contracture of the left hand and foot drop on the right leg. history of hyperlipidemia anxiety hypertension hypothyroid diabetes. Patient has a legal guardian Chandrika Special note: Patient always request more pain medications. But if explained she that this leads to her mental status changing and she is finding the same. This should be kept in mind when she asked for pain medications repeatedly. Will need to be given when she is uncomfortable. Once explained she becomes rather comfortable. Presented to the ER right flank pain and fever. For 2 days. Did have ecchymosis along the right flank. Hemoglobin was noted to be 6.7 did receive 1 unit of blood. In the ER patient had a cardiac arrest felt to be PEA as he suddenly became unresponsive. He received chest compression and spontaneous r eturn of circulation. And moved to the ICU. Has baseline memory impairment. Patient is started on ceftriaxone in the ER. Patient was then put on levo fed drip. Patient overnight was on BiPAP. This morning down to 2 L. 05/23/2022: Patient was seen this morning the ICU. Decreased in ecchymosis on the right flank. Indurated area. Tender. For pain to use K pad. Discussed with the nurse. Explained to the patient about pain. IV daptomycin. Per urology if further decrease in hemoglobin and enlarging right renal fossa that would require renal artery embolization at a tertiary center. Positive blood culture likely contaminant. Had some lunch 05/24/2022: ICU. Laying in bed. 2 L nasal cannula. Eating fair. Patient wanted stronger pain medications. K pad. She can have a home dose of [place]. Explained. Discussed with ID-the procedures repeat computed tomography scan to look at the size of the hematoma. On IV daptomycin. Zosyn has been discontinued. Patient was transferred to medical floor yesterday. So now after vacation became less responsive became hypotensive. Brought back to the ICU. With fluid bolus the blood pressure came back up. May 25: Patient moved to the medical floor. Has been refusing to eat. IV daptomycin. May 26: Patient not eating this morning again. Spoke to the nurse to encourage the patient to eat. Done on the lights and opened the drapes Patient is sleepy. We'll make the morning dose of Klonopin when necessary. Discussed with patient. Much improved pain in the right flank. ID is ordered IR to drain the possible infected hematoma on Saturday. Antibiotics being changed to Rocephin 2 g daily May 27: Patient started draining pus from the right flank area. It is felt that infected hematoma, has come through. Discussed with ID. He contacted Dr. brar for possible further drainage. Await further input. Afebrile. IV ceftriaxone May 28: So the patient this morning. He to patient to the OR by Dr. Zelaya. Right flank was exposed that was significant necrotic tissue draining meme pus. About a liter was drained. Clean with hydrogen peroxide. Wound was packed with Betadine soaked Kerlix. Sent to ICU May 29: ICU. On the vent FiO2 30 PEEP of 5. Started on levo fed 3 AM. Dressing is soaking easily with serosanguineous discharge. On IV meropenem. Active Medications Acetaminophen (Acetaminophen Tab 325 Mg Tab) 650 mg PO Q6HR PRN PRN Reason: Mild Pain or Fever > 100.5 Last Admin: 05/28/22 03:05 Dose: 650 mg Hydrocodone Bitart/Acetaminophen (Hydrocodone/Apap 7.5-325mg 1 Each Tab) 1 each PO Q8H PRN PRN Reason: Pain Last Admin: 05/29/22 16:07 Dose: 1 each Albuterol/Ipratropium (Ipratropium-Albuterol 3 Ml Neb) 3 ml INHALATION RT-Q4H [facility] Last Admin: 05/29/22 15:41 Dose: 3 ml Atorvastatin Calcium (Atorvastatin 20 Mg Tab) 20 mg PO HS@1999 [facility] Last Admin: 05/28/22 20:15 Dose: 20 mg Baclofen (Baclofen 10 Mg Tab) 10 mg PO HS@1999 [facility] Last Admin: 05/28/22 20:15 Dose: 10 mg Chlorhexidine Gluconate (Chlorhexidine Gluconate 15 Ml Cup) 15 ml MUCOUS MEM BID [facility] Last Admin: 05/29/22 07:36 Dose: 15 ml Cholecalciferol (Cholecalciferol 25 Mcg (1000 Iu) Tablet) 75 mcg PO DAILY [facility] Last Admin: 05/29/22 07:36 Dose: 75 mcg Clomipramine HCl (Clomipramine 50 Mg Cap) 50 mg PO HS@1999 [facility] Last Admin: 05/28/22 22:25 Dose: 50 mg Clonazepam (Clonazepam 0.5 Mg Tab) 0.25 mg PO HS [facility] Last Admin: 05/28/22 20:14 Dose: Not Given Clonazepam (Clonazepam 0.5 Mg Tab) 0.25 mg PO DAILY PRN PRN Reason: Anxiety Last Admin: 05/28/22 03:05 Dose: 0.25 mg Darbepoetin Kurtis (Darbepoetin Kurtis 25 Mcg/0.42 Ml Syringe) 25 mcg SQ MO@2200 [facility] Last Admin: 05/29/22 01:40 Dose: 25 mcg Dextrose/Water (Dextrose 50% Syringe 50 Ml) 25 ml IVP PER PROTOCOL PRN; Protocol PRN Reason: Hypoglycemia Dextrose/Water (Dextrose 50% Syringe 50 Ml) 50 ml IVP PER PROTOCOL PRN; Protocol PRN Reason: Hypoglycemia Famotidine (Famotidine 20 Mg Tab) 20 mg PO DAILY [facility] Last Admin: 05/29/22 07:37 Dose: 20 mg Ferrous Sulfate (Ferrous Sulfate 325 Mg Tab) 325 mg PO BID@0800,1999 [facility] Last Admin: 05/29/22 07:48 Dose: Not Given Fluoxetine HCl (Fluoxetine Hcl 20 Mg Cap) 20 mg PO DAILY [facility] Last Admin: 05/29/22 07:36 Dose: 20 mg Furosemide (Furosemide 80 Mg Tab) 80 mg PO DAILY [facility] Last Admin: 05/29/22 07:36 Dose: 80 mg Propofol 1,000 mg/ IV Solution 100 mls @ 9 mls/hr IV .Q11H7M [facility]; Protocol Last Admin: 05/29/22 11:34 Dose: 25 mcg/kg/min, 15 mls/hr Norepinephrine Bitartrate 4 mg (/ Sodium Chloride) 254 mls @ 11.43 mls/hr IV .[id number] [facility]; Protocol Last Admin: 05/29/22 16:07 Dose: Not Given Sodium Bicarbonate 150 ml/ (Dextrose/Water) 1,150 mls @ 125 mls/hr IV .Q9H12M [facility] Last Admin: 05/29/22 09:36 Dose: 125 mls/hr Meropenem 1 gm/ Sodium (Chloride) 100 mls @ 33.3 mls/hr IVPB Q12HR [facility]; Protocol Last Admin: 05/29/22 15:09 Dose: 33.3 mls/hr Insulin Aspart (Insulin Aspart (Novolog) 100 Unit/Ml Vial) 0 unit SQ Q6HR [facility]; Protocol Last Admin: 05/29/22 11:31 Dose: 2 unit Insulin Detemir (Insulin Detemir (Levemir) 100 Unit/Ml Syr) 20 unit SQ [facility] Last Admin: 05/28/22 22:24 Dose: 20 unit Levothyroxine Sodium (Levothyroxine 25 Mcg Tab) 25 mcg PO HS@1999 [facility] Last Admin: 05/28/22 20:15 Dose: 25 mcg Melatonin (Melatonin 5 Mg Tablet) 5 mg PO HS@1999 [facility] Last Admin: 05/28/22 20:13 Dose: Not Given Metoprolol Succinate (Metoprolol Succinate (Er) 50 Mg Tab.Er.24h) 50 mg PO DAILY [facility] Last Admin: 05/29/22 09:35 Dose: Not Given Midodrine (Midodrine 5 Mg Tab) 10 mg PO AC-TID [facility] Last Admin: 05/29/22 16:07 Dose: 10 mg Miscellaneous Information (Potassium Replacement Protocol 1 Each Misc) 1 each MISCELLANE DAILY PRN; Protocol PRN Reason: Per Protocol Miscellaneous Information (Magnesium Replacement Protocol 1 Each Misc) 1 each MISCELLANE DAILY PRN; Protocol PRN Reason: Per Protocol Multivitamins (Multivitamins, Thera 1 Each Tab) 1 each PO DAILY [facility] Last Admin: 05/29/22 07:36 Dose: 1 each Naloxone HCl (Naloxone 0.4 Mg/Ml 1 Ml Vial) 0.2 mg IV Q2M PRN PRN Reason: Opioid Reversal Non-Formulary Medication (Norethindrone [Chani]) 0.35 mg PO DAILY [facility] Last Admin: 05/29/22 07:48 Dose: Not Given Ondansetron HCl (Ondansetron 4 Mg/2 Ml Vial) 4 mg IVP Q8HR PRN PRN Reason: Nausea And Vomiting Polyethylene Glycol (Polyethylene Glycol 3350 17 Gm Powd.Pack) 17 gm PO DAILY [facility] Last Admin: 05/29/22 07:49 Dose: Not Given Senna/Docusate Sodium (Sennosides-Docusate Sodium 1 Each Tab) 2 each PO HS@1999 [facility] Last Admin: 05/28/22 20:14 Dose: Not Given Sodium Bicarbonate (Sodium Bicarbonate Tab 650 Mg Tab) 650 mg PO BID@ [facility] Last Admin: 05/29/22 07:53 Dose: 650 mg Past medical history to include: Stroke resulting in decreased memory (contracture, following, in 2015 following surgery, DVT, [place], gastric bypass in 2016, anxiety depression, muscle spasms, irregular menstrual bleeding, hypertension, hypothyroid chronic pain in the hands / back. Irregular vaginal bleeding-polycystic ovary syndrome. Multiple DVTs in the past. Following gastric bypass surgery patient had a stroke and myocardial infarction. Resulting in cognitive impairment. Hyperlipidemia, anxiety, hypertension, hypothyroid Social history: long-term resident of [facility], no smoking. Did smoke marijuana in high school. Pretty much bedbound. Has a legal guardian Chandrika Physical examination: VITAL SIGNS: 97.7, 100, 20, 90 3126, 99% on the vent GENERAL: Reclining in bed,, sedated EYES: Pupils equal. Conjunctiva pale. HEENT: External appearance of nose and ears normal, oral cavity grossly normal. NECK: JVD unable to assess masses not palpable. HEART: Heart sounds are muffled; no edema. LUNGS: Respiratory rate normal; distant breath sounds. ABDOMEN: Soft, dressing over the right flank, liver spleen not palpable, no masses palpable. PSYCH: Sedated NEUROLOGICAL: [Cranial nerves grossly intact; no facial asymmetry, contracture of the left hand. Right Foot drop INVESTIGATIONS, reviewed in the clinical context: May 29: White count 7.3 hemoglobin 8 platelets 303 potassium 3.4 BUN 61 creatinine 3.5 May 28: Procalcitonin 2.3 May 27: White count 7.2 hemoglobin 7.7 potassium 3.9 creatinine 3.9 May 26: WBC 10.9 hemoglobin 7.9 platelets 453 potassium 3.5. 67 creatinine 4.07 May 25: White count 13.8 hemoglobin 7.9 platelets 434 potassium 3.8 BUN 64 creatinine 3.94 May 24: White count 15.1 hemoglobin 8 platelets 386 potassium 3.9 BUN 62 creatinine 3.98 troponin I less than 0.012, TSH 1.6 cortisol 30 Blood cultures [May 21]. Staphylococcus hemolyticus. Staphylococcusschleiferi. Repeat blood cultures negative May 23: White count 13.3 hemoglobin 8.5 platelets 327 potassium 3.5. An 60 creatinine 3.9 to 05/22/2022: White count 14.8 hemoglobin 8.4 platelets 474, sodium 137 creatinine 3.49 UA: Leukoesterase large. WBC 182 nitrate negative Admission labs: White count 16.1 hemoglobin 6.7 platelets 577 sodium 135 potassium 3.6 BUN 57 creatinine 3.46 lactic acid 2.[address] abdomen pelvis without contrast: Right adrenal gland not identified. Gallbladder surgically absent. 8.2 cm mass within the expected region of the right kidney. This was previously an atrophic kidney. That was enlarged. Perinephric stranding. Soft tissue density in the posterior right flank is a level of this right kidney. Small amount of air is present in the region of the right kidney. Ecchymosis appears to extend to the flank to the thigh. Chest x-ray film personally reviewed by me-infiltrate versus edema possible. EKG tracing personally reviewed by me-heart rate 108. Sinus tachycardia Renal ultrasound: Masslike area within the lower pole of the kidney in the right. Circumferentially wall thickening of the sigmoid colon. Assessment plan: -Infected hematoma at right renal bed and patient on eliquis - atrophic kidney previously. opened outwardly draining.: Slow to respond Blood cultures Staphylococcus hemolytic this... May 28: Meme pus was drained from the perinephric area. Iodine-soaked gauze was placed. Change to IV cefepime -Sepsis, POA from infected hematoma -PEA cardiac arrest witnessed lasting about 3 minutes. Patient did receive 1 amp of epinephrine and CPR. Fluid bolus and levo fed. - discontinued -Combination of septic shock and hypovolemic shock from bleeding./Hematoma. Better Fluid resuscitation, IV levo fed-discontinued. IV antibiotics -Acute hypoxic respiratory failure from combination of obesity hypoventilation, questionable pneumonia. Now on ventilator assist -Chronic hypoxic respiratory failure On 2 L of nasal cannula at baseline -Chronic medical debility, patient is not ambulatory -Anemia of chronic kidney disease Hemoglobin was 7.3 on February 2022 - obesity BMI 36.7 -Chronic left hand contracture, right foot drop -Chronic multiple DVTs eliquis 2.5 mg held -Hyperlipidemia Lipitor 20 mg daily at bedtime -Muscle spasm Baclofen 10 mg daily at bedtime -Essential hypertension Toprol-XL currently held because of low blood pressure -Hypothyroid Synthroid 25 g at bedtime -Diabetes mellitus type 2, chronic on insulin Levemir 20 mg daily at bedtime. Follow Accu-Cheks -Chronic pain in the left hand and lower back. [place] 7.5 every 12 when necessary -Anxiety depression Klonopin 0.5 mg daily at bedtime Prozac 20 mg daily-outpatient -Bilateral nonobstructing renal calculi,-asymptomatic -Chronic kidney disease stage 4 from obstructive uropathy with a history of left ureteral stent. Creatinine 3.26 on 02/19/2022 -Chronic Right renal atrophy -Full code IV meropenem IV levo fed. Intubated. Dressing changes per urology.
[2022-05-29 17:46] LABS: Glucose,Whole Blood 173 mg/dL (70-110)
--- NOTE | 2022-05-29 18:46 | CDI ---
Documentation Clarification Form Date: 05/29/2022 6:28:49 PM From: Jane Crook RN, CCDS Email: [email or web address] Admit Date: 05/22/2022 4:45:00 AM Patient Name: Radha Christensen Visit Number: [id number] Discharge Date: ATTENTION: The Clinical Documentation Specialists (CDI) and [facility] Coding Staff appreciate your assistance in clarifying documentation. Please respond to the clarification below the line at the bottom and electronically sign. The CDI & [facility] Coding staff will review the response and follow-up if needed. Please note: Queries are made part of the Legal Health Record. If you have any questions, please contact the author of this message via ITS. Dr. Aubrey Moore, A debridement is documented in the 05/28 procedure note. Additional clarification regarding the procedure is requested. History/Risk Factors: perinephric abscess Clinical Indicators: CT abdomen/pelvis: Soft tissue density in the subcutaneous and deep tissues of the right flank at the level of the enlarged kidney. Small amount of air is present within this region. Ecchymosis appears to extend through the flank to the thigh. Correlate for hematoma. Other etiologies include sarcoma or other neoplasm. Op note: "The right flank was exposed. There is necrotic tissue with drainage of meme pus. I excised the necrotic area which was about 4 x 6 cm. I drained out about a liter. I then irrigated thoroughly the retroperitoneal cavity with half- strength hydrogen peroxide." Treatment: Open exploration with drainage of large right perirenal abscess and debridement of necrotic tissue. Please clarify the type of procedure performed: [ ] Excisional debridement (the removal of necrotic, devitalized tissue or slough by means of cutting away of tissue) [ ] Non-excisional debridement (the removal of necrotic, devitalized tissue or slough by means of flushing, brushing, or washing. (Irrigation) [ ] Other; please specify [ ] Unable to determine Five elements required for accurate and compliant documentation of a debridement: Technique used (e.g., excisional, excised, cutting, brushing, jet lavage etc.) Instrument(s) used (e.g., scalpel, curette, etc.) Nature of the tissue removed (e.g., necrotic, devitalized tissues, non-viable tissue, etc.) Appearance and size of the wound (e.g., down to fresh bleeding tissue, 7cm x 10cm, etc.) Depth of the debridement* (e.g., skin, subcutaneous tissue, fascia, muscle, bone, etc.) MTDD
--- NOTE | 2022-05-29 19:26 | P.PN ---
Subjective Progress Note Date: 05/29/22 Principal diagnosis: Right flank abscess/hematoma and bacteremia Patient is a 37-year-old female with a past medical history significant for CVA TIA DVT morbid obesity history of recurrent UTI patient presenting to the ER with concern for right flank pain, patient did have abnormal CT concerning for increasing mass to the right kidney area , patient has been diagnosed with right perinephric abscess and the patient is status post surgical drainage completed on 05/28/2022 On today's evaluation of that is 05/29/2022, the patient continues to be afebrile, the patient is requiring low-dose pressor support to maintain her blood pressure, patient is currently on the vent and FiO2 is stable at 30%, no significant purulent secretion through the ET already has been reported, patient still has significant drainage from her right flank area per the nursing staff Objective - Vital Signs Vital signs: Vital Signs Temp 97.7 F 05/29/22 12:00 Pulse 95 05/29/22 13:22 Resp 20 05/29/22 12:00 BP 93/66 05/29/22 12:00 Pulse Ox 99 05/29/22 12:00 FiO2 30 05/29/22 12:30 Intake & Output 05/28/22 05/29/22 05/29/22 18:59 06:59 18:59 Intake Total 2845 1388.25 1072.544 Output Total 281 1046 825 Balance 2564 342.25 247.544 Weight 107 kg 107 kg Intake: IV 400 1100 200 Dextrose 5%-0.45% NaCl 1, 1100 200 000 ml @ 100 mls/hr IV . Q10H [facility] Rx#:[id number] Intake, IV Titration 2445 288.25 872.544 Amount Cefepime 2 gm In Sodium 100 Chloride 0.9% 100 ml @ 25 mls/hr IVPB Q12HR [facility] Rx #:[id number] Dextrose 5% in Water 1, 625 000 ml @ 125 mls/hr IV . Q9H12M [facility] with Sodium Bicarb (1 Meq/ml) 150 ml Rx#:[id number] Dextrose 5%-0.45% NaCl 1, 400 100 000 ml @ 100 mls/hr IV . Q10H [facility] Rx#:[id number] Lactated Ringers 1,000 ml 2000 @ 0 mls/hr IV .STK-MED ONE Rx#:[id number] Norepinephrine 4 mg In 62.294 Sodium Chloride 0.9% 250 ml @ 0.03 MCG/KG/MIN 11. 43 mls/hr IV .[id number] [facility] Rx#:[id number] propofoL 1,000 mg In 45 188.25 85.25 Empty Bag 1 bag @ 15 MCG/ KG/MIN 9 mls/hr IV . Q11H7M [facility] Rx#:[id number] Output: Urine 260 1045 825 Stool 1 1 Estimated Blood Loss 20 Other: Voiding Method Indwelling Catheter Indwelling Catheter Indwelling Catheter External Catheter # Voids 1 - Exam GENERAL DESCRIPTION: A middle-aged female intubated on the vent RESPIRATORY SYSTEM: Unlabored breathing , decreased breath sounds at bases HEART: S1 S2 regular rate and rhythm , ABDOMEN: Soft , no tenderness , EXTREMITIES: No edema feet - Labs CBC & Chem 7: 05/29/22 03:48 05/29/22 03:48 Labs: Abnormal Lab Results - Last 24 Hours (Table) 05/28/22 05/29/22 05/29/22 Range/Units 17:25 01:06 03:48 RBC (3.80-5.40) m/uL Hgb (11.4-16.0) gm/dL Hct (34.0-46.0) % MCHC (31.0-37.0) g/dL RDW (11.5-15.5) % Lymphocytes # (1.0-4.8) k/uL ABG pH (7.35-7.45) ABG pO2 (83-108) mmHg ABG HCO3 (21-25) mmol/L ABG Total CO2 (19-24) mmol/L ABG O2 Saturation (94-97) % Sodium 135 L (137-145) mmol/L Potassium 3.4 L (3.5-5.1) mmol/L Carbon Dioxide 15 L (22-30) mmol/L BUN 61 H (7-17) mg/dL Creatinine 3.59 H (0.52-1.04) mg/dL Glucose 158 H (74-99) mg/dL POC Glucose (mg/dL) 211 H 189 H (70-110) mg/dL 05/29/22 05/29/22 05/29/22 Range/Units 03:48 05:57 05:59 RBC 3.07 L (3.80-5.40) m/uL Hgb 8.0 L (11.4-16.0) gm/dL Hct 26.4 L (34.0-46.0) % MCHC 30.2 L (31.0-37.0) g/dL RDW 19.3 H (11.5-15.5) % Lymphocytes # 0.8 L (1.0-4.8) k/uL ABG pH 7.25 L (7.35-7.45) ABG pO2 129 H (83-108) mmHg ABG HCO3 17 L (21-25) mmol/L ABG Total CO2 18 L (19-24) mmol/L ABG O2 Saturation 98.9 H (94-97) % Sodium (137-145) mmol/L Potassium (3.5-5.1) mmol/L Carbon Dioxide (22-30) mmol/L BUN (7-17) mg/dL Creatinine (0.52-1.04) mg/dL Glucose (74-99) mg/dL POC Glucose (mg/dL) 202 H (70-110) mg/dL 05/29/22 Range/Units 11:26 RBC (3.80-5.40) m/uL Hgb (11.4-16.0) gm/dL Hct (34.0-46.0) % MCHC (31.0-37.0) g/dL RDW (11.5-15.5) % Lymphocytes # (1.0-4.8) k/uL ABG pH (7.35-7.45) ABG pO2 (83-108) mmHg ABG HCO3 (21-25) mmol/L ABG Total CO2 (19-24) mmol/L ABG O2 Saturation (94-97) % Sodium (137-145) mmol/L Potassium (3.5-5.1) mmol/L Carbon Dioxide (22-30) mmol/L BUN (7-17) mg/dL Creatinine (0.52-1.04) mg/dL Glucose (74-99) mg/dL POC Glucose (mg/dL) 173 H (70-110) mg/dL Microbiology - Last 24 Hours (Table) 05/26/22 19:00 Anaerobic Culture - Final Back 05/28/22 12:47 Anaerobic Culture - Preliminary Kidney 05/28/22 12:47 Wound Culture - Preliminary Kidney 05/26/22 19:00 Gram Stain - Final Back Wound Culture - Final Klebsiella pneumoniae Proteus mirabilis 05/26/22 16:43 Blood Culture - Preliminary Blood No Growth after 48 hours Assessment and Plan (1) Positive blood culture Current Visit: Yes Status: Acute Code(s): R78.81 - BACTEREMIA SNOMED Code(s): 975408471 (2) Abscess of flank Current Visit: Yes Status: Acute Code(s): L02.211 - CUTANEOUS ABSCESS OF ABDOMINAL WALL SNOMED Code(s): 11682780 Plan: 1patient presented to the hospital with sepsis in this patient who did have a fever elevated white count has been complaining of flank pain with evidence of possible renal abscess/pyelonephritis likely from enteric gram-negative pa thogen. Patient also have a positive blood culture with staph epi has been finalized with staphylococcus hemolyticus, repeat CT did not show any worsening however patient did have spontaneous drainage of this infected hematoma and the patient is status post open drainage of the abscess and debridement of necrotic tissue by urology completed on 05/28/2022 cultures. Currently pending 2the patient initial cultures currently growing ESBL Klebsiella, we will discontinue the cefepime start the patient on meropenem and monitor clinical course closely Time with Patient: Less than 30
[2022-05-29 19:45] LABS: Glucose,Whole Blood 183 mg/dL (70-110)
[2022-05-29] MEDS: clonazePAM 0.5 MG TAB PO SCH (20:14)
[2022-05-29] MEDS: LEVOTHYROXINE 25 MCG TAB PO SCH (20:14)
[2022-05-29] MEDS: SENNOSIDES-DOCUSATE SODIUM 1 EACH TAB PO SCH (20:14)
[2022-05-29] MEDS: ATORVASTATIN 20 MG TAB PO SCH (20:14)
[2022-05-29] MEDS: BACLOFEN 10 MG TAB PO SCH (20:14)
[2022-05-29] MEDS: INSULIN DETEMIR (LEVEMIR) 100 UNIT/ML SYR SQ SCH (20:15)
[2022-05-29] MEDS: MELATONIN 5 MG TABLET PO SCH (20:40)
[2022-05-29] MEDS ORDERED: CEFEPIME 1 GM in SODIUM CHLORIDE 0.9% 50 ML IVPB SCH (21:00)
[2022-05-29 23:28] LABS: Glucose,Whole Blood 195 mg/dL (70-110)
[2022-05-30] MEDS: IPRATROPIUM-ALBUTEROL 3 ML NEB INHALATION SCH ×6 (00:05→21:59)
[2022-05-30] MEDS: INSULIN ASPART (NovoLOG) 100 UNIT/ML VIAL SQ SCH ×5 (00:09→23:59)
[2022-05-30] MEDS: HYDROcodone/APAP 7.5-325MG 1 EACH TAB PO PRN ×2 (03:27→19:35)
[2022-05-30] MEDS: DEXTROSE 5% IN WATER 1,000 ML with SODIUM BICARB (1 MEQ/ML) 150 ML IV SCH (03:31)
[2022-05-30] MEDS: NOREPINEPHRINE 4 MG in SODIUM CHLORIDE 0.9% 250 ML IV SCH (04:31)
[2022-05-30 06:09] LABS: Glucose,Whole Blood 217 mg/dL (70-110)
[2022-05-30 06:57] LABS: Calcium 8.2 mg/dL (8.4-10.2); Potassium 3.6 mmol/L (3.5-5.1)
[2022-05-30 07:00] LABS: Anisocytosis Slight; Basophils % (A) 1 %; Eosinophils # (A) 0.2 k/uL (0-0.7); Eosinophils % (A) 4 %; HCT 24.5 % (34.0-46.0); HGB 7.4 gm/dL (11.4-16.0); Hypochromasia Marked; Lymphocytes # (A) 0.6 k/uL (1.0-4.8); Lymphocytes % (A) 10 %; MCH 25.7 pg (25.0-35.0); MCHC 30.4 g/dL (31.0-37.0); MCV 84.6 fL (80.0-100.0); Mean Platelet Volume 7.6; Microcytosis Slight; Monocytes # (A) 0.4 k/uL (0-1.0); Monocytes % (A) 6 %; Neutrophils # (A) 4.9 k/uL (1.3-7.7); Neutrophils % (A) 76 %; Platelet Count 298 k/uL (150-450); Poikilocytosis Moderate; RBC 2.89 m/uL (3.80-5.40); RDW 19.7 % (11.5-15.5); WBC 6.4 k/uL (3.8-10.6)
[2022-05-30 07:17] LABS: Glucose,Whole Blood 239 mg/dL (70-110)
[2022-05-30] MEDS: CHLORHEXIDINE GLUCONATE 15 ML CUP MUCOUS MEM SCH ×2 (07:43→21:50)
[2022-05-30] MEDS: FLUoxetine HCL 20 MG CAP PO SCH (07:59)
[2022-05-30] MEDS: FERROUS SULFATE 325 MG TAB PO SCH ×2 (07:59→21:49)
[2022-05-30] MEDS: METOPROLOL SUCCINATE (ER) 50 MG TAB.ER.24H PO SCH (07:59)
[2022-05-30] MEDS: CHOLECALCIFEROL 25 MCG (1000 IU) TABLET PO SCH (07:59)
[2022-05-30] MEDS: MULTIVITAMINS, THERA 1 EACH TAB PO SCH (07:59)
[2022-05-30] MEDS: MEROPENEM 1 GM in SODIUM CHLORIDE 0.9% 100 ML IVPB SCH ×2 (07:59→21:50)
[2022-05-30] MEDS: SODIUM BICARBONATE TAB 650 MG TAB PO SCH ×2 (07:59→21:49)
[2022-05-30] MEDS: FUROSEMIDE 80 MG TAB PO SCH (08:00)
[2022-05-30] MEDS: MIDODRINE 5 MG TAB PO SCH ×3 (08:00→17:16)
[2022-05-30] MEDS: FAMOTIDINE 20 MG TAB PO SCH (08:00)
[2022-05-30] MEDS: polyethylene glycoL 3350 17 GM POWD.PACK PO SCH (08:01)
[2022-05-30] MEDS: NON FORMULARY DRUG (Norethindrone [Camila] 0.35 MG Tablet) PO SCH (08:01)
[2022-05-30] MEDS: clonazePAM 0.5 MG TAB PO PRN (09:18)
--- NOTE | 2022-05-30 09:29 | P.PN ---
Subjective Progress Note Date: 05/30/22 I'm seeing this patient in new consultation today 05/22/2022 in the intensive care unit after suspected cardiac arrest in the emergency room. Patient is a 37-year-old white female with multiple significant comorbidities including myocardial infarction, diabetes mellitus type 2, chronic kidney disease, hypothyroidism, anemia, frequent urinary tract infections with ESBL producing E. coli, CVA, pancreatitis, cognitive delay, DVT, gastric bypass. Patient does have a public guardian is a poor historian. Patient did have a recent prolonged hospital admission in January, for acute hypoxic respiratory failure related to CHF exacerbation versus pneumonia. Patient was brought in yesterday afternoon for right flank pain. An abdominal and pelvis CT without contrast done yesterday showed an 8.2 cm mass within the region of the right kidney. The previously atrophic kidney was enlarged with perinephric stranding. There was soft tissue density subcutaneous and deep tissues the right flank at the level of enlarged kidney. There was small amount of air present within the region. Ecchymosis extended throughout the right flank to the thigh. Correlation for hematoma was recommended. While in the emergency room, the patient became unresponsive and a CODE BLUE was activated. The presenting rhythm was PEA. Patient was successfully resuscitated after 1 round of CPR and 1 amp of epinephrine with an estimated down time of 3 minutes. She did not require intubation. She was hypotensive and given 1 L normal saline bolus. She did require a norepinephrine infusion, currently running at 0.1 mics per kg per minute, through a right IJ triple-lumen central line catheter. Patient is currently resting comfortably on 4 L nasal cannula, in no acute distress. Patient is oxygenating at near 100%. Post resuscitation chest x-ray showed no acute cardiopulmonary process. The patient's right flank area has extensive soft tissue edema, no obvious bruising or ecchymosis. The area is tender to palp ation. A follow-up CBC showed a hemoglobin of 6.7, hematocrit 22.8, WBC 16, platelets 577,000. The patient was transfused 1 unit PRBC. Patient's BMP shows sodium 135, potassium 3.6, chloride 104, serum CO2 19, P1 57, creatinine chronically elevated at 3.46, glucose 137. Patient's lactic acid level was elevated at 2.9. Patient did receive a dose of Rocephin. She has been intermittently febrile with a T-max of 100.3F. Troponin was negative 1. NT proBNP was mildly elevated at 1720. Vital signs are stable. Patient is in the intensive care unit for closer monitoring. The patient is seen today 05/23/2022 in follow-up in the intensive care unit. She is currently awake and alert. Resting fairly comfortably in bed. She is maintaining O2 saturations up to 100% on 4 L/m per nasal cannula. No IV fluids currently. She has received 1 unit of packed red blood cells this admission. Current hemoglobin 8.5. Platelets 387. White count 13.3. Sodium 133. Potassium 3.5. Bicarb 19. BUN 60. Creatinine 3.92. Glucose 187. Urine positive for moderate bacteria and many white blood cells. Blood cultures positive for coag-negative staph. Urine culture pending. She is currently on daptomycin and Zosyn. ID service is on the case. She has been seen by urology regarding the right flank mass. Definitive diagnosis would require a CT-guided biopsy/aspiration. They feel they hemoglobin drops in the size of the per P nephrectomy mass increases it would be consistent for enlarging hematoma and may need transfer to a tertiary care center for right renal arterial embolization. The patient is seen today 05/24/2022 in follow-up in the intensive care unit. She is currently resting fairly comfortably in bed. Awake and alert. She was transferred out of the ICU yesterday but brought back to the ICU early this morning for hypotension. She is maintaining good O2 saturations in the 90s on 2 L/m per nasal cannula. She has normal saline at KVO. TSH and cortisol levels were within normal limits. Metoprolol is placed on hold. Patient did not require norepinephrine thus far. Initial blood cultures positive for coag- negative staph follow-up blood cultures revealing no growth. Urine culture no growth. White count 15.1. Hemoglobin 8.0. Platelets 386. Sodium 136. Potas sium 3.9. Bicarb 18. BUN 62. Creatinine 3.9. TSH 1.68. Cortisol level 30. She remains on Zosyn and daptomycin currently. The patient is seen today 05/25/2022 in follow-up in the intensive care unit. She is currently awake and alert in no acute distress. Continue O2 saturations up to 100% on 3 L/m nasal cannula. Currently down to 2 L. She is denying any worsening shortness of breath, cough or congestion. She is asking to go home. Computed tomography scan of the abdomen reveals a right renal mass with perinephric soft tissue component as well as soft tissue in the right subcutaneous flank region. The findings could be posttraumatic in the appropriate clinical setting and reflect renal edema with perinephric and subcutaneous hematoma versus infiltrative mass such as sarcoma renal cell carcinoma is not excluded. She is status post 1 unit of packed red blood cells this admission. Follow-up blood cultures reveal no growth. Urine culture revealed no growth. White count 13.8. He was 7.9. Platelets 434. Sodium 138. Potassium 3.8. Bicarb 18. BUN 64. Creatinine 3.94. Glucose 89. She is continued on daptomycin. Oral diuretics. Sodium bicarb tablets. The patient is seen today 05/26/2022 in follow-up on the regular medical floor. She is currently resting comfortably in bed. Awake and alert in no acute distress. Maintaining good O2 saturations in the 90s on room air. She is status post 1 unit of packed red blood cells this admission. Yesterday's hemoglobin was 7.9. Today's hemoglobin is pending. Blood cultures are positive for staph schleiferi SS, Staphylococcus hemolyticus from 05/21/2022. Blood culture from 05/23/2022 revealed no growth. Urine culture revealed no growth. Blood glucose 108. She is currently on daptomycin. The patient is seen today 05/27/2022 in follow-up on the regular medical floor. She is currently resting comfortably in bed. Awake and alert in no acute distress. Continues to maintain O2 saturations in the 90s on room air. She's afebrile. Hemodynamically stable. She is now thinking that she did take a fall while at current medical [place]. Hurting her back. The plan is for follow-up computed tomography scan to evaluate the right kidney mass versus hematoma in 4- 6 weeks. Hemoglobin has remained stable at 7.9. Today's labs are pending. Follow-up blood cultures are revealing no growth. She remains on ceftriaxone per ID services. Continued on sodium bicarb tablets. Most recent bicarb 17. BUN 67. Creatinine 4.07. Blood sugar 101. I am reevaluating this patient today 05/28/2022 in follow-up on the general medical floor. Patient is currently resting in bed, on 2 L nasal cannula, in no acute distress. No significant changes in patient's status. No new labs from today. Labs were repeated yesterday, and the patient's CBC shows a WBC count of 7.2, hemoglobin stable at 7.7, hematocrit 26.9, platelets 382,000. Patient's BMP from yesterday shows sodium 137, potassium 3.9, chloride 108, serum CO2 13, BUN 67, creatinine down to 3.9, glucose 193. D5W with 0.45% saline infusing at 100 mL per hour. Patient is receiving sodium bicarbonate tabs. Patient has remained afebrile. Continues to be covered on Rocephin. Procalcitonin levels pending. Blood pressure stable on the Midodrine. Vital signs are stable. On 05/29/2022, the patient is being seen for a follow-up. The patient was taken to the operating room yesterday. The patient had a right renal abscess. Open exploration with drainage of the large right perirenal abscess was done along with debridement of the necrotic tissue. As such, the patient is postop day #1. Estimated blood loss was only 50 mL. This woman is currently intubated on a mechanical ventilator. The primary cultures from the abscess is showing gram- negative bacillus and the patient is currently covered with IV cefepime. Noted the patient was septic. Her blood pressures remain soft and currently is on norepinephrine running at 0.02 mcg/kg/m. She remains intubated on a mechanical ventilator. This morning, he is on propofol running at 25 mcg/kg/m. The patient is adequately sedated at this point in time. She is on assist-control mode of mechanical ventilation at the rate of 16, tidal volume of 400, FiO2 of 30% with a PEEP of 5. The blood gases showed pH of 7.25 with a pCO2 of 39 and pO2 of 129. The chest x-ray from this morning shows adequate positioning of the orotracheal tube. The patient also has an orogastric tube in place. The x-rays essentially clear. As such, the blood gas is most consistent with metabolic acidosis. On her blood work, the serum bicarbs of 15 and a sodium level is at 135 and the patient has a non-anion gap metabolic acidosis as a gap is at 13. WBC count at 7.3 with a hemoglobin of 8.0. Note that her white cell count hasn't progressively improving. Her pro calcitonin level was at 4.15 at the time of admission and a drop down to 2.3. IV fluids are currently running in the form of D5 half-normal saline at the rate of 100 mL an hour. Surgical sites over the right flank area is saturated. Extremities are warm and pulses are present in all 4 extremities. On 05/30/2022, the patient is extubated. The patient was weaned off the mechanical ventilator and she was extubated yesterday without any major difficulties and currently she is on 2 L of oxygen by nasal cannula. Is postop day #2 following her surgical exploration and drainage of a large right perinephric abscess. The cultures are growing gram-negative bacteria and is consistent with Klebsiella and Proteus mirabilis. Note that the patient's Klebsiella is then ESBL producing organism. Based on that, antibiotics have been adjusted and the patient is currently on IV meropenem. Her breathing is comfortable. No measures to distress. Bili was 6.4 with a hemoglobin of 7.4, platelet count is 298, BUN is 59 with a creatinine of 3.13 and obvious of the renal function continues to improve slowly. Sodium is at 139. Potassium levels at 3.6. The pro-calcitonin level has dropped down to 2.3. IV fluids are running in the form of bicarb infusion at the rate of 125 mL an hour. Serum bicarb improved from 15 and is currently normalized up to 23. The bicarb infusion can be potentially discontinued and the patient will be switched to n ormal saline at the rate of 50 mL an hour. Swallow evaluation was done and she passed and she is going to be provided diet. Objective - Vital Signs Vital signs: Vital Signs Temp 98.4 F 05/30/22 08:30 Pulse 109 H 05/30/22 08:30 Resp 14 05/30/22 08:30 BP 93/75 05/30/22 08:30 Pulse Ox 99 05/30/22 08:30 FiO2 30 05/29/22 16:33 Intake & Output 05/29/22 05/30/22 05/30/22 18:59 06:59 18:59 Intake Total 4331.267 2244.803 347.479 Output Total 1575 700 175 Balance 422.870 774.803 172.479 Weight 107 kg 106.4 kg Intake: IV 200 1300 325 Dextrose 5% in Water 1, 125 000 ml @ 125 mls/hr IV . Q9H12M [facility] with Sodium Bicarb (1 Meq/ml) 150 ml Rx#:[id number] Dextrose 5%-0.45% NaCl 1, 200 1300 100 000 ml @ 100 mls/hr IV . Q10H [facility] Rx#:[id number] Meropenem 1 gm In Sodium 100 Chloride 0.9% 100 ml @ 33 .3 mls/hr IVPB Q12HR [facility] Rx#:[id number] Intake, IV Titration 1797.870 174.803 22.479 Amount Cefepime 2 gm In Sodium 100 Chloride 0.9% 100 ml @ 25 mls/hr IVPB Q12HR [facility] Rx #:[id number] Dextrose 5% in Water 1, 1375 000 ml @ 125 mls/hr IV . Q9H12M [facility] with Sodium Bicarb (1 Meq/ml) 150 ml Rx#:[id number] Meropenem 1 gm In Sodium 100 Chloride 0.9% 100 ml @ 33 .3 mls/hr IVPB Q12HR [facility] Rx#:[id number] Norepinephrine 4 mg In 162.370 74.803 22.479 Sodium Chloride 0.9% 250 ml @ 0.03 MCG/KG/MIN 11. 43 mls/hr IV .[id number] [facility] Rx#:[id number] propofoL 1,000 mg In 160.50 Empty Bag 1 bag @ 15 MCG/ KG/MIN 9 mls/hr IV . Q11H7M [facility] Rx#:[id number] Output: Urine 1575 700 175 Other: Voiding Method Indwelling Catheter Indwelling Catheter # Bowel Movements 1 1 - Exam GENERAL EXAM: Alert, obese female, currently extubated currently on 2 L of oxygen by nasal cannula HEAD: Normocephalic and atraumatic EYES: Normal reaction of pupils, equal size. NOSE: Clear with pink turbinates. THROAT: No erythema or exudates. NECK: No masses, no JVD. CHEST: No chest wall deformity. LUNGS: Equal air entry with no crackles, wheeze, rhonchi or dullness. On 2 L na mark cannula. No conversational dyspnea or accessory muscle use. CVS: S1 and S2 normal with no audible murmur, regular rhythm. No extra heart sounds ABDOMEN: No hepatosplenomegaly, active bowel sounds, no guarding or rigidity. The patient has a surgical 1 site and the dressing is quite saturated. Bowel sounds are hypoactive. No direct tenderness or rebound tenderness or guarding SPINE: No scoliosis or deformity SKIN: No rashes. Generalized pallor. There is extensive soft tissue swelling on the right flank area. No bruising or ecchymosis. CENTRAL NERVOUS SYSTEM: No focal deficits, tone is normal in all 4 extremities. The patient is awake and alert. EXTREMITIES: There is mild bilateral nonpitting edema of the lower extremities. No clubbing, or cyanosis. Peripheral pulses are intact. - Labs CBC & Chem 7: 05/30/22 06:02 05/30/22 06:02 Labs: Abnormal Lab Results - Last 24 Hours (Table) 05/29/22 05/29/22 05/29/22 Range/Units 11:26 17:45 19:43 RBC (3.80-5.40) m/uL Hgb (11.4-16.0) gm/dL Hct (34.0-46.0) % MCHC (31.0-37.0) g/dL RDW (11.5-15.5) % Lymphocytes # (1.0-4.8) k/uL BUN (7-17) mg/dL Creatinine (0.52-1.04) mg/dL Glucose (74-99) mg/dL POC Glucose (mg/dL) 173 H 173 H 183 H (70-110) mg/dL Calcium (8.4-10.2) mg/dL 05/29/22 05/30/22 05/30/22 Range/Units 23:26 06:02 06:02 RBC 2.89 L (3.80-5.40) m/uL Hgb 7.4 L (11.4-16.0) gm/dL Hct 24.5 L (34.0-46.0) % MCHC 30.4 L (31.0-37.0) g/dL RDW 19.7 H (11.5-15.5) % Lymphocytes # 0.6 L (1.0-4.8) k/uL BUN 59 H (7-17) mg/dL Creatinine 3.13 H (0.52-1.04) mg/dL Glucose 194 H (74-99) mg/dL POC Glucose (mg/dL) 195 H (70-110) mg/dL Calcium 8.2 L (8.4-10.2) mg/dL 05/30/22 05/30/22 Range/Units 06:08 07:15 RBC (3.80-5.40) m/uL Hgb (11.4-16.0) gm/dL Hct (34.0-46.0) % MCHC (31.0-37.0) g/dL RDW (11.5-15.5) % Lymphocytes # (1.0-4.8) k/uL BUN (7-17) mg/dL Creatinine (0.52-1.04) mg/dL Glucose (74-99) mg/dL POC Glucose (mg/dL) 217 H 239 H (70-110) mg/dL Calcium (8.4-10.2) mg/dL Microbiology - Last 24 Hours (Table) 05/26/22 16:43 Blood Culture - Preliminary Blood No Growth after 72 hours 05/28/22 12:47 Gram Stain - Preliminary Kidney Wound Culture - Preliminary 05/26/22 19:00 Gram Stain - Final Back Wound Culture - Final Klebsiella pneumoniae Proteus mirabilis 05/26/22 19:00 Anaerobic Culture - Final Back 05/28/22 12:47 Anaerobic Culture - Preliminary Kidney Assessment and Plan Plan: PEA cardiac arrest witnessed with an estimated 3 minute downtime. Patient did receive CPR and 1 amp of epinephrine. Hypotension was treated with 1 L normal saline bolus, and started on a norepinephrine infusion. The patient had recovered and was off norepinephrine. Transferred out of the intensive care unit on 05/23/2022. Brought back to the and the intensive care unit special education tutor 05/24/2022 with hypotension. Did not require any norepinephrine at this point. Add midodrine 10 mg 3 times a day. Hold metoprolol. Cortisol level 30. TSH normal. Now seen on the regular medical floor. Hemodynamically stable. Right perinephric abscess, likely secondary to gram-negative bacteria. The patient underwent open exploration and drainage of the abscess with debridement of the necrotic tissue. The patient had her surgery on 05/28/2022 and the patient is currently postop day #2. The patient has gram-negative bacteria including Klebsiella, ESBL producing organism and Proteus mirabilis. The patient is currently on IV meropenem. Pro-calcitonin level is improving. Right flank pain currently under investigation. An abdominal and pelvis CT without contrast showed an 8.2 cm mass within the expected region of the right kidney. There was an enlarged right kidney with perinephric stranding. There was soft tissue density in the subcutaneous and did tissues the right flank at the level of the enlarged kidney. Septic shock secondary to above, improved Non-anion gap metabolic acidosis, improved and the patient be taken off the bicarb infusion. Lactic acidosis secondary to above Anemia with a hemoglobin of 6.7 gm/dl status post transfusion of 1 unit PRBC. Current hemoglobin is at 7.4 Acute on chronic kidney disease, creatinine is improving and is down to 3.1 Diabetes mellitus type 2 Hypothyroidism History of CVA History of cognitive delay and memory impairment History of gastric bypass Plan: Keep the patient liters of oxygen by nasal cannula Stop the bicarb infusion and put the patient normal saline at the rate of 50 mL an hour Provide diet Continue IV meropenem based on the cultures Pro calcitonin level is improving White cell count is improving Creatinine is improving slowly Urology is on the case Wean off pressors and discontinue We'll continue to follow Transfer the patient out of the intensive care unit to a regular medical floor
[2022-05-30] MEDS ORDERED: POTASSIUM BICARBONATE/CIT AC 20 MEQ TABLET.EFF PO ONE (09:48)
--- NOTE | 2022-05-30 10:32 | P.PN ---
Subjective Progress Note Date: 05/30/22 The patient is a 37-year-old female with a history of CVA, DVT, OR, diabetes mellitus, anemia, pancreatitis, atrophic right kidney, recurrent UTIs with ESBL, and kidney stones requiring surgical intervention. The patient also has a history of renal failure due to an obstructed stent. On 05/21/22 she presented to the emergency department for an abscess on her back, that she believes has been present for a couple days. She is bedbound at home and describes the abscess area to be very painful. She denies any fever, chills, chest pain, abdominal pain, nausea, vomiting, headaches. However, the patient is a poor historian and has memory impairment after suffering her stroke and has a public guardian. An abdominal and pelvis CT without contrast done yesterday showed an 8.2 cm mass within the region of the right kidney. The previously atrophic kidney was enlarged with perinephric stranding. There was soft tissue density subcutaneous and deep tissues the right flank at the level of enlarged kidney. There was small amount of air present within the region. Ecchymosis extended throughout the right flank to the thigh. Correlation for hematoma was recommended. While in the emergency room, the patient became unresponsive and a CODE BLUE was activated. The presenting rhythm was PEA. Patient was successfully resuscitated after 1 round of CPR and 1 amp of epinephrine with an estimated down time of 3 minutes. She did not require intubation. CXR showed no acute cardiopulmonary process. A follow-up CBC showed a hemoglobin of 6.7, hematocrit 22.8, WBC 16, platelets 57. The patient was transfused 1 unit PRBC. Serum creatinine 3.86 upon admission. 05/23 The hemoglobin level this morning was 8.5, up from 8.4 yesterday. She remains tachycardic. I suspect that the CT scan findings represent a right perinephric hematoma. Urine culture shows mixed genital kelli. Blood cultures showed coagulase-negative staph, the significance of which is unclear. Definitive diagnosis would require CT-guided biopsy/aspiration. If the hemoglobin level drops and the size of the perinephric mass increases, this would be consistent with an enlarging hematoma in which case I would recommend referral to a tertiary care center for right renal arterial embolization. 05/24 The hemoglobin level this morning was 8.0, down from 8.5 yesterday. She remains tachycardic. I suspect that the CT scan findings represent a right perinephric hematoma. 05/25 The hemoglobin level this morning was 7.9, which is stable. 05/26 The hemoglobin level is stable at 7.9. Patient is symptomatically unchanged. 05/27 The patient did have spontaneous drainage of this infected hematoma and will benefit from open drainage. 05/28 This patient is a very uncomfortable and has a significant amount of purulence draining out of the right flank. She went to the OR with Dr. Moore and had an open exploration with drainage of large right perirenal abscess and debridement of necrotic tissue. Wound cultures were sent. The wound was packed with a Betadine soaked rolled Kerlix. The patient is transferred to intensive care unit. She was unable to be extubated. Her condition is serious. 05/29 The patient was examined in the ICU. She is on the vent and sedated, but able to open her eyes. Per nursing staff, her right flank wound has been draining a large amount of bloody drainage though out the night and the dressing has been reinforced. She is on Levophed. She is afebrile, and tachycardic with a heart rate of 108 bpm. WBC 7.3, creatinine 3.59. Preliminary wound cultures growing gram negative bacilli. Patient also have a positive blood culture with staph epi has been finalized with staphylococcus hemolyticus. Antibiotics per ID. Objective - Vital Signs Vital signs: Vital Signs Temp 98.4 F 05/30/22 08:30 Pulse 103 H 05/30/22 09:30 Resp 22 05/30/22 09:30 BP 106/67 05/30/22 09:30 Pulse Ox 99 05/30/22 09:30 FiO2 30 05/30/22 08:00 Intake & Output 05/29/22 05/30/22 05/30/22 18:59 06:59 18:59 Intake Total 4724.861 3243.803 347.479 Output Total 1575 700 175 Balance 422.870 774.803 172.479 Weight 107 kg 106.4 kg Intake: IV 200 1300 325 Dextrose 5% in Water 1, 125 000 ml @ 125 mls/hr IV . Q9H12M [facility] with Sodium Bicarb (1 Meq/ml) 150 ml Rx#:[id number] Dextrose 5%-0.45% NaCl 1, 200 1300 100 000 ml @ 100 mls/hr IV . Q10H [facility] Rx#:[id number] Meropenem 1 gm In Sodium 100 Chloride 0.9% 100 ml @ 33 .3 mls/hr IVPB Q12HR [facility] Rx#:[id number] Intake, IV Titration 1797.870 174.803 22.479 Amount Cefepime 2 gm In Sodium 100 Chloride 0.9% 100 ml @ 25 mls/hr IVPB Q12HR [facility] Rx #:[id number] Dextrose 5% in Water 1, 1375 000 ml @ 125 mls/hr IV . Q9H12M [facility] with Sodium Bicarb (1 Meq/ml) 150 ml Rx#:[id number] Meropenem 1 gm In Sodium 100 Chloride 0.9% 100 ml @ 33 .3 mls/hr IVPB Q12HR [facility] Rx#:[id number] Norepinephrine 4 mg In 162.370 74.803 22.479 Sodium Chloride 0.9% 250 ml @ 0.03 MCG/KG/MIN 11. 43 mls/hr IV .[id number] [facility] Rx#:[id number] propofoL 1,000 mg In 160.50 Empty Bag 1 bag @ 15 MCG/ KG/MIN 9 mls/hr IV . Q11H7M [facility] Rx#:[id number] Output: Urine 1575 700 175 Other: Voiding Method Indwelling Catheter Indwelling Catheter Indwelling Catheter # Bowel Movements 1 1 - Exam General: Well developed, well nourished. No acute distress. HEENT: Head is atraumatic, normocephalic. Lungs: Respirations even and nonlabored. On 2L nc Abdomen/GI: Soft, obese, non-distended. : Rosado catheter draining yellow urine with sediment Skin: Right flank incision with moderate amount of bloody drainage Neurologic: Alert, confused - Labs CBC & Chem 7: 05/30/22 06:02 05/30/22 06:02 Labs: Abnormal Lab Results - Last 24 Hours (Table) 05/29/22 05/29/22 05/29/22 Range/Units 11:26 17:45 19:43 RBC (3.80-5.40) m/uL Hgb (11.4-16.0) gm/dL Hct (34.0-46.0) % MCHC (31.0-37.0) g/dL RDW (11.5-15.5) % Lymphocytes # (1.0-4.8) k/uL BUN (7-17) mg/dL Creatinine (0.52-1.04) mg/dL Glucose (74-99) mg/dL POC Glucose (mg/dL) 173 H 173 H 183 H (70-110) mg/dL Calcium (8.4-10.2) mg/dL 05/29/22 05/30/22 05/30/22 Range/Units 23:26 06:02 06:02 RBC 2.89 L (3.80-5.40) m/uL Hgb 7.4 L (11.4-16.0) gm/dL Hct 24.5 L (34.0-46.0) % MCHC 30.4 L (31.0-37.0) g/dL RDW 19.7 H (11.5-15.5) % Lymphocytes # 0.6 L (1.0-4.8) k/uL BUN 59 H (7-17) mg/dL Creatinine 3.13 H (0.52-1.04) mg/dL Glucose 194 H (74-99) mg/dL POC Glucose (mg/dL) 195 H (70-110) mg/dL Calcium 8.2 L (8.4-10.2) mg/dL 05/30/22 05/30/22 Range/Units 06:08 07:15 RBC (3.80-5.40) m/uL Hgb (11.4-16.0) gm/dL Hct (34.0-46.0) % MCHC (31.0-37.0) g/dL RDW (11.5-15.5) % Lymphocytes # (1.0-4.8) k/uL BUN (7-17) mg/dL Creatinine (0.52-1.04) mg/dL Glucose (74-99) mg/dL POC Glucose (mg/dL) 217 H 239 H (70-110) mg/dL Calcium (8.4-10.2) mg/dL Microbiology - Last 24 Hours (Table) 05/26/22 16:43 Blood Culture - Preliminary Blood No Growth after 72 hours 05/28/22 12:47 Gram Stain - Preliminary Kidney Wound Culture - Preliminary 05/26/22 19:00 Gram Stain - Final Back Wound Culture - Final Klebsiella pneumoniae Proteus mirabilis 05/26/22 19:00 Anaerobic Culture - Final Back 05/28/22 12:47 Anaerobic Culture - Preliminary Kidney Assessment and Plan Assessment: The patient was examined in the ICU. She was extubated yesterday and is now on 2L NC. She is awake and alert, but confused. Her right flank wound packing was changed by Dr. Moore. The wound looked quite clean, no purulent drainage noted. She is off pressors and will be moved out of the ICU today. She his afebrile and tachycardic with a heart rate of 103bpm this morning. Wound cultures are growing gram-negative bacteria consistent with Klebsiella and Proteus mirabilis. Antibiotics have been adjusted by ID and the patient is now receiving meropenem . (1) Perinephric abscess Current Visit: Yes Status: Acute Code(s): N15.1 - RENAL AND PERINEPHRIC ABSCESS SNOMED Code(s): 18869495 Plan: - Continue antibiotics per ID's recommendation - Monitor creatinine - Maintain Rosado catheter until hemodynamically stable - Daily dressing changes - Continue supportive care Impression and plan of care have been directed as dictated by the signing physician. Danna Bernal nurse practitioner acting as scribe for signing physician. Danna Bernal [facility]- Palliative Care/Urology [facility] [id number] Email: [email or web address] The patient's dressing was changed today. The perinephric abscess cavity looks much better. There is minimal purulence. She will start with twice a day dressing changes tomorrow. She is now extubated. I concur with the above note. Aubrey Moore M.D.
[2022-05-30 12:00] LABS: Glucose,Whole Blood 96 mg/dL (70-110)
[2022-05-30] MEDS: SODIUM CHLORIDE 0.9% 1,000 ML IV SCH ×2 (12:18→17:20)
--- NOTE | 2022-05-30 15:11 | P.PN ---
Subjective Progress Note Date: 05/30/22 Principal diagnosis: Right flank abscess/hematoma and bacteremia Patient is a 37-year-old female with a past medical history significant for CVA TIA DVT morbid obesity history of recurrent UTI patient presenting to the ER with concern for right flank pain, patient did have abnormal CT concerning for increasing mass to the right kidney area , patient has been diagnosed with right perinephric abscess and the patient is status post surgical drainage completed on 05/28/2022 On today's evaluation of that is 05/30/2022, the patient remains to be afebrile, the patient has been extubated and moved out of the ICU, the patient is breathing comfortably on room air was complaining of feeling scared and no other history provided no vomiting or diarrhea has been reported Objective - Vital Signs Vital signs: Vital Signs Temp 98.4 F 05/30/22 08:30 Pulse 103 H 05/30/22 09:30 Resp 22 05/30/22 09:30 BP 106/67 05/30/22 09:30 Pulse Ox 99 05/30/22 09:30 FiO2 30 05/30/22 08:00 Intake & Output 05/29/22 05/30/22 05/30/22 18:59 06:59 18:59 Intake Total 5131.099 8843.803 347.479 Output Total 1575 700 175 Balance 422.870 774.803 172.479 Weight 107 kg 106.4 kg Intake: IV 200 1300 325 Dextrose 5% in Water 1, 125 000 ml @ 125 mls/hr IV . Q9H12M [facility] with Sodium Bicarb (1 Meq/ml) 150 ml Rx#:[id number] Dextrose 5%-0.45% NaCl 1, 200 1300 100 000 ml @ 100 mls/hr IV . Q10H [facility] Rx#:[id number] Meropenem 1 gm In Sodium 100 Chloride 0.9% 100 ml @ 33 .3 mls/hr IVPB Q12HR [facility] Rx#:[id number] Intake, IV Titration 1797.870 174.803 22.479 Amount Cefepime 2 gm In Sodium 100 Chloride 0.9% 100 ml @ 25 mls/hr IVPB Q12HR [facility] Rx #:[id number] Dextrose 5% in Water 1, 1375 000 ml @ 125 mls/hr IV . Q9H12M [facility] with Sodium Bicarb (1 Meq/ml) 150 ml Rx#:[id number] Meropenem 1 gm In Sodium 100 Chloride 0.9% 100 ml @ 33 .3 mls/hr IVPB Q12HR [facility] Rx#:[id number] Norepinephrine 4 mg In 162.370 74.803 22.479 Sodium Chloride 0.9% 250 ml @ 0.03 MCG/KG/MIN 11. 43 mls/hr IV .[id number] [facility] Rx#:[id number] propofoL 1,000 mg In 160.50 Empty Bag 1 bag @ 15 MCG/ KG/MIN 9 mls/hr IV . Q11H7M [facility] Rx#:[id number] Output: Urine 1575 700 175 Other: Voiding Method Indwelling Catheter Indwelling Catheter Indwelling Catheter # Bowel Movements 1 1 - Exam GENERAL DESCRIPTION: A middle-aged female lying in bed in no distress RESPIRATORY SYSTEM: Unlabored breathing , decreased breath sounds at bases HEART: S1 S2 regular rate and rhythm , ABDOMEN: Soft , no tenderness , EXTREMITIES: No edema feet - Labs CBC & Chem 7: 05/30/22 06:02 05/30/22 06:02 Labs: Abnormal Lab Results - Last 24 Hours (Table) 05/29/22 05/29/22 05/29/22 Range/Units 17:45 19:43 23:26 RBC (3.80-5.40) m/uL Hgb (11.4-16.0) gm/dL Hct (34.0-46.0) % MCHC (31.0-37.0) g/dL RDW (11.5-15.5) % Lymphocytes # (1.0-4.8) k/uL BUN (7-17) mg/dL Creatinine (0.52-1.04) mg/dL Glucose (74-99) mg/dL POC Glucose (mg/dL) 173 H 183 H 195 H (70-110) mg/dL Calcium (8.4-10.2) mg/dL 05/30/22 05/30/22 05/30/22 Range/Units 06:02 06:02 06:08 RBC 2.89 L (3.80-5.40) m/uL Hgb 7.4 L (11.4-16.0) gm/dL Hct 24.5 L (34.0-46.0) % MCHC 30.4 L (31.0-37.0) g/dL RDW 19.7 H (11.5-15.5) % Lymphocytes # 0.6 L (1.0-4.8) k/uL BUN 59 H (7-17) mg/dL Creatinine 3.13 H (0.52-1.04) mg/dL Glucose 194 H (74-99) mg/dL POC Glucose (mg/dL) 217 H (70-110) mg/dL Calcium 8.2 L (8.4-10.2) mg/dL 05/30/22 Range/Units 07:15 RBC (3.80-5.40) m/uL Hgb (11.4-16.0) gm/dL Hct (34.0-46.0) % MCHC (31.0-37.0) g/dL RDW (11.5-15.5) % Lymphocytes # (1.0-4.8) k/uL BUN (7-17) mg/dL Creatinine (0.52-1.04) mg/dL Glucose (74-99) mg/dL POC Glucose (mg/dL) 239 H (70-110) mg/dL Calcium (8.4-10.2) mg/dL Microbiology - Last 24 Hours (Table) 05/28/22 12:47 Gram Stain - Preliminary Kidney Wound Culture - Preliminary Gram Neg Bacilli Gram Neg Bacilli#2 05/26/22 16:43 Blood Culture - Preliminary Blood No Growth after 72 hours 05/26/22 19:00 Gram Stain - Final Back Wound Culture - Final Klebsiella pneumoniae Proteus mirabilis 05/26/22 19:00 Anaerobic Culture - Final Back 05/28/22 12:47 Anaerobic Culture - Preliminary Kidney Assessment and Plan (1) Positive blood culture Current Visit: Yes Status: Acute Code(s): R78.81 - BACTEREMIA SNOMED Code(s): 527484266 (2) Abscess of flank Current Visit: Yes Status: Acute Code(s): L02.211 - CUTANEOUS ABSCESS OF ABDOMINAL WALL SNOMED Code(s): 46365245 Plan: 1patient presented to the hospital with sepsis in this patient who did have a fever elevated white count has been complaining of flank pain with evidence of possible renal abscess/pyelonephritis likely from enteric gram-negative pathogen. Patient also have a positive blood culture with staph epi has been finalized with staphylococcus hemolyticus, repeat CT did not show any worsening however patient did have spontaneous drainage of this infected hematoma and the patient is status post open drainage of the abscess and debridement of necrotic tissue by urology completed on 05/28/2022 cultures currently growing 2 different gram-negative with ID and sensitivities pending 2the patient initial cultures grew ESBL Klebsiella, patient to continue with meropenem and monitor clinical course closely Time with Patient: Less than 30
--- NOTE | 2022-05-30 16:34 | P.PN ---
Progress Note - Text Progress Note Date: 05/30/22 Chief Complaint: Right flank pain 37-year-old female with a known history of CVA with right-sided weakness, cognitive impairment, history of gastric bypass surgery, history of DVT on eliquis. oxygen at 2 L via nasal cannula since her COVID infection. CKD with baseline creatinine level around 3.0. resident of [facility], [facility] - long-term resident. known history of irregular vaginal bleeding - polycystic ovarian syndrome.. multiple DVTs in the past. Following gastric bypass surgery patient had a stroke and myocardial infarction. - resulted in cognitive impairment. poor short-term memory. - bedbound. contracture of the left hand and foot drop on the right leg. history of hyperlipidemia anxiety hypertension hypothyroid diabetes. Patient has a legal guardian Chandrika Special note: Patient always request more pain medications. But if explained she that this leads to her mental status changing and she is finding the same. This should be kept in mind when she asked for pain medications repeatedly. Will need to be given when she is uncomfortable. Once explained she becomes rather comfortable. Presented to the ER right flank pain and fever. For 2 days. Did have ecchymosis along the right flank. Hemoglobin was noted to be 6.7 did receive 1 unit of blood. In the ER patient had a cardiac arrest felt to be PEA as he suddenly became unresponsive. He received chest compression and spontaneous r eturn of circulation. And moved to the ICU. Has baseline memory impairment. Patient is started on ceftriaxone in the ER. Patient was then put on levo fed drip. Patient overnight was on BiPAP. This morning down to 2 L. 05/23/2022: Patient was seen this morning the ICU. Decreased in ecchymosis on the right flank. Indurated area. Tender. For pain to use K pad. Discussed with the nurse. Explained to the patient about pain. IV daptomycin. Per urology if further decrease in hemoglobin and enlarging right renal fossa that would require renal artery embolization at a tertiary center. Positive blood culture likely contaminant. Had some lunch 05/24/2022: ICU. Laying in bed. 2 L nasal cannula. Eating fair. Patient wanted stronger pain medications. K pad. She can have a home dose of [place]. Explained. Discussed with ID-the procedures repeat computed tomography scan to look at the size of the hematoma. On IV daptomycin. Zosyn has been discontinued. Patient was transferred to medical floor yesterday. So now after vacation became less responsive became hypotensive. Brought back to the ICU. With fluid bolus the blood pressure came back up. May 25: Patient moved to the medical floor. Has been refusing to eat. IV daptomycin. May 26: Patient not eating this morning again. Spoke to the nurse to encourage the patient to eat. Done on the lights and opened the drapes Patient is sleepy. We'll make the morning dose of Klonopin when necessary. Discussed with patient. Much improved pain in the right flank. ID is ordered IR to drain the possible infected hematoma on Saturday. Antibiotics being changed to Rocephin 2 g daily May 27: Patient started draining pus from the right flank area. It is felt that infected hematoma, has come through. Discussed with ID. He contacted Dr. brar for possible further drainage. Await further input. Afebrile. IV ceftriaxone May 28: So the patient this morning. He to patient to the OR by Dr. Zelaya. Right flank was exposed that was significant necrotic tissue draining meme pus. About a liter was drained. Clean with hydrogen peroxide. Wound was packed with Betadine soaked Kerlix. Sent to ICU May 29: ICU. On the vent FiO2 30 PEEP of 5. Started on levo fed 3 AM. Dressing is soaking easily with serosanguineous discharge. On IV meropenem. May 30: ICU. Patient has been extubated. Yesterday. Off levo fed. Had very little of lunch. She seeing people in the room. Wants me to be feed the person next to her. Normal saline. Sinus rhythm. Oxygen 2 L. Dressing and gauze packing change by Dr. Zelaya. Still purulent smelling. IV meropenem. Being followed by urology, ID. We'll consult psychiatry for visual hallucinations Active Medications Acetaminophen (Acetaminophen Tab 325 Mg Tab) 650 mg PO Q6HR PRN PRN Reason: Mild Pain or Fever > 100.5 Last Admin: 05/28/22 03:05 Dose: 650 mg Hydrocodone Bitart/Acetaminophen (Hydrocodone/Apap 7.5-325mg 1 Each Tab) 1 each PO Q8H PRN PRN Reason: Pain Last Admin: 05/30/22 03:27 Dose: 1 each Albuterol/Ipratropium (Ipratropium-Albuterol 3 Ml Neb) 3 ml INHALATION RT-Q4H [facility] Last Admin: 05/30/22 16:04 Dose: Not Given Atorvastatin Calcium (Atorvastatin 20 Mg Tab) 20 mg PO HS@1999 [facility] Last Admin: 05/29/22 20:14 Dose: 20 mg Baclofen (Baclofen 10 Mg Tab) 10 mg PO HS@1999 [facility] Last Admin: 05/29/22 20:14 Dose: 10 mg Chlorhexidine Gluconate (Chlorhexidine Gluconate 15 Ml Cup) 15 ml MUCOUS MEM BID [facility] Last Admin: 05/30/22 07:43 Dose: Not Given Cholecalciferol (Cholecalciferol 25 Mcg (1000 Iu) Tablet) 75 mcg PO DAILY [facility] Last Admin: 05/30/22 07:59 Dose: 75 mcg Clomipramine HCl (Clomipramine 50 Mg Cap) 50 mg PO HS@1999 [facility] Last Admin: 05/29/22 20:14 Dose: 50 mg Clonazepam (Clonazepam 0.5 Mg Tab) 0.25 mg PO [facility] Last Admin: 05/29/22 20:14 Dose: 0.25 mg Clonazepam (Clonazepam 0.5 Mg Tab) 0.25 mg PO DAILY PRN PRN Reason: Anxiety Last Admin: 05/30/22 09:18 Dose: 0.25 mg Darbepoetin Kurtis (Darbepoetin Kurtis 25 Mcg/0.42 Ml Syringe) 25 mcg SQ MO@2200 [facility] Last Admin: 05/29/22 01:40 Dose: 25 mcg Dextrose/Water (Dextrose 50% Syringe 50 Ml) 25 ml IVP PER PROTOCOL PRN; Protocol PRN Reason: Hypoglycemia Dextrose/Water (Dextrose 50% Syringe 50 Ml) 50 ml IVP PER PROTOCOL PRN; Protocol PRN Reason: Hypoglycemia Famotidine (Famotidine 20 Mg Tab) 20 mg PO DAILY [facility] Last Admin: 05/30/22 08:00 Dose: 20 mg Ferrous Sulfate (Ferrous Sulfate 325 Mg Tab) 325 mg PO BID@799,1999 [facility] Last Admin: 05/30/22 07:59 Dose: 325 mg Fluoxetine HCl (Fluoxetine Hcl 20 Mg Cap) 20 mg PO DAILY [facility] Last Admin: 05/30/22 07:59 Dose: 20 mg Furosemide (Furosemide 80 Mg Tab) 80 mg PO DAILY [facility] Last Admin: 05/30/22 08:00 Dose: 80 mg Propofol 1,000 mg/ IV Solution 100 mls @ 9 mls/hr IV .Q11H7M [facility]; Protocol Last Titration: 05/29/22 16:35 Dose: 0 mcg/kg/min, 0 mls/hr Meropenem 1 gm/ Sodium (Chloride) 100 mls @ 33.3 mls/hr IVPB Q12HR [facility]; Protocol Last Admin: 05/30/22 07:59 Dose: 33.3 mls/hr Sodium Chloride (Saline 0.9%) 1,000 mls @ 50 mls/hr IV .Q20H [facility] Last Admin: 05/30/22 12:18 Dose: 50 mls/hr Insulin Aspart (Insulin Aspart (Novolog) 100 Unit/Ml Vial) 0 unit SQ Q6HR [facility]; Protocol Last Admin: 05/30/22 12:04 Dose: Not Given Insulin Detemir (Insulin Detemir (Levemir) 100 Unit/Ml Syr) 20 unit SQ HS [facility] Last Admin: 05/29/22 20:15 Dose: 20 unit Levothyroxine Sodium (Levothyroxine 25 Mcg Tab) 25 mcg PO HS@1999 [facility] Last Admin: 05/29/22 20:14 Dose: 25 mcg Melatonin (Melatonin 5 Mg Tablet) 5 mg PO HS@1999 [facility] Last Admin: 05/29/22 20:40 Dose: Not Given Metoprolol Succinate (Metoprolol Succinate (Er) 50 Mg Tab.Er.24h) 50 mg PO DAILY [facility] Last Admin: 05/30/22 07:59 Dose: 50 mg Midodrine (Midodrine 5 Mg Tab) 10 mg PO AC-TID [facility] Last Admin: 05/30/22 12:18 Dose: 10 mg Miscellaneous Information (Potassium Replacement Protocol 1 Each Misc) 1 each MISCELLANE DAILY PRN; Protocol PRN Reason: Per Protocol Miscellaneous Information (Magnesium Replacement Protocol 1 Each Misc) 1 each MISCELLANE DAILY PRN; Protocol PRN Reason: Per Protocol Multivitamins (Multivitamins, Thera 1 Each Tab) 1 each PO DAILY [facility] Last Admin: 05/30/22 07:59 Dose: 1 each Naloxone HCl (Naloxone 0.4 Mg/Ml 1 Ml Vial) 0.2 mg IV Q2M PRN PRN Reason: Opioid Reversal Non-Formulary Medication (Norethindrone [Chani]) 0.35 mg PO DAILY [facility] Last Admin: 05/30/22 08:01 Dose: Not Given Ondansetron HCl (Ondansetron 4 Mg/2 Ml Vial) 4 mg IVP Q8HR PRN PRN Reason: Nausea And Vomiting Polyethylene Glycol (Polyethylene Glycol 3350 17 Gm Powd.Pack) 17 gm PO DAILY [facility] Last Admin: 05/30/22 08:01 Dose: Not Given Senna/Docusate Sodium (Sennosides-Docusate Sodium 1 Each Tab) 2 each PO HS@1999 [facility] Last Admin: 05/29/22 20:14 Dose: 2 each Sodium Bicarbonate (Sodium Bicarbonate Tab 650 Mg Tab) 650 mg PO BID@ [facility] Last Admin: 05/30/22 07:59 Dose: 650 mg Past medical history to include: Stroke resulting in decreased memory (contracture, following, in 2014 following surgery, DVT, [place], gastric bypass in 2016, anxiety depression, muscle spasms, irregular menstrual bleeding, hypertension, hypothyroid chronic pain in the hand s / back. Irregular vaginal bleeding-polycystic ovary syndrome. Multiple DVTs in the past. Following gastric bypass surgery patient had a stroke and myocardial infarction. Resulting in cognitive impairment. Hyperlipidemia, anxiety, hypertension, hypothyroid Social history: long-term resident of [facility], no smoking. Did smoke marijuana in high school. Pretty much bedbound. Has a legal guardian Chandrika Physical examination: VITAL SIGNS: 98.4, 103, 22, 106/67, 99% 2 L GENERAL: Reclining in bed,, tired but answering simple questions. She thinks somebody's next to her EYES: Pupils equal. Conjunctiva pale. HEENT: External appearance of nose and ears normal, oral cavity grossly normal. NECK: JVD unable to assess masses not palpable. HEART: Heart sounds are muffled; no edema. LUNGS: Respiratory rate normal; distant breath sounds. ABDOMEN: Soft, dressing over the right flank, liver spleen not palpable, no masses palpable. PSYCH: Answering simple questions. She is imagining a person sitting next to her NEUROLOGICAL: [Cranial nerves grossly intact; no facial asymmetry, contracture of the left hand. Right Foot drop INVESTIGATIONS, reviewed in the clinical context: Wound culture growing: Klebsiella pneumoniae, Proteus mirabilis May 30: White count 6.4 hemoglobin 7.4 platelets 28 potassium 3.6 creatinine 3.13 May 29: White count 7.3 hemoglobin 8 platelets 303 potassium 3.4 BUN 61 creatinine 3.5 May 28: Procalcitonin 2.3 May 27: White count 7.2 hemoglobin 7.7 potassium 3.9 creatinine 3.9 May 26: WBC 10.9 hemoglobin 7.9 platelets 453 potassium 3.5. 67 creatinine 4.07 May 25: White count 13.8 hemoglobin 7.9 platelets 434 potassium 3.8 BUN 64 creatinine 3.94 May 24: White count 15.1 hemoglobin 8 platelets 386 potassium 3.9 BUN 62 cr eatinine 3.98 troponin I less than 0.012, TSH 1.6 cortisol 30 Blood cultures [May 21]. Staphylococcus hemolyticus. Staphylococcusschleiferi. Repeat blood cultures negative May 23: White count 13.3 hemoglobin 8.5 platelets 327 potassium 3.5. An 60 creatinine 3.9 to 05/22/2022: White count 14.8 hemoglobin 8.4 platelets 474, sodium 137 creatinine 3.49 UA: Leukoesterase large. WBC 182 nitrate negative Admission labs: White count 16.1 hemoglobin 6.7 platelets 577 sodium 135 potassium 3.6 BUN 57 creatinine 3.46 lactic acid 2.[address] abdomen pelvis without contrast: Right adrenal gland not identified. Gallbladder surgically absent. 8.2 cm mass within the expected region of the right kidney. This was previously an atrophic kidney. That was enlarged. Perinephric stranding. Soft tissue density in the posterior right flank is a level of this right kidney. Small amount of air is present in the region of the right kidney. Ecchymosis appears to extend to the flank to the thigh. Chest x-ray film personally reviewed by me-infiltrate versus edema possible. EKG tracing personally reviewed by me-heart rate 108. Sinus tachycardia Renal ultrasound: Masslike area within the lower pole of the kidney in the right. Circumferentially wall thickening of the sigmoid colon. Assessment plan: -Infected hematoma at right renal bed being on eliquis - atrophic kidney previously. opened outwardly draining.: Slow to respond Blood cultures Staphylococcus hemolytic. Wound culture Pneumoniae, Proteus Mirabilis: May 28: Meme pus was drained from the perinephric area. Iodine- soaked gauze . IV cefepime -Sepsis, POA from infected hematoma -PEA cardiac arrest witnessed lasting about 3 minutes. Patient did receive 1 amp of epinephrine and CPR. Fluid bolus and levo fed. - discontinued -Combination of septic shock and hypovolemic shock from bleeding./Hematoma. Better Fluid resuscitation, IV levo fed-discontinued. IV antibiotics -Acute hypoxic respiratory failure from combination of obesity hypoventilation, questionable pneumonia.: Better Status post ventilator assist. Extubated May 29 -Chronic hypoxic respiratory failure On 2 L of nasal cannula at baseline -Chronic medical debility, patient is not ambulatory -Anemia of chronic kidney disease Hemoglobin was 7.3 on February 2022 -Septic shock On levo fed - obesity BMI 36.7 -Chronic left hand contracture, right foot drop -Chronic multiple DVTs eliquis 2.5 mg held -Hyperlipidemia Lipitor 20 mg daily at bedtime -Muscle spasm Baclofen 10 mg daily at bedtime -Essential hypertension Toprol-XL currently held because of low blood pressure -Hypothyroid Synthroid 25 g at bedtime -Visual hallucinations Consults psychiatry in view of psychiatry disorder underlying -Diabetes mellitus type 2, chronic on insulin Levemir 20 mg daily at bedtime. Follow Accu-Cheks -Chronic pain in the left hand and lower back. [place] 7.5 every 12 when necessary -Anxiety depression Klonopin 0.5 mg daily at bedtime Prozac 20 mg daily-outpatient -Bilateral nonobstructing renal calculi,-asymptomatic -Chronic kidney disease stage 4 from obstructive uropathy with a history of left ureteral stent. Creatinine 3.26 on 02/19/2022 -Chronic Right renal atrophy -Full code IV meropenem . Dressing changes . Consult psychiatry.
[2022-05-30 16:53] LABS: Glucose,Whole Blood 149 mg/dL (70-110)
[2022-05-30 20:53] LABS: Glucose,Whole Blood 175 mg/dL (70-110)
[2022-05-30] MEDS: clonazePAM 0.5 MG TAB PO SCH (21:49)
[2022-05-30] MEDS: BACLOFEN 10 MG TAB PO SCH (21:49)
[2022-05-30] MEDS: LEVOTHYROXINE 25 MCG TAB PO SCH (21:49)
[2022-05-30] MEDS: MELATONIN 5 MG TABLET PO SCH (21:49)
[2022-05-30] MEDS: ATORVASTATIN 20 MG TAB PO SCH (21:49)
[2022-05-30] MEDS: SENNOSIDES-DOCUSATE SODIUM 1 EACH TAB PO SCH (21:49)
[2022-05-30] MEDS: INSULIN DETEMIR (LEVEMIR) 100 UNIT/ML SYR SQ SCH (22:22)
[2022-05-30 23:59] LABS: Glucose,Whole Blood 151 mg/dL (70-110)
[2022-05-31] MEDS: IPRATROPIUM-ALBUTEROL 3 ML NEB INHALATION SCH ×4 (01:15→13:00)
[2022-05-31] MEDS: MIDODRINE 5 MG TAB PO SCH ×3 (05:48→17:26)
[2022-05-31] MEDS: HYDROcodone/APAP 7.5-325MG 1 EACH TAB PO PRN ×2 (05:49→14:13)
[2022-05-31 06:15] LABS: Glucose,Whole Blood 108 mg/dL (70-110)
[2022-05-31] MEDS: SODIUM CHLORIDE 0.9% 1,000 ML IV SCH (06:23)
[2022-05-31] MEDS: INSULIN ASPART (NovoLOG) 100 UNIT/ML VIAL SQ SCH ×3 (06:23→17:06)
[2022-05-31] MEDS: CHLORHEXIDINE GLUCONATE 15 ML CUP MUCOUS MEM SCH ×2 (09:00→22:35)
[2022-05-31] MEDS: NON FORMULARY DRUG (Norethindrone [Camila] 0.35 MG Tablet) PO SCH (09:01)
[2022-05-31] MEDS: polyethylene glycoL 3350 17 GM POWD.PACK PO SCH (09:02)
[2022-05-31] MEDS: FAMOTIDINE 20 MG TAB PO SCH (09:11)
[2022-05-31] MEDS: CHOLECALCIFEROL 25 MCG (1000 IU) TABLET PO SCH (09:11)
[2022-05-31] MEDS: SODIUM BICARBONATE TAB 650 MG TAB PO SCH ×2 (09:11→22:12)
[2022-05-31] MEDS: FERROUS SULFATE 325 MG TAB PO SCH ×2 (09:11→22:11)
[2022-05-31] MEDS: FUROSEMIDE 80 MG TAB PO SCH (09:12)
[2022-05-31] MEDS: MULTIVITAMINS, THERA 1 EACH TAB PO SCH (09:12)
[2022-05-31] MEDS: FLUoxetine HCL 20 MG CAP PO SCH (09:12)
[2022-05-31] MEDS: METOPROLOL SUCCINATE (ER) 50 MG TAB.ER.24H PO SCH (09:12)
--- NOTE | 2022-05-31 09:17 | P.PN ---
Subjective Progress Note Date: 05/31/22 The patient is a 37-year-old female with a history of CVA, DVT, [place], diabetes mellitus, anemia, pancreatitis, atrophic right kidney, recurrent UTIs with ESBL, and kidney stones requiring surgical intervention. The patient also has a history of renal failure due to an obstructed stent. On 05/21/22 she presented to the emergency department for an abscess on her back, that she believes has been present for a couple days. She is bedbound at home and describes the abscess area to be very painful. She denies any fever, chills, chest pain, abdominal pain, nausea, vomiting, headaches. However, the patient is a poor historian and has memory impairment after suffering her stroke and has a public guardian. An abdominal and pelvis CT without contrast done yesterday showed an 8.2 cm mass within the region of the right kidney. The previously atrophic kidney was enlarged with perinephric stranding. There was soft tissue density subcutaneous and deep tissues the right flank at the level of enlarged kidney. There was small amount of air present within the region. Ecchymosis extended throughout the right flank to the thigh. Correlation for hematoma was recommended. While in the emergency room, the patient became unresponsive and a CODE BLUE was activated. The presenting rhythm was PEA. Patient was successfully resuscitated after 1 round of CPR and 1 amp of epinephrine with an estimated down time of 3 minutes. She did not require intubation. CXR showed no acute cardiopulmonary process. A follow-up CBC showed a hemoglobin of 6.7, hematocrit 22.8, WBC 16, platelets 57. The patient was transfused 1 unit PRBC. Serum creatinine 3.86 upon admission. 05/23 The hemoglobin level this morning was 8.5, up from 8.4 yesterday. She remains tachycardic. I suspect that the CT scan findings represent a right perinephric hematoma. Urine culture shows mixed genital kelli. Blood cultures showed coagulase-negative staph, the significance of which is unclear. Definitive diagnosis would require CT-guided biopsy/aspiration. If the hemoglobin level drops and the size of the perinephric mass increases, this would be consistent with an enlarging hematoma in which case I would recommend referral to a tertiary care center for right renal arterial embolization. 05/24 The hemoglobin level this morning was 8.0, down from 8.5 yesterday. She remains tachycardic. I suspect that the CT scan findings represent a right perinephric hematoma. 05/25 The hemoglobin level this morning was 7.9, which is stable. 05/26 The hemoglobin level is stable at 7.9. Patient is symptomatically unchanged. 05/27 The patient did have spontaneous drainage of this infected hematoma and will benefit from open drainage. 05/28 This patient is a very uncomfortable and has a significant amount of purulence draining out of the right flank. She went to the OR with Dr. Berman and had an open exploration with drainage of large right perirenal abscess and debridement of necrotic tissue. Wound cultures were sent. The wound was packed with a Betadine soaked rolled Kerlix. The patient is transferred to intensive care unit. She was unable to be extubated. Her condition is serious. 05/29 The patient was examined in the ICU. She is on the vent and sedated, but able to open her eyes. Per nursing staff, her right flank wound has been draining a large amount of bloody drainage though out the night and the dressing has been reinforced. She is on Levophed. She is afebrile, and tachycardic with a heart rate of 108 bpm. WBC 7.3, creatinine 3.59. Preliminary wound cultures growing gram negative bacilli. Patient also have a positive blood culture with staph epi has been finalized with staphylococcus hemolyticus. Antibiotics per ID. 05/30 The patient was examined in the ICU. She was extubated yesterday and is now on 2L NC. She is awake and alert, but confused. Her right flank wound packing was changed by Dr. Berman. The wound looked quite clean, no purulent drainage noted. She is off pressors and will be moved out of the ICU today. She his afebrile and tachycardic with a heart rate of 103bpm this morning. Wound cultures are growing gram-negative bacteria consistent with Klebsiella and Proteus mirabilis. Antibiotics have been adjusted by ID and the patient is now receiving meropenem. Objective - Vital Signs Vital signs: Vital Signs Temp 98.2 F 05/31/22 08:00 Pulse 98 05/31/22 08:00 Resp 18 05/31/22 08:00 BP 102/64 05/31/22 08:00 Pulse Ox 100 05/31/22 08:00 FiO2 30 05/30/22 08:00 Intake & Output 05/30/22 05/31/22 05/31/22 18:59 06:59 18:59 Intake Total 889.604 6193 Output Total 175 2100 Balance 372.479 -760 Intake: IV 525 0.9 KVO 200 Dextrose 5% in Water 1, 125 000 ml @ 125 mls/hr IV . Q9H12M [facility] with Sodium Bicarb (1 Meq/ml) 150 ml Rx#:[id number] Dextrose 5%-0.45% NaCl 1, 100 000 ml @ 100 mls/hr IV . Q10H [facility] Rx#:[id number] Meropenem 1 gm In Sodium 100 Chloride 0.9% 100 ml @ 33 .3 mls/hr IVPB Q12HR [facility] Rx#:[id number] Intake, IV Titration 22.479 500 Amount Meropenem 1 gm In Sodium 100 Chloride 0.9% 100 ml @ 33 .3 mls/hr IVPB Q12HR [facility] Rx#:[id number] Norepinephrine 4 mg In 22.479 Sodium Chloride 0.9% 250 ml @ 0.03 MCG/KG/MIN 11. 43 mls/hr IV .[id number] [facility] Rx#:[id number] Sodium Chloride 0.9% 1, 400 000 ml @ 50 mls/hr IV . Q20H [facility] Rx#:[id number] Oral 840 Output: Urine 175 2100 Uretheral (Rosado) 2100 Other: Voiding Method Indwelling Catheter Indwelling Catheter # Bowel Movements 1 - Exam General: Well developed, well nourished. No acute distress. HEENT: Head is atraumatic, normocephalic. Lungs: Respirations even and nonlabored. On 2L nc Abdomen/GI: Soft, obese, non-distended. : Rosado catheter draining yellow urine with sediment Skin: Right flank incision with moderate amount of prulent/serosang drainage Neurologic: Alert, confused - Labs CBC & Chem 7: 05/30/22 06:02 05/30/22 06:02 Labs: Abnormal Lab Results - Last 24 Hours (Table) 05/30/22 05/30/22 05/30/22 Range/Units 16:52 20:51 23:58 POC Glucose (mg/dL) 149 H 175 H 151 H (70-110) mg/dL Microbiology - Last 24 Hours (Table) 05/26/22 16:43 Blood Culture - Preliminary Blood No Growth after 96 hours 05/28/22 12:47 Gram Stain - Preliminary Kidney Wound Culture - Preliminary Gram Neg Bacilli Gram Neg Bacilli#2 Assessment and Plan Assessment: The patient is much more awake and alert today. She is less confused, but still forgetful which is her baseline. She is afebrile and her heart rate is now normal in the 80's. Her Rosado catheter is draining yellow urine with sediment. The right perinephric cavity was repacked today. There was slightly more purulent drainage noted than yesterday. (1) Perinephric abscess Current Visit: Yes Status: Acute Code(s): N15.1 - RENAL AND PERINEPHRIC ABSCESS SNOMED Code(s): 17212982 Plan: - Continue antibiotics per ID's recommendation - Maintain Rosado catheter until hemodynamically stable - Daily dressing changes with repacking of wound - Continue supportive care Impression and plan of care have been directed as dictated by the signing physician. Danna Bernal nurse practitioner acting as scribe for signing physician. Danna Bernal [facility] Palliative Care/Urology [facility] [id number] Email: [email or web address] The patient has denice examined and e=interviewed by me and I concur with the above note jen berman md
[2022-05-31] MEDS: MEROPENEM 1 GM in SODIUM CHLORIDE 0.9% 100 ML IVPB SCH ×2 (09:21→22:36)
[2022-05-31 11:40] LABS: Glucose,Whole Blood 107 mg/dL (70-110)
[2022-05-31] MEDS ORDERED: QUEtiapine 25 MG TAB PO PRN (13:58)
--- NOTE | 2022-05-31 14:00 | P.CN ---
Psychiatric Consult - . Consult date: 05/31/22 Consult:: 05/31/22 13:19 IDENTIFYING DATA: This patient is a 37 yo female, history of cognitive impairment, currently lives with her mother, she is unemployed, her mother is pending her guardian. REASON FOR REFERRAL: Psychiatry was consulted for visual hallucinations and psych history. HISTORY OF PRESENT ILLNESS: The patient presented to the hospital initially on 05/21 for altered mental status, cognitive impairment history, abscess on her lower back and on oxygen. She has a baseline level of security. Patient has had a prolonged hospital stay and has been in the ICU and also intubated. Patient is being followed by surgery. Patient apparently was making comments to the nursing staff and also hospitalist about seeing people in the room and other hallucinations. Patient is currently on a IV antibiotics. She is on Prozac, clomipramine melatonin Klonopin. Patient was seen today laying in the bed and was agreeable to speak to bond underwriter. She was watching television. She was fairly concrete and had minimal insight and judgment. She states that she is not having depression or or anxiety at this time. She claims that she does have some pain on her "kidney". She was alert and her name, does not know the date today and believes that she is in [place]. She claims that she was seeing people since being in the hospital. She claims that she does not hear voices however. She is denying any paranoia at this time not endorsing any other delusions. States that her appetite is fair however claims that her sleep has been poor about 3 hours. Nurse taking care of patient states that patient has been yelling out agitated at times and not sleeping. At this time patient denies any suicidal or homical ideations, intent or plan. Patient denies any auditory, and denies any paranoia or delusions. Patients admits to using no recreational drugs or cigarettes PAST PSYCHIATRIC HISTORY: Patient has a a history of intellectual disability and depression/anxiety. Patient is currently on Klonopin, melatonin, clomipramine and Prozac. Patient denies any previous psychiatric hospitalizations. Patient denies any psychiatric outpatient follow-up. Patient denies any history of suicide attempts in the past. Past Medical History: CVA/TIA, Deep Vein Thrombosis (DVT), Myocardial Infarction ([place]) Additional Past Medical History / Comment(s): morbid obesity, pancreatitis, history of coma - 10/24/14 - until end of december after suffering from a stroke. Last Myocardial Infarction Date:: 10/2014 History of Any Multi-Drug Resistant Organisms: ESBL, Other MDRO Date of last positivie culture/infection: 07/16/20 ESBL E.coli MDRO Source:: Urine-ESBL Past Surgical History: Cholecystectomy Additional Past Surgical History / Comment(s): Cystoscopy with placement of left double-J catheter 02/16/2018, Gastric bypass 2016 Past Anesthesia/Blood Transfusion Reactions: No Reported Reaction Past Psychological History: Anxiety, Depression, Panic Disorder Smoking Status: Never smoker Past Alcohol Use History: None Reported Past Drug Use History: Marijuana ALLERGIES: as per EMR. CHEMICAL DEPENDENCY HISTORY: as per HPI. FAMILY PSYCHIATRIC/SUBSTANCE USE HISTORY: She states that her mother has anxiety SOCIAL HISTORY: Patient was born and raised in [facility]. She states that she completed high school. She claims that she did go [facility] in the past. She claims that she does not know why. She lives with her mother who is her guardian. She is unemployed and collecting any income. MENTAL STATUS EXAM: General Appearance: Patient appears to be obese, stated age is alert, pleasant, and childlike at times. Attempts to cooperate. Patient appears to have fair hygiene and grooming wearing hospital gown with fair eye contact. Behavior: Patient is calmly lying in bed without any agitated behavior. Childl kenneth. Speech: Patient's speech is fluent and nonpressured. Mcdonald. Mood/Affect: Patient reports their mood is "some anxiety", affect is congruent Suicidality/Homicidality: Patient denies having any suicidal or homicidal ideation intent or plan. Perceptions: Patient admits to visual hallucinations of seeing people in the room. Denies any voices Though content/process: There is no evidence of any delusional thought content and thought process is concrete. Poverty of content. Memory and concentration: AOX3, grossly intact for the purposes of this session. Can spell "WORLD" backwards Judgment and insight: poor IMPRESSIONS: Delirium, unknown etiology, possibly secondary to medications, infection, toxic metabolic? Intellectual disability PLAN: -At this time patient DOES NOT meet criteria for inpatient psychiatric admission. -Delirium precautions recommended with patient including - avoiding use of narcotics and DISPLAY FABRICATOR sedatives, limit anticholinergic medications when possible, frequent re-orientation, minimize use of restraints, open window shades during the day and close them at night -Would recommend the following medication changes/additions: Start Seroquel 50 mg daily at bedtime for delirium/insomnia, Seroquel 25 twice a day when necessary for agitation/psychosis. Discontinue clomipramine due to anticholinergic effects. Can continue rest of psychiatric medications as p rescribed. -Communicated plan to patient's nurse -Will continue to follow along -Please contact with any questions. 05/31/22 13:53 05/31/22 13:59
[2022-05-31] MEDS ORDERED: IPRATROPIUM-ALBUTEROL 3 ML NEB INHALATION PRN (14:23)
--- NOTE | 2022-05-31 15:44 | P.PN ---
Subjective Progress Note Date: 05/31/22 Principal diagnosis: Right flank abscess/hematoma and bacteremia Patient is a 37-year-old female with a past medical history significant for CVA TIA DVT morbid obesity history of recurrent UTI patient presenting to the ER with concern for right flank pain, patient did have abnormal CT concerning for increasing mass to the right kidney area , patient has been diagnosed with right perinephric abscess and the patient is status post surgical drainage completed on 05/28/2022 On today's evaluation of that is 05/31/2022, the patient continues to be afebrile, the patient is breathing comfortably on 2 L nasal cannula oxygen, no chest pain shortness of the coughing and complaining of pain to the right flank area no vomiting or diarrhea Objective - Vital Signs Vital signs: Vital Signs Temp 98.2 F 05/31/22 08:00 Pulse 96 05/31/22 09:53 Resp 18 05/31/22 10:11 BP 89/61 05/31/22 11:56 Pulse Ox 100 05/31/22 08:00 FiO2 30 05/30/22 08:00 Intake & Output 05/30/22 05/31/22 05/31/22 18:59 06:59 18:59 Intake Total 474.031 4612 Output Total 175 2100 1 Balance 372.479 -760 -1 Intake: IV 525 0.9 KVO 200 Dextrose 5% in Water 1, 125 000 ml @ 125 mls/hr IV . Q9H12M [facility] with Sodium Bicarb (1 Meq/ml) 150 ml Rx#:[id number] Dextrose 5%-0.45% NaCl 1, 100 000 ml @ 100 mls/hr IV . Q10H [facility] Rx#:[id number] Meropenem 1 gm In Sodium 100 Chloride 0.9% 100 ml @ 33 .3 mls/hr IVPB Q12HR [facility] Rx#:[id number] Intake, IV Titration 22.479 500 Amount Meropenem 1 gm In Sodium 100 Chloride 0.9% 100 ml @ 33 .3 mls/hr IVPB Q12HR [facility] Rx#:[id number] Norepinephrine 4 mg In 22.479 Sodium Chloride 0.9% 250 ml @ 0.03 MCG/KG/MIN 11. 43 mls/hr IV .[id number] [facility] Rx#:[id number] Sodium Chloride 0.9% 1, 400 000 ml @ 50 mls/hr IV . Q20H [facility] Rx#:[id number] Oral 840 Output: Urine 175 2100 Uretheral (Rosado) 2100 Stool 1 Other: Voiding Method Indwelling Catheter Indwelling Catheter Indwelling Catheter # Bowel Movements 1 1 - Exam GENERAL DESCRIPTION: A middle-aged female lying in bed in no distress RESPIRATORY SYSTEM: Unlabored breathing , decreased breath sounds at bases HEART: S1 S2 regular rate and rhythm , ABDOMEN: Soft , no tenderness , EXTREMITIES: No edema feet - Labs CBC & Chem 7: 05/30/22 06:02 05/30/22 06:02 Labs: Abnormal Lab Results - Last 24 Hours (Table) 05/30/22 05/30/22 05/30/22 Range/Units 16:52 20:51 23:58 POC Glucose (mg/dL) 149 H 175 H 151 H (70-110) mg/dL Microbiology - Last 24 Hours (Table) 05/28/22 12:47 Gram Stain - Preliminary Kidney Wound Culture - Preliminary Klebsiella pneumoniae Gram Neg Bacilli 05/26/22 16:43 Blood Culture - Preliminary Blood No Growth after 96 hours Assessment and Plan (1) Positive blood culture Current Visit: Yes Status: Acute Code(s): R78.81 - BACTEREMIA SNOMED Code(s): 637630875 (2) Abscess of flank Current Visit: Yes Status: Acute Code(s): L02.211 - CUTANEOUS ABSCESS OF ABDOMINAL WALL SNOMED Code(s): 03056147 Plan: 1patient presented to the hospital with sepsis in this patient who did have a fever elevated white count has been complaining of flank pain with evidence of possible renal abscess/pyelonephritis likely from enteric gram-negative pathogen. Patient also have a positive blood culture with staph epi has been finalized with staphylococcus hemolyticus, repeat CT did not show any worsening however patient did have spontaneous drainage of this infected hematoma and the patient is status post open drainage of the abscess and debridement of necrotic tissue by urology completed on 05/28/2022 cultures currently growing 2 different gram-negative, and 1 has been finalized with ESBL Klebsiella, other sensitivities are pending 2the patient initial cultures grew ESBL Klebsiella, patient to continue with meropenem and continue supportive care Time with Patient: Less than 30
--- NOTE | 2022-05-31 15:58 | P.PN ---
Progress Note - Text Progress Note Date: 05/31/22 Chief Complaint: Right flank pain 37-year-old female with a known history of CVA with right-sided weakness, cognitive impairment, history of gastric bypass surgery, history of DVT on eliquis. oxygen at 2 L via nasal cannula since her COVID infection. CKD with baseline creatinine level around 3.0. resident of [facility], [facility] - long-term resident. known history of irregular vaginal bleeding - polycystic ovarian syndrome.. multiple DVTs in the past. Following gastric bypass surgery patient had a stroke and myocardial infarction. - resulted in cognitive impairment. poor short-term memory. - bedbound. contracture of the left hand and foot drop on the right leg. history of hyperlipidemia anxiety hypertension hypothyroid diabetes. Patient has a legal guardian Chandrika Special note: Patient always request more pain medications. But if explained she that this leads to her mental status changing and she is finding the same. This should be kept in mind when she asked for pain medications repeatedly. Will need to be given when she is uncomfortable. Once explained she becomes rather comfortable. Presented to the ER right flank pain and fever. For 2 days. Did have ecchymosis along the right flank. Hemoglobin was noted to be 6.7 did receive 1 unit of blood. In the ER patient had a cardiac arrest felt to be PEA as he suddenly became unresponsive. He received chest compression and spontaneous r eturn of circulation. And moved to the ICU. Has baseline memory impairment. Patient is started on ceftriaxone in the ER. Patient was then put on levo fed drip. Patient overnight was on BiPAP. This morning down to 2 L. 05/23/2022: Patient was seen this morning the ICU. Decreased in ecchymosis on the right flank. Indurated area. Tender. For pain to use K pad. Discussed with the nurse. Explained to the patient about pain. IV daptomycin. Per urology if further decrease in hemoglobin and enlarging right renal fossa that would require renal artery embolization at a tertiary center. Positive blood culture likely contaminant. Had some lunch 05/24/2022: ICU. Laying in bed. 2 L nasal cannula. Eating fair. Patient wanted stronger pain medications. K pad. She can have a home dose of Willard. Explained. Discussed with ID-the procedures repeat computed tomography scan to look at the size of the hematoma. On IV daptomycin. Zosyn has been discontinued. Patient was transferred to medical floor yesterday. So now after vacation became less responsive became hypotensive. Brought back to the ICU. With fluid bolus the blood pressure came back up. May 25: Patient moved to the medical floor. Has been refusing to eat. IV daptomycin. May 26: Patient not eating this morning again. Spoke to the nurse to encourage the patient to eat. Done on the lights and opened the drapes Patient is sleepy. We'll make the morning dose of Klonopin when necessary. Discussed with patient. Much improved pain in the right flank. ID is ordered IR to drain the possible infected hematoma on Saturday. Antibiotics being changed to Rocephin 2 g daily May 27: Patient started draining pus from the right flank area. It is felt that infected hematoma, has come through. Discussed with ID. He contacted Dr. brar for possible further drainage. Await further input. Afebrile. IV ceftriaxone May 28: So the patient this morning. He to patient to the OR by Dr. Zelaya. Right flank was exposed that was significant necrotic tissue draining meme pus. About a liter was drained. Clean with hydrogen peroxide. Wound was packed with Betadine soaked Kerlix. Sent to ICU May 29: ICU. On the vent FiO2 30 PEEP of 5. Started on levo fed 3 AM. Dressing is soaking easily with serosanguineous discharge. On IV meropenem. May 30: ICU. Patient has been extubated. Yesterday. Off levo fed. Had very little of lunch. She seeing people in the room. Wants me to be feed the person next to her. Normal saline. Sinus rhythm. Oxygen 2 L. Dressing and gauze packing change by Dr. Zelaya. Still purulent smelling. IV meropenem. Being followed by urology, ID. We'll consult psychiatry for visual hallucinations May 31: Moved to the medical floor. Had about 25% before breakfast. IV meropenem. Repeat cultures growing Klebsiella pneumonia and gram-negative bacilli. Daily dressing changes. Seen by Dr. Brown psychiatrist. Started Seroquel 50 mg at bedtime and Seroquel 25 mg when necessary. Discontinue clomipramine. Active Medications Acetaminophen (Acetaminophen Tab 325 Mg Tab) 650 mg PO Q6HR PRN PRN Reason: Mild Pain or Fever > 100.5 Last Admin: 05/28/22 03:05 Dose: 650 mg Hydrocodone Bitart/Acetaminophen (Hydrocodone/Apap 7.5-325mg 1 Each Tab) 1 each PO Q8H PRN PRN Reason: Pain Last Admin: 05/31/22 14:13 Dose: 1 each Albuterol/Ipratropium (Ipratropium-Albuterol 3 Ml Neb) 3 ml INHALATION RT-Q2H PRN PRN Reason: Shortness Of Breath Atorvastatin Calcium (Atorvastatin 20 Mg Tab) 20 mg PO HS@1999 [facility] Last Admin: 05/30/22 21:49 Dose: 20 mg Baclofen (Baclofen 10 Mg Tab) 10 mg PO HS@1999 [facility] Last Admin: 05/30/22 21:49 Dose: 10 mg Chlorhexidine Gluconate (Chlorhexidine Gluconate 15 Ml Cup) 15 ml MUCOUS MEM BID [facility] Last Admin: 05/31/22 09:00 Dose: Not Given Cholecalciferol (Cholecalciferol 25 Mcg (1000 Iu) Tablet) 75 mcg PO DAILY [facility] Last Admin: 05/31/22 09:11 Dose: 75 mcg Clonazepam (Clonazepam 0.5 Mg Tab) 0.25 mg PO [facility] Last Admin: 05/30/22 21:49 Dose: 0.25 mg Darbepoetin Kurtis (Darbepoetin Kurtis 25 Mcg/0.42 Ml Syringe) 25 mcg SQ MO@2200 [facility] Last Admin: 05/29/22 01:40 Dose: 25 mcg Dextrose/Water (Dextrose 50% Syringe 50 Ml) 25 ml IVP PER PROTOCOL PRN; Protocol PRN Reason: Hypoglycemia Dextrose/Water (Dextrose 50% Syringe 50 Ml) 50 ml IVP PER PROTOCOL PRN; Protocol PRN Reason: Hypoglycemia Famotidine (Famotidine 20 Mg Tab) 20 mg PO DAILY [facility] Last Admin: 05/31/22 09:11 Dose: 20 mg Ferrous Sulfate (Ferrous Sulfate 325 Mg Tab) 325 mg PO BID@799,1999 [facility] Last Admin: 05/31/22 09:11 Dose: 325 mg Fluoxetine HCl (Fluoxetine Hcl 20 Mg Cap) 20 mg PO DAILY [facility] Last Admin: 05/31/22 09:12 Dose: 20 mg Furosemide (Furosemide 80 Mg Tab) 80 mg PO DAILY [facility] Last Admin: 05/31/22 09:12 Dose: 80 mg Propofol 1,000 mg/ IV Solution 100 mls @ 9 mls/hr IV .Q11H7M [facility]; Protocol Last Admin: 05/31/22 09:00 Dose: Not Given Meropenem 1 gm/ Sodium (Chloride) 100 mls @ 33.3 mls/hr IVPB Q12HR [facility]; Protocol Last Admin: 05/31/22 09:21 Dose: 33.3 mls/hr Sodium Chloride (Saline 0.9%) 1,000 mls @ 50 mls/hr IV .Q20H [facility] Last Admin: 05/31/22 06:23 Dose: Not Given Insulin Aspart (Insulin Aspart (Novolog) 100 Unit/Ml Vial) 0 unit SQ Q6HR [facility]; Protocol Last Admin: 05/31/22 11:46 Dose: Not Given Insulin Detemir (Insulin Detemir (Levemir) 100 Unit/Ml Syr) 20 unit SQ [facility] Last Admin: 05/30/22 22:22 Dose: 20 unit Levothyroxine Sodium (Levothyroxine 25 Mcg Tab) 25 mcg PO @1999 [facility] Last Admin: 05/30/22 21:49 Dose: 25 mcg Melatonin (Melatonin 5 Mg Tablet) 5 mg PO @1999 [facility] Last Admin: 05/30/22 21:49 Dose: 5 mg Metoprolol Succinate (Metoprolol Succinate (Er) 50 Mg Tab.Er.24h) 50 mg PO DAILY [facility] Last Admin: 05/31/22 09:12 Dose: 50 mg Midodrine (Midodrine 5 Mg Tab) 10 mg PO AC-TID [facility] Last Admin: 05/31/22 11:56 Dose: 10 mg Miscellaneous Information (Potassium Replacement Protocol 1 Each Misc) 1 each MISCELLANE DAILY PRN; Protocol PRN Reason: Per Protocol Miscellaneous Information (Magnesium Replacement Protocol 1 Each Misc) 1 each MISCELLANE DAILY PRN; Protocol PRN Reason: Per Protocol Multivitamins (Multivitamins, Thera 1 Each Tab) 1 each PO DAILY [facility] Last Admin: 05/31/22 09:12 Dose: 1 each Naloxone HCl (Naloxone 0.4 Mg/Ml 1 Ml Vial) 0.2 mg IV Q2M PRN PRN Reason: Opioid Reversal Non-Formulary Medication (Norethindrone [Chani]) 0.35 mg PO DAILY [facility] Last Admin: 05/31/22 09:01 Dose: Not Given Ondansetron HCl (Ondansetron 4 Mg/2 Ml Vial) 4 mg IVP Q8HR PRN PRN Reason: Nausea And Vomiting Polyethylene Glycol (Polyethylene Glycol 3350 17 Gm Powd.Pack) 17 gm PO DAILY [facility] Last Admin: 05/31/22 09:02 Dose: Not Given Quetiapine Fumarate (Quetiapine 50 Mg Tab) 50 mg PO HS [facility] Quetiapine Fumarate (Quetiapine 25 Mg Tab) 25 mg PO BID PRN PRN Reason: Agitation or Acute Psychosis Senna/Docusate Sodium (Sennosides-Docusate Sodium 1 Each Tab) 2 each PO HS@1999 [facility] Last Admin: 05/30/22 21:49 Dose: 2 each Sodium Bicarbonate (Sodium Bicarbonate Tab 650 Mg Tab) 650 mg PO BID@ [facility] Last Admin: 05/31/22 09:11 Dose: 650 mg Past medical history to include: Stroke resulting in decreased memory (contracture, following, in 2014 following surgery, DVT, [place], gastric bypass in 2016, anxiety depression, muscle spasms, irregular menstrual bleeding, hypertension, hypothyroid chronic pain in the hands / back. Irregular vaginal bleeding-polycystic ovary syndrome. Multiple DVTs in the past. Following gastric bypass surgery patient had a stroke and myocardial infarction. Resulting in cognitive impairment. Hyperlipidemia, anxiety, hypertension, hypothyroid Social history: long-term resident of [facility], no smoking. Did smoke marijuana in high school. Pretty much bedbound. Has a legal guardian Chandrika Physical examination: VITAL SIGNS: 98.2, 78, 18, 102/64, 100% on 2 L GENERAL: Reclining in bed,, tired but answering e questions. EYES: Pupils equal. Conjunctiva pale. HEENT: External appearance of nose and ears normal, oral cavity grossly normal. NECK: JVD unable to assess masses not palpable. HEART: Heart sounds are muffled; no edema. LUNGS: Respiratory rate normal; distant breath sounds. ABDOMEN: Soft, dressing over the right flank, liver spleen not palpable, no masses palpable. PSYCH: Answering simple questions. NEUROLOGICAL: [Cranial nerves grossly intact; no facial asymmetry, contracture of the left hand. Right Foot drop INVESTIGATIONS, reviewed in the clinical context: Wound culture growing: Klebsiella pneumoniae, Proteus mirabilis May 30: White count 6.4 hemoglobin 7.4 platelets 28 potassium 3.6 creatinine 3.13 May 29: White count 7.3 hemoglobin 8 platelets 303 potassium 3.4 BUN 61 creatinine 3.5 May 28: Procalcitonin 2.3 May 27: White count 7.2 hemoglobin 7.7 potassium 3.9 creatinine 3.9 May 26: WBC 10.9 hemoglobin 7.9 platelets 453 potassium 3.5. 67 creatinine 4.07 May 25: White count 13.8 hemoglobin 7.9 platelets 434 potassium 3.8 BUN 64 creatinine 3.94 May 24: White count 15.1 hemoglobin 8 platelets 386 potassium 3.9 BUN 62 creatinine 3.98 troponin I less than 0.012, TSH 1.6 cortisol 30 Blood cultures [May 21]. Staphylococcus hemolyticus. Staphylococcusschleiferi. Repeat blood cultures negative May 23: White count 13.3 hemoglobin 8.5 platelets 327 potassium 3.5. An 60 creatinine 3.9 to 05/22/2022: White count 14.8 hemoglobin 8.4 platelets 474, sodium 137 creatinine 3.49 UA: Leukoesterase large. WBC 182 nitrate negative Admission labs: White count 16.1 hemoglobin 6.7 platelets 577 sodium 135 potassium 3.6 BUN 57 creatinine 3.46 lactic acid 2.[address] abdomen pelvis without contrast: Right adrenal gland not identified. Gallbladder surgically absent. 8.2 cm mass within the expected region of the right kidney. This was previously an atrophic kidney. That was enlarged. Perinephric stranding. Soft tissue density in the posterior right flank is a level of this right kidney. Small amount of air is present in the region of the right kidney. Ecchymosis appears to extend to the flank to the thigh. Chest x-ray film personally reviewed by me-infiltrate versus edema possible. EKG tracing personally reviewed by me-heart rate 108. Sinus tachycardia Renal ultrasound: Masslike area within the lower pole of the kidney in the right. Circumferentially wall thickening of the sigmoid colon. Assessment plan: -Infected hematoma at right renal bed being on eliquis - atrophic kidney previously. opened outwardly draining.: Slow to respond Blood cultures Staphylococcus hemolytic. Wound culture klebsiella Pneumoniae, Proteus Mirabilis: May 28: Meme pus was drained from the perinephric area. Iodine-soaked gauze . IV meropenem -Sepsis, POA from infected hematoma: -PEA cardiac arrest witnessed lasting about 3 minutes. Patient did receive 1 amp of epinephrine and CPR. Fluid bolus and levo fed. - discontinued -Combination of septic shock and hypovolemic shock from bleeding./Hematoma. Better Fluid resuscitation, IV levo fed-discontinued. IV antibiotics -Acute hypoxic respiratory failure from combination of obesity hypoventilation, questionable pneumonia.: Better Status post ventilator assist. Extubated May 29 -Chronic hypoxic respiratory failure On 2 L of nasal cannula at baseline -Chronic medical debility, patient is not ambulatory -Anemia of chronic kidney disease Hemoglobin was 7.3 on February 2022 -Septic shock On levo fed - obesity BMI 36.7 -Chronic left hand contracture, right foot drop -Chronic multiple DVTs eliquis 2.5 mg held -Hyperlipidemia Lipitor 20 mg daily at bedtime -Muscle spasm Baclofen 10 mg daily at bedtime -Essential hypertension Toprol-XL currently held because of low blood pressure -Hypothyroid Synthroid 25 g at bedtime -Visual hallucinations Consults psychiatry in view of psychiatry disorder underlying -Diabetes mellitus type 2, chronic on insulin Levemir 20 mg daily at bedtime. Follow Accu-Cheks -Chronic pain in the left hand and lower back. Willard 7.5 every 12 when necessary -Anxiety depression Klonopin 0.5 mg daily at bedtime Prozac 20 mg daily-outpatient -Bilateral nonobstructing renal calculi,-asymptomatic -Chronic kidney disease stage 4 from obstructive uropathy with a history of left ureteral stent. Creatinine 3.26 on 02/19/2022 -Chronic Right renal atrophy -Full code IV meropenem . Dressing changes . Psychiatry: Stop clomipramine. Seroquel 50 mg daily at bedtime
[2022-05-31 16:46] LABS: Glucose,Whole Blood 151 mg/dL (70-110)
--- NOTE | 2022-05-31 19:15 | P.PN ---
Subjective Progress Note Date: 05/31/22 I'm seeing this patient in new consultation today 05/22/2022 in the intensive care unit after suspected cardiac arrest in the emergency room. Patient is a 37-year-old white female with multiple significant comorbidities including myocardial infarction, diabetes mellitus type 2, chronic kidney disease, hypothyroidism, anemia, frequent urinary tract infections with ESBL producing E. coli, CVA, pancreatitis, cognitive delay, DVT, gastric bypass. Patient does have a public guardian is a poor historian. Patient did have a recent prolonged hospital admission in January, for acute hypoxic respiratory failure related to CHF exacerbation versus pneumonia. Patient was brought in yesterday afternoon for right flank pain. An abdominal and pelvis CT without contrast done yesterday showed an 8.2 cm mass within the region of the right kidney. The previously atrophic kidney was enlarged with perinephric stranding. There was soft tissue density subcutaneous and deep tissues the right flank at the level of enlarged kidney. There was small amount of air present within the region. Ecchymosis extended throughout the right flank to the thigh. Correlation for hematoma was recommended. While in the emergency room, the patient became unresponsive and a CODE BLUE was activated. The presenting rhythm was PEA. Patient was successfully resuscitated after 1 round of CPR and 1 amp of epinephrine with an estimated down time of 3 minutes. She did not require intubation. She was hypotensive and given 1 L normal saline bolus. She did require a norepinephrine infusion, currently running at 0.1 mics per kg per minute, through a right IJ triple-lumen central line catheter. Patient is currently resting comfortably on 4 L nasal cannula, in no acute distress. Patient is oxygenating at near 100%. Post resuscitation chest x-ray showed no acute cardiopulmonary process. The patient's right flank area has extensive soft tissue edema, no obvious bruising or ecchymosis. The area is tender to palp ation. A follow-up CBC showed a hemoglobin of 6.7, hematocrit 22.8, WBC 16, platelets 577,000. The patient was transfused 1 unit PRBC. Patient's BMP shows sodium 135, potassium 3.6, chloride 104, serum CO2 19, P1 57, creatinine chronically elevated at 3.46, glucose 137. Patient's lactic acid level was elevated at 2.9. Patient did receive a dose of Rocephin. She has been intermittently febrile with a T-max of 100.3F. Troponin was negative 1. NT proBNP was mildly elevated at 1720. Vital signs are stable. Patient is in the intensive care unit for closer monitoring. The patient is seen today 05/23/2022 in follow-up in the intensive care unit. She is currently awake and alert. Resting fairly comfortably in bed. She is maintaining O2 saturations up to 100% on 4 L/m per nasal cannula. No IV fluids currently. She has received 1 unit of packed red blood cells this admission. Current hemoglobin 8.5. Platelets 387. White count 13.3. Sodium 133. Potassium 3.5. Bicarb 19. BUN 60. Creatinine 3.92. Glucose 187. Urine positive for moderate bacteria and many white blood cells. Blood cultures positive for coag-negative staph. Urine culture pending. She is currently on daptomycin and Zosyn. ID service is on the case. She has been seen by urology regarding the right flank mass. Definitive diagnosis would require a CT-guided biopsy/aspiration. They feel they hemoglobin drops in the size of the per P nephrectomy mass increases it would be consistent for enlarging hematoma and may need transfer to a tertiary care center for right renal arterial embolization. The patient is seen today 05/24/2022 in follow-up in the intensive care unit. She is currently resting fairly comfortably in bed. Awake and alert. She was transferred out of the ICU yesterday but brought back to the ICU early this morning for hypotension. She is maintaining good O2 saturations in the 90s on 2 L/m per nasal cannula. She has normal saline at KVO. TSH and cortisol levels were within normal limits. Metoprolol is placed on hold. Patient did not require norepinephrine thus far. Initial blood cultures positive for coag- negative staph follow-up blood cultures revealing no growth. Urine culture no growth. White count 15.1. Hemoglobin 8.0. Platelets 386. Sodium 136. Potas sium 3.9. Bicarb 18. BUN 62. Creatinine 3.9. TSH 1.68. Cortisol level 30. She remains on Zosyn and daptomycin currently. The patient is seen today 05/25/2022 in follow-up in the intensive care unit. She is currently awake and alert in no acute distress. Continue O2 saturations up to 100% on 3 L/m nasal cannula. Currently down to 2 L. She is denying any worsening shortness of breath, cough or congestion. She is asking to go home. Computed tomography scan of the abdomen reveals a right renal mass with perinephric soft tissue component as well as soft tissue in the right subcutaneous flank region. The findings could be posttraumatic in the appropriate clinical setting and reflect renal edema with perinephric and subcutaneous hematoma versus infiltrative mass such as sarcoma renal cell carcinoma is not excluded. She is status post 1 unit of packed red blood cells this admission. Follow-up blood cultures reveal no growth. Urine culture revealed no growth. White count 13.8. He was 7.9. Platelets 434. Sodium 138. Potassium 3.8. Bicarb 18. BUN 64. Creatinine 3.94. Glucose 89. She is continued on daptomycin. Oral diuretics. Sodium bicarb tablets. The patient is seen today 05/26/2022 in follow-up on the regular medical floor. She is currently resting comfortably in bed. Awake and alert in no acute distress. Maintaining good O2 saturations in the 90s on room air. She is status post 1 unit of packed red blood cells this admission. Yesterday's hemoglobin was 7.9. Today's hemoglobin is pending. Blood cultures are positive for staph schleiferi SS, Staphylococcus hemolyticus from 05/21/2022. Blood culture from 05/23/2022 revealed no growth. Urine culture revealed no growth. Blood glucose 108. She is currently on daptomycin. The patient is seen today 05/27/2022 in follow-up on the regular medical floor. She is currently resting comfortably in bed. Awake and alert in no acute distress. Continues to maintain O2 saturations in the 90s on room air. She's afebrile. Hemodynamically stable. She is now thinking that she did take a fall while at current medical [place]. Hurting her back. The plan is for follow-up computed tomography scan to evaluate the right kidney mass versus hematoma in 4- 6 weeks. Hemoglobin has remained stable at 7.9. Today's labs are pending. Follow-up blood cultures are revealing no growth. She remains on ceftriaxone per ID services. Continued on sodium bicarb tablets. Most recent bicarb 17. BUN 67. Creatinine 4.07. Blood sugar 101. I am reevaluating this patient today 05/28/2022 in follow-up on the general medical floor. Patient is currently resting in bed, on 2 L nasal cannula, in no acute distress. No significant changes in patient's status. No new labs from today. Labs were repeated yesterday, and the patient's CBC shows a WBC count of 7.2, hemoglobin stable at 7.7, hematocrit 26.9, platelets 382,000. Patient's BMP from yesterday shows sodium 137, potassium 3.9, chloride 108, serum CO2 13, BUN 67, creatinine down to 3.9, glucose 193. D5W with 0.45% saline infusing at 100 mL per hour. Patient is receiving sodium bicarbonate tabs. Patient has remained afebrile. Continues to be covered on Rocephin. Procalcitonin levels pending. Blood pressure stable on the Midodrine. Vital signs are stable. On 05/29/2022, the patient is being seen for a follow-up. The patient was taken to the operating room yesterday. The patient had a right renal abscess. Open exploration with drainage of the large right perirenal abscess was done along with debridement of the necrotic tissue. As such, the patient is postop day #1. Estimated blood loss was only 50 mL. This woman is currently intubated on a mechanical ventilator. The primary cultures from the abscess is showing gram- negative bacillus and the patient is currently covered with IV cefepime. Noted the patient was septic. Her blood pressures remain soft and currently is on norepinephrine running at 0.02 mcg/kg/m. She remains intubated on a mechanical ventilator. This morning, he is on propofol running at 25 mcg/kg/m. The patient is adequately sedated at this point in time. She is on assist-control mode of mechanical ventilation at the rate of 16, tidal volume of 400, FiO2 of 30% with a PEEP of 5. The blood gases showed pH of 7.25 with a pCO2 of 39 and pO2 of 129. The chest x-ray from this morning shows adequate positioning of the orotracheal tube. The patient also has an orogastric tube in place. The x-rays essentially clear. As such, the blood gas is most consistent with metabolic acidosis. On her blood work, the serum bicarbs of 15 and a sodium level is at 135 and the patient has a non-anion gap metabolic acidosis as a gap is at 13. WBC count at 7.3 with a hemoglobin of 8.0. Note that her white cell count hasn't progressively improving. Her pro calcitonin level was at 4.15 at the time of admission and a drop down to 2.3. IV fluids are currently running in the form of D5 half-normal saline at the rate of 100 mL an hour. Surgical sites over the right flank area is saturated. Extremities are warm and pulses are present in all 4 extremities. On 05/30/2022, the patient is extubated. The patient was weaned off the mechanical ventilator and she was extubated yesterday without any major difficulties and currently she is on 2 L of oxygen by nasal cannula. Is postop day #2 following her surgical exploration and drainage of a large right perinephric abscess. The cultures are growing gram-negative bacteria and is consistent with Klebsiella and Proteus mirabilis. Note that the patient's Klebsiella is then ESBL producing organism. Based on that, antibiotics have been adjusted and the patient is currently on IV meropenem. Her breathing is comfortable. No measures to distress. Bili was 6.4 with a hemoglobin of 7.4, platelet count is 298, BUN is 59 with a creatinine of 3.13 and obvious of the renal function continues to improve slowly. Sodium is at 139. Potassium levels at 3.6. The pro-calcitonin level has dropped down to 2.3. IV fluids are running in the form of bicarb infusion at the rate of 125 mL an hour. Serum bicarb improved from 15 and is currently normalized up to 23. The bicarb infusion can be potentially discontinued and the patient will be switched to n ormal saline at the rate of 50 mL an hour. Swallow evaluation was done and she passed and she is going to be provided diet. On 05/31/2022, the patient has been moved out of the intensive care unit. She has been septic with gram-negative bacteria including Chem-7 pneumonia and currently she is on IV Merrem. Hemodynamically stable. No significant shortness of breath and she is currently on oxygen 2 L/m nasal cannula. No new labs are available from today. Most recent pro-calcitonin level was down to 2.3. Objective - Vital Signs Vital signs: Vital Signs Temp 98.3 F 05/31/22 14:00 Pulse 100 05/31/22 14:00 Resp 16 05/31/22 14:00 BP 115/69 05/31/22 14:00 Pulse Ox 100 05/31/22 14:00 FiO2 30 05/30/22 08:00 Intake & Output 05/31/22 05/31/22 06/01/22 06:59 18:59 06:59 Intake Total 1340 Output Total 2100 1001 Balance -760 -1001 Intake: Intake, IV Titration 500 Amount Meropenem 1 gm In Sodium 100 Chloride 0.9% 100 ml @ 33 .3 mls/hr IVPB Q12HR WILDER Rx#:[id number] Sodium Chloride 0.9% 1, 400 000 ml @ 50 mls/hr IV . Q20H WILDER Rx#:[id number] Oral 840 Output: Urine 2100 1000 Uretheral (Rosado) 2100 Stool 1 Other: Voiding Method Indwelling Catheter Indwelling Catheter # Bowel Movements 1 - Exam GENERAL EXAM: Alert, obese female, currently extubated currently on 2 L of oxygen by nasal cannula HEAD: Normocephalic and atraumatic EYES: Normal reaction of pupils, equal size. NOSE: Clear with pink turbinates. THROAT: No erythema or exudates. NECK: No masses, no JVD. CHEST: No chest wall deformity. LUNGS: Equal air entry with no crackles, wheeze, rhonchi or dullness. On 2 L nasal cannula. No conversational dyspnea or accessory muscle use. CVS: S1 and S2 normal with no audible murmur, regular rhythm. No extra heart sounds ABDOMEN: No hepatosplenomegaly, active bowel sounds, no guarding or rigidity. The patient has a surgical 1 site and the dressing is quite saturated. Bowel sounds are hypoactive. No direct tenderness or rebound tenderness or guarding SPINE: No scoliosis or deformity SKIN: No rashes. Generalized pallor. There is extensive soft tissue swelling on the right flank area. No bruising or ecchymosis. CENTRAL NERVOUS SYSTEM: No focal deficits, tone is normal in all 4 extremities. The patient is awake and alert. EXTREMITIES: There is mild bilateral nonpitting edema of the lower extremities. No clubbing, or cyanosis. Peripheral pulses are intact. - Labs CBC & Chem 7: 05/30/22 06:02 05/30/22 06:02 Labs: Abnormal Lab Results - Last 24 Hours (Table) 05/30/22 05/30/22 05/31/22 Range/Units 20:51 23:58 16:45 POC Glucose (mg/dL) 175 H 151 H 151 H (70-110) mg/dL Microbiology - Last 24 Hours (Table) 05/26/22 16:43 Blood Culture - Preliminary Blood No Growth after 120 hours 05/28/22 12:47 Gram Stain - Preliminary Kidney Wound Culture - Preliminary Klebsiella pneumoniae Gram Neg Bacilli Assessment and Plan Plan: PEA cardiac arrest witnessed with an estimated 3 minute downtime. Patient did receive CPR and 1 amp of epinephrine. Hypotension was treated with 1 L normal saline bolus, and started on a norepinephrine infusion. The patient had recovered and was off norepinephrine. Transferred out of the intensive care unit on 05/23/2022. Brought back to the and the intensive care unit travel agent 05/24/2022 with hypotension. Did not require any norepinephrine at this point. Add midodrine 10 mg 3 times a day. Hold metoprolol. Cortisol level 30. TSH normal. Now seen on the regular medical floor. Hemodynamically stable. Right perinephric abscess, likely secondary to gram-negative bacteria. The patient underwent open exploration and drainage of the abscess with debridement of the necrotic tissue. The patient had her surgery on 05/28/2022 and the patient is currently postop day #2. The patient has gram-negative bacteria including Klebsiella, ESBL producing organism and Proteus mirabilis. The patient is currently on IV meropenem. Pro-calcitonin level is improving. Right flank pain currently under investigation. An abdominal and pelvis CT without contrast showed an 8.2 cm mass within the expected region of the right kidney. There was an enlarged right kidney with perinephric stranding. There was soft tissue density in the subcutaneous and did tissues the right flank at the level of the enlarged kidney. Septic shock secondary to above, improved Non-anion gap metabolic acidosis, improved and the patient be taken off the b icarb infusion. Lactic acidosis secondary to above Anemia with a hemoglobin of 6.7 gm/dl status post transfusion of 1 unit PRBC. Current hemoglobin is at 7.4 Acute on chronic kidney disease, creatinine is improving and is down to 3.1 Diabetes mellitus type 2 Hypothyroidism History of CVA History of cognitive delay and memory impairment History of gastric bypass Plan: Chronically debilitated Treated for a septic shock and a right flank abscess and the patient underwent incision and drainage and currently still IV meropenem and a culture showing gram-negative bacteria including Klebsiella pneumonia Keep the patient liters of oxygen by nasal cannula normal saline at the rate of 50 mL an hour Provide diet was advanced her diet Continue IV meropenem based on the cultures Pro calcitonin level is improving White cell count is improving Creatinine is improving slowly Urology is on the case No hemodynamic instability and the patient is currently off pressors We'll continue to follow Pulmonary critical care services will sign off the case. We will leave the rest of the management up to urology, infectious disease and medicine.
[2022-05-31 21:30] LABS: Glucose,Whole Blood 194 mg/dL (70-110)
[2022-05-31] MEDS: INSULIN DETEMIR (LEVEMIR) 100 UNIT/ML SYR SQ SCH (22:07)
[2022-05-31] MEDS: QUEtiapine 50 MG TAB PO SCH (22:10)
[2022-05-31] MEDS: SENNOSIDES-DOCUSATE SODIUM 1 EACH TAB PO SCH (22:11)
[2022-05-31] MEDS: LEVOTHYROXINE 25 MCG TAB PO SCH (22:11)
[2022-05-31] MEDS: BACLOFEN 10 MG TAB PO SCH (22:11)
[2022-05-31] MEDS: MELATONIN 5 MG TABLET PO SCH (22:11)
[2022-05-31] MEDS: ATORVASTATIN 20 MG TAB PO SCH (22:11)
[2022-05-31] MEDS: clonazePAM 0.5 MG TAB PO SCH (22:12)
[2022-06-01 00:12] LABS: Glucose,Whole Blood 191 mg/dL (70-110)
[2022-06-01] MEDS: INSULIN ASPART (NovoLOG) 100 UNIT/ML VIAL SQ SCH ×5 (00:13→23:51)
[2022-06-01] MEDS: SODIUM CHLORIDE 0.9% 1,000 ML IV SCH ×2 (02:24→22:38)
[2022-06-01] MEDS: HYDROcodone/APAP 7.5-325MG 1 EACH TAB PO PRN ×3 (02:26→21:38)
[2022-06-01 06:10] LABS: Glucose,Whole Blood 96 mg/dL (70-110)
[2022-06-01] MEDS: MIDODRINE 5 MG TAB PO SCH ×3 (06:16→21:27)
[2022-06-01 08:07] LABS: Anisocytosis Moderate; Basophils % (A) 0 %; Eosinophils # (A) 0.4 k/uL (0-0.7); Eosinophils % (A) 6 %; HCT 25.7 % (34.0-46.0); HGB 7.9 gm/dL (11.4-16.0); Hypochromasia Marked; Lymphocytes # (A) 1.1 k/uL (1.0-4.8); Lymphocytes % (A) 17 %; MCH 26.5 pg (25.0-35.0); MCHC 30.6 g/dL (31.0-37.0); MCV 86.7 fL (80.0-100.0); Mean Platelet Volume 7.3; Monocytes # (A) 0.3 k/uL (0-1.0); Monocytes % (A) 5 %; Neutrophils # (A) 4.3 k/uL (1.3-7.7); Neutrophils % (A) 68 %; Platelet Count 326 k/uL (150-450); Poikilocytosis Slight; RBC 2.97 m/uL (3.80-5.40); RDW 20.3 % (11.5-15.5); WBC 6.3 k/uL (3.8-10.6)
[2022-06-01 08:27] LABS: African American GFR (CKD) 23 (>60 ml/min/1.73 sqM); Anion Gap 7 mmol/L; Blood Urea Nitrogen 53 mg/dL (7-17); Calcium 8.2 mg/dL (8.4-10.2); Carbon Dioxide 28 mmol/L (22-30); Chloride 106 mmol/L (98-107); Glucose 98 mg/dL (74-99); Non-African American GFR(CKD) 20 (>60 ml/min/1.73 sqM); Potassium 3.8 mmol/L (3.5-5.1); Sodium 141 mmol/L (137-145)
--- NOTE | 2022-06-01 09:32 | P.PN ---
Subjective Progress Note Date: 06/01/22 The patient is in the hospital with a perinephric abscess right. She had an excision of necrotic debris and drainage of a large abscess. SHe had an ICU stay and is now on the floor. The wound grew klebsiella and proteus. We have started dressing changes and the wound looks good. Her vss and she is lindsey uperating Objective - Vital Signs Vital signs: Vital Signs Temp 98.0 F 06/01/22 00:05 Pulse 88 06/01/22 00:05 Resp 16 06/01/22 00:05 BP 109/70 06/01/22 00:05 Pulse Ox 100 06/01/22 00:05 FiO2 30 05/30/22 08:00 Intake & Output 05/31/22 05/31/22 06/01/22 06:59 18:59 06:59 Intake Total 1340 840 Output Total 2100 1001 Balance -760 -1001 840 Intake: Intake, IV Titration 500 500 Amount Meropenem 1 gm In Sodium 100 100 Chloride 0.9% 100 ml @ 33 .3 mls/hr IVPB Q12HR [facility] Rx#:[id number] Sodium Chloride 0.9% 1, 400 400 000 ml @ 50 mls/hr IV . Q20H [facility]IL[facility] Rx#:[id number] Oral 840 340 Output: Urine 2100 1000 Uretheral (Rosado) 2100 Stool 1 Other: Voiding Method Indwelling Catheter Indwelling Catheter Indwelling Catheter # Bowel Movements 1 - Gastrointestinal Gastrointestinal Comment(s): Rt flank abscess cavity granulating - Labs CBC & Chem 7: 06/01/22 07:26 06/01/22 07:26 Labs: Abnormal Lab Results - Last 24 Hours (Table) 05/31/22 05/31/22 06/01/22 Range/Units 16:45 21:28 00:10 POC Glucose (mg/dL) 151 H 194 H 191 H (70-110) mg/dL Microbiology - Last 24 Hours (Table) 05/26/22 16:43 Blood Culture - Preliminary Blood No Growth after 120 hours 05/28/22 12:47 Gram Stain - Preliminary Kidney Wound Culture - Preliminary Klebsiella pneumoniae Gram Neg Bacilli Assessment and Plan Assessment: The patient is much more awake and alert today. She is less confused, but still forgetful which is her baseline. She is afebrile and her heart rate is now norm al in the 80's. Her Rosado catheter is draining yellow urine with sediment. The right perinephric cavity was repacked today. There was slightly more purulent drainage noted than yesterday. (1) Perinephric abscess Current Visit: Yes Status: Acute Code(s): N15.1 - RENAL AND PERINEPHRIC ABSCESS SNOMED Code(s): 12142735 Plan: Plan the patient continues to recouperate She is on ab. We will try her cath out today We will c/w dressing changes.
[2022-06-01] MEDS: NON FORMULARY DRUG (Norethindrone [Camila] 0.35 MG Tablet) PO SCH (09:51)
[2022-06-01] MEDS: CHOLECALCIFEROL 25 MCG (1000 IU) TABLET PO SCH (10:05)
[2022-06-01] MEDS: FUROSEMIDE 80 MG TAB PO SCH (10:05)
[2022-06-01] MEDS: FLUoxetine HCL 20 MG CAP PO SCH (10:05)
[2022-06-01] MEDS: MEROPENEM 1 GM in SODIUM CHLORIDE 0.9% 100 ML IVPB SCH ×3 (10:05→23:48)
[2022-06-01] MEDS: SODIUM BICARBONATE TAB 650 MG TAB PO SCH ×2 (10:05→21:28)
[2022-06-01] MEDS: FAMOTIDINE 20 MG TAB PO SCH (10:06)
[2022-06-01] MEDS: FERROUS SULFATE 325 MG TAB PO SCH ×2 (10:06→21:28)
[2022-06-01] MEDS: METOPROLOL SUCCINATE (ER) 50 MG TAB.ER.24H PO SCH (10:06)
[2022-06-01] MEDS: polyethylene glycoL 3350 17 GM POWD.PACK PO SCH (10:06)
[2022-06-01] MEDS: MULTIVITAMINS, THERA 1 EACH TAB PO SCH (10:06)
[2022-06-01] MEDS: CHLORHEXIDINE GLUCONATE 15 ML CUP MUCOUS MEM SCH ×2 (10:19→21:48)
--- NOTE | 2022-06-01 11:15 | CDI ---
Documentation Clarification Form Date: 05/29/2022 6:28:00 PM From: Jane Crook RN, CCDS Email: [email or web address] Admit Date: 05/22/2022 4:45:00 AM Patient Name: Radha Christensen Visit Number: [id number] Discharge Date: ATTENTION: The Clinical Documentation Specialists (CDI) and [facility] Coding Staff appreciate your assistance in clarifying documentation. Please respond to the clarification below the line at the bottom and electronically sign. The CDI & [facility] Coding staff will review the response and follow-up if needed. Please note: Queries are made part of the Legal Health Record. If you have any questions, please contact the author of this message via ITS. Dr. Aubrey Moore, A debridement is documented in the 05/28 procedure note. Additional clarification regarding the procedure is requested. History/Risk Factors: Right perinephric abscess Clinical Indicators: CT abdomen/pelvis: Soft tissue density in the subcutaneous and deep tissues of the right flank at the level of the enlarged kidney. Small amount of air is present within this region. Ecchymosis appears to extend through the flank to the thigh. Correlate for hematoma. Other etiologies include sarcoma or other neoplasm. Op note: "The right flank was exposed. There is necrotic tissue with drainage of meme pus. I excised the necrotic area which was about 4 x 6 cm. I drained out about a liter. I then irrigated thoroughly the retroperitoneal cavity with half- strength hydrogen peroxide." Treatment: From the OP note: Open exploration with drainage of large right perirenal abscess and debridement of necrotic tissue. Please clarify the type of procedure performed: [ ] Excisional debridement (the removal of necrotic, devitalized tissue or slough by means of cutting away of tissue) [ ] Non-excisional debridement (the removal of necrotic, devitalized tissue or slough by means of flushing, brushing, or washing. (Irrigation) [ ] Other; please specify [ ] Unable to determine Five elements required for accurate and compliant documentation of a debridement: Technique used (e.g., excisional, excised, cutting, brushing, jet lavage etc.) Instrument(s) used (e.g., scalpel, curette, etc.) Nature of the tissue removed (e.g., necrotic, devitalized tissues, non-viable tissue, etc.) Appearance and size of the wound (e.g., down to fresh bleeding tissue, 7cm x 10cm, etc.) Depth of the debridement* (e.g., skin, subcutaneous tissue, fascia, muscle, bone, etc.) I I excised necrotic tissue and drained a large abscess MTDD
[2022-06-01 11:27] LABS: Glucose,Whole Blood 94 mg/dL (70-110)
--- NOTE | 2022-06-01 13:06 | P.PN ---
Subjective Progress Note Date: 06/01/22 Principal diagnosis: Right flank abscess/hematoma and bacteremia Patient is a 37-year-old female with a past medical history significant for CVA TIA DVT morbid obesity history of recurrent UTI patient presenting to the ER with concern for right flank pain, patient did have abnormal CT concerning for increasing mass to the right kidney area , patient has been diagnosed with right perinephric abscess and the patient is status post surgical drainage completed on 05/28/2022 On today's evaluation of that is 06/01/2022, the patient remains to be afebrile, the patient is breathing comfortably on 2 L nasal cannula oxygen, patient is more awake and alert today and denies chest pain shortness of the coughing and complaining of pain to the right flank area no vomiting or diarrhea Objective - Vital Signs Vital signs: Vital Signs Temp 97.7 F 06/01/22 08:00 Pulse 71 06/01/22 08:00 Resp 16 06/01/22 08:00 BP 100/64 06/01/22 08:00 Pulse Ox 100 06/01/22 09:24 FiO2 30 05/30/22 08:00 Intake & Output 05/31/22 06/01/22 06/01/22 18:59 06:59 18:59 Intake Total 840 Output Total 1001 Balance -1001 840 Intake: Intake, IV Titration 500 Amount Meropenem 1 gm In Sodium 100 Chloride 0.9% 100 ml @ 33 .3 mls/hr IVPB Q12HR WILDER Rx#:[id number] Sodium Chloride 0.9% 1, 400 000 ml @ 50 mls/hr IV . Q20H WLIDER Rx#:[id number] Oral 340 Output: Urine 1000 Stool 1 Other: Voiding Method Indwelling Catheter Indwelling Catheter Indwelling Catheter # Bowel Movements 1 - Exam GENERAL DESCRIPTION: A middle-aged female lying in bed in no distress RESPIRATORY SYSTEM: Unlabored breathing , decreased breath sounds at bases HEART: S1 S2 regular rate and rhythm , ABDOMEN: Soft , no tenderness , EXTREMITIES: No edema feet - Labs CBC & Chem 7: 06/01/22 07:26 06/01/22 07:26 Labs: Abnormal Lab Results - Last 24 Hours (Table) 05/31/22 05/31/22 06/01/22 Range/Units 16:45 21:28 00:10 RBC (3.80-5.40) m/uL Hgb (11.4-16.0) gm/dL Hct (34.0-46.0) % MCHC (31.0-37.0) g/dL RDW (11.5-15.5) % BUN (7-17) mg/dL Creatinine (0.52-1.04) mg/dL POC Glucose (mg/dL) 151 H 194 H 191 H (70-110) mg/dL Calcium (8.4-10.2) mg/dL 06/01/22 06/01/22 Range/Units 07:26 07:26 RBC 2.97 L (3.80-5.40) m/uL Hgb 7.9 L (11.4-16.0) gm/dL Hct 25.7 L (34.0-46.0) % MCHC 30.6 L (31.0-37.0) g/dL RDW 20.3 H (11.5-15.5) % BUN 53 H (7-17) mg/dL Creatinine 2.95 H (0.52-1.04) mg/dL POC Glucose (mg/dL) (70-110) mg/dL Calcium 8.2 L (8.4-10.2) mg/dL Microbiology - Last 24 Hours (Table) 05/28/22 12:47 Gram Stain - Final Kidney Wound Culture - Final Klebsiella pneumoniae Proteus mirabilis 05/28/22 12:47 Anaerobic Culture - Final Kidney 05/26/22 16:43 Blood Culture - Preliminary Blood No Growth after 120 hours Assessment and Plan (1) Positive blood culture Current Visit: Yes Status: Acute Code(s): R78.81 - BACTEREMIA SNOMED Code(s): 478401455 (2) Abscess of flank Current Visit: Yes Status: Acute Code(s): L02.211 - CUTANEOUS ABSCESS OF ABDOMINAL WALL SNOMED Code(s): 10465751 Plan: 1patient presented to the hospital with sepsis in this patient who did have a fever elevated white count has been complaining of flank pain with evidence of possible renal abscess/pyelonephritis likely from enteric gram-negative path ogen. Patient also have a positive blood culture with staph epi has been finalized with staphylococcus hemolyticus, repeat CT did not show any worsening however patient did have spontaneous drainage of this infected hematoma and the patient is status post open drainage of the abscess and debridement of necrotic tissue by urology completed on 05/28/2022 cultures currently growing 2 different gram-negative, and has been finalized with ESBL Klebsiella and Proteus mirabilis 2the patient to continue with meropenem 2 weeks on discharge was a PICC line has been ordered and continue supportive care Time with Patient: Less than 30
[2022-06-01] MEDS ORDERED: LORazepam 2 MG/ML INJ IV STA (14:40)
[2022-06-01 14:49] VITALS: BMI 40.2
[2022-06-01] MEDS ORDERED: LIDOCAINE 1% PF 10 MG/ML (5 ML AMP) SQ ONE ×2 (15:24→15:25)
[2022-06-01 16:39] LABS: Glucose,Whole Blood 89 mg/dL (70-110)
--- NOTE | 2022-06-01 16:40 | IR ---
PICC LINE PLACEMENT: HISTORY: Infection requiring long-term antibiotic therapy PROCEDURE: Ultrasound and fluoroscopic guidance of PICC line placement. DUMP GRADER: Dr. Preciado COMPLICATIONS: None ANESTHESIA: 1% Lidocaine locally. FINDINGS/TECHNIQUE: The procedure was explained to the patient. The risks, complications, benefits and alternatives were discussed and any questions were answered. Informed consent was obtained. The patient was placed supine on the fluoroscopic table and prepped and draped in the usual sterile fash ion. Utilizing a 21 gauge needle and sonographic and fluoroscopic guidance, access in the right cep halic vein was achieved and there is placement of a 0.018 guidewire. The vein is patent. A 4-F. she ath was placed over the guidewire. The guidewire and dilator were removed and a 4-F. PICC line was p laced through the sheath with the tip at the level of the SVC. The sheath was removed, the catheter was flushed and sutured into position. The patient was stable throughout the procedure and remained stable. The vein puncture was patent under ultrasound. A jiménez scale image was obtained to document patency of the vein punctured. All elements of the maximal barrier technique were utilized. FLUOROSCOPY TIME: Please see [employer] conservation laborer documentation, as dose values were not available at time of dic tation. IMPRESSION: Successful PICC line placement under ultrasound and fluoroscopic guidance.
--- NOTE | 2022-06-01 16:49 | P.PN ---
Progress Note - Text Progress Note Date: 06/01/22 Senior Analyst [employer] attempted to see patient today for psychiatric follow-up regarding patient's delirium and psychiatric condition. Patient was not in the room today and doing imaging, MRI. Nurse claims that patient has been doing better today and has been less demanding and not yelling out as much and also slept fairly well last night. Continue on with current plan and medications and Seroquel when necessary if needed for agitation/psychosis. If any other questions or concerns arise please contact mental health unit. At this time will sign off.
--- NOTE | 2022-06-01 16:50 | P.DS ---
Providers Date of admission: 05/22/22 04:45 Expected date of discharge: 06/02/22 Attending physician: Dennis Stacy Consults: 05/21/22 18:43 Consult Physician Urgent Consulting Provider: Bhupendra Cloud Consult Reason/Comments: Right flank mass vs developing abscess Do you want consulting provider notified?: Yes 05/21/22 22:07 Consult Physician Urgent Consulting Provider: Ray Solano Consult Reason/Comments: ICU Placement/Cardiac Arrest Do you want consulting provider notified?: Already Contacted 05/22/22 07:57 Consult Physician Urgent Consulting Provider: Aubrey Moore Consult Reason/Comments: englarged kidney, possible mass Do you want consulting provider notified?: Yes 05/28/22 11:01 Consult Physician Stat Consulting Provider: Cj Stock Consult Reason/Comments: Surgical clearence Do you want consulting provider notified?: Already Contacted 05/28/22 13:51 Consult Physician Stat Consulting Provider: Ray Solano Consult Reason/Comments: unable to extubate in pacu Do you want consulting provider notified?: Already Contacted 05/30/22 15:44 Consult Physician Routine Consulting Provider: Moncho Brown Consult Reason/Comments: Visual hallucinations. Psych history Do you want consulting provider notified?: Yes 06/01/22 13:24 Consult Physician Routine Consulting Provider: Donnie Felder Consult Reason/Comments: needs a picc line. Do you want consulting provider notified?: Already Contacted Primary care physician: [facility] Course: Chief Complaint: Right flank pain 37-year-old female with a known history of CVA with right-sided weakness, cognitive impairment, history of gastric bypass surgery, history of DVT on eliquis. oxygen at 2 L via nasal cannula since her COVID infection. CKD with baseline creatinine level around 3.0. resident of [facility], [facility] - long-term resident. known history of irregular vaginal bleeding - polycystic ovarian syndrome.. multiple DVTs in the past. Following gastric bypass surgery patient had a stroke and myocardial infarction. - resulted in cognitive impairment. poor short-term memory. - bedbound. contracture of the left hand and foot drop on the right leg. history of hyperlipidemia anxiety hypertension hypothyroid diabetes. Patient has a legal guardian Chandrika Special note: Patient always request more pain medications. But if explained she that this leads to her mental status changing and she is finding the same. This should be kept in mind when she asked for pain medications repeatedly. Will need to be given when she is uncomfortable. Once explained she becomes rather comfortable. Presented to the ER right flank pain and fever. For 2 days. Did have ecchymosis along the right flank. Hemoglobin was noted to be 6.7 did receive 1 unit of blood. In the ER patient had a cardiac arrest felt to be PEA as he suddenly became unresponsive. He received chest compression and spontaneous return of circulation. And moved to the ICU. Has baseline memory impairment. Patient is started on ceftriaxone in the ER. Patient was then put on levo fed drip. Patient overnight was on BiPAP. This morning down to 2 L. 05/23/2022: Patient was seen this morning the ICU. Decreased in ecchymosis on the right flank. Indurated area. Tender. For pain to use K pad. Discussed with the nurse. Explained to the patient about pain. IV daptomycin. Per urology if further decrease in hemoglobin and enlarging right renal fossa that would require renal artery embolization at a tertiary center. Positive blood culture likely contaminant. Had some lunch 05/24/2022: ICU. Laying in bed. 2 L nasal cannula. Eating fair. Patient wanted stronger pain medications. K pad. She can have a home dose of Nordheim. Explained. Discussed with ID-the procedures repeat computed tomography scan to look at the size of the hematoma. On IV daptomycin. Zosyn has been discontinued. Patient was transferred to medical floor yesterday. So now after vacation became less responsive became hypotensive. Brought back to the ICU. With fluid bolus the blood pressure came back up. May 25: Patient moved to the medical floor. Has been refusing to eat. IV daptomycin. May 26: Patient not eating this morning again. Spoke to the nurse to encourage the patient to eat. Done on the lights and opened the drapes Patient is sleepy. We'll make the morning dose of Klonopin when necessary. Discussed with patient. Much improved pain in the right flank. ID is ordered IR to drain the possible infected hematoma on Saturday. Antibiotics being changed to Rocephin 2 g daily May 27: Patient started draining pus from the right flank area. It is felt that infected hematoma, has come through. Discussed with ID. He contacted Dr. brar for possible further drainage. Await further input. Afebrile. IV ceftriaxone May 28: So the patient this morning. He to patient to the OR by Dr. Zelaya. Right flank was exposed that was significant necrotic tissue draining meme pus. About a liter was drained. Clean with hydrogen peroxide. Wound was packed with Betadine soaked Kerlix. Sent to ICU May 29: ICU. On the vent FiO2 30 PEEP of 5. Started on levo fed 3 AM. Dressing is soaking easily with serosanguineous discharge. On IV meropenem. May 30: ICU. Patient has been extubated. Yesterday. Off levo fed. Had very little of lunch. She seeing people in the room. Wants me to be feed the person next to her. Normal saline. Sinus rhythm. Oxygen 2 L. Dressing and gauze packing change by Dr. Zelaya. Still purulent smelling. IV meropenem. Being followed by urology, ID. We'll consult psychiatry for visual hallucinations May 31: Moved to the medical floor. Had about 25% before breakfast. IV meropenem. Repeat cultures growing Klebsiella pneumonia and gram-negative bacilli. Daily dressing changes. Seen by Dr. Brown psychiatrist. Started Seroquel 50 mg at bedtime and Seroquel 25 mg when necessary. Discontinue clomipramine. June 01: Patient getting a PICC line today. For 4 more weeks of IV meropenem. Patient is to be cajoled into eating. Patient be discharged to the ECF tomorrow morning. Eliquis to be resumed when dressing changes don't cause further bleeding. Patient will follow with ID and urology Discussion and discharge planning more than 35 minutes Past medical history to include: Stroke resulting in decreased memory (contracture, following, in 2015 following surgery, DVT, DE, gastric bypass in 2016, anxiety depression, muscle spasms, irr egular menstrual bleeding, hypertension, hypothyroid chronic pain in the hands / back. Irregular vaginal bleeding-polycystic ovary syndrome. Multiple DVTs in the past. Following gastric bypass surgery patient had a stroke and myocardial infarction. Resulting in cognitive impairment. Hyperlipidemia, anxiety, hypertension, hypothyroid Social history: long-term resident of [facility] on, no smoking. Did smoke marijuana in high school. Pretty much bedbound. Has a legal guardian Chandrika Physical examination: VITAL SIGNS: 98.1, 84, 15, 10 7 x 82, 100% on 2 L GENERAL: Reclining in bed,, tired but answering e questions. EYES: Pupils equal. Conjunctiva pale. HEENT: External appearance of nose and ears normal, oral cavity grossly normal. NECK: JVD unable to assess masses not palpable. HEART: Heart sounds are muffled; no edema. LUNGS: Respiratory rate normal; distant breath sounds. ABDOMEN: Soft, dressing over the right flank, liver spleen not palpable, no masses palpable. PSYCH: Answering simple questions. NEUROLOGICAL: [Cranial nerves grossly intact; no facial asymmetry, contracture of the left hand. Right Foot drop INVESTIGATIONS, reviewed in the clinical context: June 01: White count 6.3 hemoglobin 7.9 platelets 326 potassium 3.8 BUN 53 creatinine 2.95 Wound culture growing: Klebsiella pneumoniae, Proteus mirabilis May 28: Procalcitonin 2.3 May 24: White count 15.1 hemoglobin 8 platelets 386 potassium 3.9 BUN 62 creatinine 3.98 troponin I less than 0.012, TSH 1.6 cortisol 30 Blood cultures [May 21]. Staphylococcus hemolyticus. Staphyloc occusschleiferi. Repeat blood cultures negative UA: Leukoesterase large. WBC 182 nitrate negative Admission labs: White count 16.1 hemoglobin 6.7 platelets 577 sodium 135 potassium 3.6 BUN 57 creatinine 3.46 lactic acid 2.[address] abdomen pelvis without contrast: Right adrenal gland not identified. Gallbladder surgically absent. 8.2 cm mass within the expected region of the right kidney. This was previously an atrophic kidney. That was enlarged. Perinephric stranding. Soft tissue density in the posterior right flank is a level of this right kidney. Small amount of air is present in the region of the right kidney. Ecchymosis appears to extend to the flank to the thigh. Chest x-ray film personally reviewed by me-infiltrate versus edema possible. EKG tracing personally reviewed by me-heart rate 108. Sinus tachycardia Renal ultrasound: Masslike area within the lower pole of the kidney in the right. Circumferentially wall thickening of the sigmoid colon. Assessment plan: -Infected hematoma at right renal bed being on eliquis - atrophic kidney previously. opened outwardly draining.: Blood cultures Staphylococcus hemolytic. Wound culture klebsiella Pneumoniae, Proteus Mirabilis: May 28: Meme pus was drained from the perinephric area. Iodine-soaked gauze . IV meropenem for 28 days more -Sepsis, POA from infected hematoma: Better -PEA cardiac arrest witnessed lasting about 3 minutes. Patient did receive 1 amp of epinephrine and CPR. Fluid bolus and levo fed. - discontinued -Combination of septic shock and hypovolemic shock from bleeding./Hematoma. Better Fluid resuscitation, IV levo fed-discontinued. IV antibiotics -Acute hypoxic respiratory failure from combination of obesity hypoventilation, questionable pneumonia.: Better Status post ventilator assist. Extubated May 29 -Chronic hypoxic respiratory failure On 2 L of nasal cannula at baseline -Chronic medical debility, patient is not ambulatory -Anemia of chronic kidney disease Hemoglobin was 7.3 on February 2022 -Septic shock: Resolved On levo fed - obesity BMI 36.7 -Chronic left hand contracture, right foot drop -Chronic multiple DVTs eliquis 2.5 mg to be resumed when bleeding from wound care dressing stops -Hyperlipidemia Lipitor 20 mg daily at bedtime -Muscle spasm Baclofen 10 mg daily at bedtime -Essential hypertension Toprol-XL currently held because of low blood pressure -Hypothyroid Synthroid 25 g at bedtime -Visual hallucinations: Resolved -Diabetes mellitus type 2, chronic on insulin Levemir 20 mg daily at bedtime. Follow Accu-Cheks -Chronic pain in the left hand and lower back. Nordheim 7.5 every 12 when necessary -Anxiety depression Klonopin 0.5 mg daily at bedtime Prozac 20 mg daily-outpatient -Bilateral nonobstructing renal calculi,-asymptomatic -Chronic kidney disease stage 4 from obstructive uropathy with a history of left ureteral stent. Creatinine 3.26 on 02/19/2022 -Chronic Right renal atrophy -Full code Disposition: [facility] Plan - Discharge Summary New Discharge Prescriptions: New Chlorhexidine Gluconate [Peridex] 15 ml MUCOUS MEM BID ml QUEtiapine [SEROquel] 25 mg PO BID PRN tab PRN Reason: Agitation Or Acute Psychosis Meropenem [Merrem] 1 gm IVPB Q12H #28 each Insulin Detemir (Levemir) [Levemir] 20 unit SQ HS each INSULIN ASPART (NovoLOG) [NovoLOG (formulary)] 0 unit SQ Q6HR each Famotidine [Pepcid] 20 mg PO DAILY tab Midodrine [ProAmatine] 10 mg PO AC-TID tab QUEtiapine [SEROquel] 50 mg PO HS tab Continue FLUoxetine HCL [PROzac] 20 mg PO DAILY Multivitamins, Thera [Multivitamin (formulary)] 1 tab PO DAILY Levothyroxine Sodium [Synthroid] 25 mcg PO HS@1999 Acetaminophen Tab [Tylenol] 650 mg PO Q6H PRN PRN Reason: Pain Sennosides/Docusate Sodium [Senna Plus 8.6-50 mg Softgel] 2 cap PO HS@1999 polyethylene glycoL 3350 [Miralax] 17 gm PO DAILY Metoprolol Succinate (ER) [Toprol XL] 50 mg PO DAILY tab Baclofen 10 mg PO HS@1999 Atorvastatin [Lipitor] 20 mg PO HS@1999 Norethindrone [Chani] 0.35 mg PO DAILY Darbepoetin Kurtis [Aranesp] 25 mcg SQ MO@2200 Sodium Bicarbonate 650 mg PO BID@0800,1999 Furosemide [Lasix] 80 mg PO DAILY tab Cholecalciferol [Vitamin D3 (25 Mcg = 1000 Iu)] 75 mcg PO DAILY Apixaban [Eliquis] 2.5 mg PO BID@0800,1999 Ferrous Sulfate [Feosol] 325 mg PO BID@0800,1999 HYDROcodone/APAP 7.5-325MG [Nordheim 7.5-325] 1 tab PO Q8H PRN #9 tab PRN Reason: Pain Changed clonazePAM [KlonoPIN] 0.25 mg PO HS #3 tab Discontinued Insulin Glargine,Hum.rec.anlog [Lantus Solostar Pen] 27 unit SQ HS@1999 clomiPRAMINE [Anafranil] 50 mg PO HS@1999 Magnesium Hydroxide [Milk of Magnesia] 2,400 mg PO Q72H PRN PRN Reason: Constipation Melatonin 5 mg PO HS@1999 Discharge Medication List FLUoxetine HCL [PROzac] 20 mg PO DAILY 02/15/18 [History] Levothyroxine Sodium [Synthroid] 25 mcg PO HS@199902/15/18 [History] Multivitamins, Thera [Multivitamin (formulary)] 1 tab PO DAILY 02/15/18 [History] Acetaminophen Tab [Tylenol] 650 mg PO Q6H PRN 09/03/18 [History] Baclofen 10 mg PO HS@199907/25/20 [History] Sennosides/Docusate Sodium [Senna Plus 8.6-50 mg Softgel] 2 cap PO HS@199907/25/20 [History] Atorvastatin [Lipitor] 20 mg PO HS@199909/29/20 [History] Darbepoetin Kurtis [Aranesp] 25 mcg SQ MO@2200 01/26/21 [History] Norethindrone [Chani] 0.35 mg PO DAILY 01/26/21 [History] Sodium Bicarbonate 650 mg PO BID@0800,199902/06/22 [History] polyethylene glycoL 3350 [Miralax] 17 gm PO DAILY 02/06/22 [History] Furosemide [Lasix] 80 mg PO DAILY tab 02/19/22 [Rx] Metoprolol Succinate (ER) [Toprol XL] 50 mg PO DAILY tab 02/19/22 [Rx] Apixaban [Eliquis] 2.5 mg PO BID@08,199905/21/22 [History] Cholecalciferol [Vitamin D3 (25 Mcg = 1000 Iu)] 75 mcg PO DAILY 05/21/22 [History] Ferrous Sulfate [Feosol] 325 mg PO BID@0800,199905/21/22 [History] Chlorhexidine Gluconate [Peridex] 15 ml MUCOUS MEM BID ml 06/01/22 [Rx] Famotidine [Pepcid] 20 mg PO DAILY tab 06/01/22 [Rx] HYDROcodone/APAP 7.5-325MG [Nordheim 7.5-325] 1 tab PO Q8H PRN #9 tab 06/01/22 [Rx] INSULIN ASPART (NovoLOG) [NovoLOG (formulary)] 0 unit SQ Q6HR each 06/01/22 [Rx] Insulin Detemir (Levemir) [Levemir] 20 unit SQ HS each 06/01/22 [Rx] Meropenem [Merrem] 1 gm IVPB Q12H #28 each 06/01/22 [Rx] Midodrine [ProAmatine] 10 mg PO AC-TID tab 06/01/22 [Rx] QUEtiapine [SEROquel] 25 mg PO BID PRN tab 06/01/22 [Rx] QUEtiapine [SEROquel] 50 mg PO HS tab 06/01/22 [Rx] clonazePAM [KlonoPIN] 0.25 mg PO HS #3 tab 06/01/22 [Rx] Follow up Appointment(s)/Referral(s): Moncho Suarez DO [Primary Care Provider] - 1-2 days [facility], [NON-STAFF] - 1 Week Bhupendra Cloud MD [STAFF PHYSICIAN] - 1 Week Aubrey Moore MD [STAFF PHYSICIAN] - 1 Week Activity/Diet/Wound Care/Special Instructions: Daily wet to dry dressing with Kerlix packing, cover with ABDs. Resume eliquis went no further bleeding from wound care changes
[2022-06-01] MEDS: QUEtiapine 50 MG TAB PO SCH (21:28)
[2022-06-01] MEDS: MELATONIN 5 MG TABLET PO SCH (21:28)
[2022-06-01] MEDS: ATORVASTATIN 20 MG TAB PO SCH (21:28)
[2022-06-01] MEDS: clonazePAM 0.5 MG TAB PO SCH (21:28)
[2022-06-01] MEDS: SENNOSIDES-DOCUSATE SODIUM 1 EACH TAB PO SCH (21:28)
[2022-06-01] MEDS: BACLOFEN 10 MG TAB PO SCH (21:28)
[2022-06-01] MEDS: LEVOTHYROXINE 25 MCG TAB PO SCH (21:28)
[2022-06-01] MEDS: INSULIN DETEMIR (LEVEMIR) 100 UNIT/ML SYR SQ SCH (21:29)
[2022-06-01 23:50] LABS: Glucose,Whole Blood 128 mg/dL (70-110)
[2022-06-02] MEDS: HYDROcodone/APAP 7.5-325MG 1 EACH TAB PO PRN ×2 (05:04→14:08)
[2022-06-02 06:17] LABS: Glucose,Whole Blood 69 mg/dL (70-110)
[2022-06-02] MEDS: INSULIN ASPART (NovoLOG) 100 UNIT/ML VIAL SQ SCH ×2 (06:19→12:55)
[2022-06-02] MEDS: MIDODRINE 5 MG TAB PO SCH ×2 (06:21→14:08)
[2022-06-02 07:38] VITALS: BP 98/64; PULSE 68; RESP 16; TEMP 97.9
--- NOTE | 2022-06-02 10:05 | P.PN ---
Progress Note - Text Progress Note Date: 06/02/22 The patient was in the hospital with a right flank mass that turned out to be a perinephric abscess. This was drained and the wound was debris treated. She is recuperating. She is ready to be transferred back to the [facility] care facility at which she resides up. The wound is being dressed twice daily. She should follow-up in the office in one week.
[2022-06-02 11:37] LABS: Glucose,Whole Blood 143 mg/dL (70-110)
--- NOTE | 2022-06-02 11:40 | P.NPCON ---
History of Present Illness - Reason for Consult acute renal failure, chronic renal failure - History of Present Illness Reason for consultation: Acute kidney injury on chronic kidney disease History of present illness: Patient is a 37-year-old female seen in consultation for acute kidney injury on chronic kidney disease. Creatinine was 3.86 on admission and is 2.95 today. Patient has chronic kidney disease stage IV secondary to obstructive uropathy. Patient has history of nephrolithiasis and has required ureteral stenting. She is noted to have right kidney atrophy. Patient presented to the hospital due to abscess on her back. Patient is mostly bedbound and has history of stroke. She underwent open exploration with drainage of large right renal abscess and debridement of necrotic tissue by urology. She is on IV antibiotics. Patient has history of diabetes. Patient did suffer a brief episode of cardiac arrest this admission and required CPR. She was on vasopressor support and then s ubsequently transferred out of the ICU. Her blood pressures are fairly stable on the lower side. She is on oral Lasix. She is nonoliguric. Oral intake is fair. Denies any vomiting or diarrhea. CAT scan done this admission showed masslike infiltration of the right kidney. Vital signs are stable. General: No acute distress. HEENT: Head exam is unremarkable. LUNGS: No audible rhonchi or wheezes. HEART: Rate and Rhythm are regular. ABDOMEN: Obese. No drainage. EXTREMITITES: No edema. Past Medical History Past Medical History: CVA/TIA, Deep Vein Thrombosis (DVT), Myocardial Infarction ([place]) Additional Past Medical History / Comment(s): morbid obesity, pancreatitis, history of coma - 10/24/14 - until end of december after suffering from a stroke. Last Myocardial Infarction Date:: 10/2014 History of Any Multi-Drug Resistant Organisms: ESBL, Other MDRO Date of last positivie culture/infection: 07/16/20 ESBL E.coli MDRO Source:: Urine-ESBL Past Surgical History: Cholecystectomy Additional Past Surgical History / Comment(s): Cystoscopy with placement of left double-J catheter 02/16/2018, Gastric bypass 2016 Past Anesthesia/Blood Transfusion Reactions: No Reported Reaction Past Psychological History: Anxiety, Depression, Panic Disorder Smoking Status: Never smoker Past Alcohol Use History: None Reported Additional Past Alcohol Use History / Comment(s): patient smoked in high school Past Drug Use History: Marijuana - Past Family History Father History Unknown: Yes Family Medical History: Cancer Additional Family Medical History / Comment(s): lung Medications and Allergies Home Medications Medication Instructions Recorded Confirmed Type FLUoxetine HCL [PROzac] 20 mg PO DAILY 02/15/18 05/21/22 History Levothyroxine Sodium [Synthroid] 25 mcg PO HS@199902/15/18 05/21/22 History Multivitamins, Thera [Multivitamin 1 tab PO DAILY 02/15/18 05/21/22 History (formulary)] Acetaminophen Tab [Tylenol] 650 mg PO Q6H PRN 09/03/18 05/21/22 History Baclofen 10 mg PO HS@199907/25/20 05/21/22 History Sennosides/Docusate Sodium [Senna 2 cap PO HS@199907/25/20 05/21/22 History Plus 8.6-50 mg Softgel] Atorvastatin [Lipitor] 20 mg PO HS@199909/29/20 05/21/22 History Darbepoetin Kurtis [Aranesp] 25 m[place]Q [place]@22001/26/21 05/21/22 History Norethindrone [Chani] 0.35 mg PO DAILY 01/26/21 05/21/22 History Sodium Bicarbonate 650 mg PO BID@0800,199902/06/22 05/21/22 History polyethylene glycoL 3350 [Miralax] 17 gm PO DAILY 02/06/22 05/21/22 History Furosemide [Lasix] 80 mg PO DAILY tab 02/19/22 05/21/22 Rx Metoprolol Succinate (ER) [Toprol 50 mg PO DAILY tab 02/19/22 05/21/22 Rx XL] Apixaban [Eliquis] 2.5 mg PO BID@0800,199905/21/22 05/21/22 History Cholecalciferol [Vitamin D3 (25 75 mcg PO DAILY 05/21/22 05/21/22 History Mcg = 1000 Iu)] Ferrous Sulfate [Feosol] 325 mg PO BID@0800,199905/21/22 05/21/22 History Chlorhexidine Gluconate [Peridex] 15 ml MUCOUS MEM BID ml 06/01/22 Rx Famotidine [Pepcid] 20 mg PO DAILY tab 06/01/22 Rx HYDROcodone/APAP 7.5-325MG [[place] 1 tab PO Q8H PRN #9 tab 06/01/22 Rx 7.5-325] INSULIN ASPART (NovoLOG) [NovoLOG 0 unit SQ Q6HR each 06/01/22 Rx (formulary)] Insulin Detemir (Levemir) [Levemir] 20 unit SQ HS each 06/01/22 Rx Meropenem [Merrem] 1 gm IVPB Q12H #28 each 06/01/22 Rx Midodrine [ProAmatine] 10 mg PO AC-TID tab 06/01/22 Rx QUEtiapine [SEROquel] 25 mg PO BID PRN tab 06/01/22 Rx QUEtiapine [SEROquel] 50 mg PO HS tab 06/01/22 Rx clonazePAM [KlonoPIN] 0.25 mg PO HS #3 tab 06/01/22 Rx Allergies Allergy/AdvReac Type Severity Reaction Status Date / Time aspirin Allergy Rash/Hives Verified 05/21/22 16:14 sertraline HCl [From Zoloft] Allergy Unknown Verified 05/21/22 16:14 zolpidem tartrate Allergy Unknown Verified 05/21/22 16:14 [From Ambien] gabapentin [From Neurontin] AdvReac Severe SEVERE Verified 05/21/22 16:14 AGITATION ibuprofen [From Motrin] AdvReac AVOIDS D/T Verified 05/21/22 16:14 KIDNEY FUNCTION Physical Exam Vitals: Vital Signs Temp Pulse Resp BP Pulse Ox 06/02/22 07:02 97.9 F 68 16 98/64 95 06/02/22 02:00 97.8 F 77 17 92/55 100 06/01/22 14:00 98.1 F 84 15 107/82 100 Intake and Output 06/01/22 06/02/22 06/02/22 22:59 06:59 14:59 Output Total 300 500 Balance -300 -500 Output: Urine 300 500 Other: Voiding Method External Catheter Results - Lab Results Most recent lab results ABG pH 7.25 (7.35-7.45) L 05/29/22 05:59 ABG pCO2 39 mmHg (35-45) 05/29/22 05:59 ABG pO2 129 mmHg (83-108) H 05/29/22 05:59 ABG HCO3 17 mmol/L (21-25) L 05/29/22 05:59 ABG O2 Saturation 98.9 % (94-97) H 05/29/22 05:59 Calcium 8.2 mg/dL (8.4-10.2) L 06/01/22 07:26 Magnesium 2.0 mg/dL (1.6-2.3) 05/29/22 03:48 06/01/22 07:26 06/01/22 07:26 Assessment and Plan Plan: Assessment: 1. Acute kidney injury secondary to vasomotor nephropathy secondary to severe sepsis. Creatinine peaked at 4.07 this admission is 2.95 today. Nonoliguric. 2. Right perirenal abscess status post drainage this admission. On antibiotics. 3. Chronic kidney disease stage IV with baseline creatinine near 3 secondary to obstructive uropathy and diabetic kidney disease. 4. Hypokalemia from diuresis. Replaced. Improved. 5. Diabetes mellitus. 6. Metabolic acidosis secondary to acute kidney injury. Improved. On oral bicarbonate. 7. History of CVA. 8. Anemia of chronic kidney disease maintained on Aranesp. 9. History of nephrolithiasis requiring urologic intervention. Plan: Encouraged oral intake. Maintain oral Lasix. Maintain midodrine. Check iron studies. Avoid nephrotoxins. Patient was cleared for PICC line placement but pulled it out yesterday. Will need another line. Thank you for the consultation. I will continue to follow the patient with you during her hospital stay.
[2022-06-02] MEDS: NON FORMULARY DRUG (Norethindrone [Camila] 0.35 MG Tablet) PO SCH (11:53)
[2022-06-02] MEDS: CHLORHEXIDINE GLUCONATE 15 ML CUP MUCOUS MEM SCH (11:54)
[2022-06-02] MEDS: CHOLECALCIFEROL 25 MCG (1000 IU) TABLET PO SCH (12:02)
[2022-06-02] MEDS: FLUoxetine HCL 20 MG CAP PO SCH (12:02)
[2022-06-02] MEDS: polyethylene glycoL 3350 17 GM POWD.PACK PO SCH (12:03)
[2022-06-02] MEDS: SODIUM BICARBONATE TAB 650 MG TAB PO SCH (12:03)
[2022-06-02] MEDS: METOPROLOL SUCCINATE (ER) 50 MG TAB.ER.24H PO SCH (12:03)
[2022-06-02] MEDS: FUROSEMIDE 80 MG TAB PO SCH (12:03)
[2022-06-02] MEDS: FERROUS SULFATE 325 MG TAB PO SCH (12:03)
[2022-06-02] MEDS: FAMOTIDINE 20 MG TAB PO SCH (12:03)
[2022-06-02] MEDS: MULTIVITAMINS, THERA 1 EACH TAB PO SCH (12:03)
[2022-06-02] MEDS: MEROPENEM 1 GM in SODIUM CHLORIDE 0.9% 100 ML IVPB SCH (14:03)
[2022-06-03 08:22] LABS: % Iron Saturation 43.22 (12.00-45.00)
--- NOTE | 2022-06-03 16:41 | P.DS ---
Providers Date of admission: 05/22/22 04:45 Attending physician: Dennis Stacy Consults: 05/21/22 18:43 Consult Physician Urgent Consulting Provider: Bhupendra Cloud Consult Reason/Comments: Right flank mass vs developing abscess Do you want consulting provider notified?: Yes 05/21/22 22:07 Consult Physician Urgent Consulting Provider: Ray Solano Consult Reason/Comments: ICU Placement/Cardiac Arrest Do you want consulting provider notified?: Already Contacted 05/22/22 07:57 Consult Physician Urgent Consulting Provider: Aubrey Moore Consult Reason/Comments: englarged kidney, possible mass Do you want consulting provider notified?: Yes 05/28/22 11:01 Consult Physician Stat Consulting Provider: Cj Stock Consult Reason/Comments: Surgical clearence Do you want consulting provider notified?: Already Contacted 05/28/22 13:51 Consult Physician Stat Consulting Provider: Ray Solano Consult Reason/Comments: unable to extubate in pacu Do you want consulting provider notified?: Already Contacted 05/30/22 15:44 Consult Physician Routine Consulting Provider: Moncho Brown Consult Reason/Comments: Visual hallucinations. Psych history Do you want consulting provider notified?: Yes 06/01/22 13:24 Consult Physician Routine Consulting Provider: Donnie Felder Consult Reason/Comments: needs a picc line. Do you want consulting provider notified?: Already Contacted Primary care physician: [facility] Course: Final Diagnosis -Infected hematoma at right renal bed found to be perinephric abscess with sepsis present on admission. Patient had meme pus drained from the perinephric area with culture showing klebsiella pneuominae and proteus miribilis. IV meropenem on discharge -PEA and cardiac arrest witnessed lasting 3 minutes. CPR and 1 amp of epi given. Patient required ICU care and vasopressor support. -Combination of septic shock and hypovolemic shock from bleeding./Hematoma. -Acute hypoxic respiratory failure from combination of obesity hypoventilation, questionable pneumonia. status post ventilator. -Chronic hypoxic respiratory failure on 2L nasal cannula outpatient -Hx of Chronic DVT multiple anticoagulated with eliquis -Chronic medical debility, patient is not ambulatory -Anemia of chronic kidney disease iron studies done and pending nephrology f/u outpatient. -Chronic left hand contracture, right foot drop -History of hyperlipidemia -History of hypothyroidism -Obesity -Diabetes mellitus type 2, chronic on insulin -Chronic pain in the left hand and lower back. -Anxiety depression -Bilateral nonobstructing renal calculi,-asymptomatic -Chronic kidney disease stage 4 from obstructive uropathy with a history of left ureteral stent. -Chronic Right renal atrophy -Hx gastric bypass with stroke and NH following. Patient has cognitive impairment. Full Code Discharge Disposition Patient is stable for discharge back to [facility]. Patient has midline in place and to continue on IV meropenem for 28 days. Recommend repeat labs in 2 to 3 days. Patient to follow up with Dr. Cloud infectious disease. Daily wet to dry dressing with Kerlix packing, cover with ABDs. Resume eliquis when no further bleeding from wound care changes. Patient to also follow up with urology on discharge in 1 week. Patient to follow up iron studies and nephrology -Dr. Felder on discharge. Hospital Course This is a 37 year old female history of chronic respiratory failure, anemia, DVT, hypertension. Also with history of chronic right atrophic kidney. Patient was brought in from [facility] with concern for sepsis. Patient was found to have infected hematoma at the right renal bed and presented with eccyhmosis along the right flank. Patient is chronically anticoagulated with eliquis. Patient's hospital stay was compensated by PEA and cardiac arrest that was witnessed in the emergency room lasting for 3 minutes patient was given an amp of epinephrine and ACLS protocol was done. Patient was in ICU post requiring vasopressor support with IV we will fed and was intubated on mechanical ventilator. Patient was successfully extubated and was weaned down to her home oxygen at 2 L nasal cannula. Patient had hemoglobin of 6.7 on admission and was given blood transfusion. The infected hematoma was open and was outwardly draining. Blood culture was positive for staphylococcus hemolytic. Wound culture was positive for klebsiella pneumoniae and proteus miribilis. Patient on 05/28/22 had meme pus drained from the perinephric space. Packed with iodine soaked gauze. Patient was evaluated by infectious disease. had PICC line in place for outpatient IV antibiotics recommending IV meropenem for 28 days. Patient unfortunately removed PICC line and had midline placed for discharge. Kidney function improved and creatinine down to 2.95. Nephrology ordered iron studies this can be followed outpatient. Please refer to Dr. Stacy discharge summary for additional information. 06/02/2022 Patient evaluated today on medical floor. Had pulled PICC line out overnight. Receiving midline today and plan to discharge to ECF with current recommendations in place. Patient reports on acute complaints overnight. Dressing intact. Indwelling catheter has been removed and on 06/01/22 and patient has passed voiding trial. Needs to see urology in 1 week, nephrology in 1 week, infectious disease in 1 week on discharge. Most recent labs showing white count of 6.3, hgb 7.9, BUN 53, creatinine 2.95. Iron studies pending. Patient is afebrile, heart rate 68, blood pressure 98/64, 98% on 2L nasal cannula. Alert and oriented, appropriate. Lungs are clear, S1 S2 auscultated abdomen soft and nontender normoactive bowel sounds. Please see medication reconciliation for a list of current medication. Thank you for allowing us to participate in the care of this patient. The impression and plan of care has been dictated by Sabina Reed, Nurse Practitioner as directed. Dr. Jermaine MD I have performed a history and physical examination and medical decision making of this patient, discussed the same with the dictator, and agree with the dictators assessment and plan as written, documented as a scribe. Based on total visit time, I have performed more than 50% of this visit. Patient Condition at Discharge: Fair Plan - Discharge Summary New Discharge Prescriptions: New Chlorhexidine Gluconate [Peridex] 15 ml MUCOUS MEM BID ml QUEtiapine [SEROquel] 25 mg PO BID PRN tab PRN Reason: Agitation Or Acute Psychosis Meropenem [Merrem] 1 gm IVPB Q12H #28 each Insulin Detemir (Levemir) [Levemir] 20 unit SQ HS each INSULIN ASPART (NovoLOG) [NovoLOG (formulary)] 0 unit SQ Q6HR each Famotidine [Pepcid] 20 mg PO DAILY tab Midodrine [ProAmatine] 10 mg PO AC-TID tab QUEtiapine [SEROquel] 50 mg PO HS tab Continue FLUoxetine HCL [PROzac] 20 mg PO DAILY Multivitamins, Thera [Multivitamin (formulary)] 1 tab PO DAILY Levothyroxine Sodium [Synthroid] 25 mcg PO HS@2000 Acetaminophen Tab [Tylenol] 650 mg PO Q6H PRN PRN Reason: Pain Sennosides/Docusate Sodium [Senna Plus 8.6-50 mg Softgel] 2 cap PO HS@1999 polyethylene glycoL 3350 [Miralax] 17 gm PO DAILY Metoprolol Succinate (ER) [Toprol XL] 50 mg PO DAILY tab Baclofen 10 mg PO HS@1999 Atorvastatin [Lipitor] 20 mg PO HS@1999 Norethindrone [Chani] 0.35 mg PO DAILY Darbepoetin Kurtis [Aranesp] 25 mcg SQ MO@220 Sodium Bicarbonate 650 mg PO BID@799,1999 Furosemide [Lasix] 80 mg PO DAILY tab Cholecalciferol [Vitamin D3 (25 Mcg = 1000 Iu)] 75 mcg PO DAILY Apixaban [Eliquis] 2.5 mg PO BID@799,1999 Ferrous Sulfate [Feosol] 325 mg PO BID@799,1999 HYDROcodone/APAP 7.5-325MG [[place] 7.5-325] 1 tab PO Q8H PRN #9 tab PRN Reason: Pain Changed clonazePAM [KlonoPIN] 0.25 mg PO HS #3 tab Discontinued Insulin Glargine,Hum.rec.anlog [Lantus Solostar Pen] 27 unit SQ HS@1999 clomiPRAMINE [Anafranil] 50 mg PO HS@1999 Magnesium Hydroxide [Milk of Magnesia] 2,400 mg PO Q72H PRN PRN Reason: Constipation Melatonin 5 mg PO HS@1999 Discharge Medication List FLUoxetine HCL [PROzac] 20 mg PO DAILY 02/15/18 [History] Levothyroxine Sodium [Synthroid] 25 mcg PO HS@199902/15/18 [History] Multivitamins, Thera [Multivitamin (formulary)] 1 tab PO DAILY 02/15/18 [History] Acetaminophen Tab [Tylenol] 650 mg PO Q6H PRN 09/03/18 [History] Baclofen 10 mg PO HS@199907/25/20 [History] Sennosides/Docusate Sodium [Senna Plus 8.6-50 mg Softgel] 2 cap PO HS@199907/25/20 [History] Atorvastatin [Lipitor] 20 mg PO HS@199909/29/20 [History] Darbepoetin Kurtis [Aranesp] 25 mcg SQ MO@2200 01/26/21 [History] Norethindrone [Chani] 0.35 mg PO DAILY 01/26/21 [History] Sodium Bicarbonate 650 mg PO BID@799,199902/06/22 [History] polyethylene glycoL 3350 [Miralax] 17 gm PO DAILY 02/06/22 [History] Furosemide [Lasix] 80 mg PO DAILY tab 02/19/22 [Rx] Metoprolol Succinate (ER) [Toprol XL] 50 mg PO DAILY tab 02/19/22 [Rx] Apixaban [Eliquis] 2.5 mg PO BID@799,199905/21/22 [History] Cholecalciferol [Vitamin D3 (25 Mcg = 1000 Iu)] 75 mcg PO DAILY 05/21/22 [History] Ferrous Sulfate [Feosol] 325 mg PO BID@799,199905/21/22 [History] Chlorhexidine Gluconate [Peridex] 15 ml MUCOUS MEM BID ml 06/01/22 [Rx] Famotidine [Pepcid] 20 mg PO DAILY tab 06/01/22 [Rx] HYDROcodone/APAP 7.5-325MG [[place] 7.5-325] 1 tab PO Q8H PRN #9 tab 06/01/22 [Rx] INSULIN ASPART (NovoLOG) [NovoLOG (formulary)] 0 unit SQ Q6HR each 06/01/22 [Rx] Insulin Detemir (Levemir) [Levemir] 20 unit SQ HS each 06/01/22 [Rx] Meropenem [Merrem] 1 gm IVPB Q12H #28 each 06/01/22 [Rx] Midodrine [ProAmatine] 10 mg PO AC-TID tab 06/01/22 [Rx] QUEtiapine [SEROquel] 25 mg PO BID PRN tab 06/01/22 [Rx] QUEtiapine [SEROquel] 50 mg PO HS tab 06/01/22 [Rx] clonazePAM [KlonoPIN] 0.25 mg PO HS #3 tab 06/01/22 [Rx] Follow up Appointment(s)/Referral(s): Moncho Suarez DO [Primary Care Provider] - 1-2 days (Please call for appointment.) Esperanzae Wyatt, [NON-STAFF] - 1 Week Pedro Luis,Sajjad, MD [STAFF PHYSICIAN] - 1 Week (Office closed at time of discharge. Please call for appointment.) Aubrey Moore MD [STAFF PHYSICIAN] - 1 Week (Office is closed at time of discharge. Please call for appointment.) Ambulatory/Diagnostic Orders: Basic Metabolic Panel [LAB.AMB] Time Frame: 3 Days, Location: None Selected Complete Blood Count w/diff [LAB.AMB] Time Frame: 3 Days, Location: None Selected Activity/Diet/Wound Care/Special Instructions: Daily wet to dry dressing with Kerlix packing, cover with ABDs. Resume eliquis went no further bleeding from wound care changes Discharge Disposition: TRANSFER TO SNF/ECF
--- NOTE | 2022-06-08 14:57 | P.PN ---
Subjective Progress Note Date: 06/02/22 Principal diagnosis: Right flank abscess/hematoma and bacteremia Patient is a 37-year-old female with a past medical history significant for CVA TIA DVT morbid obesity history of recurrent UTI patient presenting to the ER with concern for right flank pain, patient did have abnormal CT concerning for increasing mass to the right kidney area , patient has been diagnosed with right perinephric abscess and the patient is status post surgical drainage completed on 05/28/2022 On today's evaluation of that is 06/02/2022, the patient continues to be afebrile, the patient is breathing comfortably on 2 L nasal cannula oxygen, patient is more awake and alert : The patient denies chest pain shortness of the coughing and complaining of pain to the right flank area no vomiting or diarrhea, the patient unfortunately has pulled out her PICC line Objective - Vital Signs Vital signs: Vital Signs Temp 97.9 F 06/02/22 07:02 Pulse 68 06/02/22 07:02 Resp 16 06/02/22 07:02 BP 98/64 06/02/22 07:02 Pulse Ox 95 06/02/22 07:02 FiO2 30 05/30/22 08:00 Intake & Output 06/01/22 06/02/22 06/02/22 18:59 06:59 18:59 Output Total 300 500 Balance -300 -500 Weight 106.4 kg Output: Urine 300 500 Other: Voiding Method Indwelling Catheter External Catheter - Exam GENERAL DESCRIPTION: A middle-aged female lying in bed in no distress RESPIRATORY SYSTEM: Unlabored breathing , decreased breath sounds at bases HEART: S1 S2 regular rate and rhythm , ABDOMEN: Soft , no tenderness , Exam completed with the help of IMMIGRATION INVESTIGATOR - Labs CBC & Chem 7: 06/01/22 07:26 06/01/22 07:26 Labs: Abnormal Lab Results - Last 24 Hours (Table) 06/01/22 06/02/22 Range/Units 23:48 06:16 POC Glucose (mg/dL) 128 H 69 L (70-110) mg/dL Microbiology - Last 24 Hours (Table) 05/26/22 16:43 Blood Culture - Final Blood No Growth after 144 hours 05/28/22 12:47 Gram Stain - Final Kidney Wound Culture - Final Klebsiella pneumoniae Proteus mirabilis 05/28/22 12:47 Anaerobic Culture - Final Kidney Assessment and Plan (1) Positive blood culture Status: Acute Code(s): R78.81 - BACTEREMIA SNOMED Code(s): 355646539 (2) Abscess of flank Status: Acute Code(s): L02.211 - CUTANEOUS ABSCESS OF ABDOMINAL WALL SNOMED Code(s): 94871144 Plan: 1patient presented to the hospital with sepsis in this patient who did have a fever elevated white count has been complaining of flank pain with evidence of possible renal abscess/pyelonephritis likely from enteric gram-negative pathoge n. Patient also have a positive blood culture with staph epi has been finalized with staphylococcus hemolyticus, repeat CT did not show any worsening however patient did have spontaneous drainage of this infected hematoma and the patient is status post open drainage of the abscess and debridement of necrotic tissue by urology completed on 05/28/2022 cultures currently growing 2 different gram-negative, and has been finalized with ESBL Klebsiella and Proteus mirabilis 2plan is to continue with meropenem 2 weeks on discharge , try to obtain midline as it is a weekend and PICC line cannot be please discuss with the nursing staff This was a tele health visit Time with Patient: Less than 30
== END 2022-06-02 15:07 | DRG 710 ==
LOC: EC 15:26 → 6NMEDSUR 18:29 → 2SICU 20:03 → OBSVTOIN 05-22 04:45 → 4SSUR 05-24 04:41 → 2SICU 05-24 06:21 → 5NMEDONC 05-25 12:06 → 2SICU 05-28 12:52 → 4SSUR 05-30 13:22
PROVIDERS: ADMIT Hospitalist; ATTEND Hospitalist
DX: A41.59 Other Gram-negative sepsis (principal); J96.21 Acute and chronic respiratory failure with hypoxia; N15.1 Renal and perinephric abscess; R65.21 Severe sepsis with septic shock; I46.9 Cardiac arrest, cause unspecified; E87.20 Acidosis, unspecified; Z68.41 Body mass index [BMI] 40.0-44.9, adult; R53.81 Other malaise; W19.XXXA Unspecified fall, initial encounter; N17.0 Acute kidney failure with tubular necrosis; N13.9 Obstructive and reflux uropathy, unspecified; L02.211 Cutaneous abscess of abdominal wall; E87.6 Hypokalemia; R57.1 Hypovolemic shock; E28.2 Polycystic ovarian syndrome; N93.9 Abnormal uterine and vaginal bleeding, unspecified; E66.2 Morbid (severe) obesity with alveolar hypoventilation; D63.1 Anemia in chronic kidney disease; M24.542 Contracture, left hand; M21.371 Foot drop, right foot; J18.9 Pneumonia, unspecified organism; E78.5 Hyperlipidemia, unspecified; E03.9 Hypothyroidism, unspecified; E11.22 Type 2 diabetes mellitus with diabetic chronic kidney disease; I12.9 Hypertensive chronic kidney disease with stage 1 through stage 4 chronic kidney disease, or unspecified chronic kidney disease; N18.4 Chronic kidney disease, stage 4 (severe); G89.29 Other chronic pain; M79.642 Pain in left hand; M54.50 Low back pain, unspecified; F41.9 Anxiety disorder, unspecified; S37.011A Minor contusion of right kidney, initial encounter; F32.A Depression, unspecified; N20.0 Calculus of kidney; F41.0 Panic disorder [episodic paroxysmal anxiety]; T50.2X5A Adverse effect of carbonic-anhydrase inhibitors, benzothiadiazides and other diuretics, initial encounter; M62.838 Other muscle spasm; R44.1 Visual hallucinations; R41.0 Disorientation, unspecified; I69.351 Hemiplegia and hemiparesis following cerebral infarction affecting right dominant side; Y92.129 Unspecified place in nursing home as the place of occurrence of the external cause; I69.319 Unspecified symptoms and signs involving cognitive functions following cerebral infarction; Z98.84 Bariatric surgery status; Z74.01 Bed confinement status; Z87.440 Personal history of urinary (tract) infections; Z86.718 Personal history of other venous thrombosis and embolism; Z79.899 Other long term (current) drug therapy; Z79.4 Long term (current) use of insulin; Z79.890 Hormone replacement therapy; Z79.01 Long term (current) use of anticoagulants; Z99.81 Dependence on supplemental oxygen; I25.2 Old myocardial infarction; Z86.16 Personal history of COVID-19; Z88.8 Allergy status to other drugs, medicaments and biological substances; Z88.6 Allergy status to analgesic agent
CPT/HCPCS: 36410; 36415; 36573; 36600; 71045; 74176; 76770; 76937; 80048; 80053; 81001; 81025; 82533; 82728; 82805; 83540; 83550; 83605; 83735; 83880; 84145; 84443; 84484; 84703; 85025; 85027; 85610; 85652; 85730; 86140; 86850; 86900; 86901; 86920; 87040; 87070; 87075; 87077; 87086; 87186; 87205; 93005; 94002; 94003; 94640; 94760; 96361; 96365; 96375; 99291

== ENCOUNTER 2022-06-02 20:17 | Emergency (ER) | payer OTHER ==
[2022-06-02 20:28] VITALS: TEMP 98
--- NOTE | 2022-06-02 20:55 | ED ---
General Adult HPI - General Chief complaint: Anxiety Stated complaint: Anxiety, Chest Pain Time Seen by Provider: 06/02/22 20:30 Source: patient, EMS, RN notes reviewed, old records reviewed Mode of arrival: EMS Limitations: altered mental status, physical limitation - History of Present Illness Initial comments: 37-year-old female presenting by EMS for evaluation of chest pain. The patient denies any chest pain or any history of chest pain where she does report back pain. She had recent prolonged hospital admission which was quite complicated and she had an incision and drainage of right flank abscess. She has a dressing over this area. She does not report any fever although I'm not confident that the patient was able to give a detailed history. She currently has no complaints of chest pain, no difficulty breathing. No abdominal pain. Patient currently resides at a long-term care facility. - Related Data Home Medications Medication Instructions Recorded Confirmed FLUoxetine HCL [PROzac] 20 mg PO DAILY 02/15/18 05/21/22 Levothyroxine Sodium [Synthroid] 25 mcg PO HS@199902/15/18 05/21/22 Multivitamins, Thera [Multivitamin 1 tab PO DAILY 02/15/18 05/21/22 (formulary)] Acetaminophen Tab [Tylenol] 650 mg PO Q6H PRN 09/03/18 05/21/22 Baclofen 10 mg PO HS@199907/25/20 05/21/22 Sennosides/Docusate Sodium [Senna 2 cap PO HS@199907/25/20 05/21/22 Plus 8.6-50 mg Softgel] Atorvastatin [Lipitor] 20 mg PO HS@199909/29/20 05/21/22 Darbepoetin Kurtis [Aranesp] 25 mcg SQ MO@2200 01/26/21 05/21/22 Norethindrone [Chani] 0.35 mg PO DAILY 01/26/21 05/21/22 Sodium Bicarbonate 650 mg PO BID@0800,199902/06/22 05/21/22 polyethylene glycoL 3350 [Miralax] 17 gm PO DAILY 02/06/22 05/21/22 Apixaban [Eliquis] 2.5 mg PO BID@0800,199905/21/22 05/21/22 Cholecalciferol [Vitamin D3 (25 75 mcg PO DAILY 05/21/22 05/21/22 Mcg = 1000 Iu)] Ferrous Sulfate [Feosol] 325 mg PO BID@0800,199905/21/22 05/21/22 Previous Rx's Medication Instructions Recorded Furosemide [Lasix] 80 mg PO DAILY tab 02/19/22 Metoprolol Succinate (ER) [Toprol 50 mg PO DAILY tab 02/19/22 XL] Chlorhexidine Gluconate [Peridex] 15 ml MUCOUS MEM BID ml 06/01/22 Famotidine [Pepcid] 20 mg PO DAILY tab 06/01/22 HYDROcodone/APAP 7.5-325MG [[place] 1 tab PO Q8H PRN #9 tab 06/01/22 7.5-325] INSULIN ASPART (NovoLOG) [NovoLOG 0 unit SQ Q6HR each 06/01/22 (formulary)] Insulin Detemir (Levemir) [Levemir] 20 unit SQ HS each 06/01/22 Meropenem [Merrem] 1 gm IVPB Q12H #28 each 06/01/22 Midodrine [ProAmatine] 10 mg PO AC-TID tab 06/01/22 QUEtiapine [SEROquel] 25 mg PO BID PRN tab 06/01/22 QUEtiapine [SEROquel] 50 mg PO HS tab 06/01/22 clonazePAM [KlonoPIN] 0.25 mg PO HS #3 tab 06/01/22 Allergies Allergy/AdvReac Type Severity Reaction Status Date / Time aspirin Allergy Rash/Hives Verified 05/21/22 16:14 sertraline HCl [From Zoloft] Allergy Unknown Verified 05/21/22 16:14 zolpidem tartrate Allergy Unknown Verified 05/21/22 16:14 [From Ambien] gabapentin [From Neurontin] AdvReac Severe SEVERE Verified 05/21/22 16:14 AGITATION ibuprofen [From Motrin] AdvReac AVOIDS D/T Verified 05/21/22 16:14 KIDNEY FUNCTION Review of Systems ROS Statement: Those systems with pertinent positive or pertinent negative responses have been documented in the HPI. ROS Other: All systems not noted in ROS Statement are negative. Past Medical History Past Medical History: CVA/TIA, Deep Vein Thrombosis (DVT), Myocardial Infarction ([place]) Additional Past Medical History / Comment(s): morbid obesity, pancreatitis, history of coma - 9/13/15 - until end of december after suffering from a stroke. Last Myocardial Infarction Date:: 10/2014 History of Any Multi-Drug Resistant Organisms: ESBL, Other MDRO Date of last positivie culture/infection: 07/16/20 ESBL E.coli MDRO Source:: Urine-ESBL Past Surgical History: Cholecystectomy Additional Past Surgical History / Comment(s): Cystoscopy with placement of left double-J catheter 02/16/2018, Gastric bypass 2016 Past Anesthesia/Blood Transfusion Reactions: No Reported Reaction Past Psychological History: Anxiety, Depression, Panic Disorder Smoking Status: Never smoker Past Alcohol Use History: None Reported Past Drug Use History: Marijuana - Past Family History Father History Unknown: Yes Family Medical History: Cancer Additional Family Medical History / Comment(s): lung General Exam Limitations: altered mental status, physical limitation General appearance: alert, in no apparent distress Head exam: Present: atraumatic, normocephalic Eye exam: Present: normal appearance, PERRL ENT exam: Present: normal exam Neck exam: Present: normal inspection. Absent: tenderness, meningismus Respiratory exam: Present: normal lung sounds bilaterally. Absent: respiratory distress, wheezes Cardiovascular Exam: Present: regular rate, normal rhythm GI/Abdominal exam: Present: soft. Absent: distended, tenderness, guarding Back exam: Present: other (Right flank incision non-erythematous, the dressing has very minimal serosanguineous drainage without purulent drainage. No surrounding tenderness) Neurological exam: Present: alert Psychiatric exam: Present: flat affect Skin exam: Present: warm, dry Course Vital Signs 06/02/22 06/02/22 20:25 20:30 Temperature 98 F Pulse Rate 87 87 Respiratory 16 15 Rate Blood Pressure 105/62 105/62 O2 Sat by Pulse 100 99 Oximetry EKG Findings - EKG Comments: EKG Findings:: EKG: Sinus rhythm rate of 92, PA interval 173, QRS duration 85, QTC 410, no ST segment elevation or depression Medical Decision Making - Medical Decision Making Was pt. sent in by a medical professional or institution (, PA, RAILCAR SWITCHER, urgent care, hospital, or group home...) When possible be specific @ -No Did you speak to anyone other than the patient for history (EMS, parent, family, police, friend...)? What history was obtained from this source @ -No Did you review nursing and triage notes (agree or disagree)? Why? @ -I reviewed and agree with nursing and triage notes Were old charts reviewed (outside hosp., previous admission, EMS record, old EKG, old radiological studies, urgent care reports/EKG's, group home records)? Report findings @ -Review the discharge summary from 06/01. Patient currently on antibiotics, PICC line for meropenem Differential Diagnosis (chest pain, altered mental status, abdominal pain women, abdominal pain men, vaginal bleeding, weakness, fever, dyspnea, syncope, headache, dizziness, GI bleed, back pain, seizure, CVA, palpatations, mental health, musculoskeletal)? @ -not applicable EKG interpreted by me (3pts min.). @ -As above X-rays interpreted by me (1pt min.). @ -None done CT interpreted by me (1pt min.). @ -None done U/S interpreted by me (1pt. min.). @ -None done What testing was considered but not performed or refused? (CT, X-rays, U/S, labs)? Why? @ -None What meds were considered but not given or refused? Why? @ -None Did you discuss the management of the patient with other professionals (professionals i.e. , PA, RAILCAR SWITCHER, lab, RT, psych nurse, social service worker, education nurse, teacher, animal park code enforcement officer, bilingual case manager)? Give summary @ -No Was smoking cessation discussed for >3mins.? @ -No Was critical care preformed (if so, how long)? @ -No Were there social determinants of health that impacted care today? How? (Homelessness, low income, unemployed, alcoholism, drug addiction, transportation, low edu. Level, literacy, decrease access to med. care, group home, rehab)? @ -No Was there de-escalation of care discussed even if they declined (Discuss DNR or withdrawal of care, Hospice)? DNR status @ -No What co-morbidities impacted this encounter? (DM, HTN, Smoking, COPD, CAD, Cancer, CVA, ARF, Chemo, Hep., AIDS, mental health diagnosis, sleep apnea, morbid obesity)? @ -[CVA, bedbound, right flank abscess Was patient admitted / discharged? Hospital course, mention meds given and route, prescriptions, significant lab abnormalities, going to OR and other pertinent info. @ -[37-year-old female recently discharged from this facility after a prolonged hospital course. The initial report was that the patient had complained of chest pain. She is not complaining of any chest pain. Her EKG is sinus without ST segment elevation. The patient is easily redirectable and wishes to go home. Vital signs are stable. She is on antibiotics and is returning to a monitored facility. Undiagnosed new problem with uncertain prognosis? @ -No Drug Therapy requiring intensive monitoring for toxicity (Heparin, Nitro, Insulin, Cardizem)? @ -No Were any procedures done? @ -No Diagnosis/symptom? @ -[Flank pain after incision and drainage with debridement of perinephric abscess. Acute, or Chronic, or Acute on Chronic? @ -[Chronic Uncomplicated (without systemic symptoms) or Complicated (systemic symptoms)? @ -[Complicated Side effects of treatment? @ -No Exacerbation, Progression, or Severe Exacerbation? @ -No Poses a threat to life or bodily function? How? (Chest pain, [place], [place], pneumonia, PE, COPD, DKA, ARF, appy, cholecystitis, CVA, Diverticulitis, Homicidal, Suicidal, threat to staff... and all critical care pts) @ -[Abscess, cellulitis, septic shock Disposition Clinical Impression: Abscess of flank, Perinephric abscess Disposition: HOME SELF-CARE Condition: Fair Instructions (If sedation given, give patient instructions): Abscess (ED), Abscess Incision and Drainage (ED) Is patient prescribed a controlled substance at d/c from ED?: No Referrals: Moncho Suarez DO [Primary Care Provider] - 1-2 days Time of Disposition: 20:56
[2022-06-02 21:09] VITALS: RESP 16
[2022-06-02 22:36] VITALS: BP 116/90; PULSE 97
== END 2022-06-02 22:40 | disposition home or self-care (01) ==
LOC: EC 20:17
DX: L02.211 Cutaneous abscess of abdominal wall (principal); N15.1 Renal and perinephric abscess; I25.2 Old myocardial infarction; E66.01 Morbid (severe) obesity due to excess calories; Z86.73 Personal history of transient ischemic attack (TIA), and cerebral infarction without residual deficits; Z86.718 Personal history of other venous thrombosis and embolism; F41.9 Anxiety disorder, unspecified; F32.A Depression, unspecified; F12.90 Cannabis use, unspecified, uncomplicated; Z88.6 Allergy status to analgesic agent; Z88.8 Allergy status to other drugs, medicaments and biological substances; Z68.41 Body mass index [BMI] 40.0-44.9, adult; Z79.899 Other long term (current) drug therapy; Z79.01 Long term (current) use of anticoagulants
CPT/HCPCS: 93005; 99284

== ENCOUNTER → 2022-06-29 | Outpatient (CLI) | payer OTHER ==
[2022-06-29 12:26] LABS: ALT 16 U/L (4-34); African American GFR (CKD) 21 (>60 ml/min/1.73 sqM); Albumin 3.5 g/dL (3.5-5.0); Albumin/Globulin Ratio 0.8; Anion Gap 12 mmol/L; Blood Urea Nitrogen 60 mg/dL (7-17); Carbon Dioxide 22 mmol/L (22-30); Chloride 105 mmol/L (98-107); Globulin 4.3 g/dL; Glucose 222 mg/dL (74-99); Non-African American GFR(CKD) 18 (>60 ml/min/1.73 sqM); Sodium 139 mmol/L (137-145); Total Bilirubin 0.4 mg/dL (0.2-1.3); Total Protein 7.8 g/dL (6.3-8.2)
[2022-06-29 12:34] LABS: AST 23 U/L (14-36); Alkaline Phosphatase 102 U/L (38-126); Potassium 5.3 mmol/L (3.5-5.1)
[2022-06-29 12:45] LABS: T4, Free (Free Thyroxine) 1.34 ng/dL (0.78-2.19)
[2022-06-29 13:30] LABS: Anisocytosis Slight; HCT 28.5 % (34.0-46.0); HGB 8.7 gm/dL (11.4-16.0); Hypochromasia Marked; MCH 29.2 pg (25.0-35.0); MCHC 30.6 g/dL (31.0-37.0); Macrocytosis Slight; Mean Platelet Volume 7.6; Platelet Count 278 k/uL (150-450); RBC 2.99 m/uL (3.80-5.40); RDW 19.4 % (11.5-15.5); WBC 7.7 k/uL (3.8-10.6)
[2022-06-29 13:47] LABS: MCV 95.4 fL (80.0-100.0)
--- NOTE | 2022-06-29 15:56 | CT ---
EXAMINATION TYPE: CT abdomen pelvis wo con DATE OF EXAM: 06/29/2022 COMPARISON: 05/24/2022 and 05/21/2022 HISTORY: 37-year-old female L02.211, Renal mass. CT DLP: 1618.10 mGycm. Automated exposure control for dose reduction was used. TECHNIQUE: Contiguous axial scanning of the abdomen and pelvis without IV contrast. Coronal and sagit rob reconstructions performed. Technologist note: Oral contrast only due to lab values FINDINGS: Heart is borderline enlarged without pericardial effusion. Strandy atelectasis in the lower lungs wit hout pleural effusion. 2.6 cm cyst anterior left liver lobe. Cholecystectomy clips. Adrenal glands, spleen, and atrophic pancreas show no gross abnormality. There is residual prominent subcutaneous edema along the right flank with suggestion of interval inci erik and drainage of the abnormal fluid previously present posteriorly. There is persistent fluid and thickening along the posterior pararenal space but overall decreased no w measuring 1.9 cm thick versus 2.6 cm, previously. Numerous bilateral renal calculi remain, particularly on the right. Possible underlying cystic areas within the right kidney. Right kidney measures overall 8.9 cm craniocaudal versus 10.3 cm on 3. 9.8 cm on 05/24/2022. Prominent perinephric soft tissue stranding remains No dilated small bowel, free fluid, or free air. No mesenteric or retroperitoneal lymphadenopathy. Normal appendix. Moderate stool burden. No pericolonic inflammatory change. Rectum distended with st ool up to 7.1 cm wide. Bladder distended. Uterus is anteverted. Suspect visualization of both ovaries. Punctate pelvic phleb oliths. No abnormal fluid collection in the pelvis or pelvic lymphadenopathy. Bones: Accentuated lower lumbar lordosis. No osseous destructive process. IMPRESSION: 1. Interval incision and drainage of the patient's abnormal right flank subcutaneous fluid collectio n. Residual soft tissue edema and swelling with considerable improvement. 2. Abnormal right kidney redemonstrated. It continues to decrease in size currently 8.9 cm versus 9. 8 cm on 05/24/2022 and 10.3 cm on 05/21/2022. This suggests ongoing improvement though the overall appe arance remains frankly abnormal with internal areas of hypodensity. The posterior perinephric soft ti ssue thickening/fluid is decreasing as well at 1.9 cm now versus 2.6 cm, previously. Query aggressive kidney infection such as XGP. Recommend further urology evaluation. 3. Bilateral nephrolithiasis remains. No evident hydronephrosis. 4. Rectum remains distended with stool up to 7.1 cm wide. Query constipation.
== END | disposition home or self-care (01) ==
LOC: RADCTMAIN 10:40
PROVIDERS: ATTEND Family Medicine
DX: L02.211 Cutaneous abscess of abdominal wall (principal); N20.0 Calculus of kidney; R60.0 Localized edema
CPT/HCPCS: 74176; 80053; 84439; 84443; 85027